=== PATIENT | male | born 1950 | race Caucasian/White ===

== ENCOUNTER 2016-10-31 11:49 | Inpatient (IN) | payer OTHER, SELFPAY ==
[2016-10-31 12:25] VITALS: BMI 21.5
[2016-10-31] MEDS ORDERED: Albuterol-Ipratrop 3 mg / 0.5 (3 ml) UD INH STA (12:29)
[2016-10-31] MEDS ORDERED: Albuterol-Ipratrop 3 mg / 0.5 (3 ml) UD ONE (12:31)
[2016-10-31 12:48] LABS: VENOUS BLOOD GAS BASE EXCESS 1.8 mmol/L (0.0-2.0); VENOUS BLOOD GAS PCO2 37 mmHg (40-60); VENOUS BLOOD PH 7.45 (7.32-7.43)
--- NOTE | 2016-10-31 12:53 | ED PDOC ---
HPI: Chest Pain Time Seen by Provider: 10/31/16 12:10 Chief Complaint (Nursing): Chest Pain Chief Complaint (Provider): Chest Pain History Per: Patient History/Exam Limitations: no limitations Onset/Duration Of Symptoms: Hrs (x1 hour prior to arrival) Current Symptoms Are (Timing): Still Present Severity: Moderate Quality: Pressure Associated Symptoms: Dyspnea, Other (associated b/l leg swelling, chills, dry cough, fever; denies nausea). denies: Nausea Additional Complaint(s): Preet Brown is a 66 year old male, with a past medical history of asthma, congestive heart failure, chronic obstructive pulmonary disease, pulmonary embolism, and pneumonia, who presents to the emergency department for the evaluation of left-sided chest pain, that the patient has been experiencing since this morning (10/31/2016). Pain is described as a heavy pressure inclusive of labored breathing. Associated shortness of breath, bilateral leg swelling that has been present for 1 month, chills, dry cough, and a fever are currently present. Denies nausea. Of note, patient reports that he ran out of his Albuterol pump today, which he uses for his chronic obstructive pulmonary disease. Patient has also had a rash for "a long time". PMD: none specified - Risk Factors PE Risk Factors: Pos: Previous PE, CHF Neg: Recent Major Surgery, Previous DVT Past Medical History Reviewed: Historical Data, Nursing Documentation, Vital Signs Vital Signs: Last Vital Signs Temp 99.2 F 10/31/16 15:11 Pulse 105 H 10/31/16 15:31 Resp 25 H 10/31/16 15:31 BP 144/83 10/31/16 15:31 Pulse Ox 98 10/31/16 15:31 - Medical History PMH: Asthma, CHF, COPD, Pneumonia, Pulmonary Embolism Denies: Chronic Kidney Disease - Surgical History Surgical History: No Surg Hx - Family History Family History: States: [place], Diabetes - Living Arrangements Living Arrangements: Other (non-domicile) - Social History Current smoker - smoking cessation education provided: Yes (1/2 a cigarette a day) Alcohol: Occasional - Immunization History Hx Tetanus Toxoid Vaccination: No Hx Influenza Vaccination: No Hx Pneumococcal Vaccination: No - Home Medications Home Medications: Ambulatory Orders Medication Instructions Recorded Albuterol HFA [Ventolin HFA 90 2 puff IH Q4H PRN 06/03/16 mcg/actuation (8 g)] Budesonide/Formoterol Fumarate 2 puff IH Q12H 06/03/16 [Symbicort 160-4.5 Mcg Inhaler] Montelukast [Singulair] 10 mg PO HS 06/03/16 Tiotropium [Spiriva] 18 mcg IH DAILY 06/03/16 Furosemide [Lasix] 40 mg PO DAILY #0 tab 06/07/16 Levofloxacin [Levaquin] 500 mg PO DAILY #7 tablet 06/07/16 Valsartan [Diovan] 160 mg PO DAILY #0 tab 06/07/16 amLODIPine [Norvasc] 5 mg PO DAILY #0 tab 06/07/16 guaiFENesin [Mucinex [place]] 600 mg PO Q12 #20 tab 06/07/16 Albuterol HFA [Ventolin HFA 90 2 puff IH Q4H #1 puff 08/15/16 mcg/actuation (8 g)] Azithromycin [Zithromax] 250 mg PO DAILY #6 tab 08/15/16 Methylprednisolone [Medrol Dose 4 mg PO DAILY #21 tab 08/15/16 Pack (21 tabs)] - Allergies Allergies/Adverse Reactions: Allergies Allergy/AdvReac Type Severity Reaction Status Date / Time No Known Allergies Allergy Verified 02/08/16 14:22 Review of Systems ROS Statement: Except As Marked, All Systems Reviewed And Found Negative Constitutional: Positive for: Fever, Chills Cardiovascular: Positive for: Chest Pain (left-sided), Edema (b/l leg swelling for x1 month) Respiratory: Positive for: Cough, Shortness of Breath. Negative for: Sputum Gastrointestinal: Negative for: Nausea Skin: Positive for: Rash Physical Exam - Reviewed Nursing Documentation Reviewed: Yes Vital Signs Reviewed: Yes - Physical Exam Appears: Positive for: Non-toxic, No Acute Distress Head Exam: Positive for: ATRAUMATIC, NORMOCEPHALIC Skin: Positive for: Normal Color, Warm, Dry, Rash (multiple diffuse plaque lesions, chronic) Neck: Positive for: Normal, Painless ROM Cardiovascular/Chest: Positive for: Regular Rate, Rhythm, Tachycardia. Negative for: Chest Non Tender (chest wall tenderness) Respiratory: Positive for: Wheezing (b/l expiratory, diffuse wheezing), Respiratory Distress (mild). Negative for: Normal Breath Sounds (b/l coarse breath sounds) Gastrointestinal/Abdominal: Positive for: Normal Exam, Soft. Negative for: Tenderness, Distended Extremity: Positive for: Normal ROM, Swelling (b/l legs, non-pitting; stasis dermatitis) Neurologic/Psych: Positive for: Alert, Oriented - Laboratory Results Result Diagrams: 10/31/16 12:45 10/31/16 14:20 - ECG ECG: Positive for: Interpreted By Me, Viewed By Me, Discussed With Lace Stripper ECG Rhythm: Positive for: Normal QRS, Normal ST Segment, Sinus Tachycardia Rate: 125 O2 Sat by Pulse Oximetry: 94 (RA) Pulse Ox Interpretation: Normal Medical Decision Making Medical Decision Makin:10 Initial Impression: chest pain and shortness of breath w/ fever Differential Diagnoses include, but are not limited to pneumonia, influenza, chronic obstructive pulmonary disease exacerbation, and congestive heart failure. Initial Plan: * Chest X-Ray * EKG * Venous Blood Gas Shock Panel * CBC * BMP * B-Type Natriuretic Peptide * Troponin I * Influenza A/B * Blood Culture * Albuterol/Ipratropium 3 ml INH * SOLU-Medrol 125 mg IVP * Reevaluation 12:17 EKG read, rate at 125. Normal QRS, Normal ST Segment, Sinus Tachycardia. Scribe Attestation: Documented by Andry Duarte, acting as a scribe for Maverick Hsu MD. Provider Scribe Attestation: All medical record entries made by the Scribe were at my direction and personally dictated by me. I have reviewed the chart and agree that the record accurately reflects my personal performance of the history, physical exam, medical decision making, and the department course for this patient. I have also personally directed, reviewed, and agree with the discharge instructions and disposition. Disposition - Clinical Impression Clinical Impression: Pneumonia, COPD exacerbation, Sepsis - Patient ED Disposition Is Patient to be Admitted: Yes Discussed With DrFrancis: Nahun Liang Doctor Will See Patient In The: ED Counseled Patient/Family Regarding: Studies Performed, Diagnosis - Disposition Disposition Time: 15:00 Condition: FAIR - Pt Status Changed To: Hospital Disposition Of: Inpatient - Admit Certification Admit to Inpatient:: After my assessment, the patient will require hospitalization for at least two midnights. This is because of the severity of symptoms shown, intensity of services needed, and/or the medical risk in this patient being treated as an outpatient. - POA Present On Arrival: None Core Measure Indicators: Pneumonia
[2016-10-31 14:05] LABS: BASO # 0.1 K/uL (0.0-0.2); BASO % 0.4 % (0.0-2.0); EOS # 0.2 K/uL (0.0-0.7); EOS % 1.2 % (0.0-4.0); HEMATOCRIT 34.5 % (35.0-51.0); LYMPH # 2.3 K/uL (1.0-4.3); LYMPH % 16.6 % (20.0-40.0); MEAN CELL VOLUME 83.5 fl (80.0-94.0); MEAN CORPUSCULAR HEMOGLOBIN 28.5 pg (27.0-31.0); MEAN CORPUSCULAR HGB CONC 34.2 g/dL (33.0-37.0); MEAN PLATELET VOLUME 8.4 fl (7.2-11.7); MONO # 1.2 K/uL (0.0-0.8); MONO % 8.4 % (0.0-10.0); NEUT # 10.1 K/uL (1.8-7.0); NEUT % 73.4 % (50.0-75.0); NRBC % 0.1 % (0.0-0.0); RED CELL DISTRIBUTION WIDTH 15.8 % (11.5-14.5); WHITE BLOOD COUNT 13.8 K/uL (4.8-10.8)
[2016-10-31] MEDS ORDERED: Sodium Chloride 0.9% 1,000 ML IV STA (14:45)
[2016-10-31 14:55] LABS: BLOOD UREA NITROGEN 15 mg/dl (9-20); CALCIUM 8.2 mg/dL (8.4-10.2); CARBON DIOXIDE 22 mmol/L (22-30); CHLORIDE 107 mmol/L (98-107); GFR AFRICAN-AMERICAN > 60; GLUCOSE,RANDOM 113 mg/dL (75-110); POTASSIUM 4.3 MMOL/L (3.6-5.0); SODIUM 142 mmol/l (132-148)
--- NOTE | 2016-10-31 15:29 | RAD ---
PROCEDURE: CHEST RADIOGRAPH, 1 VIEW HISTORY: chest pain COMPARISON: 08/15/2016. FINDINGS: LUNGS: Clear. PLEURA: No pneumothorax or pleural fluid seen. CARDIOVASCULAR: No radiographic findings to suggest acute or significant cardiovascular disease. OSSEOUS STRUCTURES: No significant abnormalities. Old healed right rib fractures. VISUALIZED UPPER ABDOMEN: Normal. OTHER FINDINGS: None. IMPRESSION: No active disease. No acute/significant interval changes.
[2016-10-31] MEDS ORDERED: Albuterol-Ipratrop 3 mg / 0.5 (3 ml) UD INH PRN (17:10)
--- NOTE | 2016-10-31 17:55 | CP.PCM.HP ---
History of Present Illness - History of Present Illness History of Present Illness: Pt is a 66 year old male, with a past medical history of COPD , hypertension, asthma, pulmonary embolism (not on anticoagulation because of history of hematoma), presented to the emergency department for the evaluation of left- sided chest pain, that started this morning. Pain is described as a heavy pressure not changed with movement associated with inclusive shortness of breath. States everything hurts, also reports bilateral leg swelling that has been present for 1 month, chills, dry cough, and a fever are currently present. Denies nausea, vomiting, dizziness. Of note, pt also has a diffuse rash appears raised and dry and scabbed, pt reports he has had the rash for over a month, but told nurse he has had it for a couple of weeks. No other complaints otherwise PCP- Last seen in [facility] in 2011 Present on Admission - Present on Admission Any Indicators Present on Admission: No Review of Systems - Review of Systems All systems: reviewed and no additional remarkable complaints except Review of Systems: Per HPI Past Patient History - Infectious Disease Hx of Infectious Diseases: None - Tetanus Immunizations Tetanus Immunization: Unknown - Past Medical History & Family History Past Medical History?: Yes - Past Social History Smoking Status: Former Smoker Alcohol: Occasional - CARDIAC Hx Congestive Heart Failure: Yes - PULMONARY Hx Asthma: Yes Hx Chronic Obstructive Pulmonary Disease (COPD): Yes Hx Pneumonia: Yes Hx Pulmonary Embolism: Yes - NEUROLOGICAL Hx Neurological Disorder: No - HEENT Hx HEENT Problems: No - RENAL Hx Chronic Kidney Disease: No - ENDOCRINE/METABOLIC Hx Endocrine Disorders: No - HEMATOLOGICAL/ONCOLOGICAL Hx Blood Disorders: No - INTEGUMENTARY Hx Dermatological Problems: No - MUSCULOSKELETAL/RHEUMATOLOGICAL Hx Musculoskeletal Disorders: No Hx Falls: No - GASTROINTESTINAL Hx Gastrointestinal Disorders: Yes Other/Comment: GI bleeding on last admission while on anti-coagulation - GENITOURINARY/GYNECOLOGICAL Hx Genitourinary Disorders: No - PSYCHIATRIC Hx Psychophysiologic Disorder: No Hx Substance Use: No - SURGICAL HISTORY Hx Surgeries: No - ANESTHESIA Hx Anesthesia: No Meds Allergies/Adverse Reactions: Allergies Allergy/AdvReac Type Severity Reaction Status Date / Time No Known Allergies Allergy Verified 02/08/16 14:22 Physical Exam - Constitutional Appears: No Acute Distress - Head Exam Head Exam: NORMOCEPHALIC - Eye Exam Eye Exam: Normal appearance - ENT Exam ENT Exam: Mucous Membranes Moist - Respiratory Exam Respiratory Exam: Prolonged Expiratory Phase, Wheezes - Cardiovascular Exam Cardiovascular Exam: Tachycardia, +S1, +S2. absent: Systolic Murmur - GI/Abdominal Exam GI & Abdominal Exam: Normal Bowel Sounds, Soft. absent: Tenderness - Extremities Exam Extremities exam: Positive for: pedal edema. Negative for: calf tenderness Additional comments: Upper and lower extremity lesions- diffused lesion, dry, some are raised , others appear to be healing scars - Neurological Exam Neurological exam: Alert, Oriented x3 - Skin Skin Exam: Dry, Rash Results - Vital Signs Recent Vital Signs: Last Vital Signs Temp 98.9 F 10/31/16 17:49 Pulse 102 H 10/31/16 17:49 Resp 23 10/31/16 17:49 BP 138/73 10/31/16 17:49 Pulse Ox 97 10/31/16 17:36 - Labs Result Diagrams: 10/31/16 12:45 10/31/16 14:20 Assessment & Plan - Assessment and Plan (Free Text) Assessment: 66 y/o male with history of COPD, PE and bladder hematoma admitted for clinical pneumonia as no Xray finding of active disease Plan: 1. Pneumonia- CAP clinical diagnosis, no active disease on Xray Started on levaquin in ED, will continue pt currently afebrile, monitor vitals 2. Upper and Lower extremity lesions DDX include : Lichen planus vs chronic plaque psoriasis If lichen planus- hepatitis planel ordered / follow up if psoriasis - consider starting petrolatum Consider Dermatology consult, as pt may need a biopsy 3. COPD exacerbation duonebs levaquine IV, steroids IV currently on 80mg Q12hrs 4. Leg swelling Echo from 05/2016 showed EF of 65% most likely venous insufficiency lasix 40mg daily 3.History of Pulmonary embolism diagnosed with PE on previous admission pt was initially anticoagulated but developed huge retroperitoneal hematoma on the left side there is no indication for IVC filter 4.Screening for diabetes Last HgbA1c was 7.2 was not started on treatment, repeat A1c ordered for AM, follow up 5. Tachycardia if it persist consider changing albuterol to Xopenex with improvement 6. Retroperitoneal hematoma -chronic pelvic Us showed stable hematoma in front of urinary bladder, 05/2016 7.Hypertension Diovan 160 mg daily Norvasc 5 mg daily 8. DVt prophylaxis SCD, given history of hematoma
[2016-10-31 18:32] LABS: RBC URINE < 1 /hpf (0-3); URINE BILIRUBIN NEGATIVE (NEGATIVE); URINE BLOOD NEGATIVE (NEGATIVE); URINE COLOR YELLOW (YELLOW); URINE GLUCOSE (UA) NEG (Normal); URINE KETONE NEGATIVE (NEGATIVE); URINE LEUKOCYTE ESTERASE NEG Leu/uL (Negative); URINE PROTEIN 100 mg/dL (NEGATIVE); URINE UROBILINOGEN 0.2-1.0 mg/dL (0.2-1.0); WBC URINE < 1 /hpf (0-5)
--- NOTE | 2016-10-31 19:16 | CARD ---
APPROVED REPORT EKG Measurement Heart [id number] <Conclusion> Sinus tachycardia Otherwise normal ECG
[2016-10-31] MEDS: methylPREDNISolone 80 MG in Sodium Chloride 0.9% 50 ML IVPB SCH (22:20)
[2016-11-01 07:25] LABS: HEMATOCRIT 35.7 % (35.0-51.0); MEAN CELL VOLUME 84.3 fl (80.0-94.0); MEAN CORPUSCULAR HEMOGLOBIN 27.9 pg (27.0-31.0); MEAN CORPUSCULAR HGB CONC 33.1 g/dL (33.0-37.0); WHITE BLOOD COUNT 10.5 K/uL (4.8-10.8)
[2016-11-01 08:09] LABS: ALKALINE PHOSPHATASE 59 U/L (38-126); ALT/SGPT 18 U/L (21-72); AST/SGOT 18 U/L (17-59); BILIRUBIN,TOTAL 0.6 mg/dl (0.2-1.3); BLOOD UREA NITROGEN 19 mg/dl (9-20); CALCIUM 8.3 mg/dL (8.4-10.2); CARBON DIOXIDE 23 mmol/L (22-30); CHLORIDE 107 mmol/L (98-107); CHOLESTEROL 153 mg/dL (0-199); GFR AFRICAN-AMERICAN > 60; GLUCOSE,RANDOM 175 mg/dL (75-110); POTASSIUM 4.3 MMOL/L (3.6-5.0); SODIUM 142 mmol/l (132-148); TOTAL PROTEIN 6.7 G/DL (6.3-8.2)
[2016-11-01 08:11] LABS: ALB/GLOB RATIO 0.9 (1.0-2.1)
[2016-11-01] MEDS ORDERED: Enoxaparin 40 mg Syringe SC SCH (09:00)
[2016-11-01] MEDS: methylPREDNISolone 80 MG in Sodium Chloride 0.9% 50 ML IVPB SCH ×2 (09:32→21:34)
[2016-11-01] MEDS: Tiotropium 18 mcg Cap For Inhalation IH SCH (10:00)
--- NOTE | 2016-11-01 10:57 | CP.PCM.PN ---
Subjective - Date & Time of Evaluation Date of Evaluation: 11/01/16 Time of Evaluation: 08:15 - Subjective Subjective: The patient is a 66 y/o man w/ a PMH of COPD, HTN, asthma, pulmonary embolism ( not on anticoagulation because of history of hematoma), presented to the ED for evaluation of left-sided chest pain, that started this morning prior to admission. The patient was seen this morning. There are no acute events overnight. The patient is not in acute distress. The patient reports some chest pain but is more concerned about his shortness of breath. The patient did report that he was able to sleep better. The patient reports his skin rash has been going on for "a couple of weeks". The patient denies headaches, dizziness, abdominal pain, nausea, vomiting, diarrhea, dysuria, and fevers. Objective - Vital Signs/Intake and Output Vital Signs (last 24 hours): Temp Pulse Resp BP Pulse Ox 97.6 F 92 H 18 149/79 98 11/01/16 08:00 11/01/16 09:31 11/01/16 08:00 11/01/16 09:31 11/01/16 08:00 - Medications Medications: Current Medications Albuterol/Ipratropium (Duoneb 3 Mg/0.5 Mg (3 Ml) Ud) 3 ml INH RQ4 PRN PRN Reason: Shortness of Breath Amlodipine Besylate (Norvasc) 5 mg PO DAILY [facility] Last Admin: 11/01/16 09:31 Dose: 5 mg Furosemide (Lasix) 40 mg PO DAILY [facility] Last Admin: 11/01/16 09:31 Dose: 40 mg Methylprednisolone 80 mg/ (Sodium Chloride) 51.28 mls @ 100 mls/hr IVPB Q12 [facility] Last Admin: 11/01/16 09:32 Dose: 100 mls/hr Levofloxacin/Dextrose (Levaquin 500mg) 100 mls @ 100 mls/hr IVPB DAILY [facility] Last Admin: 11/01/16 10:00 Dose: 100 mls/hr Montelukast Sodium (Singulair) 10 mg PO HS [facility] Last Admin: 10/31/16 22:21 Dose: 10 mg Tiotropium [place] (Spiriva) 18 mcg IH DAILY [facility] Last Admin: 11/01/16 10:00 Dose: 18 mcg Valsartan (Diovan) 160 mg PO DAILY [facility] Last Admin: 11/01/16 09:30 Dose: 160 mg - Labs Labs: 11/01/16 06:30 11/01/16 06:30 - Constitutional Appears: No Acute Distress - Head Exam Head Exam: ATRAUMATIC, NORMOCEPHALIC - ENT Exam ENT Exam: Mucous Membranes Moist - Respiratory Exam Respiratory Exam: Prolonged Expiratory Phase, Rhonchi, Wheezes. absent: Accessory Muscle Use, Chest Wall Tenderness, Respiratory Distress, Stridor - Cardiovascular Exam Cardiovascular Exam: REGULAR RHYTHM. absent: Tachycardia - GI/Abdominal Exam GI & Abdominal Exam: Soft, Normal Bowel Sounds. absent: Distended, Tenderness - Extremities Exam Extremities Exam: Pedal Edema. absent: Calf Tenderness, Tenderness - Neurological Exam Neurological Exam: Alert, Awake, Oriented x3 - Skin Skin Exam: Dry Additional comments: Upper and lower extremity lesions, and back: dry, silvery, some skin colored, some raised, some healing scars, no pain when peeled off, no bleeding Assessment and Plan - Assessment and Plan (Free Text) Assessment: The patient is a 66 y/o man with PMH of COPD, PE and bladder hematoma admitted for clinical pneumonia. Plan: 1. Pneumonia, CAP - clinical diagnosis - CXR 10/31/2016: no active disease - On levaquin 500 mg IV daily - currently afebrile, monitor vitals 2. Skin lesions (back, upper and lower extremities) - DDX include : Lichen planus vs chronic plaque psoriasis - follow up hepatitis panel - Consider biopsy of skin lesion - Start Clobetasol topical BID 3. COPD exacerbation - Duonebs Q4 - levaquin 500 mg IV daily - methylprednisolone 80 mg IV Q12h - started home medications monteleukast 10 mg PO HS and Tiotropium bromide 18 mcg IH daily 4. Lower Extremity Edema - Echo 05/2016: EF of 65%, LV normal size, thickness, function; very mild aortic stenosis, trivial mitral regurgitation, mild aortic regurgitation, and trace tricuspid regurgitation - most likely venous insufficiency - lasix 40mg daily 5. History of Pulmonary embolism - diagnosed with PE on previous admission - initially anti-coagulated but developed huge retroperitoneal hematoma on the left side - no indication for IVC filter 6. Screening for diabetes - Last HgbA1c was 7.2 (05/02/2016) - not started on treatment - Follow up repeat A1c 7. Retroperitoneal hematoma - chronic - pelvic Us showed stable hematoma in front of urinary bladder, 05/2016 8. Hypertension - stable - Home medication restarted, Diovan 160 mg daily and Norvasc 5 mg daily 9. DVT prophylaxis - SCD, given history of hematoma
[2016-11-01] MEDS: Albuterol-Ipratrop 3 mg / 0.5 (3 ml) UD INH SCH ×5 (11:59→23:42)
[2016-11-02] MEDS: Albuterol-Ipratrop 3 mg / 0.5 (3 ml) UD INH SCH ×5 (04:57→19:15)
--- NOTE | 2016-11-02 07:30 | CP.PCM.PN ---
Subjective - Date & Time of Evaluation Date of Evaluation: 11/02/16 Time of Evaluation: 07:28 - Subjective Subjective: The patient is a 66 y/o man w/ a PMH of COPD, HTN, asthma, pulmonary embolism ( not on anticoagulation because of history of hematoma), presented to the ED for evaluation of left-sided chest pain, that started the morning prior to admission. The patient was seen this morning. There are no acute events overnight. The patient is not in acute distress. The patient is laying in bed and saturating at 96% on room air. The patient reports improvement with breathing but still has some non-productive cough. The patient reports he received last treatment around 04:00. The patient denies headaches, dizziness, abdominal pain, nausea, vomiting, diarrhea, dysuria, and fevers. Objective - Vital Signs/Intake and Output Vital Signs (last 24 hours): Temp Pulse Resp BP Pulse Ox 97.8 F 85 20 134/65 96 11/02/16 05:16 11/02/16 05:16 11/02/16 05:16 11/02/16 05:16 11/02/16 05:16 - Medications Medications: Current Medications Albuterol/Ipratropium (Duoneb 3 Mg/0.5 Mg (3 Ml) Ud) 3 ml INH RQ4 [facility] Last Admin: 11/02/16 04:57 Dose: 3 ml Amlodipine Besylate (Norvasc) 5 mg PO DAILY [facility] Last Admin: 11/01/16 09:31 Dose: 5 mg Clobetasol Propionate (Temovate Cream) 1 applic TOP BID [facility] Last Admin: 11/01/16 17:02 Dose: 1 applic Furosemide (Lasix) 40 mg PO DAILY [facility] Methylprednisolone 80 mg/ (Sodium Chloride) 51.28 mls @ 100 mls/hr IVPB Q12 [facility] Last Admin: 11/01/16 21:34 Dose: 100 mls/hr Levofloxacin/Dextrose (Levaquin 500mg) 100 mls @ 100 mls/hr IVPB DAILY [facility] Last Admin: 11/01/16 10:00 Dose: 100 mls/hr Montelukast Sodium (Singulair) 10 mg PO HS [facility] Last Admin: 11/01/16 21:34 Dose: 10 mg Tiotropium [place] (Spiriva) 18 mcg IH DAILY [facility] Last Admin: 11/01/16 10:00 Dose: 18 mcg Valsartan (Diovan) 160 mg PO DAILY [facility] Last Admin: 11/01/16 09:30 Dose: 160 mg - Labs Labs: 11/01/16 06:30 11/01/16 06:30 - Constitutional Appears: No Acute Distress - Head Exam Head Exam: ATRAUMATIC, NORMOCEPHALIC - ENT Exam ENT Exam: Mucous Membranes Moist - Respiratory Exam Respiratory Exam: Prolonged Expiratory Phase, Rhonchi. absent: Accessory Muscle Use, Chest Wall Tenderness, Respiratory Distress, Stridor Additional comments: less wheeze compared to yesterday but still rhonchorous with transmitted upper airway sounds bilaterally - Cardiovascular Exam Cardiovascular Exam: REGULAR RHYTHM. absent: Tachycardia - GI/Abdominal Exam GI & Abdominal Exam: Soft, Normal Bowel Sounds. absent: Distended, Tenderness - Extremities Exam Extremities Exam: Pedal Edema. absent: Calf Tenderness, Tenderness - Neurological Exam Neurological Exam: Alert, Awake, Oriented x3 - Skin Skin Exam: Dry Additional comments: generalized skin lesions remain unchanged, patient received clobetasol cream Assessment and Plan - Assessment and Plan (Free Text) Assessment: The patient is a 66 y/o man with PMH of COPD, PE and bladder hematoma admitted for clinical pneumonia. Plan: 1. Pneumonia, CAP - clinical diagnosis - CXR 10/31/2016: no active disease - Day 2: levaquin 500 mg IV daily - currently afebrile, monitor vitals - influenza A/B negative - blood and urine culture show no growth 2. Skin lesions (back, upper and lower extremities) - DDX include : Lichen planus vs chronic plaque psoriasis - hepatitis panel negative - Consider biopsy of skin lesion - On Clobetasol topical BID 3. COPD exacerbation - Duonebs Q4 - levaquin 500 mg IV daily - Day 2: methylprednisolone 80 mg IV Q12h - home medications: monteleukast 10 mg PO HS and Tiotropium bromide 18 mcg IH daily 4. Lower Extremity Edema - Echo 05/2016: EF of 65%, LV normal size, thickness, function; very mild aortic stenosis, trivial mitral regurgitation, mild aortic regurgitation, and trace tricuspid regurgitation - most likely venous insufficiency - lasix 40mg daily 5. Screening for diabetes - Last HgbA1c was 7.2 (05/02/2016) - not started on treatment - repeat HgA1c 6.4 6. Hypertension - stable - Home medication: Diovan 160 mg daily and Norvasc 5 mg daily 7. DVT prophylaxis - SCD, due to history of hematoma - Pelvic U/S 05/2016: stable hematoma in front of urinary bladder - diagnosed with PE on previous admission - initially anti-coagulated but developed huge retroperitoneal hematoma on the left side - no indication for IVC filter
[2016-11-02] MEDS: methylPREDNISolone 80 MG in Sodium Chloride 0.9% 50 ML IVPB SCH ×2 (08:20→22:00)
[2016-11-02] MEDS: Tiotropium 18 mcg Cap For Inhalation IH SCH (09:21)
[2016-11-03] MEDS: Albuterol-Ipratrop 3 mg / 0.5 (3 ml) UD INH SCH ×7 (00:46→23:42)
--- NOTE | 2016-11-03 07:45 | CP.PCM.PN ---
Subjective - Date & Time of Evaluation Date of Evaluation: 11/03/16 Time of Evaluation: 07:05 - Subjective Subjective: The patient is a 66 y/o man w/ a PMH of COPD, HTN, asthma, pulmonary embolism ( not on anticoagulation because of history of hematoma), presented to the ED for evaluation of left-sided chest pain, that started the morning prior to admission. The patient was seen this morning. There are no acute events overnight. The patient is not in acute distress. The patient is laying in bed and saturating at 100% on NC 2L. The patient reports improvement with breathing but still continues to have non-productive cough. The patient reports he received last treatment around 04:00. The patient also started complaining of some dysuria that started last night. The patient denies headaches, dizziness, abdominal pain, nausea, vomiting, diarrhea, and fevers. Objective - Vital Signs/Intake and Output Vital Signs (last 24 hours): Temp Pulse Resp BP Pulse Ox 97.3 F L 83 18 145/73 100 11/03/16 05:00 11/03/16 05:00 11/03/16 05:00 11/03/16 05:00 11/03/16 05:00 - Medications Medications: Current Medications Albuterol/Ipratropium (Duoneb 3 Mg/0.5 Mg (3 Ml) Ud) 3 ml INH RQ4 [facility] Last Admin: 11/03/16 05:19 Dose: 3 ml Amlodipine Besylate (Norvasc) 5 mg PO DAILY [facility] Last Admin: 11/02/16 09:21 Dose: 5 mg Clobetasol Propionate (Temovate Cream) 1 applic TOP BID [facility] Last Admin: 11/02/16 16:44 Dose: Not Given Furosemide (Lasix) 40 mg PO DAILY [facility] Last Admin: 11/02/16 09:20 Dose: 40 mg Methylprednisolone 80 mg/ (Sodium Chloride) 51.28 mls @ 100 mls/hr IVPB Q12 [facility] Last Admin: 11/02/16 22:00 Dose: 100 mls/hr Levofloxacin/Dextrose (Levaquin 500mg) 100 mls @ 100 mls/hr IVPB DAILY [facility] Last Admin: 11/02/16 09:20 Dose: 100 mls/hr Montelukast Sodium (Singulair) 10 mg PO HS [facility] Last Admin: 11/02/16 22:00 Dose: 10 mg Tiotropium [place] (Spiriva) 18 mcg IH DAILY [facility] Last Admin: 11/02/16 09:21 Dose: 18 mcg Valsartan (Diovan) 160 mg PO DAILY [facility] Last Admin: 11/02/16 09:19 Dose: 160 mg - Labs Labs: 11/01/16 06:30 11/01/16 06:30 - Constitutional Appears: No Acute Distress - Head Exam Head Exam: ATRAUMATIC, NORMOCEPHALIC - ENT Exam ENT Exam: Mucous Membranes Moist - Respiratory Exam Respiratory Exam: Prolonged Expiratory Phase, Rhonchi, Wheezes. absent: Accessory Muscle Use, Chest Wall Tenderness, Decreased Breath Sounds, Rales, Respiratory Distress, Stridor Additional comments: diffuse rhonchi and wheeze - Cardiovascular Exam Cardiovascular Exam: REGULAR RHYTHM. absent: Tachycardia - GI/Abdominal Exam GI & Abdominal Exam: Soft, Normal Bowel Sounds. absent: Distended, Tenderness - Extremities Exam Extremities Exam: absent: Calf Tenderness, Tenderness Additional comments: diffuse, scaly, dry, bilateral upper and lower extremity skin lesions improved with clobetasol - Neurological Exam Neurological Exam: Alert, Awake, Oriented x3 - Skin Skin Exam: Dry, Warm Additional comments: diffuse skin lesions on back, chest, abdomen, bilateral upper and lower extremities Assessment and Plan - Assessment and Plan (Free Text) Assessment: The patient is a 66 y/o man with PMH of COPD, PE and bladder hematoma being treated for community acquired pneumonia and COPD exacerbation Plan: 1. Pneumonia, CAP - Day 3: levaquin 500 mg IV daily - consider switch IV to PO levaquin - remains afebrile - influenza A/B negative - blood and urine culture show no growth 2. Skin lesions (back, upper and lower extremities) - DDX include : Lichen planus vs chronic plaque psoriasis - hepatitis panel negative - Consider biopsy of skin lesion - Clobetasol topical BID 3. COPD exacerbation - Duonebs Q4 - levaquin 500 mg IV daily - Day 3: methylprednisolone 80 mg IV Q12h - Reduced methylprednisolone to 40 mg IV Q12h - home medications: monteleukast 10 mg PO HS and Tiotropium bromide 18 mcg IH daily 4. Dysuria - started last night - follow up UA and urine culture 5. Lower Extremity Edema - Echo 05/2016: EF of 65%, LV normal size, thickness, function; very mild aortic stenosis, trivial mitral regurgitation, mild aortic regurgitation, and trace tricuspid regurgitation - most likely venous insufficiency - lasix 40 mg daily 6. Hyperglycemia - HgA1c 6.4 - on methylprednisolone 80 mg IV Q12h 7. Hypertension - stable - Home medication: Diovan 160 mg daily and Norvasc 5 mg daily 8. DVT prophylaxis - SCD, due to history of hematoma - Pelvic U/S 05/2016: stable hematoma in front of urinary bladder - diagnosed with PE on previous admission - initially anti-coagulated but developed huge retroperitoneal hematoma on the left side - no indication for IVC filter
[2016-11-03] MEDS: Tiotropium 18 mcg Cap For Inhalation IH SCH (09:35)
[2016-11-03] MEDS: methylPREDNISolone 40 MG in Sodium Chloride 0.9% 50 ML IVPB SCH (21:46)
[2016-11-03] MEDS: guaiFENesin 600 mg ER Tab PO SCH (21:50)
[2016-11-04] MEDS: Albuterol-Ipratrop 3 mg / 0.5 (3 ml) UD INH SCH ×4 (04:53→15:23)
--- NOTE | 2016-11-04 08:54 | CP.PCM.PN ---
Subjective - Date & Time of Evaluation Date of Evaluation: 11/04/16 Time of Evaluation: 07:25 - Subjective Subjective: The patient is a 66 y/o man w/ a PMH of COPD, HTN, asthma, pulmonary embolism ( not on anticoagulation because of history of hematoma), presented to the ED for evaluation of left-sided chest pain, that started the morning prior to admission. The patient was seen this morning. There are no acute events overnight. The patient is not in acute distress. The patient is laying in bed and saturating at 98% on room air. The patient reports improvement with breathing but still continues to have non-productive cough. Patient denies anything coming up even after mucinex. The patient continues to complain of some dysuria that started 2 nights ago. The patient denies headaches, dizziness, abdominal pain, nausea, vomiting, diarrhea, and fevers. Objective - Vital Signs/Intake and Output Vital Signs (last 24 hours): Temp Pulse Resp BP Pulse Ox 97.8 F 72 18 125/67 98 11/04/16 08:26 11/04/16 08:26 11/04/16 08:26 11/04/16 08:26 11/04/16 08:26 - Medications Medications: Current Medications Albuterol/Ipratropium (Duoneb 3 Mg/0.5 Mg (3 Ml) Ud) 3 ml INH RQ4 [facility] Last Admin: 11/04/16 07:51 Dose: 3 ml Amlodipine Besylate (Norvasc) 5 mg PO DAILY [facility] Last Admin: 11/03/16 09:35 Dose: 5 mg Clobetasol Propionate (Temovate Cream) 1 applic TOP BID [facility] Last Admin: 11/03/16 18:09 Dose: 1 applic Furosemide (Lasix) 40 mg PO DAILY [facility] Last Admin: 11/03/16 09:34 Dose: 40 mg Guaifenesin (Mucinex [place]) 1,200 mg PO Q12 [facility] Last Admin: 11/03/16 21:50 Dose: 1,200 mg Methylprednisolone 40 mg/ (Sodium Chloride) 50.64 mls @ 100 mls/hr IVPB Q12 [facility] Last Admin: 11/03/16 21:46 Dose: 100 mls/hr Levofloxacin (Levaquin) 500 mg PO DAILY [facility] Montelukast Sodium (Singulair) 10 mg PO HS [facility] Last Admin: 11/03/16 21:44 Dose: 10 mg Tiotropium [place] (Spiriva) 18 mcg IH DAILY [facility] Last Admin: 11/03/16 09:35 Dose: 18 mcg Valsartan (Diovan) 160 mg PO DAILY [facility] Last Admin: 11/03/16 09:34 Dose: 160 mg - Labs Labs: 11/01/16 06:30 11/01/16 06:30 - Constitutional Appears: No Acute Distress - Head Exam Head Exam: ATRAUMATIC, NORMOCEPHALIC - ENT Exam ENT Exam: Mucous Membranes Moist - Respiratory Exam Respiratory Exam: Prolonged Expiratory Phase, Rhonchi, Wheezes. absent: Accessory Muscle Use, Chest Wall Tenderness, Decreased Breath Sounds, Respiratory Distress, Stridor - Cardiovascular Exam Cardiovascular Exam: REGULAR RHYTHM. absent: Tachycardia - GI/Abdominal Exam GI & Abdominal Exam: Soft, Normal Bowel Sounds. absent: Distended, Tenderness - Extremities Exam Extremities Exam: absent: Calf Tenderness, Pedal Edema, Tenderness Additional comments: diffuse, scaly, dry, bilateral upper and lower extremity skin lesions continues to with clobetasol - Neurological Exam Neurological Exam: Alert, Awake, Oriented x3 - Skin Skin Exam: Dry, Intact Additional comments: diffuse skin lesions on back, chest, abdomen, bilateral upper and lower extremities Assessment and Plan - Assessment and Plan (Free Text) Assessment: The patient is a 66 y/o man with PMH of COPD, PE and bladder hematoma being treated for community acquired pneumonia and COPD exacerbation Plan: 1. Pneumonia, CAP - Day 4: levaquin 500 mg PO daily - remains afebrile - influenza A/B negative - blood and urine culture show no growth 2. Skin lesions (back, upper and lower extremities) - DDX include : Lichen planus vs chronic plaque psoriasis - hepatitis panel negative - Consider biopsy of skin lesion - Clobetasol topical BID 3. COPD exacerbation - Duonebs Q4 - levaquin 500 mg IV daily - Day 4: methylprednisolone 40 mg IV Q12h - home medications: monteleukast 10 mg PO HS and Tiotropium bromide 18 mcg IH daily 4. Dysuria - 2 nights ago - follow up UA and urine culture 5. Lower Extremity Edema - Echo 05/2016: EF of 65%, LV normal size, thickness, function; very mild aortic stenosis, trivial mitral regurgitation, mild aortic regurgitation, and trace tricuspid regurgitation - most likely venous insufficiency - lasix 40 mg daily 6. Hyperglycemia - HgA1c 6.4 - on methylprednisolone 80 mg IV Q12h 7. Hypertension - stable - Home medication: Diovan 160 mg daily and Norvasc 5 mg daily 8. DVT prophylaxis - SCD, due to history of hematoma - Pelvic U/S 05/2016: stable hematoma in front of urinary bladder - diagnosed with PE on previous admission - initially anti-coagulated but developed huge retroperitoneal hematoma on the left side - no indication for IVC filter
[2016-11-04] MEDS ORDERED: levoFLOXacin 500 MG TAB PO SCH (09:00)
[2016-11-04] MEDS: methylPREDNISolone 40 MG in Sodium Chloride 0.9% 50 ML IVPB SCH (10:25)
[2016-11-04] MEDS: guaiFENesin 600 mg ER Tab PO SCH (10:26)
[2016-11-04] MEDS: Tiotropium 18 mcg Cap For Inhalation IH SCH (10:27)
[2016-11-04 11:56] LABS: RBC URINE < 1 /hpf (0-3); URINE BILIRUBIN NEGATIVE (NEGATIVE); URINE BLOOD NEGATIVE (NEGATIVE); URINE COLOR YELLOW (YELLOW); URINE GLUCOSE (UA) >=500 mg/dL (Normal); URINE KETONE NEGATIVE (NEGATIVE); URINE LEUKOCYTE ESTERASE NEG Leu/uL (Negative); URINE PROTEIN NEGATIVE (NEGATIVE); URINE UROBILINOGEN 0.2-1.0 mg/dL (0.2-1.0); WBC URINE < 1 /hpf (0-5)
--- NOTE | 2016-11-04 14:45 | CP.PCM.DIS ---
Provider - Provider Date of Admission: 10/31/16 15:36 Attending physician: Tennille Tavares MD Time Spent in preparation of Discharge (in minutes): 30 Diagnosis - Discharge Diagnosis (1) COPD exacerbation Status: Acute Priority: High (2) Community acquired bacterial pneumonia Status: Acute Hospital Course - Lab Results Lab Results: Micro Results 10/31/16 18:00 Urine Urine Culture - Final No Growth (<1,000 CFU/ML) Most Recent Lab Values WBC 10.5 K/uL (4.8-10.8) 11/01/16 06:30 RBC 4.24 Mil/uL (4.40-5.90) L 11/01/16 06:30 Hgb 11.8 g/dL (12.0-18.0) L 11/01/16 06:30 Hct 35.7 % (35.0-51.0) 11/01/16 06:30 MCV 84.3 fl (80.0-94.0) 11/01/16 06:30 MCH 27.9 pg (27.0-31.0) 11/01/16 06:30 MCHC 33.1 g/dL (33.0-37.0) 11/01/16 06:30 RDW 16.0 % (11.5-14.5) H 11/01/16 06:30 Plt Count 240 K/uL (130-400) 11/01/16 06:30 MPV 8.4 fl (7.2-11.7) 10/31/16 12:45 Neut % (Auto) 73.4 % (50.0-75.0) 10/31/16 12:45 Lymph % (Auto) 16.6 % (20.0-40.0) L 10/31/16 12:45 [place] % (Auto) 8.4 % (0.0-10.0) 10/31/16 12:45 Eos % (Auto) 1.2 % (0.0-4.0) 10/31/16 12:45 Baso % (Auto) 0.4 % (0.0-2.0) 10/31/16 12:45 Neut # 10.1 K/uL (1.8-7.0) H 10/31/16 12:45 Lymph # 2.3 K/uL (1.0-4.3) 10/31/16 12:45 [place] # 1.2 K/uL (0.0-0.8) H 10/31/16 12:45 Eos # 0.2 K/uL (0.0-0.7) 10/31/16 12:45 Baso # 0.1 K/uL (0.0-0.2) 10/31/16 12:45 pO2 44 mm/Hg (30-55) 10/31/16 12:26 VBG pH 7.45 (7.32-7.43) H 10/31/16 12:26 VBG pCO2 37 mmHg (40-60) L 10/31/16 12:26 VBG HCO3 25.9 mmol/L 10/31/16 12:26 VBG Total CO2 26.8 mmol/L (22-28) 10/31/16 12:26 VBG O2 Sat (Calc) 88.1 % (40-65) H 10/31/16 12:26 VBG Base Excess 1.8 mmol/L (0.0-2.0) 10/31/16 12:26 VBG Potassium 4.3 mmol/L (3.6-5.2) 10/31/16 12:26 A-a O2 Difference 59.0 mm/Hg 10/31/16 12:26 Sodium 138.0 mmol/L (132-148) 10/31/16 12:26 Chloride 109.0 mmol/L (98-107) H 10/31/16 12:26 Glucose 99 mg/dL (75-110) 10/31/16 12:26 Lactate 1.7 mmol/L (0.7-2.1) 10/31/16 12:26 FiO2 21.0 % 10/31/16 12:26 Blood Gas Comments Vbg 10/31/16 12:26 Crit Value Called To dr tahir martinez 10/31/16 12:26 Crit Value Called By 15 10/31/16: Crit Value Read Back Y 10/31/16 12: Blood Gas Notified Time 1247 10/31/16 12:26 Sodium 142 mmol/l (132-148) 11/01/16 06:30 Potassium 4.3 MMOL/L (3.6-5.0) 11/01/16 06:30 Chloride 107 mmol/L (98-107) 11/01/16 06:30 Carbon Dioxide 23 mmol/L (22-30) 11/01/16 06:30 Anion Gap 17 (10-20) 11/01/16 06:30 BUN 19 mg/dl (9-20) 11/01/16 06:30 Creatinine 0.8 mg/dL (0.8-1.5) 11/01/16 06:30 Est GFR ( Amer) > 60 11/01/16 06:30 Est GFR (Non-Af Amer) > 60 11/01/16 06:30 POC Glucose (mg/dL) 283 mg/dL (65-110) H 11/04/16 11:26 Random Glucose 175 mg/dL (75-110) H 11/01/16 06:30 Hemoglobin A1c 6.4 % (4.2-6.5) 11/01/16 10:40 Calcium 8.3 mg/dL (8.4-10.2) L 11/01/16 06:30 Total Bilirubin 0.6 mg/dl (0.2-1.3) 11/01/16 06:30 AST 18 U/L (17-59) 11/01/16 06:30 ALT 18 U/L (21-72) L 11/01/16 06:30 Alkaline Phosphatase 59 U/L (38-126) 11/01/16 06:30 Troponin I < 0.0120 ng/mL (0.00-0.120) 11/01/16 05:30 NT-Pro-B Natriuret Pep 501 pg/ml (0-900) 10/31/16 14:20 Total Protein 6.7 G/DL (6.3-8.2) 11/01/16 06:30 Albumin 3.1 g/dL (3.5-5.0) L 11/01/16 06:30 Globulin 3.6 gm/dL (2.2-3.9) 11/01/16 06:30 Albumin/Globulin Ratio 0.9 (1.0-2.1) L 11/01/16 06:30 Triglycerides 45 mg/DL (0-149) D 11/01/16 06:30 Cholesterol 153 mg/dL (0-199) 11/01/16 06:30 LDL Cholesterol Direct 87 mg/dL (0-129) 11/01/16 06:30 HDL Cholesterol 44 MG/DL (30-70) 11/01/16 06:30 Venous Blood Potassium 4.3 mmol/L (3.6-5.2) 10/31/16 12:26 Urine Color Yellow (YELLOW) 11/04/16 11:30 Urine Clarity Clear (Clear) 11/04/16 11:30 Urine pH 6.0 (5.0-8.0) 11/04/16 11:30 Ur Specific [place]on 1.021 (1.003-1.030) 11/04/16 11:30 Urine Protein Negative mg/dL (NEGATIVE) 11/04/16 11:30 Urine Glucose (UA) >=500 mg/dL (Normal) 11/04/16 11:30 Urine Ketones Negative mg/dL (NEGATIVE) 11/04/16 11:30 Urine Blood Negative (NEGATIVE) 11/04/16 11:30 Urine Nitrate Negative (NEGATIVE) 11/04/16 11:30 Urine Bilirubin Negative (NEGATIVE) 11/04/16 11:30 Urine Urobilinogen 0.2-1.0 mg/dL (0.2-1.0) 11/04/16 11:30 Ur Leukocyte Esterase Neg Chad/uL (Negative) 11/04/16 11:30 Urine RBC (Auto) < 1 /hpf (0-3) 11/04/16 11:30 Urine Microscopic WBC < 1 /hpf (0-5) 11/04/16 11:30 Ur Squamous Epith Cells < 1 /hpf (0-5) 11/04/16 11:30 Hepatitis A IgM Ab Negative (NEGATIVE) 11/01/16 06:30 Hep Bs Antigen Negative (NEGATIVE) 11/01/16 06:30 Hep B Core IgM Ab Negative (NEGATIVE) 11/01/16 06:30 Hepatitis C Antibody Negative (NEGATIVE) 11/01/16 06:30 Influenza Typ A,B (EIA) Negative for flu a/b (NEGATIVE) 10/31/16 12:20 - Hospital Course Hospital Course: The patient is a 66 y/o man with PMH of COPD, PE and bladder hematoma being treated for community acquired pneumonia and COPD exacerbation. The patient was seen in the ED and started on IV levaquin for CAP. The patient also received duonebs and IV steroids for COPD exacerbation. The patient had a CXR which showed no active disease; however, the patient had a COPD exacerbation and is severe in nature thus continuing the antibiotic (COPD Group D GOLD staging). The patient received duoneb treatment Q4 hours with improvement. The patient also had a diffuse dry, scaly rash that covered his back, torso, upper, and lower extremities. The patient was given clobetasol cream which provided relief and improvement. The patient also began to complain of mild dysuria 2 days after admission but vitals, physical exam, and repeat UA and urine culture show no signs of infection. The patient was counseled to avoid acidic foods and drinks that may cause dysuria when initiating urination. The patient will be discharged on a prednisone 20 mg PO taper (2 tabs daily for 4 days then1 tab daily for 5 days and then stop). The patient was counseled to re -apply for his benefits in order to receive his other home health maintenance medications. The patient is improved and has returned to respiratory baseline and the skin rash has improved with clobetasol cream. The patient has been seen , examined, and deemed medically fit with no contraindication for discharge home. The patient is to follow up with the [facility] for health maintenance. - Date & Time of H&P Date of H&P: 10/31/16 Time of H&P: 17:55 Discharge Exam - Head Exam Head Exam: ATRAUMATIC, NORMOCEPHALIC - Eye Exam Eye Exam: EOMI Pupil Exam: PERRL - ENT Exam ENT Exam: Mucous Membranes Moist - Respiratory Exam Respiratory Exam: Prolonged Expiratory Phase, Rhonchi, Wheezes. absent: Accessory Muscle Use, Chest Wall Tenderness, Decreased Breath Sounds, Respiratory Distress, Stridor - Cardiovascular Exam Cardiovascular Exam: REGULAR RHYTHM. absent: Tachycardia - GI/Abdominal Exam GI & Abdominal Exam: Normal Bowel Sounds, Soft. absent: Distended, Tenderness - Extremities Exam Additional comments: diffuse, scaly, dry, bilateral upper and lower extremity skin lesions continues to improve with clobetasol - Neurological Exam Neurological exam: Alert, Oriented x3 Additional comments: ambulates with assistance of cane - Skin Skin Exam: Dry, Intact Discharge Plan - Follow Up Plan Condition: IMPROVED Disposition: HOME/ ROUTINE Instructions: Community Acquired Pneumonia (DC) Referrals: [facility] [Outside]
[2016-11-04 15:55] VITALS: BP 122/76; PULSE 101; RESP 20; TEMP 97.5; O2SAT 98
== END 2016-11-04 18:25 | disposition home or self-care (01) | DRG 541 ==
LOC: H.ER 11:49 → H.ERHOLD 15:36 → H.TEL 18:26
PROVIDERS: ADMIT Family Medicine Geriatric Medicine; ATTEND Family Medicine Geriatric Medicine
DX: J44.0 Chronic obstructive pulmonary disease with (acute) lower respiratory infection (principal); J15.9 Unspecified bacterial pneumonia; I11.0 Hypertensive heart disease with heart failure; I50.9 Heart failure, unspecified; J44.1 Chronic obstructive pulmonary disease with (acute) exacerbation; J45.909 Unspecified asthma, uncomplicated; I87.2 Venous insufficiency (chronic) (peripheral); Z86.711 Personal history of pulmonary embolism; F17.200 Nicotine dependence, unspecified, uncomplicated; R30.0 Dysuria; R73.9 Hyperglycemia, unspecified; L98.9 Disorder of the skin and subcutaneous tissue, unspecified; R00.0 Tachycardia, unspecified

== ENCOUNTER 2017-02-13 11:07 | Observation (INO) | payer MEDICAID, SELFPAY ==
[2017-02-13 11:07] VITALS: BMI 27.4
[2017-02-13 11:24] VITALS: TEMP 98.9
[2017-02-13] MEDS ORDERED: Albuterol-Ipratrop 3 mg / 0.5 (3 ml) UD INH STA ×2 (11:53)
--- NOTE | 2017-02-13 12:04 | ED PDOC ---
HPI: SOB/CHF/COPD Time Seen by Provider: 02/13/17 11:44 Chief Complaint (Nursing): Chest Pain Chief Complaint (Provider): shortness of breath History Per: Patient History/Exam Limitations: no limitations Onset/Duration Of Symptoms: Mins (x 20) Additional Complaint(s): Preet Borwn is a 66 year old male, with a previous medical history of COPD, who presents to the ED with complaints of shortness of breath, sore throat and bilateral leg swelling which started 20 minutes prior to [place]. Patient denies any fever, coughing or chest pain. PMD: none provided Past Medical History Reviewed: Historical Data, Nursing Documentation, Vital Signs Vital Signs: Last Vital Signs Temp 98.9 F 02/13/17 19:21 Pulse 97 H 02/13/17 19:21 Resp 18 02/13/17 19:21 BP 148/87 02/13/17 19:21 Pulse Ox 100 02/13/17 19:21 - Medical History PMH: Asthma, CHF, COPD, Pneumonia, Pulmonary Embolism Denies: HIV, Chronic Kidney Disease - Family History Family History: States: Unknown Family Hx, [place], Diabetes - Immunization History Hx Tetanus Toxoid Vaccination: No Hx Influenza Vaccination: No Hx Pneumococcal Vaccination: No - Home Medications Home Medications: Ambulatory Orders Medication Instructions Recorded Albuterol HFA [Ventolin HFA 90 2 puff IH H5IADIL #1 puff 01/11/17 mcg/actuation (8 g)] Ammonium Lactate 12% [Lac-Hydrin 12 % TOP BID #1 01/11/17 12% Lotion (225 g)] Betamethasone Valerate 0.1% 0.1 % TOP BID #1 bottle 01/11/17 Ergocalciferol [Drisdol 50,000 1 cap PO Q7D #30 cap 01/11/17 Intl Units Cap] Fluticasone Propionate [Flovent 0.11 mg IH DAILY #1 ml 01/11/17 Hfa] Lisinopril [Prinivil] 10 mg PO DAILY #30 tablet 01/11/17 amLODIPine [Norvasc] 5 mg PO DAILY #30 tab 01/11/17 metFORMIN [glucOPHAGE] 500 mg PO BID #60 tab 01/11/17 Albuterol HFA [Ventolin HFA 90 2 puff IH [id number] PRN #1 bottle 02/13/17 mcg/actuation (8 g)] - Allergies Allergies/Adverse Reactions: Allergies Allergy/AdvReac Type Severity Reaction Status Date / Time No Known Allergies Allergy Verified 12/18/16 18:49 Review of Systems ROS Statement: Except As Marked, All Systems Reviewed And Found Negative Constitutional: Negative for: Fever, Chills ENT: Positive for: Throat Pain Cardiovascular: Negative for: Chest Pain Respiratory: Positive for: Shortness of Breath. Negative for: Cough Musculoskeletal: Positive for: Other (bilateral leg swelling ) Physical Exam - Reviewed Nursing Documentation Reviewed: Yes Vital Signs Reviewed: Yes - Physical Exam Appears: Positive for: Well, Non-toxic, No Acute Distress Head Exam: Positive for: ATRAUMATIC, NORMAL INSPECTION, NORMOCEPHALIC Skin: Positive for: Normal Color, Warm, Dry Eye Exam: Positive for: Normal appearance, EOMI, PERRL ENT: Positive for: Normal ENT Inspection Neck: Positive for: Normal, Painless ROM, Supple Cardiovascular/Chest: Positive for: Regular Rate, Rhythm Respiratory: Positive for: Wheezing (bilateral) Gastrointestinal/Abdominal: Positive for: Normal Exam, Bowel Sounds, Soft. Negative for: Tenderness Back: Positive for: Normal Inspection Extremity: Positive for: Normal ROM, Other (bilateral lower extremities with chronic hyperpigmented hypertrophic skin changes. ). Negative for: Calf Tenderness, Deformity Neurologic/Psych: Positive for: Alert, Oriented. Negative for: Motor/Sensory Deficits - Laboratory Results Result Diagrams: 02/13/17 12:39 02/13/17 12:39 - ECG O2 Sat by Pulse Oximetry: 98 (RA) Pulse Ox Interpretation: Normal Medical Decision Making Medical Decision Making: Initial Impression: COPD exacerbation Initial Plan: * EKG * D-dimer * Troponin I * CXR * PTT * PT * medrol * duo-neb * peak flow pre/post treatment * US duplex lower extremities * reevaluation Scribe Attestation: Documented by Ana Brown, acting as a scribe for Ana Baxter MD. Provider Scribe Attestation: All medical record entries made by the Scribe were at my direction and personally dictated by me. I have reviewed the chart and agree that the record accurately reflects my personal performance of the history, physical exam, medical decision making, and the department course for this patient. I have also personally directed, reviewed, and agree with the discharge instructions and disposition. ED OBSERVATION Date of observation admission: 02/13/17 Time of observation admission: 13:00 - Observation admission statement Patient is being placed in observation because:: Patient is pending CT and repeat troponin. - Progress Note Progress Note: 02/13/17 16:[address] CT chest read. 02/13/17 18:15 Stable and resting comfortably. Disposition - Clinical Impression Clinical Impression: COPD (chronic obstructive pulmonary disease) - Patient ED Disposition Is Patient to be Admitted: No - Disposition Disposition Time: 19:00 Condition: STABLE
[2017-02-13] MEDS ORDERED: Albuterol-Ipratrop 3 mg / 0.5 (3 ml) UD ONE (12:48)
[2017-02-13 12:52] LABS: BASO # 0.1 K/uL (0.0-0.2); BASO % 0.9 % (0.0-2.0); EOS # 0.3 K/uL (0.0-0.7); EOS % 2.6 % (0.0-4.0); HEMATOCRIT 38.8 % (35.0-51.0); LYMPH % 27.8 % (20.0-40.0); MEAN CELL VOLUME 86.6 fl (80.0-94.0); MEAN CORPUSCULAR HEMOGLOBIN 28.2 pg (27.0-31.0); MEAN CORPUSCULAR HGB CONC 32.6 g/dL (33.0-37.0); MEAN PLATELET VOLUME 8.6 fl (7.2-11.7); MONO # 1.4 K/uL (0.0-0.8); MONO % 12.8 % (0.0-10.0); NEUT % 55.9 % (50.0-75.0); RED CELL DISTRIBUTION WIDTH 15.5 % (11.5-14.5); WHITE BLOOD COUNT 10.7 K/uL (4.8-10.8)
[2017-02-13 13:08] LABS: ALKALINE PHOSPHATASE 59 U/L (38-126); ALT/SGPT 23 U/L (21-72); AST/SGOT 27 U/L (17-59); BILIRUBIN,TOTAL 0.5 mg/dl (0.2-1.3); BLOOD UREA NITROGEN 12 mg/dl (9-20); CALCIUM 9.2 mg/dL (8.4-10.2); CARBON DIOXIDE 25 mmol/L (22-30); CHLORIDE 107 mmol/L (98-107); GFR AFRICAN-AMERICAN > 60; GLUCOSE,RANDOM 93 mg/dL (75-110); POTASSIUM 4.2 MMOL/L (3.6-5.0); SODIUM 140 mmol/l (132-148); TOTAL PROTEIN 7.3 G/DL (6.3-8.2)
[2017-02-13 13:10] LABS: PARTIAL THROMBOPLASTIN TIME 29.2 Seconds (25.6-37.1)
--- NOTE | 2017-02-13 14:04 | RAD ---
HISTORY: SOB COMPARISON: 11/22/2016 TECHNIQUE: Chest PA and lateral FINDINGS: LUNGS: No active pulmonary disease. PLEURA: No significant pleural effusion identified. No pneumothorax apparent. CARDIOVASCULAR: Normal. OSSEOUS STRUCTURES: No significant abnormalities. VISUALIZED UPPER ABDOMEN: Normal. OTHER FINDINGS: None. IMPRESSION: No active disease.
[2017-02-13] MEDS ORDERED: Iodixanol 320 MG/ML 100 ML BOTTLE IV ONE (14:34)
[2017-02-13] MEDS ORDERED: Sodium Chloride 0.9% 50 ML IV ONE (14:34)
[2017-02-13 19:26] VITALS: BP 148/87; PULSE 97; RESP 18
--- NOTE | 2017-02-14 08:37 | CT ---
PROCEDURE: CT Chest with contrast (Pulmonary Angiogram) HISTORY: SOB COMPARISON: None available. TECHNIQUE: Axial computed tomography images were obtained of the chest in the pulmonary arterial phase of enhancement. Coronal and sagittal reformatted images were created and reviewed. Intravenous contrast dose: 100 cc of Omnipaque 350 Radiation dose: Total exam DLP = 465 mGy-cm. This CT exam was performed using one or more of the following dose reduction techniques: Automated exposure control, adjustment of the mA and/or kV according to patient size, and/or use of iterative reconstruction technique. FINDINGS: PULMONARY ARTERIES: Unremarkable. No pulmonary embolism. AORTA: No acute findings. No thoracic aortic aneurysm. LUNGS: Paraseptal bullous emphysema. 3 millimeter right lower lobe nodule for which 1 year follow-up is recommended. PLEURAL SPACES: Unremarkable. No effusion or pneuomothorax. HEART: Unremarkable. No cardiomegaly. No significant pericardial effusion. LYMPH NODES: No lymphadenopathy. BONES, CHEST WALL: Unremarkable. No fracture or destructive lesion OTHER FINDINGS: Unremarkable. IMPRESSION: Paraseptal bullous emphysema. 3 millimeter right lower lobe nodule for which 1 year follow-up is recommended. No pulmonary embolism.
--- NOTE | 2017-02-14 13:20 | CARD ---
APPROVED REPORT EKG Measurement Heart [id number] <Conclusion> Sinus tachycardia Cannot rule out Inferior infarct, age undetermined-not diagnostic Abnormal ECG
[2017-02-14 16:08] VITALS: O2SAT 98
--- NOTE | 2017-02-15 09:53 | US ---
PROCEDURE: Bilateral lower extremity venous duplex Doppler. HISTORY: BLE swelling COMPARISON: 06/03/2016 and 04/14/2016. TECHNIQUE: Bilateral common femoral, superficial femoral, popliteal and posterior tibial veins were evaluated. Flow was assessed with color Doppler, compressibility, assessment of phasic flow and augmentation response. FINDINGS: COMMON FEMORAL VEIN: Right CFV: Unremarkable. Left CFV: Unremarkable. SUPERFICIAL FEMORAL VEIN: Right SFV: Unremarkable. Left SFV: Unremarkable. POPLITEAL VEIN: Right Popliteal: Unremarkable. Left Popliteal: Unremarkable. POSTERIOR TIBIAL VEIN: Right PTV: Unremarkable. Left PTV: Unremarkable. OTHER FINDINGS: None. IMPRESSION: No evidence of deep venous thrombosis.
== END 2017-02-13 19:21 | disposition home or self-care (01) ==
LOC: H.ER 11:07 → H.EROBSV 16:34
PROVIDERS: ADMIT Emergency Medicine; ATTEND Emergency Medicine
DX: J44.1 Chronic obstructive pulmonary disease with (acute) exacerbation (principal); I50.9 Heart failure, unspecified; Z86.711 Personal history of pulmonary embolism; Z87.01 Personal history of pneumonia (recurrent); Z79.899 Other long term (current) drug therapy; J02.9 Acute pharyngitis, unspecified; M79.89 Other specified soft tissue disorders
CPT/HCPCS: 71020; 71275; 80053; 84484; 85025; 85378; 85610; 85730; 93005; 93970; 94150; 94640; 96374; 99285; G0378; J2930; Q9967

== ENCOUNTER 2017-03-29 12:04 | Inpatient (IN) | payer OTHER ==
[2017-03-29 12:04] VITALS: BMI 27.4
[2017-03-29] MEDS ORDERED: Albuterol-Ipratrop 3 mg / 0.5 (3 ml) UD ONE ×2 (12:18→13:37)
[2017-03-29] MEDS ORDERED: Albuterol-Ipratrop 3 mg / 0.5 (3 ml) UD INH STA ×2 (12:25→12:26)
[2017-03-29 13:19] LABS: BASO # 0.1 K/uL (0.0-0.2); BASO % 0.5 % (0.0-2.0); EOS # 0.3 K/uL (0.0-0.7); EOS % 2.4 % (0.0-4.0); HEMATOCRIT 34.1 % (35.0-51.0); LYMPH # 2.8 K/uL (1.0-4.3); LYMPH % 21.7 % (20.0-40.0); MEAN CELL VOLUME 86.8 fl (80.0-94.0); MEAN CORPUSCULAR HGB CONC 32.3 g/dL (33.0-37.0); MEAN PLATELET VOLUME 7.9 fl (7.2-11.7); MONO # 1.3 K/uL (0.0-0.8); MONO % 9.9 % (0.0-10.0); NEUT # 8.5 K/uL (1.8-7.0); NEUT % 65.5 % (50.0-75.0); NRBC % 0.1 % (0.0-0.0)
[2017-03-29 13:22] LABS: ALKALINE PHOSPHATASE 57 U/L (38-126); ALT/SGPT 25 U/L (21-72); AST/SGOT 38 U/L (17-59); BILIRUBIN,TOTAL 0.6 mg/dl (0.2-1.3); BLOOD UREA NITROGEN 9 mg/dl (9-20); CALCIUM 8.6 mg/dL (8.4-10.2); CARBON DIOXIDE 22 mmol/L (22-30); CHLORIDE 107 mmol/L (98-107); GFR AFRICAN-AMERICAN > 60; GLUCOSE,RANDOM 92 mg/dL (75-110); SODIUM 142 mmol/l (132-148); TOTAL PROTEIN 7.1 G/DL (6.3-8.2)
[2017-03-29 13:24] LABS: POTASSIUM 4.5 MMOL/L (3.6-5.0)
--- NOTE | 2017-03-29 13:25 | ED PDOC ---
HPI: SOB/CHF/COPD Time Seen by Provider: 03/29/17 12:21 Chief Complaint (Nursing): Shortness Of Breath Chief Complaint (Provider): Shortness of breath History Per: Patient History/Exam Limitations: no limitations Onset/Duration Of Symptoms: Days (4-5) Additional Complaint(s): Patient is a 66 y/o male with a past medical history of chronic obstructive pulmonary disease, hypertension, and diabetes, presenting to the emergency department for shortness of breath with associated wheezing, productive cough, and generalized weakness ongoing for 4-5 days. Denies taking medication at home , pain, and other complaints. PCP: none provided. Past Medical History Reviewed: Historical Data, Nursing Documentation, Vital Signs Vital Signs: Last Vital Signs Temp 98 F 04/02/17 12:00 Pulse 86 04/02/17 12:00 Resp 20 04/02/17 12:00 BP 123/65 04/02/17 12:00 Pulse Ox 96 04/02/17 12:00 - Medical History PMH: Asthma, CHF, COPD, Diabetes, HTN, Pneumonia, Pulmonary Embolism Denies: HIV, Chronic Kidney Disease - Surgical History Surgical History: No Surg Hx - Family History Family History: States: Unknown Family Hx, MD, Diabetes - Immunization History Hx Tetanus Toxoid Vaccination: No Hx Influenza Vaccination: No Hx Pneumococcal Vaccination: No - Home Medications Home Medications: Ambulatory Orders Medication Instructions Recorded No Known Home Med 03/29/17 - Allergies Allergies/Adverse Reactions: Allergies Allergy/AdvReac Type Severity Reaction Status Date / Time No Known Allergies Allergy Verified 12/18/16 18:49 Review of Systems ROS Statement: Except As Marked, All Systems Reviewed And Found Negative Respiratory: Positive for: Cough, Shortness of Breath, Wheezing Neurological: Positive for: Weakness (generalized) Physical Exam - Reviewed Nursing Documentation Reviewed: Yes Vital Signs Reviewed: Yes - Physical Exam Appears: Positive for: Non-toxic, No Acute Distress Head Exam: Positive for: ATRAUMATIC, NORMAL INSPECTION, NORMOCEPHALIC Skin: Positive for: Warm, Dry (with psoriatic changes to skin, diffusely with light lichenification of lower extremities) Eye Exam: Positive for: Normal appearance Neck: Positive for: Normal, Painless ROM, Supple Cardiovascular/Chest: Positive for: Regular Rate, Rhythm. Negative for: Murmur Respiratory: Positive for: Accessory Muscle Use, Wheezing (bilateral), Respiratory Distress (mild) Extremity: Positive for: Normal ROM. Negative for: Pedal Edema Neurologic/Psych: Positive for: Alert, Oriented (x3) - Laboratory Results Result Diagrams: 04/01/17 18:20 04/01/17 18:20 Medical Decision Making Medical Decision Making: Time: 13:14 Initial impression: Shortness of breath. Will pursue workup for pneumonia and respiratory failure. Initial plan: Labs Chest X-Ray Tylenol 650 mg PO Right Hip X-ray Reevaluation Time: 14:06 --Patient will be admitted inpatient for severe sepsis, clinical pneumonia with COPD exacerbation, and respiratory failure, under the service of Dr. Silverio Guzman Time: 14:43 Chest X-Ray: FINDINGS: LUNGS: No active pulmonary disease. PLEURA: No significant pleural effusion identified. No pneumothorax apparent. CARDIOVASCULAR: Normal. OSSEOUS STRUCTURES: No significant abnormalities. VISUALIZED UPPER ABDOMEN: Normal. OTHER FINDINGS: None. IMPRESSION: No active disease. Scribe Attestation: Documented by Stephanie Gifford & Shobha Fowler, acting as a scribe for Beau Espinoza DO. Provider Scribe Attestation: All medical record entries made by the Scribe were at my direction and personally dictated by me. I have reviewed the chart and agree that the record accurately reflects my personal performance of the history, physical exam, medical decision making, and the department course for this patient. I have also personally directed, reviewed, and agree with the discharge instructions and disposition. Disposition - Clinical Impression Clinical Impression: COPD exacerbation, Pneumonia, Severe sepsis - Patient ED Disposition Is Patient to be Admitted: Yes Counseled Patient/Family Regarding: Studies Performed, Diagnosis - Disposition Disposition Time: 14:41 Condition: GUARDED - Pt Status Changed To: Hospital Disposition Of: Inpatient - Admit Certification Admit to Inpatient:: After my assessment, the patient will require hospitalization for at least two midnights. This is because of the severity of symptoms shown, intensity of services needed, and/or the medical risk in this patient being treated as an outpatient. - POA Present On Arrival: Poor Glycemic Control
[2017-03-29 13:50] LABS: VENOUS BLOOD GAS PCO2 43 mmHg (40-60); VENOUS BLOOD PH 7.38 (7.32-7.43)
[2017-03-29] MEDS ORDERED: Sodium Chloride 0.9% 1,000 ML IV STA (14:07)
[2017-03-29] MEDS ORDERED: Azithromycin 500 MG in Sodium Chloride 0.9% 250 ML IVPB STA (14:08)
[2017-03-29] MEDS ORDERED: cefTRIAXone (Rocephin) 1 gm Inj ONE (14:27)
--- NOTE | 2017-03-29 14:45 | RAD ---
HISTORY: cough COMPARISON: No prior. TECHNIQUE: Chest PA and lateral FINDINGS: LUNGS: No active pulmonary disease. PLEURA: No significant pleural effusion identified. No pneumothorax apparent. CARDIOVASCULAR: Normal. OSSEOUS STRUCTURES: No significant abnormalities. VISUALIZED UPPER ABDOMEN: Normal. OTHER FINDINGS: None. IMPRESSION: No active disease.
[2017-03-29 15:07] LABS: RBC URINE 5 /hpf (0-3); URINE BILIRUBIN NEGATIVE (NEGATIVE); URINE BLOOD SMALL (NEGATIVE); URINE COLOR YELLOW (YELLOW); URINE GLUCOSE (UA) NEG (Normal); URINE KETONE NEGATIVE (NEGATIVE); URINE LEUKOCYTE ESTERASE NEG Leu/uL (Negative); URINE PROTEIN 30 mg/dL (NEGATIVE); URINE UROBILINOGEN 0.2-1.0 mg/dL (0.2-1.0); WBC URINE < 1 /hpf (0-5)
[2017-03-29] MEDS ORDERED: Albuterol-Ipratrop 3 mg / 0.5 (3 ml) UD INH PRN (15:19)
--- NOTE | 2017-03-29 16:12 | CP.PCM.HP ---
History of Present Illness - History of Present Illness History of Present Illness: 66 year old male, homeless with a past medical history of COPD , hypertension, asthma, pulmonary embolism (not on anticoagulation because of history of retroperotineal hematoma) s/p IVC filter, psoriasis who presents to ED c/o worsening baseline short of breath since today morning, associated with subjective fever, chills, chest pain with inspiration, productive cough associated with brown/green sputum, nausea followed with 2 times non bloody vomits, and 1 episode of non bloody diarrhea yesterday. PMD none PMHx - CPOD, DM, HTN, Asthma, PE (IVC filter), psoriasis Meds - does not take any because he does not have money to fill them Allergies - NKDA Surg - none Fam Hx - unknown Social - 30 pack year history quit 1 year ago used to smoke 3-4 packs a day, used to drink a lot, denies drug use. he stays at a friends house during the week [facility] [place] [facility]. he goes to the [facility] daily for meals and walks there. ED course: VS: 99.8 F, HR: 134, RR: 24 PE: diffuse, bilateral wheezes and rhonchi, no rales skin changes, dry skin, chronic edema b/l lower ext Psoriasis plaques all over body on trunk and all extremities Labs: WBC: 13.0, CBC: 11.0/34.1, lactate: 2.2 CXR: no active disease treatment:duoneb x 2, solu-medrol 125 mg IVP once, Rocephin 1 gm IV once, Azithromycin 500 mg once Present on Admission - Present on Admission Any Indicators Present on Admission: No History of DVT/PE: Yes Review of Systems - Review of Systems All systems: reviewed and no additional remarkable complaints except (as per HPI ) Past Patient History - Infectious Disease Hx of Infectious Diseases: None - Tetanus Immunizations Tetanus Immunization: Unknown - Past Medical History & Family History Past Medical History?: Yes - Past Social History Smoking Status: Former Smoker - CARDIAC Hx Congestive Heart Failure: Yes Hx Hypertension: Yes - PULMONARY Hx Asthma: Yes Hx Chronic Obstructive Pulmonary Disease (COPD): Yes Hx Pneumonia: Yes Hx Pulmonary Embolism: Yes - NEUROLOGICAL Hx Neurological Disorder: No - HEENT Hx HEENT Problems: No - RENAL Hx Chronic Kidney Disease: No - ENDOCRINE/METABOLIC Hx Endocrine Disorders: No - HEMATOLOGICAL/ONCOLOGICAL Hx Human Immunodeficiency Virus (HIV): No - INTEGUMENTARY Hx Dermatological Problems: Yes (GENERALIZED SKIN RASH) - MUSCULOSKELETAL/RHEUMATOLOGICAL Hx Musculoskeletal Disorders: Yes Hx Falls: Yes - GASTROINTESTINAL Hx Gastrointestinal Disorders: Yes Other/Comment: GI bleeding on last admission while on anti-coagulation - GENITOURINARY/GYNECOLOGICAL Hx Genitourinary Disorders: No - PSYCHIATRIC Hx Psychophysiologic Disorder: No Hx Substance Use: No - SURGICAL HISTORY Hx Surgeries: No - ANESTHESIA Hx Anesthesia: No Meds Allergies/Adverse Reactions: Allergies Allergy/AdvReac Type Severity Reaction Status Date / Time No Known Allergies Allergy Verified 12/18/16 18:49 Physical Exam - Constitutional Appears: No Acute Distress - ENT Exam ENT Exam: Mucous Membranes Moist - Respiratory Exam Respiratory Exam: Rhonchi, Wheezes, NORMAL BREATHING PATTERN. absent: Rales - Cardiovascular Exam Cardiovascular Exam: REGULAR RHYTHM, +S1, +S2 - GI/Abdominal Exam GI & Abdominal Exam: Normal Bowel Sounds, Soft. absent: Distended, Guarding, Tenderness - Extremities Exam Extremities exam: Positive for: pedal edema Additional comments: see skin exam - Neurological Exam Neurological exam: Alert, Oriented x3 Results - Vital Signs Recent Vital Signs: Last Vital Signs Temp 99.8 F H 03/29/17 12:09 Pulse 134 H 03/29/17 12:09 Resp 26 H 03/29/17 13:34 BP 146/63 03/29/17 12:09 Pulse Ox - Labs Result Diagrams: 03/29/17 13:00 03/29/17 13:00 Labs: Laboratory Results - last 24 hr 03/29/17 14:56 Urine Color Yellow Urine Clarity Clear Urine pH 5.0 Ur Specific [place] 1.014 Urine Protein 30 Urine Glucose (UA) Neg Urine Ketones Negative Urine Blood Small Urine Nitrate Negative Urine Bilirubin Negative Urine Urobilinogen 0.2-1.0 Ur Leukocyte Esterase Neg Urine RBC (Auto) 5 H Urine Microscopic WBC < 1 Assessment & Plan - Assessment and Plan (Free Text) Assessment: 66 year old male, homeless with a past medical history of COPD , hypertension, asthma, pulmonary embolism s/p IVC admitted with COPD exacerbation and SIRS. Plan: COPD exacerbation -Increased baseline SOB, productive cough -admit to hospital consider NC @ 2 -3 LPM if oxygen Sat < 94 % -c/w Duoneb inh TID -c/w duoneb Q6 PRN -c/w Rocephin 1 gm IVP daily -c/w Azithromycin 1 gm IVP daily -c/w Solumetrol 40 mg Q 8 hours f/u respiratory status Systemic inflammatory Response Syndrome -low grade fever 100.9(>100.4 F), tachy 130 (>90), RR: 24(>20) -leukocytosis 13.0 (> 12) -first lactate was 2.2, and repeat lactate was 1.8 ( wnl) -CXR: showed no active disease -UA: pos for small blood, but no nitrate, no leukocyte esterase, WBC normal -c/w antibiotics f/u urine Cx f/u blood Cx f/u procalcitonin HTN -re- assume home lisinopril 10 mg Po daily -hold amlodipine to keep SBP < 140, but >120, also pt has a chronic lower extremities edema -f/u BP DM type 2 Last HgbA1C was 6.7 % on 12/19/16 patient has not been taking any medication re-assumed Metformin 500 mg BID Hold Glipizide 5 mg for now f/u accucheck Upper and Lower extremity, trunk, lesions -Most likely Psoriasis chronic plaque -ammonium lactate 12 % TOP TID re-evaluate DVT prophylaxis s/p IVC filter - Date & Time Date: 03/29/17 Time: 14:00
[2017-03-29] MEDS ORDERED: Azithromycin 500 MG IV IVPB ONE (16:13)
[2017-03-29 16:35] LABS: VENOUS BLOOD GAS PCO2 36 mmHg (40-60)
[2017-03-29 17:48] LABS: THYROID STIMULATING HORMONE 0.5 mIU/ML (0.46-4.68)
[2017-03-29] MEDS: Insulin Lispro (humaLOG) 100 Units/ml Inj SC SCH ×2 (18:43→23:00)
[2017-03-29] MEDS: Albuterol-Ipratrop 3 mg / 0.5 (3 ml) UD INH SCH (21:11)
[2017-03-30] MEDS: methylPREDNISolone 40 MG in Sodium Chloride 0.9% 50 ML IVPB SCH ×3 (02:00→17:35)
[2017-03-30] MEDS: Insulin Lispro (humaLOG) 100 Units/ml Inj SC SCH ×4 (06:44→21:42)
[2017-03-30 07:23] LABS: HEMATOCRIT 34.7 % (35.0-51.0); MEAN CELL VOLUME 86.4 fl (80.0-94.0); MEAN CORPUSCULAR HEMOGLOBIN 28.6 pg (27.0-31.0); MEAN CORPUSCULAR HGB CONC 33.1 g/dL (33.0-37.0); RED CELL DISTRIBUTION WIDTH 16.1 % (11.5-14.5); WHITE BLOOD COUNT 9.7 K/uL (4.8-10.8)
[2017-03-30] MEDS: Albuterol-Ipratrop 3 mg / 0.5 (3 ml) UD INH SCH ×3 (07:32→19:19)
[2017-03-30 07:33] LABS: ALB/GLOB RATIO 0.9 (1.0-2.1); ALKALINE PHOSPHATASE 61 U/L (38-126); ALT/SGPT 23 U/L (21-72); AST/SGOT 27 U/L (17-59); BILIRUBIN,TOTAL 0.4 mg/dl (0.2-1.3); BLOOD UREA NITROGEN 15 mg/dl (9-20); CALCIUM 8.3 mg/dL (8.4-10.2); CARBON DIOXIDE 25 mmol/L (22-30); CHLORIDE 106 mmol/L (98-107); GFR AFRICAN-AMERICAN > 60; GLUCOSE,RANDOM 180 mg/dL (75-110); POTASSIUM 4.4 MMOL/L (3.6-5.0); SODIUM 141 mmol/l (132-148); TOTAL PROTEIN 6.8 G/DL (6.3-8.2)
[2017-03-30] MEDS: Pantoprazole 40 mg EC Tab PO SCH (08:45)
--- NOTE | 2017-03-30 08:58 | CARD ---
APPROVED REPORT EKG Measurement Heart [id number] <Conclusion> Sinus tachycardia Otherwise normal ECG
--- NOTE | 2017-03-30 12:24 | CP.PCM.PN ---
Subjective - Date & Time of Evaluation Date of Evaluation: 03/30/17 Time of Evaluation: 07:50 - Subjective Subjective: Patient seen and examined in telemetry unit this morning. Still SOB, and c/o productive cough, and chest pain with inspiration and cough. Afebrile, but still tachycardic, however improving No events reported overnight Objective - Vital Signs/Intake and Output Vital Signs (last 24 hours): Temp Pulse Resp BP Pulse Ox 97.9 F 99 H 18 154/77 H 98 03/30/17 12:18 03/30/17 12:18 03/30/17 12:18 03/30/17 12:18 03/30/17 12:18 Intake and Output: 03/30/17 03/30/17 06:59 18:59 Intake Total 50 Output Total 300 Balance -250 - Medications Medications: Current Medications Acetaminophen (Tylenol 325mg Tab) 650 mg PO Q6 PRN PRN Reason: Fever >100.4 F Albuterol/Ipratropium (Duoneb 3 Mg/0.5 Mg (3 Ml) Ud) 3 ml INH RTID [facility] Last Admin: 03/30/17 07:32 Dose: 3 ml Albuterol/Ipratropium (Duoneb 3 Mg/0.5 Mg (3 Ml) Ud) 3 ml INH RQ6 PRN PRN Reason: Shortness of Breath Enoxaparin Sodium (Lovenox) 40 mg SC DAILY JE[facility]Y PRN Reason: Protocol Glipizide (Glucotrol) 5 mg PO ACB [facility] Hydrochlorothiazide (Hydrodiuril) 25 mg PO DAILY [facility] Azithromycin 500 mg/ Sodium (Chloride) 250 mls @ 250 mls/hr IVPB DAILY [facility] Ceftriaxone Sodium 1 gm/ (Sodium Chloride) 100 mls @ 100 mls/hr IVPB DAILY [facility] Last Admin: 03/30/17 10:30 Dose: 100 mls/hr Methylprednisolone 40 mg/ (Sodium Chloride) 50 mls @ 100 mls/hr IVPB Q8 [facility] Last Admin: 03/30/17 02:00 Dose: 100 mls/hr Insulin Human Lispro (Humalog) 0 units SC ACHS [facility] PRN Reason: Protocol Last Admin: 03/30/17 06:44 Dose: 2 u Lactic Acid (Lac-Hydrin 12% Lotion (225 G)) 1 applic TOP TID PRN PRN Reason: itch Last Admin: 03/30/17 08:46 Dose: 1 applic Metformin HCl (Glucophage) 500 mg PO BIDWM [facility]FFRE[facility] Last Admin: 03/30/17 08:45 Dose: 500 mg Pantoprazole Sodium (Protonix Ec Tab) 40 mg PO DAILY [facility] Last Admin: 03/30/17 08:45 Dose: 40 mg - Labs Labs: 03/30/17 06:25 03/30/17 06:25 PT 13.3 Seconds (9.8-13.1) H 03/29/17 13:16 INR 1.3 (0.9-1.2) H 03/29/17 13:16 APTT 31.0 Seconds (25.6-37.1) 03/29/17 13:16 - Constitutional Appears: No Acute Distress - ENT Exam ENT Exam: Mucous Membranes Moist - Respiratory Exam Respiratory Exam: Rhonchi, Wheezes, NORMAL BREATHING PATTERN. absent: Rales - Cardiovascular Exam Cardiovascular Exam: Tachycardia, REGULAR RHYTHM, +S1, +S2 - GI/Abdominal Exam GI & Abdominal Exam: Soft, Normal Bowel Sounds. absent: Distended, Firm, Guarding, Rigid, Tenderness - Extremities Exam Extremities Exam: Pedal Edema. absent: Calf Tenderness - Neurological Exam Neurological Exam: Alert, Awake, Oriented x3 - Additional Findings Additional findings: scaly plaques all over body on trunk and all extremities Assessment and Plan - Assessment and Plan (Free Text) Assessment: 66 year old male, homeless with a past medical history of COPD , hypertension, asthma, pulmonary embolism s/p IVC admitted with COPD exacerbation and SIRS. Plan: COPD exacerbation -Increased baseline SOB, productive cough Afebrile, still Tachy consider NC @ 2 LPM -c/w Duoneb inh TID -c/w duoneb Q6 PRN -c/w Rocephin 1 gm IVP daily -c/w Azithromycin 1 gm IVP daily -c/w Solumetrol 40 mg Q 8 hours, consider decrease frequency to Q12 tomorrow c/w Pantoprazole 40 mg PO while in steroid f/u respiratory status Consider ID consult if pt spikes fevers in current treatment, based in his previous h/o recent antibiotic use. Systemic inflammatory Response Syndrome improving -low grade fever 100.9(>100.4 F), tachy 130 (>90), RR: 24(>20) -resolved leukocytosis , today WBC : 9.7 -repeat lactate was wnl -procalcitonin WNL -CXR: showed no active disease -UA: pos for small blood, but no nitrate, no leukocyte esterase, WBC normal -c/w antibiotics f/u urine Cx f/u blood Cx HTN -discontinue home lisinopril because common side effects is cough -discontinue amlodipine because chronic lower extremities edema start Hydrochlorotiazide 25 mg PO daily -f/u BP DM type 2 Last HgbA1C was 6.7 % on 12/19/16 GFR >60, normal BUN/Cr patient has not been taking any medication c/w Metformin 500 mg BID c/w Glipizide 5 mg for now f/u accucheck Upper and Lower extremity, trunk, lesions -Most likely Psoriasis chronic plaque -ammonium lactate 12 % TOP TID re-evaluate DVT prophylaxis lovenox 40 mg SC daily
[2017-03-30] MEDS: Azithromycin 500 MG in Sodium Chloride 0.9% 250 ML IVPB SCH (13:51)
[2017-03-30] MEDS: Enoxaparin 40 mg Syringe SC SCH (13:54)
[2017-03-30] MEDS ORDERED: Dextrose 50% SYRINGE Inj (50 ml) IV PRN (16:25)
[2017-03-30] MEDS ORDERED: Glucagon Recombinant 1 mg Inj IM PRN (16:25)
[2017-03-30 21:18] LABS: FT3 3.81 pg/mL (2.77-5.27)
[2017-03-31] MEDS: methylPREDNISolone 40 MG in Sodium Chloride 0.9% 50 ML IVPB SCH ×4 (00:33→21:43)
[2017-03-31] MEDS: Albuterol-Ipratrop 3 mg / 0.5 (3 ml) UD INH SCH ×3 (07:56→19:26)
[2017-03-31] MEDS: Insulin Lispro (humaLOG) 100 Units/ml Inj SC SCH (10:09)
[2017-03-31] MEDS: Enoxaparin 40 mg Syringe SC SCH (10:10)
[2017-03-31] MEDS: Pantoprazole 40 mg EC Tab PO SCH (10:11)
--- NOTE | 2017-03-31 10:25 | CP.PCM.PN ---
Subjective - Date & Time of Evaluation Date of Evaluation: 03/31/17 Time of Evaluation: 07:20 - Subjective Subjective: Patient seen and examined in telemetry unit this morning. Patient still c/o short of breath, wheezing and productive cough, however slowly improving. C/O 2 episodes of non bloody diarrheas yesterday, followed by a normal consistency stools. Afebrile, slightly Tachy Had one hypoglycemic episode yesterday Objective - Vital Signs/Intake and Output Vital Signs (last 24 hours): Temp Pulse Resp BP Pulse Ox 98.1 F 108 H 18 149/78 96 03/31/17 08:00 03/31/17 08:00 03/31/17 08:00 03/31/17 08:00 03/31/17 08:00 - Medications Medications: Current Medications Acetaminophen (Tylenol 325mg Tab) 650 mg PO Q6 PRN PRN Reason: Fever >100.4 F Albuterol/Ipratropium (Duoneb 3 Mg/0.5 Mg (3 Ml) Ud) 3 ml INH RTID [facility] Last Admin: 03/31/17 07:56 Dose: 3 ml Albuterol/Ipratropium (Duoneb 3 Mg/0.5 Mg (3 Ml) Ud) 3 ml INH RQ6 PRN PRN Reason: Shortness of Breath Last Admin: 03/31/17 06:13 Dose: 3 ml Dextrose (Dextrose 50% Inj) 0 ml IV STAT PRN; Protocol PRN Reason: Hyglycemia Protocol Dextrose (Glutose 15) 0 gm PO ONCE PRN; Protocol PRN Reason: Hypoglycemia Protocol Enoxaparin Sodium (Lovenox) 40 mg SC DAILY JEFFREY PRN Reason: Protocol Last Admin: 03/31/17 10:10 Dose: 40 mg Glucagon (Glucagen Diagnostic Kit) 0 mg IM STAT PRN; Protocol PRN Reason: Hypoglycemia Protocol Hydrochlorothiazide (Hydrodiuril) 25 mg PO DAILY [facility] Last Admin: 03/31/17 10:10 Dose: 25 mg Azithromycin 500 mg/ Sodium (Chloride) 250 mls @ 250 mls/hr IVPB DAILY [facility] Last Admin: 03/30/17 13:51 Dose: 250 mls/hr Ceftriaxone Sodium 1 gm/ (Sodium Chloride) 100 mls @ 100 mls/hr IVPB DAILY [facility] Last Admin: 03/30/17 10:30 Dose: 100 mls/hr Methylprednisolone 40 mg/ (Sodium Chloride) 50 mls @ 100 mls/hr IVPB Q12H [facility] Last Admin: 03/31/17 10:18 Dose: Not Given Insulin Human Lispro (Humalog) 0 units SC ACHS [facility]FFREY PRN Reason: Protocol Last Admin: 03/31/17 10:09 Dose: 2 u Lactic Acid (Lac-Hydrin 12% Lotion (225 G)) 1 applic TOP TID PRN PRN Reason: itch Last Admin: 03/31/17 10:16 Dose: 1 applic Metformin HCl (Glucophage) 500 mg PO BIDWM [facility] Last Admin: 03/31/17 10:08 Dose: 500 mg Pantoprazole Sodium (Protonix Ec Tab) 40 mg PO DAILY [facility] Last Admin: 03/31/17 10:11 Dose: 40 mg - Labs Labs: 03/30/17 06:25 03/30/17 06:25 PT 13.3 Seconds (9.8-13.1) H 03/29/17 13:16 INR 1.3 (0.9-1.2) H 03/29/17 13:16 APTT 31.0 Seconds (25.6-37.1) 03/29/17 13:16 - Constitutional Appears: No Acute Distress - ENT Exam ENT Exam: Mucous Membranes Moist - Respiratory Exam Respiratory Exam: Rhonchi, Wheezes (diffuse and bilateral), NORMAL BREATHING PATTERN - Cardiovascular Exam Cardiovascular Exam: Tachycardia, REGULAR RHYTHM, +S1, +S2 - GI/Abdominal Exam GI & Abdominal Exam: Soft, Normal Bowel Sounds Additional comments: Diffuse mild tenderness to palpation, no rebound tenderness, no guarding or rigidity noted. - Extremities Exam Extremities Exam: Pedal Edema. absent: Calf Tenderness Additional comments: bilateral lower extremities edema, no pitting noted - Neurological Exam Neurological Exam: Alert, Awake, Oriented x3 - Skin Additional comments: scaly plaques all over body on trunk and all extremities Assessment and Plan - Assessment and Plan (Free Text) Assessment: 66 year old male, homeless with a past medical history of COPD , hypertension, asthma, pulmonary embolism s/p IVC admitted with COPD exacerbation and SIRS, now slowly improving. Plan: COPD exacerbation -Increased baseline SOB, productive cough Afebrile, still Tachy consider NC @ 2 LPM -c/w Duoneb inh TID -c/w duoneb Q6 PRN -c/w Rocephin 1 gm IVP daily -c/w Azithromycin 1 gm IVP daily -decrease Solumetrol frequency from 40 mg Q 8 hours to Q 12 hours, continue titrating down steriods f/u respiratory status Consider ID consult if pt spikes fevers in current treatment, based in his previous h/o recent antibiotic use. Systemic inflammatory Response Syndrome continue improving slightly tachy, but could be 2/2 albuterol side effects -on admission low grade fever 100.9(>100.4 F), tachy 130 (>90), RR: 24(>20) -c/w antibiotics -resolved leukocytosis , today WBC : 9.7 -repeat lactate was wnl -procalcitonin WNL -CXR: showed no active disease -UA: pos for small blood, but no nitrate, no leukocyte esterase, WBC normal -Blood culture showed no growth in 24 hours -f/u urine Cx Diarrheas afebrile no leukocytosis 2 episodes of diarrheas yesterday BUN/Cr yesterday WNL will f/u HTN improving -discontinue home lisinopril because common side effects is cough -discontinue amlodipine because chronic lower extremities edema c/w Hydrochlorotiazide 25 mg PO daily -f/u BP DM type 2 episode of hypoglycemia yesterday Last HgbA1C was 6.7 % on 12/19/16 GFR >60, normal BUN/Cr patient has not been taking any medication c/w Metformin 500 mg BID c/w Insulin Lispro as per protocol Low dose c/w Hypoglycemic protocol c/w Diabetic diet discontinue Glipizide 5 mg for now f/u accucheck Upper and Lower extremity, trunk, lesions -Most likely Psoriasis chronic plaque -ammonium lactate 12 % TOP TID re-evaluate DVT prophylaxis lovenox 40 mg SC daily
[2017-03-31] MEDS: Azithromycin 500 MG in Sodium Chloride 0.9% 250 ML IVPB SCH (12:06)
[2017-03-31] MEDS: Insulin Regular 100 units/ml SC SCH ×3 (12:07→21:42)
[2017-04-01] MEDS: Insulin Regular 100 units/ml SC SCH ×4 (06:34→23:01)
[2017-04-01] MEDS: Albuterol-Ipratrop 3 mg / 0.5 (3 ml) UD INH SCH ×3 (07:55→19:36)
[2017-04-01] MEDS: Enoxaparin 40 mg Syringe SC SCH (08:57)
[2017-04-01] MEDS: methylPREDNISolone 40 MG in Sodium Chloride 0.9% 50 ML IVPB SCH (11:54)
[2017-04-01] MEDS: Azithromycin 500 MG in Sodium Chloride 0.9% 250 ML IVPB SCH (12:34)
--- NOTE | 2017-04-01 15:48 | CP.PCM.PN ---
Subjective - Date & Time of Evaluation Date of Evaluation: 04/01/17 Time of Evaluation: 07:45 - Subjective Subjective: Patient was seen and examined in telemetry unit this morning. Still c/o SOB, wheezing, and productive cough, however slowly improving. Denies new episodes of diarrheas Afebrile, with episodes of being tachy, and slightly elevated BP, 97-99 % oxygen sat in 2 LPM via NC Objective - Vital Signs/Intake and Output Vital Signs (last 24 hours): Temp Pulse Resp BP Pulse Ox 98.7 F 98 H 18 149/79 97 04/01/17 12:50 04/01/17 12:50 04/01/17 12:50 04/01/17 12:50 04/01/17 12:50 - Medications Medications: Current Medications Acetaminophen (Tylenol 325mg Tab) 650 mg PO Q6 PRN PRN Reason: Fever >100.4 F Albuterol/Ipratropium (Duoneb 3 Mg/0.5 Mg (3 Ml) Ud) 3 ml INH RTID [facility] Last Admin: 04/01/17 13:46 Dose: 3 ml Albuterol/Ipratropium (Duoneb 3 Mg/0.5 Mg (3 Ml) Ud) 3 ml INH RQ6 PRN PRN Reason: Shortness of Breath Last Admin: 03/31/17 06:13 Dose: 3 ml Dextrose (Dextrose 50% Inj) 0 ml IV STAT PRN; Protocol PRN Reason: Hyglycemia Protocol Dextrose (Glutose 15) 0 gm PO ONCE PRN; Protocol PRN Reason: Hypoglycemia Protocol Enoxaparin Sodium (Lovenox) 40 mg SC DAILY [facility] PRN Reason: Protocol Last Admin: 04/01/17 08:57 Dose: 40 mg Glucagon (Glucagen Diagnostic Kit) 0 mg IM STAT PRN; Protocol PRN Reason: Hypoglycemia Protocol Guaifenesin/Codeine Phosphate (Robitussin W/Codeine) 10 ml PO Q8 [facility] Hydrochlorothiazide (Microzide) 12.5 mg PO DAILY [facility] Azithromycin 500 mg/ Sodium (Chloride) 250 mls @ 250 mls/hr IVPB DAILY [facility] Last Admin: 04/01/17 12:34 Dose: 250 mls/hr Ceftriaxone Sodium 1 gm/ (Sodium Chloride) 100 mls @ 100 mls/hr IVPB DAILY [facility] Last Admin: 04/01/17 10:45 Dose: 100 mls/hr Methylprednisolone 40 mg/ (Sodium Chloride) 50 mls @ 100 mls/hr IVPB DAILY [facility] Insulin Human Regular (Humulin R) 0 units SC ACHS [facility] PRN Reason: Protocol Last Admin: 04/01/17 13:03 Dose: Not Given Lactic Acid (Lac-Hydrin 12% Lotion (225 G)) 1 applic TOP TID PRN PRN Reason: itch Last Admin: 04/01/17 09:00 Dose: 1 applic Metformin HCl (Glucophage) 500 mg PO BIDWM [facility] Last Admin: 04/01/17 08:56 Dose: 500 mg Metoprolol Tartrate (Lopressor) 12.5 mg PO Q12 [facility] - Labs Labs: 03/30/17 06:25 03/30/17 06:25 PT 13.3 Seconds (9.8-13.1) H 03/29/17 13:16 INR 1.3 (0.9-1.2) H 03/29/17 13:16 APTT 31.0 Seconds (25.6-37.1) 03/29/17 13:16 - Additional Findings Additional findings: Constitutional Appears: No Acute Distress - ENT Exam ENT Exam: Mucous Membranes Moist - Respiratory Exam Respiratory Exam: Rhonchi, Wheezes (diffuse and bilateral), NORMAL BREATHING PATTERN - Cardiovascular Exam Cardiovascular Exam: Tachycardia, REGULAR RHYTHM, +S1, +S2 - GI/Abdominal Exam GI & Abdominal Exam: Soft, Normal Bowel Sounds Additional comments: Diffuse mild tenderness to palpation, no rebound tenderness, no guarding or rigidity noted. - Extremities Exam Extremities Exam: Pedal Edema. absent: Calf Tenderness Additional comments: bilateral lower extremities edema, no pitting noted. Improving - Neurological Exam Neurological Exam: Alert, Awake, Oriented x3 - Skin Additional comments: scaly plaques all over body on trunk and all extremities Assessment and Plan - Assessment and Plan (Free Text) Assessment: 66 year old male, homeless with a past medical history of COPD , hypertension, asthma, pulmonary embolism s/p IVC admitted with COPD exacerbation and SIRS, now slowly improving. Plan: COPD exacerbation slowly improvement -Increased baseline SOB, productive cough Afebrile, still Tachy consider NC @ 2 LPM -c/w Duoneb inh TID -c/w duoneb Q6 PRN -c/w Rocephin 1 gm IVP daily day #3 -c/w Azithromycin 1 gm IVP daily day #3 -decrease Solumetrol frequency from 40 mg Q 12 hours to daily, switch to PO Prednisone tomorrow and taper down f/u respiratory status Pulmonology consult appreciated, Dr. Beckwith, f/u recommendations Systemic inflammatory Response Syndrome resolving afebrile, no leukocytosis slightly tachy, possible 2/2 albuterol side effects -on admission low grade fever 100.9(>100.4 F), tachy 130 (>90), RR: 24(>20) -c/w antibiotics -repeat lactate was wnl -procalcitonin WNL -CXR: showed no active disease -UA: pos for small blood, but no nitrate, no leukocyte esterase, WBC normal -Blood culture showed no growth in 24 hours -f/u urine Cx Diarrheas resolved without intervention afebrile no leukocytosis 2 episodes of diarrheas yesterday BUN/Cr yesterday WNL will f/u while in house HTN slightly elevated since yesterday -decreased Hydrochlorotiazide from 25 mg to 12.5 mg PO daily -start Metoprolol T. 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
[2017-04-01] MEDS: guaiFENesin-Codeine 100-10mg/5ml Syrup (5 ml) UD PO SCH (17:55)
[2017-04-01 18:54] LABS: HEMATOCRIT 40.4 % (35.0-51.0); MEAN CELL VOLUME 86.2 fl (80.0-94.0); MEAN CORPUSCULAR HEMOGLOBIN 27.9 pg (27.0-31.0); MEAN CORPUSCULAR HGB CONC 32.4 g/dL (33.0-37.0); WHITE BLOOD COUNT 9.4 K/uL (4.8-10.8)
[2017-04-01 19:06] LABS: BLOOD UREA NITROGEN 21 mg/dl (9-20); CALCIUM 8.5 mg/dL (8.4-10.2); CARBON DIOXIDE 23 mmol/L (22-30); CHLORIDE 98 mmol/L (98-107); GFR AFRICAN-AMERICAN > 60; GLUCOSE,RANDOM 185 mg/dL (75-110); POTASSIUM 4.1 MMOL/L (3.6-5.0); SODIUM 138 mmol/l (132-148)
[2017-04-02] MEDS: guaiFENesin-Codeine 100-10mg/5ml Syrup (5 ml) UD PO SCH ×3 (00:08→16:45)
[2017-04-02] MEDS: Insulin Regular 100 units/ml SC SCH ×4 (07:08→21:57)
[2017-04-02] MEDS: Albuterol-Ipratrop 3 mg / 0.5 (3 ml) UD INH SCH ×3 (07:58→19:27)
--- NOTE | 2017-04-02 08:43 | CP.PCM.PN ---
Subjective - Date & Time of Evaluation Date of Evaluation: 04/02/17 Time of Evaluation: 07:35 - Subjective Subjective: Patient seen and examined in Telemetry unit this morning. Still c/o SOB, wheezing and productive cough, however slowly improving. No significant changes in respiratory status compared with yesterday. Afebrile, HR and BP improving Had an uneventful night Objective - Vital Signs/Intake and Output Vital Signs (last 24 hours): Temp Pulse Resp BP Pulse Ox 97.8 F 83 20 126/68 95 04/02/17 08:00 04/02/17 08:00 04/02/17 08:00 04/02/17 08:00 04/02/17 08:00 - Medications Medications: Current Medications Acetaminophen (Tylenol 325mg Tab) 650 mg PO Q6 PRN PRN Reason: Fever >100.4 F Albuterol/Ipratropium (Duoneb 3 Mg/0.5 Mg (3 Ml) Ud) 3 ml INH RTID [facility] Last Admin: 04/02/17 07:58 Dose: 3 ml Albuterol/Ipratropium (Duoneb 3 Mg/0.5 Mg (3 Ml) Ud) 3 ml INH RQ6 PRN PRN Reason: Shortness of Breath Last Admin: 03/31/17 06:13 Dose: 3 ml Dextrose (Dextrose 50% Inj) 0 ml IV STAT PRN; Protocol PRN Reason: Hyglycemia Protocol Dextrose (Glutose 15) 0 gm PO ONCE PRN; Protocol PRN Reason: Hypoglycemia Protocol Enoxaparin Sodium (Lovenox) 40 mg SC DAILY [facility] PRN Reason: Protocol Last Admin: 04/01/17 08:57 Dose: 40 mg Glucagon (Glucagen Diagnostic Kit) 0 mg IM STAT PRN; Protocol PRN Reason: Hypoglycemia Protocol Guaifenesin/Codeine Phosphate (Robitussin W/Codeine) 10 ml PO Q8 [facility] Last Admin: 04/02/17 00:08 Dose: 10 ml Hydrochlorothiazide (Microzide) 12.5 mg PO DAILY [facility] Azithromycin 500 mg/ Sodium (Chloride) 250 mls @ 250 mls/hr IVPB DAILY [facility] Last Admin: 04/01/17 12:34 Dose: 250 mls/hr Ceftriaxone Sodium 1 gm/ (Sodium Chloride) 100 mls @ 100 mls/hr IVPB DAILY [facility] Last Admin: 04/01/17 10:45 Dose: 100 mls/hr Methylprednisolone 40 mg/ (Sodium Chloride) 50 mls @ 100 mls/hr IVPB DAILY [facility] Insulin Human Regular (Humulin R) 0 units SC ACHS [facility] PRN Reason: Protocol Last Admin: 04/02/17 07:08 Dose: Not Given Lactic Acid (Lac-Hydrin 12% Lotion (225 G)) 1 applic TOP TID PRN PRN Reason: itch Last Admin: 04/01/17 09:00 Dose: 1 applic Metformin HCl (Glucophage) 500 mg PO BIDWM [facility] Last Admin: 04/01/17 17:52 Dose: 500 mg Metoprolol Tartrate (Lopressor) 12.5 mg PO Q12 [facility] Last Admin: 04/01/17 20:44 Dose: 12.5 mg - Labs Labs: 04/01/17 18:20 04/01/17 18:20 PT 13.3 Seconds (9.8-13.1) H 03/29/17 13:16 INR 1.3 (0.9-1.2) H 03/29/17 13:16 APTT 31.0 Seconds (25.6-37.1) 03/29/17 13:16 - Additional Findings Additional findings: Constitutional Appears: No Acute Distress - ENT Exam ENT Exam: Mucous Membranes Moist - Respiratory Exam Respiratory Exam: Rhonchi, Wheezes (diffuse and bilateral), NORMAL BREATHING PATTERN - Cardiovascular Exam Cardiovascular Exam: Tachycardia, REGULAR RHYTHM, +S1, +S2 - GI/Abdominal Exam GI & Abdominal Exam: Soft, Normal Bowel Sounds Additional comments: Diffuse mild tenderness to palpation, no rebound tenderness, no guarding or rigidity noted. - Extremities Exam Extremities Exam: Pedal Edema. absent: Calf Tenderness Additional comments: bilateral lower extremities edema, no pitting noted. Improving - Neurological Exam Neurological Exam: Alert, Awake, Oriented x3 - Skin Additional comments: scaly plaques all over body on trunk and all extremities Assessment and Plan - Assessment and Plan (Free Text) Assessment: 66 year old male, homeless with a past medical history of COPD , hypertension, asthma, pulmonary embolism s/p IVC admitted with COPD exacerbation and SIRS, now slowly improving. Plan: COPD exacerbation slowly improvement Afebrile, HR improving - NC @ 2 LPM -c/w Duoneb inh TID -c/w duoneb Q6 PRN -c/w Rocephin 1 gm IVP daily day #4 -c/w Azithromycin 1 gm IVP daily day #4 -decrease Solumetrol frequency from 40 mg Q 12 hours to daily, switch to PO Prednisone tomorrow and taper down f/u respiratory status Pulmonology consult appreciated, Dr. Beckwith, f/u recommendations Systemic inflammatory Response Syndrome resolving afebrile, no leukocytosis slightly tachy, possible 2/2 albuterol side effects -on admission low grade fever 100.9(>100.4 F), tachy 130 (>90), RR: 24(>20) -c/w antibiotics -repeat lactate was wnl -procalcitonin WNL -CXR: showed no active disease -UA: pos for small blood, but no nitrate, no leukocyte esterase, WBC normal -Blood culture showed no growth in 24 hours -f/u urine Cx HTN improving -c/w Hydrochlorotiazide 12.5 mg PO daily -c/w Metoprolol T. 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
[2017-04-02] MEDS ORDERED: methylPREDNISolone 40 MG in Sodium Chloride 0.9% 50 ML IVPB SCH (09:00)
[2017-04-02] MEDS: Enoxaparin 40 mg Syringe SC SCH (09:20)
[2017-04-02] MEDS: Azithromycin 500 MG in Sodium Chloride 0.9% 250 ML IVPB SCH (10:00)
[2017-04-02] MEDS ORDERED: Sodium Chloride 3% for Inhalation 4 ML VIAL.NEB IH PRN (12:51)
[2017-04-02] MEDS ORDERED: Influenza Vaccine 18yr & older 0.5 ML/45 MCG SYR IM ONE (17:00)
[2017-04-02] MEDS: Acetylcysteine 20% Inhal Soln (4ml) INH SCH (19:27)
[2017-04-02] MEDS: methylPREDNISolone 60 MG in Sodium Chloride 0.9% 50 ML IVPB SCH (21:59)
--- NOTE | 2017-04-02 22:52 | CON ---
HISTORY OF PRESENT ILLNESS: The patient is a 66-year-old homeless male, who was referred for pulmonary evaluation after he was admitted with shortness of breath, exercise intolerance and cough for the past several days prior to presentation. PAST MEDICAL HISTORY: He has a past medical history of chronic obstructive pulmonary disease, hypertension, pulmonary emboli in the past, status post IVC filter placement, psoriasis of all extremities. He indicates that he has been coughing up brownish-green sputum for the past several days and also has had a bloody diarrhea for the past several days. FAMILY HISTORY: Non-revealing. SOCIAL HISTORY: He quit smoking about 3 months ago, does not use drugs and is homeless. REVIEW OF SYSTEMS: Remarkable for shortness of breath, exercise intolerance and skin rash. PHYSICAL EXAMINATION: GENERAL: The patient is alert, oriented, feels short of breath at rest and mild exertion. VITAL SIGNS: Blood pressure of 126/68, pulse of 83, respiratory rate 20 to 22 per minute. He is afebrile. O2 sat 95% on nasal cannula oxygen. SKIN: Scaly rashes of psoriasis. HEENT: JVP flat. Mouth shows poor hygiene. LUNGS: Poor aeration with audible rales and wheezing. HEART: S1 and S2. ABDOMEN: Soft, nontender. No organomegaly. EXTREMITIES: No edema or cyanosis, but shows scaly rash of psoriasis. CENTRAL NERVOUS SYSTEM: Grossly intact. LABORATORY DATA: Chest x-ray shows no acute cardiopulmonary pathology. EKG, sinus tachycardia, otherwise unremarkable. WBC 9.4, hemoglobin 13.1 and platelet count down to 65,000. Sodium 138, potassium 4.1, BUN 21, and creatinine of 1.1, glucose 198. ABG: pH of 7.40, pCO2 of 36, pO2 of 68, O2 sat 98.3%; this is venous blood gas on room air. IMPRESSION: Acute exacerbation of chronic obstructive pulmonary disease, upper respiratory tract infection, mucus plugging of airways, psoriasis. PLAN: Intravenous steroids, intravenous antibiotics as well as bronchodilators. Would give Mucomyst to help expectorate sputum. Obtain sputum cultures as well as bronchodilators already started. We will continue to follow with you. Juan Beckwith MD [facility] # [id number]
[2017-04-03] MEDS: guaiFENesin-Codeine 100-10mg/5ml Syrup (5 ml) UD PO SCH (00:25)
[2017-04-03] MEDS: Albuterol-Ipratrop 3 mg / 0.5 (3 ml) UD INH SCH ×4 (01:02→19:31)
[2017-04-03] MEDS: Acetylcysteine 20% Inhal Soln (4ml) INH SCH ×2 (07:42→19:31)
[2017-04-03] MEDS: Enoxaparin 40 mg Syringe SC SCH (08:49)
[2017-04-03] MEDS: Insulin Regular 100 units/ml SC SCH ×4 (08:52→21:34)
[2017-04-03] MEDS: Azithromycin 500 MG in Sodium Chloride 0.9% 250 ML IVPB SCH (08:53)
[2017-04-03] MEDS: methylPREDNISolone 60 MG in Sodium Chloride 0.9% 50 ML IVPB SCH ×2 (08:56→21:36)
[2017-04-03] MEDS ORDERED: guaiFENesin-Codeine 100-10mg/5ml Syrup (5 ml) UD PO PRN (09:04)
--- NOTE | 2017-04-03 09:27 | CP.PCM.PN ---
Subjective - Date & Time of Evaluation Date of Evaluation: 04/03/17 Time of Evaluation: 08:50 - Subjective Subjective: Patient seen and examined in telemetry unit this morning. Still c/o SOB, and productive cough. Denies CP, N/V, chills, abdominal pain, diarrheas. Afebrile, rest of vital signs stable WNL had an uneventful night. Objective - Vital Signs/Intake and Output Vital Signs (last 24 hours): Temp Pulse Resp BP Pulse Ox 98.0 F 89 18 137/72 98 04/03/17 08:00 04/03/17 08:49 04/03/17 08:00 04/03/17 08:49 04/03/17 08:00 - Medications Medications: Current Medications Acetaminophen (Tylenol 325mg Tab) 650 mg PO Q6 PRN PRN Reason: Fever >100.4 F Acetylcysteine (Acetylcysteine 20%) 2 ml INH RBID [facility] Last Admin: 04/03/17 07:42 Dose: 2 ml Albuterol/Ipratropium (Duoneb 3 Mg/0.5 Mg (3 Ml) Ud) 3 ml INH RQ6 [facility] Last Admin: 04/03/17 07:46 Dose: 3 ml Clobetasol Propionate (Temovate Cream) 1 applic TOP BID [facility] Last Admin: 04/03/17 09:06 Dose: 1 applic Dextrose (Dextrose 50% Inj) 0 ml IV STAT PRN; Protocol PRN Reason: Hyglycemia Protocol Dextrose (Glutose 15) 0 gm PO ONCE PRN; Protocol PRN Reason: Hypoglycemia Protocol Enoxaparin Sodium (Lovenox) 40 mg SC DAILY [facility] PRN Reason: Protocol Last Admin: 04/03/17 08:49 Dose: 40 mg Glucagon (Glucagen Diagnostic Kit) 0 mg IM STAT PRN; Protocol PRN Reason: Hypoglycemia Protocol Guaifenesin/Codeine Phosphate (Robitussin W/Codeine) 10 ml PO Q8 PRN PRN Reason: Cough Hydrochlorothiazide (Microzide) 12.5 mg PO DAILY [facility] Last Admin: 04/03/17 08:51 Dose: 12.5 mg Azithromycin 500 mg/ Sodium (Chloride) 250 mls @ 250 mls/hr IVPB DAILY [facility] Last Admin: 04/03/17 08:53 Dose: 250 mls/hr Ceftriaxone Sodium 1 gm/ (Sodium Chloride) 100 mls @ 100 mls/hr IVPB DAILY [facility] Last Admin: 04/03/17 08:54 Dose: 100 mls/hr Methylprednisolone 60 mg/ (Sodium Chloride) 50 mls @ 100 mls/hr IVPB Q12 [facility] Last Admin: 04/03/17 08:56 Dose: 100 mls/hr Insulin Human Regular (Humulin R) 0 units SC ACHS [facility] PRN Reason: Protocol Last Admin: 04/03/17 08:52 Dose: Not Given Lactic Acid (Lac-Hydrin 12% Lotion (225 G)) 1 applic TOP TID PRN PRN Reason: itch Last Admin: 04/03/17 09:06 Dose: 1 applic Metformin HCl (Glucophage) 500 mg PO BIDWM [facility] Last Admin: 04/03/17 08:51 Dose: 500 mg Metoprolol Tartrate (Lopressor) 12.5 mg PO Q12 [facility] Last Admin: 04/03/17 08:49 Dose: 12.5 mg - Labs Labs: 04/01/17 18:20 04/01/17 18:20 PT 13.3 Seconds (9.8-13.1) H 03/29/17 13:16 INR 1.3 (0.9-1.2) H 03/29/17 13:16 APTT 31.0 Seconds (25.6-37.1) 03/29/17 13:16 - Additional Findings Additional findings: Constitutional Appears: No Acute Distress - ENT Exam ENT Exam: Mucous Membranes Moist - Respiratory Exam Respiratory Exam: Rhonchi, Wheezes (diffuse and bilateral), NORMAL BREATHING PATTERN - Cardiovascular Exam Cardiovascular Exam: REGULAR RHYTHM, +S1, +S2 - GI/Abdominal Exam GI & Abdominal Exam: Soft, Normal Bowel Sounds Additional comments: soft, no distended, no tenderness noted - Extremities Exam Extremities Exam: Pedal Edema. absent: Calf Tenderness Additional comments: bilateral lower extremities edema, no pitting noted. Improving - Neurological Exam Neurological Exam: Alert, Awake, Oriented x3 - Skin Additional comments: scaly plaques all over body on trunk and all extremities Assessment and Plan - Assessment and Plan (Free Text) Assessment: 66 year old male, homeless with a past medical history of COPD , hypertension, asthma, pulmonary embolism s/p IVC admitted with COPD exacerbation and SIRS, now slowly improving. Plan: COPD exacerbation slowly improvement Afebrile, HR wnl - NC @ 2 LPM -changed Duoneb frequency to JEFFREY Q6 as per Pumonology rec -c/w Rocephin 1 gm IVP daily day #5 -c/w Azithromycin 1 gm IVP daily day #5 -increased Solu-Metrol to 60 mg Q12 yesterday as per Pulmonology rec -started on Acetylcysteine 20 % 2 ml inh bid -start advair diskus 250/50 1 puff PO Q12 -f/u sputum cuture f/u respiratory status Dr. Beckwith on board, f/u recommendations Systemic inflammatory Response Syndrome resolved afebrile, no leukocytosis -on admission low grade fever 100.9(>100.4 F), tachy 130 (>90), RR: 24(>20) -repeat lactate was wnl -procalcitonin WNL -CXR: showed no active disease -UA: pos for small blood, but no nitrate, no leukocyte esterase, WBC normal -Blood culture showed no growth in 24 hours -f/u urine Cx HTN improving -c/w Hydrochlorotiazide 12.5 mg PO daily -c/w Metoprolol T. 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
--- NOTE | 2017-04-03 11:15 | CP.PCM.PN ---
Subjective - Date & Time of Evaluation Date of Evaluation: 04/03/17 Time of Evaluation: 11:15 - Subjective Subjective: STILL COUGHING SOB SLIGHTLY IMPROVED Objective - Vital Signs/Intake and Output Vital Signs (last 24 hours): Temp Pulse Resp BP Pulse Ox 98.0 F 89 18 137/72 98 04/03/17 09:00 04/03/17 09:00 04/03/17 09:00 04/03/17 09:00 04/03/17 09:00 - Medications Medications: Current Medications Acetaminophen (Tylenol 325mg Tab) 650 mg PO Q6 PRN PRN Reason: Fever >100.4 F Acetylcysteine (Acetylcysteine 20%) 2 ml INH RBID [facility] Last Admin: 04/03/17 07:42 Dose: 2 ml Albuterol/Ipratropium (Duoneb 3 Mg/0.5 Mg (3 Ml) Ud) 3 ml INH RQ6 [facility] Last Admin: 04/03/17 07:46 Dose: 3 ml Clobetasol Propionate (Temovate Cream) 1 applic TOP BID [facility] Last Admin: 04/03/17 09:06 Dose: 1 applic Dextrose (Dextrose 50% Inj) 0 ml IV STAT PRN; Protocol PRN Reason: Hyglycemia Protocol Dextrose (Glutose 15) 0 gm PO ONCE PRN; Protocol PRN Reason: Hypoglycemia Protocol Emollient Ointment (White Petroleum) 1 applic TP Q8 [facility] Enoxaparin Sodium (Lovenox) 40 mg SC DAILY [facility] PRN Reason: Protocol Last Admin: 04/03/17 08:49 Dose: 40 mg Glucagon (Glucagen Diagnostic Kit) 0 mg IM STAT PRN; Protocol PRN Reason: Hypoglycemia Protocol Guaifenesin/Codeine Phosphate (Robitussin W/Codeine) 10 ml PO Q8 PRN PRN Reason: Cough Hydrochlorothiazide (Microzide) 12.5 mg PO DAILY [facility] Last Admin: 04/03/17 08:51 Dose: 12.5 mg Azithromycin 500 mg/ Sodium (Chloride) 250 mls @ 250 mls/hr IVPB DAILY [facility] Last Admin: 04/03/17 08:53 Dose: 250 mls/hr Ceftriaxone Sodium 1 gm/ (Sodium Chloride) 100 mls @ 100 mls/hr IVPB DAILY [facility] Last Admin: 04/03/17 08:54 Dose: 100 mls/hr Methylprednisolone 60 mg/ (Sodium Chloride) 50 mls @ 100 mls/hr IVPB Q12 [facility] Last Admin: 04/03/17 08:56 Dose: 100 mls/hr Insulin Human Regular (Humulin R) 0 units SC ACHS [facility] PRN Reason: Protocol Last Admin: 04/03/17 08:52 Dose: Not Given Metformin HCl (Glucophage) 500 mg PO BIDWM [facility] Last Admin: 04/03/17 08:51 Dose: 500 mg Metoprolol Tartrate (Lopressor) 12.5 mg PO Q12 [facility] Last Admin: 04/03/17 08:49 Dose: 12.5 mg - Labs Labs: 04/01/17 18:20 04/01/17 18:20 PT 13.3 Seconds (9.8-13.1) H 03/29/17 13:16 INR 1.3 (0.9-1.2) H 03/29/17 13:16 APTT 31.0 Seconds (25.6-37.1) 03/29/17 13:16 - Constitutional Appears: Chronically Ill - Head Exam Head Exam: ATRAUMATIC, NORMAL INSPECTION, NORMOCEPHALIC - Eye Exam Eye Exam: EOMI, Normal appearance, PERRL Pupil Exam: NORMAL ACCOMODATION, PERRL - ENT Exam ENT Exam: Mucous Membranes Moist, Normal Exam - Neck Exam Neck Exam: Full ROM, Normal Inspection. absent: Lymphadenopathy - Respiratory Exam Respiratory Exam: Rales, Wheezes, NORMAL BREATHING PATTERN - Cardiovascular Exam Cardiovascular Exam: REGULAR RHYTHM, +S1, +S2. absent: Murmur - GI/Abdominal Exam GI & Abdominal Exam: Soft, Normal Bowel Sounds. absent: Tenderness - Rectal Exam Rectal Exam: NORMAL INSPECTION - Extremities Exam Extremities Exam: Full ROM, Normal Capillary Refill, Normal Inspection. absent : Joint Swelling, Pedal Edema - Back Exam Back Exam: NORMAL INSPECTION - Neurological Exam Neurological Exam: Alert, Awake, CN II-XII Intact, Normal Gait, Oriented x3 - Psychiatric Exam Psychiatric exam: Normal Affect, Normal Mood - Skin Skin Exam: Dry, Intact, Rash, Warm Assessment and Plan - Assessment and Plan (Free Text) Assessment: COPD EXACERBATION URI Plan: CONTINUE PRESENT RX
[2017-04-03] MEDS: White Petroleum Jar TP SCH (17:16)
[2017-04-03] MEDS: Fluticasone-Salmeterol 250-50mcg Diskus IH SCH (21:35)
[2017-04-03] MEDS: guaiFENesin 600 mg ER Tab PO SCH (21:36)
--- NOTE | 2017-04-03 22:34 | RAD ---
HISTORY: copd, b/l lower lung base crackles COMPARISON: 03/29/2017 TECHNIQUE: Chest PA and lateral FINDINGS: LUNGS: Left basilar discoid atelectatic change/ fibrosis. Questionable 5 millimeter nodular density in the right upper lobe. PLEURA: No significant pleural effusion identified. No pneumothorax apparent. CARDIOVASCULAR: Normal. OSSEOUS STRUCTURES: No significant abnormalities. VISUALIZED UPPER ABDOMEN: Normal. OTHER FINDINGS: None. IMPRESSION: Left basilar discoid atelectatic change/ fibrosis. Questionable density measuring 5 millimeters in the right upper lobe.
[2017-04-04] MEDS: Albuterol-Ipratrop 3 mg / 0.5 (3 ml) UD INH SCH ×4 (01:06→19:13)
[2017-04-04] MEDS: White Petroleum Jar TP SCH ×3 (04:19→16:46)
[2017-04-04 06:44] LABS: BASO # 0.1 K/uL (0.0-0.2); BASO % 0.5 % (0.0-2.0); HEMATOCRIT 39.3 % (35.0-51.0); LYMPH % 17.9 % (20.0-40.0); MEAN CELL VOLUME 85.7 fl (80.0-94.0); MEAN CORPUSCULAR HEMOGLOBIN 28.1 pg (27.0-31.0); MEAN CORPUSCULAR HGB CONC 32.7 g/dL (33.0-37.0); MONO # 1.3 K/uL (0.0-0.8); MONO % 11.4 % (0.0-10.0); NEUT # 7.7 K/uL (1.8-7.0); NEUT % 70.2 % (50.0-75.0); NRBC % 0.1 % (0.0-0.0); RED CELL DISTRIBUTION WIDTH 15.4 % (11.5-14.5)
[2017-04-04 06:50] LABS: ALB/GLOB RATIO 1.1 (1.0-2.1); ALKALINE PHOSPHATASE 48 U/L (38-126); ALT/SGPT 28 U/L (21-72); AST/SGOT 23 U/L (17-59); BILIRUBIN,TOTAL 0.3 mg/dl (0.2-1.3); BLOOD UREA NITROGEN 33 mg/dl (9-20); CALCIUM 8.9 mg/dL (8.4-10.2); CARBON DIOXIDE 29 mmol/L (22-30); CHLORIDE 97 mmol/L (98-107); GFR AFRICAN-AMERICAN > 60; GLUCOSE,RANDOM 169 mg/dL (75-110); POTASSIUM 4.4 MMOL/L (3.6-5.0); SODIUM 136 mmol/l (132-148); TOTAL PROTEIN 6.7 G/DL (6.3-8.2)
[2017-04-04] MEDS: Insulin Regular 100 units/ml SC SCH ×3 (07:05→16:47)
[2017-04-04] MEDS: Acetylcysteine 20% Inhal Soln (4ml) INH SCH (07:25)
[2017-04-04] MEDS: Fluticasone-Salmeterol 250-50mcg Diskus IH SCH ×2 (08:46→21:46)
[2017-04-04] MEDS: methylPREDNISolone 60 MG in Sodium Chloride 0.9% 50 ML IVPB SCH (08:48)
[2017-04-04] MEDS: Enoxaparin 40 mg Syringe SC SCH (08:48)
[2017-04-04] MEDS: guaiFENesin 600 mg ER Tab PO SCH ×2 (08:48→21:48)
--- NOTE | 2017-04-04 10:33 | CP.PCM.PN ---
Subjective - Date & Time of Evaluation Date of Evaluation: 04/04/17 Time of Evaluation: 10:39 - Subjective Subjective: SOB IMPROVED COUGH LESS AFEBRILE Objective - Vital Signs/Intake and Output Vital Signs (last 24 hours): Temp Pulse Resp BP Pulse Ox 97.8 F 83 18 130/58 L 97 04/04/17 08:00 04/04/17 08:47 04/04/17 08:00 04/04/17 08:47 04/04/17 08:00 - Medications Medications: Current Medications Acetaminophen (Tylenol 325mg Tab) 650 mg PO Q6 PRN PRN Reason: Fever >100.4 F Acetylcysteine (Acetylcysteine 20%) 2 ml INH RBID [facility] Last Admin: 04/04/17 07:25 Dose: Not Given Albuterol/Ipratropium (Duoneb 3 Mg/0.5 Mg (3 Ml) Ud) 3 ml INH RQ6 [facility] Last Admin: 04/04/17 07:24 Dose: 3 ml Azithromycin (Zithromax) 500 mg PO DAILY [facility] Last Admin: 04/04/17 08:47 Dose: 500 mg Clobetasol Propionate (Temovate Cream) 1 applic TOP BID [facility] Last Admin: 04/04/17 08:47 Dose: 1 applic Dextrose (Dextrose 50% Inj) 0 ml IV STAT PRN; Protocol PRN Reason: Hyglycemia Protocol Dextrose (Glutose 15) 0 gm PO ONCE PRN; Protocol PRN Reason: Hypoglycemia Protocol Emollient Ointment (White Petroleum) 1 applic TP Q8 [facility] Last Admin: 04/04/17 08:47 Dose: 1 applic Enoxaparin Sodium (Lovenox) 40 mg SC DAILY [facility] PRN Reason: Protocol Last Admin: 04/04/17 08:48 Dose: 40 mg Glucagon (Glucagen Diagnostic Kit) 0 mg IM STAT PRN; Protocol PRN Reason: Hypoglycemia Protocol Guaifenesin (Mucinex La) 600 mg PO Q12 [facility] Last Admin: 04/04/17 08:48 Dose: 600 mg Hydrochlorothiazide (Microzide) 12.5 mg PO DAILY [facility] Last Admin: 04/04/17 08:46 Dose: 12.5 mg Ceftriaxone Sodium 1 gm/ (Sodium Chloride) 100 mls @ 100 mls/hr IVPB DAILY [facility] Last Admin: 04/04/17 08:49 Dose: 100 mls/hr Methylprednisolone 60 mg/ (Sodium Chloride) 50 mls @ 100 mls/hr IVPB Q12 [facility] Last Admin: 04/04/17 08:48 Dose: 100 mls/hr Insulin Human Regular (Humulin R) 0 units SC ACHS [facility] PRN Reason: Protocol Last Admin: 04/04/17 07:05 Dose: 1 unit Metformin HCl (Glucophage) 500 mg PO BIDWM [facility] Last Admin: 04/04/17 08:47 Dose: 500 mg Metoprolol Tartrate (Lopressor) 12.5 mg PO Q12 [facility] Last Admin: 04/04/17 08:47 Dose: 12.5 mg Fluticasone/Salmeterol (Advair Diskus 250/50) 1 puff IH Q12 [facility] Last Admin: 04/04/17 08:46 Dose: 1 puff - Labs Labs: 04/04/17 06:00 04/04/17 06:00 PT 13.3 Seconds (9.8-13.1) H 03/29/17 13:16 INR 1.3 (0.9-1.2) H 03/29/17 13:16 APTT 31.0 Seconds (25.6-37.1) 03/29/17 13:16 - Constitutional Appears: No Acute Distress - Head Exam Head Exam: ATRAUMATIC, NORMAL INSPECTION, NORMOCEPHALIC - Eye Exam Eye Exam: EOMI, Normal appearance, PERRL Pupil Exam: NORMAL ACCOMODATION, PERRL - ENT Exam ENT Exam: Mucous Membranes Moist, Normal Exam - Neck Exam Neck Exam: Full ROM, Normal Inspection. absent: Lymphadenopathy - Respiratory Exam Respiratory Exam: Decreased Breath Sounds, Prolonged Expiratory Phase, Rales, Wheezes, NORMAL BREATHING PATTERN - Cardiovascular Exam Cardiovascular Exam: REGULAR RHYTHM, +S1, +S2. absent: Murmur - GI/Abdominal Exam GI & Abdominal Exam: Soft, Normal Bowel Sounds. absent: Tenderness - Rectal Exam Rectal Exam: NORMAL INSPECTION - Extremities Exam Extremities Exam: Full ROM, Normal Capillary Refill, Normal Inspection. absent : Joint Swelling, Pedal Edema - Back Exam Back Exam: NORMAL INSPECTION - Neurological Exam Neurological Exam: Alert, Awake, CN II-XII Intact, Normal Gait, Oriented x3 - Psychiatric Exam Psychiatric exam: Normal Affect, Normal Mood - Skin Skin Exam: Dry, Intact, Normal Color, Warm Assessment and Plan - Assessment and Plan (Free Text) Assessment: COPD CLINICALLY IMPROVING Plan: D/C IV STEROIDS AND CONTINUE PO OK TO D/C IN AM FROM THE PULMONARY VIEW POINT WILL SIGN OFF CASE AND SEE AGAIN AT YOUR REQUEST
--- NOTE | 2017-04-04 14:07 | CP.PCM.PN ---
Subjective - Date & Time of Evaluation Date of Evaluation: 04/04/17 Time of Evaluation: 14:05 - Subjective Subjective: overnight, IV access lost. Skin doing better. Breathing improved. Denies chest pain, SOB,abd pain. last BM 3 days ago. making urine. Objective - Vital Signs/Intake and Output Vital Signs (last 24 hours): Temp Pulse Resp BP Pulse Ox 98.4 F 65 18 134/66 99 04/04/17 11:38 04/04/17 11:38 04/04/17 11:38 04/04/17 11:38 04/04/17 11:38 - Medications Medications: Current Medications Acetaminophen (Tylenol 325mg Tab) 650 mg PO Q6 PRN PRN Reason: Fever >100.4 F Albuterol/Ipratropium (Duoneb 3 Mg/0.5 Mg (3 Ml) Ud) 3 ml INH RQ6 [facility] Last Admin: 04/04/17 07:24 Dose: 3 ml Azithromycin (Zithromax) 500 mg PO DAILY [facility] Last Admin: 04/04/17 08:47 Dose: 500 mg Clobetasol Propionate (Temovate Cream) 1 applic TOP BID [facility] Last Admin: 04/04/17 08:47 Dose: 1 applic Dextrose (Dextrose 50% Inj) 0 ml IV STAT PRN; Protocol PRN Reason: Hyglycemia Protocol Dextrose (Glutose 15) 0 gm PO ONCE PRN; Protocol PRN Reason: Hypoglycemia Protocol Emollient Ointment (White Petroleum) 1 applic TP Q8 [facility] Last Admin: 04/04/17 08:47 Dose: 1 applic Enoxaparin Sodium (Lovenox) 40 mg SC DAILY [facility] PRN Reason: Protocol Last Admin: 04/04/17 08:48 Dose: 40 mg Glucagon (Glucagen Diagnostic Kit) 0 mg IM STAT PRN; Protocol PRN Reason: Hypoglycemia Protocol Guaifenesin (Mucinex La) 600 mg PO Q12 [facility] Last Admin: 04/04/17 08:48 Dose: 600 mg Hydrochlorothiazide (Microzide) 12.5 mg PO DAILY [facility] Last Admin: 04/04/17 08:46 Dose: 12.5 mg Insulin Human Regular (Humulin R) 0 units SC ACHS [facility] PRN Reason: Protocol Last Admin: 04/04/17 13:18 Dose: Not Given Metformin HCl (Glucophage) 500 mg PO BIDWM [facility] Last Admin: 04/04/17 08:47 Dose: 500 mg Metoprolol Tartrate (Lopressor) 12.5 mg PO Q12 [facility] Last Admin: 04/04/17 08:47 Dose: 12.5 mg Prednisone (Prednisone Tab) 30 mg PO DAILY [facility] Last Admin: 04/04/17 11:04 Dose: Not Given Fluticasone/Salmeterol (Advair Diskus 250/50) 1 puff IH Q12 [facility] Last Admin: 04/04/17 08:46 Dose: 1 puff - Labs Labs: 04/04/17 06:00 04/04/17 06:00 PT 13.3 Seconds (9.8-13.1) H 03/29/17 13:16 INR 1.3 (0.9-1.2) H 03/29/17 13:16 APTT 31.0 Seconds (25.6-37.1) 03/29/17 13:16 - Constitutional Appears: Well, No Acute Distress - Head Exam Head Exam: ATRAUMATIC, NORMAL INSPECTION - Eye Exam Eye Exam: Normal appearance - ENT Exam ENT Exam: Mucous Membranes Moist - Neck Exam Neck Exam: Full ROM, Normal Inspection - Respiratory Exam Respiratory Exam: Rhonchi, Wheezes - Cardiovascular Exam Cardiovascular Exam: REGULAR RHYTHM - GI/Abdominal Exam GI & Abdominal Exam: Soft, Normal Bowel Sounds - Back Exam Back Exam: NORMAL INSPECTION - Neurological Exam Neurological Exam: Alert, Oriented x3 - Skin Skin Exam: Dry, Rash (improved, scaling. no discharge/bleeding), Warm Assessment and Plan - Assessment and Plan (Free Text) Assessment: Assessment: 66 year old male, homeless with a past medical history of COPD , hypertension, asthma, pulmonary embolism s/p IVC admitted with COPD exacerbation Plan: Pulm cleared pt for discharge Wednesday, Pt on IV rocephin and PO azithromycin and PO steroids. will d/c tomorrow with PO steroid taper COPD exacerbation - Duoneb Q6 -c/w Rocephin 1 gm IVP daily day #6 -c/w Azithromycin PO daily day #6 -Prednisone PO -c/w Acetylcysteine 20 % 2 ml inh bid -c/w advair diskus 250/50 1 puff PO Q12 -f/u sputum cuture - Pulm Dr. Beckwith s/o on case HTN -c/w Hydrochlorotiazide 12.5 mg PO daily -c/w Metoprolol T. 12.5 mg PO BID DM type 2 -12/19/16 HgbA1C 6.7 % -c/w Metformin 500 mg BID -c/w Insulin Lispro as per protocol Low dose -accucheck Psoriasis - Clobetasol 0.05 % TOP - ammonium lactate 12 % TOP TID to UE and trunk, dont apply to fissure on LE -petroleum for LE DVT prophylaxis -lovenox 40 mg SC daily Dispo: -d/c with new meds: Meformin 500 mg BID, Hydrochlorotiazide 12.5 mg PO daily, Metoprolol T. 12.5 mg PO BID -SW consult, homeless -likely d/c Mon
[2017-04-05] MEDS: Albuterol-Ipratrop 3 mg / 0.5 (3 ml) UD INH SCH ×3 (01:01→13:09)
[2017-04-05 06:04] LABS: HEMATOCRIT 40.9 % (35.0-51.0); MEAN CELL VOLUME 86.1 fl (80.0-94.0); MEAN CORPUSCULAR HEMOGLOBIN 27.8 pg (27.0-31.0); MEAN CORPUSCULAR HGB CONC 32.3 g/dL (33.0-37.0); RED CELL DISTRIBUTION WIDTH 16.1 % (11.5-14.5); WHITE BLOOD COUNT 11.4 K/uL (4.8-10.8)
[2017-04-05 06:26] LABS: BLOOD UREA NITROGEN 31 mg/dl (9-20); CALCIUM 9.1 mg/dL (8.4-10.2); CARBON DIOXIDE 30 mmol/L (22-30); CHLORIDE 99 mmol/L (98-107); GFR AFRICAN-AMERICAN > 60; GLUCOSE,RANDOM 100 mg/dL (75-110); SODIUM 138 mmol/l (132-148)
--- NOTE | 2017-04-05 08:50 | CP.PCM.PN ---
Objective - Vital Signs/Intake and Output Vital Signs (last 24 hours): Temp Pulse Resp BP Pulse Ox 98.2 F 67 20 124/67 95 04/05/17 08:00 04/05/17 08:00 04/05/17 08:00 04/05/17 08:00 04/05/17 08:00 - Medications Medications: Current Medications Acetaminophen (Tylenol 325mg Tab) 650 mg PO Q6 PRN PRN Reason: Fever >100.4 F Albuterol/Ipratropium (Duoneb 3 Mg/0.5 Mg (3 Ml) Ud) 3 ml INH RQ6 [facility] Last Admin: 04/05/17 07:42 Dose: 3 ml Azithromycin (Zithromax) 500 mg PO DAILY [facility] Last Admin: 04/04/17 08:47 Dose: 500 mg Clobetasol Propionate (Temovate Cream) 1 applic TOP BID [facility] Last Admin: 04/04/17 16:47 Dose: 1 applic Dextrose (Dextrose 50% Inj) 0 ml IV STAT PRN; Protocol PRN Reason: Hyglycemia Protocol Dextrose (Glutose 15) 0 gm PO ONCE PRN; Protocol PRN Reason: Hypoglycemia Protocol Emollient Ointment (White Petroleum) 1 applic TP Q8 [facility] Last Admin: 04/04/17 16:46 Dose: 1 applic Enoxaparin Sodium (Lovenox) 40 mg SC DAILY [facility] PRN Reason: Protocol Last Admin: 04/04/17 08:48 Dose: 40 mg Glucagon (Glucagen Diagnostic Kit) 0 mg IM STAT PRN; Protocol PRN Reason: Hypoglycemia Protocol Guaifenesin (Mucinex La) 600 mg PO Q12 [facility] Last Admin: 04/04/17 21:48 Dose: 600 mg Hydrochlorothiazide (Microzide) 12.5 mg PO DAILY [facility] Last Admin: 04/04/17 08:46 Dose: 12.5 mg Insulin Human Regular (Humulin R) 0 units SC ACHS [facility] PRN Reason: Protocol Last Admin: 04/04/17 16:47 Dose: 1 unit Metformin HCl (Glucophage) 500 mg PO BIDWM [facility] Last Admin: 04/04/17 16:47 Dose: 500 mg Metoprolol Tartrate (Lopressor) 12.5 mg PO Q12 [facility] Last Admin: 04/04/17 21:47 Dose: 12.5 mg Prednisone (Prednisone Tab) 30 mg PO DAILY [facility] Last Admin: 04/04/17 11:04 Dose: Not Given Fluticasone/Salmeterol (Advair Diskus 250/50) 1 puff IH Q12 [facility] Last Admin: 04/04/17 21:46 Dose: 1 puff - Labs Labs: 04/05/17 05:30 04/05/17 05:30 PT 13.3 Seconds (9.8-13.1) H 03/29/17 13:16 INR 1.3 (0.9-1.2) H 03/29/17 13:16 APTT 31.0 Seconds (25.6-37.1) 03/29/17 13:16
[2017-04-05] MEDS: Fluticasone-Salmeterol 250-50mcg Diskus IH SCH (09:17)
[2017-04-05] MEDS: Enoxaparin 40 mg Syringe SC SCH (09:21)
[2017-04-05] MEDS: guaiFENesin 600 mg ER Tab PO SCH (09:21)
[2017-04-05] MEDS: Insulin Regular 100 units/ml SC SCH (09:22)
[2017-04-05] MEDS: White Petroleum Jar TP SCH (09:23)
--- NOTE | 2017-04-05 13:13 | CP.PCM.DIS ---
Provider - Provider Date of Admission: 03/29/17 14:06 Attending physician: Tennille Tavares MD Consults: Pulmonology, Dr. Beckwith Time Spent in preparation of Discharge (in minutes): 30 Diagnosis - Discharge Diagnosis (1) COPD exacerbation Status: Acute Priority: High Comment: improved. F/u with PMD as outpatient. (2) Hypertension Status: Chronic (3) Diabetes mellitus Status: Chronic Comment: type 2, f/u with PMD as outpatient. Hospital Course - Lab Results Lab Results: Micro Results 04/03/17 21:30 Sputum Gram Stain - Final 04/03/17 21:30 Sputum Sputum Culture - Preliminary Gram Negative Josse 03/29/17 15:03 Blood-Venous Blood Culture - Final NO GROWTH AFTER 5 DAYS 03/29/17 15:03 Blood-Venous Gram Stain - Final TEST NOT PERFORMED 03/29/17 15:03 Blood-Venous Blood Culture - Final NO GROWTH AFTER 5 DAYS 03/29/17 15:03 Blood-Venous Gram Stain - Final TEST NOT PERFORMED 03/29/17 14:53 Urine Urine Culture - Final No Growth (<1,000 CFU/ML) Most Recent Lab Values WBC 11.4 K/uL (4.8-10.8) H 04/05/17 05:30 RBC 4.75 Mil/uL (4.40-5.90) 04/05/17 05:30 Hgb 13.2 g/dL (12.0-18.0) 04/05/17 05:30 Hct 40.9 % (35.0-51.0) 04/05/17 05:30 MCV 86.1 fl (80.0-94.0) 04/05/17 05:30 MCH 27.8 pg (27.0-31.0) 04/05/17 05:30 MCHC 32.3 g/dL (33.0-37.0) L 04/05/17 05:30 RDW 16.1 % (11.5-14.5) H 04/05/17 05:30 Plt Count 297 K/uL (130-400) 04/05/17 05:30 MPV 8.0 fl (7.2-11.7) 04/04/17 06:00 Neut % (Auto) 70.2 % (50.0-75.0) 04/04/17 06:00 Lymph % (Auto) 17.9 % (20.0-40.0) L 04/04/17 06:00 [place] % (Auto) 11.4 % (0.0-10.0) H 04/04/17 06:00 Eos % (Auto) 0.0 % (0.0-4.0) 04/04/17 06:00 Baso % (Auto) 0.5 % (0.0-2.0) 04/04/17 06:00 Neut # 7.7 K/uL (1.8-7.0) H 04/04/17 06:00 Lymph # 2.0 K/uL (1.0-4.3) 04/04/17 06:00 [place] # 1.3 K/uL (0.0-0.8) H 04/04/17 06:00 Eos # 0.0 K/uL (0.0-0.7) 04/04/17 06:00 Baso # 0.1 K/uL (0.0-0.2) 04/04/17 06:00 PT 13.3 Seconds (9.8-13.1) H 03/29/17 13:16 INR 1.3 (0.9-1.2) H 03/29/17 13:16 APTT 31.0 Seconds (25.6-37.1) 03/29/17 13:16 pO2 68 mm/Hg (30-55) H 03/29/17 16:30 VBG pH 7.40 (7.32-7.43) 03/29/17 16:30 VBG pCO2 36 mmHg (40-60) L 03/29/17 16:30 VBG HCO3 23.3 mmol/L 03/29/17 16:30 VBG Total CO2 23.4 mmol/L (22-28) 03/29/17 16:30 VBG O2 Sat (Calc) 98.3 % (40-65) H 03/29/17 16:30 VBG Base Excess -2.0 mmol/L (0.0-2.0) L 03/29/17 16:30 VBG Potassium 3.8 mmol/L (3.6-5.2) 03/29/17 16:30 Sodium 138.0 mmol/L (132-148) 03/29/17 16:30 Chloride 109.0 mmol/L (98-107) H 03/29/17 16:30 Glucose 114 mg/dL (75-110) H 03/29/17 16:30 Lactate 1.8 mmol/L (0.7-2.1) 03/29/17 16:30 FiO2 21.0 % 03/29/17 16:30 Sodium 138 mmol/l (132-148) 04/05/17 05:30 Potassium 4.0 MMOL/L (3.6-5.0) 04/05/17 05:30 Chloride 99 mmol/L (98-107) 04/05/17 05:30 Carbon Dioxide 30 mmol/L (22-30) 04/05/17 05:30 Anion Gap 13 (10-20) 04/05/17 05:30 BUN 31 mg/dl (9-20) H 04/05/17 05:30 Creatinine 1.1 mg/dL (0.8-1.5) 04/05/17 05:30 Est GFR ( Amer) > 60 04/05/17 05:30 Est GFR (Non-Af Amer) > 60 04/05/17 05:30 POC Glucose (mg/dL) 101 mg/dL (65-110) 04/05/17 11:49 Random Glucose 100 mg/dL (75-110) 04/05/17 05:30 Calcium 9.1 mg/dL (8.4-10.2) 04/05/17 05:30 Total Bilirubin 0.3 mg/dl (0.2-1.3) 04/04/17 06:00 AST 23 U/L (17-59) 04/04/17 06:00 ALT 28 U/L (21-72) 04/04/17 06:00 Alkaline Phosphatase 48 U/L (38-126) 04/04/17 06:00 Troponin I < 0.0120 ng/mL (0.00-0.120) 03/29/17 13:00 NT-Pro-B Natriuret Pep 320 pg/ml (0-900) 03/29/17 13:00 Total Protein 6.7 G/DL (6.3-8.2) 04/04/17 06:00 Albumin 3.5 g/dL (3.5-5.0) 04/04/17 06:00 Globulin 3.1 gm/dL (2.2-3.9) 04/04/17 06:00 Albumin/Globulin Ratio 1.1 (1.0-2.1) 04/04/17 06:00 Procalcitonin 0.07 NG/ML (0.19-0.49) L 03/29/17 16:20 Free T4 1.12 ng/dL (0.78-2.19) 03/29/17 16:20 Free T3 pg/mL 3.81 pg/mL (2.77-5.27) 03/29/17 16:20 TSH 3rd Generation 0.50 mIU/ML (0.46-4.68) 03/29/17 16:20 Venous Blood Potassium 3.8 mmol/L (3.6-5.2) 03/29/17 16:30 Urine Color Yellow (YELLOW) 03/29/17 14:56 Urine Clarity Clear (Clear) 03/29/17 14:56 Urine pH 5.0 (5.0-8.0) 03/29/17 14:56 Ur Specific [place] 1.014 (1.003-1.030) 03/29/17 14:56 Urine Protein 30 mg/dL (NEGATIVE) 03/29/17 14:56 Urine Glucose (UA) Neg mg/dL (Normal) 03/29/17 14:56 Urine Ketones Negative mg/dL (NEGATIVE) 03/29/17 14:56 Urine Blood Small (NEGATIVE) 03/29/17 14:56 Urine Nitrate Negative (NEGATIVE) 03/29/17 14:56 Urine Bilirubin Negative (NEGATIVE) 03/29/17 14:56 Urine Urobilinogen 0.2-1.0 mg/dL (0.2-1.0) 03/29/17 14:56 Ur Leukocyte Esterase Neg [place]/uL (Negative) 03/29/17 14:56 Urine RBC (Auto) 5 /hpf (0-3) H 03/29/17 14:56 Urine Microscopic WBC < 1 /hpf (0-5) 03/29/17 14:56 - Hospital Course Hospital Course: 66 year old male, homeless with a past medical history of COPD , hypertension, asthma, pulmonary embolism s/p IVC admitted with COPD exacerbation and SIRS. During admission possible severe sepsis noted in ED was ruled out. Patient's symptoms were managed with Bronchodilator, Steroids, and antibiotics. Pulmonology was consulted, and doses were adjusted as per his recommendations. Patient respiratory symptoms improved significantly. Patient has been afebrile during admission. Mild leukocytosis was noted today and yesterday most likely secondary to steroids therapy. Urine culture and blood cultures negative after 5 days. We started Hctz low dose for BP management, as well as started Metoprolol T. 12.5 mg Q12 for BP control, and discontinued lisinopril because cough is a common side effect, and DC amlodipine because could be associated with pedal edema ( patient has a chronic lower extremities edema). During admission patient had one hypoglycemic episode in home glipizide, and was discontinued, but c/w metformin for DM type management. Questionable 5 mm density in the right upper lobe was mention in f/u CXR ( no mention in admission CXR), requires f/u as outpatient, and can be considered chest CT scan. Patient stable to be discharge and will f/u with PMD at [facility] on 04/16/17 at 1:40 pm. Appointment was made and given to patient. Discharge home medications Prednisone 10 mg take 2 tabs daily x 5 days, then 1 tab daily for 5 days New on admission Metformin 500 mg 1 tab BID Hctz 12.5 mg take 1 tab daily PO New on admission Metoprolol Tartrate 25 mg take 1/2 (12.5 mg) every 12 hours New on admission Simvastatin 40 mg 1 tab HS New on admission Ventolin HFA 180 mcg 2 puff inh every 4-6 hours as needed for SOB and wheezing Triamcinolone Acet 0.1 % cream apply over affected skin twice a day New med Advair Diskus 250/50 1 puff Q12 New on admission Discontinued meds on admission -Glipizide 5 mg PO daily because hypoglycemic event on admission -Lisinopril because common side effects is cough -Amlodipine because chronic edema in lower ext - Date & Time of H&P Date of H&P: 03/29/17 Time of H&P: 16:00 Discharge Exam - Head Exam Head Exam: ATRAUMATIC, NORMAL INSPECTION - Eye Exam Eye Exam: Normal appearance - ENT Exam ENT Exam: Mucous Membranes Moist - Respiratory Exam Respiratory Exam: Rhonchi (scant, diffuse rhonchi to auscultation), NORMAL BREATHING PATTERN. absent: Accessory Muscle Use, Chest Wall Tenderness, Decreased Breath Sounds, Rales, Wheezes, Respiratory Distress, Stridor - Cardiovascular Exam Cardiovascular Exam: REGULAR RHYTHM, +S1, +S2 - GI/Abdominal Exam GI & Abdominal Exam: Normal Bowel Sounds, Soft. absent: Distended, Guarding, Rigid, Tenderness - Extremities Exam Additional comments: chronic bilateral below knee no pitting edema. - Neurological Exam Neurological exam: Alert, Oriented x3 - Skin Skin Exam: Dry, Intact, Normal Color Discharge Plan - Discharge Medications Prescriptions: Albuterol HFA [Ventolin HFA 90 mcg/actuation (8 g)] 180 mcg IH PRN PRN #1 puff PRN Reason: Wheezing hydroCHLOROthiazide [Microzide] 12.5 mg PO DAILY #30 cap metFORMIN [glucOPHAGE] 500 mg PO BIDWM #60 tab Metoprolol Tartrate [Lopressor] 12.5 mg PO Q12 #30 tab predniSONE [predniSONE Tab] 10 mg PO DAILY #30 tab Simvastatin [Zocor] 40 mg PO HS #30 tablet Triamcinolone 0.1% [Triamcinolone 0.1% Cream] 0.1 % TP BID #1 tube - Follow Up Plan Condition: STABLE Disposition: HOME/ ROUTINE Patient education suggested?: Yes Instructions: COPD (Chronic Obstructive Pulmonary Disease) (DC), Community Acquired Pneumonia (DC) Additional Instructions: F/u with PMD on Apr 16 @ 1:[address] Tian at [facility] Information for Dermatology/Rheumatology specialty clinic for [facility] given. ER precautions given Referrals: [facility] [place] [Outside] Willie Lauren MD [Staff Provider] -
[2017-04-05 15:51] VITALS: BP 136/60; PULSE 92; RESP 20; TEMP 98.1; O2SAT 97
== END 2017-04-05 17:00 | disposition home or self-care (01) | DRG 541 ==
LOC: H.ER 12:04 → H.ERHOLD 14:06 → H.TEL 19:03
PROVIDERS: ADMIT Family Medicine Geriatric Medicine; ATTEND Family Medicine Geriatric Medicine
DX: J44.1 Chronic obstructive pulmonary disease with (acute) exacerbation (principal); R65.10 Systemic inflammatory response syndrome (SIRS) of non-infectious origin without acute organ dysfunction; I11.0 Hypertensive heart disease with heart failure; I50.9 Heart failure, unspecified; E11.649 Type 2 diabetes mellitus with hypoglycemia without coma; J44.0 Chronic obstructive pulmonary disease with (acute) lower respiratory infection; J06.9 Acute upper respiratory infection, unspecified; L40.9 Psoriasis, unspecified; Z79.84 Long term (current) use of oral hypoglycemic drugs; Z86.711 Personal history of pulmonary embolism; Z87.01 Personal history of pneumonia (recurrent); Z87.891 Personal history of nicotine dependence; Z59.0 Homelessness

== ENCOUNTER 2017-05-02 11:49 | Inpatient (IN) | payer OTHER, SELFPAY ==
[2017-05-02] MEDS ORDERED: Albuterol-Ipratrop 3 mg / 0.5 (3 ml) UD IH STA (12:11)
[2017-05-02] MEDS ORDERED: Albuterol-Ipratrop 3 mg / 0.5 (3 ml) UD INH STA (12:11)
[2017-05-02] MEDS ORDERED: Sodium Chloride 0.9% 500 ML IV SCH (12:15)
--- NOTE | 2017-05-02 12:20 | ED PDOC ---
HPI: SOB/CHF/COPD Time Seen by Provider: 05/02/17 12:00 Chief Complaint (Provider): Cough History Per: Patient History/Exam Limitations: no limitations Onset/Duration Of Symptoms: Days (x3) Current Symptoms Are (Timing): Still Present Exacerbating Factor(s): Coughing Current Respiratory Medications: None Associated Symptoms: Sweating, Chest Pain, Productive Cough Additional Complaint(s): Preet Brown is a 66 y/o non-domiciled male with a past medical history of asthma , COPD, and psoriasis, who presents to the ED complaining of cough with associated shortness of breath, diaphoresis, and chest pain, worsening for the past 3 days. Also reports worsening psoriasis of the upper and lower extremities. Cough has been productive of brown phlegm. Patient is not taking any home medications for relief of symptoms. Additionally, patient reports having 2 episodes of non-bloody diarrhea this morning. No vomiting, nausea, headache, dizziness, weakness, numbness, or fever. PMD: None Past Medical History Reviewed: Historical Data, Nursing Documentation, Vital Signs Vital Signs: Last Vital Signs Temp 99.2 F 05/02/17 14:32 Pulse 121 H 05/02/17 14:32 Resp 22 05/02/17 14:32 BP 118/44 L 05/02/17 14:32 Pulse Ox 95 05/02/17 14:32 - Medical History PMH: Asthma, CHF, COPD, Diabetes, HTN, Pneumonia, Pulmonary Embolism Denies: HIV, Chronic Kidney Disease Other PMH: Psoriasis - Family History Family History: States: [place], Diabetes - Immunization History Hx Tetanus Toxoid Vaccination: No Hx Influenza Vaccination: No Hx Pneumococcal Vaccination: No - Home Medications Home Medications: Ambulatory Orders Medication Instructions Recorded Albuterol HFA [Ventolin HFA 90 180 mcg IH PRN PRN #1 puff 04/05/17 mcg/actuation (8 g)] Fluticasone/Salmeterol 250/50 1 puff IH Q12 puff 04/05/17 [Advair Diskus 250/50] Metoprolol Tartrate [Lopressor] 12.5 mg PO Q12 #30 tab 04/05/17 Simvastatin [Zocor] 40 mg PO HS #30 tablet 04/05/17 Triamcinolone 0.1% [Triamcinolone 0.1 % TP BID #1 tube 04/05/17 0.1% Cream] hydroCHLOROthiazide [Microzide] 12.5 mg PO DAILY #30 cap 04/05/17 metFORMIN [glucOPHAGE] 500 mg PO BIDWM #60 tab 04/05/17 predniSONE [predniSONE Tab] 10 mg PO DAILY #30 tab 04/05/17 - Allergies Allergies/Adverse Reactions: Allergies Allergy/AdvReac Type Severity Reaction Status Date / Time No Known Allergies Allergy Verified 12/18/16 18:49 Review of Systems ROS Statement: Except As Marked, All Systems Reviewed And Found Negative Constitutional: Positive for: Sweats. Negative for: Fever Cardiovascular: Positive for: Chest Pain Respiratory: Positive for: Cough, Shortness of Breath, Sputum Gastrointestinal: Positive for: Diarrhea. Negative for: Nausea, Vomiting, Abdominal Pain, Hematochezia Musculoskeletal: Positive for: Leg Pain (due to psoriasis, chronic per patient) Neurological: Negative for: Weakness, Numbness, Headache, Dizziness Physical Exam - Reviewed Nursing Documentation Reviewed: Yes Vital Signs Reviewed: Yes - Physical Exam Appears: Positive for: Non-toxic, No Acute Distress Head Exam: Positive for: ATRAUMATIC, NORMAL INSPECTION, NORMOCEPHALIC Skin: Positive for: Normal Color, Warm, Dry Eye Exam: Positive for: EOMI, Normal appearance, PERRL ENT: Positive for: Normal ENT Inspection Neck: Positive for: Normal, Painless ROM, Supple Cardiovascular/Chest: Positive for: Tachycardia (mild). Negative for: Murmur Respiratory: Positive for: Decreased Breath Sounds, Wheezing (mild) Gastrointestinal/Abdominal: Positive for: Normal Exam, Soft. Negative for: Tenderness Extremity: Positive for: Normal ROM, Other (Diffuse psoriasis throughout body, most severe at lower legs. No discharge noted. Non-tender.). Negative for: Tenderness, Pedal Edema, Deformity Neurologic/Psych: Positive for: Alert, Oriented. Negative for: Motor/Sensory Deficits - Laboratory Results Result Diagrams: 05/02/17 12:30 05/02/17 12:30 Interpretation Of Abn Labs: no acute - ECG ECG: Positive for: Interpreted By Me, Viewed By Me ECG Rhythm: Positive for: Sinus Tachycardia O2 Sat by Pulse Oximetry: 97 (RA) Pulse Ox Interpretation: Normal - Radiology X-Ray: Read By Radiologist X-Ray Interpretation: No Acute Disease - Progress ED Course And Treament: 1449: Stable. AAOx3. Will need admit for copd exac. Noncompliant with meds. Spoke with [facility] resident. Will admit obs tele. No chest pain. Medical Decision Making Medical Decision Making: Time: 12:09 Initial Plan: --EKG --PTT --Prothrombin time --CBC --B-type natriuretic peptide --Magnesium --Phosphorous --Troponin I --CMP --Blood and urine cultures --NS IV 500 ml at 100 mls/hr --chest x-ray --Urinalysis --Pending reevaluation Time: 12:11 --Patient given Duoneb nebulizer treatments and SOLU-Medrol IV --Ordered Peak Flow pre/post treatment Time: 12:38 Chest x-ray: FINDINGS: LUNGS: There is poor expiratory effort when compared to the prior study with mild subsegmental atelectasis and volume loss although some persistent linear scarring is seen at the left lung base. No new focal infiltrate is seen. PLEURA: No significant pleural effusion identified, no pneumothorax apparent. CARDIOVASCULAR: Unchanged OSSEOUS STRUCTURES: No significant abnormalities. VISUALIZED UPPER ABDOMEN: Normal. OTHER FINDINGS: None. IMPRESSION: Mild bibasilar volume loss with mild linear platelike stable scarring at the left lung base. No pneumothorax or CHF. Scribe Attestation: Documented by Shobha Fowler, acting as a scribe for Ras Conti MD Provider Scribe Attestation: All medical record entries made by the Scribe were at my direction and personally dictated by me. I have reviewed the chart and agree that the record accurately reflects my personal performance of the history, physical exam, medical decision making, and the department course for this patient. I have also personally directed, reviewed, and agree with the discharge instructions and disposition. Disposition - Clinical Impression Clinical Impression: Acute exacerbation of chronic obstructive pulmonary disease - Patient ED Disposition Is Patient to be Admitted: Yes Counseled Patient/Family Regarding: Studies Performed, Diagnosis - Disposition Disposition Time: 14:52 Condition: FAIR - Pt Status Changed To: Hospital Disposition Of: Observation - POA Present On Arrival: None
[2017-05-02] MEDS ORDERED: Albuterol-Ipratrop 3 mg / 0.5 (3 ml) UD ONE (12:22)
[2017-05-02] MEDS: Albuterol-Ipratrop 3 mg / 0.5 (3 ml) UD IH STA ×2 (12:24→12:25)
--- NOTE | 2017-05-02 12:39 | RAD ---
HISTORY: Sepsis Patient COMPARISON: 04/03/2017 FINDINGS: LUNGS: There is poor expiratory effort when compared to the prior study with mild subsegmental atelectasis and volume loss although some persistent linear scarring is seen at the left lung base. No new focal infiltrate is seen. PLEURA: No significant pleural effusion identified, no pneumothorax apparent. CARDIOVASCULAR: Unchanged OSSEOUS STRUCTURES: No significant abnormalities. VISUALIZED UPPER ABDOMEN: Normal. OTHER FINDINGS: None. IMPRESSION: Mild bibasilar volume loss with mild linear platelike stable scarring at the left lung base. No pneumothorax or CHF.
[2017-05-02 12:51] LABS: ALKALINE PHOSPHATASE 68 U/L (38-126); ALT/SGPT 21 U/L (21-72); AST/SGOT 51 U/L (17-59); BASO % 0.5 % (0.0-2.0); BILIRUBIN,TOTAL 1.1 mg/dl (0.2-1.3); BLOOD UREA NITROGEN 10 mg/dl (9-20); CARBON DIOXIDE 22 mmol/L (22-30); CHLORIDE 105 mmol/L (98-107); EOS # 0.3 K/uL (0.0-0.7); EOS % 3.6 % (0.0-4.0); GFR AFRICAN-AMERICAN > 60; GLUCOSE,RANDOM 85 mg/dL (75-110); HEMATOCRIT 37.7 % (35.0-51.0); LYMPH # 2.9 K/uL (1.0-4.3); LYMPH % 30.9 % (20.0-40.0); MAGNESIUM 1.4 MG/DL (1.6-2.3); MEAN CELL VOLUME 84.4 fl (80.0-94.0); MEAN CORPUSCULAR HEMOGLOBIN 27.8 pg (27.0-31.0); MEAN CORPUSCULAR HGB CONC 32.9 g/dL (33.0-37.0); MEAN PLATELET VOLUME 8.7 fl (7.2-11.7); MONO # 1.4 K/uL (0.0-0.8); MONO % 14.5 % (0.0-10.0); NEUT # 4.8 K/uL (1.8-7.0); NEUT % 50.5 % (50.0-75.0); PHOSPHOROUS 3.6 mg/dl (2.5-4.5); RED CELL DISTRIBUTION WIDTH 16.6 % (11.5-14.5); SODIUM 139 mmol/l (132-148); TOTAL PROTEIN 7.8 G/DL (6.3-8.2); WHITE BLOOD COUNT 9.4 K/uL (4.8-10.8)
[2017-05-02 12:54] LABS: POTASSIUM 5.2 MMOL/L (3.6-5.0)
[2017-05-02 12:55] LABS: ABG ALLEN TEST YES; ARTERIAL BLOOD GAS HCO3 25.7 mmol/L (21-28); ARTERIAL BLOOD GAS PH 7.45 (7.35-7.45); ARTERIAL BLOOD GAS PO2 65 mm/Hg (80-100)
[2017-05-02 12:57] LABS: PARTIAL THROMBOPLASTIN TIME 30.7 Seconds (25.6-37.1)
[2017-05-02] MEDS ORDERED: Magnesium Sulfate 2 gm/50 ml 2 GM/50 ML BAG IVPB ONE (14:50)
[2017-05-02 15:02] LABS: RBC URINE 3 /hpf (0-3); URINE BILIRUBIN NEGATIVE (NEGATIVE); URINE BLOOD NEGATIVE (NEGATIVE); URINE COLOR YELLOW (YELLOW); URINE GLUCOSE (UA) NEG (Normal); URINE KETONE TRACE mg/dL (NEGATIVE); URINE LEUKOCYTE ESTERASE NEG Leu/uL (Negative); URINE PROTEIN 100 mg/dL (NEGATIVE); URINE UROBILINOGEN 0.2-1.0 mg/dL (0.2-1.0); WBC URINE 1 /hpf (0-5)
[2017-05-02] MEDS ORDERED: Magnesium Sulfate 2 gm/50 ml 2 GM/50 ML BAG ONE (16:01)
--- NOTE | 2017-05-02 16:32 | CP.PCM.HP ---
History of Present Illness - History of Present Illness History of Present Illness: 66 yo ,m, homeless, PMhx/o, COPD , HTN, Athma, PE (not on anticoagulation because of history of retroperitoneal hematoma) s/p IVC filter, psoriasis who presents to ED by himself c/o shortness of breath on exertion started today in the afternoon 12 pm while he was walking down a hill 3 blocks, associated with chest pain left side, radiated to left arm, 5/10 in intensity in ER,not alleviating or aggravating factor, not related with inspiration. He also reports productive cough with brown color expectoration started 4 days ago with increased sputum volume, transparent the first day and now brown color, associated with subjective fever started yesterday night and this morning. Patient also reports 1 nonbillious nonbloddy vomiting yesterday and 2 nonbloddy diarrheas yesterday. He denies orthopnea, PND, leg swelling, leg trauma, nausea, pyrosis, hemoptysis, recent travel. Reports last episode of chest pain 2 months ago. Patient reports has not been taking his medications for the last 2 days and showed me albuterol and symbicort pump empty. Reports has been living in a senior care for the last 2 year PMD none PMHx - CPOD, DM, HTN, Asthma, PE (IVC filter), psoriasis Meds: Has not been taking meds for the last 2 days as per patient. Symbicort inh and albuterol inh. Allergies - NKDA Surg - none Fam Hx - unknown Social - 30 pack year history quit 1 year ago used to smoke 3-4 packs a day, used to drink a lot, denies drug use. Living in a senior care. ED course VS: BP: 118/44 HR: 121 Temp: 99.2 O2 sat 95 RR: 22 PE: Chest: Patient AAO x 3, able to talk in full sentences in not acute respiratory distress. Diminished breath sound right lung base, rhonchi on whole expiration ant and post chest. rales right lung base CV: Reproducible chest pain. RRR, +S1, S2 Tachycardia 120 skin: skin changes, dry skin, Psoriasis plaques all over body on trunk and all extremities Labs: 9.4 >12.4/37.7<222 CMP normal. M.4 troponin x1 neg Imaging: CXR: Mild bibasilar volume loss with mild linear platelike stable scarring at the left lung base. no pneumothorax or CHF ECG: Sinus tachycardia HR: 124 Meds: Duoneb x 3. Solumedrol 125 mg IV, MG sulfate. Present on Admission - Present on Admission Any Indicators Present on Admission: No History of DVT/PE: Yes History of Uncontrolled Diabetes: No Urinary Catheter: No Decubitus Ulcer Present: No Review of Systems - Cardiovascular Cardiovascular: Chest Pain - Respiratory Respiratory: Dyspnea, Dyspnea on Exertion - Gastrointestinal Gastrointestinal: Diarrhea, Vomiting Past Patient History - Infectious Disease Hx of Infectious Diseases: None - Tetanus Immunizations Tetanus Immunization: Unknown - Past Medical History & Family History Past Medical History?: Yes - Past Social History Smoking Status: Former Smoker - CARDIAC Hx Congestive Heart Failure: Yes Hx Hypertension: Yes - PULMONARY Hx Asthma: Yes Hx Chronic Obstructive Pulmonary Disease (COPD): Yes Hx Pneumonia: Yes Hx Pulmonary Embolism: Yes - NEUROLOGICAL Hx Neurological Disorder: No - HEENT Hx HEENT Problems: No - RENAL Hx Chronic Kidney Disease: No - ENDOCRINE/METABOLIC Hx Diabetes Mellitus Type 2: Yes - HEMATOLOGICAL/ONCOLOGICAL Hx Human Immunodeficiency Virus (HIV): No - INTEGUMENTARY Hx Dermatological Problems: Yes (GENERALIZED SKIN PSORIASIS) Hx Psoriasis: Yes - MUSCULOSKELETAL/RHEUMATOLOGICAL Hx Musculoskeletal Disorders: No Hx Falls: No - GASTROINTESTINAL Hx Gastrointestinal Disorders: Yes Other/Comment: GI bleeding on last admission while on anti-coagulation - GENITOURINARY/GYNECOLOGICAL Hx Genitourinary Disorders: No - PSYCHIATRIC Hx Psychophysiologic Disorder: No Hx Substance Use: No - SURGICAL HISTORY Hx Surgeries: No - ANESTHESIA Hx Anesthesia: Yes Hx Anesthesia Reactions: No Hx Malignant Hyperthermia: No Meds Allergies/Adverse Reactions: Allergies Allergy/AdvReac Type Severity Reaction Status Date / Time No Known Allergies Allergy Verified 12/18/16 18:49 Physical Exam - Constitutional Appears: Non-toxic, No Acute Distress - Head Exam Head Exam: ATRAUMATIC, NORMOCEPHALIC - Eye Exam Eye Exam: Normal appearance - Neck Exam Neck exam: Positive for: Normal Inspection - Respiratory Exam Respiratory Exam: Rales, Rhonchi Additional comments: able to talk in full sentences in not acute respiratory distress. Diminished breath sound right lung base, rhonchi on whole expiration ant and post chest. rales right lung base - Cardiovascular Exam Cardiovascular Exam: Tachycardia, REGULAR RHYTHM, +S1, +S2 Additional comments: Reproducible chest pain - GI/Abdominal Exam GI & Abdominal Exam: Normal Bowel Sounds, Soft. absent: Guarding, Tenderness - Extremities Exam Extremities exam: Negative for: pedal edema, tenderness Additional comments: B/L leg with chronic lichenification of the skin and psoriasis. - Neurological Exam Neurological exam: Alert, Oriented x3 - Psychiatric Exam Psychiatric exam: Normal Affect - Skin Skin Exam: Dry Additional comments: skin changes, dry skin, Psoriasis plaques all over body on trunk and all extremities Results - Vital Signs Recent Vital Signs: Last Vital Signs Temp 99.6 F 05/02/17 15:57 Pulse 119 H 05/02/17 15:57 Resp 20 05/02/17 15:57 BP 109/65 05/02/17 15:57 Pulse Ox 100 05/02/17 15:57 - Labs Result Diagrams: 05/02/17 12:30 05/02/17 12:30 Labs: Laboratory Results - last 24 hr 05/02/17 05/02/17 05/02/17 12:19 12:30 12:30 WBC 9.4 RBC 4.47 Hgb 12.4 Hct 37.7 MCV 84.4 MCH 27.8 MCHC 32.9 L RDW 16.6 H Plt Count 222 MPV 8.7 Neut % (Auto) 50.5 Lymph % (Auto) 30.9 [place] % (Auto) 14.5 H Eos % (Auto) 3.6 Baso % (Auto) 0.5 Neut # 4.8 Lymph # 2.9 [place] # 1.4 H Eos # 0.3 Baso # 0.0 PT INR APTT pCO2 36 pO2 65 L HCO3 25.7 ABG pH 7.45 ABG Total CO2 26.1 ABG O2 Saturation 98.2 H ABG Base Excess 1.2 Slim Test Yes ABG Potassium 3.8 A-a O2 Difference 40.0 Sodium 135.0 139 Chloride 105.0 105 Glucose 102 Lactate 1.0 FiO2 21.0 Potassium 5.2 H Carbon Dioxide 22 Anion Gap 17 BUN 10 Creatinine 0.9 Est GFR ( Amer) > 60 Est GFR (Non-Af Amer) > 60 Random Glucose 85 Calcium 8.0 L Phosphorus 3.6 Magnesium 1.4 L Total Bilirubin 1.1 AST 51 ALT 21 D Alkaline Phosphatase 68 Troponin I 0.0170 NT-Pro-B Natriuret Pep 255 Total Protein 7.8 Albumin 3.9 Globulin 3.9 Albumin/Globulin Ratio 1.0 Arterial Blood Potassium 3.8 Urine Color Urine Clarity Urine pH Ur Specific [place] Urine Protein Urine Glucose (UA) Urine Ketones Urine Blood Urine Nitrate Urine Bilirubin Urine Urobilinogen Ur Leukocyte Esterase Urine RBC (Auto) Urine Microscopic WBC Hyaline Casts 05/02/17 05/02/17 12:30 14:49 WBC RBC Hgb Hct MCV MCH MCHC RDW Plt Count MPV Neut % (Auto) Lymph % (Auto) [place] % (Auto) Eos % (Auto) Baso % (Auto) Neut # Lymph # [place] # Eos # Baso # PT 13.2 H INR 1.7 H APTT 30.7 pCO2 pO2 HCO3 ABG pH ABG Total CO2 ABG O2 Saturation ABG Base Excess Slim Test ABG Potassium A-a O2 Difference Sodium Chloride Glucose Lactate FiO2 Potassium Carbon Dioxide Anion Gap BUN Creatinine Est GFR ( Amer) Est GFR (Non-Af Amer) Random Glucose Calcium Phosphorus Magnesium Total Bilirubin AST ALT Alkaline Phosphatase Troponin I NT-Pro-B Natriuret Pep Total Protein Albumin Globulin Albumin/Globulin Ratio Arterial Blood Potassium Urine Color Yellow Urine Clarity Clear Urine pH 5.0 Ur Specific [place] 1.016 Urine Protein 100 Urine Glucose (UA) Neg Urine Ketones Trace Urine Blood Negative Urine Nitrate Negative Urine Bilirubin Negative Urine Urobilinogen 0.2-1.0 Ur Leukocyte Esterase Neg Urine RBC (Auto) 3 Urine Microscopic WBC 1 Hyaline Casts 3-5 H Assessment & Plan - Assessment and Plan (Free Text) Plan: 66 yo ,m, homeless, PMhx/o, COPD , HTN, Athma, PE (not on anticoagulation because of history of retroperotineal hematoma) s/p IVC filter, psoriasis who presents to ED by himself and admitted for COPD exacerbation Assessment/Plan 1) COPD exacerbation --O2 NC 4l -Duoneb Q4h lovely -Solumedrol 40 mg Q8h -CBC nl, no fever, no leukocytosis -f/u sputum gram, culture -f/u cbc, cmp, mg, ph - CT chest 02/13 Paraeptal bullous emphysema. 3 mm righ lower lobe nodule for which 1 year f/u is recommended. no pulmonary embolism -Levofloxacin 750 mg PO daily given frequent hospitalizations for COPD exacerbations, the last one 1 month ago. 2) Chest PAin reproducible chest pain, possible costochondritis. To r/o ACS -Troponin x 1 neg in ER -F/u troponin x2 q 8h -Tylenol 650 mg PO PRN pain -F/u troponin x 2 and ECG 3) Hx/o PE and tachycardia Tachycardia could be due to albuterol treatment, consider switching to Xopenex in the AM , if HR persist 4) DM Last HgbA1C was 6.7 % on 12/19/16 Metformin 500 mg BID hold due to diarrhea yesterday -Accucheck ACHS -Insulin sliding scale medium dose protocol 5) HTN -controlled -Metoprolol Tartrate 25 mg take 1/2 (12.5 mg) every 12 hours 6) Diarrhea -had recent hospitalization 1 month ago -c diff toxin -hold metformin. reporting diarrhea yeterday 7) Psoriasis -ammonium lactate 12 % TOP TID 8) DVT prophylaxis s/p IVC filter
[2017-05-02] MEDS ORDERED: Sodium Chloride 3% for Inhalation 4 ML VIAL.NEB IH PRN (17:05)
[2017-05-02] MEDS ORDERED: methylPREDNISolone 40 MG in Sodium Chloride 0.9% 50 ML IV SCH (17:15)
[2017-05-02] MEDS ORDERED: Influenza Vaccine 18yr & older 0.5 ML/45 MCG SYR IM ONE (19:43)
[2017-05-02] MEDS ORDERED: Glucagon Recombinant 1 mg Inj IM PRN (20:20)
[2017-05-02] MEDS ORDERED: Dextrose 50% SYRINGE Inj (50 ml) IV PRN (20:20)
[2017-05-02] MEDS: Insulin Lispro (humaLOG) 100 Units/ml Inj SC SCH (22:44)
[2017-05-02] MEDS: levoFLOXacin 750 MG TAB PO SCH (22:59)
[2017-05-03] MEDS: MethylPREDNISolone 40 mg Vial IVP SCH ×2 (01:07→08:57)
[2017-05-03 05:32] LABS: BASO % 0.2 % (0.0-2.0); HEMATOCRIT 37.5 % (35.0-51.0); LYMPH # 1.1 K/uL (1.0-4.3); LYMPH % 15.2 % (20.0-40.0); MEAN CELL VOLUME 85.1 fl (80.0-94.0); MEAN CORPUSCULAR HEMOGLOBIN 27.7 pg (27.0-31.0); MEAN CORPUSCULAR HGB CONC 32.6 g/dL (33.0-37.0); MEAN PLATELET VOLUME 8.3 fl (7.2-11.7); MONO # 0.4 K/uL (0.0-0.8); MONO % 5.9 % (0.0-10.0); NEUT # 5.7 K/uL (1.8-7.0); NEUT % 78.7 % (50.0-75.0); RED CELL DISTRIBUTION WIDTH 16.2 % (11.5-14.5); WHITE BLOOD COUNT 7.3 K/uL (4.8-10.8)
[2017-05-03 06:51] LABS: ALKALINE PHOSPHATASE 59 U/L (38-126); ALT/SGPT 28 U/L (21-72); AST/SGOT 32 U/L (17-59); BILIRUBIN,TOTAL 0.4 mg/dl (0.2-1.3); BLOOD UREA NITROGEN 17 mg/dl (9-20); CALCIUM 7.9 mg/dL (8.4-10.2); CARBON DIOXIDE 26 mmol/L (22-30); CHLORIDE 104 mmol/L (98-107); GFR AFRICAN-AMERICAN > 60; GLUCOSE,RANDOM 142 mg/dL (75-110); MAGNESIUM 1.7 MG/DL (1.6-2.3); PHOSPHOROUS 2.8 mg/dl (2.5-4.5); POTASSIUM 4.5 MMOL/L (3.6-5.0); SODIUM 141 mmol/l (132-148); TOTAL PROTEIN 7.1 G/DL (6.3-8.2)
[2017-05-03] MEDS: Insulin Lispro (humaLOG) 100 Units/ml Inj SC SCH ×2 (06:56→12:16)
--- NOTE | 2017-05-03 09:59 | CP.PCM.PN ---
Subjective - Date & Time of Evaluation Date of Evaluation: 05/03/17 Time of Evaluation: 09:56 - Subjective Subjective: HD 1 S: Pt was admitted yesterday for COPD exacerbation. No acute overnight events. Pt seen and evaluated this AM by bedside. Pt feeling well this morning, breathing better with NC. Continues to endorse cough and productive sputum- brown in color. No more episodes of emesis or diarrhea since admission to hospital. Denies chest pain, palpitations, n/v/d/c. Objective - Vital Signs/Intake and Output Vital Signs (last 24 hours): Temp Pulse Resp BP Pulse Ox 97.8 F 102 H 20 155/78 H 97 05/03/17 05:00 05/03/17 09:05 05/03/17 05:00 05/03/17 09:05 05/03/17 01:00 - Medications Medications: Current Medications Acetaminophen (Tylenol 325mg Tab) 650 mg PO Q6 PRN PRN Reason: chest pain or fever >100.4 Albuterol/Ipratropium (Duoneb 3 Mg/0.5 Mg (3 Ml) Ud) 3 ml INH RQ4 PRN PRN Reason: Shortness of Breath Dextrose (Dextrose 50% Inj) 0 ml IV STAT PRN; Protocol PRN Reason: Hyglycemia Protocol Dextrose (Glutose 15) 0 gm PO ONCE PRN; Protocol PRN Reason: Hypoglycemia Protocol Glucagon (Glucagen Diagnostic Kit) 0 mg IM STAT PRN; Protocol PRN Reason: Hypoglycemia Protocol Hydrochlorothiazide (Microzide) 12.5 mg PO DAILY [facility] Last Admin: 05/03/17 08:58 Dose: 12.5 mg Insulin Human Lispro (Humalog) 0 units SC ACHS [facility] PRN Reason: Protocol Last Admin: 05/03/17 06:56 Dose: 2 u Lactic Acid (Lac-Hydrin 12% Lotion (225 G)) 1 applic TOP TID [facility] Last Admin: 05/03/17 09:04 Dose: 1 lot Levofloxacin (Levaquin) 750 mg PO DAILY@2200 [facility] Last Admin: 05/02/17 22:59 Dose: 750 mg Methylprednisolone (Solu-Medrol) 40 mg IVP Q8H [facility] Last Admin: 05/03/17 08:57 Dose: 40 mg Metoprolol Tartrate (Lopressor) 12.5 mg PO Q12 [facility] Last Admin: 05/03/17 09:05 Dose: 12.5 mg - Labs Labs: 05/03/17 04:20 05/03/17 04:20 PT 13.2 Seconds (9.8-13.1) H 05/02/17 12:30 INR 1.7 (0.9-1.2) H 05/02/17 12:30 APTT 30.7 Seconds (25.6-37.1) 05/02/17 12:30 - Constitutional Appears: Well, Non-toxic, Other (has extensive psoriasis through the upper extremities, on NC. ) - Head Exam Head Exam: ATRAUMATIC, NORMAL INSPECTION, NORMOCEPHALIC - Eye Exam Eye Exam: EOMI, Normal appearance, PERRL Pupil Exam: NORMAL ACCOMODATION, PERRL - ENT Exam ENT Exam: Mucous Membranes Moist, Normal Exam - Neck Exam Neck Exam: Full ROM, Normal Inspection. absent: Lymphadenopathy - Respiratory Exam Respiratory Exam: Clear to Ausculation Bilateral, Wheezes (audiable wheezing v/ l on inspiration and expiration. ), NORMAL BREATHING PATTERN. absent: Accessory Muscle Use, Chest Wall Tenderness, Respiratory Distress - Cardiovascular Exam Cardiovascular Exam: Tachycardia, REGULAR RHYTHM, +S1, +S2. absent: Murmur - GI/Abdominal Exam GI & Abdominal Exam: Soft, Normal Bowel Sounds. absent: Distended, Guarding, Tenderness - Rectal Exam Rectal Exam: NORMAL INSPECTION - Extremities Exam Extremities Exam: Full ROM, Normal Inspection. absent: Joint Swelling, Pedal Edema Additional comments: sig psoriasis seen throughout the lower extremities b/l - Back Exam Back Exam: NORMAL INSPECTION. absent: CVA tenderness (L), CVA tenderness (R) - Neurological Exam Neurological Exam: Alert, Awake, Normal Gait, Oriented x3 - Psychiatric Exam Psychiatric exam: Normal Affect, Normal Mood - Skin Skin Exam: Dry, Intact, Normal Color, Warm Assessment and Plan - Assessment and Plan (Free Text) Assessment: Assessment/Plan: 66 YO homeless Male with PMH of COPD, HTN, [place], PE (s/p IVC filter), psoriasis who is admitted for COPD exacerbation. Breathing improving. 1) COPD exacerbation -continue O2 4L by NC -Duoneb Q4h lovely -increase Solumedrol 80 mg Q12h -continue Levofloxacin 750 mg PO daily -pt remains afebrile fever, no leukocytosis -cmp, mg and phos wnl -CT chest 02/13 Paraeptal bullous emphysema. 3 mm righ lower lobe nodule for which 1 year f/u is recommended. No pulmonary embolism -f/u sputum gram, culture -pulmonary consult, will follow up 2) Bacteremia -pt remains afebrile, no leukocytosis -blood culture positive for gram neg rods -urine culture neg -start rocephin -continue levoflaxacin -echo ordered, will follow up -ID consullt, will follow up 3) Chest Pain, resolved -pt does not endorse chest pain this AM -Troponin x 3 neg -ekg normal sinus no ST changes -Tylenol 650 mg PO PRN pain 4) Hx of PE and tachycardia -IVC filter in place -tachycardia at 102 bpm -Tachycardia likely 2/2 to albuterol treatment, will follow up 5) DM -Last HgbA1C was 6.7 % on 12/19/16 -Metformin 500 mg BID hold due to diarrhea yesterday -Accucheck ACHS -Insulin sliding scale low dose protocol 6) HTN -controlled -Metoprolol Tartrate 25 mg take 1/2 (12.5 mg) every 12 hours 7) Diarrhea, no episodes since admission to the hospital -recent hospitalization 1 month ago -will consider c diff toxin if diarrhea persists -hold metformin for now, will follow up 8) Psoriasis -ammonium lactate 12 % TOP TID 9) DVT prophylaxis -s/p IVC filter -start Lovenox sbcu
--- NOTE | 2017-05-03 10:46 | CARD ---
APPROVED REPORT EKG Measurement Heart [id number] <Conclusion> Sinus tachycardia Otherwise normal ECG
[2017-05-03] MEDS: Albuterol-Ipratrop 3 mg / 0.5 (3 ml) UD INH PRN ×2 (13:35→20:39)
[2017-05-03] MEDS ORDERED: Dextrose 50% SYRINGE Inj (50 ml) IV PRN (14:07)
[2017-05-03] MEDS ORDERED: Glucagon Recombinant 1 mg Inj IM PRN (14:07)
[2017-05-03] MEDS: Enoxaparin 40 mg Syringe SC SCH (15:35)
[2017-05-03] MEDS: cefTRIAXone 2 GM in Dextrose 5% In Water 100 ML IVPB SCH (15:36)
[2017-05-03] MEDS ORDERED: methylPREDNISolone 80 MG in Sodium Chloride 0.9% 50 ML IVPB SCH (21:00)
[2017-05-03] MEDS: levoFLOXacin 750 MG TAB PO SCH (21:28)
[2017-05-03] MEDS: Insulin Regular 100 units/ml SC SCH (21:29)
[2017-05-04] MEDS: Insulin Regular 100 units/ml SC SCH ×4 (06:33→22:39)
--- NOTE | 2017-05-04 09:07 | CP.PCM.PN ---
Subjective - Date & Time of Evaluation Date of Evaluation: 05/04/17 Time of Evaluation: 09:05 - Subjective Subjective: HD 2 66 YO male admitted for COPD exacerbation S: No acute overnight events. Pt seen and examined by bedside this AM. Pt states that he feels better then yesterday. Pt continues to endorse productive cough, and chills overnight. Denies chest pain, palpitations, dyspnea, n/v/d/c and remains afebrile. Objective - Vital Signs/Intake and Output Vital Signs (last 24 hours): Temp Pulse Resp BP Pulse Ox 98.1 F 76 20 150/73 100 05/04/17 08:17 05/04/17 08:17 05/04/17 08:17 05/04/17 08:17 05/04/17 08:17 - Medications Medications: Current Medications Acetaminophen (Tylenol 325mg Tab) 650 mg PO Q6 PRN PRN Reason: chest pain or fever >100.4 Albuterol/Ipratropium (Duoneb 3 Mg/0.5 Mg (3 Ml) Ud) 3 ml INH RQ4 PRN PRN Reason: Shortness of Breath Last Admin: 05/03/17 20:39 Dose: 3 ml Dextrose (Dextrose 50% Inj) 0 ml IV STAT PRN; Protocol PRN Reason: Hyglycemia Protocol Dextrose (Glutose 15) 0 gm PO ONCE PRN; Protocol PRN Reason: Hypoglycemia Protocol Dextrose (Dextrose 50% Inj) 0 ml IV STAT PRN; Protocol PRN Reason: Hyglycemia Protocol Dextrose (Glutose 15) 0 gm PO ONCE PRN; Protocol PRN Reason: Hypoglycemia Protocol Enoxaparin Sodium (Lovenox) 40 mg SC DAILY [facility] PRN Reason: Protocol Last Admin: 05/03/17 15:35 Dose: 40 mg Glucagon (Glucagen Diagnostic Kit) 0 mg IM STAT PRN; Protocol PRN Reason: Hypoglycemia Protocol Glucagon (Glucagen Diagnostic Kit) 0 mg IM STAT PRN; Protocol PRN Reason: Hypoglycemia Protocol Hydrochlorothiazide (Microzide) 12.5 mg PO DAILY [facility] Last Admin: 05/03/17 08:58 Dose: 12.5 mg Ceftriaxone Sodium 2 gm/ (Dextrose) 100 mls @ 100 mls/hr IVPB DAILY [facility] PRN Reason: Protocol Last Admin: 05/03/17 15:36 Dose: 100 mls/hr Insulin Human Regular (Humulin R) 0 units SC ACHS [facility] PRN Reason: Protocol Last Admin: 05/04/17 06:33 Dose: 1 unit Lactic Acid (Lac-Hydrin 12% Lotion (225 G)) 1 applic TOP TID [facility] Last Admin: 05/03/17 13:00 Dose: 1 lot Levofloxacin (Levaquin) 750 mg PO DAILY@2200 [facility] Last Admin: 05/03/17 21:28 Dose: 750 mg Methylprednisolone (Solu-Medrol) 80 mg IV Q12 [facility] Last Admin: 05/03/17 20:44 Dose: 80 mg Metoprolol Tartrate (Lopressor) 12.5 mg PO Q12 [facility] Last Admin: 05/03/17 20:46 Dose: 12.5 mg - Labs Labs: 05/03/17 04:20 05/03/17 04:20 PT 13.2 Seconds (9.8-13.1) H 05/02/17 12:30 INR 1.7 (0.9-1.2) H 05/02/17 12:30 APTT 30.7 Seconds (25.6-37.1) 05/02/17 12:30 - Constitutional Appears: Well, No Acute Distress, Other (breathing comfortably with O2 via NC) - Head Exam Head Exam: ATRAUMATIC, NORMAL INSPECTION, NORMOCEPHALIC - Eye Exam Eye Exam: EOMI, Normal appearance, PERRL Pupil Exam: NORMAL ACCOMODATION, PERRL - ENT Exam ENT Exam: Mucous Membranes Moist - Neck Exam Neck Exam: Full ROM. absent: Lymphadenopathy - Respiratory Exam Respiratory Exam: Wheezes, NORMAL BREATHING PATTERN. absent: Respiratory Distress Additional comments: audible wheezing, on exam- wheezing b/l on expiration - Cardiovascular Exam Cardiovascular Exam: REGULAR RHYTHM, +S1, +S2 - GI/Abdominal Exam GI & Abdominal Exam: Soft, Normal Bowel Sounds. absent: Distended, Tenderness - Extremities Exam Extremities Exam: Full ROM, Normal Capillary Refill. absent: Calf Tenderness, Pedal Edema - Back Exam Back Exam: NORMAL INSPECTION. absent: CVA tenderness (L), CVA tenderness (R) - Neurological Exam Neurological Exam: Alert, Awake, Oriented x3 - Psychiatric Exam Psychiatric exam: Normal Affect, Normal Mood - Skin Skin Exam: Dry, Normal Color, Warm Assessment and Plan - Assessment and Plan (Free Text) Assessment: Assessment/Plan: 66 YO homeless Male with PMH of COPD, HTN, Dolly, PE (s/p IVC filter), psoriasis who is admitted for COPD exacerbation. Breathing continue improving. 1) COPD exacerbation -continue O2 1L by NC -Duoneb Q4h lovely -continue Solumedrol 80 mg Q12h -continue Levofloxacin 750 mg PO daily -pt remains afebrile fever, no leukocytosis -CT chest 02/13 Paraeptal bullous emphysema. 3 mm righ lower lobe nodule for which 1 year f/u is recommended. No pulmonary embolism -f/u sputum gram, culture -pulmonary consult, will follow up 2) Bacteremia -pt remains afebrile, no leukocytosis -blood culture positive for gram neg rods -urine culture neg -continue rocephin -continue levoflaxacin -ID consult appreciated, continue rocephin recs pending culture and sensitivity -echo ordered, echodense body attached to rt coronary cusp (?vegetation)-DAVID may be considered -cardiology consult, will follow up 3) Chest Pain, resolved -pt does not endorse chest pain this AM -Troponin x 3 neg -ekg normal sinus no ST changes -Tylenol 650 mg PO PRN pain 4) Hx of PE and tachycardia -IVC filter in place -tachycardia at 102 bpm -Tachycardia likely 2/2 to albuterol treatment, will follow up 5) DM -Last HgbA1C was 6.7 % on 12/19/16 -Metformin 500 mg BID hold due to diarrhea yesterday -Accucheck ACHS -Insulin sliding scale low dose protocol 6) HTN, controlled -Metoprolol Tartrate 25 mg take 1/2 (12.5 mg) every 12 hours 7) Diarrhea, resolved -no episodes since admission to the hospital -recent hospitalization 1 month ago -will consider c diff toxin if diarrhea persists -hold metformin for now, will follow up 8) Psoriasis -ammonium lactate 12 % TOP TID 9) DVT prophylaxis -s/p IVC filter -continue Lovenox sbcu
--- NOTE | 2017-05-04 09:34 | CARD ---
APPROVED REPORT EXAM: Two-dimensional and M-mode echocardiogram with Doppler and color Doppler. Other Information Quality : GoodRhythm : NSR INDICATION Infection:Subacute bacterial endocarditis 2D DIMENSIONS IVSd1.19 (0.7-1.1cm)LVDd4.55 (3.9-5.9cm) LVOT Diameter2.21 (1.8-2.4cm)PWd0.96 (0.7-1.1cm) IVSs1.70 (0.8-1.2cm)LVDs2.57 (2.5-4.0cm) FS (%) 43.5 %PWs1.46 (0.8-1.2cm) M-Mode DIMENSIONS Left Atrium (MM)5.21 (2.5-4.0cm)IVSd1.35 (0.7-1.1cm) Aortic Root3.03 (2.2-3.7cm)LVDd5.21 (4.0-5.6cm) Aortic Cusp Exc.2.09 (1.5-2.0cm)PWd1.21 (0.7-1.1cm) IVSs1.68 cmFS (%) 45 % LVDs2.85 (2.0-3.8cm)PWs1.79 cm Aortic Valve AI P 1/2 [id number] Mitral Valve MV E Mnwgwpyr67.5cm/sMV DECEL [id number] A Aqbcjkdb05.3cm/s MV [id number]/A ratio1.1MVA (PHT)3.24cm2 TDI Lateral E' Peak V8.96cm/sMedial E' Peak V8.80cm/sE/Lateral E'11.1 E/Medial E'11.3 Pulmonary Valve PV Peak Aysrazit226.5cm/s LEFT VENTRICLE The left ventricle is normal size. There is normal left ventricular wall thickness. Left ventricle systolic function is normal. The Ejection Fraction is 65-70%. There is normal LV segmental wall motion. Transmitral Doppler flow pattern is Grade I-abnormal relaxation pattern. RIGHT VENTRICLE The right ventricle is normal size. There is normal right ventricular wall thickness. The right ventricular systolic function is normal. ATRIA The left atrium size is normal. The right atrium size is normal. AORTIC VALVE Tricuspid in morphilogy There is mild to moderate aortic regurgitation. There is no aortic valvular stenosis. Echodense body attached to Rt coronary cusp (?? Vegetation) MITRAL VALVE The mitral valve is normal in structure and function. No vegetation seen on MV There is no evidence of mitral valve prolapse. There is no mitral valve stenosis. There is no mitral valve regurgitation noted. TRICUSPID VALVE The tricuspid valve is normal in structure and function. There is no tricuspid valve regurgitation noted. There is no tricuspid valve prolapse or vegetation. PULMONIC VALVE The pulmonary valve is normal in structure and function. There is no pulmonic valvular regurgitation. GREAT VESSELS The aortic root is normal in size. The IVC is normal in size and collapses >50% with inspiration. PERICARDIAL EFFUSION The pericardium appears normal. <Conclusion> The left ventricle is normal size. There is normal left ventricular wall thickness. There is normal LV segmental wall motion. Left ventricle systolic function is normal. The Ejection Fraction is 65-70%. Transmitral Doppler flow pattern is Grade I-abnormal relaxation pattern. Echodense body attached to Rt coronary cusp (?? Vegetation) DAVID may be considered if additional clarification is needed. (Dr. Hernandez was alerted)
[2017-05-04] MEDS: cefTRIAXone 2 GM in Dextrose 5% In Water 100 ML IVPB SCH (09:54)
[2017-05-04] MEDS: Enoxaparin 40 mg Syringe SC SCH (09:56)
--- NOTE | 2017-05-04 15:54 | CP.PCM.CON ---
History of Present Illness - History of Present Illness History of Present Illness: PT DENIES CONTINUED F/C, HAS COUGH AND WHEEZING. ADMITTED FOR COPD EXAC. BC ON ABX NEGATIVE. 1ST SET PRIOR TO ABX SHOWED GRAM NEG BACTEREMIA. ECHO READ AV VEGETATION. CURRENTLY AFEBRILE AND HEMODYNAMICALLY STABLE. Review of Systems - Constitutional Constitutional: As Per HPI, Fatigue. absent: Anorexia, Chills, Daytime Sleepiness, Excessive Sweating, Fever, Frequent Falls, Headache, Increased Appetite, Lethargy, Malaise, Night Sweats, Snoring, Sleep Apnea, Weight Gain, Weight Loss, Weakness, Other - EENT Eyes: As Per HPI. absent: Blind Spots, Blurred Vision, Change in Vision, Decreased Night Vision, Diplopia, Discharge, Dry Eye, Exophthalmos, Floaters, Irritation, Itchy Eyes, Loss of Peripheral Vision, Pain, Photophobia, Requires Corrective Lenses, Sees Flashes, Spots in Vision, Tunnel Vision, Other Visual Disturbances, Loss of Vision, Other Ears: As Per HPI. absent: Decreased Hearing, Ear Discharge, Ear Pain, Tinnitus , Abnormal Hearing, Disequilibrium, Dizziness, Other Nose/Mouth/Throat: As Per HPI. absent: Epistaxis, Nasal Congestion, Nasal Discharge, Nasal Obstruction, Nasal Trauma, Nose Pain, Post Nasal Drip, Sinus Pain, Sinus Pressure, Bleeding Gums, Change in Voice, Dental Pain, Dry Mouth, Dysphagia, Halitosis, Hoarsness, Lip Swelling, Mouth Lesions, Mouth Pain, Odynophagia, Sore Throat, Throat Swelling, Tongue Swelling, Facial Pain, Neck Pain, Neck Mass, Other - Cardiovascular Cardiovascular: As Per HPI. absent: Acrocyanosis, Chest Pain, Chest Pain at Rest, Chest Pain with Activity, Claudication, Diaphoresis, Dyspnea, Dyspnea on Exertion, Edema, Irregular Heart Rhythm, Pain Radiating to Arm/Neck/Jaw, Leg Edema, Leg Ulcers, Lightheadedness, Orthopnea, Palpitations, Paroxysmal Nocturnal Dyspnea, Pedal Edema, Radiating Pain, Rapid Heart Rate, Slow Heart Rate, Syncope, Other - Respiratory Respiratory: As Per HPI, Cough, Dyspnea, Wheezing. absent: Hemoptysis, Dyspnea on Exertion, Snoring, Stridor, Pain on Inspiration, Chest Congestion, Excessive Mucous Production, Change in Mucous Color, Pain with Coughing, Other - Gastrointestinal Gastrointestinal: As Per HPI. absent: Abdominal Pain, Belching, Bloating, Change in Bowel Habits, Change in Stool Character, Coffee Ground Emesis, Constipation, Cramping, Diarrhea, Dyspepsia, Dysphagia, Early Satiety, Excessive Flatus, Fecal Incontinence, Heartburn, Hematemesis, Hematochezia, Loose Stools, Melena, Nausea, Odynophagia, Temesmus, Vomiting, Other - Genitourinary Genitourinary: As Per HPI. absent: Change in Urinary Stream, Difficulty Urinating, Dysuria, Flank Pain, Hematuria, Pyuria, Nocturia, Urinary Incontinence, Urinary Frequency, Urinary Hesitance, Urinary Urgency, Voiding Freq/Small Amts, Freq UTI, Hx Renal/Bladder Calculi, Hx /Renal Surgery, Bladder Distension, Other - Reproductive: Male Reproductive:Male: As Per HPI - Musculoskeletal Musculoskeletal: As Per HPI. absent: Abnormal Gait, Arthralgias, Atrophy, Back Pain, Deformity, Joint Swelling, Limited Range of Motion, Loss of Height, Muscle Cramps, Muscle Weakness, Myalgias, Neck Pain, Numbness, Radiating Pain into Limb, Stiffness, Tingling, Other - Integumentary Integumentary: As Per HPI. absent: Acne, Alopecia, Bleeding Lesions, Change in Hair, Change in Nails, Change in Pigmentation, Changing Lesions, Dry Skin, Erythema, Furuncle, Hirsutism, Lesions, New Lesions, Non-Healing Lesions, Photosensitivity, Pruritus, Rash, Skin Pain, Skin Ulcer, Sores, Striae, Swelling , Unusual Bruising, Wounds, Jaundice, Other - Neurological Neurological: As Per HPI. absent: Abnormal Gait, Abnormal Hearing, Abnormal Movements, Abnormal Speech, Behavioral Changes, Burning Sensations, Confusion, Convulsions, Disequilibrium, Dizziness, Numbness, Focal Weakness, Frequent Falls , Headaches, Lack of Coordination, Loss of Vision, Memory Loss, Paresthesias, Radicular Pain, Restless Legs, Sensory Deficit, Syncope, Tingling, Tremor, Vertigo, Weakness, Other Visual Disturbances, Other - Psychiatric Psychiatric: As Per HPI. absent: Abnormal Sleep Pattern, Anhedonia, Anxiety, Auditory Hallucinations, Behavioral Changes, Change in Appetite, Change in Libido, Confusion, Depression, Difficulty Concentrating, Hallucinations, Homicidal Ideation, Hopelessness, Irritability, Memory Loss, Mood Swings, Panic Attacks, Paranoia, Suicidal Ideation, Visual Hallucinations, Tactile Hallucinations, Other - Endocrine Endocrine: As Per HPI. absent: Change in Body Appearance, Change in Libido, Cold Intolorance, Deepening of Voice, Excessive Sweating, Fatigue, Flushing, Heat Intolorance, Increase in Ring/Shoe/Hat Size, Palpitations, Polydipsia, Polyphagia, Polyuria, Other - Hematologic/Lymphatic Hematologic: As Per HPI. absent: Easy Bleeding, Easy Bruising, Lymphadenopathy , Other Past Patient History - Infectious Disease Hx of Infectious Diseases: None - Tetanus Immunizations Tetanus Immunization: Unknown - Past Medical History & Family History Past Medical History?: Yes - Past Social History Smoking Status: Former Smoker - CARDIAC Hx Congestive Heart Failure: Yes Hx Hypertension: Yes - PULMONARY Hx Asthma: Yes Hx Chronic Obstructive Pulmonary Disease (COPD): Yes Hx Pneumonia: Yes Hx Pulmonary Embolism: Yes - NEUROLOGICAL Hx Neurological Disorder: No - HEENT Hx HEENT Problems: No - RENAL Hx Chronic Kidney Disease: No - ENDOCRINE/METABOLIC Hx Diabetes Mellitus Type 2: Yes - HEMATOLOGICAL/ONCOLOGICAL Hx Human Immunodeficiency Virus (HIV): No - INTEGUMENTARY Hx Dermatological Problems: Yes (GENERALIZED SKIN PSORIASIS) Hx Psoriasis: Yes - MUSCULOSKELETAL/RHEUMATOLOGICAL Hx Musculoskeletal Disorders: No Hx Falls: No - GASTROINTESTINAL Hx Gastrointestinal Disorders: Yes Other/Comment: GI bleeding on last admission while on anti-coagulation - GENITOURINARY/GYNECOLOGICAL Hx Genitourinary Disorders: No - PSYCHIATRIC Hx Psychophysiologic Disorder: No Hx Substance Use: No - SURGICAL HISTORY Hx Surgeries: No - ANESTHESIA Hx Anesthesia: Yes Hx Anesthesia Reactions: No Hx Malignant Hyperthermia: No Meds Allergies/Adverse Reactions: Allergies Allergy/AdvReac Type Severity Reaction Status Date / Time No Known Allergies Allergy Verified 12/18/16 18:49 - Medications Medications: Current Medications Acetaminophen (Tylenol 325mg Tab) 650 mg PO Q6 PRN PRN Reason: chest pain or fever >100.4 Albuterol/Ipratropium (Duoneb 3 Mg/0.5 Mg (3 Ml) Ud) 3 ml INH RQ4 PRN PRN Reason: Shortness of Breath Last Admin: 05/03/17 20:39 Dose: 3 ml Dextrose (Dextrose 50% Inj) 0 ml IV STAT PRN; Protocol PRN Reason: Hyglycemia Protocol Dextrose (Glutose 15) 0 gm PO ONCE PRN; Protocol PRN Reason: Hypoglycemia Protocol Dextrose (Dextrose 50% Inj) 0 ml IV STAT PRN; Protocol PRN Reason: Hyglycemia Protocol Dextrose (Glutose 15) 0 gm PO ONCE PRN; Protocol PRN Reason: Hypoglycemia Protocol Enoxaparin Sodium (Lovenox) 40 mg SC DAILY [facility] PRN Reason: Protocol Last Admin: 05/04/17 09:56 Dose: 40 mg Glucagon (Glucagen Diagnostic Kit) 0 mg IM STAT PRN; Protocol PRN Reason: Hypoglycemia Protocol Glucagon (Glucagen Diagnostic Kit) 0 mg IM STAT PRN; Protocol PRN Reason: Hypoglycemia Protocol Hydrochlorothiazide (Microzide) 12.5 mg PO DAILY [facility] Last Admin: 05/04/17 09:57 Dose: 12.5 mg Ceftriaxone Sodium 2 gm/ (Dextrose) 100 mls @ 100 mls/hr IVPB DAILY [facility] PRN Reason: Protocol Last Admin: 05/04/17 09:54 Dose: 100 mls/hr Insulin Human Regular (Humulin R) 0 units SC ACHS [facility] PRN Reason: Protocol Last Admin: 05/04/17 13:34 Dose: 1 unit Lactic Acid (Lac-Hydrin 12% Lotion (225 G)) 1 applic TOP TID [facility] Last Admin: 05/04/17 13:31 Dose: 1 applic Levofloxacin (Levaquin) 750 mg PO DAILY@2200 [facility] Last Admin: 05/03/17 21:28 Dose: 750 mg Methylprednisolone (Solu-Medrol) 80 mg IV Q12 [facility] Last Admin: 05/04/17 10:00 Dose: 80 mg Metoprolol Tartrate (Lopressor) 12.5 mg PO Q12 [facility] Last Admin: 05/04/17 09:56 Dose: 12.5 mg Physical Exam - Constitutional Appears: Unkempt - Head Exam Head Exam: ATRAUMATIC, NORMAL INSPECTION, NORMOCEPHALIC - Eye Exam Eye Exam: EOMI, Normal appearance, PERRL Pupil Exam: NORMAL ACCOMODATION, PERRL - ENT Exam ENT Exam: Mucous Membranes Moist, Normal Exam - Neck Exam Neck exam: Positive for: Normal Inspection - Respiratory Exam Respiratory Exam: Rhonchi, Wheezes - Cardiovascular Exam Cardiovascular Exam: REGULAR RHYTHM, +S1, +S2, Systolic Murmur - GI/Abdominal Exam GI & Abdominal Exam: Normal Bowel Sounds, Soft. absent: Tenderness - Rectal Exam Rectal Exam: Deferred - Extremities Exam Extremities exam: Positive for: normal inspection - Back Exam Back exam: NORMAL INSPECTION - Neurological Exam Neurological exam: Alert, CN II-XII Intact, Normal Gait, Oriented x3, Reflexes Normal - Psychiatric Exam Psychiatric exam: Normal Affect, Normal Mood - Skin Skin Exam: Dry, Intact, Normal Color, Warm Results - Vital Signs Recent Vital Signs: Last Vital Signs Temp 97.9 F 05/04/17 12:47 Pulse 68 05/04/17 12:47 Resp 18 05/04/17 12:47 BP 142/64 05/04/17 12:47 Pulse Ox 96 05/04/17 12:47 - Labs Result Diagrams: 05/09/17 05:30 05/08/17 05:30 Labs: Laboratory Results - last 24 hr 05/03/17 05/03/17 05/04/17 17:14 21:27 06:26 POC Glucose (mg/dL) 214 H 178 H 158 H Assessment & Plan (1) Acute exacerbation of chronic obstructive pulmonary disease Status: Acute (2) Dyspnea Status: Acute (3) Elevated BUN Status: Acute (4) SIRS (systemic inflammatory response syndrome) Status: Acute (5) Hypertension Status: Chronic (6) Vitamin D deficiency Status: Chronic - Assessment and Plan (Free Text) Plan: NOT ENDOCARDITIS, RATHER CALCIFIED NCC LEAF[facility]. NO NEED FOR DAVID. WILL SIGN OFF, PLEASE RECALL IF NEEDED. THANK YOU.
--- NOTE | 2017-05-04 17:22 | CP.PCM.PN ---
Subjective - Date & Time of Evaluation Date of Evaluation: 05/04/17 Time of Evaluation: 17:18 - Subjective Subjective: I D NOTE PATIENT EXAMINED .CHART REVIEWED FULL CONSULT TO FOLLOW GRAM NEGATIVE SEPSIS AWAITING ID AND SENSITIVITY HAVE ADDED ZOSYN TO TREATMENT Objective - Vital Signs/Intake and Output Vital Signs (last 24 hours): Temp Pulse Resp BP Pulse Ox 97.7 F 64 14 164/81 H 98 05/04/17 16:59 05/04/17 16:59 05/04/17 16:59 05/04/17 16:59 05/04/17 16:59 - Medications Medications: Current Medications Acetaminophen (Tylenol 325mg Tab) 650 mg PO Q6 PRN PRN Reason: chest pain or fever >100.4 Albuterol/Ipratropium (Duoneb 3 Mg/0.5 Mg (3 Ml) Ud) 3 ml INH RQ4 PRN PRN Reason: Shortness of Breath Last Admin: 05/03/17 20:39 Dose: 3 ml Dextrose (Dextrose 50% Inj) 0 ml IV STAT PRN; Protocol PRN Reason: Hyglycemia Protocol Dextrose (Glutose 15) 0 gm PO ONCE PRN; Protocol PRN Reason: Hypoglycemia Protocol Dextrose (Dextrose 50% Inj) 0 ml IV STAT PRN; Protocol PRN Reason: Hyglycemia Protocol Dextrose (Glutose 15) 0 gm PO ONCE PRN; Protocol PRN Reason: Hypoglycemia Protocol Enoxaparin Sodium (Lovenox) 40 mg SC DAILY [facility] PRN Reason: Protocol Last Admin: 05/04/17 09:56 Dose: 40 mg Glucagon (Glucagen Diagnostic Kit) 0 mg IM STAT PRN; Protocol PRN Reason: Hypoglycemia Protocol Glucagon (Glucagen Diagnostic Kit) 0 mg IM STAT PRN; Protocol PRN Reason: Hypoglycemia Protocol Hydrochlorothiazide (Microzide) 12.5 mg PO DAILY [facility] Last Admin: 05/04/17 09:57 Dose: 12.5 mg Ceftriaxone Sodium 2 gm/ (Dextrose) 100 mls @ 100 mls/hr IVPB DAILY [facility] PRN Reason: Protocol Last Admin: 05/04/17 09:54 Dose: 100 mls/hr Insulin Human Regular (Humulin R) 0 units SC ACHS [facility] PRN Reason: Protocol Last Admin: 05/04/17 13:34 Dose: 1 unit Lactic Acid (Lac-Hydrin 12% Lotion (225 G)) 1 applic TOP TID [facility] Last Admin: 05/04/17 13:31 Dose: 1 applic Methylprednisolone (Solu-Medrol) 80 mg IV Q12 [facility] Last Admin: 05/04/17 10:00 Dose: 80 mg Metoprolol Tartrate (Lopressor) 12.5 mg PO Q12 [facility] Last Admin: 05/04/17 09:56 Dose: 12.5 mg - Labs Labs: 05/03/17 04:20 05/03/17 04:20 PT 13.2 Seconds (9.8-13.1) H 05/02/17 12:30 INR 1.7 (0.9-1.2) H 05/02/17 12:30 APTT 30.7 Seconds (25.6-37.1) 05/02/17 12:30
--- NOTE | 2017-05-04 21:09 | CP.PCM.CON ---
History of Present Illness - History of Present Illness History of Present Illness: 66 year old homeless male, previous 3 to 4 pack smoker for many years, now occasionally smokes; former heavy drinker, occasional beers on weekends, presents ith an increase in DOLAN, phegm (yellowish) wheezing, fever, and weakness. social: as per CC. NKDA, Fam Hx: non cont. Medical problems: HTN, COPD (uses albuterol.) VS: See below Head: neg adeno, neg jve. Heart: RRR ns1s2 neg M Lungs: somewhat distant bs. no C,C,E. Neuro: GNF. Labs: see below, X-ray: COPD. a/p As above: Acute resp insuff.. COPD Ex. Acute Tracheobronchitis. Plan: Patient was saturating 97% on Room Air. Remains afebrile. Cont IV abx and steroids. Nebulizations q 4 hours prn. PFT's as outpatient. f/U with [facility] [place] [facility]. signing out of case. Please call if condition changes. Past Patient History - Infectious Disease Hx of Infectious Diseases: None - Tetanus Immunizations Tetanus Immunization: Unknown - Past Medical History & Family History Past Medical History?: Yes - Past Social History Smoking Status: Former Smoker - CARDIAC Hx Congestive Heart Failure: Yes Hx Hypertension: Yes - PULMONARY Hx Asthma: Yes Hx Chronic Obstructive Pulmonary Disease (COPD): Yes Hx Pneumonia: Yes Hx Pulmonary Embolism: Yes - NEUROLOGICAL Hx Neurological Disorder: No - HEENT Hx HEENT Problems: No - RENAL Hx Chronic Kidney Disease: No - ENDOCRINE/METABOLIC Hx Diabetes Mellitus Type 2: Yes - HEMATOLOGICAL/ONCOLOGICAL Hx Human Immunodeficiency Virus (HIV): No - INTEGUMENTARY Hx Dermatological Problems: Yes (GENERALIZED SKIN PSORIASIS) Hx Psoriasis: Yes - MUSCULOSKELETAL/RHEUMATOLOGICAL Hx Musculoskeletal Disorders: No Hx Falls: No - GASTROINTESTINAL Hx Gastrointestinal Disorders: Yes Other/Comment: GI bleeding on last admission while on anti-coagulation - GENITOURINARY/GYNECOLOGICAL Hx Genitourinary Disorders: No - PSYCHIATRIC Hx Psychophysiologic Disorder: No Hx Substance Use: No - SURGICAL HISTORY Hx Surgeries: No - ANESTHESIA Hx Anesthesia: Yes Hx Anesthesia Reactions: No Hx Malignant Hyperthermia: No Meds Allergies/Adverse Reactions: Allergies Allergy/AdvReac Type Severity Reaction Status Date / Time No Known Allergies Allergy Verified 12/18/16 18:49 - Medications Medications: Current Medications Acetaminophen (Tylenol 325mg Tab) 650 mg PO Q6 PRN PRN Reason: chest pain or fever >100.4 Albuterol/Ipratropium (Duoneb 3 Mg/0.5 Mg (3 Ml) Ud) 3 ml INH RQ4 PRN PRN Reason: Shortness of Breath Last Admin: 05/03/17 20:39 Dose: 3 ml Dextrose (Dextrose 50% Inj) 0 ml IV STAT PRN; Protocol PRN Reason: Hyglycemia Protocol Dextrose (Glutose 15) 0 gm PO ONCE PRN; Protocol PRN Reason: Hypoglycemia Protocol Dextrose (Dextrose 50% Inj) 0 ml IV STAT PRN; Protocol PRN Reason: Hyglycemia Protocol Dextrose (Glutose 15) 0 gm PO ONCE PRN; Protocol PRN Reason: Hypoglycemia Protocol Enoxaparin Sodium (Lovenox) 40 mg SC DAILY [facility] PRN Reason: Protocol Last Admin: 05/04/17 09:56 Dose: 40 mg Glucagon (Glucagen Diagnostic Kit) 0 mg IM STAT PRN; Protocol PRN Reason: Hypoglycemia Protocol Glucagon (Glucagen Diagnostic Kit) 0 mg IM STAT PRN; Protocol PRN Reason: Hypoglycemia Protocol Hydrochlorothiazide (Microzide) 12.5 mg PO DAILY [facility] Last Admin: 05/04/17 09:57 Dose: 12.5 mg Ceftriaxone Sodium 2 gm/ (Dextrose) 100 mls @ 100 mls/hr IVPB DAILY JEFFREY PRN Reason: Protocol Last Admin: 05/04/17 09:54 Dose: 100 mls/hr Piperacillin Sod/Tazobactam (Sod 3.375 gm/ Sodium Chloride) 100 mls @ 100 mls/ hr IVPB Q6 [facility] PRN Reason: Protocol Insulin Human Regular (Humulin R) 0 units SC ACHS [facility] PRN Reason: Protocol Last Admin: 05/04/17 17:53 Dose: Not Given Lactic Acid (Lac-Hydrin 12% Lotion (225 G)) 1 applic TOP TID [facility] Last Admin: 05/04/17 17:53 Dose: 1 applic Methylprednisolone (Solu-Medrol) 80 mg IV Q12 [facility] Stop: 05/04/17 23:59 Last Admin: 05/04/17 10:00 Dose: 80 mg Methylprednisolone (Solu-Medrol) 60 mg IVP Q8 [facility] Metoprolol Tartrate (Lopressor) 12.5 mg PO Q12 [facility] Last Admin: 05/04/17 09:56 Dose: 12.5 mg Results - Vital Signs Recent Vital Signs: Last Vital Signs Temp 98.1 F 05/04/17 20:28 Pulse 69 05/04/17 20:28 Resp 14 05/04/17 20:28 BP 145/72 05/04/17 20:28 Pulse Ox 98 05/04/17 20:28 - Labs Result Diagrams: 05/03/17 04:20 05/03/17 04:20 Labs: Laboratory Results - last 24 hr 05/03/17 05/03/17 05/04/17 17:14 21:27 06:26 POC Glucose (mg/dL) 214 H 178 H 158 H 05/04/17 05/04/17 12:17 17:06 POC Glucose (mg/dL) 162 H 143 H
[2017-05-04] MEDS: Piperacillin/Tazobact 3.375 GM in Sodium Chloride 0.9% 100 ML IVPB SCH (21:16)
[2017-05-05] MEDS: Piperacillin/Tazobact 3.375 GM in Sodium Chloride 0.9% 100 ML IVPB SCH ×4 (05:12→23:17)
[2017-05-05] MEDS ORDERED: methylPREDNISolone 60 MG in Sodium Chloride 0.9% 50 ML IVPB SCH (09:00)
[2017-05-05] MEDS: Insulin Regular 100 units/ml SC SCH ×3 (09:26→16:43)
[2017-05-05] MEDS: MethylPREDNISolone 40 mg Vial IVP SCH ×2 (09:28→16:44)
[2017-05-05] MEDS: Enoxaparin 40 mg Syringe SC SCH (09:30)
[2017-05-05] MEDS: cefTRIAXone 2 GM in Dextrose 5% In Water 100 ML IVPB SCH (09:33)
--- NOTE | 2017-05-05 10:03 | CP.PCM.PN ---
Subjective - Date & Time of Evaluation Date of Evaluation: 05/05/17 Time of Evaluation: 10:02 - Subjective Subjective: HD 3 66 YO male admitted for COPD exacerbation S: No acute overnight events. Examined by bedside this AM. Pt endorses wheezing and productive cough. He states that he is breathing a little better. Denies chest pain, dyspnea, palpatations, n/v/d/c and remains afebrile. Objective - Vital Signs/Intake and Output Vital Signs (last 24 hours): Temp Pulse Resp BP Pulse Ox 98.1 F 74 18 152/76 H 98 05/05/17 08:00 05/05/17 09:28 05/05/17 08:00 05/05/17 09:28 05/05/17 08:00 Intake and Output: 05/05/17 05/05/17 06:59 18:59 Intake Total 100 Balance 100 - Medications Medications: Current Medications Acetaminophen (Tylenol 325mg Tab) 650 mg PO Q6 PRN PRN Reason: chest pain or fever >100.4 Last Admin: 05/04/17 21:21 Dose: 650 mg Albuterol/Ipratropium (Duoneb 3 Mg/0.5 Mg (3 Ml) Ud) 3 ml INH RQ4 PRN PRN Reason: Shortness of Breath Last Admin: 05/03/17 20:39 Dose: 3 ml Dextrose (Dextrose 50% Inj) 0 ml IV STAT PRN; Protocol PRN Reason: Hyglycemia Protocol Dextrose (Glutose 15) 0 gm PO ONCE PRN; Protocol PRN Reason: Hypoglycemia Protocol Dextrose (Dextrose 50% Inj) 0 ml IV STAT PRN; Protocol PRN Reason: Hyglycemia Protocol Dextrose (Glutose 15) 0 gm PO ONCE PRN; Protocol PRN Reason: Hypoglycemia Protocol Enoxaparin Sodium (Lovenox) 40 mg SC DAILY [facility] PRN Reason: Protocol Last Admin: 05/05/17 09:30 Dose: 40 mg Glucagon (Glucagen Diagnostic Kit) 0 mg IM STAT PRN; Protocol PRN Reason: Hypoglycemia Protocol Glucagon (Glucagen Diagnostic Kit) 0 mg IM STAT PRN; Protocol PRN Reason: Hypoglycemia Protocol Hydrochlorothiazide (Microzide) 12.5 mg PO DAILY [facility] Last Admin: 05/05/17 09:30 Dose: 12.5 mg Ceftriaxone Sodium 2 gm/ (Dextrose) 100 mls @ 100 mls/hr IVPB DAILY [facility] PRN Reason: Protocol Last Admin: 05/05/17 09:33 Dose: 100 mls/hr Piperacillin Sod/Tazobactam (Sod 3.375 gm/ Sodium Chloride) 100 mls @ 100 mls/ hr IVPB Q6 [facility] PRN Reason: Protocol Last Admin: 05/05/17 09:33 Dose: 100 mls/hr Insulin Human Regular (Humulin R) 0 units SC ACHS [facility] PRN Reason: Protocol Last Admin: 05/05/17 09:26 Dose: 1 unit Lactic Acid (Lac-Hydrin 12% Lotion (225 G)) 1 applic TOP TID [facility] Last Admin: 05/05/17 09:25 Dose: 1 applic Methylprednisolone (Solu-Medrol) 60 mg IVP Q8 [facility] Last Admin: 05/05/17 09:28 Dose: 60 mg Metoprolol Tartrate (Lopressor) 12.5 mg PO Q12 [facility] Last Admin: 05/05/17 09:28 Dose: 12.5 mg - Labs Labs: 05/03/17 04:20 05/03/17 04:20 PT 13.2 Seconds (9.8-13.1) H 05/02/17 12:30 INR 1.7 (0.9-1.2) H 05/02/17 12:30 APTT 30.7 Seconds (25.6-37.1) 05/02/17 12:30 - Constitutional Appears: Well, No Acute Distress, Other (Pt breathing comfortably in RA) - Head Exam Head Exam: ATRAUMATIC, NORMAL INSPECTION, NORMOCEPHALIC - Eye Exam Eye Exam: EOMI, Normal appearance, PERRL - ENT Exam ENT Exam: Mucous Membranes Moist - Neck Exam Neck Exam: Full ROM. absent: Lymphadenopathy - Respiratory Exam Respiratory Exam: Wheezes (audiable expiratory wheezing b/l), NORMAL BREATHING PATTERN - Cardiovascular Exam Cardiovascular Exam: REGULAR RHYTHM, +S1, +S2 - GI/Abdominal Exam GI & Abdominal Exam: Soft, Tenderness, Normal Bowel Sounds. absent: Distended - Extremities Exam Extremities Exam: Full ROM. absent: Calf Tenderness, Pedal Edema Additional comments: extensive psoriasis throughout the upper and lower extremities - Back Exam Back Exam: NORMAL INSPECTION. absent: CVA tenderness (L), CVA tenderness (R) - Neurological Exam Neurological Exam: Alert, Awake, CN II-XII Intact, Oriented x3 - Psychiatric Exam Psychiatric exam: Normal Affect, Normal Mood - Skin Skin Exam: Dry, Intact, Warm Assessment and Plan - Assessment and Plan (Free Text) Assessment: Assessment/plan: 66 YO homeless Male with PMH of COPD, HTN, Dolly, PE (s/p IVC filter), psoriasis who is admitted for COPD exacerbation. Breathing continues improving. 1) COPD exacerbation -continue O2 NC -Duoneb Q4h lovely -continue Solumedrol 60 mg Q8h -continue Levofloxacin 750 mg PO daily -pt remains afebrile fever, no leukocytosis -CT chest 02/13 Paraeptal bullous emphysema. 3 mm righ lower lobe nodule for which 1 year f/u is recommended. No pulmonary embolism -f/u sputum gram, culture -pulmonary consult appreciated, pt is optimized and continue current management. Recs include out pt PFTs. 2) Pseudomonas Bacteremia -pt remains afebrile, no leukocytosis -blood culture positive for gram neg rods -urine culture neg -d/c rocephin -continue zosyn -echo ordered, echodense body attached to rt coronary cusp (?vegetation)-DAVID may be considered -cardiology consult appreciated, not vegetations no need for DAVID. -ID consult appreciated, start cipro (D1/10) and zosyn. Will need 10 days of Cipro 3) Chest Pain, resolved -pt does not endorse chest pain this AM -Troponin x 3 neg -ekg normal sinus no ST changes -Tylenol 650 mg PO PRN pain 4) Hx of PE and tachycardia -tachycardia resolved at this time -IVC filter in place -Tachycardia likely 2/2 to albuterol treatment -will continue to monitor 5) DM -Last HgbA1C was 6.7 % on 12/19/16 -Metformin 500 mg BID hold due to diarrhea yesterday -Accucheck ACHS -Insulin sliding scale low dose protocol 6) HTN, controlled -Metoprolol Tartrate 25 mg take 1/2 (12.5 mg) every 12 hours 7) Diarrhea, resolved -no episodes since admission to the hospital -recent hospitalization 1 month ago -will consider c diff toxin if diarrhea persists -hold metformin for now, will follow up 8) Psoriasis -ammonium lactate 12 % TOP TID 9) DVT prophylaxis -s/p IVC filter -continue Lovenox sbcu
[2017-05-05] MEDS ORDERED: Petrolatum UD PAK TOP PRN (18:30)
[2017-05-05] MEDS: Albuterol-Ipratrop 3 mg / 0.5 (3 ml) UD INH PRN (19:33)
[2017-05-05] MEDS: Ciprofloxacin 400mg/200ml D5W 400 MG/200 ML BAG IVPB SCH (22:04)
[2017-05-06] MEDS: Insulin Regular 100 units/ml SC SCH ×5 (00:24→22:53)
[2017-05-06] MEDS: MethylPREDNISolone 40 mg Vial IVP SCH ×3 (02:31→16:41)
[2017-05-06] MEDS: Piperacillin/Tazobact 3.375 GM in Sodium Chloride 0.9% 100 ML IVPB SCH ×4 (05:03→21:06)
[2017-05-06] MEDS: Ciprofloxacin 400mg/200ml D5W 400 MG/200 ML BAG IVPB SCH ×2 (09:55→21:06)
[2017-05-06] MEDS: Enoxaparin 40 mg Syringe SC SCH (09:58)
--- NOTE | 2017-05-06 11:16 | CP.PCM.PN ---
Subjective - Date & Time of Evaluation Date of Evaluation: 05/06/17 Time of Evaluation: 11:15 - Subjective Subjective: HD 4 66 YO Male admitted for COPD exacerbation and pseudomonas bacteremia S: No acute overnight events. Pt is doing well this AM, seen walking around without NC. Endorses chills last night. Denies chest pain, dyspnea, palpitations , n/v/d/c and remains afebrile. Objective - Vital Signs/Intake and Output Vital Signs (last 24 hours): Temp Pulse Resp BP Pulse Ox 97.7 F 59 L 18 148/71 100 05/06/17 08:00 05/06/17 09:57 05/06/17 08:00 05/06/17 09:57 05/06/17 08:00 - Medications Medications: Current Medications Acetaminophen (Tylenol 325mg Tab) 650 mg PO Q6 PRN PRN Reason: chest pain or fever >100.4 Last Admin: 05/04/17 21:21 Dose: 650 mg Albuterol/Ipratropium (Duoneb 3 Mg/0.5 Mg (3 Ml) Ud) 3 ml INH RQ4 PRN PRN Reason: Shortness of Breath Last Admin: 05/05/17 19:33 Dose: 3 ml Dextrose (Dextrose 50% Inj) 0 ml IV STAT PRN; Protocol PRN Reason: Hyglycemia Protocol Dextrose (Glutose 15) 0 gm PO ONCE PRN; Protocol PRN Reason: Hypoglycemia Protocol Dextrose (Dextrose 50% Inj) 0 ml IV STAT PRN; Protocol PRN Reason: Hyglycemia Protocol Dextrose (Glutose 15) 0 gm PO ONCE PRN; Protocol PRN Reason: Hypoglycemia Protocol Emollient Ointment (Vaseline Oint) 1 pkt TOP BID PRN PRN Reason: Dry skin Enoxaparin Sodium (Lovenox) 40 mg SC DAILY [facility] PRN Reason: Protocol Last Admin: 05/06/17 09:58 Dose: 40 mg Glucagon (Glucagen Diagnostic Kit) 0 mg IM STAT PRN; Protocol PRN Reason: Hypoglycemia Protocol Glucagon (Glucagen Diagnostic Kit) 0 mg IM STAT PRN; Protocol PRN Reason: Hypoglycemia Protocol Hydrochlorothiazide (Microzide) 12.5 mg PO DAILY [facility] Last Admin: 05/06/17 10:02 Dose: 12.5 mg Piperacillin Sod/Tazobactam (Sod 3.375 gm/ Sodium Chloride) 100 mls @ 100 mls/ hr IVPB Q6 [facility] PRN Reason: Protocol Last Admin: 05/06/17 10:04 Dose: 100 mls/hr Ciprofloxacin (Cipro 400mg/200ml Dsw) 400 mg in 200 mls @ 200 mls/hr IVPB Q12 [facility] PRN Reason: Protocol Last Admin: 05/06/17 09:55 Dose: 200 mls/hr Insulin Human Regular (Humulin R) 0 units SC ACHS [facility] PRN Reason: Protocol Last Admin: 05/06/17 10:05 Dose: 1 unit Lactic Acid (Lac-Hydrin 12% Lotion (225 G)) 1 applic TOP TID [facility] Last Admin: 05/06/17 09:56 Dose: 1 applic Methylprednisolone (Solu-Medrol) 60 mg IVP Q8 [facility] Last Admin: 05/06/17 10:03 Dose: 60 mg Metoprolol Tartrate (Lopressor) 12.5 mg PO Q12 [facility] Last Admin: 05/06/17 09:57 Dose: 12.5 mg Triamcinolone Acetonide (Kenalog 0.1% Oint) 0 appl TOP BID [facility] Last Admin: 05/06/17 09:57 Dose: 1 appl - Labs Labs: 05/03/17 04:20 05/03/17 04:20 PT 13.2 Seconds (9.8-13.1) H 05/02/17 12:30 INR 1.7 (0.9-1.2) H 05/02/17 12:30 APTT 30.7 Seconds (25.6-37.1) 05/02/17 12:30 - Constitutional Appears: Well, No Acute Distress - Head Exam Head Exam: ATRAUMATIC, NORMAL INSPECTION, NORMOCEPHALIC - Eye Exam Eye Exam: EOMI, Normal appearance, PERRL - ENT Exam ENT Exam: Mucous Membranes Moist - Neck Exam Neck Exam: Full ROM, Normal Inspection - Respiratory Exam Respiratory Exam: Clear to Ausculation Bilateral, Wheezes (expiratory wheezing b /l), NORMAL BREATHING PATTERN. absent: Accessory Muscle Use, Chest Wall Tenderness - Cardiovascular Exam Cardiovascular Exam: REGULAR RHYTHM, +S1, +S2 - GI/Abdominal Exam GI & Abdominal Exam: Soft, Normal Bowel Sounds. absent: Guarding, Tenderness - Back Exam Back Exam: NORMAL INSPECTION. absent: CVA tenderness (L), CVA tenderness (R) - Neurological Exam Neurological Exam: Alert, Awake, CN II-XII Intact, Normal Gait, Oriented x3 - Psychiatric Exam Psychiatric exam: Normal Affect, Normal Mood - Skin Skin Exam: Dry, Intact, Normal Color, Warm Assessment and Plan - Assessment and Plan (Free Text) Assessment: Assessment/plan: 66 YO homeless Male with PMH of COPD, HTN, Dolly, PE (s/p IVC filter), psoriasis who is admitted for COPD exacerbation. Breathing continues improving, remains afebrile. 1) COPD exacerbation -continue NC prn, breathing in RA -Duoneb Q4h lovely -continue Solumedrol 60 mg Q8h -continue Levofloxacin 750 mg PO daily -pt remains afebrile fever, no leukocytosis -CT chest 02/13 Paraeptal bullous emphysema. 3 mm righ lower lobe nodule for which 1 year f/u is recommended. No pulmonary embolism -sputum culture appreciated, e. coli -pulmonary consult appreciated, pt is optimized and continue current management. Recs include out pt PFTs. 2) Pseudomonas Bacteremia -pt remains afebrile, no leukocytosis -blood culture positive for gram neg rods -urine culture neg -d/c rocephin -echo ordered, echodense body attached to rt coronary cusp (?vegetation)-DAVID may be considered -cardiology consult appreciated, not vegetations no need for DAVID. -ID consult appreciated -continue cipro (D2/10) and zosyn (D2/10). Will need 10 days of Cipro -PICC line ordered 3) Chest Pain, resolved -pt does not endorse chest pain this AM -Troponin x 3 neg -ekg normal sinus no ST changes -Tylenol 650 mg PO PRN pain 4) Hx of PE and tachycardia -tachycardia resolved at this time -IVC filter in place -Tachycardia likely 2/2 to albuterol treatment -will continue to monitor 5) DM -Last HgbA1C was 6.7 % on 12/19/16 -Metformin 500 mg BID hold due to diarrhea yesterday -Accucheck ACHS -Insulin sliding scale low dose protocol 6) HTN, controlled -Metoprolol Tartrate 25 mg take 1/2 (12.5 mg) every 12 hours 7) Diarrhea, resolved -no episodes since admission to the hospital -recent hospitalization 1 month ago -will consider c diff toxin if diarrhea persists -hold metformin for now, will follow up 8) Psoriasis -triamcinolone 0.1% -ammonium lactate 12 % TOP TID 9) DVT prophylaxis -s/p IVC filter -continue Lovenox sbcu
[2017-05-06] MEDS ORDERED: Lidocaine 1% Inj (20ml) ONE (14:10)
--- NOTE | 2017-05-06 14:43 | PCM.SURG1 ---
Surgeon's Initial Post Op Note - Surgeon's Notes Surgeon: Frankie Madrid MD Supervisor Crack Off: NONE Type of Anesthesia: Local Pre-Operative Diagnosis: Infection requiring snf IV abx Operative Findings: Patent right brachial vein Post-Operative Diagnosis: Infection requiring exterminator IV abx Operation Performed: Single lumen picc placement right brachial vein, 37 cm. Tip is in the SVC. Specimen/Specimens Removed: NOne Estimated Blood Loss: EBL {In ML}: 2 Blood Products Given: N/A Drains Used: No Drains Post-Op Condition: Fair Date of Surgery/Procedure: 05/06/17 Time of Surgery/Procedure: 14:35
--- NOTE | 2017-05-06 16:56 | VASCULAR ---
PROCEDURE: Date of procedure: 05/06/2017 Procedure: 1. Placement of a right arm PICC with ultrasound and fluoroscopic guidance, CPT 93565 2. PICC tip confirmation with spot radiograph and is in the superior vena cava Medications: 1 percent lidocaine Total Fluoro time: 4.7 seconds Radiation: 0.45 MGy EBL: 2 cc HISTORY: Infection requiring long-term IV antibiotics TECHNIQUE: Following informed consent and procedure time-out, the patient was placed supine on the interventional table and the right arm prepped and draped in the usual sterile fashion. Ultrasound showed a patent and compressible right basilic vein. After the skin was anesthetized with lidocaine, the basilic vein was accessed with micro micropuncture technique using ultrasound guidance. A guidewire was then advanced under fluoroscopic guidance into the superior vena cava. An image documenting ultrasound guidance for vascular access was permanently saved. The length of the single-lumen 4 [place] PICC was trimmed to 37 centimeters and advanced through a peel-away sheath. The PICC was position with tip of PICC confirm a spot radiograph the superior vena cava. The PICC was secured to the patient's skin. The PICC was flushed. A biopatch and sterile dressing was applied. IMPRESSION: Placement of a single-lumen 4 [place] PICC trimmed to 37 centimeters via right basilic vein. The tip of the PICC is confirmed with spot radiograph and is in the superior vena cava.
[2017-05-07] MEDS: Piperacillin/Tazobact 3.375 GM in Sodium Chloride 0.9% 100 ML IVPB SCH ×4 (04:21→21:12)
[2017-05-07] MEDS: Insulin Regular 100 units/ml SC SCH ×5 (06:36→22:00)
[2017-05-07] MEDS: Albuterol-Ipratrop 3 mg / 0.5 (3 ml) UD INH PRN (08:16)
[2017-05-07] MEDS ORDERED: methylPREDNISolone 30 MG in Sodium Chloride 0.9% 50 ML IVPB SCH (09:00)
--- NOTE | 2017-05-07 09:32 | CP.PCM.PN ---
Subjective - Date & Time of Evaluation Date of Evaluation: 05/07/17 Time of Evaluation: 09:31 - Subjective Subjective: HD 5 66 YO Male admitted for COPD exacerbation and pseudomonas bacteremia S: Pt was transferred to med/surg floor. No acute overnight events. Pt is doing well, still wheezing on expiration. Denies chest pain, dyspnea, palpitations, n/ v/d/c and remains afebrile. of note, during rounding, pt endorses some chest discomfort. 12:44- on re-evaluation pt states that he no longer has chest discomfort, no cardiac symptoms. Objective - Vital Signs/Intake and Output Vital Signs (last 24 hours): Temp Pulse Resp BP Pulse Ox 97.7 F 62 20 143/65 100 05/07/17 08:21 05/07/17 08:21 05/07/17 08:21 05/07/17 08:21 05/07/17 08:21 Intake and Output: 05/07/17 05/07/17 06:59 18:59 Intake Total 200 Output Total 200 Balance 0 - Medications Medications: Current Medications Acetaminophen (Tylenol 325mg Tab) 650 mg PO Q6 PRN PRN Reason: chest pain or fever >100.4 Last Admin: 05/04/17 21:21 Dose: 650 mg Albuterol/Ipratropium (Duoneb 3 Mg/0.5 Mg (3 Ml) Ud) 3 ml INH RQ4 PRN PRN Reason: Shortness of Breath Last Admin: 05/07/17 08:16 Dose: 3 ml Dextrose (Dextrose 50% Inj) 0 ml IV STAT PRN; Protocol PRN Reason: Hyglycemia Protocol Dextrose (Glutose 15) 0 gm PO ONCE PRN; Protocol PRN Reason: Hypoglycemia Protocol Dextrose (Dextrose 50% Inj) 0 ml IV STAT PRN; Protocol PRN Reason: Hyglycemia Protocol Dextrose (Glutose 15) 0 gm PO ONCE PRN; Protocol PRN Reason: Hypoglycemia Protocol Emollient Ointment (Vaseline Oint) 1 pkt TOP BID PRN PRN Reason: Dry skin Enoxaparin Sodium (Lovenox) 40 mg SC DAILY [facility] PRN Reason: Protocol Last Admin: 05/06/17 09:58 Dose: 40 mg Glucagon (Glucagen Diagnostic Kit) 0 mg IM STAT PRN; Protocol PRN Reason: Hypoglycemia Protocol Glucagon (Glucagen Diagnostic Kit) 0 mg IM STAT PRN; Protocol PRN Reason: Hypoglycemia Protocol Hydrochlorothiazide (Microzide) 12.5 mg PO DAILY [facility] Last Admin: 05/06/17 10:02 Dose: 12.5 mg Piperacillin Sod/Tazobactam (Sod 3.375 gm/ Sodium Chloride) 100 mls @ 100 mls/ hr IVPB Q6 [facility] PRN Reason: Protocol Last Admin: 05/07/17 04:21 Dose: 100 mls/hr Ciprofloxacin (Cipro 400mg/200ml Dsw) 400 mg in 200 mls @ 200 mls/hr IVPB Q12 [facility] PRN Reason: Protocol Last Admin: 05/06/17 21:06 Dose: 200 mls/hr Insulin Human Regular (Humulin R) 0 units SC ACHS [facility] PRN Reason: Protocol Last Admin: 05/07/17 06:36 Dose: Not Given Lactic Acid (Lac-Hydrin 12% Lotion (225 G)) 1 applic TOP TID [facility] Last Admin: 05/06/17 16:40 Dose: 1 applic Metformin HCl (Glucophage) 500 mg PO BIDWM [facility] Last Admin: 05/06/17 17:00 Dose: Not Given Methylprednisolone (Solu-Medrol) 30 mg IVP DAILY [facility] Metoprolol Tartrate (Lopressor) 12.5 mg PO Q12 [facility] Last Admin: 05/06/17 21:20 Dose: 12.5 mg Triamcinolone Acetonide (Kenalog 0.1% Oint) 0 appl TOP BID [facility] Last Admin: 05/06/17 16:39 Dose: 1 appl - Labs Labs: 05/03/17 04:20 05/03/17 04:20 PT 13.2 Seconds (9.8-13.1) H 05/02/17 12:30 INR 1.7 (0.9-1.2) H 05/02/17 12:30 APTT 30.7 Seconds (25.6-37.1) 05/02/17 12:30 - Constitutional Appears: Well, No Acute Distress, Older Than Stated Age - Head Exam Head Exam: ATRAUMATIC, NORMAL INSPECTION, NORMOCEPHALIC - Eye Exam Eye Exam: EOMI, Normal appearance, PERRL - ENT Exam ENT Exam: Mucous Membranes Moist - Neck Exam Neck Exam: Full ROM - Respiratory Exam Respiratory Exam: Wheezes (on expiration ), NORMAL BREATHING PATTERN. absent: Respiratory Distress - Cardiovascular Exam Cardiovascular Exam: REGULAR RHYTHM, +S1, +S2 - GI/Abdominal Exam GI & Abdominal Exam: Soft, Normal Bowel Sounds. absent: Distended, Tenderness - Extremities Exam Extremities Exam: Full ROM. absent: Pedal Edema, Tenderness Additional comments: extensive psoriasis b/l in the upper and lower extremities - Back Exam Back Exam: NORMAL INSPECTION. absent: CVA tenderness (L), CVA tenderness (R) - Neurological Exam Neurological Exam: Alert, Awake, CN II-XII Intact, Oriented x3 - Psychiatric Exam Psychiatric exam: Normal Affect, Normal Mood - Skin Skin Exam: Dry, Intact, Normal Color, Warm Assessment and Plan - Assessment and Plan (Free Text) Assessment: Assessment/plan: 66 YO homeless Male with PMH of COPD, HTN, Asthma, PE (s/p IVC filter), psoriasis who is admitted for COPD exacerbation. Breathing continues to improving, audible expiratory wheezing, remains afebrile. 1) COPD exacerbation, improving -continue NC prn -endorses dyspnea, stat duoneb given -Duoneb Q4h lovely -taper steriod, continue Solumedrol 30 mg Q8h -pt remains afebrile fever, no leukocytosis -sputum culture appreciated, + e. coli -pulmonary consult appreciated, pt is optimized and continue current management. Recs include out-pt PFTs. 2) Pseudomonas Bacteremia -pt remains afebrile, no leukocytosis -blood culture positive for gram neg rods -cardiology consult appreciated, no vegetations- no need for DAVID. -ID consult appreciated will cont abx -continue cipro (D3/10) and zosyn (D3/10). Will need 10 days of Cipro -PICC line ordered 3) Chest pain/discomfort -Troponin x 3 neg -ekg normal sinus no ST changes done on admission -echo (05/03), normal systolic function with EF 65-70% -pt endorses vague chest discomfort this afternoon -ekg ordered, read by me sinus bradycardia with rate of [address] changes -chest xray ordered, no acute findings, PICC line in SVC. -Tylenol 650 mg PO PRN pain 4) Hx of PE and tachycardia -tachycardia resolved at this time -IVC filter in place -Tachycardia likely 2/2 to albuterol treatment -will continue to monitor 5) DM, controlled -Last HgbA1C was 6.7 % on 12/19/16 -continue metformin 500mg BID -Accucheck ACHS -Insulin sliding scale low dose protocol 6) HTN, controlled -d/c metropolol 12.5mg q12 -will start pt on lisinopril 10mg daily 7) Psoriasis -triamcinolone 0.1% -ammonium lactate 12 % TOP TID 8) Lung Nodule -CT chest 02/13 Paraeptal bullous emphysema. 3 mm righ lower lobe nodule for which 1 year f/u is recommended. -[address] chest follow up as outpatient 9) DVT prophylaxis -s/p IVC filter -continue Lovenox sbcu
[2017-05-07] MEDS: Enoxaparin 40 mg Syringe SC SCH (10:10)
[2017-05-07] MEDS: Ciprofloxacin 400mg/200ml D5W 400 MG/200 ML BAG IVPB SCH ×2 (10:10→21:12)
[2017-05-07] MEDS: MethylPREDNISolone 40 mg Vial IVP SCH (10:16)
--- NOTE | 2017-05-07 11:33 | RAD ---
HISTORY: chest discomfort COMPARISON: 05/02/2017 FINDINGS: The right PICC line terminates in the SVC. LUNGS: The lungs are well inflated and clear. PLEURA: No significant pleural effusion identified, no pneumothorax apparent. CARDIOVASCULAR: Normal. OSSEOUS STRUCTURES: No significant abnormalities. VISUALIZED UPPER ABDOMEN: Normal. OTHER FINDINGS: None. IMPRESSION: No acute findings. The right PICC line terminates in the SVC.
[2017-05-07] MEDS ORDERED: Albuterol-Ipratrop 3 mg / 0.5 (3 ml) UD INH STA (12:39)
[2017-05-08] MEDS: Piperacillin/Tazobact 3.375 GM in Sodium Chloride 0.9% 100 ML IVPB SCH ×4 (04:40→22:09)
[2017-05-08 07:23] LABS: HEMATOCRIT 43.8 % (35.0-51.0); MEAN CELL VOLUME 85.4 fl (80.0-94.0); MEAN CORPUSCULAR HEMOGLOBIN 27.7 pg (27.0-31.0); MEAN CORPUSCULAR HGB CONC 32.5 g/dL (33.0-37.0); RED CELL DISTRIBUTION WIDTH 16.6 % (11.5-14.5); WHITE BLOOD COUNT 11.9 K/uL (4.8-10.8)
[2017-05-08 07:33] LABS: ALB/GLOB RATIO 1.1 (1.0-2.1); ALKALINE PHOSPHATASE 40 U/L (38-126); ALT/SGPT 33 U/L (21-72); AST/SGOT 20 U/L (17-59); BILIRUBIN,TOTAL 0.2 mg/dl (0.2-1.3); BLOOD UREA NITROGEN 32 mg/dl (9-20); CALCIUM 8.7 mg/dL (8.4-10.2); CARBON DIOXIDE 28 mmol/L (22-30); CHLORIDE 101 mmol/L (98-107); GFR AFRICAN-AMERICAN > 60; GLUCOSE,RANDOM 167 mg/dL (75-110); POTASSIUM 4.1 MMOL/L (3.6-5.0); SODIUM 139 mmol/l (132-148); TOTAL PROTEIN 6.4 G/DL (6.3-8.2)
[2017-05-08] MEDS: Ciprofloxacin 400mg/200ml D5W 400 MG/200 ML BAG IVPB SCH ×2 (09:47→20:49)
[2017-05-08] MEDS: Insulin Regular 100 units/ml SC SCH ×4 (09:48→22:00)
[2017-05-08] MEDS: MethylPREDNISolone 40 mg Vial IVP SCH (09:54)
[2017-05-08] MEDS: Enoxaparin 40 mg Syringe SC SCH (09:54)
--- NOTE | 2017-05-08 09:56 | CP.PCM.PN ---
Subjective - Date & Time of Evaluation Date of Evaluation: 05/08/17 Time of Evaluation: 09:53 - Subjective Subjective: pt seen and examined at bedside this morning. No acute events overnight. Labs/ vitals reviewed. Discussed stay with nursing staff. Elevated WBC to 11.9 noted, likely secondary to demargination from steroid therapy. Afebrile. Cough improving as per pt. Denies CP/SOB/palpitations, N/V/D/C. No other complaints. Objective - Vital Signs/Intake and Output Vital Signs (last 24 hours): Temp Pulse Resp BP Pulse Ox 97.6 F 65 20 111/49 L 100 05/08/17 08:57 05/08/17 08:57 05/08/17 08:57 05/08/17 08:57 05/08/17 08:57 Intake and Output: 05/08/17 05/08/17 06:59 18:59 Intake Total 540 Balance 540 - Medications Medications: Current Medications Acetaminophen (Tylenol 325mg Tab) 650 mg PO Q6 PRN PRN Reason: chest pain or fever >100.4 Last Admin: 05/04/17 21:21 Dose: 650 mg Albuterol/Ipratropium (Duoneb 3 Mg/0.5 Mg (3 Ml) Ud) 3 ml INH RQ4 PRN PRN Reason: Shortness of Breath Last Admin: 05/07/17 08:16 Dose: 3 ml Dextrose (Dextrose 50% Inj) 0 ml IV STAT PRN; Protocol PRN Reason: Hyglycemia Protocol Dextrose (Glutose 15) 0 gm PO ONCE PRN; Protocol PRN Reason: Hypoglycemia Protocol Dextrose (Dextrose 50% Inj) 0 ml IV STAT PRN; Protocol PRN Reason: Hyglycemia Protocol Dextrose (Glutose 15) 0 gm PO ONCE PRN; Protocol PRN Reason: Hypoglycemia Protocol Emollient Ointment (Vaseline Oint) 1 pkt TOP BID PRN PRN Reason: Dry skin Enoxaparin Sodium (Lovenox) 40 mg SC DAILY [facility] PRN Reason: Protocol Last Admin: 05/07/17 10:10 Dose: 40 mg Glucagon (Glucagen Diagnostic Kit) 0 mg IM STAT PRN; Protocol PRN Reason: Hypoglycemia Protocol Glucagon (Glucagen Diagnostic Kit) 0 mg IM STAT PRN; Protocol PRN Reason: Hypoglycemia Protocol Hydrochlorothiazide (Microzide) 12.5 mg PO DAILY [facility] Last Admin: 05/07/17 10:16 Dose: 12.5 mg Piperacillin Sod/Tazobactam (Sod 3.375 gm/ Sodium Chloride) 100 mls @ 100 mls/ hr IVPB Q6 [facility] PRN Reason: Protocol Last Admin: 05/08/17 04:40 Dose: 100 mls/hr Ciprofloxacin (Cipro 400mg/200ml Dsw) 400 mg in 200 mls @ 200 mls/hr IVPB Q12 [facility] PRN Reason: Protocol Last Admin: 05/08/17 09:47 Dose: 200 mls/hr Insulin Human Regular (Humulin R) 0 units SC ACHS [facility] PRN Reason: Protocol Last Admin: 05/08/17 09:48 Dose: 1 unit Lactic Acid (Lac-Hydrin 12% Lotion (225 G)) 1 applic TOP TID [facility] Last Admin: 05/07/17 17:07 Dose: 1 applic Lisinopril (Zestril) 10 mg PO DAILY [facility] Metformin HCl (Glucophage) 500 mg PO BIDWM [facility] Last Admin: 05/07/17 16:59 Dose: 500 mg Methylprednisolone (Solu-Medrol) 30 mg IVP DAILY [facility] Last Admin: 05/07/17 10:16 Dose: 30 mg Triamcinolone Acetonide (Kenalog 0.1% Oint) 0 appl TOP BID [facility] Last Admin: 05/07/17 17:08 Dose: 1 appl - Labs Labs: 05/08/17 05:30 05/08/17 05:30 PT 13.2 Seconds (9.8-13.1) H 05/02/17 12:30 INR 1.7 (0.9-1.2) H 05/02/17 12:30 APTT 30.7 Seconds (25.6-37.1) 05/02/17 12:30 - Constitutional Appears: Non-toxic, No Acute Distress, Unkempt - Head Exam Head Exam: ATRAUMATIC - Eye Exam Eye Exam: EOMI Pupil Exam: PERRL - ENT Exam ENT Exam: Mucous Membranes Moist - Neck Exam Neck Exam: Full ROM - Respiratory Exam Respiratory Exam: Wheezes (global expiratory wheezes b/l), NORMAL BREATHING PATTERN. absent: Accessory Muscle Use, Rales, Rhonchi, Respiratory Distress - Cardiovascular Exam Cardiovascular Exam: REGULAR RHYTHM, RRR, +S1, +S2. absent: Gallop, JVD, Rubs, Murmur - GI/Abdominal Exam GI & Abdominal Exam: Soft, Normal Bowel Sounds. absent: Tenderness - Extremities Exam Extremities Exam: absent: Calf Tenderness - Neurological Exam Neurological Exam: Alert, Awake, CN II-XII Intact, Oriented x3 - Skin Skin Exam: Dry, Normal Color, Rash, Warm. absent: Erythema Additional comments: extensive dry, crusting, psoriatic lesions are appreciated on both upper and lower extremities. No signs of superimposed bacterial infection, erythema, discharge, tenderness. Assessment and Plan - Assessment and Plan (Free Text) Assessment: 66 y/o male with PMHx of COPD, HTN, Asthma, PE (s/p IVC filter), psoriasis who is admitted for Psesudomonal bacteremia with secondary COPD exacerbation. IV Abx day 10/26. 1) Pseudomonas Bacteremia ABx therapy D#4 -afebrile -blood culture positive: Pseudomonas Aerginosa -f/u blood culture negative -Urine cultures negative -Cardiology consult: no vegetations- no need for DAVID. -ID consult: will cont abx cipro/zosyn. Will need 10 days therapy. -s/p PICC line insertion 2) Leukocytosis: -WBC on 05/08 is 11.9, likley secondary to demargination from COPD steroid therapy -afebrile -will continue to monitor CBC and vitals -currently on IV Abx 3) COPD exacerbation -improving -POX 99-100% on RA -continue 2L O2 via NC prn -Duoneb Q4h lovely -taper steriod, continue Solumedrol 30 mg Q8h -afebrile -sputum culture: + e. coli -pulmonary consult: pt is optimized and continue current management. Recs include out-pt PFTs. 4) Chest pain/discomfort -resolved -Troponin x 3 neg -EKG: normal sinus no ST changes done on admission -ECHO (05/03), normal systolic function with EF 65-70% -f/u EKG on 05/07: -f/u Port CXR on 05/07: no active disease, R PICC line terminates in SVC. -Tylenol 650 mg PO PRN pain 5) Hx of PE and tachycardia -normal cardiac rhythm today -IVC filter in place -Tachycardia likely 2/2 to albuterol treatment -c/w monitoring vitals 6) NIDDM2, controlled -Last HgbA1C was 6.7 % on 12/19/16 -continue metformin 500mg BID -Accucheck ACHS -Insulin sliding scale low dose protocol 7) HTN, controlled -d/dimitri metropolol 12.5mg q12 -lisinopril 10mg daily 8) Psoriasis -triamcinolone 0.1% -ammonium lactate 12 % TOP TID 9) Lung Nodule -CT chest 02/13 Paraeptal bullous emphysema. 3 mm righ lower lobe nodule for which 1 year f/u is recommended. -[address] chest follow up as outpatient 10) Prophylaxis -s/p IVC filter -continue Lovenox SC QD
[2017-05-08] MEDS ORDERED: Lactated Ringer's 1,000 ML IV SCH (12:15)
[2017-05-08] MEDS: Lactated Ringer's 1,000 ML IV SCH ×2 (12:39→22:10)
[2017-05-09] MEDS: Piperacillin/Tazobact 3.375 GM in Sodium Chloride 0.9% 100 ML IVPB SCH ×4 (04:23→22:13)
[2017-05-09 06:55] LABS: HEMATOCRIT 40.6 % (35.0-51.0); MEAN CELL VOLUME 85.3 fl (80.0-94.0); MEAN CORPUSCULAR HEMOGLOBIN 27.7 pg (27.0-31.0); MEAN CORPUSCULAR HGB CONC 32.5 g/dL (33.0-37.0); WHITE BLOOD COUNT 12.9 K/uL (4.8-10.8)
[2017-05-09] MEDS: Insulin Regular 100 units/ml SC SCH ×4 (07:30→22:15)
[2017-05-09] MEDS: Ciprofloxacin 400mg/200ml D5W 400 MG/200 ML BAG IVPB SCH ×2 (09:42→20:41)
[2017-05-09] MEDS: Enoxaparin 40 mg Syringe SC SCH (09:44)
--- NOTE | 2017-05-09 09:46 | CP.PCM.PN ---
Subjective - Date & Time of Evaluation Date of Evaluation: 05/09/17 Time of Evaluation: 09:44 - Subjective Subjective: HD 7 66 YO Male admitted for COPD exacerbation and pseudomonas bacteremia. On IV abx D 11/25 S: No acute overnight events. Pt is seen walking around his room, breathing comfortably in RA. Has expiratory wheezing at baseline. Endorses diarrhea, and vague abdominal discomfort. Two episodes of diarrhea on the last two days, no blood noted. Denies chest pain, dyspnea, palpitations, n/v/c, chills and remains afebrile. Objective - Vital Signs/Intake and Output Vital Signs (last 24 hours): Temp Pulse Resp BP Pulse Ox 97.9 F 65 20 135/67 100 05/09/17 08:28 05/09/17 08:28 05/09/17 08:28 05/09/17 08:28 05/09/17 08:28 Intake and Output: 05/09/17 05/09/17 06:59 18:59 Intake Total 880 Balance 880 - Medications Medications: Current Medications Acetaminophen (Tylenol 325mg Tab) 650 mg PO Q6 PRN PRN Reason: chest pain or fever >100.4 Last Admin: 05/04/17 21:21 Dose: 650 mg Albuterol/Ipratropium (Duoneb 3 Mg/0.5 Mg (3 Ml) Ud) 3 ml INH RQ4 PRN PRN Reason: Shortness of Breath Last Admin: 05/07/17 08:16 Dose: 3 ml Dextrose (Dextrose 50% Inj) 0 ml IV STAT PRN; Protocol PRN Reason: Hyglycemia Protocol Dextrose (Glutose 15) 0 gm PO ONCE PRN; Protocol PRN Reason: Hypoglycemia Protocol Dextrose (Dextrose 50% Inj) 0 ml IV STAT PRN; Protocol PRN Reason: Hyglycemia Protocol Dextrose (Glutose 15) 0 gm PO ONCE PRN; Protocol PRN Reason: Hypoglycemia Protocol Emollient Ointment (Vaseline Oint) 1 pkt TOP BID PRN PRN Reason: Dry skin Enoxaparin Sodium (Lovenox) 40 mg SC DAILY [facility] PRN Reason: Protocol Last Admin: 05/08/17 09:54 Dose: 40 mg Glucagon (Glucagen Diagnostic Kit) 0 mg IM STAT PRN; Protocol PRN Reason: Hypoglycemia Protocol Glucagon (Glucagen Diagnostic Kit) 0 mg IM STAT PRN; Protocol PRN Reason: Hypoglycemia Protocol Hydrochlorothiazide (Microzide) 12.5 mg PO DAILY [facility] Last Admin: 05/08/17 09:55 Dose: 12.5 mg Piperacillin Sod/Tazobactam (Sod 3.375 gm/ Sodium Chloride) 100 mls @ 100 mls/ hr IVPB Q6 [facility] PRN Reason: Protocol Last Admin: 05/09/17 09:39 Dose: 100 mls/hr Ciprofloxacin (Cipro 400mg/200ml Dsw) 400 mg in 200 mls @ 200 mls/hr IVPB Q12 [facility] PRN Reason: Protocol Last Admin: 05/09/17 09:42 Dose: 200 mls/hr Lactated Ringer's (Lactated Ringer's 500ml) 1,000 mls @ 100 mls/hr IV .Q10H [facility] Last Admin: 05/08/17 22:10 Dose: 100 mls/hr Insulin Human Regular (Humulin R) 0 units SC ACHS [facility] PRN Reason: Protocol Last Admin: 05/09/17 07:30 Dose: Not Given Lactic Acid (Lac-Hydrin 12% Lotion (225 G)) 1 applic TOP TID [facility] Last Admin: 05/08/17 17:42 Dose: 1 applic Lisinopril (Zestril) 10 mg PO DAILY [facility] Last Admin: 05/08/17 09:55 Dose: 10 mg Metformin HCl (Glucophage) 500 mg PO BIDWM [facility] Last Admin: 05/08/17 17:39 Dose: 500 mg Methylprednisolone (Solu-Medrol) 30 mg IVP DAILY [facility] Last Admin: 05/08/17 09:54 Dose: 30 mg Triamcinolone Acetonide (Kenalog 0.1% Oint) 0 appl TOP BID [facility] Last Admin: 05/08/17 17:43 Dose: 1 appl - Labs Labs: 05/09/17 05:30 05/08/17 05:30 PT 13.2 Seconds (9.8-13.1) H 05/02/17 12:30 INR 1.7 (0.9-1.2) H 05/02/17 12:30 APTT 30.7 Seconds (25.6-37.1) 05/02/17 12:30 - Constitutional Appears: Well, Older Than Stated Age - Head Exam Head Exam: ATRAUMATIC, NORMAL INSPECTION, NORMOCEPHALIC - Eye Exam Eye Exam: EOMI, Normal appearance - ENT Exam ENT Exam: Mucous Membranes Moist - Neck Exam Neck Exam: Full ROM - Respiratory Exam Respiratory Exam: Clear to Ausculation Bilateral, Wheezes (audiable wheezing at baseline, no crackles ), NORMAL BREATHING PATTERN - Cardiovascular Exam Cardiovascular Exam: REGULAR RHYTHM, +S1, +S2 - GI/Abdominal Exam GI & Abdominal Exam: Soft, Normal Bowel Sounds. absent: Distended, Tenderness - Extremities Exam Extremities Exam: Full ROM. absent: Calf Tenderness, Pedal Edema Additional comments: extensive psoriasis noted b/l in the upper and lower extremities. - Back Exam Back Exam: NORMAL INSPECTION. absent: CVA tenderness (L), CVA tenderness (R) - Neurological Exam Neurological Exam: Alert, Awake, Normal Gait, Oriented x3 - Psychiatric Exam Psychiatric exam: Normal Affect, Normal Mood - Skin Skin Exam: Dry, Intact, Warm Assessment and Plan - Assessment and Plan (Free Text) Assessment: 66 y/o male with PMHx of COPD, HTN, Asthma, PE (s/p IVC filter), psoriasis who is admitted for Psesudomonal bacteremia with secondary COPD exacerbation. IV Abx day 11/25. 1) Pseudomonas Bacteremia, afebrile -ABx therapy D#5 -blood culture positive: Pseudomonas Aerginosa -f/u blood culture negative -Urine cultures negative -Cardiology consult: no vegetations- no need for DAVID. -ID consult: will cont abx cipro/zosyn. Will need 10 days therapy. -s/p PICC line insertion -repeat blood culture ordered for AM 2) Leukocytosis, afebrile -WBC 11.9-->12.9, likely secondary to demargination from COPD steroid therapy -will continue to monitor CBC and vitals -currently on IV Abx 3) COPD exacerbation, improving -O2 98-100% on RA -continue 2L O2 via NC prn -Duoneb Q4h lovely -taper steriod, continue Solumedrol 30 mg Q8h -remains afebrile -sputum culture: + e. coli -pulmonary consult: pt is optimized and continue current management. Recs include out-pt PFTs. 4) Chest pain/discomfort, resolved -Troponin x 3 neg -EKG: normal sinus no ST changes done on admission -ECHO (05/03), normal systolic function with EF 65-70% -f/u EKG on 05/07 -Port CXR on 05/07: no active disease, R PICC line terminates in SVC. -Tylenol 650 mg PO PRN pain 5) Hx of PE and tachycardia -normal cardiac rate today -IVC filter in place -Tachycardia likely 2/2 to albuterol treatment -c/w monitoring vitals 6) NIDDM2, controlled -Last HgbA1C was 6.7 % on 12/19/16 -will d/c metformin 500mg BID -start glipizide SR 5mg -Accucheck ACHS -Insulin sliding scale low dose protocol 7) Diarrhea -likely due to metformin -d/c metformin -c. diff negative -start probiotic -will continue to monitor 8) HTN, controlled -d/dimitri metropolol 12.5mg q12 -continue lisinopril 10mg daily 9) Psoriasis -triamcinolone 0.1% -ammonium lactate 12 % TOP TID 10) Lung Nodule -CT chest 02/13 Paraeptal bullous emphysema. 3 mm righ lower lobe nodule for which 1 year f/u is recommended. -[address] chest follow up as outpatient 11) Prophylaxis -s/p IVC filter -continue Lovenox SC QD
[2017-05-09] MEDS: MethylPREDNISolone 40 mg Vial IVP SCH (10:02)
[2017-05-09] MEDS: Lactated Ringer's 1,000 ML IV SCH ×2 (10:07→22:14)
[2017-05-09] MEDS: Albuterol-Ipratrop 3 mg / 0.5 (3 ml) UD INH PRN (10:31)
[2017-05-09] MEDS: Lactobacillus Acidophilus 500 MU Cap PO SCH ×2 (17:03→17:04)
[2017-05-10] MEDS: Piperacillin/Tazobact 3.375 GM in Sodium Chloride 0.9% 100 ML IVPB SCH ×4 (04:10→21:22)
[2017-05-10] MEDS: Insulin Regular 100 units/ml SC SCH ×4 (06:35→21:33)
[2017-05-10] MEDS: Lactated Ringer's 1,000 ML IV SCH ×2 (06:49→15:01)
--- NOTE | 2017-05-10 07:32 | CP.PCM.PN ---
Subjective - Date & Time of Evaluation Date of Evaluation: 05/10/17 Time of Evaluation: 07:31 - Subjective Subjective: HD 8 66 YO Male admitted for COPD exacerbation and pseudomonas bacteremia. On IV abx D 12/26 S: No acute overnight events. Pt has audible wheezing at baseline. Pt endorses mild abdominal discomfort and had a loose BM last night. Denies chest pain, dyspnea, palpitations, n/v/d/c and remains afebrile. Objective - Vital Signs/Intake and Output Vital Signs (last 24 hours): Temp Pulse Resp BP Pulse Ox 97.6 F 90 20 116/62 100 05/10/17 00:24 05/10/17 00:24 05/10/17 00:24 05/10/17 00:24 05/10/17 00:24 - Medications Medications: Current Medications Acetaminophen (Tylenol 325mg Tab) 650 mg PO Q6 PRN PRN Reason: chest pain or fever >100.4 Last Admin: 05/04/17 21:21 Dose: 650 mg Albuterol/Ipratropium (Duoneb 3 Mg/0.5 Mg (3 Ml) Ud) 3 ml INH RQ4 PRN PRN Reason: Shortness of Breath Last Admin: 05/09/17 10:31 Dose: 3 ml Dextrose (Dextrose 50% Inj) 0 ml IV STAT PRN; Protocol PRN Reason: Hyglycemia Protocol Dextrose (Glutose 15) 0 gm PO ONCE PRN; Protocol PRN Reason: Hypoglycemia Protocol Emollient Ointment (Vaseline Oint) 1 pkt TOP BID PRN PRN Reason: Dry skin Enoxaparin Sodium (Lovenox) 40 mg SC DAILY [facility] PRN Reason: Protocol Last Admin: 05/09/17 09:44 Dose: 40 mg Glipizide (Glucotrol Xl) 5 mg PO BRK [facility] Glucagon (Glucagen Diagnostic Kit) 0 mg IM STAT PRN; Protocol PRN Reason: Hypoglycemia Protocol Hydrochlorothiazide (Microzide) 12.5 mg PO DAILY [facility] Last Admin: 05/09/17 09:44 Dose: 12.5 mg Piperacillin Sod/Tazobactam (Sod 3.375 gm/ Sodium Chloride) 100 mls @ 100 mls/ hr IVPB Q6 [facility] PRN Reason: Protocol Last Admin: 05/10/17 04:10 Dose: 100 mls/hr Ciprofloxacin (Cipro 400mg/200ml Dsw) 400 mg in 200 mls @ 200 mls/hr IVPB Q12 [facility] PRN Reason: Protocol Last Admin: 05/09/17 20:41 Dose: 200 mls/hr Lactated Ringer's (Lactated Ringer's 500ml) 1,000 mls @ 100 mls/hr IV .Q10H [facility] Last Admin: 05/10/17 06:49 Dose: 100 mls/hr Insulin Human Regular (Humulin R) 0 units SC ACHS [facility] PRN Reason: Protocol Last Admin: 05/10/17 06:35 Dose: Not Given Lactic Acid (Lac-Hydrin 12% Lotion (225 G)) 1 applic TOP TID [facility] Last Admin: 05/09/17 20:42 Dose: 1 applic Lactobacillus Acidophilus (Bacid Acidophilus) 1 cap PO BID [facility] Last Admin: 05/09/17 17:04 Dose: Not Given Lisinopril (Zestril) 10 mg PO DAILY [facility] Last Admin: 05/09/17 10:02 Dose: 10 mg Methylprednisolone (Solu-Medrol) 30 mg IVP DAILY [facility] Last Admin: 05/09/17 10:02 Dose: 30 mg Triamcinolone Acetonide (Kenalog 0.1% Oint) 0 appl TOP BID [facility] Last Admin: 05/09/17 20:41 Dose: 1 appl - Labs Labs: 05/09/17 05:30 05/08/17 05:30 PT 13.2 Seconds (9.8-13.1) H 05/02/17 12:30 INR 1.7 (0.9-1.2) H 05/02/17 12:30 APTT 30.7 Seconds (25.6-37.1) 05/02/17 12:30 - Constitutional Appears: Well, Older Than Stated Age - Head Exam Head Exam: ATRAUMATIC, NORMAL INSPECTION, NORMOCEPHALIC - Eye Exam Eye Exam: EOMI, Normal appearance, PERRL - ENT Exam ENT Exam: Mucous Membranes Moist - Neck Exam Neck Exam: Full ROM - Respiratory Exam Respiratory Exam: Clear to Ausculation Bilateral, Wheezes (b/l audiable expiratory wheezing ), NORMAL BREATHING PATTERN - Cardiovascular Exam Cardiovascular Exam: REGULAR RHYTHM, +S1, +S2 - GI/Abdominal Exam GI & Abdominal Exam: Soft, Normal Bowel Sounds. absent: Guarding, Tenderness - Extremities Exam Extremities Exam: Full ROM. absent: Pedal Edema, Tenderness Additional comments: extensive psoriasis noted in the upper and lower extremities - Back Exam Back Exam: NORMAL INSPECTION. absent: CVA tenderness (L), CVA tenderness (R) - Neurological Exam Neurological Exam: Alert, Awake, Normal Gait, Oriented x3 - Psychiatric Exam Psychiatric exam: Normal Affect, Normal Mood - Skin Skin Exam: Dry, Intact, Normal Color Assessment and Plan - Assessment and Plan (Free Text) Assessment: 66 y/o male with PMHx of COPD, HTN, Asthma, PE (s/p IVC filter), psoriasis who is admitted for Psesudomonal bacteremia with secondary COPD exacerbation. IV Abx day 12/26. 1) Pseudomonas Bacteremia, afebrile -ABx therapy D#6 -blood culture positive: Pseudomonas Aerginosa -f/u blood culture negative -Urine cultures negative -Cardiology consult: no vegetations- no need for DAVID. -ID consult: will cont abx cipro/zosyn. Will need 10 days therapy. -s/p PICC line insertion -repeat blood culture ordered, follow up 2) Leukocytosis, afebrile -WBC 11.9-->12.9, likely secondary to demargination from COPD steroid therapy -will continue to monitor CBC and vitals -currently on IV Abx 3) COPD exacerbation, improving -O2 98-100% on RA -continue 2L O2 via NC prn -Duoneb Q4h lovely -taper steriod, continue Solumedrol 30 mg daily -remains afebrile -sputum culture: + e. coli -pulmonary consult: pt is optimized and continue current management. Recs include out-pt PFTs. 4) Chest pain/discomfort, resolved -Troponin x 3 neg -EKG: normal sinus no ST changes done on admission -ECHO (05/03), normal systolic function with EF 65-70% -EKG 05/07, sinus bradycardia with rate of 55 bpm -Port CXR 05/07: no active disease, R PICC line terminates in SVC. -Tylenol 650 mg PO PRN pain 5) Hx of PE and tachycardia -normal cardiac rate today -IVC filter in place -Tachycardia likely 2/2 to albuterol treatment -c/w monitoring vitals 6) NIDDM2, controlled -Last HgbA1C was 6.7 % on 12/19/16 -will d/c metformin 500mg BID -start glipizide SR 5mg -Accucheck ACHS -Insulin sliding scale low dose protocol 7) Diarrhea -likely due to metformin -d/c metformin -c. diff negative -continue probiotic -will continue to monitor 8) HTN, controlled -d/dimitri metropolol 12.5mg q12 -continue lisinopril and Hctz daily 9) Psoriasis -triamcinolone 0.1% -ammonium lactate 12 % TOP TID 10) Lung Nodule -CT chest 02/13 Paraeptal bullous emphysema. 3 mm righ lower lobe nodule for which 1 year f/u is recommended. -[address] chest follow up as outpatient 11) Prophylaxis -s/p IVC filter -continue Lovenox SC QD
[2017-05-10] MEDS: Ciprofloxacin 400mg/200ml D5W 400 MG/200 ML BAG IVPB SCH ×2 (08:26→21:21)
[2017-05-10] MEDS: Lactobacillus Acidophilus 500 MU Cap PO SCH ×2 (08:26→16:26)
[2017-05-10] MEDS: GlipiZIDE 5 mg SR Tab PO SCH (08:26)
[2017-05-10] MEDS: Enoxaparin 40 mg Syringe SC SCH (08:27)
[2017-05-10] MEDS: MethylPREDNISolone 40 mg Vial IVP SCH (08:32)
--- NOTE | 2017-05-10 09:01 | CARD ---
APPROVED REPORT EKG Measurement Heart [id number] <Conclusion> Sinus bradycardia Otherwise normal ECG
[2017-05-10 13:50] VITALS: BMI 26.6
[2017-05-11] MEDS: Lactated Ringer's 1,000 ML IV SCH ×2 (00:45→11:07)
[2017-05-11] MEDS: Piperacillin/Tazobact 3.375 GM in Sodium Chloride 0.9% 100 ML IVPB SCH ×4 (04:00→21:21)
[2017-05-11] MEDS ORDERED: Piperacillin/Tazobact 3.375 GM in Sodium Chloride 0.9% 100 ML IVPB ONE (04:00)
[2017-05-11] MEDS: Insulin Regular 100 units/ml SC SCH ×4 (06:46→22:09)
[2017-05-11] MEDS: Ciprofloxacin 400mg/200ml D5W 400 MG/200 ML BAG IVPB SCH ×2 (08:14→20:17)
[2017-05-11] MEDS: MethylPREDNISolone 40 mg Vial IVP SCH (08:14)
[2017-05-11] MEDS: Lactobacillus Acidophilus 500 MU Cap PO SCH ×2 (08:14→16:09)
[2017-05-11] MEDS: GlipiZIDE 5 mg SR Tab PO SCH (08:15)
[2017-05-11] MEDS: Enoxaparin 40 mg Syringe SC SCH (08:15)
--- NOTE | 2017-05-11 09:28 | CP.PCM.PN ---
Subjective - Date & Time of Evaluation Date of Evaluation: 05/11/17 Time of Evaluation: 09:24 - Subjective Subjective: 66 YO Male admitted for COPD exacerbation and pseudomonas bacteremia. On IV abx D 01/25 S: No acute overnight events. Pt seen eating breakfast this AM. He states that he feel well this morning. He still has the wheezing, but breathing better then previously. Denies chest pain, dyspnea, palpitations, abdominal pain, n/v/d/c. Of note, pt states that his emergency contact is his son Luis Brown who lives in the [place], . Pt does not want son to know about his hospital admission at this time. He also has a sister named Minerva who lives in [facility] Pt lives in the [facility] [place] and lives with a friend [place] Objective - Vital Signs/Intake and Output Vital Signs (last 24 hours): Temp Pulse Resp BP Pulse Ox 97.9 F 67 18 107/61 100 05/11/17 07:30 05/11/17 07:30 05/11/17 07:30 05/11/17 07:30 05/11/17 07:30 Intake and Output: 05/11/17 05/11/17 06:59 18:59 Intake Total 200 Output Total 300 Balance -100 - Medications Medications: Current Medications Acetaminophen (Tylenol 325mg Tab) 650 mg PO Q6 PRN PRN Reason: chest pain or fever >100.4 Last Admin: 05/04/17 21:21 Dose: 650 mg Albuterol/Ipratropium (Duoneb 3 Mg/0.5 Mg (3 Ml) Ud) 3 ml INH RQ4 PRN PRN Reason: Shortness of Breath Last Admin: 05/09/17 10:31 Dose: 3 ml Dextrose (Dextrose 50% Inj) 0 ml IV STAT PRN; Protocol PRN Reason: Hyglycemia Protocol Dextrose (Glutose 15) 0 gm PO ONCE PRN; Protocol PRN Reason: Hypoglycemia Protocol Emollient Ointment (Vaseline Oint) 1 pkt TOP BID PRN PRN Reason: Dry skin Enoxaparin Sodium (Lovenox) 40 mg SC DAILY [facility] PRN Reason: Protocol Last Admin: 05/11/17 08:15 Dose: 40 mg Glipizide (Glucotrol Xl) 5 mg PO BRK [facility] Last Admin: 05/11/17 08:15 Dose: 5 mg Glucagon (Glucagen Diagnostic Kit) 0 mg IM STAT PRN; Protocol PRN Reason: Hypoglycemia Protocol Hydrochlorothiazide (Microzide) 12.5 mg PO DAILY [facility] Last Admin: 05/11/17 08:15 Dose: 12.5 mg Piperacillin Sod/Tazobactam (Sod 3.375 gm/ Sodium Chloride) 100 mls @ 100 mls/ hr IVPB Q6 [facility] PRN Reason: Protocol Last Admin: 05/11/17 09:19 Dose: 100 mls/hr Ciprofloxacin (Cipro 400mg/200ml Dsw) 400 mg in 200 mls @ 200 mls/hr IVPB Q12 [facility] PRN Reason: Protocol Last Admin: 05/11/17 08:14 Dose: 200 mls/hr Lactated Ringer's (Lactated Ringer's 500ml) 1,000 mls @ 100 mls/hr IV .Q10H [facility] Last Admin: 05/11/17 00:45 Dose: Not Given Insulin Human Regular (Humulin R) 0 units SC ACHS [facility] PRN Reason: Protocol Last Admin: 05/11/17 06:46 Dose: Not Given Lactic Acid (Lac-Hydrin 12% Lotion (225 G)) 1 applic TOP TID [facility] Last Admin: 05/11/17 08:15 Dose: 1 applic Lactobacillus Acidophilus (Bacid Acidophilus) 1 cap PO BID [facility] Last Admin: 05/11/17 08:14 Dose: 1 cap Lisinopril (Zestril) 10 mg PO DAILY [facility] Last Admin: 05/11/17 08:15 Dose: 10 mg Methylprednisolone (Solu-Medrol) 30 mg IVP DAILY [facility] Last Admin: 05/11/17 08:14 Dose: 30 mg Triamcinolone Acetonide (Kenalog 0.1% Oint) 0 appl TOP BID [facility] Last Admin: 05/11/17 08:15 Dose: 1 appl - Labs Labs: 05/09/17 05:30 05/08/17 05:30 PT 12.3 Seconds (9.8-13.1) 05/11/17 06:00 INR 1.1 (0.9-1.2) 05/11/17 06:00 APTT 26.0 Seconds (25.6-37.1) 05/11/17 06:00 - Constitutional Appears: Well, No Acute Distress - Head Exam Head Exam: ATRAUMATIC, NORMAL INSPECTION, NORMOCEPHALIC - Eye Exam Eye Exam: EOMI, Normal appearance - ENT Exam ENT Exam: Mucous Membranes Moist - Neck Exam Neck Exam: Full ROM - Respiratory Exam Respiratory Exam: Clear to Ausculation Bilateral, Wheezes (expiratory wheezing on ascultation ), NORMAL BREATHING PATTERN - Cardiovascular Exam Cardiovascular Exam: REGULAR RHYTHM, +S1, +S2 - GI/Abdominal Exam GI & Abdominal Exam: Soft, Normal Bowel Sounds. absent: Tenderness - Extremities Exam Extremities Exam: Full ROM. absent: Pedal Edema Additional comments: extensive psoriasis in upper and lower extremities, skin intact. - Back Exam Back Exam: NORMAL INSPECTION. absent: CVA tenderness (L), CVA tenderness (R) - Neurological Exam Neurological Exam: Alert, Awake, Oriented x3 - Psychiatric Exam Psychiatric exam: Normal Affect, Normal Mood - Skin Skin Exam: Dry, Intact, Warm Assessment and Plan - Assessment and Plan (Free Text) Assessment: 66 y/o male with PMHx of COPD, HTN, Asthma, PE (s/p IVC filter), psoriasis admitted for Psesudomonal bacteremia with secondary COPD exacerbation. IV Abx day 01/25. 1) Pseudomonas Bacteremia, afebrile -ABx therapy D#7 -blood culture positive: Pseudomonas Aerginosa -f/u blood culture negative -Urine cultures negative -Cardiology consult: no vegetations- no need for DAVID. -ID consult: will cont abx cipro/zosyn. Will need 10 days therapy. -s/p PICC line insertion -repeat blood culture ordered, neg 24 hrs 2) Leukocytosis, afebrile -WBC 11.9-->12.9, likely secondary to demargination from COPD steroid therapy -will continue to monitor CBC and vitals -currently on IV Abx 3) COPD exacerbation, improving -O2 98-100% on RA -continue 2L O2 via NC prn -Duoneb Q4h lovely -taper steriod, continue Solumedrol 30 mg daily -remains afebrile -sputum culture: + e. coli -pulmonary consult: pt is optimized and continue current management. Recs include out-pt PFTs. 4) Hx of PE and tachycardia -normal cardiac rate today -IVC filter in place -Tachycardia likely 2/2 to albuterol treatment -c/w monitoring vitals 5) NIDDM2, controlled -Last HgbA1C was 6.7 % on 12/19/16 -d/dimitri metformin 500mg BID -continue glipizide SR 5mg -Insulin sliding scale low dose protocol -Accucheck ACHS 6) Diarrhea, improving -likely due to metformin -d/c metformin -c. diff negative -continue probiotic -will continue to monitor 7) HTN, controlled -d/dimitri metropolol 12.5mg q12 -d/dimitri Hctz -continue lisinopril 8) Psoriasis -triamcinolone 0.1% -ammonium lactate 12 % TOP TID 9) Lung Nodule -CT chest 02/13 Paraeptal bullous emphysema. 3 mm righ lower lobe nodule for which 1 year f/u is recommended. -[address] chest follow up as outpatient 10) Prophylaxis -s/p IVC filter -continue Lovenox SC QD 11) Pt would like to be Full Code, and wants everything to be done.
[2017-05-11] MEDS: Albuterol-Ipratrop 3 mg / 0.5 (3 ml) UD INH PRN (10:18)
--- NOTE | 2017-05-11 15:54 | CP.PCM.PN ---
Subjective - Date & Time of Evaluation Date of Evaluation: 05/11/17 Time of Evaluation: 15:50 - Subjective Subjective: I D NOTE followup blood cultures are negative sputum possible colonization would continue zosyn/cipro as wbc has increased to 12 Objective - Vital Signs/Intake and Output Vital Signs (last 24 hours): Temp Pulse Resp BP Pulse Ox 97.9 F 67 18 107/61 100 05/11/17 07:30 05/11/17 07:30 05/11/17 07:30 05/11/17 07:30 05/11/17 07:30 Intake and Output: 05/11/17 05/11/17 06:59 18:59 Intake Total 200 Output Total 300 Balance -100 - Medications Medications: Current Medications Acetaminophen (Tylenol 325mg Tab) 650 mg PO Q6 PRN PRN Reason: chest pain or fever >100.4 Last Admin: 05/04/17 21:21 Dose: 650 mg Albuterol/Ipratropium (Duoneb 3 Mg/0.5 Mg (3 Ml) Ud) 3 ml INH RQ4 PRN PRN Reason: Shortness of Breath Last Admin: 05/11/17 10:18 Dose: 3 ml Dextrose (Dextrose 50% Inj) 0 ml IV STAT PRN; Protocol PRN Reason: Hyglycemia Protocol Dextrose (Glutose 15) 0 gm PO ONCE PRN; Protocol PRN Reason: Hypoglycemia Protocol Emollient Ointment (Vaseline Oint) 1 pkt TOP BID PRN PRN Reason: Dry skin Enoxaparin Sodium (Lovenox) 40 mg SC DAILY [facility] PRN Reason: Protocol Last Admin: 05/11/17 08:15 Dose: 40 mg Glipizide (Glucotrol Xl) 5 mg PO BRK [facility] Last Admin: 05/11/17 08:15 Dose: 5 mg Glucagon (Glucagen Diagnostic Kit) 0 mg IM STAT PRN; Protocol PRN Reason: Hypoglycemia Protocol Piperacillin Sod/Tazobactam (Sod 3.375 gm/ Sodium Chloride) 100 mls @ 100 mls/ hr IVPB Q6 [facility] PRN Reason: Protocol Last Admin: 05/11/17 09:19 Dose: 100 mls/hr Ciprofloxacin (Cipro 400mg/200ml Dsw) 400 mg in 200 mls @ 200 mls/hr IVPB Q12 [facility] PRN Reason: Protocol Last Admin: 05/11/17 08:14 Dose: 200 mls/hr Insulin Human Regular (Humulin R) 0 units SC ACHS [facility] PRN Reason: Protocol Last Admin: 05/11/17 11:45 Dose: Not Given Lactic Acid (Lac-Hydrin 12% Lotion (225 G)) 1 applic TOP TID [facility] Last Admin: 05/11/17 13:05 Dose: 1 applic Lactobacillus Acidophilus (Bacid Acidophilus) 1 cap PO BID [facility] Last Admin: 05/11/17 08:14 Dose: 1 cap Lisinopril (Zestril) 10 mg PO DAILY [facility] Last Admin: 05/11/17 08:15 Dose: 10 mg Methylprednisolone (Solu-Medrol) 30 mg IVP DAILY [facility] Last Admin: 05/11/17 08:14 Dose: 30 mg Triamcinolone Acetonide (Kenalog 0.1% Oint) 0 appl TOP BID [facility] Last Admin: 05/11/17 08:15 Dose: 1 appl - Labs Labs: 05/09/17 05:30 05/08/17 05:30 PT 12.3 Seconds (9.8-13.1) 05/11/17 06:00 INR 1.1 (0.9-1.2) 05/11/17 06:00 APTT 26.0 Seconds (25.6-37.1) 05/11/17 06:00
[2017-05-11] MEDS ORDERED: Piperacill/Tazo 3.375gm in Dex 3.375 GM/50 ML BAG IVPB SCH (21:00)
[2017-05-12 07:13] LABS: BASO % 0.3 % (0.0-2.0); EOS # 0.1 K/uL (0.0-0.7); EOS % 0.8 % (0.0-4.0); HEMATOCRIT 39.1 % (35.0-51.0); LYMPH # 3.4 K/uL (1.0-4.3); LYMPH % 29.8 % (20.0-40.0); MEAN CELL VOLUME 84.6 fl (80.0-94.0); MEAN CORPUSCULAR HEMOGLOBIN 27.5 pg (27.0-31.0); MEAN CORPUSCULAR HGB CONC 32.5 g/dL (33.0-37.0); MEAN PLATELET VOLUME 8.6 fl (7.2-11.7); MONO # 1.7 K/uL (0.0-0.8); MONO % 14.7 % (0.0-10.0); NEUT # 6.3 K/uL (1.8-7.0); NEUT % 54.4 % (50.0-75.0); RED CELL DISTRIBUTION WIDTH 16.4 % (11.5-14.5); WHITE BLOOD COUNT 11.5 K/uL (4.8-10.8)
[2017-05-12] MEDS: Insulin Regular 100 units/ml SC SCH ×4 (07:19→21:38)
[2017-05-12 07:32] LABS: ALB/GLOB RATIO 1.1 (1.0-2.1); ALKALINE PHOSPHATASE 31 U/L (38-126); ALT/SGPT 28 U/L (21-72); AST/SGOT 27 U/L (17-59); BILIRUBIN,TOTAL 0.3 mg/dl (0.2-1.3); BLOOD UREA NITROGEN 40 mg/dl (9-20); CALCIUM 9.3 mg/dL (8.4-10.2); CARBON DIOXIDE 29 mmol/L (22-30); CHLORIDE 103 mmol/L (98-107); GFR AFRICAN-AMERICAN > 60; GLUCOSE,RANDOM 79 mg/dL (75-110); SODIUM 141 mmol/l (132-148); TOTAL PROTEIN 6.3 G/DL (6.3-8.2)
[2017-05-12] MEDS: GlipiZIDE 5 mg SR Tab PO SCH (08:44)
[2017-05-12] MEDS: Enoxaparin 40 mg Syringe SC SCH (08:45)
[2017-05-12] MEDS: Ciprofloxacin 400mg/200ml D5W 400 MG/200 ML BAG IVPB SCH ×2 (08:46→20:09)
[2017-05-12] MEDS: Piperacillin/Tazobact 3.375 GM in Sodium Chloride 0.9% 100 ML IVPB SCH (08:51)
[2017-05-12] MEDS: Lactobacillus Acidophilus 500 MU Cap PO SCH ×2 (08:51→17:36)
[2017-05-12] MEDS: MethylPREDNISolone 40 mg Vial IVP SCH (08:51)
--- NOTE | 2017-05-12 09:13 | CP.PCM.PN ---
Subjective - Date & Time of Evaluation Date of Evaluation: 05/12/17 Time of Evaluation: 09:12 - Subjective Subjective: 66 YO Male admitted for COPD exacerbation and pseudomonas bacteremia. On IV abx D 02/25 S: no acute overnight events. Pt states that his breathing has improved. He continues to have loose stool, but are more formed than the last few days. Denies chest pain, dyspnea, palpatations, n/v/d/c and remains afebrile. Objective - Vital Signs/Intake and Output Vital Signs (last 24 hours): Temp Pulse Resp BP Pulse Ox 98.3 F 66 19 107/45 L 96 05/12/17 08:00 05/12/17 08:00 05/12/17 08:00 05/12/17 08:44 05/12/17 08:00 Intake and Output: 05/12/17 05/12/17 06:59 18:59 Intake Total 540 Balance 540 - Medications Medications: Current Medications Acetaminophen (Tylenol 325mg Tab) 650 mg PO Q6 PRN PRN Reason: chest pain or fever >100.4 Last Admin: 05/04/17 21:21 Dose: 650 mg Albuterol/Ipratropium (Duoneb 3 Mg/0.5 Mg (3 Ml) Ud) 3 ml INH RQ4 PRN PRN Reason: Shortness of Breath Last Admin: 05/11/17 10:18 Dose: 3 ml Dextrose (Dextrose 50% Inj) 0 ml IV STAT PRN; Protocol PRN Reason: Hyglycemia Protocol Dextrose (Glutose 15) 0 gm PO ONCE PRN; Protocol PRN Reason: Hypoglycemia Protocol Emollient Ointment (Vaseline Oint) 1 pkt TOP BID PRN PRN Reason: Dry skin Enoxaparin Sodium (Lovenox) 40 mg SC DAILY [facility] PRN Reason: Protocol Last Admin: 05/12/17 08:45 Dose: 40 mg Glipizide (Glucotrol Xl) 5 mg PO BRK [facility] Last Admin: 05/12/17 08:44 Dose: 5 mg Glucagon (Glucagen Diagnostic Kit) 0 mg IM STAT PRN; Protocol PRN Reason: Hypoglycemia Protocol Ciprofloxacin (Cipro 400mg/200ml Dsw) 400 mg in 200 mls @ 200 mls/hr IVPB Q12 [facility] PRN Reason: Protocol Last Admin: 05/12/17 08:46 Dose: 200 mls/hr Piperacillin Sod/Tazobactam (Sod 3.375 gm/ Sodium Chloride) 100 mls @ 100 mls/ hr IVPB Q12 [facility] PRN Reason: Protocol Last Admin: 05/12/17 08:51 Dose: 100 mls/hr Insulin Human Regular (Humulin R) 0 units SC ACHS [facility] PRN Reason: Protocol Last Admin: 05/12/17 07:19 Dose: Not Given Lactic Acid (Lac-Hydrin 12% Lotion (225 G)) 1 applic TOP TID [facility] Last Admin: 05/12/17 08:45 Dose: 1 applic Lactobacillus Acidophilus (Bacid Acidophilus) 1 cap PO BID [facility] Last Admin: 05/12/17 08:51 Dose: 1 cap Lisinopril (Zestril) 10 mg PO DAILY [facility] Last Admin: 05/12/17 08:44 Dose: Not Given Methylprednisolone (Solu-Medrol) 30 mg IVP DAILY [facility] Last Admin: 05/12/17 08:51 Dose: 30 mg Triamcinolone Acetonide (Kenalog 0.1% Oint) 0 appl TOP BID [facility] Last Admin: 05/12/17 08:45 Dose: 1 appl - Labs Labs: 05/12/17 06:00 05/12/17 06:00 PT 12.3 Seconds (9.8-13.1) 05/11/17 06:00 INR 1.1 (0.9-1.2) 05/11/17 06:00 APTT 26.0 Seconds (25.6-37.1) 05/11/17 06:00 - Constitutional Appears: Well, Older Than Stated Age - Head Exam Head Exam: ATRAUMATIC, NORMAL INSPECTION - Eye Exam Eye Exam: EOMI, Normal appearance - ENT Exam ENT Exam: Mucous Membranes Moist - Neck Exam Neck Exam: Full ROM - Respiratory Exam Respiratory Exam: Clear to Ausculation Bilateral, Wheezes (audiable wheezing b/l , improved from previous exam ), NORMAL BREATHING PATTERN. absent: Respiratory Distress - Cardiovascular Exam Cardiovascular Exam: REGULAR RHYTHM, +S1, +S2 - GI/Abdominal Exam GI & Abdominal Exam: Soft, Normal Bowel Sounds. absent: Tenderness - Extremities Exam Extremities Exam: Full ROM. absent: Pedal Edema, Tenderness Additional comments: extensive psoriasis with dry skin and flaking in the upper and lower extremities. - Back Exam Back Exam: Full ROM, NORMAL INSPECTION. absent: CVA tenderness (L), CVA tenderness (R) - Neurological Exam Neurological Exam: Alert, Awake, CN II-XII Intact, Oriented x3 - Psychiatric Exam Psychiatric exam: Normal Affect, Normal Mood - Skin Skin Exam: Dry, Intact, Normal Color, Warm Assessment and Plan - Assessment and Plan (Free Text) Assessment: 66 y/o male with PMHx of COPD, HTN, Asthma, PE (s/p IVC filter), psoriasis admitted for Psesudomonal bacteremia with secondary COPD exacerbation. IV Abx day 02/25. 1) Pseudomonas Bacteremia, afebrile -ABx therapy D#8 -blood culture positive: Pseudomonas Aerginosa -f/u blood culture negative -Urine cultures negative -Cardiology consult: no vegetations- no need for DAVID. -ID consult: will cont abx cipro/zosyn. Will need 10 days therapy. -s/p PICC line insertion -repeat blood culture ordered, neg 48 hrs 2) Leukocytosis, afebrile -WBC 11.9-->12.9-->11.4 downtrending -likely secondary to demargination from COPD steroid therapy -will continue to monitor CBC and vitals -currently on IV Abx 3) COPD exacerbation, improving -O2 98-100% on RA -continue 2L O2 via NC prn -Duoneb Q4h lovely -taper steriod, Solumedrol 20 mg daily -remains afebrile -sputum culture: + e. coli -pulmonary consult: pt is optimized and continue current management. Recs include out-pt PFTs. 4) Hx of PE and tachycardia -normal cardiac rate today -IVC filter in place -Tachycardia likely 2/2 to albuterol treatment -c/w monitoring vitals 5) NIDDM2, controlled -Last HgbA1C was 6.7 % on 12/19/16 -d/dimitri metformin 500mg BID -continue glipizide SR 5mg -Insulin sliding scale low dose protocol -Accucheck ACHS 6) Diarrhea, improving -likely due to metformin -d/dimitri metformin -c. diff negative -continue probiotic -will continue to monitor 7) HTN, controlled -d/dimitri metropolol 12.5mg q12 -d/dimitri Hctz -continue lisinopril 8) Psoriasis -triamcinolone 0.1% -ammonium lactate 12 % TOP TID 9) Lung Nodule -CT chest 02/13 Paraeptal bullous emphysema. 3 mm righ lower lobe nodule for which 1 year f/u is recommended. -[address] chest follow up as outpatient 10) Prophylaxis -s/p IVC filter -continue Lovenox SC QD
[2017-05-12] MEDS: Albuterol-Ipratrop 3 mg / 0.5 (3 ml) UD INH PRN ×2 (09:18→20:57)
[2017-05-12] MEDS: Piperacill/Tazo 3.375gm in Dex 3.375 GM/50 ML BAG IVPB SCH (21:32)
--- NOTE | 2017-05-13 08:06 | CP.PCM.PN ---
Subjective - Date & Time of Evaluation Date of Evaluation: 05/13/17 Time of Evaluation: 08:03 - Subjective Subjective: 66 YO Male admitted for COPD exacerbation and pseudomonas bacteremia. On IV abx D 03/28 S: no acute overnight events. Pt is seen breathing comfortably in room air. Last BM was this morning, well formed. Denies chest pain, dyspnea, palpatations , n/v/d/c and remains afebrile. Objective - Vital Signs/Intake and Output Vital Signs (last 24 hours): Temp Pulse Resp BP Pulse Ox 97.9 F 69 18 117/61 96 05/13/17 00:00 05/13/17 00:00 05/13/17 00:00 05/13/17 00:00 05/13/17 00:00 - Medications Medications: Current Medications Acetaminophen (Tylenol 325mg Tab) 650 mg PO Q6 PRN PRN Reason: chest pain or fever >100.4 Last Admin: 05/12/17 20:17 Dose: 650 mg Albuterol/Ipratropium (Duoneb 3 Mg/0.5 Mg (3 Ml) Ud) 3 ml INH RQ4 PRN PRN Reason: Shortness of Breath Last Admin: 05/12/17 20:57 Dose: 3 ml Dextrose (Dextrose 50% Inj) 0 ml IV STAT PRN; Protocol PRN Reason: Hyglycemia Protocol Dextrose (Glutose 15) 0 gm PO ONCE PRN; Protocol PRN Reason: Hypoglycemia Protocol Emollient Ointment (Vaseline Oint) 1 pkt TOP BID PRN PRN Reason: Dry skin Enoxaparin Sodium (Lovenox) 40 mg SC DAILY [facility] PRN Reason: Protocol Last Admin: 05/12/17 08:45 Dose: 40 mg Glipizide (Glucotrol Xl) 5 mg PO BRK [facility] Last Admin: 05/12/17 08:44 Dose: 5 mg Glucagon (Glucagen Diagnostic Kit) 0 mg IM STAT PRN; Protocol PRN Reason: Hypoglycemia Protocol Ciprofloxacin (Cipro 400mg/200ml Dsw) 400 mg in 200 mls @ 200 mls/hr IVPB Q12 [facility] PRN Reason: Protocol Last Admin: 05/12/17 20:09 Dose: 200 mls/hr Piperacillin Sod/Tazobactam Sod (Zosyn 3.375 Gm Iv Premix) 3.375 gm in 50 mls @ 50 mls/hr IVPB Q12 [facility] PRN Reason: Protocol Last Admin: 05/12/17 21:32 Dose: 50 mls/hr Insulin Human Regular (Humulin R) 0 units SC ACHS [facility] PRN Reason: Protocol Last Admin: 05/12/17 21:38 Dose: Not Given Lactic Acid (Lac-Hydrin 12% Lotion (225 G)) 1 applic TOP TID [facility] Last Admin: 05/12/17 17:39 Dose: 1 applic Lactobacillus Acidophilus (Bacid Acidophilus) 1 cap PO BID [facility] Last Admin: 05/12/17 17:36 Dose: Not Given Lisinopril (Zestril) 10 mg PO DAILY [facility] Last Admin: 05/12/17 08:44 Dose: Not Given Methylprednisolone (Solu-Medrol) 20 mg IVP DAILY [facility] Triamcinolone Acetonide (Kenalog 0.1% Oint) 0 appl TOP BID [facility] Last Admin: 05/12/17 17:40 Dose: 1 appl - Labs Labs: 05/12/17 06:00 05/12/17 06:00 PT 12.3 Seconds (9.8-13.1) 05/11/17 06:00 INR 1.1 (0.9-1.2) 05/11/17 06:00 APTT 26.0 Seconds (25.6-37.1) 05/11/17 06:00 - Constitutional Appears: Well, Older Than Stated Age - Head Exam Head Exam: ATRAUMATIC, NORMAL INSPECTION - Eye Exam Eye Exam: EOMI, Normal appearance - ENT Exam ENT Exam: Mucous Membranes Moist - Neck Exam Neck Exam: Full ROM. absent: Lymphadenopathy - Respiratory Exam Respiratory Exam: Clear to Ausculation Bilateral, Wheezes (b/l wheezing ), NORMAL BREATHING PATTERN - Cardiovascular Exam Cardiovascular Exam: REGULAR RHYTHM, +S1, +S2 - GI/Abdominal Exam GI & Abdominal Exam: Soft, Normal Bowel Sounds. absent: Distended, Guarding, Tenderness - Extremities Exam Extremities Exam: Full ROM. absent: Pedal Edema Additional comments: extensive psoriasis in skin exposed areas, skin intact. - Back Exam Back Exam: NORMAL INSPECTION. absent: CVA tenderness (L), CVA tenderness (R) - Neurological Exam Neurological Exam: Alert, Awake, Oriented x3 - Psychiatric Exam Psychiatric exam: Normal Affect, Normal Mood - Skin Skin Exam: Dry, Intact, Warm Assessment and Plan - Assessment and Plan (Free Text) Assessment: 66 y/o male with PMHx of COPD, HTN, Asthma, PE (s/p IVC filter), psoriasis admitted for Psesudomonal bacteremia with secondary COPD exacerbation. IV Abx day 03/28. 1) Pseudomonas Bacteremia, afebrile -ABx therapy D#9 -blood culture positive: Pseudomonas Aerginosa -f/u blood culture negative -Urine cultures negative -Cardiology consult: no vegetations- no need for DAVID. -ID consult: will cont abx cipro/zosyn. Will need 10 days therapy. -s/p PICC line insertion -repeat blood culture ordered, neg 72 hrs 2) Leukocytosis, afebrile -WBC 11.9-->12.9-->11.4 downtrending -likely secondary to demargination from COPD steroid therapy -will continue to monitor CBC and vitals -currently on IV Abx 3) COPD exacerbation, resolved -O2 98-100% on RA -continue 2L O2 via NC prn -Duoneb Q4h lovely -taper steroid, prednisone PO daily -remains afebrile -sputum culture: + e. coli -pulmonary consult: pt is optimized and continue current management. Recs include out-pt PFTs. 4) Hx of PE and tachycardia -normal cardiac rate today -IVC filter in place -Tachycardia likely 2/2 to albuterol treatment -c/w monitoring vitals 5) NIDDM2, controlled -Last HgbA1C was 6.7 % on 12/19/16 -d/dimitri metformin 500mg BID -Has eps of hypoglycemia, d/dimitri glipizide SR 5mg -Insulin sliding scale low dose protocol -Accucheck ACHS 6) Diarrhea, resolved -likely due to metformin -d/dimitri metformin -c. diff negative -continue probiotic -will continue to monitor 7) HTN, controlled -d/dimitri metropolol 12.5mg q12 -d/dimitri Hctz -continue lisinopril 8) Psoriasis -triamcinolone 0.1% -ammonium lactate 12 % TOP TID 9) Lung Nodule -CT chest 02/13 Paraeptal bullous emphysema. 3 mm righ lower lobe nodule for which 1 year f/u is recommended. -[address] chest follow up as outpatient 10) Prophylaxis -s/p IVC filter -continue Lovenox SC QD
[2017-05-13] MEDS: Insulin Regular 100 units/ml SC SCH ×4 (08:33→23:01)
[2017-05-13] MEDS ORDERED: methylPREDNISolone 20 MG in Sodium Chloride 0.9% 50 ML IVPB SCH (09:00)
[2017-05-13] MEDS ORDERED: MethylPREDNISolone 40 mg Vial IVP SCH (09:00)
[2017-05-13] MEDS: Lactobacillus Acidophilus 500 MU Cap PO SCH ×2 (09:00→17:23)
[2017-05-13] MEDS: Piperacill/Tazo 3.375gm in Dex 3.375 GM/50 ML BAG IVPB SCH ×2 (09:00→21:27)
[2017-05-13] MEDS: GlipiZIDE 5 mg SR Tab PO SCH (09:39)
[2017-05-13] MEDS: Enoxaparin 40 mg Syringe SC SCH (09:41)
[2017-05-13] MEDS: Ciprofloxacin 400mg/200ml D5W 400 MG/200 ML BAG IVPB SCH ×2 (09:45→22:58)
[2017-05-13] MEDS: Albuterol-Ipratrop 3 mg / 0.5 (3 ml) UD INH PRN (10:43)
--- NOTE | 2017-05-14 08:09 | CP.PCM.PN ---
<Lizett Hernandez - Last Filed: 05/14/17 12:54> Subjective - Date & Time of Evaluation Date of Evaluation: 05/14/17 Time of Evaluation: 08:07 - Subjective Subjective: 67 YO male admitted for COPD exacerbation and Pseudomonus bacterimia, abx D10/10 S: No acute overnight events. Breathing comfortably in RA. Pt states that he is feeling well this morning. Spoke to pt about taking his meds once he is discharged and to follow up in clinic. Denies chest pain, dyspnea, palpitations , n/v/d/c and remains afebrile. Objective - Vital Signs/Intake and Output Vital Signs (last 24 hours): Temp Pulse Resp BP Pulse Ox 97.9 F 73 18 123/67 98 05/14/17 00:20 05/14/17 00:20 05/14/17 00:20 05/14/17 00:20 05/14/17 00:20 - Medications Medications: Current Medications Acetaminophen (Tylenol 325mg Tab) 650 mg PO Q6 PRN PRN Reason: chest pain or fever >100.4 Last Admin: 05/12/17 20:17 Dose: 650 mg Albuterol/Ipratropium (Duoneb 3 Mg/0.5 Mg (3 Ml) Ud) 3 ml INH RQ4 PRN PRN Reason: Shortness of Breath Last Admin: 05/13/17 10:43 Dose: 3 ml Dextrose (Dextrose 50% Inj) 0 ml IV STAT PRN; Protocol PRN Reason: Hyglycemia Protocol Dextrose (Glutose 15) 0 gm PO ONCE PRN; Protocol PRN Reason: Hypoglycemia Protocol Emollient Ointment (Vaseline Oint) 1 pkt TOP BID PRN PRN Reason: Dry skin Enoxaparin Sodium (Lovenox) 40 mg SC DAILY [facility] PRN Reason: Protocol Last Admin: 05/13/17 09:41 Dose: 40 mg Glucagon (Glucagen Diagnostic Kit) 0 mg IM STAT PRN; Protocol PRN Reason: Hypoglycemia Protocol Ciprofloxacin (Cipro 400mg/200ml Dsw) 400 mg in 200 mls @ 200 mls/hr IVPB Q12 [facility] PRN Reason: Protocol Last Admin: 05/13/17 22:58 Dose: 200 mls/hr Piperacillin Sod/Tazobactam Sod (Zosyn 3.375 Gm Iv Premix) 3.375 gm in 50 mls @ 50 mls/hr IVPB Q12 [facility] PRN Reason: Protocol Last Admin: 05/13/17 21:27 Dose: 50 mls/hr Insulin Human Regular (Humulin R) 0 units SC ACHS [facility] PRN Reason: Protocol Last Admin: 05/13/17 23:01 Dose: Not Given Lactic Acid (Lac-Hydrin 12% Lotion (225 G)) 1 applic TOP TID [facility] Last Admin: 05/13/17 17:27 Dose: 1 applic Lactobacillus Acidophilus (Bacid Acidophilus) 1 cap PO BID [facility] Last Admin: 05/13/17 17:23 Dose: 1 cap Lisinopril (Zestril) 10 mg PO DAILY [facility] Last Admin: 05/13/17 09:44 Dose: 10 mg Prednisone (Prednisone Tab) 10 mg PO DAILY [facility] Triamcinolone Acetonide (Kenalog 0.1% Oint) 0 appl TOP BID [facility] Last Admin: 05/13/17 17:26 Dose: 1 appl - Labs Labs: 05/12/17 06:00 05/12/17 06:00 PT 12.3 Seconds (9.8-13.1) 05/11/17 06:00 INR 1.1 (0.9-1.2) 05/11/17 06:00 APTT 26.0 Seconds (25.6-37.1) 05/11/17 06:00 - Constitutional Appears: Well, No Acute Distress - Head Exam Head Exam: ATRAUMATIC, NORMAL INSPECTION - Eye Exam Eye Exam: EOMI, Normal appearance - ENT Exam ENT Exam: Mucous Membranes Moist, Normal Exam - Neck Exam Neck Exam: Full ROM - Respiratory Exam Respiratory Exam: Wheezes (wheezing b/l), NORMAL BREATHING PATTERN - Cardiovascular Exam Cardiovascular Exam: REGULAR RHYTHM, +S1, +S2 - GI/Abdominal Exam GI & Abdominal Exam: Soft, Normal Bowel Sounds. absent: Tenderness - Extremities Exam Extremities Exam: Full ROM Additional comments: extensive psoriasis b/l in the upper and lower extremities. Skin intact - Back Exam Back Exam: NORMAL INSPECTION. absent: CVA tenderness (L), CVA tenderness (R) - Neurological Exam Neurological Exam: Alert, Awake, CN II-XII Intact, Oriented x3 - Psychiatric Exam Psychiatric exam: Normal Affect, Normal Mood - Skin Skin Exam: Dry, Intact, Warm Assessment and Plan - Assessment and Plan (Free Text) Assessment: 66 y/o male with PMHx of COPD, HTN, Asthma, PE (s/p IVC filter), psoriasis admitted for Psesudomonal bacteremia with secondary COPD exacerbation. IV Abx day 04/27. 1) Pseudomonas Bacteremia, afebrile -ABx therapy D#10 -blood culture positive: Pseudomonas Aerginosa -repeat blood culture ordered, neg 4 days -Urine cultures negative -sputum culture +E. coli -Cardiology consult: no vegetations- no need for DAVID. -ID consult: will cont abx cipro/zosyn. Will need 10 days therapy. -per ID, Pt to be d/c with 7 more days of cipro. -s/p PICC line insertion 2) Leukocytosis, afebrile -WBC 11.9-->12.9-->11.4 downtrending -likely secondary to demargination from COPD steroid therapy -will continue to monitor CBC and vitals -currently on IV Abx 3) COPD exacerbation, resolved -O2 96-100% on RA -continue 2L O2 via NC prn -Duoneb Q4h lovely -taper steroid, prednisone PO daily -remains afebrile -sputum culture: + e. coli -pulmonary consult: pt is optimized and continue current management. Recs include out-pt PFTs. 4) Hx of PE and tachycardia -normal cardiac rate today -IVC filter in place -Tachycardia likely 2/2 to albuterol treatment -continue monitoring vitals 5) NIDDM2, controlled -Last HgbA1C was 6.7 % on 12/19/16 -d/dimitri metformin 500mg BID -Has episodes of hypoglycemia, d/dimitri glipizide SR 5mg -Insulin sliding scale low dose protocol -Accucheck ACHS 6) HTN, controlled -d/dimitri metropolol 12.5mg q12 -d/dimitri Hctz -continue lisinopril 7) Psoriasis -triamcinolone 0.1% -ammonium lactate 12 % TOP TID 8) Lung Nodule -CT chest 02/13 Paraeptal bullous emphysema. 3 mm righ lower lobe nodule for which 1 year f/u is recommended. -[address] chest follow up as outpatient 9) Prophylaxis -s/p IVC filter -continue Lovenox SC QD <Jovan,Eloina - Last Filed: 05/14/17 13:37> Objective - Vital Signs/Intake and Output Vital Signs (last 24 hours): Temp Pulse Resp BP Pulse Ox 97.9 F 73 20 115/61 98 05/14/17 08:41 05/14/17 09:55 05/14/17 08:41 05/14/17 09:55 05/14/17 08:41 - Medications Medications: Current Medications Acetaminophen (Tylenol 325mg Tab) 650 mg PO Q6 PRN PRN Reason: chest pain or fever >100.4 Last Admin: 05/12/17 20:17 Dose: 650 mg Albuterol/Ipratropium (Duoneb 3 Mg/0.5 Mg (3 Ml) Ud) 3 ml INH RQ4 PRN PRN Reason: Shortness of Breath Last Admin: 05/13/17 10:43 Dose: 3 ml Dextrose (Dextrose 50% Inj) 0 ml IV STAT PRN; Protocol PRN Reason: Hyglycemia Protocol Dextrose (Glutose 15) 0 gm PO ONCE PRN; Protocol PRN Reason: Hypoglycemia Protocol Emollient Ointment (Vaseline Oint) 1 pkt TOP BID PRN PRN Reason: Dry skin Enoxaparin Sodium (Lovenox) 40 mg SC DAILY [facility] PRN Reason: Protocol Last Admin: 05/14/17 09:54 Dose: 40 mg Glucagon (Glucagen Diagnostic Kit) 0 mg IM STAT PRN; Protocol PRN Reason: Hypoglycemia Protocol Ciprofloxacin (Cipro 400mg/200ml Dsw) 400 mg in 200 mls @ 200 mls/hr IVPB Q12 [facility] PRN Reason: Protocol Last Admin: 05/14/17 09:50 Dose: 200 mls/hr Piperacillin Sod/Tazobactam Sod (Zosyn 3.375 Gm Iv Premix) 3.375 gm in 50 mls @ 50 mls/hr IVPB Q12 [facility] PRN Reason: Protocol Last Admin: 05/14/17 09:55 Dose: 50 mls/hr Insulin Human Regular (Humulin R) 0 units SC ACHS [facility] PRN Reason: Protocol Last Admin: 05/14/17 08:24 Dose: Not Given Lactic Acid (Lac-Hydrin 12% Lotion (225 G)) 1 applic TOP TID [facility] Last Admin: 05/14/17 09:51 Dose: 1 applic Lactobacillus Acidophilus (Bacid Acidophilus) 1 cap PO BID [facility] Last Admin: 05/14/17 09:49 Dose: 1 cap Lisinopril (Zestril) 10 mg PO DAILY [facility] Last Admin: 05/14/17 09:55 Dose: 10 mg Prednisone (Prednisone Tab) 10 mg PO DAILY [facility] Last Admin: 05/14/17 09:54 Dose: 10 mg Triamcinolone Acetonide (Kenalog 0.1% Oint) 0 appl TOP BID [facility] Last Admin: 05/14/17 09:51 Dose: 1 appl - Labs Labs: 05/12/17 06:00 05/12/17 06:00 PT 12.3 Seconds (9.8-13.1) 05/11/17 06:00 INR 1.1 (0.9-1.2) 05/11/17 06:00 APTT 26.0 Seconds (25.6-37.1) 05/11/17 06:00 Attending/Attestation - Attestation I have personally seen and examined this patient.: Yes I have fully participated in the care of the patient.: Yes I have reviewed all pertinent clinical information, including history, physical exam and plan: Yes Notes (Text): 05/14/17 13:37 I have seen and examined this patient. Case discussed with resident. Agree with findings and plan.
[2017-05-14] MEDS: Insulin Regular 100 units/ml SC SCH ×4 (08:24→22:23)
[2017-05-14] MEDS: Lactobacillus Acidophilus 500 MU Cap PO SCH ×2 (09:49→17:22)
[2017-05-14] MEDS: Ciprofloxacin 400mg/200ml D5W 400 MG/200 ML BAG IVPB SCH ×2 (09:50→22:30)
[2017-05-14] MEDS: Enoxaparin 40 mg Syringe SC SCH (09:54)
[2017-05-14] MEDS: Piperacill/Tazo 3.375gm in Dex 3.375 GM/50 ML BAG IVPB SCH ×2 (09:55→21:28)
[2017-05-14 15:56] LABS: ABG ALLEN TEST YES; ARTERIAL BLOOD GAS HCO3 23.5 mmol/L (21-28); ARTERIAL BLOOD GAS O2 CAPACITY 18.5 mL/dL (16-24); ARTERIAL BLOOD GAS O2 CONTENT 18.2 ML/dL (15-23); ARTERIAL BLOOD GAS PH 7.38 (7.35-7.45); ARTERIAL BLOOD GAS PO2 80 mm/Hg (80-100); ARTERIAL BLOOD HGB O2 SAT 95.1 % (95.0-98.0); CARBOXYHEMOGLOBIN 2.2 % (0.5-1.5); HHB 1.4 % (0.0-5.0); METHEMOGLOBIN 1.4 % (0.0-3.0)
[2017-05-15] MEDS: Insulin Regular 100 units/ml SC SCH ×4 (06:55→22:00)
[2017-05-15] MEDS: Ciprofloxacin 400mg/200ml D5W 400 MG/200 ML BAG IVPB SCH ×2 (09:55→20:37)
[2017-05-15] MEDS: Lactobacillus Acidophilus 500 MU Cap PO SCH ×2 (09:55→18:06)
[2017-05-15] MEDS: Enoxaparin 40 mg Syringe SC SCH (09:56)
[2017-05-15] MEDS: Piperacill/Tazo 3.375gm in Dex 3.375 GM/50 ML BAG IVPB SCH ×2 (10:02→20:36)
--- NOTE | 2017-05-15 12:16 | CP.PCM.PN ---
<Jennifer,Vanessa - Last Filed: 05/15/17 12:24> Subjective - Date & Time of Evaluation Date of Evaluation: 05/15/17 Time of Evaluation: 09:30 - Subjective Subjective: Pt was seen and examined at bedside, laying in bed reports feeling a little tired, but otherwise breathing continues to improve, no sob, chest pain, dizziness, abdominal pain has resolved and no diarrhea. nurses notes reviewed, no acute event overnight Objective - Vital Signs/Intake and Output Vital Signs (last 24 hours): Temp Pulse Resp BP Pulse Ox 97.5 F L 104 H 18 100/55 L 100 05/15/17 07:25 05/15/17 09:59 05/15/17 07:25 05/15/17 09:59 05/15/17 07:25 - Medications Medications: Current Medications Acetaminophen (Tylenol 325mg Tab) 650 mg PO Q6 PRN PRN Reason: chest pain or fever >100.4 Last Admin: 05/12/17 20:17 Dose: 650 mg Albuterol/Ipratropium (Duoneb 3 Mg/0.5 Mg (3 Ml) Ud) 3 ml INH RQ4 PRN PRN Reason: Shortness of Breath Last Admin: 05/13/17 10:43 Dose: 3 ml Dextrose (Dextrose 50% Inj) 0 ml IV STAT PRN; Protocol PRN Reason: Hyglycemia Protocol Dextrose (Glutose 15) 0 gm PO ONCE PRN; Protocol PRN Reason: Hypoglycemia Protocol Emollient Ointment (Vaseline Oint) 1 pkt TOP BID PRN PRN Reason: Dry skin Enoxaparin Sodium (Lovenox) 40 mg SC DAILY [facility] PRN Reason: Protocol Last Admin: 05/15/17 09:56 Dose: 40 mg Glucagon (Glucagen Diagnostic Kit) 0 mg IM STAT PRN; Protocol PRN Reason: Hypoglycemia Protocol Ciprofloxacin (Cipro 400mg/200ml Dsw) 400 mg in 200 mls @ 200 mls/hr IVPB Q12 [facility] PRN Reason: Protocol Last Admin: 05/15/17 09:55 Dose: 200 mls/hr Piperacillin Sod/Tazobactam Sod (Zosyn 3.375 Gm Iv Premix) 3.375 gm in 50 mls @ 50 mls/hr IVPB Q12 [facility] PRN Reason: Protocol Last Admin: 05/15/17 10:02 Dose: 50 mls/hr Insulin Human Regular (Humulin R) 0 units SC ACHS [facility] PRN Reason: Protocol Last Admin: 05/15/17 06:55 Dose: Not Given Lactic Acid (Lac-Hydrin 12% Lotion (225 G)) 1 applic TOP TID [facility] Last Admin: 05/15/17 09:58 Dose: 1 applic Lactobacillus Acidophilus (Bacid Acidophilus) 1 cap PO BID [facility] Last Admin: 05/15/17 09:55 Dose: 1 cap Lisinopril (Zestril) 10 mg PO DAILY [facility] Last Admin: 05/15/17 09:59 Dose: Not Given Prednisone (Prednisone Tab) 10 mg PO DAILY [facility] Last Admin: 05/15/17 09:56 Dose: 10 mg Triamcinolone Acetonide (Kenalog 0.1% Oint) 0 appl TOP BID [facility] Last Admin: 05/15/17 09:58 Dose: 1 appl - Labs Labs: 05/12/17 06:00 05/12/17 06:00 PT 12.3 Seconds (9.8-13.1) 05/11/17 06:00 INR 1.1 (0.9-1.2) 05/11/17 06:00 APTT 26.0 Seconds (25.6-37.1) 05/11/17 06:00 - Constitutional Appears: Non-toxic, No Acute Distress - Eye Exam Eye Exam: Normal appearance - ENT Exam ENT Exam: Mucous Membranes Moist - Respiratory Exam Respiratory Exam: Wheezes, NORMAL BREATHING PATTERN - Cardiovascular Exam Cardiovascular Exam: REGULAR RHYTHM, +S1, +S2 - GI/Abdominal Exam GI & Abdominal Exam: Soft, Normal Bowel Sounds. absent: Tenderness - Extremities Exam Extremities Exam: absent: Calf Tenderness, Pedal Edema - Neurological Exam Neurological Exam: Alert, Awake, Oriented x3 Assessment and Plan - Assessment and Plan (Free Text) Assessment: 66 y/o male with PMHx of COPD, HTN, Asthma, PE (s/p IVC filter), psoriasis admitted for Psesudomonal bacteremia and COPD exacerbation. 1) Pseudomonas Bacteremia, afebrile -will given one more dose of IV antibiotic today -blood culture positive: Pseudomonas Aerginosa -repeat blood culture ordered, neg 4 days -Urine cultures negative -sputum culture +E. coli -Cardiology consult: no vegetations- no need for DAVID. -per ID, Pt to be d/c with 7 more days of cipro. 2) Leukocytosis, afebrile -WBC 11.9-->12.9-->11.4 downtrending, repeat CBC ordered for the AM -likely secondary to demargination from COPD steroid therapy -will continue to monitor CBC and vitals -currently on IV Abx 3) COPD exacerbation, resolved -O2 96-100% on RA -continue 2L O2 via NC prn -Duoneb Q4h lovely -continue with 10 prednisone PO daily -remains afebrile -sputum culture: + e. coli -pulmonary consult: pt is optimized and continue current management. Recs include out-pt PFTs. 4) Hx of PE and tachycardia -normal cardiac rate most of the time, episodes of tachycardia -IVC filter in place -Tachycardia likely due to albuterol treatment -continue monitoring vitals 5) NIDDM2, controlled -[facility] -Last HgbA1C was 6.7 % on 12/19/16 -d/dimitri metformin 500mg BID -Has episodes of hypoglycemia, d/dimitri glipizide SR 5mg -Insulin sliding scale low dose protocol -Pt will be discharged home with glucotrol Xl 2.5 daily 6) HTN, controlled -d/dimitri metropolol 12.5mg q12 -d/dimitri Hctz -continue lisinopril 7) Psoriasis -triamcinolone 0.1% -ammonium lactate 12 % TOP TID 8) Lung Nodule -CT chest 02/13/17 Paraeptal bullous emphysema. 3 mm righ lower lobe nodule for which 1 year f/u is recommended. -[address] chest follow up as outpatient 9) Prophylaxis -s/p IVC filter -continue Lovenox SC QD Discharge Disposition: Pt's lung exam appears to have more wheezing compared to yesterday, will observe for today and discharge in the AM if pt remain stable, <Eloina Aldana - Last Filed: 05/16/17 09:11> Objective - Vital Signs/Intake and Output Vital Signs (last 24 hours): Temp Pulse Resp BP Pulse Ox 97.9 F 64 18 110/61 99 05/16/17 07:36 05/16/17 07:36 05/16/17 07:36 05/16/17 07:36 05/16/17 07:36 - Medications Medications: Current Medications Acetaminophen (Tylenol 325mg Tab) 650 mg PO Q6 PRN PRN Reason: chest pain or fever >100.4 Last Admin: 05/12/17 20:17 Dose: 650 mg Albuterol/Ipratropium (Duoneb 3 Mg/0.5 Mg (3 Ml) Ud) 3 ml INH RQ4 PRN PRN Reason: Shortness of Breath Last Admin: 05/13/17 10:43 Dose: 3 ml Dextrose (Dextrose 50% Inj) 0 ml IV STAT PRN; Protocol PRN Reason: Hyglycemia Protocol Dextrose (Glutose 15) 0 gm PO ONCE PRN; Protocol PRN Reason: Hypoglycemia Protocol Emollient Ointment (Vaseline Oint) 1 pkt TOP BID PRN PRN Reason: Dry skin Enoxaparin Sodium (Lovenox) 40 mg SC DAILY [facility] PRN Reason: Protocol Last Admin: 05/15/17 09:56 Dose: 40 mg Glucagon (Glucagen Diagnostic Kit) 0 mg IM STAT PRN; Protocol PRN Reason: Hypoglycemia Protocol Insulin Human Regular (Humulin R) 0 units SC ACHS [facility] PRN Reason: Protocol Last Admin: 05/16/17 08:01 Dose: Not Given Lactic Acid (Lac-Hydrin 12% Lotion (225 G)) 1 applic TOP TID [facility] Last Admin: 05/15/17 18:07 Dose: 1 applic Lactobacillus Acidophilus (Bacid Acidophilus) 1 cap PO BID [facility] Last Admin: 05/15/17 18:06 Dose: 1 cap Lisinopril (Zestril) 10 mg PO DAILY [facility] Last Admin: 05/15/17 09:59 Dose: Not Given Prednisone (Prednisone Tab) 10 mg PO DAILY [facility] Last Admin: 05/15/17 09:56 Dose: 10 mg Triamcinolone Acetonide (Kenalog 0.1% Oint) 0 appl TOP BID [facility] Last Admin: 05/15/17 18:00 Dose: 1 appl - Labs Labs: 05/16/17 05:30 05/12/17 06:00 PT 12.3 Seconds (9.8-13.1) 05/11/17 06:00 INR 1.1 (0.9-1.2) 05/11/17 06:00 APTT 26.0 Seconds (25.6-37.1) 05/11/17 06:00 Attending/Attestation - Attestation I have personally seen and examined this patient.: Yes I have fully participated in the care of the patient.: Yes I have reviewed all pertinent clinical information, including history, physical exam and plan: Yes
[2017-05-16 06:58] LABS: HEMATOCRIT 38.6 % (35.0-51.0); MEAN CELL VOLUME 84.9 fl (80.0-94.0); MEAN CORPUSCULAR HEMOGLOBIN 27.8 pg (27.0-31.0); MEAN CORPUSCULAR HGB CONC 32.8 g/dL (33.0-37.0); RED CELL DISTRIBUTION WIDTH 16.6 % (11.5-14.5); WHITE BLOOD COUNT 12.6 K/uL (4.8-10.8)
[2017-05-16 07:37] VITALS: RESP 18
[2017-05-16] MEDS: Insulin Regular 100 units/ml SC SCH ×2 (08:01→13:34)
[2017-05-16] MEDS: Enoxaparin 40 mg Syringe SC SCH (09:44)
--- NOTE | 2017-05-16 10:55 | CP.PCM.DIS ---
<Lizett Hernandez - Last Filed: 05/16/17 10:55> Provider - Provider Date of Admission: 05/03/17 15:34 Attending physician: Tennille Tavares MD Primary care physician: NO FAMILY PROVIDER Time Spent in preparation of Discharge (in minutes): 30 Hospital Course - Lab Results Lab Results: Micro Results 05/10/17 05:35 Blood-Venous Blood Culture - Final NO GROWTH AFTER 5 DAYS 05/10/17 05:35 Blood-Venous Gram Stain - Final TEST NOT PERFORMED 05/02/17 12:45 Blood Blood Culture - Final NO GROWTH AFTER 5 DAYS 05/02/17 12:45 Blood Gram Stain - Final TEST NOT PERFORMED 05/04/17 08:40 Urine,Clean Catch Urine Culture - Final No Growth (<1,000 CFU/ML) 05/02/17 11:03 Sputum Gram Stain - Final 05/02/17 11:03 Sputum Sputum Culture - Final Escherichia Coli 05/02/17 12:45 Blood Blood Culture - Final Pseudomonas Aeruginosa 05/02/17 12:45 Blood Gram Stain - Final 05/02/17 14:49 Urine Urine Culture - Final No Growth (<1,000 CFU/ML) Most Recent Lab Values WBC 12.6 K/uL (4.8-10.8) H 05/16/17 05:30 RBC 4.54 Mil/uL (4.40-5.90) 05/16/17 05:30 Hgb 12.6 g/dL (12.0-18.0) 05/16/17 05:30 Hct 38.6 % (35.0-51.0) 05/16/17 05:30 MCV 84.9 fl (80.0-94.0) 05/16/17 05:30 MCH 27.8 pg (27.0-31.0) 05/16/17 05:30 MCHC 32.8 g/dL (33.0-37.0) L 05/16/17 05:30 RDW 16.6 % (11.5-14.5) H 05/16/17 05:30 Plt Count 219 K/uL (130-400) 05/16/17 05:30 MPV 8.6 fl (7.2-11.7) 05/12/17 06:00 Neut % (Auto) 54.4 % (50.0-75.0) 05/12/17 06:00 Lymph % (Auto) 29.8 % (20.0-40.0) 05/12/17 06:00 [place] % (Auto) 14.7 % (0.0-10.0) H 05/12/17 06:00 Eos % (Auto) 0.8 % (0.0-4.0) 05/12/17 06:00 Baso % (Auto) 0.3 % (0.0-2.0) 05/12/17 06:00 Neut # 6.3 K/uL (1.8-7.0) 05/12/17 06:00 Lymph # 3.4 K/uL (1.0-4.3) 05/12/17 06:00 [place] # 1.7 K/uL (0.0-0.8) H 05/12/17 06:00 Eos # 0.1 K/uL (0.0-0.7) 05/12/17 06:00 Baso # 0.0 K/uL (0.0-0.2) 05/12/17 06:00 PT 12.3 Seconds (9.8-13.1) 05/11/17 06:00 INR 1.1 (0.9-1.2) 05/11/17 06:00 APTT 26.0 Seconds (25.6-37.1) 05/11/17 06:00 pCO2 39 mm/Hg (35-45) 05/14/17 14:13 pO2 80 mm/Hg (80-100) 05/14/17 14:13 HCO3 23.5 mmol/L (21-28) 05/14/17 14:13 ABG pH 7.38 (7.35-7.45) 05/14/17 14:13 ABG Total CO2 24.3 mmol/L (22-28) 05/14/17 14:13 ABG O2 Saturation 98.5 % (95-98) H 05/14/17 14:13 ABG O2 Content 18.2 ML/dL (15-23) 05/14/17 14:13 ABG Base Excess -1.8 mmol/L (-2.0-3.0) 05/14/17 14:13 ABG Hemoglobin 13.6 g/dL (11.7-17.4) 05/14/17 14:13 ABG Carboxyhemoglobin 2.2 % (0.5-1.5) H 05/14/17 14:13 POC ABG HHb (Measured) 1.4 % (0.0-5.0) 05/14/17 14:13 ABG Methemoglobin 1.4 % (0.0-3.0) 05/14/17 14:13 ABG O2 Capacity 18.5 mL/dL (16-24) 05/14/17 14:13 Slim Test Yes 05/14/17 14:13 ABG Potassium 3.8 mmol/L (3.6-5.2) 05/02/17 12:19 A-a O2 Difference 21.0 mm/Hg 05/14/17 14:13 Hgb O2 Saturation 95.1 % (95.0-98.0) 05/14/17 14:13 Sodium 135.0 mmol/L (132-148) 05/02/17 12:19 Chloride 105.0 mmol/L (98-107) 05/02/17 12:19 Glucose 102 mg/dL (75-110) 05/02/17 12:19 Lactate 1.0 mmol/L (0.7-2.1) 05/02/17 12:19 FiO2 21.0 % 05/14/17 14:13 Sodium 141 mmol/l (132-148) 05/12/17 06:00 Potassium 4.0 MMOL/L (3.6-5.0) 05/12/17 06:00 Chloride 103 mmol/L (98-107) 05/12/17 06:00 Carbon Dioxide 29 mmol/L (22-30) 05/12/17 06:00 Anion Gap 13 (10-20) 05/12/17 06:00 BUN 40 mg/dl (9-20) H 05/12/17 06:00 Creatinine 1.3 mg/dL (0.8-1.5) 05/12/17 06:00 Est GFR ( Amer) > 60 05/12/17 06:00 Est GFR (Non-Af Amer) 55 05/12/17 06:00 POC Glucose (mg/dL) 92 mg/dL (65-110) 05/16/17 07:17 Random Glucose 79 mg/dL (75-110) 05/12/17 06:00 Calcium 9.3 mg/dL (8.4-10.2) 05/12/17 06:00 Phosphorus 2.8 mg/dl (2.5-4.5) 05/03/17 04:20 Magnesium 1.7 MG/DL (1.6-2.3) 05/03/17 04:20 Total Bilirubin 0.3 mg/dl (0.2-1.3) 05/12/17 06:00 AST 27 U/L (17-59) 05/12/17 06:00 ALT 28 U/L (21-72) 05/12/17 06:00 Alkaline Phosphatase 31 U/L (38-126) L D 05/12/17 06:00 Troponin I < 0.0120 ng/mL (0.00-0.120) 05/03/17 04:20 NT-Pro-B Natriuret Pep 255 pg/ml (0-900) 05/02/17 12:30 Total Protein 6.3 G/DL (6.3-8.2) 05/12/17 06:00 Albumin 3.3 g/dL (3.5-5.0) L 05/12/17 06:00 Globulin 3.0 gm/dL (2.2-3.9) 05/12/17 06:00 Albumin/Globulin Ratio 1.1 (1.0-2.1) 05/12/17 06:00 Arterial Blood Potassium 3.8 mmol/L (3.6-5.2) 05/02/17 12:19 Urine Color Yellow (YELLOW) 05/02/17 14:49 Urine Clarity Clear (Clear) 05/02/17 14:49 Urine pH 5.0 (5.0-8.0) 05/02/17 14:49 Ur Specific [place] 1.016 (1.003-1.030) 05/02/17 14:49 Urine Protein 100 mg/dL (NEGATIVE) 05/02/17 14:49 Urine Glucose (UA) Neg mg/dL (Normal) 05/02/17 14:49 Urine Ketones Trace mg/dL (NEGATIVE) 05/02/17 14:49 Urine Blood Negative (NEGATIVE) 05/02/17 14:49 Urine Nitrate Negative (NEGATIVE) 05/02/17 14:49 Urine Bilirubin Negative (NEGATIVE) 05/02/17 14:49 Urine Urobilinogen 0.2-1.0 mg/dL (0.2-1.0) 05/02/17 14:49 Ur Leukocyte Esterase Neg Chad/uL (Negative) 05/02/17 14:49 Urine RBC (Auto) 3 /hpf (0-3) 05/02/17 14:49 Urine Microscopic WBC 1 /hpf (0-5) 05/02/17 14:49 Hyaline Casts 3-5 /hpf (0-2) H 05/02/17 14:49 C. difficile Ag & Toxin Negative (NEGATIVE) 05/08/17 21:40 - Hospital Course Hospital Course: 66 y/o male with PMHx of COPD, HTN, Asthma, PE (s/p IVC filter), psoriasis was admitted for Psesudomonal bacteremia with secondary COPD exacerbation. Blood culture were positive for pseudomonas, s/p PICC line and IV abx cipro and zosy x 10 days, per ID recs. Pt was afebrile throughout hospital stay, and currently breathing comfortably in RA. Pt d/c home with cipro x 7days, po steroids x 7 days. Follow up in [facility] 05/20/17 @ 9:20 AM. Discharge Exam - Head Exam Head Exam: ATRAUMATIC, NORMAL INSPECTION - Eye Exam Eye Exam: EOMI, Normal appearance - ENT Exam ENT Exam: Mucous Membranes Moist - Neck Exam Neck exam: Full Rom - Respiratory Exam Respiratory Exam: Clear to PA & Lateral, Wheezes (expiratory, improved ), NORMAL BREATHING PATTERN - Cardiovascular Exam Cardiovascular Exam: REGULAR RHYTHM, +S1, +S2 - GI/Abdominal Exam GI & Abdominal Exam: Normal Bowel Sounds, Soft. absent: Distended - Extremities Exam Extremities exam: full ROM, normal inspection Additional comments: extensive psoriasis throughout upper and lower extremities, skin intact. - Back Exam Back exam: NORMAL INSPECTION. absent: CVA tenderness (L), CVA tenderness (R) - Neurological Exam Neurological exam: Alert, CN II-XII Intact, Normal Gait, Oriented x3 - Psychiatric Exam Psychiatric exam: Normal Affect, Normal Mood - Skin Skin Exam: Dry, Intact, Normal Color, Warm Discharge Plan - Discharge Medications Prescriptions: Ciprofloxacin/Ciprofloxa HCl [Ciprofloxacin] 500 mg PO BID 7 Days #14 ter GlipiZIDE SR [Glucotrol XL] 2.5 mg PO DAILY #30 tab predniSONE [predniSONE Tab] 10 mg PO DAILY #7 tab - Follow Up Plan Condition: FAIR Disposition: HOME/ ROUTINE Instructions: COPD (Chronic Obstructive Pulmonary Disease) (DC), Chronic Lung Disease and Infection Prevention (DC) Additional Instructions: Please follow at [facility], apt 05/20/17 @ 9:20AM Referrals: [facility] [Outside] FAMILY PROVIDER,NO [Primary Care Provider] - <Eloina Aldana - Last Filed: 05/17/17 11:20> Provider - Provider Date of Admission: 05/03/17 15:34 Attending physician: Teninlle Tavares MD Primary care physician: VAL FAMILY PROVIDER Hospital Course - Lab Results Lab Results: Micro Results 05/10/17 05:35 Blood-Venous Blood Culture - Final NO GROWTH AFTER 5 DAYS 05/10/17 05:35 Blood-Venous Gram Stain - Final TEST NOT PERFORMED 05/02/17 12:45 Blood Blood Culture - Final NO GROWTH AFTER 5 DAYS 05/02/17 12:45 Blood Gram Stain - Final TEST NOT PERFORMED 05/04/17 08:40 Urine,Clean Catch Urine Culture - Final No Growth (<1,000 CFU/ML) 05/02/17 11:03 Sputum Gram Stain - Final 05/02/17 11:03 Sputum Sputum Culture - Final Escherichia Coli 05/02/17 12:45 Blood Blood Culture - Final Pseudomonas Aeruginosa 05/02/17 12:45 Blood Gram Stain - Final 05/02/17 14:49 Urine Urine Culture - Final No Growth (<1,000 CFU/ML) Most Recent Lab Values WBC 12.6 K/uL (4.8-10.8) H 05/16/17 05:30 RBC 4.54 Mil/uL (4.40-5.90) 05/16/17 05:30 Hgb 12.6 g/dL (12.0-18.0) 05/16/17 05:30 Hct 38.6 % (35.0-51.0) 05/16/17 05:30 MCV 84.9 fl (80.0-94.0) 05/16/17 05:30 MCH 27.8 pg (27.0-31.0) 05/16/17 05:30 MCHC 32.8 g/dL (33.0-37.0) L 05/16/17 05:30 RDW 16.6 % (11.5-14.5) H 05/16/17 05:30 Plt Count 219 K/uL (130-400) 05/16/17 05:30 MPV 8.6 fl (7.2-11.7) 05/12/17 06:00 Neut % (Auto) 54.4 % (50.0-75.0) 05/12/17 06:00 Lymph % (Auto) 29.8 % (20.0-40.0) 05/12/17 06:00 [place] % (Auto) 14.7 % (0.0-10.0) H 05/12/17 06:00 Eos % (Auto) 0.8 % (0.0-4.0) 05/12/17 06:00 Baso % (Auto) 0.3 % (0.0-2.0) 05/12/17 06:00 Neut # 6.3 K/uL (1.8-7.0) 05/12/17 06:00 Lymph # 3.4 K/uL (1.0-4.3) 05/12/17 06:00 [place] # 1.7 K/uL (0.0-0.8) H 05/12/17 06:00 Eos # 0.1 K/uL (0.0-0.7) 05/12/17 06:00 Baso # 0.0 K/uL (0.0-0.2) 05/12/17 06:00 PT 12.3 Seconds (9.8-13.1) 05/11/17 06:00 INR 1.1 (0.9-1.2) 05/11/17 06:00 APTT 26.0 Seconds (25.6-37.1) 05/11/17 06:00 pCO2 39 mm/Hg (35-45) 05/14/17 14:13 pO2 80 mm/Hg (80-100) 05/14/17 14:13 HCO3 23.5 mmol/L (21-28) 05/14/17 14:13 ABG pH 7.38 (7.35-7.45) 05/14/17 14:13 ABG Total CO2 24.3 mmol/L (22-28) 05/14/17 14:13 ABG O2 Saturation 98.5 % (95-98) H 05/14/17 14:13 ABG O2 Content 18.2 ML/dL (15-23) 05/14/17 14:13 ABG Base Excess -1.8 mmol/L (-2.0-3.0) 05/14/17 14:13 ABG Hemoglobin 13.6 g/dL (11.7-17.4) 05/14/17 14:13 ABG Carboxyhemoglobin 2.2 % (0.5-1.5) H 05/14/17 14:13 POC ABG HHb (Measured) 1.4 % (0.0-5.0) 05/14/17 14:13 ABG Methemoglobin 1.4 % (0.0-3.0) 05/14/17 14:13 ABG O2 Capacity 18.5 mL/dL (16-24) 05/14/17 14:13 Slim Test Yes 05/14/17 14:13 ABG Potassium 3.8 mmol/L (3.6-5.2) 05/02/17 12:19 A-a O2 Difference 21.0 mm/Hg 05/14/17 14:13 Hgb O2 Saturation 95.1 % (95.0-98.0) 05/14/17 14:13 Sodium 135.0 mmol/L (132-148) 05/02/17 12:19 Chloride 105.0 mmol/L (98-107) 05/02/17 12:19 Glucose 102 mg/dL (75-110) 05/02/17 12:19 Lactate 1.0 mmol/L (0.7-2.1) 05/02/17 12:19 FiO2 21.0 % 05/14/17 14:13 Sodium 141 mmol/l (132-148) 05/12/17 06:00 Potassium 4.0 MMOL/L (3.6-5.0) 05/12/17 06:00 Chloride 103 mmol/L (98-107) 05/12/17 06:00 Carbon Dioxide 29 mmol/L (22-30) 05/12/17 06:00 Anion Gap 13 (10-20) 05/12/17 06:00 BUN 40 mg/dl (9-20) H 05/12/17 06:00 Creatinine 1.3 mg/dL (0.8-1.5) 05/12/17 06:00 Est GFR ( Amer) > 60 05/12/17 06:00 Est GFR (Non-Af Amer) 55 05/12/17 06:00 POC Glucose (mg/dL) 91 mg/dL (65-110) 05/16/17 10:46 Random Glucose 79 mg/dL (75-110) 05/12/17 06:00 Calcium 9.3 mg/dL (8.4-10.2) 05/12/17 06:00 Phosphorus 2.8 mg/dl (2.5-4.5) 05/03/17 04:20 Magnesium 1.7 MG/DL (1.6-2.3) 05/03/17 04:20 Total Bilirubin 0.3 mg/dl (0.2-1.3) 05/12/17 06:00 AST 27 U/L (17-59) 05/12/17 06:00 ALT 28 U/L (21-72) 05/12/17 06:00 Alkaline Phosphatase 31 U/L (38-126) L D 05/12/17 06:00 Troponin I < 0.0120 ng/mL (0.00-0.120) 05/03/17 04:20 NT-Pro-B Natriuret Pep 255 pg/ml (0-900) 05/02/17 12:30 Total Protein 6.3 G/DL (6.3-8.2) 05/12/17 06:00 Albumin 3.3 g/dL (3.5-5.0) L 05/12/17 06:00 Globulin 3.0 gm/dL (2.2-3.9) 05/12/17 06:00 Albumin/Globulin Ratio 1.1 (1.0-2.1) 05/12/17 06:00 Arterial Blood Potassium 3.8 mmol/L (3.6-5.2) 05/02/17 12:19 Urine Color Yellow (YELLOW) 05/02/17 14:49 Urine Clarity Clear (Clear) 05/02/17 14:49 Urine pH 5.0 (5.0-8.0) 05/02/17 14:49 Ur Specific [place] 1.016 (1.003-1.030) 05/02/17 14:49 Urine Protein 100 mg/dL (NEGATIVE) 05/02/17 14:49 Urine Glucose (UA) Neg mg/dL (Normal) 05/02/17 14:49 Urine Ketones Trace mg/dL (NEGATIVE) 05/02/17 14:49 Urine Blood Negative (NEGATIVE) 05/02/17 14:49 Urine Nitrate Negative (NEGATIVE) 05/02/17 14:49 Urine Bilirubin Negative (NEGATIVE) 05/02/17 14:49 Urine Urobilinogen 0.2-1.0 mg/dL (0.2-1.0) 05/02/17 14:49 Ur Leukocyte Esterase Neg Chad/uL (Negative) 05/02/17 14:49 Urine RBC (Auto) 3 /hpf (0-3) 05/02/17 14:49 Urine Microscopic WBC 1 /hpf (0-5) 05/02/17 14:49 Hyaline Casts 3-5 /hpf (0-2) H 05/02/17 14:49 C. difficile Ag & Toxin Negative (NEGATIVE) 05/08/17 21:40 Attending/Attestation - Attestation I have personally seen and examined this patient.: Yes I have fully participated in the care of the patient.: Yes I have reviewed all pertinent clinical information, including history, physical exam and plan: Yes Notes (Text): 05/17/17 11:20 patient seen and examined. case discussed with resident. agree with findings and plan.
[2017-05-16] MEDS: Lactobacillus Acidophilus 500 MU Cap PO SCH (13:33)
[2017-05-16 16:06] VITALS: BP 110/72; PULSE 78; TEMP 97.6; O2SAT 96
--- NOTE | 2017-05-18 13:37 | PQF GENQUE ---
Dr. Tavares documentation of sirs, bacteremia and sepsis are present on medical record. After study what is the final diagnosis for this case? This form is a permanent part of the medical record Clarification of your documentation is requested to better reflect the severity of illness and intensity of treatment of your patient. Indicators present [] Specify: [] [] Specify: [] [] Specify: [] [] Specify: [] Location in the medical record that reflects the above clinical findings: [] Treatment Provided: [] PHYSICIAN'S RESPONSE Psaeudomonas bacteremia Based on your medical judgment of the clinical indicators outlined above please clarify the following: [] Practitioner response [] If unable to determine, please check the box, sign and date. Present On Admission (POA) Indicator: [] Present at the time of admission [] Not present at the time of admission [] Clinically Undetermined In responding to this query, please exercise your independent professional judgment. The fact that a question is asked does not imply that any particular answer is desired or expected. Thank you for your clarification on this documentation. If you have any questions please call:[ ] * Thank you, [ ]Madeline Lake 3rd grade reading teacher MELVIN
== END 2017-05-16 17:45 | disposition home or self-care (01) | DRG 541 ==
LOC: SUPCPDRO 11:49 → H.ER 11:49 → H.ERHOLD 14:59 → H.TEL 17:42 → OBSVTOIN 05-03 15:34 → H.MEDSURG1 05-06 18:30
PROVIDERS: ADMIT Family Medicine Geriatric Medicine; ATTEND Family Medicine Geriatric Medicine
PROC: 3E0234Z Introduction of Serum, Toxoid and Vaccine into Muscle, Percutaneous Approach (ICD-10-PCS; principal; 2017-05-03)
PROC: 02HV33Z Insertion of Infusion Device into Superior Vena Cava, Percutaneous Approach (ICD-10-PCS; 2017-05-06)
DX: J44.1 Chronic obstructive pulmonary disease with (acute) exacerbation (principal); R78.81 Bacteremia; I11.0 Hypertensive heart disease with heart failure; K52.1 Toxic gastroenteritis and colitis; I50.9 Heart failure, unspecified; E11.9 Type 2 diabetes mellitus without complications; B96.5 Pseudomonas (aeruginosa) (mallei) (pseudomallei) as the cause of diseases classified elsewhere; R00.1 Bradycardia, unspecified; E55.9 Vitamin D deficiency, unspecified; L40.9 Psoriasis, unspecified; Z23 Encounter for immunization; J45.909 Unspecified asthma, uncomplicated; Z86.711 Personal history of pulmonary embolism; Z91.14 Patient's other noncompliance with medication regimen; Z87.891 Personal history of nicotine dependence; Z59.0 Homelessness; R91.1 Solitary pulmonary nodule; T38.3X5A Adverse effect of insulin and oral hypoglycemic [antidiabetic] drugs, initial encounter

== ENCOUNTER 2017-06-25 13:30 | Inpatient (IN) | payer SELFPAY ==
[2017-06-25 13:30] VITALS: BMI 26.6
[2017-06-25] MEDS ORDERED: Albuterol-Ipratrop 3 mg / 0.5 (3 ml) UD IH STA ×3 (13:52→13:53)
--- NOTE | 2017-06-25 13:56 | ED PDOC ---
HPI: SOB/CHF/COPD Time Seen by Provider: 06/25/17 13:48 Chief Complaint (Nursing): Shortness Of Breath History Per: Patient Onset/Duration Of Symptoms: Days (3) Current Symptoms Are (Timing): Still Present Current Respiratory Medications: See Home Med List Severity: Moderate Pain Scale Rating Of: 2 Associated Symptoms: Productive Cough. denies: Fever Additional Complaint(s): Cough productive green sputum assoc with SOB and chest apin when coughing. denies fever. Past Medical History Vital Signs: Last Vital Signs Temp 99 F 06/25/17 13:46 Pulse 122 H 06/25/17 13:46 Resp 24 06/25/17 14:28 BP 147/87 06/25/17 13:46 Pulse Ox 97 06/25/17 13:55 - Medical History PMH: Asthma, CHF, COPD, Diabetes, HTN, Pneumonia, Pulmonary Embolism Denies: HIV, Chronic Kidney Disease - Family History Family History: States: [place], Diabetes - Immunization History Hx Tetanus Toxoid Vaccination: No Hx Influenza Vaccination: No Hx Pneumococcal Vaccination: No - Home Medications Home Medications: Ambulatory Orders Medication Instructions Recorded GlipiZIDE SR [Glucotrol XL] 2.5 mg PO DAILY #30 tab 05/16/17 Lisinopril [Zestril] 10 mg PO DAILY tab 05/16/17 - Allergies Allergies/Adverse Reactions: Allergies Allergy/AdvReac Type Severity Reaction Status Date / Time No Known Allergies Allergy Verified 06/25/17 13:45 Review of Systems ROS Statement: Except As Marked, All Systems Reviewed And Found Negative Cardiovascular: Positive for: Chest Pain Respiratory: Positive for: Cough, Shortness of Breath, Sputum Physical Exam - Reviewed Nursing Documentation Reviewed: Yes Vital Signs Reviewed: Yes - Physical Exam Appears: Positive for: Non-toxic, No Acute Distress Head Exam: Positive for: ATRAUMATIC, NORMAL INSPECTION, NORMOCEPHALIC Skin: Positive for: Normal Color, Warm, DRY Eye Exam: Positive for: EOMI, Normal appearance, PERRL ENT: Positive for: Normal ENT Inspection Neck: Positive for: Normal, Painless ROM Cardiovascular/Chest: Positive for: Regular Rate, Rhythm Respiratory: Positive for: Rhonchi, Wheezing. Negative for: Respiratory Distress Gastrointestinal/Abdominal: Positive for: Normal Exam, Bowel Sounds, Soft Back: Positive for: Normal Inspection Extremity: Positive for: Normal ROM Neurologic/Psych: Positive for: Alert, Oriented - Laboratory Results Result Diagrams: 06/25/17 14:25 06/25/17 14:25 - ECG O2 Sat by Pulse Oximetry: 97 Disposition - Clinical Impression Clinical Impression: Acute exacerbation of chronic obstructive pulmonary disease - Patient ED Disposition Is Patient to be Admitted: Yes - Disposition Disposition Time: 14:50 Condition: FAIR Forms: [facility] (Greek) - Pt Status Changed To: Hospital Disposition Of: Observation - POA Present On Arrival: None
[2017-06-25] MEDS ORDERED: Albuterol-Ipratrop 3 mg / 0.5 (3 ml) UD ONE (14:06)
[2017-06-25 14:30] LABS: VENOUS BLOOD GAS BASE EXCESS 2.9 mmol/L (0.0-2.0); VENOUS BLOOD GAS PCO2 52 mmHg (40-60); VENOUS BLOOD PH 7.36 (7.32-7.43)
[2017-06-25 14:34] LABS: BASO # 0.1 K/uL (0.0-0.2); EOS # 0.2 K/uL (0.0-0.7); EOS % 1.5 % (0.0-4.0); HEMATOCRIT 37.9 % (35.0-51.0); LYMPH # 2.2 K/uL (1.0-4.3); LYMPH % 15.6 % (20.0-40.0); MEAN CELL VOLUME 86.5 fl (80.0-94.0); MEAN CORPUSCULAR HEMOGLOBIN 28.1 pg (27.0-31.0); MEAN CORPUSCULAR HGB CONC 32.5 g/dL (33.0-37.0); MEAN PLATELET VOLUME 8.6 fl (7.2-11.7); MONO # 1.3 K/uL (0.0-0.8); MONO % 9.2 % (0.0-10.0); NEUT # 10.2 K/uL (1.8-7.0); NEUT % 72.7 % (50.0-75.0); RED CELL DISTRIBUTION WIDTH 16.8 % (11.5-14.5); WHITE BLOOD COUNT 14.1 K/uL (4.8-10.8)
[2017-06-25 14:43] LABS: ALB/GLOB RATIO 1.1 (1.0-2.1); ALKALINE PHOSPHATASE 70 U/L (38-126); ALT/SGPT 19 U/L (21-72); AST/SGOT 29 U/L (17-59); BILIRUBIN,TOTAL 0.9 mg/dl (0.2-1.3); BLOOD UREA NITROGEN 16 mg/dl (9-20); CALCIUM 8.8 mg/dL (8.4-10.2); CARBON DIOXIDE 27 mmol/L (22-30); CHLORIDE 103 mmol/L (98-107); GFR AFRICAN-AMERICAN > 60; GLUCOSE,RANDOM 115 mg/dL (75-110); POTASSIUM 4.4 MMOL/L (3.6-5.0); SODIUM 139 mmol/l (132-148); TOTAL PROTEIN 7.6 G/DL (6.3-8.2)
--- NOTE | 2017-06-25 14:56 | RAD ---
HISTORY: cough COMPARISON: 05/07/2017 TECHNIQUE: Chest PA and lateral FINDINGS: LUNGS: No active pulmonary disease. PLEURA: No significant pleural effusion identified. No pneumothorax apparent. CARDIOVASCULAR: Normal. OSSEOUS STRUCTURES: No significant abnormalities. VISUALIZED UPPER ABDOMEN: Normal. OTHER FINDINGS: None. IMPRESSION: No active disease.
[2017-06-25] MEDS ORDERED: Sodium Chloride 3% for Inhalation 4 ML VIAL.NEB IH PRN (15:18)
[2017-06-25] MEDS ORDERED: Albuterol-Ipratrop 3 mg / 0.5 (3 ml) UD INH PRN ×2 (17:12→17:55)
--- NOTE | 2017-06-25 17:41 | CP.PCM.HP ---
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 Pt describes the pain as a tightness, and denies that the pain radiates to any other part of his body. Pt admits to a chronic cough with green-yellow sputum, and says that his chest pain occurs every time he coughs. Pt admits to two bouts of vomiting two days ago. Pt denies fever, chills, nausea, diarrhea, or constipation. Pt admits to lower abdominal pain and tenderness, as well as burning on urination with increased frequency and volume. Pt denies any groin pain or abnormal discharge. Pt also states his legs often swell, but do not cause him any pain. PMD: pt denies following up with any PMD, formerly went to [facility] PSH: IVC filter placement All: NKDA Social: former smoker, quit 1 yr ago. Formerly smoked 3-4 packs/day. Former alcohol abuser. Denies illicit drug use Family: sister with diabetes. no hx of heart dz or cancer Next of kin: son, lives in [place] ED course VS: T 99 HR 122 BP 147/87 RR 18 O2 sat 96 RA PE: Chest: Patient AAO x 3, (+) rhonchi, wheezing, (-) respiratory distress CV: RRR, +S1, S2 Tachycardia 120 Labs: 14.1>12.3/37.9<217. CMP normal. Troponin negative x1. Imaging: CXR shows no active disease ECG: sinus tachycardia HR 122 Meds: Duoneb, Solumedrol 125mg IVP -Blood culture -Urine dipstick Present on Admission - Present on Admission Any Indicators Present on Admission: No History of DVT/PE: Yes Review of Systems - Constitutional Constitutional: absent: Weakness - EENT Eyes: absent: Blurred Vision, Change in Vision Nose/Mouth/Throat: absent: Sore Throat - Cardiovascular Cardiovascular: Chest Pain, Leg Edema. absent: Palpitations - Respiratory Respiratory: Cough, Wheezing. absent: Hemoptysis - Gastrointestinal Gastrointestinal: Abdominal Pain. absent: Constipation, Diarrhea, Nausea - Genitourinary Genitourinary: Flank Pain, Urinary Frequency, Urinary Urgency - Musculoskeletal Musculoskeletal: Joint Swelling. absent: Muscle Cramps, Muscle Weakness, Tingling - Neurological Neurological: absent: Confusion, Dizziness, Syncope - Psychiatric Psychiatric: absent: Anxiety, Depression Past Patient History - Infectious Disease Hx of Infectious Diseases: None - Tetanus Immunizations Tetanus Immunization: Unknown - Past Medical History & Family History Past Medical History?: Yes - Past Social History Smoking Status: Former Smoker - CARDIAC Hx Congestive Heart Failure: Yes Hx Hypertension: Yes - PULMONARY Hx Asthma: Yes Hx Chronic Obstructive Pulmonary Disease (COPD): Yes Hx Pneumonia: Yes Hx Pulmonary Embolism: Yes - NEUROLOGICAL Hx Neurological Disorder: No - HEENT Hx HEENT Problems: No - RENAL Hx Chronic Kidney Disease: No - ENDOCRINE/METABOLIC Hx Endocrine Disorders: Yes Hx Diabetes Mellitus Type 2: Yes - HEMATOLOGICAL/ONCOLOGICAL Hx Human Immunodeficiency Virus (HIV): No - INTEGUMENTARY Hx Dermatological Problems: Yes (GENERALIZED SKIN PSORIASIS) Hx Psoriasis: Yes - MUSCULOSKELETAL/RHEUMATOLOGICAL Hx Musculoskeletal Disorders: No Hx Falls: No - GASTROINTESTINAL Hx Gastrointestinal Disorders: Yes Other/Comment: GI bleeding on last admission while on anti-coagulation - GENITOURINARY/GYNECOLOGICAL Hx Genitourinary Disorders: No - PSYCHIATRIC Hx Psychophysiologic Disorder: No Hx Substance Use: No - SURGICAL HISTORY Hx Surgeries: No - ANESTHESIA Hx Anesthesia: Yes Hx Anesthesia Reactions: No Hx Malignant Hyperthermia: No Meds Allergies/Adverse Reactions: Allergies Allergy/AdvReac Type Severity Reaction Status Date / Time No Known Allergies Allergy Verified 06/25/17 13:45 Physical Exam - Constitutional Appears: Well, Non-toxic, No Acute Distress - Head Exam Head Exam: ATRAUMATIC, NORMOCEPHALIC - Eye Exam Eye Exam: EOMI, Normal appearance Pupil Exam: PERRL - ENT Exam ENT Exam: Normal Exam - Neck Exam Neck exam: Positive for: Full Rom, Normal Inspection. Negative for: Lymphadenopathy, Tenderness - Respiratory Exam Respiratory Exam: Rhonchi, Wheezes. absent: Respiratory Distress - Cardiovascular Exam Cardiovascular Exam: REGULAR RHYTHM, +S1, +S2. absent: JVD - GI/Abdominal Exam GI & Abdominal Exam: Normal Bowel Sounds, Soft, Tenderness Additional comments: lower abdominal tenderness on moderate to deep palpation - Rectal Exam Rectal Exam: Deferred - Extremities Exam Extremities exam: Positive for: normal capillary refill, normal inspection, pedal pulses present. Negative for: calf tenderness - Neurological Exam Neurological exam: Alert, Oriented x3 - Psychiatric Exam Psychiatric exam: Normal Affect, Normal Mood - Skin Additional comments: -psoriatic plaques noted to all four extremities and trunk -lichenification with xerosis noted to bilateral lower extremities Results - Vital Signs Recent Vital Signs: Last Vital Signs Temp 99 F 06/25/17 13:46 Pulse 120 H 06/25/17 17:29 Resp 20 06/25/17 17:29 BP 149/78 06/25/17 17:29 Pulse Ox 95 06/25/17 17:29 - Labs Result Diagrams: 06/25/17 14:25 06/25/17 14:25 Labs: Laboratory Results - last 24 hr 06/25/17 06/25/17 06/25/17 13:52 14:25 14:25 WBC 14.1 H RBC 4.38 L Hgb 12.3 Hct 37.9 MCV 86.5 MCH 28.1 MCHC 32.5 L RDW 16.8 H Plt Count 217 MPV 8.6 Neut % (Auto) 72.7 Lymph % (Auto) 15.6 L [place] % (Auto) 9.2 Eos % (Auto) 1.5 Baso % (Auto) 1.0 Neut # 10.2 H Lymph # 2.2 [place] # 1.3 H Eos # 0.2 Baso # 0.1 pO2 27 L VBG pH 7.36 VBG pCO2 52 VBG HCO3 26.0 VBG Total CO2 31.0 H VBG O2 Sat (Calc) 56.0 VBG Base Excess 2.9 H VBG Potassium 4.1 Sodium 141.0 139 Chloride 105.0 103 Glucose 118 H Lactate 1.8 FiO2 21.0 Potassium 4.4 Carbon Dioxide 27 Anion Gap 13 BUN 16 Creatinine 0.9 Est GFR ( Amer) > 60 Est GFR (Non-Af Amer) > 60 Random Glucose 115 H Calcium 8.8 Total Bilirubin 0.9 AST 29 ALT 19 L D Alkaline Phosphatase 70 Troponin I 0.0140 Total Protein 7.6 Albumin 4.0 Globulin 3.7 Albumin/Globulin Ratio 1.1 Venous Blood Potassium 4.1 Assessment & Plan - Assessment and Plan (Free Text) Plan: 66 y/o male with PMHx of COPD, HTN, Asthma, PE (s/p IVC filter), psoriasis admitted for COPD exacerbation with shortness of breath and cough with associated chest pain 1) Leukocytosis, afebrile -WBC 14.1 -continue to monitor CBC and vitals -Start Levofloxacin 750mg PO -Blood cx ordered; pt has history of pseudomonas bacteremia on last admission, D /C 05/16 -f/u UA, urine cx 2) COPD exacerbation -O2 96 on RA -continue Duoneb Q4h lovely -Taper steroid, prednisone PO daily -remains afebrile -Sputum culture pending 3) Dysuria -f/u UA, urine cx -continue Levofloxacin 4) Hx of PE and tachycardia -HR 122 OA -IVC filter in place -Tachycardia likely 2/2 to albuterol treatment -c/w monitoring vitals 5) NIDDM2 -Last HgbA1C was 6.7 % on 12/19/16 -new A1C ordered -Insulin sliding scale low dose protocol -Has history of hypoglycemic episodes on previous admissions -Accucheck ACHS 6) Hypertension -continue home meds (Lisinopril) 7) Psoriasis -ammonium lactate 12 % TOP TID 8) Lung Nodule -CT chest 02/13/2017 Paraeptal bullous emphysema. 3 mm right lower lobe nodule for which 1 year f/u is recommended. -[address] chest f/u as outpatient 9) DVT Prophylaxis -s/p IVC filter placement -Heparin 5000 SC
[2017-06-25] MEDS ORDERED: Dextrose 50% SYRINGE Inj (50 ml) IV PRN (17:44)
[2017-06-25] MEDS ORDERED: Glucagon Recombinant 1 mg Inj IM PRN (17:44)
[2017-06-25] MEDS ORDERED: Pneumococcal 23-Valent Vaccine IM ONE (21:19)
[2017-06-25] MEDS: Fluticasone-Salmeterol 250-50mcg Diskus IH SCH (21:39)
[2017-06-25] MEDS ORDERED: Insulin Regular 100 units/ml SC SCH (22:00)
[2017-06-25] MEDS: Insulin Regular 100 units/ml SC SCH (22:49)
[2017-06-25] MEDS: Albuterol-Ipratrop 3 mg / 0.5 (3 ml) UD INH SCH (23:08)
[2017-06-26] MEDS ORDERED: MethylPREDNISolone 40 mg Vial IVP SCH (01:00)
[2017-06-26] MEDS ORDERED: methylPREDNISolone 60 MG in Sodium Chloride 0.9% 50 ML IVPB SCH (01:00)
[2017-06-26] MEDS: Albuterol-Ipratrop 3 mg / 0.5 (3 ml) UD INH SCH ×5 (04:41→19:35)
[2017-06-26] MEDS: Insulin Regular 100 units/ml SC SCH ×4 (06:38→21:11)
[2017-06-26 07:43] LABS: HEMATOCRIT 37.1 % (35.0-51.0); LYMPH # 1.2 K/uL (1.0-4.3); LYMPH % 8.2 % (20.0-40.0); MEAN CELL VOLUME 86.3 fl (80.0-94.0); MEAN CORPUSCULAR HEMOGLOBIN 27.8 pg (27.0-31.0); MEAN CORPUSCULAR HGB CONC 32.2 g/dL (33.0-37.0); MEAN PLATELET VOLUME 8.8 fl (7.2-11.7); MONO # 0.6 K/uL (0.0-0.8); MONO % 4.1 % (0.0-10.0); NEUT # 12.6 K/uL (1.8-7.0); NEUT % 87.7 % (50.0-75.0); PLATELET COUNT 228 K/uL (130-400); RED CELL DISTRIBUTION WIDTH 16.2 % (11.5-14.5); WHITE BLOOD COUNT 14.4 K/uL (4.8-10.8)
[2017-06-26 07:49] LABS: ALKALINE PHOSPHATASE 69 U/L (38-126); ALT/SGPT 30 U/L (21-72); AST/SGOT 23 U/L (17-59); BILIRUBIN,TOTAL 0.7 mg/dl (0.2-1.3); BLOOD UREA NITROGEN 20 mg/dl (9-20); CALCIUM 9.1 mg/dL (8.4-10.2); CARBON DIOXIDE 28 mmol/L (22-30); CHLORIDE 103 mmol/L (98-107); GFR AFRICAN-AMERICAN > 60; GLUCOSE,RANDOM 164 mg/dL (75-110); POTASSIUM 4.2 MMOL/L (3.6-5.0); SODIUM 141 mmol/l (132-148); TOTAL PROTEIN 7.2 G/DL (6.3-8.2)
[2017-06-26] MEDS ORDERED: Albuterol 0.083% Inhal Sol (2.5 mg/3 mL) UD INH PRN (07:59)
--- NOTE | 2017-06-26 09:07 | CARD ---
APPROVED REPORT EKG Measurement Heart [id number] <Conclusion> Sinus tachycardia Otherwise normal ECG
[2017-06-26] MEDS: Fluticasone-Salmeterol 250-50mcg Diskus IH SCH ×2 (09:15→21:10)
[2017-06-26] MEDS: GlipiZIDE 2.5 mg SR Tab PO SCH (09:16)
[2017-06-26 09:17] LABS: NEUTROPHIL 83 % (42-75); TOTAL CELLS COUNTED 100
[2017-06-26] MEDS: levoFLOXacin 750 MG TAB PO SCH (09:17)
--- NOTE | 2017-06-26 10:12 | CP.PCM.PN ---
Subjective - Date & Time of Evaluation Date of Evaluation: 06/26/17 Time of Evaluation: 10:12 - Subjective Subjective: - Patient seen at bedside, had just finished nebulizer treatment. States he did not sleep well overnight, because of recurrent coughing. Was having trouble breathing. - Denies any fever, chills , nausea or vomiting Objective - Vital Signs/Intake and Output Vital Signs (last 24 hours): Temp Pulse Resp BP Pulse Ox 97.5 F L 103 H 20 139/69 98 06/26/17 08:16 06/26/17 08:16 06/26/17 08:16 06/26/17 08:16 06/26/17 08:16 - Medications Medications: Current Medications Albuterol Sulfate (Albuterol 0.083% Inhal Susan (2.5 Mg/3 Ml) Ud) 2.5 mg INH RQ4 PRN PRN Reason: Shortness of Breath Albuterol/Ipratropium (Duoneb 3 Mg/0.5 Mg (3 Ml) Ud) 3 ml INH RQ4 [facility] Last Admin: 06/26/17 07:45 Dose: 3 ml Dextrose (Dextrose 50% Inj) 0 ml IV STAT PRN; Protocol PRN Reason: Hypoglycemia Protocol Dextrose (Glutose 15) 0 gm PO ONCE PRN; Protocol PRN Reason: Hypoglycemia Protocol Glipizide (Glucotrol Xl) 2.5 mg PO BRK [facility] Last Admin: 06/26/17 09:16 Dose: 2.5 mg Glucagon (Glucagen Diagnostic Kit) 0 mg IM STAT PRN; Protocol PRN Reason: Hypoglycemia Protocol Heparin Sodium (Porcine) (Heparin) 5,000 units SC Q12 [facility] PRN Reason: Protocol Last Admin: 06/26/17 09:16 Dose: 5,000 units Insulin Human Regular (Humulin R) 0 units SC ACHS [facility] PRN Reason: Protocol Last Admin: 06/26/17 06:38 Dose: 1 u Lactic Acid (Lac-Hydrin 12% Lotion (225 G)) 1 applic TOP TID [facility] Last Admin: 06/26/17 09:18 Dose: 1 applic Levofloxacin (Levaquin) 750 mg PO DAILY [facility] Last Admin: 06/26/17 09:17 Dose: 750 mg Lisinopril (Zestril) 10 mg PO DAILY [facility] Last Admin: 06/26/17 09:17 Dose: 10 mg Methylprednisolone (Solu-Medrol) 60 mg IVP Q12 [facility] Last Admin: 06/26/17 09:17 Dose: 60 mg Fluticasone/Salmeterol (Advair Diskus 250/50) 1 puff IH Q12 [facility] Last Admin: 06/26/17 09:15 Dose: 1 puff - Labs Labs: 06/26/17 05:30 06/26/17 05:30 - Constitutional Appears: No Acute Distress - Head Exam Head Exam: NORMAL INSPECTION - Eye Exam Eye Exam: Normal appearance - ENT Exam ENT Exam: Mucous Membranes Moist - Respiratory Exam Respiratory Exam: Rhonchi, Wheezes - Cardiovascular Exam Cardiovascular Exam: Tachycardia, +S1, +S2 - GI/Abdominal Exam GI & Abdominal Exam: Soft, Normal Bowel Sounds. absent: Tenderness - Extremities Exam Extremities Exam: Normal Inspection - Neurological Exam Neurological Exam: Alert, Awake, Oriented x3 - Skin Skin Exam: Normal Color, Warm Assessment and Plan - Assessment and Plan (Free Text) Assessment: Plan: 66 y/o male with PMHx of COPD, HTN, Asthma, PE (s/p IVC filter), psoriasis admitted for COPD exacerbation with shortness of breath and cough with associated chest pain 1) Leukocytosis, afebrile -WBC 14.1 stable - Possibly secondary to demargination from steroids - Levofloxacin 750mg PO ( day 1) -Blood cx ordered; pt has history of pseudomonas bacteremia on last admission, D /C 05/16 -f/u UA, urine cx 2) COPD exacerbation -O2 98 on RA -continue Duoneb Q4h lovely - prednisone 60 Q12 -remains afebrile -Sputum culture pending 3) Dysuria -f/u UA, urine cx -continue Levofloxacin 4) Hx of PE and tachycardia -HR 103 -IVC filter in place -Tachycardia likely 2/2 to albuterol treatment -c/w monitoring vitals 5) NIDDM2 -Last HgbA1C was 6.7 % on 12/19/16 -new A1C ordered - Glipizide 2.5 PO daily -Insulin sliding scale low dose protocol -Has history of hypoglycemic episodes on previous admissions -Accucheck ACHS 6) Hypertension -continue home meds (Lisinopril) 7) Psoriasis -ammonium lactate 12 % TOP TID 8) Lung Nodule -CT chest 02/13/2017 Paraeptal bullous emphysema. 3 mm right lower lobe nodule for which 1 year f/u is recommended. -[address] chest f/u as outpatient 9) DVT Prophylaxis -s/p IVC filter placement -Heparin 5000 SC
[2017-06-26 11:59] LABS: RBC URINE 1 /hpf (0-3); URINE BILIRUBIN NEGATIVE (NEGATIVE); URINE BLOOD SMALL (NEGATIVE); URINE COLOR YELLOW (YELLOW); URINE GLUCOSE (UA) 150 mg/dL (Normal); URINE KETONE NEGATIVE (NEGATIVE); URINE LEUKOCYTE ESTERASE NEG Leu/uL (Negative); URINE PROTEIN 100 mg/dL (NEGATIVE); URINE UROBILINOGEN 0.2-1.0 mg/dL (0.2-1.0); WBC URINE < 1 /hpf (0-5)
--- NOTE | 2017-06-26 14:08 | CON ---
HISTORY OF PRESENT ILLNESS: Mr. Preet Brown is a 67-year-old male who was referred for pulmonary evaluation because of acute exacerbation of chronic obstructive pulmonary disease. The patient describes chest congestion with cough for the past several weeks prior to presentation associated with chest tightness and yellow-green sputum. He was admitted via the emergency room because of acute exacerbation of chronic obstructive pulmonary disease and referred for pulmonary consultation. He indicates that he has not smoked cigarettes for the past 2 months, but has had a history of chronic obstructive pulmonary disease, pulmonary embolism, status post IVC filter placement, diabetes mellitus, hypertension and psoriasis of skin with recurrent cough and chest tightness. He is noncompliant to therapy and indicates that he lives with a friend and does not want to go home until at least Wednesday of next week because his friend has to go to work. He continues to have cough that is productive of thick, tenacious sputum. PHYSICAL EXAMINATION: GENERAL: The patient is alert, oriented, appears dyspneic on mild exertion, continues to have cough. VITAL SIGNS: Blood pressure of 140/87 with a respiratory rate of 18 to 20 per minute, O2 sats 96% on room air. SKIN: Shows poor turgor with psoriatic arthritis changes and dry scaly rash. HEENT: Mouth shows fair hygiene with mucous engorgement of pharynx. NECK: JVP flat. LUNGS: Coarse bilateral rales with scattered wheezing and dullness, both lung bases. HEART: S1 and S2. EXTREMITIES: Show scaly changes with edema of lower extremities. LABORATORY DATA: Chest x-ray shows no acute cardiopulmonary pathology. EKG, tachycardic, but regular rhythm. VBG: PH 7.36, pCO2 of 52, pO2 of 27, O2 saturation of 56%. WBC 14.4, hemoglobin 12.0, platelet count of 228,000. Sodium 141, potassium 4.2, BUN of 20, creatinine 0.8, glucose of 173. IMPRESSION: Clinical picture appears to be due to acute exacerbation of chronic obstructive pulmonary disease with noncompliance to medication; history of pulmonary emboli in the past, status post inferior vena cava filter placement; upper respiratory tract infection. One suggests aerosolized bronchodilators, intravenous steroids with sputum for Gram stain and cultures. Pancultures to be obtained. We will continue therapy as ordered including aerosolized bronchodilators and oxygen therapy. We will continue to follow with you. Further therapy will depend on findings. Juan Beckwith MD [facility] # [id number]
[2017-06-26] MEDS: Acetylcysteine 20% Inhal Soln (4ml) INH SCH (19:35)
[2017-06-27] MEDS: Albuterol-Ipratrop 3 mg / 0.5 (3 ml) UD INH SCH ×6 (00:18→19:33)
[2017-06-27] MEDS: Insulin Regular 100 units/ml SC SCH ×4 (07:05→21:35)
[2017-06-27] MEDS: Acetylcysteine 20% Inhal Soln (4ml) INH SCH ×2 (07:57→19:32)
[2017-06-27] MEDS: Fluticasone-Salmeterol 250-50mcg Diskus IH SCH ×2 (09:09→21:20)
[2017-06-27] MEDS: GlipiZIDE 2.5 mg SR Tab PO SCH (09:10)
[2017-06-27] MEDS: levoFLOXacin 750 MG TAB PO SCH (09:12)
--- NOTE | 2017-06-27 10:02 | CP.PCM.PN ---
Subjective - Date & Time of Evaluation Date of Evaluation: 06/27/17 Time of Evaluation: 10:02 - Subjective Subjective: STILL COUGHING SOB PERSISTS Objective - Vital Signs/Intake and Output Vital Signs (last 24 hours): Temp Pulse Resp BP Pulse Ox 98.4 F 81 20 138/57 L 94 L 06/27/17 08:14 06/27/17 08:14 06/27/17 08:14 06/27/17 08:14 06/27/17 08:14 - Medications Medications: Current Medications Acetylcysteine (Acetylcysteine 20%) 2 ml INH RBID [facility] Last Admin: 06/27/17 07:57 Dose: 2 ml Albuterol/Ipratropium (Duoneb 3 Mg/0.5 Mg (3 Ml) Ud) 3 ml INH RQ4 [facility] Last Admin: 06/27/17 07:43 Dose: 3 ml Dextrose (Dextrose 50% Inj) 0 ml IV STAT PRN; Protocol PRN Reason: Hypoglycemia Protocol Dextrose (Glutose 15) 0 gm PO ONCE PRN; Protocol PRN Reason: Hypoglycemia Protocol Glipizide (Glucotrol Xl) 2.5 mg PO BRK [facility] Last Admin: 06/27/17 09:10 Dose: 2.5 mg Glucagon (Glucagen Diagnostic Kit) 0 mg IM STAT PRN; Protocol PRN Reason: Hypoglycemia Protocol Heparin Sodium (Porcine) (Heparin) 5,000 units SC Q12 [facility] PRN Reason: Protocol Last Admin: 06/27/17 09:10 Dose: 5,000 units Insulin Human Regular (Humulin R) 0 units SC ACHS [facility] PRN Reason: Protocol Last Admin: 06/27/17 07:05 Dose: 2 u Lactic Acid (Lac-Hydrin 12% Lotion (225 G)) 1 applic TOP TID [facility] Last Admin: 06/27/17 09:18 Dose: 1 applic Levofloxacin (Levaquin) 750 mg PO DAILY [facility] Last Admin: 06/27/17 09:12 Dose: 750 mg Lisinopril (Zestril) 10 mg PO DAILY [facility] Last Admin: 06/26/17 09:17 Dose: 10 mg Methylprednisolone (Solu-Medrol) 60 mg IVP Q12 [facility] Last Admin: 06/27/17 09:14 Dose: 60 mg Fluticasone/Salmeterol (Advair Diskus 250/50) 1 puff IH Q12 [facility] Last Admin: 06/27/17 09:09 Dose: 1 puff - Labs Labs: 06/26/17 05:30 06/26/17 05:30 - Constitutional Appears: Chronically Ill - Head Exam Head Exam: ATRAUMATIC, NORMAL INSPECTION, NORMOCEPHALIC - Eye Exam Eye Exam: EOMI, Normal appearance, PERRL Pupil Exam: NORMAL ACCOMODATION, PERRL - ENT Exam ENT Exam: Mucous Membranes Moist, Normal Exam - Neck Exam Neck Exam: Full ROM, Normal Inspection. absent: Lymphadenopathy - Respiratory Exam Respiratory Exam: Decreased Breath Sounds, Prolonged Expiratory Phase, Rales, Wheezes, NORMAL BREATHING PATTERN - Cardiovascular Exam Cardiovascular Exam: REGULAR RHYTHM, +S1, +S2. absent: Murmur - GI/Abdominal Exam GI & Abdominal Exam: Soft, Normal Bowel Sounds. absent: Tenderness - Rectal Exam Rectal Exam: NORMAL INSPECTION - Extremities Exam Extremities Exam: Full ROM, Normal Capillary Refill, Normal Inspection. absent : Joint Swelling, Pedal Edema - Back Exam Back Exam: NORMAL INSPECTION - Neurological Exam Neurological Exam: Alert, Awake, CN II-XII Intact, Normal Gait, Oriented x3 - Psychiatric Exam Psychiatric exam: Normal Affect, Normal Mood - Skin Skin Exam: Dry, Rash Assessment and Plan - Assessment and Plan (Free Text) Assessment: ACUTE EXAC OF COPD PSOARIASIS URI Plan: CONTINUE PRESENT RX
--- NOTE | 2017-06-27 10:12 | CP.PCM.PN ---
Subjective - Date & Time of Evaluation Date of Evaluation: 06/27/17 Time of Evaluation: 09:10 - Subjective Subjective: Patient seen and examined at bedside. No acute events overnight. Continues to cough and be SOB. No chest pain. Tolerating PO well. Denies any fever, chills, nausea or vomiting. Pulmonary on board. Noted left groin mass x 1 day. Painful when cough/urinates. No hematuria, testicular pain. Objective - Vital Signs/Intake and Output Vital Signs (last 24 hours): Temp Pulse Resp BP Pulse Ox 98.4 F 81 20 138/57 L 94 L 06/27/17 08:14 06/27/17 08:14 06/27/17 08:14 06/27/17 08:14 06/27/17 08:14 - Medications Medications: Current Medications Acetylcysteine (Acetylcysteine 20%) 2 ml INH RBID [facility] Last Admin: 06/27/17 07:57 Dose: 2 ml Albuterol/Ipratropium (Duoneb 3 Mg/0.5 Mg (3 Ml) Ud) 3 ml INH RQ4 [facility] Last Admin: 06/27/17 07:43 Dose: 3 ml Dextrose (Dextrose 50% Inj) 0 ml IV STAT PRN; Protocol PRN Reason: Hypoglycemia Protocol Dextrose (Glutose 15) 0 gm PO ONCE PRN; Protocol PRN Reason: Hypoglycemia Protocol Glipizide (Glucotrol Xl) 2.5 mg PO BRK [facility] Last Admin: 06/27/17 09:10 Dose: 2.5 mg Glucagon (Glucagen Diagnostic Kit) 0 mg IM STAT PRN; Protocol PRN Reason: Hypoglycemia Protocol Heparin Sodium (Porcine) (Heparin) 5,000 units SC Q12 [facility] PRN Reason: Protocol Last Admin: 06/27/17 09:10 Dose: 5,000 units Insulin Human Regular (Humulin R) 0 units SC ACHS [facility] PRN Reason: Protocol Last Admin: 06/27/17 07:05 Dose: 2 u Lactic Acid (Lac-Hydrin 12% Lotion (225 G)) 1 applic TOP TID [facility] Last Admin: 06/27/17 09:18 Dose: 1 applic Levofloxacin (Levaquin) 750 mg PO DAILY [facility] Last Admin: 06/27/17 09:12 Dose: 750 mg Lisinopril (Zestril) 10 mg PO DAILY [facility] Last Admin: 06/26/17 09:17 Dose: 10 mg Methylprednisolone (Solu-Medrol) 60 mg IVP Q12 [facility] Last Admin: 06/27/17 09:14 Dose: 60 mg Fluticasone/Salmeterol (Advair Diskus 250/50) 1 puff IH Q12 [facility] Last Admin: 06/27/17 09:09 Dose: 1 puff - Labs Labs: 06/26/17 05:30 06/26/17 05:30 - Constitutional Appears: Non-toxic, No Acute Distress, Chronically Ill - Head Exam Head Exam: ATRAUMATIC, NORMAL INSPECTION, NORMOCEPHALIC - Respiratory Exam Respiratory Exam: Rhonchi, Wheezes, NORMAL BREATHING PATTERN - Cardiovascular Exam Cardiovascular Exam: REGULAR RHYTHM, +S1, +S2. absent: Murmur - GI/Abdominal Exam GI & Abdominal Exam: Soft, Hernia (left groin, non-reducible, non-tender), Normal Bowel Sounds. absent: Tenderness - Neurological Exam Neurological Exam: Alert, Awake - Psychiatric Exam Psychiatric exam: Normal Affect, Normal Mood - Skin Skin Exam: Dry, Rash Assessment and Plan - Assessment and Plan (Free Text) Assessment: 66 y/o male with PMHx of COPD, HTN, Asthma, PE (s/p IVC filter), psoriasis admitted for COPD exacerbation with shortness of breath and cough. 1) SIRS - due to elevated WBC, and tachycardia - No obvious source of infection - WBC elevated Possibly secondary to demargination from steroids - Tachycardia improved, possibly worsened by albuterol - c/w Levofloxacin 750mg PO ( day 2) - Blood cx ordered; pt has history of pseudomonas bacteremia on last admission, D/C 05/16 - f/u urine/blood/sputum cx (NGTD) 2) COPD exacerbation - O2 98 on RA - continue Duoneb Q4h lovely - increased prednisone 60 to q8h - remains afebrile - Sputum culture NGTD 3) Hx of PE and tachycardia -HR normalized -IVC filter in place -Tachycardia likely 2/2 to albuterol treatment -c/w monitoring vitals 4) NIDDM2 -Last HgbA1C was 6.2 -Glipizide 2.5 PO daily -Insulin sliding scale low dose protocol -Has history of hypoglycemic episodes on previous admissions -Accucheck ACHS 5) Hypertension -continue home meds (Lisinopril) 6) Psoriasis -ammonium lactate 12 % TOP TID 7) Lung Nodule -CT chest 02/13/2017 Paraeptal bullous emphysema. 3 mm right lower lobe nodule for which 1 year f/u is recommended. -[address] chest f/u as outpatient 8) Left groin mass - Likely hernia, inguinal - Surgery consulted, recommends CT abd/pelvis with PO contrast for further evaluation 9) DVT Prophylaxis -s/p IVC filter placement -Heparin 5000 SC q8h
[2017-06-27] MEDS ORDERED: Iohexol 240 (50 ml) PO ONE (15:25)
[2017-06-28] MEDS: Albuterol-Ipratrop 3 mg / 0.5 (3 ml) UD INH SCH ×6 (00:12→19:29)
[2017-06-28 05:19] LABS: HEMATOCRIT 37.5 % (35.0-51.0); MEAN CELL VOLUME 86.8 fl (80.0-94.0); MEAN CORPUSCULAR HEMOGLOBIN 27.5 pg (27.0-31.0); MEAN CORPUSCULAR HGB CONC 31.7 g/dL (33.0-37.0); RED CELL DISTRIBUTION WIDTH 16.5 % (11.5-14.5); WHITE BLOOD COUNT 13.4 K/uL (4.8-10.8)
[2017-06-28 05:24] LABS: POTASSIUM 3.6 MMOL/L (3.6-5.0)
[2017-06-28 05:29] LABS: BLOOD UREA NITROGEN 23 mg/dl (9-20); CARBON DIOXIDE 31 mmol/L (22-30); CHLORIDE 100 mmol/L (98-107); GFR AFRICAN-AMERICAN > 60; GLUCOSE,RANDOM 257 mg/dL (75-110); SODIUM 139 mmol/l (132-148)
[2017-06-28 05:30] LABS: PARTIAL THROMBOPLASTIN TIME 28.3 Seconds (25.6-37.1)
[2017-06-28] MEDS ORDERED: Iohexol 240 (50 ml) PO ONE (06:00)
[2017-06-28] MEDS: Insulin Regular 100 units/ml SC SCH ×4 (06:33→22:00)
--- NOTE | 2017-06-28 07:13 | CP.PCM.CON ---
<Karen Dumont - Last Filed: 06/28/17 07:10> History of Present Illness - History of Present Illness History of Present Illness: GENERAL SURGERY CONSULT NOTE FOR DR. ZULETA 67yo M with PMHx of COPD,DM, HTN, PE with IVC filter (not on penitentiary anticoagulation due to history of retroperitoneal hematoma), psoriasis and asthma was admitted for COPD exacerbation on 06/25. Patient also reports lower abdominal pain for a couple days. He first noticed a possible inguinal hernia yesterday. He states it hurts when he coughs. He is passing flatus. Last BM yesterday - was watery. PMHx: COPD,DM, HTN, PE with IVC filter (not on penitentiary anticoagulation due to history of retroperitoneal hematoma), psoriasis and asthma PSH: IVC filter placement All: NKDA Social: former smoker, quit 1 yr ago. Formerly smoked 3-4 packs/day. Former alcohol abuser - drank 1/2 gallon vodka daily + beers. Denies illicit drug use Review of Systems - Review of Systems All systems: reviewed and no additional remarkable complaints except (as per HPI ) Past Patient History - Infectious Disease Hx of Infectious Diseases: None - Tetanus Immunizations Tetanus Immunization: Unknown - Past Medical History & Family History Past Medical History?: Yes - Past Social History Smoking Status: Former Smoker - CARDIAC Hx Congestive Heart Failure: Yes Hx Hypertension: Yes - PULMONARY Hx Asthma: Yes Hx Chronic Obstructive Pulmonary Disease (COPD): Yes Hx Pneumonia: Yes Hx Pulmonary Embolism: Yes - NEUROLOGICAL Hx Neurological Disorder: No - HEENT Hx HEENT Problems: No - RENAL Hx Chronic Kidney Disease: No - ENDOCRINE/METABOLIC Hx Endocrine Disorders: Yes Hx Diabetes Mellitus Type 2: Yes - HEMATOLOGICAL/ONCOLOGICAL Hx Human Immunodeficiency Virus (HIV): No - INTEGUMENTARY Hx Dermatological Problems: Yes (GENERALIZED SKIN PSORIASIS) Hx Psoriasis: Yes - MUSCULOSKELETAL/RHEUMATOLOGICAL Hx Musculoskeletal Disorders: No Hx Falls: No - GASTROINTESTINAL Hx Gastrointestinal Disorders: Yes Other/Comment: GI bleeding on last admission while on anti-coagulation - GENITOURINARY/GYNECOLOGICAL Hx Genitourinary Disorders: No - PSYCHIATRIC Hx Psychophysiologic Disorder: No Hx Substance Use: No - SURGICAL HISTORY Hx Surgeries: No - ANESTHESIA Hx Anesthesia: Yes Hx Anesthesia Reactions: No Hx Malignant Hyperthermia: No Meds Allergies/Adverse Reactions: Allergies Allergy/AdvReac Type Severity Reaction Status Date / Time No Known Allergies Allergy Verified 12/08/17 13:45 - Medications Medications: Current Medications Acetylcysteine (Acetylcysteine 20%) 2 ml INH RBID [facility] Last Admin: 06/27/17 19:32 Dose: 2 ml Albuterol/Ipratropium (Duoneb 3 Mg/0.5 Mg (3 Ml) Ud) 3 ml INH RQ4 [facility] Last Admin: 06/28/17 04:41 Dose: 3 ml Dextrose (Dextrose 50% Inj) 0 ml IV STAT PRN; Protocol PRN Reason: Hypoglycemia Protocol Dextrose (Glutose 15) 0 gm PO ONCE PRN; Protocol PRN Reason: Hypoglycemia Protocol Glipizide (Glucotrol Xl) 2.5 mg PO BRK [facility] Last Admin: 06/27/17 09:10 Dose: 2.5 mg Glucagon (Glucagen Diagnostic Kit) 0 mg IM STAT PRN; Protocol PRN Reason: Hypoglycemia Protocol Heparin Sodium (Porcine) (Heparin) 5,000 units SC Q8 [facility] PRN Reason: Protocol Last Admin: 06/28/17 00:42 Dose: 5,000 units Insulin Human Regular (Humulin R) 0 units SC ACHS [facility] PRN Reason: Protocol Last Admin: 06/28/17 06:33 Dose: Not Given Lactic Acid (Lac-Hydrin 12% Lotion (225 G)) 1 applic TOP TID [facility] Last Admin: 06/27/17 17:07 Dose: 1 applic Levofloxacin (Levaquin) 750 mg PO DAILY [facility] Last Admin: 06/27/17 09:12 Dose: 750 mg Lisinopril (Zestril) 10 mg PO DAILY [facility] Last Admin: 06/27/17 12:28 Dose: 10 mg Methylprednisolone (Solu-Medrol) 60 mg IVP Q8 [facility] Last Admin: 06/28/17 00:42 Dose: 60 mg Fluticasone/Salmeterol (Advair Diskus 250/50) 1 puff IH Q12 [facility] Last Admin: 06/27/17 21:20 Dose: 1 puff Physical Exam - Constitutional Appears: Non-toxic, No Acute Distress, Unkempt - Head Exam Head Exam: ATRAUMATIC, NORMAL INSPECTION - Respiratory Exam Respiratory Exam: NORMAL BREATHING PATTERN. absent: Respiratory Distress - Cardiovascular Exam Cardiovascular Exam: +S1, +S2 - GI/Abdominal Exam GI & Abdominal Exam: Hernia (left inguinal hernia, reducible), Soft, Tenderness (mild lower abdominal tenderness). absent: Distended, Firm, Guarding, Rebound, Rigid - Neurological Exam Neurological exam: Alert - Psychiatric Exam Psychiatric exam: Normal Affect, Normal Mood - Skin Skin Exam: Normal Color, Warm Results - Vital Signs Recent Vital Signs: Last Vital Signs Temp 97.6 F 06/28/17 05:02 Pulse 94 H 06/28/17 05:02 Resp 18 06/28/17 05:02 BP 155/76 H 06/28/17 05:02 Pulse Ox 95 06/28/17 05:02 - Labs Result Diagrams: 06/28/17 04:20 06/28/17 04:20 Labs: Laboratory Results - last 24 hr 06/26/17 06/27/17 06/27/17 05:30 10:46 15:34 WBC RBC Hgb Hct MCV MCH MCHC RDW Plt Count PT INR APTT Sodium Potassium Chloride Carbon Dioxide Anion Gap BUN Creatinine Est GFR ( Amer) Est GFR (Non-Af Amer) POC Glucose (mg/dL) 200 H 274 H Random Glucose Hemoglobin A1c 6.2 Calcium 06/27/17 06/28/17 06/28/17 21:31 04:20 04:20 WBC 13.4 H RBC 4.32 L Hgb 11.9 L Hct 37.5 MCV 86.8 MCH 27.5 MCHC 31.7 L RDW 16.5 H Plt Count 236 PT 13.0 INR 1.2 APTT 28.3 Sodium Potassium Chloride Carbon Dioxide Anion Gap BUN Creatinine Est GFR ( Amer) Est GFR (Non-Af Amer) POC Glucose (mg/dL) 234 H Random Glucose Hemoglobin A1c Calcium 06/28/17 04:20 WBC RBC Hgb Hct MCV MCH MCHC RDW Plt Count PT INR APTT Sodium 139 Potassium 3.6 Chloride 100 Carbon Dioxide 31 H Anion Gap 12 BUN 23 H Creatinine 1.2 Est GFR ( Amer) > 60 Est GFR (Non-Af Amer) > 60 POC Glucose (mg/dL) Random Glucose 257 H Hemoglobin A1c Calcium 9.0 Assessment & Plan - Assessment and Plan (Free Text) Assessment: 67yo M with PMHx of COPD,DM, HTN, PE with IVC filter (not on [facility] anticoagulation due to history of retroperitoneal hematoma), psoriasis and asthma was admitted for COPD exacerbation and was found to have possible left inguinal hernia - CT Abd/Pelvis with PO contrast ordered to evaluate abdominal pain and possible left inguinal hernia - Serial abdominal exams - Medical management per primary team - Discussed plan with Dr. Song Dumont PGY-3 <Benigno Zuleta - Last Filed: 06/28/17 16:06> Meds - Medications Medications: Current Medications Acetylcysteine (Acetylcysteine 20%) 2 ml INH RBID [facility] Last Admin: 06/28/17 07:26 Dose: 2 ml Albuterol/Ipratropium (Duoneb 3 Mg/0.5 Mg (3 Ml) Ud) 3 ml INH RQ4 [facility] Last Admin: 06/28/17 15:57 Dose: 3 ml Dextrose (Dextrose 50% Inj) 0 ml IV STAT PRN; Protocol PRN Reason: Hypoglycemia Protocol Dextrose (Glutose 15) 0 gm PO ONCE PRN; Protocol PRN Reason: Hypoglycemia Protocol Glipizide (Glucotrol Xl) 2.5 mg PO BRK [facility] Last Admin: 06/28/17 11:41 Dose: 2.5 mg Glucagon (Glucagen Diagnostic Kit) 0 mg IM STAT PRN; Protocol PRN Reason: Hypoglycemia Protocol Heparin Sodium (Porcine) (Heparin) 5,000 units SC Q8 [facility] PRN Reason: Protocol Last Admin: 06/28/17 11:41 Dose: 5,000 units Insulin Human Regular (Humulin R) 0 units SC ACHS [facility] PRN Reason: Protocol Last Admin: 06/28/17 06:33 Dose: Not Given Lactic Acid (Lac-Hydrin 12% Lotion (225 G)) 1 applic TOP TID [facility] Last Admin: 06/28/17 11:45 Dose: 1 applic Levofloxacin (Levaquin) 750 mg PO DAILY [facility] Last Admin: 06/28/17 11:45 Dose: 750 mg Lisinopril (Zestril) 10 mg PO DAILY [facility] Last Admin: 06/28/17 11:42 Dose: 10 mg Methylprednisolone (Solu-Medrol) 60 mg IVP Q8 [facility] Last Admin: 06/28/17 11:42 Dose: 60 mg Fluticasone/Salmeterol (Advair Diskus 250/50) 1 puff IH Q12 [facility] Last Admin: 06/28/17 11:40 Dose: 1 puff Results - Vital Signs Recent Vital Signs: Last Vital Signs Temp 97.5 F L 06/28/17 15:28 Pulse 79 06/28/17 15:28 Resp 20 06/28/17 15:28 BP 165/81 H 06/28/17 15:28 Pulse Ox 97 06/28/17 15:28 - Labs Result Diagrams: 06/28/17 04:20 06/28/17 04:20 Labs: Laboratory Results - last 24 hr 06/27/17 06/28/17 06/28/17 21:31 04:20 04:20 WBC 13.4 H RBC 4.32 L Hgb 11.9 L Hct 37.5 MCV 86.8 MCH 27.5 MCHC 31.7 L RDW 16.5 H Plt Count 236 PT 13.0 INR 1.2 APTT 28.3 Sodium Potassium Chloride Carbon Dioxide Anion Gap BUN Creatinine Est GFR ( Amer) Est GFR (Non-Af Amer) POC Glucose (mg/dL) 234 H Random Glucose Calcium 06/28/17 06/28/17 06/28/17 04:20 05:05 11:08 WBC RBC Hgb Hct MCV MCH MCHC RDW Plt Count PT INR APTT Sodium 139 Potassium 3.6 Chloride 100 Carbon Dioxide 31 H Anion Gap 12 BUN 23 H Creatinine 1.2 Est GFR ( Amer) > 60 Est GFR (Non-Af Amer) > 60 POC Glucose (mg/dL) 248 H 187 H Random Glucose 257 H Calcium 9.0 Attending/Attestation - Attestation I have personally seen and examined this patient.: Yes I have fully participated in the care of the patient.: Yes I have reviewed all pertinent clinical information: Yes Notes (Text): Pt was seen and examined at bedside Agree with above note and assessment Pt with COPD exacerbation with Left inguinal hernia Reducible left Inguinal hernia Labs and radiology reviewed Ass: Reducible left inguinal hernia Plan : CT scan of A/P C/w current mx Plan d.w pt in detail Risk and benefit explained in detail.
[2017-06-28] MEDS: Acetylcysteine 20% Inhal Soln (4ml) INH SCH (07:26)
--- NOTE | 2017-06-28 09:00 | CP.PCM.PN ---
Subjective - Date & Time of Evaluation Date of Evaluation: 06/28/17 Time of Evaluation: 09:00 - Subjective Subjective: STILL COUGHING C/O EXERTIONAL DYSPNEA Objective - Vital Signs/Intake and Output Vital Signs (last 24 hours): Temp Pulse Resp BP Pulse Ox 97.9 F 79 18 145/68 96 06/28/17 07:52 06/28/17 07:52 06/28/17 07:52 06/28/17 07:52 06/28/17 07:52 - Medications Medications: Current Medications Acetylcysteine (Acetylcysteine 20%) 2 ml INH RBID [facility] Last Admin: 06/28/17 07:26 Dose: 2 ml Albuterol/Ipratropium (Duoneb 3 Mg/0.5 Mg (3 Ml) Ud) 3 ml INH RQ4 [facility] Last Admin: 06/28/17 07:26 Dose: 3 ml Dextrose (Dextrose 50% Inj) 0 ml IV STAT PRN; Protocol PRN Reason: Hypoglycemia Protocol Dextrose (Glutose 15) 0 gm PO ONCE PRN; Protocol PRN Reason: Hypoglycemia Protocol Glipizide (Glucotrol Xl) 2.5 mg PO BRK [facility] Last Admin: 06/27/17 09:10 Dose: 2.5 mg Glucagon (Glucagen Diagnostic Kit) 0 mg IM STAT PRN; Protocol PRN Reason: Hypoglycemia Protocol Heparin Sodium (Porcine) (Heparin) 5,000 units SC Q8 [facility] PRN Reason: Protocol Last Admin: 06/28/17 00:42 Dose: 5,000 units Insulin Human Regular (Humulin R) 0 units SC ACHS [facility] PRN Reason: Protocol Last Admin: 06/28/17 06:33 Dose: Not Given Lactic Acid (Lac-Hydrin 12% Lotion (225 G)) 1 applic TOP TID [facility] Last Admin: 06/27/17 17:07 Dose: 1 applic Levofloxacin (Levaquin) 750 mg PO DAILY [facility] Last Admin: 06/27/17 09:12 Dose: 750 mg Lisinopril (Zestril) 10 mg PO DAILY [facility] Last Admin: 06/27/17 12:28 Dose: 10 mg Methylprednisolone (Solu-Medrol) 60 mg IVP Q8 [facility] Last Admin: 06/28/17 00:42 Dose: 60 mg Fluticasone/Salmeterol (Advair Diskus 250/50) 1 puff IH Q12 [facility] Last Admin: 06/27/17 21:20 Dose: 1 puff - Labs Labs: 06/28/17 04:20 06/28/17 04:20 PT 13.0 Seconds (9.8-13.1) 06/28/17 04:20 INR 1.2 (0.9-1.2) 06/28/17 04:20 APTT 28.3 Seconds (25.6-37.1) 06/28/17 04:20 - Constitutional Appears: Chronically Ill - Head Exam Head Exam: ATRAUMATIC, NORMAL INSPECTION, NORMOCEPHALIC - Eye Exam Eye Exam: EOMI, Normal appearance, PERRL Pupil Exam: NORMAL ACCOMODATION, PERRL - ENT Exam ENT Exam: Mucous Membranes Moist, Normal Exam - Neck Exam Neck Exam: Full ROM, Normal Inspection. absent: Lymphadenopathy - Respiratory Exam Respiratory Exam: Decreased Breath Sounds, Prolonged Expiratory Phase, Rales, Wheezes, NORMAL BREATHING PATTERN - Cardiovascular Exam Cardiovascular Exam: REGULAR RHYTHM, +S1, +S2. absent: Murmur - GI/Abdominal Exam GI & Abdominal Exam: Soft, Normal Bowel Sounds. absent: Tenderness - Rectal Exam Rectal Exam: NORMAL INSPECTION - Extremities Exam Extremities Exam: Full ROM, Normal Capillary Refill, Normal Inspection. absent : Joint Swelling, Pedal Edema - Back Exam Back Exam: NORMAL INSPECTION - Neurological Exam Neurological Exam: Alert, Awake, CN II-XII Intact, Normal Gait, Oriented x3 - Psychiatric Exam Psychiatric exam: Normal Affect, Normal Mood - Skin Skin Exam: Dry, Rash, Warm Assessment and Plan - Assessment and Plan (Free Text) Assessment: ACUTE EXAC OF COPD PSOARIASIS ESBL IN SPUTUM Plan: CONTINUE PRESENT RX MAY NEED INFECTIOUS DZ EVAL
--- NOTE | 2017-06-28 09:21 | CP.PCM.PN ---
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 Pt says his cough is persistent and constant, and every time he coughs he feels a pain in his chest. Pt says he tries to sleep upright but this worsens his cough. Pt says he is still experiencing shortness of breath and is using the nebulizer often. Pt says he has still been coughing up some yellow sputum, less since admission. Pt says he had two episodes of non-bloody vomiting yesterday after meals. Pt has not had anything to eat or drink since, and is aware that he should hold off from food and drink until after his CT scan today. Pt says he is not having groin pain at rest but when he going to urinate it is very painful. Pt denies having any fever, chills, diarrhea or constipation. Objective - Vital Signs/Intake and Output Vital Signs (last 24 hours): Temp Pulse Resp BP Pulse Ox 97.9 F 79 18 145/68 96 06/28/17 07:52 06/28/17 07:52 06/28/17 07:52 06/28/17 07:52 06/28/17 07:52 - Medications Medications: Current Medications Acetylcysteine (Acetylcysteine 20%) 2 ml INH RBID [facility] Last Admin: 06/28/17 07:26 Dose: 2 ml Albuterol/Ipratropium (Duoneb 3 Mg/0.5 Mg (3 Ml) Ud) 3 ml INH RQ4 [facility] Last Admin: 06/28/17 07:26 Dose: 3 ml Dextrose (Dextrose 50% Inj) 0 ml IV STAT PRN; Protocol PRN Reason: Hypoglycemia Protocol Dextrose (Glutose 15) 0 gm PO ONCE PRN; Protocol PRN Reason: Hypoglycemia Protocol Glipizide (Glucotrol Xl) 2.5 mg PO BRK [facility] Last Admin: 06/27/17 09:10 Dose: 2.5 mg Glucagon (Glucagen Diagnostic Kit) 0 mg IM STAT PRN; Protocol PRN Reason: Hypoglycemia Protocol Heparin Sodium (Porcine) (Heparin) 5,000 units SC Q8 [facility] PRN Reason: Protocol Last Admin: 06/28/17 00:42 Dose: 5,000 units Insulin Human Regular (Humulin R) 0 units SC ACHS [facility] PRN Reason: Protocol Last Admin: 06/28/17 06:33 Dose: Not Given Lactic Acid (Lac-Hydrin 12% Lotion (225 G)) 1 applic TOP TID [facility] Last Admin: 06/27/17 17:07 Dose: 1 applic Levofloxacin (Levaquin) 750 mg PO DAILY [facility] Last Admin: 06/27/17 09:12 Dose: 750 mg Lisinopril (Zestril) 10 mg PO DAILY [facility] Last Admin: 06/27/17 12:28 Dose: 10 mg Methylprednisolone (Solu-Medrol) 60 mg IVP Q8 [facility] Last Admin: 06/28/17 00:42 Dose: 60 mg Fluticasone/Salmeterol (Advair Diskus 250/50) 1 puff IH Q12 [facility] Last Admin: 06/27/17 21:20 Dose: 1 puff - Labs Labs: 06/28/17 04:20 06/28/17 04:20 PT 13.0 Seconds (9.8-13.1) 06/28/17 04:20 INR 1.2 (0.9-1.2) 06/28/17 04:20 APTT 28.3 Seconds (25.6-37.1) 06/28/17 04:20 - Constitutional Appears: Well, Non-toxic, No Acute Distress - Head Exam Head Exam: ATRAUMATIC, NORMOCEPHALIC - Eye Exam Eye Exam: Normal appearance Pupil Exam: PERRL - ENT Exam ENT Exam: Normal Exam - Neck Exam Neck Exam: Full ROM, Normal Inspection - Respiratory Exam Respiratory Exam: Rhonchi, Wheezes. absent: Chest Wall Tenderness - Cardiovascular Exam Cardiovascular Exam: REGULAR RHYTHM, +S1, +S2. absent: JVD - GI/Abdominal Exam GI & Abdominal Exam: Soft, Hernia Additional comments: non-tender left groin hernia - Rectal Exam Rectal Exam: Deferred - Neurological Exam Neurological Exam: Alert, Awake, Oriented x3 - Psychiatric Exam Psychiatric exam: Normal Affect, Normal Mood Assessment and Plan - Assessment and Plan (Free Text) Plan: 1) SIRS - due to elevated WBC and tachycardia on admission - Sputum cx (+) for E. coli - Tachycardia normalized, initial elevation in HR possibly worsened by albuterol - c/w Levofloxacin 750mg PO (day 3) - Blood cx ordered; pt has history of pseudomonas bacteremia on last admission, D/C 05/16 -Blood cx NGTD - ID on board Dr. Alonso, await further recommendations 2) COPD exacerbation - O2 95 on RA - continue Duoneb Q4h lovely - Prednisone dose increased to 60mg IV q8h - remains afebrile - Sputum culture (+) ESBL E. coli - Pulmonary on consult Dr. Beckwith, recommends Acetylcysteine 3) Left groin mass - pt NPO today prior to CT scan - CT abd/pelvis with PO contrast: Small bilateral inguinal hernias left side of which is larger than right and contains a in unobstructed short segment of the distal descending colon and mesenteric fat. The right inguinal hernia and umbilical hernia containing small amount of fat. In situ IVC filter. Urinary bladder is incompletely distended which in part accounts for thick-walled appearance. Muscular hypertrophy may contribute. Rule out cystitis or other intrinsic wall abnormality. 4) Hx of PE and tachycardia -HR normalized at this time -IVC filter in place -Tachycardia likely 2/2 to albuterol treatment -c/w monitoring vitals 5) NIDDM2 -HgA1C 6.2 -Glipizide 2.5 PO daily -Insulin sliding scale low dose protocol -Has history of hypoglycemic episodes on previous admissions -Accucheck ACHS 6) Hypertension -continue Lisinopril 7) Psoriasis -ammonium lactate cream 12 % TOP TID 8) Lung Nodule -CT chest 02/13/2017 Paraeptal bullous emphysema. 3 mm right lower lobe nodule for which 1 year f/u is recommended. -[address] chest f/u as outpatient 9) DVT Prophylaxis -s/p IVC filter placement -Heparin 5000 SC q8h
[2017-06-28] MEDS: Fluticasone-Salmeterol 250-50mcg Diskus IH SCH ×2 (11:40→20:55)
[2017-06-28] MEDS: GlipiZIDE 2.5 mg SR Tab PO SCH (11:41)
[2017-06-28] MEDS: levoFLOXacin 750 MG TAB PO SCH (11:45)
--- NOTE | 2017-06-28 12:10 | CT ---
PROCEDURE: CT abdomen pelvis dated 06/28/2017 HISTORY: Left groin mass COMPARISON: No prior study available for comparison TECHNIQUE: Contiguous helical/transaxial images of the abdomen and pelvis. Oral contrast was administered. No IV contrast given. Coronal and Sagittal reformats generated. Radiation dose: Total exam DLP = 1 mGy-cm. This CT exam was performed using one or more of the following dose reduction techniques: Automated exposure control, adjustment of the mA and/or kV according to patient size, and/or use of iterative reconstruction technique. Radiation dose: Total exam DLP = 792.09 mGy-cm. FINDINGS: LOWER THORAX: Minor scarring changes seen in the right posteromedial lung base, right middle lobe and lingular regions. No effusion or basilar pneumothorax. Heart size within range of normal. No significant pericardial effusion. LIVER: The liver exhibits normal size measuring approximately 17 cm in CC dimension. No obvious hepatic mass collection or calcification. GALLBLADDER AND BILE DUCTS: The gallbladder appears incompletely distended likely due to nonfasting state. No obvious intraluminal gallbladder calculi. The. PANCREAS: The pancreas appears grossly unremarkable without masses collections or calcifications. No significant pancreatic ductal dilatation. SPLEEN: Spleen exhibits normal size and attenuation pattern without mass collection or calcification. ADRENALS: No adrenal masses. KIDNEYS AND URETERS: Kidneys demonstrate relatively symmetric size. No evidence of nephrolithiasis or hydronephrosis. No obvious renal masses or collections seen on this noncontrast study. BLADDER: Urinary bladder is incompletely distended which may account for thick-walled appearance. Muscular hypertrophy presumably contributes. Cystitis in a male patient less likely in absence of pertinent clinical history. Other intrinsic/invasive wall lesion not cannot be excluded. REPRODUCTIVE: Prostate gland measures approximately 3.3 cm. Prostatic calcifications are present. APPENDIX: The appendix is not seen with complete certainty however no inflammatory changes right lower quadrant of the abdomen. BOWEL: An evaluation of the bowel is somewhat limited due to incomplete opacification. The stomach is nondistended which accounts for thick-walled appearance however the possibility of a gastritis cannot be excluded. PERITONEUM: Unremarkable. No fluid collection. No free air. There is small fat containing umbilical hernia. . Bilateral inguinal hernias are present left-side of which is larger and contains a small amount of mesenteric fat and nonobstructed bowel ( a short segment of the distal descending/ proximal sigmoid colon. . The right inguinal hernia contains small amount of fat LYMPH NODES: Unremarkable. No enlarged lymph nodes. VASCULATURE: Partially calcified atherosclerotic plaque seen along the abdominal aorta and iliac arteries. . Suspect mild localized dilatation of the right anterolateral border of the distal abdominal aorta/iliac artery junction. . In situ IVC filter. BONES: No acute compression fractures no retropulsed fragments. OTHER FINDINGS: None. IMPRESSION: Small bilateral inguinal hernias left side of which is larger than right and contains a in unobstructed short segment of the distal descending colon and mesenteric fat. The right inguinal hernia and umbilical hernia containing small amount of fat. In situ IVC filter. Urinary bladder is incompletely distended which in part accounts for thick-walled appearance. Muscular hypertrophy may contribute. Rule out cystitis or other intrinsic wall abnormality. See above discussion for additional details and findings.
[2017-06-28] MEDS ORDERED: Meropenem 1 GM in Sodium Chloride 0.9% 100 ML IVPB SCH (16:15)
--- NOTE | 2017-06-28 16:25 | CP.PCM.PN ---
Subjective - Date & Time of Evaluation Date of Evaluation: 06/28/17 Time of Evaluation: 16:22 - Subjective Subjective: I D NOTE PATIENT EXAMINED ,CHART REVIEWED DISCUSSED c Objective - Vital Signs/Intake and Output Vital Signs (last 24 hours): Temp Pulse Resp BP Pulse Ox 97.5 F L 79 20 165/81 H 97 06/28/17 15:28 06/28/17 15:28 06/28/17 15:28 06/28/17 15:28 06/28/17 15:28 - Medications Medications: Current Medications Acetylcysteine (Acetylcysteine 20%) 2 ml INH RBID [facility] Last Admin: 06/28/17 07:26 Dose: 2 ml Albuterol/Ipratropium (Duoneb 3 Mg/0.5 Mg (3 Ml) Ud) 3 ml INH RQ4 [facility] Last Admin: 06/28/17 15:57 Dose: 3 ml Dextrose (Dextrose 50% Inj) 0 ml IV STAT PRN; Protocol PRN Reason: Hypoglycemia Protocol Dextrose (Glutose 15) 0 gm PO ONCE PRN; Protocol PRN Reason: Hypoglycemia Protocol Glipizide (Glucotrol Xl) 2.5 mg PO BRK [facility] Last Admin: 06/28/17 11:41 Dose: 2.5 mg Glucagon (Glucagen Diagnostic Kit) 0 mg IM STAT PRN; Protocol PRN Reason: Hypoglycemia Protocol Heparin Sodium (Porcine) (Heparin) 5,000 units SC Q8 [facility] PRN Reason: Protocol Last Admin: 06/28/17 11:41 Dose: 5,000 units Meropenem 1 gm/ Sodium (Chloride) 100 mls @ 100 mls/hr IVPB Q12H [facility] PRN Reason: Protocol Insulin Human Regular (Humulin R) 0 units SC ACHS [facility] PRN Reason: Protocol Last Admin: 06/28/17 06:33 Dose: Not Given Lactic Acid (Lac-Hydrin 12% Lotion (225 G)) 1 applic TOP TID [facility] Last Admin: 06/28/17 11:45 Dose: 1 applic Levofloxacin (Levaquin) 750 mg PO DAILY [facility] Last Admin: 06/28/17 11:45 Dose: 750 mg Lisinopril (Zestril) 10 mg PO DAILY [facility] Last Admin: 06/28/17 11:42 Dose: 10 mg Methylprednisolone (Solu-Medrol) 60 mg IVP Q8 [facility] Last Admin: 06/28/17 11:42 Dose: 60 mg Fluticasone/Salmeterol (Advair Diskus 250/50) 1 puff IH Q12 [facility] Last Admin: 06/28/17 11:40 Dose: 1 puff - Labs Labs: 06/28/17 04:20 06/28/17 04:20 PT 13.0 Seconds (9.8-13.1) 06/28/17 04:20 INR 1.2 (0.9-1.2) 06/28/17 04:20 APTT 28.3 Seconds (25.6-37.1) 06/28/17 04:20
[2017-06-28] MEDS: Meropenem 1 GM in Sodium Chloride 0.9% 100 ML IVPB SCH (20:54)
[2017-06-29] MEDS: Albuterol-Ipratrop 3 mg / 0.5 (3 ml) UD INH SCH ×6 (00:57→19:44)
--- NOTE | 2017-06-29 02:30 | CON ---
HISTORY OF PRESENT ILLNESS: The patient is a 67-year-old male, who I have seen before on multiple occasion. He has past medical history of COPD, diabetes, hypertension, and pulmonary embolus with an IVC filter. He has a history of retroperitoneal hematoma; therefore, he has not been on anticoagulation. He has history also of asthma. At this time, he was admitted with exacerbation of COPD with shortness of breath and chest pain. He has a productive cough with greenish yellow sputum, and does have chest pain every time he coughs. History of smoking, he quit 1 year ago, and he smoked prior to that 3 to 4 packs a day; also a former alcohol abuser; no history of drug use. PHYSICAL EXAMINATION: GENERAL: He is alert. VITAL SIGNS: His temperature is 99. His pulse is 122, blood pressure 147/87, respiratory rate 18 to 20, O2 sat is 96. HEENT: Within normal limits. NECK: Supple. LUNGS: He has some wheezing bilaterally. HEART: Regular sinus rhythm. ABDOMEN: Positive bowel sounds. EXTREMITIES: He has psoriatic plaques noted all over the extremities. He has some mild peripheral edema. LABORATORY DATA: White count is 14.1. Troponin is negative. Chest x-ray does not show any active disease. Creatinine is 1.2, GFR is greater than 60; blood sugars are all elevated, all over 200 except for one which is 187. Urine is essentially negative. Microbiology shows the sputum has persistent ESBL positive E. coli, becoming more resistant. On his last admission, he had the same, but he also had a positive blood culture for Pseudomonas aeruginosa. IMPRESSION: At the present time, we will be treating with steroids as previously started, and I have started him on meropenem 1 g IV piggyback q. 12 hours. I have to follow this carefully as we may create a more multidrug resistant Escherichia coli. Pankaj Alonso MD
[2017-06-29 05:41] LABS: BASO % 0.1 % (0.0-2.0); HEMATOCRIT 37.9 % (35.0-51.0); LYMPH # 0.8 K/uL (1.0-4.3); LYMPH % 7.4 % (20.0-40.0); MEAN CELL VOLUME 86.5 fl (80.0-94.0); MEAN CORPUSCULAR HGB CONC 32.4 g/dL (33.0-37.0); MEAN PLATELET VOLUME 8.6 fl (7.2-11.7); MONO # 0.8 K/uL (0.0-0.8); MONO % 7.8 % (0.0-10.0); NEUT # 8.8 K/uL (1.8-7.0); NEUT % 84.7 % (50.0-75.0); NRBC % 0.1 % (0.0-0.0); RED CELL DISTRIBUTION WIDTH 16.3 % (11.5-14.5); WHITE BLOOD COUNT 10.4 K/uL (4.8-10.8)
[2017-06-29 05:51] LABS: BLOOD UREA NITROGEN 32 mg/dl (9-20); CALCIUM 8.9 mg/dL (8.4-10.2); CARBON DIOXIDE 34 mmol/L (22-30); CHLORIDE 96 mmol/L (98-107); GFR AFRICAN-AMERICAN > 60; GLUCOSE,RANDOM 362 mg/dL (75-110); POTASSIUM 4.7 MMOL/L (3.6-5.0); SODIUM 137 mmol/l (132-148)
[2017-06-29] MEDS: Insulin Regular 100 units/ml SC SCH ×4 (06:38→21:30)
[2017-06-29] MEDS: Acetylcysteine 20% Inhal Soln (4ml) INH SCH ×2 (08:03→19:45)
[2017-06-29] MEDS: GlipiZIDE 2.5 mg SR Tab PO SCH (09:00)
[2017-06-29] MEDS: Meropenem 1 GM in Sodium Chloride 0.9% 100 ML IVPB SCH ×2 (09:00→21:00)
--- NOTE | 2017-06-29 09:04 | CP.PCM.PN ---
Subjective - Date & Time of Evaluation Date of Evaluation: 06/29/17 Time of Evaluation: 08:59 - Subjective Subjective: 67 y/o male seen at bedside this morning, eating breakfast without hesitation. Pt admits to one bout of vomiting with nausea yesterday after dinner but is currently tolerating his diet well and feeling hungry. Pt admits to persistent cough with associated chest pain. Pt states overall his shortness of breath is improving, and he feels better than when he came into the hospital. Pt also says he still feels pain in his lower abdomen and groin. Pt denies fever, chills , diarrhea or constipation. Objective - Vital Signs/Intake and Output Vital Signs (last 24 hours): Temp Pulse Resp BP Pulse Ox 98 F 73 20 156/75 H 97 06/29/17 08:29 06/29/17 08:29 06/29/17 08:29 06/29/17 08:29 06/29/17 08:29 - Medications Medications: Current Medications Acetylcysteine (Acetylcysteine 20%) 2 ml INH RBID [facility] Last Admin: 06/29/17 08:03 Dose: 2 ml Albuterol/Ipratropium (Duoneb 3 Mg/0.5 Mg (3 Ml) Ud) 3 ml INH RQ4 [facility] Last Admin: 06/29/17 08:03 Dose: 3 ml Dextrose (Dextrose 50% Inj) 0 ml IV STAT PRN; Protocol PRN Reason: Hypoglycemia Protocol Dextrose (Glutose 15) 0 gm PO ONCE PRN; Protocol PRN Reason: Hypoglycemia Protocol Glipizide (Glucotrol Xl) 2.5 mg PO BRK [facility] Last Admin: 06/28/17 11:41 Dose: 2.5 mg Glucagon (Glucagen Diagnostic Kit) 0 mg IM STAT PRN; Protocol PRN Reason: Hypoglycemia Protocol Heparin Sodium (Porcine) (Heparin) 5,000 units SC Q8 [facility] PRN Reason: Protocol Last Admin: 06/29/17 00:13 Dose: 5,000 units Meropenem 1 gm/ Sodium (Chloride) 100 mls @ 100 mls/hr IVPB Q12@0800,2000 [facility] PRN Reason: Protocol Last Admin: 06/28/17 20:54 Dose: 100 mls/hr Insulin Human Regular (Humulin R) 0 units SC ACHS [facility] PRN Reason: Protocol Last Admin: 06/29/17 06:38 Dose: 5 u Lactic Acid (Lac-Hydrin 12% Lotion (225 G)) 1 applic TOP TID [facility] Last Admin: 06/28/17 18:44 Dose: 1 applic Levofloxacin (Levaquin) 750 mg PO DAILY [facility] Last Admin: 06/28/17 11:45 Dose: 750 mg Lisinopril (Zestril) 10 mg PO DAILY [facility] Last Admin: 06/28/17 11:42 Dose: 10 mg Methylprednisolone (Solu-Medrol) 60 mg IVP Q8 [facility] Last Admin: 06/29/17 00:13 Dose: 60 mg Fluticasone/Salmeterol (Advair Diskus 250/50) 1 puff IH Q12 [facility] Last Admin: 06/28/17 20:55 Dose: 1 puff - Labs Labs: 06/29/17 04:20 06/29/17 04:20 PT 13.0 Seconds (9.8-13.1) 06/28/17 04:20 INR 1.2 (0.9-1.2) 06/28/17 04:20 APTT 28.3 Seconds (25.6-37.1) 06/28/17 04:20 - Constitutional Appears: Well, Non-toxic, No Acute Distress - Head Exam Head Exam: ATRAUMATIC, NORMOCEPHALIC - Eye Exam Eye Exam: PERRL Pupil Exam: PERRL - ENT Exam ENT Exam: Mucous Membranes Moist, Normal Exam - Neck Exam Neck Exam: Full ROM, Normal Inspection - Respiratory Exam Respiratory Exam: Rales, Rhonchi, Wheezes. absent: Respiratory Distress - Cardiovascular Exam Cardiovascular Exam: REGULAR RHYTHM, +S1, +S2. absent: JVD - GI/Abdominal Exam GI & Abdominal Exam: Soft, Tenderness, Hernia, Normal Bowel Sounds - Rectal Exam Rectal Exam: Deferred - Extremities Exam Extremities Exam: Normal Capillary Refill. absent: Calf Tenderness - Neurological Exam Neurological Exam: Alert, Awake, Oriented x3 - Psychiatric Exam Psychiatric exam: Normal Affect, Normal Mood - Skin Skin Exam: Dry, Intact Additional comments: lichenification to bilateral lower extremities psoriatic plaques noted to extensor surface of all 4 extremities Assessment and Plan - Assessment and Plan (Free Text) Plan: 1) SIRS - due to elevated WBC and tachycardia on admission - WBC decreasing, now at 10.4 - Sputum cx (+) for E. coli - Tachycardia normalized, initial elevation in HR possibly worsened by albuterol - c/w Levofloxacin 750mg PO (day 4) - ID on board Dr. Alonso - Meropenem added for likely drug resistant E.coli in sputum - Blood cx NGTD; pt has history of pseudomonas bacteremia on last admission, D/ C 05/16 2) COPD exacerbation - O2 95 on RA - continue Duoneb Q4h lovely - Prednisone dose tapered down to 60mg q12 - pt remains afebrile - Sputum culture (+) ESBL E. coli - Pulmonary on consult Dr. Beckwith, recommends Acetylcysteine 3) Left groin mass - pt NPO today prior to CT scan - CT abd/pelvis with PO contrast: Small bilateral inguinal hernias left side of which is larger than right and contains a in unobstructed short segment of the distal descending colon and mesenteric fat. The right inguinal hernia and umbilical hernia containing small amount of fat. In situ IVC filter. Urinary bladder is incompletely distended which in part accounts for thick-walled appearance. Muscular hypertrophy may contribute. Rule out cystitis or other intrinsic wall abnormality. -surgery on consult, to consider doing outpatient surgery 4) Hx of PE and tachycardia -HR normalized at this time -IVC filter in place -Tachycardia likely 2/2 to albuterol treatment -c/w monitoring vitals 5) NIDDM2 -HgA1C 6.2 -Glipizide 2.5 PO daily -Insulin sliding scale low dose protocol -Has history of hypoglycemic episodes on previous admissions -Accucheck ACHS 6) Hypertension -Lisinopril dose increased -continue to monitor 7) Psoriasis -ammonium lactate cream 12 % TOP TID 8) Lung Nodule -CT chest 02/13/2017 Paraeptal bullous emphysema. 3 mm right lower lobe nodule for which 1 year f/u is recommended. -[address] chest f/u as outpatient 9) DVT Prophylaxis -s/p IVC filter placement -Heparin 5000 SC q8h
--- NOTE | 2017-06-29 09:09 | CP.PCM.PN ---
<Celso Sweeney - Last Filed: 06/29/17 09:17> Subjective - Date & Time of Evaluation Date of Evaluation: 06/29/17 Time of Evaluation: 09:08 - Subjective Subjective: General Surgery Progress Note for Dr. Zuleta This patient was seen and examined this AM at bedside. Patient is currently in a contact precaution room due to ESBL in his sputum. Otherwise the patient describes mild abdominal pain in a belt like distribution. He reports subjective fevers overnight with no recorded fevers. Denies any nausea vomiting or diarrhea. Objective - Vital Signs/Intake and Output Vital Signs (last 24 hours): Temp Pulse Resp BP Pulse Ox 98 F 73 20 156/75 H 97 06/29/17 08:29 06/29/17 08:29 06/29/17 08:29 06/29/17 08:29 06/29/17 08:29 - Medications Medications: Current Medications Acetylcysteine (Acetylcysteine 20%) 2 ml INH RBID [facility] Last Admin: 06/29/17 08:03 Dose: 2 ml Albuterol/Ipratropium (Duoneb 3 Mg/0.5 Mg (3 Ml) Ud) 3 ml INH RQ4 [facility] Last Admin: 06/29/17 08:03 Dose: 3 ml Dextrose (Dextrose 50% Inj) 0 ml IV STAT PRN; Protocol PRN Reason: Hypoglycemia Protocol Dextrose (Glutose 15) 0 gm PO ONCE PRN; Protocol PRN Reason: Hypoglycemia Protocol Glipizide (Glucotrol Xl) 2.5 mg PO BRK [facility] Last Admin: 06/28/17 11:41 Dose: 2.5 mg Glucagon (Glucagen Diagnostic Kit) 0 mg IM STAT PRN; Protocol PRN Reason: Hypoglycemia Protocol Heparin Sodium (Porcine) (Heparin) 5,000 units SC Q8 [facility] PRN Reason: Protocol Last Admin: 06/29/17 00:13 Dose: 5,000 units Meropenem 1 gm/ Sodium (Chloride) 100 mls @ 100 mls/hr IVPB Q12@0800,2000 [facility] PRN Reason: Protocol Last Admin: 06/28/17 20:54 Dose: 100 mls/hr Insulin Human Regular (Humulin R) 0 units SC ACHS [facility] PRN Reason: Protocol Last Admin: 06/29/17 06:38 Dose: 5 u Lactic Acid (Lac-Hydrin 12% Lotion (225 G)) 1 applic TOP TID [facility] Last Admin: 06/28/17 18:44 Dose: 1 applic Levofloxacin (Levaquin) 750 mg PO DAILY [facility] Last Admin: 06/28/17 11:45 Dose: 750 mg Lisinopril (Zestril) 10 mg PO DAILY [facility] Last Admin: 06/28/17 11:42 Dose: 10 mg Methylprednisolone (Solu-Medrol) 60 mg IVP Q12 [facility] Fluticasone/Salmeterol (Advair Diskus 250/50) 1 puff IH Q12 [facility] Last Admin: 06/28/17 20:55 Dose: 1 puff - Labs Labs: 06/29/17 04:20 06/29/17 04:20 PT 13.0 Seconds (9.8-13.1) 06/28/17 04:20 INR 1.2 (0.9-1.2) 06/28/17 04:20 APTT 28.3 Seconds (25.6-37.1) 06/28/17 04:20 - Constitutional Appears: Non-toxic, No Acute Distress - Head Exam Head Exam: ATRAUMATIC, NORMOCEPHALIC - Eye Exam Eye Exam: EOMI - ENT Exam ENT Exam: Mucous Membranes Moist - Respiratory Exam Respiratory Exam: NORMAL BREATHING PATTERN - Cardiovascular Exam Cardiovascular Exam: REGULAR RHYTHM, +S1, +S2 - GI/Abdominal Exam GI & Abdominal Exam: Soft. absent: Firm, Guarding, Rigid, Tenderness - Neurological Exam Neurological Exam: Alert, Awake - Psychiatric Exam Psychiatric exam: Normal Affect, Normal Mood - Skin Skin Exam: Dry, Intact Assessment and Plan - Assessment and Plan (Free Text) Assessment: This is a 67M admitted for a COPD exacerbation who is ESBL positive in his sputum, who also has bilateral inguinal hernias and an umbilical hernia. - Will consider outpatient surgery - Recommend pulmonary workup including pulmonary function testing, Chest CT, ABG D/W Dr. Song Sweeney PGY2 <Benigno Zuleta - Last Filed: 07/01/17 17:46> Objective - Vital Signs/Intake and Output Vital Signs (last 24 hours): Temp Pulse Resp BP Pulse Ox 97 F L 81 20 152/57 H 98 07/01/17 15:58 07/01/17 15:58 07/01/17 15:58 07/01/17 15:58 07/01/17 15:58 - Medications Medications: Current Medications Acetylcysteine (Acetylcysteine 20%) 2 ml INH RBID [facility] Last Admin: 07/01/17 08:07 Dose: 2 ml Albuterol/Ipratropium (Duoneb 3 Mg/0.5 Mg (3 Ml) Ud) 3 ml INH RQ4 [facility] Last Admin: 07/01/17 15:38 Dose: 3 ml Dextrose (Dextrose 50% Inj) 0 ml IV STAT PRN; Protocol PRN Reason: Hypoglycemia Protocol Dextrose (Glutose 15) 0 gm PO ONCE PRN; Protocol PRN Reason: Hypoglycemia Protocol Glipizide (Glucotrol Xl) 2.5 mg PO BRK [facility] Last Admin: 07/01/17 10:08 Dose: 2.5 mg Glucagon (Glucagen Diagnostic Kit) 0 mg IM STAT PRN; Protocol PRN Reason: Hypoglycemia Protocol Heparin Sodium (Porcine) (Heparin) 5,000 units SC Q8 [facility] PRN Reason: Protocol Last Admin: 07/01/17 16:21 Dose: 5,000 units Meropenem 1 gm/ Sodium (Chloride) 100 mls @ 100 mls/hr IVPB Q12@0800,2000 [facility] PRN Reason: Protocol Last Admin: 07/01/17 10:08 Dose: 100 mls/hr Insulin Detemir (Levemir) 10 units SC HS [facility] Last Admin: 06/30/17 22:51 Dose: 10 units Insulin Human Regular (Humulin R) 0 units SC ACHS [facility] PRN Reason: Protocol Last Admin: 07/01/17 16:24 Dose: 4 units Lactic Acid (Lac-Hydrin 12% Lotion (225 G)) 1 applic TOP TID [facility] Last Admin: 07/01/17 16:25 Dose: 1 applic Levofloxacin (Levaquin) 750 mg PO DAILY [facility] Last Admin: 07/01/17 10:07 Dose: 750 mg Lisinopril (Zestril) 20 mg PO DAILY [facility] Last Admin: 07/01/17 10:07 Dose: 20 mg Methylprednisolone (Solu-Medrol) 40 mg IVP Q12 [facility] Last Admin: 07/01/17 10:07 Dose: 40 mg Promethazine HCl/Codeine (Phenergan/Codeine Oral Syrup) 5 ml PO Q6 PRN PRN Reason: Cough Fluticasone/Salmeterol (Advair Diskus 250/50) 1 puff IH Q12 [facility] Last Admin: 07/01/17 10:06 Dose: 1 puff - Labs Labs: 07/01/17 04:40 07/01/17 04:40 PT 13.0 Seconds (9.8-13.1) 06/28/17 04:20 INR 1.2 (0.9-1.2) 06/28/17 04:20 APTT 28.3 Seconds (25.6-37.1) 06/28/17 04:20 Attending/Attestation - Attestation I have personally seen and examined this patient.: Yes I have fully participated in the care of the patient.: Yes I have reviewed all pertinent clinical information, including history, physical exam and plan: Yes Notes (Text): Pt was seen and examined at bedside Agree with above note and assessment Pt with COPD exacerbation B/L inguinal hernia repair as out pt Please get CT scan of chest, ABG and PFT as preop work up Plan d.w primary team Plan d.w pt in detail f/u as out pt
--- NOTE | 2017-06-29 09:10 | CP.PCM.PN ---
Subjective - Date & Time of Evaluation Date of Evaluation: 06/29/17 Time of Evaluation: 09:11 - Subjective Subjective: CONTINUES TO COUGH SOB LESS Objective - Vital Signs/Intake and Output Vital Signs (last 24 hours): Temp Pulse Resp BP Pulse Ox 98 F 73 20 156/75 H 97 06/29/17 08:29 06/29/17 08:29 06/29/17 08:29 06/29/17 08:29 06/29/17 08:29 - Medications Medications: Current Medications Acetylcysteine (Acetylcysteine 20%) 2 ml INH RBID [facility] Last Admin: 06/29/17 08:03 Dose: 2 ml Albuterol/Ipratropium (Duoneb 3 Mg/0.5 Mg (3 Ml) Ud) 3 ml INH RQ4 [facility] Last Admin: 06/29/17 08:03 Dose: 3 ml Dextrose (Dextrose 50% Inj) 0 ml IV STAT PRN; Protocol PRN Reason: Hypoglycemia Protocol Dextrose (Glutose 15) 0 gm PO ONCE PRN; Protocol PRN Reason: Hypoglycemia Protocol Glipizide (Glucotrol Xl) 2.5 mg PO BRK [facility] Last Admin: 06/28/17 11:41 Dose: 2.5 mg Glucagon (Glucagen Diagnostic Kit) 0 mg IM STAT PRN; Protocol PRN Reason: Hypoglycemia Protocol Heparin Sodium (Porcine) (Heparin) 5,000 units SC Q8 [facility] PRN Reason: Protocol Last Admin: 06/29/17 00:13 Dose: 5,000 units Meropenem 1 gm/ Sodium (Chloride) 100 mls @ 100 mls/hr IVPB Q12@0800,2000 [facility] PRN Reason: Protocol Last Admin: 06/28/17 20:54 Dose: 100 mls/hr Insulin Human Regular (Humulin R) 0 units SC ACHS [facility] PRN Reason: Protocol Last Admin: 06/29/17 06:38 Dose: 5 u Lactic Acid (Lac-Hydrin 12% Lotion (225 G)) 1 applic TOP TID [facility] Last Admin: 06/28/17 18:44 Dose: 1 applic Levofloxacin (Levaquin) 750 mg PO DAILY [facility] Last Admin: 06/28/17 11:45 Dose: 750 mg Lisinopril (Zestril) 10 mg PO DAILY [facility] Last Admin: 06/28/17 11:42 Dose: 10 mg Methylprednisolone (Solu-Medrol) 60 mg IVP Q12 [facility] Fluticasone/Salmeterol (Advair Diskus 250/50) 1 puff IH Q12 [facility] Last Admin: 06/28/17 20:55 Dose: 1 puff - Labs Labs: 06/29/17 04:20 06/29/17 04:20 PT 13.0 Seconds (9.8-13.1) 06/28/17 04:20 INR 1.2 (0.9-1.2) 06/28/17 04:20 APTT 28.3 Seconds (25.6-37.1) 06/28/17 04:20 - Constitutional Appears: Chronically Ill - Head Exam Head Exam: ATRAUMATIC, NORMAL INSPECTION, NORMOCEPHALIC - Eye Exam Eye Exam: EOMI, Normal appearance, PERRL Pupil Exam: NORMAL ACCOMODATION, PERRL - ENT Exam ENT Exam: Mucous Membranes Moist, Normal Exam - Neck Exam Neck Exam: Full ROM, Normal Inspection. absent: Lymphadenopathy - Respiratory Exam Respiratory Exam: Decreased Breath Sounds, Rales, Wheezes, NORMAL BREATHING PATTERN - Cardiovascular Exam Cardiovascular Exam: REGULAR RHYTHM, +S1, +S2. absent: Murmur - GI/Abdominal Exam GI & Abdominal Exam: Soft, Normal Bowel Sounds. absent: Tenderness - Rectal Exam Rectal Exam: NORMAL INSPECTION - Extremities Exam Extremities Exam: Full ROM, Normal Capillary Refill, Normal Inspection. absent : Joint Swelling, Pedal Edema - Back Exam Back Exam: NORMAL INSPECTION - Neurological Exam Neurological Exam: Alert, Awake, CN II-XII Intact, Normal Gait, Oriented x3 - Psychiatric Exam Psychiatric exam: Normal Affect, Normal Mood - Skin Skin Exam: Dry, Rash Assessment and Plan - Assessment and Plan (Free Text) Assessment: COPD EXAC URI PSOARIASIS Plan: CONTINUE PRESENT RX
[2017-06-29] MEDS: Fluticasone-Salmeterol 250-50mcg Diskus IH SCH ×3 (10:06→21:17)
[2017-06-29] MEDS: levoFLOXacin 750 MG TAB PO SCH (10:09)
[2017-06-29] MEDS ORDERED: Insulin Detemir 100 Units/ml Inj SC SCH (22:00)
[2017-06-30] MEDS: Albuterol-Ipratrop 3 mg / 0.5 (3 ml) UD INH SCH ×6 (00:47→19:06)
[2017-06-30 05:56] LABS: BASO % 0.1 % (0.0-2.0); HEMATOCRIT 39.5 % (35.0-51.0); LYMPH # 1.1 K/uL (1.0-4.3); MEAN CELL VOLUME 86.5 fl (80.0-94.0); MEAN CORPUSCULAR HGB CONC 32.4 g/dL (33.0-37.0); MEAN PLATELET VOLUME 8.7 fl (7.2-11.7); MONO # 0.8 K/uL (0.0-0.8); MONO % 9.3 % (0.0-10.0); NEUT # 6.8 K/uL (1.8-7.0); NEUT % 77.6 % (50.0-75.0); NRBC % 0.2 % (0.0-0.0); RED CELL DISTRIBUTION WIDTH 16.2 % (11.5-14.5); WHITE BLOOD COUNT 8.7 K/uL (4.8-10.8)
[2017-06-30 06:24] LABS: BLOOD UREA NITROGEN 34 mg/dl (9-20); CALCIUM 8.5 mg/dL (8.4-10.2); CARBON DIOXIDE 33 mmol/L (22-30); CHLORIDE 98 mmol/L (98-107); GFR AFRICAN-AMERICAN > 60; GLUCOSE,RANDOM 385 mg/dL (75-110); POTASSIUM 4.4 MMOL/L (3.6-5.0); SODIUM 136 mmol/l (132-148)
[2017-06-30] MEDS: Insulin Regular 100 units/ml SC SCH ×4 (06:36→22:49)
[2017-06-30] MEDS: Acetylcysteine 20% Inhal Soln (4ml) INH SCH ×2 (07:56→19:06)
--- NOTE | 2017-06-30 08:32 | CP.PCM.PN ---
Subjective - Date & Time of Evaluation Date of Evaluation: 06/30/17 Time of Evaluation: 08:32 - Subjective Subjective: 67 y/o male seen at bedside this morning, resting in bedside chair. Pt says he feels better overall today and is coughing less. Pt says he slept well and did not feel as short of breath as the previous nights. Pt admits to one bout of green-yellow sputum after dinner yesterday but denies any nausea or vomiting over the last 24 hours. Pt denies diarrhea, constipation or abdominal pain, but admits to groin pain when he urinates or presses on it. Pt denies F/C. Objective - Vital Signs/Intake and Output Vital Signs (last 24 hours): Temp Pulse Resp BP Pulse Ox 97.2 F L 78 18 145/83 97 06/30/17 08:02 06/30/17 08:02 06/30/17 08:02 06/30/17 08:02 06/30/17 08:02 - Medications Medications: Current Medications Acetylcysteine (Acetylcysteine 20%) 2 ml INH RBID [facility] Last Admin: 06/30/17 07:56 Dose: 2 ml Albuterol/Ipratropium (Duoneb 3 Mg/0.5 Mg (3 Ml) Ud) 3 ml INH RQ4 [facility] Last Admin: 06/30/17 07:57 Dose: 3 ml Dextrose (Dextrose 50% Inj) 0 ml IV STAT PRN; Protocol PRN Reason: Hypoglycemia Protocol Dextrose (Glutose 15) 0 gm PO ONCE PRN; Protocol PRN Reason: Hypoglycemia Protocol Glipizide (Glucotrol Xl) 2.5 mg PO BRK [facility] Last Admin: 06/29/17 09:00 Dose: 2.5 mg Glucagon (Glucagen Diagnostic Kit) 0 mg IM STAT PRN; Protocol PRN Reason: Hypoglycemia Protocol Heparin Sodium (Porcine) (Heparin) 5,000 units SC Q8 [facility] PRN Reason: Protocol Last Admin: 06/30/17 00:54 Dose: 5,000 units Meropenem 1 gm/ Sodium (Chloride) 100 mls @ 100 mls/hr IVPB Q12@0800,2000 [facility] PRN Reason: Protocol Last Admin: 06/29/17 21:00 Dose: 100 mls/hr Insulin Detemir (Levemir) 5 units SC HS [facility] Last Admin: 06/29/17 21:29 Dose: 5 u Insulin Human Regular (Humulin R) 0 units SC ACHS [facility] PRN Reason: Protocol Last Admin: 06/30/17 06:36 Dose: 4 u Lactic Acid (Lac-Hydrin 12% Lotion (225 G)) 1 applic TOP TID [facility] Last Admin: 06/29/17 17:34 Dose: 1 applic Levofloxacin (Levaquin) 750 mg PO DAILY [facility] Last Admin: 06/29/17 10:09 Dose: 750 mg Lisinopril (Zestril) 20 mg PO DAILY [facility] Methylprednisolone (Solu-Medrol) 60 mg IVP Q12 [facility] Last Admin: 06/29/17 21:11 Dose: 60 mg Fluticasone/Salmeterol (Advair Diskus 250/50) 1 puff IH Q12 [facility] Last Admin: 06/29/17 21:17 Dose: 1 puff - Labs Labs: 06/30/17 04:30 06/30/17 04:30 PT 13.0 Seconds (9.8-13.1) 06/28/17 04:20 INR 1.2 (0.9-1.2) 06/28/17 04:20 APTT 28.3 Seconds (25.6-37.1) 06/28/17 04:20 - Constitutional Appears: Well, Non-toxic, No Acute Distress - Head Exam Head Exam: ATRAUMATIC, NORMOCEPHALIC - Eye Exam Eye Exam: Normal appearance Pupil Exam: NORMAL ACCOMODATION, PERRL - ENT Exam ENT Exam: Mucous Membranes Moist, Normal Exam - Neck Exam Neck Exam: Full ROM, Normal Inspection. absent: Tenderness - Respiratory Exam Respiratory Exam: Rhonchi, Wheezes. absent: Chest Wall Tenderness, Respiratory Distress - Cardiovascular Exam Cardiovascular Exam: REGULAR RHYTHM, +S1, +S2. absent: JVD - GI/Abdominal Exam GI & Abdominal Exam: Soft, Normal Bowel Sounds - Rectal Exam Rectal Exam: Deferred - Extremities Exam Extremities Exam: Normal Capillary Refill, Normal Inspection. absent: Calf Tenderness - Neurological Exam Neurological Exam: Alert, Awake, Oriented x3 - Psychiatric Exam Psychiatric exam: Normal Affect, Normal Mood - Skin Skin Exam: Dry, Intact, Normal Color Additional comments: psoriatic plaques to all 4 extremities at extensor surfaces chronic lichenification noted to bilateral lower extremities Assessment and Plan - Assessment and Plan (Free Text) Assessment: 1) SIRS - due to elevated WBC and tachycardia on admission - WBC decreasing, now at 8.7 - Sputum cx (+) for E. coli - Tachycardia normalized, initial elevation in HR possibly worsened by albuterol - c/w Levofloxacin 750mg PO (day 5) - ID on board Dr. Alonso - Meropenem added for likely drug resistant E.coli in sputum - Blood cx NGTD; pt has history of pseudomonas bacteremia on last admission, D/ C 05/16 2) COPD exacerbation - O2 97 on RA - continue Duoneb Q4h lovely - Prednisone dose tapered down to 60mg q12 - pt remains afebrile - Sputum culture (+) ESBL E. coli - new sputum culture ordered today - Pulmonary on consult Dr. Beckwith, recommends Acetylcysteine -await further recs 3) Left groin mass - CT abd/pelvis with PO contrast: Small bilateral inguinal hernias left side of which is larger than right and contains a in unobstructed short segment of the distal descending colon and mesenteric fat. The right inguinal hernia and umbilical hernia containing small amount of fat. In situ IVC filter. Urinary bladder is incompletely distended which in part accounts for thick-walled appearance. Muscular hypertrophy may contribute. Rule out cystitis or other intrinsic wall abnormality. -surgery on consult, to consider doing outpatient surgery 4) Hx of PE and tachycardia -HR normalized at this time -IVC filter in place -Tachycardia likely 2/2 to albuterol treatment -c/w monitoring vitals 5) NIDDM2 -HgA1C 6.2 -Glipizide 2.5 PO daily -Insulin coverage scale adjusted to medium dose protocol for better glycemic control -low dose Levemir added yesterday due to hyperglycemia from steroids -Has history of hypoglycemic episodes on previous admissions -Accucheck ACHS 6) Hypertension -Lisinopril dose increased -continue to monitor 7) Psoriasis -ammonium lactate cream 12 % TOP TID 8) Lung Nodule -CT chest 02/13/2017 Paraeptal bullous emphysema. 3 mm right lower lobe nodule for which 1 year f/u is recommended. -[address] chest f/u as outpatient 9) DVT Prophylaxis -s/p IVC filter placement -Heparin 5000 SC q8h
[2017-06-30] MEDS: GlipiZIDE 2.5 mg SR Tab PO SCH (09:00)
[2017-06-30] MEDS: Fluticasone-Salmeterol 250-50mcg Diskus IH SCH ×2 (09:13→20:38)
[2017-06-30] MEDS: levoFLOXacin 750 MG TAB PO SCH (09:14)
[2017-06-30] MEDS: Meropenem 1 GM in Sodium Chloride 0.9% 100 ML IVPB SCH ×2 (09:14→20:39)
[2017-06-30] MEDS ORDERED: Sodium Chloride 3% for Inhalation 4 ML VIAL.NEB IH PRN (10:18)
--- NOTE | 2017-06-30 10:40 | CP.PCM.PN ---
Subjective - Date & Time of Evaluation Date of Evaluation: 06/30/17 Time of Evaluation: 10:40 - Subjective Subjective: continues to have productive cough and shortness of breath Objective - Vital Signs/Intake and Output Vital Signs (last 24 hours): Temp Pulse Resp BP Pulse Ox 97.2 F L 78 18 145/83 97 06/30/17 08:02 06/30/17 09:15 06/30/17 08:02 06/30/17 09:15 06/30/17 08:02 - Medications Medications: Current Medications Acetylcysteine (Acetylcysteine 20%) 2 ml INH RBID [facility] Last Admin: 06/30/17 07:56 Dose: 2 ml Albuterol/Ipratropium (Duoneb 3 Mg/0.5 Mg (3 Ml) Ud) 3 ml INH RQ4 [facility] Last Admin: 06/30/17 07:57 Dose: 3 ml Dextrose (Dextrose 50% Inj) 0 ml IV STAT PRN; Protocol PRN Reason: Hypoglycemia Protocol Dextrose (Glutose 15) 0 gm PO ONCE PRN; Protocol PRN Reason: Hypoglycemia Protocol Glipizide (Glucotrol Xl) 2.5 mg PO BRK [facility] Last Admin: 06/30/17 09:00 Dose: 2.5 mg Glucagon (Glucagen Diagnostic Kit) 0 mg IM STAT PRN; Protocol PRN Reason: Hypoglycemia Protocol Heparin Sodium (Porcine) (Heparin) 5,000 units SC Q8 [facility] PRN Reason: Protocol Last Admin: 06/30/17 09:14 Dose: 5,000 units Meropenem 1 gm/ Sodium (Chloride) 100 mls @ 100 mls/hr IVPB Q12@0800,2000 [facility] PRN Reason: Protocol Last Admin: 06/30/17 09:14 Dose: 100 mls/hr Insulin Detemir (Levemir) 5 units SC HS [facility] Last Admin: 06/29/17 21:29 Dose: 5 u Insulin Human Regular (Humulin R) 0 units SC ACHS [facility] PRN Reason: Protocol Lactic Acid (Lac-Hydrin 12% Lotion (225 G)) 1 applic TOP TID [facility] Last Admin: 06/30/17 09:18 Dose: 1 applic Levofloxacin (Levaquin) 750 mg PO DAILY [facility] Last Admin: 06/30/17 09:14 Dose: 750 mg Lisinopril (Zestril) 20 mg PO DAILY [facility] Last Admin: 06/30/17 09:15 Dose: 20 mg Methylprednisolone (Solu-Medrol) 60 mg IVP Q12 [facility] Last Admin: 06/30/17 09:15 Dose: 60 mg Fluticasone/Salmeterol (Advair Diskus 250/50) 1 puff IH Q12 [facility] Last Admin: 06/30/17 09:13 Dose: 1 puff - Labs Labs: 06/30/17 04:30 06/30/17 04:30 PT 13.0 Seconds (9.8-13.1) 06/28/17 04:20 INR 1.2 (0.9-1.2) 06/28/17 04:20 APTT 28.3 Seconds (25.6-37.1) 06/28/17 04:20 - Constitutional Appears: Chronically Ill - Head Exam Head Exam: ATRAUMATIC, NORMAL INSPECTION, NORMOCEPHALIC - Eye Exam Eye Exam: EOMI, Normal appearance, PERRL Pupil Exam: NORMAL ACCOMODATION, PERRL - ENT Exam ENT Exam: Mucous Membranes Moist, Normal Exam - Neck Exam Neck Exam: Full ROM, Normal Inspection. absent: Lymphadenopathy - Respiratory Exam Respiratory Exam: Decreased Breath Sounds, Rales, Wheezes, NORMAL BREATHING PATTERN - Cardiovascular Exam Cardiovascular Exam: REGULAR RHYTHM, +S1, +S2. absent: Murmur - GI/Abdominal Exam GI & Abdominal Exam: Soft, Normal Bowel Sounds. absent: Tenderness - Rectal Exam Rectal Exam: NORMAL INSPECTION - Extremities Exam Extremities Exam: Full ROM, Normal Capillary Refill, Normal Inspection. absent : Joint Swelling, Pedal Edema - Back Exam Back Exam: NORMAL INSPECTION - Neurological Exam Neurological Exam: Alert, Awake, CN II-XII Intact, Normal Gait, Oriented x3 - Psychiatric Exam Psychiatric exam: Normal Affect, Normal Mood - Skin Skin Exam: Dry, Rash Assessment and Plan - Assessment and Plan (Free Text) Assessment: copd exac uri psoariasis Plan: continue current rx
[2017-06-30] MEDS: Sodium Chloride 0.9% 1,000 ML IV SCH ×2 (17:22→18:36)
--- NOTE | 2017-06-30 17:29 | CT ---
PROCEDURE: CT Chest without contrast HISTORY: Preop. Exacerbation of COPD. COMPARISON: 06/25/2017 two-view chest TECHNIQUE: Contiguous axial images were obtained through the chest without intravenous contrast enhancement. Sagittal and coronal reconstructions were performed. Radiation dose (DLP): 731.73 mGy-cm. This CT exam was performed using one or more of the following dose reduction techniques: Automated exposure control, adjustment of the mA and/or kV according to patient size, and/or use of iterative reconstruction technique. FINDINGS: LUNGS: Scarring at the lung bases. Hyperinflation. Evidence of centrilobular emphysematous change primarily in the apices right greater than left. MEDIASTINUM: Unremarkable thoracic aorta. No aneurysm. Normal sized heart. Dilated main pulmonary artery 3.3 cm consistent with pulmonary arterial hypertension. No lymphadenopathy. PLEURA: No pleural fluid. No pneumothorax. BONES: No fracture. No destructive lesion. UPPER ABDOMEN: Grossly unremarkable. OTHER FINDINGS: None. IMPRESSION: No active pulmonary disease. Emphysematous changes identified. Dilated main pulmonary artery consistent with pulmonary arterial hypertension.
[2017-06-30 18:37] LABS: BLOOD UREA NITROGEN 30 mg/dl (9-20); CALCIUM 8.6 mg/dL (8.4-10.2); CARBON DIOXIDE 31 mmol/L (22-30); CHLORIDE 98 mmol/L (98-107); GFR AFRICAN-AMERICAN > 60; POTASSIUM 4.1 MMOL/L (3.6-5.0); SODIUM 135 mmol/l (132-148)
[2017-06-30 18:41] LABS: GLUCOSE,RANDOM 410 mg/dL (75-110)
[2017-06-30] MEDS: MethylPREDNISolone 40 mg Vial IVP SCH (20:40)
[2017-06-30] MEDS ORDERED: Insulin Detemir 100 Units/ml Inj SC SCH (22:00)
[2017-06-30] MEDS: Insulin Detemir 100 Units/ml Inj SC SCH (22:51)
[2017-07-01] MEDS: Albuterol-Ipratrop 3 mg / 0.5 (3 ml) UD INH SCH ×7 (00:14→23:48)
[2017-07-01 02:30] LABS: RBC URINE 2 /hpf (0-3); URINE BILIRUBIN NEGATIVE (NEGATIVE); URINE BLOOD NEGATIVE (NEGATIVE); URINE COLOR STRAW (YELLOW); URINE GLUCOSE (UA) >=500 mg/dL (Normal); URINE KETONE NEGATIVE (NEGATIVE); URINE LEUKOCYTE ESTERASE NEG Leu/uL (Negative); URINE PROTEIN NEGATIVE (NEGATIVE); URINE UROBILINOGEN 0.2-1.0 mg/dL (0.2-1.0); WBC URINE < 1 /hpf (0-5)
[2017-07-01 05:41] LABS: BASO % 0.2 % (0.0-2.0); EOS % 0.1 % (0.0-4.0); HEMATOCRIT 37.8 % (35.0-51.0); LYMPH # 1.9 K/uL (1.0-4.3); LYMPH % 13.5 % (20.0-40.0); MEAN CORPUSCULAR HGB CONC 32.6 g/dL (33.0-37.0); MEAN PLATELET VOLUME 8.5 fl (7.2-11.7); MONO # 1.6 K/uL (0.0-0.8); MONO % 11.2 % (0.0-10.0); NEUT # 10.6 K/uL (1.8-7.0); NRBC % 0.2 % (0.0-0.0); WHITE BLOOD COUNT 14.1 K/uL (4.8-10.8)
[2017-07-01 05:51] LABS: BLOOD UREA NITROGEN 29 mg/dl (9-20); CALCIUM 8.7 mg/dL (8.4-10.2); CARBON DIOXIDE 32 mmol/L (22-30); CHLORIDE 99 mmol/L (98-107); GFR AFRICAN-AMERICAN > 60; GLUCOSE,RANDOM 261 mg/dL (75-110); POTASSIUM 4.5 MMOL/L (3.6-5.0); SODIUM 136 mmol/l (132-148)
[2017-07-01] MEDS: Insulin Regular 100 units/ml SC SCH ×4 (06:56→22:49)
[2017-07-01] MEDS: Acetylcysteine 20% Inhal Soln (4ml) INH SCH ×2 (08:07→20:16)
--- NOTE | 2017-07-01 09:15 | CP.PCM.PN ---
Subjective - Date & Time of Evaluation Date of Evaluation: 07/01/17 Time of Evaluation: 09:15 - Subjective Subjective: 67 y/o male seen this morning resting comfortably in bed. Pt says he slept poorly last night as his breathing was irregular and switching from slow to fast , back and forth. Pt says he was coughing up sputum last night that is now brown and white in appearance as compared to green-yellow on initial admission. Pt says his chest pain has decreased slightly. Pt admits to feeling nauseous and having one episode of non bloody vomiting after dinner last night. Pt also states his groin and lower abdomen are very tender, and cause him pain when he urinates or presses on it. Pt denies headache, fever, or chills. Objective - Vital Signs/Intake and Output Vital Signs (last 24 hours): Temp Pulse Resp BP Pulse Ox 97.7 F 72 20 135/69 95 07/01/17 08:09 07/01/17 08:09 07/01/17 08:09 07/01/17 08:09 07/01/17 08:09 - Medications Medications: Current Medications Acetylcysteine (Acetylcysteine 20%) 2 ml INH RBID [facility] Last Admin: 07/01/17 08:07 Dose: 2 ml Albuterol/Ipratropium (Duoneb 3 Mg/0.5 Mg (3 Ml) Ud) 3 ml INH RQ4 [facility] Last Admin: 07/01/17 08:07 Dose: 3 ml Dextrose (Dextrose 50% Inj) 0 ml IV STAT PRN; Protocol PRN Reason: Hypoglycemia Protocol Dextrose (Glutose 15) 0 gm PO ONCE PRN; Protocol PRN Reason: Hypoglycemia Protocol Glipizide (Glucotrol Xl) 2.5 mg PO BRK [facility] Last Admin: 06/30/17 09:00 Dose: 2.5 mg Glucagon (Glucagen Diagnostic Kit) 0 mg IM STAT PRN; Protocol PRN Reason: Hypoglycemia Protocol Heparin Sodium (Porcine) (Heparin) 5,000 units SC Q8 [facility] PRN Reason: Protocol Last Admin: 07/01/17 00:48 Dose: 5,000 units Meropenem 1 gm/ Sodium (Chloride) 100 mls @ 100 mls/hr IVPB Q12@0800,2000 [facility] PRN Reason: Protocol Last Admin: 06/30/17 20:39 Dose: 100 mls/hr Sodium Chloride (Sodium Chloride 0.9%) 1,000 mls @ 999 mls/hr IV .Q1H1M [facility] Stop: 07/01/17 17:16 Last Admin: 06/30/17 18:36 Dose: Not Given Insulin Detemir (Levemir) 10 units SC HS [facility] Last Admin: 06/30/17 22:51 Dose: 10 units Insulin Human Regular (Humulin R) 0 units SC ACHS [facility] PRN Reason: Protocol Last Admin: 07/01/17 06:56 Dose: 4 units Lactic Acid (Lac-Hydrin 12% Lotion (225 G)) 1 applic TOP TID [facility] Last Admin: 06/30/17 16:01 Dose: 1 applic Levofloxacin (Levaquin) 750 mg PO DAILY [facility] Last Admin: 06/30/17 09:14 Dose: 750 mg Lisinopril (Zestril) 20 mg PO DAILY [facility] Last Admin: 06/30/17 09:15 Dose: 20 mg Methylprednisolone (Solu-Medrol) 40 mg IVP Q12 [facility] Last Admin: 06/30/17 20:40 Dose: 40 mg Fluticasone/Salmeterol (Advair Diskus 250/50) 1 puff IH Q12 [facility] Last Admin: 06/30/17 20:38 Dose: 1 puff - Labs Labs: 07/01/17 04:40 07/01/17 04:40 PT 13.0 Seconds (9.8-13.1) 06/28/17 04:20 INR 1.2 (0.9-1.2) 06/28/17 04:20 APTT 28.3 Seconds (25.6-37.1) 06/28/17 04:20 - Constitutional Appears: Well, Non-toxic, No Acute Distress - Head Exam Head Exam: ATRAUMATIC, NORMOCEPHALIC - Eye Exam Eye Exam: Normal appearance Pupil Exam: NORMAL ACCOMODATION, PERRL - ENT Exam ENT Exam: Mucous Membranes Moist - Neck Exam Neck Exam: Full ROM, Normal Inspection. absent: Tenderness - Respiratory Exam Respiratory Exam: Rhonchi, Wheezes. absent: Respiratory Distress Additional comments: heavy wheezing and rhonchi present breathing is not labored - Cardiovascular Exam Cardiovascular Exam: REGULAR RHYTHM, +S1, +S2 - GI/Abdominal Exam GI & Abdominal Exam: Soft, Normal Bowel Sounds - Rectal Exam Rectal Exam: Deferred - Neurological Exam Neurological Exam: Alert, Awake, Oriented x3 - Psychiatric Exam Psychiatric exam: Normal Affect, Normal Mood - Skin Skin Exam: Dry, Normal Color Additional comments: psoriatic plaques to all 4 extremities on extensor surfaces skin lichenification with xerosis noted to bilateral lower extremities Assessment and Plan - Assessment and Plan (Free Text) Assessment: 1) SIRS - due to elevated WBC and tachycardia on admission - WBC up to 14.1 from 8.7, likely due to steroid therapy - Sputum cx (+) for E. coli; new sputum culture pending - Tachycardia normalized, initial elevation in HR possibly worsened by albuterol - c/w Levofloxacin 750mg PO (day 6) - ID on board Dr. Alonso - Meropenem added for likely drug resistant E.coli in sputum - Blood cx NGTD; pt has history of pseudomonas bacteremia on last admission, D/ C 05/16 2) COPD exacerbation - O2 95 on RA today - continue Duoneb Q4h lovely - Prednisone dose tapered down further to 40mg q12 - pt remains afebrile - Sputum culture (+) ESBL E. coli - new sputum culture pending -start Phenergan/Codeine oral syrup PRN for cough - Pulmonary on consult Dr. Beckwith, recommends Acetylcysteine -await further recs 3) Left groin mass - CT abd/pelvis with PO contrast: Small bilateral inguinal hernias left side of which is larger than right and contains a in unobstructed short segment of the distal descending colon and mesenteric fat. The right inguinal hernia and umbilical hernia containing small amount of fat. In situ IVC filter. Urinary bladder is incompletely distended which in part accounts for thick-walled appearance. Muscular hypertrophy may contribute. Rule out cystitis or other intrinsic wall abnormality. -surgery on consult, to consider doing outpatient surgery 4) Hx of PE and tachycardia -HR remains WNL x 4 days -IVC filter in place -Tachycardia likely 2/2 to albuterol treatment -c/w monitoring vitals 5) NIDDM2 -HgA1C 6.2 -Glipizide 2.5 PO daily -Insulin coverage scale adjusted to medium dose protocol for better glycemic control -low dose Levemir added yesterday due to hyperglycemia from steroids -Has history of hypoglycemic episodes on previous admissions -Accucheck ACHS 6) Hypertension -Lisinopril dose increased -continue to monitor 7) Psoriasis -ammonium lactate cream 12 % TOP TID 8) Lung Nodule -CT chest 02/13/2017 Paraeptal bullous emphysema. 3 mm right lower lobe nodule for which 1 year f/u is recommended. -[address] chest f/u as outpatient -CT chest repeated 06/30/17: emphysematous changes identified, dilated main pulmonary artery consistent with pulmonary artery hypertension 9) DVT Prophylaxis -s/p IVC filter placement -Heparin 5000 SC q8h
[2017-07-01] MEDS: Fluticasone-Salmeterol 250-50mcg Diskus IH SCH ×2 (10:06→20:22)
[2017-07-01] MEDS: levoFLOXacin 750 MG TAB PO SCH (10:07)
[2017-07-01] MEDS: MethylPREDNISolone 40 mg Vial IVP SCH ×2 (10:07→20:23)
[2017-07-01] MEDS: Meropenem 1 GM in Sodium Chloride 0.9% 100 ML IVPB SCH ×2 (10:08→20:24)
[2017-07-01] MEDS: GlipiZIDE 2.5 mg SR Tab PO SCH (10:08)
[2017-07-01] MEDS ORDERED: Promethazine/Cod 6.25mg-10mg/5ml Syr UD PO PRN (13:48)
[2017-07-01] MEDS: Insulin Detemir 100 Units/ml Inj SC SCH (22:50)
[2017-07-02] MEDS: Albuterol-Ipratrop 3 mg / 0.5 (3 ml) UD INH SCH ×4 (04:35→19:18)
[2017-07-02 05:21] LABS: BASO % 0.3 % (0.0-2.0); EOS % 0.1 % (0.0-4.0); HEMATOCRIT 38.1 % (35.0-51.0); LYMPH # 1.7 K/uL (1.0-4.3); LYMPH % 12.9 % (20.0-40.0); MEAN CELL VOLUME 86.1 fl (80.0-94.0); MEAN CORPUSCULAR HEMOGLOBIN 27.8 pg (27.0-31.0); MEAN CORPUSCULAR HGB CONC 32.3 g/dL (33.0-37.0); MEAN PLATELET VOLUME 8.6 fl (7.2-11.7); MONO # 1.2 K/uL (0.0-0.8); MONO % 8.8 % (0.0-10.0); NEUT # 10.4 K/uL (1.8-7.0); NEUT % 77.9 % (50.0-75.0); NRBC % 0.1 % (0.0-0.0); RED CELL DISTRIBUTION WIDTH 16.5 % (11.5-14.5); WHITE BLOOD COUNT 13.3 K/uL (4.8-10.8)
[2017-07-02 06:26] LABS: ALKALINE PHOSPHATASE 43 U/L (38-126); ALT/SGPT 32 U/L (21-72); AST/SGOT 23 U/L (17-59); BILIRUBIN,TOTAL 0.3 mg/dl (0.2-1.3); BLOOD UREA NITROGEN 32 mg/dl (9-20); CARBON DIOXIDE 31 mmol/L (22-30); CHLORIDE 99 mmol/L (98-107); GFR AFRICAN-AMERICAN > 60; GLUCOSE,RANDOM 286 mg/dL (75-110); POTASSIUM 4.7 MMOL/L (3.6-5.0); SODIUM 135 mmol/l (132-148); TOTAL PROTEIN 6.3 G/DL (6.3-8.2)
[2017-07-02] MEDS: Insulin Regular 100 units/ml SC SCH ×4 (06:55→22:11)
[2017-07-02] MEDS: Acetylcysteine 20% Inhal Soln (4ml) INH SCH ×2 (08:03→19:18)
--- NOTE | 2017-07-02 09:13 | CP.PCM.PN ---
Subjective - Date & Time of Evaluation Date of Evaluation: 07/02/17 Time of Evaluation: 09:11 - Subjective Subjective: 67 y/o male seen at bedside, eating breakfast at time of visit. Pt denies any episodes of vomiting in last 24 hours. Pt denies F/C/N. Pt admits to persistent CP and SOB but says it was significantly milder since yesterday. Pt admits to sleeping well with less coughing and sputum production. Pt admits to continuous groin and lower abdominal pain, increased on urination. Pt denies diarrhea or constipation. Objective - Vital Signs/Intake and Output Vital Signs (last 24 hours): Temp Pulse Resp BP Pulse Ox 98.4 F 79 18 129/64 100 07/02/17 08:00 07/02/17 08:00 07/02/17 08:00 07/02/17 08:00 07/02/17 08:00 - Medications Medications: Current Medications Acetylcysteine (Acetylcysteine 20%) 2 ml INH RBID [facility] Last Admin: 07/02/17 08:03 Dose: 2 ml Albuterol/Ipratropium (Duoneb 3 Mg/0.5 Mg (3 Ml) Ud) 3 ml INH RQ4 [facility] Last Admin: 07/02/17 08:03 Dose: 3 ml Dextrose (Dextrose 50% Inj) 0 ml IV STAT PRN; Protocol PRN Reason: Hypoglycemia Protocol Dextrose (Glutose 15) 0 gm PO ONCE PRN; Protocol PRN Reason: Hypoglycemia Protocol Glipizide (Glucotrol Xl) 2.5 mg PO BRK [facility] Last Admin: 07/01/17 10:08 Dose: 2.5 mg Glucagon (Glucagen Diagnostic Kit) 0 mg IM STAT PRN; Protocol PRN Reason: Hypoglycemia Protocol Heparin Sodium (Porcine) (Heparin) 5,000 units SC Q8 [facility] PRN Reason: Protocol Last Admin: 07/02/17 00:35 Dose: 5,000 units Meropenem 1 gm/ Sodium (Chloride) 100 mls @ 100 mls/hr IVPB Q12@0800,2000 [facility] PRN Reason: Protocol Last Admin: 07/01/17 20:24 Dose: 100 mls/hr Insulin Detemir (Levemir) 10 units SC HS [facility] Last Admin: 07/01/17 22:50 Dose: 10 units Insulin Human Regular (Humulin R) 0 units SC ACHS [facility] PRN Reason: Protocol Last Admin: 07/02/17 06:55 Dose: 3 units Lactic Acid (Lac-Hydrin 12% Lotion (225 G)) 1 applic TOP TID [facility] Last Admin: 07/01/17 16:25 Dose: 1 applic Levofloxacin (Levaquin) 750 mg PO DAILY [facility] Last Admin: 07/01/17 10:07 Dose: 750 mg Lisinopril (Zestril) 20 mg PO DAILY [facility] Last Admin: 07/01/17 10:07 Dose: 20 mg Methylprednisolone (Solu-Medrol) 40 mg IVP Q12 [facility] Last Admin: 07/01/17 20:23 Dose: 40 mg Promethazine HCl/Codeine (Phenergan/Codeine Oral Syrup) 5 ml PO Q6 PRN PRN Reason: Cough Fluticasone/Salmeterol (Advair Diskus 250/50) 1 puff IH Q12 [facility] Last Admin: 07/01/17 20:22 Dose: 1 puff - Labs Labs: 07/02/17 04:25 07/02/17 04:25 PT 13.0 Seconds (9.8-13.1) 06/28/17 04:20 INR 1.2 (0.9-1.2) 06/28/17 04:20 APTT 28.3 Seconds (25.6-37.1) 06/28/17 04:20 - Constitutional Appears: Well, Non-toxic, No Acute Distress - Head Exam Head Exam: ATRAUMATIC, NORMOCEPHALIC - Eye Exam Eye Exam: EOMI, Normal appearance Pupil Exam: PERRL - ENT Exam ENT Exam: Mucous Membranes Moist, Normal Exam - Neck Exam Neck Exam: Full ROM, Normal Inspection. absent: Tenderness - Respiratory Exam Respiratory Exam: Rhonchi, Wheezes. absent: Respiratory Distress Additional comments: heavy wheezing and rhonchi present breathing is not labored - Cardiovascular Exam Cardiovascular Exam: REGULAR RHYTHM, +S1, +S2. absent: JVD - GI/Abdominal Exam GI & Abdominal Exam: Soft, Tenderness, Normal Bowel Sounds Additional comments: lower abdominal and groin tenderness to palpation - Rectal Exam Rectal Exam: Deferred - Extremities Exam Extremities Exam: Normal Capillary Refill, Normal Inspection. absent: Calf Tenderness - Neurological Exam Neurological Exam: Alert, Awake, Oriented x3 - Psychiatric Exam Psychiatric exam: Normal Affect, Normal Mood - Skin Skin Exam: Dry, Intact, Warm Additional comments: psoriatic plaques to all 4 extremities on extensor surfaces skin lichenification with xerosis noted to bilateral lower extremities Assessment and Plan - Assessment and Plan (Free Text) Assessment: 1) SIRS, resolving - elevated WBC and tachycardia on admission - afebrile throughout admission - WBC 13.3, likely due to steroid therapy - Sputum cx (+) for E. coli; new sputum culture pending - Tachycardia normalized, initial elevation in HR possibly worsened by albuterol - ID on board Dr. Alonso -per ID, pt is likely colonized with MDR E.Coli --> Meropenem and Levofloxacin discontinued - Blood cx NGTD; pt has history of pseudomonas bacteremia on last admission, D/ C 05/16 2) COPD exacerbation - O2 100 on RA today - continue Duoneb Q4h lovely - Prednisone tapered down to 20mg q12 - pt remains afebrile - Sputum culture (+) ESBL E. coli; repeat cx pending - Phenergan/Codeine oral syrup PRN for cough - Pulmonary on consult Dr. Beckwith 3) Left groin mass - CT abd/pelvis with PO contrast: Small bilateral inguinal hernias left side of which is larger than right and contains a in unobstructed short segment of the distal descending colon and mesenteric fat. The right inguinal hernia and umbilical hernia containing small amount of fat. In situ IVC filter. -surgery on consult, to consider doing outpatient surgery 4) Hx of PE and tachycardia -HR normalized -IVC filter in place -Tachycardia likely 2/2 to albuterol treatment -will monitor 5) NIDDM2 -HgA1C 6.2 -Glipizide 2.5 PO daily -Insulin coverage scale medium dose protocol -Levemir 10 units bedtime insulin -Has hx of hypoglycemic episodes on previous admissions -Accucheck ACHS 6) Hypertension -continue Lisinopril -will monitor 7) Psoriasis -ammonium lactate cream 12 % TOP TID 8) Lung Nodule -CT chest 02/13/2017 Paraeptal bullous emphysema. 3 mm right lower lobe nodule for which 1 year f/u is recommended. -[address] chest f/u as outpatient -CT chest repeated 06/30/17: emphysematous changes identified, dilated main pulmonary artery consistent with pulmonary artery hypertension 9) DVT Prophylaxis -s/p IVC filter placement -Heparin 5000 SC q8h
[2017-07-02] MEDS: MethylPREDNISolone 40 mg Vial IVP SCH (09:31)
[2017-07-02] MEDS: Meropenem 1 GM in Sodium Chloride 0.9% 100 ML IVPB SCH (09:31)
[2017-07-02] MEDS: levoFLOXacin 750 MG TAB PO SCH (09:31)
[2017-07-02] MEDS: GlipiZIDE 2.5 mg SR Tab PO SCH (09:32)
[2017-07-02] MEDS: Fluticasone-Salmeterol 250-50mcg Diskus IH SCH ×2 (09:33→20:17)
[2017-07-02] MEDS ORDERED: MethylPREDNISolone 40 mg Vial IVP SCH (10:30)
--- NOTE | 2017-07-02 10:57 | CP.PCM.PN ---
Subjective - Date & Time of Evaluation Date of Evaluation: 07/02/17 Time of Evaluation: 10:55 - Subjective Subjective: I D NOTE UPON REVIEW OF MICRO,HE IS OBVIOUSLY COLONIZED AND DOUBT THAT WE WILL BE ABLE TO CLEAR AND IS AFEBRILE AND CT OF CHEST SHOWS NO ACTIVE DISEASE ,WIIL D/C MEROPENEM Objective - Vital Signs/Intake and Output Vital Signs (last 24 hours): Temp Pulse Resp BP Pulse Ox 98.4 F 79 18 129/64 100 07/02/17 08:00 07/02/17 08:00 07/02/17 08:00 07/02/17 08:00 07/02/17 08:00 - Medications Medications: Current Medications Acetylcysteine (Acetylcysteine 20%) 2 ml INH RBID [facility] Last Admin: 07/02/17 08:03 Dose: 2 ml Albuterol/Ipratropium (Duoneb 3 Mg/0.5 Mg (3 Ml) Ud) 3 ml INH RQ6 [facility] Dextrose (Dextrose 50% Inj) 0 ml IV STAT PRN; Protocol PRN Reason: Hypoglycemia Protocol Dextrose (Glutose 15) 0 gm PO ONCE PRN; Protocol PRN Reason: Hypoglycemia Protocol Glipizide (Glucotrol Xl) 2.5 mg PO BRK [facility] Last Admin: 07/02/17 09:32 Dose: 2.5 mg Glucagon (Glucagen Diagnostic Kit) 0 mg IM STAT PRN; Protocol PRN Reason: Hypoglycemia Protocol Heparin Sodium (Porcine) (Heparin) 5,000 units SC Q8 [facility] PRN Reason: Protocol Last Admin: 07/02/17 09:32 Dose: 5,000 units Meropenem 1 gm/ Sodium (Chloride) 100 mls @ 100 mls/hr IVPB Q12@0800,2000 [facility] PRN Reason: Protocol Last Admin: 07/02/17 09:31 Dose: 100 mls/hr Insulin Detemir (Levemir) 10 units SC HS [facility] Last Admin: 07/01/17 22:50 Dose: 10 units Insulin Human Regular (Humulin R) 0 units SC ACHS [facility] PRN Reason: Protocol Last Admin: 07/02/17 06:55 Dose: 3 units Lactic Acid (Lac-Hydrin 12% Lotion (225 G)) 1 applic TOP TID [facility] Last Admin: 07/02/17 09:34 Dose: 1 applic Levofloxacin (Levaquin) 750 mg PO DAILY [facility] Last Admin: 07/02/17 09:31 Dose: 750 mg Lisinopril (Zestril) 20 mg PO DAILY [facility] Last Admin: 07/01/17 10:07 Dose: 20 mg Prednisone (Prednisone Tab) 20 mg PO BID [facility] Promethazine HCl/Codeine (Phenergan/Codeine Oral Syrup) 5 ml PO Q6 PRN PRN Reason: Cough Last Admin: 07/02/17 09:31 Dose: 5 ml Promethazine HCl/Codeine (Phenergan/Codeine Oral Syrup) 5 ml PO BID [facility] Fluticasone/Salmeterol (Advair Diskus 250/50) 1 puff IH Q12 [facility] Last Admin: 07/02/17 09:33 Dose: 1 puff - Labs Labs: 07/02/17 04:25 07/02/17 04:25 PT 13.0 Seconds (9.8-13.1) 06/28/17 04:20 INR 1.2 (0.9-1.2) 06/28/17 04:20 APTT 28.3 Seconds (25.6-37.1) 06/28/17 04:20
[2017-07-02] MEDS: Promethazine/Cod 6.25mg-10mg/5ml Syr UD PO SCH ×2 (11:04→17:38)
--- NOTE | 2017-07-02 13:41 | CP.PCM.PN ---
Subjective - Date & Time of Evaluation Date of Evaluation: 07/02/17 Time of Evaluation: 13:41 - Subjective Subjective: OOB TO CHAIR SOB IMPROVING STILL COUGHING Objective - Vital Signs/Intake and Output Vital Signs (last 24 hours): Temp Pulse Resp BP Pulse Ox 98.1 F 74 20 137/71 100 07/02/17 13:00 07/02/17 13:00 07/02/17 13:00 07/02/17 13:00 07/02/17 13:00 - Medications Medications: Current Medications Acetylcysteine (Acetylcysteine 20%) 2 ml INH RBID [facility] Last Admin: 07/02/17 08:03 Dose: 2 ml Albuterol/Ipratropium (Duoneb 3 Mg/0.5 Mg (3 Ml) Ud) 3 ml INH RQ6 [facility] Dextrose (Dextrose 50% Inj) 0 ml IV STAT PRN; Protocol PRN Reason: Hypoglycemia Protocol Dextrose (Glutose 15) 0 gm PO ONCE PRN; Protocol PRN Reason: Hypoglycemia Protocol Glipizide (Glucotrol Xl) 2.5 mg PO BRK [facility] Last Admin: 07/02/17 09:32 Dose: 2.5 mg Glucagon (Glucagen Diagnostic Kit) 0 mg IM STAT PRN; Protocol PRN Reason: Hypoglycemia Protocol Heparin Sodium (Porcine) (Heparin) 5,000 units SC Q8 [facility] PRN Reason: Protocol Last Admin: 07/02/17 09:32 Dose: 5,000 units Insulin Detemir (Levemir) 10 units SC HS [facility] Last Admin: 07/01/17 22:50 Dose: 10 units Insulin Human Regular (Humulin R) 0 units SC ACHS [facility] PRN Reason: Protocol Last Admin: 07/02/17 06:55 Dose: 3 units Lactic Acid (Lac-Hydrin 12% Lotion (225 G)) 1 applic TOP TID [facility] Last Admin: 07/02/17 09:34 Dose: 1 applic Levofloxacin (Levaquin) 750 mg PO DAILY [facility] Last Admin: 07/02/17 09:31 Dose: 750 mg Lisinopril (Zestril) 20 mg PO DAILY [facility] Last Admin: 07/01/17 10:07 Dose: 20 mg Prednisone (Prednisone Tab) 20 mg PO BID [facility] Promethazine HCl/Codeine (Phenergan/Codeine Oral Syrup) 5 ml PO Q6 PRN PRN Reason: Cough Last Admin: 07/02/17 09:31 Dose: 5 ml Promethazine HCl/Codeine (Phenergan/Codeine Oral Syrup) 5 ml PO BID [facility] Fluticasone/Salmeterol (Advair Diskus 250/50) 1 puff IH Q12 [facility] Last Admin: 07/02/17 09:33 Dose: 1 puff - Labs Labs: 07/02/17 04:25 07/02/17 04:25 PT 13.0 Seconds (9.8-13.1) 06/28/17 04:20 INR 1.2 (0.9-1.2) 06/28/17 04:20 APTT 28.3 Seconds (25.6-37.1) 06/28/17 04:20 - Constitutional Appears: Chronically Ill - Head Exam Head Exam: ATRAUMATIC, NORMAL INSPECTION, NORMOCEPHALIC - Eye Exam Eye Exam: EOMI, Normal appearance, PERRL Pupil Exam: NORMAL ACCOMODATION, PERRL - ENT Exam ENT Exam: Mucous Membranes Moist, Normal Exam - Neck Exam Neck Exam: Full ROM, Normal Inspection. absent: Lymphadenopathy - Respiratory Exam Respiratory Exam: Decreased Breath Sounds, Rales, Wheezes, NORMAL BREATHING PATTERN - Cardiovascular Exam Cardiovascular Exam: REGULAR RHYTHM, +S1, +S2. absent: Murmur - GI/Abdominal Exam GI & Abdominal Exam: Soft, Normal Bowel Sounds. absent: Tenderness - Rectal Exam Rectal Exam: NORMAL INSPECTION - Extremities Exam Extremities Exam: Full ROM, Normal Capillary Refill, Normal Inspection. absent : Joint Swelling, Pedal Edema - Back Exam Back Exam: NORMAL INSPECTION - Neurological Exam Neurological Exam: Alert, Awake, CN II-XII Intact, Normal Gait, Oriented x3 - Psychiatric Exam Psychiatric exam: Normal Affect, Normal Mood - Skin Skin Exam: Rash Assessment and Plan - Assessment and Plan (Free Text) Assessment: ACUTE EXAC OF COPD-IMPROVING PSOARIASIS URI Plan: TAPER STEROIDS
[2017-07-02] MEDS ORDERED: Insulin Detemir 100 Units/ml Inj SC SCH (22:00)
[2017-07-03] MEDS: Albuterol-Ipratrop 3 mg / 0.5 (3 ml) UD INH SCH ×2 (01:00→07:34)
[2017-07-03] MEDS: Acetylcysteine 20% Inhal Soln (4ml) INH SCH (07:34)
[2017-07-03 07:58] VITALS: PULSE 69; RESP 14
[2017-07-03] MEDS: Insulin Regular 100 units/ml SC SCH ×2 (08:30→12:03)
[2017-07-03] MEDS: Fluticasone-Salmeterol 250-50mcg Diskus IH SCH (08:47)
[2017-07-03] MEDS: GlipiZIDE 2.5 mg SR Tab PO SCH (08:48)
[2017-07-03] MEDS: Promethazine/Cod 6.25mg-10mg/5ml Syr UD PO SCH (08:49)
[2017-07-03] MEDS: levoFLOXacin 750 MG TAB PO SCH (08:49)
--- NOTE | 2017-07-03 11:32 | CP.PCM.DIS ---
Provider - Provider Date of Admission: 06/26/17 14:46 Attending physician: Tennille Tavares MD Time Spent in preparation of Discharge (in minutes): 30 Hospital Course - Lab Results Lab Results: Micro Results 07/01/17 19:10 Sputum Gram Stain - Final 06/25/17 14:25 Blood-Venous Blood Culture - Final NO GROWTH AFTER 5 DAYS 06/25/17 14:25 Blood-Venous Gram Stain - Final TEST NOT PERFORMED 06/26/17 11:53 Sputum Gram Stain - Final 06/26/17 11:53 Sputum Sputum Culture - Final Escherichia Coli 06/26/17 11:33 Urine,Clean Catch Urine Culture - Final No Growth (<1,000 CFU/ML) Most Recent Lab Values WBC 13.3 K/uL (4.8-10.8) H 07/02/17 04:25 RBC 4.42 Mil/uL (4.40-5.90) 07/02/17 04:25 Hgb 12.3 g/dL (12.0-18.0) 07/02/17 04:25 Hct 38.1 % (35.0-51.0) 07/02/17 04:25 MCV 86.1 fl (80.0-94.0) 07/02/17 04:25 MCH 27.8 pg (27.0-31.0) 07/02/17 04:25 MCHC 32.3 g/dL (33.0-37.0) L 07/02/17 04:25 RDW 16.5 % (11.5-14.5) H 07/02/17 04:25 Plt Count 269 K/uL (130-400) 07/02/17 04:25 MPV 8.6 fl (7.2-11.7) 07/02/17 04:25 Neut % (Auto) 77.9 % (50.0-75.0) H 07/02/17 04:25 Lymph % (Auto) 12.9 % (20.0-40.0) L 07/02/17 04:25 [place] % (Auto) 8.8 % (0.0-10.0) 07/02/17 04:25 Eos % (Auto) 0.1 % (0.0-4.0) 07/02/17 04:25 Baso % (Auto) 0.3 % (0.0-2.0) 07/02/17 04:25 Neut # 10.4 K/uL (1.8-7.0) H 07/02/17 04:25 Lymph # 1.7 K/uL (1.0-4.3) 07/02/17 04:25 [place] # 1.2 K/uL (0.0-0.8) H 07/02/17 04:25 Eos # 0.0 K/uL (0.0-0.7) 07/02/17 04:25 Baso # 0.0 K/uL (0.0-0.2) 07/02/17 04:25 Neutrophils % (Manual) 83 % (42-75) H 06/26/17 05:30 Band Neutrophils % 2 % (0-2) 06/26/17 05:30 Lymphocytes % (Manual) 10 % (20-50) L 06/26/17 05:30 Monocytes % (Manual) 5 % (0-10) 06/26/17 05:30 Platelet Estimate Normal (NORMAL) 06/26/17 05:30 Hypochromasia (manual) Slight 06/26/17 05:30 Anisocytosis (manual) Slight 06/26/17 05:30 PT 13.0 Seconds (9.8-13.1) 06/28/17 04:20 INR 1.2 (0.9-1.2) 06/28/17 04:20 APTT 28.3 Seconds (25.6-37.1) 06/28/17 04:20 pO2 27 mm/Hg (30-55) L 06/25/17 13:52 VBG pH 7.36 (7.32-7.43) 06/25/17 13:52 VBG pCO2 52 mmHg (40-60) 06/25/17 13:52 VBG HCO3 26.0 mmol/L 06/25/17 13:52 VBG Total CO2 31.0 mmol/L (22-28) H 06/25/17 13:52 VBG O2 Sat (Calc) 56.0 % (40-65) 06/25/17 13:52 VBG Base Excess 2.9 mmol/L (0.0-2.0) H 06/25/17 13:52 VBG Potassium 4.1 mmol/L (3.6-5.2) 06/25/17 13:52 Sodium 141.0 mmol/L (132-148) 06/25/17 13:52 Chloride 105.0 mmol/L (98-107) 06/25/17 13:52 Glucose 118 mg/dL (75-110) H 06/25/17 13:52 Lactate 1.8 mmol/L (0.7-2.1) 06/25/17 13:52 FiO2 21.0 % 06/25/17 13:52 Sodium 135 mmol/l (132-148) 07/02/17 04:25 Potassium 4.7 MMOL/L (3.6-5.0) 07/02/17 04:25 Chloride 99 mmol/L (98-107) 07/02/17 04:25 Carbon Dioxide 31 mmol/L (22-30) H 07/02/17 04:25 Anion Gap 10 (10-20) 07/02/17 04:25 BUN 32 mg/dl (9-20) H 07/02/17 04:25 Creatinine 1.1 mg/dl (0.8-1.5) 07/02/17 04:25 Est GFR ( Amer) > 60 07/02/17 04:25 Est GFR (Non-Af Amer) > 60 07/02/17 04:25 POC Glucose (mg/dL) 219 mg/dL (65-110) H 07/03/17 05:31 Random Glucose 286 mg/dL (75-110) H 07/02/17 04:25 Hemoglobin A1c 6.2 % (4.2-6.5) 06/26/17 05:30 Calcium 9.0 mg/dL (8.4-10.2) 07/02/17 04:25 Total Bilirubin 0.3 mg/dl (0.2-1.3) 07/02/17 04:25 AST 23 U/L (17-59) 07/02/17 04:25 ALT 32 U/L (21-72) 07/02/17 04:25 Alkaline Phosphatase 43 U/L (38-126) 07/02/17 04:25 Troponin I 0.0140 ng/mL (0.00-0.120) 06/25/17 14:25 Total Protein 6.3 G/DL (6.3-8.2) 07/02/17 04:25 Albumin 3.2 g/dL (3.5-5.0) L 07/02/17 04:25 Globulin 3.1 gm/dL (2.2-3.9) 07/02/17 04:25 Albumin/Globulin Ratio 1.0 (1.0-2.1) 07/02/17 04:25 Venous Blood Potassium 4.1 mmol/L (3.6-5.2) 06/25/17 13:52 Urine Color Straw (YELLOW) 07/01/17 02:15 Urine Clarity Clear (Clear) 07/01/17 02:15 Urine pH 6.0 (5.0-8.0) 07/01/17 02:15 Ur Specific [place] 1.023 (1.003-1.030) 07/01/17 02:15 Urine Protein Negative mg/dL (NEGATIVE) 07/01/17 02:15 Urine Glucose (UA) >=500 mg/dL (Normal) 07/01/17 02:15 Urine Ketones Negative mg/dL (NEGATIVE) 07/01/17 02:15 Urine Blood Negative (NEGATIVE) 07/01/17 02:15 Urine Nitrate Negative (NEGATIVE) 07/01/17 02:15 Urine Bilirubin Negative (NEGATIVE) 07/01/17 02:15 Urine Urobilinogen 0.2-1.0 mg/dL (0.2-1.0) 07/01/17 02:15 Ur Leukocyte Esterase Neg [place]/uL (Negative) 07/01/17 02:15 Urine RBC (Auto) 2 /hpf (0-3) 07/01/17 02:15 Urine Microscopic WBC < 1 /hpf (0-5) 07/01/17 02:15 - Hospital Course Hospital Course: 67 y/o male with PMHx of COPD , DM, HTN, PE with IVC filter (not on usp anticoagulation due to history of retroperitoneal hematoma), psoriasis admitted for COPD exacerbation 2/2 medication non com Found to have ESBL pneumonia on sputum culture, was treated with meropenem and subsequently with levofloxacin per ID. Remained afebrile, SOB improved after duonebs, advair and prednisone taper. Cleared to [place] home today by ID and Pulmonology. Take medication as directed ER precautions given today See reconciled medication list below Discharge Exam - Head Exam Head Exam: ATRAUMATIC, NORMOCEPHALIC - Eye Exam Eye Exam: Normal appearance Pupil Exam: PERRL - ENT Exam ENT Exam: Mucous Membranes Moist - Respiratory Exam Respiratory Exam: Rhonchi, Wheezes. absent: Accessory Muscle Use - Cardiovascular Exam Cardiovascular Exam: +S1, +S2 - GI/Abdominal Exam GI & Abdominal Exam: Normal Bowel Sounds, Soft. absent: Tenderness - Extremities Exam Extremities exam: full ROM, normal inspection - Neurological Exam Neurological exam: Alert, Oriented x3 - Psychiatric Exam Psychiatric exam: Normal Affect, Normal Mood - Skin Skin Exam: Dry, Normal Color, Warm Discharge Plan - Discharge Medications Prescriptions: Albuterol HFA [Ventolin HFA 90 mcg/actuation (8 g)] 2 puff IH [id number] PRN 30 Days #1 inh PRN Reason: Shortness Of Breath Fluticasone/Salmeterol 250/50 [Advair Diskus 250/50] 1 puff IH Q12 30 Days puff GlipiZIDE SR [Glucotrol XL] 2.5 mg PO DAILY #30 tab GlipiZIDE SR [Glucotrol XL] 2.5 mg PO BRK #30 tab Lisinopril [Zestril] 10 mg PO DAILY #30 tab Lisinopril [Zestril] 20 mg PO DAILY #30 tab predniSONE [predniSONE Tab] 10 mg PO BID 4 Days tab Promethazine/Codeine [Phenergan/Codeine Oral Syrup] 5 ml PO BID PRN #1 bottle PRN Reason: Cough And Congestion - Follow Up Plan Condition: FAIR Disposition: HOME/ ROUTINE
[2017-07-03 12:22] VITALS: BP 116/55; TEMP 97.5; O2SAT 95
== END 2017-07-03 14:37 | disposition home or self-care (01) | DRG 88 ==
LOC: H.ER 13:30 → H.ERHOLD 14:49 → UNDOADMOB 15:10 → H.ERHOLD 15:10 → H.TEL 18:42 → OBSVTOIN 06-26 14:46 → H.TEL 06-28 19:48
PROVIDERS: ADMIT Family Medicine Geriatric Medicine; ATTEND Family Medicine Geriatric Medicine
DX: J44.1 Chronic obstructive pulmonary disease with (acute) exacerbation (principal); I27.21 Secondary pulmonary arterial hypertension; I11.0 Hypertensive heart disease with heart failure; E11.65 Type 2 diabetes mellitus with hyperglycemia; I50.9 Heart failure, unspecified; J45.901 Unspecified asthma with (acute) exacerbation; J06.9 Acute upper respiratory infection, unspecified; K40.20 Bilateral inguinal hernia, without obstruction or gangrene, not specified as recurrent; K42.9 Umbilical hernia without obstruction or gangrene; L40.9 Psoriasis, unspecified; T38.0X5A Adverse effect of glucocorticoids and synthetic analogues, initial encounter; Z79.4 Long term (current) use of insulin; Z79.899 Other long term (current) drug therapy; Z83.3 Family history of diabetes mellitus; Z86.711 Personal history of pulmonary embolism; Z87.01 Personal history of pneumonia (recurrent); Z87.891 Personal history of nicotine dependence; Z91.14 Patient's other noncompliance with medication regimen; Z91.19 Patient's noncompliance with other medical treatment and regimen; R00.0 Tachycardia, unspecified; R19.09 Other intra-abdominal and pelvic swelling, mass and lump; R91.1 Solitary pulmonary nodule; B96.20 Unspecified Escherichia coli [E. coli] as the cause of diseases classified elsewhere; Z16.24 Resistance to multiple antibiotics

== ENCOUNTER 2017-10-18 16:17 | Inpatient (IN) | payer SELFPAY ==
[2017-10-18 16:17] VITALS: BMI 26.6
--- NOTE | 2017-10-18 16:46 | ED PDOC ---
HPI: SOB/CHF/COPD Time Seen by Provider: 10/18/17 16:43 Chief Complaint (Nursing): Shortness Of Breath Chief Complaint (Provider): SOB History Per: Patient Additional Complaint(s): 67-year-old male with history of COPD presents to emergency Department with shortness of breath that started earlier today. Patient has also had a cough for about one week. He denies fever or chills. Patient denies any chest pain except when excessively coughing. Patient states he ran out of albuterol inhaler yesterday. He admits to being noncompliant with his hypertension meds. PMD: [facility] Past Medical History Reviewed: Historical Data, Nursing Documentation, Vital Signs Vital Signs: Last Vital Signs Temp 97.6 F 10/18/17 16:25 Pulse 100 H 10/18/17 16:25 Resp 20 10/18/17 16:25 BP 182/68 H 10/18/17 16:25 Pulse Ox 97 10/18/17 17:53 - Medical History PMH: Asthma, CHF, COPD, Diabetes, HTN - Surgical History Other surgeries: clot removed from left leg - Family History Family History: States: [place], Diabetes - Living Arrangements Living Arrangements: With Family - Social History Current smoker - smoking cessation education provided: No Ex-Smoker (has not smoked in the last 12 months): Yes (quit several years ago) - Immunization History Hx Tetanus Toxoid Vaccination: No Hx Influenza Vaccination: No Hx Pneumococcal Vaccination: No - Home Medications Home Medications: Ambulatory Orders Medication Instructions Recorded Ammonium Lactate 12% [Lac-Hydrin 1 applic TOP TID bottle 07/03/17 12% Lotion (225 g)] Promethazine/Codeine 5 ml PO BID PRN #1 bottle 07/03/17 [Phenergan/Codeine Oral Syrup] Acidoph/L.bulg/Bif.b/S.thermop 1 tab PO DAILY #7 tab 08/02/17 [Bacid Probiotic 5%-80%-10%-5%] Albuterol HFA [Ventolin HFA 90 2 puff IH [id number] PRN 30 Days #1 08/02/17 mcg/actuation (8 g)] inh Fluticasone/Salmeterol 250/50 1 puff IH Q12 30 Days puff 08/02/17 [Advair Diskus 250/50] GlipiZIDE SR [Glucotrol XL] 5 mg PO DAILY #30 tab 08/02/17 Lisinopril [Zestril] 5 mg PO DAILY #30 tab 08/02/17 Sulfamethoxazole/Trimethoprim 1 each PO Q12H #14 tablet 08/02/17 [Bactrim 400-80 mg Tablet] - Allergies Allergies/Adverse Reactions: Allergies Allergy/AdvReac Type Severity Reaction Status Date / Time No Known Allergies Allergy Verified 07/09/17 21:54 Wells Criteria for PE - Wells Criteria for Pulmonary Embolism Clinical Signs and Symptoms of DVT: No P.E is #1 Diagnosis, or Equally Likely: No Heart Rate >100: No Immobilization at least 3 days;Surgery previous 4 weeks: No Previous, objectively diagnosed PE or DVT: No Hemoptysis: No Malignancy w/treatment within 6 months, or palliative: No Total Score: 0 Review of Systems ROS Statement: Except As Marked, All Systems Reviewed And Found Negative Constitutional: Negative for: Fever, Chills, Weakness Cardiovascular: Positive for: Chest Pain (when coughing). Negative for: Palpitations Respiratory: Positive for: Cough, Shortness of Breath, SOB with Exertion, Wheezing Gastrointestinal: Negative for: Nausea, Vomiting Neurological: Negative for: Headache, Dizziness Physical Exam - Reviewed Nursing Documentation Reviewed: Yes Vital Signs Reviewed: Yes - Physical Exam Appears: Positive for: Well, Non-toxic, No Acute Distress Skin: Positive for: Rash (psoriatic rash noted, no acute infection) Eye Exam: Positive for: Normal appearance Cardiovascular/Chest: Positive for: Regular Rate, Rhythm Respiratory: Positive for: Wheezing (bilateral inspiratory and expiratory wheezing), Respiratory Distress (mild) Gastrointestinal/Abdominal: Positive for: Soft. Negative for: Tenderness, Distended, Guarding, Rebound Extremity: Positive for: Normal ROM Neurologic/Psych: Positive for: Alert, Oriented - Laboratory Results Result Diagrams: 10/18/17 17:40 10/18/17 17:40 - ECG Interpretation Of ECG: NSR 85 bpm, no acute changes, reviewed by PA and ED attending O2 Sat by Pulse Oximetry: 97 Pulse Ox Interpretation: Normal - Other Rad CXR X-Ray: Interpreted by Me, Viewed By Me X-Ray Interpretation: no acute finding Nebulizer Treatments/Peak Flow - Duonebs Number of Bronchodilator Doses given?: 3 (duoneb) - Steroid Treatment Steroid: IV (125 mg IV solumedrol) - Clinical Response Clinical Response: Unchanged Medical Decision Making Medical Decision Makin67 year old with COPD exacerbation Plan: EKG CXR CBC CMP Trop IVF Duoneb x 3 IV solumedrol Patient still feels short of breath and is wheezing despite meds given in ED. Tachycardia and elevated BP also noted. Case was discussed with family practice resident, patient will be admitted. Patient is aware of and agrees with admission. Disposition - Clinical Impression Clinical Impression: Acute exacerbation of chronic obstructive pulmonary disease - Patient ED Disposition Is Patient to be Admitted: Yes - Disposition Disposition Time: 19:07 Condition: FAIR Forms: [employer] ([place]) - Pt Status Changed To: Hospital Disposition Of: Observation - POA Present On Arrival: None Results - Lab Results Lab Results: 10/18/17 10/18/17 17:40 17:40 WBC 9.7 RBC 4.08 L Hgb 11.2 L Hct 34.1 L MCV 83.5 D MCH 27.5 MCHC 33.0 RDW 16.4 H Plt Count 271 MPV 9.3 Neut % (Auto) 47.9 L Lymph % (Auto) 33.3 [place] % (Auto) 11.3 H Eos % (Auto) 6.3 H Baso % (Auto) 1.2 Neut # (Auto) 4.6 Lymph # (Auto) 3.2 [place] # (Auto) 1.1 H Eos # (Auto) 0.6 Baso # (Auto) 0.1 Sodium 143 Potassium 4.7 Chloride 107 Carbon Dioxide 22 Anion Gap 19 BUN 16 Creatinine 1.0 Est GFR ( Amer) > 60 Est GFR (Non-Af Amer) > 60 Random Glucose 81 Calcium 8.8 Total Bilirubin 0.6 AST 32 ALT 21 D Alkaline Phosphatase 59 Troponin I < 0.0120 Total Protein 8.1 Albumin 3.5 Globulin 4.6 H Albumin/Globulin Ratio 0.8 L
[2017-10-18] MEDS ORDERED: Sodium Chloride 0.9% 1,000 ML IV STA (16:58)
[2017-10-18] MEDS ORDERED: Albuterol-Ipratrop 3 mg / 0.5 (3 ml) UD INH STA (16:58)
[2017-10-18] MEDS ORDERED: Albuterol-Ipratrop 3 mg / 0.5 (3 ml) UD ONE (17:13)
--- NOTE | 2017-10-18 17:14 | RAD ---
HISTORY: COPD COMPARISON: 06/25/2017 two-view chest. 06/30/2017 CT thorax FINDINGS: LUNGS: No active pulmonary disease. PLEURA: No significant pleural effusion identified, no pneumothorax apparent. CARDIOVASCULAR: No radiographic findings to suggest acute or significant cardiovascular disease. OSSEOUS STRUCTURES: No significant abnormalities. VISUALIZED UPPER ABDOMEN: Normal. OTHER FINDINGS: None. IMPRESSION: No active disease. No significant interval change compared to the prior examination(s).
[2017-10-18 17:51] LABS: BASO # 0.1 K/uL (0.0-0.2); BASO % 1.2 % (0.0-2.0); EOS # 0.6 K/uL (0.0-0.7); EOS % 6.3 % (0.0-4.0); HEMOGLOBIN 11.2 g/dL (12.0-18.0); LYMPH # 3.2 K/uL (1.0-4.3); LYMPH % 33.3 % (20.0-40.0); MEAN CELL VOLUME 83.5 fl (80.0-94.0); MEAN CORPUSCULAR HEMOGLOBIN 27.5 pg (27.0-31.0); MEAN PLATELET VOLUME 9.3 fl (7.2-11.7); MONO # 1.1 K/uL (0.0-0.8); MONO % 11.3 % (0.0-10.0); NEUT # 4.6 K/uL (1.8-7.0); NEUT % 47.9 % (50.0-75.0); RBC 4.08 Mil/uL (4.40-5.90); RED CELL DISTRIBUTION WIDTH 16.4 % (11.5-14.5); WHITE BLOOD COUNT 9.7 K/uL (4.8-10.8)
[2017-10-18 18:01] LABS: ALB/GLOB RATIO 0.8 (1.0-2.1); ALBUMIN 3.5 g/dL (3.5-5.0); CALCIUM 8.8 mg/dL (8.4-10.2); GFR AFRICAN-AMERICAN > 60; GFR NON-AFRICAN AMERICAN > 60
[2017-10-18 18:08] LABS: ALT/SGPT 21 U/L (21-72); AST/SGOT 32 U/L (17-59); BLOOD UREA NITROGEN 16 mg/dl (9-20)
--- NOTE | 2017-10-18 20:58 | CP.PCM.HP ---
History of Present Illness - History of Present Illness History of Present Illness: 67 y/o male undomiciled with PMHx of COPD, DM, HTN, PE with IVC filter (not on nursing home anticoagulation due to history of retroperitoneal hematoma), psoriasis and asthma presents to ED complaining of 2 days history of nasal congestion, green/yellow rhinorrhea, cough with green/brownish phlegm production , increased in SOB and wheezing. Also patient reports subjective fever last night. Patient is not taking any medications at this time to manage his chronic medical conditions. Patient also states he has had burning sensation on urination, associated with dark urine for the last couple of days. Denies blood in urine. Reports few days of watery non bloody diarrheas, associated with diffuse abdominal pain. Last time he had diarrheas was yesterday x 2. Denies nausea, vomiting, blood in stools. However has been tolerating PO. Full code PMD: pt denies following up with any PMD, NO notes were found in [facility] Allergies: NKDA PSH: IVC filter placement Social: former smoker, quit 1 yr ago. Formerly smoked 3-4 packs/day. Former alcohol abuser. Denies illicit drug use Family: sister with diabetes. no hx of heart dz or cancer Next of kin: son, lives in [place] ER course: VS:afebrile, tachy 101 PE: diffuse bilateral wheezing and Rhonchi on auscultation. No rales abd: mild diffuse tenderness to palpation, no rebound noted, no rigidity or guarding labs: CBC, CMP, troponin I x 1 (neg) EKG: sinus tachycardia CXR: no active disease treatment: duoneb 9 ml inh, methyprednisolone 125 mg IV once, IV fluids Present on Admission - Present on Admission Any Indicators Present on Admission: No History of DVT/PE: Yes History of Uncontrolled Diabetes: No Urinary Catheter: No Decubitus Ulcer Present: No Review of Systems - Review of Systems All systems: reviewed and no additional remarkable complaints except (as per HPI ) Past Patient History - Infectious Disease Hx of Infectious Diseases: None - Tetanus Immunizations Tetanus Immunization: Unknown - Past Medical History & Family History Past Medical History?: Yes - Past Social History Smoking Status: Former Smoker - CARDIAC Hx Congestive Heart Failure: Yes Hx Hypertension: Yes - PULMONARY Hx Asthma: Yes Hx Chronic Obstructive Pulmonary Disease (COPD): Yes - NEUROLOGICAL Hx Neurological Disorder: No - HEENT Hx HEENT Problems: No - RENAL Hx Chronic Kidney Disease: No - ENDOCRINE/METABOLIC Hx Diabetes Mellitus Type 2: Yes - HEMATOLOGICAL/ONCOLOGICAL Hx Human Immunodeficiency Virus (HIV): No - INTEGUMENTARY Hx Dermatological Problems: Yes (GENERALIZED SKIN PSORIASIS) Hx Psoriasis: Yes - MUSCULOSKELETAL/RHEUMATOLOGICAL Hx Musculoskeletal Disorders: No Hx Falls: No - GASTROINTESTINAL Hx Gastrointestinal Disorders: Yes Other/Comment: GI bleeding - GENITOURINARY/GYNECOLOGICAL Hx Genitourinary Disorders: No - PSYCHIATRIC Hx Psychophysiologic Disorder: No Hx Substance Use: No - SURGICAL HISTORY Other/Comment: IVC Filter - ANESTHESIA Hx Anesthesia: Yes Hx Anesthesia Reactions: No Hx Malignant Hyperthermia: No Meds Allergies/Adverse Reactions: Allergies Allergy/AdvReac Type Severity Reaction Status Date / Time No Known Allergies Allergy Verified 10/18/17 19:45 Physical Exam - Constitutional Appears: Non-toxic, No Acute Distress - Eye Exam Eye Exam: Normal appearance - ENT Exam ENT Exam: Mucous Membranes Moist - Respiratory Exam Respiratory Exam: Chest Wall Tenderness, Rhonchi, Wheezes, NORMAL BREATHING PATTERN. absent: Rales - Cardiovascular Exam Cardiovascular Exam: Tachycardia, REGULAR RHYTHM, +S1, +S2 - GI/Abdominal Exam GI & Abdominal Exam: Soft, Tenderness (mild diffuse tenderness to palpation, but not rebound noted, not rigidity or guarding noted) - Extremities Exam Extremities exam: Negative for: calf tenderness, pedal edema - Back Exam Back exam: NORMAL INSPECTION. absent: CVA tenderness (L), CVA tenderness (R) - Neurological Exam Neurological exam: Alert, Oriented x3 - Psychiatric Exam Psychiatric exam: Normal Affect, Normal Mood - Skin Skin Exam: Dry, Intact, Normal Color Additional comments: psoriatic plaques noted to all four extremities and trunk -lichenification with xerosis noted to bilateral lower extremities Results - Vital Signs Recent Vital Signs: Last Vital Signs Temp 97.8 F 10/18/17 20:56 Pulse 107 H 10/18/17 20:56 Resp 20 10/18/17 20:56 BP 150/75 10/18/17 20:56 Pulse Ox 97 10/18/17 20:56 - Labs Result Diagrams: 10/18/17 17:40 10/18/17 17:40 Labs: Laboratory Results - last 24 hr 10/18/17 10/18/17 17:40 17:40 WBC 9.7 RBC 4.08 L Hgb 11.2 L Hct 34.1 L MCV 83.5 D MCH 27.5 MCHC 33.0 RDW 16.4 H Plt Count 271 MPV 9.3 Neut % (Auto) 47.9 L Lymph % (Auto) 33.3 [place] % (Auto) 11.3 H Eos % (Auto) 6.3 H Baso % (Auto) 1.2 Neut # (Auto) 4.6 Lymph # (Auto) 3.2 [place] # (Auto) 1.1 H Eos # (Auto) 0.6 Baso # (Auto) 0.1 Sodium 143 Potassium 4.7 Chloride 107 Carbon Dioxide 22 Anion Gap 19 BUN 16 Creatinine 1.0 Est GFR ( Amer) > 60 Est GFR (Non-Af Amer) > 60 Random Glucose 81 Calcium 8.8 Total Bilirubin 0.6 AST 32 ALT 21 D Alkaline Phosphatase 59 Troponin I < 0.0120 Total Protein 8.1 Albumin 3.5 Globulin 4.6 H Albumin/Globulin Ratio 0.8 L Assessment & Plan - Assessment and Plan (Free Text) Assessment: 67 y/o male with PMHx of COPD, DM, HTN, PE with IVC filter , psoriasis and Asthma admitted with COPD exacerbation. Plan: COPD exacerbation -could be a combination with Asthma exacerbation -afebrile, tachy ( most likely 2/2 albuterol in duoneb) -no leukocytosis -increase in SOB, cough with sputum production -Oxygen by NC at 2 LPM if oxygen sat < 94 % or as needed for SOB -Xopenex and Ipratropium INh Q 6 JEFFREY -Solumedrol 60 mg IV daily -start Levofloxacin 750 mg IV daily ( pt has risk factors for complicated COPD) -start advair diskus 250/50 Q12 for control -check influenza A and B -acetylcysteine 20 % 2 ml inh BID -repeat CBC in AM -elevated eosinophils in CBC -CXR reported as no active disease -Pulmonology consult as needed H/o Asthma -could be in exacerbation or in combination with COPD exacerbation -elevated eosinophils in CBC -Xopenex and Ipratropium INh Q 6 JEFFREY -Solumedrol 60 mg IV daily -start advair diskus 250/50 Q12 for control -Pulmonology consult as needed Dysuria -urinalysis -maintain PO hydration Diarrheas -associated with abd pain -could be 2/2 viral infection -check stool leukocytes, culture, FOBT HTN -as per other admissions patient was taking lisinopril 10 mg PO daily -resume lisinopril Upper and Lower extremity, trunk, lesions -Most likely Psoriasis chronic plaque -start triamcinolone 0.1 % BID -start ammonium lactate 12 % TOP TID -re-evaluate NIDDM2, controlled -Last HgbA1C was 6.2 % on 06/26/17 -unclear which PO hypoglycemic is taking at this time. [facility] metformin, glipizide, insulin in different admissions ( in different hospitals) -Accucheck ACHS -Insulin sliding scale low dose protocol for now -hypoglycemic protocol History of Left Inguinal Hernia -non reducible -no clinical evidence of strangulation at this time -Will need general surgery consult for follow up for possible repair as outpatient -testicular ultrasound done on 07/10/17 reported a left inguinal hernia -consider repeat US as needed Prophylaxis -s/p IVC filter( seen in abdominal/pelvis CT scan done on 06/28/17) -Lovenox SC QD - Date & Time Date: 10/18/17 Time: 20:45
[2017-10-18] MEDS ORDERED: Glucagon Recombinant 1 mg Inj IM PRN (21:03)
[2017-10-18] MEDS ORDERED: Dextrose 50% SYRINGE Inj (50 ml) IV PRN (21:03)
[2017-10-18] MEDS ORDERED: Albuterol-Ipratrop 3 mg / 0.5 (3 ml) UD INH PRN (21:04)
[2017-10-18] MEDS ORDERED: Azithromycin 500 MG in Sodium Chloride 0.9% 250 ML IVPB SCH (21:59)
[2017-10-19] MEDS ORDERED: Albuterol-Ipratrop 3 mg / 0.5 (3 ml) UD INH SCH
[2017-10-19] MEDS: Ipratropium 0.02% Inhal Soln (0.5 mg/2.5 ml) UD IH SCH ×4 (01:00→19:23)
[2017-10-19] MEDS: Triamcinolone 0.1% Orabase TUBE MM SCH ×3 (02:00→16:53)
[2017-10-19 06:10] LABS: BASO % 0.1 % (0.0-2.0); HEMOGLOBIN 11.3 g/dL (12.0-18.0); LYMPH # 1.3 K/uL (1.0-4.3); LYMPH % 17.5 % (20.0-40.0); MEAN CELL VOLUME 82.8 fl (80.0-94.0); MEAN CORPUSCULAR HEMOGLOBIN 27.5 pg (27.0-31.0); MEAN CORPUSCULAR HGB CONC 33.2 g/dL (33.0-37.0); MEAN PLATELET VOLUME 9.1 fl (7.2-11.7); MONO # 0.2 K/uL (0.0-0.8); MONO % 2.2 % (0.0-10.0); NEUT % 80.2 % (50.0-75.0); RBC 4.1 Mil/uL (4.40-5.90); WHITE BLOOD COUNT 7.5 K/uL (4.8-10.8)
[2017-10-19] MEDS: Insulin Regular 100 units/ml SC SCH ×4 (06:38→23:11)
[2017-10-19] MEDS: Acetylcysteine 20% Inhal Soln (4ml) INH SCH ×2 (07:51→19:23)
[2017-10-19] MEDS ORDERED: Levalbuterol 0.63 MG/3 ML Inhal Soln UD INH SCH (08:00)
[2017-10-19] MEDS ORDERED: methylPREDNISolone 60 MG in Sodium Chloride 0.9% 50 ML IV SCH (09:00)
[2017-10-19] MEDS ORDERED: Azithromycin 500 MG in Sodium Chloride 0.9% 250 ML IVPB SCH (09:00)
[2017-10-19] MEDS ORDERED: levoFLOXacin 750 mg in D5W 150 ML BAG IVPB SCH (09:00)
[2017-10-19] MEDS ORDERED: Tiotropium 18 mcg Cap For Inhalation INH SCH (09:00)
--- NOTE | 2017-10-19 09:03 | CP.PCM.PN ---
Subjective - Date & Time of Evaluation Date of Evaluation: 10/19/17 Time of Evaluation: 08:30 - Subjective Subjective: Pt seen and examined at bedside enjoying breakfast. Reports slight SOB but significantly improved from admission s/p nebulized and supplemental O2. Reports continued phlegmatous cough with green/brown sputum. Denies CP/N/V. Objective - Vital Signs/Intake and Output Vital Signs (last 24 hours): Temp Pulse Resp BP Pulse Ox 97.6 F 92 H 18 145/75 98 10/19/17 08:00 10/19/17 08:00 10/19/17 08:00 10/19/17 08:00 10/19/17 08:00 - Medications Medications: Current Medications Acetylcysteine (Acetylcysteine 20%) 2 ml INH RBID [facility] Last Admin: 10/19/17 07:51 Dose: 2 ml Dextrose (Dextrose 50% Inj) 0 ml IV STAT PRN; Protocol PRN Reason: Hypoglycemia Protocol Dextrose (Glutose 15) 0 gm PO ONCE PRN; Protocol PRN Reason: Hypoglycemia Protocol Enoxaparin Sodium (Lovenox) 40 mg SC DAILY [facility] PRN Reason: Protocol Glucagon (Glucagen Diagnostic Kit) 0 mg IM STAT PRN; Protocol PRN Reason: Hypoglycemia Protocol Levofloxacin/Dextrose (Levaquin 750mg) 750 mg in 150 mls @ 100 mls/hr IVPB DAILY [facility] Insulin Human Regular (Humulin R) 0 units SC ACHS [facility] PRN Reason: Protocol Last Admin: 10/19/17 06:38 Dose: 1 unit Ipratropium [place] (Atrovent) 0.5 mg IH RQ6 [facility] Last Admin: 10/19/17 07:51 Dose: 0.5 mg Lactic Acid (Lac-Hydrin 12% Lotion (225 G)) 1 applic TOP TID [facility] Levalbuterol HCl (Xopenex) 0.63 mg INH RQ8 [facility] Last Admin: 10/19/17 07:51 Dose: 0.63 mg Lisinopril (Zestril) 10 mg PO DAILY [facility] Methylprednisolone (Solu-Medrol) 60 mg IV DAILY [facility] Fluticasone/Salmeterol (Advair Diskus 250/50) 1 puff IH Q12 [facility] Triamcinolone Acetonide (Kenalog 0.1% In Orabase) 1 appl MM BID [facility] Last Admin: 10/19/17 02:00 Dose: 1 appl - Labs Labs: 10/19/17 04:20 10/18/17 17:40 - Constitutional Appears: Well, No Acute Distress - Eye Exam Eye Exam: EOMI - Neck Exam Neck Exam: Full ROM - Respiratory Exam Respiratory Exam: Rhonchi, Wheezes Additional comments: 2 L NC. - Cardiovascular Exam Cardiovascular Exam: REGULAR RHYTHM, +S1, +S2 - GI/Abdominal Exam GI & Abdominal Exam: Soft, Hernia, Normal Bowel Sounds. absent: Tenderness - Extremities Exam Extremities Exam: Full ROM - Neurological Exam Neurological Exam: Alert, Awake, CN II-XII Intact, Oriented x3 - Psychiatric Exam Psychiatric exam: Normal Affect, Normal Mood Assessment and Plan - Assessment and Plan (Free Text) Plan: 67 y/o male with PMHx of COPD, DM, HTN, PE with IVC filter, psoriasis and Asthma admitted with COPD exacerbation. COPD exacerbation -could be a combination with Asthma exacerbation -afebrile, no leukocytosis -increase in SOB, cough with sputum production -Oxygen by NC at 2 LPM if oxygen sat < 94 % or as needed for SOB -Xopenex and Ipratropium INh Q 4 [facility] -Solumedrol 60 mg IV daily -start Levofloxacin 750 mg IV daily (pt has risk factors for complicated COPD) -start advair diskus 250/50 Q12 for control -influenza A and B: neg for both -acetylcysteine 20 % 2 ml inh BID -elevated eosinophils in CBC -CXR reported as no active disease -Pulmonology consult appreciated -Sputum culture -f/u CBC in AM H/o Asthma -could be in exacerbation or in combination with COPD exacerbation -elevated eosinophils in CBC on admission, resolved. -Xopenex and Ipratropium INh Q 4 [facility] -Solumedrol 60 mg IV daily -start advair diskus 250/50 Q12 for control -Pulmonology consult appreciated Dysuria -urinalysis: pending -maintain PO hydration Diarrhea -associated with abd pain -could be 2/2 viral infection -stool leukocytes, culture, FOBT: pending HTN -as per other admissions patient was taking lisinopril 10 mg PO daily -resume lisinopril Upper and Lower extremity, trunk, lesions -Most likely Psoriasis chronic plaque -start triamcinolone 0.1 % BID -start ammonium lactate 12 % TOP TID -re-evaluate NIDDM2, controlled -Last HgbA1C was 6.2 % on 06/26/17 -unclear which PO hypoglycemic is taking at this time. [facility] was in metformin, glipizide, insulin in different admissions (in different hospitals) -Accucheck ACHS -Insulin sliding scale low dose protocol for now -hypoglycemic protocol -f/u hgba1c History of Left Inguinal Hernia -non reducible -no clinical evidence of strangulation at this time -Will need general surgery consult for follow up for possible repair as outpatient -testicular ultrasound done on 07/10/17 reported a left inguinal hernia -consider repeat US as needed Prophylaxis -s/p IVC filter (seen in abdominal/pelvis CT scan done on 06/28/17) -Lovenox SC QD
[2017-10-19] MEDS: Enoxaparin 40 mg Syringe SC SCH (09:30)
[2017-10-19] MEDS: Fluticasone-Salmeterol 250-50mcg Diskus IH SCH ×2 (09:30→22:40)
[2017-10-19] MEDS ORDERED: Sodium Chloride 3% for Inhalation 4 ML VIAL.NEB IH PRN (11:50)
[2017-10-19 14:55] LABS: ABG ALLEN TEST YES; ARTERIAL BLOOD GAS HCO3 25.1 mmol/L (21-28); ARTERIAL BLOOD GAS HEMOGLOBIN 11.5 g/dL (11.7-17.4); ARTERIAL BLOOD GAS O2 CAPACITY 15.9 mL/dL (16-24); ARTERIAL BLOOD GAS O2 CONTENT 15.8 ML/dL (15-23); ARTERIAL BLOOD GAS O2 SAT 99.3 % (95-98); ARTERIAL BLOOD GAS PCO2 38 mm/Hg (35-45); ARTERIAL BLOOD GAS PH 7.42 (7.35-7.45); ARTERIAL BLOOD GAS PO2 104 mm/Hg (80-100); ARTERIAL BLOOD GAS TCO2 25.8 mmol/L (22-28)
[2017-10-19] MEDS: Levalbuterol 0.63 MG/3 ML Inhal Soln UD INH SCH ×2 (14:59→19:23)
[2017-10-19 23:48] LABS: URINE BILIRUBIN NEGATIVE (NEGATIVE); URINE BLOOD NEGATIVE (NEGATIVE); URINE CLARITY CLEAR (Clear); URINE COLOR STRAW (YELLOW); URINE GLUCOSE (UA) 50 mg/dL (Normal); URINE LEUKOCYTE ESTERASE NEG Leu/uL (Negative); URINE PROTEIN NEGATIVE (NEGATIVE); URINE UROBILINOGEN 0.2-1.0 mg/dL (0.2-1.0)
[2017-10-20] MEDS: Levalbuterol 0.63 MG/3 ML Inhal Soln UD INH SCH ×2 (00:14→04:53)
[2017-10-20] MEDS: Ipratropium 0.02% Inhal Soln (0.5 mg/2.5 ml) UD IH SCH ×2 (00:14→04:53)
[2017-10-20 05:42] LABS: BASO % 0.3 % (0.0-2.0); HEMOGLOBIN 10.9 g/dL (12.0-18.0); LYMPH # 2.9 K/uL (1.0-4.3); LYMPH % 21.2 % (20.0-40.0); MEAN CELL VOLUME 83.6 fl (80.0-94.0); MEAN CORPUSCULAR HEMOGLOBIN 27.2 pg (27.0-31.0); MEAN CORPUSCULAR HGB CONC 32.5 g/dL (33.0-37.0); MEAN PLATELET VOLUME 8.8 fl (7.2-11.7); MONO # 1.2 K/uL (0.0-0.8); MONO % 8.8 % (0.0-10.0); NEUT # 9.6 K/uL (1.8-7.0); NEUT % 69.7 % (50.0-75.0); RBC 4.01 Mil/uL (4.40-5.90); RED CELL DISTRIBUTION WIDTH 16.2 % (11.5-14.5); WHITE BLOOD COUNT 13.7 K/uL (4.8-10.8)
[2017-10-20 06:40] LABS: BLOOD UREA NITROGEN 27 mg/dl (9-20); CALCIUM 8.6 mg/dL (8.4-10.2); GFR AFRICAN-AMERICAN > 60; GFR NON-AFRICAN AMERICAN > 60
[2017-10-20] MEDS ORDERED: Albuterol-Ipratrop 3 mg / 0.5 (3 ml) UD INH PRN (07:27)
[2017-10-20] MEDS: Acetylcysteine 20% Inhal Soln (4ml) INH SCH ×2 (08:08→19:10)
--- NOTE | 2017-10-20 09:02 | CP.PCM.PN ---
Subjective - Date & Time of Evaluation Date of Evaluation: 10/20/17 Time of Evaluation: 07:40 - Subjective Subjective: Preet was seen and evaluated at bedside resting. Reports continued SOB with productive brown sputum. Reports improvement in psoriatic dermal pruritis. Denies CP at rest, N/V. Continued diarrhea and dysuria. Tolerating po diet. Objective - Vital Signs/Intake and Output Vital Signs (last 24 hours): Temp Pulse Resp BP Pulse Ox 98.1 F 77 20 129/58 L 100 10/20/17 08:33 10/20/17 08:33 10/20/17 08:33 10/20/17 08:33 10/20/17 08:33 - Medications Medications: Current Medications Acetylcysteine (Acetylcysteine 20%) 2 ml INH RBID [facility] Last Admin: 10/19/17 19:23 Dose: Not Given Albuterol/Ipratropium (Duoneb 3 Mg/0.5 Mg (3 Ml) Ud) 3 ml INH RQID [facility] Dextrose (Dextrose 50% Inj) 0 ml IV STAT PRN; Protocol PRN Reason: Hypoglycemia Protocol Dextrose (Glutose 15) 0 gm PO ONCE PRN; Protocol PRN Reason: Hypoglycemia Protocol Enoxaparin Sodium (Lovenox) 40 mg SC DAILY [facility] PRN Reason: Protocol Last Admin: 10/19/17 09:30 Dose: 40 mg Glucagon (Glucagen Diagnostic Kit) 0 mg IM STAT PRN; Protocol PRN Reason: Hypoglycemia Protocol Levofloxacin/Dextrose (Levaquin 750mg) 750 mg in 150 mls @ 100 mls/hr IVPB DAILY [facility] Last Admin: 10/19/17 09:36 Dose: 100 mls/hr Insulin Human Regular (Humulin R) 0 units SC ACHS [facility] PRN Reason: Protocol Last Admin: 10/19/17 23:11 Dose: Not Given Lactic Acid (Lac-Hydrin 12% Lotion (225 G)) 1 applic TOP TID [facility] Last Admin: 10/19/17 16:53 Dose: 1 applic Lisinopril (Zestril) 10 mg PO DAILY [facility] Last Admin: 10/19/17 09:29 Dose: 10 mg Methylprednisolone (Solu-Medrol) 60 mg IV DAILY [facility] Last Admin: 10/19/17 09:36 Dose: 60 mg Fluticasone/Salmeterol (Advair Diskus 250/50) 1 puff IH Q12 [facility] Last Admin: 10/19/17 22:40 Dose: 1 puff Triamcinolone Acetonide (Kenalog 0.1% In Orabase) 1 appl MM BID [facility] Last Admin: 10/19/17 16:53 Dose: 1 appl - Labs Labs: 10/20/17 04:20 10/20/17 04:20 - Constitutional Appears: Well, No Acute Distress - Eye Exam Eye Exam: EOMI - Respiratory Exam Respiratory Exam: Rhonchi, Wheezes - Cardiovascular Exam Cardiovascular Exam: REGULAR RHYTHM, +S1, +S2 - GI/Abdominal Exam GI & Abdominal Exam: Soft, Normal Bowel Sounds. absent: Tenderness - Back Exam Back Exam: absent: CVA tenderness (L), CVA tenderness (R) - Neurological Exam Neurological Exam: Alert, Awake, CN II-XII Intact, Oriented x3 - Psychiatric Exam Psychiatric exam: Normal Affect, Normal Mood Assessment and Plan - Assessment and Plan (Free Text) Plan: 67 y/o male with PMHx of COPD, DM, HTN, PE with IVC filter, psoriasis and Asthma admitted with COPD exacerbation. COPD exacerbation -could be a combination with Asthma exacerbation -afebrile, no leukocytosis -increase in SOB, cough with sputum production -Oxygen by NC at 2 LPM if oxygen sat < 94 % or as needed for SOB -Duoneb 3ml RQID -Solumedrol 60 mg IV daily -Levofloxacin 750 mg IV daily (pt has risk factors for complicated COPD) -influenza A and B: neg for both -acetylcysteine 20 % 2 ml inh BID -elevated eosinophils in CBC; resolved -CXR reported as no active disease -Pulmonology consult appreciated; pending -Sputum culture: pending -alpha 1 anti trypsin: pending H/o Asthma -could be in exacerbation or in combination with COPD exacerbation -elevated eosinophils in CBC on admission, resolved. -Duoneb 3ml RQID -Solumedrol 60 mg IV daily -Pulmonology consult appreciated Dysuria -urinalysis: neg -maintain PO hydration Diarrhea -associated with abd pain -could be 2/2 viral infection -stool leukocytes, culture: pending -FOBT: negative HTN -as per other admissions patient was taking lisinopril 10 mg PO daily -resume lisinopril Upper and Lower extremity, trunk, lesions -Most likely Psoriasis chronic plaque -start triamcinolone 0.1 % BID -start ammonium lactate 12 % TOP TID -re-evaluate NIDDM2, controlled -Last HgbA1C was 6.2 % on 06/26/17 -unclear which PO hypoglycemic is taking at this time. As per records in [facility] was in metformin, glipizide, insulin in different admissions (in different hospitals) -Accucheck ACHS -Insulin sliding scale low dose protocol for now -hypoglycemic protocol -f/u hgba1c: pending History of Left Inguinal Hernia -non reducible -no clinical evidence of strangulation at this time -Will follow up for possible repair as outpatient with gen surg -testicular ultrasound done on 07/10/17 reported a left inguinal hernia -consider repeat US Prophylaxis -s/p IVC filter (seen in abdominal/pelvis CT scan done on 06/28/17) -Lovenox SC QD
[2017-10-20] MEDS: Enoxaparin 40 mg Syringe SC SCH (10:25)
[2017-10-20] MEDS: Insulin Regular 100 units/ml SC SCH ×3 (10:25→21:53)
[2017-10-20] MEDS: Triamcinolone 0.1% Orabase TUBE MM SCH ×2 (10:25→16:58)
[2017-10-20] MEDS: Fluticasone-Salmeterol 250-50mcg Diskus IH SCH ×2 (10:26→21:48)
[2017-10-20] MEDS: Albuterol-Ipratrop 3 mg / 0.5 (3 ml) UD INH SCH ×3 (11:08→19:07)
[2017-10-20] MEDS: guaiFENesin 600 mg ER Tab PO SCH (21:48)
--- NOTE | 2017-10-20 21:52 | CP.PCM.CON ---
History of Present Illness - History of Present Illness History of Present Illness: Acute Resp Insuff. Former Heavy smoker. s/ no plumoarny sx O/ VS Stable O2 Sat was 95% on Room Air Head: Neg [place] Pos [place] Heart: Ns1s2, RRR, neg m Lungs: distant bs, mod expiratory wheezing Abdo: s, nt, pos bs Ext: no c,c,e Neuro: Grossly non focal A/P Cont nebulized treatments and steriods. Change Rx to PO and f/u at Pulmonary clinic. PUD and DVT Px. PFT's as inpatient. Signing out of case; patient is very stable. Reconsult PRN Past Patient History - Infectious Disease Hx of Infectious Diseases: None - Tetanus Immunizations Tetanus Immunization: Unknown - Past Medical History & Family History Past Medical History?: Yes - Past Social History Smoking Status: Former Smoker - CARDIAC Hx Congestive Heart Failure: Yes Hx Hypertension: Yes - PULMONARY Hx Asthma: Yes Hx Chronic Obstructive Pulmonary Disease (COPD): Yes - NEUROLOGICAL Hx Neurological Disorder: No - HEENT Hx HEENT Problems: No - RENAL Hx Chronic Kidney Disease: No - ENDOCRINE/METABOLIC Hx Diabetes Mellitus Type 2: Yes - HEMATOLOGICAL/ONCOLOGICAL Hx Human Immunodeficiency Virus (HIV): No - INTEGUMENTARY Hx Dermatological Problems: Yes (GENERALIZED SKIN PSORIASIS) Hx Psoriasis: Yes - MUSCULOSKELETAL/RHEUMATOLOGICAL Hx Musculoskeletal Disorders: No Hx Falls: No - GASTROINTESTINAL Hx Gastrointestinal Disorders: Yes Other/Comment: GI bleeding - GENITOURINARY/GYNECOLOGICAL Hx Genitourinary Disorders: No - PSYCHIATRIC Hx Psychophysiologic Disorder: No Hx Substance Use: No - SURGICAL HISTORY Other/Comment: IVC Filter - ANESTHESIA Hx Anesthesia: Yes Hx Anesthesia Reactions: No Hx Malignant Hyperthermia: No Meds Allergies/Adverse Reactions: Allergies Allergy/AdvReac Type Severity Reaction Status Date / Time No Known Allergies Allergy Verified 10/18/17 19:45 - Medications Medications: Current Medications Acetylcysteine (Acetylcysteine 20%) 2 ml INH RBID [facility] Last Admin: 10/20/17 08:08 Dose: Not Given Albuterol/Ipratropium (Duoneb 3 Mg/0.5 Mg (3 Ml) Ud) 3 ml INH RQID [facility] Last Admin: 10/20/17 19:07 Dose: 3 ml Dextrose (Dextrose 50% Inj) 0 ml IV STAT PRN; Protocol PRN Reason: Hypoglycemia Protocol Dextrose (Glutose 15) 0 gm PO ONCE PRN; Protocol PRN Reason: Hypoglycemia Protocol Enoxaparin Sodium (Lovenox) 40 mg SC DAILY [facility] PRN Reason: Protocol Last Admin: 10/20/17 10:25 Dose: 40 mg Glucagon (Glucagen Diagnostic Kit) 0 mg IM STAT PRN; Protocol PRN Reason: Hypoglycemia Protocol Guaifenesin (Mucinex [place]) 600 mg PO Q12 [facility] Last Admin: 10/20/17 21:48 Dose: 600 mg Levofloxacin/Dextrose (Levaquin 750mg) 750 mg in 150 mls @ 100 mls/hr IVPB DAILY [facility] Last Admin: 10/20/17 10:23 Dose: 100 mls/hr Insulin Human Regular (Humulin R) 0 units SC ACHS [facility] PRN Reason: Protocol Last Admin: 10/20/17 16:55 Dose: Not Given Lactic Acid (Lac-Hydrin 12% Lotion (225 G)) 1 applic TOP TID [facility] Last Admin: 10/20/17 16:57 Dose: 1 applic Lisinopril (Zestril) 10 mg PO DAILY [facility] Last Admin: 10/20/17 10:26 Dose: 10 mg Prednisone (Prednisone Tab) 40 mg PO DAILY [facility] Fluticasone/Salmeterol (Advair Diskus 250/50) 1 puff IH Q12 [facility] Last Admin: 10/20/17 21:48 Dose: 1 puff Triamcinolone Acetonide (Kenalog 0.1% In Orabase) 1 appl MM BID [facility] Last Admin: 10/20/17 16:58 Dose: 1 appl Results - Vital Signs Recent Vital Signs: Last Vital Signs Temp 97.4 F L 10/20/17 20:07 Pulse 75 10/20/17 20:07 Resp 20 10/20/17 20:07 BP 147/70 10/20/17 20:07 Pulse Ox 99 10/20/17 20:07 - Labs Result Diagrams: 10/20/17 04:20 10/20/17 04:20 Labs: Laboratory Results - last 24 hr 10/18/17 10/19/17 10/19/17 22:00 22:12 23:40 WBC RBC Hgb Hct MCV MCH MCHC RDW Plt Count MPV Neut % (Auto) Lymph % (Auto) [place] % (Auto) Eos % (Auto) Baso % (Auto) Neut # (Auto) Lymph # (Auto) [place] # (Auto) Eos # (Auto) Baso # (Auto) Sodium Potassium Chloride Carbon Dioxide Anion Gap BUN Creatinine Est GFR ( Amer) Est GFR (Non-Af Amer) POC Glucose (mg/dL) 143 H Random Glucose Hemoglobin A1c Calcium Urine Color Straw Urine Clarity Clear Urine pH 6.0 Ur Specific [place] 1.011 Urine Protein Negative Urine Glucose (UA) 50 Urine Ketones Negative Urine Blood Negative Urine Nitrate Negative Urine Bilirubin Negative Urine Urobilinogen 0.2-1.0 Ur Leukocyte Esterase Neg Urine Microscopic WBC < 1 Stool Leukocytes, Qual Negative 10/20/17 10/20/17 10/20/17 04:20 04:20 04:20 WBC 13.7 H D RBC 4.01 L Hgb 10.9 L Hct 33.5 L MCV 83.6 MCH 27.2 MCHC 32.5 L RDW 16.2 H Plt Count 241 MPV 8.8 Neut % (Auto) 69.7 Lymph % (Auto) 21.2 [place] % (Auto) 8.8 Eos % (Auto) 0.0 Baso % (Auto) 0.3 Neut # (Auto) 9.6 H Lymph # (Auto) 2.9 [place] # (Auto) 1.2 H Eos # (Auto) 0.0 Baso # (Auto) 0.0 Sodium 142 Potassium 4.4 Chloride 104 Carbon Dioxide 24 Anion Gap 18 BUN 27 H Creatinine 1.0 Est GFR ( Amer) > 60 Est GFR (Non-Af Amer) > 60 POC Glucose (mg/dL) Random Glucose 150 H Hemoglobin A1c 5.9 Calcium 8.6 Urine Color Urine Clarity Urine pH Ur Specific [place] Urine Protein Urine Glucose (UA) Urine Ketones Urine Blood Urine Nitrate Urine Bilirubin Urine Urobilinogen Ur Leukocyte Esterase Urine Microscopic WBC Stool Leukocytes, Qual 10/20/17 10/20/17 05:31 11:09 WBC RBC Hgb Hct MCV MCH MCHC RDW Plt Count MPV Neut % (Auto) Lymph % (Auto) [place] % (Auto) Eos % (Auto) Baso % (Auto) Neut # (Auto) Lymph # (Auto) [place] # (Auto) Eos # (Auto) Baso # (Auto) Sodium Potassium Chloride Carbon Dioxide Anion Gap BUN Creatinine Est GFR ( Amer) Est GFR (Non-Af Amer) POC Glucose (mg/dL) 114 H 100 Random Glucose Hemoglobin A1c Calcium Urine Color Urine Clarity Urine pH Ur Specific [place] Urine Protein Urine Glucose (UA) Urine Ketones Urine Blood Urine Nitrate Urine Bilirubin Urine Urobilinogen Ur Leukocyte Esterase Urine Microscopic WBC Stool Leukocytes, Qual
[2017-10-21 06:26] LABS: HEMOGLOBIN 11.8 g/dL (12.0-18.0); MEAN CELL VOLUME 82.7 fl (80.0-94.0); MEAN CORPUSCULAR HGB CONC 32.6 g/dL (33.0-37.0); RBC 4.36 Mil/uL (4.40-5.90); RED CELL DISTRIBUTION WIDTH 16.1 % (11.5-14.5); WHITE BLOOD COUNT 12.8 K/uL (4.8-10.8)
[2017-10-21] MEDS: Insulin Regular 100 units/ml SC SCH ×3 (06:44→17:04)
[2017-10-21 06:51] LABS: ALB/GLOB RATIO 0.8 (1.0-2.1); ALBUMIN 3.5 g/dL (3.5-5.0); ALT/SGPT 28 U/L (21-72); AST/SGOT 26 U/L (17-59); BLOOD UREA NITROGEN 31 mg/dl (9-20); CALCIUM 9.1 mg/dL (8.4-10.2); GFR AFRICAN-AMERICAN > 60; GFR NON-AFRICAN AMERICAN > 60
[2017-10-21] MEDS: Acetylcysteine 20% Inhal Soln (4ml) INH SCH (07:14)
[2017-10-21] MEDS: Albuterol-Ipratrop 3 mg / 0.5 (3 ml) UD INH SCH ×3 (07:14→15:46)
[2017-10-21] MEDS: guaiFENesin 600 mg ER Tab PO SCH (08:11)
[2017-10-21] MEDS: Fluticasone-Salmeterol 250-50mcg Diskus IH SCH (08:12)
[2017-10-21] MEDS: Triamcinolone 0.1% Orabase TUBE MM SCH ×2 (08:12→17:04)
[2017-10-21] MEDS: Enoxaparin 40 mg Syringe SC SCH (08:13)
--- NOTE | 2017-10-21 11:16 | CP.PCM.DIS ---
Provider - Provider Date of Admission: 10/19/17 15:23 Attending physician: Fanny Cash MD Time Spent in preparation of Discharge (in minutes): 20 Diagnosis - Discharge Diagnosis (1) Acute exacerbation of chronic obstructive pulmonary disease Status: Acute Hospital Course - Lab Results Lab Results: Micro Results 10/20/17 18:31 Sputum Gram Stain - Final Most Recent Lab Values WBC 12.8 K/uL (4.8-10.8) H 10/21/17 05:50 RBC 4.36 Mil/uL (4.40-5.90) L 10/21/17 05:50 Hgb 11.8 g/dL (12.0-18.0) L 10/21/17 05:50 Hct 36.1 % (35.0-51.0) 10/21/17 05:50 MCV 82.7 fl (80.0-94.0) 10/21/17 05:50 MCH 27.0 pg (27.0-31.0) 10/21/17 05:50 MCHC 32.6 g/dL (33.0-37.0) L 10/21/17 05:50 RDW 16.1 % (11.5-14.5) H 10/21/17 05:50 Plt Count 264 K/uL (130-400) 10/21/17 05:50 MPV 8.8 fl (7.2-11.7) 10/20/17 04:20 Neut % (Auto) 69.7 % (50.0-75.0) 10/20/17 04:20 Lymph % (Auto) 21.2 % (20.0-40.0) 10/20/17 04:20 [place] % (Auto) 8.8 % (0.0-10.0) 10/20/17 04:20 Eos % (Auto) 0.0 % (0.0-4.0) 10/20/17 04:20 Baso % (Auto) 0.3 % (0.0-2.0) 10/20/17 04:20 Neut # (Auto) 9.6 K/uL (1.8-7.0) H 10/20/17 04:20 Lymph # (Auto) 2.9 K/uL (1.0-4.3) 10/20/17 04:20 [place] # (Auto) 1.2 K/uL (0.0-0.8) H 10/20/17 04:20 Eos # (Auto) 0.0 K/uL (0.0-0.7) 10/20/17 04:20 Baso # (Auto) 0.0 K/uL (0.0-0.2) 10/20/17 04:20 pCO2 38 mm/Hg (35-45) 10/19/17 14:50 pO2 104 mm/Hg (80-100) H 10/19/17 14:50 HCO3 25.1 mmol/L (21-28) 10/19/17 14:50 ABG pH 7.42 (7.35-7.45) 10/19/17 14:50 ABG Total CO2 25.8 mmol/L (22-28) 10/19/17 14:50 ABG O2 Saturation 99.3 % (95-98) H 10/19/17 14:50 ABG O2 Content 15.8 ML/dL (15-23) 10/19/17 14:50 ABG Base Excess 0.2 mmol/L (-2.0-3.0) 10/19/17 14:50 ABG Hemoglobin 11.5 g/dL (11.7-17.4) L 10/19/17 14:50 ABG Carboxyhemoglobin 1.8 % (0.5-1.5) H 10/19/17 14:50 POC ABG HHb (Measured) 0.7 % (0.0-5.0) 10/19/17 14:50 ABG Methemoglobin 0.8 % (0.0-3.0) 10/19/17 14:50 ABG O2 Capacity 15.9 mL/dL (16-24) L 10/19/17 14:50 Slim Test Yes 10/19/17 14:50 A-a O2 Difference 48.0 mm/Hg 10/19/17 14:50 Hgb O2 Saturation 96.8 % (95.0-98.0) 10/19/17 14:50 FiO2 28.0 % 10/19/17 14:50 Sodium 142 mmol/l (132-148) 10/21/17 05:50 Potassium 4.9 MMOL/L (3.6-5.0) 10/21/17 05:50 Chloride 104 mmol/L (98-107) 10/21/17 05:50 Carbon Dioxide 24 mmol/L (22-30) 10/21/17 05:50 Anion Gap 19 (10-20) 10/21/17 05:50 BUN 31 mg/dl (9-20) H 10/21/17 05:50 Creatinine 1.1 mg/dl (0.8-1.5) 10/21/17 05:50 Est GFR ( Amer) > 60 10/21/17 05:50 Est GFR (Non-Af Amer) > 60 10/21/17 05:50 POC Glucose (mg/dL) 165 mg/dL (65-110) H 10/21/17 10:57 Random Glucose 106 mg/dL (75-110) 10/21/17 05:50 Hemoglobin A1c 5.9 % (4.2-6.5) 10/20/17 04:20 Calcium 9.1 mg/dL (8.4-10.2) 10/21/17 05:50 Total Bilirubin 0.4 mg/dl (0.2-1.3) 10/21/17 05:50 AST 26 U/L (17-59) 10/21/17 05:50 ALT 28 U/L (21-72) 10/21/17 05:50 Alkaline Phosphatase 46 U/L (38-126) 10/21/17 05:50 Troponin I < 0.0120 ng/mL (0.00-0.120) 10/18/17 17:40 Total Protein 7.8 G/DL (6.3-8.2) 10/21/17 05:50 Albumin 3.5 g/dL (3.5-5.0) 10/21/17 05:50 Globulin 4.2 gm/dL (2.2-3.9) H 10/21/17 05:50 Albumin/Globulin Ratio 0.8 (1.0-2.1) L 10/21/17 05:50 Nlsya-5-Tydfhtasbfo 123 mg/dL (83-199) 10/20/17 04:20 Urine Color Straw (YELLOW) 10/19/17 23:40 Urine Clarity Clear (Clear) 10/19/17 23:40 Urine pH 6.0 (5.0-8.0) 10/19/17 23:40 Ur Specific [place] 1.011 (1.003-1.030) 10/19/17 23:40 Urine Protein Negative mg/dL (NEGATIVE) 10/19/17 23:40 Urine Glucose (UA) 50 mg/dL (Normal) 10/19/17 23:40 Urine Ketones Negative mg/dL (NEGATIVE) 10/19/17 23:40 Urine Blood Negative (NEGATIVE) 10/19/17 23:40 Urine Nitrate Negative (NEGATIVE) 10/19/17 23:40 Urine Bilirubin Negative (NEGATIVE) 10/19/17 23:40 Urine Urobilinogen 0.2-1.0 mg/dL (0.2-1.0) 10/19/17 23:40 Ur Leukocyte Esterase Neg [place]/uL (Negative) 10/19/17 23:40 Urine Microscopic WBC < 1 /hpf (0-5) 10/19/17 23:40 Stool Occult Blood Negative (NEGATIVE) 10/19/17 16:12 Stool Leukocytes, Qual Negative (NEGATIVE) 10/18/17 22:00 Influenza Typ A,B (EIA) Negative for flu a/b (NEGATIVE) 10/18/17 21:45 - Hospital Course Hospital Course: 67 y/o male with PMHx of COPD, DM, HTN, PE with IVC filter, psoriasis and Asthma admitted with Asthma/COPD exacerbation. Pt was stable on duoneb and seen by Pulmonology Dr. Guerrero; Continued home meds and stable. Added Levofloxacin 750 mg q 7 days (sent for 4 day PO course to [facility] along with mucinex #15) Pt symptoms significantly improved compared to admission; Pt able to tolerate PO diet, verbally communicates without audible wheezing or shortness of breath. 6 minute walk test without significant desaturation. Discharge Exam - Eye Exam Eye Exam: EOMI - ENT Exam ENT Exam: Mucous Membranes Moist - Respiratory Exam Respiratory Exam: Wheezes - Cardiovascular Exam Cardiovascular Exam: +S1, +S2 - GI/Abdominal Exam GI & Abdominal Exam: Normal Bowel Sounds, Soft. absent: Tenderness - Neurological Exam Neurological exam: Alert, CN II-XII Intact, Oriented x3 - Psychiatric Exam Psychiatric exam: Normal Affect, Normal Mood Discharge Plan - Discharge Medications Prescriptions: Albuterol/Ipratropium [Duoneb 3 mg/0.5 mg (3 ml) UD] 3 ml INH RQID 30 Days #120 neb Ammonium Lactate 12% [Lac-Hydrin 12% Lotion (225 g)] 1 applic TOP TID #1 bottle guaiFENesin [Mucinex LA] 600 mg PO Q12 #60 tab Guaifenesin [Mucinex] 600 mg PO DAILY #15 tab.er.12h Levofloxacin [Levaquin] 750 mg PO DAILY 4 Days #4 tablet Lisinopril [Zestril] 10 mg PO DAILY #30 tab Methylprednisolone [Medrol Dose Pack (21 tabs)] 4 mg PO DAILY #21 mg - Follow Up Plan Condition: FAIR Disposition: HOME/ ROUTINE Patient education suggested?: Yes Instructions: Chronic Obstructive Pulmonary Disease (COPD), Including Emphysema , Exacerbation of COPD Additional Instructions: Please follow up with Dr. Meehan on 10/28/2017 at 03:00 at [facility]
[2017-10-21 16:13] VITALS: BP 126/85; PULSE 78; RESP 18; TEMP 97.9; O2SAT 99
== END 2017-10-21 18:00 | disposition home or self-care (01) | DRG 88 ==
LOC: H.ER 16:17 → H.ERHOLD 19:03 → H.TEL 20:55 → OBSVTOIN 10-19 15:23 → H.TEL 10-20 09:50
PROVIDERS: ADMIT Family Medicine; ATTEND Family Medicine
PROC: 3E0F73Z Introduction of Anti-inflammatory into Respiratory Tract, Via Natural or Artificial Opening (ICD-10-PCS; principal; 2017-10-19)
DX: J44.1 Chronic obstructive pulmonary disease with (acute) exacerbation (principal); I11.0 Hypertensive heart disease with heart failure; I50.9 Heart failure, unspecified; E11.9 Type 2 diabetes mellitus without complications; L40.9 Psoriasis, unspecified; K27.9 Peptic ulcer, site unspecified, unspecified as acute or chronic, without hemorrhage or perforation; R19.7 Diarrhea, unspecified; Z91.14 Patient's other noncompliance with medication regimen; Z87.891 Personal history of nicotine dependence; Z86.711 Personal history of pulmonary embolism

== ENCOUNTER 2017-12-12 14:41 | Inpatient (IN) | payer SELFPAY ==
[2017-12-12 14:41] VITALS: BMI 26.6
[2017-12-12] MEDS ORDERED: Albuterol-Ipratrop 3 mg / 0.5 (3 ml) UD INH STA ×3 (15:23→19:17)
[2017-12-12] MEDS ORDERED: Albuterol-Ipratrop 3 mg / 0.5 (3 ml) UD ONE ×3 (15:39→19:41)
--- NOTE | 2017-12-12 15:39 | ED PDOC ---
HPI: Chest Pain Time Seen by Provider: 12/12/17 15:11 Chief Complaint (Nursing): Chest Pain Chief Complaint (Provider): Chest Pain History Per: Patient History/Exam Limitations: no limitations Onset/Duration Of Symptoms: Days (x3 days) Additional Complaint(s): 67 y/o male presents to the ED complaining of chest pain and shortness of breath x 3 days. Reports cough x 2 days with yellow sputum and subjective fever last night. Patient is also complaining of bilateral leg swelling. Patient has been in the ED multiple times. Denies any further medical complaints. PMD: none Past Medical History Reviewed: Historical Data, Nursing Documentation, Vital Signs Vital Signs: Last Vital Signs Temp 98.1 F 12/12/17 18:21 Pulse 77 12/12/17 18:21 Resp 20 12/12/17 18:21 BP 138/82 12/12/17 18:21 Pulse Ox 97 12/12/17 18:21 - Medical History PMH: Asthma, CHF, COPD, Diabetes, HTN, Pneumonia, Pulmonary Embolism Denies: HIV, Chronic Kidney Disease - Surgical History Other surgeries: IVC filter - Family History Family History: States: [place], Diabetes - Social History Current smoker - smoking cessation education provided: No (Former Smoker) Alcohol: None Drugs: Denies - Immunization History Hx Tetanus Toxoid Vaccination: No Hx Influenza Vaccination: No Hx Pneumococcal Vaccination: No - Home Medications Home Medications: Ambulatory Orders Medication Instructions Recorded No Known Home Med 12/12/17 - Allergies Allergies/Adverse Reactions: Allergies Allergy/AdvReac Type Severity Reaction Status Date / Time No Known Allergies Allergy Verified 12/12/17 14:45 Review of Systems ROS Statement: Except As Marked, All Systems Reviewed And Found Negative (As per HPI, otherwise negative) Constitutional: Positive for: Fever (subjective) Cardiovascular: Positive for: Chest Pain Respiratory: Positive for: Cough (with yellow sputum), Shortness of Breath Musculoskeletal: Positive for: Leg Pain (bilateral leg swelling) Physical Exam - Reviewed Nursing Documentation Reviewed: Yes Vital Signs Reviewed: Yes - Physical Exam Appears: Positive for: Non-toxic, No Acute Distress Head Exam: Positive for: ATRAUMATIC, NORMAL INSPECTION, NORMOCEPHALIC Skin: Positive for: Normal Color, Warm, Dry Eye Exam: Positive for: EOMI, Normal appearance, PERRL ENT: Positive for: Normal ENT Inspection Neck: Positive for: Normal, Painless ROM Cardiovascular/Chest: Positive for: Tachycardia (but has regular rhythm). Negative for: Murmur Respiratory: Positive for: Wheezing (bilateral). Negative for: Accessory Muscle Use, Respiratory Distress (Patient is speaking in full sentences) Gastrointestinal/Abdominal: Positive for: Normal Exam, Soft. Negative for: Tenderness Back: Positive for: Normal Inspection Extremity: Positive for: Pedal Edema (+1 pitting edema bilaterally) Neurologic/Psych: Positive for: Alert, Oriented (x3) - Laboratory Results Result Diagrams: 12/12/17 15:38 12/12/17 15:38 - ECG Interpretation Of ECG: ST @ 111, no ST-T changes. O2 Sat by Pulse Oximetry: 100 (RA) Pulse Ox Interpretation: Normal Medical Decision Making Medical Decision Making: Time: 15:23 Initial Impression: chest pain and shortness of breath Differential diagnosis: CHF, COPD, CAD Plan: EKG BNP CMP Troponin I Urine dipstick CBC w/ differential PTT Prothrombin time Chest x-ray Albuterol/Ipratropium 3ml INH Methylprednisolone 125mg IVP Blood culture Peak flow pre/post tx Urinalysis US duplex lower extremity Reevaluation Time: 16:26 Chest x-ray FINDINGS: LUNGS: The lungs are well inflated and clear. PLEURA: No pneumothorax or pleural fluid seen. CARDIOVASCULAR: Normal. Within normal limits OSSEOUS STRUCTURES: Within normal limits for the patient's age. There is an old fracture deformity in the right posterior 9th rib. VISUALIZED UPPER ABDOMEN: Normal. OTHER FINDINGS: None. IMPRESSION: No active pulmonary disease. Time: 17:00 Extremity US FINDINGS: COMMON FEMORAL VEIN: Right CFV: Normal color flow, compressibility and augmentation response. Left CFV: Normal color flow, compressibility and augmentation response. SUPERFICIAL FEMORAL VEIN: Right SFV: Normal color flow, compressibility and augmentation response. Left SFV: Normal color flow, compressibility and augmentation response. POPLITEAL VEIN: Right Popliteal: Normal color flow, compressibility and augmentation response. Left Popliteal: Normal color flow, compressibility and augmentation response. POSTERIOR TIBIAL VEIN: Right PTV: Normal color flow, compressibility and augmentation response. Left PTV: Normal color flow, compressibility and augmentation response. OTHER FINDINGS: None. IMPRESSION: No evidence of deep venous thrombosis. Scribe Attestation: Documented by Steve Ramires acting as a scribe for Ana Baxter MD. Scribe Attestation: All medical record entries made by the Scribe were at my direction and personally dictated by me. I have reviewed the chart and agree that the record accurately reflects my personal performance of the history, physical exam, medical decision making, and the department course for this patient. I have also personally directed, reviewed, and agree with the discharge instructions and disposition. Disposition - Clinical Impression Clinical Impression: COPD exacerbation - Patient ED Disposition Is Patient to be Admitted: Yes - Disposition Disposition Time: 19:19 Condition: GUARDED - Pt Status Changed To: Hospital Disposition Of: Inpatient - Admit Certification Admit to Inpatient:: After my assessment, the patient will require hospitalization for at least two midnights. This is because of the severity of symptoms shown, intensity of services needed, and/or the medical risk in this patient being treated as an outpatient. - POA Present On Arrival: None
[2017-12-12 15:43] LABS: BASO # 0.1 K/uL (0.0-0.2); BASO % 0.8 % (0.0-2.0); EOS # 0.6 K/uL (0.0-0.7); EOS % 5.8 % (0.0-4.0); HEMOGLOBIN 12.4 g/dL (12.0-18.0); LYMPH # 3.6 K/uL (1.0-4.3); LYMPH % 33.9 % (20.0-40.0); MEAN CELL VOLUME 82.3 fl (80.0-94.0); MEAN CORPUSCULAR HEMOGLOBIN 27.2 pg (27.0-31.0); MEAN PLATELET VOLUME 8.9 fl (7.2-11.7); MONO # 1.4 K/uL (0.0-0.8); MONO % 13.3 % (0.0-10.0); NEUT % 46.2 % (50.0-75.0); NRBC % 0.1 % (0.0-0.0); RBC 4.55 Mil/uL (4.40-5.90); RED CELL DISTRIBUTION WIDTH 15.6 % (11.5-14.5); WHITE BLOOD COUNT 10.8 K/uL (4.8-10.8)
[2017-12-12 15:51] LABS: ALBUMIN 3.7 g/dL (3.5-5.0); ALT/SGPT 29 U/L (21-72); AST/SGOT 32 U/L (17-59); BLOOD UREA NITROGEN 22 mg/dl (9-20); CALCIUM 9.2 mg/dL (8.4-10.2); GFR AFRICAN-AMERICAN > 60; GFR NON-AFRICAN AMERICAN > 60
[2017-12-12 16:03] LABS: B-TYPE NATRIURETIC PEPTIDE 192 pg/ml (0-900)
[2017-12-12 16:10] LABS: INR 1.2 (0.9-1.2); PARTIAL THROMBOPLASTIN TIME 28.2 Seconds (25.6-37.1); PROTHROMBIN TIME 12.9 Seconds (9.8-13.1)
--- NOTE | 2017-12-12 16:28 | RAD ---
PROCEDURE: CHEST RADIOGRAPH, 1 VIEW HISTORY: Chest pain COMPARISON: 10/18/2017. FINDINGS: LUNGS: The lungs are well inflated and clear. PLEURA: No pneumothorax or pleural fluid seen. CARDIOVASCULAR: Normal. Within normal limits OSSEOUS STRUCTURES: Within normal limits for the patient's age. There is an old fracture deformity in the right posterior 9th rib. VISUALIZED UPPER ABDOMEN: Normal. OTHER FINDINGS: None. IMPRESSION: No active pulmonary disease.
[2017-12-12 16:36] LABS: URINE BILIRUBIN NEGATIVE (NEGATIVE); URINE BLOOD NEGATIVE (NEGATIVE); URINE CLARITY CLEAR (Clear); URINE COLOR YELLOW (YELLOW); URINE GLUCOSE (UA) NEG (Normal); URINE LEUKOCYTE ESTERASE NEG Leu/uL (Negative); URINE PROTEIN NEGATIVE (NEGATIVE); URINE UROBILINOGEN 0.2-1.0 mg/dL (0.2-1.0)
--- NOTE | 2017-12-12 17:01 | US ---
PROCEDURE: Bilateral lower extremity venous duplex Doppler. HISTORY: BLE swelling COMPARISON: None available. TECHNIQUE: Bilateral common femoral, superficial femoral, popliteal and posterior tibial veins were evaluated. Flow was assessed with color Doppler, compressibility, assessment of phasic flow and augmentation response. FINDINGS: COMMON FEMORAL VEIN: Right CFV: Normal color flow, compressibility and augmentation response. Left CFV: Normal color flow, compressibility and augmentation response. SUPERFICIAL FEMORAL VEIN: Right SFV: Normal color flow, compressibility and augmentation response. Left SFV: Normal color flow, compressibility and augmentation response. POPLITEAL VEIN: Right Popliteal: Normal color flow, compressibility and augmentation response. Left Popliteal: Normal color flow, compressibility and augmentation response. POSTERIOR TIBIAL VEIN: Right PTV: Normal color flow, compressibility and augmentation response. Left PTV: Normal color flow, compressibility and augmentation response. OTHER FINDINGS: None. IMPRESSION: No evidence of deep venous thrombosis.
--- NOTE | 2017-12-12 20:12 | CP.PCM.HP ---
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 He also reports left side chest pain started today, not radiated, no pleuritic and b/l swelling noticed for the last 3 days. Patient reports subjective fever noticed today. Patient reports cough more frequent and more severe SOB since today. He denies nausea, vomiting, diarrhea, abdominal pain, dysuria, recent travel, leg pain. He reports not using any medication at this moment and states he does not have a PMD. PMD: NO PMD. No notes from clinic found in [facility] Allergies: NKDA Meds: No taking any medications PSH: IVC filter placement Social: former smoker, quit 1 yr ago. Formerly smoked 3-4 packs/day. Former alcohol abuser. Denies illicit drug use Family: sister with diabetes. no hx of heart dz or cancer Next of kin: son, lives in [place] Full code ED course VS: RR: 22 HR: 103 BP: 143/76 02 sat:97 Labs: CBC: 10.8>12.4<251 CMP: BUN 22, probmp normal. trop x 1 neg. EKG: sinus tachy Imaging: CXR: no infiltrate. No active disease. Meds: Duoneb x 3. Solumedrol 125 mg IV Present on Admission - Present on Admission Any Indicators Present on Admission: Yes History of DVT/PE: Yes History of Uncontrolled Diabetes: No Urinary Catheter: No Decubitus Ulcer Present: No Review of Systems - Review of Systems All systems: reviewed and no additional remarkable complaints except - Cardiovascular Cardiovascular: Chest Pain - Respiratory Respiratory: Cough, Dyspnea, Wheezing Past Patient History - Infectious Disease Hx of Infectious Diseases: None - Tetanus Immunizations Tetanus Immunization: Unknown - Past Medical History & Family History Past Medical History?: Yes - Past Social History Alcohol: None Drugs: Denies - CARDIAC Hx Congestive Heart Failure: Yes Hx Hypertension: Yes - PULMONARY Hx Asthma: Yes Hx Chronic Obstructive Pulmonary Disease (COPD): Yes Hx Pneumonia: Yes Hx Pulmonary Embolism: Yes - NEUROLOGICAL Hx Neurological Disorder: No - HEENT Hx HEENT Problems: No - RENAL Hx Chronic Kidney Disease: No - ENDOCRINE/METABOLIC Hx Diabetes Mellitus Type 2: Yes - HEMATOLOGICAL/ONCOLOGICAL Hx Human Immunodeficiency Virus (HIV): No - INTEGUMENTARY Hx Dermatological Problems: Yes (GENERALIZED SKIN PSORIASIS) Hx Psoriasis: Yes - MUSCULOSKELETAL/RHEUMATOLOGICAL Hx Musculoskeletal Disorders: No Hx Falls: No - GASTROINTESTINAL Hx Gastrointestinal Disorders: Yes Other/Comment: GI bleeding - GENITOURINARY/GYNECOLOGICAL Hx Genitourinary Disorders: No - PSYCHIATRIC Hx Psychophysiologic Disorder: No Hx Substance Use: No - SURGICAL HISTORY Other/Comment: IVC Filter - ANESTHESIA Hx Anesthesia: Yes Hx Anesthesia Reactions: No Hx Malignant Hyperthermia: No Meds Allergies/Adverse Reactions: Allergies Allergy/AdvReac Type Severity Reaction Status Date / Time No Known Allergies Allergy Verified 12/12/17 14:45 Physical Exam - Constitutional Appears: Non-toxic - Head Exam Head Exam: ATRAUMATIC, NORMOCEPHALIC - Eye Exam Eye Exam: Normal appearance - ENT Exam ENT Exam: Mucous Membranes Moist - Respiratory Exam Respiratory Exam: Wheezes. absent: Rales, Rhonchi Additional comments: b/l lung cramer wheezing expiratory - Cardiovascular Exam Cardiovascular Exam: REGULAR RHYTHM, +S1, +S2 - GI/Abdominal Exam GI & Abdominal Exam: Normal Bowel Sounds, Soft. absent: Guarding, Tenderness - Extremities Exam Extremities exam: Positive for: pedal edema (b/l 1 + ). Negative for: calf tenderness - Neurological Exam Neurological exam: Alert, Oriented x3 - Psychiatric Exam Psychiatric exam: Normal Affect - Additional Findings Additional findings: scaly dry plaques in distribution arms and legs. no infection, no wound, no discharge Results - Vital Signs Recent Vital Signs: Last Vital Signs Temp 98.1 F 12/12/17 18:21 Pulse 77 12/12/17 18:21 Resp 20 12/12/17 18:21 BP 138/82 12/12/17 18:21 Pulse Ox 97 12/12/17 18:21 - Labs Result Diagrams: 12/12/17 15:38 12/12/17 15:38 Labs: Laboratory Results - last 24 hr 12/12/17 12/12/17 12/12/17 15:38 15:38 15:38 WBC 10.8 RBC 4.55 Hgb 12.4 Hct 37.4 MCV 82.3 MCH 27.2 MCHC 33.0 RDW 15.6 H Plt Count 251 MPV 8.9 Neut % (Auto) 46.2 L Lymph % (Auto) 33.9 [place] % (Auto) 13.3 H Eos % (Auto) 5.8 H Baso % (Auto) 0.8 Neut # (Auto) 5.0 Lymph # (Auto) 3.6 [place] # (Auto) 1.4 H Eos # (Auto) 0.6 Baso # (Auto) 0.1 PT 12.9 INR 1.2 APTT 28.2 Sodium 140 Potassium 4.3 Chloride 105 Carbon Dioxide 19 L Anion Gap 20 BUN 22 H Creatinine 1.0 Est GFR ( Amer) > 60 Est GFR (Non-Af Amer) > 60 Random Glucose 92 Calcium 9.2 Total Bilirubin 0.6 AST 32 ALT 29 Alkaline Phosphatase 81 Troponin I < 0.0120 NT-Pro-B Natriuret Pep 192 Total Protein 7.5 Albumin 3.7 Globulin 3.8 Albumin/Globulin Ratio 1.0 Urine Color Urine Clarity Urine pH Ur Specific [place] Urine Protein Urine Glucose (UA) Urine Ketones Urine Blood Urine Nitrate Urine Bilirubin Urine Urobilinogen Ur Leukocyte Esterase Urine RBC (Auto) Urine Microscopic WBC 12/12/17 16:26 WBC RBC Hgb Hct MCV MCH MCHC RDW Plt Count MPV Neut % (Auto) Lymph % (Auto) [place] % (Auto) Eos % (Auto) Baso % (Auto) Neut # (Auto) Lymph # (Auto) [place] # (Auto) Eos # (Auto) Baso # (Auto) PT INR APTT Sodium Potassium Chloride Carbon Dioxide Anion Gap BUN Creatinine Est GFR ( Amer) Est GFR (Non-Af Amer) Random Glucose Calcium Total Bilirubin AST ALT Alkaline Phosphatase Troponin I NT-Pro-B Natriuret Pep Total Protein Albumin Globulin Albumin/Globulin Ratio Urine Color Yellow Urine Clarity Clear Urine pH 6.0 Ur Specific [place] 1.013 Urine Protein Negative Urine Glucose (UA) Neg Urine Ketones Negative Urine Blood Negative Urine Nitrate Negative Urine Bilirubin Negative Urine Urobilinogen 0.2-1.0 Ur Leukocyte Esterase Neg Urine RBC (Auto) 1 Urine Microscopic WBC < 1 Assessment & Plan - Assessment and Plan (Free Text) Plan: Assessment/Plan 1) COPD exacerbation -Admit tele -s/p duoneb ED, solumedrol 125 mg IV -c/w solumedrol 60 mg Q 12h -c/w duoneb q4h PRN SOB -O2 4l -CXR no active disease -change in color, amount sputum, high risk for infection -will cover with Levaquin 750 mg IV daily -fa/u sputum cx, blood cx 2) DM -controlled -last hgb a1c 5.9 on 11/03 -not on medication -SSI, hypoglycemia protocol 3) HTN -Controlled w/o meds 4) Hx/o PE -2 years ago -IVC filter 5) Psoriasis -sin lesions over arms and legs -not on treatment now. 6) DVT Prophylaxis Lovenox 40 mg sc daily
[2017-12-12] MEDS ORDERED: Sodium Chloride 3% for Inhalation 4 ML VIAL.NEB IH PRN (20:13)
[2017-12-12] MEDS ORDERED: Albuterol-Ipratrop 3 mg / 0.5 (3 ml) UD INH PRN (20:20)
[2017-12-12] MEDS ORDERED: Glucagon Recombinant 1 mg Inj IM PRN (20:41)
[2017-12-12] MEDS ORDERED: Dextrose 50% SYRINGE Inj (50 ml) IV PRN (20:41)
[2017-12-12] MEDS ORDERED: levoFLOXacin 750 mg in D5W 150 ML BAG IVPB SCH (20:45)
[2017-12-12] MEDS ORDERED: levoFLOXacin 750 mg in D5W 750 MG/150 ML BAG IVPB SCH (21:00)
[2017-12-12 22:07] LABS: ABG ALLEN TEST YES; ARTERIAL BLOOD GAS HCO3 22.8 mmol/L (21-28); ARTERIAL BLOOD GAS HEMOGLOBIN 13.3 g/dL (11.7-17.4); ARTERIAL BLOOD GAS O2 CAPACITY 18.1 mL/dL (16-24); ARTERIAL BLOOD GAS O2 CONTENT 17.8 ML/dL (15-23); ARTERIAL BLOOD GAS O2 SAT 98.4 % (95-98); ARTERIAL BLOOD GAS PCO2 36 mm/Hg (35-45); ARTERIAL BLOOD GAS PH 7.39 (7.35-7.45); ARTERIAL BLOOD GAS PO2 86 mm/Hg (80-100); ARTERIAL BLOOD GAS TCO2 22.9 mmol/L (22-28)
[2017-12-12] MEDS: Insulin Lispro (humaLOG) 100 Units/ml Inj SC SCH (22:30)
[2017-12-13] MEDS: Albuterol-Ipratrop 3 mg / 0.5 (3 ml) UD INH SCH ×6 (00:12→19:25)
[2017-12-13 06:03] LABS: BASO # 0.1 K/uL (0.0-0.2); HEMOGLOBIN 12.2 g/dL (12.0-18.0); LYMPH # 1.4 K/uL (1.0-4.3); LYMPH % 18.2 % (20.0-40.0); MEAN CELL VOLUME 81.8 fl (80.0-94.0); MEAN CORPUSCULAR HGB CONC 33.1 g/dL (33.0-37.0); MEAN PLATELET VOLUME 8.8 fl (7.2-11.7); MONO # 0.4 K/uL (0.0-0.8); MONO % 4.7 % (0.0-10.0); NEUT # 6.1 K/uL (1.8-7.0); NEUT % 76.1 % (50.0-75.0); RBC 4.5 Mil/uL (4.40-5.90); RED CELL DISTRIBUTION WIDTH 15.2 % (11.5-14.5)
[2017-12-13 06:33] LABS: BLOOD UREA NITROGEN 27 mg/dl (9-20); GFR AFRICAN-AMERICAN > 60; GFR NON-AFRICAN AMERICAN > 60
[2017-12-13 06:34] LABS: ALBUMIN 3.6 g/dL (3.5-5.0); ALT/SGPT 29 U/L (21-72); AST/SGOT 26 U/L (17-59)
[2017-12-13] MEDS: Insulin Lispro (humaLOG) 100 Units/ml Inj SC SCH ×4 (08:00→22:31)
[2017-12-13] MEDS ORDERED: methylPREDNISolone 60 MG in Sodium Chloride 0.9% 50 ML IV SCH (09:00)
[2017-12-13] MEDS: Enoxaparin 40 mg Syringe SC SCH (09:28)
--- NOTE | 2017-12-13 09:57 | CP.PCM.PN ---
Subjective - Date & Time of Evaluation Date of Evaluation: 12/13/17 Time of Evaluation: 08:00 - Subjective Subjective: 67 y/o M seen and evaluated by bedside. Pt reports no much improvement after all the therapies given. Pt reports still coughing, SOB and wheezing. Pt is able to speak and eat slowly. Pt denies chills, palpitations, nausea, diarrhea or peripheral edema. Objective - Vital Signs/Intake and Output Vital Signs (last 24 hours): Temp Pulse Resp BP Pulse Ox 98.3 F 75 20 130/62 97 12/13/17 08:05 12/13/17 08:05 12/13/17 08:05 12/13/17 08:05 12/13/17 08:05 - Medications Medications: Current Medications Acetaminophen (Tylenol 325mg Tab) 650 mg PO Q6 PRN PRN Reason: Pain, Mild (1-3) Acetaminophen (Tylenol 325mg Tab) 650 mg PO Q6 PRN PRN Reason: Fever >100.4 F Albuterol/Ipratropium (Duoneb 3 Mg/0.5 Mg (3 Ml) Ud) 3 ml INH RQ4 [facility] Last Admin: 12/13/17 07:16 Dose: 3 ml Dextrose (Dextrose 50% Inj) 0 ml IV STAT PRN; Protocol PRN Reason: Hypoglycemia Protocol Dextrose (Glutose 15) 0 gm PO ONCE PRN; Protocol PRN Reason: Hypoglycemia Protocol Enoxaparin Sodium (Lovenox) 40 mg SC DAILY [facility] PRN Reason: Protocol Last Admin: 12/13/17 09:28 Dose: 40 mg Glucagon (Glucagen Diagnostic Kit) 0 mg IM STAT PRN; Protocol PRN Reason: Hypoglycemia Protocol Levofloxacin/Dextrose (Levaquin 750mg) 750 mg in 150 mls @ 100 mls/hr IVPB DAILY@2100 [facility] Last Admin: 12/12/17 21:52 Dose: 100 mls/hr Insulin Human Lispro (Humalog) 0 units SC ACHS [facility] PRN Reason: Protocol Last Admin: 12/13/17 08:00 Dose: Not Given Methylprednisolone (Solu-Medrol) 60 mg IV Q8H [facility] Last Admin: 12/13/17 05:15 Dose: 60 mg Ondansetron HCl (Zofran Inj) 4 mg IVP Q6 PRN PRN Reason: Nausea/Vomiting - Labs Labs: 12/13/17 04:30 12/13/17 04:30 PT 12.9 Seconds (9.8-13.1) 12/12/17 15:38 INR 1.2 (0.9-1.2) 12/12/17 15:38 APTT 28.2 Seconds (25.6-37.1) 12/12/17 15:38 - Constitutional Appears: Confused, Chronically Ill - Head Exam Head Exam: NORMAL INSPECTION - Eye Exam Eye Exam: EOMI - ENT Exam ENT Exam: Mucous Membranes Dry - Neck Exam Neck Exam: Full ROM. absent: Meningismus - Respiratory Exam Respiratory Exam: Rales, Rhonchi, Wheezes - Cardiovascular Exam Cardiovascular Exam: +S1, +S2 - GI/Abdominal Exam GI & Abdominal Exam: Soft, Normal Bowel Sounds. absent: Guarding, Tenderness - Extremities Exam Extremities Exam: Full ROM. absent: Calf Tenderness - Neurological Exam Neurological Exam: Alert, Awake, Oriented x3 - Skin Additional comments: Presence of scattered large psoriatic lesions on extremities. Assessment and Plan - Assessment and Plan (Free Text) Assessment: 67 y/o M , PMHx/o COPD, DM, HTN, PE with IVC filter and asthma, admitted for evaluation and management of severe COPD exacerbation. COPD exacerbation -Stable, still wheezing. -Hx of Asthma, may also be combined w/ asthmatic exacerbation. -Solumedrol 60 mg Q8H, Duoneb Q4H, O2 by nasal canula at 2 L/min -CXR yesterday - no active disease -Pt with a previous Hx of ESBL and MRSA infections. -Based on previous sputum Cx, will change IV Levaquin to IV Zosyn. -Pulmonology consult, Dr Pugh. -F/U sputum Cx and pulmonology recommendations. Bacteremia -Pt with a previous Hx of ESBL and MRSA infections. -Blood Cx preliminary showed bacteremia. See full report -ID consult, Dr Alonso. DM 2 - at goal -Last Hgb a1c 5.9 on 10/20/17 -Not on medication -SSI, hypoglycemia protocol Essential HTN -Stable for now. -Monitor BP. History of Pulmonary Embolism -IVC filter in place -2 years ago. Psoriasis -start triamcinolone 0.1 % BID -start ammonium lactate 12 % TOP TID DVT Prophylaxis -Lovenox 40 mg sc daily
[2017-12-13] MEDS: Piperacillin/Tazobact 3.375 GM in Sodium Chloride 0.9% 100 ML IVPB SCH ×2 (14:20→22:37)
--- NOTE | 2017-12-13 15:37 | CP.PCM.PN ---
Subjective - Date & Time of Evaluation Date of Evaluation: 12/13/17 Time of Evaluation: 15:40 - Subjective Subjective: I D NOTE PATIENT EXAMINED ,CHART REVIEWED INCLUDING PAST RECORDS REPEAT CULTURES ORDERED VANCOMYCIN ADDED TO RX MAY CONSIDER MEROPENEM VS ZOSYN BASED ON CLINICAL COURSE Objective - Vital Signs/Intake and Output Vital Signs (last 24 hours): Temp Pulse Resp BP Pulse Ox 97.8 F 102 H 20 150/77 96 12/13/17 11:52 12/13/17 11:52 12/13/17 11:52 12/13/17 11:52 12/13/17 11:52 - Medications Medications: Current Medications Acetaminophen (Tylenol 325mg Tab) 650 mg PO Q6 PRN PRN Reason: Pain, Mild (1-3) Acetaminophen (Tylenol 325mg Tab) 650 mg PO Q6 PRN PRN Reason: Fever >100.4 F Albuterol/Ipratropium (Duoneb 3 Mg/0.5 Mg (3 Ml) Ud) 3 ml INH RQ4 [facility] Last Admin: 12/13/17 15:13 Dose: 3 ml Dextrose (Dextrose 50% Inj) 0 ml IV STAT PRN; Protocol PRN Reason: Hypoglycemia Protocol Dextrose (Glutose 15) 0 gm PO ONCE PRN; Protocol PRN Reason: Hypoglycemia Protocol Enoxaparin Sodium (Lovenox) 40 mg SC DAILY [facility] PRN Reason: Protocol Last Admin: 12/13/17 09:28 Dose: 40 mg Glucagon (Glucagen Diagnostic Kit) 0 mg IM STAT PRN; Protocol PRN Reason: Hypoglycemia Protocol Piperacillin Sod/Tazobactam (Sod 3.375 gm/ Sodium Chloride) 100 mls @ 100 mls/ hr IVPB Q8H [facility] PRN Reason: Protocol Last Admin: 12/13/17 14:20 Dose: 100 mls/hr Vancomycin HCl 750 mg/ Sodium (Chloride) 250 mls @ 166.667 mls/hr IVPB Q12 [facility] PRN Reason: Protocol Insulin Human Lispro (Humalog) 0 units SC ACHS [facility] PRN Reason: Protocol Last Admin: 12/13/17 11:30 Dose: 4 units Lactic Acid (Lac-Hydrin 12% Lotion (225 G)) 1 applic TOP TID [facility] Methylprednisolone (Solu-Medrol) 60 mg IV Q8H [facility] Last Admin: 12/13/17 14:00 Dose: 60 mg Ondansetron HCl (Zofran Inj) 4 mg IVP Q6 PRN PRN Reason: Nausea/Vomiting Pantoprazole Sodium (Protonix Ec Tab) 40 mg PO DAILY [facility] Triamcinolone Acetonide (Kenalog 0.1% Oint) 1 appl TOP BID [facility] - Labs Labs: 12/13/17 04:30 12/13/17 04:30 PT 12.9 Seconds (9.8-13.1) 12/12/17 15:38 INR 1.2 (0.9-1.2) 12/12/17 15:38 APTT 28.2 Seconds (25.6-37.1) 12/12/17 15:38
--- NOTE | 2017-12-13 16:05 | CP.PCM.CON ---
History of Present Illness - History of Present Illness History of Present Illness: CC: COPD Exacerbation. Pulmonary consult for a 67 y/o M, Hx of HTN, CHF, IVC filter, PE, Multiple admissions for exacerbation of COPD/Asthma to [facility]. 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 Worsening symptoms: C/O legs swelling b/l x 3 days and CP L side, non radiated , subjective fever today. Aggravated factor: Not on medications, Pt does not have a PMD. Pt denied: Dizziness, syncope, numbness, palpitations, n/v/d, abdominal pain, urinary symptoms, sick contact, recent travel out of [facility]. CXR showed: No active disease. EKG: Sinus tachycardia, possible inferior infarct, age undetermined. ExT U-S: No DVT. Review of Systems - Constitutional Constitutional: Fever (subjective) - EENT Eyes: Other (negative) Ears: Other (negative) Nose/Mouth/Throat: Other (negative) - Cardiovascular Cardiovascular: Chest Pain, Leg Edema, Rapid Heart Rate - Respiratory Respiratory: Cough, Dyspnea, Wheezing, Change in Mucous Color - Gastrointestinal Gastrointestinal: Other (negative) - Genitourinary Genitourinary: Other (negative) - Musculoskeletal Musculoskeletal: Other (negative) - Integumentary Integumentary: Other (negative) - Neurological Neurological: Other (negative) - Psychiatric Psychiatric: Other (negative) - Endocrine Endocrine: Other (negative) - Hematologic/Lymphatic Hematologic: Other (negative) Past Patient History - Infectious Disease Hx of Infectious Diseases: None - Tetanus Immunizations Tetanus Immunization: Unknown - Past Medical History & Family History Past Medical History?: Yes Pertinent Family History: Sister DM, other CA - Past Social History Smoking Status: Former Smoker (heavy ( 3-4 PPD) quit 1 yr ago.) Alcohol: None Drugs: Other (Former alcohol abuse.) - CARDIAC Hx Cardiac Disorders: Yes Hx Congestive Heart Failure: Yes Hx Hypertension: Yes - PULMONARY Hx Respiratory Disorders: Yes Hx Asthma: Yes Hx Chronic Obstructive Pulmonary Disease (COPD): Yes Hx Pneumonia: Yes Hx Pulmonary Embolism: Yes - NEUROLOGICAL Hx Neurological Disorder: No - HEENT Hx HEENT Problems: No - RENAL Hx Chronic Kidney Disease: No - ENDOCRINE/METABOLIC Hx Endocrine Disorders: Yes Hx Diabetes Mellitus Type 2: Yes - HEMATOLOGICAL/ONCOLOGICAL Hx Blood Disorders: No Hx Human Immunodeficiency Virus (HIV): No - INTEGUMENTARY Hx Dermatological Problems: Yes (GENERALIZED SKIN PSORIASIS) Hx Psoriasis: Yes - MUSCULOSKELETAL/RHEUMATOLOGICAL Hx Musculoskeletal Disorders: No Hx Falls: No - GASTROINTESTINAL Hx Gastrointestinal Disorders: Yes Other/Comment: GI bleeding - GENITOURINARY/GYNECOLOGICAL Hx Genitourinary Disorders: No - PSYCHIATRIC Hx Psychophysiologic Disorder: No Hx Substance Use: No - SURGICAL HISTORY Hx Surgeries: Yes Other/Comment: IVC Filter - ANESTHESIA Hx Anesthesia: Yes Hx Anesthesia Reactions: No Hx Malignant Hyperthermia: No Meds Allergies/Adverse Reactions: Allergies Allergy/AdvReac Type Severity Reaction Status Date / Time No Known Allergies Allergy Verified 12/12/17 14:45 - Medications Medications: Current Medications Acetaminophen (Tylenol 325mg Tab) 650 mg PO Q6 PRN PRN Reason: Pain, Mild (1-3) Acetaminophen (Tylenol 325mg Tab) 650 mg PO Q6 PRN PRN Reason: Fever >100.4 F Albuterol/Ipratropium (Duoneb 3 Mg/0.5 Mg (3 Ml) Ud) 3 ml INH RQ4 [facility] Last Admin: 12/13/17 15:13 Dose: 3 ml Dextrose (Dextrose 50% Inj) 0 ml IV STAT PRN; Protocol PRN Reason: Hypoglycemia Protocol Dextrose (Glutose 15) 0 gm PO ONCE PRN; Protocol PRN Reason: Hypoglycemia Protocol Enoxaparin Sodium (Lovenox) 40 mg SC DAILY JE[facility]RE[facility] PRN Reason: Protocol Last Admin: 12/13/17 09:28 Dose: 40 mg Glucagon (Glucagen Diagnostic Kit) 0 mg IM STAT PRN; Protocol PRN Reason: Hypoglycemia Protocol Piperacillin Sod/Tazobactam (Sod 3.375 gm/ Sodium Chloride) 100 mls @ 100 mls/ hr IVPB Q8H [facility]FF[facility] PRN Reason: Protocol Last Admin: 12/13/17 14:20 Dose: 100 mls/hr Vancomycin HCl 750 mg/ Sodium (Chloride) 250 mls @ 166.667 mls/hr IVPB Q12 [facility] PRN Reason: Protocol Insulin Human Lispro (Humalog) 0 units SC ACHS [facility] PRN Reason: Protocol Last Admin: 12/13/17 11:30 Dose: 4 units Lactic Acid (Lac-Hydrin 12% Lotion (225 G)) 1 applic TOP TID [facility] Methylprednisolone (Solu-Medrol) 60 mg IV Q8H [facility] Last Admin: 12/13/17 14:00 Dose: 60 mg Ondansetron HCl (Zofran Inj) 4 mg IVP Q6 PRN PRN Reason: Nausea/Vomiting Pantoprazole Sodium (Protonix Ec Tab) 40 mg PO DAILY [facility] Triamcinolone Acetonide (Kenalog 0.1% Oint) 1 appl TOP BID [facility] Physical Exam - Constitutional Appears: Chronically Ill - Head Exam Head Exam: NORMAL INSPECTION - Eye Exam Eye Exam: PERRL - ENT Exam ENT Exam: Normal Exam - Neck Exam Neck exam: Positive for: Normal Inspection - Respiratory Exam Respiratory Exam: Decreased Breath Sounds, Wheezes (b/l) - Cardiovascular Exam Cardiovascular Exam: REGULAR RHYTHM - GI/Abdominal Exam GI & Abdominal Exam: Soft - Extremities Exam Additional comments: Edema L/E - Back Exam Back exam: NORMAL INSPECTION - Neurological Exam Neurological exam: Alert, Oriented x3 - Psychiatric Exam Psychiatric exam: Normal Mood - Skin Additional comments: scaly dry plaques arms and legs Results - Vital Signs Recent Vital Signs: Last Vital Signs Temp 97.8 F 12/13/17 11:52 Pulse 102 H 12/13/17 11:52 Resp 20 12/13/17 11:52 BP 150/77 12/13/17 11:52 Pulse Ox 96 12/13/17 11:52 reviewed Petty - Labs Result Diagrams: 12/15/17 05:55 12/15/17 05:55 Labs: Laboratory Results - last 24 hr 12/12/17 12/12/17 12/12/17 15:38 16:26 20:13 WBC RBC Hgb Hct MCV MCH MCHC RDW Plt Count MPV Neut % (Auto) Lymph % (Auto) Hunt % (Auto) Eos % (Auto) Baso % (Auto) Neut # (Auto) Lymph # (Auto) Hunt # (Auto) Eos # (Auto) Baso # (Auto) PT 12.9 INR 1.2 APTT 28.2 pCO2 pO2 HCO3 ABG pH ABG Total CO2 ABG O2 Saturation ABG O2 Content ABG Base Excess ABG Hemoglobin ABG Carboxyhemoglobin POC ABG HHb (Measured) ABG Methemoglobin ABG O2 Capacity Slim Test A-a O2 Difference Hgb O2 Saturation FiO2 Sodium Potassium Chloride Carbon Dioxide Anion Gap BUN Creatinine Est GFR ( Amer) Est GFR (Non-Af Amer) POC Glucose (mg/dL) 139 H Random Glucose Calcium Total Bilirubin AST ALT Alkaline Phosphatase Troponin I Total Protein Albumin Globulin Albumin/Globulin Ratio Urine Color Yellow Urine Clarity Clear Urine pH 6.0 Ur Specific [place] 1.013 Urine Protein Negative Urine Glucose (UA) Neg Urine Ketones Negative Urine Blood Negative Urine Nitrate Negative Urine Bilirubin Negative Urine Urobilinogen 0.2-1.0 Ur Leukocyte Esterase Neg Urine RBC (Auto) 1 Urine Microscopic WBC < 1 12/12/17 12/12/17 12/12/17 21:24 22:00 23:30 WBC RBC Hgb Hct MCV MCH MCHC RDW Plt Count MPV Neut % (Auto) Lymph % (Auto) Hunt % (Auto) Eos % (Auto) Baso % (Auto) Neut # (Auto) Lymph # (Auto) Hunt # (Auto) Eos # (Auto) Baso # (Auto) PT INR APTT pCO2 36 pO2 86 HCO3 22.8 ABG pH 7.39 ABG Total CO2 22.9 ABG O2 Saturation 98.4 H ABG O2 Content 17.8 ABG Base Excess -2.7 L ABG Hemoglobin 13.3 ABG Carboxyhemoglobin 2.4 H POC ABG HHb (Measured) 1.5 ABG Methemoglobin 1.2 ABG O2 Capacity 18.1 Slim Test Yes A-a O2 Difference 19.0 Hgb O2 Saturation 94.9 L FiO2 21.0 Sodium Potassium Chloride Carbon Dioxide Anion Gap BUN Creatinine Est GFR ( Amer) Est GFR (Non-Af Amer) POC Glucose (mg/dL) 201 H Random Glucose Calcium Total Bilirubin AST ALT Alkaline Phosphatase Troponin I < 0.0120 Total Protein Albumin Globulin Albumin/Globulin Ratio Urine Color Urine Clarity Urine pH Ur Specific [place] Urine Protein Urine Glucose (UA) Urine Ketones Urine Blood Urine Nitrate Urine Bilirubin Urine Urobilinogen Ur Leukocyte Esterase Urine RBC (Auto) Urine Microscopic WBC 12/13/17 12/13/17 12/13/17 04:30 04:30 05:40 WBC 8.0 RBC 4.50 Hgb 12.2 Hct 36.8 MCV 81.8 MCH 27.0 MCHC 33.1 RDW 15.2 H Plt Count 246 MPV 8.8 Neut % (Auto) 76.1 H Lymph % (Auto) 18.2 L Hunt % (Auto) 4.7 Eos % (Auto) 0.0 Baso % (Auto) 1.0 Neut # (Auto) 6.1 Lymph # (Auto) 1.4 Hunt # (Auto) 0.4 Eos # (Auto) 0.0 Baso # (Auto) 0.1 PT INR APTT pCO2 pO2 HCO3 ABG pH ABG Total CO2 ABG O2 Saturation ABG O2 Content ABG Base Excess ABG Hemoglobin ABG Carboxyhemoglobin POC ABG HHb (Measured) ABG Methemoglobin ABG O2 Capacity Slim Test A-a O2 Difference Hgb O2 Saturation FiO2 Sodium 140 Potassium 4.2 Chloride 103 Carbon Dioxide 22 Anion Gap 19 BUN 27 H Creatinine 1.0 Est GFR ( Amer) > 60 Est GFR (Non-Af Amer) > 60 POC Glucose (mg/dL) 144 H Random Glucose 147 H Calcium 9.0 Total Bilirubin 0.3 AST 26 ALT 29 Alkaline Phosphatase 68 Troponin I Total Protein 7.3 Albumin 3.6 Globulin 3.7 Albumin/Globulin Ratio 1.0 Urine Color Urine Clarity Urine pH Ur Specific [place] Urine Protein Urine Glucose (UA) Urine Ketones Urine Blood Urine Nitrate Urine Bilirubin Urine Urobilinogen Ur Leukocyte Esterase Urine RBC (Auto) Urine Microscopic WBC 12/13/17 12/13/17 11:27 15:45 WBC RBC Hgb Hct MCV MCH MCHC RDW Plt Count MPV Neut % (Auto) Lymph % (Auto) Hunt % (Auto) Eos % (Auto) Baso % (Auto) Neut # (Auto) Lymph # (Auto) Hunt # (Auto) Eos # (Auto) Baso # (Auto) PT INR APTT pCO2 pO2 HCO3 ABG pH ABG Total CO2 ABG O2 Saturation ABG O2 Content ABG Base Excess ABG Hemoglobin ABG Carboxyhemoglobin POC ABG HHb (Measured) ABG Methemoglobin ABG O2 Capacity Slim Test A-a O2 Difference Hgb O2 Saturation FiO2 Sodium Potassium Chloride Carbon Dioxide Anion Gap BUN Creatinine Est GFR ( Amer) Est GFR (Non-Af Amer) POC Glucose (mg/dL) 262 H 143 H Random Glucose Calcium Total Bilirubin AST ALT Alkaline Phosphatase Troponin I Total Protein Albumin Globulin Albumin/Globulin Ratio Urine Color Urine Clarity Urine pH Ur Specific [place] Urine Protein Urine Glucose (UA) Urine Ketones Urine Blood Urine Nitrate Urine Bilirubin Urine Urobilinogen Ur Leukocyte Esterase Urine RBC (Auto) Urine Microscopic WBC reviewed J.P. - EKG Data EKG comments: reviewed J.P. - Imaging and Cardiology Venous US Status: Report reviewed by me (Petty) Chest x-ray Status: Report reviewed by me (Petty) Assessment & Plan (1) COPD exacerbation Status: Acute Priority: High (2) History of pulmonary embolus (PE) Status: Chronic Priority: Medium - Assessment and Plan (Free Text) Plan: F/U Sputum C-S, Blood C-S , continue current abx IV, Duoneb, Solu-Medrol, Robitussin DM, Lovenox and rest of Tx. - Date & Time Date: 12/13/17 Time: 13:00
[2017-12-13] MEDS: Pantoprazole 40 mg EC Tab PO SCH (16:47)
[2017-12-13] MEDS: Acetylcysteine 20% Inhal Soln (4ml) INH SCH (22:46)
[2017-12-14] MEDS: Albuterol-Ipratrop 3 mg / 0.5 (3 ml) UD INH SCH ×6 (00:23→19:04)
[2017-12-14] MEDS: guaiFENesin DM 200 mg-20 mg/10 ml UD PO PRN ×2 (02:03→21:58)
[2017-12-14] MEDS: Piperacillin/Tazobact 3.375 GM in Sodium Chloride 0.9% 100 ML IVPB SCH ×3 (02:05→21:50)
[2017-12-14 05:43] LABS: HEMOGLOBIN 11.9 g/dL (12.0-18.0); MEAN CELL VOLUME 81.3 fl (80.0-94.0); MEAN CORPUSCULAR HGB CONC 33.2 g/dL (33.0-37.0); RBC 4.4 Mil/uL (4.40-5.90); RED CELL DISTRIBUTION WIDTH 15.2 % (11.5-14.5); WHITE BLOOD COUNT 13.7 K/uL (4.8-10.8)
[2017-12-14 05:59] LABS: BLOOD UREA NITROGEN 25 mg/dl (9-20); CALCIUM 8.7 mg/dL (8.4-10.2); GFR AFRICAN-AMERICAN > 60; GFR NON-AFRICAN AMERICAN > 60
[2017-12-14] MEDS: Insulin Lispro (humaLOG) 100 Units/ml Inj SC SCH ×4 (06:33→21:40)
[2017-12-14] MEDS: Acetylcysteine 20% Inhal Soln (4ml) INH SCH ×2 (07:40→19:04)
--- NOTE | 2017-12-14 08:28 | CP.PCM.PN ---
Subjective - Date & Time of Evaluation Date of Evaluation: 12/14/17 Time of Evaluation: 07:45 - Subjective Subjective: Patient seen and examined at bedside this morning. No acute overnight events. Patient continues to have productive cough, wheezing and shortness of breath. Reports he is feeling slightly better with the treatment regimen. Pt is on 2L NC oxygen and able to speak without shortness of breath. Tolerating PO. Report dysuria for 2 months. Denies hematuria, urinary frequency, flank pain, nausea/ vomiting/fever/chills. Denies chest pain, headache, dizziness or focal weakness. Objective - Vital Signs/Intake and Output Vital Signs (last 24 hours): Temp Pulse Resp BP Pulse Ox 98.2 F 103 H 18 119/57 L 97 12/14/17 07:51 12/14/17 07:51 12/14/17 07:51 12/14/17 07:51 12/14/17 07:51 - Medications Medications: Current Medications Acetaminophen (Tylenol 325mg Tab) 650 mg PO Q6 PRN PRN Reason: Pain, Mild (1-3) Acetaminophen (Tylenol 325mg Tab) 650 mg PO Q6 PRN PRN Reason: Fever >100.4 F Acetylcysteine (Acetylcysteine 20%) 2 ml INH RBID [facility] Last Admin: 12/14/17 07:40 Dose: 2 ml Albuterol/Ipratropium (Duoneb 3 Mg/0.5 Mg (3 Ml) Ud) 3 ml INH RQ4 [facility] Last Admin: 12/14/17 07:40 Dose: 3 ml Dextrose (Dextrose 50% Inj) 0 ml IV STAT PRN; Protocol PRN Reason: Hypoglycemia Protocol Dextrose (Glutose 15) 0 gm PO ONCE PRN; Protocol PRN Reason: Hypoglycemia Protocol Enoxaparin Sodium (Lovenox) 40 mg SC DAILY [facility] PRN Reason: Protocol Last Admin: 12/13/17 09:28 Dose: 40 mg Glucagon (Glucagen Diagnostic Kit) 0 mg IM STAT PRN; Protocol PRN Reason: Hypoglycemia Protocol Guaifenesin/Dextromethorphan (Robitussin Dm) 10 ml PO Q6 PRN PRN Reason: Cough Last Admin: 12/14/17 02:03 Dose: 10 ml Piperacillin Sod/Tazobactam (Sod 3.375 gm/ Sodium Chloride) 100 mls @ 100 mls/ hr IVPB Q8H [facility] PRN Reason: Protocol Last Admin: 12/14/17 02:05 Dose: 100 mls/hr Vancomycin HCl 750 mg/ Sodium (Chloride) 250 mls @ 166.667 mls/hr IVPB Q12 [facility] PRN Reason: Protocol Last Admin: 12/13/17 22:36 Dose: 166.667 mls/hr Insulin Human Lispro (Humalog) 0 units SC ACHS [facility] PRN Reason: Protocol Last Admin: 12/14/17 06:33 Dose: 2 units Lactic Acid (Lac-Hydrin 12% Lotion (225 G)) 1 applic TOP TID [facility] Last Admin: 12/13/17 16:44 Dose: 1 applic Methylprednisolone (Solu-Medrol) 60 mg IV Q8H [facility] Last Admin: 12/14/17 06:32 Dose: 60 mg Ondansetron HCl (Zofran Inj) 4 mg IVP Q6 PRN PRN Reason: Nausea/Vomiting Pantoprazole Sodium (Protonix Ec Tab) 40 mg PO DAILY [facility] Last Admin: 12/13/17 16:47 Dose: 40 mg Triamcinolone Acetonide (Kenalog 0.1% Oint) 1 appl TOP BID [facility] Last Admin: 12/13/17 16:46 Dose: 1 applic - Labs Labs: 12/14/17 05:20 12/14/17 05:20 PT 12.9 Seconds (9.8-13.1) 12/12/17 15:38 INR 1.2 (0.9-1.2) 12/12/17 15:38 APTT 28.2 Seconds (25.6-37.1) 12/12/17 15:38 - Constitutional Appears: Non-toxic, No Acute Distress, Chronically Ill - Head Exam Head Exam: NORMAL INSPECTION - Eye Exam Eye Exam: Normal appearance - ENT Exam ENT Exam: Mucous Membranes Moist - Neck Exam Neck Exam: Normal Inspection - Respiratory Exam Respiratory Exam: Prolonged Expiratory Phase, Wheezes (diffuse), NORMAL BREATHING PATTERN. absent: Accessory Muscle Use, Rhonchi, Respiratory Distress - Cardiovascular Exam Cardiovascular Exam: REGULAR RHYTHM, RRR, +S1, +S2 - GI/Abdominal Exam GI & Abdominal Exam: Soft, Normal Bowel Sounds. absent: Tenderness - Extremities Exam Extremities Exam: Normal Inspection. absent: Calf Tenderness, Pedal Edema - Neurological Exam Neurological Exam: Alert, Awake - Psychiatric Exam Psychiatric exam: Normal Affect, Normal Mood - Skin Additional comments: Scattered psoriatic lesions on extremities Assessment and Plan - Assessment and Plan (Free Text) Assessment: 67 year old male with PMHx of COPD, DMII, HTN, PE with IVC filter admitted for bacteremia and severe COPD exacerbation 1. Gram positive cocci bacteremia -Pt with a previous Hx of ESBL and MRSA infections. -Blood Cx on 12/12/17: Gram positive cocci in clusters -Leukocytosis( wbc 13.7 today) likely secondary to solumedrol -ID consult, Dr Alonso appreciated. -Continue with vancomycin 750 mg IVP q12 (day 2) -Continue with Zosyn 3.375 gm IVPB q8 (day 2) -f/u vanco trough level 2. COPD exacerbation -Stable, still wheezing. -Hx of Asthma, may also be combined w/ asthmatic exacerbation. -Solumedrol 60 mg Q8H, Duoneb Q4H, O2 by nasal canula at 2 L/min -CXR on 12/12/17 - no active disease -Pt with a previous Hx of ESBL and MRSA infections. -Special Librarian Dr Pugh on board -F/U sputum Cx 3. DM 2 - at goal -Last Hgb a1c 5.9 on 10/20/17 -Not on medication -SSI, hypoglycemia protocol 4. Essential HTN -Stable for now. -Monitor BP. 5. History of Pulmonary Embolism -IVC filter in place -2 years ago. 6. Psoriasis -c/w triamcinolone 0.1 % BID -c/w ammonium lactate 12 % TOP TID 7. Dysuria -UA neg on 12/12/17 -f/u UA and urine c&s 8. DVT Prophylaxis -Lovenox 40 mg sc daily 9. Code status -Full code
[2017-12-14] MEDS: Pantoprazole 40 mg EC Tab PO SCH (10:08)
[2017-12-14] MEDS: Enoxaparin 40 mg Syringe SC SCH (10:08)
--- NOTE | 2017-12-14 10:18 | CARD ---
APPROVED REPORT EKG Measurement Heart [id number] <Conclusion> Sinus tachycardia Possible Inferior infarct, age undetermined Abnormal ECG
[2017-12-14] MEDS: Cholecalciferol 1,000 INTLU TAB PO SCH (13:11)
--- NOTE | 2017-12-14 18:50 | CARD ---
APPROVED REPORT EXAM: Two-dimensional and M-mode echocardiogram with Doppler and color Doppler. Other Information Quality : GoodRhythm : NSR INDICATION Infection:Subacute bacterial endocarditis 2D DIMENSIONS IVSd1.39 (0.7-1.1cm)LVDd4.42 (3.9-5.9cm) LVOT Diameter2.06 (1.8-2.4cm)PWd0.94 (0.7-1.1cm) IVSs1.51 (0.8-1.2cm)LVDs2.69 (2.5-4.0cm) FS (%) 39.2 %PWs1.65 (0.8-1.2cm) M-Mode DIMENSIONS Left Atrium (MM)5.03 (2.5-4.0cm)IVSd1.16 (0.7-1.1cm) Aortic Root3.34 (2.2-3.7cm)LVDd6.38 (4.0-5.6cm) Aortic Cusp Exc.2.38 (1.5-2.0cm)PWd0.97 (0.7-1.1cm) IVSs1.56 cmFS (%) 54 % LVDs2.94 (2.0-3.8cm)PWs1.81 cm Mitral Valve MV E Dujavouo493.8cm/sMV DECEL [id number] A Eaydnmcc70.7cm/s MV DNF19fvT/A ratio1.4MVA (PHT)3.85cm2 TDI Lateral E' Peak V10.51cm/sMedial E' Peak V11.16cm/sE/Lateral E'12.3 E/Medial E'11.5 Pulmonary Valve PV Peak Yhcjnzvr237.7cm/s Tricuspid Valve TR Peak Gqrhhvbs074qv/sRAP [id number] Peak Gr.44mmHg [id number] LEFT VENTRICLE The left ventricle is normal in size on the 2D study. There is normal left ventricular wall thickness. The left ventricular function is normal. The left ventricular ejection fraction is - 75%. There is normal LV segmental wall motion. The left ventricular diastolic function is normal. No left ventricle thrombus noted on this study. There is no ventricular septal defect visualized. There is no left ventricular aneurysm. There is no mass noted in the left ventricle. RIGHT VENTRICLE The right ventricle is normal size. There is normal right ventricular wall thickness. The right ventricular systolic function is normal. ATRIA The left atrium is mildly dilated. There is no thrombus suspected in the left atrium. The right atrium size is normal. The interatrial septum is intact with no evidence for an atrial septal defect. AORTIC VALVE There is an echogenic body attached to the aortic valve. There is mild to moderate aortic regurgitation. There is no aortic valvular stenosis. There is an echogenic body attached to the aortic valve that was seen on the 05/03/2017 study. MITRAL VALVE The mitral valve is normal in structure. There is no evidence of mitral valve prolapse. There is no mitral valve stenosis. Mitral regurgitation is trace. TRICUSPID VALVE The tricuspid valve is normal in structure. There is mild to moderate tricuspid regurgitation. Right ventricular systolic pressure is estimated at 56 mmHg. There is no tricuspid valve prolapse or vegetation. There is no tricuspid valve stenosis. PULMONIC VALVE The pulmonary valve is normal in structure. There is no pulmonic valvular regurgitation. GREAT VESSELS The aortic root is normal in size. The IVC collapses <50% with inspiration. PERICARDIAL EFFUSION The pericardium appears normal. There is no pleural effusion. <Conclusion> The left ventricle is normal in size on the 2D study. There is normal left ventricular wall thickness. The left ventricular function is normal. The left ventricular ejection fraction is - 75%. The left atrium is mildly dilated. There is an echogenic body attached to the aortic valve that was seen on the 05/03/2017 study. The mitral and tricuspid valves are normal. There is mild to moderate regurgitation of both the aortic and tricuspid valves. Please correlate clinically.
[2017-12-15] MEDS: Albuterol-Ipratrop 3 mg / 0.5 (3 ml) UD INH SCH ×7 (00:45→23:36)
--- NOTE | 2017-12-15 01:48 | CON ---
DATE: INFECTIOUS DISEASE CONSULTATION HISTORY OF PRESENT ILLNESS: This is a 67-year-old homeless male, who I have seen before, who has a past medical history of COPD, DM, hypertension,and pulmonary embolus with IVC filter. Apparently, he is not on anticoagulation due to history of retroperitoneal hematoma 2 years ago. Also has a history of psoriasis which is over all of his extremities. The patient came to the ER with productive cough, which started few days prior to admission, which was productive. He has short of breath and wheezing. The patient was living in a longterm and it is very difficult for him to get his medications and take them.. He has, on admission, left-sided chest pain with no radiation and some pleuritic chest pain. The patient has noted fever on the day of admission, which is 12/12/2017. His cough is increasing in severity also. No nausea or vomiting. Obviously, he does not have a PMD. He has no known allergies and as stated above that he had difficulty taking medication, he is not taking his medications. He quitted smoking a year ago and he smoked 3-4 packs a day. He states that there is a history of alcohol abuse also, no drug use. PHYSICAL EXAMINATION: GENERAL: The patient is alert, cooperative, pleasant, and oriented to time and place. HEENT: Within normal limits. Atraumatic and normocephalic. NECK: Supple. LUNGS: He has bilateral rhonchi. He definitely has expiratory wheezing. HEART: Regular sinus rhythm. ABDOMEN: Soft. Positive bowel sounds. EXTREMITIES: Has 1+ pedal edema. No calf tenderness. Has psoriatic lesion all over his upper and lower extremities, scaly dry plaques, they do not appear to be infected. LABORATORY DATA: Microbiology; the reason that I am seeing the patient that his blood culture on 12/12/2017 shows Gram-positive cocci and clusters. There is no identification yet, but I would image it would be Staph. Echocardiogram has been ordered. His white count is 13.7 which is increased since admission which possibly may be due to the steroid, platelet count 249, hemoglobin 11.9, and 76 polys. Chemistry: creatinine 1.2, GFR is greater than 60, and procalcitonin is 0.25. Again cultures are pending. IMPRESSION AND PLAN: Staphylococcal sepsis rule out contaminant in view of chills and positive history of fever. At this point in time, agree with the treatment of vancomycin and Zosyn. Thank you, we will follow this patient with you. Pankaj Alonso MD [facility]
[2017-12-15] MEDS: Piperacillin/Tazobact 3.375 GM in Sodium Chloride 0.9% 100 ML IVPB SCH ×3 (06:30→22:28)
[2017-12-15] MEDS: Insulin Lispro (humaLOG) 100 Units/ml Inj SC SCH ×4 (06:31→22:00)
[2017-12-15 06:51] LABS: HEMOGLOBIN 11.4 g/dL (12.0-18.0); MEAN CELL VOLUME 81.4 fl (80.0-94.0); MEAN CORPUSCULAR HGB CONC 33.1 g/dL (33.0-37.0); RBC 4.23 Mil/uL (4.40-5.90); WHITE BLOOD COUNT 14.4 K/uL (4.8-10.8)
[2017-12-15 07:11] LABS: LDL CHOLESTEROL 94 mg/dL (0-129)
[2017-12-15 07:32] LABS: BLOOD UREA NITROGEN 32 mg/dl (9-20); CALCIUM 8.5 mg/dL (8.4-10.2); GFR AFRICAN-AMERICAN > 60; GFR NON-AFRICAN AMERICAN > 60; HDL CHOLESTEROL 30 MG/DL (30-70)
[2017-12-15] MEDS: Acetylcysteine 20% Inhal Soln (4ml) INH SCH ×2 (07:45→20:18)
--- NOTE | 2017-12-15 08:52 | CP.PCM.PN ---
Subjective - Date & Time of Evaluation Date of Evaluation: 12/15/17 Time of Evaluation: 07:45 - Subjective Subjective: Patient seen and examined this morning. No acute overnight events. Patient continues to have productive cough but reports shortness of breath and wheezing improved with tx. States he can ambulate w/o shortness of breath but require O2 afterward. Tolerating PO. Report dysuria for 2 months. Denies hematuria, urinary frequency, flank pain, nausea/vomiting/fever/chills. Denies chest pain, headache, dizziness or focal weakness. Objective - Vital Signs/Intake and Output Vital Signs (last 24 hours): Temp Pulse Resp BP Pulse Ox 97.8 F 80 18 131/62 100 12/15/17 08:00 12/15/17 08:00 12/15/17 08:00 12/15/17 08:00 12/15/17 08:00 - Medications Medications: Current Medications Acetaminophen (Tylenol 325mg Tab) 650 mg PO Q6 PRN PRN Reason: Pain, Mild (1-3) Acetaminophen (Tylenol 325mg Tab) 650 mg PO Q6 PRN PRN Reason: Fever >100.4 F Acetylcysteine (Acetylcysteine 20%) 2 ml INH RBID [facility] Last Admin: 12/14/17 19:04 Dose: 2 ml Albuterol/Ipratropium (Duoneb 3 Mg/0.5 Mg (3 Ml) Ud) 3 ml INH RQ4 [facility] Last Admin: 12/15/17 05:24 Dose: 3 ml Cholecalciferol (Vitamin D) 2,000 intlu PO DAILY [facility] Last Admin: 12/14/17 13:11 Dose: 2,000 intlu Dextrose (Dextrose 50% Inj) 0 ml IV STAT PRN; Protocol PRN Reason: Hypoglycemia Protocol Dextrose (Glutose 15) 0 gm PO ONCE PRN; Protocol PRN Reason: Hypoglycemia Protocol Enoxaparin Sodium (Lovenox) 40 mg SC DAILY [facility] PRN Reason: Protocol Last Admin: 12/14/17 10:08 Dose: 40 mg Glucagon (Glucagen Diagnostic Kit) 0 mg IM STAT PRN; Protocol PRN Reason: Hypoglycemia Protocol Guaifenesin/Dextromethorphan (Robitussin Dm) 10 ml PO Q6 PRN PRN Reason: Cough Last Admin: 12/14/17 21:58 Dose: 10 ml Vancomycin HCl 750 mg/ Sodium (Chloride) 250 mls @ 166.667 mls/hr IVPB Q12 [facility] PRN Reason: Protocol Last Admin: 12/14/17 21:44 Dose: 166.667 mls/hr Piperacillin Sod/Tazobactam (Sod 3.375 gm/ Sodium Chloride) 100 mls @ 100 mls/ hr IVPB Q8@0630,1430,2230 [facility] PRN Reason: Protocol Last Admin: 12/15/17 06:30 Dose: 100 mls/hr Insulin Human Lispro (Humalog) 0 units SC ACHS [facility] PRN Reason: Protocol Last Admin: 12/15/17 06:31 Dose: 3 units Lactic Acid (Lac-Hydrin 12% Lotion (225 G)) 1 applic TOP TID [facility] Last Admin: 12/14/17 18:00 Dose: 1 applic Methylprednisolone (Solu-Medrol) 60 mg IV Q8H [facility] Last Admin: 12/15/17 06:29 Dose: 60 mg Ondansetron HCl (Zofran Inj) 4 mg IVP Q6 PRN PRN Reason: Nausea/Vomiting Pantoprazole Sodium (Protonix Ec Tab) 40 mg PO DAILY [facility] Last Admin: 12/14/17 10:08 Dose: 40 mg Triamcinolone Acetonide (Kenalog 0.1% Oint) 1 appl TOP BID [facility] Last Admin: 12/14/17 18:01 Dose: 1 applic - Labs Labs: 12/15/17 05:55 12/15/17 05:55 PT 12.9 Seconds (9.8-13.1) 12/12/17 15:38 INR 1.2 (0.9-1.2) 12/12/17 15:38 APTT 28.2 Seconds (25.6-37.1) 12/12/17 15:38 - Additional Findings Additional findings: - Constitutional Appears: Non-toxic, No Acute Distress, Chronically Ill - Head Exam Head Exam: NORMAL INSPECTION - Eye Exam Eye Exam: Normal appearance - ENT Exam ENT Exam: Mucous Membranes Moist - Neck Exam Neck Exam: Normal Inspection - Respiratory Exam Respiratory Exam: Prolonged Expiratory Phase, Wheezes (diffuse), NORMAL BREATHING PATTERN. absent: Accessory Muscle Use, Rhonchi, Respiratory Distress - Cardiovascular Exam Cardiovascular Exam: REGULAR RHYTHM, RRR, +S1, +S2 - GI/Abdominal Exam GI & Abdominal Exam: Soft, Normal Bowel Sounds. absent: Tenderness - Extremities Exam Extremities Exam: Normal Inspection. absent: Calf Tenderness, Pedal Edema - Neurological Exam Neurological Exam: Alert, Awake - Psychiatric Exam Psychiatric exam: Normal Affect, Normal Mood - Skin Additional comments: Scattered psoriatic lesions on extremities Assessment and Plan - Assessment and Plan (Free Text) Assessment: 67 year old male with PMHx of COPD, DMII, HTN, PE with IVC filter admitted for gram positive cocci bacteremia and severe COPD exacerbation 1. Gram positive cocci bacteremia -Pt with a previous Hx of ESBL and MRSA infections. -Blood Cx on 12/12/17: Gram positive cocci in clusters -Leukocytosis( wbc 14.4 today) likely secondary to solumedrol -ID consult, Dr Alonso appreciated. -ECHO:There is an echogenic body attached to the aortic valve that was seen on the 05/03/18 study. -Continue with vancomycin 750 mg IVP q12 (day 3) -Continue with Zosyn 3.375 gm IVPB q8 (day 3) -f/u vanco trough level -f/u cardio recommendation. 2. COPD exacerbation -Stable, still wheezing. -Hx of Asthma, may also be combined w/ asthmatic exacerbation. -Solumedrol 60 mg Q8H, Duoneb Q4H, O2 by nasal canula at 2 L/min -CXR on 12/12/17 - no active disease -Pt with a previous Hx of ESBL and MRSA infections. -[employer] Worker Dr Pugh on board -Sputum Cx: gram negative malik 3. DM 2 - at goal -Last Hgb a1c 5.9 on 10/20/17 -Not on medication -SSI, hypoglycemia protocol 4. Essential HTN -Stable for now. -Monitor BP. 5. History of Pulmonary Embolism -IVC filter in place -2 years ago. 6. Psoriasis -c/w triamcinolone 0.1 % BID -c/w ammonium lactate 12 % TOP TID 7. Dysuria -UA neg on 12/12/17 -f/u UA and urine c&s 8. DVT Prophylaxis -Lovenox 40 mg sc daily 9. Code status -Full code
[2017-12-15] MEDS: Cholecalciferol 1,000 INTLU TAB PO SCH (09:39)
[2017-12-15] MEDS: Enoxaparin 40 mg Syringe SC SCH (09:39)
[2017-12-15] MEDS: Pantoprazole 40 mg EC Tab PO SCH (09:40)
--- NOTE | 2017-12-15 10:54 | CP.PCM.PN ---
Subjective - Date & Time of Evaluation Date of Evaluation: 12/15/17 Time of Evaluation: 10:45 - Subjective Subjective: I D NOTE ECHOCARDIOGRAM SHOWS VEGETATION HAS POSITIVE BLOOD CULTURES (GRAM POS COCCI IN CLUSTERS) PER DISCUSSION c FP RESIDENTS CARDIOLOGY CONSULT ORDERED CONTINUE VANCOMYCIN /ZOSYN FOR PRESENT,MAY CONSIDER CHANGE TO A CARBAPENEM(MEROPENEM)PENDING CULTURE RESULTS Objective - Vital Signs/Intake and Output Vital Signs (last 24 hours): Temp Pulse Resp BP Pulse Ox 97.8 F 80 18 131/62 100 12/15/17 08:00 12/15/17 08:00 12/15/17 08:00 12/15/17 08:00 12/15/17 08:00 - Medications Medications: Current Medications Acetaminophen (Tylenol 325mg Tab) 650 mg PO Q6 PRN PRN Reason: Pain, Mild (1-3) Acetaminophen (Tylenol 325mg Tab) 650 mg PO Q6 PRN PRN Reason: Fever >100.4 F Acetylcysteine (Acetylcysteine 20%) 2 ml INH RBID [facility] Last Admin: 12/14/17 19:04 Dose: 2 ml Albuterol/Ipratropium (Duoneb 3 Mg/0.5 Mg (3 Ml) Ud) 3 ml INH RQ4 [facility] Last Admin: 12/15/17 05:24 Dose: 3 ml Cholecalciferol (Vitamin D) 2,000 intlu PO DAILY [facility] Last Admin: 12/15/17 09:39 Dose: 2,000 intlu Dextrose (Dextrose 50% Inj) 0 ml IV STAT PRN; Protocol PRN Reason: Hypoglycemia Protocol Dextrose (Glutose 15) 0 gm PO ONCE PRN; Protocol PRN Reason: Hypoglycemia Protocol Enoxaparin Sodium (Lovenox) 40 mg SC DAILY [facility] PRN Reason: Protocol Last Admin: 12/15/17 09:39 Dose: 40 mg Glucagon (Glucagen Diagnostic Kit) 0 mg IM STAT PRN; Protocol PRN Reason: Hypoglycemia Protocol Guaifenesin/Dextromethorphan (Robitussin Dm) 10 ml PO Q6 PRN PRN Reason: Cough Last Admin: 12/14/17 21:58 Dose: 10 ml Vancomycin HCl 750 mg/ Sodium (Chloride) 250 mls @ 166.667 mls/hr IVPB Q12 [facility] PRN Reason: Protocol Last Admin: 12/15/17 09:38 Dose: 166.667 mls/hr Piperacillin Sod/Tazobactam (Sod 3.375 gm/ Sodium Chloride) 100 mls @ 100 mls/ hr IVPB Q8@0630,1430,2230 [facility] PRN Reason: Protocol Last Admin: 12/15/17 06:30 Dose: 100 mls/hr Insulin Detemir (Levemir) 5 units SC HS [facility] Insulin Human Lispro (Humalog) 0 units SC ACHS [facility] PRN Reason: Protocol Last Admin: 12/15/17 06:31 Dose: 3 units Lactic Acid (Lac-Hydrin 12% Lotion (225 G)) 1 applic TOP TID [facility] Last Admin: 12/15/17 09:40 Dose: 1 applic Methylprednisolone (Solu-Medrol) 60 mg IV Q12H [facility] Last Admin: 12/15/17 09:50 Dose: 60 mg Ondansetron HCl (Zofran Inj) 4 mg IVP Q6 PRN PRN Reason: Nausea/Vomiting Pantoprazole Sodium (Protonix Ec Tab) 40 mg PO DAILY [facility] Last Admin: 12/15/17 09:40 Dose: 40 mg Triamcinolone Acetonide (Kenalog 0.1% Oint) 1 appl TOP BID [facility] Last Admin: 12/15/17 09:40 Dose: 1 applic - Labs Labs: 12/15/17 05:55 12/15/17 05:55 PT 12.9 Seconds (9.8-13.1) 12/12/17 15:38 INR 1.2 (0.9-1.2) 12/12/17 15:38 APTT 28.2 Seconds (25.6-37.1) 12/12/17 15:38
[2017-12-15] MEDS: guaiFENesin DM 200 mg-20 mg/10 ml UD PO PRN (14:09)
[2017-12-15] MEDS ORDERED: Simethicone 80 mg Chewtab PO PRN (14:26)
--- NOTE | 2017-12-15 16:00 | CP.PCM.PN ---
Subjective - Date & Time of Evaluation Date of Evaluation: 12/15/17 Time of Evaluation: 10:40 - Subjective Subjective: F/U COPD Exacerbation. productive cough , no SOB , no DOLAN Objective - Vital Signs/Intake and Output Vital Signs (last 24 hours): Temp Pulse Resp BP Pulse Ox 97.9 F 83 20 148/74 97 12/15/17 15:35 12/15/17 15:35 12/15/17 15:35 12/15/17 15:35 12/15/17 15:35 - Medications Medications: Current Medications Acetaminophen (Tylenol 325mg Tab) 650 mg PO Q6 PRN PRN Reason: Pain, Mild (1-3) Acetaminophen (Tylenol 325mg Tab) 650 mg PO Q6 PRN PRN Reason: Fever >100.4 F Acetylcysteine (Acetylcysteine 20%) 2 ml INH RBID [facility] Last Admin: 12/15/17 07:45 Dose: 2 ml Albuterol/Ipratropium (Duoneb 3 Mg/0.5 Mg (3 Ml) Ud) 3 ml INH RQ4 [facility] Last Admin: 12/15/17 15:32 Dose: 3 ml Cholecalciferol (Vitamin D) 2,000 intlu PO DAILY [facility] Last Admin: 12/15/17 09:39 Dose: 2,000 intlu Dextrose (Dextrose 50% Inj) 0 ml IV STAT PRN; Protocol PRN Reason: Hypoglycemia Protocol Dextrose (Glutose 15) 0 gm PO ONCE PRN; Protocol PRN Reason: Hypoglycemia Protocol Enoxaparin Sodium (Lovenox) 40 mg SC DAILY [facility] PRN Reason: Protocol Last Admin: 12/15/17 09:39 Dose: 40 mg Glucagon (Glucagen Diagnostic Kit) 0 mg IM STAT PRN; Protocol PRN Reason: Hypoglycemia Protocol Guaifenesin/Dextromethorphan (Robitussin Dm) 10 ml PO Q6 PRN PRN Reason: Cough Last Admin: 12/15/17 14:09 Dose: 10 ml Vancomycin HCl 750 mg/ Sodium (Chloride) 250 mls @ 166.667 mls/hr IVPB Q12 [facility] PRN Reason: Protocol Last Admin: 12/15/17 09:38 Dose: 166.667 mls/hr Piperacillin Sod/Tazobactam (Sod 3.375 gm/ Sodium Chloride) 100 mls @ 100 mls/ hr IVPB Q8@0630,1430,2230 [facility] PRN Reason: Protocol Last Admin: 12/15/17 14:08 Dose: 100 mls/hr Insulin Detemir (Levemir) 5 units SC HS [facility] Insulin Human Lispro (Humalog) 0 units SC ACHS [facility] PRN Reason: Protocol Last Admin: 12/15/17 12:08 Dose: 4 units Lactic Acid (Lac-Hydrin 12% Lotion (225 G)) 1 applic TOP TID [facility] Last Admin: 12/15/17 13:10 Dose: 1 applic Methylprednisolone (Solu-Medrol) 60 mg IV Q12H [facility] Last Admin: 12/15/17 09:50 Dose: 60 mg Ondansetron HCl (Zofran Inj) 4 mg IVP Q6 PRN PRN Reason: Nausea/Vomiting Pantoprazole Sodium (Protonix Ec Tab) 40 mg PO DAILY [facility] Last Admin: 12/15/17 09:40 Dose: 40 mg Saccharomyces Boulardii (Florastor) 250 mg PO BID [facility] Simethicone (Mylicon Chew Tab) 80 mg PO PCHS PRN PRN Reason: Flatulence Triamcinolone Acetonide (Kenalog 0.1% Oint) 1 appl TOP BID [facility] Last Admin: 12/15/17 09:40 Dose: 1 applic - Labs Labs: 12/15/17 05:55 12/15/17 05:55 PT 12.9 Seconds (9.8-13.1) 12/12/17 15:38 INR 1.2 (0.9-1.2) 12/12/17 15:38 APTT 28.2 Seconds (25.6-37.1) 12/12/17 15:38 - Constitutional Appears: Chronically Ill - Head Exam Head Exam: NORMAL INSPECTION - Eye Exam Eye Exam: PERRL - ENT Exam ENT Exam: Normal Exam - Neck Exam Neck Exam: Normal Inspection - Respiratory Exam Respiratory Exam: Decreased Breath Sounds, Wheezes (b/l) - Cardiovascular Exam Cardiovascular Exam: REGULAR RHYTHM - GI/Abdominal Exam GI & Abdominal Exam: Soft - Extremities Exam Additional comments: Edema L/E - Back Exam Back Exam: NORMAL INSPECTION - Neurological Exam Neurological Exam: Alert, Oriented x3 Additional comments: no focal motor/sensory deficit - Psychiatric Exam Psychiatric exam: Normal Mood - Skin Skin Exam: Warm Additional comments: Scaly dry plaques arms and legs Assessment and Plan (1) COPD exacerbation Status: Acute (2) History of pulmonary embolus (PE) Status: Chronic - Assessment and Plan (Free Text) Plan: CT Chest , continue DuoNeb , Mucomyst , Solu Medrol , ID f/u , Blood C-S G (+ ) cocci , ECHO vegetations , Patient on Zosyn Vanco
--- NOTE | 2017-12-15 17:06 | CT ---
PROCEDURE: CT Chest without contrast HISTORY: Exacerbation of COPD. COMPARISON: 06/30/2017 TECHNIQUE: Contiguous axial images were obtained through the chest without intravenous contrast enhancement. Sagittal and coronal reconstructions were performed. Radiation dose (DLP): 544.37 mGy-cm. This CT exam was performed using one or more of the following dose reduction techniques: Automated exposure control, adjustment of the mA and/or kV according to patient size, and/or use of iterative reconstruction technique. FINDINGS: LUNGS: No infiltrates, nodules or masses. Stable hyperinflation, emphysematous change. MEDIASTINUM: Unremarkable thoracic aorta. No aneurysm. Normal sized heart. Stable dilatation the main pulmonary artery. No lymphadenopathy. PLEURA: No pleural fluid. No pneumothorax. BONES: No fracture. No destructive lesion. UPPER ABDOMEN: Grossly unremarkable. OTHER FINDINGS: None. IMPRESSION: No active pulmonary disease. No significant interval change compared to the prior examination(s).
[2017-12-15] MEDS: Saccharomyces Boulardi 250 mg Cap PO SCH (18:12)
[2017-12-15] MEDS: Insulin Detemir 100 Units/ml Inj SC SCH (22:30)
[2017-12-16] MEDS: Albuterol-Ipratrop 3 mg / 0.5 (3 ml) UD INH SCH ×5 (04:45→19:44)
[2017-12-16] MEDS: Piperacillin/Tazobact 3.375 GM in Sodium Chloride 0.9% 100 ML IVPB SCH ×3 (05:30→21:43)
[2017-12-16] MEDS: Insulin Lispro (humaLOG) 100 Units/ml Inj SC SCH ×4 (06:30→22:36)
[2017-12-16] MEDS: Acetylcysteine 20% Inhal Soln (4ml) INH SCH (07:56)
--- NOTE | 2017-12-16 08:12 | CP.PCM.PN ---
Subjective - Date & Time of Evaluation Date of Evaluation: 12/16/17 Time of Evaluation: 07:35 - Subjective Subjective: Patient seen and examined this morning. No acute overnight events. Patient continues to have productive cough and shortness of breath but improving with tx On 2.5 L O2 intermittently. Tolerating PO. Denies chest pain, headache, dizziness or focal weakness. Denies abdominal pain, nausea/vomiting/fever/ chills. Pt is placed on NPO for possible DAVID as per cardiology. Objective - Vital Signs/Intake and Output Vital Signs (last 24 hours): Temp Pulse Resp BP Pulse Ox 98.0 F 81 18 132/54 L 97 12/16/17 07:46 12/16/17 07:46 12/16/17 07:46 12/16/17 07:46 12/16/17 07:46 - Medications Medications: Current Medications Acetaminophen (Tylenol 325mg Tab) 650 mg PO Q6 PRN PRN Reason: Pain, Mild (1-3) Acetaminophen (Tylenol 325mg Tab) 650 mg PO Q6 PRN PRN Reason: Fever >100.4 F Acetylcysteine (Acetylcysteine 20%) 2 ml INH RBID [facility] Last Admin: 12/16/17 07:56 Dose: 2 ml Albuterol/Ipratropium (Duoneb 3 Mg/0.5 Mg (3 Ml) Ud) 3 ml INH RQ4 [facility] Last Admin: 12/16/17 07:56 Dose: 3 ml Cholecalciferol (Vitamin D) 2,000 intlu PO DAILY [facility] Last Admin: 12/15/17 09:39 Dose: 2,000 intlu Dextrose (Dextrose 50% Inj) 0 ml IV STAT PRN; Protocol PRN Reason: Hypoglycemia Protocol Dextrose (Glutose 15) 0 gm PO ONCE PRN; Protocol PRN Reason: Hypoglycemia Protocol Enoxaparin Sodium (Lovenox) 40 mg SC DAILY [facility] PRN Reason: Protocol Last Admin: 12/15/17 09:39 Dose: 40 mg Glucagon (Glucagen Diagnostic Kit) 0 mg IM STAT PRN; Protocol PRN Reason: Hypoglycemia Protocol Guaifenesin/Dextromethorphan (Robitussin Dm) 10 ml PO Q6 PRN PRN Reason: Cough Last Admin: 12/15/17 14:09 Dose: 10 ml Vancomycin HCl 750 mg/ Sodium (Chloride) 250 mls @ 166.667 mls/hr IVPB Q12 [facility] PRN Reason: Protocol Last Admin: 12/15/17 21:18 Dose: 166.667 mls/hr Piperacillin Sod/Tazobactam (Sod 3.375 gm/ Sodium Chloride) 100 mls @ 100 mls/ hr IVPB Q8@0630,1430,2230 [facility] PRN Reason: Protocol Last Admin: 12/16/17 05:30 Dose: 100 mls/hr Insulin Detemir (Levemir) 5 units SC HS [facility] Last Admin: 12/15/17 22:30 Dose: 5 units Insulin Human Lispro (Humalog) 0 units SC ACHS [facility] PRN Reason: Protocol Last Admin: 12/16/17 06:30 Dose: Not Given Lactic Acid (Lac-Hydrin 12% Lotion (225 G)) 1 applic TOP TID [facility] Last Admin: 12/15/17 18:12 Dose: 1 applic Methylprednisolone (Solu-Medrol) 60 mg IV Q12H [facility] Last Admin: 12/15/17 21:15 Dose: 60 mg Ondansetron HCl (Zofran Inj) 4 mg IVP Q6 PRN PRN Reason: Nausea/Vomiting Pantoprazole Sodium (Protonix Ec Tab) 40 mg PO DAILY [facility] Last Admin: 12/15/17 09:40 Dose: 40 mg Saccharomyces Boulardii (Florastor) 250 mg PO BID [facility] Last Admin: 12/15/17 18:12 Dose: 250 mg Simethicone (Mylicon Chew Tab) 80 mg PO [facility] PRN PRN Reason: Flatulence Triamcinolone Acetonide (Kenalog 0.1% Oint) 1 appl TOP BID [facility] Last Admin: 12/15/17 18:13 Dose: 1 applic - Labs Labs: 12/15/17 05:55 12/15/17 05:55 PT 12.9 Seconds (9.8-13.1) 12/12/17 15:38 INR 1.2 (0.9-1.2) 12/12/17 15:38 APTT 28.2 Seconds (25.6-37.1) 12/12/17 15:38 - Additional Findings Additional findings: - Constitutional Appears: Non-toxic, No Acute Distress, Chronically Ill - Head Exam Head Exam: NORMAL INSPECTION - Eye Exam Eye Exam: Normal appearance - ENT Exam ENT Exam: Mucous Membranes Moist - Neck Exam Neck Exam: Normal Inspection - Respiratory Exam Respiratory Exam: Prolonged Expiratory Phase, Wheezes (diffuse), NORMAL BREATHING PATTERN. absent: Accessory Muscle Use, Rhonchi, Respiratory Distress - Cardiovascular Exam Cardiovascular Exam: REGULAR RHYTHM, RRR, +S1, +S2 - GI/Abdominal Exam GI & Abdominal Exam: Soft, Normal Bowel Sounds. absent: Tenderness - Extremities Exam Extremities Exam: Normal Inspection. absent: Calf Tenderness, Pedal Edema - Neurological Exam Neurological Exam: Alert, Awake - Psychiatric Exam Psychiatric exam: Normal Affect, Normal Mood - Skin Additional comments: Scattered psoriatic lesions on extremities ( improving) Assessment and Plan - Assessment and Plan (Free Text) Assessment: 67 year old male with PMHx of COPD, DMII, HTN, PE with IVC filter admitted for coag neg staph bacteremia and severe COPD exacerbation 1. Coag neg staph bacteremia with possible endocarditis -Pt with a previous Hx of ESBL and MRSA infections. -Blood Cx on 12/12/17: Gram positive cocci in clusters -Leukocytosis( wbc 14.4 today) likely secondary to solumedrol -ID consult, Dr Alonso appreciated. -ECHO:There is an echogenic body attached to the aortic valve that was seen on the 05/03/18 study. -Continue with vancomycin 750 mg IVP q12 (day 4) -Continue with Zosyn 3.375 gm IVPB q8 (day 4) -Vanco trough level: 8.4 today -Pt is on NPO for possible DAVID as per cardio 2. COPD exacerbation -Stable, still wheezing. -Hx of Asthma, may also be combined w/ asthmatic exacerbation. -Solumedrol 60 mg Q8H, Duoneb Q4H, O2 by nasal canula at 2 L/min -CXR on 12/12/17 - no active disease -Pt with a previous Hx of ESBL and MRSA infections. -[employer] Advisor Dr Pugh on board -Sputum Cx: E. coli sensitive to zosyn 3. DM 2 - at goal -Last Hgb a1c 5.9 on 10/20/17 -Not on medication -SSI, hypoglycemia protocol 4. Essential HTN -Stable for now. -Monitor BP. 5. History of Pulmonary Embolism -IVC filter in place -2 years ago. 6. Psoriasis -c/w triamcinolone 0.1 % BID -c/w ammonium lactate 12 % TOP TID 7. Dysuria -UA neg on 12/12/17 -f/u UA and urine c&s 8. DVT Prophylaxis -Lovenox 40 mg sc daily 9. Code status -Full code
[2017-12-16] MEDS: Saccharomyces Boulardi 250 mg Cap PO SCH ×2 (10:09→18:05)
[2017-12-16] MEDS: Enoxaparin 40 mg Syringe SC SCH (10:10)
[2017-12-16] MEDS: Pantoprazole 40 mg EC Tab PO SCH (10:12)
[2017-12-16] MEDS: Cholecalciferol 1,000 INTLU TAB PO SCH (10:15)
--- NOTE | 2017-12-16 13:16 | CP.PCM.PN ---
Subjective - Date & Time of Evaluation Date of Evaluation: 12/16/17 - Subjective Subjective: F/U COPD Exacerbation cough productive , no AD , no SOB , ambulating without SOB Objective - Vital Signs/Intake and Output Vital Signs (last 24 hours): Temp Pulse Resp BP Pulse Ox 98.4 F 99 H 18 137/72 100 12/16/17 11:47 12/16/17 11:47 12/16/17 11:47 12/16/17 11:47 12/16/17 11:47 - Medications Medications: Current Medications Acetaminophen (Tylenol 325mg Tab) 650 mg PO Q6 PRN PRN Reason: Pain, Mild (1-3) Acetaminophen (Tylenol 325mg Tab) 650 mg PO Q6 PRN PRN Reason: Fever >100.4 F Acetylcysteine (Acetylcysteine 20%) 2 ml INH RBID [facility] Last Admin: 12/16/17 07:56 Dose: 2 ml Albuterol/Ipratropium (Duoneb 3 Mg/0.5 Mg (3 Ml) Ud) 3 ml INH RQ4 [facility] Last Admin: 12/16/17 11:08 Dose: 3 ml Cholecalciferol (Vitamin D) 2,000 intlu PO DAILY [facility] Last Admin: 12/16/17 10:15 Dose: 2,000 intlu Dextrose (Dextrose 50% Inj) 0 ml IV STAT PRN; Protocol PRN Reason: Hypoglycemia Protocol Dextrose (Glutose 15) 0 gm PO ONCE PRN; Protocol PRN Reason: Hypoglycemia Protocol Glucagon (Glucagen Diagnostic Kit) 0 mg IM STAT PRN; Protocol PRN Reason: Hypoglycemia Protocol Guaifenesin/Dextromethorphan (Robitussin Dm) 10 ml PO Q6 PRN PRN Reason: Cough Last Admin: 12/15/17 14:09 Dose: 10 ml Vancomycin HCl 750 mg/ Sodium (Chloride) 250 mls @ 166.667 mls/hr IVPB Q12 [facility] PRN Reason: Protocol Last Admin: 12/16/17 10:14 Dose: 166.667 mls/hr Piperacillin Sod/Tazobactam (Sod 3.375 gm/ Sodium Chloride) 100 mls @ 100 mls/ hr IVPB Q8@0630,1430,2230 [facility] PRN Reason: Protocol Last Admin: 12/16/17 05:30 Dose: 100 mls/hr Insulin Detemir (Levemir) 5 units SC HS [facility] Last Admin: 12/15/17 22:30 Dose: 5 units Insulin Human Lispro (Humalog) 0 units SC ACHS [facility] PRN Reason: Protocol Last Admin: 12/16/17 06:30 Dose: Not Given Lactic Acid (Lac-Hydrin 12% Lotion (225 G)) 1 applic TOP TID [facility] Last Admin: 12/16/17 10:10 Dose: 1 applic Methylprednisolone (Solu-Medrol) 60 mg IV Q12H [facility] Last Admin: 12/16/17 10:12 Dose: 60 mg Ondansetron HCl (Zofran Inj) 4 mg IVP Q6 PRN PRN Reason: Nausea/Vomiting Pantoprazole Sodium (Protonix Ec Tab) 40 mg PO DAILY [facility] Last Admin: 12/16/17 10:12 Dose: 40 mg Promethazine HCl/Codeine (Phenergan/Codeine Oral Syrup) 5 ml PO Q6 [facility] Saccharomyces Boulardii (Florastor) 250 mg PO BID [facility] Last Admin: 12/16/17 10:09 Dose: 250 mg Simethicone (Mylicon Chew Tab) 80 mg PO [facility] PRN PRN Reason: Flatulence Triamcinolone Acetonide (Kenalog 0.1% Oint) 1 appl TOP BID [facility] Last Admin: 12/16/17 10:09 Dose: 1 applic - Labs Labs: 12/15/17 05:55 12/15/17 05:55 PT 12.9 Seconds (9.8-13.1) 12/12/17 15:38 INR 1.2 (0.9-1.2) 12/12/17 15:38 APTT 28.2 Seconds (25.6-37.1) 12/12/17 15:38 - Constitutional Appears: Chronically Ill - Head Exam Head Exam: NORMAL INSPECTION - Eye Exam Eye Exam: PERRL - ENT Exam ENT Exam: Normal Exam - Neck Exam Neck Exam: Normal Inspection - Respiratory Exam Respiratory Exam: Decreased Breath Sounds (at bases), Rhonchi - Cardiovascular Exam Cardiovascular Exam: REGULAR RHYTHM - GI/Abdominal Exam GI & Abdominal Exam: Soft, Normal Bowel Sounds - Extremities Exam Additional comments: Edema L/E - Back Exam Back Exam: NORMAL INSPECTION - Neurological Exam Neurological Exam: Alert, Oriented x3. absent: Motor Sensory Deficit - Psychiatric Exam Psychiatric exam: Normal Mood - Skin Skin Exam: Warm Additional comments: Scaly dry plaques arms and legs. Assessment and Plan (1) COPD exacerbation Status: Acute (2) History of pulmonary embolus (PE) Status: Chronic - Assessment and Plan (Free Text) Plan: CT Chest , Lungs hyperinflation , emphysematous change , no active pulmonary disease , continue DuoNeb , Mucomyst , Vanco ,Zosyn , Solu Medrol, Patient with Sputum E Coli on Zosyn , treated for Staph coag neg bacteriemia and possible endocarditis
--- NOTE | 2017-12-16 15:13 | CP.PCM.CON ---
History of Present Illness - History of Present Illness History of Present Illness: PT ADMITTED FOR RECURRENT RESP INFXN. BC X 2 SHOWED COAG NEG STAPH. SPUTUM CULTURES SHOWED RECURRENT E COLI. PRIOR ADMISSIONS SHOWED 1 CULTURE POSITIVE FOR MRSA IN BLOOD. HE HAS HAD SEVERAL SPUTUM CULTURES REVEALING DIFFERENT ORGANISMS. ECHO REPORTS AN ECHODENSITY IN AV AREA. PT STATES HE HAS HAD CONTINUED COUGH, FEVER, SOB SINCE PRIOR ADMISSION. DENIES IVDA. I DO NOT BELIEVE THIS IS ENDOCARDITIS. THE AV LEAFLET CALCIFICATION HAS NOT CHANGED IN SIZE, NOR HAS THE SEVERITY OF THE AI. THE VALVE INTEGRITY IS MAINTAINED, WHICH WOULD NOT BE THE CASE IF HE HAD ENDOCARDITIS FOR 6-8 MONTHS. ADDITIONALLY HIS BC HAVE CLEARED ON ABX. 6 WEEKS OF ABX WILL BE CHALLENGING GIVEN HOMELESS STATUS. I WOULD NOT RECOMMEND SURGICAL INTERVENTION FOR SUCH A LESION. DAVID IS NOT INDICATED GIVEN THAT ABOVE, ALSO I DO NOT THINK IT WILL PRIMARY CARE COORDINATOR. CONSIDER BLOOD CULTURE WHILE ON ABX. PTS BC ARE COAG NEG STAPH WHICH OFTEN IS CONTAMINANT. Review of Systems - Constitutional Constitutional: As Per HPI, Fatigue, Fever. absent: Anorexia, Chills, Daytime Sleepiness, Excessive Sweating, Frequent Falls, Headache, Increased Appetite, Lethargy, Malaise, Night Sweats, Snoring, Sleep Apnea, Weight Gain, Weight Loss , Weakness, Other - EENT Eyes: As Per HPI. absent: Blind Spots, Blurred Vision, Change in Vision, Decreased Night Vision, Diplopia, Discharge, Dry Eye, Exophthalmos, Floaters, Irritation, Itchy Eyes, Loss of Peripheral Vision, Pain, Photophobia, Requires Corrective Lenses, Sees Flashes, Spots in Vision, Tunnel Vision, Other Visual Disturbances, Loss of Vision, Other Ears: As Per HPI. absent: Decreased Hearing, Ear Discharge, Ear Pain, Tinnitus , Abnormal Hearing, Disequilibrium, Dizziness, Other Nose/Mouth/Throat: As Per HPI. absent: Epistaxis, Nasal Congestion, Nasal Discharge, Nasal Obstruction, Nasal Trauma, Nose Pain, Post Nasal Drip, Sinus Pain, Sinus Pressure, Bleeding Gums, Change in Voice, Dental Pain, Dry Mouth, Dysphagia, Halitosis, Hoarsness, Lip Swelling, Mouth Lesions, Mouth Pain, Odynophagia, Sore Throat, Throat Swelling, Tongue Swelling, Facial Pain, Neck Pain, Neck Mass, Other - Cardiovascular Cardiovascular: As Per HPI, Chest Pain, Dyspnea on Exertion. absent: Acrocyanosis, Chest Pain at Rest, Chest Pain with Activity, Claudication, Diaphoresis, Dyspnea, Edema, Irregular Heart Rhythm, Pain Radiating to Arm/Neck/ Jaw, Leg Edema, Leg Ulcers, Lightheadedness, Orthopnea, Palpitations, Paroxysmal Nocturnal Dyspnea, Pedal Edema, Radiating Pain, Rapid Heart Rate, Slow Heart Rate, Syncope, Other - Respiratory Respiratory: As Per HPI, Cough, Dyspnea on Exertion, Chest Congestion, Excessive Mucous Production, Change in Mucous Color. absent: Dyspnea, Hemoptysis, Wheezing, Snoring, Stridor, Pain on Inspiration, Pain with Coughing , Other - Gastrointestinal Gastrointestinal: As Per HPI. absent: Abdominal Pain, Belching, Bloating, Change in Bowel Habits, Change in Stool Character, Coffee Ground Emesis, Constipation, Cramping, Diarrhea, Dyspepsia, Dysphagia, Early Satiety, Excessive Flatus, Fecal Incontinence, Heartburn, Hematemesis, Hematochezia, Loose Stools, Melena, Nausea, Odynophagia, Temesmus, Vomiting, Other - Genitourinary Genitourinary: As Per HPI. absent: Change in Urinary Stream, Difficulty Urinating, Dysuria, Flank Pain, Hematuria, Pyuria, Nocturia, Urinary Incontinence, Urinary Frequency, Urinary Hesitance, Urinary Urgency, Voiding Freq/Small Amts, Freq UTI, Hx Renal/Bladder Calculi, Hx /Renal Surgery, Bladder Distension, Other - Reproductive: Male Reproductive:Male: As Per HPI - Musculoskeletal Musculoskeletal: As Per HPI. absent: Abnormal Gait, Arthralgias, Atrophy, Back Pain, Deformity, Joint Swelling, Limited Range of Motion, Loss of Height, Muscle Cramps, Muscle Weakness, Myalgias, Neck Pain, Numbness, Radiating Pain into Limb, Stiffness, Tingling, Other - Integumentary Integumentary: As Per HPI. absent: Acne, Alopecia, Bleeding Lesions, Change in Hair, Change in Nails, Change in Pigmentation, Changing Lesions, Dry Skin, Erythema, Furuncle, Hirsutism, Lesions, New Lesions, Non-Healing Lesions, Photosensitivity, Pruritus, Rash, Skin Pain, Skin Ulcer, Sores, Striae, Swelling , Unusual Bruising, Wounds, Jaundice, Other - Neurological Neurological: As Per HPI. absent: Abnormal Gait, Abnormal Hearing, Abnormal Movements, Abnormal Speech, Behavioral Changes, Burning Sensations, Confusion, Convulsions, Disequilibrium, Dizziness, Numbness, Focal Weakness, Frequent Falls , Headaches, Lack of Coordination, Loss of Vision, Memory Loss, Paresthesias, Radicular Pain, Restless Legs, Sensory Deficit, Syncope, Tingling, Tremor, Vertigo, Weakness, Other Visual Disturbances, Other - Psychiatric Psychiatric: As Per HPI. absent: Abnormal Sleep Pattern, Anhedonia, Anxiety, Auditory Hallucinations, Behavioral Changes, Change in Appetite, Change in Libido, Confusion, Depression, Difficulty Concentrating, Hallucinations, Homicidal Ideation, Hopelessness, Irritability, Memory Loss, Mood Swings, Panic Attacks, Paranoia, Suicidal Ideation, Visual Hallucinations, Tactile Hallucinations, Other - Endocrine Endocrine: As Per HPI. absent: Change in Body Appearance, Change in Libido, Cold Intolorance, Deepening of Voice, Excessive Sweating, Fatigue, Flushing, Heat Intolorance, Increase in Ring/Shoe/Hat Size, Palpitations, Polydipsia, Polyphagia, Polyuria, Other - Hematologic/Lymphatic Hematologic: As Per HPI. absent: Easy Bleeding, Easy Bruising, Lymphadenopathy , Other Past Patient History - Infectious Disease Hx of Infectious Diseases: None - Tetanus Immunizations Tetanus Immunization: Unknown - Past Medical History & Family History Past Medical History?: Yes - Past Social History Smoking Status: Former Smoker (heavy ( 3-4 PPD) quit 1 yr ago.) Chewing Tobacco Use: No Cigar Use: No Alcohol: None Drugs: Denies, Other (Former alcohol abuse.) Home Situation {Lives}: Homeless - CARDIAC Hx Cardiac Disorders: Yes Hx Congestive Heart Failure: Yes Hx Hypertension: Yes - PULMONARY Hx Respiratory Disorders: Yes Hx Asthma: Yes Hx Chronic Obstructive Pulmonary Disease (COPD): Yes Hx Pneumonia: Yes Hx Pulmonary Embolism: Yes - NEUROLOGICAL Hx Neurological Disorder: No - HEENT Hx HEENT Problems: No - RENAL Hx Chronic Kidney Disease: No - ENDOCRINE/METABOLIC Hx Endocrine Disorders: Yes Hx Diabetes Mellitus Type 2: Yes - HEMATOLOGICAL/ONCOLOGICAL Hx Blood Disorders: No Hx Human Immunodeficiency Virus (HIV): No - INTEGUMENTARY Hx Dermatological Problems: Yes (GENERALIZED SKIN PSORIASIS) Hx Psoriasis: Yes - MUSCULOSKELETAL/RHEUMATOLOGICAL Hx Musculoskeletal Disorders: No Hx Falls: No - GASTROINTESTINAL Hx Gastrointestinal Disorders: Yes Other/Comment: GI bleeding - GENITOURINARY/GYNECOLOGICAL Hx Genitourinary Disorders: No - PSYCHIATRIC Hx Psychophysiologic Disorder: No Hx Substance Use: No - SURGICAL HISTORY Hx Surgeries: Yes Other/Comment: IVC Filter - ANESTHESIA Hx Anesthesia: Yes Hx Anesthesia Reactions: No Hx Malignant Hyperthermia: No Meds Allergies/Adverse Reactions: Allergies Allergy/AdvReac Type Severity Reaction Status Date / Time No Known Allergies Allergy Verified 12/12/17 14:45 - Medications Medications: Current Medications Acetaminophen (Tylenol 325mg Tab) 650 mg PO Q6 PRN PRN Reason: Pain, Mild (1-3) Acetaminophen (Tylenol 325mg Tab) 650 mg PO Q6 PRN PRN Reason: Fever >100.4 F Acetylcysteine (Acetylcysteine 20%) 2 ml INH RBID [facility] Last Admin: 12/16/17 07:56 Dose: 2 ml Albuterol/Ipratropium (Duoneb 3 Mg/0.5 Mg (3 Ml) Ud) 3 ml INH RQ4 [facility] Last Admin: 12/16/17 11:08 Dose: 3 ml Cholecalciferol (Vitamin D) 2,000 intlu PO DAILY [facility] Last Admin: 12/16/17 10:15 Dose: 2,000 intlu Dextrose (Dextrose 50% Inj) 0 ml IV STAT PRN; Protocol PRN Reason: Hypoglycemia Protocol Dextrose (Glutose 15) 0 gm PO ONCE PRN; Protocol PRN Reason: Hypoglycemia Protocol Glucagon (Glucagen Diagnostic Kit) 0 mg IM STAT PRN; Protocol PRN Reason: Hypoglycemia Protocol Guaifenesin/Dextromethorphan (Robitussin Dm) 10 ml PO Q6 PRN PRN Reason: Cough Last Admin: 12/15/17 14:09 Dose: 10 ml Vancomycin HCl 750 mg/ Sodium (Chloride) 250 mls @ 166.667 mls/hr IVPB Q12 [facility] PRN Reason: Protocol Last Admin: 12/16/17 10:14 Dose: 166.667 mls/hr Piperacillin Sod/Tazobactam (Sod 3.375 gm/ Sodium Chloride) 100 mls @ 100 mls/ hr IVPB Q8@0630,1430,2230 [facility] PRN Reason: Protocol Last Admin: 12/16/17 13:55 Dose: 100 mls/hr Insulin Detemir (Levemir) 5 units SC HS [facility] Last Admin: 12/15/17 22:30 Dose: 5 units Insulin Human Lispro (Humalog) 0 units SC ACHS [facility] PRN Reason: Protocol Last Admin: 12/16/17 13:51 Dose: 3 units Lactic Acid (Lac-Hydrin 12% Lotion (225 G)) 1 applic TOP TID [facility] Last Admin: 12/16/17 13:53 Dose: 1 applic Methylprednisolone (Solu-Medrol) 60 mg IV Q12H [facility] Last Admin: 12/16/17 10:12 Dose: 60 mg Ondansetron HCl (Zofran Inj) 4 mg IVP Q6 PRN PRN Reason: Nausea/Vomiting Pantoprazole Sodium (Protonix Ec Tab) 40 mg PO DAILY [facility] Last Admin: 12/16/17 10:12 Dose: 40 mg Promethazine HCl/Codeine (Phenergan/Codeine Oral Syrup) 5 ml PO Q6 [facility] Saccharomyces Boulardii (Florastor) 250 mg PO BID [facility] Last Admin: 12/16/17 10:09 Dose: 250 mg Simethicone (Mylicon Chew Tab) 80 mg PO PCHS PRN PRN Reason: Flatulence Triamcinolone Acetonide (Kenalog 0.1% Oint) 1 appl TOP BID [facility] Last Admin: 12/16/17 10:09 Dose: 1 applic Physical Exam - Constitutional Appears: No Acute Distress - Head Exam Head Exam: ATRAUMATIC, NORMAL INSPECTION, NORMOCEPHALIC - Eye Exam Eye Exam: EOMI, Normal appearance, PERRL. absent: Conjunctival injection, Nystagmus, Periorbital swelling, Periorbital tenderness, Scleral icterus Pupil Exam: NORMAL ACCOMODATION, PERRL. absent: Fixed, Irregular, Miosis, Mydriatic, Unequal - ENT Exam ENT Exam: Mucous Membranes Moist, Normal Exam. absent: Mucous Membranes Dry, Normal External Ear Exam, Normal Oropharynx, TM's Normal Bilaterally - Neck Exam Neck exam: Positive for: Normal Inspection. Negative for: Full Rom, Lymphadenopathy, Meningismus, Tenderness, Thyromegaly - Respiratory Exam Respiratory Exam: Chest Wall Tenderness, Prolonged Expiratory Phase, Rhonchi, Wheezes. absent: Accessory Muscle Use, Decreased Breath Sounds, Clear to Auscultation Bilateral, Rales, Respiratory Distress, Stridor, NORMAL BREATHING PATTERN - Cardiovascular Exam Cardiovascular Exam: REGULAR RHYTHM, +S1, +S2, Systolic Murmur. absent: Bradycardia, Tachycardia, Clicks, Diastolic murmur, Gallop, Irregular Rhythm, JVD, RRR, Rubs, +S4 - GI/Abdominal Exam GI & Abdominal Exam: Normal Bowel Sounds, Soft. absent: Bruit, Diminished Bowel Sounds, Distended, Firm, Guarding, Hernia, Hyperactive Bowel Sounds, Hypoactive Bowel Sounds, Mass, Organomegaly, Pulsatile Mass, Rebound, Rigid, Tenderness - Rectal Exam Rectal Exam: Deferred - Extremities Exam Extremities exam: Positive for: normal inspection Additional comments: NO EVIDENCE OF EMBOLIC PHENOMENON NOTED IN EXTREMITIES. - Back Exam Back exam: NORMAL INSPECTION. absent: CVA tenderness (L), CVA tenderness (R), FULL ROM, muscle spasm, paraspinal tenderness, rash noted, tenderness, vertebral tenderness - Neurological Exam Neurological exam: Alert, CN II-XII Intact, Normal Gait, Oriented x3, Reflexes Normal - Psychiatric Exam Psychiatric exam: Normal Affect, Normal Mood - Skin Skin Exam: Dry, Intact, Normal Color, Warm Results - Vital Signs Recent Vital Signs: Last Vital Signs Temp 98.4 F 12/16/17 11:47 Pulse 99 H 12/16/17 11:47 Resp 18 12/16/17 11:47 BP 137/72 12/16/17 11:47 Pulse Ox 100 12/16/17 11:47 - Labs Result Diagrams: 12/15/17 05:55 12/15/17 05:55 Labs: Laboratory Results - last 24 hr 12/15/17 12/15/17 12/15/17 10:52 16:23 20:58 ESR POC Glucose (mg/dL) 260 H 187 H 198 H Vancomycin Trough 12/16/17 12/16/17 12/16/17 05:50 06:00 09:11 ESR 14 POC Glucose (mg/dL) 152 H Vancomycin Trough 8.4 12/16/17 10:41 ESR POC Glucose (mg/dL) 239 H Vancomycin Trough Assessment & Plan (1) Bacteremia due to coagulase-negative Staphylococcus Status: Acute (2) COPD exacerbation Status: Acute Priority: High (3) Bronchitis Status: Acute (4) Pleurisy Status: Acute (5) Hx pulmonary embolism Status: Resolved Priority: High - Assessment and Plan (Free Text) Plan: I REVIEWED THE CURRENT ECHO AND SEVERAL PRIOR ECHOS. PT HAS CALCIFIED AV LEAFLETS, NCC APPEARS MORE CALCIFIED AND RESTRICTED THAN RIGHT AND LEFT CUSPS. THERE IS MILD CENTRAL JET AI WHICH HAS NOT CHANGED OVER PAST 8 MONTHS. PTS B/ C HAVE REVEALED DIFFERENT ORGANISMS ON DIFFERENT ADMISSIONS. ALL BC'S HAVE C
[2017-12-16 16:10] LABS: URINE BILIRUBIN NEGATIVE (NEGATIVE); URINE BLOOD NEGATIVE (NEGATIVE); URINE CLARITY CLEAR (Clear); URINE COLOR YELLOW (YELLOW); URINE GLUCOSE (UA) NEG (Normal); URINE LEUKOCYTE ESTERASE NEG Leu/uL (Negative); URINE PROTEIN 30 mg/dL (NEGATIVE); URINE UROBILINOGEN 0.2-1.0 mg/dL (0.2-1.0)
[2017-12-16] MEDS: Promethazine/Cod 6.25mg-10mg/5ml Syr UD PO SCH ×2 (18:11→23:37)
--- NOTE | 2017-12-16 20:18 | CP.PCM.PN ---
Subjective - Date & Time of Evaluation Date of Evaluation: 12/16/17 Time of Evaluation: 20:02 - Subjective Subjective: I D NOTE CONTNUES TO HAVE POS BLOOD CULTURES FOR STAPH COAG NEG DISCUSSED C CARDIOLOGY CONCERNING ECHO %RX WILL REVIEWDRNATALIA TOMORROW CONTINUE VANCO/ZOSYN FOR PRESENT Objective - Vital Signs/Intake and Output Vital Signs (last 24 hours): Temp Pulse Resp BP Pulse Ox 97.5 F L 92 H 18 157/79 H 99 12/16/17 15:38 12/16/17 15:38 12/16/17 15:38 12/16/17 15:38 12/16/17 15:38 - Medications Medications: Current Medications Acetaminophen (Tylenol 325mg Tab) 650 mg PO Q6 PRN PRN Reason: Pain, Mild (1-3) Acetaminophen (Tylenol 325mg Tab) 650 mg PO Q6 PRN PRN Reason: Fever >100.4 F Acetylcysteine (Acetylcysteine 20%) 2 ml INH RBID [facility] Last Admin: 12/16/17 07:56 Dose: 2 ml Albuterol/Ipratropium (Duoneb 3 Mg/0.5 Mg (3 Ml) Ud) 3 ml INH RQ4 [facility] Last Admin: 12/16/17 19:44 Dose: 3 ml Cholecalciferol (Vitamin D) 2,000 intlu PO DAILY [facility] Last Admin: 12/16/17 10:15 Dose: 2,000 intlu Dextrose (Dextrose 50% Inj) 0 ml IV STAT PRN; Protocol PRN Reason: Hypoglycemia Protocol Dextrose (Glutose 15) 0 gm PO ONCE PRN; Protocol PRN Reason: Hypoglycemia Protocol Glucagon (Glucagen Diagnostic Kit) 0 mg IM STAT PRN; Protocol PRN Reason: Hypoglycemia Protocol Guaifenesin/Dextromethorphan (Robitussin Dm) 10 ml PO Q6 PRN PRN Reason: Cough Last Admin: 12/15/17 14:09 Dose: 10 ml Vancomycin HCl 750 mg/ Sodium (Chloride) 250 mls @ 166.667 mls/hr IVPB Q12 [facility] PRN Reason: Protocol Last Admin: 12/16/17 10:14 Dose: 166.667 mls/hr Piperacillin Sod/Tazobactam (Sod 3.375 gm/ Sodium Chloride) 100 mls @ 100 mls/ hr IVPB Q8@0630,1430,2230 [facility] PRN Reason: Protocol Last Admin: 12/16/17 13:55 Dose: 100 mls/hr Insulin Detemir (Levemir) 5 units SC HS [facility] Last Admin: 12/15/17 22:30 Dose: 5 units Insulin Human Lispro (Humalog) 0 units SC ACHS [facility] PRN Reason: Protocol Last Admin: 12/16/17 18:06 Dose: 6 units Lactic Acid (Lac-Hydrin 12% Lotion (225 G)) 1 applic TOP TID [facility] Last Admin: 12/16/17 18:08 Dose: 1 applic Methylprednisolone (Solu-Medrol) 60 mg IV Q12H [facility] Last Admin: 12/16/17 10:12 Dose: 60 mg Ondansetron HCl (Zofran Inj) 4 mg IVP Q6 PRN PRN Reason: Nausea/Vomiting Pantoprazole Sodium (Protonix Ec Tab) 40 mg PO DAILY [facility] Last Admin: 12/16/17 10:12 Dose: 40 mg Promethazine HCl/Codeine (Phenergan/Codeine Oral Syrup) 5 ml PO Q6 [facility] Last Admin: 12/16/17 18:11 Dose: 5 ml Saccharomyces Boulardii (Florastor) 250 mg PO BID [facility] Last Admin: 12/16/17 18:05 Dose: 250 mg Simethicone (Mylicon Chew Tab) 80 mg PO [facility] PRN PRN Reason: Flatulence Triamcinolone Acetonide (Kenalog 0.1% Oint) 1 appl TOP BID [facility] Last Admin: 12/16/17 18:07 Dose: 1 applic - Labs Labs: 12/15/17 05:55 12/15/17 05:55 PT 12.9 Seconds (9.8-13.1) 12/12/17 15:38 INR 1.2 (0.9-1.2) 12/12/17 15:38 APTT 28.2 Seconds (25.6-37.1) 12/12/17 15:38
[2017-12-16] MEDS: Insulin Detemir 100 Units/ml Inj SC SCH (22:37)
[2017-12-17] MEDS: Albuterol-Ipratrop 3 mg / 0.5 (3 ml) UD INH SCH ×7 (00:02→23:49)
[2017-12-17] MEDS: Promethazine/Cod 6.25mg-10mg/5ml Syr UD PO SCH ×3 (05:09→18:20)
[2017-12-17] MEDS: Piperacillin/Tazobact 3.375 GM in Sodium Chloride 0.9% 100 ML IVPB SCH ×2 (05:34→13:30)
[2017-12-17] MEDS: Insulin Lispro (humaLOG) 100 Units/ml Inj SC SCH ×4 (07:23→21:25)
[2017-12-17] MEDS: Acetylcysteine 20% Inhal Soln (4ml) INH SCH ×2 (08:12→19:27)
--- NOTE | 2017-12-17 09:38 | CP.PCM.PN ---
Subjective - Date & Time of Evaluation Date of Evaluation: 12/17/17 Time of Evaluation: 09:35 - Subjective Subjective: Patient was seen and examined this morning. Patient reports breathing difficulties overnight specially on bed, on and off 2L NC, feels better upright on chair and gets short of breath after few steps. Reports good appetite, no issue voiding. Objective - Vital Signs/Intake and Output Vital Signs (last 24 hours): Temp Pulse Resp BP Pulse Ox 97.7 F 82 18 128/69 99 12/17/17 07:59 12/17/17 07:59 12/17/17 07:59 12/17/17 07:59 12/17/17 07:59 - Medications Medications: Current Medications Acetaminophen (Tylenol 325mg Tab) 650 mg PO Q6 PRN PRN Reason: Pain, Mild (1-3) Acetaminophen (Tylenol 325mg Tab) 650 mg PO Q6 PRN PRN Reason: Fever >100.4 F Acetylcysteine (Acetylcysteine 20%) 2 ml INH RBID [facility] Last Admin: 12/17/17 08:12 Dose: 2 ml Albuterol/Ipratropium (Duoneb 3 Mg/0.5 Mg (3 Ml) Ud) 3 ml INH RQ4 [facility] Last Admin: 12/17/17 08:13 Dose: 3 ml Cholecalciferol (Vitamin D) 2,000 intlu PO DAILY [facility] Last Admin: 12/16/17 10:15 Dose: 2,000 intlu Dextrose (Dextrose 50% Inj) 0 ml IV STAT PRN; Protocol PRN Reason: Hypoglycemia Protocol Dextrose (Glutose 15) 0 gm PO ONCE PRN; Protocol PRN Reason: Hypoglycemia Protocol Glucagon (Glucagen Diagnostic Kit) 0 mg IM STAT PRN; Protocol PRN Reason: Hypoglycemia Protocol Guaifenesin/Dextromethorphan (Robitussin Dm) 10 ml PO Q6 PRN PRN Reason: Cough Last Admin: 12/15/17 14:09 Dose: 10 ml Vancomycin HCl 750 mg/ Sodium (Chloride) 250 mls @ 166.667 mls/hr IVPB Q12 [facility] PRN Reason: Protocol Last Admin: 12/16/17 21:21 Dose: 166.667 mls/hr Piperacillin Sod/Tazobactam (Sod 3.375 gm/ Sodium Chloride) 100 mls @ 100 mls/ hr IVPB Q8@0630,1430,2230 [facility] PRN Reason: Protocol Last Admin: 12/17/17 05:34 Dose: 100 mls/hr Insulin Detemir (Levemir) 5 units SC HS [facility] Last Admin: 12/16/17 22:37 Dose: 5 units Insulin Human Lispro (Humalog) 0 units SC ACHS [facility] PRN Reason: Protocol Last Admin: 12/17/17 07:23 Dose: 3 units Lactic Acid (Lac-Hydrin 12% Lotion (225 G)) 1 applic TOP TID [facility] Last Admin: 12/16/17 18:08 Dose: 1 applic Methylprednisolone (Solu-Medrol) 60 mg IV Q12H [facility] Last Admin: 12/16/17 21:14 Dose: 60 mg Ondansetron HCl (Zofran Inj) 4 mg IVP Q6 PRN PRN Reason: Nausea/Vomiting Pantoprazole Sodium (Protonix Ec Tab) 40 mg PO DAILY [facility] Last Admin: 12/16/17 10:12 Dose: 40 mg Promethazine HCl/Codeine (Phenergan/Codeine Oral Syrup) 5 ml PO Q6 [facility] Last Admin: 12/17/17 05:09 Dose: 5 ml Saccharomyces Boulardii (Florastor) 250 mg PO BID [facility] Last Admin: 12/16/17 18:05 Dose: 250 mg Simethicone (Mylicon Chew Tab) 80 mg PO [facility] PRN PRN Reason: Flatulence Triamcinolone Acetonide (Kenalog 0.1% Oint) 1 appl TOP BID [facility] Last Admin: 12/16/17 18:07 Dose: 1 applic - Labs Labs: 12/15/17 05:55 12/15/17 05:55 PT 12.9 Seconds (9.8-13.1) 12/12/17 15:38 INR 1.2 (0.9-1.2) 12/12/17 15:38 APTT 28.2 Seconds (25.6-37.1) 12/12/17 15:38 - Constitutional Appears: No Acute Distress - Head Exam Head Exam: NORMAL INSPECTION - Eye Exam Eye Exam: Normal appearance - ENT Exam ENT Exam: Mucous Membranes Moist - Neck Exam Neck Exam: Normal Inspection - Respiratory Exam Respiratory Exam: Decreased Breath Sounds (b/l), Wheezes - Cardiovascular Exam Cardiovascular Exam: REGULAR RHYTHM - GI/Abdominal Exam GI & Abdominal Exam: Soft - Extremities Exam Extremities Exam: Normal Capillary Refill - Back Exam Back Exam: NORMAL INSPECTION - Neurological Exam Neurological Exam: Alert, Awake, Oriented x3 - Psychiatric Exam Psychiatric exam: Normal Affect - Skin Skin Exam: Normal Color (with psoriatic skin rash) Assessment and Plan - Assessment and Plan (Free Text) Assessment: A/P: 67 y/o old male with PMHx of COPD, DMII, HTN, PE with IVC filter admitted for coag neg staph bacteremia and severe COPD exacerbation Coag neg staph bacteremia -Afebrile -Pt with a previous Hx of ESBL and MRSA infections. -Blood Cx on 12/12/17: Coag neg Staph -Leukocytosis (wbc 14.4, 12/15) likely secondary to solumedrol -ID consult, Dr Alonso appreciated. -ECHO:There is an echogenic body attached to the aortic valve that was seen on the 05/03/18 study. -Continue with Vancomycin 750 mg IVP q12 (day 4, started on 12/14) -Continue with Zosyn 3.375 gm IVPB q8 (day 4, started on 12/14) -Vanco trough level: 8.4 on 12/16 -As per Cardio, no DAVID at this point, endocarditis unlikely -F/u blood Cx on abx (Bcx on 12/14,No growth after 3 days) COPD exacerbation -Saturating above 98% on 2L NC -B/l Wheezing, hx of asthma -C/w Solumedrol 60 mg Q8H, Duoneb Q4H, O2 by nasal canula at 2 L/min -CXR on 12/12/17 - No active disease -Chest CT 12/15/17- No active disease -Pt with a previous Hx of ESBL and MRSA infections -[facility] Dr Pugh on board -Sputum Cx: E. coli sensitive to zosyn DM 2 - at goal -Last Hgb a1c 5.9 on 10/20/17 -Blood sugar in 200s -Levemir increased 3U, 8U now -SSI, hypoglycemia protocol Essential HTN -Stable for now -Monitor BP History of Pulmonary Embolism -IVC filter in place -2 years ago Psoriasis -c/w triamcinolone 0.1 % BID -c/w ammonium lactate 12 % TOP TID Dysuria -Improved -UA neg 12/16 -f/u urine c&s DVT Prophylaxis -Lovenox 40 mg sc daily Code status -Full code
[2017-12-17] MEDS: Saccharomyces Boulardi 250 mg Cap PO SCH ×2 (09:50→18:17)
[2017-12-17] MEDS: Pantoprazole 40 mg EC Tab PO SCH (09:51)
[2017-12-17] MEDS: Cholecalciferol 1,000 INTLU TAB PO SCH (09:56)
--- NOTE | 2017-12-17 14:13 | CP.PCM.PN ---
Subjective - Date & Time of Evaluation Date of Evaluation: 12/17/17 Time of Evaluation: 12:40 - Subjective Subjective: F/U COPD Exacerbation. Objective - Vital Signs/Intake and Output Vital Signs (last 24 hours): Temp Pulse Resp BP Pulse Ox 97.8 F 78 18 141/67 100 12/17/17 12:00 12/17/17 12:00 12/17/17 12:00 12/17/17 12:00 12/17/17 12:00 - Medications Medications: Current Medications Acetaminophen (Tylenol 325mg Tab) 650 mg PO Q6 PRN PRN Reason: Pain, Mild (1-3) Acetaminophen (Tylenol 325mg Tab) 650 mg PO Q6 PRN PRN Reason: Fever >100.4 F Acetylcysteine (Acetylcysteine 20%) 2 ml INH RBID [facility] Last Admin: 12/17/17 08:12 Dose: 2 ml Albuterol/Ipratropium (Duoneb 3 Mg/0.5 Mg (3 Ml) Ud) 3 ml INH RQ4 [facility] Last Admin: 12/17/17 11:36 Dose: 3 ml Cholecalciferol (Vitamin D) 2,000 intlu PO DAILY [facility] Last Admin: 12/17/17 09:56 Dose: 2,000 intlu Dextrose (Dextrose 50% Inj) 0 ml IV STAT PRN; Protocol PRN Reason: Hypoglycemia Protocol Dextrose (Glutose 15) 0 gm PO ONCE PRN; Protocol PRN Reason: Hypoglycemia Protocol Enoxaparin Sodium (Lovenox) 40 mg SC DAILY [facility] PRN Reason: Protocol Glucagon (Glucagen Diagnostic Kit) 0 mg IM STAT PRN; Protocol PRN Reason: Hypoglycemia Protocol Guaifenesin/Dextromethorphan (Robitussin Dm) 10 ml PO Q6 PRN PRN Reason: Cough Last Admin: 12/15/17 14:09 Dose: 10 ml Vancomycin HCl 750 mg/ Sodium (Chloride) 250 mls @ 166.667 mls/hr IVPB Q12 [facility] PRN Reason: Protocol Last Admin: 12/17/17 09:54 Dose: 166.667 mls/hr Piperacillin Sod/Tazobactam (Sod 3.375 gm/ Sodium Chloride) 100 mls @ 100 mls/ hr IVPB Q8@0630,1430,2230 [facility] PRN Reason: Protocol Last Admin: 12/17/17 13:30 Dose: 100 mls/hr Insulin Detemir (Levemir) 8 units SC HS [facility] Insulin Human Lispro (Humalog) 0 units SC ACHS [facility] PRN Reason: Protocol Last Admin: 12/17/17 13:14 Dose: 3 units Lactic Acid (Lac-Hydrin 12% Lotion (225 G)) 1 applic TOP TID [facility] Last Admin: 12/17/17 13:16 Dose: 1 applic Methylprednisolone (Solu-Medrol) 60 mg IV Q12H [facility] Last Admin: 12/17/17 09:52 Dose: 60 mg Ondansetron HCl (Zofran Inj) 4 mg IVP Q6 PRN PRN Reason: Nausea/Vomiting Promethazine HCl/Codeine (Phenergan/Codeine Oral Syrup) 5 ml PO Q6 [facility] Last Admin: 12/17/17 09:58 Dose: 5 ml Saccharomyces Boulardii (Florastor) 250 mg PO BID [facility] Last Admin: 12/17/17 09:50 Dose: 250 mg Simethicone (Mylicon Chew Tab) 80 mg PO PCHS PRN PRN Reason: Flatulence Triamcinolone Acetonide (Kenalog 0.1% Oint) 1 appl TOP BID [facility] Last Admin: 12/17/17 09:51 Dose: 1 applic - Labs Labs: 12/15/17 05:55 12/15/17 05:55 PT 12.9 Seconds (9.8-13.1) 12/12/17 15:38 INR 1.2 (0.9-1.2) 12/12/17 15:38 APTT 28.2 Seconds (25.6-37.1) 12/12/17 15:38 - Constitutional Appears: Chronically Ill - Head Exam Head Exam: NORMAL INSPECTION - Eye Exam Eye Exam: PERRL - ENT Exam ENT Exam: Normal Exam - Neck Exam Neck Exam: Normal Inspection - Respiratory Exam Respiratory Exam: Decreased Breath Sounds, Rhonchi - Cardiovascular Exam Cardiovascular Exam: REGULAR RHYTHM - GI/Abdominal Exam GI & Abdominal Exam: Soft - Extremities Exam Additional comments: Edema L/E - Back Exam Back Exam: NORMAL INSPECTION - Neurological Exam Neurological Exam: Alert, Oriented x3 - Psychiatric Exam Psychiatric exam: Normal Mood - Skin Skin Exam: Warm Additional comments: Scaly dry plaques arm and legs Assessment and Plan (1) COPD exacerbation Status: Acute (2) History of pulmonary embolus (PE) Status: Chronic
--- NOTE | 2017-12-17 17:25 | CP.PCM.PN ---
Subjective - Date & Time of Evaluation Date of Evaluation: 12/17/17 Time of Evaluation: 17:23 - Subjective Subjective: CONT SOB REPEAT BC X 2 NEG Objective - Vital Signs/Intake and Output Vital Signs (last 24 hours): Temp Pulse Resp BP Pulse Ox 98.3 F 92 H 18 152/73 H 97 12/17/17 16:01 12/17/17 16:01 12/17/17 16:01 12/17/17 16:01 12/17/17 16:01 - Medications Medications: Current Medications Acetaminophen (Tylenol 325mg Tab) 650 mg PO Q6 PRN PRN Reason: Pain, Mild (1-3) Acetaminophen (Tylenol 325mg Tab) 650 mg PO Q6 PRN PRN Reason: Fever >100.4 F Acetylcysteine (Acetylcysteine 20%) 2 ml INH RBID [facility] Last Admin: 12/17/17 08:12 Dose: 2 ml Albuterol/Ipratropium (Duoneb 3 Mg/0.5 Mg (3 Ml) Ud) 3 ml INH RQ4 [facility] Last Admin: 12/17/17 15:50 Dose: 3 ml Cholecalciferol (Vitamin D) 2,000 intlu PO DAILY [facility] Last Admin: 12/17/17 09:56 Dose: 2,000 intlu Dextrose (Dextrose 50% Inj) 0 ml IV STAT PRN; Protocol PRN Reason: Hypoglycemia Protocol Dextrose (Glutose 15) 0 gm PO ONCE PRN; Protocol PRN Reason: Hypoglycemia Protocol Enoxaparin Sodium (Lovenox) 40 mg SC DAILY [facility] PRN Reason: Protocol Glucagon (Glucagen Diagnostic Kit) 0 mg IM STAT PRN; Protocol PRN Reason: Hypoglycemia Protocol Guaifenesin/Dextromethorphan (Robitussin Dm) 10 ml PO Q6 PRN PRN Reason: Cough Last Admin: 12/15/17 14:09 Dose: 10 ml Vancomycin HCl 750 mg/ Sodium (Chloride) 250 mls @ 166.667 mls/hr IVPB Q12 [facility] PRN Reason: Protocol Last Admin: 12/17/17 09:54 Dose: 166.667 mls/hr Insulin Detemir (Levemir) 8 units SC HS [facility] Insulin Human Lispro (Humalog) 0 units SC ACHS [facility] PRN Reason: Protocol Last Admin: 12/17/17 13:14 Dose: 3 units Lactic Acid (Lac-Hydrin 12% Lotion (225 G)) 1 applic TOP TID [facility] Last Admin: 12/17/17 13:16 Dose: 1 applic Methylprednisolone (Solu-Medrol) 60 mg IV Q12H [facility] Last Admin: 12/17/17 09:52 Dose: 60 mg Ondansetron HCl (Zofran Inj) 4 mg IVP Q6 PRN PRN Reason: Nausea/Vomiting Promethazine HCl/Codeine (Phenergan/Codeine Oral Syrup) 5 ml PO Q6 [facility] Last Admin: 12/17/17 09:58 Dose: 5 ml Saccharomyces Boulardii (Florastor) 250 mg PO BID [facility] Last Admin: 12/17/17 09:50 Dose: 250 mg Simethicone (Mylicon Chew Tab) 80 mg PO [facility] PRN PRN Reason: Flatulence Triamcinolone Acetonide (Kenalog 0.1% Oint) 1 appl TOP BID [facility] Last Admin: 12/17/17 09:51 Dose: 1 applic - Labs Labs: 12/15/17 05:55 12/15/17 05:55 PT 12.9 Seconds (9.8-13.1) 12/12/17 15:38 INR 1.2 (0.9-1.2) 12/12/17 15:38 APTT 28.2 Seconds (25.6-37.1) 12/12/17 15:38 - Constitutional Appears: Well - Head Exam Head Exam: ATRAUMATIC, NORMAL INSPECTION, NORMOCEPHALIC - Eye Exam Eye Exam: EOMI, Normal appearance, PERRL. absent: Conjunctival injection, Nystagmus, Periorbital swelling, Periorbital tenderness, Scleral icterus Pupil Exam: NORMAL ACCOMODATION, PERRL - ENT Exam ENT Exam: Mucous Membranes Moist, Normal Exam. absent: Mucous Membranes Dry, Normal External Ear Exam, Normal Oropharynx, TM's Normal Bilaterally - Neck Exam Neck Exam: Full ROM, Normal Inspection. absent: Lymphadenopathy, Meningismus, Tenderness, Thyromegaly - Respiratory Exam Respiratory Exam: Decreased Breath Sounds, Rhonchi, NORMAL BREATHING PATTERN - Cardiovascular Exam Cardiovascular Exam: REGULAR RHYTHM, +S1, +S2, Murmur. absent: Bradycardia, Tachycardia, Clicks, Diastolic murmur, Gallop, Irregular Rhythm, JVD, RRR, Rubs , +S4 - GI/Abdominal Exam GI & Abdominal Exam: Soft, Normal Bowel Sounds. absent: Bruit, Distended, Firm , Guarding, Rigid, Tenderness, Diminished Bowel Sounds, Hernia, Hyperactive Bowel Sounds, Hypoactive Bowel Sounds, Organomegaly, Pulsatile Mass, Rebound, Mass - Rectal Exam Rectal Exam: Deferred - Extremities Exam Extremities Exam: Full ROM, Normal Capillary Refill, Normal Inspection. absent : Calf Tenderness, Joint Swelling, Pedal Edema, Tenderness - Back Exam Back Exam: NORMAL INSPECTION - Neurological Exam Neurological Exam: Alert, Awake, CN II-XII Intact, Normal Gait, Oriented x3 - Psychiatric Exam Psychiatric exam: Normal Affect, Normal Mood. absent: Agitated, Anxious, Depressed, Flat Affect, Homicidal Ideation, Manic, Suicidal Ideation - Skin Skin Exam: Dry, Intact, Normal Color, Warm. absent: Abrasion, Cyanosis, Diaphoretic, Erythema, Mottled, Pallor, Pallor, Petechiae, Rash, Urticaria, Vesicles Assessment and Plan (1) Bacteremia due to coagulase-negative Staphylococcus Status: Acute (2) COPD exacerbation Status: Acute (3) Bronchitis Status: Acute (4) Pleurisy Status: Acute (5) Hx pulmonary embolism Status: Resolved - Assessment and Plan (Free Text) Plan: BC X 2 NEG ON ABX. DOUBT ENDOCARDITIS. WILL D/W ID.
[2017-12-17] MEDS: Enoxaparin 40 mg Syringe SC SCH (18:19)
[2017-12-17] MEDS: Insulin Detemir 100 Units/ml Inj SC SCH (21:27)
[2017-12-18] MEDS: Promethazine/Cod 6.25mg-10mg/5ml Syr UD PO SCH ×5 (00:10→23:49)
[2017-12-18] MEDS: Albuterol-Ipratrop 3 mg / 0.5 (3 ml) UD INH SCH ×6 (05:05→23:20)
[2017-12-18] MEDS: Insulin Lispro (humaLOG) 100 Units/ml Inj SC SCH ×4 (06:40→22:21)
[2017-12-18 07:27] LABS: HEMOGLOBIN 12.3 g/dL (12.0-18.0); LYMPH # 2.1 K/uL (1.0-4.3); MEAN CELL VOLUME 81.4 fl (80.0-94.0); MEAN CORPUSCULAR HEMOGLOBIN 26.9 pg (27.0-31.0); MEAN PLATELET VOLUME 9.2 fl (7.2-11.7); MONO % 7.6 % (0.0-10.0); NEUT # 10.1 K/uL (1.8-7.0); NEUT % 76.4 % (50.0-75.0); NRBC % 0.1 % (0.0-0.0); RBC 4.58 Mil/uL (4.40-5.90); RED CELL DISTRIBUTION WIDTH 15.2 % (11.5-14.5); WHITE BLOOD COUNT 13.2 K/uL (4.8-10.8)
[2017-12-18] MEDS: Acetylcysteine 20% Inhal Soln (4ml) INH SCH ×2 (07:30→19:04)
[2017-12-18 07:41] LABS: ALT/SGPT 31 U/L (21-72); AST/SGOT 16 U/L (17-59); BLOOD UREA NITROGEN 33 mg/dl (9-20); CALCIUM 8.1 mg/dL (8.4-10.2); GFR AFRICAN-AMERICAN > 60; GFR NON-AFRICAN AMERICAN > 60
[2017-12-18] MEDS: Cholecalciferol 1,000 INTLU TAB PO SCH (08:47)
[2017-12-18] MEDS: guaiFENesin DM 200 mg-20 mg/10 ml UD PO PRN ×2 (08:47→22:23)
[2017-12-18] MEDS: Saccharomyces Boulardi 250 mg Cap PO SCH ×2 (08:47→16:57)
[2017-12-18] MEDS: Enoxaparin 40 mg Syringe SC SCH (08:47)
--- NOTE | 2017-12-18 11:34 | CP.PCM.PN ---
Subjective - Date & Time of Evaluation Date of Evaluation: 12/18/17 Time of Evaluation: 11:34 - Subjective Subjective: MARLA by bedside. NAEO Sitting in chair, complains of some SOB while walking. No f/c/n/v/cp. willing to start some PT today Objective - Vital Signs/Intake and Output Vital Signs (last 24 hours): Temp Pulse Resp BP Pulse Ox 97.6 F 86 18 146/64 100 12/18/17 08:18 12/18/17 08:18 12/18/17 08:18 12/18/17 08:18 12/18/17 08:18 - Medications Medications: Current Medications Acetaminophen (Tylenol 325mg Tab) 650 mg PO Q6 PRN PRN Reason: Pain, Mild (1-3) Acetaminophen (Tylenol 325mg Tab) 650 mg PO Q6 PRN PRN Reason: Fever >100.4 F Acetylcysteine (Acetylcysteine 20%) 2 ml INH RBID [facility] Last Admin: 12/18/17 07:30 Dose: 2 ml Albuterol/Ipratropium (Duoneb 3 Mg/0.5 Mg (3 Ml) Ud) 3 ml INH RQ4 [facility] Last Admin: 12/18/17 11:19 Dose: 3 ml Cholecalciferol (Vitamin D) 2,000 intlu PO DAILY [facility] Last Admin: 12/18/17 08:47 Dose: 2,000 intlu Dextrose (Dextrose 50% Inj) 0 ml IV STAT PRN; Protocol PRN Reason: Hypoglycemia Protocol Dextrose (Glutose 15) 0 gm PO ONCE PRN; Protocol PRN Reason: Hypoglycemia Protocol Enoxaparin Sodium (Lovenox) 40 mg SC DAILY [facility] PRN Reason: Protocol Last Admin: 12/18/17 08:47 Dose: 40 mg Glucagon (Glucagen Diagnostic Kit) 0 mg IM STAT PRN; Protocol PRN Reason: Hypoglycemia Protocol Guaifenesin/Dextromethorphan (Robitussin Dm) 10 ml PO Q6 PRN PRN Reason: Cough Last Admin: 12/18/17 08:47 Dose: 10 ml Vancomycin HCl 750 mg/ Sodium (Chloride) 250 mls @ 166.667 mls/hr IVPB Q12 [facility] PRN Reason: Protocol Last Admin: 12/18/17 08:50 Dose: 166.667 mls/hr Piperacillin Sod/Tazobactam (Sod 2.25 gm/ Sodium Chloride) 100 mls @ 100 mls/ hr IVPB Q6 [facility] PRN Reason: Protocol Insulin Detemir (Levemir) 8 units SC HS [facility] Last Admin: 12/17/17 21:27 Dose: 8 u Insulin Human Lispro (Humalog) 0 units SC ACHS [facility] PRN Reason: Protocol Last Admin: 12/18/17 06:40 Dose: 3 units Lactic Acid (Lac-Hydrin 12% Lotion (225 G)) 1 applic TOP TID [facility] Last Admin: 12/18/17 08:53 Dose: 1 applic Methylprednisolone (Solu-Medrol) 60 mg IV Q12H [facility] Last Admin: 12/18/17 08:49 Dose: 60 mg Ondansetron HCl (Zofran Inj) 4 mg IVP Q6 PRN PRN Reason: Nausea/Vomiting Promethazine HCl/Codeine (Phenergan/Codeine Oral Syrup) 5 ml PO Q6 [facility] Last Admin: 12/18/17 10:22 Dose: 5 ml Saccharomyces Boulardii (Florastor) 250 mg PO BID [facility] Last Admin: 12/18/17 08:47 Dose: 250 mg Simethicone (Mylicon Chew Tab) 80 mg PO P[facility] PRN PRN Reason: Flatulence Last Admin: 12/18/17 08:47 Dose: 80 mg Triamcinolone Acetonide (Kenalog 0.1% Oint) 1 appl TOP BID [facility] Last Admin: 12/18/17 08:53 Dose: 1 applic - Labs Labs: 12/18/17 05:50 12/18/17 05:50 PT 12.9 Seconds (9.8-13.1) 12/12/17 15:38 INR 1.2 (0.9-1.2) 12/12/17 15:38 APTT 28.2 Seconds (25.6-37.1) 12/12/17 15:38 - Constitutional Appears: Non-toxic, No Acute Distress - Head Exam Head Exam: ATRAUMATIC, NORMOCEPHALIC - Eye Exam Eye Exam: EOMI - ENT Exam ENT Exam: Mucous Membranes Moist - Neck Exam Neck Exam: Full ROM - Respiratory Exam Respiratory Exam: Rhonchi, Wheezes. absent: Accessory Muscle Use, Respiratory Distress, Stridor - Cardiovascular Exam Cardiovascular Exam: +S1, +S2 - GI/Abdominal Exam GI & Abdominal Exam: Soft. absent: Tenderness - Extremities Exam Extremities Exam: Full ROM, Normal Inspection - Neurological Exam Neurological Exam: Alert, Awake, Oriented x3 - Psychiatric Exam Psychiatric exam: Normal Affect, Normal Mood - Skin Skin Exam: Dry, Normal Color, Warm Assessment and Plan - Assessment and Plan (Free Text) Plan: 67 y/o old male with PMHx of COPD, DMII, HTN, PE with IVC filter admitted for coag neg staph bacteremia and severe COPD exacerbation Coag neg staph bacteremia -Afebrile -Pt with a previous Hx of ESBL and MRSA infections. -Blood Cx on 12/12/17: Coag neg Staph -Leukocytosis likely secondary to solumedrol -ID consult, Dr Alonso appreciated. -ECHO:There is an echogenic body attached to the aortic valve that was seen on the 05/03/18 study. -Continue with Vancomycin 750 mg IVP q12 (day 5, started on 12/14) -Continue with Zosyn 3.375 gm IVPB q8 (day 5, started on 12/14) -taper solumedrol -Vanco trough level: 8.4 on 12/16 -As per Cardio, no DAVID at this point, endocarditis unlikely -F/u blood Cx on abx (Bcx on 12/14,No growth after 3 days) COPD exacerbation -Saturating above 98% on 2L NC -B/l Wheezing, hx of asthma -Solumedrol taper, Duoneb Q4H, O2 by nasal canula at 2 L/min -CXR on 12/12/17 - No active disease -Chest CT 12/15/17- No active disease -Pt with a previous Hx of ESBL and MRSA infections -[employer]gage [employer] Dr Pugh on board -Sputum Cx: E. coli sensitive to zosyn DM 2 - at goal -Last Hgb a1c 5.9 on 10/20/17 -Blood sugar in 200s -Levemir increased 3U, 8U now -SSI, hypoglycemia protocol Essential HTN -Stable for now -Monitor BP History of Pulmonary Embolism -IVC filter in place -2 years ago Psoriasis -c/w triamcinolone 0.1 % BID -c/w ammonium lactate 12 % TOP TID Dysuria -Improved -UA neg 12/16 -f/u urine c&s DVT Prophylaxis -Lovenox 40 mg sc daily Code status -Full code
--- NOTE | 2017-12-18 15:59 | CP.PCM.PN ---
Subjective - Date & Time of Evaluation Date of Evaluation: 12/18/17 Time of Evaluation: 14:20 - Subjective Subjective: F/U COPD Exacerbation. Pt with productive cough, yellowish phlegms, no SOB at rest, DOLAN Objective - Vital Signs/Intake and Output Vital Signs (last 24 hours): Temp Pulse Resp BP Pulse Ox 97.8 F 94 H 18 117/57 L 97 12/18/17 12:32 12/18/17 12:32 12/18/17 12:32 12/18/17 12:32 12/18/17 12:32 - Medications Medications: Current Medications Acetaminophen (Tylenol 325mg Tab) 650 mg PO Q6 PRN PRN Reason: Pain, Mild (1-3) Acetaminophen (Tylenol 325mg Tab) 650 mg PO Q6 PRN PRN Reason: Fever >100.4 F Acetylcysteine (Acetylcysteine 20%) 2 ml INH RBID [facility] Last Admin: 12/18/17 07:30 Dose: 2 ml Albuterol/Ipratropium (Duoneb 3 Mg/0.5 Mg (3 Ml) Ud) 3 ml INH RQ4 [facility] Last Admin: 12/18/17 15:05 Dose: 3 ml Cholecalciferol (Vitamin D) 2,000 intlu PO DAILY [facility] Last Admin: 12/18/17 08:47 Dose: 2,000 intlu Dextrose (Dextrose 50% Inj) 0 ml IV STAT PRN; Protocol PRN Reason: Hypoglycemia Protocol Dextrose (Glutose 15) 0 gm PO ONCE PRN; Protocol PRN Reason: Hypoglycemia Protocol Enoxaparin Sodium (Lovenox) 40 mg SC DAILY [facility] PRN Reason: Protocol Last Admin: 12/18/17 08:47 Dose: 40 mg Glucagon (Glucagen Diagnostic Kit) 0 mg IM STAT PRN; Protocol PRN Reason: Hypoglycemia Protocol Guaifenesin/Dextromethorphan (Robitussin Dm) 10 ml PO Q6 PRN PRN Reason: Cough Last Admin: 12/18/17 08:47 Dose: 10 ml Vancomycin HCl 750 mg/ Sodium (Chloride) 250 mls @ 166.667 mls/hr IVPB Q12 [facility] PRN Reason: Protocol Last Admin: 12/18/17 08:50 Dose: 166.667 mls/hr Piperacillin Sod/Tazobactam (Sod 2.25 gm/ Sodium Chloride) 100 mls @ 100 mls/ hr IVPB Q6 [facility] PRN Reason: Protocol Last Admin: 12/18/17 12:10 Dose: 100 mls/hr Insulin Detemir (Levemir) 8 units SC HS [facility] Last Admin: 12/17/17 21:27 Dose: 8 u Insulin Human Lispro (Humalog) 0 units SC ACHS [facility] PRN Reason: Protocol Last Admin: 12/18/17 12:11 Dose: 2 units Lactic Acid (Lac-Hydrin 12% Lotion (225 G)) 1 applic TOP TID [facility] Last Admin: 12/18/17 12:13 Dose: 1 applic Methylprednisolone (Solu-Medrol) 40 mg IV DAILY [facility] Ondansetron HCl (Zofran Inj) 4 mg IVP Q6 PRN PRN Reason: Nausea/Vomiting Promethazine HCl/Codeine (Phenergan/Codeine Oral Syrup) 5 ml PO Q6 [facility] Last Admin: 12/18/17 10:22 Dose: 5 ml Saccharomyces Boulardii (Florastor) 250 mg PO BID [facility] Last Admin: 12/18/17 08:47 Dose: 250 mg Simethicone (Mylicon Chew Tab) 80 mg PO [facility] PRN PRN Reason: Flatulence Last Admin: 12/18/17 08:47 Dose: 80 mg Triamcinolone Acetonide (Kenalog 0.1% Oint) 1 appl TOP BID [facility] Last Admin: 12/18/17 08:53 Dose: 1 applic - Labs Labs: 12/18/17 05:50 12/18/17 05:50 PT 12.9 Seconds (9.8-13.1) 12/12/17 15:38 INR 1.2 (0.9-1.2) 12/12/17 15:38 APTT 28.2 Seconds (25.6-37.1) 12/12/17 15:38 - Constitutional Appears: Chronically Ill - Head Exam Head Exam: NORMAL INSPECTION - Eye Exam Eye Exam: PERRL - ENT Exam ENT Exam: Normal Exam - Neck Exam Neck Exam: Normal Inspection - Respiratory Exam Respiratory Exam: Decreased Breath Sounds, Rhonchi - Cardiovascular Exam Cardiovascular Exam: REGULAR RHYTHM - GI/Abdominal Exam GI & Abdominal Exam: Soft - Extremities Exam Additional comments: Edema L/E - Back Exam Back Exam: NORMAL INSPECTION - Neurological Exam Neurological Exam: Alert, Oriented x3 - Psychiatric Exam Psychiatric exam: Normal Mood - Skin Skin Exam: Warm Additional comments: Scaly shawn plaques arms and legs Assessment and Plan (1) COPD exacerbation Status: Acute (2) History of pulmonary embolus (PE) Status: Chronic - Assessment and Plan (Free Text) Plan: Decreased Solu-medrol to 40 mg IV , Cardiology no endocarditis , Staph coag neg bacteriemia on Vanco, sputum E Coli on Zosyn
[2017-12-18] MEDS: Insulin Detemir 100 Units/ml Inj SC SCH (22:22)
[2017-12-19] MEDS: Promethazine/Cod 6.25mg-10mg/5ml Syr UD PO SCH ×3 (04:25→18:02)
[2017-12-19] MEDS: Albuterol-Ipratrop 3 mg / 0.5 (3 ml) UD INH SCH ×6 (05:34→19:27)
[2017-12-19] MEDS: Insulin Lispro (humaLOG) 100 Units/ml Inj SC SCH ×4 (06:33→21:49)
[2017-12-19] MEDS: Acetylcysteine 20% Inhal Soln (4ml) INH SCH ×2 (07:50→19:27)
[2017-12-19 08:08] LABS: MEAN CELL VOLUME 81.9 fl (80.0-94.0); MEAN CORPUSCULAR HEMOGLOBIN 26.8 pg (27.0-31.0); MEAN CORPUSCULAR HGB CONC 32.7 g/dL (33.0-37.0); RBC 4.49 Mil/uL (4.40-5.90); RED CELL DISTRIBUTION WIDTH 15.3 % (11.5-14.5); WHITE BLOOD COUNT 15.4 K/uL (4.8-10.8)
[2017-12-19 08:33] LABS: ALB/GLOB RATIO 1.1 (1.0-2.1); ALT/SGPT 29 U/L (21-72); AST/SGOT 23 U/L (17-59); BLOOD UREA NITROGEN 31 mg/dl (9-20); GFR AFRICAN-AMERICAN > 60; GFR NON-AFRICAN AMERICAN > 60
[2017-12-19] MEDS: Saccharomyces Boulardi 250 mg Cap PO SCH ×2 (09:16→18:00)
[2017-12-19] MEDS: MethylPREDNISolone 40 mg Vial IV SCH (09:17)
[2017-12-19] MEDS: Enoxaparin 40 mg Syringe SC SCH (09:17)
[2017-12-19] MEDS: Cholecalciferol 1,000 INTLU TAB PO SCH (09:18)
--- NOTE | 2017-12-19 12:00 | CP.PCM.PN ---
Subjective - Date & Time of Evaluation Date of Evaluation: 12/19/17 Time of Evaluation: 09:30 - Subjective Subjective: Patient was seen and examined this morning at bedside. Patient was laying comfortable on bed, elevated head. Patient reports breathing difficulties overnight but comfortable on 2L NC. Reports intermittent dizziness on exertion , denies chest pain, abdominal pain or urinary symptoms. Good appetite, no issue voiding or BMs. Objective - Vital Signs/Intake and Output Vital Signs (last 24 hours): Temp Pulse Resp BP Pulse Ox 98.2 F 80 18 136/62 100 12/19/17 08:13 12/19/17 09:00 12/19/17 08:13 12/19/17 08:13 12/19/17 08:13 - Medications Medications: Current Medications Acetaminophen (Tylenol 325mg Tab) 650 mg PO Q6 PRN PRN Reason: Pain, Mild (1-3) Acetaminophen (Tylenol 325mg Tab) 650 mg PO Q6 PRN PRN Reason: Fever >100.4 F Acetylcysteine (Acetylcysteine 20%) 2 ml INH RBID [facility] Last Admin: 12/19/17 07:50 Dose: 2 ml Albuterol/Ipratropium (Duoneb 3 Mg/0.5 Mg (3 Ml) Ud) 3 ml INH RQ4 [facility] Last Admin: 12/19/17 11:54 Dose: Not Given Cholecalciferol (Vitamin D) 2,000 intlu PO DAILY [facility] Last Admin: 12/19/17 09:18 Dose: 2,000 intlu Dextrose (Dextrose 50% Inj) 0 ml IV STAT PRN; Protocol PRN Reason: Hypoglycemia Protocol Dextrose (Glutose 15) 0 gm PO ONCE PRN; Protocol PRN Reason: Hypoglycemia Protocol Enoxaparin Sodium (Lovenox) 40 mg SC DAILY [facility] PRN Reason: Protocol Last Admin: 12/19/17 09:17 Dose: 40 mg Glucagon (Glucagen Diagnostic Kit) 0 mg IM STAT PRN; Protocol PRN Reason: Hypoglycemia Protocol Guaifenesin/Dextromethorphan (Robitussin Dm) 10 ml PO Q6 PRN PRN Reason: Cough Last Admin: 12/18/17 22:23 Dose: 10 ml Vancomycin HCl 750 mg/ Sodium (Chloride) 250 mls @ 166.667 mls/hr IVPB Q12 [facility] PRN Reason: Protocol Last Admin: 12/19/17 09:20 Dose: 166.667 mls/hr Piperacillin Sod/Tazobactam (Sod 2.25 gm/ Sodium Chloride) 100 mls @ 100 mls/ hr IVPB Q6 [facility] PRN Reason: Protocol Last Admin: 12/19/17 09:19 Dose: 100 mls/hr Insulin Detemir (Levemir) 8 units SC HS [facility] Last Admin: 12/18/17 22:22 Dose: 8 u Insulin Human Lispro (Humalog) 0 units SC ACHS [facility] PRN Reason: Protocol Last Admin: 12/19/17 06:33 Dose: Not Given Lactic Acid (Lac-Hydrin 12% Lotion (225 G)) 1 applic TOP TID [facility] Methylprednisolone (Solu-Medrol) 40 mg IV DAILY [facility] Last Admin: 12/19/17 09:17 Dose: 40 mg Ondansetron HCl (Zofran Inj) 4 mg IVP Q6 PRN PRN Reason: Nausea/Vomiting Promethazine HCl/Codeine (Phenergan/Codeine Oral Syrup) 5 ml PO Q6 [facility] Last Admin: 12/19/17 09:23 Dose: 5 ml Saccharomyces Boulardii (Florastor) 250 mg PO BID [facility] Last Admin: 12/19/17 09:16 Dose: 250 mg Simethicone (Mylicon Chew Tab) 80 mg PO [facility] PRN PRN Reason: Flatulence Last Admin: 12/18/17 08:47 Dose: 80 mg Triamcinolone Acetonide (Kenalog 0.1% Oint) 1 appl TOP BID [facility] Last Admin: 12/19/17 09:28 Dose: 1 applic - Labs Labs: 12/19/17 06:20 12/19/17 06:20 PT 12.9 Seconds (9.8-13.1) 12/12/17 15:38 INR 1.2 (0.9-1.2) 12/12/17 15:38 APTT 28.2 Seconds (25.6-37.1) 12/12/17 15:38 - Constitutional Appears: No Acute Distress - Head Exam Head Exam: NORMAL INSPECTION - Eye Exam Eye Exam: Normal appearance - ENT Exam ENT Exam: Mucous Membranes Moist - Neck Exam Neck Exam: Normal Inspection - Respiratory Exam Respiratory Exam: Decreased Breath Sounds, Wheezes - Cardiovascular Exam Cardiovascular Exam: REGULAR RHYTHM - GI/Abdominal Exam GI & Abdominal Exam: Soft, Normal Bowel Sounds - Extremities Exam Additional comments: psoriatic skin rash, no edema - Back Exam Back Exam: NORMAL INSPECTION - Neurological Exam Neurological Exam: Alert, Awake, Oriented x3 - Psychiatric Exam Psychiatric exam: Normal Affect - Skin Skin Exam: Normal Color ((psoriatic skin rash)) Assessment and Plan - Assessment and Plan (Free Text) Assessment: A/P: 67 y/o old male with PMHx of COPD, DMII, HTN, PE with IVC filter admitted for coag neg staph bacteremia and severe COPD exacerbation Coag neg staph bacteremia -Afebrile -Pt with a previous Hx of ESBL and MRSA infections. -Blood Cx on 12/12/17: Coag neg Staph -Leukocytosis likely secondary to solumedrol -ID consult, Dr Alonso appreciated. -ECHO:There is an echogenic body attached to the aortic valve that was seen on the 05/03/18 study. -Continue with Vancomycin 750 mg IVP q12 (day 6, started on 12/14) -Continue with Zosyn 3.375 gm IVPB q8 (day 6, started on 12/14) -taper solumedrol on 40 daily (will taper more tomorrow) -Vanco trough level: 8.4 on 12/16 -As per Cardio, no DAVID at this point, endocarditis unlikely -F/u blood Cx on abx (Bcx on 12/14,No growth after 5 days) -Bcx 12/16: NGPD, f/u -Follow up Vanco Trough tomorrow COPD exacerbation -Saturating above 98% on 2L NC -B/l Wheezing, hx of asthma -Solumedrol taper, Duoneb Q4H, O2 by nasal canula at 2 L/min -CXR on 12/12/17 - No active disease -Chest CT 12/15/17- No active disease -Pt with a previous Hx of ESBL and MRSA infections -[employer] Dr Pugh on board -Sputum Cx: E. coli sensitive to zosyn -[place] Solumedrol slowly DM 2 - at goal -Last Hgb a1c 5.9 on 10/20/17 -Accucheck -C/w Levemir -SSI, hypoglycemia protocol Essential HTN -Stable for now -Monitor BP History of Pulmonary Embolism -IVC filter in place -2 years ago Psoriasis -c/w triamcinolone 0.1 % BID -c/w ammonium lactate 12 % TOP TID Dysuria -Improved -UA neg 12/16 -Urine c&s, negative, final DVT Prophylaxis -Lovenox 40 mg sc daily Code status -Full code
--- NOTE | 2017-12-19 16:18 | CP.PCM.PN ---
Subjective - Date & Time of Evaluation Date of Evaluation: 12/19/17 Time of Evaluation: 16:15 - Subjective Subjective: I D NOTE DISCUSSED c CARDIOLOGY WHO HAS REVIEWED PATIENTs ECHOCARDIOGRAMS .NOT ENDOCARDITIS WBC HAS INCREASED HAVE BEEN TREATING c antonella s IMPROVEMENT HAVE STARTED MEROPENEM Objective - Vital Signs/Intake and Output Vital Signs (last 24 hours): Temp Pulse Resp BP Pulse Ox 98.4 F 75 18 148/73 100 12/19/17 12:22 12/19/17 12:22 12/19/17 12:22 12/19/17 12:22 12/19/17 12:22 - Medications Medications: Current Medications Acetaminophen (Tylenol 325mg Tab) 650 mg PO Q6 PRN PRN Reason: Pain, Mild (1-3) Acetaminophen (Tylenol 325mg Tab) 650 mg PO Q6 PRN PRN Reason: Fever >100.4 F Acetylcysteine (Acetylcysteine 20%) 2 ml INH RBID [facility] Last Admin: 12/19/17 07:50 Dose: 2 ml Albuterol/Ipratropium (Duoneb 3 Mg/0.5 Mg (3 Ml) Ud) 3 ml INH RQ4 [facility] Last Admin: 12/19/17 15:32 Dose: 3 ml Cholecalciferol (Vitamin D) 2,000 intlu PO DAILY [facility] Last Admin: 12/19/17 09:18 Dose: 2,000 intlu Dextrose (Dextrose 50% Inj) 0 ml IV STAT PRN; Protocol PRN Reason: Hypoglycemia Protocol Dextrose (Glutose 15) 0 gm PO ONCE PRN; Protocol PRN Reason: Hypoglycemia Protocol Enoxaparin Sodium (Lovenox) 40 mg SC DAILY [facility] PRN Reason: Protocol Last Admin: 12/19/17 09:17 Dose: 40 mg Glucagon (Glucagen Diagnostic Kit) 0 mg IM STAT PRN; Protocol PRN Reason: Hypoglycemia Protocol Guaifenesin/Dextromethorphan (Robitussin Dm) 10 ml PO Q6 PRN PRN Reason: Cough Last Admin: 12/18/17 22:23 Dose: 10 ml Vancomycin HCl 750 mg/ Sodium (Chloride) 250 mls @ 166.667 mls/hr IVPB Q12 [facility] PRN Reason: Protocol Last Admin: 12/19/17 09:20 Dose: 166.667 mls/hr Piperacillin Sod/Tazobactam (Sod 2.25 gm/ Sodium Chloride) 100 mls @ 100 mls/ hr IVPB Q6 [facility] PRN Reason: Protocol Last Admin: 12/19/17 09:19 Dose: 100 mls/hr Insulin Detemir (Levemir) 8 units SC HS [facility] Last Admin: 12/18/17 22:22 Dose: 8 u Insulin Human Lispro (Humalog) 0 units SC ACHS [facility] PRN Reason: Protocol Last Admin: 12/19/17 12:55 Dose: Not Given Lactic Acid (Lac-Hydrin 12% Lotion (225 G)) 1 applic TOP TID [facility] Methylprednisolone (Solu-Medrol) 40 mg IV DAILY [facility] Last Admin: 12/19/17 09:17 Dose: 40 mg Ondansetron HCl (Zofran Inj) 4 mg IVP Q6 PRN PRN Reason: Nausea/Vomiting Saccharomyces Boulardii (Florastor) 250 mg PO BID [facility] Last Admin: 12/19/17 09:16 Dose: 250 mg Simethicone (Mylicon Chew Tab) 80 mg PO PC PRN PRN Reason: Flatulence Last Admin: 12/18/17 08:47 Dose: 80 mg Triamcinolone Acetonide (Kenalog 0.1% Oint) 1 appl TOP BID [facility] Last Admin: 12/19/17 09:28 Dose: 1 applic - Labs Labs: 12/19/17 06:20 12/19/17 06:20 PT 12.9 Seconds (9.8-13.1) 12/12/17 15:38 INR 1.2 (0.9-1.2) 12/12/17 15:38 APTT 28.2 Seconds (25.6-37.1) 12/12/17 15:38
--- NOTE | 2017-12-19 19:39 | CP.PCM.PN ---
Subjective - Date & Time of Evaluation Date of Evaluation: 12/19/17 Time of Evaluation: 14:30 - Subjective Subjective: F/U COPD Exacerbation. cough productive , mild SOB at rest , relieved with O2 Objective - Vital Signs/Intake and Output Vital Signs (last 24 hours): Temp Pulse Resp BP Pulse Ox 98 F 80 18 142/65 99 12/19/17 16:51 12/19/17 16:51 12/19/17 16:51 12/19/17 16:51 12/19/17 16:51 Intake and Output: 12/19/17 12/20/17 18:59 06:59 Intake Total 1450 Balance 1450 - Medications Medications: Current Medications Acetaminophen (Tylenol 325mg Tab) 650 mg PO Q6 PRN PRN Reason: Pain, Mild (1-3) Acetaminophen (Tylenol 325mg Tab) 650 mg PO Q6 PRN PRN Reason: Fever >100.4 F Acetylcysteine (Acetylcysteine 20%) 2 ml INH RBID [facility] Last Admin: 12/19/17 19:27 Dose: 2 ml Albuterol/Ipratropium (Duoneb 3 Mg/0.5 Mg (3 Ml) Ud) 3 ml INH RQ4 [facility] Last Admin: 12/19/17 19:27 Dose: 3 ml Cholecalciferol (Vitamin D) 2,000 intlu PO DAILY [facility] Last Admin: 12/19/17 09:18 Dose: 2,000 intlu Dextrose (Dextrose 50% Inj) 0 ml IV STAT PRN; Protocol PRN Reason: Hypoglycemia Protocol Dextrose (Glutose 15) 0 gm PO ONCE PRN; Protocol PRN Reason: Hypoglycemia Protocol Enoxaparin Sodium (Lovenox) 40 mg SC DAILY [facility] PRN Reason: Protocol Last Admin: 12/19/17 09:17 Dose: 40 mg Glucagon (Glucagen Diagnostic Kit) 0 mg IM STAT PRN; Protocol PRN Reason: Hypoglycemia Protocol Guaifenesin/Dextromethorphan (Robitussin Dm) 10 ml PO Q6 PRN PRN Reason: Cough Last Admin: 12/18/17 22:23 Dose: 10 ml Vancomycin HCl 750 mg/ Sodium (Chloride) 250 mls @ 166.667 mls/hr IVPB Q12 [facility] PRN Reason: Protocol Last Admin: 12/19/17 09:20 Dose: 166.667 mls/hr Meropenem 1 gm/ Sodium (Chloride) 100 mls @ 100 mls/hr IVPB Q12 [facility] PRN Reason: Protocol Insulin Detemir (Levemir) 8 units SC HS [facility] Last Admin: 12/18/17 22:22 Dose: 8 u Insulin Human Lispro (Humalog) 0 units SC ACHS [facility] PRN Reason: Protocol Last Admin: 12/19/17 18:00 Dose: 3 units Lactic Acid (Lac-Hydrin 12% Lotion (225 G)) 1 applic TOP TID [facility] Last Admin: 12/19/17 17:59 Dose: 1 applic Methylprednisolone (Solu-Medrol) 40 mg IV DAILY [facility] Last Admin: 12/19/17 09:17 Dose: 40 mg Ondansetron HCl (Zofran Inj) 4 mg IVP Q6 PRN PRN Reason: Nausea/Vomiting Saccharomyces Boulardii (Florastor) 250 mg PO BID [facility] Last Admin: 12/19/17 18:00 Dose: 250 mg Simethicone (Mylicon Chew Tab) 80 mg PO [facility] PRN PRN Reason: Flatulence Last Admin: 12/18/17 08:47 Dose: 80 mg Triamcinolone Acetonide (Kenalog 0.1% Oint) 1 appl TOP BID [facility] Last Admin: 12/19/17 18:01 Dose: 1 applic - Labs Labs: 12/19/17 06:20 12/19/17 06:20 PT 12.9 Seconds (9.8-13.1) 12/12/17 15:38 INR 1.2 (0.9-1.2) 12/12/17 15:38 APTT 28.2 Seconds (25.6-37.1) 12/12/17 15:38 - Constitutional Appears: Chronically Ill - Head Exam Head Exam: NORMAL INSPECTION - Eye Exam Eye Exam: PERRL - ENT Exam ENT Exam: Normal Exam - Neck Exam Neck Exam: Normal Inspection - Respiratory Exam Respiratory Exam: Decreased Breath Sounds, Rhonchi - Cardiovascular Exam Cardiovascular Exam: REGULAR RHYTHM - GI/Abdominal Exam GI & Abdominal Exam: Soft - Extremities Exam Additional comments: Edema b/l L/E - Back Exam Back Exam: NORMAL INSPECTION - Neurological Exam Neurological Exam: Alert, Oriented x3 - Psychiatric Exam Psychiatric exam: Normal Mood - Skin Skin Exam: Warm Additional comments: Scaly dry plaques arms and legs Assessment and Plan (1) COPD exacerbation Status: Acute (2) History of pulmonary embolus (PE) Status: Chronic - Assessment and Plan (Free Text) Plan: continue Duoneb , Mucomyst , WBC up , Staph coag neg bacteriemia , on Vanco , sputum E Coli , Zosyn DC , started on Merren
[2017-12-19] MEDS: Insulin Detemir 100 Units/ml Inj SC SCH (21:58)
[2017-12-19] MEDS: Meropenem 1 GM in Sodium Chloride 0.9% 100 ML IVPB SCH (21:59)
[2017-12-20] MEDS: Albuterol-Ipratrop 3 mg / 0.5 (3 ml) UD INH SCH ×7 (00:37→23:24)
[2017-12-20 05:27] LABS: HEMOGLOBIN 11.6 g/dL (12.0-18.0); MEAN CELL VOLUME 82.1 fl (80.0-94.0); MEAN CORPUSCULAR HGB CONC 32.9 g/dL (33.0-37.0); RBC 4.3 Mil/uL (4.40-5.90); RED CELL DISTRIBUTION WIDTH 15.3 % (11.5-14.5); WHITE BLOOD COUNT 11.7 K/uL (4.8-10.8)
[2017-12-20 05:51] LABS: ALBUMIN 2.8 g/dL (3.5-5.0); ALT/SGPT 27 U/L (21-72); AST/SGOT 30 U/L (17-59); BLOOD UREA NITROGEN 29 mg/dl (9-20); CALCIUM 7.7 mg/dL (8.4-10.2); GFR AFRICAN-AMERICAN > 60; GFR NON-AFRICAN AMERICAN > 60
[2017-12-20] MEDS: Insulin Lispro (humaLOG) 100 Units/ml Inj SC SCH ×4 (06:33→22:12)
[2017-12-20] MEDS: Acetylcysteine 20% Inhal Soln (4ml) INH SCH ×2 (07:37→19:43)
[2017-12-20] MEDS: Meropenem 1 GM in Sodium Chloride 0.9% 100 ML IVPB SCH ×2 (09:04→21:58)
[2017-12-20] MEDS: MethylPREDNISolone 40 mg Vial IV SCH (09:06)
[2017-12-20] MEDS: Saccharomyces Boulardi 250 mg Cap PO SCH ×2 (09:06→18:27)
[2017-12-20] MEDS: Cholecalciferol 1,000 INTLU TAB PO SCH (09:06)
[2017-12-20] MEDS: Enoxaparin 40 mg Syringe SC SCH (09:06)
--- NOTE | 2017-12-20 09:19 | CP.PCM.PN ---
Subjective - Date & Time of Evaluation Date of Evaluation: 12/20/17 Time of Evaluation: 08:00 - Subjective Subjective: Patient seen and examined at bedside. Patient was sleeping comfortably w/o NC, reports SOB overnight and used on and off 2L NC. Patient reports one episode of vomiting last night after dinner and 2 loose watery stool this morning w/o any nausea or GI discomfort this morning. patient denies any fever, chills, chest pain, urinary symptoms or weakness. Objective - Vital Signs/Intake and Output Vital Signs (last 24 hours): Temp Pulse Resp BP Pulse Ox 98.1 F 81 20 139/67 99 12/20/17 08:22 12/20/17 08:22 12/20/17 08:22 12/20/17 08:22 12/20/17 08:22 - Medications Medications: Current Medications Acetaminophen (Tylenol 325mg Tab) 650 mg PO Q6 PRN PRN Reason: Pain, Mild (1-3) Acetaminophen (Tylenol 325mg Tab) 650 mg PO Q6 PRN PRN Reason: Fever >100.4 F Acetylcysteine (Acetylcysteine 20%) 2 ml INH RBID [facility] Last Admin: 12/20/17 07:37 Dose: 2 ml Albuterol/Ipratropium (Duoneb 3 Mg/0.5 Mg (3 Ml) Ud) 3 ml INH RQ4 [facility] Last Admin: 12/20/17 07:36 Dose: 3 ml Cholecalciferol (Vitamin D) 2,000 intlu PO DAILY [facility] Last Admin: 12/20/17 09:06 Dose: 2,000 intlu Dextrose (Dextrose 50% Inj) 0 ml IV STAT PRN; Protocol PRN Reason: Hypoglycemia Protocol Dextrose (Glutose 15) 0 gm PO ONCE PRN; Protocol PRN Reason: Hypoglycemia Protocol Enoxaparin Sodium (Lovenox) 40 mg SC DAILY [facility] PRN Reason: Protocol Last Admin: 12/20/17 09:06 Dose: 40 mg Glucagon (Glucagen Diagnostic Kit) 0 mg IM STAT PRN; Protocol PRN Reason: Hypoglycemia Protocol Guaifenesin/Dextromethorphan (Robitussin Dm) 10 ml PO Q6 PRN PRN Reason: Cough Last Admin: 12/18/17 22:23 Dose: 10 ml Vancomycin HCl 750 mg/ Sodium (Chloride) 250 mls @ 166.667 mls/hr IVPB Q12 [facility] PRN Reason: Protocol Last Admin: 12/20/17 09:03 Dose: 166.667 mls/hr Meropenem 1 gm/ Sodium (Chloride) 100 mls @ 100 mls/hr IVPB Q12 [facility] PRN Reason: Protocol Last Admin: 12/20/17 09:04 Dose: 100 mls/hr Insulin Detemir (Levemir) 8 units SC HS [facility] Last Admin: 12/19/17 21:58 Dose: 8 u Insulin Human Lispro (Humalog) 0 units SC ACHS [facility] PRN Reason: Protocol Last Admin: 12/20/17 06:33 Dose: Not Given Lactic Acid (Lac-Hydrin 12% Lotion (225 G)) 1 applic TOP TID [facility] Last Admin: 12/20/17 09:07 Dose: 1 applic Methylprednisolone (Solu-Medrol) 40 mg IV DAILY [facility] Last Admin: 12/20/17 09:06 Dose: 40 mg Ondansetron HCl (Zofran Inj) 4 mg IVP Q6 PRN PRN Reason: Nausea/Vomiting Saccharomyces Boulardii (Florastor) 250 mg PO BID [facility] Last Admin: 12/20/17 09:06 Dose: 250 mg Simethicone (Mylicon Chew Tab) 80 mg PO [facility] PRN PRN Reason: Flatulence Last Admin: 12/18/17 08:47 Dose: 80 mg Triamcinolone Acetonide (Kenalog 0.1% Oint) 1 appl TOP BID [facility] Last Admin: 12/20/17 09:07 Dose: 1 applic - Labs Labs: 12/20/17 04:50 12/20/17 04:50 PT 12.9 Seconds (9.8-13.1) 12/12/17 15:38 INR 1.2 (0.9-1.2) 12/12/17 15:38 APTT 28.2 Seconds (25.6-37.1) 12/12/17 15:38 - Constitutional Appears: No Acute Distress - Head Exam Head Exam: NORMAL INSPECTION - Eye Exam Eye Exam: Normal appearance - ENT Exam ENT Exam: Mucous Membranes Moist - Neck Exam Neck Exam: Normal Inspection - Respiratory Exam Respiratory Exam: Decreased Breath Sounds, Wheezes - Cardiovascular Exam Cardiovascular Exam: REGULAR RHYTHM, +S1, +S2 - GI/Abdominal Exam GI & Abdominal Exam: Soft, Normal Bowel Sounds - Extremities Exam Additional comments: Psoriatic skin changes - Back Exam Back Exam: absent: CVA tenderness (L), CVA tenderness (R) - Neurological Exam Neurological Exam: Alert, Awake, Oriented x3 - Psychiatric Exam Psychiatric exam: Normal Affect - Skin Skin Exam: Dry, Intact, Normal Color, Warm Assessment and Plan - Assessment and Plan (Free Text) Assessment: A/P: 67 y/o old male with PMHx of COPD, DMII, HTN, PE with IVC filter admitted for coag neg staph bacteremia and severe COPD exacerbation Coag neg staph bacteremia -Afebrile -Pt with a previous Hx of ESBL and MRSA infections. -Blood Cx on 12/12/17: Coag neg Staph -Leukocytosis likely secondary to solumedrol -ID consult, Dr Alonso appreciated. -ECHO:There is an echogenic body attached to the aortic valve that was seen on the 05/03/18 study. -Echo on 12/14: No endocarditis -Continue with Vancomycin 750 mg IVP q12 (day 7, started on 12/14) -S/p Zosyn 3.375 gm IVPB q8 (6day , started on 12/14, d/c on 12/19) -Started on Meropenem 1g Q12 hours, day 1 (started on 12/19 evening) -taper solumedrol on 40 daily (will taper more tomorrow) -Vanco trough level: 8.4 on 12/16 -Vanc trough level: 9.4 on 12/20 -As per Cardio, no DAVID at this point, endocarditis unlikely -F/u blood Cx on abx (Bcx on 12/14,No growth after 5 days) -Bcx 12/15 and 12/16: NGPD, f/u COPD exacerbation -Saturating above 98% on 2L NC -B/l Wheezing, hx of asthma -Solumedrol taper IV, Duoneb Q4H, O2 by nasal canula at 2 L/min -CXR on 12/12/17 - No active disease -Chest CT 12/15/17- No active disease -Pt with a previous Hx of ESBL and MRSA infections -Hospice Clinical Manager Dr Pugh on board -Sputum Cx: E. coli sensitive to zosyn -Collette IV Solumedrol slowly, will consider PO prednisolone from tomorrow DM 2 - at goal -Last Hgb a1c 5.9 on 10/20/17 -Accucheck -C/w Levemir will adjust the dose with Steroid tapering -SSI, hypoglycemia protocol Essential HTN -Stable for now -Monitor BP History of Pulmonary Embolism -IVC filter in place -2 years ago Psoriasis -c/w triamcinolone 0.1 % BID -c/w ammonium lactate 12 % TOP TID Dysuria -Improved -UA neg 12/16 -Urine c&s, negative, final DVT Prophylaxis -Lovenox 40 mg sc daily Code status -Full code
--- NOTE | 2017-12-20 16:02 | CP.PCM.PN ---
Subjective - Date & Time of Evaluation Date of Evaluation: 12/20/17 Time of Evaluation: 10:40 - Subjective Subjective: F/U COPD Exacerbation no SOB at rest off O2, DOLAN ,cough withh yellowish flegm , episode of vomiting after dinner last night , 2 loose BM today Objective - Vital Signs/Intake and Output Vital Signs (last 24 hours): Temp Pulse Resp BP Pulse Ox 97.2 F L 78 18 137/69 100 12/20/17 12:09 12/20/17 12:12/20/17 12:12/20/17 12:12/20/17 12:09 - Medications Medications: Current Medications Acetaminophen (Tylenol 325mg Tab) 650 mg PO Q6 PRN PRN Reason: Pain, Mild (1-3) Acetaminophen (Tylenol 325mg Tab) 650 mg PO Q6 PRN PRN Reason: Fever >100.4 F Acetylcysteine (Acetylcysteine 20%) 2 ml INH RBID [facility] Last Admin: 12/20/17 07:37 Dose: 2 ml Albuterol/Ipratropium (Duoneb 3 Mg/0.5 Mg (3 Ml) Ud) 3 ml INH RQ4 [facility] Last Admin: 12/20/17 15:40 Dose: 3 ml Cholecalciferol (Vitamin D) 2,000 intlu PO DAILY [facility] Last Admin: 12/20/17 09:06 Dose: 2,000 intlu Dextrose (Dextrose 50% Inj) 0 ml IV STAT PRN; Protocol PRN Reason: Hypoglycemia Protocol Dextrose (Glutose 15) 0 gm PO ONCE PRN; Protocol PRN Reason: Hypoglycemia Protocol Glucagon (Glucagen Diagnostic Kit) 0 mg IM STAT PRN; Protocol PRN Reason: Hypoglycemia Protocol Guaifenesin/Dextromethorphan (Robitussin Dm) 10 ml PO Q6 PRN PRN Reason: Cough Last Admin: 12/18/17 22:23 Dose: 10 ml Vancomycin HCl 750 mg/ Sodium (Chloride) 250 mls @ 166.667 mls/hr IVPB Q12 [facility] PRN Reason: Protocol Last Admin: 12/20/17 09:03 Dose: 166.667 mls/hr Meropenem 1 gm/ Sodium (Chloride) 100 mls @ 100 mls/hr IVPB Q12 [facility] PRN Reason: Protocol Last Admin: 12/20/17 09:04 Dose: 100 mls/hr Insulin Detemir (Levemir) 8 units SC HS [facility] Last Admin: 12/19/17 21:58 Dose: 8 u Insulin Human Lispro (Humalog) 0 units SC [facility] PRN Reason: Protocol Last Admin: 12/20/17 13:00 Dose: Not Given Lactic Acid (Lac-Hydrin 12% Lotion (225 G)) 1 applic TOP TID [facility] Last Admin: 12/20/17 09:07 Dose: 1 applic Ondansetron HCl (Zofran Inj) 4 mg IVP Q6 PRN PRN Reason: Nausea/Vomiting Prednisone (Prednisone Tab) 40 mg PO DAILY [facility] Saccharomyces Boulardii (Florastor) 250 mg PO BID [facility] Last Admin: 12/20/17 09:06 Dose: 250 mg Simethicone (Mylicon Chew Tab) 80 mg PO [facility] PRN PRN Reason: Flatulence Last Admin: 12/18/17 08:47 Dose: 80 mg Triamcinolone Acetonide (Kenalog 0.1% Oint) 1 appl TOP BID [facility] Last Admin: 12/20/17 09:07 Dose: 1 applic - Labs Labs: 12/20/17 04:50 12/20/17 04:50 PT 12.9 Seconds (9.8-13.1) 12/12/17 15:38 INR 1.2 (0.9-1.2) 12/12/17 15:38 APTT 28.2 Seconds (25.6-37.1) 12/12/17 15:38 - Constitutional Appears: Chronically Ill - Head Exam Head Exam: NORMAL INSPECTION - Eye Exam Eye Exam: PERRL - ENT Exam ENT Exam: Normal Exam - Neck Exam Neck Exam: Normal Inspection - Respiratory Exam Respiratory Exam: Decreased Breath Sounds, Rhonchi (B/L ) - Cardiovascular Exam Cardiovascular Exam: REGULAR RHYTHM - GI/Abdominal Exam GI & Abdominal Exam: Soft - Extremities Exam Additional comments: Edema L/E - Back Exam Back Exam: NORMAL INSPECTION - Neurological Exam Neurological Exam: Alert, Oriented x3 - Psychiatric Exam Psychiatric exam: Normal Mood - Skin Skin Exam: Warm Additional comments: Scaly dry plaques Arms and Legs Assessment and Plan (1) COPD exacerbation Status: Acute (2) History of pulmonary embolus (PE) Status: Chronic - Assessment and Plan (Free Text) Plan: Patient on Vanco , Christine , DuoNeb , DuoNeb , Mucomyst and rest of treatment
[2017-12-20] MEDS: guaiFENesin DM 200 mg-20 mg/10 ml UD PO PRN (18:28)
[2017-12-20] MEDS: Insulin Detemir 100 Units/ml Inj SC SCH ×2 (22:00→22:11)
[2017-12-21] MEDS: Albuterol-Ipratrop 3 mg / 0.5 (3 ml) UD INH SCH ×6 (04:58→23:22)
[2017-12-21 05:44] LABS: HEMOGLOBIN 11.3 g/dL (12.0-18.0); MEAN CELL VOLUME 82.3 fl (80.0-94.0); MEAN CORPUSCULAR HEMOGLOBIN 26.9 pg (27.0-31.0); MEAN CORPUSCULAR HGB CONC 32.7 g/dL (33.0-37.0); RBC 4.2 Mil/uL (4.40-5.90); RED CELL DISTRIBUTION WIDTH 15.4 % (11.5-14.5)
[2017-12-21] MEDS: Insulin Lispro (humaLOG) 100 Units/ml Inj SC SCH ×4 (07:00→21:56)
[2017-12-21] MEDS: Acetylcysteine 20% Inhal Soln (4ml) INH SCH ×2 (07:40→19:15)
--- NOTE | 2017-12-21 08:44 | CP.PCM.PN ---
Subjective - Date & Time of Evaluation Date of Evaluation: 12/21/17 Time of Evaluation: 07:20 - Subjective Subjective: Patient seen and examined this morning. Patient was c/o watery diarrhea last night, no bleeding, reports breathing difficulties, on and off 2L o2. Denies any chest pain, abdominal pain or urinary symptoms. Objective - Vital Signs/Intake and Output Vital Signs (last 24 hours): Temp Pulse Resp BP Pulse Ox 98.1 F 72 18 129/67 100 12/21/17 08:12 12/21/17 08:12 12/21/17 08:12 12/21/17 08:12 12/21/17 08:12 - Medications Medications: Current Medications Acetaminophen (Tylenol 325mg Tab) 650 mg PO Q6 PRN PRN Reason: Pain, Mild (1-3) Acetaminophen (Tylenol 325mg Tab) 650 mg PO Q6 PRN PRN Reason: Fever >100.4 F Acetylcysteine (Acetylcysteine 20%) 2 ml INH RBID [facility] Last Admin: 12/21/17 07:40 Dose: Not Given Albuterol/Ipratropium (Duoneb 3 Mg/0.5 Mg (3 Ml) Ud) 3 ml INH RQ4 [facility] Last Admin: 12/21/17 07:41 Dose: 3 ml Cholecalciferol (Vitamin D) 2,000 intlu PO DAILY [facility] Last Admin: 12/20/17 09:06 Dose: 2,000 intlu Dextrose (Dextrose 50% Inj) 0 ml IV STAT PRN; Protocol PRN Reason: Hypoglycemia Protocol Dextrose (Glutose 15) 0 gm PO ONCE PRN; Protocol PRN Reason: Hypoglycemia Protocol Glucagon (Glucagen Diagnostic Kit) 0 mg IM STAT PRN; Protocol PRN Reason: Hypoglycemia Protocol Guaifenesin/Dextromethorphan (Robitussin Dm) 10 ml PO Q6 PRN PRN Reason: Cough Last Admin: 12/20/17 18:28 Dose: 10 ml Vancomycin HCl 750 mg/ Sodium (Chloride) 250 mls @ 166.667 mls/hr IVPB Q12 [facility] PRN Reason: Protocol Last Admin: 12/20/17 22:02 Dose: 166.667 mls/hr Meropenem 1 gm/ Sodium (Chloride) 100 mls @ 100 mls/hr IVPB Q12 [facility] PRN Reason: Protocol Last Admin: 12/20/17 21:58 Dose: 100 mls/hr Insulin Detemir (Levemir) 8 units SC HS [facility] Last Admin: 12/20/17 22:11 Dose: 8 u Insulin Human Lispro (Humalog) 0 units SC ACHS [facility] PRN Reason: Protocol Last Admin: 12/21/17 07:00 Dose: 2 units Lactic Acid (Lac-Hydrin 12% Lotion (225 G)) 1 applic TOP TID [facility] Last Admin: 12/20/17 18:26 Dose: 1 applic Ondansetron HCl (Zofran Inj) 4 mg IVP Q6 PRN PRN Reason: Nausea/Vomiting Prednisone (Prednisone Tab) 40 mg PO DAILY [facility] Saccharomyces Boulardii (Florastor) 250 mg PO BID [facility] Last Admin: 12/20/17 18:27 Dose: 250 mg Simethicone (Mylicon Chew Tab) 80 mg PO [facility] PRN PRN Reason: Flatulence Last Admin: 12/18/17 08:47 Dose: 80 mg Triamcinolone Acetonide (Kenalog 0.1% Oint) 1 appl TOP BID [facility] Last Admin: 12/20/17 18:25 Dose: 1 applic - Labs Labs: 12/21/17 04:20 12/20/17 04:50 PT 12.9 Seconds (9.8-13.1) 12/12/17 15:38 INR 1.2 (0.9-1.2) 12/12/17 15:38 APTT 28.2 Seconds (25.6-37.1) 12/12/17 15:38 - Constitutional Appears: No Acute Distress - Head Exam Head Exam: NORMAL INSPECTION - Eye Exam Eye Exam: Normal appearance - Respiratory Exam Respiratory Exam: Decreased Breath Sounds, Wheezes. absent: Chest Wall Tenderness - Cardiovascular Exam Cardiovascular Exam: REGULAR RHYTHM - GI/Abdominal Exam GI & Abdominal Exam: Soft, Normal Bowel Sounds - Extremities Exam Additional comments: Psoriatic skin changes - Neurological Exam Neurological Exam: Alert, Awake, Oriented x3 - Psychiatric Exam Psychiatric exam: Normal Affect Assessment and Plan - Assessment and Plan (Free Text) Assessment: A/P: 67 y/o old male with PMHx of COPD, DMII, HTN, PE with IVC filter admitted for coag neg staph bacteremia and severe COPD exacerbation Coag neg staph bacteremia -Afebrile -Pt with a previous Hx of ESBL and MRSA infections. -Blood Cx on 12/12/17: Coag neg Staph -Leukocytosis likely secondary to solumedrol -ID consult, Dr Alonso appreciated. -ECHO:There is an echogenic body attached to the aortic valve that was seen on the 05/03/18 study. -Echo on 12/14: No endocarditis -Continue with Vancomycin 750 mg IVP q12 (day 8, started on 12/14) -S/p Zosyn 3.375 gm IVPB q8 (6day , started on 12/14, d/c on 12/19) -Started on Meropenem 1g Q12 hours, day 2 (started on 12/19 evening) -Vanco trough level: 8.4 on 12/16 -Vanc trough level: 9.4 on 12/20 -As per Cardio, no DAVID at this point, endocarditis unlikely -Bcx 12/14, 12/15 and 12/16: No growth COPD exacerbation -Saturating above 98% on 2L NC -B/l Wheezing, hx of asthma -Solumedrol taper IV, Duoneb Q4H, O2 by nasal canula at 2 L/min -CXR on 12/12/17 - No active disease -Chest CT 12/15/17- No active disease -Pt with a previous Hx of ESBL and MRSA infections -Line Fixer Dr Pugh on board -Sputum Cx: E. coli sensitive to zosyn -IV Solumedrol changed to Prednosone 40mg PO (12/21/17) Water diarrhea -C/w florastor 250mg BID -F/u Stool C-diff DM 2 - at goal -Last Hgb a1c 5.9 on 10/20/17 -Accucheck -C/w Levemir 8, will adjust the dose with Steroid tapering -SSI, hypoglycemia protocol Essential HTN -Stable for now -Monitor BP History of Pulmonary Embolism -IVC filter in place -2 years ago Psoriasis -c/w triamcinolone 0.1 % BID -c/w ammonium lactate 12 % TOP TID Dysuria -Improved -UA neg 12/16 -Urine c&s, negative, final DVT Prophylaxis -Lovenox 40 mg sc daily Code status -Full code
[2017-12-21] MEDS: Saccharomyces Boulardi 250 mg Cap PO SCH ×2 (09:52→16:21)
[2017-12-21] MEDS: Meropenem 1 GM in Sodium Chloride 0.9% 100 ML IVPB SCH ×2 (09:52→21:59)
[2017-12-21] MEDS: Cholecalciferol 1,000 INTLU TAB PO SCH (09:55)
--- NOTE | 2017-12-21 14:31 | CP.PCM.PN ---
Subjective - Date & Time of Evaluation Date of Evaluation: 12/21/17 Time of Evaluation: 12:00 - Subjective Subjective: F/U COPD Exacerbation. no SOB , no DOLAN off O2 today , cough with scanty yellowish sputum , diarrhea last night Objective - Vital Signs/Intake and Output Vital Signs (last 24 hours): Temp Pulse Resp BP Pulse Ox 98.0 F 68 20 137/70 98 12/21/17 12:00 12/21/17 12:00 12/21/17 12:00 12/21/17 12:00 12/21/17 12:00 - Medications Medications: Current Medications Acetaminophen (Tylenol 325mg Tab) 650 mg PO Q6 PRN PRN Reason: Pain, Mild (1-3) Acetaminophen (Tylenol 325mg Tab) 650 mg PO Q6 PRN PRN Reason: Fever >100.4 F Acetylcysteine (Acetylcysteine 20%) 2 ml INH RBID [facility] Last Admin: 12/21/17 07:40 Dose: Not Given Albuterol/Ipratropium (Duoneb 3 Mg/0.5 Mg (3 Ml) Ud) 3 ml INH RQ4 [facility] Last Admin: 12/21/17 11:21 Dose: 3 ml Cholecalciferol (Vitamin D) 2,000 intlu PO DAILY [facility] Last Admin: 12/21/17 09:55 Dose: 2,000 intlu Dextrose (Dextrose 50% Inj) 0 ml IV STAT PRN; Protocol PRN Reason: Hypoglycemia Protocol Dextrose (Glutose 15) 0 gm PO ONCE PRN; Protocol PRN Reason: Hypoglycemia Protocol Glucagon (Glucagen Diagnostic Kit) 0 mg IM STAT PRN; Protocol PRN Reason: Hypoglycemia Protocol Guaifenesin/Dextromethorphan (Robitussin Dm) 10 ml PO Q6 PRN PRN Reason: Cough Last Admin: 12/20/17 18:28 Dose: 10 ml Vancomycin HCl 750 mg/ Sodium (Chloride) 250 mls @ 166.667 mls/hr IVPB Q12 [facility] PRN Reason: Protocol Last Admin: 12/21/17 09:54 Dose: 166.667 mls/hr Meropenem 1 gm/ Sodium (Chloride) 100 mls @ 100 mls/hr IVPB Q12 [facility] PRN Reason: Protocol Last Admin: 12/21/17 09:52 Dose: 100 mls/hr Insulin Detemir (Levemir) 8 units SC HS [facility] Last Admin: 12/20/17 22:11 Dose: 8 u Insulin Human Lispro (Humalog) 0 units SC ACHS [facility] PRN Reason: Protocol Last Admin: 12/21/17 12:32 Dose: Not Given Lactic Acid (Lac-Hydrin 12% Lotion (225 G)) 1 applic TOP TID [facility] Last Admin: 12/21/17 12:33 Dose: 1 applic Ondansetron HCl (Zofran Inj) 4 mg IVP Q6 PRN PRN Reason: Nausea/Vomiting Prednisone (Prednisone Tab) 40 mg PO DAILY [facility] Last Admin: 12/21/17 09:53 Dose: 40 mg Saccharomyces Boulardii (Florastor) 250 mg PO BID [facility] Last Admin: 12/21/17 09:52 Dose: 250 mg Simethicone (Mylicon Chew Tab) 80 mg PO [facility] PRN PRN Reason: Flatulence Last Admin: 12/18/17 08:47 Dose: 80 mg Triamcinolone Acetonide (Kenalog 0.1% Oint) 1 appl TOP BID [facility] Last Admin: 12/21/17 09:10 Dose: 1 applic - Labs Labs: 12/21/17 04:20 12/20/17 04:50 PT 12.9 Seconds (9.8-13.1) 12/12/17 15:38 INR 1.2 (0.9-1.2) 12/12/17 15:38 APTT 28.2 Seconds (25.6-37.1) 12/12/17 15:38 - Constitutional Appears: Chronically Ill - Head Exam Head Exam: NORMAL INSPECTION - Eye Exam Eye Exam: PERRL - ENT Exam ENT Exam: Normal Exam - Neck Exam Neck Exam: Normal Inspection - Respiratory Exam Respiratory Exam: Decreased Breath Sounds, Rhonchi (b/l) - Cardiovascular Exam Cardiovascular Exam: REGULAR RHYTHM - GI/Abdominal Exam GI & Abdominal Exam: Soft, Normal Bowel Sounds - Extremities Exam Additional comments: Edema L/E - Back Exam Back Exam: NORMAL INSPECTION - Neurological Exam Neurological Exam: Alert, Oriented x3 - Psychiatric Exam Psychiatric exam: Normal Mood - Skin Skin Exam: Warm Additional comments: Scaly dry plaques arms and legs. Assessment and Plan (1) COPD exacerbation Status: Acute (2) History of pulmonary embolus (PE) Status: Chronic - Assessment and Plan (Free Text) Plan: continue Duoneb , Mucomyst , on Merren , Vanco , sputum E Coli, bacteriemia Staph coag neg
[2017-12-21] MEDS: Insulin Detemir 100 Units/ml Inj SC SCH (21:58)
[2017-12-22] MEDS: Albuterol-Ipratrop 3 mg / 0.5 (3 ml) UD INH SCH ×6 (04:57→23:36)
[2017-12-22 06:30] LABS: BASO % 0.2 % (0.0-2.0); EOS # 0.1 K/uL (0.0-0.7); EOS % 0.8 % (0.0-4.0); HEMOGLOBIN 11.5 g/dL (12.0-18.0); LYMPH # 4.3 K/uL (1.0-4.3); MEAN CELL VOLUME 81.5 fl (80.0-94.0); MEAN CORPUSCULAR HGB CONC 33.2 g/dL (33.0-37.0); MEAN PLATELET VOLUME 8.7 fl (7.2-11.7); MONO # 1.7 K/uL (0.0-0.8); NEUT # 6.9 K/uL (1.8-7.0); NRBC % 0.2 % (0.0-0.0); RBC 4.26 Mil/uL (4.40-5.90); RED CELL DISTRIBUTION WIDTH 15.3 % (11.5-14.5); WHITE BLOOD COUNT 13.1 K/uL (4.8-10.8)
[2017-12-22 07:29] LABS: ALBUMIN 2.9 g/dL (3.5-5.0); ALT/SGPT 21 U/L (21-72); AST/SGOT 46 U/L (17-59); BLOOD UREA NITROGEN 32 mg/dl (9-20); CALCIUM 8.3 mg/dL (8.4-10.2); GFR AFRICAN-AMERICAN > 60; GFR NON-AFRICAN AMERICAN > 60
[2017-12-22] MEDS: Acetylcysteine 20% Inhal Soln (4ml) INH SCH ×2 (08:05→19:11)
--- NOTE | 2017-12-22 10:25 | RAD ---
HISTORY: COPD, fever COMPARISON: 10/19/2007 chest x-ray and CT angio PE study 11/22/2016 TECHNIQUE: Chest PA and lateral FINDINGS: LUNGS: Bandlike discoid atelectasis and/or fibrosis left inferolateral lung new since October 2017 the infrahilar bronchovascular markings and/or peribronchial thickening appearance is slightly increased at each medial lung base. No more extensive consolidation appreciated PLEURA: No significant pleural effusion identified. No pneumothorax apparent. CARDIOVASCULAR: Top-normal heart size. The relative prominence to the right hilum is attributed to prominent right pulmonary artery per angio contrast enhanced study correlate OSSEOUS STRUCTURES: No significant abnormalities. VISUALIZED UPPER ABDOMEN: Normal. OTHER FINDINGS: None. IMPRESSION: Interval discoid atelectasis and/or fibrosis both lung bases left greater than right. Interval increased infrahilar bronchovascular markings/peribronchial thickening -can be seen with bronchitis and/or peribronchial nonspecific inflammatory changes. Currently, no more significant dense consolidation appreciated Prominent right pulmonary artery as referenced above
[2017-12-22] MEDS: Insulin Lispro (humaLOG) 100 Units/ml Inj SC SCH ×4 (10:26→21:39)
[2017-12-22] MEDS: Meropenem 1 GM in Sodium Chloride 0.9% 100 ML IVPB SCH (10:31)
[2017-12-22] MEDS: Cholecalciferol 1,000 INTLU TAB PO SCH (10:32)
[2017-12-22] MEDS: Saccharomyces Boulardi 250 mg Cap PO SCH ×2 (10:32→16:41)
--- NOTE | 2017-12-22 10:43 | CP.PCM.PN ---
Subjective - Date & Time of Evaluation Date of Evaluation: 12/22/17 Time of Evaluation: 07:50 - Subjective Subjective: Patient was seen and examined this morning at bedside. NAD, patient reports one watery BM last night, and Fever of 103 at midnight but denies any N/V, abdominal pain, or urianry symptoms. Tolerating PO intake. Objective - Vital Signs/Intake and Output Vital Signs (last 24 hours): Temp Pulse Resp BP Pulse Ox 98.4 F 67 20 144/77 100 12/22/17 07:59 12/22/17 07:59 12/22/17 07:59 12/22/17 07:59 12/22/17 07:59 - Medications Medications: Current Medications Acetaminophen (Tylenol 325mg Tab) 650 mg PO Q6 PRN PRN Reason: Pain, Mild (1-3) Last Admin: 12/22/17 00:19 Dose: 650 mg Acetaminophen (Tylenol 325mg Tab) 650 mg PO Q6 PRN PRN Reason: Fever >100.4 F Acetylcysteine (Acetylcysteine 20%) 2 ml INH RBID [facility] Last Admin: 12/22/17 08:05 Dose: Not Given Albuterol/Ipratropium (Duoneb 3 Mg/0.5 Mg (3 Ml) Ud) 3 ml INH RQ4 [facility] Last Admin: 12/22/17 08:04 Dose: 3 ml Cholecalciferol (Vitamin D) 2,000 intlu PO DAILY [facility] Last Admin: 12/22/17 10:32 Dose: 2,000 intlu Dextrose (Dextrose 50% Inj) 0 ml IV STAT PRN; Protocol PRN Reason: Hypoglycemia Protocol Dextrose (Glutose 15) 0 gm PO ONCE PRN; Protocol PRN Reason: Hypoglycemia Protocol Glucagon (Glucagen Diagnostic Kit) 0 mg IM STAT PRN; Protocol PRN Reason: Hypoglycemia Protocol Guaifenesin/Dextromethorphan (Robitussin Dm) 10 ml PO Q6 PRN PRN Reason: Cough Last Admin: 12/20/17 18:28 Dose: 10 ml Vancomycin HCl 750 mg/ Sodium (Chloride) 250 mls @ 166.667 mls/hr IVPB Q12 [facility] PRN Reason: Protocol Last Admin: 12/21/17 22:02 Dose: 166.667 mls/hr Meropenem 1 gm/ Sodium (Chloride) 100 mls @ 100 mls/hr IVPB Q12 [facility] PRN Reason: Protocol Last Admin: 12/22/17 10:31 Dose: 100 mls/hr Insulin Detemir (Levemir) 8 units SC HS [facility] Last Admin: 12/21/17 21:58 Dose: 8 unit Insulin Human Lispro (Humalog) 0 units SC ACHS [facility] PRN Reason: Protocol Last Admin: 12/22/17 10:26 Dose: Not Given Lactic Acid (Lac-Hydrin 12% Lotion (225 G)) 1 applic TOP TID [facility] Last Admin: 12/22/17 10:30 Dose: 1 applic Ondansetron HCl (Zofran Inj) 4 mg IVP Q6 PRN PRN Reason: Nausea/Vomiting Prednisone (Prednisone Tab) 20 mg PO DAILY [facility] Saccharomyces Boulardii (Florastor) 250 mg PO BID [facility] Last Admin: 12/22/17 10:32 Dose: 250 mg Simethicone (Mylicon Chew Tab) 80 mg PO [facility] PRN PRN Reason: Flatulence Last Admin: 12/18/17 08:47 Dose: 80 mg Triamcinolone Acetonide (Kenalog 0.1% Oint) 1 appl TOP BID [facility] Last Admin: 12/22/17 10:31 Dose: 1 applic - Labs Labs: 12/22/17 05:25 12/22/17 05:25 PT 12.9 Seconds (9.8-13.1) 12/12/17 15:38 INR 1.2 (0.9-1.2) 12/12/17 15:38 APTT 28.2 Seconds (25.6-37.1) 12/12/17 15:38 - Constitutional Appears: No Acute Distress - Head Exam Head Exam: ATRAUMATIC, NORMAL INSPECTION, NORMOCEPHALIC - Eye Exam Eye Exam: EOMI, Normal appearance Pupil Exam: NORMAL ACCOMODATION - ENT Exam ENT Exam: Mucous Membranes Moist - Neck Exam Neck Exam: Full ROM - Respiratory Exam Respiratory Exam: Decreased Breath Sounds, Wheezes - Cardiovascular Exam Cardiovascular Exam: REGULAR RHYTHM - GI/Abdominal Exam GI & Abdominal Exam: Soft, Normal Bowel Sounds - Extremities Exam Additional comments: Psoriatic skin changes - Back Exam Back Exam: absent: CVA tenderness (L), CVA tenderness (R) - Neurological Exam Neurological Exam: Alert, Awake, Oriented x3 - Psychiatric Exam Psychiatric exam: Normal Affect, Normal Mood - Skin Additional comments: Psoriatic skin changes Assessment and Plan - Assessment and Plan (Free Text) Assessment: A/P: 67 y/o old male with PMHx of COPD, DMII, HTN, PE with IVC filter admitted for coag neg staph bacteremia and severe COPD exacerbation Coag neg staph bacteremia -Afebrile -Pt with a previous Hx of ESBL and MRSA infections. -Blood Cx on 12/12/17: Coag neg Staph -Leukocytosis likely secondary to solumedrol -ID consult, Dr Alonso appreciated. -ECHO:There is an echogenic body attached to the aortic valve that was seen on the 05/03/18 study. -Echo on 12/14: No endocarditis -Continue with Vancomycin 750 mg IVP q12 (day 9, started on 12/14) -S/p Zosyn 3.375 gm IVPB q8 (6day , started on 12/14, d/c on 12/19) -Continue Meropenem 1g Q12 hours, day 3 (started on 12/19 evening) -Vanco trough level: 8.4 on 12/16 -Vanc trough level: 9.4 on 12/20 -Vanc trough level: 8.7 on 12/21 -As per Cardio, no DAVID at this point, endocarditis unlikely -Bcx 12/14, 12/15 and 12/16: No growth -Will follow ID recommendations for Antibiotics COPD exacerbation -Saturating above 98% on 2L NC -B/l Wheezing, hx of asthma -Solumedrol taper IV, Duoneb Q4H, O2 by nasal canula at 2 L/min -CXR on 12/12/17 - No active disease -Chest CT 12/15/17- No active disease -Pt with a previous Hx of ESBL and MRSA infections -Hair Designer Dr Pugh on board -Sputum Cx: E. coli sensitive to zosyn -IV Solumedrol changed to Prednosone 40mg PO (12/21/17) -Consider Tapering Prednosone 20mg PO today Fever unknown etiology - 103 fever midnight 12/22/17 - Follow up UA, Ucx and Bcx - CXR f/u - ID notified, will follow recommendations Water diarrhea -C/w florastor 250mg BID -F/u Stool C-diff -F/u ID recommendations DM 2 - at goal -Last Hgb a1c 5.9 on 10/20/17 -Accucheck -C/w Levemir 8, will adjust the dose with Steroid tapering -SSI, hypoglycemia protocol Essential HTN -Stable for now -Monitor BP History of Pulmonary Embolism -IVC filter in place -2 years ago Psoriasis -c/w triamcinolone 0.1 % BID -c/w ammonium lactate 12 % TOP TID Dysuria -Improved -UA neg 12/16 -Urine c&s, negative, final DVT Prophylaxis -Lovenox 40 mg sc daily Code status -Full code
--- NOTE | 2017-12-22 16:04 | CP.PCM.PN ---
Subjective - Date & Time of Evaluation Date of Evaluation: 12/22/17 Time of Evaluation: 11:20 - Subjective Subjective: F/U COPD Exacerbation. Pt is not using O2 at rest, but with SOB while [place] today [place] oxygen Objective - Vital Signs/Intake and Output Vital Signs (last 24 hours): Temp Pulse Resp BP Pulse Ox 98.1 F 90 20 107/60 100 12/22/17 15:44 12/22/17 15:44 12/22/17 15:44 12/22/17 15:44 12/22/17 15:44 - Medications Medications: Current Medications Acetaminophen (Tylenol 325mg Tab) 650 mg PO Q6 PRN PRN Reason: Pain, Mild (1-3) Last Admin: 12/22/17 00:19 Dose: 650 mg Acetaminophen (Tylenol 325mg Tab) 650 mg PO Q6 PRN PRN Reason: Fever >100.4 F Acetylcysteine (Acetylcysteine 20%) 2 ml INH RBID [facility] Last Admin: 12/22/17 08:05 Dose: Not Given Albuterol/Ipratropium (Duoneb 3 Mg/0.5 Mg (3 Ml) Ud) 3 ml INH RQ4 [facility] Last Admin: 12/22/17 15:30 Dose: 3 ml Cholecalciferol (Vitamin D) 2,000 intlu PO DAILY [facility] Last Admin: 12/22/17 10:32 Dose: 2,000 intlu Dextrose (Dextrose 50% Inj) 0 ml IV STAT PRN; Protocol PRN Reason: Hypoglycemia Protocol Dextrose (Glutose 15) 0 gm PO ONCE PRN; Protocol PRN Reason: Hypoglycemia Protocol Glucagon (Glucagen Diagnostic Kit) 0 mg IM STAT PRN; Protocol PRN Reason: Hypoglycemia Protocol Guaifenesin/Dextromethorphan (Robitussin Dm) 10 ml PO Q6 PRN PRN Reason: Cough Last Admin: 12/20/17 18:28 Dose: 10 ml Vancomycin HCl 750 mg/ Sodium (Chloride) 250 mls @ 166.667 mls/hr IVPB Q12 [facility] PRN Reason: Protocol Last Admin: 12/22/17 10:41 Dose: 166.667 mls/hr Insulin Detemir (Levemir) 8 units SC HS [facility] Last Admin: 12/21/17 21:58 Dose: 8 unit Insulin Human Lispro (Humalog) 0 units SC ACHS [facility] PRN Reason: Protocol Last Admin: 12/22/17 11:45 Dose: Not Given Lactic Acid (Lac-Hydrin 12% Lotion (225 G)) 1 applic TOP TID [facility] Last Admin: 12/22/17 10:30 Dose: 1 applic Ondansetron HCl (Zofran Inj) 4 mg IVP Q6 PRN PRN Reason: Nausea/Vomiting Prednisone (Prednisone Tab) 20 mg PO DAILY [facility] Saccharomyces Boulardii (Florastor) 250 mg PO BID [facility] Last Admin: 12/22/17 10:32 Dose: 250 mg Simethicone (Mylicon Chew Tab) 80 mg PO [facility] PRN PRN Reason: Flatulence Last Admin: 12/18/17 08:47 Dose: 80 mg Triamcinolone Acetonide (Kenalog 0.1% Oint) 1 appl TOP BID [facility] Last Admin: 12/22/17 10:31 Dose: 1 applic - Labs Labs: 12/22/17 05:25 12/22/17 05:25 PT 12.9 Seconds (9.8-13.1) 12/12/17 15:38 INR 1.2 (0.9-1.2) 12/12/17 15:38 APTT 28.2 Seconds (25.6-37.1) 12/12/17 15:38 - Constitutional Appears: No Acute Distress, Chronically Ill - Head Exam Head Exam: NORMAL INSPECTION - Eye Exam Eye Exam: PERRL - ENT Exam ENT Exam: Normal Exam - Neck Exam Neck Exam: Normal Inspection - Respiratory Exam Respiratory Exam: Decreased Breath Sounds, Rhonchi (b/l) - Cardiovascular Exam Cardiovascular Exam: REGULAR RHYTHM - GI/Abdominal Exam GI & Abdominal Exam: Soft, Normal Bowel Sounds - Extremities Exam Additional comments: Edema L/E - Back Exam Back Exam: NORMAL INSPECTION - Neurological Exam Neurological Exam: Alert, Oriented x3 - Psychiatric Exam Psychiatric exam: Normal Mood - Skin Skin Exam: Warm Assessment and Plan (1) COPD exacerbation Status: Acute (2) History of pulmonary embolus (PE) Status: Chronic - Assessment and Plan (Free Text) Plan: Continue Vanco and rest of Tx.
[2017-12-22] MEDS: Insulin Detemir 100 Units/ml Inj SC SCH (21:39)
[2017-12-22 22:45] LABS: URINE CLARITY CLEAR (Clear); URINE COLOR STRAW (YELLOW); URINE GLUCOSE (UA) NEG (Normal)
[2017-12-22 22:46] LABS: URINE BILIRUBIN NEGATIVE (NEGATIVE); URINE BLOOD NEGATIVE (NEGATIVE); URINE LEUKOCYTE ESTERASE NEG Leu/uL (Negative); URINE PROTEIN NEGATIVE (NEGATIVE); URINE UROBILINOGEN 0.2-1.0 mg/dL (0.2-1.0)
[2017-12-23] MEDS: Albuterol-Ipratrop 3 mg / 0.5 (3 ml) UD INH SCH ×6 (03:14→23:22)
[2017-12-23 06:39] LABS: HEMOGLOBIN 11.8 g/dL (12.0-18.0); MEAN CELL VOLUME 83.1 fl (80.0-94.0); MEAN CORPUSCULAR HEMOGLOBIN 26.4 pg (27.0-31.0); MEAN CORPUSCULAR HGB CONC 31.7 g/dL (33.0-37.0); RBC 4.46 Mil/uL (4.40-5.90); RED CELL DISTRIBUTION WIDTH 15.2 % (11.5-14.5); WHITE BLOOD COUNT 12.3 K/uL (4.8-10.8)
[2017-12-23] MEDS: Insulin Lispro (humaLOG) 100 Units/ml Inj SC SCH ×4 (06:39→21:55)
[2017-12-23 07:22] LABS: ALBUMIN 2.8 g/dL (3.5-5.0); ALT/SGPT 27 U/L (21-72); AST/SGOT 20 U/L (17-59); BLOOD UREA NITROGEN 27 mg/dl (9-20); CALCIUM 8.3 mg/dL (8.4-10.2); GFR AFRICAN-AMERICAN > 60; GFR NON-AFRICAN AMERICAN > 60
[2017-12-23] MEDS: Saccharomyces Boulardi 250 mg Cap PO SCH ×2 (08:15→17:49)
[2017-12-23] MEDS: Acetylcysteine 20% Inhal Soln (4ml) INH SCH ×2 (08:15→19:13)
[2017-12-23] MEDS: Cholecalciferol 1,000 INTLU TAB PO SCH (08:16)
--- NOTE | 2017-12-23 10:01 | CP.PCM.PN ---
Subjective - Date & Time of Evaluation Date of Evaluation: 12/23/17 Time of Evaluation: 07:00 - Subjective Subjective: Patient seen and examined this morning. NAD, patient reports whole night w/o oxygen use and able to walk in room with improved symptoms. Patient reports 2 loose BM last night (C-diff negative yesterday) denies any bleeding, n/v/f/c, chest pain, SOB, abdominal pain, urinary symptoms or weakness. Objective - Vital Signs/Intake and Output Vital Signs (last 24 hours): Temp Pulse Resp BP Pulse Ox 97.6 F 73 20 136/78 96 12/23/17 08:15 12/23/17 08:15 12/23/17 08:15 12/23/17 08:15 12/23/17 08:15 - Medications Medications: Current Medications Acetaminophen (Tylenol 325mg Tab) 650 mg PO Q6 PRN PRN Reason: Pain, Mild (1-3) Last Admin: 12/22/17 00:19 Dose: 650 mg Acetaminophen (Tylenol 325mg Tab) 650 mg PO Q6 PRN PRN Reason: Fever >100.4 F Acetylcysteine (Acetylcysteine 20%) 2 ml INH RBID [facility] Last Admin: 12/23/17 08:15 Dose: 2 ml Albuterol/Ipratropium (Duoneb 3 Mg/0.5 Mg (3 Ml) Ud) 3 ml INH RQ4 [facility] Last Admin: 12/23/17 08:15 Dose: 3 ml Cholecalciferol (Vitamin D) 2,000 intlu PO DAILY [facility] Last Admin: 12/23/17 08:16 Dose: 2,000 intlu Dextrose (Dextrose 50% Inj) 0 ml IV STAT PRN; Protocol PRN Reason: Hypoglycemia Protocol Dextrose (Glutose 15) 0 gm PO ONCE PRN; Protocol PRN Reason: Hypoglycemia Protocol Glucagon (Glucagen Diagnostic Kit) 0 mg IM STAT PRN; Protocol PRN Reason: Hypoglycemia Protocol Guaifenesin/Dextromethorphan (Robitussin Dm) 10 ml PO Q6 PRN PRN Reason: Cough Last Admin: 12/20/17 18:28 Dose: 10 ml Vancomycin HCl 750 mg/ Sodium (Chloride) 250 mls @ 166.667 mls/hr IVPB Q12 [facility] PRN Reason: Protocol Last Admin: 12/23/17 08:16 Dose: 166.667 mls/hr Insulin Detemir (Levemir) 8 units SC HS [facility] Last Admin: 12/22/17 21:39 Dose: Not Given Insulin Human Lispro (Humalog) 0 units SC [facility] PRN Reason: Protocol Last Admin: 12/23/17 06:39 Dose: Not Given Lactic Acid (Lac-Hydrin 12% Lotion (225 G)) 1 applic TOP TID [facility] Last Admin: 12/23/17 08:18 Dose: 1 applic Ondansetron HCl (Zofran Inj) 4 mg IVP Q6 PRN PRN Reason: Nausea/Vomiting Prednisone (Prednisone Tab) 20 mg PO DAILY [facility] Last Admin: 12/23/17 08:16 Dose: 20 mg Saccharomyces Boulardii (Florastor) 250 mg PO BID [facility] Last Admin: 12/23/17 08:15 Dose: 250 mg Simethicone (Mylicon Chew Tab) 80 mg PO [facility] PRN PRN Reason: Flatulence Last Admin: 12/18/17 08:47 Dose: 80 mg Triamcinolone Acetonide (Kenalog 0.1% Oint) 1 appl TOP BID [facility] Last Admin: 12/23/17 08:18 Dose: 1 applic - Labs Labs: 12/23/17 06:45 12/23/17 04:00 PT 12.9 Seconds (9.8-13.1) 12/12/17 15:38 INR 1.2 (0.9-1.2) 12/12/17 15:38 APTT 28.2 Seconds (25.6-37.1) 12/12/17 15:38 - Constitutional Appears: No Acute Distress - Head Exam Head Exam: NORMAL INSPECTION - Eye Exam Eye Exam: Normal appearance Pupil Exam: NORMAL ACCOMODATION - ENT Exam ENT Exam: Mucous Membranes Moist - Neck Exam Neck Exam: Normal Inspection - Respiratory Exam Respiratory Exam: Decreased Breath Sounds, Wheezes - Cardiovascular Exam Cardiovascular Exam: REGULAR RHYTHM - GI/Abdominal Exam GI & Abdominal Exam: Soft, Normal Bowel Sounds - Extremities Exam Additional comments: Psoriatic skin changes - Back Exam Back Exam: absent: CVA tenderness (L), CVA tenderness (R) - Neurological Exam Neurological Exam: Alert, Awake, Oriented x3 - Psychiatric Exam Psychiatric exam: Normal Affect, Normal Mood - Skin Additional comments: Psoriatic skin changes Assessment and Plan - Assessment and Plan (Free Text) Assessment: A/P: 67 y/o old male with PMHx of COPD, DMII, HTN, PE with IVC filter admitted for coag neg staph bacteremia and severe COPD exacerbation Coag neg staph bacteremia -Afebrile -Pt with a previous Hx of ESBL and MRSA infections. -Blood Cx on 12/12/17: Coag neg Staph -Leukocytosis likely secondary to solumedrol -ID consult, Dr Alonso appreciated. -ECHO:There is an echogenic body attached to the aortic valve that was seen on the 05/03/18 study. -Echo on 12/14: No endocarditis -Continue with Vancomycin 750 mg IVP q12 (day 10, started on 12/14) -S/p Zosyn 3.375 gm IVPB q8 (6day , started on 12/14, d/c on 12/19) -S/p Meropenem 1g Q12 hours, day 3 (started on 12/19 evening) -Vanco trough level: 8.4 on 12/16 -Vanc trough level: 9.4 on 12/20 -Vanc trough level: 8.7 on 12/21 -As per Cardio, no DAVID at this point, endocarditis unlikely -Bcx 12/14, 12/15 and 12/16: No growth -Will follow ID recommendations for Antibiotics (Possibly one more day IV vanco ) -Admit to Medsurg COPD exacerbation -Saturating above 98% on 2L NC -B/l Wheezing, hx of asthma -Solumedrol taper IV, Duoneb Q4H, O2 by nasal canula at 2 L/min -CXR on 12/12/17 - No active disease -Chest CT 12/15/17- No active disease -Pt with a previous Hx of ESBL and MRSA infections -Gallery Intern Dr Pugh on board -Sputum Cx: E. coli sensitive to zosyn -IV Solumedrol changed to Prednosone 40mg PO (12/21/17) -Prednosone 40mg changed to Prednosone 20mg PO today (12/23) Fever - 103 fever midnight 12/22/17 - Bcx 12/22 no growth - CXR 12/22 reviewed - ID aware, will follow recommendations Water diarrhea -C/w florastor 250mg BID -Stool C-diff negative (12/22) -F/u ID recommendations DM 2 - at goal -Last Hgb a1c 5.9 on 10/20/17 -Accucheck -C/w Levemir 8, will adjust the dose with Steroid tapering -SSI, hypoglycemia protocol Essential HTN -Stable for now -Monitor BP History of Pulmonary Embolism -IVC filter in place -2 years ago Psoriasis -c/w triamcinolone 0.1 % BID -c/w ammonium lactate 12 % TOP TID Dysuria -Improved -UA neg 12/16 -Urine c&s, negative, final DVT Prophylaxis -Lovenox 40 mg sc daily Code status -Full code
--- NOTE | 2017-12-23 14:26 | CP.PCM.PN ---
Subjective - Date & Time of Evaluation Date of Evaluation: 12/23/17 Time of Evaluation: 11:50 - Subjective Subjective: F/U COPD. Pt with no SOB, no DOLAN, mild DOLAN walking [place], not using O2. Objective - Vital Signs/Intake and Output Vital Signs (last 24 hours): Temp Pulse Resp BP Pulse Ox 98.2 F 73 18 125/74 98 12/23/17 12:21 12/23/17 12:21 12/23/17 12:21 12/23/17 12:21 12/23/17 12:21 - Medications Medications: Current Medications Acetaminophen (Tylenol 325mg Tab) 650 mg PO Q6 PRN PRN Reason: Pain, Mild (1-3) Last Admin: 12/22/17 00:19 Dose: 650 mg Acetaminophen (Tylenol 325mg Tab) 650 mg PO Q6 PRN PRN Reason: Fever >100.4 F Acetylcysteine (Acetylcysteine 20%) 2 ml INH RBID [facility] Last Admin: 12/23/17 08:15 Dose: 2 ml Albuterol/Ipratropium (Duoneb 3 Mg/0.5 Mg (3 Ml) Ud) 3 ml INH RQ4 [facility] Last Admin: 12/23/17 11:48 Dose: 3 ml Cholecalciferol (Vitamin D) 2,000 intlu PO DAILY [facility] Last Admin: 12/23/17 08:16 Dose: 2,000 intlu Dextrose (Dextrose 50% Inj) 0 ml IV STAT PRN; Protocol PRN Reason: Hypoglycemia Protocol Dextrose (Glutose 15) 0 gm PO ONCE PRN; Protocol PRN Reason: Hypoglycemia Protocol Glucagon (Glucagen Diagnostic Kit) 0 mg IM STAT PRN; Protocol PRN Reason: Hypoglycemia Protocol Guaifenesin/Dextromethorphan (Robitussin Dm) 10 ml PO Q6 PRN PRN Reason: Cough Last Admin: 12/20/17 18:28 Dose: 10 ml Vancomycin HCl 750 mg/ Sodium (Chloride) 250 mls @ 166.667 mls/hr IVPB Q12 [facility] PRN Reason: Protocol Last Admin: 12/23/17 08:16 Dose: 166.667 mls/hr Insulin Detemir (Levemir) 8 units SC HS [facility] Last Admin: 12/22/17 21:39 Dose: Not Given Insulin Human Lispro (Humalog) 0 units SC ACHS [facility] PRN Reason: Protocol Last Admin: 12/23/17 10:53 Dose: Not Given Lactic Acid (Lac-Hydrin 12% Lotion (225 G)) 1 applic TOP TID [facility] Last Admin: 12/23/17 12:14 Dose: Not Given Ondansetron HCl (Zofran Inj) 4 mg IVP Q6 PRN PRN Reason: Nausea/Vomiting Prednisone (Prednisone Tab) 20 mg PO DAILY [facility] Last Admin: 12/23/17 08:16 Dose: 20 mg Saccharomyces Boulardii (Florastor) 250 mg PO BID [facility] Last Admin: 12/23/17 08:15 Dose: 250 mg Simethicone (Mylicon Chew Tab) 80 mg PO [facility] PRN PRN Reason: Flatulence Last Admin: 12/18/17 08:47 Dose: 80 mg Triamcinolone Acetonide (Kenalog 0.1% Oint) 1 appl TOP BID [facility] Last Admin: 12/23/17 08:18 Dose: 1 applic - Labs Labs: 12/23/17 06:45 12/23/17 04:00 PT 12.9 Seconds (9.8-13.1) 12/12/17 15:38 INR 1.2 (0.9-1.2) 12/12/17 15:38 APTT 28.2 Seconds (25.6-37.1) 12/12/17 15:38 - Constitutional Appears: Chronically Ill - Head Exam Head Exam: NORMAL INSPECTION - Eye Exam Eye Exam: PERRL - ENT Exam ENT Exam: Normal Exam - Neck Exam Neck Exam: Normal Inspection - Respiratory Exam Respiratory Exam: Decreased Breath Sounds (at bases), Rhonchi (b/l) - Cardiovascular Exam Cardiovascular Exam: REGULAR RHYTHM - GI/Abdominal Exam GI & Abdominal Exam: Soft, Normal Bowel Sounds - Extremities Exam Additional comments: Edema L/E - Back Exam Back Exam: NORMAL INSPECTION - Neurological Exam Neurological Exam: Alert, Oriented x3 - Psychiatric Exam Psychiatric exam: Normal Mood - Skin Skin Exam: Warm Additional comments: Scaly dry plaques arms and legs Assessment and Plan (1) COPD exacerbation Status: Acute (2) History of pulmonary embolus (PE) Status: Chronic - Assessment and Plan (Free Text) Plan: Continue Vanco, Duoneb and rest of Tx.
[2017-12-23] MEDS: Enoxaparin 40 mg Syringe SC SCH (17:48)
[2017-12-23] MEDS: Insulin Detemir 100 Units/ml Inj SC SCH (21:11)
[2017-12-24] MEDS: Albuterol-Ipratrop 3 mg / 0.5 (3 ml) UD INH SCH ×4 (05:01→15:18)
[2017-12-24 06:23] LABS: HEMOGLOBIN 11.8 g/dL (12.0-18.0); MEAN CELL VOLUME 82.1 fl (80.0-94.0); MEAN CORPUSCULAR HEMOGLOBIN 26.9 pg (27.0-31.0); MEAN CORPUSCULAR HGB CONC 32.8 g/dL (33.0-37.0); RBC 4.36 Mil/uL (4.40-5.90); WHITE BLOOD COUNT 13.4 K/uL (4.8-10.8)
[2017-12-24 06:36] LABS: ALB/GLOB RATIO 1.1 (1.0-2.1); ALT/SGPT 26 U/L (21-72); AST/SGOT 20 U/L (17-59); BLOOD UREA NITROGEN 30 mg/dl (9-20); CALCIUM 8.4 mg/dL (8.4-10.2); GFR AFRICAN-AMERICAN > 60; GFR NON-AFRICAN AMERICAN > 60
[2017-12-24] MEDS: Insulin Lispro (humaLOG) 100 Units/ml Inj SC SCH ×2 (06:39→11:56)
[2017-12-24] MEDS: Acetylcysteine 20% Inhal Soln (4ml) INH SCH (07:43)
[2017-12-24] MEDS ORDERED: Enoxaparin 40 mg Syringe SC SCH (09:00)
[2017-12-24] MEDS: Enoxaparin 40 mg Syringe SC SCH (09:56)
[2017-12-24] MEDS: Saccharomyces Boulardi 250 mg Cap PO SCH (09:56)
[2017-12-24] MEDS: Cholecalciferol 1,000 INTLU TAB PO SCH (09:56)
--- NOTE | 2017-12-24 12:39 | CP.PCM.DIS ---
<Kaila Ramires - Last Filed: 12/24/17 18:27> Provider - Provider Date of Admission: 12/12/17 19:19 Attending physician: Tennille Tavares MD Primary care physician: None Consults: Cardio, Dr.Saleh RM, Dr. Celeste Rodríguez, Dr. Pugh Time Spent in preparation of Discharge (in minutes): 40 Diagnosis - Discharge Diagnosis (1) Acute exacerbation of chronic obstructive pulmonary disease Status: Acute (2) Bacteremia due to coagulase-negative Staphylococcus Status: Acute (3) Diabetes Status: Chronic (4) Diarrhea Status: Resolved (5) Dysuria Status: Resolved (6) Hx pulmonary embolism Status: Resolved Priority: High Hospital Course - Lab Results Lab Results: Micro Results 12/22/17 08:41 Blood-Venous Blood Culture - Preliminary NO GROWTH AFTER 48 HOURS 12/22/17 08:31 Blood-Venous Blood Culture - Preliminary NO GROWTH AFTER 48 HOURS 12/22/17 22:29 Urine,Clean Catch Urine Culture - Final No Growth (<1,000 CFU/ML) 12/16/17 19:25 Blood Blood Culture - Final NO GROWTH AFTER 5 DAYS 12/16/17 19:25 Blood Gram Stain - Final TEST NOT PERFORMED 12/15/17 09:00 Blood Blood Culture - Final NO GROWTH AFTER 5 DAYS 12/14/17 08:20 Blood Blood Culture - Final NO GROWTH AFTER 5 DAYS 12/14/17 08:20 Blood Gram Stain - Final TEST NOT PERFORMED 12/13/17 13:39 Blood Blood Culture - Final NO GROWTH AFTER 5 DAYS 12/13/17 13:39 Blood Gram Stain - Final TEST NOT PERFORMED 12/16/17 15:47 Urine,Clean Catch Urine Culture - Final No Growth (<1,000 CFU/ML) 12/13/17 18:54 Sputum Gram Stain - Final 12/13/17 18:54 Sputum Sputum Culture - Final Escherichia Coli 12/12/17 15:38 Blood-Venous Blood Culture - Final Coagulase Neg Staphylococcus 12/12/17 15:38 Blood-Venous Gram Stain - Final 12/12/17 15:38 Blood-Venous S.aureus & Coag-Neg Staph PNA FISH - Final 12/12/17 15:38 Blood-Venous Blood Culture - Final Coagulase Neg Staphylococcus 12/12/17 15:38 Blood-Venous Gram Stain - Final Most Recent Lab Values WBC 13.4 K/uL (4.8-10.8) H 12/24/17 05:50 RBC 4.36 Mil/uL (4.40-5.90) L 12/24/17 05:50 Hgb 11.8 g/dL (12.0-18.0) L 12/24/17 05:50 Hct 35.8 % (35.0-51.0) 12/24/17 05:50 MCV 82.1 fl (80.0-94.0) 12/24/17 05:50 MCH 26.9 pg (27.0-31.0) L 12/24/17 05:50 MCHC 32.8 g/dL (33.0-37.0) L 12/24/17 05:50 RDW 15.0 % (11.5-14.5) H 12/24/17 05:50 Plt Count 222 K/uL (130-400) 12/24/17 05:50 MPV 8.7 fl (7.2-11.7) 12/22/17 05:25 Neut % (Auto) 53.0 % (50.0-75.0) 12/22/17 05:25 Lymph % (Auto) 33.0 % (20.0-40.0) 12/22/17 05:25 [place] % (Auto) 13.0 % (0.0-10.0) H 12/22/17 05:25 Eos % (Auto) 0.8 % (0.0-4.0) 12/22/17 05:25 Baso % (Auto) 0.2 % (0.0-2.0) 12/22/17 05:25 Neut # (Auto) 6.9 K/uL (1.8-7.0) 12/22/17 05:25 Lymph # (Auto) 4.3 K/uL (1.0-4.3) 12/22/17 05:25 [place] # (Auto) 1.7 K/uL (0.0-0.8) H 12/22/17 05:25 Eos # (Auto) 0.1 K/uL (0.0-0.7) 12/22/17 05:25 Baso # (Auto) 0.0 K/uL (0.0-0.2) 12/22/17 05:25 ESR 14 mm/hr (0-20) 12/16/17 06:00 PT 12.9 Seconds (9.8-13.1) 12/12/17 15:38 INR 1.2 (0.9-1.2) 12/12/17 15:38 APTT 28.2 Seconds (25.6-37.1) 12/12/17 15:38 pCO2 36 mm/Hg (35-45) 12/12/17 22:00 pO2 86 mm/Hg (80-100) 12/12/17 22:00 HCO3 22.8 mmol/L (21-28) 12/12/17 22:00 ABG pH 7.39 (7.35-7.45) 12/12/17 22:00 ABG Total CO2 22.9 mmol/L (22-28) 12/12/17 22:00 ABG O2 Saturation 98.4 % (95-98) H 12/12/17 22:00 ABG O2 Content 17.8 ML/dL (15-23) 12/12/17 22:00 ABG Base Excess -2.7 mmol/L (-2.0-3.0) L 12/12/17 22:00 ABG Hemoglobin 13.3 g/dL (11.7-17.4) 12/12/17 22:00 ABG Carboxyhemoglobin 2.4 % (0.5-1.5) H 12/12/17 22:00 POC ABG HHb (Measured) 1.5 % (0.0-5.0) 12/12/17 22:00 ABG Methemoglobin 1.2 % (0.0-3.0) 12/12/17 22:00 ABG O2 Capacity 18.1 mL/dL (16-24) 12/12/17 22:00 Slim Test Yes 12/12/17 22:00 A-a O2 Difference 19.0 mm/Hg 12/12/17 22:00 Hgb O2 Saturation 94.9 % (95.0-98.0) L 12/12/17 22:00 FiO2 21.0 % 12/12/17 22:00 Sodium 137 mmol/l (132-148) 12/24/17 05:50 Potassium 4.4 MMOL/L (3.6-5.0) 12/24/17 05:50 Chloride 102 mmol/L (98-107) 12/24/17 05:50 Carbon Dioxide 31 mmol/L (22-30) H 12/24/17 05:50 Anion Gap 8 (10-20) L 12/24/17 05:50 BUN 30 mg/dl (9-20) H 12/24/17 05:50 Creatinine 0.9 mg/dl (0.8-1.5) 12/24/17 05:50 Est GFR ( Amer) > 60 12/24/17 05:50 Est GFR (Non-Af Amer) > 60 12/24/17 05:50 POC Glucose (mg/dL) 110 mg/dL (65-110) 12/24/17 10:49 Random Glucose 87 mg/dL (75-110) 12/24/17 05:50 Calcium 8.4 mg/dL (8.4-10.2) 12/24/17 05:50 Total Bilirubin 0.3 mg/dl (0.2-1.3) 12/24/17 05:50 AST 20 U/L (17-59) 12/24/17 05:50 ALT 26 U/L (21-72) 12/24/17 05:50 Alkaline Phosphatase 52 U/L (38-126) 12/24/17 05:50 Troponin I < 0.0120 ng/mL (0.00-0.120) 12/12/17 23:30 NT-Pro-B Natriuret Pep 192 pg/ml (0-900) 12/12/17 15:38 Total Protein 5.9 G/DL (6.3-8.2) L 12/24/17 05:50 Albumin 3.0 g/dL (3.5-5.0) L 12/24/17 05:50 Globulin 2.8 gm/dL (2.2-3.9) 12/24/17 05:50 Albumin/Globulin Ratio 1.1 (1.0-2.1) 12/24/17 05:50 Triglycerides 102 mg/DL (0-149) D 12/15/17 05:55 Cholesterol 153 mg/dL (0-199) 12/15/17 05:55 LDL Cholesterol Direct 94 mg/dL (0-129) 05/30/18 05:55 HDL Cholesterol 30 MG/DL (30-70) 12/15/17 05:55 Procalcitonin 0.05 NG/ML (0.19-0.49) L 12/13/17 13:39 Urine Color Straw (YELLOW) 12/22/17 22:29 Urine Clarity Clear (Clear) 12/22/17 22:29 Urine pH 6.0 (5.0-8.0) 12/22/17 22:29 Ur Specific [place] 1.012 (1.003-1.030) 12/22/17 22:29 Urine Protein Negative mg/dL (NEGATIVE) 12/22/17 22:29 Urine Glucose (UA) Neg mg/dL (Normal) 12/22/17 22:29 Urine Ketones Negative mg/dL (NEGATIVE) 12/22/17 22:29 Urine Blood Negative (NEGATIVE) 12/22/17 22:29 Urine Nitrate Negative (NEGATIVE) 12/22/17 22:29 Urine Bilirubin Negative (NEGATIVE) 12/22/17 22:29 Urine Urobilinogen 0.2-1.0 mg/dL (0.2-1.0) 12/22/17 22:29 Ur Leukocyte Esterase Neg Chad/uL (Negative) 12/22/17 22:29 Urine RBC (Auto) 1 /hpf (0-3) 12/22/17 22:29 Urine Microscopic WBC < 1 /hpf (0-5) 12/22/17 22:29 Vancomycin Trough 8.7 ug/mL (5.0-10.0) 12/21/17 21:00 C. difficile Ag & Toxin Negative (NEGATIVE) 12/22/17 22:30 - Hospital Course Hospital Course: 67 y/o old male with PMHx of COPD, DMII, HTN, Psoriasis, PE with IVC filter and previous Hx of ESBL and MRSA infections admitted for coag neg staph bacteremia and severe COPD exacerbation. After admission, Cardio, Pulmonary and ID were consulted. ECHO:There is an echogenic body attached to the aortic valve that was seen on the 05/03/18 study, Echo on 12/14: No endocarditis, Sputum Cx: + E. coli . Patient is s/p Vanco, Zosyn and Meropenem, New blood cultures on antibiotics are negative for any growth. Patient's respiratory symptoms treated with Solumedrol, Prednosone, and Duoneb. Patient was found with negative UA, Ucx and C-diff during admission. Patient was discharged home with Prednosone 20mg PO daily for 3 days followed by 10mg for 3 days, and follow up with PMD. Discharge Exam - Head Exam Head Exam: NORMAL INSPECTION - Eye Exam Eye Exam: Normal appearance Pupil Exam: NORMAL ACCOMODATION - ENT Exam ENT Exam: Mucous Membranes Moist - Respiratory Exam Respiratory Exam: Decreased Breath Sounds, Wheezes. absent: Chest Wall Tenderness - Cardiovascular Exam Cardiovascular Exam: REGULAR RHYTHM - GI/Abdominal Exam GI & Abdominal Exam: Normal Bowel Sounds - Back Exam Back exam: absent: CVA tenderness (L), CVA tenderness (R) - Neurological Exam Neurological exam: Alert, CN II-XII Intact, Oriented x3 - Psychiatric Exam Psychiatric exam: Normal Affect, Normal Mood - Skin Additional comments: Psoriatic skin changes Discharge Plan - Discharge Medications Prescriptions: Albuterol HFA [Ventolin HFA 90 mcg/actuation (8 g)] 2 puff IH [id number] #1 inhaler Tiotropium [Spiriva] 18 mcg IH DAILY 30 Days cap - Follow Up Plan Condition: GUARDED Disposition: HOME/ ROUTINE Instructions: Prednisolone (Systemic), Exacerbation of COPD (DC) Additional Instructions: follow up with primary MD 1 week prednisone taper script provided albuterol and spiriva transmitted to pharmacy Referrals: [facility] [Outside] Pankaj Alonso MD [Medical Doctor] - Tesfaye Pugh MD [Staff Provider] - <Eloina Aldana - Last Filed: 12/25/17 09:06> Provider - Provider Date of Admission: 12/12/17 19:19 Attending physician: Tennille Tavraes MD Hospital Course - Lab Results Lab Results: Micro Results 12/22/17 08:41 Blood-Venous Blood Culture - Preliminary NO GROWTH AFTER 48 HOURS 12/22/17 08:31 Blood-Venous Blood Culture - Preliminary NO GROWTH AFTER 48 HOURS 12/22/17 22:29 Urine,Clean Catch Urine Culture - Final No Growth (<1,000 CFU/ML) 12/16/17 19:25 Blood Blood Culture - Final NO GROWTH AFTER 5 DAYS 12/16/17 19:25 Blood Gram Stain - Final TEST NOT PERFORMED 12/15/17 09:00 Blood Blood Culture - Final NO GROWTH AFTER 5 DAYS 12/14/17 08:20 Blood Blood Culture - Final NO GROWTH AFTER 5 DAYS 12/14/17 08:20 Blood Gram Stain - Final TEST NOT PERFORMED 12/13/17 13:39 Blood Blood Culture - Final NO GROWTH AFTER 5 DAYS 12/13/17 13:39 Blood Gram Stain - Final TEST NOT PERFORMED 12/16/17 15:47 Urine,Clean Catch Urine Culture - Final No Growth (<1,000 CFU/ML) 12/13/17 18:54 Sputum Gram Stain - Final 12/13/17 18:54 Sputum Sputum Culture - Final Escherichia Coli 12/12/17 15:38 Blood-Venous Blood Culture - Final Coagulase Neg Staphylococcus 12/12/17 15:38 Blood-Venous Gram Stain - Final 12/12/17 15:38 Blood-Venous S.aureus & Coag-Neg Staph PNA FISH - Final 12/12/17 15:38 Blood-Venous Blood Culture - Final Coagulase Neg Staphylococcus 12/12/17 15:38 Blood-Venous Gram Stain - Final Most Recent Lab Values WBC 13.4 K/uL (4.8-10.8) H 12/24/17 05:50 RBC 4.36 Mil/uL (4.40-5.90) L 12/24/17 05:50 Hgb 11.8 g/dL (12.0-18.0) L 12/24/17 05:50 Hct 35.8 % (35.0-51.0) 12/24/17 05:50 MCV 82.1 fl (80.0-94.0) 12/24/17 05:50 MCH 26.9 pg (27.0-31.0) L 12/24/17 05:50 MCHC 32.8 g/dL (33.0-37.0) L 12/24/17 05:50 RDW 15.0 % (11.5-14.5) H 12/24/17 05:50 Plt Count 222 K/uL (130-400) 12/24/17 05:50 MPV 8.7 fl (7.2-11.7) 12/22/17 05:25 Neut % (Auto) 53.0 % (50.0-75.0) 12/22/17 05:25 Lymph % (Auto) 33.0 % (20.0-40.0) 12/22/17 05:25 [place] % (Auto) 13.0 % (0.0-10.0) H 12/22/17 05:25 Eos % (Auto) 0.8 % (0.0-4.0) 12/22/17 05:25 Baso % (Auto) 0.2 % (0.0-2.0) 12/22/17 05:25 Neut # (Auto) 6.9 K/uL (1.8-7.0) 12/22/17 05:25 Lymph # (Auto) 4.3 K/uL (1.0-4.3) 12/22/17 05:25 [place] # (Auto) 1.7 K/uL (0.0-0.8) H 12/22/17 05:25 Eos # (Auto) 0.1 K/uL (0.0-0.7) 12/22/17 05:25 Baso # (Auto) 0.0 K/uL (0.0-0.2) 12/22/17 05:25 ESR 14 mm/hr (0-20) 12/16/17 06:00 PT 12.9 Seconds (9.8-13.1) 12/12/17 15:38 INR 1.2 (0.9-1.2) 12/12/17 15:38 APTT 28.2 Seconds (25.6-37.1) 12/12/17 15:38 pCO2 36 mm/Hg (35-45) 12/12/17 22:00 pO2 86 mm/Hg (80-100) 12/12/17 22:00 HCO3 22.8 mmol/L (21-28) 12/12/17 22:00 ABG pH 7.39 (7.35-7.45) 12/12/17 22:00 ABG Total CO2 22.9 mmol/L (22-28) 12/12/17 22:00 ABG O2 Saturation 98.4 % (95-98) H 12/12/17 22:00 ABG O2 Content 17.8 ML/dL (15-23) 12/12/17 22:00 ABG Base Excess -2.7 mmol/L (-2.0-3.0) L 12/12/17 22:00 ABG Hemoglobin 13.3 g/dL (11.7-17.4) 12/12/17 22:00 ABG Carboxyhemoglobin 2.4 % (0.5-1.5) H 12/12/17 22:00 POC ABG HHb (Measured) 1.5 % (0.0-5.0) 12/12/17 22:00 ABG Methemoglobin 1.2 % (0.0-3.0) 12/12/17 22:00 ABG O2 Capacity 18.1 mL/dL (16-24) 12/12/17 22:00 Slim Test Yes 12/12/17 22:00 A-a O2 Difference 19.0 mm/Hg 12/12/17 22:00 Hgb O2 Saturation 94.9 % (95.0-98.0) L 12/12/17 22:00 FiO2 21.0 % 12/12/17 22:00 Sodium 137 mmol/l (132-148) 12/24/17 05:50 Potassium 4.4 MMOL/L (3.6-5.0) 12/24/17 05:50 Chloride 102 mmol/L (98-107) 12/24/17 05:50 Carbon Dioxide 31 mmol/L (22-30) H 12/24/17 05:50 Anion Gap 8 (10-20) L 12/24/17 05:50 BUN 30 mg/dl (9-20) H 12/24/17 05:50 Creatinine 0.9 mg/dl (0.8-1.5) 12/24/17 05:50 Est GFR ( Amer) > 60 12/24/17 05:50 Est GFR (Non-Af Amer) > 60 12/24/17 05:50 POC Glucose (mg/dL) 135 mg/dL (65-110) H 12/24/17 15:56 Random Glucose 87 mg/dL (75-110) 12/24/17 05:50 Calcium 8.4 mg/dL (8.4-10.2) 12/24/17 05:50 Total Bilirubin 0.3 mg/dl (0.2-1.3) 12/24/17 05:50 AST 20 U/L (17-59) 12/24/17 05:50 ALT 26 U/L (21-72) 12/24/17 05:50 Alkaline Phosphatase 52 U/L (38-126) 12/24/17 05:50 Troponin I < 0.0120 ng/mL (0.00-0.120) 12/12/17 23:30 NT-Pro-B Natriuret Pep 192 pg/ml (0-900) 12/12/17 15:38 Total Protein 5.9 G/DL (6.3-8.2) L 12/24/17 05:50 Albumin 3.0 g/dL (3.5-5.0) L 12/24/17 05:50 Globulin 2.8 gm/dL (2.2-3.9) 12/24/17 05:50 Albumin/Globulin Ratio 1.1 (1.0-2.1) 12/24/17 05:50 Triglycerides 102 mg/DL (0-149) D 12/15/17 05:55 Cholesterol 153 mg/dL (0-199) 12/15/17 05:55 LDL Cholesterol Direct 94 mg/dL (0-129) 12/15/17 05:55 HDL Cholesterol 30 MG/DL (30-70) 12/15/17 05:55 Procalcitonin 0.05 NG/ML (0.19-0.49) L 12/13/17 13:39 Urine Color Straw (YELLOW) 12/22/17 22:29 Urine Clarity Clear (Clear) 12/22/17 22:29 Urine pH 6.0 (5.0-8.0) 12/22/17 22:29 Ur Specific [place] 1.012 (1.003-1.030) 12/22/17 22:29 Urine Protein Negative mg/dL (NEGATIVE) 12/22/17 22:29 Urine Glucose (UA) Neg mg/dL (Normal) 12/22/17 22:29 Urine Ketones Negative mg/dL (NEGATIVE) 12/22/17 22:29 Urine Blood Negative (NEGATIVE) 12/22/17 22:29 Urine Nitrate Negative (NEGATIVE) 12/22/17 22:29 Urine Bilirubin Negative (NEGATIVE) 12/22/17 22:29 Urine Urobilinogen 0.2-1.0 mg/dL (0.2-1.0) 12/22/17 22:29 Ur Leukocyte Esterase Neg Chad/uL (Negative) 12/22/17 22:29 Urine RBC (Auto) 1 /hpf (0-3) 12/22/17 22:29 Urine Microscopic WBC < 1 /hpf (0-5) 12/22/17 22:29 Vancomycin Trough 8.7 ug/mL (5.0-10.0) 12/21/17 21:00 C. difficile Ag & Toxin Negative (NEGATIVE) 12/22/17 22:30 Attending/Attestation - Attestation I have personally seen and examined this patient.: Yes I have fully participated in the care of the patient.: Yes I have reviewed all pertinent clinical information, including history, physical exam and plan: Yes Notes (Text): 12/25/17 09:05 Attestation - ATTENDING STATEMENT - Patient seen and examined. Agree with findings and plan.
[2017-12-24 16:00] VITALS: BP 139/74; PULSE 86; RESP 18; TEMP 98.5; O2SAT 97
== END 2017-12-24 17:05 | disposition home or self-care (01) | DRG 541 ==
LOC: H.ER 14:41 → H.ERHOLD 19:19 → H.TEL 20:46 → H.MEDSURG1 12-23 15:00
PROVIDERS: ADMIT Family Medicine Geriatric Medicine; ATTEND Family Medicine Geriatric Medicine
PROC: 3E0F73Z Introduction of Anti-inflammatory into Respiratory Tract, Via Natural or Artificial Opening (ICD-10-PCS; principal; 2017-12-12)
DX: J44.1 Chronic obstructive pulmonary disease with (acute) exacerbation (principal); R78.81 Bacteremia; J45.901 Unspecified asthma with (acute) exacerbation; I11.0 Hypertensive heart disease with heart failure; I50.9 Heart failure, unspecified; B95.7 Other staphylococcus as the cause of diseases classified elsewhere; Z86.14 Personal history of Methicillin resistant Staphylococcus aureus infection; B96.89 Other specified bacterial agents as the cause of diseases classified elsewhere; E11.9 Type 2 diabetes mellitus without complications; L40.9 Psoriasis, unspecified; R09.1 Pleurisy; R30.0 Dysuria; R19.7 Diarrhea, unspecified; B96.20 Unspecified Escherichia coli [E. coli] as the cause of diseases classified elsewhere; Z16.39 Resistance to other specified antimicrobial drug; Z86.711 Personal history of pulmonary embolism; Z87.01 Personal history of pneumonia (recurrent); Z87.891 Personal history of nicotine dependence; Z59.0 Homelessness

== ENCOUNTER 2018-01-16 10:52 | Inpatient (IN) | payer SELFPAY ==
[2018-01-16] MEDS ORDERED: Levalbuterol 0.63 MG/3 ML Inhal Soln UD ONE (11:17)
[2018-01-16] MEDS ORDERED: Levalbuterol 1.25 MG/3 ML Inhal Soln UD INH SCH (11:25)
--- NOTE | 2018-01-16 11:27 | ED PDOC ---
HPI: General Adult Time Seen by Provider: 01/16/18 11:05 Chief Complaint (Nursing): Shortness Of Breath Additional Complaint(s): 67 y/o M c PMHx COPD/asthma p/w shortness of breath x 1 hour that feels similar to previous asthma exacerbations. Patient states very hot outside (100 degree day) which contributed. Also reports cough and low grade fever. Denies chest pain, leg swelling, previous intubations. Past Medical History - Medical History PMH: Asthma, CHF, COPD (asthma), Diabetes, HTN, Hypercholesterolemia, Pneumonia , Pulmonary Embolism Denies: HIV, Chronic Kidney Disease - Family History Family History: States: [place], Diabetes - Immunization History Hx Tetanus Toxoid Vaccination: No Hx Influenza Vaccination: No Hx Pneumococcal Vaccination: No - Home Medications Home Medications: Ambulatory Orders Medication Instructions Recorded Albuterol HFA [Ventolin HFA 90 2 puff IH [id number] #1 inhaler 12/24/17 mcg/actuation (8 g)] Insulin Detemir [Levemir] 8 units SC HS vial 12/24/17 Tiotropium [Spiriva] 18 mcg IH DAILY 30 Days cap 12/24/17 Triamcinolone 0.1% [Kenalog 0.1% 1 appl TOP BID tube 12/24/17 Oint] guaiFENesin/Dextromethorphan 10 ml PO Q6 PRN udc 12/24/17 [Robitussin DM] predniSONE [predniSONE Tab] 20 mg PO DAILY tab 12/24/17 - Allergies Allergies/Adverse Reactions: Allergies Allergy/AdvReac Type Severity Reaction Status Date / Time No Known Allergies Allergy Verified 12/12/17 14:45 Review of Systems ROS Statement: Except As Marked, All Systems Reviewed And Found Negative Constitutional: Negative for: Fever Cardiovascular: Negative for: Chest Pain Physical Exam - Physical Exam Comments: Gen: NAD Head: NC Eyes: No scleral icterus ENT: MMM Neck: Supple Chest: No tenderness CV: Tachycardic rate Lungs: Wheezing b/l Abd: Soft, NT Back: No CVA tenderness Extremities: No edema Skin: No rash Neuro: Alert, no focal deficit - Laboratory Results Result Diagrams: 01/16/18 11:30 01/16/18 11:30 Medical Decision Making Medical Decision Making: Patient continues to have shortness of breath and wheezing. Will keep for COPD exacerbation. Disposition - Clinical Impression Clinical Impression: COPD exacerbation - Disposition Disposition Time: 14:12 Condition: FAIR Forms: [facility] (Yi) - Pt Status Changed To: Hospital Disposition Of: Observation
[2018-01-16] MEDS: Levalbuterol 0.63 MG/3 ML Inhal Soln UD IH SCH ×3 (11:30→12:12)
[2018-01-16 11:58] LABS: BASO # 0.1 K/uL (0.0-0.2); BASO % 0.9 % (0.0-2.0); EOS # 0.3 K/uL (0.0-0.7); EOS % 4.1 % (0.0-4.0); HEMOGLOBIN 12.7 g/dL (12.0-18.0); LYMPH # 2.9 K/uL (1.0-4.3); LYMPH % 36.6 % (20.0-40.0); MEAN CORPUSCULAR HEMOGLOBIN 26.9 pg (27.0-31.0); MEAN CORPUSCULAR HGB CONC 33.6 g/dL (33.0-37.0); MEAN PLATELET VOLUME 8.1 fl (7.2-11.7); MONO # 1.1 K/uL (0.0-0.8); MONO % 14.3 % (0.0-10.0); NEUT # 3.5 K/uL (1.8-7.0); NEUT % 44.1 % (50.0-75.0); NRBC % 0.1 % (0.0-0.0); RBC 4.7 Mil/uL (4.40-5.90); RED CELL DISTRIBUTION WIDTH 14.5 % (11.5-14.5)
[2018-01-16 12:15] LABS: ALBUMIN 3.4 g/dL (3.5-5.0); ALT/SGPT 16 U/L (21-72); AST/SGOT 24 U/L (17-59); BLOOD UREA NITROGEN 15 mg/dl (9-20); CALCIUM 8.6 mg/dL (8.4-10.2); GFR AFRICAN-AMERICAN > 60; GFR NON-AFRICAN AMERICAN > 60
--- NOTE | 2018-01-16 13:33 | RAD ---
HISTORY: dyspnea COMPARISON: No prior. TECHNIQUE: Chest PA and lateral FINDINGS: LUNGS: See below6 PLEURA: No significant pleural effusion identified. No pneumothorax apparent. CARDIOVASCULAR: Normal. OSSEOUS STRUCTURES: No significant abnormalities. VISUALIZED UPPER ABDOMEN: Normal. OTHER FINDINGS: None. IMPRESSION: Mild disc code at Jv at the left base..
[2018-01-16] MEDS ORDERED: Albuterol-Ipratrop 3 mg / 0.5 (3 ml) UD INH PRN (15:40)
--- NOTE | 2018-01-16 15:51 | CP.PCM.HP ---
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 He reports intermittent brownish/yellowish sputum production as well as chest tightness. He reports similar symptoms in past exacerbations. He reports he went to ambulate in the streets and park this afternoon but after a certain time he became short of breath. He also reports he began coughing and wheezing. The cough is phelgmous sounding with intermittent brownish/yellowish sputum production. He denies any hemoptysis, CP , palpitations, left arm/jaw pain. No other complaints. PMD: NO PMD. No notes from clinic found in [facility] Allergies: NKDA Meds: No taking any medications PSHx: IVC filter placement SocialHx: former smoker, quit 1 yr ago. Formerly smoked 3-4 packs/day. Former alcohol abuser. Denies illicit drug use FamilyHx: sister with diabetes. no hx of heart dz or cancer Next of kin: son, lives in [place] Code status: Full code ED course: Vitals: stable Labs -CBC: wnl -CMP: wnl Imaging -CXR: bibasilar atelactsis, no infectious process identified Treatment -Xopenex x3 Q15min -Solu-medrol 125mg IVP Present on Admission - Present on Admission Any Indicators Present on Admission: Yes History of DVT/PE: Yes History of Uncontrolled Diabetes: No Urinary Catheter: No Decubitus Ulcer Present: No History Surgical Site Infection Following: None Review of Systems - Constitutional Constitutional: As Per HPI. absent: Chills, Excessive Sweating, Fever, Headache - EENT Eyes: As Per HPI. absent: Blurred Vision, Change in Vision, Diplopia Nose/Mouth/Throat: Nasal Congestion, Nasal Discharge, Post Nasal Drip. absent: Sinus Pain, Sinus Pressure, Bleeding Gums, Hoarsness, Mouth Pain, Odynophagia, Sore Throat, Tongue Swelling, Facial Pain, Neck Pain - Cardiovascular Cardiovascular: Dyspnea, Pedal Edema. absent: Chest Pain at Rest, Chest Pain with Activity, Claudication, Diaphoresis, Dyspnea on Exertion, Edema, Irregular Heart Rhythm, Pain Radiating to Arm/Neck/Jaw, Lightheadedness, Palpitations - Respiratory Respiratory: Cough, Dyspnea, Dyspnea on Exertion, Wheezing, Chest Congestion, Excessive Mucous Production, Change in Mucous Color. absent: Hemoptysis, Snoring, Stridor, Pain on Inspiration, Pain with Coughing - Gastrointestinal Gastrointestinal: absent: Abdominal Pain, Coffee Ground Emesis, Constipation, Diarrhea, Melena, Nausea, Vomiting - Musculoskeletal Musculoskeletal: As Per HPI - Neurological Neurological: As Per HPI - Psychiatric Psychiatric: As Per HPI Past Patient History - Infectious Disease Hx of Infectious Diseases: None - Tetanus Immunizations Tetanus Immunization: Unknown - Past Medical History & Family History Past Medical History?: Yes Past Family History: Reviewed and not pertinent - Past Social History Smoking Status: Former Smoker Alcohol: None Drugs: Denies Home Situation {Lives}: Homeless - CARDIAC Hx Congestive Heart Failure: Yes Hx Hypercholesterolemia: Yes Hx Hypertension: Yes - PULMONARY Hx Asthma: Yes Hx Chronic Obstructive Pulmonary Disease (COPD): Yes (asthma) Hx Pneumonia: Yes Hx Pulmonary Embolism: Yes - NEUROLOGICAL Hx Neurological Disorder: No - HEENT Hx HEENT Problems: No - RENAL Hx Chronic Kidney Disease: No - ENDOCRINE/METABOLIC Hx Diabetes Mellitus Type 2: Yes - HEMATOLOGICAL/ONCOLOGICAL Hx Human Immunodeficiency Virus (HIV): No - INTEGUMENTARY Hx Dermatological Problems: Yes (GENERALIZED SKIN PSORIASIS) Hx Psoriasis: Yes - MUSCULOSKELETAL/RHEUMATOLOGICAL Hx Musculoskeletal Disorders: No Hx Falls: No - GASTROINTESTINAL Hx Gastrointestinal Disorders: Yes Other/Comment: GI bleeding - GENITOURINARY/GYNECOLOGICAL Hx Genitourinary Disorders: No - PSYCHIATRIC Hx Psychophysiologic Disorder: No Hx Substance Use: No - SURGICAL HISTORY Hx Surgeries: Yes Other/Comment: IVC Filter - ANESTHESIA Hx Anesthesia: Yes Hx Anesthesia Reactions: No Hx Malignant Hyperthermia: No Meds Allergies/Adverse Reactions: Allergies Allergy/AdvReac Type Severity Reaction Status Date / Time No Known Allergies Allergy Verified 12/12/17 14:45 Physical Exam - Constitutional Appears: Non-toxic, No Acute Distress - Head Exam Head Exam: ATRAUMATIC, NORMAL INSPECTION, NORMOCEPHALIC - Eye Exam Eye Exam: EOMI, Normal appearance, PERRL Pupil Exam: NORMAL ACCOMODATION, PERRL - ENT Exam ENT Exam: Mucous Membranes Moist - Neck Exam Neck exam: Negative for: Lymphadenopathy - Respiratory Exam Respiratory Exam: Decreased Breath Sounds, Prolonged Expiratory Phase, Rhonchi, Wheezes, NORMAL BREATHING PATTERN. absent: Accessory Muscle Use, Clear to Auscultation Bilateral, Rales, Respiratory Distress Additional comments: b/l wheezes, rhonci. Diffuse in both lung cramer. Decreased air entry b/l. - Cardiovascular Exam Cardiovascular Exam: REGULAR RHYTHM, RRR, +S1, +S2. absent: Tachycardia, JVD, Rubs, Systolic Murmur - GI/Abdominal Exam GI & Abdominal Exam: Normal Bowel Sounds, Soft. absent: Tenderness - Extremities Exam Extremities exam: Positive for: normal capillary refill, pedal edema, pedal pulses present - Neurological Exam Neurological exam: Alert, CN II-XII Intact, Normal Gait, Oriented x3, Reflexes Normal - Psychiatric Exam Psychiatric exam: Normal Affect, Normal Mood - Skin Skin Exam: Rash (chronic psoriatic lesions, w/o signs of bacterial superinfection) Results - Labs Result Diagrams: 01/16/18 11:30 01/16/18 11:30 Labs: Laboratory Results - last 24 hr 01/16/18 01/16/18 11:30 11:30 WBC 8.0 RBC 4.70 Hgb 12.7 Hct 37.6 MCV 80.0 D MCH 26.9 L MCHC 33.6 RDW 14.5 Plt Count 286 MPV 8.1 Neut % (Auto) 44.1 L Lymph % (Auto) 36.6 Baca % (Auto) 14.3 H Eos % (Auto) 4.1 H Baso % (Auto) 0.9 Neut # (Auto) 3.5 Lymph # (Auto) 2.9 Baca # (Auto) 1.1 H Eos # (Auto) 0.3 Baso # (Auto) 0.1 Sodium 142 Potassium 3.7 Chloride 108 H Carbon Dioxide 22 Anion Gap 16 BUN 15 Creatinine 1.0 Est GFR ( Amer) > 60 Est GFR (Non-Af Amer) > 60 Random Glucose 160 H Calcium 8.6 Total Bilirubin 0.4 AST 24 ALT 16 L D Alkaline Phosphatase 76 Total Protein 6.9 Albumin 3.4 L Globulin 3.4 Albumin/Globulin Ratio 1.0 Assessment & Plan - Assessment and Plan (Free Text) Assessment: 67 y/o male with extensive medical history admitted for acute COPD exacerbation. Plan: 1) Acute COPD exacerbation -Admit tele -s/p Xopenex x3 and 125mg Solu-medrol in ED -c/w solumedrol 60 mg Q 12h -Duo-nebs RQID -Duo-neb q6H PRN SOB -O2 via NC, 2L, titrate to maintain POX >92% -CXR no active disease -due to increased sputum production/purulence start Abx -Rocephin 1gm QD -Azithromycin 500mg IV QD 2) NIDDM2 -controlled -last hgb a1c 5.9 on 10/2017 -not on any home medications -Lispo correction scale, hypoglycemia protocol 3) History of Hypertension -asymptomatic -Controlled w/o meds -monitor vitals 4) Hx/o PE -2 years ago -IVC filter in place -DVT ppx while on floors 5) Psoriasis -chronic -not on treatment 6) DVT Prophylaxis -CrCl: 69 mL/min (adjusted) -Lovenox 40 mg sc daily 7) Code Status: -Full Code 8) Diet -Heart healthy <Eloina Aldana - Last Filed: 01/17/18 08:15> Results - Vital Signs Recent Vital Signs: Last Vital Signs Temp 97.7 F 01/17/18 07:57 Pulse 112 H 01/17/18 07:57 Resp 18 01/17/18 07:57 BP 143/72 01/17/18 07:57 Pulse Ox 100 01/17/18 07:57 - Labs Result Diagrams: 01/17/18 05:10 01/17/18 05:10 Labs: Laboratory Results - last 24 hr 01/16/18 01/16/18 01/16/18 11:30 11:30 16:24 WBC 8.0 RBC 4.70 Hgb 12.7 Hct 37.6 MCV 80.0 D MCH 26.9 L MCHC 33.6 RDW 14.5 Plt Count 286 MPV 8.1 Neut % (Auto) 44.1 L Lymph % (Auto) 36.6 Baca % (Auto) 14.3 H Eos % (Auto) 4.1 H Baso % (Auto) 0.9 Neut # (Auto) 3.5 Lymph # (Auto) 2.9 Baca # (Auto) 1.1 H Eos # (Auto) 0.3 Baso # (Auto) 0.1 Sodium 142 Potassium 3.7 Chloride 108 H Carbon Dioxide 22 Anion Gap 16 BUN 15 Creatinine 1.0 Est GFR ( Amer) > 60 Est GFR (Non-Af Amer) > 60 POC Glucose (mg/dL) 153 H Random Glucose 160 H Calcium 8.6 Total Bilirubin 0.4 AST 24 ALT 16 L D Alkaline Phosphatase 76 Total Protein 6.9 Albumin 3.4 L Globulin 3.4 Albumin/Globulin Ratio 1.0 01/16/18 01/17/18 01/17/18 21:31 05:10 05:10 WBC 8.8 RBC 4.71 Hgb 12.4 Hct 38.1 MCV 80.8 MCH 26.4 L MCHC 32.7 L RDW 15.0 H Plt Count 289 MPV Neut % (Auto) Lymph % (Auto) Baca % (Auto) Eos % (Auto) Baso % (Auto) Neut # (Auto) Lymph # (Auto) Baca # (Auto) Eos # (Auto) Baso # (Auto) Sodium 143 Potassium 4.5 Chloride 106 Carbon Dioxide 24 Anion Gap 18 BUN 21 H Creatinine 1.0 Est GFR ( Amer) > 60 Est GFR (Non-Af Amer) > 60 POC Glucose (mg/dL) 181 H Random Glucose 219 H Calcium 8.7 Total Bilirubin 0.4 AST 27 ALT 17 L Alkaline Phosphatase 71 Total Protein 7.2 Albumin 3.5 Globulin 3.7 Albumin/Globulin Ratio 1.0 01/17/18 05:11 WBC RBC Hgb Hct MCV MCH MCHC RDW Plt Count MPV Neut % (Auto) Lymph % (Auto) Baca % (Auto) Eos % (Auto) Baso % (Auto) Neut # (Auto) Lymph # (Auto) Baca # (Auto) Eos # (Auto) Baso # (Auto) Sodium Potassium Chloride Carbon Dioxide Anion Gap BUN Creatinine Est GFR ( Amer) Est GFR (Non-Af Amer) POC Glucose (mg/dL) 250 H Random Glucose Calcium Total Bilirubin AST ALT Alkaline Phosphatase Total Protein Albumin Globulin Albumin/Globulin Ratio Attending/Attestation - Attestation I have fully participated in the care of the patient.: Yes I have reviewed all pertinent clinical information: Yes Notes (Text): 01/17/18 08:14 Case discussed at length. Chart reviewed. Agree with findings and plan.
[2018-01-16] MEDS ORDERED: Sodium Chloride 3% for Inhalation 4 ML VIAL.NEB IH PRN (16:07)
[2018-01-16] MEDS: Albuterol-Ipratrop 3 mg / 0.5 (3 ml) UD INH SCH ×2 (16:56→19:09)
[2018-01-16] MEDS: Insulin Lispro (humaLOG) 100 Units/ml Inj SC SCH ×2 (17:06→21:34)
[2018-01-16] MEDS: Azithromycin 500 MG in Sodium Chloride 0.9% 250 ML IVPB SCH (17:07)
[2018-01-16] MEDS ORDERED: methylPREDNISolone 60 MG in Sodium Chloride 0.9% 50 ML IVPB SCH (21:00)
[2018-01-17 05:36] LABS: HEMOGLOBIN 12.4 g/dL (12.0-18.0); MEAN CELL VOLUME 80.8 fl (80.0-94.0); MEAN CORPUSCULAR HEMOGLOBIN 26.4 pg (27.0-31.0); MEAN CORPUSCULAR HGB CONC 32.7 g/dL (33.0-37.0); RBC 4.71 Mil/uL (4.40-5.90); WHITE BLOOD COUNT 8.8 K/uL (4.8-10.8)
[2018-01-17 06:06] LABS: ALBUMIN 3.5 g/dL (3.5-5.0); ALT/SGPT 17 U/L (21-72); AST/SGOT 27 U/L (17-59); BLOOD UREA NITROGEN 21 mg/dl (9-20); CALCIUM 8.7 mg/dL (8.4-10.2); GFR AFRICAN-AMERICAN > 60; GFR NON-AFRICAN AMERICAN > 60
[2018-01-17] MEDS: Insulin Lispro (humaLOG) 100 Units/ml Inj SC SCH ×4 (06:41→21:58)
[2018-01-17] MEDS: Albuterol-Ipratrop 3 mg / 0.5 (3 ml) UD INH SCH ×4 (07:26→19:09)
--- NOTE | 2018-01-17 08:33 | CP.PCM.PN ---
Subjective - Date & Time of Evaluation Date of Evaluation: 01/17/18 Time of Evaluation: 08:30 - Subjective Subjective: 67 y/o homeless male w/ pmhx of COPD, NIDDM2, HTN, PE with IVC filter c/o of acute onset SOB with episodically phelgmous to dry cough. He reports intermittent brownish/yellowish sputum production as well as chest tightness. He reports similar symptoms in past exacerbations. The cough is phelgmous sounding with intermittent brownish/yellowish sputum production. He denies any hemoptysis, CP, palpitations, left arm/jaw pain. Patient seen and examined at bedside. Objective - Vital Signs/Intake and Output Vital Signs (last 24 hours): Temp Pulse Resp BP Pulse Ox 97.7 F 112 H 18 143/72 100 01/17/18 07:57 01/17/18 07:57 01/17/18 07:57 01/17/18 07:57 01/17/18 07:57 - Medications Medications: Current Medications Albuterol/Ipratropium (Duoneb 3 Mg/0.5 Mg (3 Ml) Ud) 3 ml INH RQID [facility] Last Admin: 01/17/18 07:26 Dose: 3 ml Albuterol/Ipratropium (Duoneb 3 Mg/0.5 Mg (3 Ml) Ud) 3 ml INH RQ4 PRN PRN Reason: Shortness of Breath Enoxaparin Sodium (Lovenox) 40 mg SC DAILY [facility] PRN Reason: Protocol Azithromycin 500 mg/ Sodium (Chloride) 250 mls @ 250 mls/hr IVPB DAILY [facility] PRN Reason: Protocol Last Admin: 01/16/18 17:07 Dose: 250 mls/hr Ceftriaxone Sodium 1 gm/ (Sodium Chloride) 100 mls @ 100 mls/hr IVPB DAILY [facility] PRN Reason: Protocol Last Admin: 01/16/18 17:08 Dose: 100 mls/hr Insulin Human Lispro (Humalog) 0 units SC ACHS [facility] PRN Reason: Protocol Last Admin: 01/17/18 06:41 Dose: 4 units Methylprednisolone (Solu-Medrol) 60 mg IV Q12 [facility] Last Admin: 01/16/18 21:33 Dose: 60 mg - Labs Labs: 01/17/18 05:10 01/17/18 05:10 - Constitutional Appears: No Acute Distress, Other (Coughing, nasal cannula in place. ) - Respiratory Exam Respiratory Exam: Rales, Rhonchi, Wheezes. absent: Stridor Additional comments: Cough, Dyspnea, Chest Congestion, Excessive Mucous Production, Change in Mucous Color. absent: Hemoptysis, Snoring, Pain on Inspiration, Pain with Coughing - Cardiovascular Exam Cardiovascular Exam: REGULAR RHYTHM, +S1, +S2 - GI/Abdominal Exam GI & Abdominal Exam: Soft, Normal Bowel Sounds - Skin Additional comments: pruritic psoriatic rash on both arms Assessment and Plan - Assessment and Plan (Free Text) Assessment: 67 y/o male with extensive medical history admitted for acute COPD exacerbation. Plan: 1) Acute COPD exacerbation -s/p Xopenex x3 and 125mg Solu-medrol in ED -c/w solumedrol 60 mg Q 12h -Duo-nebs RQID -Duo-neb q6H PRN SOB -O2 via NC, 2L, titrate to maintain POX >92% -CXR no active disease -due to increased sputum production/purulence start Abx -Rocephin 1gm QD -switching Azithromycin 500mg IV QD to PO 2) NIDDM2 -controlled -last hgb a1c 5.9 on 10/2017 -not on any home medications -Lispo correction scale, hypoglycemia protocol 3) History of Hypertension -asymptomatic -Controlled w/o meds -monitor vitals 4) Hx/o PE -2 years ago -IVC filter in place -DVT ppx while on floors 5) Psoriasis -chronic -not on treatment 6) DVT Prophylaxis -CrCl: 69 mL/min (adjusted) -Lovenox 40 mg sc daily 7) Code Status: -Full Code 8) Diet -Heart healthy
[2018-01-17] MEDS: Azithromycin 500 MG in Sodium Chloride 0.9% 250 ML IVPB SCH (08:45)
[2018-01-17] MEDS: Enoxaparin 40 mg Syringe SC SCH (22:06)
[2018-01-18 05:39] LABS: HEMOGLOBIN 12.1 g/dL (12.0-18.0); MEAN CORPUSCULAR HEMOGLOBIN 25.8 pg (27.0-31.0); MEAN CORPUSCULAR HGB CONC 31.9 g/dL (33.0-37.0); RBC 4.69 Mil/uL (4.40-5.90); RED CELL DISTRIBUTION WIDTH 14.8 % (11.5-14.5)
[2018-01-18 06:00] LABS: ALB/GLOB RATIO 1.1 (1.0-2.1); ALBUMIN 3.6 g/dL (3.5-5.0); ALT/SGPT 30 U/L (21-72); AST/SGOT 31 U/L (17-59); BLOOD UREA NITROGEN 22 mg/dl (9-20); CALCIUM 8.4 mg/dL (8.4-10.2); GFR AFRICAN-AMERICAN > 60; GFR NON-AFRICAN AMERICAN > 60
[2018-01-18] MEDS: Albuterol-Ipratrop 3 mg / 0.5 (3 ml) UD INH SCH ×4 (08:10→19:19)
--- NOTE | 2018-01-18 09:35 | CP.PCM.PN ---
Subjective - Date & Time of Evaluation Date of Evaluation: 01/18/18 Time of Evaluation: 09:33 - Subjective Subjective: 67 y/o homeless male w/ pmhx of COPD, NIDDM2, HTN, PE with IVC filter c/o of acute onset SOB with episodically phelgmous to dry cough. He reports intermittent brownish/yellowish sputum production as well as chest tightness. He reports similar symptoms in past exacerbations. The cough is phelgmous sounding with intermittent brownish/yellowish sputum production. He denies any hemoptysis, CP, palpitations, left arm/jaw pain. Patient seen and examined at bedside. He reports improvement in cough. Objective - Vital Signs/Intake and Output Vital Signs (last 24 hours): Temp Pulse Resp BP Pulse Ox 97.7 F 92 H 18 149/81 100 01/18/18 08:32 01/18/18 08:32 01/18/18 08:32 01/18/18 08:32 01/18/18 08:32 - Medications Medications: Current Medications Albuterol/Ipratropium (Duoneb 3 Mg/0.5 Mg (3 Ml) Ud) 3 ml INH RQID [facility] Last Admin: 01/18/18 08:10 Dose: 3 ml Albuterol/Ipratropium (Duoneb 3 Mg/0.5 Mg (3 Ml) Ud) 3 ml INH RQ4 PRN PRN Reason: Shortness of Breath Azithromycin (Zithromax) 250 mg PO DAILY [facility] PRN Reason: Protocol Stop: 01/21/18 09:01 Enoxaparin Sodium (Lovenox) 40 mg SC DAILY [facility] PRN Reason: Protocol Last Admin: 01/17/18 22:06 Dose: 40 mg Ceftriaxone Sodium 1 gm/ (Sodium Chloride) 100 mls @ 100 mls/hr IVPB DAILY [facility] PRN Reason: Protocol Last Admin: 01/17/18 08:44 Dose: 100 mls/hr Insulin Human Lispro (Humalog) 0 units SC ACHS [facility] PRN Reason: Protocol Last Admin: 01/17/18 21:58 Dose: 2 units Lactic Acid (Lac-Hydrin 12% Lotion (225 G)) 1 applic TOP TID [facility] Last Admin: 01/17/18 17:24 Dose: 1 applic Methylprednisolone (Solu-Medrol) 60 mg IV Q12 [facility] Last Admin: 01/17/18 21:57 Dose: 60 mg - Labs Labs: 01/18/18 04:20 01/18/18 04:20 - Constitutional Appears: Well, No Acute Distress - Respiratory Exam Respiratory Exam: Rales, Rhonchi, Wheezes - Cardiovascular Exam Cardiovascular Exam: REGULAR RHYTHM, +S1, +S2 - GI/Abdominal Exam GI & Abdominal Exam: Soft, Normal Bowel Sounds. absent: Distended, Tenderness - Neurological Exam Neurological Exam: Alert, Awake, Oriented x3 - Skin Skin Exam: Rash Additional comments: Psoriatic rash on bilateral forearms Assessment and Plan - Assessment and Plan (Free Text) Assessment: Assessment: 67 y/o male with extensive medical history admitted for acute COPD exacerbation. Plan: 1) Acute COPD exacerbation -s/p Xopenex x3 and 125mg Solu-medrol in ED -c/w solumedrol 60 mg IV Q 12h -Duo-nebs RQID -Duo-neb q6H PRN SOB -O2 via NC, 2L, titrate to maintain POX >92% -due to increased sputum production/purulence start Abx -gram stain showed rare gram+ bacili; culture pending -Rocephin 100mL/hr -cont Azithromycin 500mg IV QD to PO 2) Leukocytosis -WBC 16.0 -afebrile -likley steroid induced -awaiting sputum cultures 3) NIDDM2 -controlled -last hgb a1c 5.9 on 10/2017 -not on any home medications -Lispo correction scale, hypoglycemia protocol 4) History of Hypertension -asymptomatic -Controlled w/o meds -monitor vitals 5) Hx/o PE -2 years ago -IVC filter in place -DVT ppx while on floors 6) Psoriasis -chronic -pruritic bilateral forearm rash -started on Lac-hydrin 2% lotion 1 application TID 7) DVT Prophylaxis -CrCl: 69 mL/min (adjusted) -Lovenox 40 mg sc daily 8) Code Status: -Full Code 9) Diet -Heart healthy
[2018-01-18] MEDS: Insulin Lispro (humaLOG) 100 Units/ml Inj SC SCH ×4 (09:48→22:44)
[2018-01-18] MEDS: Enoxaparin 40 mg Syringe SC SCH (09:55)
[2018-01-19 05:50] LABS: HEMOGLOBIN 12.3 g/dL (12.0-18.0); MEAN CELL VOLUME 80.5 fl (80.0-94.0); MEAN CORPUSCULAR HEMOGLOBIN 26.2 pg (27.0-31.0); MEAN CORPUSCULAR HGB CONC 32.6 g/dL (33.0-37.0); RBC 4.7 Mil/uL (4.40-5.90); RED CELL DISTRIBUTION WIDTH 14.8 % (11.5-14.5); WHITE BLOOD COUNT 15.4 K/uL (4.8-10.8)
[2018-01-19 05:56] LABS: BLOOD UREA NITROGEN 20 mg/dl (9-20); CALCIUM 8.5 mg/dL (8.4-10.2); GFR AFRICAN-AMERICAN > 60; GFR NON-AFRICAN AMERICAN > 60
[2018-01-19] MEDS: Insulin Lispro (humaLOG) 100 Units/ml Inj SC SCH ×4 (07:06→22:00)
[2018-01-19] MEDS: Albuterol-Ipratrop 3 mg / 0.5 (3 ml) UD INH SCH ×4 (07:53→19:30)
--- NOTE | 2018-01-19 09:01 | CP.PCM.PN ---
Subjective - Date & Time of Evaluation Date of Evaluation: 01/19/18 Time of Evaluation: 09:00 - Subjective Subjective: 67 y/o homeless male w/ pmhx of COPD, NIDDM2, HTN, PE with IVC filter c/o of acute onset SOB with episodically phelgmous to dry cough. He reports intermittent brownish/yellowish sputum production as well as chest tightness. He reports similar symptoms in past exacerbations. The cough is phelgmous sounding with intermittent brownish/yellowish sputum production. He denies any hemoptysis, CP, palpitations, left arm/jaw pain. Patient seen and examined at bedside. [address], cough is improving. Objective - Vital Signs/Intake and Output Vital Signs (last 24 hours): Temp Pulse Resp BP Pulse Ox 97.6 F 90 18 169/88 H 100 01/19/18 08:17 01/19/18 08:17 01/19/18 08:17 01/19/18 08:17 01/19/18 08:17 - Medications Medications: Current Medications Albuterol/Ipratropium (Duoneb 3 Mg/0.5 Mg (3 Ml) Ud) 3 ml INH RQID [facility] Last Admin: 01/19/18 07:53 Dose: 3 ml Albuterol/Ipratropium (Duoneb 3 Mg/0.5 Mg (3 Ml) Ud) 3 ml INH RQ4 PRN PRN Reason: Shortness of Breath Azithromycin (Zithromax) 250 mg PO DAILY [facility] PRN Reason: Protocol Stop: 01/21/18 09:01 Last Admin: 01/18/18 09:55 Dose: 250 mg Enoxaparin Sodium (Lovenox) 40 mg SC DAILY [facility] PRN Reason: Protocol Last Admin: 01/18/18 09:55 Dose: 40 mg Ceftriaxone Sodium 1 gm/ (Sodium Chloride) 100 mls @ 100 mls/hr IVPB DAILY [facility] PRN Reason: Protocol Last Admin: 01/18/18 09:49 Dose: 100 mls/hr Insulin Human Lispro (Humalog) 0 units SC ACHS [facility] PRN Reason: Protocol Last Admin: 01/19/18 07:06 Dose: 3 units Lactic Acid (Lac-Hydrin 12% Lotion (225 G)) 1 applic TOP TID [facility] Last Admin: 01/18/18 16:58 Dose: 1 applic Methylprednisolone (Solu-Medrol) 60 mg IV Q12 [facility] Last Admin: 01/18/18 21:03 Dose: 60 mg - Labs Labs: 01/19/18 04:20 01/19/18 04:20 - Constitutional Appears: No Acute Distress - ENT Exam ENT Exam: Mucous Membranes Moist - Respiratory Exam Respiratory Exam: Rales, Rhonchi, Wheezes - Cardiovascular Exam Cardiovascular Exam: REGULAR RHYTHM, +S1, +S2 - GI/Abdominal Exam GI & Abdominal Exam: Soft, Normal Bowel Sounds. absent: Tenderness - Neurological Exam Neurological Exam: Alert, Awake, Oriented x3 - Skin Skin Exam: Dry, Warm Additional comments: scaley patches of skin; psoriatic rash Assessment and Plan - Assessment and Plan (Free Text) Assessment: 67 y/o male with extensive medical history admitted for acute COPD exacerbation. Plan: 1) Acute COPD exacerbation -s/p Xopenex x3 and 125mg Solu-medrol in ED -decreasing solumedrol 60 mg IV Q 12h to 40mg IV BID -Duo-nebs RQID -Duo-neb q6H PRN SOB -O2 via NC, 2L, titrate to maintain POX >92% -due to increased sputum production/purulence start Abx -gram stain showed rare gram+ bacili; culture pending -Rocephin 1gm QD -cont Azithromycin 500mg IV QD to PO 2) Leukocytosis -WBC 16.0 7/3, 15.4 today -afebrile -likely steroid induced -awaiting sputum cultures 3) NIDDM2 -controlled -last hgb a1c 5.9 on 10/2017 -not on any home medications -Lispo correction scale, hypoglycemia protocol 4) History of Hypertension -asymptomatic -Controlled w/o meds -monitor vitals 5) Hx/o PE -2 years ago -IVC filter in place -DVT ppx while on floors 6) Psoriasis -chronic -pruritic bilateral forearm rash -started on Lac-hydrin 2% lotion 1 application TID 7) DVT Prophylaxis -CrCl: 69 mL/min (adjusted) -Lovenox 40 mg sc daily 8) Code Status: -Full Code 9) Diet -Heart healthy
[2018-01-19] MEDS: Enoxaparin 40 mg Syringe SC SCH (09:52)
[2018-01-19] MEDS ORDERED: MethylPREDNISolone 40 mg Vial IV SCH (11:10)
[2018-01-20 05:27] LABS: HEMOGLOBIN 12.5 g/dL (12.0-18.0); MEAN CELL VOLUME 80.8 fl (80.0-94.0); MEAN CORPUSCULAR HEMOGLOBIN 26.1 pg (27.0-31.0); MEAN CORPUSCULAR HGB CONC 32.3 g/dL (33.0-37.0); RBC 4.78 Mil/uL (4.40-5.90); RED CELL DISTRIBUTION WIDTH 14.7 % (11.5-14.5)
[2018-01-20 06:13] LABS: ALB/GLOB RATIO 1.1 (1.0-2.1); ALBUMIN 3.3 g/dL (3.5-5.0); ALT/SGPT 27 U/L (21-72); AST/SGOT 20 U/L (17-59); BLOOD UREA NITROGEN 23 mg/dl (9-20); CALCIUM 8.2 mg/dL (8.4-10.2); GFR AFRICAN-AMERICAN > 60; GFR NON-AFRICAN AMERICAN > 60
[2018-01-20] MEDS: Albuterol-Ipratrop 3 mg / 0.5 (3 ml) UD INH SCH ×4 (07:39→20:28)
--- NOTE | 2018-01-20 09:51 | CP.PCM.PN ---
Subjective - Date & Time of Evaluation Date of Evaluation: 01/20/18 Time of Evaluation: 09:48 - Subjective Subjective: 67 y/o homeless male w/ pmhx of COPD, NIDDM2, HTN, PE with IVC filter c/o of acute onset SOB with episodically phelgmous to dry cough. He reports intermittent brownish/yellowish sputum production as well as chest tightness. He reports similar symptoms in past exacerbations. The cough is phelgmous sounding with intermittent brownish/yellowish sputum production. Patient was sleeping comfortably, woke up and stated that his cough and breathing are improving, but continues to have purulent sputum. He denies dyspnea and chest pain. Objective - Vital Signs/Intake and Output Vital Signs (last 24 hours): Temp Pulse Resp BP Pulse Ox 97.4 F L 86 20 147/76 99 01/20/18 08:16 01/20/18 08:16 01/20/18 08:16 01/20/18 08:16 01/20/18 08:16 - Medications Medications: Current Medications Albuterol/Ipratropium (Duoneb 3 Mg/0.5 Mg (3 Ml) Ud) 3 ml INH RQID [facility] Last Admin: 01/20/18 07:39 Dose: 3 ml Albuterol/Ipratropium (Duoneb 3 Mg/0.5 Mg (3 Ml) Ud) 3 ml INH RQ4 PRN PRN Reason: Shortness of Breath Azithromycin (Zithromax) 250 mg PO DAILY [facility] PRN Reason: Protocol Stop: 01/21/18 09:01 Last Admin: 01/19/18 09:54 Dose: 250 mg Enoxaparin Sodium (Lovenox) 40 mg SC DAILY [facility] PRN Reason: Protocol Last Admin: 01/19/18 09:52 Dose: 40 mg Insulin Human Lispro (Humalog) 0 units SC ACHS [facility] PRN Reason: Protocol Last Admin: 01/19/18 22:00 Dose: Not Given Lactic Acid (Lac-Hydrin 12% Lotion (225 G)) 1 applic TOP TID [facility] Last Admin: 01/19/18 17:04 Dose: 1 applic Prednisone (Prednisone Tab) 40 mg PO BID [facility] Last Admin: 01/19/18 21:30 Dose: 40 mg - Labs Labs: 01/20/18 05:00 01/20/18 05:00 - Constitutional Appears: Well, No Acute Distress - ENT Exam ENT Exam: Mucous Membranes Moist - Respiratory Exam Respiratory Exam: Rhonchi, Wheezes - Cardiovascular Exam Cardiovascular Exam: REGULAR RHYTHM, +S1, +S2 - GI/Abdominal Exam GI & Abdominal Exam: Soft, Normal Bowel Sounds. absent: Tenderness - Extremities Exam Extremities Exam: Normal Inspection. absent: Pedal Edema - Neurological Exam Neurological Exam: Alert, Awake, Oriented x3 - Skin Skin Exam: Dry, Intact, Warm Assessment and Plan - Assessment and Plan (Free Text) Assessment: 67 y/o male with extensive medical history admitted for acute COPD exacerbation. Plan: 1) Acute COPD exacerbation -s/p Xopenex x3 and 125mg Solu-medrol in ED -prednisone 40mg IV BID, tapering to one dose tomorrow -Duo-nebs RQID -Duo-neb q6H PRN SOB -O2 via NC, 2L, titrate to maintain POX >92% -due to increased sputum production/purulence start Abx -gram stain showed rare gram+ bacili; culture showed Proteus Mirablis -cont Azithromycin 250 PO QD 2) Leukocytosis -WBC 16.0 -afebrile -likely steroid induced -+sputum culture for P. Mirablis 3) NIDDM2 -controlled -last hgb a1c 5.9 on 10/2017 -not on any home medications -Lispo correction scale, hypoglycemia protocol 4) History of Hypertension -asymptomatic -Controlled w/o meds -monitor vitals 5) Hx/o PE -2 years ago -IVC filter in place -DVT ppx while on floors 6) Psoriasis -chronic -pruritic bilateral forearm rash -started on Lac-hydrin 2% lotion 1 application TID 7) DVT Prophylaxis -CrCl: 69 mL/min (adjusted) -Lovenox 40 mg sc daily 8) Code Status: -Full Code 9) Diet -Heart healthy
[2018-01-20] MEDS: Enoxaparin 40 mg Syringe SC SCH (10:12)
[2018-01-20] MEDS: Insulin Lispro (humaLOG) 100 Units/ml Inj SC SCH ×3 (13:45→22:20)
[2018-01-21 06:01] LABS: HEMOGLOBIN 12.7 g/dL (12.0-18.0); MEAN CELL VOLUME 80.4 fl (80.0-94.0); MEAN CORPUSCULAR HGB CONC 32.3 g/dL (33.0-37.0); RBC 4.88 Mil/uL (4.40-5.90); RED CELL DISTRIBUTION WIDTH 14.6 % (11.5-14.5); WHITE BLOOD COUNT 14.9 K/uL (4.8-10.8)
[2018-01-21 06:28] LABS: ALB/GLOB RATIO 1.1 (1.0-2.1); ALBUMIN 3.2 g/dL (3.5-5.0); ALT/SGPT 28 U/L (21-72); AST/SGOT 28 U/L (17-59); BLOOD UREA NITROGEN 26 mg/dl (9-20); CALCIUM 8.4 mg/dL (8.4-10.2); GFR AFRICAN-AMERICAN > 60; GFR NON-AFRICAN AMERICAN > 60
[2018-01-21] MEDS: Insulin Lispro (humaLOG) 100 Units/ml Inj SC SCH ×3 (07:06→17:09)
[2018-01-21] MEDS: Albuterol-Ipratrop 3 mg / 0.5 (3 ml) UD INH SCH ×3 (07:39→15:39)
[2018-01-21] MEDS: Enoxaparin 40 mg Syringe SC SCH (10:13)
[2018-01-21] MEDS ORDERED: Fluticasone-Salmeterol 500-50mcg Diskus IH SCH (10:45)
--- NOTE | 2018-01-21 15:49 | CP.PCM.DIS ---
Provider - Provider Date of Admission: 01/17/18 12:23 Attending physician: Tennille Tavares MD Primary care physician: Dr. Hills Time Spent in preparation of Discharge (in minutes): 35 Hospital Course - Lab Results Lab Results: Micro Results 01/17/18 14:00 Sputum Gram Stain - Final 01/17/18 14:00 Sputum Sputum Culture - Final Proteus Mirabilis Most Recent Lab Values WBC 14.9 K/uL (4.8-10.8) H 01/21/18 05:24 RBC 4.88 Mil/uL (4.40-5.90) 01/21/18 05:24 Hgb 12.7 g/dL (12.0-18.0) 01/21/18 05:24 Hct 39.2 % (35.0-51.0) 01/21/18 05:24 MCV 80.4 fl (80.0-94.0) 01/21/18 05:24 MCH 26.0 pg (27.0-31.0) L 01/21/18 05:24 MCHC 32.3 g/dL (33.0-37.0) L 01/21/18 05:24 RDW 14.6 % (11.5-14.5) H 01/21/18 05:24 Plt Count 274 K/uL (130-400) 01/21/18 05:24 MPV 8.1 fl (7.2-11.7) 01/16/18 11:30 Neut % (Auto) 44.1 % (50.0-75.0) L 01/16/18 11:30 Lymph % (Auto) 36.6 % (20.0-40.0) 01/16/18 11:30 [place] % (Auto) 14.3 % (0.0-10.0) H 01/16/18 11:30 Eos % (Auto) 4.1 % (0.0-4.0) H 01/16/18 11:30 Baso % (Auto) 0.9 % (0.0-2.0) 01/16/18 11:30 Neut # (Auto) 3.5 K/uL (1.8-7.0) 01/16/18 11:30 Lymph # (Auto) 2.9 K/uL (1.0-4.3) 01/16/18 11:30 [place] # (Auto) 1.1 K/uL (0.0-0.8) H 01/16/18 11:30 Eos # (Auto) 0.3 K/uL (0.0-0.7) 01/16/18 11:30 Baso # (Auto) 0.1 K/uL (0.0-0.2) 01/16/18 11:30 Sodium 138 mmol/l (132-148) 01/21/18 05:24 Potassium 4.2 MMOL/L (3.6-5.0) 01/21/18 05:24 Chloride 101 mmol/L (98-107) 01/21/18 05:24 Carbon Dioxide 29 mmol/L (22-30) 01/21/18 05:24 Anion Gap 12 (10-20) 01/21/18 05:24 BUN 26 mg/dl (9-20) H 01/21/18 05:24 Creatinine 0.9 mg/dl (0.8-1.5) 01/21/18 05:24 Est GFR ( Amer) > 60 01/21/18 05:24 Est GFR (Non-Af Amer) > 60 01/21/18 05:24 POC Glucose (mg/dL) 129 mg/dL (65-110) H 01/21/18 11:16 Random Glucose 118 mg/dL (75-110) H 01/21/18 05:24 Calcium 8.4 mg/dL (8.4-10.2) 01/21/18 05:24 Total Bilirubin 0.4 mg/dl (0.2-1.3) 01/21/18 05:24 AST 28 U/L (17-59) 01/21/18 05:24 ALT 28 U/L (21-72) 01/21/18 05:24 Alkaline Phosphatase 54 U/L (38-126) 01/21/18 05:24 Total Protein 6.1 G/DL (6.3-8.2) L 01/21/18 05:24 Albumin 3.2 g/dL (3.5-5.0) L 01/21/18 05:24 Globulin 2.9 gm/dL (2.2-3.9) 01/21/18 05:24 Albumin/Globulin Ratio 1.1 (1.0-2.1) 01/21/18 05:24 - Hospital Course Hospital Course: 67 y/o homeless male former smoker with a PMHx/o COPD, NIDDM2, HTN, PE with IVC filter was admitted for COPD exacerbation. 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 His sputum cultures were positive for Proteus mirablis. He was given 2L O2 via NC, Xopenex x3 Q15min and Solu-medrol 125mg IVP in the ED, and started on IV azithromycin and ceftriaxone. He was later switched to azithromycin 250 mg PO, continued on ceftriaxone and o2, and started on Solu-Mederol 60 mg IV Q12, which was eventually taperd down to 40 mg PO BID then 40mg QD. Once stabilized, he was sent home with a prescription to taper steroids further. - Date & Time of H&P Date of H&P: 01/16/18 Time of H&P: 15:45 Discharge Exam - Head Exam Head Exam: ATRAUMATIC, NORMAL INSPECTION, NORMOCEPHALIC - ENT Exam ENT Exam: Mucous Membranes Moist - Respiratory Exam Respiratory Exam: Rhonchi, Wheezes. absent: Respiratory Distress - Cardiovascular Exam Cardiovascular Exam: REGULAR RHYTHM, +S1, +S2 - GI/Abdominal Exam GI & Abdominal Exam: Normal Bowel Sounds, Soft. absent: Distended - Extremities Exam Extremities exam: normal inspection - Neurological Exam Neurological exam: Alert, Oriented x3 - Skin Skin Exam: Dry, Intact, Warm Discharge Plan - Follow Up Plan Condition: GOOD Patient education suggested?: Yes Instructions: Inhalers, Exacerbation of COPD (DC) Additional Instructions: follow up with [facility] within 1 week any worsening of symptoms, such as worsening breathing, cough or increased mucous return to ER Referrals: [facility] [Outside]
[2018-01-21 16:06] VITALS: BP 122/68; PULSE 83; RESP 20; TEMP 98; O2SAT 99
== END 2018-01-21 17:15 | disposition home or self-care (01) | DRG 88 ==
LOC: H.ER 10:52 → H.ERHOLD 14:10 → H.TEL 15:58 → OBSVTOIN 01-17 12:23
PROVIDERS: ADMIT Family Medicine Geriatric Medicine; ATTEND Family Medicine Geriatric Medicine
DX: J44.1 Chronic obstructive pulmonary disease with (acute) exacerbation (principal); E11.9 Type 2 diabetes mellitus without complications; E78.00 Pure hypercholesterolemia, unspecified; Z86.711 Personal history of pulmonary embolism; Z59.0 Homelessness; L40.9 Psoriasis, unspecified; Z87.891 Personal history of nicotine dependence; T38.0X5A Adverse effect of glucocorticoids and synthetic analogues, initial encounter; D72.829 Elevated white blood cell count, unspecified; I10 Essential (primary) hypertension

== ENCOUNTER 2018-02-11 16:34 | Inpatient (IN) | payer SELFPAY ==
[2018-02-11] MEDS ORDERED: Albuterol-Ipratrop 3 mg / 0.5 (3 ml) UD INH STA ×2 (17:12)
[2018-02-11] MEDS ORDERED: Sodium Chloride 0.9% 500 ML IV STA (17:12)
--- NOTE | 2018-02-11 17:34 | ED PDOC ---
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 Patient also reports a productive cough and congestion and states chest pain is due to SOB. Patient further states symptoms are similar to previous episodes of COPD. He denies any fever, chills, nausea, vomit, diarrhea, abdominal pain, headache, dizziness, weakness, numbness or tingling. No further medical complaints. Patient is non domicile. PMD: None provided. Past Medical History Reviewed: Historical Data, Nursing Documentation, Vital Signs Vital Signs: Last Vital Signs Temp 99.1 F 02/11/18 16:46 Pulse 85 02/11/18 16:46 Resp 20 02/11/18 16:46 BP 137/70 02/11/18 16:46 Pulse Ox 99 02/11/18 18:18 - Medical History PMH: Asthma, CHF, COPD (asthma), Diabetes, HTN, Hypercholesterolemia, Pneumonia Denies: HIV, Chronic Kidney Disease - Surgical History Surgical History: No Surg Hx - Family History Family History: States: [place], Diabetes - Immunization History Hx Tetanus Toxoid Vaccination: No Hx Influenza Vaccination: No Hx Pneumococcal Vaccination: No - Home Medications Home Medications: Ambulatory Orders Medication Instructions Recorded Albuterol HFA [Ventolin HFA 90 2 puff IH Q4 PRN #1 inh 02/09/18 mcg/actuation (8 g)] Budesonide [Pulmicort Respules] 0.5 mg INH RQ12 30 Days #60 neb 02/09/18 Montelukast [Singulair] 10 mg PO HS #30 tab 02/09/18 predniSONE [predniSONE Tab] 20 mg PO DAILY 5 Days tab 02/09/18 - Allergies Allergies/Adverse Reactions: Allergies Allergy/AdvReac Type Severity Reaction Status Date / Time No Known Allergies Allergy Verified 02/04/18 19:29 Review of Systems ROS Statement: Except As Marked, All Systems Reviewed And Found Negative Constitutional: Negative for: Fever, Chills ENT: Positive for: Nose Congestion Cardiovascular: Positive for: Chest Pain Respiratory: Positive for: Cough, Shortness of Breath Gastrointestinal: Negative for: Nausea, Vomiting, Abdominal Pain, Diarrhea Neurological: Negative for: Weakness, Numbness (tingling), Headache, Dizziness Physical Exam - Reviewed Nursing Documentation Reviewed: Yes Vital Signs Reviewed: Yes - Physical Exam Appears: Positive for: Non-toxic Head Exam: Positive for: ATRAUMATIC, NORMAL INSPECTION, NORMOCEPHALIC Skin: Positive for: Normal Color, Warm, Dry Eye Exam: Positive for: Normal appearance, EOMI, PERRL ENT: Positive for: Nasal Congestion Neck: Positive for: Painless ROM Cardiovascular/Chest: Positive for: Regular Rate, Rhythm. Negative for: Murmur Respiratory: Positive for: Decreased Breath Sounds, Wheezing (b/l). Negative for: Accessory Muscle Use Gastrointestinal/Abdominal: Positive for: Normal Exam, Soft. Negative for: Tenderness Back: Positive for: Normal Inspection. Negative for: L CVA Tenderness, R CVA Tenderness Extremity: Positive for: Normal ROM (upper and lower extremities), Other ( Chronic venous stasis b/l ). Negative for: Tenderness, Deformity Neurologic/Psych: Positive for: Alert, Oriented. Negative for: Motor/Sensory Deficits - Laboratory Results Result Diagrams: 02/11/18 18:06 - ECG O2 Sat by Pulse Oximetry: 99 (RA) Pulse Ox Interpretation: Normal - Progress ED Course And Treament: 1850: Dr. Hsu to take over care. Fu on labs. Medical Decision Making Medical Decision Making: Time: 17:05 Initial Impression: COPD exacerbation Initial Plan: --VBG --EKG --B-Type Natriuretic Peptide --CMP --Troponin I --CBC w/ differential --PTT --PT --Chest portable [RAD] --Duoneb 3 ml INH --Sodium Chloride 500 ml IV 100 mls/hr --Reevaluation 17:38 CXR FINDINGS: LUNGS: No active pulmonary disease. PLEURA: No significant pleural effusion identified, no pneumothorax apparent. CARDIOVASCULAR: No radiographic findings to suggest acute or significant cardiovascular disease. OSSEOUS STRUCTURES: No significant abnormalities. VISUALIZED UPPER ABDOMEN: Normal. OTHER FINDINGS: None. IMPRESSION: No active disease. No significant interval change compared to the prior examination(s). ----- Scribe Attestation: Documented by Fazal Mccray, acting as a scribe for aRs Conti MD. Provider Scribe Attestation: All medical record entries made by the Scribe were at my direction and personally dictated by me. I have reviewed the chart and agree that the record accurately reflects my personal performance of the history, physical exam, medical decision making, and the department course for this patient. I have also personally directed, reviewed, and agree with the discharge instructions and disposition. Disposition - Clinical Impression Clinical Impression: COPD exacerbation - Patient ED Disposition Is Patient to be Admitted: Transfer of Care - Disposition Disposition Time: 18:50 Condition: FAIR Patient Signed Over To: Maverick Hsu
--- NOTE | 2018-02-11 17:46 | RAD ---
Date of service: 02/11/2018 HISTORY: Dyspnea. COMPARISON: 01/16/2018. FINDINGS: LUNGS: No active pulmonary disease. PLEURA: No significant pleural effusion identified, no pneumothorax apparent. CARDIOVASCULAR: No radiographic findings to suggest acute or significant cardiovascular disease. OSSEOUS STRUCTURES: No significant abnormalities. VISUALIZED UPPER ABDOMEN: Normal. OTHER FINDINGS: None. IMPRESSION: No active disease. No significant interval change compared to the prior examination(s).
[2018-02-11] MEDS ORDERED: Albuterol-Ipratrop 3 mg / 0.5 (3 ml) UD ONE (17:50)
[2018-02-11] MEDS: Albuterol-Ipratrop 3 mg / 0.5 (3 ml) UD IH STA ×2 (18:12→18:30)
[2018-02-11 18:14] LABS: BASO # 0.1 K/uL (0.0-0.2); BASO % 0.5 % (0.0-2.0); EOS # 0.2 K/uL (0.0-0.7); EOS % 1.9 % (0.0-4.0); HEMOGLOBIN 12.7 g/dL (12.0-18.0); LYMPH % 24.1 % (20.0-40.0); MEAN CELL VOLUME 80.9 fl (80.0-94.0); MEAN CORPUSCULAR HEMOGLOBIN 26.2 pg (27.0-31.0); MEAN CORPUSCULAR HGB CONC 32.4 g/dL (33.0-37.0); MEAN PLATELET VOLUME 8.3 fl (7.2-11.7); MONO # 1.4 K/uL (0.0-0.8); MONO % 11.6 % (0.0-10.0); NEUT # 7.6 K/uL (1.8-7.0); NEUT % 61.9 % (50.0-75.0); NRBC % 0.1 % (0.0-0.0); RBC 4.83 Mil/uL (4.40-5.90); RED CELL DISTRIBUTION WIDTH 16.3 % (11.5-14.5); WHITE BLOOD COUNT 12.2 K/uL (4.8-10.8)
[2018-02-11 18:29] LABS: PARTIAL THROMBOPLASTIN TIME 23.4 Seconds (25.6-37.1); PROTHROMBIN TIME 11.1 Seconds (9.8-13.1)
[2018-02-11 18:59] LABS: ABG ALLEN TEST YES; ARTERIAL BLOOD GAS O2 SAT 100.5 % (95-98); ARTERIAL BLOOD GAS PCO2 37 mm/Hg (35-45); ARTERIAL BLOOD GAS PH 7.48 (7.35-7.45); ARTERIAL BLOOD GAS PO2 96 mm/Hg (80-100); ARTERIAL BLOOD GAS TCO2 28.7 mmol/L (22-28)
--- NOTE | 2018-02-11 19:05 | ED PDOC ---
- Laboratory Results Result Diagrams: 02/11/18 18:06 02/11/18 18:50 - ECG O2 Sat by Pulse Oximetry: 99 (RA) Medical Decision Making Medical Decision Makin:00 -Patient endorsed to provider by Dr. Conti pending labs, troponin and reevaluation. 20:52 -On reevaluation patient reports no improvement and is still short of breath, wheezing and coughing. 21:02 -[facility] for chest pain and COPD exacerbation. Disposition Discussed With : Kelvin Chung Counseled Patient/Family Regarding: Studies Performed, Diagnosis - Clinical Impression Clinical Impression: COPD exacerbation, Chest pain - POA Present On Arrival: None - Disposition Disposition: Hospitalized as Observation Patient Disposition Time: 21:00 Condition: FAIR
[2018-02-11 19:23] LABS: ALB/GLOB RATIO 1.2 (1.0-2.1); ALBUMIN 3.2 g/dL (3.5-5.0); ALT/SGPT 30 U/L (21-72); AST/SGOT 26 U/L (17-59); BLOOD UREA NITROGEN 43 mg/dl (9-20); CALCIUM 8.2 mg/dL (8.4-10.2); GFR AFRICAN-AMERICAN > 60; GFR NON-AFRICAN AMERICAN > 60
[2018-02-11 19:24] LABS: B-TYPE NATRIURETIC PEPTIDE 341 pg/ml (0-900)
--- NOTE | 2018-02-11 21:33 | CP.PCM.HP ---
<SheldonKelvin - Last Filed: 02/12/18 05:23> History of Present Illness - History of Present Illness History of Present Illness: Hx taken from patient and medical records Full code PMD: None(Patient has been referred multiple times to 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 Patient has multiple ER and short hosp admission to [facility] and [facility] due to similar symptoms. Patient states that he was not taking any medication and that he ran out of the albuterol inh 2 days ago. States that Yesterday he felt warm and had chills. He also c/o chest tightness that radiates to his "whole left hemiabdomen" and worsen with deep inspiration. He reports similar symptoms in past exacerbations. He denies palpitations, left arm/jaw pain, vomiting or nausea. No other complaints. PMD: NO PMD. No notes from clinic found in [facility] Allergies: NKDA Meds: No taking any medications PSHx: IVC filter placement SocialHx: former smoker, quit 1 yr ago. Formerly smoked 3-4 packs/day. Former alcohol abuser. Denies illicit drug use FamilyHx: sister with diabetes. no hx of heart dz or cancer Next of kin: son, lives in [place] Present on Admission - Present on Admission Any Indicators Present on Admission: No Review of Systems - Review of Systems All systems: reviewed and no additional remarkable complaints except (Those described on HPI) Past Patient History - Infectious Disease Hx of Infectious Diseases: None - Tetanus Immunizations Tetanus Immunization: Unknown - Past Medical History & Family History Past Medical History?: Yes - Past Social History Smoking Status: Former Smoker Alcohol: Occasional Drugs: Denies Home Situation {Lives}: Homeless - CARDIAC Hx Hypercholesterolemia: Yes Hx Hypertension: Yes - PULMONARY Hx Chronic Obstructive Pulmonary Disease (COPD): Yes Hx Pneumonia: Yes - NEUROLOGICAL Hx Neurological Disorder: No - HEENT Hx HEENT Problems: No - RENAL Hx Chronic Kidney Disease: No - ENDOCRINE/METABOLIC Hx Endocrine Disorders: Yes Hx Diabetes Mellitus Type 2: Yes - HEMATOLOGICAL/ONCOLOGICAL Hx Human Immunodeficiency Virus (HIV): No - INTEGUMENTARY Hx Dermatological Problems: Yes (GENERALIZED SKIN PSORIASIS) Hx Psoriasis: Yes - MUSCULOSKELETAL/RHEUMATOLOGICAL Hx Musculoskeletal Disorders: No Hx Falls: No - GASTROINTESTINAL Hx Gastrointestinal Disorders: Yes Other/Comment: GI bleeding - GENITOURINARY/GYNECOLOGICAL Hx Genitourinary Disorders: No - PSYCHIATRIC Hx Psychophysiologic Disorder: No Hx Substance Use: No - SURGICAL HISTORY Hx Surgeries: Yes Other/Comment: IVC Filter - ANESTHESIA Hx Anesthesia: Yes Hx Anesthesia Reactions: No Hx Malignant Hyperthermia: No Meds Allergies/Adverse Reactions: Allergies Allergy/AdvReac Type Severity Reaction Status Date / Time No Known Allergies Allergy Verified 02/04/18 19:29 Physical Exam - Constitutional Appears: Non-toxic, In Acute Distress (MIld SOB), Other (Disheveled) - Head Exam Head Exam: ATRAUMATIC, NORMAL INSPECTION - Eye Exam Eye Exam: EOMI, PERRL - ENT Exam ENT Exam: Mucous Membranes Moist - Neck Exam Neck exam: Positive for: Full Rom. Negative for: Lymphadenopathy, Tenderness - Respiratory Exam Respiratory Exam: Wheezes (B/L), Respiratory Distress (Mild), NORMAL BREATHING PATTERN. absent: Accessory Muscle Use, Chest Wall Tenderness, Decreased Breath Sounds, Rales, Rhonchi - Cardiovascular Exam Cardiovascular Exam: REGULAR RHYTHM, +S1, +S2. absent: Gallop, Systolic Murmur - GI/Abdominal Exam GI & Abdominal Exam: Normal Bowel Sounds, Soft. absent: Distended, Firm, Rebound, Rigid - Extremities Exam Extremities exam: Positive for: normal capillary refill, pedal edema (Mild). Negative for: calf tenderness - Neurological Exam Neurological exam: Alert, CN II-XII Intact, Oriented x3 - Psychiatric Exam Psychiatric exam: Normal Affect, Normal Mood - Skin Skin Exam: Dry, Rash, Warm Results - Vital Signs Recent Vital Signs: Last Vital Signs Temp 99.1 F 02/11/18 16:46 Pulse 85 02/11/18 16:46 Resp 20 02/11/18 16:46 BP 137/70 02/11/18 16:46 Pulse Ox 99 02/11/18 21:03 - Labs Result Diagrams: 02/11/18 18:06 02/11/18 18:50 Labs: Laboratory Results - last 24 hr 02/11/18 02/11/18 02/11/18 18:06 18:06 18:47 WBC 12.2 H RBC 4.83 Hgb 12.7 Hct 39.1 MCV 80.9 MCH 26.2 L MCHC 32.4 L RDW 16.3 H Plt Count 240 MPV 8.3 Neut % (Auto) 61.9 Lymph % (Auto) 24.1 [place] % (Auto) 11.6 H Eos % (Auto) 1.9 Baso % (Auto) 0.5 Neut # (Auto) 7.6 H Lymph # (Auto) 3.0 [place] # (Auto) 1.4 H Eos # (Auto) 0.2 Baso # (Auto) 0.1 PT 11.1 INR 1.0 APTT 23.4 L pCO2 37 pO2 96 HCO3 28.0 ABG pH 7.48 H ABG Total CO2 28.7 H ABG O2 Saturation 100.5 H ABG Base Excess 4.0 H Slim Test Yes ABG Potassium 4.0 A-a O2 Difference 7.0 Sodium 133.0 Chloride 101.0 Glucose 141 H Lactate 0.7 FiO2 21.0 Potassium Carbon Dioxide Anion Gap BUN Creatinine Est GFR ( Amer) Est GFR (Non-Af Amer) Random Glucose Calcium Magnesium Total Bilirubin AST ALT Alkaline Phosphatase Troponin I NT-Pro-B Natriuret Pep Total Protein Albumin Globulin Albumin/Globulin Ratio Arterial Blood Potassium 4.0 02/11/18 18:50 WBC RBC Hgb Hct MCV MCH MCHC RDW Plt Count MPV Neut % (Auto) Lymph % (Auto) [place] % (Auto) Eos % (Auto) Baso % (Auto) Neut # (Auto) Lymph # (Auto) [place] # (Auto) Eos # (Auto) Baso # (Auto) PT INR APTT pCO2 pO2 HCO3 ABG pH ABG Total CO2 ABG O2 Saturation ABG Base Excess Slim Test ABG Potassium A-a O2 Difference Sodium 135 Chloride 101 Glucose Lactate FiO2 Potassium 4.5 Carbon Dioxide 27 Anion Gap 12 BUN 43 H Creatinine 1.2 Est GFR ( Amer) > 60 Est GFR (Non-Af Amer) > 60 Random Glucose 110 Calcium 8.2 L Magnesium 2.0 Total Bilirubin 0.4 AST 26 ALT 30 Alkaline Phosphatase 57 Troponin I 0.0200 NT-Pro-B Natriuret Pep 341 Total Protein 5.9 L Albumin 3.2 L Globulin 2.7 Albumin/Globulin Ratio 1.2 Arterial Blood Potassium Assessment & Plan - Assessment and Plan (Free Text) Assessment: 67 y/o male with extensive medical history admitted for acute COPD exacerbation. Plan: Acute COPD exacerbation bronchitis type -Admit tele for Obs -Wheezing but stable -s/p Duoneb x3 and 125mg Solu-medrol in ED -c/w solumedrol 60 mg Q8h and taper as needed -IV NS maintenance -Duo-nebs q4h PRN -Guaifenesin Q12h -O2 via NC, 2L PRN -CXR no active disease -Due to increased sputum production/purulence start Augmentin 875mg Q12h Leukocytosis -Chronic -Likely steroids side effect(Patient has multiple ER visits and short hosp admissions where he has been given steroids) Chest pain -Acute, likely due to coughing, Bronchitis -Trop x1 normal -EKG NSR -F/U trops x2 NIDDM2 -controlled -last hgb a1c 5.9 on 10/2017 -not on any home medications -ACB, Hypoglycemia protocol, ISS low dose History of Hypertension -asymptomatic -Controlled w/o meds -monitor vitals Psoriasis -chronic -not on treatment -Apply lac-hydrin to legs and arms Prophylaxis -DVT: Lovenox 40 mg sc HS -AAD: Florastor <Eloina Aldana - Last Filed: 02/12/18 09:09> Results - Vital Signs Recent Vital Signs: Last Vital Signs Temp 97.5 F L 02/12/18 08:00 Pulse 74 02/12/18 08:00 Resp 22 02/12/18 08:00 BP 165/78 H 02/12/18 08:00 Pulse Ox 96 02/12/18 08:00 - Labs Result Diagrams: 02/12/18 05:20 02/12/18 05:20 Labs: Laboratory Results - last 24 hr 02/11/18 02/11/18 02/11/18 18:06 18:06 18:47 WBC 12.2 H RBC 4.83 Hgb 12.7 Hct 39.1 MCV 80.9 MCH 26.2 L MCHC 32.4 L RDW 16.3 H Plt Count 240 MPV 8.3 Neut % (Auto) 61.9 Lymph % (Auto) 24.1 [place] % (Auto) 11.6 H Eos % (Auto) 1.9 Baso % (Auto) 0.5 Neut # (Auto) 7.6 H Lymph # (Auto) 3.0 [place] # (Auto) 1.4 H Eos # (Auto) 0.2 Baso # (Auto) 0.1 PT 11.1 INR 1.0 APTT 23.4 L pCO2 37 pO2 96 HCO3 28.0 ABG pH 7.48 H ABG Total CO2 28.7 H ABG O2 Saturation 100.5 H ABG Base Excess 4.0 H Slim Test Yes ABG Potassium 4.0 A-a O2 Difference 7.0 Sodium 133.0 Chloride 101.0 Glucose 141 H Lactate 0.7 FiO2 21.0 Potassium Carbon Dioxide Anion Gap BUN Creatinine Est GFR ( Amer) Est GFR (Non-Af Amer) Random Glucose Calcium Magnesium Total Bilirubin AST ALT Alkaline Phosphatase Troponin I NT-Pro-B Natriuret Pep Total Protein Albumin Globulin Albumin/Globulin Ratio Arterial Blood Potassium 4.0 02/11/18 02/12/18 02/12/18 18:50 01:14 05:20 WBC 12.9 H RBC 4.75 Hgb 12.5 Hct 38.7 MCV 81.6 MCH 26.3 L MCHC 32.3 L RDW 15.9 H Plt Count 233 MPV Neut % (Auto) Lymph % (Auto) [place] % (Auto) Eos % (Auto) Baso % (Auto) Neut # (Auto) Lymph # (Auto) [place] # (Auto) Eos # (Auto) Baso # (Auto) PT INR APTT pCO2 pO2 HCO3 ABG pH ABG Total CO2 ABG O2 Saturation ABG Base Excess Slim Test ABG Potassium A-a O2 Difference Sodium 135 Chloride 101 Glucose Lactate FiO2 Potassium 4.5 Carbon Dioxide 27 Anion Gap 12 BUN 43 H Creatinine 1.2 Est GFR ( Amer) > 60 Est GFR (Non-Af Amer) > 60 Random Glucose 110 Calcium 8.2 L Magnesium 2.0 Total Bilirubin 0.4 AST 26 ALT 30 Alkaline Phosphatase 57 Troponin I 0.0200 0.0120 NT-Pro-B Natriuret Pep 341 Total Protein 5.9 L Albumin 3.2 L Globulin 2.7 Albumin/Globulin Ratio 1.2 Arterial Blood Potassium 02/12/18 02/12/18 05:20 05:20 WBC RBC Hgb Hct MCV MCH MCHC RDW Plt Count MPV Neut % (Auto) Lymph % (Auto) [place] % (Auto) Eos % (Auto) Baso % (Auto) Neut # (Auto) Lymph # (Auto) [place] # (Auto) Eos # (Auto) Baso # (Auto) PT INR APTT pCO2 pO2 HCO3 ABG pH ABG Total CO2 ABG O2 Saturation ABG Base Excess Slim Test ABG Potassium A-a O2 Difference Sodium 136 Chloride 102 Glucose Lactate FiO2 Potassium 4.6 Carbon Dioxide 24 Anion Gap 15 BUN 33 H Creatinine 0.9 Est GFR ( Amer) > 60 Est GFR (Non-Af Amer) > 60 Random Glucose 384 H Calcium 8.2 L Magnesium Total Bilirubin AST ALT Alkaline Phosphatase Troponin I < 0.0120 NT-Pro-B Natriuret Pep Total Protein Albumin Globulin Albumin/Globulin Ratio Arterial Blood Potassium Attending/Attestation - Attestation I have personally seen and examined this patient.: Yes I have fully participated in the care of the patient.: Yes I have reviewed all pertinent clinical information: Yes
[2018-02-11] MEDS: Amoxicillin-Clav 875-125 mg Tab PO SCH (23:12)
[2018-02-11] MEDS: Budesonide 0.5 mg/2 ml Inhal Susp UD INH SCH (23:12)
[2018-02-11] MEDS: guaiFENesin 600 mg ER Tab PO SCH (23:21)
[2018-02-12] MEDS ORDERED: methylPREDNISolone 60 MG in Sodium Chloride 0.9% 50 ML IVPB SCH (01:00)
[2018-02-12] MEDS ORDERED: Albuterol-Ipratrop 3 mg / 0.5 (3 ml) UD ONE ×2 (01:14→09:23)
[2018-02-12] MEDS: Albuterol-Ipratrop 3 mg / 0.5 (3 ml) UD INH PRN ×2 (01:18→09:24)
[2018-02-12 07:22] LABS: HEMOGLOBIN 12.5 g/dL (12.0-18.0); MEAN CELL VOLUME 81.6 fl (80.0-94.0); MEAN CORPUSCULAR HEMOGLOBIN 26.3 pg (27.0-31.0); MEAN CORPUSCULAR HGB CONC 32.3 g/dL (33.0-37.0); RBC 4.75 Mil/uL (4.40-5.90); RED CELL DISTRIBUTION WIDTH 15.9 % (11.5-14.5); WHITE BLOOD COUNT 12.9 K/uL (4.8-10.8)
[2018-02-12] MEDS ORDERED: Sodium Chloride 3% for Inhalation 4 ML VIAL.NEB IH PRN (07:30)
[2018-02-12 07:38] LABS: BLOOD UREA NITROGEN 33 mg/dl (9-20); CALCIUM 8.2 mg/dL (8.4-10.2); GFR AFRICAN-AMERICAN > 60; GFR NON-AFRICAN AMERICAN > 60
[2018-02-12] MEDS ORDERED: Amoxicillin-Clav 875-125 mg Tab PO ONE (09:24)
[2018-02-12] MEDS: Amoxicillin-Clav 875-125 mg Tab PO SCH ×2 (09:25→22:09)
[2018-02-12] MEDS: Sodium Chloride 0.9% 1,000 ML IV SCH (09:26)
[2018-02-12] MEDS: guaiFENesin 600 mg ER Tab PO SCH ×2 (09:59→21:23)
[2018-02-12] MEDS: Budesonide 0.5 mg/2 ml Inhal Susp UD INH SCH (09:59)
[2018-02-12] MEDS ORDERED: Glucagon Recombinant 1 mg Inj IM PRN (10:27)
[2018-02-12] MEDS ORDERED: Dextrose 50% SYRINGE Inj (50 ml) IV PRN (10:27)
--- NOTE | 2018-02-12 11:28 | CP.PCM.PN ---
<Shailesh Ramires - Last Filed: 02/12/18 12:37> Subjective - Date & Time of Evaluation Date of Evaluation: 02/12/18 Time of Evaluation: 09:20 - Subjective Subjective: Patient evaluated and examined at bedside in AM. SOB improved from yesterday with Duoneb and solumedrol but still has SOB and wheezing. Cough productive of brownish/greenish sputum. CXR with no acute disease. Chest pain present on left side of chest and left upper abdomen. Troponins x 3 WNL and EKG NSR. Patient also reports dysuria and blood in urine after urination. Denies fever, chills, nausea, vomiting, diarrhea, constipation, back pain or LE edema. Objective - Vital Signs/Intake and Output Vital Signs (last 24 hours): Temp Pulse Resp BP Pulse Ox 97.5 F L 74 22 165/78 H 96 02/12/18 10:40 02/12/18 10:40 02/12/18 10:40 02/12/18 10:40 02/12/18 08:00 Intake and Output: 02/12/18 02/12/18 06:59 18:59 Intake Total 1999 Balance 1999 - Medications Medications: Current Medications Acetaminophen (Tylenol 325mg Tab) 650 mg PO Q6 PRN PRN Reason: Pain, Mild (1-3) Albuterol/Ipratropium (Duoneb 3 Mg/0.5 Mg (3 Ml) Ud) 3 ml INH RQ4 [facility] Amoxicillin/Clavulanate Potassium (Augmentin 875 Mg-125 Mg Tab) 1 tab PO Q12 [facility] PRN Reason: Protocol Last Admin: 02/12/18 09:25 Dose: 1 tab Budesonide (Pulmicort Respules) 0.5 mg INH Q12H [facility] Last Admin: 02/12/18 09:59 Dose: 0.5 mg Dextrose (Dextrose 50% Inj) 0 ml IV STAT PRN; Protocol PRN Reason: Hypoglycemia Protocol Dextrose (Glutose 15) 0 gm PO ONCE PRN; Protocol PRN Reason: Hypoglycemia Protocol Enoxaparin Sodium (Lovenox) 40 mg SC HS [facility] PRN Reason: Protocol Famotidine (Pepcid) 20 mg PO BID [facility] Last Admin: 02/12/18 09:30 Dose: 20 mg Glucagon (Glucagen Diagnostic Kit) 0 mg IM STAT PRN; Protocol PRN Reason: Hypoglycemia Protocol Hunterfenesin (Mucinex La) 600 mg PO Q12 [facility] Last Admin: 02/12/18 09:59 Dose: 600 mg Sodium Chloride (Sodium Chloride 0.9%) 1,000 mls @ 110 mls/hr IV .Q9H6M [facility] Last Admin: 02/12/18 09:26 Dose: 110 mls/hr Insulin Human Lispro (Humalog) 0 units SC ACHS [facility] PRN Reason: Protocol Lactic Acid (Lac-Hydrin 12% Lotion (225 G)) 1 applic TOP BID [facility] Last Admin: 02/12/18 09:29 Dose: 12 % Methylprednisolone (Solu-Medrol) 60 mg IV Q8H [facility] Last Admin: 02/12/18 10:01 Dose: 60 mg Montelukast Sodium (Singulair) 10 mg PO HS [facility] Last Admin: 02/11/18 23:12 Dose: 10 mg - Labs Labs: 02/12/18 05:20 02/12/18 05:20 PT 11.1 Seconds (9.8-13.1) 02/11/18 18:06 INR 1.0 (0.9-1.2) 02/11/18 18:06 APTT 23.4 Seconds (25.6-37.1) L 02/11/18 18:06 - Constitutional Appears: Non-toxic, No Acute Distress - Head Exam Head Exam: ATRAUMATIC, NORMAL INSPECTION, NORMOCEPHALIC - Eye Exam Eye Exam: EOMI, Normal appearance, PERRL Pupil Exam: NORMAL ACCOMODATION, PERRL - ENT Exam ENT Exam: Mucous Membranes Moist Additional comments: White plaques on buccal mucosa. - Neck Exam Neck Exam: absent: Tenderness - Respiratory Exam Respiratory Exam: Chest Wall Tenderness, Wheezes. absent: Accessory Muscle Use , Decreased Breath Sounds, Rales Additional comments: Left sided chest wall tenderness - Cardiovascular Exam Cardiovascular Exam: REGULAR RHYTHM, +S1, +S2. absent: Murmur - GI/Abdominal Exam GI & Abdominal Exam: Soft, Normal Bowel Sounds. absent: Distended, Firm, Guarding, Rigid - Back Exam Back Exam: absent: CVA tenderness (L), CVA tenderness (R) - Neurological Exam Neurological Exam: Alert, Awake, Oriented x3 - Psychiatric Exam Psychiatric exam: Normal Affect, Normal Mood - Skin Skin Exam: Dry, Intact, Normal Color Additional comments: Hyperpigmented patch of B/L UE and LE with multiple silvery dry plaque. Assessment and Plan - Assessment and Plan (Free Text) Assessment: 67 y/o homeless male with a PMHx/o COPD, NIDDM2, HTN, PE with IVC filter admitted for acute COPD exacerbation. Plan: Acute COPD exacerbation bronchitis type -Admit to Med/surg -Wheezing but stable -s/p Duoneb x3 and 125mg Solu-medrol in ED -IV NS maintenance -Duo-nebs q4h [facility] -c/w solumedrol 60 mg Q8h and taper as needed - Albuterol Q4hr prn -Guaifenesin Q12h -O2 via NC, 2L PRN -CXR no active disease -Due to increased sputum production/purulence start Augmentin 875mg Q12h -Will monitor CBC, CMP Leukocytosis -Chronic -Last WBC 12.9 -Likely steroids side effect(Patient has multiple ER visits and short hosp admissions where he has been given steroids) Chest pain -Acute, + tenderness -likely due to coughing, costochondritis and Bronchitis -Trop x3 normal -EKG NSR -Tylenol 650 mg Q6hr PRN Dysuria -UA Ordered -Urine culture Ordered -GC/Chlamydia Ordered -F/U UA/UC/GC/Chl Hypertension -asymptomatic -Lisinopril 5 mg PO JEFFREY -monitor vitals Oral Thrush - Nystatin 5 mg PO swish and swallow - Will monitor NIDDM2 -controlled -last hgb a1c 7.3 on 01/2018 -not on any home medications -ACB, Hypoglycemia protocol, ISS low dose Psoriasis -chronic -not on treatment -Apply lac-hydrin to legs and arms Prophylaxis -DVT: Lovenox 40 mg sc HS -AAD: Florastor <Eloina Aldana - Last Filed: 02/13/18 09:04> Objective - Vital Signs/Intake and Output Vital Signs (last 24 hours): Temp Pulse Resp BP Pulse Ox 97.9 F 79 20 146/72 99 02/13/18 08:24 02/13/18 08:49 02/13/18 08:24 02/13/18 08:49 02/13/18 08:24 - Medications Medications: Current Medications Acetaminophen (Tylenol 325mg Tab) 650 mg PO Q6 PRN PRN Reason: Pain, Mild (1-3) Albuterol Sulfate (Albuterol 0.083% Inhal Susan (2.5 Mg/3 Ml) Ud) 2.5 mg INH RQ4 PRN PRN Reason: Shortness of Breath Albuterol/Ipratropium (Duoneb 3 Mg/0.5 Mg (3 Ml) Ud) 3 ml INH RQ4 [facility] Last Admin: 02/13/18 07:10 Dose: 3 ml Amoxicillin/Clavulanate Potassium (Augmentin 875 Mg-125 Mg Tab) 1 tab PO Q12 [facility] PRN Reason: Protocol Last Admin: 02/13/18 08:48 Dose: 1 tab Budesonide (Pulmicort Respules) 0.5 mg INH RBID [facility] Last Admin: 02/13/18 07:09 Dose: 0.5 mg Dextrose (Dextrose 50% Inj) 0 ml IV STAT PRN; Protocol PRN Reason: Hypoglycemia Protocol Dextrose (Glutose 15) 0 gm PO ONCE PRN; Protocol PRN Reason: Hypoglycemia Protocol Enoxaparin Sodium (Lovenox) 40 mg SC HS [facility] PRN Reason: Protocol Last Admin: 02/12/18 21:18 Dose: 40 mg Famotidine (Pepcid) 20 mg PO BID [facility] Last Admin: 02/13/18 08:50 Dose: 20 mg Glucagon (Glucagen Diagnostic Kit) 0 mg IM STAT PRN; Protocol PRN Reason: Hypoglycemia Protocol Guaifenesin (Mucinex La) 600 mg PO Q12 [facility] Last Admin: 02/13/18 08:49 Dose: 600 mg Sodium Chloride (Sodium Chloride 0.9%) 1,000 mls @ 110 mls/hr IV .Q9H6M [facility] Last Admin: 02/13/18 01:30 Dose: Not Given Insulin Human Lispro (Humalog) 0 units SC ACHS [facility] PRN Reason: Protocol Last Admin: 02/13/18 08:48 Dose: 3 units Lactic Acid (Lac-Hydrin 12% Lotion (225 G)) 1 applic TOP BID [facility] Last Admin: 02/12/18 17:40 Dose: 12 % Lisinopril (Zestril) 5 mg PO DAILY [facility] Last Admin: 02/13/18 08:49 Dose: 5 mg Methylprednisolone (Solu-Medrol) 60 mg IV Q8H [facility] Last Admin: 02/13/18 01:37 Dose: 60 mg Montelukast Sodium (Singulair) 10 mg PO HS [facility] Last Admin: 02/12/18 21:17 Dose: 10 mg Nystatin (Nystatin Oral Susp) 5 ml PO QID [facility] Last Admin: 02/13/18 08:49 Dose: 5 ml - Labs Labs: 02/12/18 05:20 02/12/18 05:20 PT 11.1 Seconds (9.8-13.1) 02/11/18 18:06 INR 1.0 (0.9-1.2) 02/11/18 18:06 APTT 23.4 Seconds (25.6-37.1) L 02/11/18 18:06 Attending/Attestation - Attestation I have personally seen and examined this patient.: Yes I have fully participated in the care of the patient.: Yes I have reviewed all pertinent clinical information, including history, physical exam and plan: Yes Notes (Text): 02/13/18 09:03 Attending Note - ATTESTATION - Patient seen and examined. lungs diffuse exp wheezes. CV RSR Discussed with resident. Agree with findings and plan.
[2018-02-12] MEDS ORDERED: Albuterol 0.083% Inhal Sol (2.5 mg/3 mL) UD INH PRN (12:19)
[2018-02-12] MEDS ORDERED: Nystatin 100,000 Units/ml Oral Susp 5 ml UD PO SCH (13:00)
[2018-02-12] MEDS: Nystatin 100,000 Units/ml Oral Susp 5 ml UD PO SCH ×3 (14:34→21:17)
--- NOTE | 2018-02-12 14:54 | CARD ---
APPROVED REPORT Date of service: 02/11/2018 EKG Measurement Heart [id number] <Conclusion> Normal sinus rhythm Normal ECG
[2018-02-12] MEDS: Albuterol-Ipratrop 3 mg / 0.5 (3 ml) UD INH SCH ×3 (15:21→23:57)
[2018-02-12] MEDS: Insulin Lispro (humaLOG) 100 Units/ml Inj SC SCH ×2 (17:37→21:41)
[2018-02-12] MEDS: Enoxaparin 40 mg Syringe SC SCH (21:18)
[2018-02-13] MEDS: Sodium Chloride 0.9% 1,000 ML IV SCH ×3 (01:30→20:57)
[2018-02-13] MEDS: Albuterol-Ipratrop 3 mg / 0.5 (3 ml) UD INH SCH ×5 (04:36→19:55)
[2018-02-13] MEDS: Budesonide 0.5 mg/2 ml Inhal Susp UD INH SCH ×3 (07:09→19:54)
--- NOTE | 2018-02-13 07:58 | CP.PCM.PN ---
<Jesus Jenkins - Last Filed: 02/13/18 11:03> Subjective - Date & Time of Evaluation Date of Evaluation: 02/13/18 Time of Evaluation: 08:25 - Subjective Subjective: Patient seen and examined this morning at bedside. There are no acute events overnight, NAD. Patient reports breathing is improved but continues to have productive cough which patient reports is also improved. Patient reports dysuria improved and denies hematuria. Patient denies headaches, chest pain, SOB, abdominal pain, nausea, vomiting, diarrhea, or fever. Objective - Vital Signs/Intake and Output Vital Signs (last 24 hours): Temp Pulse Resp BP Pulse Ox 97.7 F 89 20 152/76 H 98 02/12/18 23:21 02/12/18 23:21 02/12/18 23:21 02/12/18 23:21 02/12/18 23:21 - Medications Medications: Current Medications Acetaminophen (Tylenol 325mg Tab) 650 mg PO Q6 PRN PRN Reason: Pain, Mild (1-3) Albuterol Sulfate (Albuterol 0.083% Inhal Susan (2.5 Mg/3 Ml) Ud) 2.5 mg INH RQ4 PRN PRN Reason: Shortness of Breath Albuterol/Ipratropium (Duoneb 3 Mg/0.5 Mg (3 Ml) Ud) 3 ml INH RQ4 [facility] Last Admin: 02/13/18 07:10 Dose: 3 ml Amoxicillin/Clavulanate Potassium (Augmentin 875 Mg-125 Mg Tab) 1 tab PO Q12 [facility] PRN Reason: Protocol Last Admin: 02/12/18 22:09 Dose: 1 tab Budesonide (Pulmicort Respules) 0.5 mg INH Q12H [facility] Last Admin: 02/13/18 07:09 Dose: 0.5 mg Dextrose (Dextrose 50% Inj) 0 ml IV STAT PRN; Protocol PRN Reason: Hypoglycemia Protocol Dextrose (Glutose 15) 0 gm PO ONCE PRN; Protocol PRN Reason: Hypoglycemia Protocol Enoxaparin Sodium (Lovenox) 40 mg SC HS [facility] PRN Reason: Protocol Last Admin: 02/12/18 21:18 Dose: 40 mg Famotidine (Pepcid) 20 mg PO BID [facility] Last Admin: 02/12/18 17:35 Dose: 20 mg Glucagon (Glucagen Diagnostic Kit) 0 mg IM STAT PRN; Protocol PRN Reason: Hypoglycemia Protocol Guaifenesin (Mucinex La) 600 mg PO Q12 [facility] Last Admin: 02/12/18 21:23 Dose: 600 mg Sodium Chloride (Sodium Chloride 0.9%) 1,000 mls @ 110 mls/hr IV .Q9H6M [facility] Last Admin: 02/13/18 01:30 Dose: Not Given Insulin Human Lispro (Humalog) 0 units SC ACHS [facility] PRN Reason: Protocol Last Admin: 02/12/18 21:41 Dose: Not Given Lactic Acid (Lac-Hydrin 12% Lotion (225 G)) 1 applic TOP BID [facility] Last Admin: 02/12/18 17:40 Dose: 12 % Lisinopril (Zestril) 5 mg PO DAILY [facility] Last Admin: 02/12/18 14:00 Dose: 5 mg Methylprednisolone (Solu-Medrol) 60 mg IV Q8H [facility] Last Admin: 02/13/18 01:37 Dose: 60 mg Montelukast Sodium (Singulair) 10 mg PO HS [facility] Last Admin: 02/12/18 21:17 Dose: 10 mg Nystatin (Nystatin Oral Susp) 5 ml PO QID [facility] Last Admin: 02/12/18 21:17 Dose: 5 ml - Labs Labs: 02/12/18 05:20 02/12/18 05:20 PT 11.1 Seconds (9.8-13.1) 02/11/18 18:06 INR 1.0 (0.9-1.2) 02/11/18 18:06 APTT 23.4 Seconds (25.6-37.1) L 02/11/18 18:06 - Constitutional Appears: Non-toxic, No Acute Distress - Head Exam Head Exam: ATRAUMATIC, NORMAL INSPECTION, NORMOCEPHALIC - Eye Exam Eye Exam: Normal appearance - ENT Exam ENT Exam: Mucous Membranes Moist - Neck Exam Neck Exam: Full ROM. absent: Tenderness - Respiratory Exam Respiratory Exam: Chest Wall Tenderness (mild tendneress), Wheezes. absent: Accessory Muscle Use, Decreased Breath Sounds, Rales, Rhonchi, Respiratory Distress - Cardiovascular Exam Cardiovascular Exam: REGULAR RHYTHM, +S1, +S2. absent: Tachycardia - GI/Abdominal Exam GI & Abdominal Exam: Soft, Normal Bowel Sounds. absent: Distended, Tenderness - Extremities Exam Extremities Exam: absent: Calf Tenderness - Neurological Exam Neurological Exam: Alert, Awake, Normal Gait, Oriented x3 - Skin Skin Exam: Dry, Intact Additional comments: Hyperpigmented patch of B/L UE and LE with multiple silvery dry plaque. Assessment and Plan - Assessment and Plan (Free Text) Assessment: 67 y/o man w/ pmh of COPD, NIDDM2, HTN, PE with IVC filter admitted for acute COPD exacerbation. Plan: Acute COPD exacerbation bronchitis type - afebrile, non-tachycardic, BP stable - Wheezing but stable - IVF NS @ 110mL/hr maintenance - c/w Duo-nebs q4h INH JEFFREY - c/w solumedrol 60 mg IV Q12h - c/w Albuterol Q4hr INH prn - c/w Guaifenesin 600 mg PO Q12h - O2 via NC, 2L PRN - CXR no active disease - c/w Augmentin 875mg Q12h day 3 - Due to increased sputum production/purulence Leukocytosis - Chronic - Last WBC 12.9 - Likely steroids side effect(Patient has multiple ER visits and short hosp admissions where he has been given steroids) Chest pain - reproducible on palpation - likely due to coughing, costochondritis and Bronchitis - Trop x3 normal - EKG NSR - Tylenol 650 mg Q6hr PRN Dysuria - UA Ordered - Urine culture Ordered - GC/Chlamydia Ordered - F/U UA/UC/GC/Chl Hypertension - asymptomatic - Lisinopril 5 mg PO JEFFREY - continue to monitor Oral Thrush - Nystatin 5 mg PO swish and swallow - Will monitor NIDDM2 - last hgb a1c 7.3 on 01/2018 - start metformin 500 mg PO BID w/ meals - accucheck ACHS - insulin correction scale - hypoglycemic protocol Psoriasis - chronic - not on treatment - Apply lac-hydrin to legs and arms Prophylaxis - DVT: Lovenox 40 mg sc HS - AAD: Florastor <Eloina Aldana - Last Filed: 02/14/18 08:27> Objective - Vital Signs/Intake and Output Vital Signs (last 24 hours): Temp Pulse Resp BP Pulse Ox 98.3 F 87 19 154/81 H 100 02/14/18 07:55 02/14/18 07:55 02/14/18 07:55 07/30/18 07:55 02/14/18 07:55 - Medications Medications: Current Medications Acetaminophen (Tylenol 325mg Tab) 650 mg PO Q6 PRN PRN Reason: Pain, Mild (1-3) Albuterol Sulfate (Albuterol 0.083% Inhal Susan (2.5 Mg/3 Ml) Ud) 2.5 mg INH RQ4 PRN PRN Reason: Shortness of Breath Albuterol/Ipratropium (Duoneb 3 Mg/0.5 Mg (3 Ml) Ud) 3 ml INH RQ4 [facility] Last Admin: 02/14/18 07:59 Dose: 3 ml Budesonide (Pulmicort Respules) 0.5 mg INH RBID [facility] Last Admin: 02/14/18 07:59 Dose: 0.5 mg Dextrose (Dextrose 50% Inj) 0 ml IV STAT PRN; Protocol PRN Reason: Hypoglycemia Protocol Dextrose (Glutose 15) 0 gm PO ONCE PRN; Protocol PRN Reason: Hypoglycemia Protocol Enoxaparin Sodium (Lovenox) 40 mg SC HS [facility] PRN Reason: Protocol Last Admin: 02/13/18 21:23 Dose: 40 mg Famotidine (Pepcid) 20 mg PO BID [facility] Last Admin: 02/14/18 08:16 Dose: 20 mg Glucagon (Glucagen Diagnostic Kit) 0 mg IM STAT PRN; Protocol PRN Reason: Hypoglycemia Protocol Guaifenesin (Mucinex La) 600 mg PO Q12 [facility] Last Admin: 02/14/18 08:15 Dose: 600 mg Sodium Chloride (Sodium Chloride 0.9%) 1,000 mls @ 110 mls/hr IV .Q9H6M [facility] Last Admin: 02/14/18 05:39 Dose: Not Given Insulin Human Lispro (Humalog) 0 units SC ACHS [facility] PRN Reason: Protocol Last Admin: 02/14/18 08:14 Dose: 4 units Lactic Acid (Lac-Hydrin 12% Lotion (225 G)) 1 applic TOP BID [facility] Last Admin: 02/14/18 08:19 Dose: 1 applic Levofloxacin (Levaquin) 500 mg PO DAILY [facility] PRN Reason: Protocol Last Admin: 02/14/18 08:17 Dose: 500 mg Lisinopril (Zestril) 5 mg PO DAILY [facility] Last Admin: 02/14/18 08:16 Dose: 5 mg Metformin HCl (Glucophage) 500 mg PO BIDWM [facility] Last Admin: 02/14/18 08:14 Dose: 500 mg Methylprednisolone (Solu-Medrol) 60 mg IV Q12 [facility] Last Admin: 02/14/18 08:18 Dose: 60 mg Montelukast Sodium (Singulair) 10 mg PO HS [facility] Last Admin: 02/13/18 21:23 Dose: 10 mg Nystatin (Nystatin Oral Susp) 5 ml PO QID [facility] Last Admin: 02/14/18 08:17 Dose: 5 ml - Labs Labs: 02/14/18 05:45 02/14/18 05:45 PT 11.1 Seconds (9.8-13.1) 02/11/18 18:06 INR 1.0 (0.9-1.2) 02/11/18 18:06 APTT 23.4 Seconds (25.6-37.1) L 02/11/18 18:06 Attending/Attestation - Attestation I have personally seen and examined this patient.: Yes I have fully participated in the care of the patient.: Yes I have reviewed all pertinent clinical information, including history, physical exam and plan: Yes Notes (Text): 02/14/18 08:27 Attending Note - improved air exchange on exam. patient reports some improvement. Start metformin for NIDDM.
[2018-02-13] MEDS: Amoxicillin-Clav 875-125 mg Tab PO SCH (08:48)
[2018-02-13] MEDS: Insulin Lispro (humaLOG) 100 Units/ml Inj SC SCH ×5 (08:48→21:13)
[2018-02-13] MEDS: guaiFENesin 600 mg ER Tab PO SCH ×2 (08:49→21:22)
[2018-02-13] MEDS: Nystatin 100,000 Units/ml Oral Susp 5 ml UD PO SCH ×4 (08:49→21:23)
[2018-02-13 16:00] LABS: URINE BILIRUBIN NEGATIVE (NEGATIVE); URINE BLOOD SMALL (NEGATIVE); URINE CLARITY CLEAR (Clear); URINE COLOR STRAW (YELLOW); URINE GLUCOSE (UA) >=500 mg/dL (Normal); URINE LEUKOCYTE ESTERASE NEG Leu/uL (Negative); URINE PROTEIN NEGATIVE (NEGATIVE); URINE UROBILINOGEN 0.2-1.0 mg/dL (0.2-1.0)
[2018-02-13] MEDS ORDERED: levoFLOXacin 500 MG TAB PO STA (20:30)
[2018-02-13] MEDS: Enoxaparin 40 mg Syringe SC SCH (21:23)
[2018-02-14] MEDS: Albuterol-Ipratrop 3 mg / 0.5 (3 ml) UD INH SCH ×6 (00:09→19:46)
[2018-02-14] MEDS: Sodium Chloride 0.9% 1,000 ML IV SCH ×3 (05:39→23:00)
[2018-02-14 06:36] LABS: HEMOGLOBIN 11.9 g/dL (12.0-18.0); MEAN CELL VOLUME 80.3 fl (80.0-94.0); MEAN CORPUSCULAR HEMOGLOBIN 26.8 pg (27.0-31.0); MEAN CORPUSCULAR HGB CONC 33.3 g/dL (33.0-37.0); RBC 4.45 Mil/uL (4.40-5.90); RED CELL DISTRIBUTION WIDTH 16.5 % (11.5-14.5); WHITE BLOOD COUNT 12.6 K/uL (4.8-10.8)
[2018-02-14 07:16] LABS: BLOOD UREA NITROGEN 27 mg/dl (9-20); CALCIUM 8.9 mg/dL (8.4-10.2); GFR AFRICAN-AMERICAN > 60; GFR NON-AFRICAN AMERICAN > 60
[2018-02-14] MEDS: Budesonide 0.5 mg/2 ml Inhal Susp UD INH SCH ×2 (07:59→19:46)
[2018-02-14] MEDS: Insulin Lispro (humaLOG) 100 Units/ml Inj SC SCH ×4 (08:14→21:31)
[2018-02-14] MEDS: guaiFENesin 600 mg ER Tab PO SCH ×2 (08:15→21:30)
[2018-02-14] MEDS: Nystatin 100,000 Units/ml Oral Susp 5 ml UD PO SCH ×4 (08:17→21:31)
[2018-02-14] MEDS ORDERED: levoFLOXacin 500 MG TAB PO SCH (09:00)
--- NOTE | 2018-02-14 11:22 | CP.PCM.PN ---
Subjective - Date & Time of Evaluation Date of Evaluation: 02/14/18 Time of Evaluation: 07:30 - Subjective Subjective: Patient evaluated and examined at bedside in AM. No acute distress. No acute events overnight. Patient still has cough, chest tenderness and SOB. SOB improving but worsens with lying down. Head elevation helps. Denies any fever, chills, headache, dizziness, abdominal pain, N/V/D/C. Objective - Vital Signs/Intake and Output Vital Signs (last 24 hours): Temp Pulse Resp BP Pulse Ox 98.3 F 87 19 154/81 H 100 02/14/18 07:55 02/14/18 07:55 02/14/18 07:55 02/14/18 07:55 02/14/18 07:55 - Medications Medications: Current Medications Acetaminophen (Tylenol 325mg Tab) 650 mg PO Q6 PRN PRN Reason: Pain, Mild (1-3) Albuterol Sulfate (Albuterol 0.083% Inhal Susan (2.5 Mg/3 Ml) Ud) 2.5 mg INH RQ4 PRN PRN Reason: Shortness of Breath Albuterol/Ipratropium (Duoneb 3 Mg/0.5 Mg (3 Ml) Ud) 3 ml INH RQ4 [facility] Last Admin: 02/14/18 11:13 Dose: 3 ml Budesonide (Pulmicort Respules) 0.5 mg INH RBID [facility] Last Admin: 02/14/18 07:59 Dose: 0.5 mg Dextrose (Dextrose 50% Inj) 0 ml IV STAT PRN; Protocol PRN Reason: Hypoglycemia Protocol Dextrose (Glutose 15) 0 gm PO ONCE PRN; Protocol PRN Reason: Hypoglycemia Protocol Enoxaparin Sodium (Lovenox) 40 mg SC HS [facility] PRN Reason: Protocol Last Admin: 02/13/18 21:23 Dose: 40 mg Famotidine (Pepcid) 20 mg PO BID [facility] Last Admin: 02/14/18 08:16 Dose: 20 mg Glucagon (Glucagen Diagnostic Kit) 0 mg IM STAT PRN; Protocol PRN Reason: Hypoglycemia Protocol Guaifenesin (Mucinex La) 600 mg PO Q12 [facility] Last Admin: 02/14/18 08:15 Dose: 600 mg Sodium Chloride (Sodium Chloride 0.9%) 1,000 mls @ 110 mls/hr IV .Q9H6M [facility] Last Admin: 02/14/18 05:39 Dose: Not Given Piperacillin Sod/Tazobactam (Sod 3.375 gm/ Sodium Chloride) 100 mls @ 100 mls/ hr IVPB Q12 [facility] PRN Reason: Protocol Insulin Human Lispro (Humalog) 0 units SC ACHS [facility] PRN Reason: Protocol Last Admin: 02/14/18 08:14 Dose: 4 units Lactic Acid (Lac-Hydrin 12% Lotion (225 G)) 1 applic TOP BID [facility] Last Admin: 02/14/18 08:19 Dose: 1 applic Lisinopril (Zestril) 5 mg PO DAILY [facility] Last Admin: 02/14/18 08:16 Dose: 5 mg Metformin HCl (Glucophage) 500 mg PO BIDWM [facility] Last Admin: 02/14/18 08:14 Dose: 500 mg Methylprednisolone (Solu-Medrol) 60 mg IV Q12 [facility] Last Admin: 02/14/18 08:18 Dose: 60 mg Montelukast Sodium (Singulair) 10 mg PO HS [facility] Last Admin: 02/13/18 21:23 Dose: 10 mg Nystatin (Nystatin Oral Susp) 5 ml PO QID [facility] Last Admin: 02/14/18 08:17 Dose: 5 ml - Labs Labs: 02/14/18 05:45 02/14/18 05:45 PT 11.1 Seconds (9.8-13.1) 02/11/18 18:06 INR 1.0 (0.9-1.2) 02/11/18 18:06 APTT 23.4 Seconds (25.6-37.1) L 02/11/18 18:06 - Constitutional Appears: Non-toxic, No Acute Distress - Head Exam Head Exam: ATRAUMATIC, NORMAL INSPECTION, NORMOCEPHALIC - Eye Exam Eye Exam: EOMI, Normal appearance, PERRL Pupil Exam: NORMAL ACCOMODATION, PERRL - ENT Exam ENT Exam: Mucous Membranes Moist - Respiratory Exam Respiratory Exam: Chest Wall Tenderness, Decreased Breath Sounds, Clear to Ausculation Bilateral, Prolonged Expiratory Phase, Wheezes. absent: Accessory Muscle Use, Respiratory Distress - Cardiovascular Exam Cardiovascular Exam: REGULAR RHYTHM, +S1, +S2. absent: Murmur - GI/Abdominal Exam GI & Abdominal Exam: Soft, Normal Bowel Sounds. absent: Distended, Guarding, Rigid, Tenderness - Extremities Exam Extremities Exam: absent: Calf Tenderness, Tenderness - Back Exam Back Exam: NORMAL INSPECTION. absent: CVA tenderness (L), CVA tenderness (R) - Neurological Exam Neurological Exam: Alert, Awake, Oriented x3 - Psychiatric Exam Psychiatric exam: Normal Affect, Normal Mood - Skin Skin Exam: Dry, Intact, Normal Color Additional comments: Hyperpigmented patches on UE and LE Assessment and Plan - Assessment and Plan (Free Text) Assessment: 67 y/o man w/ pmh of COPD, NIDDM2, HTN, PE with IVC filter, noncompliant with medication admitted for acute COPD exacerbation. Plan: Acute COPD exacerbation bronchitis type - afebrile, non-tachycardic, BP stable - Wheezing but stable - IVF NS @ 110mL/hr maintenance - c/w Duo-nebs q4h INH JEFFREY - c/w solumedrol 60 mg IV Q12h - c/w Albuterol Q4hr INH prn - c/w Guaifenesin 600 mg PO Q12h - O2 via NC, 2L PRN - CXR no active disease - Sputum culture: ESBL E. Coli sensitive to Zoysn - Started on Piperacilin/Tazobactum 3.375 gm in 100 ml Q6hr - D/C Levofloxacin - Monitor vitals Q8hr Leukocytosis - Chronic - Last WBC 12.6 - Likely steroids side effect(Patient has multiple ER visits and short hosp admissions where he has been given steroids) Chest pain - reproducible on palpation - likely due to costochondritis secondary to coughing and bronchitis - Trop x3 normal - EKG NSR - Tylenol 650 mg Q6hr PRN Dysuria/Hematuria - UA >500 glucose, Small blood - Urine culture pending - GC/Chlamydia pending Hypertension - asymptomatic - Lisinopril 5 mg PO JEFFREY - continue to monitor vitals Q8hr Oral Thrush - Improving - Nystatin 5 mg PO swish and swallow - Will monitor NIDDM2 - last hgb a1c 7.3 on 01/2018 - start metformin 500 mg PO BID w/ meals - accucheck ACHS - insulin correction scale - hypoglycemic protocol Psoriasis - chronic - not on treatment - Apply lac-hydrin to legs and arms Prophylaxis - DVT: Lovenox 40 mg sc HS - AAD: Florastor
[2018-02-14] MEDS: Piperacillin/Tazobact 3.375 GM in Sodium Chloride 0.9% 100 ML IVPB SCH ×2 (15:09→21:29)
[2018-02-14] MEDS ORDERED: Piperacillin/Tazobact 3.375 GM in Sodium Chloride 0.9% 100 ML IVPB SCH (21:00)
[2018-02-14] MEDS: Enoxaparin 40 mg Syringe SC SCH (21:30)
[2018-02-15] MEDS: Albuterol-Ipratrop 3 mg / 0.5 (3 ml) UD INH SCH ×6 (01:05→19:36)
[2018-02-15] MEDS: Piperacillin/Tazobact 3.375 GM in Sodium Chloride 0.9% 100 ML IVPB SCH ×2 (03:31→09:08)
[2018-02-15] MEDS: Budesonide 0.5 mg/2 ml Inhal Susp UD INH SCH ×2 (07:48→19:36)
[2018-02-15] MEDS: Insulin Lispro (humaLOG) 100 Units/ml Inj SC SCH ×4 (08:08→21:29)
[2018-02-15] MEDS: Nystatin 100,000 Units/ml Oral Susp 5 ml UD PO SCH ×4 (08:09→21:23)
[2018-02-15] MEDS: guaiFENesin 600 mg ER Tab PO SCH ×2 (08:10→21:23)
[2018-02-15] MEDS: Sodium Chloride 0.9% 1,000 ML IV SCH ×2 (08:11→16:14)
[2018-02-15] MEDS ORDERED: POLYETHYLENE GLYCOL 3350 17 GM/Dose PACKET PO ONE (08:56)
[2018-02-15 09:19] LABS: HEMOGLOBIN 12.2 g/dL (12.0-18.0); MEAN CELL VOLUME 80.7 fl (80.0-94.0); MEAN CORPUSCULAR HEMOGLOBIN 26.6 pg (27.0-31.0); MEAN CORPUSCULAR HGB CONC 32.9 g/dL (33.0-37.0); RBC 4.6 Mil/uL (4.40-5.90); RED CELL DISTRIBUTION WIDTH 16.4 % (11.5-14.5); WHITE BLOOD COUNT 11.8 K/uL (4.8-10.8)
[2018-02-15 09:30] LABS: BLOOD UREA NITROGEN 31 mg/dl (9-20); CALCIUM 9.1 mg/dL (8.4-10.2); GFR AFRICAN-AMERICAN > 60; GFR NON-AFRICAN AMERICAN > 60
--- NOTE | 2018-02-15 11:52 | CP.PCM.CON ---
History of Present Illness - History of Present Illness History of Present Illness: Infectious Disease Consultation Note- asked to see this patient at the request of family practice team for ESBL sputum cx. 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 Patient has had multiple ER and short hosp admission to [facility] and [facility] due to similar symptoms. Patient states that he was not taking any medication and that he ran out of the albuterol inh 2 days prior to admission. pt. states he has been having cough with brownish/thick phlegm along with sob and congestion. He also states he has been having dysurea with dark foul smelling urine for past few days. He denies any diarrhea or nausea or vomiting. denies any chest pain. Pt. states he feels better today compared to 2 days ago when he was admitted. I'm asked to see the patient now because he is found to have ESBL e.coli sputum cx. PMD: NO PMD. Allergies: NKDA Meds: No taking any medications PSHx: IVC filter placement SocialHx: former smoker, quit 1 yr ago. Formerly smoked 3-4 packs/day. Former alcohol abuser. Denies illicit drug use FamilyHx: sister with diabetes. no hx of heart dz or cancer Next of kin: son, lives in [place] Review of Systems - Review of Systems Review of Systems: ROS- as per HPI. Past Patient History - Infectious Disease Hx of Infectious Diseases: None - Tetanus Immunizations Tetanus Immunization: Unknown - Past Medical History & Family History Past Medical History?: Yes - Past Social History Smoking Status: Former Smoker Drugs: Denies - PULMONARY Hx Respiratory Disorders: Yes Hx Chronic Obstructive Pulmonary Disease (COPD): Yes - NEUROLOGICAL Hx Neurological Disorder: No - HEENT Hx HEENT Problems: No - RENAL Hx Chronic Kidney Disease: No - ENDOCRINE/METABOLIC Hx Endocrine Disorders: Yes Hx Diabetes Mellitus Type 2: Yes - HEMATOLOGICAL/ONCOLOGICAL Hx Blood Disorders: No - INTEGUMENTARY Hx Dermatological Problems: Yes (GENERALIZED SKIN PSORIASIS) - MUSCULOSKELETAL/RHEUMATOLOGICAL Hx Musculoskeletal Disorders: No Hx Falls: No - GASTROINTESTINAL Hx Gastrointestinal Disorders: Yes Other/Comment: GI bleeding - GENITOURINARY/GYNECOLOGICAL Hx Genitourinary Disorders: No - PSYCHIATRIC Hx Psychophysiologic Disorder: No Hx Substance Use: No - SURGICAL HISTORY Hx Surgeries: Yes Other/Comment: IVC Filter - ANESTHESIA Hx Anesthesia: Yes Hx Anesthesia Reactions: No Hx Malignant Hyperthermia: No Meds Allergies/Adverse Reactions: Allergies Allergy/AdvReac Type Severity Reaction Status Date / Time No Known Allergies Allergy Verified 02/04/18 19:29 - Medications Medications: Current Medications Acetaminophen (Tylenol 325mg Tab) 650 mg PO Q6 PRN PRN Reason: Pain, Mild (1-3) Albuterol Sulfate (Albuterol 0.083% Inhal Susan (2.5 Mg/3 Ml) Ud) 2.5 mg INH RQ4 PRN PRN Reason: Shortness of Breath Albuterol/Ipratropium (Duoneb 3 Mg/0.5 Mg (3 Ml) Ud) 3 ml INH RQ4 [facility] Last Admin: 02/15/18 11:13 Dose: 3 ml Budesonide (Pulmicort Respules) 0.5 mg INH RBID [facility] Last Admin: 02/15/18 07:48 Dose: 0.5 mg Dextrose (Dextrose 50% Inj) 0 ml IV STAT PRN; Protocol PRN Reason: Hypoglycemia Protocol Dextrose (Glutose 15) 0 gm PO ONCE PRN; Protocol PRN Reason: Hypoglycemia Protocol Enoxaparin Sodium (Lovenox) 40 mg SC HS [facility] PRN Reason: Protocol Last Admin: 02/14/18 21:30 Dose: 40 mg Famotidine (Pepcid) 20 mg PO BID [facility] Last Admin: 02/15/18 08:10 Dose: 20 mg Glucagon (Glucagen Diagnostic Kit) 0 mg IM STAT PRN; Protocol PRN Reason: Hypoglycemia Protocol Guaifenesin (Mucinex La) 600 mg PO Q12 [facility] Last Admin: 02/15/18 08:10 Dose: 600 mg Sodium Chloride (Sodium Chloride 0.9%) 1,000 mls @ 110 mls/hr IV .Q9H6M [facility] Last Admin: 02/15/18 08:11 Dose: Not Given Piperacillin Sod/Tazobactam (Sod 3.375 gm/ Sodium Chloride) 100 mls @ 100 mls/ hr IVPB Q6 [facility] PRN Reason: Protocol Last Admin: 02/15/18 09:08 Dose: 100 mls/hr Insulin Human Lispro (Humalog) 0 units SC ACHS [facility] PRN Reason: Protocol Last Admin: 02/15/18 08:08 Dose: 4 units Lactic Acid (Lac-Hydrin 12% Lotion (225 G)) 1 applic TOP BID [facility] Last Admin: 02/15/18 08:07 Dose: 1 applic Lisinopril (Zestril) 5 mg PO DAILY [facility] Last Admin: 02/15/18 08:12 Dose: 5 mg Metformin HCl (Glucophage) 500 mg PO BIDWM [facility] Last Admin: 02/15/18 08:10 Dose: 500 mg Methylprednisolone (Solu-Medrol) 60 mg IV Q12 [facility] Last Admin: 02/15/18 08:11 Dose: 60 mg Montelukast Sodium (Singulair) 10 mg PO HS [facility] Last Admin: 02/14/18 21:31 Dose: 10 mg Nystatin (Nystatin Oral Susp) 5 ml PO QID [facility] Last Admin: 02/15/18 08:09 Dose: 5 ml Physical Exam - Constitutional Appears: No Acute Distress - Head Exam Head Exam: ATRAUMATIC - Eye Exam Eye Exam: EOMI - ENT Exam ENT Exam: Normal Oropharynx - Neck Exam Neck exam: Positive for: Full Rom - Respiratory Exam Respiratory Exam: NORMAL BREATHING PATTERN Additional comments: coarse cough no wheezing some scattered rhonchi - Cardiovascular Exam Cardiovascular Exam: RRR, +S1, +S2 - GI/Abdominal Exam GI & Abdominal Exam: Normal Bowel Sounds, Soft Additional comments: NT, ND - Extremities Exam Additional comments: No edema B/L LE - Neurological Exam Neurological exam: Alert, Oriented x3 Results - Vital Signs Recent Vital Signs: Last Vital Signs Temp 98.1 F 02/15/18 07:47 Pulse 89 02/15/18 07:47 Resp 19 02/15/18 07:47 BP 175/90 H 02/15/18 07:47 Pulse Ox 95 02/15/18 07:47 - Labs Result Diagrams: 02/15/18 08:30 02/15/18 08:30 Labs: Laboratory Results - last 24 hr 02/14/18 02/14/18 02/15/18 16:17 20:58 05:27 WBC RBC Hgb Hct MCV MCH MCHC RDW Plt Count Sodium Potassium Chloride Carbon Dioxide Anion Gap BUN Creatinine Est GFR ( Amer) Est GFR (Non-Af Amer) POC Glucose (mg/dL) 238 H 366 H 269 H Random Glucose Calcium 02/15/18 02/15/18 02/15/18 08:30 08:30 10:49 WBC 11.8 H RBC 4.60 Hgb 12.2 Hct 37.1 MCV 80.7 MCH 26.6 L MCHC 32.9 L RDW 16.4 H Plt Count 219 Sodium 135 Potassium 4.6 Chloride 99 Carbon Dioxide 27 Anion Gap 14 BUN 31 H Creatinine 0.8 Est GFR ( Amer) > 60 Est GFR (Non-Af Amer) > 60 POC Glucose (mg/dL) 232 H Random Glucose 262 H Calcium 9.1 Laboratory Results - last 72 hr 02/12/18 02/12/18 02/12/18 15:50 15:53 21:20 WBC RBC Hgb Hct MCV MCH MCHC RDW Plt Count Sodium Potassium Chloride Carbon Dioxide Anion Gap BUN Creatinine Est GFR ( Amer) Est GFR (Non-Af Amer) POC Glucose (mg/dL) 285 H 223 H Random Glucose Calcium Urine Color Straw Urine Clarity Clear Urine pH 6.0 Ur Specific Normanna 1.015 Urine Protein Negative Urine Glucose (UA) >=500 Urine Ketones Negative Urine Blood Small Urine Nitrate Negative Urine Bilirubin Negative Urine Urobilinogen 0.2-1.0 Ur Leukocyte Esterase Neg Urine RBC (Auto) 1 Urine Microscopic WBC 1 02/13/18 02/13/18 02/13/18 05:21 10:53 16:35 WBC RBC Hgb Hct MCV MCH MCHC RDW Plt Count Sodium Potassium Chloride Carbon Dioxide Anion Gap BUN Creatinine Est GFR ( Amer) Est GFR (Non-Af Amer) POC Glucose (mg/dL) 241 H 363 H 350 H Random Glucose Calcium Urine Color Urine Clarity Urine pH Ur Specific Normanna Urine Protein Urine Glucose (UA) Urine Ketones Urine Blood Urine Nitrate Urine Bilirubin Urine Urobilinogen Ur Leukocyte Esterase Urine RBC (Auto) Urine Microscopic WBC 02/13/18 02/14/18 02/14/18 20:59 05:18 05:45 WBC 12.6 H RBC 4.45 Hgb 11.9 L Hct 35.7 MCV 80.3 MCH 26.8 L MCHC 33.3 RDW 16.5 H Plt Count 224 Sodium Potassium Chloride Carbon Dioxide Anion Gap BUN Creatinine Est GFR ( Amer) Est GFR (Non-Af Amer) POC Glucose (mg/dL) 167 H 297 H Random Glucose Calcium Urine Color Urine Clarity Urine pH Ur Specific Normanna Urine Protein Urine Glucose (UA) Urine Ketones Urine Blood Urine Nitrate Urine Bilirubin Urine Urobilinogen Ur Leukocyte Esterase Urine RBC (Auto) Urine Microscopic WBC 02/14/18 02/14/18 02/14/18 05:45 10:42 16:17 WBC RBC Hgb Hct MCV MCH MCHC RDW Plt Count Sodium 137 Potassium 4.6 Chloride 102 Carbon Dioxide 29 Anion Gap 11 BUN 27 H Creatinine 0.8 Est GFR ( Amer) > 60 Est GFR (Non-Af Amer) > 60 POC Glucose (mg/dL) 256 H 238 H Random Glucose 269 H Calcium 8.9 Urine Color Urine Clarity Urine pH Ur Specific Normanna Urine Protein Urine Glucose (UA) Urine Ketones Urine Blood Urine Nitrate Urine Bilirubin Urine Urobilinogen Ur Leukocyte Esterase Urine RBC (Auto) Urine Microscopic WBC 02/14/18 02/15/18 02/15/18 20:58 05:27 08:30 WBC 11.8 H RBC 4.60 Hgb 12.2 Hct 37.1 MCV 80.7 MCH 26.6 L MCHC 32.9 L RDW 16.4 H Plt Count 219 Sodium Potassium Chloride Carbon Dioxide Anion Gap BUN Creatinine Est GFR ( Amer) Est GFR (Non-Af Amer) POC Glucose (mg/dL) 366 H 269 H Random Glucose Calcium Urine Color Urine Clarity Urine pH Ur Specific Normanna Urine Protein Urine Glucose (UA) Urine Ketones Urine Blood Urine Nitrate Urine Bilirubin Urine Urobilinogen Ur Leukocyte Esterase Urine RBC (Auto) Urine Microscopic WBC 02/15/18 02/15/18 08:30 10:49 WBC RBC Hgb Hct MCV MCH MCHC RDW Plt Count Sodium 135 Potassium 4.6 Chloride 99 Carbon Dioxide 27 Anion Gap 14 BUN 31 H Creatinine 0.8 Est GFR ( Amer) > 60 Est GFR (Non-Af Amer) > 60 POC Glucose (mg/dL) 232 H Random Glucose 262 H Calcium 9.1 Urine Color Urine Clarity Urine pH Ur Specific Normanna Urine Protein Urine Glucose (UA) Urine Ketones Urine Blood Urine Nitrate Urine Bilirubin Urine Urobilinogen Ur Leukocyte Esterase Urine RBC (Auto) Urine Microscopic WBC Microbiology 02/12/18 10:00 Sputum Gram Stain - Final 02/12/18 10:00 Sputum Sputum Culture - Final Escherichia Coli Microbiology 02/05/18 03:57 Urine Urine Culture - Final No Growth (<1,000 CFU/ML) 02/04/18 16:40 Blood Blood Culture - Final 02/04/18 16:40 Blood Gram Stain - Final NO GROWTH AFTER 5 DAYS TEST NOT PERFORMED 02/04/18 15:00 Blood Blood Culture - Final 02/04/18 15:00 Blood Gram Stain - Final NO GROWTH AFTER 5 DAYS TEST NOT PERFORMED 01/17/18 14:00 Sputum Gram Stain - Final 01/17/18 14:00 Sputum Sputum Culture - Final Proteus Mirabilis 12/13/17 18:54 Sputum Gram Stain - Final 12/13/17 18:54 Sputum Sputum Culture - Final Escherichia Coli Accession No. : [id number] Patient Name / ID : JACK BOWMAN / [id number] Exam Date : 02/11/2018 17:24:15 ( Approved ) Study Comment : Sex / Age : M / 67Y Creator : cooper rogers Dictator : Alessandro Rodrigues MD Fish Warden : Retail Manager : Alessandro Rodrigues MD Approver2 : Report Date : 02/11/2018 17:38:49 My Comment : Date of service: 02/11/2018 HISTORY: Dyspnea. COMPARISON: 01/16/2018. FINDINGS: LUNGS: No active pulmonary disease. PLEURA: No significant pleural effusion identified, no pneumothorax apparent. CARDIOVASCULAR: No radiographic findings to suggest acute or significant cardiovascular disease. OSSEOUS STRUCTURES: No significant abnormalities. VISUALIZED UPPER ABDOMEN: Normal. OTHER FINDINGS: None. IMPRESSION: No active disease. No significant interval change compared to the prior examination(s). Assessment & Plan (1) COPD exacerbation Status: Acute Priority: High (2) Dyspnea Status: Acute (3) Sputum culture positive for ESBL E. coli Status: Acute - Assessment and Plan (Free Text) Assessment: A/P- 67 year old male with multiple medical conditions including COPD, DM II admitted with copd exacerbation after recent d/c from hospital. pt. is afebrile minimal leukocytosis which could also be secondary partially to steroids that he was on as well. CXR no active disease as per report. sputum cx- light growth ESBL e.coli Plan- no sign of sepsis , however, in light of his multiple recent admissions and COPD exacerbation and advise to give short course of either meropenem or ertapenem to treat the ESBL e.coli in soutum cx. nebs and COPD treatment as per primary team. All above d/w patient at length and he verbalizes full understanding of all above and agrees with above plan of care. Thank you for allowing me to take part in the care of this patient.
--- NOTE | 2018-02-15 11:55 | CP.PCM.PN ---
Subjective - Date & Time of Evaluation Date of Evaluation: 02/15/18 Time of Evaluation: 08:00 - Subjective Subjective: Patient evaluated and examined at bedside in AM. NAD. No acute events overnight. SOB improved. Cough with brownish sputum and Chest wall pain still present. Denies any headache, dizziness, SOB, nausea, vomiting, constipation, diarrhea, back pain or dysuria. Continue with IV abx. ID on board. Objective - Vital Signs/Intake and Output Vital Signs (last 24 hours): Temp Pulse Resp BP Pulse Ox 98.1 F 89 19 175/90 H 95 02/15/18 07:47 02/15/18 07:47 02/15/18 07:47 02/15/18 07:47 02/15/18 07:47 - Medications Medications: Current Medications Acetaminophen (Tylenol 325mg Tab) 650 mg PO Q6 PRN PRN Reason: Pain, Mild (1-3) Albuterol Sulfate (Albuterol 0.083% Inhal Susan (2.5 Mg/3 Ml) Ud) 2.5 mg INH RQ4 PRN PRN Reason: Shortness of Breath Albuterol/Ipratropium (Duoneb 3 Mg/0.5 Mg (3 Ml) Ud) 3 ml INH RQ4 [facility] Last Admin: 02/15/18 11:13 Dose: 3 ml Budesonide (Pulmicort Respules) 0.5 mg INH RBID [facility] Last Admin: 02/15/18 07:48 Dose: 0.5 mg Dextrose (Dextrose 50% Inj) 0 ml IV STAT PRN; Protocol PRN Reason: Hypoglycemia Protocol Dextrose (Glutose 15) 0 gm PO ONCE PRN; Protocol PRN Reason: Hypoglycemia Protocol Enoxaparin Sodium (Lovenox) 40 mg SC HS [facility] PRN Reason: Protocol Last Admin: 02/14/18 21:30 Dose: 40 mg Famotidine (Pepcid) 20 mg PO BID [facility] Last Admin: 02/15/18 08:10 Dose: 20 mg Glucagon (Glucagen Diagnostic Kit) 0 mg IM STAT PRN; Protocol PRN Reason: Hypoglycemia Protocol Guaifenesin (Mucinex La) 600 mg PO Q12 [facility] Last Admin: 02/15/18 08:10 Dose: 600 mg Sodium Chloride (Sodium Chloride 0.9%) 1,000 mls @ 110 mls/hr IV .Q9H6M [facility] Last Admin: 02/15/18 08:11 Dose: Not Given Piperacillin Sod/Tazobactam (Sod 3.375 gm/ Sodium Chloride) 100 mls @ 100 mls/ hr IVPB Q6 [facility] PRN Reason: Protocol Last Admin: 02/15/18 09:08 Dose: 100 mls/hr Insulin Human Lispro (Humalog) 0 units SC ACHS [facility] PRN Reason: Protocol Last Admin: 02/15/18 08:08 Dose: 4 units Lactic Acid (Lac-Hydrin 12% Lotion (225 G)) 1 applic TOP BID [facility] Last Admin: 02/15/18 08:07 Dose: 1 applic Lisinopril (Zestril) 5 mg PO DAILY [facility] Last Admin: 02/15/18 08:12 Dose: 5 mg Metformin HCl (Glucophage) 500 mg PO BIDWM [facility] Last Admin: 02/15/18 08:10 Dose: 500 mg Methylprednisolone (Solu-Medrol) 60 mg IV Q12 [facility] Last Admin: 02/15/18 08:11 Dose: 60 mg Montelukast Sodium (Singulair) 10 mg PO HS [facility] Last Admin: 02/14/18 21:31 Dose: 10 mg Nystatin (Nystatin Oral Susp) 5 ml PO QID [facility] Last Admin: 02/15/18 08:09 Dose: 5 ml - Labs Labs: 02/15/18 08:30 02/15/18 08:30 PT 11.1 Seconds (9.8-13.1) 02/11/18 18:06 INR 1.0 (0.9-1.2) 02/11/18 18:06 APTT 23.4 Seconds (25.6-37.1) L 02/11/18 18:06 - Constitutional Appears: Well, Non-toxic, No Acute Distress - Head Exam Head Exam: ATRAUMATIC, NORMAL INSPECTION, NORMOCEPHALIC - Eye Exam Eye Exam: EOMI, Normal appearance, PERRL Pupil Exam: NORMAL ACCOMODATION, PERRL - ENT Exam ENT Exam: Mucous Membranes Moist - Neck Exam Neck Exam: Full ROM - Respiratory Exam Respiratory Exam: Chest Wall Tenderness, Prolonged Expiratory Phase, Wheezes. absent: Accessory Muscle Use, Respiratory Distress - Cardiovascular Exam Cardiovascular Exam: REGULAR RHYTHM, +S1, +S2. absent: Murmur - GI/Abdominal Exam GI & Abdominal Exam: Soft, Hernia, Normal Bowel Sounds Additional comments: Midline supraumbilical nontender swelling, Hard in consistency, mobile increase in size with coughing. - Exam Exam: Scrotal Swelling Additional comments: Left inguinal swelling, irreducible, nontender without any erythema - Extremities Exam Extremities Exam: absent: Calf Tenderness, Pedal Edema, Tenderness - Back Exam Back Exam: absent: CVA tenderness (L), CVA tenderness (R), tenderness - Neurological Exam Neurological Exam: Alert, Awake, Oriented x3 - Psychiatric Exam Psychiatric exam: Normal Affect, Normal Mood - Skin Skin Exam: Dry, Intact Additional comments: Hypwerpigmentation of RLQ and LLQ area Hyperpigmented patch on B/L UE and LE Assessment and Plan - Assessment and Plan (Free Text) Assessment: 67 y/o man w/ pmh of COPD, NIDDM2, HTN, PE with IVC filter, noncompliant with medication admitted for acute COPD exacerbation. Plan: Acute COPD exacerbation bronchitis type - afebrile, non-tachycardic, BP stable - Wheezing but stable - IVF NS @ 110mL/hr maintenance - c/w Duo-nebs q4h INH [facility] - c/w solumedrol 60 mg IV Q12h - c/w Albuterol Q4hr INH prn - c/w Guaifenesin 600 mg PO Q12h - O2 via NC, 2L PRN - CXR no active disease - Sputum culture: ESBL E. Coli sensitive to Zoysn - C/W Piperacilin/Tazobactum 3.375 gm in 100 ml Q6hr - ID Consult on board: Will follow recommendations - Monitor vitals Q8hr Leukocytosis - Chronic, Improving - Last WBC 11.8 - Likely steroids side effect(Patient has multiple ER visits and short hosp admissions where he has been given steroids) Chest pain - reproducible on palpation - likely due to costochondritis secondary to coughing and bronchitis - Trop x3 normal - EKG NSR - Tylenol 650 mg Q6hr PRN Dysuria/Hematuria - UA >500 glucose, Small blood - Urine culture pending - GC/Chlamydia pending Hypertension - asymptomatic - Lisinopril 5 mg PO [facility] - continue to monitor vitals Q8hr Oral Thrush - Resolved - Nystatin 5 mg PO swish and swallow - Will monitor NIDDM2 - last hgb a1c 7.3 on 01/2018 - start metformin 500 mg PO BID w/ meals - accucheck ACHS - insulin correction scale - hypoglycemic protocol Left inguinal hernia - Asymptomatic - Outpatient F/U with surgery. Psoriasis - Chronic - not on treatment - Apply lac-hydrin to legs and arms Prophylaxis - DVT: Lovenox 40 mg sc HS - AAD: Florastor
[2018-02-15] MEDS: Meropenem 1 GM in Sodium Chloride 0.9% 100 ML IVPB SCH (17:39)
[2018-02-15] MEDS: Enoxaparin 40 mg Syringe SC SCH (21:23)
[2018-02-16] MEDS: Albuterol-Ipratrop 3 mg / 0.5 (3 ml) UD INH SCH ×7 (00:06→23:41)
[2018-02-16] MEDS: Meropenem 1 GM in Sodium Chloride 0.9% 100 ML IVPB SCH ×3 (01:15→16:18)
[2018-02-16] MEDS: Sodium Chloride 0.9% 1,000 ML IV SCH ×2 (02:30→13:26)
[2018-02-16] MEDS: Budesonide 0.5 mg/2 ml Inhal Susp UD INH SCH ×2 (07:48→19:02)
[2018-02-16] MEDS: Cholecalciferol 1,000 INTLU TAB PO SCH (08:32)
[2018-02-16] MEDS: guaiFENesin 600 mg ER Tab PO SCH ×2 (08:32→21:13)
[2018-02-16] MEDS: Insulin Lispro (humaLOG) 100 Units/ml Inj SC SCH ×4 (08:33→22:24)
[2018-02-16] MEDS: MethylPREDNISolone 40 mg Vial IV SCH ×2 (08:34→21:14)
[2018-02-16] MEDS: Nystatin 100,000 Units/ml Oral Susp 5 ml UD PO SCH ×4 (08:34→21:13)
[2018-02-16 10:33] LABS: SQUAMOUS EPITHIAL < 1 /hpf (0-5); URINE BILIRUBIN NEGATIVE (NEGATIVE); URINE BLOOD NEGATIVE (NEGATIVE); URINE CLARITY CLEAR (Clear); URINE COLOR STRAW (YELLOW); URINE GLUCOSE (UA) >=500 mg/dL (Normal); URINE LEUKOCYTE ESTERASE NEG Leu/uL (Negative); URINE PROTEIN NEGATIVE (NEGATIVE); URINE UROBILINOGEN 0.2-1.0 mg/dL (0.2-1.0)
--- NOTE | 2018-02-16 12:15 | CP.PCM.PN ---
Subjective - Date & Time of Evaluation Date of Evaluation: 02/16/18 Time of Evaluation: 12:13 - Subjective Subjective: Patient seen and examined at bedside, coughing. He states that his cough and chest pain are improving but still present. He c/o difficulty sleeping at night due to cough. Patient denies headache, dizziness, n/v/c/d. Patient's charts, labs, and nurse notes reviewed. Objective - Vital Signs/Intake and Output Vital Signs (last 24 hours): Temp Pulse Resp BP Pulse Ox 97.8 F 86 19 167/77 H 97 02/16/18 07:50 02/16/18 07:50 02/16/18 07:50 02/16/18 07:50 02/16/18 07:50 - Medications Medications: Current Medications Acetaminophen (Tylenol 325mg Tab) 650 mg PO Q6 PRN PRN Reason: Pain, Mild (1-3) Albuterol Sulfate (Albuterol 0.083% Inhal Susan (2.5 Mg/3 Ml) Ud) 2.5 mg INH RQ4 PRN PRN Reason: Shortness of Breath Albuterol/Ipratropium (Duoneb 3 Mg/0.5 Mg (3 Ml) Ud) 3 ml INH RQ4 [facility] Last Admin: 02/16/18 11:00 Dose: 3 ml Budesonide (Pulmicort Respules) 0.5 mg INH RBID [facility] Last Admin: 02/16/18 07:48 Dose: 0.5 mg Cholecalciferol (Vitamin D) 2,000 intlu PO DAILY [facility] Last Admin: 02/16/18 08:32 Dose: 2,000 intlu Cyanocobalamin (Vitamin B12 1000 Mcg Tab) 1,000 mcg PO DAILY [facility] Last Admin: 02/16/18 08:33 Dose: 1,000 mcg Dextrose (Dextrose 50% Inj) 0 ml IV STAT PRN; Protocol PRN Reason: Hypoglycemia Protocol Dextrose (Glutose 15) 0 gm PO ONCE PRN; Protocol PRN Reason: Hypoglycemia Protocol Enoxaparin Sodium (Lovenox) 40 mg SC HS [facility] PRN Reason: Protocol Last Admin: 02/15/18 21:23 Dose: 40 mg Famotidine (Pepcid) 20 mg PO BID [facility] Last Admin: 02/16/18 08:33 Dose: 20 mg Glucagon (Glucagen Diagnostic Kit) 0 mg IM STAT PRN; Protocol PRN Reason: Hypoglycemia Protocol Guaifenesin (Mucinex La) 600 mg PO Q12 [facility] Last Admin: 02/16/18 08:32 Dose: 600 mg Sodium Chloride (Sodium Chloride 0.9%) 1,000 mls @ 110 mls/hr IV .Q9H6M [facility] Last Admin: 02/16/18 02:30 Dose: Not Given Meropenem 1 gm/ Sodium (Chloride) 100 mls @ 100 mls/hr IVPB Q8 [facility] PRN Reason: Protocol Last Admin: 02/16/18 11:09 Dose: 100 mls/hr Insulin Human Lispro (Humalog) 0 units SC ACHS [facility] PRN Reason: Protocol Last Admin: 02/16/18 08:33 Dose: 3 units Lactic Acid (Lac-Hydrin 12% Lotion (225 G)) 1 applic TOP BID [facility] Last Admin: 02/16/18 08:34 Dose: 1 applic Lisinopril (Zestril) 5 mg PO DAILY [facility] Last Admin: 02/16/18 08:32 Dose: 5 mg Metformin HCl (Glucophage) 500 mg PO BIDWM [facility] Last Admin: 02/16/18 08:33 Dose: 500 mg Methylprednisolone (Solu-Medrol) 40 mg IV Q12 [facility] Last Admin: 02/16/18 08:34 Dose: 40 mg Montelukast Sodium (Singulair) 10 mg PO HS [facility] Last Admin: 02/15/18 21:23 Dose: 10 mg Nystatin (Nystatin Oral Susp) 5 ml PO QID [facility] Last Admin: 02/16/18 08:34 Dose: 5 ml - Labs Labs: 02/15/18 08:30 02/15/18 08:30 PT 11.1 Seconds (9.8-13.1) 02/11/18 18:06 INR 1.0 (0.9-1.2) 02/11/18 18:06 APTT 23.4 Seconds (25.6-37.1) L 02/11/18 18:06 - Constitutional Appears: No Acute Distress, Older Than Stated Age, Chronically Ill - Head Exam Head Exam: NORMAL INSPECTION - Eye Exam Eye Exam: Normal appearance - ENT Exam ENT Exam: Mucous Membranes Moist - Respiratory Exam Respiratory Exam: Chest Wall Tenderness, Rhonchi, Wheezes. absent: Clear to Ausculation Bilateral - Cardiovascular Exam Cardiovascular Exam: REGULAR RHYTHM, RRR, +S1, +S2 - GI/Abdominal Exam GI & Abdominal Exam: Soft, Normal Bowel Sounds. absent: Distended, Tenderness - Extremities Exam Extremities Exam: absent: Pedal Edema, Tenderness - Neurological Exam Neurological Exam: Alert, Altered, Awake, Oriented x3 - Psychiatric Exam Psychiatric exam: Normal Affect - Skin Skin Exam: Dry, Intact, Warm Assessment and Plan - Assessment and Plan (Free Text) Assessment: Assessment: 67 y/o homeless man w/ pmh of COPD, NIDDM2, HTN, PE with IVC filter, noncompliant with medication admitted for acute COPD exacerbation. Plan: Acute COPD exacerbation bronchitis type - Wheezing persists - IVF NS @ 110mL/hr maintenance - c/w meropenem 100mL/hr, Zosyn d/c, Duo-nebs q4h INH [facility], solumedrol 60 mg IV Q12h, Albuterol Q4hr INH prn, Guaifenesin 600 mg PO Q12h, O2 via NC, 2L PRN - CXR no active disease - Sputum culture: ESBL E. Coli - ID Consult on board: Will follow recommendations Leukocytosis - fImproving - Last WBC 11.8 - Likely steroids side effect(Patient has multiple ER visits and short hosp admissions where he has been given steroids) Chest pain - reproducible on palpation - likely due to costochondritis secondary to coughing and bronchitis - Trop x3 normal - EKG NSR - Tylenol 650 mg Q6hr PRN Dysuria/Hematuria - UA >500 glucose, Small blood - Urine culture pending - GC/Chlamydia pending Hypertension - asymptomatic - Lisinopril 5 mg PO [facility] - monitor BP Oral Thrush - Resolved - Nystatin 5 mg PO swish and swallow (day 5) - Will monitor NIDDM2 -uncontrolled, was not on medications at home - last hgb a1c 7.3 on 01/2018 - metformin 500 mg PO BID w/ meals - accucheck ACHS - insulin coverage scale - hypoglycemic protocol in place Left inguinal hernia - Asymptomatic - Outpatient F/U with surgery. Psoriasis - Chronic - not on treatment - Apply lac-hydrin to legs and arms Prophylaxis - DVT: Lovenox 40 mg sc HS - AAD: Florastor
[2018-02-16] MEDS: Enoxaparin 40 mg Syringe SC SCH (21:14)
[2018-02-17] MEDS: Meropenem 1 GM in Sodium Chloride 0.9% 100 ML IVPB SCH ×3 (00:22→17:35)
[2018-02-17] MEDS: Albuterol-Ipratrop 3 mg / 0.5 (3 ml) UD INH SCH ×6 (04:24→23:58)
[2018-02-17] MEDS: Insulin Lispro (humaLOG) 100 Units/ml Inj SC SCH ×4 (06:47→21:57)
[2018-02-17] MEDS: Budesonide 0.5 mg/2 ml Inhal Susp UD INH SCH ×2 (07:40→20:02)
[2018-02-17] MEDS: Nystatin 100,000 Units/ml Oral Susp 5 ml UD PO SCH ×4 (08:59→21:42)
[2018-02-17] MEDS: guaiFENesin 600 mg ER Tab PO SCH ×2 (09:01→21:02)
[2018-02-17] MEDS: MethylPREDNISolone 40 mg Vial IV SCH (09:02)
[2018-02-17] MEDS: Cholecalciferol 1,000 INTLU TAB PO SCH (09:02)
--- NOTE | 2018-02-17 09:34 | CP.PCM.PN ---
Subjective - Date & Time of Evaluation Date of Evaluation: 02/17/18 Time of Evaluation: 09:31 - Subjective Subjective: Patient seen and examined at bedside, coughing and wheezing. Admits to chest pain w/ cough. Denies palpitations, dizziness, n/v/d/c. Objective - Vital Signs/Intake and Output Vital Signs (last 24 hours): Temp Pulse Resp BP Pulse Ox 97.5 F L 89 20 100/62 91 L 02/17/18 08:17 02/17/18 09:00 02/17/18 08:17 02/17/18 09:00 02/17/18 08:17 - Medications Medications: Current Medications Acetaminophen (Tylenol 325mg Tab) 650 mg PO Q6 PRN PRN Reason: Pain, Mild (1-3) Albuterol Sulfate (Albuterol 0.083% Inhal Susan (2.5 Mg/3 Ml) Ud) 2.5 mg INH RQ4 PRN PRN Reason: Shortness of Breath Albuterol/Ipratropium (Duoneb 3 Mg/0.5 Mg (3 Ml) Ud) 3 ml INH RQ4 [facility] Last Admin: 02/17/18 07:39 Dose: 3 ml Budesonide (Pulmicort Respules) 0.5 mg INH RBID [facility] Last Admin: 02/17/18 07:40 Dose: 0.5 mg Cholecalciferol (Vitamin D) 2,000 intlu PO DAILY [facility] Last Admin: 02/17/18 09:02 Dose: 2,000 intlu Cyanocobalamin (Vitamin B12 1000 Mcg Tab) 1,000 mcg PO DAILY [facility] Last Admin: 02/17/18 09:02 Dose: 1,000 mcg Dextrose (Dextrose 50% Inj) 0 ml IV STAT PRN; Protocol PRN Reason: Hypoglycemia Protocol Dextrose (Glutose 15) 0 gm PO ONCE PRN; Protocol PRN Reason: Hypoglycemia Protocol Enoxaparin Sodium (Lovenox) 40 mg SC HS [facility] PRN Reason: Protocol Last Admin: 02/16/18 21:14 Dose: 40 mg Famotidine (Pepcid) 20 mg PO BID [facility] Last Admin: 02/17/18 09:02 Dose: 20 mg Glucagon (Glucagen Diagnostic Kit) 0 mg IM STAT PRN; Protocol PRN Reason: Hypoglycemia Protocol Guaifenesin (Mucinex La) 600 mg PO Q12 [facility] Last Admin: 02/17/18 09:01 Dose: 600 mg Sodium Chloride (Sodium Chloride 0.9%) 1,000 mls @ 110 mls/hr IV .Q9H6M [facility] Last Admin: 02/16/18 13:26 Dose: Not Given Meropenem 1 gm/ Sodium (Chloride) 100 mls @ 100 mls/hr IVPB Q8 [facility] PRN Reason: Protocol Last Admin: 02/17/18 09:00 Dose: 100 mls/hr Insulin Human Lispro (Humalog) 0 units SC ACHS [facility] PRN Reason: Protocol Last Admin: 02/17/18 06:47 Dose: 6 units Lactic Acid (Lac-Hydrin 12% Lotion (225 G)) 1 applic TOP BID [facility] Last Admin: 02/17/18 09:03 Dose: 1 applic Lisinopril (Zestril) 5 mg PO DAILY [facility] Last Admin: 02/17/18 09:00 Dose: 5 mg Metformin HCl (Glucophage) 500 mg PO BIDWM [facility] Last Admin: 02/17/18 08:03 Dose: 500 mg Methylprednisolone (Solu-Medrol) 40 mg IV Q12 [facility] Last Admin: 02/17/18 09:02 Dose: 40 mg Montelukast Sodium (Singulair) 10 mg PO HS [facility] Last Admin: 02/16/18 21:13 Dose: 10 mg Nystatin (Nystatin Oral Susp) 5 ml PO QID [facility] Last Admin: 02/17/18 08:59 Dose: 5 ml - Labs Labs: 02/15/18 08:30 02/15/18 08:30 PT 11.1 Seconds (9.8-13.1) 02/11/18 18:06 INR 1.0 (0.9-1.2) 02/11/18 18:06 APTT 23.4 Seconds (25.6-37.1) L 02/11/18 18:06 - Constitutional Appears: No Acute Distress, Older Than Stated Age - Head Exam Head Exam: ATRAUMATIC - Eye Exam Eye Exam: Normal appearance - ENT Exam ENT Exam: Mucous Membranes Moist - Respiratory Exam Respiratory Exam: Chest Wall Tenderness, Rhonchi, Wheezes. absent: Clear to Ausculation Bilateral, NORMAL BREATHING PATTERN - Cardiovascular Exam Cardiovascular Exam: REGULAR RHYTHM, RRR, +S1 - GI/Abdominal Exam GI & Abdominal Exam: Soft, Normal Bowel Sounds. absent: Tenderness - Extremities Exam Extremities Exam: Normal Inspection. absent: Pedal Edema, Tenderness - Back Exam Back Exam: NORMAL INSPECTION - Neurological Exam Neurological Exam: Alert, Awake, Oriented x3 - Psychiatric Exam Psychiatric exam: Normal Affect, Normal Mood - Skin Skin Exam: Dry, Intact, Warm Assessment and Plan - Assessment and Plan (Free Text) Assessment: 67 y/o homeless man w/ pmh of COPD, NIDDM2, HTN, PE with IVC filter, noncompliant with medication admitted for acute COPD exacerbation. Plan: Acute COPD exacerbation bronchitis type - Wheezing persists - will taper steroids, solumedrol 20 mg IV Q12h ordered - c/w meropenem 100mL/hr day #3, 5 more days, Duo-nebs q4h INH [facility], Albuterol Q4hr INH prn, Guaifenesin 600 mg PO Q12h, O2 via NC, 2L PRN - CXR no active disease - Sputum culture: ESBL E. Coli - ID Consult on board: Will follow recommendations Leukocytosis - Improving - Last WBC 11.8 - Likely steroids side effect(Patient has multiple ER visits and short hosp admissions where he has been given steroids) -CBC ordered, will monitor Chest pain - reproducible on palpation - likely due to costochondritis secondary to coughing and bronchitis - Trop x3 normal - EKG NSR - Tylenol 650 mg Q6hr PRN Dysuria/Hematuria - UA >500 glucose, Small blood - Urine culture pending - GC/Chlamydia pending Hypertension - asymptomatic - Lisinopril 5 mg PO JEFFREY - monitor BP Oral Thrush - Resolved - Nystatin 5 mL PO swish and swallow (day 6/7) - Will monitor NIDDM2 -uncontrolled, was not on medications at home - Levemir 5 units SC QHS added - last hgb a1c 7.3 on 01/2018 - metformin 500 mg PO BID and insulin coverage scale - accucheck ACHS - hypoglycemic protocol in place Left inguinal hernia - Asymptomatic - Outpatient F/U with surgery. Psoriasis - Chronic - not on treatment - Apply lac-hydrin to legs and arms Prophylaxis - DVT: Lovenox 40 mg sc HS - AAD: Florastor
[2018-02-17] MEDS ORDERED: methylPREDNISolone 20 MG in Sodium Chloride 0.9% 50 ML IVPB SCH (21:00)
[2018-02-17] MEDS: MethylPREDNISolone 40 mg Vial IVP SCH (21:03)
[2018-02-17] MEDS: Enoxaparin 40 mg Syringe SC SCH (21:44)
[2018-02-17] MEDS: Insulin Detemir 100 Units/ml Inj SC SCH (21:59)
[2018-02-18] MEDS: Meropenem 1 GM in Sodium Chloride 0.9% 100 ML IVPB SCH ×3 (01:03→16:18)
[2018-02-18] MEDS: Albuterol-Ipratrop 3 mg / 0.5 (3 ml) UD INH SCH ×5 (04:44→23:56)
[2018-02-18 06:13] LABS: BASO % 0.2 % (0.0-2.0); HEMOGLOBIN 12.2 g/dL (12.0-18.0); LYMPH # 0.9 K/uL (1.0-4.3); LYMPH % 7.9 % (20.0-40.0); MEAN CELL VOLUME 81.5 fl (80.0-94.0); MEAN CORPUSCULAR HEMOGLOBIN 26.2 pg (27.0-31.0); MEAN CORPUSCULAR HGB CONC 32.2 g/dL (33.0-37.0); MEAN PLATELET VOLUME 8.4 fl (7.2-11.7); MONO # 0.7 K/uL (0.0-0.8); MONO % 5.9 % (0.0-10.0); NEUT # 10.2 K/uL (1.8-7.0); PLATELET COUNT 197 K/uL (130-400); RBC 4.64 Mil/uL (4.40-5.90); RED CELL DISTRIBUTION WIDTH 16.5 % (11.5-14.5); WHITE BLOOD COUNT 11.9 K/uL (4.8-10.8)
[2018-02-18 06:32] LABS: ALB/GLOB RATIO 1.2 (1.0-2.1); ALBUMIN 3.2 g/dL (3.5-5.0); ALT/SGPT 29 U/L (21-72); AST/SGOT 21 U/L (17-59); BLOOD UREA NITROGEN 42 mg/dl (9-20); CALCIUM 9.2 mg/dL (8.4-10.2); GFR AFRICAN-AMERICAN > 60; GFR NON-AFRICAN AMERICAN > 60
[2018-02-18] MEDS: Budesonide 0.5 mg/2 ml Inhal Susp UD INH SCH ×2 (07:15→19:31)
[2018-02-18] MEDS: Insulin Lispro (humaLOG) 100 Units/ml Inj SC SCH ×4 (10:06→22:30)
[2018-02-18] MEDS: guaiFENesin 600 mg ER Tab PO SCH ×2 (10:07→21:11)
[2018-02-18] MEDS: Nystatin 100,000 Units/ml Oral Susp 5 ml UD PO SCH ×4 (10:07→21:11)
[2018-02-18] MEDS: Cholecalciferol 1,000 INTLU TAB PO SCH (10:08)
[2018-02-18] MEDS: MethylPREDNISolone 40 mg Vial IVP SCH ×2 (10:08→21:10)
[2018-02-18 10:23] LABS: LYMPHOCYTE 8 % (20-50); MONOCYTE 7 % (0-10); NEUTROPHIL 85 % (42-75); PLATELET ESTIMATE NORMAL (NORMAL); TOTAL CELLS COUNTED 100
[2018-02-18 10:24] LABS: ANISOCYTOSIS SLIGHT; LARGE PLATELETS PRESENT; OVALOCYTES MODERATE
--- NOTE | 2018-02-18 13:26 | CP.PCM.PN ---
Subjective - Date & Time of Evaluation Date of Evaluation: 02/18/18 Time of Evaluation: 13:23 - Subjective Subjective: Patient seen and examined. He sitting in chair w/ O2 NC. He states that he feels that his symptoms are improving but that he continues to have cough, wheezing, and chest pain, which he describes as "heavy inside and tightness." He denies difficulty breathing, dizziness, headaches, numbness/tingling. Objective - Vital Signs/Intake and Output Vital Signs (last 24 hours): Temp Pulse Resp BP Pulse Ox 97.7 F 75 20 131/65 62 L 02/18/18 08:20 02/18/18 10:09 02/18/18 08:20 02/18/18 12:00 02/18/18 12:00 - Medications Medications: Current Medications Acetaminophen (Tylenol 325mg Tab) 650 mg PO Q6 PRN PRN Reason: Pain, Mild (1-3) Albuterol Sulfate (Albuterol 0.083% Inhal Susan (2.5 Mg/3 Ml) Ud) 2.5 mg INH RQ4 PRN PRN Reason: Shortness of Breath Albuterol/Ipratropium (Duoneb 3 Mg/0.5 Mg (3 Ml) Ud) 3 ml INH RQ4 [facility] Budesonide (Pulmicort Respules) 0.5 mg INH RBID [facility] Last Admin: 02/18/18 07:15 Dose: 0.5 mg Dextrose (Dextrose 50% Inj) 0 ml IV STAT PRN; Protocol PRN Reason: Hypoglycemia Protocol Dextrose (Glutose 15) 0 gm PO ONCE PRN; Protocol PRN Reason: Hypoglycemia Protocol Enoxaparin Sodium (Lovenox) 40 mg SC HS [facility] PRN Reason: Protocol Last Admin: 02/17/18 21:44 Dose: 40 mg Famotidine (Pepcid) 20 mg PO BID [facility] Last Admin: 02/18/18 10:08 Dose: 20 mg Fluconazole (Diflucan) 200 mg PO DAILY [facility] PRN Reason: Protocol Last Admin: 02/18/18 13:17 Dose: 200 mg Glucagon (Glucagen Diagnostic Kit) 0 mg IM STAT PRN; Protocol PRN Reason: Hypoglycemia Protocol Guaifenesin (Mucinex La) 600 mg PO Q12 [facility] Last Admin: 02/18/18 10:07 Dose: 600 mg Meropenem 1 gm/ Sodium (Chloride) 100 mls @ 100 mls/hr IVPB Q8 [facility] PRN Reason: Protocol Last Admin: 02/18/18 10:07 Dose: 100 mls/hr Insulin Detemir (Levemir) 5 units SC [facility] Last Admin: 02/17/18 21:59 Dose: 5 u Insulin Human Lispro (Humalog) 0 units SC ACHS [facility] PRN Reason: Protocol Last Admin: 02/18/18 13:18 Dose: 2 units Lactic Acid (Lac-Hydrin 12% Lotion (225 G)) 1 applic TOP BID [facility] Last Admin: 02/18/18 10:17 Dose: 1 applic Lisinopril (Zestril) 5 mg PO DAILY [facility] Last Admin: 02/18/18 10:09 Dose: 5 mg Metformin HCl (Glucophage) 500 mg PO BIDWM [facility] Last Admin: 02/18/18 10:05 Dose: 500 mg Methylprednisolone (Solu-Medrol) 20 mg IVP Q12H [facility] Last Admin: 02/18/18 10:08 Dose: 20 mg Montelukast Sodium (Singulair) 10 mg PO [facility] Last Admin: 02/17/18 21:42 Dose: 10 mg Nystatin (Nystatin Oral Susp) 5 ml PO QID [facility] Last Admin: 02/18/18 13:18 Dose: 5 ml - Labs Labs: 02/18/18 05:40 02/18/18 05:40 PT 11.1 Seconds (9.8-13.1) 02/11/18 18:06 INR 1.0 (0.9-1.2) 02/11/18 18:06 APTT 23.4 Seconds (25.6-37.1) L 02/11/18 18:06 - Constitutional Appears: No Acute Distress - Respiratory Exam Respiratory Exam: Rhonchi, Wheezes - Cardiovascular Exam Cardiovascular Exam: REGULAR RHYTHM, RRR, +S1, +S2 - GI/Abdominal Exam GI & Abdominal Exam: Soft, Normal Bowel Sounds. absent: Tenderness - Extremities Exam Extremities Exam: Normal Inspection. absent: Pedal Edema, Tenderness - Neurological Exam Neurological Exam: Alert, Awake, Oriented x3 - Psychiatric Exam Psychiatric exam: Normal Affect - Skin Skin Exam: Dry, Warm Assessment and Plan - Assessment and Plan (Free Text) Assessment: Assessment: 67 y/o homeless man w/ pmh of COPD, NIDDM2, HTN, PE with IVC filter, noncompliant with medication admitted for acute COPD exacerbation. Plan: Acute COPD exacerbation bronchitis type - Wheezing persists - c/w solumedrol 20 mg IV Q12h, meropenem 100mL/hr day #4, 4 more days, Duo- nebs q4h INH [facility], Albuterol Q4hr INH prn, Guaifenesin 600 mg PO Q12h, O2 via NC , 2L PRN - CXR no active disease - Sputum culture: ESBL E. Coli - ID Consult on board: Will follow recommendations Leukocytosis - Improving - Last WBC 11.9 - Likely steroids side effect(Patient has multiple ER visits and short hosp admissions where he has been given steroids) - Will monitor Chest pain - reproducible on palpation - likely due to costochondritis secondary to coughing and bronchitis - Trop x3 normal - EKG NSR - Tylenol 650 mg Q6hr PRN Dysuria/Hematuria - UA >500 glucose and budding yeast - Started Fluconazole 200mg PO QD day 1 - awaiting urine cultures, will check sensitivity Hypertension - asymptomatic - Lisinopril 5 mg PO JEFFREY - monitor BP Oral Thrush - Resolved - Nystatin 5 mL PO swish and swallow (one more day) - Will monitor NIDDM2 -uncontrolled, was not on medications at home - Levemir 5 units SC QHS added - last hgb a1c 7.3 on 01/2018 - metformin 500 mg PO BID and insulin coverage scale - accucheck ACHS - hypoglycemic protocol in place Left inguinal hernia - Asymptomatic - Outpatient F/U with surgery. Psoriasis - Chronic - not on treatment - Apply lac-hydrin to legs and arms Prophylaxis - DVT: Lovenox 40 mg sc HS - AAD: Florastor
--- NOTE | 2018-02-18 18:37 | CP.PCM.PN ---
Subjective - Date & Time of Evaluation Date of Evaluation: 02/18/18 Time of Evaluation: 18:37 - Subjective Subjective: Id note- Pt. seen and examined today. Pt. states he feels better but he still has cough and some sob . denies any fever. Objective - Vital Signs/Intake and Output Vital Signs (last 24 hours): Temp Pulse Resp BP Pulse Ox 98.2 F 73 20 136/77 100 02/18/18 16:26 02/18/18 16:26 02/18/18 16:26 02/18/18 16:26 02/18/18 16:26 - Medications Medications: Current Medications Acetaminophen (Tylenol 325mg Tab) 650 mg PO Q6 PRN PRN Reason: Pain, Mild (1-3) Albuterol Sulfate (Albuterol 0.083% Inhal Susan (2.5 Mg/3 Ml) Ud) 2.5 mg INH RQ4 PRN PRN Reason: Shortness of Breath Albuterol/Ipratropium (Duoneb 3 Mg/0.5 Mg (3 Ml) Ud) 3 ml INH RQ4 [facility] Last Admin: 02/18/18 15:42 Dose: 3 ml Budesonide (Pulmicort Respules) 0.5 mg INH RBID [facility] Last Admin: 02/18/18 07:15 Dose: 0.5 mg Dextrose (Dextrose 50% Inj) 0 ml IV STAT PRN; Protocol PRN Reason: Hypoglycemia Protocol Dextrose (Glutose 15) 0 gm PO ONCE PRN; Protocol PRN Reason: Hypoglycemia Protocol Enoxaparin Sodium (Lovenox) 40 mg SC HS [facility] PRN Reason: Protocol Last Admin: 02/17/18 21:44 Dose: 40 mg Famotidine (Pepcid) 20 mg PO BID [facility] Last Admin: 02/18/18 16:18 Dose: 20 mg Fluconazole (Diflucan) 200 mg PO DAILY [facility] PRN Reason: Protocol Last Admin: 02/18/18 13:17 Dose: 200 mg Glucagon (Glucagen Diagnostic Kit) 0 mg IM STAT PRN; Protocol PRN Reason: Hypoglycemia Protocol Guaifenesin (Mucinex La) 600 mg PO Q12 [facility] Last Admin: 02/18/18 10:07 Dose: 600 mg Meropenem 1 gm/ Sodium (Chloride) 100 mls @ 100 mls/hr IVPB Q8 [facility] PRN Reason: Protocol Last Admin: 02/18/18 16:18 Dose: 100 mls/hr Insulin Detemir (Levemir) 5 units SC [facility] Last Admin: 02/17/18 21:59 Dose: 5 u Insulin Human Lispro (Humalog) 0 units SC [facility] PRN Reason: Protocol Last Admin: 02/18/18 16:13 Dose: 1 units Lactic Acid (Lac-Hydrin 12% Lotion (225 G)) 1 applic TOP BID [facility] Last Admin: 02/18/18 16:12 Dose: 1 applic Lisinopril (Zestril) 5 mg PO DAILY [facility] Last Admin: 02/18/18 10:09 Dose: 5 mg Metformin HCl (Glucophage) 500 mg PO BIDWM [facility] Last Admin: 02/18/18 16:11 Dose: 500 mg Methylprednisolone (Solu-Medrol) 20 mg IVP Q12H [facility] Last Admin: 02/18/18 10:08 Dose: 20 mg Montelukast Sodium (Singulair) 10 mg PO HS [facility] Last Admin: 02/17/18 21:42 Dose: 10 mg Nystatin (Nystatin Oral Susp) 5 ml PO QID [facility] Last Admin: 02/18/18 16:11 Dose: 5 ml - Labs Labs: - Additional Findings Additional findings: - Constitutional Appears: No Acute Distress - Head Exam Head Exam: ATRAUMATIC - Eye Exam Eye Exam: EOMI - ENT Exam ENT Exam: Normal Oropharynx - Neck Exam Neck exam: Positive for: Full Rom - Respiratory Exam Respiratory Exam: NORMAL BREATHING PATTERN Additional comments: no wheezing some scattered rhonchi - Cardiovascular Exam Cardiovascular Exam: RRR, +S1, +S2 - GI/Abdominal Exam GI & Abdominal Exam: Normal Bowel Sounds, Soft Additional comments: NT, ND - Extremities Exam Additional comments: No edema B/L LE - Neurological Exam Neurological exam: Alert, Oriented x 3 Laboratory Results - last 72 hr 02/12/18 02/15/18 02/16/18 08:48 21:24 06:07 WBC RBC Hgb Hct MCV MCH MCHC RDW Plt Count MPV Neut % (Auto) Lymph % (Auto) Sharkey % (Auto) Eos % (Auto) Baso % (Auto) Neut # (Auto) Lymph # (Auto) Sharkey # (Auto) Eos # (Auto) Baso # (Auto) Neutrophils % (Manual) Lymphocytes % (Manual) Monocytes % (Manual) Platelet Estimate Large Platelets Anisocytosis (manual) Macrocytosis (manual) Ovalocytes Sodium Potassium Chloride Carbon Dioxide Anion Gap BUN Creatinine Est GFR ( Amer) Est GFR (Non-Af Amer) POC Glucose (mg/dL) 238 H 224 H Random Glucose Calcium Total Bilirubin AST ALT Alkaline Phosphatase Total Protein Albumin Globulin Albumin/Globulin Ratio Urine Color Urine Clarity Urine pH Ur Specific Bunn Urine Protein Urine Glucose (UA) Urine Ketones Urine Blood Urine Nitrate Urine Bilirubin Urine Urobilinogen Ur Leukocyte Esterase Urine RBC (Auto) Urine Microscopic WBC Ur Squamous Epith Cells Urine Yeast (Budding) C.trachomatis RNA (TMA) Not detected N.gonorrhoeae RNA (TMA) Not detected 02/16/18 02/16/18 02/16/18 10:24 10:55 15:48 WBC RBC Hgb Hct MCV MCH MCHC RDW Plt Count MPV Neut % (Auto) Lymph % (Auto) Sharkey % (Auto) Eos % (Auto) Baso % (Auto) Neut # (Auto) Lymph # (Auto) Sharkey # (Auto) Eos # (Auto) Baso # (Auto) Neutrophils % (Manual) Lymphocytes % (Manual) Monocytes % (Manual) Platelet Estimate Large Platelets Anisocytosis (manual) Macrocytosis (manual) Ovalocytes Sodium Potassium Chloride Carbon Dioxide Anion Gap BUN Creatinine Est GFR ( Amer) Est GFR (Non-Af Amer) POC Glucose (mg/dL) 239 H 360 H Random Glucose Calcium Total Bilirubin AST ALT Alkaline Phosphatase Total Protein Albumin Globulin Albumin/Globulin Ratio Urine Color Straw Urine Clarity Clear Urine pH 6.0 Ur Specific Bunn 1.009 Urine Protein Negative Urine Glucose (UA) >=500 Urine Ketones Negative Urine Blood Negative Urine Nitrate Negative Urine Bilirubin Negative Urine Urobilinogen 0.2-1.0 Ur Leukocyte Esterase Neg Urine RBC (Auto) 3 Urine Microscopic WBC 1 Ur Squamous Epith Cells < 1 Urine Yeast (Budding) Many H C.trachomatis RNA (TMA) N.gonorrhoeae RNA (TMA) 02/16/18 02/17/18 02/17/18 22:11 06:08 10:47 WBC RBC Hgb Hct MCV MCH MCHC RDW Plt Count MPV Neut % (Auto) Lymph % (Auto) Sharkey % (Auto) Eos % (Auto) Baso % (Auto) Neut # (Auto) Lymph # (Auto) Sharkey # (Auto) Eos # (Auto) Baso # (Auto) Neutrophils % (Manual) Lymphocytes % (Manual) Monocytes % (Manual) Platelet Estimate Large Platelets Anisocytosis (manual) Macrocytosis (manual) Ovalocytes Sodium Potassium Chloride Carbon Dioxide Anion Gap BUN Creatinine Est GFR ( Amer) Est GFR (Non-Af Amer) POC Glucose (mg/dL) 244 H 315 H 146 H Random Glucose Calcium Total Bilirubin AST ALT Alkaline Phosphatase Total Protein Albumin Globulin Albumin/Globulin Ratio Urine Color Urine Clarity Urine pH Ur Specific Bunn Urine Protein Urine Glucose (UA) Urine Ketones Urine Blood Urine Nitrate Urine Bilirubin Urine Urobilinogen Ur Leukocyte Esterase Urine RBC (Auto) Urine Microscopic WBC Ur Squamous Epith Cells Urine Yeast (Budding) C.trachomatis RNA (TMA) N.gonorrhoeae RNA (TMA) 02/17/18 02/17/18 02/18/18 15:40 21:44 05:07 WBC RBC Hgb Hct MCV MCH MCHC RDW Plt Count MPV Neut % (Auto) Lymph % (Auto) Sharkey % (Auto) Eos % (Auto) Baso % (Auto) Neut # (Auto) Lymph # (Auto) Sharkey # (Auto) Eos # (Auto) Baso # (Auto) Neutrophils % (Manual) Lymphocytes % (Manual) Monocytes % (Manual) Platelet Estimate Large Platelets Anisocytosis (manual) Macrocytosis (manual) Ovalocytes Sodium Potassium Chloride Carbon Dioxide Anion Gap BUN Creatinine Est GFR ( Amer) Est GFR (Non-Af Amer) POC Glucose (mg/dL) 351 H 107 279 H Random Glucose Calcium Total Bilirubin AST ALT Alkaline Phosphatase Total Protein Albumin Globulin Albumin/Globulin Ratio Urine Color Urine Clarity Urine pH Ur Specific Bunn Urine Protein Urine Glucose (UA) Urine Ketones Urine Blood Urine Nitrate Urine Bilirubin Urine Urobilinogen Ur Leukocyte Esterase Urine RBC (Auto) Urine Microscopic WBC Ur Squamous Epith Cells Urine Yeast (Budding) C.trachomatis RNA (TMA) N.gonorrhoeae RNA (TMA) 02/18/18 02/18/18 02/18/18 05:40 05:40 10:50 WBC 11.9 H RBC 4.64 Hgb 12.2 Hct 37.8 MCV 81.5 MCH 26.2 L MCHC 32.2 L RDW 16.5 H Plt Count 197 MPV 8.4 Neut % (Auto) 86.0 H Lymph % (Auto) 7.9 L Sharkey % (Auto) 5.9 Eos % (Auto) 0.0 Baso % (Auto) 0.2 Neut # (Auto) 10.2 H Lymph # (Auto) 0.9 L Sharkey # (Auto) 0.7 Eos # (Auto) 0.0 Baso # (Auto) 0.0 Neutrophils % (Manual) 85 H Lymphocytes % (Manual) 8 L Monocytes % (Manual) 7 Platelet Estimate Normal Large Platelets Present Anisocytosis (manual) Slight Macrocytosis (manual) Slight Ovalocytes Moderate Sodium 134 Potassium 4.7 Chloride 95 L Carbon Dioxide 32 H Anion Gap 12 BUN 42 H Creatinine 0.8 Est GFR ( Amer) > 60 Est GFR (Non-Af Amer) > 60 POC Glucose (mg/dL) 161 H Random Glucose 259 H Calcium 9.2 Total Bilirubin 0.8 AST 21 ALT 29 Alkaline Phosphatase 45 Total Protein 5.8 L Albumin 3.2 L Globulin 2.7 Albumin/Globulin Ratio 1.2 Urine Color Urine Clarity Urine pH Ur Specific Bunn Urine Protein Urine Glucose (UA) Urine Ketones Urine Blood Urine Nitrate Urine Bilirubin Urine Urobilinogen Ur Leukocyte Esterase Urine RBC (Auto) Urine Microscopic WBC Ur Squamous Epith Cells Urine Yeast (Budding) C.trachomatis RNA (TMA) N.gonorrhoeae RNA (TMA) 02/18/18 16:10 WBC RBC Hgb Hct MCV MCH MCHC RDW Plt Count MPV Neut % (Auto) Lymph % (Auto) Sharkey % (Auto) Eos % (Auto) Baso % (Auto) Neut # (Auto) Lymph # (Auto) Sharkey # (Auto) Eos # (Auto) Baso # (Auto) Neutrophils % (Manual) Lymphocytes % (Manual) Monocytes % (Manual) Platelet Estimate Large Platelets Anisocytosis (manual) Macrocytosis (manual) Ovalocytes Sodium Potassium Chloride Carbon Dioxide Anion Gap BUN Creatinine Est GFR ( Amer) Est GFR (Non-Af Amer) POC Glucose (mg/dL) 151 H Random Glucose Calcium Total Bilirubin AST ALT Alkaline Phosphatase Total Protein Albumin Globulin Albumin/Globulin Ratio Urine Color Urine Clarity Urine pH Ur Specific Bunn Urine Protein Urine Glucose (UA) Urine Ketones Urine Blood Urine Nitrate Urine Bilirubin Urine Urobilinogen Ur Leukocyte Esterase Urine RBC (Auto) Urine Microscopic WBC Ur Squamous Epith Cells Urine Yeast (Budding) C.trachomatis RNA (TMA) N.gonorrhoeae RNA (TMA) Microbiology 02/12/18 10:00 Sputum Gram Stain - Final 02/12/18 10:00 Sputum Sputum Culture - Final Escherichia Coli Assessment and Plan (1) COPD exacerbation Status: Acute (2) Dyspnea Status: Acute (3) Sputum culture positive for ESBL E. coli Status: Acute - Assessment and Plan (Free Text) Assessment: A/P- 67 year old male with multiple medical conditions including COPD, DM II admitted with copd exacerbation after recent d/c from hospital. pt. is afebrile minimal leukocytosis has reoslved. sputum cx- light growth ESBL e.coli Plan- continue with IV meropenm to treat the ESBL e.coli sputum cx and copd exacerbation.day #4. advise 1 more day of IV meropenem. nebs and COPD treatment as per primary team.
[2018-02-18] MEDS: Enoxaparin 40 mg Syringe SC SCH (21:10)
[2018-02-18] MEDS: Insulin Detemir 100 Units/ml Inj SC SCH (22:36)
[2018-02-19] MEDS: Meropenem 1 GM in Sodium Chloride 0.9% 100 ML IVPB SCH ×3 (00:50→17:18)
[2018-02-19] MEDS: Albuterol-Ipratrop 3 mg / 0.5 (3 ml) UD INH SCH ×6 (05:08→23:46)
[2018-02-19] MEDS: Budesonide 0.5 mg/2 ml Inhal Susp UD INH SCH ×2 (07:11→19:50)
[2018-02-19] MEDS: MethylPREDNISolone 40 mg Vial IVP SCH (09:25)
[2018-02-19] MEDS: guaiFENesin 600 mg ER Tab PO SCH ×2 (09:25→21:14)
[2018-02-19] MEDS: Nystatin 100,000 Units/ml Oral Susp 5 ml UD PO SCH ×4 (09:25→21:13)
[2018-02-19] MEDS: Insulin Lispro (humaLOG) 100 Units/ml Inj SC SCH ×4 (09:26→21:55)
--- NOTE | 2018-02-19 10:11 | CP.PCM.PN ---
Subjective - Date & Time of Evaluation Date of Evaluation: 02/19/18 Time of Evaluation: 08:05 - Subjective Subjective: Patient seen and examined at bedside. Reports productive cough and chest congestion. Denies chest pain or SOB. Tolerating diet and ambulating without difficulty. Objective - Vital Signs/Intake and Output Vital Signs (last 24 hours): Temp Pulse Resp BP Pulse Ox 97.7 F 73 20 122/65 100 02/19/18 08:18 02/19/18 08:18 02/19/18 08:18 02/19/18 08:18 02/19/18 08:18 - Medications Medications: Current Medications Acetaminophen (Tylenol 325mg Tab) 650 mg PO Q6 PRN PRN Reason: Pain, Mild (1-3) Albuterol Sulfate (Albuterol 0.083% Inhal Susan (2.5 Mg/3 Ml) Ud) 2.5 mg INH RQ4 PRN PRN Reason: Shortness of Breath Albuterol/Ipratropium (Duoneb 3 Mg/0.5 Mg (3 Ml) Ud) 3 ml INH RQ4 JEFFREY Last Admin: 02/19/18 07:10 Dose: 3 ml Budesonide (Pulmicort Respules) 0.5 mg INH RBID [facility] Last Admin: 02/19/18 07:11 Dose: 0.5 mg Dextrose (Dextrose 50% Inj) 0 ml IV STAT PRN; Protocol PRN Reason: Hypoglycemia Protocol Dextrose (Glutose 15) 0 gm PO ONCE PRN; Protocol PRN Reason: Hypoglycemia Protocol Enoxaparin Sodium (Lovenox) 40 mg SC HS JEFFREY PRN Reason: Protocol Last Admin: 02/18/18 21:10 Dose: 40 mg Famotidine (Pepcid) 20 mg PO BID [facility] Last Admin: 02/19/18 09:27 Dose: 20 mg Fluconazole (Diflucan) 200 mg PO DAILY JEFFREY PRN Reason: Protocol Last Admin: 02/19/18 09:26 Dose: 200 mg Glucagon (Glucagen Diagnostic Kit) 0 mg IM STAT PRN; Protocol PRN Reason: Hypoglycemia Protocol Guaifenesin (Mucinex La) 600 mg PO Q12 [facility] Last Admin: 02/19/18 09:25 Dose: 600 mg Meropenem 1 gm/ Sodium (Chloride) 100 mls @ 100 mls/hr IVPB Q8 JEFFREY PRN Reason: Protocol Last Admin: 02/19/18 09:24 Dose: 100 mls/hr Insulin Detemir (Levemir) 5 units SC [facility] Last Admin: 02/18/18 22:36 Dose: 5 u Insulin Human Lispro (Humalog) 0 units SC [facility] PRN Reason: Protocol Last Admin: 02/19/18 09:26 Dose: 3 units Lactic Acid (Lac-Hydrin 12% Lotion (225 G)) 1 applic TOP BID [facility] Last Admin: 02/19/18 09:26 Dose: 1 applic Lisinopril (Zestril) 5 mg PO DAILY [facility] Last Admin: 02/19/18 09:27 Dose: 5 mg Metformin HCl (Glucophage) 500 mg PO BIDWM [facility] Last Admin: 02/19/18 09:25 Dose: 500 mg Methylprednisolone (Solu-Medrol) 20 mg IVP Q12H [facility] Last Admin: 02/19/18 09:25 Dose: 20 mg Montelukast Sodium (Singulair) 10 mg PO [facility] Last Admin: 02/18/18 21:11 Dose: 10 mg Nystatin (Nystatin Oral Susp) 5 ml PO QID [facility] Last Admin: 02/19/18 09:25 Dose: 5 ml - Labs Labs: 02/18/18 05:40 02/18/18 05:40 PT 11.1 Seconds (9.8-13.1) 02/11/18 18:06 INR 1.0 (0.9-1.2) 02/11/18 18:06 APTT 23.4 Seconds (25.6-37.1) L 02/11/18 18:06 - Constitutional Appears: No Acute Distress - Head Exam Head Exam: ATRAUMATIC, NORMOCEPHALIC - Eye Exam Eye Exam: EOMI Pupil Exam: PERRL - ENT Exam ENT Exam: Mucous Membranes Moist - Neck Exam Neck Exam: Full ROM. absent: Lymphadenopathy - Respiratory Exam Respiratory Exam: Wheezes (moderate diffuse expiratory wheeze throughout, minimal inspiratory wheeze) - Cardiovascular Exam Cardiovascular Exam: REGULAR RHYTHM, +S1, +S2 - GI/Abdominal Exam GI & Abdominal Exam: Soft, Normal Bowel Sounds (obese). absent: Tenderness - Extremities Exam Extremities Exam: Full ROM - Neurological Exam Neurological Exam: Alert, Awake, CN II-XII Intact, Oriented x3 - Psychiatric Exam Psychiatric exam: Normal Affect, Normal Mood - Skin Skin Exam: Dry, Warm Assessment and Plan - Assessment and Plan (Free Text) Assessment: 67 yr old M admitted for acute COPD exacerbation with PMHx including COPD, NIDDM2, HTN, PE with IVC filter. Patient currently receiving IV antibiotics for ESBL positive sputum culture. Plan: Acute COPD exacerbation bronchitis type -Wheezing persists, O2 saturation improving -will taper steroids to Prednisone 40 mg PO QD, start Mucomyst -continue meropenem 100mL/hr day #5/5 upon last dose today, Duo-nebs q4h INH JEFFREY , Guaifenesin 600 mg PO Q12h, supplemental O2 via NC-2L PRN -CXR no active disease -Sputum culture: ESBL E. Coli -ID Consult on board: Will follow recommendations Leukocytosis - Improving - Last WBC 11.9 - Likely steroids side effect(Patient has multiple ER visits and short hosp admissions where he has been given steroids) - Will monitor Chest pain - reproducible on palpation - likely due to costochondritis secondary to coughing and bronchitis - Trop x3 normal - EKG NSR - Tylenol 650 mg Q6hr PRN Dysuria/Hematuria - UA >500 glucose and budding yeast - Started Fluconazole 200mg PO QD day 2 - awaiting urine cultures, will check sensitivity Hypertension - asymptomatic - Lisinopril 5 mg PO JEFFREY - monitor BP Oral Thrush - Resolved - Nystatin 5 mL PO swish and swallow-last day today - Will monitor NIDDM2 -uncontrolled, was not on medications at home - Levemir 5 units SC QHS added - last hgb a1c 7.3 on 01/2018 - metformin 500 mg PO BID and insulin coverage scale - accucheck ACHS - hypoglycemic protocol in place Left inguinal hernia - Asymptomatic - Outpatient F/U with surgery. Psoriasis - Chronic - not on treatment - Apply lac-hydrin to legs and arms Prophylaxis - DVT: Lovenox 40 mg sc HS - AAD: Florastor
[2018-02-19] MEDS ORDERED: Acetylcysteine 20% Inhal Soln (4ml) PO SCH (12:30)
[2018-02-19] MEDS: Acetylcysteine 20% Inhal Soln (4ml) INH SCH (19:50)
[2018-02-19] MEDS: Enoxaparin 40 mg Syringe SC SCH (21:13)
[2018-02-19] MEDS: Insulin Detemir 100 Units/ml Inj SC SCH (21:55)
[2018-02-20] MEDS: Meropenem 1 GM in Sodium Chloride 0.9% 100 ML IVPB SCH (01:33)
[2018-02-20 07:56] LABS: BASO % 0.3 % (0.0-2.0); LYMPH # 1.3 K/uL (1.0-4.3); LYMPH % 8.9 % (20.0-40.0); MEAN CELL VOLUME 80.5 fl (80.0-94.0); MEAN CORPUSCULAR HEMOGLOBIN 26.6 pg (27.0-31.0); MEAN PLATELET VOLUME 8.4 fl (7.2-11.7); MONO # 0.9 K/uL (0.0-0.8); MONO % 6.2 % (0.0-10.0); NEUT # 12.4 K/uL (1.8-7.0); NEUT % 84.6 % (50.0-75.0); RBC 4.88 Mil/uL (4.40-5.90); RED CELL DISTRIBUTION WIDTH 16.7 % (11.5-14.5); WHITE BLOOD COUNT 14.6 K/uL (4.8-10.8)
[2018-02-20] MEDS: Albuterol-Ipratrop 3 mg / 0.5 (3 ml) UD INH SCH ×4 (08:04→19:02)
[2018-02-20] MEDS: Budesonide 0.5 mg/2 ml Inhal Susp UD INH SCH ×2 (08:04→19:02)
[2018-02-20] MEDS: Acetylcysteine 20% Inhal Soln (4ml) INH SCH ×3 (08:04→19:01)
[2018-02-20 08:12] LABS: BLOOD UREA NITROGEN 52 mg/dl (9-20); CALCIUM 9.3 mg/dL (8.4-10.2); GFR AFRICAN-AMERICAN > 60; GFR NON-AFRICAN AMERICAN > 60
[2018-02-20] MEDS: guaiFENesin 600 mg ER Tab PO SCH ×2 (08:29→21:29)
[2018-02-20] MEDS: Insulin Lispro (humaLOG) 100 Units/ml Inj SC SCH ×4 (08:34→23:25)
--- NOTE | 2018-02-20 15:01 | CP.PCM.PN ---
Subjective - Date & Time of Evaluation Date of Evaluation: 02/20/18 Time of Evaluation: 14:58 - Subjective Subjective: Patient sitting up in chair w/ bouts of productive cough. He states that he coughs up sputum that is brownish-yellowish in color. He states that he continues to have chest pain, difficultly breathing and cough. . He declined the acetylcysteine a few times as it made him vomit in the past. He is able to ambulate independently from chair to restroom. Objective - Vital Signs/Intake and Output Vital Signs (last 24 hours): Temp Pulse Resp BP Pulse Ox 97.9 F 78 19 136/75 100 02/20/18 07:37 02/20/18 07:37 02/20/18 07:37 02/20/18 07:37 02/20/18 07:37 - Medications Medications: Current Medications Acetaminophen (Tylenol 325mg Tab) 650 mg PO Q6 PRN PRN Reason: Pain, Mild (1-3) Acetylcysteine (Acetylcysteine 20%) 2 ml INH RBID [facility] Stop: 02/21/18 08:01 Last Admin: 02/20/18 12:01 Dose: 2 ml Albuterol/Ipratropium (Duoneb 3 Mg/0.5 Mg (3 Ml) Ud) 3 ml INH RQ4 [facility] Last Admin: 02/20/18 12:02 Dose: 3 ml Budesonide (Pulmicort Respules) 0.5 mg INH RBID [facility] Last Admin: 02/20/18 08:04 Dose: 0.5 mg Dextrose (Dextrose 50% Inj) 0 ml IV STAT PRN; Protocol PRN Reason: Hypoglycemia Protocol Dextrose (Glutose 15) 0 gm PO ONCE PRN; Protocol PRN Reason: Hypoglycemia Protocol Enoxaparin Sodium (Lovenox) 40 mg SC HS [facility] PRN Reason: Protocol Last Admin: 02/19/18 21:13 Dose: 40 mg Famotidine (Pepcid) 20 mg PO BID [facility] Last Admin: 02/20/18 08:29 Dose: 20 mg Fluconazole (Diflucan) 200 mg PO DAILY [facility] PRN Reason: Protocol Last Admin: 02/20/18 08:29 Dose: 200 mg Glucagon (Glucagen Diagnostic Kit) 0 mg IM STAT PRN; Protocol PRN Reason: Hypoglycemia Protocol Guaifenesin (Mucinex La) 600 mg PO Q12 [facility] Last Admin: 08/05/18 08:29 Dose: 600 mg Insulin Detemir (Levemir) 5 units SC HS [facility] Last Admin: 02/19/18 21:55 Dose: 5 u Insulin Human Lispro (Humalog) 0 units SC [facility] PRN Reason: Protocol Last Admin: 02/20/18 12:19 Dose: 2 units Lactic Acid (Lac-Hydrin 12% Lotion (225 G)) 1 applic TOP BID [facility] Last Admin: 02/20/18 08:30 Dose: 1 applic Lisinopril (Zestril) 5 mg PO DAILY [facility] Last Admin: 02/20/18 08:29 Dose: 5 mg Metformin HCl (Glucophage) 500 mg PO BIDWM [facility] Last Admin: 02/20/18 08:29 Dose: 500 mg Montelukast Sodium (Singulair) 10 mg PO HS [facility] Last Admin: 02/19/18 21:14 Dose: 10 mg Prednisone (Prednisone Tab) 40 mg PO DAILY [facility] Last Admin: 02/20/18 08:29 Dose: 40 mg - Labs Labs: 02/20/18 05:30 02/20/18 05:30 PT 11.1 Seconds (9.8-13.1) 02/11/18 18:06 INR 1.0 (0.9-1.2) 02/11/18 18:06 APTT 23.4 Seconds (25.6-37.1) L 02/11/18 18:06 - Constitutional Appears: No Acute Distress, Older Than Stated Age - Eye Exam Eye Exam: Normal appearance - ENT Exam ENT Exam: Mucous Membranes Moist - Respiratory Exam Respiratory Exam: Rhonchi, Wheezes. absent: Respiratory Distress - Cardiovascular Exam Cardiovascular Exam: RRR, +S1, +S2 - GI/Abdominal Exam GI & Abdominal Exam: Soft, Normal Bowel Sounds. absent: Tenderness - Extremities Exam Extremities Exam: Normal Inspection. absent: Joint Swelling, Pedal Edema, Tenderness - Neurological Exam Neurological Exam: Alert, Awake, Oriented x3 - Psychiatric Exam Psychiatric exam: Normal Affect, Normal Mood - Skin Skin Exam: Dry, Intact, Warm Assessment and Plan - Assessment and Plan (Free Text) Assessment: Assessment: 67 y/o male who was admitted for acute COPD exacerbation with PMHx including COPD, NIDDM2, HTN, PE with IVC filter. Completed IV abx rx for ESBL Plan: Acute COPD exacerbation bronchitis type -Wheezing persists, O2 saturation improving -c/w Prednisone 40 mg PO QD and Mucomyst -Duo-nebs q4h INH JEFFREY, Guaifenesin 600 mg PO Q12h, supplemental O2 via NC-2L PRN -CXR no active disease -Sputum culture: ESBL E. Coli s/p 5 days of meropenem -ID Consult on board: Will follow recommendations Leukocytosis - wbcs 14.6 today, patient is afebrile - will culture sputum again - Likely steroids side effect(Patient has multiple ER visits and short hosp admissions where he has been given steroids) - Will monitor Chest pain - reproducible on palpation - likely due to costochondritis secondary to coughing and bronchitis - Trop x3 normal - EKG NSR - Tylenol 650 mg Q6hr PRN Dysuria/Hematuria - UA >500 glucose and budding yeast - c/w Fluconazole 200mg PO QD day 3 - awaiting urine cultures, will check sensitivity Hypertension -chronic uncontrolled - asymptomatic - Lisinopril 5 mg PO JEFFREY - monitor BP and consider adjusting medications NIDDM2 -uncontrolled, was not on medications at home - Levemir 5 units SC QHS added - last hgb a1c 7.3 on 01/2018 - metformin 500 mg PO BID and insulin coverage scale - accucheck ACHS - hypoglycemic protocol in place Left inguinal hernia - Asymptomatic - Outpatient F/U with surgery. Psoriasis - Chronic - not on treatment - Apply lac-hydrin to legs and arms Prophylaxis - DVT: Lovenox 40 mg sc HS - AAD: Florastor
[2018-02-20] MEDS ORDERED: Sodium Chloride 3% for Inhalation 4 ML VIAL.NEB IH PRN (15:08)
[2018-02-20] MEDS: Enoxaparin 40 mg Syringe SC SCH (21:28)
[2018-02-20] MEDS: Insulin Detemir 100 Units/ml Inj SC SCH (23:25)
[2018-02-21] MEDS: Albuterol-Ipratrop 3 mg / 0.5 (3 ml) UD INH SCH ×3 (00:38→07:40)
[2018-02-21] MEDS: Budesonide 0.5 mg/2 ml Inhal Susp UD INH SCH (07:39)
[2018-02-21] MEDS: Acetylcysteine 20% Inhal Soln (4ml) INH SCH (07:40)
[2018-02-21] MEDS: guaiFENesin 600 mg ER Tab PO SCH (09:10)
[2018-02-21] MEDS: Insulin Lispro (humaLOG) 100 Units/ml Inj SC SCH ×3 (09:11→16:56)
--- NOTE | 2018-02-21 09:47 | CP.PCM.DIS ---
Provider - Provider Date of Admission: 02/13/18 08:48 Attending physician: Tennille Tavares MD Consults: Dr. Alexandra Time Spent in preparation of Discharge (in minutes): 30 Diagnosis - Discharge Diagnosis (1) COPD exacerbation Status: Resolved Priority: Medium (2) Chest pain Status: Resolved Priority: Low (3) Sputum culture positive for ESBL E. coli Status: Acute Priority: Low (4) UTI symptoms Status: Acute Priority: Low Hospital Course - Lab Results Lab Results: Micro Results 02/12/18 10:00 Sputum Gram Stain - Final 02/12/18 10:00 Sputum Sputum Culture - Final Escherichia Coli Most Recent Lab Values WBC 14.6 K/uL (4.8-10.8) H 02/20/18 05:30 RBC 4.88 Mil/uL (4.40-5.90) 02/20/18 05:30 Hgb 13.0 g/dL (12.0-18.0) 02/20/18 05:30 Hct 39.3 % (35.0-51.0) 02/20/18 05:30 MCV 80.5 fl (80.0-94.0) 02/20/18 05:30 MCH 26.6 pg (27.0-31.0) L 02/20/18 05:30 MCHC 33.0 g/dL (33.0-37.0) 02/20/18 05:30 RDW 16.7 % (11.5-14.5) H 02/20/18 05:30 Plt Count 194 K/uL (130-400) 02/20/18 05:30 MPV 8.4 fl (7.2-11.7) 02/20/18 05:30 Neut % (Auto) 84.6 % (50.0-75.0) H 02/20/18 05:30 Lymph % (Auto) 8.9 % (20.0-40.0) L 02/20/18 05:30 Hale % (Auto) 6.2 % (0.0-10.0) 02/20/18 05:30 Eos % (Auto) 0.0 % (0.0-4.0) 02/20/18 05:30 Baso % (Auto) 0.3 % (0.0-2.0) 02/20/18 05:30 Neut # (Auto) 12.4 K/uL (1.8-7.0) H 02/20/18 05:30 Lymph # (Auto) 1.3 K/uL (1.0-4.3) 02/20/18 05:30 Hale # (Auto) 0.9 K/uL (0.0-0.8) H 02/20/18 05:30 Eos # (Auto) 0.0 K/uL (0.0-0.7) 02/20/18 05:30 Baso # (Auto) 0.0 K/uL (0.0-0.2) 02/20/18 05:30 Neutrophils % (Manual) 85 % (42-75) H 02/18/18 05:40 Lymphocytes % (Manual) 8 % (20-50) L 02/18/18 05:40 Monocytes % (Manual) 7 % (0-10) 02/18/18 05:40 Platelet Estimate Normal (NORMAL) 02/18/18 05:40 Large Platelets Present 02/18/18 05:40 Anisocytosis (manual) Slight 02/18/18 05:40 Macrocytosis (manual) Slight 02/18/18 05:40 Ovalocytes Moderate 02/18/18 05:40 PT 11.1 Seconds (9.8-13.1) 02/11/18 18:06 INR 1.0 (0.9-1.2) 02/11/18 18:06 APTT 23.4 Seconds (25.6-37.1) L 02/11/18 18:06 pCO2 37 mm/Hg (35-45) 02/11/18 18:47 pO2 96 mm/Hg (80-100) 02/11/18 18:47 HCO3 28.0 mmol/L (21-28) 02/11/18 18:47 ABG pH 7.48 (7.35-7.45) H 02/11/18 18:47 ABG Total CO2 28.7 mmol/L (22-28) H 02/11/18 18:47 ABG O2 Saturation 100.5 % (95-98) H 02/11/18 18:47 ABG Base Excess 4.0 mmol/L (-2.0-3.0) H 02/11/18 18:47 Slim Test Yes 02/11/18 18:47 ABG Potassium 4.0 mmol/L (3.6-5.2) 02/11/18 18:47 A-a O2 Difference 7.0 mm/Hg 02/11/18 18:47 Sodium 133.0 mmol/L (132-148) 02/11/18 18:47 Chloride 101.0 mmol/L (98-107) 02/11/18 18:47 Glucose 141 mg/dL (75-110) H 02/11/18 18:47 Lactate 0.7 mmol/L (0.7-2.1) 02/11/18 18:47 FiO2 21.0 % 02/11/18 18:47 Sodium 134 mmol/l (132-148) 02/20/18 05:30 Potassium 4.7 MMOL/L (3.6-5.0) 02/20/18 05:30 Chloride 97 mmol/L (98-107) L 02/20/18 05:30 Carbon Dioxide 29 mmol/L (22-30) 02/20/18 05:30 Anion Gap 13 (10-20) 02/20/18 05:30 BUN 52 mg/dl (9-20) H 02/20/18 05:30 Creatinine 1.0 mg/dl (0.8-1.5) 02/20/18 05:30 Est GFR ( Amer) > 60 02/20/18 05:30 Est GFR (Non-Af Amer) > 60 02/20/18 05:30 POC Glucose (mg/dL) 305 mg/dL (65-110) H 02/19/18 16:26 Random Glucose 175 mg/dL (75-110) H 02/20/18 05:30 Calcium 9.3 mg/dL (8.4-10.2) 02/20/18 05:30 Magnesium 2.0 MG/DL (1.6-2.3) 02/11/18 18:50 Total Bilirubin 0.8 mg/dl (0.2-1.3) 02/18/18 05:40 AST 21 U/L (17-59) 02/18/18 05:40 ALT 29 U/L (21-72) 02/18/18 05:40 Alkaline Phosphatase 45 U/L (38-126) 02/18/18 05:40 Troponin I < 0.0120 ng/mL (0.00-0.120) 02/12/18 05:20 NT-Pro-B Natriuret Pep 341 pg/ml (0-900) 02/11/18 18:50 Total Protein 5.8 G/DL (6.3-8.2) L 02/18/18 05:40 Albumin 3.2 g/dL (3.5-5.0) L 02/18/18 05:40 Globulin 2.7 gm/dL (2.2-3.9) 02/18/18 05:40 Albumin/Globulin Ratio 1.2 (1.0-2.1) 02/18/18 05:40 Arterial Blood Potassium 4.0 mmol/L (3.6-5.2) 02/11/18 18:47 Urine Color Straw (YELLOW) 02/16/18 10:24 Urine Clarity Clear (Clear) 02/16/18 10:24 Urine pH 6.0 (5.0-8.0) 02/16/18 10:24 Ur Specific Martin 1.009 (1.003-1.030) 02/16/18 10:24 Urine Protein Negative mg/dL (NEGATIVE) 02/16/18 10:24 Urine Glucose (UA) >=500 mg/dL (Normal) 02/16/18 10:24 Urine Ketones Negative mg/dL (NEGATIVE) 02/16/18 10:24 Urine Blood Negative (NEGATIVE) 02/16/18 10:24 Urine Nitrate Negative (NEGATIVE) 02/16/18 10:24 Urine Bilirubin Negative (NEGATIVE) 02/16/18 10:24 Urine Urobilinogen 0.2-1.0 mg/dL (0.2-1.0) 02/16/18 10:24 Ur Leukocyte Esterase Neg Chad/uL (Negative) 02/16/18 10:24 Urine RBC (Auto) 3 /hpf (0-3) 02/16/18 10:24 Urine Microscopic WBC 1 /hpf (0-5) 02/16/18 10:24 Ur Squamous Epith Cells < 1 /hpf (0-5) 02/16/18 10:24 Urine Yeast (Budding) Many /hpf (NEGATIVE) H 02/16/18 10:24 C.trachomatis RNA (TMA) Not detected (Not Detected) 02/12/18 08:48 N.gonorrhoeae RNA (TMA) Not detected (Not Detected) 02/12/18 08:48 - Hospital Course Hospital Course: 67 yr old M who was admitted for acute COPD exacerbation with PMHx including COPD, NIDDM2, HTN, PE with IVC filter. During this admission patient had a positive sputum culture for ESBL E. Coli treated with 5 day course of IV Meropenem. Patient respiratory status improved with with nebulized albuterol treatments, mucomyst INH, IV steroids tapered to PO, supplemental O2 via nasal cannula. Patient also had yeast UTI and oral thrush, treated with antifungal agents. During admission patient had elevated BP and was started on Lisinorpil 5mg PO QD, this medication was not prescribed on discharge as patient had low BP values (103/60 mmHg on last day prior to discharge), will monitor BP as outpatient. Patient was discharged stable with instructions to follow up with PMD at [facility] within 1 week, take medications as prescribed. Medications: -Prednisone 20mg PO QD x 3 days -Fluconazole 200mg PO QD x 14 days -Metformin 500mg PO BID with meals x 30 days -Ventolin HFA inhaler 90 mcg/actuation 2 puff INH Q4 PRN shortness of breath -Advair Diskus 500/50 1 puff IH Q12 JEFFREY -Montelukast 10mg PO QHS - Date & Time of H&P Date of H&P: 02/11/18 Time of H&P: 21:33 Discharge Exam - Head Exam Head Exam: ATRAUMATIC, NORMOCEPHALIC - Eye Exam Eye Exam: EOMI - ENT Exam ENT Exam: Mucous Membranes Moist - Neck Exam Neck exam: Full Rom - Respiratory Exam Respiratory Exam: Wheezes (diffuse, expiratory), NORMAL BREATHING PATTERN. absent: Rales, Rhonchi - Cardiovascular Exam Cardiovascular Exam: REGULAR RHYTHM, +S1, +S2 - GI/Abdominal Exam GI & Abdominal Exam: Normal Bowel Sounds, Soft. absent: Tenderness - Extremities Exam Extremities exam: full ROM, pedal pulses present - Neurological Exam Neurological exam: Alert, CN II-XII Intact, Oriented x3 - Psychiatric Exam Psychiatric exam: Normal Affect, Normal Mood - Skin Skin Exam: Dry, Normal Color, Warm Discharge Plan - Discharge Medications Prescriptions: Albuterol HFA [Ventolin HFA 90 mcg/actuation (8 g)] 2 puff INH RQ4 PRN #1 inhaler PRN Reason: Shortness Of Breath Fluconazole [Diflucan] 200 mg PO DAILY #10 tab Fluticasone/Salmeterol 500/50 [Advair Diskus 500/50] 1 puff IH Q12 #1 dsk metFORMIN [glucOPHAGE] 500 mg PO BIDWM #60 tab predniSONE [Prednisone] 20 mg PO DAILY #6 tab - Follow Up Plan Condition: FAIR Disposition: HOME/ ROUTINE Patient education suggested?: Yes Instructions: Chest Pain (DC), Exacerbation of COPD (DC) Additional Instructions: -Follow up at [facility] : appointment Wednesday02/25/18 at 2:20pm -Take medications as prescribed -ER precautions reviewed including any concerns, worsening or persistent chest pain, SOB, fevers, chills, nausea, vomiting. Referrals: [facility] [place] [Outside]
[2018-02-21] MEDS ORDERED: Albuterol-Ipratrop 3 mg / 0.5 (3 ml) UD INH PRN ×2 (10:53→11:47)
[2018-02-21] MEDS ORDERED: Albuterol HFA 90 mcg/actuation (8 g) INH PRN (10:54)
[2018-02-21] MEDS ORDERED: Fluticasone-Salmeterol 500-50mcg Diskus IH SCH (11:00)
[2018-02-21] MEDS ORDERED: Albuterol-Ipratrop 3 mg / 0.5 (3 ml) UD ONE (11:50)
[2018-02-21 16:11] VITALS: BP 121/66; PULSE 78; RESP 18; TEMP 97.8; O2SAT 96
--- NOTE | 2018-02-21 17:16 | CP.PCM.PN ---
Subjective - Date & Time of Evaluation Date of Evaluation: 02/21/18 Time of Evaluation: 13:00 - Subjective Subjective: ID note- pt. seen and examined today. He states he feels better. still has some cough but no phlegm, denies any fever. breathing better. Objective - Vital Signs/Intake and Output Vital Signs (last 24 hours): Temp Pulse Resp BP Pulse Ox 97.8 F 78 18 121/66 96 02/21/18 16:08 02/21/18 16:08 02/21/18 16:08 02/21/18 16:08 02/21/18 16:08 - Medications Medications: Current Medications Acetaminophen (Tylenol 325mg Tab) 650 mg PO Q6 PRN PRN Reason: Pain, Mild (1-3) Albuterol (Ventolin Hfa 90 Mcg/Actuation (8 G)) 2 puff INH RQ4 PRN PRN Reason: Shortness of Breath Albuterol/Ipratropium (Duoneb 3 Mg/0.5 Mg (3 Ml) Ud) 3 ml INH RQ4 PRN PRN Reason: Shortness of Breath Last Admin: 02/21/18 12:00 Dose: 3 ml Dextrose (Dextrose 50% Inj) 0 ml IV STAT PRN; Protocol PRN Reason: Hypoglycemia Protocol Dextrose (Glutose 15) 0 gm PO ONCE PRN; Protocol PRN Reason: Hypoglycemia Protocol Enoxaparin Sodium (Lovenox) 40 mg SC HS JEFFREY PRN Reason: Protocol Last Admin: 02/20/18 21:28 Dose: 40 mg Famotidine (Pepcid) 20 mg PO BID [facility] Last Admin: 02/21/18 16:56 Dose: 20 mg Fluconazole (Diflucan) 200 mg PO DAILY JEFFREY PRN Reason: Protocol Last Admin: 02/21/18 09:09 Dose: 200 mg Glucagon (Glucagen Diagnostic Kit) 0 mg IM STAT PRN; Protocol PRN Reason: Hypoglycemia Protocol Guaifenesin (Mucinex La) 600 mg PO Q12 [facility] Last Admin: 02/21/18 09:10 Dose: 600 mg Insulin Detemir (Levemir) 5 units SC HS [facility] Last Admin: 02/20/18 23:25 Dose: 5 u Insulin Human Lispro (Humalog) 0 units SC [facility] PRN Reason: Protocol Last Admin: 02/21/18 16:56 Dose: Not Given Lactic Acid (Lac-Hydrin 12% Lotion (225 G)) 1 applic TOP BID [facility] Last Admin: 02/21/18 16:56 Dose: 1 applic Lisinopril (Zestril) 5 mg PO DAILY [facility] Last Admin: 02/21/18 09:09 Dose: 5 mg Metformin HCl (Glucophage) 500 mg PO BIDWM [facility] Last Admin: 02/21/18 16:57 Dose: 500 mg Montelukast Sodium (Singulair) 10 mg PO HS [facility] Last Admin: 02/20/18 21:29 Dose: 10 mg Prednisone (Prednisone Tab) 40 mg PO DAILY [facility] Last Admin: 02/21/18 09:09 Dose: 40 mg Fluticasone/Salmeterol (Advair Diskus 500/50) 1 puff IH Q12 [facility] Last Admin: 02/21/18 11:43 Dose: 1 puff - Labs Labs: - Additional Findings Additional findings: - Constitutional Appears: No Acute Distress - Head Exam Head Exam: ATRAUMATIC - Eye Exam Eye Exam: EOMI - ENT Exam ENT Exam: Normal Oropharynx - Neck Exam Neck exam: Positive for: Full Rom - Respiratory Exam Respiratory Exam: NORMAL BREATHING PATTERN Additional comments: no wheezing better aeration B/l - Cardiovascular Exam Cardiovascular Exam: RRR, +S1, +S2 - GI/Abdominal Exam GI & Abdominal Exam: Normal Bowel Sounds, Soft Additional comments: NT, ND - Extremities Exam Additional comments: No edema B/L LE - Neurological Exam Neurological exam: Alert, Oriented x 3 Laboratory Results - last 72 hr 02/18/18 02/19/18 02/19/18 22:33 05:33 11:43 WBC RBC Hgb Hct MCV MCH MCHC RDW Plt Count MPV Neut % (Auto) Lymph % (Auto) [place] % (Auto) Eos % (Auto) Baso % (Auto) Neut # (Auto) Lymph # (Auto) [place] # (Auto) Eos # (Auto) Baso # (Auto) Sodium Potassium Chloride Carbon Dioxide Anion Gap BUN Creatinine Est GFR ( Amer) Est GFR (Non-Af Amer) POC Glucose (mg/dL) 189 H 204 H 164 H Random Glucose Calcium 02/19/18 02/19/18 02/20/18 16:26 21:23 05:30 WBC 14.6 H RBC 4.88 Hgb 13.0 Hct 39.3 MCV 80.5 MCH 26.6 L MCHC 33.0 RDW 16.7 H Plt Count 194 MPV 8.4 Neut % (Auto) 84.6 H Lymph % (Auto) 8.9 L [place] % (Auto) 6.2 Eos % (Auto) 0.0 Baso % (Auto) 0.3 Neut # (Auto) 12.4 H Lymph # (Auto) 1.3 [place] # (Auto) 0.9 H Eos # (Auto) 0.0 Baso # (Auto) 0.0 Sodium Potassium Chloride Carbon Dioxide Anion Gap BUN Creatinine Est GFR ( Amer) Est GFR (Non-Af Amer) POC Glucose (mg/dL) 305 H 162 H Random Glucose Calcium 02/20/18 02/20/18 02/20/18 05:30 05:42 10:32 WBC RBC Hgb Hct MCV MCH MCHC RDW Plt Count MPV Neut % (Auto) Lymph % (Auto) [place] % (Auto) Eos % (Auto) Baso % (Auto) Neut # (Auto) Lymph # (Auto) [place] # (Auto) Eos # (Auto) Baso # (Auto) Sodium 134 Potassium 4.7 Chloride 97 L Carbon Dioxide 29 Anion Gap 13 BUN 52 H Creatinine 1.0 Est GFR ( Amer) > 60 Est GFR (Non-Af Amer) > 60 POC Glucose (mg/dL) 236 H 177 H Random Glucose 175 H Calcium 9.3 02/20/18 02/20/18 02/21/18 15:49 22:29 10:48 WBC RBC Hgb Hct MCV MCH MCHC RDW Plt Count MPV Neut % (Auto) Lymph % (Auto) [place] % (Auto) Eos % (Auto) Baso % (Auto) Neut # (Auto) Lymph # (Auto) [place] # (Auto) Eos # (Auto) Baso # (Auto) Sodium Potassium Chloride Carbon Dioxide Anion Gap BUN Creatinine Est GFR ( Amer) Est GFR (Non-Af Amer) POC Glucose (mg/dL) 347 H 240 H 118 H Random Glucose Calcium Microbiology 02/12/18 10:00 Sputum Gram Stain - Final 02/12/18 10:00 Sputum Sputum Culture - Final Escherichia Coli Assessment and Plan (1) COPD exacerbation Status: Resolved (2) Dyspnea Status: Acute (3) Sputum culture positive for ESBL E. coli Status: Acute - Assessment and Plan (Free Text) Assessment: A/P- 67 year old male with multiple medical conditions including COPD, DM II admitted with copd exacerbation after recent d/c from hospital. pt. is afebrile minimal leukocytosis could be from prednisone as well sputum cx- light growth ESBL e.coli Plan- completed 5 days of IV meropnem for e.coli ESBl sputumcx. nebs and COPD treatment as per primary team. can be d/c on oral augmentin for 7 days. f/u with [facility] in [place] and have repeat WBC done in few days. All above d/w DR.Pierre Guzman .
== END 2018-02-21 18:15 | disposition home or self-care (01) | DRG 88 ==
LOC: H.ER 16:34 → H.ERHOLD 21:00 → H.MEDSURG1 02-12 10:48 → OBSVTOIN 02-13 08:48 → H.MEDSURG1 02-17 14:10
PROVIDERS: ADMIT Family Medicine Geriatric Medicine; ATTEND Family Medicine Geriatric Medicine
DX: J44.1 Chronic obstructive pulmonary disease with (acute) exacerbation (principal); B37.0 Candidal stomatitis; B37.49 Other urogenital candidiasis; I10 Essential (primary) hypertension; E11.9 Type 2 diabetes mellitus without complications; B96.20 Unspecified Escherichia coli [E. coli] as the cause of diseases classified elsewhere; E78.00 Pure hypercholesterolemia, unspecified; L40.9 Psoriasis, unspecified; D72.828 Other elevated white blood cell count; Z16.12 Extended spectrum beta lactamase (ESBL) resistance; Z91.14 Patient's other noncompliance with medication regimen; K40.90 Unilateral inguinal hernia, without obstruction or gangrene, not specified as recurrent; Z87.891 Personal history of nicotine dependence; Z87.01 Personal history of pneumonia (recurrent); Z79.84 Long term (current) use of oral hypoglycemic drugs; Z59.0 Homelessness

== ENCOUNTER 2018-03-04 16:15 | Inpatient (IN) | payer SELFPAY ==
[2018-03-04 16:27] VITALS: BMI 27.5
[2018-03-04] MEDS ORDERED: Albuterol-Ipratrop 3 mg / 0.5 (3 ml) UD IH STA ×2 (16:27→16:28)
[2018-03-04] MEDS ORDERED: Albuterol-Ipratrop 3 mg / 0.5 (3 ml) UD INH STA (16:27)
[2018-03-04] MEDS ORDERED: Albuterol-Ipratrop 3 mg / 0.5 (3 ml) UD ONE ×2 (16:28)
[2018-03-04] MEDS ORDERED: Sodium Chloride 0.9% 500 ML IV SCH (16:30)
--- NOTE | 2018-03-04 16:31 | ED PDOC ---
HPI: Chest Pain Time Seen by Provider: 03/04/18 16:26 Chief Complaint (Nursing): Chest Pain Chief Complaint (Provider): SOB and chest pain History Per: Patient History/Exam Limitations: no limitations Onset/Duration Of Symptoms: Mins (x20 [employer]) Current Symptoms Are (Timing): Still Present Additional Complaint(s): Preet Brown is a 67 year old male, with a past medical history of CHF and COPD, who presents to the emergency department complaining of chest pain and shortness of breath onset x20 min prior to arrival. Patient also reports cough, congestion and runny nose. Patient states he was walking, coming out of the [facility] at onset of symptoms. He reports not taking his medications. He denies any leg swelling, fever, chills, nausea, vomit, diarrhea, headache, dizziness, numbness, weakness or other medical complaints. PMD: None provided. Past Medical History Reviewed: Historical Data, Nursing Documentation, Vital Signs Vital Signs: Last Vital Signs Temp 97.9 F 03/04/18 17:44 Pulse 98 H 03/04/18 17:44 Resp 22 03/04/18 17:44 BP 146/80 03/04/18 17:44 Pulse Ox 97 03/04/18 17:44 - Medical History PMH: Asthma, CHF, COPD, Diabetes, HTN, Hypercholesterolemia, Pneumonia Denies: HIV, Chronic Kidney Disease - Surgical History Surgical History: No Surg Hx - Family History Family History: States: [place], Diabetes - Immunization History Hx Tetanus Toxoid Vaccination: No Hx Influenza Vaccination: No Hx Pneumococcal Vaccination: No - Home Medications Home Medications: Ambulatory Orders Medication Instructions Recorded Albuterol HFA [Ventolin HFA 90 2 puff INH RQ4 PRN #1 inhaler 02/21/18 mcg/actuation (8 g)] Amoxicillin/Clavulanate [Augmentin 1 tab PO Q12 #10 tab 02/21/18 875 MG-125 MG] Fluconazole [Diflucan] 200 mg PO DAILY #10 tab 02/21/18 Fluticasone/Salmeterol 500/50 1 puff IH Q12 #1 dsk 02/21/18 [Advair Diskus 500/50] metFORMIN [glucOPHAGE] 500 mg PO BIDWM #60 tab 02/21/18 predniSONE [Prednisone] 20 mg PO DAILY #6 tab 08/06/18 - Allergies Allergies/Adverse Reactions: Allergies Allergy/AdvReac Type Severity Reaction Status Date / Time No Known Allergies Allergy Verified 02/04/18 19:29 Review of Systems ROS Statement: Except As Marked, All Systems Reviewed And Found Negative Constitutional: Negative for: Fever, Chills ENT: Positive for: Nose Discharge (runny nose), Nose Congestion Cardiovascular: Positive for: Chest Pain Respiratory: Positive for: Cough, Shortness of Breath Gastrointestinal: Negative for: Nausea, Vomiting, Diarrhea Neurological: Negative for: Weakness, Numbness, Headache, Dizziness Physical Exam - Reviewed Nursing Documentation Reviewed: Yes Vital Signs Reviewed: Yes - Physical Exam Appears: Positive for: Uncomfortable Head Exam: Positive for: ATRAUMATIC, NORMAL INSPECTION, NORMOCEPHALIC Skin: Positive for: Normal Color, Warm, Dry Eye Exam: Positive for: Normal appearance, EOMI, PERRL Neck: Positive for: Painless ROM Cardiovascular/Chest: Positive for: Tachycardia. Negative for: Edema, Murmur Respiratory: Positive for: Wheezing (bilaterally). Negative for: Respiratory Distress Gastrointestinal/Abdominal: Positive for: Normal Exam, Soft. Negative for: Tenderness Back: Positive for: Normal Inspection. Negative for: L CVA Tenderness, R CVA Tenderness Extremity: Positive for: Normal ROM (upper and lower extremities), Other ( Chronic venous stasis). Negative for: Tenderness, Calf Tenderness, Deformity, Swelling Neurologic/Psych: Positive for: Alert, Oriented. Negative for: Motor/Sensory Deficits - Laboratory Results Result Diagrams: 03/04/18 16:47 03/04/18 16:47 Interpretation Of Abn Labs: 40 bun. 2.4 lactate - ECG ECG: Positive for: Interpreted By Me, Viewed By Me ECG Rhythm: Positive for: Normal QRS, Sinus Tachycardia - Radiology X-Ray: Interpreted by Me, Viewed By Me - Progress ED Course And Treament: 1758: Spoke with [facility] resident. Will admit tele obs. COPD exacerbation. Pt. improving but still with wheezes. - Critical Care Total Time (In Min): 30 Documented Critical Care: Time excludes all time spent performint seperately billable procedures Medical Decision Making Medical Decision Making: Time: 16:26 Initial Impression: COPD exacerbation Initial Plan: --ABG --EKG --B-Type Natriuretic Peptide --CMP --Magnesium --Phosphorus --Troponin I --Urine dip --CBC w/ differential --PTT --PT --Chest portable [RAD] --Duoneb 3ml IH --Duoneb 3 ml IH --Duoneb 3 ml IH --SOLU-medrol 125 mg IVP --Sodium Chloride 500 ml IV 125 mls/hr --Blood culture --Peak flow pre/post Tx --Reevaluation EKG: Sinus tachycardia ----- Scribe Attestation: Documented by Fazal Mccray, acting as a scribe for Ras Conti MD. Provider Scribe Attestation: All medical record entries made by the Scribe were at my direction and personally dictated by me. I have reviewed the chart and agree that the record accurately reflects my personal performance of the history, physical exam, medical decision making, and the department course for this patient. I have also personally directed, reviewed, and agree with the discharge instructions and disposition. Disposition - Clinical Impression Clinical Impression: COPD exacerbation - Patient ED Disposition Is Patient to be Admitted: Yes - Disposition Disposition Time: 18:14 Condition: STABLE - POA Present On Arrival: None
[2018-03-04 16:50] LABS: BASO # 0.1 K/uL (0.0-0.2); BASO % 1.2 % (0.0-2.0); EOS % 0.1 % (0.0-4.0); HEMOGLOBIN 12.6 g/dL (12.0-18.0); LYMPH # 2.2 K/uL (1.0-4.3); LYMPH % 21.5 % (20.0-40.0); MEAN CELL VOLUME 81.2 fl (80.0-94.0); MEAN CORPUSCULAR HEMOGLOBIN 26.8 pg (27.0-31.0); MEAN CORPUSCULAR HGB CONC 33.1 g/dL (33.0-37.0); MEAN PLATELET VOLUME 8.2 fl (7.2-11.7); MONO # 0.6 K/uL (0.0-0.8); MONO % 5.5 % (0.0-10.0); NEUT # 7.2 K/uL (1.8-7.0); NEUT % 71.7 % (50.0-75.0); NRBC % 0.2 % (0.0-0.0); RBC 4.68 Mil/uL (4.40-5.90); RED CELL DISTRIBUTION WIDTH 17.8 % (11.5-14.5); WHITE BLOOD COUNT 10.1 K/uL (4.8-10.8)
[2018-03-04 16:58] LABS: ABG ALLEN TEST YES; ARTERIAL BLOOD GAS HCO3 27.2 mmol/L (21-28); ARTERIAL BLOOD GAS O2 SAT 99.8 % (95-98); ARTERIAL BLOOD GAS PCO2 35 mm/Hg (35-45); ARTERIAL BLOOD GAS PH 7.48 (7.35-7.45); ARTERIAL BLOOD GAS PO2 181 mm/Hg (80-100); ARTERIAL BLOOD GAS TCO2 27.2 mmol/L (22-28)
[2018-03-04 17:07] LABS: PROTHROMBIN TIME 11.1 Seconds (9.8-13.1)
[2018-03-04 17:08] LABS: ALB/GLOB RATIO 1.3 (1.0-2.1); ALBUMIN 3.7 g/dL (3.5-5.0); ALT/SGPT 36 U/L (21-72); AST/SGOT 23 U/L (17-59); BLOOD UREA NITROGEN 40 mg/dl (9-20); CALCIUM 8.8 mg/dL (8.4-10.2); GFR NON-AFRICAN AMERICAN > 60
[2018-03-04 17:10] LABS: PARTIAL THROMBOPLASTIN TIME 20.2 Seconds (25.6-37.1)
[2018-03-04 17:11] LABS: B-TYPE NATRIURETIC PEPTIDE 427 pg/ml (0-900)
[2018-03-04] MEDS ORDERED: Sodium Chloride 0.9% 500 ML IV STA (17:22)
[2018-03-04] MEDS ORDERED: Aspirin 325 mg EC Tablets PO ONE (18:44)
--- NOTE | 2018-03-04 18:46 | CP.PCM.HP ---
History of Present Illness - History of Present Illness History of Present Illness: 67 y/o homeless male with a PMHx/o COPD, NIDDM2, HTN, PE with IVC filter (not on longterm anticoagulation due to history of retroperitoneal hematoma 2years ago), psoriasis, presents to ED c/o SBO started today while patient was [place] the park, associated with productive cough with brown color expectoration, left side precordial chest pain reproducible radiated to left arm , no pleuritic 9/10 intensity. He also reports runny nose, subjective fever for the last 2 days associated with sweating, dysuria, bad smell urine x 2 days. Patient lives in a snf, had recent hospitalization 02/11/18 for COPD exacerbation, reports not to be taking any medications or rescue inhalers. On my evaluation in ED patient AAOx3 in mild respiratory distress, able to speak in full sentences, retracting, audible wheezing, reports feeling better after duoneb treatment, O2 sat 96 on NC 3 L, and on room air during 40 sec 95%. PMD: NO PMD. No notes from clinic found in [facility]. Only telephone encounters trying to contact patient Allergies: NKDA Meds: No taking any medications PSHx: IVC filter placement SocialHx: former smoker, quit 1 yr ago. Formerly smoked 3-4 packs/day. Former alcohol abuser. Denies illicit drug use FamilyHx: sister with diabetes. no hx of heart dz or cancer Next of kin: son, lives in [place] Patient status: full code Ed course: VS: RR: 22. BP: 146/80 HR: 98 O2 sat 97 PE: diminished breath sound bilateral, bibasal rales, wheezing on all expiration Labs: CBC normal. CMP BUN 40/0.9 glucose 298 Mg 1.5 .Trop NL, Probmp NL. ABG PH : 7.48 lactate 2.4 Imaging: EKG sinus tachy. -CXR: new infiltrates RLL as compared with last CXR interpretated by ia Meds: Duoneb x 3, Aspirin 325 mg, Solu-medrol 125 mg IV, NS 500ml IV 125 ml/h Present on Admission - Present on Admission Any Indicators Present on Admission: No History of DVT/PE: Yes History of Uncontrolled Diabetes: No Urinary Catheter: No Decubitus Ulcer Present: No Review of Systems - Review of Systems All systems: reviewed and no additional remarkable complaints except - Cardiovascular Cardiovascular: Chest Pain - Respiratory Respiratory: Cough, Dyspnea - Genitourinary Genitourinary: Dysuria Past Patient History - Infectious Disease Hx of Infectious Diseases: None - Tetanus Immunizations Tetanus Immunization: Unknown - Past Medical History & Family History Past Medical History?: Yes - Past Social History Smoking Status: Former Smoker - CARDIAC Hx Congestive Heart Failure: Yes Hx Hypercholesterolemia: Yes Hx Hypertension: Yes - PULMONARY Hx Asthma: Yes Hx Chronic Obstructive Pulmonary Disease (COPD): Yes Hx Pneumonia: Yes - NEUROLOGICAL Hx Neurological Disorder: No - HEENT Hx HEENT Problems: No - RENAL Hx Chronic Kidney Disease: No - ENDOCRINE/METABOLIC Hx Endocrine Disorders: Yes Hx Diabetes Mellitus Type 2: Yes - HEMATOLOGICAL/ONCOLOGICAL Hx Human Immunodeficiency Virus (HIV): No - INTEGUMENTARY Hx Dermatological Problems: Yes (GENERALIZED SKIN PSORIASIS) - MUSCULOSKELETAL/RHEUMATOLOGICAL Hx Musculoskeletal Disorders: No Hx Falls: No - GASTROINTESTINAL Hx Gastrointestinal Disorders: Yes Other/Comment: GI bleeding - GENITOURINARY/GYNECOLOGICAL Hx Genitourinary Disorders: No - PSYCHIATRIC Hx Psychophysiologic Disorder: No Hx Substance Use: No - SURGICAL HISTORY Hx Surgeries: Yes Other/Comment: IVC Filter - ANESTHESIA Hx Anesthesia: Yes Hx Anesthesia Reactions: No Hx Malignant Hyperthermia: No Meds Allergies/Adverse Reactions: Allergies Allergy/AdvReac Type Severity Reaction Status Date / Time No Known Allergies Allergy Verified 02/04/18 19:29 Physical Exam - Constitutional Appears: Non-toxic, In Acute Distress (mild respiratory distress) - Head Exam Head Exam: ATRAUMATIC, NORMOCEPHALIC - Eye Exam Eye Exam: Normal appearance - ENT Exam ENT Exam: Mucous Membranes Moist - Neck Exam Neck exam: Positive for: Normal Inspection - Respiratory Exam Respiratory Exam: Decreased Breath Sounds, Prolonged Expiratory Phase, Rales, Wheezes - Cardiovascular Exam Cardiovascular Exam: REGULAR RHYTHM, +S1, +S2 - GI/Abdominal Exam GI & Abdominal Exam: Normal Bowel Sounds, Soft. absent: Guarding, Rebound - Extremities Exam Extremities exam: Negative for: pedal edema - Back Exam Back exam: NORMAL INSPECTION - Neurological Exam Neurological exam: Alert, Oriented x3 - Psychiatric Exam Psychiatric exam: Normal Affect, Normal Mood - Skin Skin Exam: Normal Color Results - Vital Signs Recent Vital Signs: Last Vital Signs Temp 97.9 F 03/04/18 17:44 Pulse 106 H 03/04/18 17:59 Resp 22 03/04/18 17:59 BP 145/80 03/04/18 17:59 Pulse Ox 96 03/04/18 17:59 - Labs Result Diagrams: 03/04/18 16:47 03/04/18 16:47 Labs: Laboratory Results - last 24 hr 03/04/18 03/04/18 03/04/18 16:47 16:47 16:47 WBC 10.1 RBC 4.68 Hgb 12.6 Hct 38.0 MCV 81.2 MCH 26.8 L MCHC 33.1 RDW 17.8 H Plt Count 241 MPV 8.2 Neut % (Auto) 71.7 Lymph % (Auto) 21.5 [place] % (Auto) 5.5 Eos % (Auto) 0.1 Baso % (Auto) 1.2 Neut # (Auto) 7.2 H Lymph # (Auto) 2.2 [place] # (Auto) 0.6 Eos # (Auto) 0.0 Baso # (Auto) 0.1 PT 11.1 INR 1.0 APTT 20.2 L pCO2 pO2 HCO3 ABG pH ABG Total CO2 ABG O2 Saturation ABG Base Excess Slim Test ABG Potassium A-a O2 Difference Glucose Lactate FiO2 Blood Gas Comments Crit Value Called To Crit Value Called By Crit Value Read Back Blood Gas Notified Time Sodium 137 Potassium 4.6 Chloride 105 Carbon Dioxide 25 Anion Gap 12 BUN 40 H Creatinine 0.9 Est GFR ( Amer) > 60 Est GFR (Non-Af Amer) > 60 Random Glucose 298 H Calcium 8.8 Phosphorus 3.1 Magnesium 1.5 L Total Bilirubin 0.5 AST 23 ALT 36 Alkaline Phosphatase 57 Troponin I 0.0180 NT-Pro-B Natriuret Pep 427 Total Protein 6.5 Albumin 3.7 Globulin 2.8 Albumin/Globulin Ratio 1.3 Arterial Blood Potassium 03/04/18 16:48 WBC RBC Hgb Hct MCV MCH MCHC RDW Plt Count MPV Neut % (Auto) Lymph % (Auto) [place] % (Auto) Eos % (Auto) Baso % (Auto) Neut # (Auto) Lymph # (Auto) [place] # (Auto) Eos # (Auto) Baso # (Auto) PT INR APTT pCO2 35 pO2 181 H HCO3 27.2 ABG pH 7.48 H ABG Total CO2 27.2 ABG O2 Saturation 99.8 H ABG Base Excess 2.8 Slim Test Yes ABG Potassium 3.9 A-a O2 Difference 60.0 Glucose 307 H Lactate 2.4 H FiO2 40.0 Blood Gas Comments Lac=2.4 Crit Value Called To micha Gomez Crit Value Called By 22 Crit Value Read Back Y Blood Gas Notified Time 1658 Sodium 137.0 Potassium Chloride 105.0 Carbon Dioxide Anion Gap BUN Creatinine Est GFR ( Amer) Est GFR (Non-Af Amer) Random Glucose Calcium Phosphorus Magnesium Total Bilirubin AST ALT Alkaline Phosphatase Troponin I NT-Pro-B Natriuret Pep Total Protein Albumin Globulin Albumin/Globulin Ratio Arterial Blood Potassium 3.9 Assessment & Plan - Assessment and Plan (Free Text) Plan: 67 y/o homeless male with a PMHx/o COPD, NIDDM2, HTN, PE with IVC filter (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 2) HAP -recent hospitalization 02/11/18 -purulent sputum, fever, rales -CXR: new infiltrates RLL as compared with last CXR -will cover with Vanco /Zosyn empiric -f/u sputum cx, blood cx 3)Dysuria -pending UA on my evaluation -Urine cx -f/u ua, urine cx 4) Dehydration -BUN/cr 40/0.9 -NS 500ml given ED -Maintenance NS 110 ml/h -f/u CMP 5) chest pain -reproducible EKG sinus tachycardia -troponin x 1 normal, will f/u 1 trop more. 6) HTN -no on hypertensive medications 7) DM Hgba1c 7.3 on 02/07/18 -c/w metformin -Accucheck ACHS 8) Psoriasis -controlled 9) DVT Prophylaxis -Lovenox 40 mg sc daily
[2018-03-04] MEDS ORDERED: Sodium Chloride 3% for Inhalation 4 ML VIAL.NEB IH PRN (18:52)
[2018-03-04] MEDS ORDERED: Sodium Chloride 0.9% 1,000 ML IV SCH (21:30)
[2018-03-04] MEDS ORDERED: methylPREDNISolone 60 MG in Sodium Chloride 0.9% 50 ML IV SCH (23:00)
[2018-03-04] MEDS: Piperacillin/Tazobact 3.375 GM in Sodium Chloride 0.9% 100 ML IVPB SCH (23:29)
[2018-03-05] MEDS: Piperacillin/Tazobact 3.375 GM in Sodium Chloride 0.9% 100 ML IVPB SCH ×4 (04:30→21:05)
[2018-03-05] MEDS ORDERED: Dextrose 50% SYRINGE Inj (50 ml) IV PRN (05:15)
[2018-03-05] MEDS ORDERED: Glucagon Recombinant 1 mg Inj IM PRN (05:15)
[2018-03-05] MEDS: Albuterol-Ipratrop 3 mg / 0.5 (3 ml) UD INH SCH ×6 (05:21→19:07)
[2018-03-05] MEDS: Insulin Lispro (humaLOG) 100 Units/ml Inj SC SCH ×5 (05:46→22:42)
[2018-03-05 07:02] LABS: BASO % 0.2 % (0.0-2.0); HEMOGLOBIN 11.4 g/dL (12.0-18.0); LYMPH # 1.1 K/uL (1.0-4.3); LYMPH % 11.2 % (20.0-40.0); MEAN CELL VOLUME 81.5 fl (80.0-94.0); MEAN CORPUSCULAR HEMOGLOBIN 26.7 pg (27.0-31.0); MEAN CORPUSCULAR HGB CONC 32.7 g/dL (33.0-37.0); MEAN PLATELET VOLUME 7.9 fl (7.2-11.7); MONO # 0.5 K/uL (0.0-0.8); MONO % 5.2 % (0.0-10.0); NEUT # 8.2 K/uL (1.8-7.0); NEUT % 83.4 % (50.0-75.0); NRBC % 0.1 % (0.0-0.0); RBC 4.27 Mil/uL (4.40-5.90); RED CELL DISTRIBUTION WIDTH 17.8 % (11.5-14.5); WHITE BLOOD COUNT 9.8 K/uL (4.8-10.8)
[2018-03-05 07:17] LABS: ALB/GLOB RATIO 1.3 (1.0-2.1); ALBUMIN 3.3 g/dL (3.5-5.0); ALT/SGPT 25 U/L (21-72); AST/SGOT 22 U/L (17-59); BLOOD UREA NITROGEN 29 mg/dl (9-20); CALCIUM 8.8 mg/dL (8.4-10.2); GFR NON-AFRICAN AMERICAN > 60
--- NOTE | 2018-03-05 07:41 | CARD ---
APPROVED REPORT Date of service: 03/04/2018 <Conclusion> Sinus tachycardia Possible Lateral infarct, age undetermined Cannot rule out Inferior infarct, age undetermined Abnormal ECG
[2018-03-05] MEDS ORDERED: Sodium Chloride 0.9% 1,000 ML IV SCH ×2 (08:15)
[2018-03-05] MEDS: Enoxaparin 40 mg Syringe SC SCH (09:00)
--- NOTE | 2018-03-05 09:59 | CP.PCM.PN ---
Subjective - Date & Time of Evaluation Date of Evaluation: 03/05/18 Time of Evaluation: 09:56 - Subjective Subjective: Patient sitting upright in chair. Breathing is still a little labored but improved from yesterday. Still having audible expiratory wheezing, +wet cough. Duoneb treatments are helping, feels breathing is more comfortable with O2 via NC on. He is ambulating to bathroom. Denies any headache, dizziness, chest pain , nausea, vomiting, diarrhea. Objective - Vital Signs/Intake and Output Vital Signs (last 24 hours): Temp Pulse Resp BP Pulse Ox 97.5 F L 70 18 164/84 H 99 03/05/18 05:00 03/05/18 05:23 03/05/18 05:00 03/05/18 05:00 03/05/18 05:00 - Medications Medications: Current Medications Acetaminophen (Tylenol 325mg Tab) 650 mg PO Q6 PRN PRN Reason: Pain, Mild (1-3) Acetaminophen (Tylenol 325mg Tab) 650 mg PO Q6 PRN PRN Reason: Fever >100.4 F Albuterol/Ipratropium (Duoneb 3 Mg/0.5 Mg (3 Ml) Ud) 3 ml INH RQ4 [facility] Last Admin: 03/05/18 08:01 Dose: 3 ml Amlodipine Besylate (Norvasc) 5 mg PO DAILY [facility] Dextrose (Dextrose 50% Inj) 0 ml IV STAT PRN; Protocol PRN Reason: Hypoglycemia Protocol Dextrose (Glutose 15) 0 gm PO ONCE PRN; Protocol PRN Reason: Hypoglycemia Protocol Enoxaparin Sodium (Lovenox) 40 mg SC DAILY [facility] PRN Reason: Protocol Last Admin: 03/05/18 09:00 Dose: 40 mg Glucagon (Glucagen Diagnostic Kit) 0 mg IM STAT PRN; Protocol PRN Reason: Hypoglycemia Protocol Sodium Chloride (Sodium Chloride 0.9%) 500 mls @ 125 mls/hr IV .Q4H [facility] Last Admin: 03/04/18 16:34 Dose: 125 mls/hr Vancomycin HCl 1,250 mg/ (Sodium Chloride) 250 mls @ 125 mls/hr IVPB Q12 [facility] PRN Reason: Protocol Last Admin: 03/05/18 09:02 Dose: 125 mls/hr Piperacillin Sod/Tazobactam (Sod 3.375 gm/ Sodium Chloride) 100 mls @ 100 mls/ hr IVPB Q6 [facility] PRN Reason: Protocol Last Admin: 03/05/18 09:02 Dose: 100 mls/hr Sodium Chloride (Sodium Chloride 0.9%) 1,000 mls @ 200 mls/hr IV .Q5H [facility] Stop: 03/06/18 08:13 Last Admin: 03/05/18 09:00 Dose: 200 mls/hr Insulin Human Lispro (Humalog) 0 units SC ACHS [facility] PRN Reason: Protocol Last Admin: 03/05/18 06:49 Dose: Not Given Ketorolac Tromethamine (Toradol) 15 mg IVP Q6 PRN PRN Reason: Pain, moderate (4-7) Methylprednisolone (Solu-Medrol) 60 mg IV Q8H [facility] Last Admin: 03/05/18 09:01 Dose: 60 mg Ondansetron HCl (Zofran Inj) 4 mg IVP Q6 PRN PRN Reason: Nausea/Vomiting - Labs Labs: 03/05/18 06:17 03/05/18 06:17 PT 11.1 Seconds (9.8-13.1) 03/04/18 16:47 INR 1.0 03/04/18 16:47 APTT 20.2 Seconds (25.6-37.1) L 03/04/18 16:47 - Constitutional Appears: Non-toxic (calm, cooperative with exam) - Head Exam Head Exam: ATRAUMATIC, NORMAL INSPECTION, NORMOCEPHALIC - Eye Exam Eye Exam: Normal appearance - Neck Exam Neck Exam: Full ROM - Respiratory Exam Respiratory Exam: Prolonged Expiratory Phase, Wheezes (diffusely), Respiratory Distress (mild). absent: Accessory Muscle Use, Decreased Breath Sounds - Cardiovascular Exam Cardiovascular Exam: REGULAR RHYTHM, +S1, +S2. 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 Patient clinically appears to be improving however he now has worsening lactate. Sepsis Criteria : on admission - RR >20, Lactate 2.4, tachycardia, Hospital Acquired PNA #Sepsis 2/2 to to Hospital Acquired Pneumonia -Worsening Lactate - Now 4.0 up from 2.4 -1L NS bolus this AM, NS at 200 cc/hr after, will recheck lactate. -On zosyn/vanco due to recent hospitalization 02/11/18, w/ sputum culture + ESBL -f/u sputum cx, blood cx, urine cx -repeat lactate this afternoon #) COPD exacerbation -c/w duoneb inh q4h lovely -decrease solumedrol 60 mg TID to BID -O2 NL 4L #) HAP -recent hospitalization 02/11/18, w/ purulent sputum -CXR: new infiltrates RLL as compared with last CXR -will cover with Vanco /Zosyn empiric -f/u sputum cx, blood cx #)Dysuria -pending UA and Urine cx collection this AM. -f/u ua, urine cx #) Dehydration -BUN/cr 40/0.9 -1L bolus of NS, 200cc maintenance -f/u CMP #) HTN -not on hypertensive medications at home -start amlodipine 5 mg #) Type 2 Diabetes -uncontrolled, Hgba1c 7.3 on 02/07/18 -c/w metformin -Accucheck ACHS -sliding scale ordered due to FS >300 #) DVT Prophylaxis -Lovenox 40 mg sc daily #) Left sided chest pain -reproducible -EKG sinus tachycardia -troponin x 2 -resolved
--- NOTE | 2018-03-05 12:57 | RAD ---
Date of service: 03/04/2018 HISTORY: Sepsis Patient COMPARISON: 02/11/2018 FINDINGS: LUNGS: No active pulmonary disease. PLEURA: No significant pleural effusion identified, no pneumothorax apparent. CARDIOVASCULAR: Normal. OSSEOUS STRUCTURES: No significant abnormalities. VISUALIZED UPPER ABDOMEN: Normal. OTHER FINDINGS: None. IMPRESSION: No active disease.
[2018-03-05 15:43] LABS: BLOOD UREA NITROGEN 27 mg/dl (9-20); CALCIUM 8.1 mg/dL (8.4-10.2); GFR NON-AFRICAN AMERICAN > 60
[2018-03-05 17:29] LABS: URINE BILIRUBIN NEGATIVE (NEGATIVE); URINE BLOOD SMALL (NEGATIVE); URINE CLARITY CLEAR (Clear); URINE COLOR YELLOW (YELLOW); URINE GLUCOSE (UA) >=500 mg/dL (Normal); URINE LEUKOCYTE ESTERASE NEG Leu/uL (Negative); URINE PROTEIN 30 mg/dL (NEGATIVE); URINE UROBILINOGEN 0.2-1.0 mg/dL (0.2-1.0)
[2018-03-06] MEDS ORDERED: Sodium Chloride 0.9% 1,000 ML IV SCH ×2 (00:05→10:00)
[2018-03-06] MEDS: Albuterol-Ipratrop 3 mg / 0.5 (3 ml) UD INH SCH ×6 (00:59→19:28)
[2018-03-06] MEDS: Piperacillin/Tazobact 3.375 GM in Sodium Chloride 0.9% 100 ML IVPB SCH ×4 (03:00→21:48)
[2018-03-06 05:39] LABS: BASO % 0.2 % (0.0-2.0); HEMOGLOBIN 11.4 g/dL (12.0-18.0); LYMPH % 10.1 % (20.0-40.0); MEAN CELL VOLUME 81.1 fl (80.0-94.0); MEAN CORPUSCULAR HEMOGLOBIN 27.2 pg (27.0-31.0); MEAN CORPUSCULAR HGB CONC 33.5 g/dL (33.0-37.0); MEAN PLATELET VOLUME 7.9 fl (7.2-11.7); MONO # 0.8 K/uL (0.0-0.8); MONO % 7.6 % (0.0-10.0); NEUT # 8.3 K/uL (1.8-7.0); NEUT % 82.1 % (50.0-75.0); NRBC % 0.1 % (0.0-0.0); RBC 4.21 Mil/uL (4.40-5.90); RED CELL DISTRIBUTION WIDTH 17.7 % (11.5-14.5); WHITE BLOOD COUNT 10.1 K/uL (4.8-10.8)
[2018-03-06 05:42] LABS: BLOOD UREA NITROGEN 24 mg/dl (9-20); CALCIUM 8.6 mg/dL (8.4-10.2); GFR NON-AFRICAN AMERICAN > 60
[2018-03-06] MEDS: Insulin Lispro (humaLOG) 100 Units/ml Inj SC SCH ×4 (06:32→21:42)
[2018-03-06] MEDS: Enoxaparin 40 mg Syringe SC SCH (09:10)
[2018-03-06] MEDS: Magnesium Oxide 400 mg Tab UD PO SCH ×2 (09:11→17:09)
--- NOTE | 2018-03-06 10:55 | CP.PCM.PN ---
Subjective - Date & Time of Evaluation Date of Evaluation: 03/06/18 Time of Evaluation: 09:25 - Subjective Subjective: Patient seen and evaluated during morning rounds. Patient sitting in bed comfortably. Improvement in SOB. Denies any dyspnea at rest. Patient reports cough with greenish sputum. Reproducible chest pain present. Dysuria and lower abdominal pain present. Denies any fever, chills, nausea, vomiting, diarrhea, urinary frequency or urgency, edema of lower extremity, headache or dizziness. Insurance documentation continues to be an issue for outpatient medication adherence. Needs social work nurse eval. Objective - Vital Signs/Intake and Output Vital Signs (last 24 hours): Temp Pulse Resp BP Pulse Ox 97.8 F 86 16 152/86 H 100 03/06/18 08:00 03/06/18 09:10 03/06/18 08:00 03/06/18 09:10 03/06/18 08:00 - Medications Medications: Current Medications Acetaminophen (Tylenol 325mg Tab) 650 mg PO Q6 PRN PRN Reason: Pain, Mild (1-3) Acetaminophen (Tylenol 325mg Tab) 650 mg PO Q6 PRN PRN Reason: Fever >100.4 F Albuterol/Ipratropium (Duoneb 3 Mg/0.5 Mg (3 Ml) Ud) 3 ml INH RQ4 [facility] Last Admin: 03/06/18 07:38 Dose: 3 ml Amlodipine Besylate (Norvasc) 5 mg PO DAILY [facility] Last Admin: 03/06/18 09:10 Dose: 5 mg Dextrose (Dextrose 50% Inj) 0 ml IV STAT PRN; Protocol PRN Reason: Hypoglycemia Protocol Dextrose (Glutose 15) 0 gm PO ONCE PRN; Protocol PRN Reason: Hypoglycemia Protocol Enoxaparin Sodium (Lovenox) 40 mg SC DAILY [facility] PRN Reason: Protocol Last Admin: 03/06/18 09:10 Dose: 40 mg Glucagon (Glucagen Diagnostic Kit) 0 mg IM STAT PRN; Protocol PRN Reason: Hypoglycemia Protocol Vancomycin HCl 1,250 mg/ (Sodium Chloride) 250 mls @ 125 mls/hr IVPB Q12 [facility] PRN Reason: Protocol Last Admin: 03/05/18 21:05 Dose: 125 mls/hr Piperacillin Sod/Tazobactam (Sod 3.375 gm/ Sodium Chloride) 100 mls @ 100 mls/ hr IVPB Q6 [facility] PRN Reason: Protocol Last Admin: 03/06/18 09:15 Dose: 100 mls/hr Sodium Chloride (Sodium Chloride 0.9%) 1,000 mls @ 120 mls/hr IV .Q8H20M [facility] Stop: 03/07/18 12:00 Insulin Human Lispro (Humalog) 0 units SC ACHS [facility] PRN Reason: Protocol Last Admin: 03/06/18 06:32 Dose: 6 units Ketorolac Tromethamine (Toradol) 15 mg IVP Q6 PRN PRN Reason: Pain, moderate (4-7) Magnesium Oxide (Mag-Ox) 400 mg PO BID [facility] Stop: 03/06/18 17:01 Last Admin: 03/06/18 09:11 Dose: 400 mg Ondansetron HCl (Zofran Inj) 4 mg IVP Q6 PRN PRN Reason: Nausea/Vomiting - Labs Labs: 03/06/18 04:38 03/06/18 04:38 PT 11.1 Seconds (9.8-13.1) 03/04/18 16:47 INR 1.0 03/04/18 16:47 APTT 20.2 Seconds (25.6-37.1) L 03/04/18 16:47 - Constitutional Appears: Well, Non-toxic, No Acute Distress - Head Exam Head Exam: ATRAUMATIC, NORMAL INSPECTION, NORMOCEPHALIC - Eye Exam Eye Exam: PERRL - ENT Exam ENT Exam: Mucous Membranes Moist - Neck Exam Neck Exam: absent: Lymphadenopathy - Respiratory Exam Respiratory Exam: Chest Wall Tenderness, Prolonged Expiratory Phase, Wheezes. absent: Accessory Muscle Use, Clear to Ausculation Bilateral, Rhonchi, Respiratory Distress - Cardiovascular Exam Cardiovascular Exam: REGULAR RHYTHM, +S1, +S2. absent: Murmur - GI/Abdominal Exam GI & Abdominal Exam: Soft, Tenderness, Normal Bowel Sounds. 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 Plan: Sepsis 2/2 to to Hospital Acquired Pneumonia -Lactate Trending down - 4.0>3.6>2.4 today -Will D/C NS -On zosyn/vanco due to recent hospitalization 02/11/18, w/ sputum culture + ESBL -C/W Vancomycin 1250 mg Q12 hr, Day # 2 -C/W Zosyn 3.375 Q6hr IVP, Day # 2 -f/u sputum cx, blood cx, urine cx -Will monitor vitals, labs COPD exacerbation -Improving -c/w duoneb inh q4h lovely -decrease solumedrol 60 mg BID to QD -O2 NL 4L PRN HAP -recent hospitalization 02/11/18, w/ purulent sputum -CXR: new infiltrates RLL as compared with last CXR -will cover with Vanco /Zosyn empiric -f/u sputum cx, blood cx Dysuria -UA + Glocose >500 and Small Blood, Negative for Chad, Nitrate -f/u urine cx Dehydration -Improving -BUN/cr 24/0.8 -f/u CMP HTN -Uncontrolled -Most likely due to nonadherance -start amlodipine 5 mg -Will monitor vitals Type 2 Diabetes -uncontrolled, Hgba1c 7.3 on 02/07/18 -c/w metformin -Accucheck ACHS -sliding scale ordered due to FS >300 DVT Prophylaxis -Lovenox 40 mg sc daily Left sided chest pain -reproducible -EKG sinus tachycardia -troponin x 2 -resolved Diet -Consistent carbohydrate diet Code status -Full code
[2018-03-07] MEDS: Albuterol-Ipratrop 3 mg / 0.5 (3 ml) UD INH SCH ×6 (00:50→19:15)
[2018-03-07] MEDS: Piperacillin/Tazobact 3.375 GM in Sodium Chloride 0.9% 100 ML IVPB SCH ×2 (04:47→09:00)
[2018-03-07] MEDS: Insulin Lispro (humaLOG) 100 Units/ml Inj SC SCH ×4 (06:34→22:04)
--- NOTE | 2018-03-07 08:26 | CP.PCM.PN ---
Subjective - Date & Time of Evaluation Date of Evaluation: 03/07/18 Time of Evaluation: 07:25 - Subjective Subjective: Patient seen and examined at bedside during morning rounds in telemetry. Patient reports an episode of SOB overnight which improved after duoneb treatment. Did not sleep well last night due to cough and SOB. Patient expectorating cough with yellowish productive sputum. No SOB at rest. Denies any chest pain, abdominal pain, N/V/D/C. Dysuria, frequency, urgency improving. Tolerating oral fluids and diet well. Objective - Vital Signs/Intake and Output Vital Signs (last 24 hours): Temp Pulse Resp BP Pulse Ox 97.7 F 90 18 149/73 98 03/07/18 08:10 03/07/18 08:10 03/07/18 08:10 03/07/18 08:10 03/07/18 08:10 - Medications Medications: Current Medications Acetaminophen (Tylenol 325mg Tab) 650 mg PO Q6 PRN PRN Reason: Pain, Mild (1-3) Acetaminophen (Tylenol 325mg Tab) 650 mg PO Q6 PRN PRN Reason: Fever >100.4 F Albuterol/Ipratropium (Duoneb 3 Mg/0.5 Mg (3 Ml) Ud) 3 ml INH RQ4 [facility] Last Admin: 03/07/18 07:43 Dose: 3 ml Amlodipine Besylate (Norvasc) 5 mg PO DAILY [facility] Last Admin: 03/06/18 09:10 Dose: 5 mg Dextrose (Dextrose 50% Inj) 0 ml IV STAT PRN; Protocol PRN Reason: Hypoglycemia Protocol Dextrose (Glutose 15) 0 gm PO ONCE PRN; Protocol PRN Reason: Hypoglycemia Protocol Enoxaparin Sodium (Lovenox) 40 mg SC DAILY [facility] PRN Reason: Protocol Last Admin: 03/06/18 09:10 Dose: 40 mg Glucagon (Glucagen Diagnostic Kit) 0 mg IM STAT PRN; Protocol PRN Reason: Hypoglycemia Protocol Vancomycin HCl 1,250 mg/ (Sodium Chloride) 250 mls @ 125 mls/hr IVPB Q12 [facility] PRN Reason: Protocol Last Admin: 03/06/18 21:42 Dose: 125 mls/hr Piperacillin Sod/Tazobactam (Sod 3.375 gm/ Sodium Chloride) 100 mls @ 100 mls/ hr IVPB Q6 [facility] PRN Reason: Protocol Last Admin: 03/07/18 04:47 Dose: 100 mls/hr Insulin Human Lispro (Humalog) 0 units SC ACHS [facility] PRN Reason: Protocol Last Admin: 03/07/18 06:34 Dose: 8 units Ketorolac Tromethamine (Toradol) 15 mg IVP Q6 PRN PRN Reason: Pain, moderate (4-7) Lactic Acid (Lac-Hydrin 12% Lotion (225 G)) 1 applic TOP TID PRN PRN Reason: Dry skin Ondansetron HCl (Zofran Inj) 4 mg IVP Q6 PRN PRN Reason: Nausea/Vomiting - Labs Labs: 03/06/18 04:38 03/06/18 04:38 PT 11.1 Seconds (9.8-13.1) 03/04/18 16:47 INR 1.0 03/04/18 16:47 APTT 20.2 Seconds (25.6-37.1) L 03/04/18 16:47 - Constitutional Appears: Well, Non-toxic, No Acute Distress - Head Exam Head Exam: ATRAUMATIC, NORMAL INSPECTION, NORMOCEPHALIC - Eye Exam Eye Exam: Normal appearance - ENT Exam ENT Exam: Mucous Membranes Moist Additional comments: Post nasal drip - Respiratory Exam Respiratory Exam: Chest Wall Tenderness, Prolonged Expiratory Phase, Wheezes. absent: Accessory Muscle Use, Respiratory Distress - Cardiovascular Exam Cardiovascular Exam: REGULAR RHYTHM, +S1, +S2. absent: Murmur - GI/Abdominal Exam GI & Abdominal Exam: Soft, Normal Bowel Sounds. absent: Guarding, Rigid, Tenderness - Extremities Exam Extremities Exam: absent: Pedal Edema, Tenderness - Neurological Exam Neurological Exam: Alert, Awake, Oriented x3 - Psychiatric Exam Psychiatric exam: Normal Affect, Normal Mood - Skin Skin Exam: Dry, Intact Additional comments: Hyperpigmentation of B/L UE and LE skin Assessment and Plan - Assessment and Plan (Free Text) Assessment: 67 year old undomiciled male with a PMHx of COPD, NIDDM2, HTN, PE with IVC filter (not on longterm anticoagulation due to history of retroperitoneal hematoma 2years ago), psoriasis admitted for COPD exacerbation and Hospital Acquired Pneumonia. Plan: COPD exacerbation -Worsening dyspnea and sputum volume -O2 NL 4L -C/w duoneb inh q4h lovely -C/W Prednisone 60 mg QD -Start flonase, and Mucinex 600 mg PO Q12 hr for cough -Mucomist INH BID LOVELY -Will monitor vitals Sepsis 2/2 to to Hospital Acquired Pneumonia -Afebrile -CXR 03/04/18: No active disease -Lactate Trending down - 4.0> 3.4 >2.6 -Will D/C NS, Tolerating oral fluids well. -D/C vacno/zosyn, Patient has been afebrile, no leukocytosis. -Negative: Blood culture 48 hrs, Urine culture -Sputum Gram stain rare gram + cocci, Culture pending -Will monitor vitals, labs Dysuria -Improving -UA + Glocose >500 and Small Blood, Negative for Chad, Nitrate -Urine Cx negative Dehydration -Improving -BUN/cr 24/0.8 -Will monitor status HTN -Controlled -C/W amlodipine 5 mg -Will monitor vitals Type 2 Diabetes -uncontrolled, Hgba1c 7.3 on 02/07/18 -c/w metformin -Start Levemir 10 units HS -Accucheck ACHS -sliding scale ordered due to FS >300 DVT Prophylaxis -Lovenox 40 mg sc daily Left sided chest pain -reproducible -EKG sinus tachycardia -troponin x 2 -resolved Diet -Consistent carbohydrate diet Code status -Full code
[2018-03-07] MEDS: Enoxaparin 40 mg Syringe SC SCH (09:01)
[2018-03-07] MEDS: guaiFENesin 600 mg ER Tab PO SCH ×2 (13:00→22:04)
[2018-03-07] MEDS: Magnesium Oxide 400 mg Tab UD PO SCH ×2 (14:00→17:27)
[2018-03-07] MEDS: Acetylcysteine 10% 4 ML IH SCH (19:15)
[2018-03-07] MEDS ORDERED: Insulin Detemir 100 Units/ml Inj SC SCH (22:00)
[2018-03-08] MEDS: Albuterol-Ipratrop 3 mg / 0.5 (3 ml) UD INH SCH ×5 (00:03→15:15)
[2018-03-08 00:23] VITALS: RESP 18
[2018-03-08] MEDS: Acetylcysteine 10% 4 ML IH SCH (07:16)
[2018-03-08] MEDS: Insulin Lispro (humaLOG) 100 Units/ml Inj SC SCH ×2 (09:39→12:38)
[2018-03-08] MEDS: Enoxaparin 40 mg Syringe SC SCH (09:41)
[2018-03-08] MEDS: Magnesium Oxide 400 mg Tab UD PO SCH (09:42)
[2018-03-08] MEDS: guaiFENesin 600 mg ER Tab PO SCH (09:43)
--- NOTE | 2018-03-08 11:37 | CP.PCM.DIS ---
Provider - Provider Date of Admission: 03/06/18 11:03 Attending physician: Tennille Tavares MD Time Spent in preparation of Discharge (in minutes): 15 Diagnosis - Discharge Diagnosis (1) COPD exacerbation Status: Acute (2) Diabetes mellitus Status: Chronic (3) Hypertension Status: Chronic Hospital Course - Lab Results Lab Results: Micro Results 03/04/18 16:37 Blood Blood Culture - Preliminary NO GROWTH AFTER 3 DAYS 03/06/18 09:45 Sputum Gram Stain - Final 03/05/18 17:21 Urine,Clean Catch Urine Culture - Final No Growth (<1,000 CFU/ML) 03/05/18 09:44 Sputum Gram Stain - Final 03/05/18 09:44 Sputum Sputum Culture - Final Most Recent Lab Values WBC 10.1 K/uL (4.8-10.8) 03/06/18 04:38 RBC 4.21 Mil/uL (4.40-5.90) L 03/06/18 04:38 Hgb 11.4 g/dL (12.0-18.0) L 03/06/18 04:38 Hct 34.1 % (35.0-51.0) L 03/06/18 04:38 MCV 81.1 fl (80.0-94.0) 03/06/18 04:38 MCH 27.2 pg (27.0-31.0) 03/06/18 04:38 MCHC 33.5 g/dL (33.0-37.0) 03/06/18 04:38 RDW 17.7 % (11.5-14.5) H 03/06/18 04:38 Plt Count 193 K/uL (130-400) 03/06/18 04:38 MPV 7.9 fl (7.2-11.7) 03/06/18 04:38 Neut % (Auto) 82.1 % (50.0-75.0) H 03/06/18 04:38 Lymph % (Auto) 10.1 % (20.0-40.0) L 03/06/18 04:38 [place] % (Auto) 7.6 % (0.0-10.0) 03/06/18 04:38 Eos % (Auto) 0.0 % (0.0-4.0) 03/06/18 04:38 Baso % (Auto) 0.2 % (0.0-2.0) 03/06/18 04:38 Neut # (Auto) 8.3 K/uL (1.8-7.0) H 03/06/18 04:38 Lymph # (Auto) 1.0 K/uL (1.0-4.3) 03/06/18 04:38 [place] # (Auto) 0.8 K/uL (0.0-0.8) 03/06/18 04:38 Eos # (Auto) 0.0 K/uL (0.0-0.7) 03/06/18 04:38 Baso # (Auto) 0.0 K/uL (0.0-0.2) 03/06/18 04:38 PT 11.1 Seconds (9.8-13.1) 03/04/18 16:47 INR 1.0 03/04/18 16:47 APTT 20.2 Seconds (25.6-37.1) L 03/04/18 16:47 pCO2 35 mm/Hg (35-45) 03/04/18 16:48 pO2 181 mm/Hg (80-100) H 03/04/18 16:48 HCO3 27.2 mmol/L (21-28) 03/04/18 16:48 ABG pH 7.48 (7.35-7.45) H 03/04/18 16:48 ABG Total CO2 27.2 mmol/L (22-28) 03/04/18 16:48 ABG O2 Saturation 99.8 % (95-98) H 03/04/18 16:48 ABG Base Excess 2.8 mmol/L (-2.0-3.0) 03/04/18 16:48 Slim Test Yes 03/04/18 16:48 ABG Potassium 3.9 mmol/L (3.6-5.2) 03/04/18 16:48 A-a O2 Difference 60.0 mm/Hg 03/04/18 16:48 Sodium 137.0 mmol/L (132-148) 03/04/18 16:48 Chloride 105.0 mmol/L (98-107) 03/04/18 16:48 Glucose 307 mg/dL (75-110) H 03/04/18 16:48 Lactate 2.4 mmol/L (0.7-2.1) H 03/04/18 16:48 FiO2 40.0 % 03/04/18 16:48 Blood Gas Comments Lac=2.4 03/04/18 16:48 Crit Value Called To micha Gomez 03/04/18 16:48 Crit Value Called By 03/04/18 16:48 Crit Value Read Back Y 03/04/18 16:48 Blood Gas Notified Time 1658 03/04/18 16:48 Sodium 137 mmol/l (132-148) 03/06/18 04:38 Potassium 4.3 MMOL/L (3.6-5.0) 03/06/18 04:38 Chloride 104 mmol/L (98-107) 03/06/18 04:38 Carbon Dioxide 27 mmol/L (22-30) 03/06/18 04:38 Anion Gap 10 (10-20) 03/06/18 04:38 BUN 24 mg/dl (9-20) H 03/06/18 04:38 Creatinine 0.8 mg/dl (0.8-1.5) 03/06/18 04:38 Est GFR ( Amer) > 60 03/06/18 04:38 Est GFR (Non-Af Amer) > 60 03/06/18 04:38 POC Glucose (mg/dL) 205 mg/dL (65-110) H 03/08/18 10:57 Random Glucose 341 mg/dL (75-110) H 03/06/18 04:38 Lactic Acid 2.6 MMOL/L (0.7-2.1) H 03/06/18 04:38 Calcium 8.6 mg/dL (8.4-10.2) 03/06/18 04:38 Phosphorus 3.2 mg/dl (2.5-4.5) 03/06/18 04:38 Magnesium 1.2 MG/DL (1.6-2.3) L 03/07/18 09:30 Total Bilirubin 0.4 mg/dl (0.2-1.3) 03/05/18 06:17 AST 22 U/L (17-59) 03/05/18 06:17 ALT 25 U/L (21-72) 03/05/18 06:17 Alkaline Phosphatase 51 U/L (38-126) 03/05/18 06:17 Troponin I 0.0140 ng/mL (0.00-0.120) 03/05/18 00:36 NT-Pro-B Natriuret Pep 427 pg/ml (0-900) 03/04/18 16:47 Total Protein 5.7 G/DL (6.3-8.2) L 03/05/18 06:17 Albumin 3.3 g/dL (3.5-5.0) L 03/05/18 06:17 Globulin 2.5 gm/dL (2.2-3.9) 03/05/18 06:17 Albumin/Globulin Ratio 1.3 (1.0-2.1) 03/05/18 06:17 Arterial Blood Potassium 3.9 mmol/L (3.6-5.2) 03/04/18 16:48 Urine Color Yellow (YELLOW) 03/05/18 17:21 Urine Clarity Clear (Clear) 03/05/18 17:21 Urine pH 5.0 (5.0-8.0) 03/05/18 17:21 Ur Specific [place] 1.028 (1.003-1.030) 03/05/18 17:21 Urine Protein 30 mg/dL (NEGATIVE) 03/05/18 17:21 Urine Glucose (UA) >=500 mg/dL (Normal) 03/05/18 17:21 Urine Ketones Negative mg/dL (NEGATIVE) 03/05/18 17:21 Urine Blood Small (NEGATIVE) 03/05/18 17:21 Urine Nitrate Negative (NEGATIVE) 03/05/18 17:21 Urine Bilirubin Negative (NEGATIVE) 03/05/18 17:21 Urine Urobilinogen 0.2-1.0 mg/dL (0.2-1.0) 03/05/18 17:21 Ur Leukocyte Esterase Neg Chad/uL (Negative) 03/05/18 17:21 Urine RBC (Auto) 2 /hpf (0-3) 03/05/18 17:21 Urine Microscopic WBC < 1 /hpf (0-5) 03/05/18 17:21 Vancomycin Trough 15.1 ug/mL (5.0-10.0) H 03/06/18 09:41 HIV 1&2 Ag/Ab, 4th Gen Nonreactive (Nonreactive) 03/05/18 15:00 - Hospital Course Hospital Course: 67 y/o homeless male with a PMHx/o COPD, NIDDM2, HTN, PE with IVC filter, psoriasis, presents to ED c/o shortness of breath, cough and reproducible chest pain. In ED patient received Duoneb x 3, Solumedrol 125 mg IV in ED with improvement in status. EKG consistent with sinus tachycardia but no acute ST changes. CXR: No acute disease. Labs monitored. Patient remained afebrile with no leukocytosis, improved with duoneb, O2, solumedrol, mucomist, flonase. Patient discharged on Albuterol PRN, Amlodipine 5 mg daily, advair, metformin 500 mg BID and Prednisone 40 mg. Patient to F/U at [facility] on 03/11/18 at 3.00. Discharge Medications Albuterol HFA [Ventolin HFA 90 mcg/actuation (8 g)] 2 puff INH RQ4 PRN #1 inhaler PRN Reason: Shortness Of Breath amLODIPine [Norvasc] 5 mg PO DAILY #30 tab Fluticasone/Salmeterol 500/50 [Advair Diskus 500/50] 1 puff IH Q12 #1 dsk metFORMIN [glucOPHAGE] 500 mg PO BIDWM #60 tab predniSONE [predniSONE Tab] 40 mg PO DAILY 3 Days #3 tab Discharge Exam - Head Exam Head Exam: ATRAUMATIC, NORMAL INSPECTION, NORMOCEPHALIC - Eye Exam Eye Exam: Normal appearance - ENT Exam ENT Exam: Mucous Membranes Moist Additional comments: Bilateral nasal polyp - Respiratory Exam Respiratory Exam: Wheezes. absent: Accessory Muscle Use, Chest Wall Tenderness , Decreased Breath Sounds, Prolonged Expiratory Phase, Respiratory Distress - GI/Abdominal Exam GI & Abdominal Exam: Normal Bowel Sounds, Soft. absent: Guarding, Rigid, Tenderness - Extremities Exam Additional comments: No pedal edema, calf tenderness - Back Exam Back exam: absent: CVA tenderness (L), CVA tenderness (R) - Neurological Exam Neurological exam: Alert, Oriented x3 - Psychiatric Exam Psychiatric exam: Normal Affect, Normal Mood - Skin Skin Exam: Dry, Intact Additional comments: hyperpigmented, dry skin B/L UE and LE Discharge Plan - Discharge Medications Prescriptions: Albuterol HFA [Ventolin HFA 90 mcg/actuation (8 g)] 2 puff INH RQ4 PRN #1 inhaler PRN Reason: Shortness Of Breath amLODIPine [Norvasc] 5 mg PO DAILY #30 tab Fluticasone/Salmeterol 500/50 [Advair Diskus 500/50] 1 puff IH Q12 #1 dsk metFORMIN [glucOPHAGE] 500 mg PO BIDWM #60 tab predniSONE [predniSONE Tab] 40 mg PO DAILY 3 Days #3 tab - Follow Up Plan Condition: STABLE Disposition: HOME/ ROUTINE Patient education suggested?: Yes Instructions: Chronic Obstructive Pulmonary Disease (COPD), Including Emphysema , Exacerbation of COPD Additional Instructions: Follow up at [facility] at 3:00 PM on 03/11/18. Referrals: [facility] [place] [Outside]
[2018-03-08 16:06] VITALS: BP 157/83; PULSE 112; TEMP 97.9; O2SAT 99
--- NOTE | 2018-03-11 16:27 | PQF ---
PROVIDER RESPONSE TEXT: Patient did not have sepsis REVIEWER QUERY TEXT: Documentation Clarification Your help is requested in clarifying the following clinical documentation. Sepsis documented in progr ess notes but not in Discharge Summary. If you can please further specify in the medical record and d ischarge summary if pt had a diagnosis of sepsis. The patient's Clinical Indicators include: Sepsis documented in progress notes dated 03/05,03/06 and 03/07. Query created by: Madeline Lake on 03/09/2018 2:01 PM Electronically signed by: Tennille Tavares MD 03/11/2018 4:24 PM
== END 2018-03-08 16:50 | disposition home or self-care (01) | DRG 541 ==
LOC: H.ER 16:15 → H.ERHOLD 17:58 → H.TEL 23:05 → OBSVTOIN 03-06 11:03
PROVIDERS: ADMIT Family Medicine Geriatric Medicine; ATTEND Family Medicine Geriatric Medicine
DX: J44.0 Chronic obstructive pulmonary disease with (acute) lower respiratory infection (principal); J18.9 Pneumonia, unspecified organism; E11.65 Type 2 diabetes mellitus with hyperglycemia; E86.0 Dehydration; J44.1 Chronic obstructive pulmonary disease with (acute) exacerbation; L40.9 Psoriasis, unspecified; Y95 Nosocomial condition; Z59.0 Homelessness; Z87.891 Personal history of nicotine dependence; E78.00 Pure hypercholesterolemia, unspecified; Z86.711 Personal history of pulmonary embolism; R00.0 Tachycardia, unspecified; R30.0 Dysuria; I10 Essential (primary) hypertension

== ENCOUNTER 2018-04-01 16:25 | Inpatient (IN) | payer OTHER, SELFPAY ==
[2018-04-01 16:25] VITALS: BMI 27.5
[2018-04-01] MEDS ORDERED: Albuterol-Ipratrop 3 mg / 0.5 (3 ml) UD INH STA ×3 (17:46→17:47)
[2018-04-01] MEDS ORDERED: Albuterol-Ipratrop 3 mg / 0.5 (3 ml) UD ONE (18:18)
[2018-04-01 18:19] LABS: ABG ALLEN TEST YES; ARTERIAL BLOOD GAS HCO3 27.4 mmol/L (21-28); ARTERIAL BLOOD GAS HEMOGLOBIN 11.3 g/dL (11.7-17.4); ARTERIAL BLOOD GAS O2 CAPACITY 15.1 mL/dL (16-24); ARTERIAL BLOOD GAS O2 CONTENT 15.1 ML/dL (15-23); ARTERIAL BLOOD GAS O2 SAT 99.8 % (95-98); ARTERIAL BLOOD GAS PCO2 37 mm/Hg (35-45); ARTERIAL BLOOD GAS PH 7.47 (7.35-7.45); ARTERIAL BLOOD GAS PO2 78 mm/Hg (80-100)
[2018-04-01 18:22] LABS: BASO # 0.1 K/uL (0.0-0.2); BASO % 0.9 % (0.0-2.0); EOS # 0.1 K/uL (0.0-0.7); EOS % 1.1 % (0.0-4.0); HEMOGLOBIN 11.2 g/dL (12.0-18.0); LYMPH # 3.5 K/uL (1.0-4.3); LYMPH % 35.9 % (20.0-40.0); MEAN CELL VOLUME 82.2 fl (80.0-94.0); MEAN CORPUSCULAR HEMOGLOBIN 27.1 pg (27.0-31.0); MEAN PLATELET VOLUME 8.5 fl (7.2-11.7); MONO # 1.5 K/uL (0.0-0.8); MONO % 15.4 % (0.0-10.0); NEUT # 4.5 K/uL (1.8-7.0); NEUT % 46.7 % (50.0-75.0); NRBC % 0.1 % (0.0-0.0); RBC 4.15 Mil/uL (4.40-5.90); RED CELL DISTRIBUTION WIDTH 19.1 % (11.5-14.5); WHITE BLOOD COUNT 9.8 K/uL (4.8-10.8)
--- NOTE | 2018-04-01 18:25 | RAD ---
Date of service: 04/01/2018 PROCEDURE: CHEST RADIOGRAPH, 1 VIEW HISTORY: dyspnea COMPARISON: 03/04/2018. FINDINGS: LUNGS: Clear. PLEURA: No pneumothorax or pleural fluid seen. CARDIOVASCULAR: No radiographic findings to suggest acute or significant cardiovascular disease. OSSEOUS STRUCTURES: No significant abnormalities. VISUALIZED UPPER ABDOMEN: Normal. OTHER FINDINGS: None. IMPRESSION: No active disease. No acute/significant interval changes.
[2018-04-01 18:37] LABS: BLOOD UREA NITROGEN 14 mg/dl (9-20); CALCIUM 8.6 mg/dL (8.4-10.2); GFR NON-AFRICAN AMERICAN > 60
--- NOTE | 2018-04-01 19:07 | ED PDOC ---
HPI: SOB/CHF/COPD Time Seen by Provider: 04/01/18 17:12 Chief Complaint (Nursing): Shortness Of Breath Chief Complaint (Provider): Shortness Of Breath History Per: Patient History/Exam Limitations: no limitations Onset/Duration Of Symptoms: Days (x1) Current Symptoms Are (Timing): Still Present Additional Complaint(s): 67 year old male with pmHx of COPD, PE and DVT, arrives to ED with complaint of difficulty breathing associated with chest pain, nonproductive cough, wheezing, dizziness, chills and tactile fever. Patient states he had outdoor exposure all day but took no breathing treatments, pumps, or other medication for relief. He denies any vomiting, diarrhea, or syncope. Patient has had multiple hospital admission for similar complaints. PMD: [facility] Past Medical History Reviewed: Historical Data, Nursing Documentation, Vital Signs Vital Signs: Last Vital Signs Temp 97.5 F L 04/02/18 16:12 Pulse 74 04/02/18 16:12 Resp 20 04/02/18 16:12 BP 96/53 L 04/02/18 16:12 Pulse Ox 97 04/02/18 16:25 - Medical History PMH: Asthma, CHF, COPD, Diabetes, HTN, Hypercholesterolemia, Pneumonia, Pulmonary Embolism Denies: HIV, Chronic Kidney Disease - Surgical History Other surgeries: IVC filter - Family History Family History: States: [place], Diabetes - Social History Current smoker - smoking cessation education provided: No Ex-Smoker (has not smoked in the last 12 months): Yes - Immunization History Hx Tetanus Toxoid Vaccination: No Hx Influenza Vaccination: No Hx Pneumococcal Vaccination: No - Home Medications Home Medications: Ambulatory Orders Medication Instructions Recorded Albuterol HFA [Ventolin HFA 90 2 puff INH RQ4 PRN #1 inhaler 03/08/18 mcg/actuation (8 g)] Fluticasone Propionate [Flonase] 2 spr VADIM DAILY bottle 03/08/18 Fluticasone/Salmeterol 500/50 1 puff IH Q12 #1 dsk 03/08/18 [Advair Diskus 500/50] amLODIPine [Norvasc] 5 mg PO DAILY #30 tab 03/08/18 metFORMIN [glucOPHAGE] 500 mg PO BIDWM #60 tab 03/08/18 predniSONE [predniSONE Tab] 40 mg PO DAILY 3 Days #3 tab 03/08/18 - Allergies Allergies/Adverse Reactions: Allergies Allergy/AdvReac Type Severity Reaction Status Date / Time No Known Allergies Allergy Verified 04/01/18 16:38 Wells Criteria for PE - Wells Criteria for Pulmonary Embolism Clinical Signs and Symptoms of DVT: No P.E is #1 Diagnosis, or Equally Likely: No Heart Rate >100: No Immobilization at least 3 days;Surgery previous 4 weeks: No Previous, objectively diagnosed PE or DVT: Yes (IVC filter) Hemoptysis: No Malignancy w/treatment within 6 months, or palliative: No Total Score: 1.5 Review of Systems ROS Statement: Except As Marked, All Systems Reviewed And Found Negative Constitutional: Positive for: Fever (tactile), Chills Cardiovascular: Positive for: Chest Pain Respiratory: Positive for: Cough (nonproductive), Shortness of Breath, Wheezing Gastrointestinal: Negative for: Vomiting, Diarrhea Neurological: Positive for: Dizziness. Negative for: Other (syncope) Physical Exam - Reviewed Nursing Documentation Reviewed: Yes Vital Signs Reviewed: Yes - Physical Exam Appears: Positive for: Uncomfortable Head Exam: Positive for: ATRAUMATIC, NORMAL INSPECTION, NORMOCEPHALIC Skin: Positive for: Normal Color Eye Exam: Positive for: Normal appearance ENT: Positive for: Normal ENT Inspection Neck: Positive for: Normal Cardiovascular/Chest: Positive for: Regular Rate, Rhythm, Chest Non Tender, Tachycardia (with regular rhythm). Negative for: Murmur Respiratory: Positive for: Accessory Muscle Use, Wheezing (diffuse, expiratory bilaterally), Respiratory Distress (mildly) Gastrointestinal/Abdominal: Positive for: Normal Exam, Soft. Negative for: Tenderness Extremity: Positive for: Normal ROM (upper/lower), Pedal Edema (chronic and nonpitting with chronic stasis dermatitis bilaterally) Neurologic/Psych: Positive for: Alert, Oriented. Negative for: Motor/Sensory Deficits - Laboratory Results Result Diagrams: 04/01/18 18:10 04/01/18 18:10 - ECG O2 Sat by Pulse Oximetry: 97 (RA) Pulse Ox Interpretation: Normal Nebulizer Treatments/Peak Flow - Duonebs Number of Bronchodilator Doses given?: 3 - Steroid Treatment Steroid: IV - Clinical Response Clinical Response: Unchanged Medical Decision Making Medical Decision Making: Initial Impression: Chest pain; dyspnea with wheezing Differential Diagnosis: COPD exacerbation, pneumonia, CHF, Initial Plan: * Lab * EKG * CXR * Duoneb 3ml INH Time: --CXR: negative for fracture or active disease. Scribe Attestation: Documented by Amy Mederos, acting as a scribe for Maverick Hsu MD. Provider Scribe Attestation: All medical record entries made by the Scribe were at my direction and personally dictated by me. I have reviewed the chart and agree that the record accurately reflects my personal performance of the history, physical exam, medical decision making, and the department course for this patient. I have also personally directed, reviewed, and agree with the discharge instructions and disposition. Disposition - Clinical Impression Clinical Impression: COPD exacerbation Discussed With : Lida Fernandes Doctor Will See Patient In The: ED Counseled Patient/Family Regarding: Studies Performed, Diagnosis - Disposition Disposition Time: 20:00 Condition: FAIR - Pt Status Changed To: Hospital Disposition Of: Observation - POA Present On Arrival: None
[2018-04-01 19:20] LABS: B-TYPE NATRIURETIC PEPTIDE 381 pg/ml (0-900)
[2018-04-01] MEDS ORDERED: levoFLOXacin 500 mg in D5W 500 MG/100 ML BAG IVPB STA (19:57)
--- NOTE | 2018-04-01 21:04 | CP.PCM.HP ---
<Stephany Steele - Last Filed: 04/01/18 23:26> History of Present Illness - History of Present Illness History of Present Illness: 67 yr old homeless M presents to ED with complaint of SOB with chest pain, wheezing, nonproductive cough, fevers and chills worsening x 2 days. PMHx includes COPD, NIDDM type 2, HTN, PE s/p IVC filter (not on anticoagulation) and psoriasis. Patient reports he was outside in the park all day and his SOB persisted and worsened. He is not taking any medication (by mouth or inhaled). Patient reports additional symptoms including watery eyes, dysuria and malodorous urine. Denies hematuria, nausea, vomiting, diarrhea, weakness or left upper extremity pain. Chest pain is 5/10, dull ache, worsens with deep breaths. Patient sleeps in a correction or in his friends house ocassionally. PMD: None (patient has missed all appointments at [facility], has not gone once) PMHx: COPD, NIDDM type 2, HTN, PE s/p IVC filter-2014 (not on anticoagulation), hx of retroperitoneal hematoma (2014) and psoriasis SurgHx: IVC filter FMHx: no family hx of heart disease or cancer, sister has diabetes SocHx: former smoker (30 pack years, quit 1 yr ago), former Etoh abuse (last drink in 04/2017), denies drug use; is homeless, sometimes sleeps in his friends house Medications: none Allergies: NKDA ED course: BP 149/74 mmHg, HR 109, Temp 98.1 F, Resp rate 24, SpO2 97% on room air -CXR: no active disease -EKG: sinus tachycardia at 112 bpm, no significant ST-T changes -CBC: wnl -ABG: pH 7.47, pCO2 37, pO2 78, HCO3 27.4, O2 sat 99.8% -CMP: Na 141, K+ 3.9, CL 107, HCO3 26, AG 12, BUN 14/Cr 0.7, Est GFR > 60, troponin < 0.0120 -proBNP 381 -ED treatment: Duoneb x 3, supplemental O2-high flow via nasal cannula, Methylprednisolone 125mg IV once, Levofloxacin 500mg IV once Present on Admission - Present on Admission Any Indicators Present on Admission: Yes History of DVT/PE: Yes History of Uncontrolled Diabetes: Yes Urinary Catheter: No Decubitus Ulcer Present: No History Surgical Site Infection Following: None Review of Systems - Constitutional Constitutional: Chills, Fever. absent: Headache, Weakness - EENT Eyes: absent: Change in Vision Ears: Dizziness Nose/Mouth/Throat: absent: Nasal Congestion, Sore Throat - Cardiovascular Cardiovascular: Chest Pain, Pedal Edema. absent: Palpitations, Syncope - Respiratory Respiratory: Cough (nonproductive), Wheezing, Chest Congestion, Pain with Coughing. absent: Hemoptysis, Excessive Mucous Production - Gastrointestinal Gastrointestinal: absent: Abdominal Pain, Diarrhea, Nausea, Vomiting - Genitourinary Genitourinary: Dysuria (with malodorous urine). absent: Difficulty Urinating, Hematuria - Musculoskeletal Musculoskeletal: Back Pain (bilateral lower). absent: Numbness, Tingling - Integumentary Integumentary: Change in Pigmentation (LE), Dry Skin - Neurological Neurological: Dizziness. absent: Abnormal Speech, Confusion, Syncope, Weakness - Psychiatric Psychiatric: absent: Anxiety - Endocrine Endocrine: absent: Polydipsia, Polyphagia, Polyuria - Hematologic/Lymphatic Hematologic: absent: Easy Bleeding, Easy Bruising Past Patient History - Infectious Disease Hx of Infectious Diseases: None - Tetanus Immunizations Tetanus Immunization: Unknown - Past Medical History & Family History Past Medical History?: Yes - Past Social History Smoking Status: Former Smoker - CARDIAC Hx Congestive Heart Failure: Yes Hx Hypercholesterolemia: Yes Hx Hypertension: Yes - PULMONARY Hx Asthma: Yes Hx Chronic Obstructive Pulmonary Disease (COPD): Yes Hx Pneumonia: Yes Hx Pulmonary Embolism: Yes - NEUROLOGICAL Hx Neurological Disorder: No - HEENT Hx HEENT Problems: No - RENAL Hx Chronic Kidney Disease: No - ENDOCRINE/METABOLIC Hx Endocrine Disorders: Yes Hx Diabetes Mellitus Type 2: Yes - HEMATOLOGICAL/ONCOLOGICAL Hx Human Immunodeficiency Virus (HIV): No - INTEGUMENTARY Hx Dermatological Problems: Yes (GENERALIZED SKIN PSORIASIS) - MUSCULOSKELETAL/RHEUMATOLOGICAL Hx Musculoskeletal Disorders: No Hx Falls: No - GASTROINTESTINAL Hx Gastrointestinal Disorders: Yes Other/Comment: GI bleeding - GENITOURINARY/GYNECOLOGICAL Hx Genitourinary Disorders: No - PSYCHIATRIC Hx Psychophysiologic Disorder: No Hx Substance Use: No - SURGICAL HISTORY Hx Surgeries: Yes Other/Comment: IVC Filter - ANESTHESIA Hx Anesthesia: Yes Hx Anesthesia Reactions: No Hx Malignant Hyperthermia: No Meds Allergies/Adverse Reactions: Allergies Allergy/AdvReac Type Severity Reaction Status Date / Time No Known Allergies Allergy Verified 04/01/18 16:38 Physical Exam - Constitutional Appears: No Acute Distress, Unkempt, Older Than Stated Age - Head Exam Head Exam: ATRAUMATIC, NORMOCEPHALIC - Eye Exam Eye Exam: EOMI, PERRL (teary eyes ). absent: Scleral icterus - ENT Exam ENT Exam: Mucous Membranes Moist - Neck Exam Neck exam: Positive for: Full Rom. Negative for: Lymphadenopathy - Respiratory Exam Respiratory Exam: Decreased Breath Sounds (bilateral lower quadrants), Wheezes ( expiratory, diffuse bilaterally). absent: Rales, Rhonchi - Cardiovascular Exam Cardiovascular Exam: Tachycardia, +S1, +S2 - GI/Abdominal Exam GI & Abdominal Exam: Normal Bowel Sounds, Soft (obese), Tenderness (mild-in all quadrants) - Extremities Exam Extremities exam: Positive for: full ROM, pedal edema (nonpitting), pedal pulses present. Negative for: tenderness - Neurological Exam Neurological exam: Alert, CN II-XII Intact, Oriented x3 - Psychiatric Exam Psychiatric exam: Normal Affect, Normal Mood - Skin Skin Exam: Dry, Warm (bilateral LE venous stasis changes, hyperpigmented scaly/ dry skin) Results - Vital Signs Recent Vital Signs: Last Vital Signs Temp 98.1 F 04/01/18 16:38 Pulse 109 H 04/01/18 16:38 Resp 24 04/01/18 20:30 BP 149/74 04/01/18 16:38 Pulse Ox 97 04/01/18 19:36 - Labs Result Diagrams: 04/01/18 18:10 04/01/18 18:10 Labs: Laboratory Results - last 24 hr 04/01/18 04/01/18 04/01/18 18:07 18:10 18:10 WBC 9.8 RBC 4.15 L Hgb 11.2 L Hct 34.1 L MCV 82.2 MCH 27.1 MCHC 33.0 RDW 19.1 H Plt Count 193 MPV 8.5 Neut % (Auto) 46.7 L Lymph % (Auto) 35.9 Brown % (Auto) 15.4 H Eos % (Auto) 1.1 Baso % (Auto) 0.9 Neut # (Auto) 4.5 Lymph # (Auto) 3.5 Brown # (Auto) 1.5 H Eos # (Auto) 0.1 Baso # (Auto) 0.1 pCO2 37 pO2 78 L HCO3 27.4 ABG pH 7.47 H ABG Total CO2 28.0 ABG O2 Saturation 99.8 H ABG O2 Content 15.1 ABG Base Excess 3.2 H ABG Hemoglobin 11.3 L ABG Carboxyhemoglobin 2.7 H POC ABG HHb (Measured) 0.2 ABG Methemoglobin 2.3 ABG O2 Capacity 15.1 L Slim Test Yes A-a O2 Difference 25.0 Hgb O2 Saturation 94.8 L FiO2 21.0 Sodium 141 Potassium 3.9 Chloride 107 Carbon Dioxide 26 Anion Gap 12 BUN 14 Creatinine 0.7 L Est GFR ( Amer) > 60 Est GFR (Non-Af Amer) > 60 Random Glucose 99 Calcium 8.6 Troponin I < 0.0120 NT-Pro-B Natriuret Pep 381 Assessment & Plan - Assessment and Plan (Free Text) Assessment: 67 yr old M admitted for acute COPD exacerbation and chest pain with PMHx COPD, NIDDM type 2, HTN, PE s/p IVC filter-2014 (not on anticoagulation), hx of retroperitoneal hematoma (2014) and psoriasis. Acute COPD exacerbation -acute on chronic -Admit to medsurg -CXR: no active disease -Methylprednisolone 60 mg Q8H -Duo-nebs Q4h JEFFREY; Duonebs Q2 PRN for SOB -Azithromycin 250mg PO QD -supplemental O2 via high flow nasal cannula to keep SpO2 >94% Chest pain -Acute, likely due to coughing vs r/o ACS -troponin negative x 1 -EKG: sinus tachycardia -f/u serial troponins NIDDM Type 2 -chronic, uncontrolled -HbA1c 7.3 on 02/07/18 -not on any home medications -POC glucose ACHS -Moderate dose regular insulin coverage scale -low carbohydrate/heart healthy/low sodium diet History of Hypertension -chronic, controlled -not on any home medications -monitor BP Psoriasis -chronic -no treatment -Lac-hydrin 12% lotion TOP TID to legs and arms BID Hx PE -chronic-2014 -has IVC filter DVT Prophylaxis -Lovenox 40mg SC QD - Date & Time Date: 04/01/18 Time: 21:01 <Lida Fernandes - Last Filed: 04/02/18 06:52> Results - Vital Signs Recent Vital Signs: Last Vital Signs Temp 97.7 F 04/02/18 00:06 Pulse 104 H 04/02/18 00:33 Resp 22 04/02/18 05:14 BP 158/89 H 04/02/18 00:06 Pulse Ox 94 L 04/02/18 00:06 - Labs Result Diagrams: 04/01/18 18:10 04/01/18 18:10 Labs: Laboratory Results - last 24 hr 04/01/18 04/01/18 04/01/18 18:07 18:10 18:10 WBC 9.8 RBC 4.15 L Hgb 11.2 L Hct 34.1 L MCV 82.2 MCH 27.1 MCHC 33.0 RDW 19.1 H Plt Count 193 MPV 8.5 Neut % (Auto) 46.7 L Lymph % (Auto) 35.9 Brown % (Auto) 15.4 H Eos % (Auto) 1.1 Baso % (Auto) 0.9 Neut # (Auto) 4.5 Lymph # (Auto) 3.5 Brown # (Auto) 1.5 H Eos # (Auto) 0.1 Baso # (Auto) 0.1 pCO2 37 pO2 78 L HCO3 27.4 ABG pH 7.47 H ABG Total CO2 28.0 ABG O2 Saturation 99.8 H ABG O2 Content 15.1 ABG Base Excess 3.2 H ABG Hemoglobin 11.3 L ABG Carboxyhemoglobin 2.7 H POC ABG HHb (Measured) 0.2 ABG Methemoglobin 2.3 ABG O2 Capacity 15.1 L Slim Test Yes A-a O2 Difference 25.0 Hgb O2 Saturation 94.8 L FiO2 21.0 Sodium 141 Potassium 3.9 Chloride 107 Carbon Dioxide 26 Anion Gap 12 BUN 14 Creatinine 0.7 L Est GFR ( Amer) > 60 Est GFR (Non-Af Amer) > 60 POC Glucose (mg/dL) Random Glucose 99 Calcium 8.6 Troponin I < 0.0120 NT-Pro-B Natriuret Pep 381 Urine Color Urine Clarity Urine pH Ur Specific [place] Urine Protein Urine Glucose (UA) Urine Ketones Urine Blood Urine Nitrate Urine Bilirubin Urine Urobilinogen Ur Leukocyte Esterase Urine RBC (Auto) Urine Microscopic WBC Ur Squamous Epith Cells 04/01/18 04/01/18 04/02/18 22:10 23:22 05:45 WBC RBC Hgb Hct MCV MCH MCHC RDW Plt Count MPV Neut % (Auto) Lymph % (Auto) Brown % (Auto) Eos % (Auto) Baso % (Auto) Neut # (Auto) Lymph # (Auto) Brown # (Auto) Eos # (Auto) Baso # (Auto) pCO2 pO2 HCO3 ABG pH ABG Total CO2 ABG O2 Saturation ABG O2 Content ABG Base Excess ABG Hemoglobin ABG Carboxyhemoglobin POC ABG HHb (Measured) ABG Methemoglobin ABG O2 Capacity Slim Test A-a O2 Difference Hgb O2 Saturation FiO2 Sodium Potassium Chloride Carbon Dioxide Anion Gap BUN Creatinine Est GFR ( Amer) Est GFR (Non-Af Amer) POC Glucose (mg/dL) 207 H 390 H Random Glucose Calcium Troponin I NT-Pro-B Natriuret Pep Urine Color Yellow Urine Clarity Clear Urine pH 5.0 Ur Specific [place] 1.023 Urine Protein 100 Urine Glucose (UA) 150 Urine Ketones Negative Urine Blood Negative Urine Nitrate Negative Urine Bilirubin Negative Urine Urobilinogen 0.2-1.0 Ur Leukocyte Esterase Neg Urine RBC (Auto) 2 Urine Microscopic WBC 1 Ur Squamous Epith Cells < 1 Attending/Attestation - Attestation I have personally seen and examined this patient.: Yes I have fully participated in the care of the patient.: Yes I have reviewed all pertinent clinical information: Yes Notes (Text): 04/02/18 06:51 Seen, examined, discussed with resident Dr. Stephany Steele, agree with findings and plan as above.
[2018-04-01] MEDS ORDERED: Glucagon Recombinant 1 mg Inj IM PRN (21:37)
[2018-04-01] MEDS ORDERED: Dextrose 50% SYRINGE Inj (50 ml) IV PRN (21:37)
[2018-04-01] MEDS ORDERED: levoFLOXacin 500 mg in D5W 500 MG/100 ML BAG IVPB ONE (21:52)
[2018-04-01 23:28] LABS: SQUAMOUS EPITHIAL < 1 /hpf (0-5); URINE BILIRUBIN NEGATIVE (NEGATIVE); URINE BLOOD NEGATIVE (NEGATIVE); URINE CLARITY CLEAR (Clear); URINE COLOR YELLOW (YELLOW); URINE GLUCOSE (UA) 150 mg/dL (Normal); URINE LEUKOCYTE ESTERASE NEG Leu/uL (Negative); URINE PROTEIN 100 mg/dL (NEGATIVE); URINE UROBILINOGEN 0.2-1.0 mg/dL (0.2-1.0)
[2018-04-02] MEDS ORDERED: Albuterol-Ipratrop 3 mg / 0.5 (3 ml) UD INH PRN
[2018-04-02] MEDS: Albuterol-Ipratrop 3 mg / 0.5 (3 ml) UD INH SCH ×8 (00:32→23:59)
[2018-04-02] MEDS ORDERED: levoFLOXacin 500 mg in D5W 500 MG/100 ML BAG IVPB SCH (09:00)
[2018-04-02] MEDS ORDERED: Azithromycin 250 MG in Sodium Chloride 0.9% 250 ML IVPB SCH (09:00)
[2018-04-02] MEDS: Insulin Regular 100 units/ml SC SCH ×4 (09:00→21:23)
[2018-04-02] MEDS: Enoxaparin 40 mg Syringe SC SCH (09:01)
--- NOTE | 2018-04-02 10:55 | CP.PCM.PN ---
<Sultan Dominic - Last Filed: 04/02/18 11:02> Subjective - Date & Time of Evaluation Date of Evaluation: 04/02/18 Time of Evaluation: 10:20 - Subjective Subjective: Patient see and examined this morning. NAD, afebrile. Patient reports shortness of breath improved with high flow oxygen. Denies chest pain, fever, chills, nausea, vomiting, headache or dizziness. Objective - Vital Signs/Intake and Output Vital Signs (last 24 hours): Temp Pulse Resp BP Pulse Ox 97.8 F 111 H 18 153/79 H 99 04/02/18 07:58 04/02/18 07:58 04/02/18 08:00 04/02/18 07:58 04/02/18 07:58 - Medications Medications: Current Medications Acetaminophen (Tylenol 325mg Tab) 650 mg PO Q6 PRN PRN Reason: Pain, moderate (4-7) Albuterol/Ipratropium (Duoneb 3 Mg/0.5 Mg (3 Ml) Ud) 3 ml INH RQ4 [facility] Last Admin: 04/02/18 08:00 Dose: 3 ml Albuterol/Ipratropium (Duoneb 3 Mg/0.5 Mg (3 Ml) Ud) 3 ml INH RQ2 PRN PRN Reason: Shortness of Breath Azithromycin (Zithromax) 250 mg PO DAILY [facility] Last Admin: 04/02/18 09:02 Dose: 250 mg Dextrose (Dextrose 50% Inj) 0 ml IV STAT PRN; Protocol PRN Reason: Hypoglycemia Protocol Dextrose (Glutose 15) 0 gm PO ONCE PRN; Protocol PRN Reason: Hypoglycemia Protocol Enoxaparin Sodium (Lovenox) 40 mg SC DAILY [facility] PRN Reason: Protocol Last Admin: 04/02/18 09:01 Dose: 40 mg Glucagon (Glucagen Diagnostic Kit) 0 mg IM STAT PRN; Protocol PRN Reason: Hypoglycemia Protocol Insulin Human Regular (Humulin R) 0 units SC ACHS [facility] PRN Reason: Protocol Last Admin: 04/02/18 09:00 Dose: 8 units Lactic Acid (Lac-Hydrin 12% Lotion (225 G)) 1 applic TOP TID [facility] Last Admin: 04/02/18 09:01 Dose: 1 applic Methylprednisolone (Solu-Medrol) 60 mg IVP Q8 [facility] Last Admin: 04/02/18 09:10 Dose: 60 mg Montelukast Sodium (Singulair) 10 mg PO HS [facility] - Labs Labs: 04/01/18 18:10 04/01/18 18:10 - Constitutional Appears: Non-toxic, No Acute Distress - Head Exam Head Exam: ATRAUMATIC, NORMAL INSPECTION - Eye Exam Eye Exam: EOMI, Normal appearance - ENT Exam ENT Exam: Mucous Membranes Moist - Neck Exam Neck Exam: Full ROM, Normal Inspection. absent: Meningismus - Respiratory Exam Respiratory Exam: Decreased Breath Sounds (b/l lower lung field with occassional crackles. Mild diffuse expiratory wheezing with prolong expiratory phase.) - Cardiovascular Exam Cardiovascular Exam: REGULAR RHYTHM, RRR, +S1, +S2 - GI/Abdominal Exam GI & Abdominal Exam: Soft, Normal Bowel Sounds. absent: Tenderness - Extremities Exam Extremities Exam: Pedal Edema (non pitting). absent: Calf Tenderness - Back Exam Back Exam: absent: CVA tenderness (L), CVA tenderness (R) - Neurological Exam Neurological Exam: Alert, Awake, Oriented x3 - Psychiatric Exam Psychiatric exam: Normal Affect, Normal Mood - Skin Skin Exam: Dry ( hyperpigmented scaly/dry skin on B/L lower extremitites.) Assessment and Plan - Assessment and Plan (Free Text) Assessment: Assessment: 67 yr old Male with PMHx COPD, NIDDM type 2, HTN, PE s/p IVC filter-2014 (not on anticoagulation), hx of retroperitoneal hematoma (2014) and psoriasis admitted for acute COPD exacerbation and chest pain Acute COPD exacerbation -acute on chronic -CXR: no active disease -Change methylprednisolone to 40 mg Q8H from 60 mg. -Duo-nebs Q4h JEFFREY; Duonebs Q2 PRN for SOB -c/w Azithromycin 250mg PO QD -supplemental O2 via high flow nasal cannula to keep SpO2 >94% Chest pain (resolved) -Acute, likely due to coughing vs r/o ACS -troponin negative x 1 -EKG: sinus tachycardia Dysuria -UA is negative -f/u urine c&s NIDDM Type 2 -chronic, uncontrolled -HbA1c 7.3 on 02/07/18 -not on any home medications -POC glucose ACHS -Moderate dose regular insulin coverage scale -low carbohydrate/heart healthy/low sodium diet History of Hypertension -chronic, controlled -not on any home medications -monitor BP Psoriasis -chronic -no treatment -Lac-hydrin 12% lotion TOP TID to legs and arms BID Hx PE -chronic-2014 -has IVC filter DVT Prophylaxis -Lovenox 40mg SC QD <Muriel Lamas - Last Filed: 04/02/18 14:58> Objective - Vital Signs/Intake and Output Vital Signs (last 24 hours): Temp Pulse Resp BP Pulse Ox 97.8 F 111 H 16 153/79 H 99 04/02/18 07:58 04/02/18 07:58 04/02/18 11:45 04/02/18 07:58 04/02/18 07:58 - Medications Medications: Current Medications Acetaminophen (Tylenol 325mg Tab) 650 mg PO Q6 PRN PRN Reason: Pain, moderate (4-7) Albuterol/Ipratropium (Duoneb 3 Mg/0.5 Mg (3 Ml) Ud) 3 ml INH RQ4 [facility] Last Admin: 04/02/18 11:45 Dose: 3 ml Albuterol/Ipratropium (Duoneb 3 Mg/0.5 Mg (3 Ml) Ud) 3 ml INH RQ2 PRN PRN Reason: Shortness of Breath Azithromycin (Zithromax) 250 mg PO DAILY [facility] Last Admin: 04/02/18 09:02 Dose: 250 mg Dextrose (Dextrose 50% Inj) 0 ml IV STAT PRN; Protocol PRN Reason: Hypoglycemia Protocol Dextrose (Glutose 15) 0 gm PO ONCE PRN; Protocol PRN Reason: Hypoglycemia Protocol Enoxaparin Sodium (Lovenox) 40 mg SC DAILY [facility] PRN Reason: Protocol Last Admin: 04/02/18 09:01 Dose: 40 mg Glucagon (Glucagen Diagnostic Kit) 0 mg IM STAT PRN; Protocol PRN Reason: Hypoglycemia Protocol Insulin Human Regular (Humulin R) 0 units SC ACHS [facility] PRN Reason: Protocol Last Admin: 04/02/18 12:39 Dose: 6 units Lactic Acid (Lac-Hydrin 12% Lotion (225 G)) 1 applic TOP TID [facility] Last Admin: 04/02/18 12:38 Dose: 1 applic Methylprednisolone (Solu-Medrol) 40 mg IVP Q8 [facility] Last Admin: 04/02/18 12:19 Dose: Not Given Montelukast Sodium (Singulair) 10 mg PO HS [facility] - Labs Labs: 04/01/18 18:10 04/01/18 18:10 Attending/Attestation - Attestation I have personally seen and examined this patient.: Yes I have fully participated in the care of the patient.: Yes I have reviewed all pertinent clinical information, including history, physical exam and plan: Yes Notes (Text): DM type II with Hyperglycemia sec to Steroids - start Levemir while in the hospital, restart Metformin
[2018-04-02] MEDS: MethylPREDNISolone 40 mg Vial IVP SCH ×2 (12:19→16:44)
--- NOTE | 2018-04-02 17:33 | CARD ---
APPROVED REPORT Date of service: 04/01/2018 <Conclusion> Sinus tachycardia Otherwise normal ECG
[2018-04-02] MEDS: Insulin Detemir 100 Units/ml Inj SC SCH (21:22)
[2018-04-03] MEDS: MethylPREDNISolone 40 mg Vial IVP SCH ×3 (01:54→21:27)
[2018-04-03] MEDS ORDERED: Insulin Regular 100 units/ml SC ONE (02:47)
--- NOTE | 2018-04-03 03:16 | CP.PCM.PCO ---
Addendum entered and electronically signed by Cody Marcial MD 04/03/18 03:16: Called by RN as patient's Accucheck was noted to be 500+. Saw and evaluated patient at bedside. Patient comfortable, alert and oriented, complaining of mild left groin pain x 3 days. On exam, left inguinal hernia appreciated- non reducible, mildly tender to palpation, no skin changes. Lung exam notable for diffuse wheezing, no rales. Pt coughing intermittently but otherwise breathing comfortably. Pt denies n/v and has been having BM daily. Advised RN to give 4 units Humalin as per protocol and started pt on NS @100cc/hr. Will repeat accucheck in 3 hours. Hyperglycemia likely an effect of steroid tx. Vitals otherwise stable. Encouraged pt to use High Flow O2 consistently as he was removing it. Discussed case with my senior, Dr. Longoria. Cody Marcial, PGY2 Original Note:
[2018-04-03] MEDS: Sodium Chloride 0.9% 1,000 ML IV SCH ×2 (03:29→03:39)
[2018-04-03] MEDS: Albuterol-Ipratrop 3 mg / 0.5 (3 ml) UD INH SCH ×6 (05:04→23:04)
[2018-04-03 06:15] LABS: HEMOGLOBIN 10.5 g/dL (12.0-18.0); MEAN CELL VOLUME 81.9 fl (80.0-94.0); MEAN CORPUSCULAR HEMOGLOBIN 26.9 pg (27.0-31.0); MEAN CORPUSCULAR HGB CONC 32.9 g/dL (33.0-37.0); RBC 3.9 Mil/uL (4.40-5.90); RED CELL DISTRIBUTION WIDTH 19.2 % (11.5-14.5); WHITE BLOOD COUNT 14.9 K/uL (4.8-10.8)
[2018-04-03 06:33] LABS: BLOOD UREA NITROGEN 17 mg/dl (9-20); CALCIUM 8.9 mg/dL (8.4-10.2); GFR NON-AFRICAN AMERICAN > 60
[2018-04-03] MEDS ORDERED: Insulin Detemir 100 Units/ml Inj SC STA (07:54)
--- NOTE | 2018-04-03 08:56 | CP.PCM.PN ---
<Sejal Cardenas - Last Filed: 04/03/18 12:28> Subjective - Date & Time of Evaluation Date of Evaluation: 04/03/18 Time of Evaluation: 08:56 - Subjective Subjective: Patient seen and examined at bedside with Dr. Lamas. He is sitting comfortably eating breakfast. He states that he has pain in his groin area that began on this hospital admission, only tender to palpation. He reports good appetite and states he feels he can breath a bit better. Denies chest pain, shortness of breath, nausea, vomiting, diarrhea, dysuria, frequency and urgency. Objective - Vital Signs/Intake and Output Vital Signs (last 24 hours): Temp Pulse Resp BP Pulse Ox 97.7 F 115 H 18 137/70 97 04/03/18 07:56 04/03/18 07:56 04/03/18 08:31 04/03/18 07:56 04/03/18 07:56 - Medications Medications: Current Medications Acetaminophen (Tylenol 325mg Tab) 650 mg PO Q6 PRN PRN Reason: Pain, moderate (4-7) Albuterol/Ipratropium (Duoneb 3 Mg/0.5 Mg (3 Ml) Ud) 3 ml INH RQ4 [facility] Last Admin: 04/03/18 08:04 Dose: 3 ml Albuterol/Ipratropium (Duoneb 3 Mg/0.5 Mg (3 Ml) Ud) 3 ml INH RQ2 PRN PRN Reason: Shortness of Breath Azithromycin (Zithromax) 250 mg PO DAILY [facility] Last Admin: 04/02/18 09:02 Dose: 250 mg Dextrose (Dextrose 50% Inj) 0 ml IV STAT PRN; Protocol PRN Reason: Hypoglycemia Protocol Dextrose (Glutose 15) 0 gm PO ONCE PRN; Protocol PRN Reason: Hypoglycemia Protocol Enoxaparin Sodium (Lovenox) 40 mg SC DAILY [facility] PRN Reason: Protocol Last Admin: 04/02/18 09:01 Dose: 40 mg Glucagon (Glucagen Diagnostic Kit) 0 mg IM STAT PRN; Protocol PRN Reason: Hypoglycemia Protocol Sodium Chloride (Sodium Chloride 0.9%) 1,000 mls @ 100 mls/hr IV .Q10H [facility] Stop: 04/04/18 03:14 Last Admin: 04/03/18 03:39 Dose: Not Given Insulin Detemir (Levemir) 6 units SC [facility] Last Admin: 04/02/18 21:22 Dose: 6 u Insulin Human Regular (Humulin R) 0 units SC [facility] PRN Reason: Protocol Last Admin: 04/02/18 21:23 Dose: 4 units Lactic Acid (Lac-Hydrin 12% Lotion (225 G)) 1 applic TOP TID [facility] Last Admin: 04/02/18 16:43 Dose: 1 applic Metformin HCl (Glucophage) 1,000 mg PO BIDWM [facility] Methylprednisolone (Solu-Medrol) 40 mg IVP Q12 [facility] Montelukast Sodium (Singulair) 10 mg PO [facility] Last Admin: 04/02/18 21:21 Dose: 10 mg - Labs Labs: 04/03/18 04:38 04/03/18 04:38 - Constitutional Appears: Well, Non-toxic, No Acute Distress - Head Exam Head Exam: NORMAL INSPECTION - Respiratory Exam Respiratory Exam: Decreased Breath Sounds, Wheezes (Minor Expiratory wheeze;), NORMAL BREATHING PATTERN. absent: Respiratory Distress - Cardiovascular Exam Cardiovascular Exam: Tachycardia, REGULAR RHYTHM, +S1, +S2. absent: Gallop, JVD , Rubs, +S4, Murmur - GI/Abdominal Exam GI & Abdominal Exam: Distended, Soft, Normal Bowel Sounds. absent: Firm, Guarding, Tenderness, Pulsatile Mass, Rebound - Exam Exam: absent: Circumcision, NORMAL INSPECTION (non-reducible inguinal hernia present on the left side. Tender to palpation. ), Uretheral Discharge External exam: Swelling (Prominent left scrotal swelling- inguinal hernia. ). absent: Erythema, Lacerations, Lesions - Extremities Exam Extremities Exam: Normal Inspection. absent: Calf Tenderness, Pedal Edema - Neurological Exam Neurological Exam: Alert, Awake - Psychiatric Exam Psychiatric exam: Normal Affect, Normal Mood - Skin Skin Exam: Dry, Intact, Normal Color, Warm Assessment and Plan - Assessment and Plan (Free Text) Assessment: 67 yr old Male with PMHx COPD, NIDDM type 2, HTN, PE s/p IVC filter-2014 (not on anticoagulation), hx of retroperitoneal hematoma (2014) and psoriasis admitted for acute COPD exacerbation and chest pain and found to have non- reducible inguinal hernia on physical exam. Plan: Acute COPD exacerbation -acute on chronic -CXR: no active disease -Change methylprednisolone to 40 mg Q8H to Methylprednisolone 40mg Q12h. -Duo-nebs Q4h JEFFREY; Duonebs Q2 PRN for SOB -c/w Azithromycin 250mg PO QD -High flow NC discontinued. Patient is now on NC 2L. Incarcerated Inguinal hernia - Previous CT abd and pelvis 06/2017 demonstrated small bilateral inguinal hernias (left larger than the right) & contains unobstructed short segment of distal descending colon and mesenteric fat. Testicular U/S at that same time demonstrated a left inguinal hernia. - Surgery recommendations appreciated- Possible OR later today pending CT scan results - F/U CT abd/pelvis with oral contrast - NPO - Analgesics/ anti-emetics PRN - Monitor Bowel function. Chest pain (resolved) -Acute, likely due to coughing vs r/o ACS -troponin negative x 1 -EKG: sinus tachycardia NIDDM Type 2 -chronic, uncontrolled -HbA1c 7.3 on 02/07/18 -not on any home medications -POC glucose ACHS -Moderate dose regular insulin coverage scale -low carbohydrate/heart healthy/low sodium diet - Metformin increased to 1000mg BID with food. - Stat dose of Levemir 6 units given this morning for glucose level of ~320. History of Hypertension -chronic, controlled -not on any home medications -monitor BP Psoriasis -chronic -no treatment -Lac-hydrin 12% lotion TOP TID to legs and arms BID Hx PE -chronic-2014 -has IVC filter DVT Prophylaxis -Lovenox 40mg SC QD <Muriel Lamas - Last Filed: 04/03/18 16:14> Objective - Vital Signs/Intake and Output Vital Signs (last 24 hours): Temp Pulse Resp BP Pulse Ox 97.6 F 115 H 20 152/71 H 100 04/03/18 13:00 04/03/18 13:00 04/03/18 13:00 04/03/18 13:00 04/03/18 13:00 - Medications Medications: Current Medications Acetaminophen (Tylenol 325mg Tab) 650 mg PO Q6 PRN PRN Reason: Pain, moderate (4-7) Albuterol/Ipratropium (Duoneb 3 Mg/0.5 Mg (3 Ml) Ud) 3 ml INH RQ4 [facility] Last Admin: 04/03/18 15:44 Dose: 3 ml Albuterol/Ipratropium (Duoneb 3 Mg/0.5 Mg (3 Ml) Ud) 3 ml INH RQ2 PRN PRN Reason: Shortness of Breath Azithromycin (Zithromax) 250 mg PO DAILY [facility] Last Admin: 04/03/18 09:17 Dose: 250 mg Dextrose (Dextrose 50% Inj) 0 ml IV STAT PRN; Protocol PRN Reason: Hypoglycemia Protocol Dextrose (Glutose 15) 0 gm PO ONCE PRN; Protocol PRN Reason: Hypoglycemia Protocol Enoxaparin Sodium (Lovenox) 40 mg SC DAILY [facility] PRN Reason: Protocol Last Admin: 04/03/18 09:16 Dose: 40 mg Glucagon (Glucagen Diagnostic Kit) 0 mg IM STAT PRN; Protocol PRN Reason: Hypoglycemia Protocol Sodium Chloride (Sodium Chloride 0.9%) 1,000 mls @ 100 mls/hr IV .Q10H [facility] Stop: 04/04/18 03:14 Last Admin: 04/03/18 03:39 Dose: Not Given Insulin Detemir (Levemir) 6 units SC [facility] Last Admin: 04/02/18 21:22 Dose: 6 u Insulin Human Regular (Humulin R) 0 units SC [facility] PRN Reason: Protocol Last Admin: 04/03/18 12:59 Dose: 6 units Lactic Acid (Lac-Hydrin 12% Lotion (225 G)) 1 applic TOP TID [facility] Last Admin: 04/03/18 12:58 Dose: Not Given Metformin HCl (Glucophage) 1,000 mg PO BIDWM [facility] Last Admin: 04/03/18 09:45 Dose: 1,000 mg Methylprednisolone (Solu-Medrol) 40 mg IVP Q12 [facility] Last Admin: 04/03/18 09:16 Dose: 40 mg Montelukast Sodium (Singulair) 10 mg PO HS [facility] Last Admin: 04/02/18 21:21 Dose: 10 mg - Labs Labs: 04/03/18 04:38 04/03/18 04:38 Attending/Attestation - Attestation I have personally seen and examined this patient.: Yes I have fully participated in the care of the patient.: Yes I have reviewed all pertinent clinical information, including history, physical exam and plan: Yes Notes (Text): ? Incarcerated Left Inguinal Hernia - pt complained of left groin pain at site of inguinal area - CT of the Abd/Pelvis: Increase in size of large inguinal area , with more colon, into the hernia defect - Surgery consulted- pt was seen by Dr Parker and he was able to reduce the hernia - will cont to monitor overnight - will plan for outpt Repair of hernia COPD exacerbation, improving - decrease IV Solumedrol to 40 q 12 -O2 changed to nasal cannula at 2 LPM
[2018-04-03] MEDS: Enoxaparin 40 mg Syringe SC SCH (09:16)
[2018-04-03] MEDS: Insulin Regular 100 units/ml SC SCH ×4 (09:19→22:00)
--- NOTE | 2018-04-03 11:23 | CP.PCM.CON ---
<Jonathan Piper - Last Filed: 04/03/18 15:43> History of Present Illness - History of Present Illness History of Present Illness: General Surgery Consult Note for Dr. Parker Reason for consult: Incarcerated Left inguinal hernia 67 M with PMH tht includes COPD, DM, HTN, PE s/p IVC filter and psoriasis presents with Left groin pain and mass. Patient was admitted on 04/01 for COPD exacerbation. Patient was seen and evaluated on the choi. Patient reports that pain began suddenly around 4 AM. Patient reports to having pain in his groin in the past but not this bad. He denies ever having hernia or a bulge in either groin. Patient tried to eat breakfast but experienced an episode of nausea/ vomiting afterwarss. Patient states he has not eaten since. He reports flatus and a normal BM yesterday. He rates pain as moderate to severe. He describes pain as constant and sharp located on left groin without radiation. Movement/ palpation/positions aggravates symptoms while sitting still can alleviate it. Admits to fever/chills, chest pain, SOB. Denies palpitations, diarrhea, incontinence, urinary symptoms, skin changes. PMD: Denies PMH: COPD, DM, HTN, PE s/p IVC filter-2014, history of retroperitoneal hematoma in 2014, psoriasis Meds: As per MAR ALL: NKDA PSH: IVC filter FH: DM Social: former smoker - 30 pack yr history, quit 1 yr ago; former EtOH abuse - last drink in 04/2017; denies illicit drug use; homeless Review of Systems - Review of Systems All systems: reviewed and no additional remarkable complaints except (as per HPI ) Past Patient History - Infectious Disease Hx of Infectious Diseases: None - Tetanus Immunizations Tetanus Immunization: Unknown - Past Medical History & Family History Past Medical History?: Yes - Past Social History Smoking Status: Former Smoker - CARDIAC Hx Congestive Heart Failure: Yes Hx Hypercholesterolemia: Yes Hx Hypertension: Yes - PULMONARY Hx Asthma: Yes Hx Chronic Obstructive Pulmonary Disease (COPD): Yes Hx Pneumonia: Yes Hx Pulmonary Embolism: Yes - NEUROLOGICAL Hx Neurological Disorder: No - HEENT Hx HEENT Problems: No - RENAL Hx Chronic Kidney Disease: No - ENDOCRINE/METABOLIC Hx Endocrine Disorders: Yes Hx Diabetes Mellitus Type 2: Yes - HEMATOLOGICAL/ONCOLOGICAL Hx Human Immunodeficiency Virus (HIV): No - INTEGUMENTARY Hx Dermatological Problems: Yes (GENERALIZED SKIN PSORIASIS) - MUSCULOSKELETAL/RHEUMATOLOGICAL Hx Falls: No - GASTROINTESTINAL Hx Gastrointestinal Disorders: Yes Other/Comment: GI bleeding - GENITOURINARY/GYNECOLOGICAL Hx Genitourinary Disorders: No - PSYCHIATRIC Hx Substance Use: No - SURGICAL HISTORY Hx Surgeries: Yes Other/Comment: IVC Filter - ANESTHESIA Hx Anesthesia: Yes Hx Anesthesia Reactions: No Hx Malignant Hyperthermia: No Meds Allergies/Adverse Reactions: Allergies Allergy/AdvReac Type Severity Reaction Status Date / Time No Known Allergies Allergy Verified 04/01/18 16:38 - Medications Medications: Current Medications Acetaminophen (Tylenol 325mg Tab) 650 mg PO Q6 PRN PRN Reason: Pain, moderate (4-7) Albuterol/Ipratropium (Duoneb 3 Mg/0.5 Mg (3 Ml) Ud) 3 ml INH RQ4 [facility] Last Admin: 04/03/18 08:04 Dose: 3 ml Albuterol/Ipratropium (Duoneb 3 Mg/0.5 Mg (3 Ml) Ud) 3 ml INH RQ2 PRN PRN Reason: Shortness of Breath Azithromycin (Zithromax) 250 mg PO DAILY [facility] Last Admin: 04/03/18 09:17 Dose: 250 mg Dextrose (Dextrose 50% Inj) 0 ml IV STAT PRN; Protocol PRN Reason: Hypoglycemia Protocol Dextrose (Glutose 15) 0 gm PO ONCE PRN; Protocol PRN Reason: Hypoglycemia Protocol Enoxaparin Sodium (Lovenox) 40 mg SC DAILY [facility] PRN Reason: Protocol Last Admin: 04/03/18 09:16 Dose: 40 mg Glucagon (Glucagen Diagnostic Kit) 0 mg IM STAT PRN; Protocol PRN Reason: Hypoglycemia Protocol Sodium Chloride (Sodium Chloride 0.9%) 1,000 mls @ 100 mls/hr IV .Q10H [facility] Stop: 04/04/18 03:14 Last Admin: 04/03/18 03:39 Dose: Not Given Insulin Detemir (Levemir) 6 units SC HS [facility] Last Admin: 04/02/18 21:22 Dose: 6 u Insulin Human Regular (Humulin R) 0 units SC ACHS [facility] PRN Reason: Protocol Last Admin: 04/03/18 09:19 Dose: 6 units Lactic Acid (Lac-Hydrin 12% Lotion (225 G)) 1 applic TOP TID [facility] Last Admin: 04/03/18 09:15 Dose: 1 applic Metformin HCl (Glucophage) 1,000 mg PO BIDWM [facility] Last Admin: 04/03/18 09:45 Dose: 1,000 mg Methylprednisolone (Solu-Medrol) 40 mg IVP Q12 [facility] Last Admin: 04/03/18 09:16 Dose: 40 mg Montelukast Sodium (Singulair) 10 mg PO HS [facility] Last Admin: 04/02/18 21:21 Dose: 10 mg Physical Exam - Constitutional Appears: No Acute Distress - Head Exam Head Exam: ATRAUMATIC, NORMOCEPHALIC - Eye Exam Eye Exam: EOMI, Normal appearance Pupil Exam: PERRL - ENT Exam ENT Exam: Mucous Membranes Moist - Neck Exam Neck exam: Positive for: Normal Inspection - Respiratory Exam Respiratory Exam: NORMAL BREATHING PATTERN - Cardiovascular Exam Cardiovascular Exam: Tachycardia (115bpm), REGULAR RHYTHM - GI/Abdominal Exam GI & Abdominal Exam: Hernia (L inguinal hernia; non-reducible), Soft, Tenderness (left groin). absent: Distended, Firm, Guarding, Rebound, Rigid - Exam Additional comments: Left side of scrotum enlarged with bulge from inguinal hernia, TTP - Extremities Exam Extremities exam: Positive for: normal capillary refill Additional comments: L groin tenderness with bulge into Left scrotum; no bruising or skin changes noted - Back Exam Back exam: absent: CVA tenderness (L), CVA tenderness (R) - Neurological Exam Neurological exam: Alert, Normal Gait, Oriented x3 - Psychiatric Exam Psychiatric exam: Normal Affect, Normal Mood - Skin Skin Exam: Dry, Intact, Normal Color, Warm Results - Vital Signs Recent Vital Signs: Last Vital Signs Temp 97.7 F 04/03/18 07:56 Pulse 115 H 04/03/18 07:56 Resp 18 04/03/18 08:31 BP 137/70 04/03/18 07:56 Pulse Ox 97 04/03/18 07:56 - Labs Result Diagrams: 04/03/18 04:38 04/03/18 04:38 Labs: Laboratory Results - last 24 hr 04/02/18 04/02/18 04/03/18 15:47 21:21 02:29 WBC RBC Hgb Hct MCV MCH MCHC RDW Plt Count Sodium Potassium Chloride Carbon Dioxide Anion Gap BUN Creatinine Est GFR ( Amer) Est GFR (Non-Af Amer) POC Glucose (mg/dL) 299 H 450 H* > 500 H* Random Glucose Calcium Prostate Specific Ag 04/03/18 04/03/18 04/03/18 04:38 04:38 06:56 WBC 14.9 H D RBC 3.90 L Hgb 10.5 L Hct 31.9 L MCV 81.9 MCH 26.9 L MCHC 32.9 L RDW 19.2 H Plt Count 201 Sodium 141 Potassium 4.2 Chloride 106 Carbon Dioxide 27 Anion Gap 12 BUN 17 Creatinine 0.9 Est GFR ( Amer) > 60 Est GFR (Non-Af Amer) > 60 POC Glucose (mg/dL) 321 H Random Glucose 462 H* D Calcium 8.9 Prostate Specific Ag 0.638 04/03/18 11:08 WBC RBC Hgb Hct MCV MCH MCHC RDW Plt Count Sodium Potassium Chloride Carbon Dioxide Anion Gap BUN Creatinine Est GFR ( Amer) Est GFR (Non-Af Amer) POC Glucose (mg/dL) 310 H Random Glucose Calcium Prostate Specific Ag Assessment & Plan - Assessment and Plan (Free Text) Assessment: 67 M who presents with incarcerated Left inguinal hernia Plan: -NPO -Monitor for bowel function -Serial abdominal exams -Analgesics/anti-emetics PRN -f/u CT abd/pelvis with oral contrast -Hernia was reduced at bedsid hilario Dr. Parker -No surgical interventin needed at this time -Will plan for elective surgery after resolution of COPD exacerbation -Discussed with Dr. Elena Piper PGY2 - Date & Time Date: 04/03/18 Time: 11:40 <Bradley Parker - Last Filed: 04/03/18 16:04> History of Present Illness - History of Present Illness History of Present Illness: Patient was seen and examined at the bedside. Agree with resident's note above. Meds - Medications Medications: Current Medications Acetaminophen (Tylenol 325mg Tab) 650 mg PO Q6 PRN PRN Reason: Pain, moderate (4-7) Albuterol/Ipratropium (Duoneb 3 Mg/0.5 Mg (3 Ml) Ud) 3 ml INH RQ4 [facility] Last Admin: 04/03/18 15:44 Dose: 3 ml Albuterol/Ipratropium (Duoneb 3 Mg/0.5 Mg (3 Ml) Ud) 3 ml INH RQ2 PRN PRN Reason: Shortness of Breath Azithromycin (Zithromax) 250 mg PO DAILY [facility] Last Admin: 04/03/18 09:17 Dose: 250 mg Dextrose (Dextrose 50% Inj) 0 ml IV STAT PRN; Protocol PRN Reason: Hypoglycemia Protocol Dextrose (Glutose 15) 0 gm PO ONCE PRN; Protocol PRN Reason: Hypoglycemia Protocol Enoxaparin Sodium (Lovenox) 40 mg SC DAILY [facility] PRN Reason: Protocol Last Admin: 04/03/18 09:16 Dose: 40 mg Glucagon (Glucagen Diagnostic Kit) 0 mg IM STAT PRN; Protocol PRN Reason: Hypoglycemia Protocol Sodium Chloride (Sodium Chloride 0.9%) 1,000 mls @ 100 mls/hr IV .Q10H [facility] Stop: 04/04/18 03:14 Last Admin: 04/03/18 03:39 Dose: Not Given Insulin Detemir (Levemir) 6 units SC [facility] Last Admin: 04/02/18 21:22 Dose: 6 u Insulin Human Regular (Humulin R) 0 units SC [facility] PRN Reason: Protocol Last Admin: 04/03/18 12:59 Dose: 6 units Lactic Acid (Lac-Hydrin 12% Lotion (225 G)) 1 applic TOP TID [facility] Last Admin: 04/03/18 12:58 Dose: Not Given Metformin HCl (Glucophage) 1,000 mg PO BIDWM [facility] Last Admin: 04/03/18 09:45 Dose: 1,000 mg Methylprednisolone (Solu-Medrol) 40 mg IVP Q12 [facility] Last Admin: 04/03/18 09:16 Dose: 40 mg Montelukast Sodium (Singulair) 10 mg PO [facility] Last Admin: 04/02/18 21:21 Dose: 10 mg Physical Exam - GI/Abdominal Exam Additional comments: soft, mildly tender over left inguinal region, ND, BS+, no rebound, no guarding , reducible left inguinal hernia Results - Vital Signs Recent Vital Signs: Last Vital Signs Temp 97.6 F 04/03/18 13:00 Pulse 115 H 04/03/18 13:00 Resp 20 04/03/18 13:00 BP 152/71 H 04/03/18 13:00 Pulse Ox 100 04/03/18 13:00 - Labs Result Diagrams: 04/03/18 04:38 09/16/18 04:38 Labs: Laboratory Results - last 24 hr 04/02/18 04/03/18 04/03/18 21:21 02:29 04:38 WBC 14.9 H D RBC 3.90 L Hgb 10.5 L Hct 31.9 L MCV 81.9 MCH 26.9 L MCHC 32.9 L RDW 19.2 H Plt Count 201 Sodium Potassium Chloride Carbon Dioxide Anion Gap BUN Creatinine Est GFR ( Amer) Est GFR (Non-Af Amer) POC Glucose (mg/dL) 450 H* > 500 H* Random Glucose Calcium Prostate Specific Ag 04/03/18 04/03/18 04/03/18 04:38 06:56 11:08 WBC RBC Hgb Hct MCV MCH MCHC RDW Plt Count Sodium 141 Potassium 4.2 Chloride 106 Carbon Dioxide 27 Anion Gap 12 BUN 17 Creatinine 0.9 Est GFR ( Amer) > 60 Est GFR (Non-Af Amer) > 60 POC Glucose (mg/dL) 321 H 310 H Random Glucose 462 H* D Calcium 8.9 Prostate Specific Ag 0.638 - Imaging and Cardiology CT scan - abdomen Status: Image reviewed by me, Report reviewed by me Assessment & Plan - Assessment and Plan (Free Text) Assessment: 67 y.o. male with reducible left inguinal hernia Plan: - Start diet - No general surgery intervention at present time secondary to hernia being reduced - Patient will require left inguinal hernia repair on the elective bases once his COPD exacerbation improves - Will follow
[2018-04-03] MEDS ORDERED: Iohexol 240 (50 ml) PO ONE (11:44)
--- NOTE | 2018-04-03 15:16 | CT ---
Date of service: 04/03/2018 PROCEDURE: CT Abdomen and Pelvis with Oral contrast. HISTORY: incarcerated left inguinal hernia COMPARISON: 06/28/2017 TECHNIQUE: Contiguous axial images of the abdomen and pelvis. Oral contrast was administered. No IV contrast given. Coronal and Sagittal reformats generated. Radiation dose: Total exam DLP = 842 mGy-cm. This CT exam was performed using one or more of the following dose reduction techniques: Automated exposure control, adjustment of the mA and/or kV according to patient size, and/or use of iterative reconstruction technique. FINDINGS: LOWER THORAX: Mild chronic interstitial changes and scarring are seen at the lung bases. Mild left and right subtle pleural thickening is not excluded. No definite effusion is seen. Pulmonary arteries are prominent suggesting pulmonary artery hypertension. No pericardial effusion is noted although the heart is enlarged. LIVER: Noncontrast images of the liver show no evidence of new focal liver mass or intrahepatic ductal dilatation. GALLBLADDER AND BILE DUCTS: Unremarkable. PANCREAS: Unremarkable. No mass. No ductal dilatation. SPLEEN: Unremarkable. No splenomegaly. ADRENALS: Unremarkable. KIDNEYS AND URETERS: Kidney show no evidence of hydronephrosis, perinephric change, or calculus. Caval filter is identified in the infrarenal portion of the IVC and in adequate position. BLADDER: Grossly unremarkable. REPRODUCTIVE: Unremarkable. APPENDIX: No right lower quadrant inflammatory process is appreciated. BOWEL: There is interval increase in previously noted left inguinal hernia with increased left colon extending into the hernia and into the superior aspect of the left hemiscrotum. No appreciable bowel wall thickening or bowel obstruction is seen seen. Stable small fat containing right inguinal hernia and fat containing umbilical hernia. No colonic wall thickening is seen. No small bowel obstruction is noted. Moderate residual fecal debris noted in the colon. Visualized distal esophagus and stomach are unchanged as well as the duodenum. PERITONEUM: No ascites seen. No free air noted. LYMPH NODES: Unremarkable. No enlarged lymph nodes. VASCULATURE: Unchanged. BONES: No fracture or destructive lesion. OTHER FINDINGS: None. IMPRESSION: Interval increase of large left inguinal hernia with increased left colon and sigmoid colon extending into the hernia defect and superior left hemiscrotum. No appreciable bowel wall ischemia or bowel wall thickening noted. No free air seen. No bowel obstruction.
[2018-04-03] MEDS: Insulin Detemir 100 Units/ml Inj SC SCH (21:34)
[2018-04-04] MEDS: Albuterol-Ipratrop 3 mg / 0.5 (3 ml) UD INH SCH ×7 (04:56→23:23)
[2018-04-04 06:29] LABS: HEMOGLOBIN 10.4 g/dL (12.0-18.0); MEAN CELL VOLUME 80.6 fl (80.0-94.0); MEAN CORPUSCULAR HGB CONC 33.5 g/dL (33.0-37.0); RBC 3.88 Mil/uL (4.40-5.90); WHITE BLOOD COUNT 14.9 K/uL (4.8-10.8)
[2018-04-04 06:46] LABS: BLOOD UREA NITROGEN 20 mg/dl (9-20); GFR NON-AFRICAN AMERICAN > 60
--- NOTE | 2018-04-04 07:34 | CP.PCM.PN ---
Addendum entered and electronically signed by Sejal Cardenas MD 10:51: Lovenox Held for now and patient is NPO for possible OR for inguinal hernia. Original Note: <Sejal Cardenas - Last Filed: 04/04/18 09:53> Subjective - Date & Time of Evaluation Date of Evaluation: 04/04/18 Time of Evaluation: 07:34 - Subjective Subjective: Patient seen and examined at bedside with Dr. Lamas. He is sitting comfortably in his chair eating oatmeal. He states he has good appetite and reports BM yesterday, soft and formed. He states that the surgeon came yesterday and put the hernia "back into his body". He reports that it came back out and it hurts him when he touches the surrounding area. Denies testicular pain, urethral discharge, fevers, chills, chest pain, shortness of breath, abdominal pain, dysuria, frequency and urgency. Patient is at Moderate to high risk for surgery due to COPD and previous history of P.E, can proceed with surgery. Patient understands the risks. Last intake of food: 7:30 a.m. - 2 spoons of oatmeal. Objective - Vital Signs/Intake and Output Vital Signs (last 24 hours): Temp Pulse Resp BP Pulse Ox 97.8 F 116 H 20 126/63 98 04/04/18 05:00 04/04/18 05:00 04/04/18 05:00 04/04/18 05:00 04/04/18 05:00 Intake and Output: 04/04/18 04/04/18 06:59 18:59 Intake Total 30 Balance 30 - Medications Medications: Current Medications Acetaminophen (Tylenol 325mg Tab) 650 mg PO Q6 PRN PRN Reason: Pain, moderate (4-7) Albuterol/Ipratropium (Duoneb 3 Mg/0.5 Mg (3 Ml) Ud) 3 ml INH RQ4 [facility] Last Admin: 04/04/18 04:56 Dose: 3 ml Albuterol/Ipratropium (Duoneb 3 Mg/0.5 Mg (3 Ml) Ud) 3 ml INH RQ2 PRN PRN Reason: Shortness of Breath Azithromycin (Zithromax) 250 mg PO DAILY [facility] Last Admin: 04/03/18 09:17 Dose: 250 mg Dextrose (Dextrose 50% Inj) 0 ml IV STAT PRN; Protocol PRN Reason: Hypoglycemia Protocol Dextrose (Glutose 15) 0 gm PO ONCE PRN; Protocol PRN Reason: Hypoglycemia Protocol Enoxaparin Sodium (Lovenox) 40 mg SC DAILY [facility] PRN Reason: Protocol Last Admin: 04/03/18 09:16 Dose: 40 mg Glucagon (Glucagen Diagnostic Kit) 0 mg IM STAT PRN; Protocol PRN Reason: Hypoglycemia Protocol Insulin Detemir (Levemir) 6 units SC [facility] Last Admin: 04/03/18 21:34 Dose: 6 u Insulin Human Regular (Humulin R) 0 units SC ACHS [facility] PRN Reason: Protocol Last Admin: 04/03/18 22:00 Dose: Not Given Lactic Acid (Lac-Hydrin 12% Lotion (225 G)) 1 applic TOP TID [facility] Last Admin: 04/03/18 12:58 Dose: Not Given Metformin HCl (Glucophage) 1,000 mg PO BIDWM [facility] Last Admin: 04/03/18 16:35 Dose: 1,000 mg Methylprednisolone (Solu-Medrol) 40 mg IVP Q12 [facility] Last Admin: 04/03/18 21:27 Dose: 40 mg Montelukast Sodium (Singulair) 10 mg PO HS [facility] Last Admin: 04/03/18 21:33 Dose: 10 mg Saccharomyces Boulardii (Florastor) 250 mg PO BID [facility] - Labs Labs: 04/04/18 06:05 04/04/18 06:05 - Constitutional Appears: Well, Non-toxic, No Acute Distress - Respiratory Exam Respiratory Exam: Decreased Breath Sounds, Wheezes (Expiratory wheezes globally) . absent: Chest Wall Tenderness, Prolonged Expiratory Phase, Rales, Rhonchi, Respiratory Distress, Stridor - Cardiovascular Exam Cardiovascular Exam: Tachycardia, REGULAR RHYTHM, +S1, +S2. absent: Gallop, JVD , Rubs, Murmur - GI/Abdominal Exam GI & Abdominal Exam: Distended, Soft, Normal Bowel Sounds. absent: Guarding, Rigid, Tenderness, Rebound - Exam Exam: Scrotal Swelling (Non-reducible inguinal hernia on the left side. Tender to palpation. ). absent: Circumcision, Uretheral Discharge External exam: NORMAL EXTERNAL EXAM, Swelling. absent: Ecchymosis, Erythema, Lacerations, Lesions - Extremities Exam Additional comments: bilateral psoriasis present on both arms and legs. - Neurological Exam Neurological Exam: Alert, Awake - Psychiatric Exam Psychiatric exam: Normal Affect, Normal Mood - Skin Skin Exam: Dry, Intact, Normal Color, Warm Assessment and Plan - Assessment and Plan (Free Text) Assessment: 67 yr old Male with PMHx COPD, NIDDM type 2, HTN, PE s/p IVC filter-2014 (not on anticoagulation), hx of retroperitoneal hematoma (2014) and psoriasis admitted for acute COPD exacerbation and chest pain and found to have non- reducible inguinal hernia on physical exam. Plan: Acute COPD exacerbation -acute on chronic -CXR: no active disease -Change methylprednisolone to 40 mg Q8H to Methylprednisolone 40mg Q12h. -Duo-nebs Q3h [facility]; Duonebs Q2 PRN for SOB -c/w Azithromycin 250mg PO QD -Patient is now on NC 2L. Saturates 99% on RA. Incarcerated Inguinal hernia - Patient at moderate to high risk for surgery due to COPD and previous history of PE, can proceed to surgery. Patient was made aware of risks but still wants the surgery to be performed. - Previous CT abd and pelvis 04/04: demonstrates large left inguinal hernia with increased left colon and sigmoid colon extending into hernia defect. No bowel ischemia. - Surgery recommendations appreciated- scheduled for surgery today, 04/04 - NPO - Analgesics/ anti-emetics PRN - Monitor Bowel function. Chest pain (resolved) -Acute, likely due to coughing vs r/o ACS -troponin negative x 1 -EKG: sinus tachycardia - ECHO 11/2017: Mild -moderate Mitral regurgitation. Echogenic body attached to the aortic valve- unchanged from previous study 04/2017. NIDDM Type 2 -chronic, uncontrolled -HbA1c 7.3 on 02/07/18 -not on any home medications -POC glucose ACHS -Moderate dose regular insulin coverage scale -low carbohydrate/heart healthy/low sodium diet - Metformin increased to 1000mg BID with food. History of Hypertension -chronic, controlled -not on any home medications -monitor BP Psoriasis -chronic -Lac-hydrin 12% lotion TOP TID to legs and arms BID Hx PE -chronic-2014 -has IVC filter DVT Prophylaxis -Lovenox 40mg SC QD <Muriel Lamas - Last Filed: 09/17/18 18:37> Objective - Vital Signs/Intake and Output Vital Signs (last 24 hours): Temp Pulse Resp BP Pulse Ox 98 F 111 H 18 147/75 94 L 04/04/18 16:27 04/04/18 16:27 04/04/18 16:27 04/04/18 16:27 04/04/18 16:27 Intake and Output: 04/04/18 04/04/18 06:59 18:59 Intake Total 30 Balance 30 - Medications Medications: Current Medications Acetaminophen (Tylenol 325mg Tab) 650 mg PO Q6 PRN PRN Reason: Pain, moderate (4-7) Albuterol/Ipratropium (Duoneb 3 Mg/0.5 Mg (3 Ml) Ud) 3 ml INH RQ2 PRN PRN Reason: Shortness of Breath Albuterol/Ipratropium (Duoneb 3 Mg/0.5 Mg (3 Ml) Ud) 3 ml INH RQ3 [facility] Last Admin: 04/04/18 13:26 Dose: 3 ml Azithromycin (Zithromax) 250 mg PO DAILY [facility] Last Admin: 04/04/18 09:27 Dose: Not Given Dextrose (Dextrose 50% Inj) 0 ml IV STAT PRN; Protocol PRN Reason: Hypoglycemia Protocol Dextrose (Glutose 15) 0 gm PO ONCE PRN; Protocol PRN Reason: Hypoglycemia Protocol Enoxaparin Sodium (Lovenox) 40 mg SC DAILY [facility] PRN Reason: Protocol Last Admin: 04/04/18 08:06 Dose: Not Given Glucagon (Glucagen Diagnostic Kit) 0 mg IM STAT PRN; Protocol PRN Reason: Hypoglycemia Protocol Sodium Chloride (Sodium Chloride 0.9%) 1,000 mls @ 100 mls/hr IV .Q10H [facility] Stop: 04/05/18 10:42 Last Admin: 04/04/18 11:12 Dose: 100 mls/hr Insulin Detemir (Levemir) 8 units SC HS [facility] Insulin Human Regular (Humulin R) 0 units SC ACHS [facility] PRN Reason: Protocol Last Admin: 04/04/18 17:11 Dose: 10 units Lactic Acid (Lac-Hydrin 12% Lotion (225 G)) 1 applic TOP TID [facility] Last Admin: 04/04/18 17:12 Dose: 1 applic Metformin HCl (Glucophage) 1,000 mg PO BIDWM [facility] Last Admin: 04/04/18 17:11 Dose: 1,000 mg Methylprednisolone (Solu-Medrol) 40 mg IVP Q12 [facility] Last Admin: 04/04/18 09:30 Dose: 40 mg Metoprolol Tartrate (Lopressor) 12.5 mg PO Q12 [facility] Montelukast Sodium (Singulair) 10 mg PO HS [facility] Last Admin: 04/03/18 21:33 Dose: 10 mg Saccharomyces Boulardii (Florastor) 250 mg PO BID [facility] Last Admin: 04/04/18 17:11 Dose: 250 mg - Labs Labs: 04/04/18 06:05 04/04/18 06:05 Attending/Attestation - Attestation I have personally seen and examined this patient.: Yes I have fully participated in the care of the patient.: Yes I have reviewed all pertinent clinical information, including history, physical exam and plan: Yes Notes (Text): Incarcerated Hernia - Dr Parker was able to reduce hernia yesterday however today bowel loops again went into the inguinal hernia. - Plan was for surgery to repair hernia however due to pt's poor resp condition, Surgical team would like pt to be optimized , recommended Pulmonary evaluation - Dr Parker again was able to reduce the hernia and plan is for Surgery in am - Dr Baker consulted for further Pulmonary mgt -optimization for surgery - DR Gorman consulted for pre op cardiac eval - Pt is mod to high surgical risk for any surgery due to his co morbidities - hx of severe COPD, hx of PE - NPO from [place] - Hold Metformin and Lovenox - cont IV Solumedrol, RTC Duoneb
[2018-04-04] MEDS: Enoxaparin 40 mg Syringe SC SCH (08:06)
[2018-04-04] MEDS: Saccharomyces Boulardi 250 mg Cap PO SCH ×2 (08:25→17:11)
--- NOTE | 2018-04-04 08:26 | CP.PCM.PN ---
<Toney Louis - Last Filed: 04/04/18 08:19> Subjective - Date & Time of Evaluation Date of Evaluation: 04/04/18 Time of Evaluation: 06:50 - Subjective Subjective: General Surgery Pt seen and examined. Pt reports hernia came back out some overnight causing some pain but not as bad as before. Partially reduced at bedside. Afebrile. No other complaints at this time. Objective - Vital Signs/Intake and Output Vital Signs (last 24 hours): Temp Pulse Resp BP Pulse Ox 97.8 F 116 H 20 126/63 98 04/04/18 05:00 04/04/18 05:00 04/04/18 05:00 04/04/18 05:00 04/04/18 05:00 Intake and Output: 04/04/18 04/04/18 06:59 18:59 Intake Total 30 Balance 30 - Medications Medications: Current Medications Acetaminophen (Tylenol 325mg Tab) 650 mg PO Q6 PRN PRN Reason: Pain, moderate (4-7) Albuterol/Ipratropium (Duoneb 3 Mg/0.5 Mg (3 Ml) Ud) 3 ml INH RQ4 [facility] Last Admin: 04/04/18 08:13 Dose: 3 ml Albuterol/Ipratropium (Duoneb 3 Mg/0.5 Mg (3 Ml) Ud) 3 ml INH RQ2 PRN PRN Reason: Shortness of Breath Azithromycin (Zithromax) 250 mg PO DAILY [facility] Last Admin: 04/03/18 09:17 Dose: 250 mg Dextrose (Dextrose 50% Inj) 0 ml IV STAT PRN; Protocol PRN Reason: Hypoglycemia Protocol Dextrose (Glutose 15) 0 gm PO ONCE PRN; Protocol PRN Reason: Hypoglycemia Protocol Enoxaparin Sodium (Lovenox) 40 mg SC DAILY [facility] PRN Reason: Protocol Last Admin: 04/04/18 08:06 Dose: Not Given Glucagon (Glucagen Diagnostic Kit) 0 mg IM STAT PRN; Protocol PRN Reason: Hypoglycemia Protocol Insulin Detemir (Levemir) 6 units SC HS [facility] Last Admin: 04/03/18 21:34 Dose: 6 u Insulin Human Regular (Humulin R) 0 units SC ACHS [facility] PRN Reason: Protocol Last Admin: 04/03/18 22:00 Dose: Not Given Lactic Acid (Lac-Hydrin 12% Lotion (225 G)) 1 applic TOP TID [facility] Last Admin: 04/03/18 12:58 Dose: Not Given Metformin HCl (Glucophage) 1,000 mg PO BIDWM [facility] Last Admin: 04/03/18 16:35 Dose: 1,000 mg Methylprednisolone (Solu-Medrol) 40 mg IVP Q12 [facility] Last Admin: 04/03/18 21:27 Dose: 40 mg Montelukast Sodium (Singulair) 10 mg PO HS [facility] Last Admin: 04/03/18 21:33 Dose: 10 mg Saccharomyces Boulardii (Florastor) 250 mg PO BID [facility] - Labs Labs: 04/04/18 06:05 04/04/18 06:05 - Constitutional Appears: Non-toxic, No Acute Distress - Head Exam Head Exam: ATRAUMATIC, NORMOCEPHALIC - Eye Exam Eye Exam: EOMI. absent: Scleral icterus - Respiratory Exam Respiratory Exam: NORMAL BREATHING PATTERN. absent: Respiratory Distress - Cardiovascular Exam Cardiovascular Exam: RRR, +S1, +S2 - GI/Abdominal Exam GI & Abdominal Exam: Soft, Hernia (L inguinal). absent: Distended, Firm, Guarding, Rigid, Tenderness, Rebound - Neurological Exam Neurological Exam: Alert, Awake, Oriented x3 - Skin Skin Exam: Dry, Warm Assessment and Plan - Assessment and Plan (Free Text) Assessment: 67M with partially reducible left inguinal hernia Plan: NPO for now Hold Lovenox Apply ice pack to L inguinal area Possible OR if hernia keeps recurring/becomes irreducible D/W Dr. Elena Louis PGY4 <Bradley Parker - Last Filed: 04/04/18 16:58> Subjective - Date & Time of Evaluation Time of Evaluation: 14:00 - Subjective Subjective: Patient was seen and examined at the bedside. Agree with resident's note above. I have fully reduced the hernia at the bedside. Objective - Vital Signs/Intake and Output Vital Signs (last 24 hours): Temp Pulse Resp BP Pulse Ox 98 F 111 H 18 147/75 94 L 04/04/18 16:27 04/04/18 16:27 04/04/18 16:27 04/04/18 16:27 04/04/18 16:27 Intake and Output: 04/04/18 04/04/18 06:59 18:59 Intake Total 30 Balance 30 - Medications Medications: Current Medications Acetaminophen (Tylenol 325mg Tab) 650 mg PO Q6 PRN PRN Reason: Pain, moderate (4-7) Albuterol/Ipratropium (Duoneb 3 Mg/0.5 Mg (3 Ml) Ud) 3 ml INH RQ2 PRN PRN Reason: Shortness of Breath Albuterol/Ipratropium (Duoneb 3 Mg/0.5 Mg (3 Ml) Ud) 3 ml INH RQ3 [facility] Last Admin: 04/04/18 13:26 Dose: 3 ml Azithromycin (Zithromax) 250 mg PO DAILY [facility] Last Admin: 04/04/18 09:27 Dose: Not Given Dextrose (Dextrose 50% Inj) 0 ml IV STAT PRN; Protocol PRN Reason: Hypoglycemia Protocol Dextrose (Glutose 15) 0 gm PO ONCE PRN; Protocol PRN Reason: Hypoglycemia Protocol Enoxaparin Sodium (Lovenox) 40 mg SC DAILY [facility] PRN Reason: Protocol Last Admin: 04/04/18 08:06 Dose: Not Given Glucagon (Glucagen Diagnostic Kit) 0 mg IM STAT PRN; Protocol PRN Reason: Hypoglycemia Protocol Sodium Chloride (Sodium Chloride 0.9%) 1,000 mls @ 100 mls/hr IV .Q10H [facility] Stop: 04/05/18 10:42 Last Admin: 04/04/18 11:12 Dose: 100 mls/hr Insulin Detemir (Levemir) 6 units SC [facility] Last Admin: 04/03/18 21:34 Dose: 6 u Insulin Human Regular (Humulin R) 0 units SC ACHS [facility] PRN Reason: Protocol Last Admin: 04/04/18 12:26 Dose: Not Given Lactic Acid (Lac-Hydrin 12% Lotion (225 G)) 1 applic TOP TID [facility] Last Admin: 04/04/18 12:29 Dose: 1 applic Metformin HCl (Glucophage) 1,000 mg PO BIDWM [facility] Last Admin: 04/04/18 08:26 Dose: Not Given Methylprednisolone (Solu-Medrol) 40 mg IVP Q12 [facility] Last Admin: 04/04/18 09:30 Dose: 40 mg Metoprolol Tartrate (Lopressor) 12.5 mg PO Q12 [facility] Montelukast Sodium (Singulair) 10 mg PO HS [facility] Last Admin: 04/03/18 21:33 Dose: 10 mg Saccharomyces Boulardii (Florastor) 250 mg PO BID [facility] Last Admin: 04/04/18 08:25 Dose: Not Given - Labs Labs: 04/04/18 06:05 04/04/18 06:05 Assessment and Plan - Assessment and Plan (Free Text) Plan: - NPO after midnight - pulmonary clearance - Plan for hernia repair tomorrow - Will follow
[2018-04-04] MEDS: Insulin Regular 100 units/ml SC SCH ×4 (08:29→21:20)
[2018-04-04] MEDS: MethylPREDNISolone 40 mg Vial IVP SCH ×2 (09:30→21:11)
[2018-04-04] MEDS: Sodium Chloride 0.9% 1,000 ML IV SCH (11:12)
--- NOTE | 2018-04-04 16:05 | CP.PCM.CON ---
History of Present Illness - History of Present Illness History of Present Illness: 67 y/o male c/o chest tightness x many months. pt states it decreases with nebulizer treatment. does not increase with ambulation. no radiation to shoulder or neck. tightness is substernal. pt with chronic chough and wheeze. pt scheduled for hernia repair in am. trop x 1 is negative. echo in november revealed normal ef and nml wall motion. Review of Systems - Review of Systems Systems not reviewed;Unavailable: Respiratory Distress Past Patient History - Infectious Disease Hx of Infectious Diseases: None - Tetanus Immunizations Tetanus Immunization: Unknown - Past Medical History & Family History Past Medical History?: Yes - Past Social History Smoking Status: Former Smoker - CARDIAC Hx Congestive Heart Failure: Yes Hx Hypercholesterolemia: Yes Hx Hypertension: Yes - PULMONARY Hx Asthma: Yes Hx Chronic Obstructive Pulmonary Disease (COPD): Yes Hx Pneumonia: Yes Hx Pulmonary Embolism: Yes - NEUROLOGICAL Hx Neurological Disorder: No - HEENT Hx HEENT Problems: No - RENAL Hx Chronic Kidney Disease: No - ENDOCRINE/METABOLIC Hx Endocrine Disorders: Yes Hx Diabetes Mellitus Type 2: Yes - HEMATOLOGICAL/ONCOLOGICAL Hx Human Immunodeficiency Virus (HIV): No - INTEGUMENTARY Hx Dermatological Problems: Yes (GENERALIZED SKIN PSORIASIS) - MUSCULOSKELETAL/RHEUMATOLOGICAL Hx Falls: No - GASTROINTESTINAL Hx Gastrointestinal Disorders: Yes Other/Comment: GI bleeding - GENITOURINARY/GYNECOLOGICAL Hx Genitourinary Disorders: No - PSYCHIATRIC Hx Substance Use: No - SURGICAL HISTORY Hx Surgeries: Yes Other/Comment: IVC Filter - ANESTHESIA Hx Anesthesia: Yes Hx Anesthesia Reactions: No Hx Malignant Hyperthermia: No Meds Home Medications: Home Medication List Medication Instructions Recorded Confirmed Type Acetaminophen [Tylenol 325mg tab] 650 mg PO Q6 PRN tab 04/04/18 Rx Albuterol HFA [Ventolin HFA 90 2 puff INH RQ4 PRN #1 inhaler 04/04/18 Rx mcg/actuation (8 g)] Albuterol/Ipratropium [Duoneb 3 3 ml INH RQ4 neb 04/04/18 Rx mg/0.5 mg (3 ml) UD] Ammonium Lactate 12% [Lac-Hydrin 1 applic TOP TID bottle 04/04/18 Rx 12% Lotion (225 g)] Azithromycin [Zithromax] 250 mg PO DAILY #5 tab 04/04/18 Rx Fluticasone/Salmeterol 500/50 1 puff IH Q12 #1 dsk 04/04/18 Rx [Advair Diskus 500/50] Methylprednisolone [Medrol Dose 4 mg PO ASDIR #21 mg 04/04/18 Rx Pack (21 tabs)] Montelukast [Singulair] 10 mg PO HS #30 tab 04/04/18 Rx amLODIPine [Norvasc] 5 mg PO DAILY #30 tab 04/04/18 Rx metFORMIN [glucOPHAGE] 500 mg PO BIDWM #60 tab 04/04/18 Rx Allergies/Adverse Reactions: Allergies Allergy/AdvReac Type Severity Reaction Status Date / Time No Known Allergies Allergy Verified 04/01/18 16:38 - Medications Medications: Current Medications Acetaminophen (Tylenol 325mg Tab) 650 mg PO Q6 PRN PRN Reason: Pain, moderate (4-7) Albuterol/Ipratropium (Duoneb 3 Mg/0.5 Mg (3 Ml) Ud) 3 ml INH RQ2 PRN PRN Reason: Shortness of Breath Albuterol/Ipratropium (Duoneb 3 Mg/0.5 Mg (3 Ml) Ud) 3 ml INH RQ3 [facility] Last Admin: 04/04/18 13:26 Dose: 3 ml Azithromycin (Zithromax) 250 mg PO DAILY [facility] Last Admin: 04/04/18 09:27 Dose: Not Given Dextrose (Dextrose 50% Inj) 0 ml IV STAT PRN; Protocol PRN Reason: Hypoglycemia Protocol Dextrose (Glutose 15) 0 gm PO ONCE PRN; Protocol PRN Reason: Hypoglycemia Protocol Enoxaparin Sodium (Lovenox) 40 mg SC DAILY [facility] PRN Reason: Protocol Last Admin: 04/04/18 08:06 Dose: Not Given Glucagon (Glucagen Diagnostic Kit) 0 mg IM STAT PRN; Protocol PRN Reason: Hypoglycemia Protocol Sodium Chloride (Sodium Chloride 0.9%) 1,000 mls @ 100 mls/hr IV .Q10H [facility] Stop: 04/05/18 10:42 Last Admin: 04/04/18 11:12 Dose: 100 mls/hr Insulin Detemir (Levemir) 6 units SC HS [facility] Last Admin: 04/03/18 21:34 Dose: 6 u Insulin Human Regular (Humulin R) 0 units SC ACHS [facility] PRN Reason: Protocol Last Admin: 04/04/18 12:26 Dose: Not Given Lactic Acid (Lac-Hydrin 12% Lotion (225 G)) 1 applic TOP TID [facility] Last Admin: 04/04/18 12:29 Dose: 1 applic Metformin HCl (Glucophage) 1,000 mg PO BIDWM [facility] Last Admin: 04/04/18 08:26 Dose: Not Given Methylprednisolone (Solu-Medrol) 40 mg IVP Q12 [facility] Last Admin: 04/04/18 09:30 Dose: 40 mg Montelukast Sodium (Singulair) 10 mg PO HS [facility] Last Admin: 04/03/18 21:33 Dose: 10 mg Saccharomyces Boulardii (Florastor) 250 mg PO BID [facility] Last Admin: 04/04/18 08:25 Dose: Not Given Physical Exam - Constitutional Appears: Non-toxic - Head Exam Head Exam: ATRAUMATIC, NORMAL INSPECTION, NORMOCEPHALIC - Eye Exam Eye Exam: EOMI, Normal appearance, PERRL Pupil Exam: NORMAL ACCOMODATION, PERRL - ENT Exam ENT Exam: Mucous Membranes Moist, Normal Exam - Neck Exam Neck exam: Positive for: Normal Inspection - Respiratory Exam Respiratory Exam: Prolonged Expiratory Phase, Rhonchi, Wheezes. absent: Accessory Muscle Use, Chest Wall Tenderness, Decreased Breath Sounds, Clear to Auscultation Bilateral, Rales, Respiratory Distress, Stridor, NORMAL BREATHING PATTERN - Cardiovascular Exam Cardiovascular Exam: Tachycardia, Diastolic murmur, +S1, +S2, Systolic Murmur - GI/Abdominal Exam GI & Abdominal Exam: Normal Bowel Sounds, Soft - Rectal Exam Rectal Exam: Deferred - Extremities Exam Extremities exam: Positive for: normal inspection - Back Exam Back exam: NORMAL INSPECTION - Neurological Exam Neurological exam: Alert, CN II-XII Intact, Normal Gait, Oriented x3, Reflexes Normal - Psychiatric Exam Psychiatric exam: Normal Affect, Normal Mood - Skin Skin Exam: Dry, Intact, Normal Color, Warm Results - Vital Signs Recent Vital Signs: Last Vital Signs Temp 98.7 F 04/04/18 13:11 Pulse 111 H 04/04/18 13:11 Resp 19 04/04/18 13:11 BP 138/66 04/04/18 13:11 Pulse Ox 95 04/04/18 13:11 - Labs Result Diagrams: 04/04/18 06:05 04/04/18 06:05 Labs: Laboratory Results - last 24 hr 04/03/18 04/03/18 04/04/18 16:32 21:23 05:29 WBC RBC Hgb Hct MCV MCH MCHC RDW Plt Count Sodium Potassium Chloride Carbon Dioxide Anion Gap BUN Creatinine Est GFR ( Amer) Est GFR (Non-Af Amer) POC Glucose (mg/dL) 218 H 217 H 279 H Random Glucose Calcium 04/04/18 04/04/18 04/04/18 06:05 06:05 11:11 WBC 14.9 H RBC 3.88 L Hgb 10.4 L Hct 31.2 L MCV 80.6 MCH 27.0 MCHC 33.5 RDW 19.0 H Plt Count 219 Sodium 140 Potassium 4.7 Chloride 105 Carbon Dioxide 31 H Anion Gap 9 L BUN 20 Creatinine 0.8 Est GFR ( Amer) > 60 Est GFR (Non-Af Amer) > 60 POC Glucose (mg/dL) 238 H Random Glucose 260 H Calcium 9.0 Assessment & Plan (1) Chest pain, mid sternal Status: Acute (2) Pre-operative cardiovascular examination Status: Acute (3) COPD exacerbation Status: Acute (4) Hernia Status: Acute (5) Hx pulmonary embolism Status: Resolved Priority: High - Assessment and Plan (Free Text) Plan: PTS COMPLAINTS APPEAR TO BE DUE TO PULM ETIOLOGY. WOULD REPEAT EKG AND TROP X 1. PT MAY PROCEED TO OR FROM CARDIAC STANDPOINT IF TROP NEGATIVE AND EKG UNCHANGED. USE BB FOR HR AND BP CONTROL.
[2018-04-04] MEDS: Insulin Detemir 100 Units/ml Inj SC SCH (21:21)
--- NOTE | 2018-04-04 22:16 | CP.PCM.CON ---
History of Present Illness - History of Present Illness History of Present Illness: Called to clear this 67 y/o male for hernia repair surgery. He has a history of COPD. Quit smoking many years ago, has a 30 pack year history of smoking. He can walk 1 to 1 and 1/2 miles without stopping. Uses a NEDRA for SOB when it occurs. NKDA. Fam Hx Non Cont. Subjective: DOLAN after waling more that a mile, alleviated by NEDRA. No other Pulmonary Sx. ROS: as above. Labs: see below. VSS Stable. Head: Normocephalic, no lesions. Nose: Mucosa normal, no obstruction. Throat: Clear, no exudates, no lesions. Neck: Supple, no masses, no thyromegaly, no bruits. Chest: Lungs Mild Exp Wheezing. No crackles nor Rhonchi. . Heart: RR, no murmurs, no rubs, no gallops. Abdomen: Soft, no tenderness, no masses, BS normal. Extremities: FROM, no deformities, no edema, no erythema. Neuro: Physiological, no localizing findings. Chest X-ray was clear. Patient was saturating 97 % on Room Air. Patient is optimized for his hernia surgery. I would give pre and post nebulized Duoneb. If surgery does not object, would give 80 mg of IV Solumdedrol prior to surgery. DVT prophylaxis. Please call again if any post op complications arise. Dr. Asher Baker [phone] Past Patient History - Infectious Disease Hx of Infectious Diseases: None - Tetanus Immunizations Tetanus Immunization: Unknown - Past Medical History & Family History Past Medical History?: Yes - Past Social History Smoking Status: Former Smoker - CARDIAC Hx Congestive Heart Failure: Yes Hx Hypercholesterolemia: Yes Hx Hypertension: Yes - PULMONARY Hx Asthma: Yes Hx Chronic Obstructive Pulmonary Disease (COPD): Yes Hx Pneumonia: Yes Hx Pulmonary Embolism: Yes - NEUROLOGICAL Hx Neurological Disorder: No - HEENT Hx HEENT Problems: No - RENAL Hx Chronic Kidney Disease: No - ENDOCRINE/METABOLIC Hx Endocrine Disorders: Yes Hx Diabetes Mellitus Type 2: Yes - HEMATOLOGICAL/ONCOLOGICAL Hx Human Immunodeficiency Virus (HIV): No - INTEGUMENTARY Hx Dermatological Problems: Yes (GENERALIZED SKIN PSORIASIS) - MUSCULOSKELETAL/RHEUMATOLOGICAL Hx Falls: No - GASTROINTESTINAL Hx Gastrointestinal Disorders: Yes Other/Comment: GI bleeding - GENITOURINARY/GYNECOLOGICAL Hx Genitourinary Disorders: No - PSYCHIATRIC Hx Substance Use: No - SURGICAL HISTORY Hx Surgeries: Yes Other/Comment: IVC Filter - ANESTHESIA Hx Anesthesia: Yes Hx Anesthesia Reactions: No Hx Malignant Hyperthermia: No Meds Home Medications: Home Medication List Medication Instructions Recorded Confirmed Type Acetaminophen [Tylenol 325mg tab] 650 mg PO Q6 PRN tab 04/04/18 Rx Albuterol HFA [Ventolin HFA 90 2 puff INH RQ4 PRN #1 inhaler 04/04/18 Rx mcg/actuation (8 g)] Albuterol/Ipratropium [Duoneb 3 3 ml INH RQ4 neb 04/04/18 Rx mg/0.5 mg (3 ml) UD] Ammonium Lactate 12% [Lac-Hydrin 1 applic TOP TID bottle 04/04/18 Rx 12% Lotion (225 g)] Azithromycin [Zithromax] 250 mg PO DAILY #5 tab 04/04/18 Rx Fluticasone/Salmeterol 500/50 1 puff IH Q12 #1 dsk 04/04/18 Rx [Advair Diskus 500/50] Methylprednisolone [Medrol Dose 4 mg PO ASDIR #21 mg 04/04/18 Rx Pack (21 tabs)] Montelukast [Singulair] 10 mg PO HS #30 tab 04/04/18 Rx amLODIPine [Norvasc] 5 mg PO DAILY #30 tab 04/04/18 Rx metFORMIN [glucOPHAGE] 500 mg PO BIDWM #60 tab 04/04/18 Rx Allergies/Adverse Reactions: Allergies Allergy/AdvReac Type Severity Reaction Status Date / Time No Known Allergies Allergy Verified 04/01/18 16:38 - Medications Medications: Current Medications Acetaminophen (Tylenol 325mg Tab) 650 mg PO Q6 PRN PRN Reason: Pain, moderate (4-7) Albuterol/Ipratropium (Duoneb 3 Mg/0.5 Mg (3 Ml) Ud) 3 ml INH RQ2 PRN PRN Reason: Shortness of Breath Albuterol/Ipratropium (Duoneb 3 Mg/0.5 Mg (3 Ml) Ud) 3 ml INH RQ3 [facility] Last Admin: 04/04/18 19:56 Dose: 3 ml Azithromycin (Zithromax) 250 mg PO DAILY [facility] Last Admin: 04/04/18 09:27 Dose: Not Given Dextrose (Dextrose 50% Inj) 0 ml IV STAT PRN; Protocol PRN Reason: Hypoglycemia Protocol Dextrose (Glutose 15) 0 gm PO ONCE PRN; Protocol PRN Reason: Hypoglycemia Protocol Enoxaparin Sodium (Lovenox) 40 mg SC DAILY [facility] PRN Reason: Protocol Last Admin: 04/04/18 08:06 Dose: Not Given Glucagon (Glucagen Diagnostic Kit) 0 mg IM STAT PRN; Protocol PRN Reason: Hypoglycemia Protocol Sodium Chloride (Sodium Chloride 0.9%) 1,000 mls @ 100 mls/hr IV .Q10H [facility] Stop: 04/05/18 10:42 Last Admin: 04/04/18 11:12 Dose: 100 mls/hr Insulin Detemir (Levemir) 8 units SC [facility] Last Admin: 04/04/18 21:21 Dose: 8 units Insulin Human Regular (Humulin R) 0 units SC ACHS [facility] PRN Reason: Protocol Last Admin: 04/04/18 21:20 Dose: Not Given Lactic Acid (Lac-Hydrin 12% Lotion (225 G)) 1 applic TOP TID [facility] Last Admin: 04/04/18 17:12 Dose: 1 applic Metformin HCl (Glucophage) 1,000 mg PO BIDWM [facility] Last Admin: 04/04/18 17:11 Dose: 1,000 mg Methylprednisolone (Solu-Medrol) 40 mg IVP Q12 [facility] Last Admin: 04/04/18 21:11 Dose: 40 mg Metoprolol Tartrate (Lopressor) 12.5 mg PO Q12 [facility] Last Admin: 04/04/18 22:00 Dose: 12.5 mg Montelukast Sodium (Singulair) 10 mg PO [facility] Last Admin: 04/04/18 21:10 Dose: 10 mg Saccharomyces Boulardii (Florastor) 250 mg PO BID [facility] Last Admin: 04/04/18 17:11 Dose: 250 mg Results - Vital Signs Recent Vital Signs: Last Vital Signs Temp 98 F 04/04/18 16:27 Pulse 110 H 04/04/18 22:00 Resp 18 04/04/18 16:27 BP 142/74 04/04/18 22:00 Pulse Ox 94 L 04/04/18 16:27 - Labs Result Diagrams: 04/04/18 06:05 04/04/18 06:05 Labs: Laboratory Results - last 24 hr 04/04/18 04/04/18 04/04/18 05:29 06:05 06:05 WBC 14.9 H RBC 3.88 L Hgb 10.4 L Hct 31.2 L MCV 80.6 MCH 27.0 MCHC 33.5 RDW 19.0 H Plt Count 219 Sodium 140 Potassium 4.7 Chloride 105 Carbon Dioxide 31 H Anion Gap 9 L BUN 20 Creatinine 0.8 Est GFR ( Amer) > 60 Est GFR (Non-Af Amer) > 60 POC Glucose (mg/dL) 279 H Random Glucose 260 H Calcium 9.0 Troponin I 04/04/18 04/04/18 04/04/18 11:11 16:10 16:16 WBC RBC Hgb Hct MCV MCH MCHC RDW Plt Count Sodium Potassium Chloride Carbon Dioxide Anion Gap BUN Creatinine Est GFR ( Amer) Est GFR (Non-Af Amer) POC Glucose (mg/dL) 238 H 418 H* Random Glucose Calcium Troponin I 0.0330 04/04/18 04/04/18 18:38 21:17 WBC RBC Hgb Hct MCV MCH MCHC RDW Plt Count Sodium Potassium Chloride Carbon Dioxide Anion Gap BUN Creatinine Est GFR ( Amer) Est GFR (Non-Af Amer) POC Glucose (mg/dL) 380 H 277 H Random Glucose Calcium Troponin I
[2018-04-05] MEDS: Albuterol-Ipratrop 3 mg / 0.5 (3 ml) UD INH SCH ×8 (02:55→22:24)
[2018-04-05 06:58] LABS: HEMOGLOBIN 10.9 g/dL (12.0-18.0); MEAN CELL VOLUME 81.7 fl (80.0-94.0); MEAN CORPUSCULAR HEMOGLOBIN 26.9 pg (27.0-31.0); MEAN CORPUSCULAR HGB CONC 32.9 g/dL (33.0-37.0); RBC 4.05 Mil/uL (4.40-5.90); RED CELL DISTRIBUTION WIDTH 18.7 % (11.5-14.5); WHITE BLOOD COUNT 13.4 K/uL (4.8-10.8)
[2018-04-05 07:01] LABS: PROTHROMBIN TIME 11.3 Seconds (9.8-13.1)
[2018-04-05 07:04] LABS: PARTIAL THROMBOPLASTIN TIME 26.1 Seconds (25.6-37.1)
[2018-04-05] MEDS: Insulin Regular 100 units/ml SC SCH ×5 (07:14→22:03)
[2018-04-05 07:49] LABS: BLOOD UREA NITROGEN 19 mg/dl (9-20); CALCIUM 9.1 mg/dL (8.4-10.2); GFR NON-AFRICAN AMERICAN > 60
[2018-04-05] MEDS: MethylPREDNISolone 40 mg Vial IVP SCH ×2 (08:42→21:00)
[2018-04-05] MEDS ORDERED: Magnesium Sulfate 1 gm in D5W 1 GM/100 ML BAG IVPB ONE (09:00)
--- NOTE | 2018-04-05 09:13 | CP.PCM.PN ---
Subjective - Date & Time of Evaluation Date of Evaluation: 04/05/18 Time of Evaluation: 09:12 - Subjective Subjective: Patient seen and examined at bedside with Dr. Leos. He is lying down comfortably on his bed, currently on 2L NC of oxygen. Patient states his breathing is okay and he only complains of left groin pain related to his left inguinal hernia. He denies chest pain, shortness of breath, abdominal pain, nausea, vomiting, dysuria, frequency and urgency. Patient has been NPO since midnight for surgical procedure today. Objective - Vital Signs/Intake and Output Vital Signs (last 24 hours): Temp Pulse Resp BP Pulse Ox 98.5 F 97 H 20 155/80 H 98 04/05/18 08:38 04/05/18 08:38 04/05/18 08:38 04/05/18 08:38 04/05/18 08:38 - Medications Medications: Current Medications Acetaminophen (Tylenol 325mg Tab) 650 mg PO Q6 PRN PRN Reason: Pain, moderate (4-7) Albuterol/Ipratropium (Duoneb 3 Mg/0.5 Mg (3 Ml) Ud) 3 ml INH RQ2 PRN PRN Reason: Shortness of Breath Albuterol/Ipratropium (Duoneb 3 Mg/0.5 Mg (3 Ml) Ud) 3 ml INH RQ3 [facility] Last Admin: 04/05/18 07:49 Dose: 3 ml Azithromycin (Zithromax) 250 mg PO DAILY [facility] Last Admin: 04/04/18 09:27 Dose: Not Given Dextrose (Dextrose 50% Inj) 0 ml IV STAT PRN; Protocol PRN Reason: Hypoglycemia Protocol Dextrose (Glutose 15) 0 gm PO ONCE PRN; Protocol PRN Reason: Hypoglycemia Protocol Enoxaparin Sodium (Lovenox) 40 mg SC DAILY [facility] PRN Reason: Protocol Last Admin: 04/04/18 08:06 Dose: Not Given Glucagon (Glucagen Diagnostic Kit) 0 mg IM STAT PRN; Protocol PRN Reason: Hypoglycemia Protocol Sodium Chloride (Sodium Chloride 0.9%) 1,000 mls @ 100 mls/hr IV .Q10H [facility] Stop: 04/05/18 10:42 Last Admin: 04/04/18 11:12 Dose: 100 mls/hr Magnesium Sulfate/Dextrose (Magnesium Sulfate 1 Gm/100 Ml D5w) 1 gm in 100 mls @ 100 mls/hr IVPB ONCE ONE PRN Reason: 1 GM/HR Stop: 04/05/18 09:59 Insulin Detemir (Levemir) 8 units SC [facility] Last Admin: 04/04/18 21:21 Dose: 8 units Insulin Human Regular (Humulin R) 0 units SC [facility] PRN Reason: Protocol Last Admin: 04/05/18 07:14 Dose: Not Given Lactic Acid (Lac-Hydrin 12% Lotion (225 G)) 1 applic TOP TID [facility] Last Admin: 04/05/18 08:41 Dose: 1 applic Metformin HCl (Glucophage) 1,000 mg PO BIDWM [facility] Last Admin: 04/04/18 17:11 Dose: 1,000 mg Methylprednisolone (Solu-Medrol) 40 mg IVP Q12 [facility] Last Admin: 04/05/18 08:42 Dose: 40 mg Metoprolol Tartrate (Lopressor) 12.5 mg PO Q12 [facility] Last Admin: 04/05/18 08:38 Dose: 12.5 mg Montelukast Sodium (Singulair) 10 mg PO [facility] Last Admin: 04/04/18 21:10 Dose: 10 mg Saccharomyces Boulardii (Florastor) 250 mg PO BID [facility] Last Admin: 04/04/18 17:11 Dose: 250 mg - Labs Labs: 04/05/18 06:35 04/05/18 06:35 PT 11.3 Seconds (9.8-13.1) 04/05/18 06:35 INR 1.0 04/05/18 06:35 APTT 26.1 Seconds (25.6-37.1) 04/05/18 06:35 - Constitutional Appears: Well, Non-toxic, No Acute Distress - Head Exam Head Exam: NORMAL INSPECTION - ENT Exam ENT Exam: Mucous Membranes Moist - Respiratory Exam Respiratory Exam: Decreased Breath Sounds, Wheezes (expiratory wheezing appreciated ). absent: Chest Wall Tenderness, Rales, Rhonchi, Stridor - Cardiovascular Exam Cardiovascular Exam: Tachycardia, REGULAR RHYTHM, +S1, +S2. absent: Diastolic murmur, Gallop, JVD, Rubs, +S4 - GI/Abdominal Exam GI & Abdominal Exam: Distended, Soft, Normal Bowel Sounds. absent: Firm, Guarding, Rigid, Tenderness, Mass, Organomegaly, Rebound - Extremities Exam Extremities Exam: Normal Inspection (Psoriasis present on bilateral upper and lower extremities;). absent: Calf Tenderness, Joint Swelling, Pedal Edema, Tenderness - Neurological Exam Neurological Exam: Alert, Awake, Oriented x3 - Psychiatric Exam Psychiatric exam: Normal Affect, Normal Mood - Skin Skin Exam: Dry, Warm Assessment and Plan - Assessment and Plan (Free Text) Assessment: 67 yr old Male with PMHx COPD, NIDDM type 2, HTN, PE s/p IVC filter-2014 (not on anticoagulation), hx of retroperitoneal hematoma (2014) and psoriasis admitted for acute COPD exacerbation and chest pain and found to have non- reducible inguinal hernia on physical exam. Plan: 1. Acute COPD exacerbation -acute on chronic -CXR: no active disease -Change methylprednisolone to 40 mg Q8H to Methylprednisolone 40mg Q12h. -Duo-nebs Q3h [facility]; Duonebs Q2 PRN for SOB -c/w Azithromycin 250mg PO QD -Patient is now on NC 2L. Saturates 99% on RA. 2. Incarcerated Inguinal hernia - Patient at moderate to high risk for surgery due to COPD and previous history of PE, can proceed to surgery. Patient was made aware of risks but still wants the surgery to be performed. - Previous CT abd and pelvis 04/04: demonstrates large left inguinal hernia with increased left colon and sigmoid colon extending into hernia defect. No bowel ischemia. - Surgery recommendations appreciated- scheduled for surgery today, 04/05 - NPO - Analgesics/ anti-emetics PRN - Monitor Bowel function. - Pulm rec's appreciated- Patient will recieve Duonebs prior to surgery and afterward. He will also recieve Solumedrol 80mg IVP prior to surgery. 3. Chest pain (resolved) -Acute, likely due to coughing vs r/o ACS -troponin negative x 1 -EKG: sinus tachycardia - ECHO 11/2017: Mild -moderate Mitral regurgitation. Echogenic body attached to the aortic valve- unchanged from previous study 04/2017. - Cardiology rec's appreciated- Pt may proceed with surgery from a cardiac standpoint. 4. NIDDM Type 2 -chronic, uncontrolled - Recent glucose readings ranging 277-320 possibly secondary to solumedrol and patient is currently NPO for left inguinal surgery. -HbA1c 7.3 on 02/07/18 -not on any home medications -POC glucose ACHS -Moderate dose regular insulin coverage scale - Pt on Levemir 8 units HS. -NPO- restart low carbohydrate/heart healthy/low sodium diet after surgery is performed. - Metformin Held, restart 04/06/18. - Continue to monitor Glucose levels. 5. Hypomagnesemia - Repleted with Mg sulfate 1 gm. 6. History of Hypertension -chronic, controlled -not on any home medications -monitor BP 7. Psoriasis -chronic -Lac-hydrin 12% lotion TOP TID to legs and arms BID 8. Hx PE -chronic-2014 -has IVC filter 9. DVT Prophylaxis -Lovenox Held because of surgery.
--- NOTE | 2018-04-05 09:14 | CARD ---
APPROVED REPORT Date of service: 04/04/2018 <Conclusion> Sinus tachycardia Cannot rule out Inferior infarct, age undetermined Abnormal ECG
[2018-04-05] MEDS ORDERED: SODIUM CHLORIDE 0.9% IV PRN (10:03)
[2018-04-05] MEDS: Saccharomyces Boulardi 250 mg Cap PO SCH ×2 (10:03→18:01)
[2018-04-05] MEDS ORDERED: METHYLPREDNISOLONE IV PRN (10:03)
--- NOTE | 2018-04-05 12:35 | CP.PCM.PN ---
Subjective - Date & Time of Evaluation Date of Evaluation: 04/05/18 Time of Evaluation: 12:28 - Subjective Subjective: General Surgery Pt seen and examined this AM. Pt reports his hernia bulge reappeared this AM after trying to have a BM. (-) tender. Pt seen by pulm and cardio and he is cleared for surgery. Pt has been NPO. Labs and vitals noted. Low mag noted. PE Gen: Pt laying in bed in nad Skin: warm and dry Cardio: s1s2 RRR Lungs: (+) expiratory wheezes throughout. (-) tachypnea Abd: Soft, NTND. Left inguinal hernia extending into left testicle. (+) reduced at bedside manually Extr: (-) calf tenderness bilaterally, (+) hyperpigmentation of bilateral LEs A/P Left inguinal hernia Pt for OR today Medicine to premedicate pt per pulm's recommendations Objective - Vital Signs/Intake and Output Vital Signs (last 24 hours): Temp Pulse Resp BP Pulse Ox 98.5 F 97 H 20 155/80 H 98 04/05/18 08:38 04/05/18 08:38 04/05/18 08:38 04/05/18 08:38 04/05/18 08:38 - Medications Medications: Current Medications Acetaminophen (Tylenol 325mg Tab) 650 mg PO Q6 PRN PRN Reason: Pain, moderate (4-7) Albuterol/Ipratropium (Duoneb 3 Mg/0.5 Mg (3 Ml) Ud) 3 ml INH RQ2 PRN PRN Reason: Shortness of Breath Albuterol/Ipratropium (Duoneb 3 Mg/0.5 Mg (3 Ml) Ud) 3 ml INH RQ3 [facility] Last Admin: 04/05/18 10:39 Dose: 3 ml Azithromycin (Zithromax) 250 mg PO DAILY [facility] Last Admin: 04/05/18 10:03 Dose: Not Given Dextrose (Dextrose 50% Inj) 0 ml IV STAT PRN; Protocol PRN Reason: Hypoglycemia Protocol Dextrose (Glutose 15) 0 gm PO ONCE PRN; Protocol PRN Reason: Hypoglycemia Protocol Enoxaparin Sodium (Lovenox) 40 mg SC DAILY [facility] PRN Reason: Protocol Last Admin: 04/04/18 08:06 Dose: Not Given Glucagon (Glucagen Diagnostic Kit) 0 mg IM STAT PRN; Protocol PRN Reason: Hypoglycemia Protocol Insulin Detemir (Levemir) 8 units SC [facility] Last Admin: 04/04/18 21:21 Dose: 8 units Insulin Human Regular (Humulin R) 0 units SC [facility] PRN Reason: Protocol Last Admin: 04/05/18 11:29 Dose: Not Given Lactic Acid (Lac-Hydrin 12% Lotion (225 G)) 1 applic TOP TID [facility] Last Admin: 04/05/18 08:41 Dose: 1 applic Metformin HCl (Glucophage) 1,000 mg PO BIDWM [facility] Last Admin: 04/04/18 17:11 Dose: 1,000 mg Methylprednisolone (Solu-Medrol) 40 mg IVP Q12 [facility] Last Admin: 04/05/18 08:42 Dose: 40 mg Methylprednisolone (Solu-Medrol) 80 mg IVP ONCE PRN PRN Reason: Wheezing Metoprolol Tartrate (Lopressor) 12.5 mg PO Q12 [facility] Last Admin: 04/05/18 08:38 Dose: 12.5 mg Montelukast Sodium (Singulair) 10 mg PO [facility] Last Admin: 04/04/18 21:10 Dose: 10 mg Saccharomyces Boulardii (Florastor) 250 mg PO BID [facility] Last Admin: 04/05/18 10:03 Dose: Not Given - Labs Labs: 04/05/18 06:35 04/05/18 06:35 PT 11.3 Seconds (9.8-13.1) 04/05/18 06:35 INR 1.0 04/05/18 06:35 APTT 26.1 Seconds (25.6-37.1) 04/05/18 06:35
[2018-04-05] MEDS: Sodium Chloride 0.9% 1,000 ML IV SCH (12:48)
[2018-04-05] MEDS ORDERED: Propofol 10 mg/ml Inj (20 ML) ONE (16:34)
[2018-04-05] MEDS ORDERED: Succinylcholine 200 mg/10 ml Inj IV ONE (16:35)
[2018-04-05] MEDS ORDERED: Midazolam 2 MG/2 ML VIAL ONE (16:35)
[2018-04-05] MEDS ORDERED: Neostigmine 1:1000 (1 mg/ml) Inj ONE (16:35)
[2018-04-05] MEDS ORDERED: Lidocaine 1% 5ml Abboject ONE (16:35)
[2018-04-05] MEDS ORDERED: Rocuronium 10 mg/ml (5 ml) ONE (16:35)
[2018-04-05] MEDS ORDERED: Lidocaine 4% (Laryng-O-Jet) Kit MM ONE (16:35)
[2018-04-05] MEDS ORDERED: Lactated Ringer's 1,000 ML IV ONE (16:51)
[2018-04-05] MEDS ORDERED: ceFAZolin IV 1 gm in Dextrose 2 GM/100 ML BAG IVPB ONE (17:07)
[2018-04-05] MEDS ORDERED: Bupivacaine HCl 0.5% PF (30 ml) Inj ONE (18:30)
[2018-04-05] MEDS ORDERED: Oxycodone/Acetaminophen 5/325 mg Tab PO PRN (18:56)
[2018-04-05] MEDS ORDERED: HYDROmorphone 0.5 mg/0.5 ml ISec IVP PRN (18:56)
[2018-04-05] MEDS ORDERED: Lactated Ringer's 1,000 ML IV SCH (19:00)
--- NOTE | 2018-04-05 19:00 | PCM.SURG1 ---
Surgeon's Initial Post Op Note - Surgeon's Notes Surgeon: Dr. Parker Stock Parts Fabricator: Veronique [id number] Type of Anesthesia: General Endo, Local Anesthesia Administered By: Dr. Diaz Pre-Operative Diagnosis: Left ingunial hernia (sliding hernia) Operative Findings: Left ingunial hernia (sliding hernia) Post-Operative Diagnosis: Left ingunial hernia (sliding hernia) Operation Performed: Repair of Left ingunial hernia with plug & patch mesh Specimen/Specimens Removed: Lipoma of cord, hernia sac Estimated Blood Loss: EBL {In ML}: 5 Blood Products Given: N/A Drains Used: No Drains Post-Op Condition: Good Date of Surgery/Procedure: 04/05/18 Time of Surgery/Procedure: 19:00
[2018-04-05] MEDS: Oxycodone/Acetaminophen 5/325 mg Tab PO PRN (20:51)
[2018-04-05] MEDS: Insulin Detemir 100 Units/ml Inj SC SCH (22:05)
[2018-04-06] MEDS: Albuterol-Ipratrop 3 mg / 0.5 (3 ml) UD INH SCH ×8 (01:08→23:56)
[2018-04-06 06:30] LABS: HEMOGLOBIN 11.3 g/dL (12.0-18.0); MEAN CORPUSCULAR HEMOGLOBIN 26.9 pg (27.0-31.0); MEAN CORPUSCULAR HGB CONC 33.3 g/dL (33.0-37.0); RBC 4.19 Mil/uL (4.40-5.90); RED CELL DISTRIBUTION WIDTH 18.6 % (11.5-14.5); WHITE BLOOD COUNT 13.5 K/uL (4.8-10.8)
[2018-04-06] MEDS: Insulin Regular 100 units/ml SC SCH ×4 (06:34→21:57)
[2018-04-06] MEDS: Oxycodone/Acetaminophen 5/325 mg Tab PO PRN ×2 (06:37→20:18)
[2018-04-06 06:41] LABS: BLOOD UREA NITROGEN 23 mg/dl (9-20); CALCIUM 9.3 mg/dL (8.4-10.2); GFR NON-AFRICAN AMERICAN > 60
[2018-04-06] MEDS ORDERED: Artificial Tears Opht Soln OU PRN (07:48)
--- NOTE | 2018-04-06 08:32 | OP ---
PROCEDURE DATE: 04/05/18 PREOPERATIVE DIAGNOSIS: Left inguinal hernia. POSTOPERATIVE DIAGNOSIS: Indirect sliding left inguinal hernia. PROCEDURE: Repair of the left inguinal hernia in a plug and patch fashion. SURGEON: Bradley Pakrer MD OWNER PROFESSIONAL ENGINEER: Jonathan Piper DO ANESTHESIA: General endotracheal intubation. INTRAVENOUS FLUIDS: Crystalloids. ESTIMATED BLOOD LOSS: 5 mL. INTRAOPERATIVE FINDINGS: Sliding indirect left inguinal hernia. SPECIMEN: Hernia sac and lipoma of the cord. BRIEF HISTORY: The patient is a very pleasant 67-year-old gentleman who was admitted to [facility] for CHF exacerbation; however secondary to his CHF exacerbation and excessive coughing, the patient developed left inguinal hernia that was reducible. However, the hernia would keep on popping out and investigations with a CAT scan, it appeared that the sigmoid colon was hernia defect. The patient was cleared by Cardiology as well as Pulmonology and was taken to the operating room for above stated procedure. All the risks and benefits of the procedure were explained to the patient. With the patient having a full understanding of all the risks and benefits involved, informed consent was obtained and the patient was taken to the operating room for the above stated procedure. DESCRIPTION OF PROCEDURE: The patient was brought into the operating room and placed supine on the operating table. Bilateral Flowtron boots were applied to the patient's lower extremities. After successful induction of anesthesia and successful endotracheal intubation by the anesthesia team, the patient's left groin was shaved and prepped with ChloraPrep stick and draped in a standard surgical fashion. Prior to the beginning of the procedure, the patient received prophylactic Ancef antibiotic. Time-out was called in the room, and everyone in the room were in agreement. Using a 15-blade scalpel knife, approximately 5-cm incision was made in the left groin in an oblique fashion. Subsequent to that, dissection was carried down with electrocautery for the dermis and subcutaneous tissues and for the Sarath's fascia until the fibers of the external oblique muscle were encountered. Once the fibers of the external oblique muscles were encountered, a small сергей was made with 15-blade scalpel knife along the fibers of the external oblique and subsequent to that using Metzenbaum scissors, the roof of the inguinal canal was opened up. At this point in time, two mosquito clamps were placed on superior edge of the external oblique and inferior edge of the external oblique, and the flaps were raised. At this point in time, the hernia sac and the cord structures were encountered. The hernia sac and the cord structures were mobilized with blunt dissection with the finger. Once the cord was mobilized over the hernia sac, a [place] drain was placed around the structures. At this point in time, our attention was then turned to the hernia sac. Hernia sac was dissected off the cord structures preserving the pampiniform plexus as well as vas deferens. Once the hernia sac was completely dissected off all the way down to the internal inguinal ring, the hernia sac was opened and contents of the hernia sac were examined. The sigmoid colon appeared to be viable and without any signs of ischemia or strangulation. The colon was reduced back into the abdominal cavity. At this point in time, the hernia sac was twisted. Two ligating 2-0 Vicryl sutures were placed right at the base of the hernia sac and tied off. At this point in time, the hernia sac was dissected off above the sutures and passed off to the Mtz stand as a specimen. Upon further dissection, we encountered the lipoma of the cord that was dissected off and passed off to the Mtz stand as a specimen. At this point in time, upon inspection of the internal inguinal ring, we made a decision to use extra large plug. The plug was wetted and introduced into the internal inguinal ring and secured superiorly, laterally, and medially with interrupted 3-0 Vicryl sutures. Once this was accomplished, the mesh was tailored to cover the floor of the inguinal canal, and a 2-0 Vicryl suture on UR-6 needle was placed in the pubic tubercle and secured to the apex of the mesh. Subsequent to that, the mesh was secured inferiorly to the shelving edge of the inguinal ligament and superiorly to the conjoint tendon. At this point in time, the ears of the mesh were brought around the cord structures, and one stitch was done to secure the ears of the mesh behind the cord structures. At this point in time, the wound was irrigated and dried. Hemostasis was confirmed. External oblique muscle was closed with a running 3-0 Vicryl suture. Once this was accomplished, several interrupted 3-0 Vicryl sutures were used to approximate the Sarath's fascia. Subsequent to that, several deep dermal sutures with 3-0 Vicryl were placed in a deep dermal layer to approximate the tissues, and the wound was injected with 20 mL of Marcaine local anesthetic. Subsequent to that, the skin was closed with a 4-0 Monocryl suture in a running subcuticular fashion. At the end of the procedure, the incision was washed and dried. Dermabond was applied to the site of the incision. The patient was successfully extubated by the anesthesia team, transferred to the stretcher, and taken to the recovery room in a stable condition. At the end of the procedure, all the instrument counts, needles, and sponges were correct. Bradley Parker MD
[2018-04-06] MEDS: Enoxaparin 40 mg Syringe SC SCH (08:33)
[2018-04-06] MEDS: Saccharomyces Boulardi 250 mg Cap PO SCH ×2 (08:33→16:31)
[2018-04-06] MEDS: MethylPREDNISolone 40 mg Vial IVP SCH ×2 (08:33→20:19)
--- NOTE | 2018-04-06 10:19 | CP.PCM.PN ---
Subjective - Date & Time of Evaluation Date of Evaluation: 04/06/18 Time of Evaluation: 09:15 - Subjective Subjective: Patient evaluated at bedside with Dr. Leos. He is sitting comfortably and on 2L NC. He reports feeling well today and reports 6/10 groin pain after surgery. He states that he has voided well and feels gasey but denies BM since yesterday. Denies fevers, chills, shortness of breath, nausea, vomiting, leg pain, chest pain, dysuria, frequency and urgency. Objective - Vital Signs/Intake and Output Vital Signs (last 24 hours): Temp Pulse Resp BP Pulse Ox 97.8 F 85 20 159/80 H 97 04/06/18 08:51 04/06/18 08:51 04/06/18 08:51 04/06/18 08:51 04/06/18 08:51 - Medications Medications: Current Medications Acetaminophen (Tylenol 325mg Tab) 650 mg PO Q6 PRN PRN Reason: Pain, moderate (4-7) Albuterol/Ipratropium (Duoneb 3 Mg/0.5 Mg (3 Ml) Ud) 3 ml INH RQ2 PRN PRN Reason: Shortness of Breath Last Admin: 04/05/18 19:08 Dose: 3 ml Albuterol/Ipratropium (Duoneb 3 Mg/0.5 Mg (3 Ml) Ud) 3 ml INH RQ3 [facility] Last Admin: 04/06/18 08:03 Dose: 3 ml Artificial Tears (Artificial Tears) 2 drop OU Q6 PRN PRN Reason: Dry eyes Last Admin: 04/06/18 09:27 Dose: 2 drop Azithromycin (Zithromax) 250 mg PO DAILY [facility] Last Admin: 04/06/18 08:33 Dose: 250 mg Dextrose (Dextrose 50% Inj) 0 ml IV STAT PRN; Protocol PRN Reason: Hypoglycemia Protocol Dextrose (Glutose 15) 0 gm PO ONCE PRN; Protocol PRN Reason: Hypoglycemia Protocol Enoxaparin Sodium (Lovenox) 40 mg SC DAILY [facility] PRN Reason: Protocol Last Admin: 04/06/18 08:33 Dose: 40 mg Glucagon (Glucagen Diagnostic Kit) 0 mg IM STAT PRN; Protocol PRN Reason: Hypoglycemia Protocol Lactated Ringer's (Lactated Ringer's) 1,000 mls @ 100 mls/hr IV .Q10H [facility] Insulin Detemir (Levemir) [address] [facility] Last Admin: 04/05/18 22:05 Dose: 8 units Insulin Human Regular (Humulin R) 0 units SC [facility] PRN Reason: Protocol Last Admin: 04/06/18 06:34 Dose: 4 units Lactic Acid (Lac-Hydrin 12% Lotion (225 G)) 1 applic TOP TID [facility] Last Admin: 04/06/18 08:33 Dose: 1 applic Metformin HCl (Glucophage) 1,000 mg PO BIDWM [facility] Last Admin: 04/04/18 17:11 Dose: 1,000 mg Methylprednisolone (Solu-Medrol) 40 mg IVP Q12 [facility] Last Admin: 04/06/18 08:33 Dose: 40 mg Metoprolol Tartrate (Lopressor) 12.5 mg PO Q12 [facility] Last Admin: 04/06/18 08:32 Dose: 12.5 mg Montelukast Sodium (Singulair) [address] [facility] Last Admin: 04/05/18 21:00 Dose: 10 mg Morphine Sulfate (Morphine) 2 mg IVP Q4 PRN PRN Reason: Pain, severe (8-10) Last Admin: 04/06/18 03:40 Dose: 2 mg Oxycodone/Acetaminophen (Percocet 5/325 Mg Tab) 1 tab PO Q4 PRN PRN Reason: Pain, Mild (1-3) Stop: 04/08/18 18:57 Oxycodone/Acetaminophen (Percocet 5/325 Mg Tab) 2 tab PO Q4 PRN PRN Reason: Pain, moderate (4-7) Stop: 04/08/18 18:57 Last Admin: 04/06/18 06:37 Dose: 2 tab Saccharomyces Boulardii (Florastor) 250 mg PO BID [facility] Last Admin: 04/06/18 08:33 Dose: 250 mg - Labs Labs: 04/06/18 06:02 04/06/18 06:02 PT 11.3 Seconds (9.8-13.1) 04/05/18 06:35 INR 1.0 04/05/18 06:35 APTT 26.1 Seconds (25.6-37.1) 04/05/18 06:35 - Constitutional Appears: Well, Non-toxic, No Acute Distress - ENT Exam ENT Exam: Mucous Membranes Moist - Respiratory Exam Respiratory Exam: Decreased Breath Sounds, Prolonged Expiratory Phase, Wheezes ( Global expiratory wheeze. ). absent: Chest Wall Tenderness, Rales, Rhonchi, Respiratory Distress, Stridor Additional comments: coughing on inspiration - Cardiovascular Exam Cardiovascular Exam: REGULAR RHYTHM, RRR, +S1, +S2. absent: Diastolic murmur, JVD, Murmur - GI/Abdominal Exam GI & Abdominal Exam: Distended, Soft, Normal Bowel Sounds. absent: Firm, Guarding, Tenderness, Rebound - Exam Exam: NORMAL INSPECTION (Patient has a scrotal support in place. Non-tender, non-erythematous. ) - Extremities Exam Extremities Exam: Full ROM. absent: Calf Tenderness (chronic bilateral upper and lower extremity psoariasis. ) - Neurological Exam Neurological Exam: Alert, Awake - Psychiatric Exam Psychiatric exam: Normal Affect, Normal Mood - Skin Skin Exam: Dry, Intact Assessment and Plan - Assessment and Plan (Free Text) Assessment: 67 yr old Male with PMHx COPD, NIDDM type 2, HTN, PE s/p IVC filter-2014 (not on anticoagulation), hx of retroperitoneal hematoma (2014) and psoriasis admitted for acute COPD exacerbation and chest pain and found to have non- reducible inguinal hernia on physical exam is now s/p Left inguinal hernia repair with plug & patch mesh Plan: 1. Acute COPD exacerbation -acute on chronic -CXR: no active disease -Continue Methylprednisolone 40mg Q12h. -Duo-nebs Q3h JEFF[facility]; Duonebs Q2 PRN for SOB -c/w Azithromycin 250mg PO QD -Patient is now on NC 2L. Saturates 99% on RA. - Mucinex LA 600mg BID added for expectorant 2. Incarcerated Inguinal hernia S/P Repair of Left ingunial hernia with plug & patch mesh - Patient tolerated procedure well. - Analgesics/ anti-emetics PRN - Monitor Bowel function. - currently on heart healthy diet. 3. Chest pain (resolved) -Acute, likely due to coughing vs r/o ACS -troponin negative x 1 -EKG: sinus tachycardia - ECHO 11/2017: Mild -moderate Mitral regurgitation. Echogenic body attached to the aortic valve- unchanged from previous study 04/2017. 4. NIDDM Type 2 -chronic, uncontrolled -Recent glucose readings ranging 277-320 possibly secondary to solumedrol. -HbA1c 7.3 on 02/07/18 -not on any home medications -POC glucose ACHS -Moderate dose regular insulin coverage scale - Change Levemir 8 units HS to Levemir 10 U HS. - Metformin restarted. - Continue to monitor Glucose levels. 5. Hypomagnesemia - Resolved. 6. History of Hypertension -chronic, controlled -Amlodipine 5mg po Daily started. -monitor BP 7. Psoriasis -chronic -Lac-hydrin 12% lotion TOP TID to legs and arms BID 8. Hx PE -chronic-2015 -has IVC filter 9. DVT Prophylaxis -Lovenox 40 mg SC Daily.
[2018-04-06] MEDS ORDERED: Insulin Detemir 100 Units/ml Inj SC SCH (10:25)
--- NOTE | 2018-04-06 11:16 | CP.PCM.PN ---
Subjective - Date & Time of Evaluation Date of Evaluation: 04/06/18 Time of Evaluation: 11:00 - Subjective Subjective: Patient was seen and examined at the bedside. Reports some pantera-incisional pain , tolerating regular diet. Objective - Vital Signs/Intake and Output Vital Signs (last 24 hours): Temp Pulse Resp BP Pulse Ox 97.8 F 85 20 159/80 H 97 04/06/18 08:51 04/06/18 08:51 04/06/18 08:51 04/06/18 08:51 04/06/18 08:51 - Medications Medications: Current Medications Acetaminophen (Tylenol 325mg Tab) 650 mg PO Q6 PRN PRN Reason: Pain, moderate (4-7) Albuterol/Ipratropium (Duoneb 3 Mg/0.5 Mg (3 Ml) Ud) 3 ml INH RQ2 PRN PRN Reason: Shortness of Breath Last Admin: 04/05/18 19:08 Dose: 3 ml Albuterol/Ipratropium (Duoneb 3 Mg/0.5 Mg (3 Ml) Ud) 3 ml INH RQ3 JEFFRE[facility] Last Admin: 04/06/18 11:04 Dose: 3 ml Amlodipine Besylate (Norvasc) 5 mg PO DAILY [facility] Artificial Tears (Artificial Tears) 2 drop OU Q6 PRN PRN Reason: Dry eyes Last Admin: 04/06/18 09:27 Dose: 2 drop Azithromycin (Zithromax) 250 mg PO DAILY [facility] Last Admin: 04/06/18 08:33 Dose: 250 mg Dextrose (Dextrose 50% Inj) 0 ml IV STAT PRN; Protocol PRN Reason: Hypoglycemia Protocol Dextrose (Glutose 15) 0 gm PO ONCE PRN; Protocol PRN Reason: Hypoglycemia Protocol Enoxaparin Sodium (Lovenox) 40 mg SC DAILY [facility] PRN Reason: Protocol Last Admin: 04/06/18 08:33 Dose: 40 mg Glucagon (Glucagen Diagnostic Kit) 0 mg IM STAT PRN; Protocol PRN Reason: Hypoglycemia Protocol Guaifenesin (Mucinex La) 600 mg PO Q12 [facility] Lactated Ringer's (Lactated Ringer's) 1,000 mls @ 100 mls/hr IV .Q10H [facility] Insulin Detemir (Levemir) 10 units SC HS [facility] Insulin Human Regular (Humulin R) 0 units SC ACHS [facility] PRN Reason: Protocol Last Admin: 04/06/18 06:34 Dose: 4 units Lactic Acid (Lac-Hydrin 12% Lotion (225 G)) 1 applic TOP TID [facility] Last Admin: 04/06/18 08:33 Dose: 1 applic Metformin HCl (Glucophage) 1,000 mg PO BIDWM [facility] Last Admin: 04/04/18 17:11 Dose: 1,000 mg Methylprednisolone (Solu-Medrol) 40 mg IVP Q12 [facility] Last Admin: 04/06/18 08:33 Dose: 40 mg Metoprolol Tartrate (Lopressor) 12.5 mg PO Q12 [facility] Last Admin: 04/06/18 08:32 Dose: 12.5 mg Montelukast Sodium (Singulair) 10 mg PO HS [facility] Last Admin: 04/05/18 21:00 Dose: 10 mg Morphine Sulfate (Morphine) 2 mg IVP Q4 PRN PRN Reason: Pain, severe (8-10) Last Admin: 04/06/18 03:40 Dose: 2 mg Oxycodone/Acetaminophen (Percocet 5/325 Mg Tab) 1 tab PO Q4 PRN PRN Reason: Pain, Mild (1-3) Stop: 04/08/18 18:57 Oxycodone/Acetaminophen (Percocet 5/325 Mg Tab) 2 tab PO Q4 PRN PRN Reason: Pain, moderate (4-7) Stop: 04/08/18 18:57 Last Admin: 04/06/18 06:37 Dose: 2 tab Saccharomyces Boulardii (Florastor) 250 mg PO BID [facility] Last Admin: 04/06/18 08:33 Dose: 250 mg - Labs Labs: 04/06/18 06:02 04/06/18 06:02 PT 11.3 Seconds (9.8-13.1) 04/05/18 06:35 INR 1.0 04/05/18 06:35 APTT 26.1 Seconds (25.6-37.1) 04/05/18 06:35 - Constitutional Appears: Well, Non-toxic, No Acute Distress - Head Exam Head Exam: ATRAUMATIC, NORMAL INSPECTION, NORMOCEPHALIC - Eye Exam Eye Exam: EOMI, Normal appearance, PERRL Pupil Exam: NORMAL ACCOMODATION, PERRL - ENT Exam ENT Exam: Mucous Membranes Moist, Normal Exam - Neck Exam Neck Exam: Full ROM, Normal Inspection - Respiratory Exam Respiratory Exam: Rhonchi - Cardiovascular Exam Cardiovascular Exam: REGULAR RHYTHM, +S1, +S2 - GI/Abdominal Exam GI & Abdominal Exam: Soft, Normal Bowel Sounds Additional comments: pantera-incisional tenderness, ND, BS+, no rebound, no guarding, no evidence of hernia recurrence, incision clean, no erythema, no drainage, dermobond in place - Rectal Exam Rectal Exam: Deferred - Extremities Exam Extremities Exam: Full ROM, Normal Inspection - Neurological Exam Neurological Exam: Alert, Awake, Oriented x3 - Psychiatric Exam Psychiatric exam: Normal Affect - Skin Skin Exam: Dry, Intact, Warm Assessment and Plan - Assessment and Plan (Free Text) Assessment: 67 y.o. male s/p left inguinal hernia repair with mesh Plan: - Regular diet - Pain control - Insentive spirometry - DVT ppx - Out of bed and ambulate - No heavy lifting for 4 weeks - Patient will follow up with me in the office in 10 days to 2 weeks for post- op visit - Continue care as per medical team - General surgery will sign off - Please re-consult as needed
[2018-04-06] MEDS: guaiFENesin 600 mg ER Tab PO SCH (20:18)
[2018-04-07] MEDS: Oxycodone/Acetaminophen 5/325 mg Tab PO PRN ×2 (03:47→16:54)
[2018-04-07] MEDS: Albuterol-Ipratrop 3 mg / 0.5 (3 ml) UD INH SCH ×7 (04:28→23:22)
[2018-04-07] MEDS: Insulin Regular 100 units/ml SC SCH ×4 (06:49→22:04)
[2018-04-07 07:08] LABS: HEMOGLOBIN 11.4 g/dL (12.0-18.0); MEAN CELL VOLUME 81.1 fl (80.0-94.0); MEAN CORPUSCULAR HEMOGLOBIN 27.4 pg (27.0-31.0); MEAN CORPUSCULAR HGB CONC 33.8 g/dL (33.0-37.0); RBC 4.14 Mil/uL (4.40-5.90); RED CELL DISTRIBUTION WIDTH 18.6 % (11.5-14.5); WHITE BLOOD COUNT 11.1 K/uL (4.8-10.8)
[2018-04-07 07:28] LABS: BLOOD UREA NITROGEN 32 mg/dl (9-20); CALCIUM 9.1 mg/dL (8.4-10.2); GFR NON-AFRICAN AMERICAN > 60
[2018-04-07 08:08] VITALS: RESP 20
[2018-04-07] MEDS: Saccharomyces Boulardi 250 mg Cap PO SCH ×2 (08:43→16:32)
[2018-04-07] MEDS: Enoxaparin 40 mg Syringe SC SCH (08:44)
[2018-04-07] MEDS: guaiFENesin 600 mg ER Tab PO SCH ×2 (08:45→21:42)
[2018-04-07] MEDS: MethylPREDNISolone 40 mg Vial IVP SCH ×2 (08:45→21:45)
--- NOTE | 2018-04-07 10:37 | CP.PCM.DIS ---
<Sejal Cardenas - Last Filed: 04/08/18 10:53> Provider - Provider Date of Admission: 04/03/18 15:01 Attending physician: Lida Fernandes DO Primary care physician: GAHaroon Consults: General Surgery: Dr. Parker. Pulmonary- Dr. Baker Cardiology- Dr. Gorman Time Spent in preparation of Discharge (in minutes): 30 Diagnosis - Discharge Diagnosis (1) COPD exacerbation Status: Acute (2) Incarcerated left inguinal hernia Status: Acute Hospital Course - Lab Results Lab Results: Micro Results 04/01/18 21:47 Urine,Clean Catch Urine Culture - Final No Growth (<1,000 CFU/ML) Most Recent Lab Values WBC 11.1 K/uL (4.8-10.8) H 04/07/18 06:25 RBC 4.14 Mil/uL (4.40-5.90) L 04/07/18 06:25 Hgb 11.4 g/dL (12.0-18.0) L 04/07/18 06:25 Hct 33.6 % (35.0-51.0) L 04/07/18 06:25 MCV 81.1 fl (80.0-94.0) 04/07/18 06:25 MCH 27.4 pg (27.0-31.0) 04/07/18 06:25 MCHC 33.8 g/dL (33.0-37.0) 04/07/18 06:25 RDW 18.6 % (11.5-14.5) H 04/07/18 06:25 Plt Count 216 K/uL (130-400) 04/07/18 06:25 MPV 8.5 fl (7.2-11.7) 04/01/18 18:10 Neut % (Auto) 46.7 % (50.0-75.0) L 04/01/18 18:10 Lymph % (Auto) 35.9 % (20.0-40.0) 04/01/18 18:10 [place] % (Auto) 15.4 % (0.0-10.0) H 04/01/18 18:10 Eos % (Auto) 1.1 % (0.0-4.0) 04/01/18 18:10 Baso % (Auto) 0.9 % (0.0-2.0) 04/01/18 18:10 Neut # (Auto) 4.5 K/uL (1.8-7.0) 04/01/18 18:10 Lymph # (Auto) 3.5 K/uL (1.0-4.3) 04/01/18 18:10 [place] # (Auto) 1.5 K/uL (0.0-0.8) H 04/01/18 18:10 Eos # (Auto) 0.1 K/uL (0.0-0.7) 04/01/18 18:10 Baso # (Auto) 0.1 K/uL (0.0-0.2) 04/01/18 18:10 PT 11.3 Seconds (9.8-13.1) 04/05/18 06:35 INR 1.0 04/05/18 06:35 APTT 26.1 Seconds (25.6-37.1) 04/05/18 06:35 pCO2 37 mm/Hg (35-45) 04/01/18 18:07 pO2 78 mm/Hg (80-100) L 04/01/18 18:07 HCO3 27.4 mmol/L (21-28) 04/01/18 18:07 ABG pH 7.47 (7.35-7.45) H 04/01/18 18:07 ABG Total CO2 28.0 mmol/L (22-28) 04/01/18 18:07 ABG O2 Saturation 99.8 % (95-98) H 04/01/18 18:07 ABG O2 Content 15.1 ML/dL (15-23) 04/01/18 18:07 ABG Base Excess 3.2 mmol/L (-2.0-3.0) H 04/01/18 18:07 ABG Hemoglobin 11.3 g/dL (11.7-17.4) L 04/01/18 18:07 ABG Carboxyhemoglobin 2.7 % (0.5-1.5) H 04/01/18 18:07 POC ABG HHb (Measured) 0.2 % (0.0-5.0) 04/01/18 18:07 ABG Methemoglobin 2.3 % (0.0-3.0) 04/01/18 18:07 ABG O2 Capacity 15.1 mL/dL (16-24) L 04/01/18 18:07 Slim Test Yes 04/01/18 18:07 A-a O2 Difference 25.0 mm/Hg 04/01/18 18:07 Hgb O2 Saturation 94.8 % (95.0-98.0) L 04/01/18 18:07 FiO2 21.0 % 04/01/18 18:07 Sodium 135 mmol/l (132-148) 04/07/18 06:25 Potassium 5.0 MMOL/L (3.6-5.0) 04/07/18 06:25 Chloride 98 mmol/L (98-107) 04/07/18 06:25 Carbon Dioxide 34 mmol/L (22-30) H 04/07/18 06:25 Anion Gap 8 (10-20) L 04/07/18 06:25 BUN 32 mg/dl (9-20) H 04/07/18 06:25 Creatinine 1.0 mg/dl (0.8-1.5) 04/07/18 06:25 Est GFR ( Amer) > 60 04/07/18 06:25 Est GFR (Non-Af Amer) > 60 04/07/18 06:25 POC Glucose (mg/dL) 301 mg/dL (65-110) H 04/07/18 05:09 Random Glucose 289 mg/dL (75-110) H 04/07/18 06:25 Calcium 9.1 mg/dL (8.4-10.2) 04/07/18 06:25 Phosphorus 3.5 mg/dl (2.5-4.5) 04/05/18 06:35 Magnesium 1.5 MG/DL (1.6-2.3) L 04/05/18 06:35 Troponin I 0.0330 ng/mL (0.00-0.120) 04/04/18 16:10 NT-Pro-B Natriuret Pep 381 pg/ml (0-900) 04/01/18 18:10 Prostate Specific Ag 0.638 ng/ML (0.00-4.0) 04/03/18 04:38 Urine Color Yellow (YELLOW) 04/01/18 23:22 Urine Clarity Clear (Clear) 04/01/18 23:22 Urine pH 5.0 (5.0-8.0) 04/01/18 23:22 Ur Specific [place] 1.023 (1.003-1.030) 04/01/18 23: Urine Protein 100 mg/dL (NEGATIVE) 04/01/18: Urine Glucose (UA) 150 mg/dL (Normal) 04/01/18 23: Urine Ketones Negative mg/dL (NEGATIVE) 04/01/18 23: Urine Blood Negative (NEGATIVE) 04/01/18: Urine Nitrate Negative (NEGATIVE) 04/01/18 23: Urine Bilirubin Negative (NEGATIVE) 04/01/18: Urine Urobilinogen 0.2-1.0 mg/dL (0.2-1.0) 04/01/18: Ur Leukocyte Esterase Neg Chad/uL (Negative) 04/01/18: Urine RBC (Auto) 2 /hpf (0-3) 04/01/18: Urine Microscopic WBC 1 /hpf (0-5) 04/01/18: Ur Squamous Epith Cells < 1 /hpf (0-5) 04/01/18: - Hospital Course Hospital Course: 67 yr old homeless M with 30 pack year history presents to ED with complaint of SOB with chest pain, wheezing, nonproductive cough, fevers and chills worsening x 2 days. PMHx includes COPD, NIDDM type 2, HTN, PE s/p IVC filter (not on anticoagulation) and psoriasis. Patient [place] the [place] and his SOB persisted and worsened. He is not taking any medication (by mouth or inhaled). Patient reports additional symptoms including watery eyes, dysuria and malodorous urine. Denies hematuria, nausea, vomiting, diarrhea, weakness or left upper extremity pain. Chest pain is 5/10, dull ache, worsens with deep breaths. Patient sleeps in a group home or in his friends house ocassionally. PMHx: COPD, NIDDM type 2, HTN, PE s/p IVC filter-2014 (not on anticoagulation), hx of retroperitoneal hematoma (2014) and psoriasis ED course: BP 149/74 mmHg, HR 109, Temp 98.1 F, Resp rate 24, SpO2 97% on room air -CXR: no active disease -EKG: sinus tachycardia at 112 bpm, no significant ST-T changes -CBC: wnl; ABG: pH 7.47, pCO2 37, pO2 78, HCO3 27.4, O2 sat 99.8% -CMP: Na 141, K+ 3.9, CL 107, HCO3 26, AG 12, BUN 14/Cr 0.7, Est GFR > 60, troponin < 0.0120 -proBNP 381 -ED treatment: Duoneb x 3, supplemental O2-high flow via nasal cannula, Methylprednisolone 125mg IV once, Levofloxacin 500mg IV once Floor course: Patient was admitted for COPD exacerbation and placed on Solumedrol 60mg then was de-escalated to 40mg Q8H and then 40 mg BID. He was also given Duonebs Q4H ATC and Duonebs Q2h PRN for SOB. Patient was started on Azithromycin 250mg po Daily. He saturated 98% RA. Patient was noted to have a left incarcerated inguinal hernia. Surgery was consulted for repair. Pulmonology and Cardiology was then consulted as patient was at high risk given his COPD and comorbidities and he was cleared from both standpoints to undergo Left inguinal hernia repair surgery. Patient underwent surgery 04/06/18 (Dr. Parker) and tolerated procedure well. Diabetic management: HgA1C noted to be 7.3 (02/07/18) without home medications. He was started on Levemir 10 U HS as his glucose was ranging between 250-300. For hypertension, patient was restarted on Amlodipine 5mg po daily. Blood pressure was noted to be controlled afterwards. Patient stable for discharge. Will be discharged with Medrol dose pack and Amlodipine 5mg po daily. Patient was counseled on the importance of strict follow up with [facility] and Dr. Parker. Discharge Exam - Head Exam Head Exam: ATRAUMATIC, NORMAL INSPECTION, NORMOCEPHALIC - ENT Exam ENT Exam: Mucous Membranes Moist - Respiratory Exam Respiratory Exam: Wheezes (expiratory wheeze. ). absent: Chest Wall Tenderness , Decreased Breath Sounds, Rales, Respiratory Distress, Stridor - Cardiovascular Exam Cardiovascular Exam: REGULAR RHYTHM, RRR, +S1, +S2. absent: Clicks, Diastolic murmur, Gallop, JVD, Rubs, +S4, Systolic Murmur - GI/Abdominal Exam GI & Abdominal Exam: Distended (obese abdomen ), Normal Bowel Sounds, Soft. absent: Firm, Guarding, Mass, Rebound, Tenderness - Exam Exam: NORMAL INSPECTION (Left inguinal hernia repair scar- clean and non- draining, Non-erythematous. ) - Extremities Exam Extremities exam: normal inspection, pedal pulses present (+2 Dorsalis pedis ) Additional comments: Psoriasis noted on bilateral lower extremities. - Neurological Exam Neurological exam: Alert, Oriented x3 - Psychiatric Exam Psychiatric exam: Normal Affect, Normal Mood - Skin Skin Exam: Dry, Intact, Warm Discharge Plan - Discharge Medications Prescriptions: Albuterol HFA [Ventolin HFA 90 mcg/actuation (8 g)] 2 puff INH RQ4 PRN #1 inhaler PRN Reason: Shortness Of Breath amLODIPine [Norvasc] 5 mg PO DAILY #30 tab amLODIPine [Norvasc] 5 mg PO DAILY #30 tab Azithromycin [Zithromax] 250 mg PO DAILY #5 tab Fluticasone/Salmeterol 500/50 [Advair Diskus 500/50] 1 puff IH Q12 #1 dsk metFORMIN [glucOPHAGE] 500 mg PO BIDWM #60 tab Methylprednisolone [Medrol Dose Pack (21 tabs)] 4 mg PO ASDIR #21 mg Montelukast [Singulair] 10 mg PO HS #30 tab Prednisone [Deltasone] 40 mg PO DAILY 5 Days tablet - Follow Up Plan Condition: GOOD Disposition: HOME/ ROUTINE Patient education suggested?: Yes Instructions: Hernia Repair (DC), Laceration Repair With Glue (DC) Additional Instructions: follow up at [facility] on april 14 at 4pm, please arrive at 3:30pm to allow time to register. Referrals: [facility] [place] [Outside] Bradley Parker MD [Staff Provider] - Asher Baker MD [Staff Provider] - <Lida Fernandes - Last Filed: 04/08/18 18:15> Provider - Provider Date of Admission: 04/03/18 15:01 Attending physician: Lida Fernandes DO Diagnosis - Discharge Diagnosis (1) Acute exacerbation of chronic obstructive pulmonary disease Status: Acute Hospital Course - Lab Results Lab Results: Micro Results 04/01/18 21:47 Urine,Clean Catch Urine Culture - Final No Growth (<1,000 CFU/ML) Most Recent Lab Values WBC 11.1 K/uL (4.8-10.8) H 04/07/18 06:25 RBC 4.14 Mil/uL (4.40-5.90) L 04/07/18 06:25 Hgb 11.4 g/dL (12.0-18.0) L 04/07/18 06:25 Hct 33.6 % (35.0-51.0) L 04/07/18 06:25 MCV 81.1 fl (80.0-94.0) 04/07/18 06:25 MCH 27.4 pg (27.0-31.0) 04/07/18 06:25 MCHC 33.8 g/dL (33.0-37.0) 04/07/18 06:25 RDW 18.6 % (11.5-14.5) H 04/07/18 06:25 Plt Count 216 K/uL (130-400) 04/07/18 06:25 MPV 8.5 fl (7.2-11.7) 04/01/18 18:10 Neut % (Auto) 46.7 % (50.0-75.0) L 04/01/18 18:10 Lymph % (Auto) 35.9 % (20.0-40.0) 04/01/18 18:10 [place] % (Auto) 15.4 % (0.0-10.0) H 04/01/18 18:10 Eos % (Auto) 1.1 % (0.0-4.0) 04/01/18 18:10 Baso % (Auto) 0.9 % (0.0-2.0) 04/01/18 18:10 Neut # (Auto) 4.5 K/uL (1.8-7.0) 04/01/18 18:10 Lymph # (Auto) 3.5 K/uL (1.0-4.3) 04/01/18 18:10 [place] # (Auto) 1.5 K/uL (0.0-0.8) H 04/01/18 18:10 Eos # (Auto) 0.1 K/uL (0.0-0.7) 04/01/18 18:10 Baso # (Auto) 0.1 K/uL (0.0-0.2) 04/01/18 18:10 PT 11.3 Seconds (9.8-13.1) 04/05/18 06:35 INR 1.0 04/05/18 06:35 APTT 26.1 Seconds (25.6-37.1) 04/05/18 06:35 pCO2 37 mm/Hg (35-45) 04/01/18 18:07 pO2 78 mm/Hg (80-100) L 04/01/18 18:07 HCO3 27.4 mmol/L (21-28) 04/01/18 18:07 ABG pH 7.47 (7.35-7.45) H 04/01/18 18:07 ABG Total CO2 28.0 mmol/L (22-28) 04/01/18 18:07 ABG O2 Saturation 99.8 % (95-98) H 04/01/18 18:07 ABG O2 Content 15.1 ML/dL (15-23) 04/01/18 18:07 ABG Base Excess 3.2 mmol/L (-2.0-3.0) H 04/01/18 18:07 ABG Hemoglobin 11.3 g/dL (11.7-17.4) L 04/01/18 18:07 ABG Carboxyhemoglobin 2.7 % (0.5-1.5) H 04/01/18 18:07 POC ABG HHb (Measured) 0.2 % (0.0-5.0) 04/01/18 18:07 ABG Methemoglobin 2.3 % (0.0-3.0) 04/01/18 18:07 ABG O2 Capacity 15.1 mL/dL (16-24) L 04/01/18 18:07 Slim Test Yes 04/01/18 18:07 A-a O2 Difference 25.0 mm/Hg 04/01/18 18:07 Hgb O2 Saturation 94.8 % (95.0-98.0) L 04/01/18 18:07 FiO2 21.0 % 04/01/18 18:07 Sodium 136 mmol/l (132-148) 04/08/18 06:10 Potassium 4.6 MMOL/L (3.6-5.0) 04/08/18 06:10 Chloride 99 mmol/L (98-107) 04/08/18 06:10 Carbon Dioxide 31 mmol/L (22-30) H 04/08/18 06:10 Anion Gap 11 (10-20) 04/08/18 06:10 BUN 32 mg/dl (9-20) H 04/08/18 06:10 Creatinine 0.7 mg/dl (0.8-1.5) L 04/08/18 06:10 Est GFR ( Amer) > 60 04/08/18 06:10 Est GFR (Non-Af Amer) > 60 04/08/18 06:10 POC Glucose (mg/dL) 277 mg/dL (65-110) H 04/08/18 11:31 Random Glucose 278 mg/dL (75-110) H 04/08/18 06:10 Calcium 9.2 mg/dL (8.4-10.2) 04/08/18 06:10 Phosphorus 3.5 mg/dl (2.5-4.5) 04/05/18 06:35 Magnesium 1.5 MG/DL (1.6-2.3) L 04/05/18 06:35 Troponin I 0.0330 ng/mL (0.00-0.120) 04/04/18 16:10 NT-Pro-B Natriuret Pep 381 pg/ml (0-900) 04/01/18 18:10 Prostate Specific Ag 0.638 ng/ML (0.00-4.0) 04/03/18 04:38 Urine Color Yellow (YELLOW) 04/01/18 23:22 Urine Clarity Clear (Clear) 04/01/18 23:22 Urine pH 5.0 (5.0-8.0) 04/01/18 23:22 Ur Specific [place] 1.023 (1.003-1.030) 04/01/18 23:22 Urine Protein 100 mg/dL (NEGATIVE) 04/01/18 23:22 Urine Glucose (UA) 150 mg/dL (Normal) 04/01/18 23:22 Urine Ketones Negative mg/dL (NEGATIVE) 04/01/18 23:22 Urine Blood Negative (NEGATIVE) 04/01/18 23:22 Urine Nitrate Negative (NEGATIVE) 04/01/18 23:22 Urine Bilirubin Negative (NEGATIVE) 04/01/18 23:22 Urine Urobilinogen 0.2-1.0 mg/dL (0.2-1.0) 04/01/18 23:22 Ur Leukocyte Esterase Neg Chad/uL (Negative) 04/01/18 23:22 Urine RBC (Auto) 2 /hpf (0-3) 04/01/18 23:22 Urine Microscopic WBC 1 /hpf (0-5) 04/01/18 23:22 Ur Squamous Epith Cells < 1 /hpf (0-5) 04/01/18 23:22
--- NOTE | 2018-04-07 11:15 | CP.PCM.PN ---
<Sejal Cardenas - Last Filed: 04/07/18 11:16> Subjective - Date & Time of Evaluation Date of Evaluation: 04/07/18 Time of Evaluation: 09:00 - Subjective Subjective: Patient stable for discharge but refused to go home as he does not have a place to stay until tomorrow. He reports that he will be staying with a friend but cannot go to his friends house until tomorrow. Denies any active complaints at this time. Objective - Vital Signs/Intake and Output Vital Signs (last 24 hours): Temp Pulse Resp BP Pulse Ox 97.9 F 75 20 135/77 100 04/07/18 08:07 04/07/18 08:07 04/07/18 08:07 04/07/18 08:07 04/07/18 08:07 Intake and Output: 04/07/18 04/07/18 06:59 18:59 Output Total 1200 Balance -1200 - Medications Medications: Current Medications Acetaminophen (Tylenol 325mg Tab) 650 mg PO Q6 PRN PRN Reason: Pain, moderate (4-7) Albuterol/Ipratropium (Duoneb 3 Mg/0.5 Mg (3 Ml) Ud) 3 ml INH RQ2 PRN PRN Reason: Shortness of Breath Last Admin: 04/05/18 19:08 Dose: 3 ml Albuterol/Ipratropium (Duoneb 3 Mg/0.5 Mg (3 Ml) Ud) 3 ml INH RQ3 JEFFREY Last Admin: 04/07/18 11:05 Dose: 3 ml Amlodipine Besylate (Norvasc) 5 mg PO DAILY [facility] Last Admin: 04/07/18 08:45 Dose: 5 mg Artificial Tears (Artificial Tears) 2 drop OU Q6 PRN PRN Reason: Dry eyes Last Admin: 04/06/18 09:27 Dose: 2 drop Azithromycin (Zithromax) 250 mg PO DAILY [facility] Last Admin: 04/07/18 08:46 Dose: 250 mg Dextrose (Dextrose 50% Inj) 0 ml IV STAT PRN; Protocol PRN Reason: Hypoglycemia Protocol Dextrose (Glutose 15) 0 gm PO ONCE PRN; Protocol PRN Reason: Hypoglycemia Protocol Enoxaparin Sodium (Lovenox) 40 mg SC DAILY JEFFREY PRN Reason: Protocol Last Admin: 04/07/18 08:44 Dose: 40 mg Glucagon (Glucagen Diagnostic Kit) 0 mg IM STAT PRN; Protocol PRN Reason: Hypoglycemia Protocol Guaifenesin (Mucinex La) 600 mg PO Q12 [facility] Last Admin: 04/07/18 08:45 Dose: 600 mg Insulin Detemir (Levemir) 10 units SC [facility] Last Admin: 04/06/18 21:42 Dose: 10 units Insulin Human Regular (Humulin R) 0 units SC [facility] PRN Reason: Protocol Last Admin: 04/07/18 06:49 Dose: 6 units Lactic Acid (Lac-Hydrin 12% Lotion (225 G)) 1 applic TOP TID [facility] Last Admin: 04/07/18 08:43 Dose: 1 applic Metformin HCl (Glucophage) 1,000 mg PO BIDWM [facility] Last Admin: 04/07/18 08:43 Dose: 1,000 mg Methylprednisolone (Solu-Medrol) 40 mg IVP Q12 [facility] Last Admin: 04/07/18 08:45 Dose: 40 mg Metoprolol Tartrate (Lopressor) 12.5 mg PO Q12 [facility] Last Admin: 04/07/18 08:44 Dose: 12.5 mg Montelukast Sodium (Singulair) 10 mg PO [facility] Last Admin: 04/06/18 21:42 Dose: 10 mg Morphine Sulfate (Morphine) 2 mg IVP Q4 PRN PRN Reason: Pain, severe (8-10) Last Admin: 04/06/18 03:40 Dose: 2 mg Oxycodone/Acetaminophen (Percocet 5/325 Mg Tab) 1 tab PO Q4 PRN PRN Reason: Pain, Mild (1-3) Stop: 04/08/18 18:57 Oxycodone/Acetaminophen (Percocet 5/325 Mg Tab) 2 tab PO Q4 PRN PRN Reason: Pain, moderate (4-7) Stop: 04/08/18 18:57 Last Admin: 04/07/18 03:47 Dose: 2 tab Saccharomyces Boulardii (Florastor) 250 mg PO BID [facility] Last Admin: 04/07/18 08:43 Dose: 250 mg - Labs Labs: 04/07/18 06:25 04/07/18 06:25 PT 11.3 Seconds (9.8-13.1) 04/05/18 06:35 INR 1.0 04/05/18 06:35 APTT 26.1 Seconds (25.6-37.1) 04/05/18 06:35 - Constitutional Appears: Well, Non-toxic, No Acute Distress - ENT Exam ENT Exam: Mucous Membranes Moist - Respiratory Exam Respiratory Exam: Wheezes (Expiratory wheeze. ). absent: Decreased Breath Sounds, Prolonged Expiratory Phase, Rales, Rhonchi, Respiratory Distress, Stridor - Cardiovascular Exam Cardiovascular Exam: REGULAR RHYTHM, +S1, +S2. absent: Gallop, JVD, Rubs, +S4, Murmur - GI/Abdominal Exam GI & Abdominal Exam: Distended (obese abdomen), Soft, Normal Bowel Sounds. absent: Guarding, Rigid, Tenderness, Hernia, Mass, Organomegaly, Rebound - Exam Additional comments: Left Inguinal hernia repair incision site clean, dry and non-draining. Non- erythematous. - Extremities Exam Extremities Exam: Normal Inspection. absent: Calf Tenderness Additional comments: Bilateral extremity psoriasis present. - Neurological Exam Neurological Exam: Alert, Awake - Psychiatric Exam Psychiatric exam: Normal Affect, Normal Mood - Skin Skin Exam: Dry, Intact, Normal Color, Warm Assessment and Plan (1) COPD exacerbation Status: Acute (2) Incarcerated left inguinal hernia Status: Acute - Assessment and Plan (Free Text) Assessment: 67 yr old Male with PMHx COPD, NIDDM type 2, HTN, PE s/p IVC filter-2014 (not on anticoagulation), hx of retroperitoneal hematoma (2014) and psoriasis admitted for acute COPD exacerbation and chest pain and found to have non- reducible inguinal hernia on physical exam is now s/p Left inguinal hernia repair with plug & patch mesh. Plan: 1. Acute COPD exacerbation -acute on chronic -CXR: no active disease -Continue Methylprednisolone 40mg Q12h. -Duo-nebs Q3h JEFFREY; Duonebs Q2 PRN for SOB -c/w Azithromycin 250mg PO QD -Patient is now on NC 2L. Saturates 99% on RA. - Mucinex LA 600mg BID added for expectorant 2. Incarcerated Inguinal hernia S/P Repair of Left ingunial hernia with plug & patch mesh - Patient tolerated procedure well. - Analgesics/ anti-emetics PRN - Monitor Bowel function. - currently on heart healthy diet. 3. Chest pain (resolved) -Acute, likely due to coughing vs r/o ACS -troponin negative x 1 -EKG: sinus tachycardia - ECHO 11/2017: Mild -moderate Mitral regurgitation. Echogenic body attached to the aortic valve- unchanged from previous study 04/2017. 4. NIDDM Type 2 -chronic, uncontrolled -Recent glucose readings ranging 277-320 possibly secondary to solumedrol. -HbA1c 7.3 on 02/07/18 -not on any home medications -POC glucose ACHS -Moderate dose regular insulin coverage scale - Continue Levemir 10 U HS. - Continue Metformin - Continue to monitor Glucose levels. 5. Hypomagnesemia - Resolved. 6. History of Hypertension -chronic, controlled -Amlodipine 5mg po Daily. -monitor BP 7. Psoriasis -chronic -Lac-hydrin 12% lotion TOP TID to legs and arms BID 8. Hx PE -chronic-2015 -has IVC filter 9. DVT Prophylaxis -Lovenox 40 mg SC Daily. <Muriel Lamas - Last Filed: 04/07/18 17:24> Objective - Vital Signs/Intake and Output Vital Signs (last 24 hours): Temp Pulse Resp BP Pulse Ox 98.1 F 91 H 20 135/74 99 04/07/18 16:42 04/07/18 16:42 04/07/18 16:42 04/07/18 16:42 04/07/18 16:42 Intake and Output: 04/07/18 04/07/18 06:59 18:59 Output Total 1200 Balance -1200 - Medications Medications: Current Medications Acetaminophen (Tylenol 325mg Tab) 650 mg PO Q6 PRN PRN Reason: Pain, moderate (4-7) Albuterol/Ipratropium (Duoneb 3 Mg/0.5 Mg (3 Ml) Ud) 3 ml INH RQ2 PRN PRN Reason: Shortness of Breath Last Admin: 04/05/18 19:08 Dose: 3 ml Albuterol/Ipratropium (Duoneb 3 Mg/0.5 Mg (3 Ml) Ud) 3 ml INH RQ3 JEFFREY Last Admin: 04/07/18 16:56 Dose: 3 ml Amlodipine Besylate (Norvasc) 5 mg PO DAILY JEFFREY Last Admin: 04/07/18 08:45 Dose: 5 mg Artificial Tears (Artificial Tears) 2 drop OU Q6 PRN PRN Reason: Dry eyes Last Admin: 04/06/18 09:27 Dose: 2 drop Azithromycin (Zithromax) 250 mg PO DAILY [facility] Last Admin: 04/07/18 08:46 Dose: 250 mg Dextrose (Dextrose 50% Inj) 0 ml IV STAT PRN; Protocol PRN Reason: Hypoglycemia Protocol Dextrose (Glutose 15) 0 gm PO ONCE PRN; Protocol PRN Reason: Hypoglycemia Protocol Enoxaparin Sodium (Lovenox) 40 mg SC DAILY JEFFREY PRN Reason: Protocol Last Admin: 04/07/18 08:44 Dose: 40 mg Glucagon (Glucagen Diagnostic Kit) 0 mg IM STAT PRN; Protocol PRN Reason: Hypoglycemia Protocol Guaifenesin (Mucinex La) 600 mg PO Q12 [facility] Last Admin: 04/07/18 08:45 Dose: 600 mg Insulin Detemir (Levemir) 10 units SC [facility] Last Admin: 04/06/18 21:42 Dose: 10 units Insulin Human Regular (Humulin R) 0 units SC [facility] PRN Reason: Protocol Last Admin: 04/07/18 16:32 Dose: 4 units Lactic Acid (Lac-Hydrin 12% Lotion (225 G)) 1 applic TOP TID [facility] Last Admin: 04/07/18 16:33 Dose: 1 applic Metformin HCl (Glucophage) 1,000 mg PO BIDWM [facility] Last Admin: 04/07/18 16:32 Dose: 1,000 mg Methylprednisolone (Solu-Medrol) 40 mg IVP Q12 [facility] Last Admin: 04/07/18 08:45 Dose: 40 mg Metoprolol Tartrate (Lopressor) 12.5 mg PO Q12 [facility] Last Admin: 04/07/18 08:44 Dose: 12.5 mg Montelukast Sodium (Singulair) 10 mg PO [facility] Last Admin: 04/06/18 21:42 Dose: 10 mg Morphine Sulfate (Morphine) 2 mg IVP Q4 PRN PRN Reason: Pain, severe (8-10) Last Admin: 04/06/18 03:40 Dose: 2 mg Oxycodone/Acetaminophen (Percocet 5/325 Mg Tab) 1 tab PO Q4 PRN PRN Reason: Pain, Mild (1-3) Stop: 04/08/18 18:57 Oxycodone/Acetaminophen (Percocet 5/325 Mg Tab) 2 tab PO Q4 PRN PRN Reason: Pain, moderate (4-7) Stop: 04/08/18 18:57 Last Admin: 04/07/18 16:54 Dose: 2 tab Saccharomyces Boulardii (Florastor) 250 mg PO BID JEFFREY Last Admin: 04/07/18 16:32 Dose: 250 mg - Labs Labs: 04/07/18 06:25 04/07/18 06:25 PT 11.3 Seconds (9.8-13.1) 04/05/18 06:35 INR 1.0 04/05/18 06:35 APTT 26.1 Seconds (25.6-37.1) 04/05/18 06:35 Attending/Attestation - Attestation I have personally seen and examined this patient.: Yes I have fully participated in the care of the patient.: Yes I have reviewed all pertinent clinical information, including history, physical exam and plan: Yes
[2018-04-07] MEDS ORDERED: Insulin Detemir 100 Units/ml Inj SC SCH (17:26)
[2018-04-08 00:16] VITALS: O2SAT 96
[2018-04-08] MEDS: Albuterol-Ipratrop 3 mg / 0.5 (3 ml) UD INH SCH ×5 (02:17→13:38)
[2018-04-08 06:39] LABS: BLOOD UREA NITROGEN 32 mg/dl (9-20); CALCIUM 9.2 mg/dL (8.4-10.2); GFR NON-AFRICAN AMERICAN > 60
[2018-04-08 08:29] VITALS: BP 126/60; PULSE 109; TEMP 97.7
[2018-04-08] MEDS: MethylPREDNISolone 40 mg Vial IVP SCH (08:44)
[2018-04-08] MEDS: Insulin Regular 100 units/ml SC SCH ×2 (08:45→12:28)
[2018-04-08] MEDS: guaiFENesin 600 mg ER Tab PO SCH (08:46)
[2018-04-08] MEDS: Saccharomyces Boulardi 250 mg Cap PO SCH (08:47)
[2018-04-08] MEDS: Enoxaparin 40 mg Syringe SC SCH (08:48)
== END 2018-04-08 15:50 | disposition home or self-care (01) | DRG 161 ==
LOC: H.ER 16:25 → H.ERHOLD 20:06 → H.MEDSURG1 23:58 → OBSVTOIN 04-03 15:01 → H.MEDSURG1 04-03 15:47
PROVIDERS: ADMIT Student in an Organized Health Care Education/Training Program; ATTEND Student in an Organized Health Care Education/Training Program
PROC: 0VBG0ZZ Excision of Left Spermatic Cord, Open Approach (ICD-10-PCS; 2018-04-05)
PROC: 0YU60JZ Supplement Left Inguinal Region with Synthetic Substitute, Open Approach (ICD-10-PCS; principal; 2018-04-05 12:00)
DX: K40.30 Unilateral inguinal hernia, with obstruction, without gangrene, not specified as recurrent (principal); J44.1 Chronic obstructive pulmonary disease with (acute) exacerbation; E11.65 Type 2 diabetes mellitus with hyperglycemia; I50.9 Heart failure, unspecified; I11.0 Hypertensive heart disease with heart failure; L40.9 Psoriasis, unspecified; Z59.0 Homelessness; Z86.711 Personal history of pulmonary embolism; Z87.891 Personal history of nicotine dependence; R00.0 Tachycardia, unspecified; E78.00 Pure hypercholesterolemia, unspecified; R07.89 Other chest pain; T38.0X5A Adverse effect of glucocorticoids and synthetic analogues, initial encounter; R30.0 Dysuria; E83.42 Hypomagnesemia; D17.6 Benign lipomatous neoplasm of spermatic cord

== ENCOUNTER 2018-04-15 16:30 | Observation (INO) | payer SELFPAY ==
[2018-04-15 16:30] VITALS: BMI 27.5
[2018-04-15] MEDS ORDERED: Albuterol-Ipratrop 3 mg / 0.5 (3 ml) UD INH STA (16:58)
--- NOTE | 2018-04-15 17:01 | ED PDOC ---
HPI: Chest Pain Time Seen by Provider: 04/15/18 16:49 Chief Complaint (Nursing): Chest Pain Chief Complaint (Provider): Chest Pain Onset/Duration Of Symptoms: Other (prior to arrival ) Current Symptoms Are (Timing): Still Present Additional Complaint(s): Preet Brown is a 67 year old male who has a past medical history of COPD, asthma, CHF, Pneumonia, PE, diabetes and hypertension, who presents to the emergency department complaining of shortness of breath, cough, left sided chest pain and dizziness onset prior to arrival. Patient also reports a sore throat and difficulty swallowing ongoing for x2 days. He reported not taking treatment at home and denies any known allergies. He reports chills but denies any fever, nausea, vomit, diarrhea, headache or other medical complaints. PMD: No Provider Past Medical History Reviewed: Historical Data, Nursing Documentation, Vital Signs Vital Signs: Last Vital Signs Temp 97.4 F L 04/15/18 16:35 Pulse 103 H 04/15/18 16:35 Resp 27 H 04/15/18 16:35 BP 126/72 04/15/18 16:35 Pulse Ox 100 04/15/18 16:35 - Medical History PMH: Asthma, CHF, COPD, Diabetes, HTN, Hypercholesterolemia, Pneumonia, Pulmonary Embolism Denies: HIV, Chronic Kidney Disease - Surgical History Surgical History: No Surg Hx - Family History Family History: States: [place], Diabetes - Social History Current smoker - smoking cessation education provided: No - Immunization History Hx Tetanus Toxoid Vaccination: No Hx Influenza Vaccination: No Hx Pneumococcal Vaccination: No - Home Medications Home Medications: Ambulatory Orders Medication Instructions Recorded Fluticasone Propionate [Flonase] 2 spr VADIM DAILY bottle 03/08/18 Acetaminophen [Tylenol 325mg tab] 650 mg PO Q6 PRN tab 04/04/18 Albuterol HFA [Ventolin HFA 90 2 puff INH RQ4 PRN #1 inhaler 04/04/18 mcg/actuation (8 g)] Albuterol/Ipratropium [Duoneb 3 3 ml INH RQ4 neb 04/04/18 mg/0.5 mg (3 ml) UD] Ammonium Lactate 12% [Lac-Hydrin 1 applic TOP TID bottle 04/04/18 12% Lotion (225 g)] Fluticasone/Salmeterol 500/50 1 puff IH Q12 #1 dsk 04/04/18 [Advair Diskus 500/50] Montelukast [Singulair] 10 mg PO HS #30 tab 04/04/18 metFORMIN [glucOPHAGE] 500 mg PO BIDWM #60 tab 04/04/18 Prednisone [Deltasone] 40 mg PO DAILY 5 Days tablet 04/08/18 amLODIPine [Norvasc] 5 mg PO DAILY #30 tab 04/08/18 - Allergies Allergies/Adverse Reactions: Allergies Allergy/AdvReac Type Severity Reaction Status Date / Time No Known Allergies Allergy Verified 04/01/18 16:38 Review of Systems ROS Statement: Except As Marked, All Systems Reviewed And Found Negative Constitutional: Positive for: Chills. Negative for: Fever ENT: Positive for: Throat Pain (difficulty swallowing ) Cardiovascular: Positive for: Chest Pain Respiratory: Positive for: Cough, Shortness of Breath Gastrointestinal: Negative for: Nausea, Vomiting, Diarrhea Neurological: Positive for: Dizziness. Negative for: Headache Physical Exam - Reviewed Nursing Documentation Reviewed: Yes Vital Signs Reviewed: Yes - Physical Exam Appears: Positive for: In Acute Distress Head Exam: Positive for: ATRAUMATIC, NORMOCEPHALIC Skin: Positive for: Normal Color, Warm, Dry Eye Exam: Positive for: Normal appearance, EOMI, PERRL ENT: Positive for: Normal ENT Inspection Neck: Positive for: Normal, Painless ROM, Supple Cardiovascular/Chest: Positive for: Regular Rate, Rhythm. Negative for: Murmur Respiratory: Positive for: Wheezing (Bilateral ). Negative for: Respiratory Distress (Can speak in full sentences) Gastrointestinal/Abdominal: Positive for: Normal Exam, Soft. Negative for: Tenderness Back: Positive for: Normal Inspection. Negative for: L CVA Tenderness, R CVA Tenderness Extremity: Positive for: Normal ROM. Negative for: Calf Tenderness, Deformity, Swelling Neurologic/Psych: Positive for: Alert, Oriented (x3). Negative for: Motor/Sensory Deficits - ECG O2 Sat by Pulse Oximetry: 100 (RA) Pulse Ox Interpretation: Normal Medical Decision Making Medical Decision Making: Time: 16:49 Impression: COPD Initial Plan: --CMP --Troponin --CBC with differential --PTT --Prothrombin Time [COAG] Stat --Chest Portable [RAD} stat --[Duoneb 3 mg/0.5 mg (3 ml) UD 3ml INH STAT STA --[SOLU-Medrol] 125 mg IVP STAT STA --BLOOD CULTURE STAT --Peak Flow Pre/Post tx --Influenza A B Stat --Rapid Strep Group A Antigen STAT Scribe Attestation: Documented by Luisito Benjamin & Fazal Mccray, acting as a scribe for Ana Baxter MD. Provider Scribe Attestation: All medical record entries made by the Scribe were at my direction and personally dictated by me. I have reviewed the chart and agree that the record accurately reflects my personal performance of the history, physical exam, medical decision making, and the department course for this patient. I have also personally directed, reviewed, and agree with the discharge instructions and disposition. Disposition - Disposition Forms: [employer] (Slovenian)
[2018-04-15] MEDS ORDERED: Albuterol-Ipratrop 3 mg / 0.5 (3 ml) UD ONE (17:07)
[2018-04-15 17:23] LABS: BASO # 0.1 K/uL (0.0-0.2); BASO % 0.5 % (0.0-2.0); HEMOGLOBIN 11.8 g/dL (12.0-18.0); LYMPH # 2.6 K/uL (1.0-4.3); LYMPH % 13.8 % (20.0-40.0); MEAN CELL VOLUME 82.6 fl (80.0-94.0); MEAN CORPUSCULAR HEMOGLOBIN 26.8 pg (27.0-31.0); MEAN CORPUSCULAR HGB CONC 32.4 g/dL (33.0-37.0); MEAN PLATELET VOLUME 8.6 fl (7.2-11.7); MONO # 1.2 K/uL (0.0-0.8); MONO % 6.2 % (0.0-10.0); NEUT # 14.9 K/uL (1.8-7.0); NEUT % 79.5 % (50.0-75.0); NRBC % 0.1 % (0.0-0.0); RBC 4.4 Mil/uL (4.40-5.90); RED CELL DISTRIBUTION WIDTH 19.4 % (11.5-14.5); WHITE BLOOD COUNT 18.8 K/uL (4.8-10.8)
[2018-04-15 17:29] LABS: PROTHROMBIN TIME 11.1 Seconds (9.8-13.1)
[2018-04-15 17:32] LABS: PARTIAL THROMBOPLASTIN TIME 23.8 Seconds (25.6-37.1)
[2018-04-15 18:09] LABS: ALB/GLOB RATIO 1.2 (1.0-2.1); ALBUMIN 3.5 g/dL (3.5-5.0); ALT/SGPT 30 U/L (21-72); AST/SGOT 22 U/L (17-59); BLOOD UREA NITROGEN 48 mg/dl (9-20); CALCIUM 8.7 mg/dL (8.4-10.2); GFR NON-AFRICAN AMERICAN 51
--- NOTE | 2018-04-15 18:16 | RAD ---
Date of service: 04/15/2018 HISTORY: SOB COMPARISON: Chest radiograph dated 04/01/2018. FINDINGS: LUNGS: No active pulmonary disease. Left basilar scarring. PLEURA: No significant pleural effusion identified, no pneumothorax apparent. CARDIOVASCULAR: Atherosclerotic aortic calcifications. Cardiomediastinal silhouette stably prominent OSSEOUS STRUCTURES: Unchanged. VISUALIZED UPPER ABDOMEN: Normal. OTHER FINDINGS: None. IMPRESSION: No active disease.
--- NOTE | 2018-04-15 23:31 | CP.PCM.HP ---
History of Present Illness - History of Present Illness History of Present Illness: CC: Dyspnea and chest pain HPI: 67 y/o man w/ pmh of COPD, NIDDM type 2, HTN, PE s/p IVC filter (not on anticoagulation) and psoriasis presents to ED with complaint of SOB with chest pain, wheezing, nonproductive cough, chills worsening x 2 days. Patient also report sore throat. Patient reports he was outside and his SOB persisted and worsened. He is not taking any medication (by mouth or inhaled). Patient denies fever, hematuria, nausea, vomiting, diarrhea, weakness or left upper extremity pain. Chest pain is a dull ache, worsens with deep breaths. Patient sleeps in a retirement or in his friends house during the week. ED course: - vitals: 97.7 F, 90 beats/min, BP 165/70 mmHg, resp rate 20, O2 99% room air - CBC: 18.8>11.8/36.4 - coags: PT 11.1, INR 1.0, aPTT 23.8 - CMP: 140/4.6, 103/28, 48/1.4, glucose 221, AST 22, ALT 30, alk phos 60 - troponin: 0.0250 - CXR: no active disease - EKG: sinus tachycardia at 102 bpm, no significant ST-T changes - Duoneb x1 - Methylprednisolone 125mg IV once PMD: None (patient has missed all appointments at [facility], has not gone once) PMH: COPD, NIDDM type 2, HTN, PE s/p IVC filter-2014 (not on anticoagulation), hx of retroperitoneal hematoma (2014) and psoriasis Medications: none Allergies: NKDA PSH: IVC filter Fam: no family hx of heart disease or cancer, sister has diabetes SOC: former smoker (30 pack years, quit 1 yr ago), former Etoh abuse (last drink in 04/2017), denies drug use; is homeless, sometimes sleeps in his friends house Present on Admission - Present on Admission Any Indicators Present on Admission: Yes History of DVT/PE: Yes History of Uncontrolled Diabetes: Yes Urinary Catheter: No Decubitus Ulcer Present: No Review of Systems - Review of Systems All systems: reviewed and no additional remarkable complaints except - Constitutional Constitutional: As Per HPI, Chills. absent: Fever, Headache - EENT Eyes: absent: Change in Vision - Cardiovascular Cardiovascular: As Per HPI, Chest Pain - Respiratory Respiratory: As Per HPI, Dyspnea - Gastrointestinal Gastrointestinal: absent: Abdominal Pain, Diarrhea, Nausea, Vomiting - Genitourinary Genitourinary: absent: Dysuria - Integumentary Integumentary: absent: Rash Past Patient History - Infectious Disease Hx of Infectious Diseases: None - Tetanus Immunizations Tetanus Immunization: Unknown - Past Medical History & Family History Past Medical History?: Yes - Past Social History Smoking Status: Former Smoker - CARDIAC Hx Congestive Heart Failure: Yes Hx Hypercholesterolemia: Yes Hx Hypertension: Yes - PULMONARY Hx Asthma: Yes Hx Chronic Obstructive Pulmonary Disease (COPD): Yes Hx Pneumonia: Yes Hx Pulmonary Embolism: Yes - NEUROLOGICAL Hx Neurological Disorder: No - HEENT Hx HEENT Problems: No - RENAL Hx Chronic Kidney Disease: No - ENDOCRINE/METABOLIC Hx Endocrine Disorders: Yes Hx Diabetes Mellitus Type 2: Yes - HEMATOLOGICAL/ONCOLOGICAL Hx Human Immunodeficiency Virus (HIV): No - INTEGUMENTARY Hx Dermatological Problems: Yes (GENERALIZED SKIN PSORIASIS) - MUSCULOSKELETAL/RHEUMATOLOGICAL Hx Falls: No - GASTROINTESTINAL Hx Gastrointestinal Disorders: Yes Other/Comment: GI bleeding - GENITOURINARY/GYNECOLOGICAL Hx Genitourinary Disorders: No - PSYCHIATRIC Hx Psychophysiologic Disorder: No Hx Substance Use: No - SURGICAL HISTORY Hx Surgeries: Yes Other/Comment: IVC Filter - ANESTHESIA Hx Anesthesia: Yes Hx Anesthesia Reactions: No Hx Malignant Hyperthermia: No Meds Allergies/Adverse Reactions: Allergies Allergy/AdvReac Type Severity Reaction Status Date / Time No Known Allergies Allergy Verified 04/01/18 16:38 Physical Exam - Constitutional Appears: Non-toxic, No Acute Distress - Head Exam Head Exam: ATRAUMATIC, NORMAL INSPECTION, NORMOCEPHALIC - Eye Exam Eye Exam: Normal appearance - ENT Exam ENT Exam: Mucous Membranes Moist - Neck Exam Neck exam: Positive for: Full Rom. Negative for: Tenderness - Respiratory Exam Respiratory Exam: Decreased Breath Sounds, Wheezes (diffuse scattered). absent: Accessory Muscle Use, Rales, Rhonchi, Respiratory Distress - Cardiovascular Exam Cardiovascular Exam: REGULAR RHYTHM. absent: Tachycardia - GI/Abdominal Exam GI & Abdominal Exam: Normal Bowel Sounds, Soft. absent: Distended, Tenderness - Extremities Exam Extremities exam: Negative for: calf tenderness, pedal edema, tenderness - Neurological Exam Neurological exam: Alert, Oriented x3 - Skin Skin Exam: Dry, Intact, Warm Results - Vital Signs Recent Vital Signs: Last Vital Signs Temp 98.3 F 04/15/18 19:31 Pulse 80 04/15/18 19:21 Resp 17 04/15/18 19:21 BP 127/68 04/15/18 19:31 Pulse Ox 97 04/15/18 19:21 - Labs Result Diagrams: 04/15/18 17:18 04/15/18 17:18 Labs: Laboratory Results - last 24 hr 04/15/18 04/15/18 04/15/18 17:18 17:18 17:18 WBC 18.8 H D RBC 4.40 Hgb 11.8 L Hct 36.4 MCV 82.6 MCH 26.8 L MCHC 32.4 L RDW 19.4 H Plt Count 237 MPV 8.6 Neut % (Auto) 79.5 H Lymph % (Auto) 13.8 L [place] % (Auto) 6.2 Eos % (Auto) 0.0 Baso % (Auto) 0.5 Neut # (Auto) 14.9 H Lymph # (Auto) 2.6 [place] # (Auto) 1.2 H Eos # (Auto) 0.0 Baso # (Auto) 0.1 PT INR APTT Sodium 140 Potassium 4.6 Chloride 103 Carbon Dioxide 28 Anion Gap 14 BUN 48 H Creatinine 1.4 Est GFR ( Amer) > 60 Est GFR (Non-Af Amer) 51 Random Glucose 221 H Calcium 8.7 Total Bilirubin 0.4 AST 22 ALT 30 Alkaline Phosphatase 60 Troponin I 0.0250 Total Protein 6.5 Albumin 3.5 Globulin 3.0 Albumin/Globulin Ratio 1.2 Influenza Typ A,B (EIA) Grp A Beta Strep Ag Negative 04/15/18 04/15/18 17:18 17:18 WBC RBC Hgb Hct MCV MCH MCHC RDW Plt Count MPV Neut % (Auto) Lymph % (Auto) [place] % (Auto) Eos % (Auto) Baso % (Auto) Neut # (Auto) Lymph # (Auto) [place] # (Auto) Eos # (Auto) Baso # (Auto) PT 11.1 INR 1.0 APTT 23.8 L Sodium Potassium Chloride Carbon Dioxide Anion Gap BUN Creatinine Est GFR ( Amer) Est GFR (Non-Af Amer) Random Glucose Calcium Total Bilirubin AST ALT Alkaline Phosphatase Troponin I Total Protein Albumin Globulin Albumin/Globulin Ratio Influenza Typ A,B (EIA) Negative for flu a/b Grp A Beta Strep Ag Assessment & Plan (1) Dyspnea Status: Acute (2) Chest pain Status: Acute (3) COPD (chronic obstructive pulmonary disease) Status: Chronic (4) Hx pulmonary embolism Status: Chronic (5) DM2 (diabetes mellitus, type 2) Status: Chronic (6) HTN (hypertension) Status: Chronic (7) Psoriasis Status: Chronic - Assessment and Plan (Free Text) Assessment: 67 y/o man w/ pmh of COPD, NIDDM type 2, HTN, PE s/p IVC filter (not on anticoagulation) and psoriasis presents to ED with complaint of SOB with chest pain, wheezing, nonproductive cough, chills worsening x 2 days Plan: Dyspnea - most likely acute on chronic COPD exacerbation - vital signs stable; 97.7 F, 90 beats/min, BP 165/70 mmHg, resp rate 20, O2 99% room air - CBC: 18.8>11.8/36.4 - coags: PT 11.1, INR 1.0, aPTT 23.8 - CMP: 140/4.6, 103/28, 48/1.4, glucose 221, AST 22, ALT 30, alk phos 60 - troponin: 0.0250 - CXR: no active disease - EKG: sinus tachycardia at 102 bpm, no significant ST-T changes - Duoneb x1 - Methylprednisolone 125mg IV once - f/u CBC, CMP - f/u ABG - duoneb Q4h prn - solu-medrol 40 mg IV Q12h - azithromycin 500 mg IV daily - monitor for acute changes - admit to tele Chest pain - most likely associated w/ cough and COPD exacerbation r/o aCS - troponin: 0.0250 - f/u troponin x2 - f/u repeat EKG - monitor for acute changes COPD - poor adherence to medication - c/w ventolin, flonase, advair, singulair - monitor for acute changes Hx of PE - s/p IVC filter - not on anticoagulation DM2 - uncontrolled - poor adherence to medication - c/w metformin - insulin correction scale - hypoglycemic protocol HTN - BP elevated - c/w norvasc Psoriasis - chronic - c/w lac-hydrin Prophylactic measures - DVT: lovenox 40 mg SC daily
[2018-04-16] MEDS ORDERED: Albuterol HFA 90 mcg/actuation (8 g) INH PRN (00:07)
[2018-04-16] MEDS ORDERED: Dextrose 50% SYRINGE Inj (50 ml) IV PRN (00:22)
[2018-04-16] MEDS ORDERED: Glucagon Recombinant 1 mg Inj IM PRN (00:22)
[2018-04-16] MEDS ORDERED: Albuterol-Ipratrop 3 mg / 0.5 (3 ml) UD INH PRN (00:46)
[2018-04-16 02:01] LABS: ABG ALLEN TEST YES; ARTERIAL BLOOD GAS HCO3 24.4 mmol/L (21-28); ARTERIAL BLOOD GAS HEMOGLOBIN 11.2 g/dL (11.7-17.4); ARTERIAL BLOOD GAS O2 CAPACITY 15.4 mL/dL (16-24); ARTERIAL BLOOD GAS O2 CONTENT 15.3 ML/dL (15-23); ARTERIAL BLOOD GAS O2 SAT 99.6 % (95-98); ARTERIAL BLOOD GAS PCO2 33 mm/Hg (35-45); ARTERIAL BLOOD GAS PH 7.45 (7.35-7.45); ARTERIAL BLOOD GAS PO2 103 mm/Hg (80-100); ARTERIAL BLOOD GAS TCO2 23.9 mmol/L (22-28)
[2018-04-16] MEDS ORDERED: Influenza Vaccine (5 YR UP)/PF 60 MCG/0.5 ML SYR IM ONE (06:30)
[2018-04-16 06:36] LABS: BASO % 0.1 % (0.0-2.0); HEMOGLOBIN 10.6 g/dL (12.0-18.0); LYMPH # 1.4 K/uL (1.0-4.3); LYMPH % 8.9 % (20.0-40.0); MEAN CELL VOLUME 81.7 fl (80.0-94.0); MEAN CORPUSCULAR HEMOGLOBIN 27.2 pg (27.0-31.0); MEAN CORPUSCULAR HGB CONC 33.2 g/dL (33.0-37.0); MEAN PLATELET VOLUME 8.5 fl (7.2-11.7); MONO # 0.7 K/uL (0.0-0.8); MONO % 4.2 % (0.0-10.0); NEUT # 13.8 K/uL (1.8-7.0); NEUT % 86.8 % (50.0-75.0); NRBC % 0.2 % (0.0-0.0); PLATELET COUNT 211 K/uL (130-400); RED CELL DISTRIBUTION WIDTH 18.9 % (11.5-14.5)
[2018-04-16 06:57] LABS: ALB/GLOB RATIO 1.2 (1.0-2.1); ALBUMIN 2.9 g/dL (3.5-5.0); ALT/SGPT 30 U/L (21-72); AST/SGOT 21 U/L (17-59); BLOOD UREA NITROGEN 37 mg/dl (9-20); CALCIUM 8.3 mg/dL (8.4-10.2); GFR NON-AFRICAN AMERICAN > 60
[2018-04-16] MEDS: Azithromycin 500 MG in Sodium Chloride 0.9% 250 ML IVPB SCH (08:26)
[2018-04-16] MEDS: Fluticasone-Salmeterol 500-50mcg Diskus IH SCH ×2 (08:27→21:19)
[2018-04-16] MEDS: Insulin Lispro (humaLOG) 100 Units/ml Inj SC SCH ×4 (08:30→22:00)
[2018-04-16] MEDS: Enoxaparin 40 mg Syringe SC SCH (08:30)
[2018-04-16] MEDS ORDERED: MethylPREDNISolone 40 mg Vial IVP SCH (09:00)
[2018-04-16] MEDS ORDERED: methylPREDNISolone 40 MG in Sodium Chloride 0.9% 50 ML IVPB SCH (09:00)
--- NOTE | 2018-04-16 09:31 | CARD ---
APPROVED REPORT Date of service: 04/15/2018 EKG Measurement Heart [id number] <Conclusion> Sinus tachycardia Otherwise normal ECG
[2018-04-16 11:15] LABS: NEUTROPHIL 88 % (42-75); TOTAL CELLS COUNTED 100
[2018-04-16 11:16] LABS: ANISOCYTOSIS SLIGHT; HYPOCHROMIC SLIGHT; LYMPHOCYTE 8 % (20-50); MONOCYTE 3 % (0-10); PLATELET ESTIMATE NORMAL (NORMAL); REACTIVE LYMPHOCYTES 1 % (0-0)
--- NOTE | 2018-04-16 12:16 | CP.PCM.PN ---
Addendum entered and electronically signed by Breanna Palencia MD 04/16/18 12:26: Patient was seen and evaluated bedside . All chart and clinical data reviewed . Case discussed with resident . Agree with assessmenta nd plan 67 y/o homeless male with history COPD , not compliant with medications , with multiple hospital admissions presented for SOB and chest pain . Patient admitted with COPD exacerbation Physical exam significant : patient in some respiratory distress with prolonged expiratory phase with decreased air entry both lungs and wheezing WBc elevated to 18K--16 K CXR showed no active disease ABG 33/103/24/7/4 on FIo2 28 % Will continue current management Increase Solumedrol to 40 mg IV Q8 Duonebs RTC , Start Mucinex Continue Zithromax Continue O2 via NC Original Note: Subjective - Date & Time of Evaluation Date of Evaluation: 04/16/18 Time of Evaluation: 10:25 - Subjective Subjective: Seen at bedside in mild resp distress. Afebrile. Sporadic dry cough. No acute events since admission. Patient didn't take meds as prescribed after being DC from hosp. Objective - Vital Signs/Intake and Output Vital Signs (last 24 hours): Temp Pulse Resp BP Pulse Ox 98.6 F 78 20 114/68 98 04/16/18 08:03 04/16/18 08:29 04/16/18 08:03 04/16/18 08:29 04/16/18 08:03 - Medications Medications: Current Medications Albuterol (Ventolin Hfa 90 Mcg/Actuation (8 G)) 2 puff INH RQ4 PRN PRN Reason: Shortness of Breath Albuterol/Ipratropium (Duoneb 3 Mg/0.5 Mg (3 Ml) Ud) 3 ml INH RQ4 PRN PRN Reason: Shortness of Breath Last Admin: 04/16/18 01:30 Dose: 3 ml Albuterol/Ipratropium (Duoneb 3 Mg/0.5 Mg (3 Ml) Ud) 3 ml INH Q6H [facility] Amlodipine Besylate (Norvasc) 5 mg PO DAILY [facility] Last Admin: 04/16/18 08:29 Dose: 5 mg Benzocaine/Menthol (Cepacol Sore Throat) 1 yanick PO Q3 PRN PRN Reason: Sore Throat Dextrose (Dextrose 50% Inj) 0 ml IV STAT PRN; Protocol PRN Reason: Hypoglycemia Protocol Dextrose (Glutose 15) 0 gm PO ONCE PRN; Protocol PRN Reason: Hypoglycemia Protocol Enoxaparin Sodium (Lovenox) 40 mg SC DAILY [facility]; Protocol Last Admin: 04/16/18 08:30 Dose: 40 mg Fluticasone Propionate (Flonase) 2 spr VADIM DAILY [facility] Last Admin: 04/16/18 08:28 Dose: 2 spr Glucagon (Glucagen Diagnostic Kit) 0 mg IM STAT PRN; Protocol PRN Reason: Hypoglycemia Protocol Guaifenesin (Mucinex La) 600 mg PO Q12 [facility] Azithromycin 500 mg/ Sodium (Chloride) 250 mls @ 250 mls/hr IVPB DAILY [facility]; Protocol Last Admin: 04/16/18 08:26 Dose: 250 mls/hr Insulin Human Lispro (Humalog) 0 units SC ACHS [facility]; Protocol Last Admin: 04/16/18 08:30 Dose: 8 units Lactic Acid (Lac-Hydrin 12% Lotion (225 G)) 1 applic TOP TID [facility] Last Admin: 04/16/18 08:27 Dose: 1 applic Metformin HCl (Glucophage) 500 mg PO BIDWM [facility] Last Admin: 04/16/18 08:28 Dose: 500 mg Methylprednisolone (Solu-Medrol) 40 mg IVP Q8H [facility] Montelukast Sodium (Singulair) 10 mg PO HS [facility] Fluticasone/Salmeterol (Advair Diskus 500/50) 1 puff IH Q12 [facility] Last Admin: 04/16/18 08:27 Dose: 1 puff - Labs Labs: 04/16/18 05:45 04/16/18 05:45 PT 11.1 Seconds (9.8-13.1) 04/15/18 17:18 INR 1.0 04/15/18 17:18 APTT 23.8 Seconds (25.6-37.1) L 04/15/18 17:18 - Constitutional Appears: Non-toxic, Chronically Ill - Eye Exam Eye Exam: EOMI, PERRL - ENT Exam ENT Exam: Mucous Membranes Moist - Respiratory Exam Respiratory Exam: Decreased Breath Sounds, Wheezes. absent: Rales - Cardiovascular Exam Cardiovascular Exam: REGULAR RHYTHM, +S1, +S2 - GI/Abdominal Exam GI & Abdominal Exam: Soft, Hernia (Left inguinal hernia surgical wound, intact, dry, slightly tender and indurated around incision. NO signs of fluid collection or cellulits), Normal Bowel Sounds - Neurological Exam Neurological Exam: Alert, Awake, Oriented x3 - Psychiatric Exam Psychiatric exam: Normal Affect, Normal Mood - Skin Skin Exam: Rash (chronic, scaly rash), Warm Assessment and Plan - Assessment and Plan (Free Text) Assessment: 67 y/o man w/ pmh of COPD, NIDDM type 2, HTN, PE s/p IVC filter (not on anticoagulation) and psoriasis presents to ED with complaint of SOB with chest pain, wheezing, nonproductive cough, chills worsening x 2 days Plan: COPD exacerbation - CXR: no active disease - EKG: sinus tachycardia at 102 bpm, no significant ST-T changes - abg. Ph WNL, PO2 103, PCO2 33 - Decreased air entrance on PE - c/w duoneb Q4h prn - Start duonebs q6h sched - Increase solu-medrol 40 mg IV Q8h - c/w azithromycin 500 mg IV daily - monitor for acute changes - Start mucinex q12h Chest pain - resolved - most likely associated w/ cough and COPD exacerbation r/o aCS - troponinx2 normal S/P inguinal hernia repair 1 week ago - Stable - Hasnt f/u with Sx since DC - Wound seems healing well - Sx consult to eval patient since patient is homeless and no f/u as outpatient Hx of PE - s/p IVC filter - not on anticoagulation DM2 - uncontrolled - poor adherence to medication - c/w metformin - insulin correction scale - hypoglycemic protocol HTN - Uncotrnolled - c/w norvasc for now Psoriasis - chronic - c/w lac-hydrin Prophylactic measures - DVT: lovenox 40 mg SC daily
[2018-04-16] MEDS: Benzocaine/Menthol (Cepacol) Lozenge PO PRN ×3 (13:03→21:20)
[2018-04-16] MEDS: MethylPREDNISolone 40 mg Vial IVP SCH ×2 (13:04→21:20)
[2018-04-16] MEDS: guaiFENesin 600 mg ER Tab PO SCH ×2 (13:04→21:20)
[2018-04-16] MEDS: Albuterol-Ipratrop 3 mg / 0.5 (3 ml) UD INH SCH ×2 (13:19→19:25)
--- NOTE | 2018-04-16 15:37 | CP.PCM.CON ---
History of Present Illness - History of Present Illness History of Present Illness: GENERAL SURGERY CONSULT NOTE FOR DR. VASQUEZ 67 y/o man w/ PMHx of COPD, NIDDM type 2, HTN, PE s/p IVC filter (not on anticoagulation) and psoriasis presented to ED yesterday with complaint of SOB with chest pain, wheezing, nonproductive cough, chills worsening x 2 days. He was not taking any medication (by mouth or inhaled). He was admitted for COPD exacerbation. Surgery was consulted for followup after surgery. Patient had left inguinal hernia repair w/ mesh on 04/05/18 and had not followed up outpatient. Patient states that he is doing well after surgery. He is tolerating his diet, ambulating, having regular bowel function. States has some burning just at incision site when he tightens his belt around the area but does not have any symptoms otherwise. Patient denies fever, hematuria, nausea, vomiting, diarrhea, weakness. Patient sleeps in a longterm or in his friends house during the week. Review of Systems - Review of Systems All systems: reviewed and no additional remarkable complaints except (as per HPI) Past Patient History - Infectious Disease Hx of Infectious Diseases: None - Tetanus Immunizations Tetanus Immunization: Unknown - Past Medical History & Family History Past Medical History?: Yes - Past Social History Smoking Status: Former Smoker - CARDIAC Hx Cardiac Disorders: Yes Hx Congestive Heart Failure: Yes Hx Hypercholesterolemia: Yes Hx Hypertension: Yes - PULMONARY Hx Respiratory Disorders: Yes Hx Asthma: Yes Hx Chronic Obstructive Pulmonary Disease (COPD): Yes Hx Pneumonia: Yes Hx Pulmonary Embolism: Yes - NEUROLOGICAL Hx Neurological Disorder: No - HEENT Hx HEENT Problems: No - RENAL Hx Chronic Kidney Disease: No - ENDOCRINE/METABOLIC Hx Endocrine Disorders: Yes Hx Diabetes Mellitus Type 2: Yes - HEMATOLOGICAL/ONCOLOGICAL Hx Blood Disorders: No Hx Human Immunodeficiency Virus (HIV): No - INTEGUMENTARY Hx Dermatological Problems: Yes (GENERALIZED SKIN PSORIASIS) - MUSCULOSKELETAL/RHEUMATOLOGICAL Hx Musculoskeletal Disorders: Yes Hx Falls: No - GASTROINTESTINAL Hx Gastrointestinal Disorders: Yes Other/Comment: GI bleeding - GENITOURINARY/GYNECOLOGICAL Hx Genitourinary Disorders: No - PSYCHIATRIC Hx Psychophysiologic Disorder: No Hx Substance Use: No - SURGICAL HISTORY Hx Surgeries: Yes Other/Comment: IVC Filter - ANESTHESIA Hx Anesthesia: Yes Hx Anesthesia Reactions: No Hx Malignant Hyperthermia: No Meds Allergies/Adverse Reactions: Allergies Allergy/AdvReac Type Severity Reaction Status Date / Time No Known Allergies Allergy Verified 04/01/18 16:38 - Medications Medications: Current Medications Albuterol (Ventolin Hfa 90 Mcg/Actuation (8 G)) 2 puff INH RQ4 PRN PRN Reason: Shortness of Breath Albuterol/Ipratropium (Duoneb 3 Mg/0.5 Mg (3 Ml) Ud) 3 ml INH RQ4 PRN PRN Reason: Shortness of Breath Last Admin: 04/16/18 01:30 Dose: 3 ml Albuterol/Ipratropium (Duoneb 3 Mg/0.5 Mg (3 Ml) Ud) 3 ml INH Q6H [facility] Last Admin: 04/16/18 13:19 Dose: 3 ml Amlodipine Besylate (Norvasc) 5 mg PO DAILY [facility] Last Admin: 04/16/18 08:29 Dose: 5 mg Benzocaine/Menthol (Cepacol Sore Throat) 1 yanick PO Q3 PRN PRN Reason: Sore Throat Last Admin: 04/16/18 13:03 Dose: 1 yanick Dextrose (Dextrose 50% Inj) 0 ml IV STAT PRN; Protocol PRN Reason: Hypoglycemia Protocol Dextrose (Glutose 15) 0 gm PO ONCE PRN; Protocol PRN Reason: Hypoglycemia Protocol Enoxaparin Sodium (Lovenox) 40 mg SC DAILY [facility]; Protocol Last Admin: 04/16/18 08:30 Dose: 40 mg Fluticasone Propionate (Flonase) 2 spr VADIM DAILY [facility] Last Admin: 04/16/18 08:28 Dose: 2 spr Glucagon (Glucagen Diagnostic Kit) 0 mg IM STAT PRN; Protocol PRN Reason: Hypoglycemia Protocol Guaifenesin (Mucinex La) 600 mg PO Q12 [facility] Last Admin: 04/16/18 13:04 Dose: 600 mg Azithromycin 500 mg/ Sodium (Chloride) 250 mls @ 250 mls/hr IVPB DAILY [facility]; Protocol Last Admin: 04/16/18 08:26 Dose: 250 mls/hr Insulin Human Lispro (Humalog) 0 units SC ACHS [facility]; Protocol Last Admin: 04/16/18 12:01 Dose: Not Given Lactic Acid (Lac-Hydrin 12% Lotion (225 G)) 1 applic TOP TID [facility] Last Admin: 04/16/18 13:03 Dose: 1 applic Metformin HCl (Glucophage) 500 mg PO BIDWM [facility] Last Admin: 04/16/18 08:28 Dose: 500 mg Methylprednisolone (Solu-Medrol) 40 mg IVP Q8H [facility] Last Admin: 04/16/18 13:04 Dose: 40 mg Montelukast Sodium (Singulair) 10 mg PO HS [facility] Fluticasone/Salmeterol (Advair Diskus 500/50) 1 puff IH Q12 [facility] Last Admin: 04/16/18 08:27 Dose: 1 puff Physical Exam - Constitutional Appears: Non-toxic, No Acute Distress - Respiratory Exam Respiratory Exam: NORMAL BREATHING PATTERN (on NC). absent: Respiratory Distress - Cardiovascular Exam Cardiovascular Exam: +S1, +S2 - GI/Abdominal Exam GI & Abdominal Exam: Soft. absent: Distended, Firm, Guarding, Rebound, Rigid, Tenderness Additional comments: ecchymosis throughout abdomen likely secondary to Lovenox Left inguinal hernia incision healing well, non tender, no drainage, no erythema. Slightly firm area to lateral portion of incision, non tender. - Neurological Exam Neurological exam: Alert, CN II-XII Intact, Oriented x3 - Psychiatric Exam Psychiatric exam: Normal Affect, Normal Mood - Skin Skin Exam: Dry, Warm Additional comments: ecchymosis throughout abdomen Results - Vital Signs Recent Vital Signs: Last Vital Signs Temp 98.0 F 04/16/18 12:19 Pulse 83 04/16/18 12:19 Resp 21 04/16/18 12:19 BP 120/70 04/16/18 12:19 Pulse Ox 97 04/16/18 12:19 - Labs Result Diagrams: 04/16/18 05:45 04/16/18 05:45 Labs: Laboratory Results - last 24 hr 04/15/18 04/15/18 04/15/18 17:18 17:18 17:18 WBC 18.8 H D RBC 4.40 Hgb 11.8 L Hct 36.4 MCV 82.6 MCH 26.8 L MCHC 32.4 L RDW 19.4 H Plt Count 237 MPV 8.6 Neut % (Auto) 79.5 H Lymph % (Auto) 13.8 L Spencer % (Auto) 6.2 Eos % (Auto) 0.0 Baso % (Auto) 0.5 Neut # (Auto) 14.9 H Lymph # (Auto) 2.6 Spencer # (Auto) 1.2 H Eos # (Auto) 0.0 Baso # (Auto) 0.1 Neutrophils % (Manual) Lymphocytes % (Manual) Reactive Lymphs % Monocytes % (Manual) Platelet Estimate Hypochromasia (manual) Anisocytosis (manual) PT INR APTT pCO2 pO2 HCO3 ABG pH ABG Total CO2 ABG O2 Saturation ABG O2 Content ABG Base Excess ABG Hemoglobin ABG Carboxyhemoglobin POC ABG HHb (Measured) ABG Methemoglobin ABG O2 Capacity Slim Test A-a O2 Difference Hgb O2 Saturation FiO2 Sodium 140 Potassium 4.6 Chloride 103 Carbon Dioxide 28 Anion Gap 14 BUN 48 H Creatinine 1.4 Est GFR ( Amer) > 60 Est GFR (Non-Af Amer) 51 POC Glucose (mg/dL) Random Glucose 221 H Calcium 8.7 Total Bilirubin 0.4 AST 22 ALT 30 Alkaline Phosphatase 60 Troponin I 0.0250 Total Protein 6.5 Albumin 3.5 Globulin 3.0 Albumin/Globulin Ratio 1.2 Influenza Typ A,B (EIA) Grp A Beta Strep Ag Negative 04/15/18 04/15/18 04/16/18 17:18 17:18 01:56 WBC RBC Hgb Hct MCV MCH MCHC RDW Plt Count MPV Neut % (Auto) Lymph % (Auto) Spencer % (Auto) Eos % (Auto) Baso % (Auto) Neut # (Auto) Lymph # (Auto) Spencer # (Auto) Eos # (Auto) Baso # (Auto) Neutrophils % (Manual) Lymphocytes % (Manual) Reactive Lymphs % Monocytes % (Manual) Platelet Estimate Hypochromasia (manual) Anisocytosis (manual) PT 11.1 INR 1.0 APTT 23.8 L pCO2 33 L pO2 103 H HCO3 24.4 ABG pH 7.45 ABG Total CO2 23.9 ABG O2 Saturation 99.6 H ABG O2 Content 15.3 ABG Base Excess -0.6 ABG Hemoglobin 11.2 L ABG Carboxyhemoglobin 2.2 H POC ABG HHb (Measured) 0.4 ABG Methemoglobin 1.2 ABG O2 Capacity 15.4 L Slim Test Yes A-a O2 Difference 55.0 Hgb O2 Saturation 96.1 FiO2 28.0 Sodium Potassium Chloride Carbon Dioxide Anion Gap BUN Creatinine Est GFR ( Amer) Est GFR (Non-Af Amer) POC Glucose (mg/dL) Random Glucose Calcium Total Bilirubin AST ALT Alkaline Phosphatase Troponin I Total Protein Albumin Globulin Albumin/Globulin Ratio Influenza Typ A,B (EIA) Negative for flu a/b Grp A Beta Strep Ag 04/16/18 04/16/18 04/16/18 05:11 05:45 05:45 WBC 16.0 H RBC 3.90 L Hgb 10.6 L Hct 31.9 L MCV 81.7 MCH 27.2 MCHC 33.2 RDW 18.9 H Plt Count 211 MPV 8.5 Neut % (Auto) 86.8 H Lymph % (Auto) 8.9 L Spencer % (Auto) 4.2 Eos % (Auto) 0.0 Baso % (Auto) 0.1 Neut # (Auto) 13.8 H Lymph # (Auto) 1.4 Spencer # (Auto) 0.7 Eos # (Auto) 0.0 Baso # (Auto) 0.0 Neutrophils % (Manual) 88 H Lymphocytes % (Manual) 8 L Reactive Lymphs % 1 H Monocytes % (Manual) 3 Platelet Estimate Normal Hypochromasia (manual) Slight Anisocytosis (manual) Slight PT INR APTT pCO2 pO2 HCO3 ABG pH ABG Total CO2 ABG O2 Saturation ABG O2 Content ABG Base Excess ABG Hemoglobin ABG Carboxyhemoglobin POC ABG HHb (Measured) ABG Methemoglobin ABG O2 Capacity Slim Test A-a O2 Difference Hgb O2 Saturation FiO2 Sodium 136 Potassium 4.3 Chloride 102 Carbon Dioxide 27 Anion Gap 11 BUN 37 H Creatinine 1.0 Est GFR ( Amer) > 60 Est GFR (Non-Af Amer) > 60 POC Glucose (mg/dL) 354 H Random Glucose 349 H Calcium 8.3 L Total Bilirubin 0.4 AST 21 ALT 30 Alkaline Phosphatase 50 Troponin I Total Protein 5.5 L Albumin 2.9 L Globulin 2.5 Albumin/Globulin Ratio 1.2 Influenza Typ A,B (EIA) Grp A Beta Strep Ag 04/16/18 04/16/18 04/16/18 07:12 11:05 12:02 WBC RBC Hgb Hct MCV MCH MCHC RDW Plt Count MPV Neut % (Auto) Lymph % (Auto) Spencer % (Auto) Eos % (Auto) Baso % (Auto) Neut # (Auto) Lymph # (Auto) Spencer # (Auto) Eos # (Auto) Baso # (Auto) Neutrophils % (Manual) Lymphocytes % (Manual) Reactive Lymphs % Monocytes % (Manual) Platelet Estimate Hypochromasia (manual) Anisocytosis (manual) PT INR APTT pCO2 pO2 HCO3 ABG pH ABG Total CO2 ABG O2 Saturation ABG O2 Content ABG Base Excess ABG Hemoglobin ABG Carboxyhemoglobin POC ABG HHb (Measured) ABG Methemoglobin ABG O2 Capacity Slim Test A-a O2 Difference Hgb O2 Saturation FiO2 Sodium Potassium Chloride Carbon Dioxide Anion Gap BUN Creatinine Est GFR ( Amer) Est GFR (Non-Af Amer) POC Glucose (mg/dL) 118 H Random Glucose Calcium Total Bilirubin AST ALT Alkaline Phosphatase Troponin I 0.0140 0.0170 Total Protein Albumin Globulin Albumin/Globulin Ratio Influenza Typ A,B (EIA) Grp A Beta Strep Ag Assessment & Plan - Assessment and Plan (Free Text) Assessment: 67 y/o man w/ pmh of COPD, NIDDM type 2, HTN, PE s/p IVC filter (not on anticoagulation) and psoriasis who was admitted for COPD exacerbation. Surgery consulted for wound check s/p left inguinal hernia repair w/ mesh on 04/05/18. Plan: - Incision healing well - Ambulation encouraged - No surgical intervention needed - No need to follow up outpatient - Surgery will sign off, please re-consult as necessary - Discussed plan with Dr. Elena Dumont PGY-4
[2018-04-17] MEDS: Albuterol-Ipratrop 3 mg / 0.5 (3 ml) UD INH SCH ×2 (01:00→08:06)
[2018-04-17] MEDS: MethylPREDNISolone 40 mg Vial IVP SCH (04:57)
[2018-04-17 07:05] LABS: HEMOGLOBIN 10.7 g/dL (12.0-18.0); MEAN CELL VOLUME 83.3 fl (80.0-94.0); MEAN CORPUSCULAR HEMOGLOBIN 27.2 pg (27.0-31.0); MEAN CORPUSCULAR HGB CONC 32.6 g/dL (33.0-37.0); RBC 3.93 Mil/uL (4.40-5.90); RED CELL DISTRIBUTION WIDTH 19.5 % (11.5-14.5); WHITE BLOOD COUNT 12.8 K/uL (4.8-10.8)
[2018-04-17 07:51] LABS: BLOOD UREA NITROGEN 31 mg/dl (9-20); CALCIUM 8.6 mg/dL (8.4-10.2); GFR NON-AFRICAN AMERICAN > 60
[2018-04-17] MEDS: Enoxaparin 40 mg Syringe SC SCH (08:51)
[2018-04-17] MEDS: Azithromycin 500 MG in Sodium Chloride 0.9% 250 ML IVPB SCH (08:51)
[2018-04-17] MEDS: Fluticasone-Salmeterol 500-50mcg Diskus IH SCH (08:52)
[2018-04-17] MEDS: guaiFENesin 600 mg ER Tab PO SCH (08:52)
[2018-04-17] MEDS: Benzocaine/Menthol (Cepacol) Lozenge PO PRN (08:52)
[2018-04-17] MEDS: Insulin Lispro (humaLOG) 100 Units/ml Inj SC SCH ×2 (08:53→12:10)
--- NOTE | 2018-04-17 09:51 | CP.PCM.DIS ---
<SheldonKelvin - Last Filed: 04/17/18 12:58> Provider - Provider Date of Admission: 04/15/18 22:07 Attending physician: Lida Fernandes DO Primary care physician: No PMD Time Spent in preparation of Discharge (in minutes): 35 Diagnosis - Discharge Diagnosis (1) Acute exacerbation of chronic obstructive pulmonary disease Status: Acute Comment: Improved. Patient abg WNL. Patient is noncompliant with home meds and doesnt f/u at clinic as recommended. Stable to DC with medrol pack and mucinex (2) DM2 (diabetes mellitus, type 2) Status: Chronic Comment: Accucheck 255 at discharge. Uncontrolled due to multiple steroids treatments for COPD exacerbation. C/W Metformin 500mg BID and F/U as outpatient. (3) Status post hernia repair Status: Acute Comment: Evaluated by Surgery while admitted, healing well, they recommend no need for f/u as outpatient. (4) HTN (hypertension) Status: Chronic Comment: Stable. C/w Amlodipine Hospital Course - Lab Results Lab Results: Micro Results 04/15/18 20:00 Blood-Venous Blood Culture - Preliminary NO GROWTH AFTER 24 HOURS 04/15/18 19:25 Blood-Venous Blood Culture - Preliminary NO GROWTH AFTER 24 HOURS Most Recent Lab Values WBC 12.8 K/uL (4.8-10.8) H 04/17/18 06:41 RBC 3.93 Mil/uL (4.40-5.90) L 04/17/18 06:41 Hgb 10.7 g/dL (12.0-18.0) L 04/17/18 06:41 Hct 32.7 % (35.0-51.0) L 04/17/18 06:41 MCV 83.3 fl (80.0-94.0) 04/17/18 06:41 MCH 27.2 pg (27.0-31.0) 04/17/18 06:41 MCHC 32.6 g/dL (33.0-37.0) L 04/17/18 06:41 RDW 19.5 % (11.5-14.5) H 04/17/18 06:41 Plt Count 209 K/uL (130-400) 04/17/18 06:41 MPV 8.5 fl (7.2-11.7) 04/16/18 05:45 Neut % (Auto) 86.8 % (50.0-75.0) H 04/16/18 05:45 Lymph % (Auto) 8.9 % (20.0-40.0) L 04/16/18 05:45 [place] % (Auto) 4.2 % (0.0-10.0) 04/16/18 05:45 Eos % (Auto) 0.0 % (0.0-4.0) 04/16/18 05:45 Baso % (Auto) 0.1 % (0.0-2.0) 04/16/18 05:45 Neut # (Auto) 13.8 K/uL (1.8-7.0) H 04/16/18 05:45 Lymph # (Auto) 1.4 K/uL (1.0-4.3) 04/16/18 05:45 [place] # (Auto) 0.7 K/uL (0.0-0.8) 04/16/18 05:45 Eos # (Auto) 0.0 K/uL (0.0-0.7) 04/16/18 05:45 Baso # (Auto) 0.0 K/uL (0.0-0.2) 04/16/18 05:45 Neutrophils % (Manual) 88 % (42-75) H 04/16/18 05:45 Lymphocytes % (Manual) 8 % (20-50) L 04/16/18 05:45 Reactive Lymphs % 1 % (0-0) H 04/16/18 05:45 Monocytes % (Manual) 3 % (0-10) 04/16/18 05:45 Platelet Estimate Normal (NORMAL) 04/16/18 05:45 Hypochromasia (manual) Slight 04/16/18 05:45 Anisocytosis (manual) Slight 04/16/18 05:45 PT 11.1 Seconds (9.8-13.1) 04/15/18 17:18 INR 1.0 04/15/18 17:18 APTT 23.8 Seconds (25.6-37.1) L 04/15/18 17:18 pCO2 33 mm/Hg (35-45) L 04/16/18 01:56 pO2 103 mm/Hg (80-100) H 04/16/18 01:56 HCO3 24.4 mmol/L (21-28) 04/16/18 01:56 ABG pH 7.45 (7.35-7.45) 04/16/18 01:56 ABG Total CO2 23.9 mmol/L (22-28) 04/16/18 01:56 ABG O2 Saturation 99.6 % (95-98) H 04/16/18 01:56 ABG O2 Content 15.3 ML/dL (15-23) 04/16/18 01:56 ABG Base Excess -0.6 mmol/L (-2.0-3.0) 04/16/18 01:56 ABG Hemoglobin 11.2 g/dL (11.7-17.4) L 04/16/18 01:56 ABG Carboxyhemoglobin 2.2 % (0.5-1.5) H 04/16/18 01:56 POC ABG HHb (Measured) 0.4 % (0.0-5.0) 04/16/18 01:56 ABG Methemoglobin 1.2 % (0.0-3.0) 04/16/18 01:56 ABG O2 Capacity 15.4 mL/dL (16-24) L 04/16/18 01:56 Slim Test Yes 04/16/18 01:56 A-a O2 Difference 55.0 mm/Hg 04/16/18 01:56 Hgb O2 Saturation 96.1 % (95.0-98.0) 04/16/18 01:56 FiO2 28.0 % 04/16/18 01:56 Sodium 135 mmol/l (132-148) 04/17/18 06:41 Potassium 4.4 MMOL/L (3.6-5.0) 04/17/18 06:41 Chloride 102 mmol/L (98-107) 04/17/18 06:41 Carbon Dioxide 25 mmol/L (22-30) 04/17/18 06:41 Anion Gap 12 (10-20) 04/17/18 06:41 BUN 31 mg/dl (9-20) H 04/17/18 06:41 Creatinine 0.8 mg/dl (0.8-1.5) 04/17/18 06:41 Est GFR ( Amer) > 60 04/17/18 06:41 Est GFR (Non-Af Amer) > 60 09/30/18 06:41 POC Glucose (mg/dL) 426 mg/dL (65-110) H* 04/17/18 05:37 Random Glucose 465 mg/dL (75-110) H* D 04/17/18 06:41 Calcium 8.6 mg/dL (8.4-10.2) 04/17/18 06:41 Total Bilirubin 0.4 mg/dl (0.2-1.3) 04/16/18 05:45 AST 21 U/L (17-59) 04/16/18 05:45 ALT 30 U/L (21-72) 04/16/18 05:45 Alkaline Phosphatase 50 U/L (38-126) 04/16/18 05:45 Troponin I 0.0170 ng/mL (0.00-0.120) 04/16/18 12:02 Total Protein 5.5 G/DL (6.3-8.2) L 04/16/18 05:45 Albumin 2.9 g/dL (3.5-5.0) L 04/16/18 05:45 Globulin 2.5 gm/dL (2.2-3.9) 04/16/18 05:45 Albumin/Globulin Ratio 1.2 (1.0-2.1) 04/16/18 05:45 Influenza Typ A,B (EIA) Negative for flu a/b (NEGATIVE) 04/15/18 17:18 Grp A Beta Strep Ag Negative (NEGATIVE) 04/15/18 17:18 - Hospital Course Hospital Course: 67 y/o with Hx of COPD and DM presented to ED c/o CP and SOB. Patient is known noncompliant with meds or with outpatient f/u. He is homeless and dosnt have a place to stay over the weekends. Patient was treated with IV steroids, duonebs and Zithromax. ABG was WNL Yesterday. Patient is s/p inguinal hernia repair and was revaluated by Surgery while in the hosp who recommended no need for outpa tient f/u and c/u same instructions. Patient is stable to DC home to c/w treatment as outpatient. Rx for Medrol pack and Mucinex given to patient. To be called for appt at [facility] after DC. BS were uncontrolled during admission, patient doesnt take Metformin at home and is on steroids often due to COPD exacerbations. Advised to f/u at [facility] for primary care. DC meds: Metformin Advair Albuterol Medrolpack Mucinex Tylenol Amlodipine Montelukast Discharge Exam - Head Exam Head Exam: ATRAUMATIC, NORMAL INSPECTION, NORMOCEPHALIC - Eye Exam Eye Exam: EOMI, PERRL - Respiratory Exam Respiratory Exam: Wheezes (Questionable scattered expiratory, mild). absent: Accessory Muscle Use, Decreased Breath Sounds, Prolonged Expiratory Phase, Rales, Rhonchi, Respiratory Distress, Stridor, UNREMARKABLE (Patient seems to purposely force expiration during exam) - Cardiovascular Exam Cardiovascular Exam: REGULAR RHYTHM, +S1, +S2 - GI/Abdominal Exam GI & Abdominal Exam: Hernia (Left inguinal incision wound intact, clean and dry.), Normal Bowel Sounds, Unremarkable. absent: Guarding - Neurological Exam Neurological exam: Alert, Normal Gait, Oriented x3 - Psychiatric Exam Psychiatric exam: Normal Affect - Skin Skin Exam: Rash (scaly, chronic), Warm Discharge Plan - Discharge Medications Prescriptions: Guaifenesin [Mucinex] 600 mg PO BID #20 tab.er.12h Methylprednisolone [Medrol Dose Pack (21 tabs)] 4 mg PO ASDIR #21 mg - Follow Up Plan Condition: STABLE Disposition: HOME/ ROUTINE Patient education suggested?: Yes Additional Instructions: F/U as outpatient to establish primary care Take medications as prescribed No need to f/u with Surgery as outpatient Return to ER if worsening SOB or pain in wound area Referrals: [facility] [Outside] [facility] [place] [Outside] <Muriel Lamas - Last Filed: 04/17/18 15:44> Provider - Provider Date of Admission: 04/15/18 22:07 Attending physician: Lida Fernandes, Hospital Course - Lab Results Lab Results: Micro Results 04/15/18 17:18 Throat Group A Strep Throat Culture - Final NO BETA STREP GROUP A ISOLATED. 04/15/18 20:00 Blood-Venous Blood Culture - Preliminary NO GROWTH AFTER 24 HOURS 04/15/18 19:25 Blood-Venous Blood Culture - Preliminary NO GROWTH AFTER 24 HOURS Most Recent Lab Values WBC 12.8 K/uL (4.8-10.8) H 04/17/18 06:41 RBC 3.93 Mil/uL (4.40-5.90) L 04/17/18 06:41 Hgb 10.7 g/dL (12.0-18.0) L 04/17/18 06:41 Hct 32.7 % (35.0-51.0) L 04/17/18 06:41 MCV 83.3 fl (80.0-94.0) 04/17/18 06:41 MCH 27.2 pg (27.0-31.0) 04/17/18 06:41 MCHC 32.6 g/dL (33.0-37.0) L 04/17/18 06:41 RDW 19.5 % (11.5-14.5) H 04/17/18 06:41 Plt Count 209 K/uL (130-400) 04/17/18 06:41 MPV 8.5 fl (7.2-11.7) 04/16/18 05:45 Neut % (Auto) 86.8 % (50.0-75.0) H 04/16/18 05:45 Lymph % (Auto) 8.9 % (20.0-40.0) L 04/16/18 05:45 [place] % (Auto) 4.2 % (0.0-10.0) 04/16/18 05:45 Eos % (Auto) 0.0 % (0.0-4.0) 04/16/18 05:45 Baso % (Auto) 0.1 % (0.0-2.0) 04/16/18 05:45 Neut # (Auto) 13.8 K/uL (1.8-7.0) H 04/16/18 05:45 Lymph # (Auto) 1.4 K/uL (1.0-4.3) 04/16/18 05:45 [place] # (Auto) 0.7 K/uL (0.0-0.8) 04/16/18 05:45 Eos # (Auto) 0.0 K/uL (0.0-0.7) 04/16/18 05:45 Baso # (Auto) 0.0 K/uL (0.0-0.2) 04/16/18 05:45 Neutrophils % (Manual) 88 % (42-75) H 04/16/18 05:45 Lymphocytes % (Manual) 8 % (20-50) L 04/16/18 05:45 Reactive Lymphs % 1 % (0-0) H 04/16/18 05:45 Monocytes % (Manual) 3 % (0-10) 04/16/18 05:45 Platelet Estimate Normal (NORMAL) 04/16/18 05:45 Hypochromasia (manual) Slight 04/16/18 05:45 Anisocytosis (manual) Slight 04/16/18 05:45 PT 11.1 Seconds (9.8-13.1) 04/15/18 17:18 INR 1.0 04/15/18 17:18 APTT 23.8 Seconds (25.6-37.1) L 04/15/18 17:18 pCO2 33 mm/Hg (35-45) L 04/16/18 01:56 pO2 103 mm/Hg (80-100) H 04/16/18 01:56 HCO3 24.4 mmol/L (21-28) 04/16/18 01:56 ABG pH 7.45 (7.35-7.45) 04/16/18 01:56 ABG Total CO2 23.9 mmol/L (22-28) 04/16/18 01:56 ABG O2 Saturation 99.6 % (95-98) H 04/16/18 01:56 ABG O2 Content 15.3 ML/dL (15-23) 04/16/18 01:56 ABG Base Excess -0.6 mmol/L (-2.0-3.0) 04/16/18 01:56 ABG Hemoglobin 11.2 g/dL (11.7-17.4) L 04/16/18 01:56 ABG Carboxyhemoglobin 2.2 % (0.5-1.5) H 04/16/18 01:56 POC ABG HHb (Measured) 0.4 % (0.0-5.0) 04/16/18 01:56 ABG Methemoglobin 1.2 % (0.0-3.0) 04/16/18 01:56 ABG O2 Capacity 15.4 mL/dL (16-24) L 04/16/18 01:56 Slim Test Yes 04/16/18 01:56 A-a O2 Difference 55.0 mm/Hg 04/16/18 01:56 Hgb O2 Saturation 96.1 % (95.0-98.0) 04/16/18 01:56 FiO2 28.0 % 04/16/18 01:56 Sodium 135 mmol/l (132-148) 04/17/18 06:41 Potassium 4.4 MMOL/L (3.6-5.0) 04/17/18 06:41 Chloride 102 mmol/L (98-107) 04/17/18 06:41 Carbon Dioxide 25 mmol/L (22-30) 04/17/18 06:41 Anion Gap 12 (10-20) 04/17/18 06:41 BUN 31 mg/dl (9-20) H 04/17/18 06:41 Creatinine 0.8 mg/dl (0.8-1.5) 04/17/18 06:41 Est GFR ( Amer) > 60 04/17/18 06:41 Est GFR (Non-Af Amer) > 60 04/17/18 06:41 POC Glucose (mg/dL) 255 mg/dL (65-110) H 04/17/18 11:25 Random Glucose 465 mg/dL (75-110) H* D 04/17/18 06:41 Calcium 8.6 mg/dL (8.4-10.2) 04/17/18 06:41 Total Bilirubin 0.4 mg/dl (0.2-1.3) 04/16/18 05:45 AST 21 U/L (17-59) 04/16/18 05:45 ALT 30 U/L (21-72) 04/16/18 05:45 Alkaline Phosphatase 50 U/L (38-126) 04/16/18 05:45 Troponin I 0.0170 ng/mL (0.00-0.120) 04/16/18 12:02 Total Protein 5.5 G/DL (6.3-8.2) L 04/16/18 05:45 Albumin 2.9 g/dL (3.5-5.0) L 04/16/18 05:45 Globulin 2.5 gm/dL (2.2-3.9) 04/16/18 05:45 Albumin/Globulin Ratio 1.2 (1.0-2.1) 04/16/18 05:45 Influenza Typ A,B (EIA) Negative for flu a/b (NEGATIVE) 04/15/18 17:18 Grp A Beta Strep Ag Negative (NEGATIVE) 04/15/18 17:18 Attending/Attestation - Attestation I have personally seen and examined this patient.: Yes I have fully participated in the care of the patient.: Yes I have reviewed all pertinent clinical information, including history, physical exam and plan: Yes
[2018-04-17] MEDS ORDERED: Insulin Lispro (humaLOG) 100 Units/ml Inj SC STA (10:07)
[2018-04-17] MEDS ORDERED: Insulin Detemir 100 Units/ml Inj SC STA (10:33)
[2018-04-17] MEDS ORDERED: Albuterol-Ipratrop 3 mg / 0.5 (3 ml) UD INH SCH (14:00)
[2018-04-17 16:06] VITALS: BP 137/75; PULSE 100; RESP 20; TEMP 97.9; O2SAT 100
[2018-04-17] MEDS ORDERED: MethylPREDNISolone 40 mg Vial IVP SCH (21:00)
== END 2018-04-17 17:03 | disposition home or self-care (01) ==
LOC: H.ER 16:30 → H.ERHOLD 22:07 → MERGE 22:07 → H.TEL 04-16 00:01
PROVIDERS: ADMIT Student in an Organized Health Care Education/Training Program; ATTEND Student in an Organized Health Care Education/Training Program
DX: J44.1 Chronic obstructive pulmonary disease with (acute) exacerbation (principal); R07.9 Chest pain, unspecified; E78.00 Pure hypercholesterolemia, unspecified; I11.0 Hypertensive heart disease with heart failure; I50.9 Heart failure, unspecified; Z59.0 Homelessness; Z79.84 Long term (current) use of oral hypoglycemic drugs; Z86.711 Personal history of pulmonary embolism; Z87.01 Personal history of pneumonia (recurrent); Z87.891 Personal history of nicotine dependence; Z91.14 Patient's other noncompliance with medication regimen; L40.9 Psoriasis, unspecified; Z79.899 Other long term (current) drug therapy; E11.65 Type 2 diabetes mellitus with hyperglycemia; Z23 Encounter for immunization; T38.0X5A Adverse effect of glucocorticoids and synthetic analogues, initial encounter; Y92.239 Unspecified place in hospital as the place of occurrence of the external cause
CPT/HCPCS: 36415; 71045; 80048; 80053; 82803; 82948; 84484; 85025; 85027; 85610; 85730; 87040; 87070; 87430; 87804; 90471; 93005; 94640; 96374; 99285; G0378; J0456; J1650; J2920; J2930; Q2035

== ENCOUNTER 2018-04-24 18:44 | Observation (INO) | payer SELFPAY ==
[2018-04-24 18:45] VITALS: BMI 27.5
[2018-04-24] MEDS ORDERED: Albuterol-Ipratrop 3 mg / 0.5 (3 ml) UD INH STA (19:30)
--- NOTE | 2018-04-24 20:05 | ED PDOC ---
HPI: SOB/CHF/COPD Time Seen by Provider: 04/24/18 18:59 Chief Complaint (Nursing): Shortness Of Breath Chief Complaint (Provider): Shortness Of Breath History Per: Patient History/Exam Limitations: no limitations Onset/Duration Of Symptoms: Days (x 2) Current Symptoms Are (Timing): Still Present Quality: Pressure, "Pain" Additional Complaint(s): 67 year old male with a history of COPD, asthma, diabetes, psoriasis and PE with IVC filter presents with worsening shortness of breath, chest pain and pressure and a productive, non bloody cough. Patient has had multiple admissions for COPD exacerbation. Most recently, he was discharged from [facility] 2 days ago. Now complains of worsening shortness of breath since discharge and no improv ement with home medications. Otherwise denies fever, nausea and vomiting. PMD: none provided Past Medical History Reviewed: Historical Data, Nursing Documentation, Vital Signs Vital Signs: Last Vital Signs Temp 98.6 F 04/24/18 18:54 Pulse 97 H 04/24/18 18:54 Resp 20 04/24/18 18:54 BP 105/59 L 04/24/18 18:54 Pulse Ox 97 04/24/18 18:54 - Medical History PMH: Asthma, CHF, COPD, Diabetes, HTN, Hypercholesterolemia, Pneumonia, Pulmonary Embolism Denies: HIV, Chronic Kidney Disease - Surgical History Other surgeries: hernia repair and IVC filter - Family History Family History: States: Unknown Family Hx, [place], Diabetes Other Family History: arthritis - Social History Ex-Smoker (has not smoked in the last 12 months): Yes (heavy smoker until 1 year ago) Alcohol: None (history of alcohol abuse until 1 year ago) Drugs: Denies - Immunization History Hx Tetanus Toxoid Vaccination: No Hx Influenza Vaccination: No Hx Pneumococcal Vaccination: No - Home Medications Home Medications: Ambulatory Orders Medication Instructions Recorded RX: Fluticasone Propionate 2 spr VADIM DAILY bottle 03/08/18 [Flonase] RX: Acetaminophen [Tylenol 325mg 650 mg PO Q6 PRN tab 04/04/18 tab] RX: Albuterol HFA [Ventolin HFA 90 2 puff INH RQ4 PRN #1 inhaler 04/04/18 mcg/actuation (8 g)] RX: Ammonium Lactate 12% 1 applic TOP TID bottle 04/04/18 [Lac-Hydrin 12% Lotion (225 g)] RX: Fluticasone/Salmeterol 500/50 1 puff IH Q12 #1 dsk 04/04/18 [Advair Diskus 500/50] RX: Montelukast [Singulair] 10 mg PO HS #30 tab 04/04/18 RX: metFORMIN [glucOPHAGE] 500 mg PO BIDWM #60 tab 04/04/18 RX: amLODIPine [Norvasc] 5 mg PO DAILY #30 tab 04/08/18 RX: Guaifenesin [Mucinex] 600 mg PO BID #20 tab.er.12h 04/17/18 RX: Prednisone 10 mg PO BID #10 04/22/18 - Allergies Allergies/Adverse Reactions: Allergies Allergy/AdvReac Type Severity Reaction Status Date / Time No Known Allergies Allergy Unverified 04/24/18 18:52 Review of Systems ROS Statement: Except As Marked, All Systems Reviewed And Found Negative Cardiovascular: Positive for: Chest Pain (and pressure) Respiratory: Positive for: Cough. Negative for: Hemoptysis Physical Exam - Reviewed Nursing Documentation Reviewed: Yes Vital Signs Reviewed: Yes - Physical Exam Appears: Positive for: Non-toxic, In Acute Distress (acute respiratory distress) Head Exam: Positive for: ATRAUMATIC, NORMAL INSPECTION, NORMOCEPHALIC Skin: Positive for: Normal Color, Warm, Dry Eye Exam: Positive for: EOMI, Normal appearance, PERRL ENT: Positive for: Pharynx Is (clear, tacky mucus membranes) Neck: Positive for: Painless ROM, Supple Cardiovascular/Chest: Positive for: Regular Rate, Rhythm. Negative for: Murmur Respiratory: Positive for: Rales (diffuse), Rhonchi (diffuse), Respiratory Distress, Other (poor air movement ) Gastrointestinal/Abdominal: Positive for: Soft. Negative for: Tenderness Back: Positive for: Normal Inspection. Negative for: Decreased ROM Extremity: Positive for: Normal ROM (x 4), Pedal Edema (trace), Other (psoriatic lesions to extremities). Negative for: Swelling Lymphatic: Negative for: Adenopathy Neurologic/Psych: Positive for: Alert, Oriented. Negative for: Motor/Sensory Deficits - Laboratory Results Result Diagrams: 04/24/18 20:48 04/24/18 20:48 - ECG O2 Sat by Pulse Oximetry: 97 (RA) Pulse Ox Interpretation: Normal - Critical Care Total Time (In Min): 30 Documented Critical Care: Time excludes all time spent performint seperately billable procedures Medical Decision Making Medical Decision Makin:28 Impression: COPD exacerbation Differential diagnoses include but are not limited to: CHF, pneumonia and ACS Initial Plan: --ABG --EKG --Alcohol --BNP --CMP --Mag Phos --troponin --CBC --PTT/INR --CXR --Albuterol 9 ml INH --Solumedrol 125 mg IVP --Peak flow pre/post --Influenza AB Labs demonstrate elevated probnp. No other clinically significant abnormalities. On reeval pt continues to have diffuse expiratory wheeze and c/o chest pain. VICKIE Tafoya Hospitalist for continue management. Scribe Attestation: Documented by Makeda Aquino acting as a scribe for Beena Matute MD Provider Scribe Attestation: All medical record entries made by the Scribe were at my direction and personally dictated by me. I have reviewed the chart and agree that the record accurately reflects my personal performance of the history, physical exam, medical decision making, and the department course for this patient. I have also personally directed, reviewed, and agree with the discharge instructions and disposition. Disposition - Clinical Impression Clinical Impression: Acute exacerbation of chronic obstructive pulmonary disease Counseled Patient/Family Regarding: Studies Performed, Diagnosis - Disposition Disposition Time: 23:00 Condition: FAIR - POA Present On Arrival: None
[2018-04-24] MEDS ORDERED: Albuterol-Ipratrop 3 mg / 0.5 (3 ml) UD ONE ×2 (20:39→20:42)
[2018-04-24 20:54] LABS: BASO % 0.3 % (0.0-2.0); HEMOGLOBIN 11.2 g/dL (12.0-18.0); LYMPH # 0.8 K/uL (1.0-4.3); LYMPH % 8.5 % (20.0-40.0); MEAN CELL VOLUME 83.1 fl (80.0-94.0); MEAN CORPUSCULAR HEMOGLOBIN 27.6 pg (27.0-31.0); MEAN CORPUSCULAR HGB CONC 33.2 g/dL (33.0-37.0); MEAN PLATELET VOLUME 8.6 fl (7.2-11.7); MONO # 0.5 K/uL (0.0-0.8); MONO % 5.2 % (0.0-10.0); NEUT # 8.3 K/uL (1.8-7.0); NRBC % 0.1 % (0.0-0.0); RBC 4.07 Mil/uL (4.40-5.90); RED CELL DISTRIBUTION WIDTH 18.9 % (11.5-14.5); WHITE BLOOD COUNT 9.7 K/uL (4.8-10.8)
[2018-04-24 21:10] LABS: INR 1.1; PROTHROMBIN TIME 12.4 Seconds (9.8-13.1)
[2018-04-24 21:11] LABS: PARTIAL THROMBOPLASTIN TIME 23.9 Seconds (25.6-37.1)
[2018-04-24 21:13] LABS: ALB/GLOB RATIO 1.2 (1.0-2.1); ALBUMIN 3.2 g/dL (3.5-5.0); ALT/SGPT 34 U/L (21-72); AST/SGOT 33 U/L (17-59); BLOOD UREA NITROGEN 32 mg/dl (9-20); GFR NON-AFRICAN AMERICAN > 60
[2018-04-24 21:21] LABS: B-TYPE NATRIURETIC PEPTIDE 966 pg/ml (0-900)
[2018-04-24 21:35] LABS: ABG ALLEN TEST YES; ARTERIAL BLOOD GAS O2 SAT 95.9 % (95-98); ARTERIAL BLOOD GAS PCO2 41 mm/Hg (35-45); ARTERIAL BLOOD GAS PO2 56 mm/Hg (80-100); ARTERIAL BLOOD GAS TCO2 33.3 mmol/L (22-28)
[2018-04-24] MEDS ORDERED: Lactated Ringer's 1,000 ML IV SCH (22:45)
--- NOTE | 2018-04-24 22:51 | CP.PCM.HP ---
<Sanjiv Haynes - Last Filed: 04/24/18 23:17> History of Present Illness - History of Present Illness History of Present Illness: CC: Cough and SOB HPI: 67 y/o male, well know to our service, with a PMHx of COPD, NIDDM2, HTN, PE w IVC filter (not on AC) and psoriasis presented to [facility] ER for evaluation of worsening cough and SOB. He reports this cough started to worsened 3 days ago, and has been unrelenting. The cough has episodic phelgm production, that is yellowish in color. He reports SOB associated with the cough. He was recently admitted to [facility] for a COPD exacerbation, and when discharged, was given scripts for medications but he never filled them. He reports episodic chills. No other complaints. Denies fevers, dizziness, lightheadedness, N/V/D/C, urinary symptoms, numbness/tingling. PMD: None PMH: COPD, NIDDM2, HTN, PE s/p IVC filter-2014 (not on anticoagulation), hx of retroperitoneal hematoma (2014) and psoriasis Medications: none Allergies: NKDA PSH: IVC filter Fam: denies SOC: former smoker (30 pack years, quit 1 yr ago), former Etoh abuse (last drink in 04/2017), denies drug use; is homeless, sometimes sleeps in his friends house ED course: Vitals: T 98.6F, HR 97, BP 105/59 , RR 20 , POX: 97% 2 L NC CBC: 9.7>11.2/33.8<217 CMP: BUN/Cr: 32/0.8, BS 126 troponin: 0.0330 NT-Pro-BNP: 966 CXR EKG: sinus tachycardia at 102 bpm, no significant ST-T changes, no acute changes when compared to prior EKGs Duoneb x1 (9mL) Methylprednisolone 125mg IV once Present on Admission - Present on Admission Any Indicators Present on Admission: Yes History of DVT/PE: Yes History of Uncontrolled Diabetes: Yes Urinary Catheter: No Decubitus Ulcer Present: No Review of Systems - Review of Systems All systems: reviewed and no additional remarkable complaints except (as mentioned in HPI) Past Patient History - Infectious Disease Hx of Infectious Diseases: None - Tetanus Immunizations Tetanus Immunization: Unknown - Past Medical History & Family History Past Medical History?: Yes - Past Social History Smoking Status: Former Smoker Alcohol: None (history of alcohol abuse until 1 year ago) Drugs: Denies Home Situation {Lives}: Homeless - CARDIAC Hx Congestive Heart Failure: Yes Hx Hypercholesterolemia: Yes Hx Hypertension: Yes - PULMONARY Hx Asthma: Yes Hx Chronic Obstructive Pulmonary Disease (COPD): Yes Hx Pneumonia: Yes Hx Pulmonary Embolism: Yes - NEUROLOGICAL Hx Neurological Disorder: No - HEENT Hx HEENT Problems: No - RENAL Hx Chronic Kidney Disease: No - ENDOCRINE/METABOLIC Hx Endocrine Disorders: Yes Hx Diabetes Mellitus Type 2: Yes - HEMATOLOGICAL/ONCOLOGICAL Hx Human Immunodeficiency Virus (HIV): No - INTEGUMENTARY Hx Dermatological Problems: Yes (GENERALIZED SKIN PSORIASIS) - MUSCULOSKELETAL/RHEUMATOLOGICAL Hx Musculoskeletal Disorders: Yes Hx Falls: No - GASTROINTESTINAL Hx Gastrointestinal Disorders: Yes Other/Comment: GI bleeding - GENITOURINARY/GYNECOLOGICAL Hx Genitourinary Disorders: No - PSYCHIATRIC Hx Substance Use: No - SURGICAL HISTORY Hx Surgeries: Yes Other/Comment: IVC Filter - ANESTHESIA Hx Anesthesia: Yes Hx Anesthesia Reactions: No Hx Malignant Hyperthermia: No Meds Allergies/Adverse Reactions: Allergies Allergy/AdvReac Type Severity Reaction Status Date / Time No Known Allergies Allergy Unverified 04/24/18 18:52 Physical Exam - Constitutional Appears: Non-toxic, No Acute Distress - Head Exam Head Exam: ATRAUMATIC, NORMOCEPHALIC - Eye Exam Eye Exam: EOMI. absent: Scleral icterus Pupil Exam: PERRL - ENT Exam ENT Exam: Mucous Membranes Moist - Neck Exam Neck exam: Negative for: Lymphadenopathy - Respiratory Exam Respiratory Exam: Rhonchi, Wheezes (scattered wheezing and rhonic throughout both lung cramer). absent: Accessory Muscle Use, Decreased Breath Sounds, Rales, Respiratory Distress - Cardiovascular Exam Cardiovascular Exam: REGULAR RHYTHM, RRR, +S1, +S2. absent: Tachycardia, Irregular Rhythm, JVD, Rubs, Systolic Murmur - GI/Abdominal Exam GI & Abdominal Exam: Normal Bowel Sounds, Soft. absent: Tenderness - Extremities Exam Extremities exam: Positive for: normal capillary refill, pedal pulses present. Negative for: pedal edema Additional comments: hyperkeratosis b/l - Neurological Exam Neurological exam: Alert, CN II-XII Intact, Oriented x3 - Psychiatric Exam Psychiatric exam: Normal Affect, Normal Mood - Skin Skin Exam: Dry, Rash (chronic psoriaic lesions throughout ) Results - Vital Signs Recent Vital Signs: Last Vital Signs Temp 98.6 F 04/24/18 18:54 Pulse 97 H 04/24/18 18:54 Resp 20 04/24/18 18:54 BP 105/59 L 04/24/18 18:54 Pulse Ox 97 04/24/18 20:15 - Labs Result Diagrams: 04/24/18 20:48 04/24/18 20:48 Labs: Laboratory Results - last 24 hr 04/24/18 04/24/18 04/24/18 20:40 20:47 20:48 WBC 9.7 RBC 4.07 L Hgb 11.2 L Hct 33.8 L MCV 83.1 MCH 27.6 MCHC 33.2 RDW 18.9 H Plt Count 217 MPV 8.6 Neut % (Auto) 86.0 H Lymph % (Auto) 8.5 L [place] % (Auto) 5.2 Eos % (Auto) 0.0 Baso % (Auto) 0.3 Neut # (Auto) 8.3 H Lymph # (Auto) 0.8 L [place] # (Auto) 0.5 Eos # (Auto) 0.0 Baso # (Auto) 0.0 PT INR APTT pCO2 pO2 HCO3 ABG pH ABG Total CO2 ABG O2 Saturation ABG Base Excess Slim Test ABG Potassium A-a O2 Difference Glucose Lactate FiO2 Sodium Potassium Chloride Carbon Dioxide Anion Gap BUN Creatinine Est GFR ( Amer) Est GFR (Non-Af Amer) POC Glucose (mg/dL) 125 H Random Glucose Calcium Phosphorus Magnesium Total Bilirubin AST ALT Alkaline Phosphatase Troponin I NT-Pro-B Natriuret Pep Total Protein Albumin Globulin Albumin/Globulin Ratio Arterial Blood Potassium Alcohol, Quantitative Influenza Typ A,B (EIA) Negative for flu a/b 04/24/18 04/24/18 04/24/18 20:48 20:48 21:30 WBC RBC Hgb Hct MCV MCH MCHC RDW Plt Count MPV Neut % (Auto) Lymph % (Auto) [place] % (Auto) Eos % (Auto) Baso % (Auto) Neut # (Auto) Lymph # (Auto) [place] # (Auto) Eos # (Auto) Baso # (Auto) PT 12.4 INR 1.1 APTT 23.9 L pCO2 41 pO2 56 L HCO3 31.0 H ABG pH 7.50 H ABG Total CO2 33.3 H ABG O2 Saturation 95.9 ABG Base Excess 8.0 H Slim Test Yes ABG Potassium 3.7 A-a O2 Difference 42.0 Glucose 144 H Lactate 1.5 FiO2 21.0 Sodium 139 140.0 Potassium 4.1 Chloride 103 104.0 Carbon Dioxide 33 H Anion Gap 7 L BUN 32 H Creatinine 0.8 Est GFR ( Amer) > 60 Est GFR (Non-Af Amer) > 60 POC Glucose (mg/dL) Random Glucose 126 H Calcium 9.0 Phosphorus 3.4 Magnesium 1.7 Total Bilirubin 0.7 AST 33 ALT 34 Alkaline Phosphatase 52 Troponin I 0.0330 NT-Pro-B Natriuret Pep 966 H Total Protein 5.9 L Albumin 3.2 L Globulin 2.7 Albumin/Globulin Ratio 1.2 Arterial Blood Potassium 3.7 Alcohol, Quantitative < 10 Influenza Typ A,B (EIA) Assessment & Plan - Assessment and Plan (Free Text) Assessment: 67 y/o male with a PMHx of COPD, HTN, NIDDM2, PE (w IVC filter) and Psoriasis admitted for Acute COPD exacerbation. Plan: 1) Acute COPD Exacerbation -afebrile -normal white count -s/p 9mL duo-neb and 125mg Solu-medrol -RTC Duo-neb Q4H -IV solu-medrol 40mg TID -Resume Advair -tele monitoring -supplemental O2 via NC PRN -1 L LR @ 100mls/hr -repeat AM labs 2) NIDDM2 -uncontrolled -most recent HBA1C 8.8 -Resume metformin 500mg BID -Lispo Correction scale, medium protocol -accuchecks ACHS 3) HTN -controlled -monitor BP 4) Hx of PE with IVC Filter -Lovenox 40mg SC QD 5) Prophylaxis -lovenox 40mg SC QD 6) Diet -heart healthy/moderate carbohydrate 7) Code status -full code <Edouard Tafoya - Last Filed: 04/25/18 01:52> Results - Vital Signs Recent Vital Signs: Last Vital Signs Temp 98.6 F 04/24/18 18:54 Pulse 97 H 04/24/18 18:54 Resp 20 04/24/18 18:54 BP 105/59 L 04/24/18 18:54 Pulse Ox 97 04/24/18 20:15 - Labs Result Diagrams: 04/24/18 20:48 04/24/18 20:48 Labs: Laboratory Results - last 24 hr 04/24/18 04/24/18 04/24/18 20:40 20:47 20:48 WBC 9.7 RBC 4.07 L Hgb 11.2 L Hct 33.8 L MCV 83.1 MCH 27.6 MCHC 33.2 RDW 18.9 H Plt Count 217 MPV 8.6 Neut % (Auto) 86.0 H Lymph % (Auto) 8.5 L [place] % (Auto) 5.2 Eos % (Auto) 0.0 Baso % (Auto) 0.3 Neut # (Auto) 8.3 H Lymph # (Auto) 0.8 L [place] # (Auto) 0.5 Eos # (Auto) 0.0 Baso # (Auto) 0.0 PT INR APTT pCO2 pO2 HCO3 ABG pH ABG Total CO2 ABG O2 Saturation ABG Base Excess Slim Test ABG Potassium A-a O2 Difference Glucose Lactate FiO2 Sodium Potassium Chloride Carbon Dioxide Anion Gap BUN Creatinine Est GFR ( Amer) Est GFR (Non-Af Amer) POC Glucose (mg/dL) 125 H Random Glucose Calcium Phosphorus Magnesium Total Bilirubin AST ALT Alkaline Phosphatase Troponin I NT-Pro-B Natriuret Pep Total Protein Albumin Globulin Albumin/Globulin Ratio Arterial Blood Potassium Alcohol, Quantitative Influenza Typ A,B (EIA) Negative for flu a/b 04/24/18 04/24/18 04/24/18 20:48 20:48 21:30 WBC RBC Hgb Hct MCV MCH MCHC RDW Plt Count MPV Neut % (Auto) Lymph % (Auto) [place] % (Auto) Eos % (Auto) Baso % (Auto) Neut # (Auto) Lymph # (Auto) [place] # (Auto) Eos # (Auto) Baso # (Auto) PT 12.4 INR 1.1 APTT 23.9 L pCO2 41 pO2 56 L HCO3 31.0 H ABG pH 7.50 H ABG Total CO2 33.3 H ABG O2 Saturation 95.9 ABG Base Excess 8.0 H Slim Test Yes ABG Potassium 3.7 A-a O2 Difference 42.0 Glucose 144 H Lactate 1.5 FiO2 21.0 Sodium 139 140.0 Potassium 4.1 Chloride 103 104.0 Carbon Dioxide 33 H Anion Gap 7 L BUN 32 H Creatinine 0.8 Est GFR ( Amer) > 60 Est GFR (Non-Af Amer) > 60 POC Glucose (mg/dL) Random Glucose 126 H Calcium 9.0 Phosphorus 3.4 Magnesium 1.7 Total Bilirubin 0.7 AST 33 ALT 34 Alkaline Phosphatase 52 Troponin I 0.0330 NT-Pro-B Natriuret Pep 966 H Total Protein 5.9 L Albumin 3.2 L Globulin 2.7 Albumin/Globulin Ratio 1.2 Arterial Blood Potassium 3.7 Alcohol, Quantitative < 10 Influenza Typ A,B (EIA) Attending/Attestation - Attestation I have personally seen and examined this patient.: Yes I have fully participated in the care of the patient.: Yes I have reviewed all pertinent clinical information: Yes Notes (Text): 04/25/18 01:42 I saw,examined and discussed this patient with Dr Haynes. I agree with the assessment and plan which indicate my direct input. this is a 67 years old male with frequent ED visits and was last admitted on 04/19/18 and discharged on 04/22/18 from [facility] with dx of COPD exacerbation. He comes now to the [facility] with SOB and chest pain. He is diagnosed again with COPD and Asthma exacerbation. He will be treated with Albuterol, Ipatropium and Methylprednisolone along with Advair. Edouard Tafoya MD
[2018-04-24] MEDS ORDERED: Glucagon Recombinant 1 mg Inj IM PRN (23:05)
[2018-04-24] MEDS ORDERED: Dextrose 50% SYRINGE Inj (50 ml) IV PRN (23:05)
[2018-04-25] MEDS: MethylPREDNISolone 40 mg Vial IVP SCH ×2 (01:00→08:56)
[2018-04-25] MEDS ORDERED: methylPREDNISolone 40 MG in Sodium Chloride 0.9% 50 ML IVPB SCH (01:00)
[2018-04-25] MEDS ORDERED: Albuterol-Ipratrop 3 mg / 0.5 (3 ml) UD ONE ×4 (03:45→11:32)
[2018-04-25] MEDS: Albuterol-Ipratrop 3 mg / 0.5 (3 ml) UD INH SCH ×3 (04:08→07:18)
--- NOTE | 2018-04-25 07:12 | CP.PCM.PN ---
Objective - Vital Signs/Intake and Output Vital Signs (last 24 hours): Temp Pulse Resp BP Pulse Ox 98.9 F 89 18 129/78 100 04/25/18 04:15 04/25/18 04:15 04/25/18 04:15 04/25/18 04:15 04/25/18 04:15 - Medications Medications: Current Medications Acetaminophen (Tylenol 325mg Tab) 650 mg PO Q6 PRN PRN Reason: Fever >100.4 F Albuterol/Ipratropium (Duoneb 3 Mg/0.5 Mg (3 Ml) Ud) 3 ml INH RQ4 JEFFREY Last Admin: 04/25/18 04:08 Dose: 3 ml Amlodipine Besylate (Norvasc) 5 mg PO DAILY JEFFREY Dextrose (Dextrose 50% Inj) 0 ml IV STAT PRN; Protocol PRN Reason: Hypoglycemia Protocol Dextrose (Glutose 15) 0 gm PO ONCE PRN; Protocol PRN Reason: Hypoglycemia Protocol Enoxaparin Sodium (Lovenox) 40 mg SC DAILY JEFFREY; Protocol Glucagon (Glucagen Diagnostic Kit) 0 mg IM STAT PRN; Protocol PRN Reason: Hypoglycemia Protocol Lactated Ringer's (Lactated Ringer's) 1,000 mls @ 100 mls/hr IV .Q10H JEFFREY Stop: 04/25/18 08:44 Last Admin: 04/24/18 23:28 Dose: 100 mls/hr Insulin Human Lispro (Humalog) 0 units SC ACHS JEFFREY; Protocol Metformin HCl (Glucophage) [facility] Methylprednisolone (Solu-Medrol) 40 mg IVP Q8 JEFFREY Last Admin: 04/25/18 01:00 Dose: 40 mg Fluticasone/Salmeterol (Advair Diskus 500/50) 1 puff IH Q12 JEFFREY - Labs Labs: 04/24/18 20:48 04/24/18 20:48 PT 12.4 Seconds (9.8-13.1) 04/24/18 20:48 INR 1.1 04/24/18 20:48 APTT 23.9 Seconds (25.6-37.1) L 04/24/18 20:48
[2018-04-25] MEDS ORDERED: Insulin Lispro (humaLOG) 100 Units/ml Inj SC SCH (07:30)
--- NOTE | 2018-04-25 07:30 | ED PDOC ---
- Laboratory Results Result Diagrams: 04/24/18 20:48 04/24/18 20:48 - ECG O2 Sat by Pulse Oximetry: 94 (RA) Pulse Ox Interpretation: Abnormal Medical Decision Making Medical Decision Makin Received endorsement from Dr. Zhao. Patient is accepted to [facility], pending bed availability. Scribe Attestation: Documented by Kia Miller, acting as a scribe for Ana Baxetr MD. Provider Scribe Attestation: All medical record entries made by the Scribe were at my direction and personally dictated by me. I have reviewed the chart and agree that the record accurately reflects my personal performance of the history, physical exam, medical decision making, and the department course for this patient. I have also personally directed, reviewed, and agree with the discharge instructions and disposition.
--- NOTE | 2018-04-25 08:52 | RAD ---
Date of service: 04/24/2018 HISTORY: chest pain COMPARISON: Portable chest radiograph 04/15/2018. FINDINGS: LUNGS: Fibrotic changes are reiterated at the inferior left lung zone laterally. No alveolitis bilaterally. PLEURA: No significant pleural effusion identified, no pneumothorax apparent. CARDIOVASCULAR: Normal. OSSEOUS STRUCTURES: No significant abnormalities. VISUALIZED UPPER ABDOMEN: Normal. OTHER FINDINGS: None. IMPRESSION: No acute cardiopulmonary disease appreciable. Left basilar fibrotic changes reiterated.
[2018-04-25] MEDS ORDERED: Enoxaparin 40 mg Syringe SC SCH (09:00)
[2018-04-25] MEDS ORDERED: Fluticasone-Salmeterol 500-50mcg Diskus IH SCH (09:00)
[2018-04-25 09:03] VITALS: BP 152/86
[2018-04-25 09:38] VITALS: TEMP 97.9
--- NOTE | 2018-04-25 10:48 | CP.PCM.DIS ---
<Kaila Ramires - Last Filed: 04/25/18 11:20> Provider - Provider Date of Admission: 04/24/18 22:08 Attending physician: Edouard Tafoya Primary care physician: None Consults: None Time Spent in preparation of Discharge (in minutes): 40 Diagnosis - Discharge Diagnosis (1) COPD exacerbation Status: Acute Comment: - C/w Home medications. - C/w Steroid and Abx as prescribed. - ER precautions discussed. - C/w Azithromycin 500 mg PO BID #10, Patient was given RX from Last admission and he doesn't want another Rx, Strict instructions given regarding medications compliance. - C/w Prednisone 10 mg PO BID #10, Patient was given RX from Last admission and he doesn't want another Rx, Strict instructions given regarding medications compliance (2) Non-insulin dependent type 2 diabetes mellitus Status: Acute Comment: - C/w home medication: Metformin 500 BID (3) Hypertension Status: Acute Comment: C/w Home medication: Norvasc 5mg Hospital Course - Lab Results Lab Results: Most Recent Lab Values WBC 9.7 K/uL (4.8-10.8) 04/24/18 20:48 RBC 4.07 Mil/uL (4.40-5.90) L 04/24/18 20:48 Hgb 11.2 g/dL (12.0-18.0) L 04/24/18 20:48 Hct 33.8 % (35.0-51.0) L 04/24/18 20:48 MCV 83.1 fl (80.0-94.0) 04/24/18 20:48 MCH 27.6 pg (27.0-31.0) 04/24/18 20:48 MCHC 33.2 g/dL (33.0-37.0) 04/24/18 20:48 RDW 18.9 % (11.5-14.5) H 04/24/18 20:48 Plt Count 217 K/uL (130-400) 04/24/18 20:48 MPV 8.6 fl (7.2-11.7) 04/24/18 20:48 Neut % (Auto) 86.0 % (50.0-75.0) H 04/24/18 20:48 Lymph % (Auto) 8.5 % (20.0-40.0) L 04/24/18 20:48 [place] % (Auto) 5.2 % (0.0-10.0) 04/24/18 20:48 Eos % (Auto) 0.0 % (0.0-4.0) 04/24/18 20:48 Baso % (Auto) 0.3 % (0.0-2.0) 04/24/18 20:48 Neut # (Auto) 8.3 K/uL (1.8-7.0) H 04/24/18 20:48 Lymph # (Auto) 0.8 K/uL (1.0-4.3) L 04/24/18 20:48 [place] # (Auto) 0.5 K/uL (0.0-0.8) 04/24/18 20:48 Eos # (Auto) 0.0 K/uL (0.0-0.7) 04/24/18 20:48 Baso # (Auto) 0.0 K/uL (0.0-0.2) 04/24/18 20:48 PT 12.4 Seconds (9.8-13.1) 04/24/18 20:48 INR 1.1 04/24/18 20:48 APTT 23.9 Seconds (25.6-37.1) L 04/24/18 20:48 pCO2 41 mm/Hg (35-45) 04/24/18 21:30 pO2 56 mm/Hg (80-100) L 04/24/18 21:30 HCO3 31.0 mmol/L (21-28) H 04/24/18 21:30 ABG pH 7.50 (7.35-7.45) H 04/24/18 21:30 ABG Total CO2 33.3 mmol/L (22-28) H 04/24/18 21:30 ABG O2 Saturation 95.9 % (95-98) 04/24/18 21:30 ABG Base Excess 8.0 mmol/L (-2.0-3.0) H 04/24/18 21:30 Slim Test Yes 04/24/18 21:30 ABG Potassium 3.7 mmol/L (3.6-5.2) 04/24/18 21:30 A-a O2 Difference 42.0 mm/Hg 04/24/18 21:30 Sodium 140.0 mmol/L (132-148) 04/24/18 21:30 Chloride 104.0 mmol/L (98-107) 04/24/18 21:30 Glucose 144 mg/dL (75-110) H 04/24/18 21:30 Lactate 1.5 mmol/L (0.7-2.1) 04/24/18 21:30 FiO2 21.0 % 04/24/18 21:30 Sodium 139 mmol/l (132-148) 04/24/18 20:48 Potassium 4.1 MMOL/L (3.6-5.0) 04/24/18 20:48 Chloride 103 mmol/L (98-107) 04/24/18 20:48 Carbon Dioxide 33 mmol/L (22-30) H 04/24/18 20:48 Anion Gap 7 (10-20) L 04/24/18 20:48 BUN 32 mg/dl (9-20) H 04/24/18 20:48 Creatinine 0.8 mg/dl (0.8-1.5) 04/24/18 20:48 Est GFR ( Amer) > 60 04/24/18 20:48 Est GFR (Non-Af Amer) > 60 04/24/18 20:48 POC Glucose (mg/dL) 319 mg/dL (65-110) H 04/25/18 08:52 Random Glucose 126 mg/dL (75-110) H 04/24/18 20:48 Calcium 9.0 mg/dL (8.4-10.2) 04/24/18 20:48 Phosphorus 3.4 mg/dl (2.5-4.5) 04/24/18 20:48 Magnesium 1.7 MG/DL (1.6-2.3) 04/24/18 20:48 Total Bilirubin 0.7 mg/dl (0.2-1.3) 04/24/18 20:48 AST 33 U/L (17-59) 04/24/18 20:48 ALT 34 U/L (21-72) 04/24/18 20:48 Alkaline Phosphatase 52 U/L (38-126) 04/24/18 20:48 Troponin I 0.0330 ng/mL (0.00-0.120) 04/24/18 20:48 NT-Pro-B Natriuret Pep 966 pg/ml (0-900) H 04/24/18 20:48 Total Protein 5.9 G/DL (6.3-8.2) L 04/24/18 20:48 Albumin 3.2 g/dL (3.5-5.0) L 04/24/18 20:48 Globulin 2.7 gm/dL (2.2-3.9) 04/24/18 20:48 Albumin/Globulin Ratio 1.2 (1.0-2.1) 04/24/18 20:48 Arterial Blood Potassium 3.7 mmol/L (3.6-5.2) 04/24/18 21:30 Alcohol, Quantitative < 10 mg/dl (0-10) 04/24/18 20:48 Influenza Typ A,B (EIA) Negative for flu a/b (NEGATIVE) 04/24/18 20:47 - Hospital Course Hospital Course: 67 y/o male with a PMHx of COPD, HTN, NIDDM2, PE (w IVC filter) and Psoriasis admitted for Acute COPD exacerbation. Patient was discharged home from [facility] 3 days ago on Steroid and Azithromycin, medications were never picked up from pharmacy. Patient comes to the ER c/o worsening cough and SOB since his discharge with increased sputum production. CXR reviewed which shows no acute changes, patient is s/p Duoneb treatments and Methylpred. This morning patient was examined, NAD, Spo2 above 95% after d/c NC for 1 mins. Patient was discharged home and instructed to C/w home medications and Rx given from last admission. ER precautions discussed with the patient. New Medications: - C/w Azithromycin 500 mg PO BID #10, Patient was given RX from Last admission and he doesn't want another Rx, Strict instructions given regarding medications compliance - C/w Prednisone 10 mg PO BID #10, Patient was given RX from Last admission and he doesn't want another Rx, Strict instructions given regarding medications compliance Discharge Exam - Head Exam Head Exam: ATRAUMATIC, NORMAL INSPECTION, NORMOCEPHALIC - Eye Exam Eye Exam: EOMI, Normal appearance Pupil Exam: PERRL - ENT Exam ENT Exam: Mucous Membranes Moist - Respiratory Exam Respiratory Exam: Rhonchi, Wheezes (scattered wheezing and rhonic throughout both lung cramer). absent: Accessory Muscle Use, Chest Wall Tenderness, Decreased Breath Sounds - Cardiovascular Exam Cardiovascular Exam: REGULAR RHYTHM, RRR, +S1, +S2 - GI/Abdominal Exam GI & Abdominal Exam: Normal Bowel Sounds. absent: Distended, Rigid - Extremities Exam Additional comments: hyperkeratosis b/l - Back Exam Back exam: absent: CVA tenderness (L), CVA tenderness (R) - Neurological Exam Neurological exam: Alert, CN II-XII Intact, Oriented x3 - Skin Skin Exam: Normal Color Additional comments: chronic psoriaic lesions throughout Discharge Plan - Follow Up Plan Condition: GOOD Disposition: HOME/ ROUTINE Patient education suggested?: Yes Instructions: Chronic Obstructive Pulmonary Disease (COPD), Including Emphysema, COPD Including Emphysema (DC), Exacerbation of COPD, Inhalers, Exacerbation of COPD (DC), Medicines for Chronic Obstructive Pulmonary Disease (COPD), Risk Factors for COPD Additional Instructions: - C/w home medications - C/w Azithromycin 500 mg PO daily #10, Patient was given RX from Last admission, 2 days ago, and he doesn't want another Rx, Strict instructions given regarding medications compliance - C/w Prednisone 10 mg PO BID #10, Patient was given RX from Last admission, 2 days ago, and he doesn't want another Rx, Strict instructions given regarding medications compliance - Patient was encouraged to follow up with PMD/NHC - ER precautions discussed with the patient Referrals: [facility] [Outside] <Muriel Lamas - Last Filed: 04/25/18 14:10> Provider - Provider Date of Admission: 04/24/18 22:08 Attending physician: Edouard Tafoya [facility] Course - Lab Results Lab Results: Most Recent Lab Values WBC 9.7 K/uL (4.8-10.8) 04/24/18 20:48 RBC 4.07 Mil/uL (4.40-5.90) L 04/24/18 20:48 Hgb 11.2 g/dL (12.0-18.0) L 04/24/18 20:48 Hct 33.8 % (35.0-51.0) L 04/24/18 20:48 MCV 83.1 fl (80.0-94.0) 04/24/18 20:48 MCH 27.6 pg (27.0-31.0) 04/24/18 20:48 MCHC 33.2 g/dL (33.0-37.0) 04/24/18 20:48 RDW 18.9 % (11.5-14.5) H 04/24/18 20:48 Plt Count 217 K/uL (130-400) 04/24/18 20:48 MPV 8.6 fl (7.2-11.7) 04/24/18 20:48 Neut % (Auto) 86.0 % (50.0-75.0) H 04/24/18 20:48 Lymph % (Auto) 8.5 % (20.0-40.0) L 04/24/18 20:48 [place] % (Auto) 5.2 % (0.0-10.0) 04/24/18 20:48 Eos % (Auto) 0.0 % (0.0-4.0) 04/24/18 20:48 Baso % (Auto) 0.3 % (0.0-2.0) 04/24/18 20:48 Neut # (Auto) 8.3 K/uL (1.8-7.0) H 04/24/18 20:48 Lymph # (Auto) 0.8 K/uL (1.0-4.3) L 04/24/18 20:48 [place] # (Auto) 0.5 K/uL (0.0-0.8) 04/24/18 20:48 Eos # (Auto) 0.0 K/uL (0.0-0.7) 04/24/18 20:48 Baso # (Auto) 0.0 K/uL (0.0-0.2) 04/24/18 20:48 PT 12.4 Seconds (9.8-13.1) 04/24/18 20:48 INR 1.1 04/24/18 20:48 APTT 23.9 Seconds (25.6-37.1) L 04/24/18 20:48 pCO2 41 mm/Hg (35-45) 04/24/18 21:30 pO2 56 mm/Hg (80-100) L 04/24/18 21:30 HCO3 31.0 mmol/L (21-28) H 04/24/18 21:30 ABG pH 7.50 (7.35-7.45) H 04/24/18 21:30 ABG Total CO2 33.3 mmol/L (22-28) H 04/24/18 21:30 ABG O2 Saturation 95.9 % (95-98) 04/24/18 21:30 ABG Base Excess 8.0 mmol/L (-2.0-3.0) H 04/24/18 21:30 Slim Test Yes 04/24/18 21:30 ABG Potassium 3.7 mmol/L (3.6-5.2) 04/24/18 21:30 A-a O2 Difference 42.0 mm/Hg 04/24/18 21:30 Sodium 140.0 mmol/L (132-148) 04/24/18 21:30 Chloride 104.0 mmol/L (98-107) 04/24/18 21:30 Glucose 144 mg/dL (75-110) H 04/24/18 21:30 Lactate 1.5 mmol/L (0.7-2.1) 04/24/18 21:30 FiO2 21.0 % 04/24/18 21:30 Sodium 139 mmol/l (132-148) 04/24/18 20:48 Potassium 4.1 MMOL/L (3.6-5.0) 04/24/18 20:48 Chloride 103 mmol/L (98-107) 04/24/18 20:48 Carbon Dioxide 33 mmol/L (22-30) H 04/24/18 20:48 Anion Gap 7 (10-20) L 04/24/18 20:48 BUN 32 mg/dl (9-20) H 04/24/18 20:48 Creatinine 0.8 mg/dl (0.8-1.5) 04/24/18 20:48 Est GFR ( Amer) > 60 04/24/18 20:48 Est GFR (Non-Af Amer) > 60 04/24/18 20:48 POC Glucose (mg/dL) 319 mg/dL (65-110) H 04/25/18 08:52 Random Glucose 126 mg/dL (75-110) H 04/24/18 20:48 Calcium 9.0 mg/dL (8.4-10.2) 04/24/18 20:48 Phosphorus 3.4 mg/dl (2.5-4.5) 04/24/18 20:48 Magnesium 1.7 MG/DL (1.6-2.3) 04/24/18 20:48 Total Bilirubin 0.7 mg/dl (0.2-1.3) 04/24/18 20:48 AST 33 U/L (17-59) 04/24/18 20:48 ALT 34 U/L (21-72) 04/24/18 20:48 Alkaline Phosphatase 52 U/L (38-126) 04/24/18 20:48 Troponin I 0.0330 ng/mL (0.00-0.120) 04/24/18 20:48 NT-Pro-B Natriuret Pep 966 pg/ml (0-900) H 04/24/18 20:48 Total Protein 5.9 G/DL (6.3-8.2) L 04/24/18 20:48 Albumin 3.2 g/dL (3.5-5.0) L 04/24/18 20:48 Globulin 2.7 gm/dL (2.2-3.9) 04/24/18 20:48 Albumin/Globulin Ratio 1.2 (1.0-2.1) 04/24/18 20:48 Arterial Blood Potassium 3.7 mmol/L (3.6-5.2) 04/24/18 21:30 Alcohol, Quantitative < 10 mg/dl (0-10) 04/24/18 20:48 Influenza Typ A,B (EIA) Negative for flu a/b (NEGATIVE) 04/24/18 20:47 Attending/Attestation - Attestation I have personally seen and examined this patient.: Yes I have fully participated in the care of the patient.: Yes I have reviewed all pertinent clinical information, including history, physical exam and plan: Yes Notes (Text): COPD exacerbation - Pt received Duoneb tx and IV Solumedrol. -his symptoms improved - on Exam, still with slight wheeze however good air entry -Saturation on Room Air is 95-97% - d/c home - cont Azithro 500 mg daily x 5 days and Prednisone tapering dose, cont inhalers - ff up in the clinic myriam this week
[2018-04-25 11:54] VITALS: PULSE 88; RESP 18
--- NOTE | 2018-04-25 13:01 | CARD ---
APPROVED REPORT Date of service: 04/24/2018 EKG Measurement Heart [id number] <Conclusion> Sinus tachycardia Nonspecific ST and T wave abnormality Abnormal ECG
[2018-04-25 15:33] VITALS: O2SAT 97
== END 2018-04-25 11:45 | disposition home or self-care (01) ==
LOC: H.ER 18:44 → H.ERHOLD 22:08
PROVIDERS: ADMIT Internal Medicine; ATTEND Internal Medicine
DX: J44.1 Chronic obstructive pulmonary disease with (acute) exacerbation (principal); E11.9 Type 2 diabetes mellitus without complications; I11.0 Hypertensive heart disease with heart failure; I50.9 Heart failure, unspecified; Z86.711 Personal history of pulmonary embolism; E78.00 Pure hypercholesterolemia, unspecified; Z87.891 Personal history of nicotine dependence; L40.9 Psoriasis, unspecified; Z59.0 Homelessness; L85.9 Epidermal thickening, unspecified
CPT/HCPCS: 71045; 80053; 80320; 82803; 82948; 83735; 83880; 84100; 84484; 85025; 85610; 85730; 87040; 87804; 93005; 96372; 96374; 96376; 99285; G0378; J1650; J2920; J2930; J7120

== ENCOUNTER 2018-04-29 16:28 | Inpatient (IN) | payer SELFPAY ==
[2018-04-29 16:29] VITALS: BMI 27.5
[2018-04-29] MEDS ORDERED: Albuterol-Ipratrop 3 mg / 0.5 (3 ml) UD INH STA ×2 (16:57→18:39)
--- NOTE | 2018-04-29 17:50 | ED PDOC ---
HPI: SOB/CHF/COPD Time Seen by Provider: 04/29/18 16:53 Chief Complaint (Nursing): Shortness Of Breath Chief Complaint (Provider): Shortness of Breath History Per: Patient History/Exam Limitations: no limitations Onset/Duration Of Symptoms: Days (x1) Current Symptoms Are (Timing): Still Present Additional Complaint(s): 67 year old male presents to the ED complaining of shortness of breath for 20 minutes and midsternal chest pain. PMD: none Past Medical History Reviewed: Historical Data, Nursing Documentation, Vital Signs Vital Signs: Last Vital Signs Temp 98.0 F 04/29/18 16:35 Pulse 108 H 04/29/18 16:35 Resp 26 H 04/29/18 16:35 BP 143/73 04/29/18 16:35 Pulse Ox 98 04/29/18 16:35 - Medical History PMH: Asthma, CHF, COPD, Diabetes, HTN, Hypercholesterolemia, Pneumonia, Pulmonary Embolism Denies: HIV, Chronic Kidney Disease - Surgical History Surgical History: No Surg Hx - Family History Family History: States: Unknown Family Hx, MD, Diabetes - Immunization History Hx Tetanus Toxoid Vaccination: No Hx Influenza Vaccination: No Hx Pneumococcal Vaccination: No - Home Medications Home Medications: Ambulatory Orders Medication Instructions Recorded Fluticasone Propionate [Flonase] 2 spr VADIM DAILY bottle 03/08/18 Acetaminophen [Tylenol 325mg tab] 650 mg PO Q6 PRN tab 04/04/18 Albuterol HFA [Ventolin HFA 90 2 puff INH RQ4 PRN #1 inhaler 04/04/18 mcg/actuation (8 g)] Ammonium Lactate 12% [Lac-Hydrin 1 applic TOP TID bottle 04/04/18 12% Lotion (225 g)] Fluticasone/Salmeterol 500/50 1 puff IH Q12 #1 dsk 04/04/18 [Advair Diskus 500/50] Montelukast [Singulair] 10 mg PO HS #30 tab 04/04/18 metFORMIN [glucOPHAGE] 500 mg PO BIDWM #60 tab 04/04/18 amLODIPine [Norvasc] 5 mg PO DAILY #30 tab 04/08/18 Guaifenesin [Mucinex] 600 mg PO BID #20 tab.er.12h 04/17/18 Prednisone 10 mg PO BID #10 04/22/18 - Allergies Allergies/Adverse Reactions: Allergies Allergy/AdvReac Type Severity Reaction Status Date / Time No Known Allergies Allergy Unverified 04/29/18 16:35 Review of Systems ROS Statement: Except As Marked, All Systems Reviewed And Found Negative Cardiovascular: Positive for: Chest Pain (midsternal) Respiratory: Positive for: Shortness of Breath Physical Exam - Reviewed Nursing Documentation Reviewed: Yes Vital Signs Reviewed: Yes - Physical Exam Appears: Positive for: Non-toxic, No Acute Distress Head Exam: Positive for: ATRAUMATIC, NORMOCEPHALIC Skin: Positive for: Normal Color, Warm, Dry Eye Exam: Positive for: Normal appearance Neck: Positive for: Normal, Painless ROM Cardiovascular/Chest: Positive for: Regular Rate, Rhythm. Negative for: Murmur Respiratory: Positive for: Wheezing (audibal bilateral wheezing on auscultation). Negative for: Respiratory Distress Extremity: Positive for: Normal ROM Neurologic/Psych: Positive for: Alert, Oriented. Negative for: Motor/Sensory Deficits - ECG O2 Sat by Pulse Oximetry: 98 (RA) Pulse Ox Interpretation: Normal Medical Decision Making Medical Decision Making: Initial Impression: COPD exacerbation and chest pain Initial Plan: --ECG --CMP --Troponin stat --CBC --PTT --Prothrombin time --Chest X-ray --Albuterol 3mL INH --Methylprednisolone 125mg IV --Blood culture --Peak flow Scribe Attestation: Documented by Fady Truong acting as a scribe for Ana Baxter MD. Provider Scribe Attestation: All medical record entries made by the Scribe were at my direction and personally dictated by me. I have reviewed the chart and agree that the record accurately reflects my personal performance of the history, physical exam, medical decision making, and the department course for this patient. I have also personally directed, reviewed, and agree with the discharge instructions and disposition. Disposition - Disposition
[2018-04-29 18:08] LABS: BASO # 0.1 K/uL (0.0-0.2); BASO % 0.7 % (0.0-2.0); EOS # 0.2 K/uL (0.0-0.7); EOS % 1.6 % (0.0-4.0); HEMOGLOBIN 11.7 g/dL (12.0-18.0); LYMPH # 2.2 K/uL (1.0-4.3); LYMPH % 22.8 % (20.0-40.0); MEAN CELL VOLUME 84.7 fl (80.0-94.0); MEAN CORPUSCULAR HEMOGLOBIN 27.8 pg (27.0-31.0); MEAN CORPUSCULAR HGB CONC 32.9 g/dL (33.0-37.0); MEAN PLATELET VOLUME 8.3 fl (7.2-11.7); MONO # 0.8 K/uL (0.0-0.8); MONO % 7.6 % (0.0-10.0); NEUT # 6.7 K/uL (1.8-7.0); NEUT % 67.3 % (50.0-75.0); RBC 4.21 Mil/uL (4.40-5.90); RED CELL DISTRIBUTION WIDTH 18.6 % (11.5-14.5); WHITE BLOOD COUNT 9.9 K/uL (4.8-10.8)
--- NOTE | 2018-04-29 18:08 | RAD ---
Date of service: 04/29/2018 HISTORY: SOB COMPARISON: 04/24/2018. FINDINGS: LUNGS: No active pulmonary disease. PLEURA: No significant pleural effusion identified, no pneumothorax apparent. CARDIOVASCULAR: No radiographic findings to suggest acute or significant cardiovascular disease. OSSEOUS STRUCTURES: No significant abnormalities. VISUALIZED UPPER ABDOMEN: Normal. OTHER FINDINGS: None. IMPRESSION: No active disease. No significant interval change compared to the prior examination(s).
[2018-04-29 18:13] LABS: INR 1.1; PROTHROMBIN TIME 11.8 Seconds (9.8-13.1)
[2018-04-29 18:16] LABS: PARTIAL THROMBOPLASTIN TIME 24.2 Seconds (25.6-37.1)
[2018-04-29] MEDS ORDERED: Albuterol-Ipratrop 3 mg / 0.5 (3 ml) UD ONE ×2 (18:20→19:33)
[2018-04-29 18:32] LABS: ALB/GLOB RATIO 1.1 (1.0-2.1); ALBUMIN 3.2 g/dL (3.5-5.0); ALT/SGPT 37 U/L (21-72); AST/SGOT 21 U/L (17-59); BLOOD UREA NITROGEN 20 mg/dl (9-20); GFR NON-AFRICAN AMERICAN > 60
--- NOTE | 2018-04-29 21:37 | CP.PCM.HP ---
<Sanjiv Haynes - Last Filed: 04/29/18 21:47> History of Present Illness - History of Present Illness History of Present Illness: CC: Cough and SOB x 1day HPI: 67 y/o male, well know to our service, with a PMHx of COPD, NIDDM2, HTN, PE w IVC filter (not on AC) and psoriasis presented to [facility] ER for evaluation of worsening cough and SOB. He reports symptoms started this morning without inciting event. Reports worsening cough, increased sputum, and yellow sputum production. Denies fever/chills, headaches, changes in vision, CP/Palpitations, N/V/D/C, urinary symptoms. PMD: None PMH: COPD, NIDDM2, HTN, PE s/p IVC filter-2014 (not on anticoagulation), hx of retroperitoneal hematoma (2014) and psoriasis Medications: none Allergies: NKDA PSH: IVC filter Fam: denies SOC: former smoker (30 pack years, quit 1 yr ago), former Etoh abuse (last drink in 04/2017), denies drug use; is homeless, sometimes sleeps in his friends house Present on Admission - Present on Admission Any Indicators Present on Admission: Yes History of DVT/PE: Yes History of Uncontrolled Diabetes: Yes Urinary Catheter: No Decubitus Ulcer Present: No Past Patient History - Infectious Disease Hx of Infectious Diseases: None - Tetanus Immunizations Tetanus Immunization: Unknown - Past Medical History & Family History Past Medical History?: Yes - Past Social History Smoking Status: Former Smoker Alcohol: None Drugs: Denies Home Situation {Lives}: Homeless - CARDIAC Hx Congestive Heart Failure: Yes Hx Hypercholesterolemia: Yes Hx Hypertension: Yes - PULMONARY Hx Asthma: Yes Hx Chronic Obstructive Pulmonary Disease (COPD): Yes Hx Pneumonia: Yes Hx Pulmonary Embolism: Yes - NEUROLOGICAL Hx Neurological Disorder: No - HEENT Hx HEENT Problems: No - RENAL Hx Chronic Kidney Disease: No - ENDOCRINE/METABOLIC Hx Endocrine Disorders: Yes Hx Diabetes Mellitus Type 2: Yes - HEMATOLOGICAL/ONCOLOGICAL Hx Human Immunodeficiency Virus (HIV): No - INTEGUMENTARY Hx Dermatological Problems: Yes (GENERALIZED SKIN PSORIASIS) - MUSCULOSKELETAL/RHEUMATOLOGICAL Hx Musculoskeletal Disorders: Yes Hx Falls: No - GASTROINTESTINAL Hx Gastrointestinal Disorders: Yes Other/Comment: GI bleeding - GENITOURINARY/GYNECOLOGICAL Hx Genitourinary Disorders: No - PSYCHIATRIC Hx Psychophysiologic Disorder: No Hx Substance Use: No - SURGICAL HISTORY Hx Surgeries: Yes Other/Comment: IVC Filter - ANESTHESIA Hx Anesthesia: Yes Hx Anesthesia Reactions: No Hx Malignant Hyperthermia: No Meds Allergies/Adverse Reactions: Allergies Allergy/AdvReac Type Severity Reaction Status Date / Time No Known Allergies Allergy Unverified 04/29/18 16:35 Physical Exam - Constitutional Appears: Non-toxic, No Acute Distress, Unkempt - Head Exam Head Exam: ATRAUMATIC, NORMOCEPHALIC - Eye Exam Eye Exam: EOMI. absent: Nystagmus, Scleral icterus Pupil Exam: PERRL - ENT Exam ENT Exam: Mucous Membranes Moist - Neck Exam Neck exam: Positive for: Normal Inspection. Negative for: Lymphadenopathy - Respiratory Exam Respiratory Exam: Rhonchi, Wheezes, NORMAL BREATHING PATTERN. absent: Accessory Muscle Use, Decreased Breath Sounds, Clear to Auscultation Bilateral, Rales, Respiratory Distress - Cardiovascular Exam Cardiovascular Exam: REGULAR RHYTHM, RRR, +S1, +S2. absent: Tachycardia, Irregular Rhythm, JVD, Rubs, Systolic Murmur - GI/Abdominal Exam GI & Abdominal Exam: Normal Bowel Sounds, Soft. absent: Tenderness - Extremities Exam Extremities exam: Positive for: normal capillary refill, normal inspection, ten derness, pedal pulses present. Negative for: pedal edema - Neurological Exam Neurological exam: Alert, CN II-XII Intact, Oriented x3 - Psychiatric Exam Psychiatric exam: Normal Affect, Normal Mood - Skin Skin Exam: Dry, Rash (psoriaic lesions ), Warm Results - Vital Signs Recent Vital Signs: Last Vital Signs Temp 98.0 F 04/29/18 16:35 Pulse 108 H 04/29/18 16:35 Resp 26 H 04/29/18 16:35 BP 143/73 04/29/18 16:35 Pulse Ox 98 04/29/18 17:52 - Labs Result Diagrams: 04/29/18 18:00 04/29/18 18:00 Labs: Laboratory Results - last 24 hr 04/29/18 04/29/18 04/29/18 18:00 18:00 18:00 WBC 9.9 RBC 4.21 L Hgb 11.7 L Hct 35.6 MCV 84.7 MCH 27.8 MCHC 32.9 L RDW 18.6 H Plt Count 158 MPV 8.3 Neut % (Auto) 67.3 Lymph % (Auto) 22.8 [place] % (Auto) 7.6 Eos % (Auto) 1.6 Baso % (Auto) 0.7 Neut # (Auto) 6.7 Lymph # (Auto) 2.2 [place] # (Auto) 0.8 Eos # (Auto) 0.2 Baso # (Auto) 0.1 PT 11.8 INR 1.1 APTT 24.2 L Sodium 139 Potassium 3.0 L Chloride 104 Carbon Dioxide 29 Anion Gap 9 L BUN 20 Creatinine 0.6 L Est GFR ( Amer) > 60 Est GFR (Non-Af Amer) > 60 Random Glucose 176 H Calcium 8.0 L Total Bilirubin 0.5 AST 21 ALT 37 Alkaline Phosphatase 59 Troponin I 0.0360 Total Protein 6.3 Albumin 3.2 L Globulin 3.0 Albumin/Globulin Ratio 1.1 Assessment & Plan - Assessment and Plan (Free Text) Assessment: 67 y/o male with a PMHx of COPD, HTN, NIDDM2, PE (w IVC filter) and Psoriasis admitted for Acute COPD exacerbation. Plan: 1) Acute COPD Exacerbation -afebrile -normal white count -Duo-neb Q4H -Resume Advair -supplemental O2 via NC PRN -repeat AM labs 2) Hypokalemia: -3.0 on admission -K-runs x3 -KCl PO 20 mEq -repeat BMP in AM 3) NIDDM2 -uncontrolled -most recent HBA1C 8.8 -Resume metformin 500mg BID -Lispo Correction scale, medium protocol -accuchecks ACHS 4) HTN -controlled -monitor BP 5) Hx of PE with IVC Filter -Lovenox 40mg SC QD 6) Prophylaxis -lovenox 40mg SC QD 7) Diet -heart healthy/moderate carbohydrate 8) Code status -full code <Edouard Tafoya - Last Filed: 04/30/18 06:34> Results - Vital Signs Recent Vital Signs: Last Vital Signs Temp 98.7 F 04/30/18 05:07 Pulse 102 H 04/30/18 05:07 Resp 22 04/30/18 05:07 BP 145/74 04/30/18 05:07 Pulse Ox 100 04/30/18 05:07 - Labs Result Diagrams: 04/29/18 18:00 04/29/18 18:00 Labs: Laboratory Results - last 24 hr 1004/29/18 04/29/18 18:00 18:00 18:00 WBC 9.9 RBC 4.21 L Hgb 11.7 L Hct 35.6 MCV 84.7 MCH 27.8 MCHC 32.9 L RDW 18.6 H Plt Count 158 MPV 8.3 Neut % (Auto) 67.3 Lymph % (Auto) 22.8 [place] % (Auto) 7.6 Eos % (Auto) 1.6 Baso % (Auto) 0.7 Neut # (Auto) 6.7 Lymph # (Auto) 2.2 [place] # (Auto) 0.8 Eos # (Auto) 0.2 Baso # (Auto) 0.1 PT 11.8 INR 1.1 APTT 24.2 L Sodium 139 Potassium 3.0 L Chloride 104 Carbon Dioxide 29 Anion Gap 9 L BUN 20 Creatinine 0.6 L Est GFR ( Amer) > 60 Est GFR (Non-Af Amer) > 60 POC Glucose (mg/dL) Random Glucose 176 H Calcium 8.0 L Total Bilirubin 0.5 AST 21 ALT 37 Alkaline Phosphatase 59 Troponin I 0.0360 Total Protein 6.3 Albumin 3.2 L Globulin 3.0 Albumin/Globulin Ratio 1.1 04/30/18 05:00 WBC RBC Hgb Hct MCV MCH MCHC RDW Plt Count MPV Neut % (Auto) Lymph % (Auto) [place] % (Auto) Eos % (Auto) Baso % (Auto) Neut # (Auto) Lymph # (Auto) [place] # (Auto) Eos # (Auto) Baso # (Auto) PT INR APTT Sodium Potassium Chloride Carbon Dioxide Anion Gap BUN Creatinine Est GFR ( Amer) Est GFR (Non-Af Amer) POC Glucose (mg/dL) > 500 H* Random Glucose Calcium Total Bilirubin AST ALT Alkaline Phosphatase Troponin I Total Protein Albumin Globulin Albumin/Globulin Ratio Attending/Attestation - Attestation I have personally seen and examined this patient.: Yes I have fully participated in the care of the patient.: Yes I have reviewed all pertinent clinical information: Yes Notes (Text): 04/30/18 06:29 I Saw and examined this patient shoulder to shoulder with Dr Haynes. I agree with the assessment and plan above. This is a 67 years old male frequently seen at the ED for COPD exacerbation. On this occasion he comes with SEVERE SOB and wheezes not controlled with the three doses of Duoneb and Methylprednisone in the ED. He is admitted for continued treatment and will need older adult social work specialist to see the possibility of a skilled nursing placement. Edouard Tafoya MD Hospitalist
[2018-04-29] MEDS ORDERED: Dextrose 50% SYRINGE Inj (50 ml) IV PRN (21:39)
[2018-04-29] MEDS ORDERED: Glucagon Recombinant 1 mg Inj IM PRN (21:39)
[2018-04-29] MEDS ORDERED: Potassium Chloride 20 mEq/15 ml LIQ UD PO ONE (21:49)
[2018-04-29] MEDS ORDERED: Potassium Chloride 20 mEq ER Tab PO ONE (22:33)
[2018-04-30] MEDS: Insulin Lispro (humaLOG) 100 Units/ml Inj SC SCH ×5 (00:58→22:38)
[2018-04-30] MEDS: Albuterol-Ipratrop 3 mg / 0.5 (3 ml) UD INH SCH ×6 (02:24→18:59)
[2018-04-30] MEDS: Potassium CL 10 MEQ/50 ML 50 ML IVPB SCH ×2 (06:39→06:40)
[2018-04-30 07:06] LABS: HEMOGLOBIN 11.5 g/dL (12.0-18.0); MEAN CELL VOLUME 83.8 fl (80.0-94.0); MEAN CORPUSCULAR HEMOGLOBIN 27.5 pg (27.0-31.0); MEAN CORPUSCULAR HGB CONC 32.8 g/dL (33.0-37.0); RBC 4.19 Mil/uL (4.40-5.90); RED CELL DISTRIBUTION WIDTH 18.8 % (11.5-14.5); WHITE BLOOD COUNT 9.2 K/uL (4.8-10.8)
[2018-04-30 07:25] LABS: BLOOD UREA NITROGEN 28 mg/dl (9-20); CALCIUM 8.1 mg/dL (8.4-10.2); GFR NON-AFRICAN AMERICAN > 60
[2018-04-30] MEDS ORDERED: Insulin Regular 100 units/ml SC STA (07:41)
--- NOTE | 2018-04-30 08:20 | CP.PCM.PN ---
<Venkatesh Rosario - Last Filed: 04/30/18 10:37> Subjective - Date & Time of Evaluation Date of Evaluation: 04/30/18 Time of Evaluation: 10:19 - Subjective Subjective: Patient seen resting in his chair on nasal canula saturating well. States he did not sleep well secondary to coughing and difficulty breathing. Continues to cough during interview session. Patient has remained afebrile overnight. - Has been eating well. Denies any chest pain, N/V/D Objective - Vital Signs/Intake and Output Vital Signs (last 24 hours): Temp Pulse Resp BP Pulse Ox 98.7 F 102 H 22 145/74 100 04/30/18 05:07 04/30/18 05:07 04/30/18 05:07 04/30/18 05:07 04/30/18 05:07 - Medications Medications: Current Medications Albuterol/Ipratropium (Duoneb 3 Mg/0.5 Mg (3 Ml) Ud) 3 ml INH RQ4 [facility] Last Admin: 04/30/18 07:06 Dose: 3 ml Amlodipine Besylate (Norvasc) 5 mg PO DAILY [facility] Dextrose (Dextrose 50% Inj) 0 ml IV STAT PRN; Protocol PRN Reason: Hypoglycemia Protocol Dextrose (Glutose 15) 0 gm PO ONCE PRN; Protocol PRN Reason: Hypoglycemia Protocol Enoxaparin Sodium (Lovenox) 40 mg SC DAILY [facility]; Protocol Glipizide (Glucotrol) 10 mg PO BIDAC [facility] Glucagon (Glucagen Diagnostic Kit) 0 mg IM STAT PRN; Protocol PRN Reason: Hypoglycemia Protocol Guaifenesin (Mucinex La) 600 mg PO BID [facility] Guaifenesin/Dextromethorphan (Mucinex-Dm 600-30 Mg) 1 tab PO BID [facility] Sodium Chloride (Sodium Chloride 0.9%) 1,000 mls @ 150 mls/hr IV .Q6H40M [facility] Stop: 05/01/18 07:43 Insulin Human Lispro (Humalog) 0 units SC ACHS [facility]; Protocol Last Admin: 04/30/18 06:42 Dose: 10 units Insulin Human Regular (Humulin R) 10 units SC STAT STA Stop: 04/30/18 07:42 Metformin HCl (Glucophage) 500 mg PO BIDWM [facility] Methylprednisolone (Solu-Medrol) 40 mg IVP Q12 [facility] Montelukast Sodium (Singulair) 10 mg PO HS [facility] Fluticasone/Salmeterol (Advair Diskus 100/50) 1 puff IH Q12 [facility] Fluticasone/Salmeterol (Advair Diskus 500/50) 1 puff IH Q12 [facility] - Labs Labs: 04/30/18 06:30 04/30/18 06:30 PT 11.8 Seconds (9.8-13.1) 04/29/18 18:00 INR 1.1 04/29/18 18:00 APTT 24.2 Seconds (25.6-37.1) L 04/29/18 18:00 - Constitutional Appears: No Acute Distress, Unkempt - Head Exam Head Exam: ATRAUMATIC, NORMAL INSPECTION - Eye Exam Eye Exam: EOMI - Respiratory Exam Respiratory Exam: Rhonchi, Wheezes, NORMAL BREATHING PATTERN. absent: Respiratory Distress - Cardiovascular Exam Cardiovascular Exam: RRR, +S1, +S2 - GI/Abdominal Exam GI & Abdominal Exam: Soft. absent: Tenderness - Extremities Exam Extremities Exam: absent: Pedal Edema - Neurological Exam Neurological Exam: Alert, Awake, CN II-XII Intact, Oriented x3 - Skin Skin Exam: Dry Additional comments: psoratic lesions Assessment and Plan - Assessment and Plan (Free Text) Assessment: 67 y/o male with a PMHx of COPD, HTN, NIDDM2, PE (w IVC filter) and Psoriasis admitted for Acute COPD exacerbation. Plan: 1) Acute COPD Exacerbation -afebrile - Non compliant with home medication -normal white count -C/W Duo-neb Q4H -Resume Advair - Methylprednisone 40 mg IVP Q12 taper -supplemental O2 via NC PRN 2) NIDDM2 -uncontrolled - Blood sugar 500 this morning most likely secondary to steroids. 10 units insulin given and started on IVF -most recent HBA1C 8.8 -Resume metformin 500mg BID -Lispo Correction scale, medium protocol -accuchecks ACHS 3) HTN -controlled -monitor BP 4) Hx of PE with IVC Filter -Lovenox 40mg SC QD 5) Prophylaxis -lovenox 40mg SC QD 6) Code status -full code <Jurgen Taylor - Last Filed: 04/30/18 16:04> Objective - Vital Signs/Intake and Output Vital Signs (last 24 hours): Temp Pulse Resp BP Pulse Ox 98.2 F 108 H 20 122/62 100 04/30/18 16:02 04/30/18 16:02 04/30/18 16:02 04/30/18 16:02 04/30/18 16:02 - Medications Medications: Current Medications Albuterol/Ipratropium (Duoneb 3 Mg/0.5 Mg (3 Ml) Ud) 3 ml INH RQ4 [facility] Last Admin: 04/30/18 15:20 Dose: 3 ml Amlodipine Besylate (Norvasc) 5 mg PO DAILY [facility] Last Admin: 04/30/18 09:23 Dose: 5 mg Dextrose (Dextrose 50% Inj) 0 ml IV STAT PRN; Protocol PRN Reason: Hypoglycemia Protocol Dextrose (Glutose 15) 0 gm PO ONCE PRN; Protocol PRN Reason: Hypoglycemia Protocol Enoxaparin Sodium (Lovenox) 40 mg SC DAILY [facility]; Protocol Last Admin: 04/30/18 09:24 Dose: 40 mg Glipizide (Glucotrol) 10 mg PO BIDAC [facility] Glucagon (Glucagen Diagnostic Kit) 0 mg IM STAT PRN; Protocol PRN Reason: Hypoglycemia Protocol Guaifenesin (Mucinex La) 600 mg PO BID [facility] Last Admin: 04/30/18 11:22 Dose: 600 mg Sodium Chloride (Sodium Chloride 0.9%) 1,000 mls @ 150 mls/hr IV .Q6H40M [facility] Stop: 05/01/18 07:43 Last Admin: 04/30/18 11:26 Dose: 150 mls/hr Insulin Human Lispro (Humalog) 0 units SC ACHS [facility]; Protocol Last Admin: 04/30/18 12:10 Dose: 8 units Metformin HCl (Glucophage) 500 mg PO BIDWM [facility] Last Admin: 04/30/18 11:24 Dose: 500 mg Methylprednisolone (Solu-Medrol) 40 mg IVP Q12 [facility] Last Admin: 04/30/18 09:18 Dose: 40 mg Montelukast Sodium (Singulair) 10 mg PO HS [facility] Fluticasone/Salmeterol (Advair Diskus 500/50) 1 puff IH Q12 [facility] Last Admin: 04/30/18 11:25 Dose: 1 puff - Labs Labs: 04/30/18 06:30 04/30/18 06:30 PT 11.8 Seconds (9.8-13.1) 04/29/18 18:00 INR 1.1 04/29/18 18:00 APTT 24.2 Seconds (25.6-37.1) L 04/29/18 18:00 Attending/Attestation - Attestation I have personally seen and examined this patient.: Yes I have fully participated in the care of the patient.: Yes I have reviewed all pertinent clinical information, including history, physical exam and plan: Yes Notes (Text): 04/30/18 16:03 Patient seen and examined with resident. Case discussed and agreed with assessment and plan of management.
[2018-04-30] MEDS ORDERED: guaiFENesin-DM 600-30 mg ER Tab PO SCH (09:00)
[2018-04-30] MEDS ORDERED: methylPREDNISolone 40 MG in Sodium Chloride 0.9% 50 ML IVPB SCH (09:00)
[2018-04-30] MEDS ORDERED: Fluticasone-Salmeterol 100-50mcg Diskus IH SCH (09:00)
[2018-04-30] MEDS: MethylPREDNISolone 40 mg Vial IVP SCH ×2 (09:18→21:27)
[2018-04-30] MEDS: Enoxaparin 40 mg Syringe SC SCH (09:24)
--- NOTE | 2018-04-30 10:42 | CARD ---
APPROVED REPORT Date of service: 04/29/2018 EKG Measurement Heart [id number] [place] 130P68 [id number] <Conclusion> Sinus tachycardia Nonspecific ST and T wave abnormality Abnormal ECG
[2018-04-30] MEDS: guaiFENesin 600 mg ER Tab PO SCH ×2 (11:22→18:47)
[2018-04-30] MEDS: Fluticasone-Salmeterol 500-50mcg Diskus IH SCH ×2 (11:25→21:26)
[2018-04-30] MEDS: Sodium Chloride 0.9% 1,000 ML IV SCH ×2 (11:26→16:47)
[2018-05-01] MEDS: Albuterol-Ipratrop 3 mg / 0.5 (3 ml) UD INH SCH ×6 (00:05→19:15)
[2018-05-01] MEDS: Insulin Lispro (humaLOG) 100 Units/ml Inj SC SCH ×4 (06:57→21:28)
[2018-05-01] MEDS: Fluticasone-Salmeterol 500-50mcg Diskus IH SCH ×2 (08:38→21:22)
[2018-05-01] MEDS: guaiFENesin 600 mg ER Tab PO SCH ×2 (08:39→16:39)
[2018-05-01] MEDS: Enoxaparin 40 mg Syringe SC SCH (08:39)
[2018-05-01] MEDS: MethylPREDNISolone 40 mg Vial IVP SCH (08:41)
--- NOTE | 2018-05-01 14:00 | CP.PCM.PN ---
<Venkatesh Rosario - Last Filed: 05/01/18 14:07> Subjective - Date & Time of Evaluation Date of Evaluation: 05/01/18 Time of Evaluation: 13:55 - Subjective Subjective: 67 YO M seen resting in his chair. States he is still having difficulty with his breathing and continues to have a productive cough. Denies any fever, chills, nausea or vomiting. - Has a good appetite and has been eating well. Objective - Vital Signs/Intake and Output Vital Signs (last 24 hours): Temp Pulse Resp BP Pulse Ox 98 F 111 H 20 139/74 100 05/01/18 12:52 05/01/18 12:52 05/01/18 12:52 05/01/18 12:52 05/01/18 12:52 - Medications Medications: Current Medications Albuterol/Ipratropium (Duoneb 3 Mg/0.5 Mg (3 Ml) Ud) 3 ml INH RQ4 [facility] Last Admin: 05/01/18 11:17 Dose: 3 ml Amlodipine Besylate (Norvasc) 5 mg PO DAILY [facility] Last Admin: 05/01/18 08:40 Dose: 5 mg Dextrose (Dextrose 50% Inj) 0 ml IV STAT PRN; Protocol PRN Reason: Hypoglycemia Protocol Dextrose (Glutose 15) 0 gm PO ONCE PRN; Protocol PRN Reason: Hypoglycemia Protocol Enoxaparin Sodium (Lovenox) 40 mg SC DAILY [facility]; Protocol Last Admin: 05/01/18 08:39 Dose: 40 mg Glipizide (Glucotrol) 10 mg PO BIDAC [facility] Last Admin: 05/01/18 08:41 Dose: 10 mg Glucagon (Glucagen Diagnostic Kit) 0 mg IM STAT PRN; Protocol PRN Reason: Hypoglycemia Protocol Guaifenesin (Mucinex La) 600 mg PO BID [facility] Last Admin: 05/01/18 08:39 Dose: 600 mg Insulin Human Lispro (Humalog) 0 units SC ACHS [facility]; Protocol Last Admin: 05/01/18 12:19 Dose: 4 units Metformin HCl (Glucophage) 500 mg PO BIDWM [facility] Last Admin: 05/01/18 08:39 Dose: 500 mg Methylprednisolone (Solu-Medrol) 40 mg IVP Q12 [facility] Last Admin: 05/01/18 08:41 Dose: 40 mg Montelukast Sodium (Singulair) 10 mg PO HS [facility] Last Admin: 04/30/18 21:27 Dose: 10 mg Fluticasone/Salmeterol (Advair Diskus 500/50) 1 puff IH Q12 [facility] Last Admin: 05/01/18 08:38 Dose: 1 puff - Labs Labs: 04/30/18 06:30 04/30/18 06:30 PT 11.8 Seconds (9.8-13.1) 04/29/18 18:00 INR 1.1 04/29/18 18:00 APTT 24.2 Seconds (25.6-37.1) L 04/29/18 18:00 - Constitutional Appears: No Acute Distress - Head Exam Head Exam: NORMAL INSPECTION - Eye Exam Eye Exam: Normal appearance - Respiratory Exam Respiratory Exam: Rhonchi, Wheezes, NORMAL BREATHING PATTERN. absent: Respiratory Distress - Cardiovascular Exam Cardiovascular Exam: Tachycardia, +S1, +S2 - GI/Abdominal Exam GI & Abdominal Exam: Soft, Normal Bowel Sounds. absent: Tenderness - Extremities Exam Extremities Exam: absent: Pedal Edema - Neurological Exam Neurological Exam: Alert, Awake, Normal Gait, Oriented x3 - Skin Skin Exam: Normal Color, Warm Assessment and Plan - Assessment and Plan (Free Text) Assessment: 67 y/o male with a PMHx of COPD, HTN, NIDDM2, PE (w IVC filter) and Psoriasis admitted for Acute COPD exacerbation. Plan: 1) Acute COPD Exacerbation -afebrile - Non compliant with home medication -normal white count -C/W Duo-neb Q4H -C/W Advair - Taper Methylprednisone down to 30 mg IVP Q12 taper -supplemental O2 via NC PRN 2) NIDDM2 -uncontrolled - Blood sugar elevated most likely secondary to steroids -most recent HBA1C 8.8 -Resume metformin 500mg BID -Lispo Correction scale, medium protocol -accuchecks ACHS 3) HTN -controlled -monitor BP 4) Hx of PE with IVC Filter -Lovenox 40mg SC QD for DVT prophylaxis 5) Code status -full code <Jurgen Taylor - Last Filed: 05/01/18 16:04> Objective - Vital Signs/Intake and Output Vital Signs (last 24 hours): Temp Pulse Resp BP Pulse Ox 98 F 111 H 20 139/74 100 05/01/18 12:52 05/01/18 12:52 05/01/18 12:52 05/01/18 12:52 05/01/18 12:52 - Medications Medications: Current Medications Albuterol/Ipratropium (Duoneb 3 Mg/0.5 Mg (3 Ml) Ud) 3 ml INH RQ4 [facility] Last Admin: 05/01/18 15:18 Dose: 3 ml Amlodipine Besylate (Norvasc) 5 mg PO DAILY [facility] Last Admin: 05/01/18 08:40 Dose: 5 mg Dextrose (Dextrose 50% Inj) 0 ml IV STAT PRN; Protocol PRN Reason: Hypoglycemia Protocol Dextrose (Glutose 15) 0 gm PO ONCE PRN; Protocol PRN Reason: Hypoglycemia Protocol Enoxaparin Sodium (Lovenox) 40 mg SC DAILY [facility]; Protocol Last Admin: 05/01/18 08:39 Dose: 40 mg Glipizide (Glucotrol) 10 mg PO BIDAC [facility] Last Admin: 05/01/18 08:41 Dose: 10 mg Glucagon (Glucagen Diagnostic Kit) 0 mg IM STAT PRN; Protocol PRN Reason: Hypoglycemia Protocol Guaifenesin (Mucinex La) 600 mg PO BID [facility] Last Admin: 05/01/18 08:39 Dose: 600 mg Insulin Human Lispro (Humalog) 0 units SC ACHS [facility]; Protocol Last Admin: 05/01/18 12:19 Dose: 4 units Metformin HCl (Glucophage) 500 mg PO BIDWM [facility] Last Admin: 05/01/18 08:39 Dose: 500 mg Methylprednisolone (Solu-Medrol) 30 mg IVP Q12 [facility] Montelukast Sodium (Singulair) 10 mg PO HS [facility] Last Admin: 04/30/18 21:27 Dose: 10 mg Fluticasone/Salmeterol (Advair Diskus 500/50) 1 puff IH Q12 [facility] Last Admin: 05/01/18 08:38 Dose: 1 puff - Labs Labs: 04/30/18 06:30 04/30/18 06:30 PT 11.8 Seconds (9.8-13.1) 04/29/18 18:00 INR 1.1 04/29/18 18:00 APTT 24.2 Seconds (25.6-37.1) L 04/29/18 18:00 Attending/Attestation - Attestation I have personally seen and examined this patient.: Yes I have fully participated in the care of the patient.: Yes I have reviewed all pertinent clinical information, including history, physical exam and plan: Yes Notes (Text): 05/01/18 16:04 Patient seen and examined with resident. Case discussed and agreed with assessment and plan of management.
[2018-05-01] MEDS ORDERED: MethylPREDNISolone 40 mg Vial IVP SCH (21:00)
[2018-05-02] MEDS: Albuterol-Ipratrop 3 mg / 0.5 (3 ml) UD INH SCH ×5 (00:50→15:07)
[2018-05-02] MEDS: Insulin Lispro (humaLOG) 100 Units/ml Inj SC SCH ×3 (05:42→16:40)
[2018-05-02] MEDS: Enoxaparin 40 mg Syringe SC SCH (08:16)
[2018-05-02] MEDS: guaiFENesin 600 mg ER Tab PO SCH ×2 (08:16→16:39)
[2018-05-02] MEDS: Fluticasone-Salmeterol 500-50mcg Diskus IH SCH (08:19)
[2018-05-02] MEDS ORDERED: MethylPREDNISolone 40 mg Vial IVP SCH (09:00)
--- NOTE | 2018-05-02 13:14 | CP.PCM.DIS ---
Addendum entered by Muriel Lamas MD 05/02/18 16:01: COPD , Acute exacerbation - Pt's SOB improved - saturating 98-=100% on RA - cont home meds - Prednisone 10mg daily DM Type II with Hyperglycemia due to steroids Original Note: <Yris Chandler - Last Filed: 05/02/18 14:40> Provider - Provider Date of Admission: 04/29/18 20:33 Attending physician: Edouard Tafoya Time Spent in preparation of Discharge (in minutes): 30 Hospital Course - Lab Results Lab Results: Micro Results 04/29/18 19:01 Blood-Venous Blood Culture - Preliminary NO GROWTH AFTER 48 HOURS 04/29/18 18:00 Blood-Venous Blood Culture - Preliminary NO GROWTH AFTER 48 HOURS Most Recent Lab Values WBC 9.2 K/uL (4.8-10.8) 04/30/18 06:30 RBC 4.19 Mil/uL (4.40-5.90) L 04/30/18 06:30 Hgb 11.5 g/dL (12.0-18.0) L 04/30/18 06:30 Hct 35.2 % (35.0-51.0) 04/30/18 06:30 MCV 83.8 fl (80.0-94.0) 04/30/18 06:30 MCH 27.5 pg (27.0-31.0) 04/30/18 06:30 MCHC 32.8 g/dL (33.0-37.0) L 04/30/18 06:30 RDW 18.8 % (11.5-14.5) H 04/30/18 06:30 Plt Count 168 K/uL (130-400) 04/30/18 06:30 MPV 8.3 fl (7.2-11.7) 04/29/18 18:00 Neut % (Auto) 67.3 % (50.0-75.0) 04/29/18 18:00 Lymph % (Auto) 22.8 % (20.0-40.0) 04/29/18 18:00 [place] % (Auto) 7.6 % (0.0-10.0) 04/29/18 18:00 Eos % (Auto) 1.6 % (0.0-4.0) 04/29/18 18:00 Baso % (Auto) 0.7 % (0.0-2.0) 04/29/18 18:00 Neut # (Auto) 6.7 K/uL (1.8-7.0) 04/29/18 18:00 Lymph # (Auto) 2.2 K/uL (1.0-4.3) 04/29/18 18:00 [place] # (Auto) 0.8 K/uL (0.0-0.8) 04/29/18 18:00 Eos # (Auto) 0.2 K/uL (0.0-0.7) 04/29/18 18:00 Baso # (Auto) 0.1 K/uL (0.0-0.2) 04/29/18 18:00 PT 11.8 Seconds (9.8-13.1) 04/29/18 18:00 INR 1.1 04/29/18 18:00 APTT 24.2 Seconds (25.6-37.1) L 04/29/18 18:00 Sodium 137 mmol/l (132-148) 04/30/18 06:30 Potassium 4.0 MMOL/L (3.6-5.0) 04/30/18 06:30 Chloride 99 mmol/L (98-107) 04/30/18 06:30 Carbon Dioxide 30 mmol/L (22-30) 04/30/18 06:30 Anion Gap 12 (10-20) 04/30/18 06:30 BUN 28 mg/dl (9-20) H 04/30/18 06:30 Creatinine 0.7 mg/dl (0.8-1.5) L 04/30/18 06:30 Est GFR ( Amer) > 60 04/30/18 06:30 Est GFR (Non-Af Amer) > 60 04/30/18 06:30 POC Glucose (mg/dL) 415 mg/dL (65-110) H* 05/02/18 05:07 Random Glucose 616 mg/dL (75-110) H* D 04/30/18 06:30 Calcium 8.1 mg/dL (8.4-10.2) L 04/30/18 06:30 Total Bilirubin 0.5 mg/dl (0.2-1.3) 10/12/18 18:00 AST 21 U/L (17-59) 18 18:00 ALT 37 U/L (21-72) 04/29/18 18:00 Alkaline Phosphatase 59 U/L (38-126) 04/29/18 18:00 Troponin I 0.0360 ng/mL (0.00-0.120) 04/29/18 18:00 Total Protein 6.3 G/DL (6.3-8.2) 04/29/18 18:00 Albumin 3.2 g/dL (3.5-5.0) L 04/29/18 18:00 Globulin 3.0 gm/dL (2.2-3.9) 04/29/18 18:00 Albumin/Globulin Ratio 1.1 (1.0-2.1) 04/29/18 18:00 - Hospital Course Hospital Course: 67 y/o male with PMHx of COPD, NIDDM2, HTN, PE w IVC filter (not on AC) and psoriasis presented to [facility] ER for evaluation of Acute COPD exacerbation. He was treated with duonebs, advair, supplemental oxygen, and solumedrol. CXR showed significant pleural effusion, no active pulmonary dosease or no pneumothorax. Patient was also found to have hypokalemia, 3.0 on admission. He was given KCL 20mEq PO, and repeat levels were 4.0. Patient was seen and examined this AM with no use of accessory muscles. Patient states his breathing & cough is improved. 1) Acute COPD Exacerbation -Duo-neb -Advair -Albuterol HFA -prednisone 10mg QD x 3 days 2) Hypokalemia (Acute, resolved) 3) NIDDM2 (Chronic, uncontrolled) -Metformin 500mg BID 4) HTN (Chronic, uncontrolled) -Norvasc 5mg 5) Hx of PE with IVC Filter -Not on any medication Discharge Exam - Head Exam Head Exam: NORMAL INSPECTION - Neck Exam Neck exam: Full Rom - Respiratory Exam Additional comments: rhonchi and wheeze noted (likely patient's baseline) but no crackles or rales - Cardiovascular Exam Cardiovascular Exam: REGULAR RHYTHM, +S1, +S2 - GI/Abdominal Exam GI & Abdominal Exam: Normal Bowel Sounds, Soft. absent: Distended, Firm, Guarding - Extremities Exam Additional comments: no calf tenderness - Neurological Exam Neurological exam: Alert, CN II-XII Intact, Oriented x3 - Psychiatric Exam Psychiatric exam: Normal Mood Discharge Plan - Discharge Medications Prescriptions: Fluticasone/Salmeterol 500/50 [Advair Diskus 500/50] 1 puff IH Q12 #1 dsk Prednisone 10 mg PO DAILY 3 Days #3 tab - Follow Up Plan Condition: GOOD Disposition: HOME/ ROUTINE Patient education suggested?: Yes Instructions: Exacerbation of COPD Additional Instructions: Please follow up with Dr. Chandler at [facility] 05/06/2018 at 3pm. Please be sure to arrive 30 minutes prior. <Muriel Lamas - Last Filed: 05/02/18 16:00> Provider - Provider Date of Admission: 04/29/18 20:33 Attending physician: Edouard Tafoya [facility] Course - Lab Results Lab Results: Micro Results 04/29/18 19:01 Blood-Venous Blood Culture - Preliminary NO GROWTH AFTER 48 HOURS 04/29/18 18:00 Blood-Venous Blood Culture - Preliminary NO GROWTH AFTER 48 HOURS Most Recent Lab Values WBC 9.2 K/uL (4.8-10.8) 04/30/18 06:30 RBC 4.19 Mil/uL (4.40-5.90) L 04/30/18 06:30 Hgb 11.5 g/dL (12.0-18.0) L 04/30/18 06:30 Hct 35.2 % (35.0-51.0) 04/30/18 06:30 MCV 83.8 fl (80.0-94.0) 04/30/18 06:30 MCH 27.5 pg (27.0-31.0) 04/30/18 06:30 MCHC 32.8 g/dL (33.0-37.0) L 04/30/18 06:30 RDW 18.8 % (11.5-14.5) H 04/30/18 06:30 Plt Count 168 K/uL (130-400) 04/30/18 06:30 MPV 8.3 fl (7.2-11.7) 04/29/18 18:00 Neut % (Auto) 67.3 % (50.0-75.0) 04/29/18 18:00 Lymph % (Auto) 22.8 % (20.0-40.0) 04/29/18 18:00 [place] % (Auto) 7.6 % (0.0-10.0) 04/29/18 18:00 Eos % (Auto) 1.6 % (0.0-4.0) 04/29/18 18:00 Baso % (Auto) 0.7 % (0.0-2.0) 04/29/18 18:00 Neut # (Auto) 6.7 K/uL (1.8-7.0) 04/29/18 18:00 Lymph # (Auto) 2.2 K/uL (1.0-4.3) 04/29/18 18:00 [place] # (Auto) 0.8 K/uL (0.0-0.8) 04/29/18 18:00 Eos # (Auto) 0.2 K/uL (0.0-0.7) 04/29/18 18:00 Baso # (Auto) 0.1 K/uL (0.0-0.2) 04/29/18 18:00 PT 11.8 Seconds (9.8-13.1) 04/29/18 18:00 INR 1.1 04/29/18 18:00 APTT 24.2 Seconds (25.6-37.1) L 04/29/18 18:00 Sodium 137 mmol/l (132-148) 04/30/18 06:30 Potassium 4.0 MMOL/L (3.6-5.0) 04/30/18 06:30 Chloride 99 mmol/L (98-107) 04/30/18 06:30 Carbon Dioxide 30 mmol/L (22-30) 04/30/18 06:30 Anion Gap 12 (10-20) 04/30/18 06:30 BUN 28 mg/dl (9-20) H 04/30/18 06:30 Creatinine 0.7 mg/dl (0.8-1.5) L 04/30/18 06:30 Est GFR ( Amer) > 60 04/30/18 06:30 Est GFR (Non-Af Amer) > 60 04/30/18 06:30 POC Glucose (mg/dL) 415 mg/dL (65-110) H* 05/02/18 05:07 Random Glucose 616 mg/dL (75-110) H* D 04/30/18 06:30 Calcium 8.1 mg/dL (8.4-10.2) L 04/30/18 06:30 Total Bilirubin 0.5 mg/dl (0.2-1.3) 04/29/18 18:00 AST 21 U/L (17-59) 04/29/18 18:00 ALT 37 U/L (21-72) 04/29/18 18:00 Alkaline Phosphatase 59 U/L (38-126) 04/29/18 18:00 Troponin I 0.0360 ng/mL (0.00-0.120) 04/29/18 18:00 Total Protein 6.3 G/DL (6.3-8.2) 04/29/18 18:00 Albumin 3.2 g/dL (3.5-5.0) L 04/29/18 18:00 Globulin 3.0 gm/dL (2.2-3.9) 04/29/18 18:00 Albumin/Globulin Ratio 1.1 (1.0-2.1) 04/29/18 18:00 Attending/Attestation - Attestation I have personally seen and examined this patient.: Yes I have fully participated in the care of the patient.: Yes I have reviewed all pertinent clinical information, including history, physical exam and plan: Yes
[2018-05-02 16:06] VITALS: BP 162/80; PULSE 96; RESP 20; TEMP 97.7; O2SAT 99
== END 2018-05-02 16:45 | disposition home or self-care (01) | DRG 88 ==
LOC: H.ER 16:28 → H.ERHOLD 20:33 → H.TEL 23:14
PROVIDERS: ADMIT Internal Medicine; ATTEND Internal Medicine
DX: J44.1 Chronic obstructive pulmonary disease with (acute) exacerbation (principal); E87.6 Hypokalemia; I11.0 Hypertensive heart disease with heart failure; E11.65 Type 2 diabetes mellitus with hyperglycemia; I50.9 Heart failure, unspecified; E78.00 Pure hypercholesterolemia, unspecified; Z86.711 Personal history of pulmonary embolism; L40.9 Psoriasis, unspecified; Z59.0 Homelessness; Z91.14 Patient's other noncompliance with medication regimen; T38.0X5A Adverse effect of glucocorticoids and synthetic analogues, initial encounter; Z87.891 Personal history of nicotine dependence

== ENCOUNTER 2018-05-06 16:08 | Emergency (ER) | payer SELFPAY ==
[2018-05-06 16:08] VITALS: BMI 27.5
[2018-05-06] MEDS ORDERED: Albuterol-Ipratrop 3 mg / 0.5 (3 ml) UD INH STA ×3 (16:31→20:33)
[2018-05-06] MEDS ORDERED: Albuterol-Ipratrop 3 mg / 0.5 (3 ml) UD ONE ×2 (16:52→21:42)
--- NOTE | 2018-05-06 17:02 | RAD ---
Date of service: 05/06/2018 HISTORY: SOB COMPARISON: 04/29/2018. FINDINGS: LUNGS: No active pulmonary disease. PLEURA: No significant pleural effusion identified, no pneumothorax apparent. CARDIOVASCULAR: No atherosclerotic calcification present No radiographic findings to suggest acute or significant cardiovascular disease. OSSEOUS STRUCTURES: No significant abnormalities. VISUALIZED UPPER ABDOMEN: Normal. OTHER FINDINGS: None. IMPRESSION: No active disease. No significant interval change compared to the prior examination(s).
[2018-05-06 17:42] LABS: BASO % 0.2 % (0.0-2.0); EOS # 0.1 K/uL (0.0-0.7); EOS % 1.2 % (0.0-4.0); HEMOGLOBIN 11.7 g/dL (12.0-18.0); LYMPH # 2.3 K/uL (1.0-4.3); LYMPH % 28.1 % (20.0-40.0); MEAN CELL VOLUME 84.7 fl (80.0-94.0); MEAN CORPUSCULAR HEMOGLOBIN 27.4 pg (27.0-31.0); MEAN CORPUSCULAR HGB CONC 32.4 g/dL (33.0-37.0); MEAN PLATELET VOLUME 7.9 fl (7.2-11.7); MONO # 0.6 K/uL (0.0-0.8); MONO % 7.4 % (0.0-10.0); NEUT # 5.1 K/uL (1.8-7.0); NEUT % 63.1 % (50.0-75.0); NRBC % 0.1 % (0.0-0.0); RBC 4.27 Mil/uL (4.40-5.90); RED CELL DISTRIBUTION WIDTH 18.3 % (11.5-14.5); WHITE BLOOD COUNT 8.2 K/uL (4.8-10.8)
[2018-05-06 17:58] LABS: ALBUMIN 3.3 g/dL (3.5-5.0); ALT/SGPT 34 U/L (21-72); AST/SGOT 26 U/L (17-59); BLOOD UREA NITROGEN 17 mg/dl (9-20); GFR NON-AFRICAN AMERICAN > 60
[2018-05-06 18:05] LABS: B-TYPE NATRIURETIC PEPTIDE 260 pg/ml (0-900)
--- NOTE | 2018-05-06 20:18 | ED PDOC ---
HPI: SOB/CHF/COPD Time Seen by Provider: 05/06/18 16:32 Chief Complaint (Nursing): Shortness Of Breath Chief Complaint (Provider): Shortness Of Breath History Per: Patient History/Exam Limitations: no limitations Onset/Duration Of Symptoms: Mins Current Symptoms Are (Timing): Still Present Additional Complaint(s): Preet Brown is a 68 year old male with a past medical history of hypertension, diabetes, hypercholesterolemia, CHF and COPD who is presenting to the ED for evaluation of shortness of breath onset just prior to arrival. Patient denies any chest pain, headaches, or any other medical complaints. PMD: none provided Past Medical History Reviewed: Historical Data, Nursing Documentation, Vital Signs Vital Signs: Last Vital Signs Temp 98.1 F 05/06/18 16:23 Pulse 102 H 05/06/18 18:26 Resp 16 05/06/18 18:26 BP 160/93 H 05/06/18 16:23 Pulse Ox 96 05/06/18 18:26 - Medical History PMH: Asthma, CHF, COPD, Diabetes, HTN, Hypercholesterolemia, Pneumonia, Pulmonary Embolism Denies: HIV, Chronic Kidney Disease - Surgical History Other surgeries: IVC Filter - Family History Family History: States: Unknown Family Hx, [place], Diabetes - Social History Current smoker - smoking cessation education provided: No Ex-Smoker (has not smoked in the last 12 months): Yes Alcohol: None Drugs: Denies - Immunization History Hx Tetanus Toxoid Vaccination: No Hx Influenza Vaccination: No Hx Pneumococcal Vaccination: No - Home Medications Home Medications: Ambulatory Orders Medication Instructions Recorded Fluticasone Propionate [Flonase] 2 spr VADIM DAILY bottle 03/08/18 Acetaminophen [Tylenol 325mg tab] 650 mg PO Q6 PRN tab 04/04/18 Albuterol HFA [Ventolin HFA 90 2 puff INH RQ4 PRN #1 inhaler 04/04/18 mcg/actuation (8 g)] Ammonium Lactate 12% [Lac-Hydrin 1 applic TOP TID bottle 04/04/18 12% Lotion (225 g)] Montelukast [Singulair] 10 mg PO HS #30 tab 04/04/18 metFORMIN [glucOPHAGE] 500 mg PO BIDWM #60 tab 04/04/18 amLODIPine [Norvasc] 5 mg PO DAILY #30 tab 04/08/18 Guaifenesin [Mucinex] 600 mg PO BID #20 tab.er.12h 04/17/18 Albuterol/Ipratropium [Duoneb 3 3 ml INH RQ4 neb 05/02/18 mg/0.5 mg (3 ml) UD] Fluticasone/Salmeterol 500/50 1 puff IH Q12 #1 dsk 05/02/18 [Advair Diskus 500/50] Prednisone 10 mg PO DAILY 3 Days #3 tab 05/02/18 Albuterol HFA [Ventolin HFA 90 1 puff IH ASDIR #1 unit 05/06/18 mcg/actuation (8 g)] Prednisone 50 mg PO DAILY #5 tablet 05/06/18 - Allergies Allergies/Adverse Reactions: Allergies Allergy/AdvReac Type Severity Reaction Status Date / Time No Known Allergies Allergy Verified 05/07/18 00:13 Review of Systems ROS Statement: Except As Marked, All Systems Reviewed And Found Negative Cardiovascular: Negative for: Chest Pain Respiratory: Positive for: Shortness of Breath Physical Exam - Reviewed Nursing Documentation Reviewed: Yes Vital Signs Reviewed: Yes - Physical Exam Appears: Positive for: Non-toxic, No Acute Distress Head Exam: Positive for: ATRAUMATIC, NORMAL INSPECTION, NORMOCEPHALIC Skin: Positive for: Normal Color, Warm, DRY Eye Exam: Positive for: EOMI, Normal appearance, PERRL ENT: Positive for: Normal ENT Inspection Neck: Positive for: Normal, Painless ROM Cardiovascular/Chest: Positive for: Regular Rate, Rhythm. Negative for: Murmur Respiratory: Positive for: Wheezing Gastrointestinal/Abdominal: Positive for: Normal Exam, Soft. Negative for: Tenderness Back: Positive for: Normal Inspection Extremity: Positive for: Normal ROM. Negative for: Deformity, Swelling Neurologic/Psych: Positive for: Alert, Oriented. Negative for: Motor/Sensory Deficits - Laboratory Results Result Diagrams: 05/06/18 17:38 05/06/18 17:38 - ECG O2 Sat by Pulse Oximetry: 96 (RA) Pulse Ox Interpretation: Normal Medical Decision Making Medical Decision Making: Time: 17:38 Plan: --Troponin --Duoneb 3 ml INH --Peak Flow Pre/Post Tx patient was signed out to JULIANN Orr pending treatment, evaluation, and final disposition. Scribe Attestation: Documented by Franca Rankin, acting as a scribe for Lavern Yadav PA-C. Provider Scribe Attestation: All medical record entries made by the Scribe were at my direction and personally dictated by me. I have reviewed the chart and agree that the record accurately reflects my personal performance of the history, physical exam, medical decision making, and the department course for this patient. I have also personally directed, reviewed, and agree with the discharge instructions and disposition. Disposition - Clinical Impression Clinical Impression: COPD exacerbation - Patient ED Disposition Is Patient to be Admitted: Yes Counseled Patient/Family Regarding: Diagnosis - Disposition Referrals: [facility] [Outside] Disposition Time: 20:16 Condition: STABLE Prescriptions: Albuterol HFA [Ventolin HFA 90 mcg/actuation (8 g)] 1 puff IH ASDIR #1 unit Prednisone 50 mg PO DAILY #5 tablet Instructions: Chronic Obstructive Pulmonary Disease (COPD), Including Emphysema Forms: [employer] ([place] Islander)
[2018-05-06 20:20] VITALS: TEMP 98.3
--- NOTE | 2018-05-06 20:38 | ED PDOC ---
- Laboratory Results Result Diagrams: 05/06/18 17:38 05/06/18 17:38 - ECG O2 Sat by Pulse Oximetry: 94 Pulse Ox Interpretation: Normal Medical Decision Making Medical Decision Making: Case was signed out to automatic typewriter inspector pending reevaluation. Patient states he feels somewhat better after Solu-Medrol and DuoNeb nebs administered. Case was discussed with hospitalist for possible admission. Patient was evaluated at bedside by hospitalist Dr. Tafoya and family practice resident. Patient's presentation is consistent with his baseline, no admission indicated at this time as per Dr. Tafoya. Patient reports dysuria, urine dip is negative, culture was sent. Prescription provided for prednisone and Ventolin inhaler. Patient was referred to clinic for follow up. Disposition - Clinical Impression Clinical Impression: COPD exacerbation - POA Present On Arrival: None - Disposition Referrals: [facility] [Outside] Disposition: Routine/Home Disposition Time: 22:34 Condition: STABLE Prescriptions: Albuterol HFA [Ventolin HFA 90 mcg/actuation (8 g)] 1 puff IH ASDIR #1 unit Prednisone 50 mg PO DAILY #5 tablet Instructions: Chronic Obstructive Pulmonary Disease (COPD), Including Emphysema Forms: [employer] ([place]er)
[2018-05-06] MEDS ORDERED: Albuterol-Ipratrop 3 mg / 0.5 (3 ml) UD INH PRN (20:55)
[2018-05-06] MEDS ORDERED: Albuterol 0.083% Inhal Sol (2.5 mg/3 mL) UD INH PRN (21:00)
--- NOTE | 2018-05-06 21:05 | CP.PCM.HP ---
Past Patient History - Infectious Disease Hx of Infectious Diseases: None - Tetanus Immunizations Tetanus Immunization: Unknown - Past Medical History & Family History Past Medical History?: Yes - Past Social History Smoking Status: Former Smoker - CARDIAC Hx Congestive Heart Failure: Yes Hx Hypercholesterolemia: Yes Hx Hypertension: Yes - PULMONARY Hx Asthma: Yes Hx Chronic Obstructive Pulmonary Disease (COPD): Yes Hx Pneumonia: Yes Hx Pulmonary Embolism: Yes - NEUROLOGICAL Hx Neurological Disorder: No - HEENT Hx HEENT Problems: No - RENAL Hx Chronic Kidney Disease: No - ENDOCRINE/METABOLIC Hx Endocrine Disorders: Yes Hx Diabetes Mellitus Type 2: Yes - HEMATOLOGICAL/ONCOLOGICAL Hx Human Immunodeficiency Virus (HIV): No - INTEGUMENTARY Hx Dermatological Problems: Yes (GENERALIZED SKIN PSORIASIS) - MUSCULOSKELETAL/RHEUMATOLOGICAL Hx Musculoskeletal Disorders: Yes Hx Falls: Yes - GASTROINTESTINAL Hx Gastrointestinal Disorders: Yes Other/Comment: GI bleeding - GENITOURINARY/GYNECOLOGICAL Hx Genitourinary Disorders: No - PSYCHIATRIC Hx Psychophysiologic Disorder: No Hx Substance Use: No - SURGICAL HISTORY Hx Surgeries: Yes Other/Comment: IVC Filter - ANESTHESIA Hx Anesthesia: Yes Hx Anesthesia Reactions: No Hx Malignant Hyperthermia: No Meds Allergies/Adverse Reactions: Allergies Allergy/AdvReac Type Severity Reaction Status Date / Time No Known Allergies Allergy Unverified 05/06/18 16:15 Results - Vital Signs Recent Vital Signs: Last Vital Signs Temp 98.3 F 05/06/18 20:19 Pulse 107 H 05/06/18 20:19 Resp 20 05/06/18 20:19 BP 136/67 05/06/18 20:19 Pulse Ox 94 L 05/06/18 20:38 - Labs Result Diagrams: 05/06/18 17:38 05/06/18 17:38 Labs: Laboratory Results - last 24 hr 05/06/18 05/06/18 17:38 17:38 WBC 8.2 RBC 4.27 L Hgb 11.7 L Hct 36.2 MCV 84.7 MCH 27.4 MCHC 32.4 L RDW 18.3 H Plt Count 150 MPV 7.9 Neut % (Auto) 63.1 Lymph % (Auto) 28.1 [place] % (Auto) 7.4 Eos % (Auto) 1.2 Baso % (Auto) 0.2 Neut # (Auto) 5.1 Lymph # (Auto) 2.3 [place] # (Auto) 0.6 Eos # (Auto) 0.1 Baso # (Auto) 0.0 Sodium 136 Potassium 3.8 Chloride 101 Carbon Dioxide 31 H Anion Gap 8 L BUN 17 Creatinine 0.8 Est GFR ( Amer) > 60 Est GFR (Non-Af Amer) > 60 Random Glucose 119 H Calcium 8.0 L Total Bilirubin 0.8 AST 26 ALT 34 Alkaline Phosphatase 59 Troponin I 0.0240 NT-Pro-B Natriuret Pep 260 Total Protein 6.4 Albumin 3.3 L Globulin 3.1 Albumin/Globulin Ratio 1.0
[2018-05-06 22:35] LABS: SQUAMOUS EPITHIAL < 1 /hpf (0-5); URINE BILIRUBIN NEGATIVE (NEGATIVE); URINE BLOOD NEGATIVE (NEGATIVE); URINE CLARITY CLEAR (Clear); URINE COLOR YELLOW (YELLOW); URINE GLUCOSE (UA) 50 mg/dL (Normal); URINE LEUKOCYTE ESTERASE NEG Leu/uL (Negative); URINE PROTEIN 100 mg/dL (NEGATIVE)
[2018-05-06 23:45] VITALS: BP 132/67; PULSE 95; RESP 16
[2018-05-07] MEDS ORDERED: Fluticasone-Salmeterol 500-50mcg Diskus IH SCH (09:00)
[2018-05-07] MEDS ORDERED: Enoxaparin 40 mg Syringe SC SCH (09:00)
--- NOTE | 2018-05-07 12:09 | CARD ---
APPROVED REPORT Date of service: 05/06/2018 EKG Measurement Heart [id number] <Conclusion> Sinus tachycardia Nonspecific ST and T wave abnormality Abnormal ECG
[2018-05-14 15:58] VITALS: O2SAT 96
== END 2018-05-06 23:16 | disposition home or self-care (01) ==
LOC: H.ER 16:08 → H.ERHOLD 20:21 → UNDOADMOB 20:21 → H.ER 23:16
DX: J44.1 Chronic obstructive pulmonary disease with (acute) exacerbation (principal); R30.0 Dysuria; E11.9 Type 2 diabetes mellitus without complications; E78.00 Pure hypercholesterolemia, unspecified; I11.0 Hypertensive heart disease with heart failure; Z79.84 Long term (current) use of oral hypoglycemic drugs; Z86.711 Personal history of pulmonary embolism
CPT/HCPCS: 71045; 80053; 81003; 83880; 84484; 85025; 87086; 93005; 94640; 96374; 99285; J2930

== ENCOUNTER 2018-05-07 00:10 | Emergency (ER) | payer SELFPAY ==
[2018-05-07 00:10] VITALS: BMI 27.5
[2018-05-07 00:13] VITALS: TEMP 97.9
[2018-05-07] MEDS ORDERED: Albuterol-Ipratrop 3 mg / 0.5 (3 ml) UD INH STA (00:19)
[2018-05-07] MEDS ORDERED: Albuterol-Ipratrop 3 mg / 0.5 (3 ml) UD ONE (00:25)
--- NOTE | 2018-05-07 01:11 | ED PDOC ---
HPI: SOB/CHF/COPD Time Seen by Provider: 05/07/18 00:19 Chief Complaint (Nursing): Shortness Of Breath Chief Complaint (Provider): Shortness Of Breath History Per: Patient History/Exam Limitations: no limitations Onset/Duration Of Symptoms: Days Current Symptoms Are (Timing): Still Present Additional Complaint(s): 67 y/o homeless, [place] male with a Past medical history of COPD presents to the ER for evaluation of shortness of breath. Patient is well known to the provider in this facility for multiple visits and bed-seeking behavior. Patient was last seen and evaluated at this facility one hour prior to arrival, requesting to be admitted. Patient was evaluated by the hospitalist service and found stable for discharge. Upon discharge, patient called 911 and was brought here for further evaluation. Patient is requesting to be admitted for a place to stay. PMD: None Past Medical History Reviewed: Historical Data, Nursing Documentation, Vital Signs Vital Signs: Last Vital Signs Temp 97.9 F 05/07/18 00:11 Pulse 119 H 05/07/18 00:11 Resp 22 05/07/18 00:20 BP 145/79 05/07/18 00:11 Pulse Ox 98 05/07/18 00:59 - Medical History PMH: Asthma, CHF, COPD, Diabetes, HTN, Hypercholesterolemia, Pneumonia, Pulmonary Embolism Denies: HIV, Chronic Kidney Disease - Surgical History Surgical History: No Surg Hx - Family History Family History: States: [place], Diabetes - Living Arrangements Living Arrangements: Other (Homeless) - Immunization History Hx Tetanus Toxoid Vaccination: No Hx Influenza Vaccination: No Hx Pneumococcal Vaccination: No - Home Medications Home Medications: Ambulatory Orders Medication Instructions Recorded Fluticasone Propionate [Flonase] 2 spr VADIM DAILY bottle 03/08/18 Acetaminophen [Tylenol 325mg tab] 650 mg PO Q6 PRN tab 04/04/18 Albuterol HFA [Ventolin HFA 90 2 puff INH RQ4 PRN #1 inhaler 04/04/18 mcg/actuation (8 g)] Ammonium Lactate 12% [Lac-Hydrin 1 applic TOP TID bottle 04/04/18 12% Lotion (225 g)] Montelukast [Singulair] 10 mg PO HS #30 tab 04/04/18 metFORMIN [glucOPHAGE] 500 mg PO BIDWM #60 tab 04/04/18 amLODIPine [Norvasc] 5 mg PO DAILY #30 tab 04/08/18 Guaifenesin [Mucinex] 600 mg PO BID #20 tab.er.12h 04/17/18 Albuterol/Ipratropium [Duoneb 3 3 ml INH RQ4 neb 05/02/18 mg/0.5 mg (3 ml) UD] Fluticasone/Salmeterol 500/50 1 puff IH Q12 #1 dsk 05/02/18 [Advair Diskus 500/50] Prednisone 10 mg PO DAILY 3 Days #3 tab 05/02/18 Albuterol HFA [Ventolin HFA 90 1 puff IH ASDIR #1 unit 05/06/18 mcg/actuation (8 g)] Prednisone 50 mg PO DAILY #5 tablet 05/06/18 - Allergies Allergies/Adverse Reactions: Allergies Allergy/AdvReac Type Severity Reaction Status Date / Time No Known Allergies Allergy Verified 05/07/18 00:13 Review of Systems ROS Statement: Except As Marked, All Systems Reviewed And Found Negative Respiratory: Positive for: Shortness of Breath Physical Exam - Reviewed Nursing Documentation Reviewed: Yes Vital Signs Reviewed: Yes - Physical Exam Appears: Positive for: No Acute Distress Head Exam: Positive for: ATRAUMATIC, NORMOCEPHALIC Skin: Positive for: Normal Color, Warm, Dry Eye Exam: Positive for: Normal appearance, EOMI, PERRL Neck: Positive for: Normal, Painless ROM Cardiovascular/Chest: Positive for: Regular Rate, Rhythm. Negative for: Murmur Respiratory: Positive for: Normal Breath Sounds. Negative for: Respiratory Distress Gastrointestinal/Abdominal: Positive for: Normal Exam, Soft. Negative for: Tenderness Back: Positive for: Normal Inspection. Negative for: L CVA Tenderness, R CVA Tenderness, Vertebral Tenderness Extremity: Positive for: Normal ROM. Negative for: Pedal Edema, Deformity Neurologic/Psych: Positive for: Alert, Oriented. Negative for: Motor/Sensory Deficits - ECG O2 Sat by Pulse Oximetry: 99 (RA) Pulse Ox Interpretation: Normal Medical Decision Making Medical Decision Making: Time: 19 Impression: 67 y/o [place] homeless male with malingering behavior and COPD Plan: -- Duoneb 3 mg/0.5mg (3 ml) UD 3 ml -- Peak Flow Pre/Post Tx - Patient informed that he will be allowed to stay in the ED for the next few hours but will be discharged home. Time: 06 -- Patient is stable for discharge with a diagnosis of COPD. Scribe Attestation: Documented by Charla Slater, acting as a scribe for Maico Valerio MD. Provider Scribe Attestation: All medical record entries made by the Scribe were at my direction and personally dictated by me. I have reviewed the chart and agree that the record accurately reflects my personal performance of the history, physical exam, medical decision making, and the department course for this patient. I have also personally directed, reviewed, and agree with the discharge instructions and disposition. Disposition - Clinical Impression Clinical Impression: COPD (chronic obstructive pulmonary disease) - Patient ED Disposition Is Patient to be Admitted: No Counseled Patient/Family Regarding: Diagnosis - Disposition Disposition: Routine/Home Disposition Time: 06:07 Condition: STABLE Instructions: COPD Including Emphysema (DC) Forms: [employer] (Vietnamese)
[2018-05-07 06:29] VITALS: BP 145/80; PULSE 80; RESP 18; O2SAT 100
== END 2018-05-07 06:36 | disposition home or self-care (01) ==
LOC: H.ER 00:10
DX: J44.9 Chronic obstructive pulmonary disease, unspecified (principal); E11.9 Type 2 diabetes mellitus without complications; Z79.84 Long term (current) use of oral hypoglycemic drugs; I11.0 Hypertensive heart disease with heart failure; Z59.0 Homelessness; Z86.711 Personal history of pulmonary embolism

== ENCOUNTER 2018-07-17 13:48 | Inpatient (IN) | payer SELFPAY ==
[2018-07-17] MEDS ORDERED: Albuterol-Ipratrop 3 mg / 0.5 (3 ml) UD ONE ×2 (14:12→14:58)
[2018-07-17] MEDS ORDERED: Albuterol-Ipratrop 3 mg / 0.5 (3 ml) UD INH STA (14:39)
[2018-07-17] MEDS ORDERED: methylPREDNISolone 125 MG in Sodium Chloride 0.9% 50 ML IVPB STA (14:42)
[2018-07-17] MEDS ORDERED: Sodium Chloride 0.9% 50 ML IV ONE (14:44)
[2018-07-17] MEDS ORDERED: Iodixanol 320 MG/ML 100 ML BOTTLE IV ONE (14:44)
[2018-07-17 16:01] LABS: BASO # 0.3 K/uL (0.0-0.2); BASO % 1.6 % (0.0-2.0); EOS # 0.4 K/uL (0.0-0.7); EOS % 2.3 % (0.0-4.0); HEMOGLOBIN 11.1 g/dL (12.0-18.0); LYMPH # 2.5 K/uL (1.0-4.3); LYMPH % 14.3 % (20.0-40.0); MEAN CELL VOLUME 78.8 fl (80.0-94.0); MEAN CORPUSCULAR HEMOGLOBIN 24.8 pg (27.0-31.0); MEAN CORPUSCULAR HGB CONC 31.5 g/dL (33.0-37.0); MEAN PLATELET VOLUME 8.4 fl (7.2-11.7); MONO # 1.3 K/uL (0.0-0.8); MONO % 7.5 % (0.0-10.0); NEUT # 12.9 K/uL (1.8-7.0); NEUT % 74.3 % (50.0-75.0); RBC 4.47 Mil/uL (4.40-5.90); RED CELL DISTRIBUTION WIDTH 16.7 % (11.5-14.5)
[2018-07-17 16:17] LABS: WHITE BLOOD COUNT 17.3 K/uL (4.8-10.8)
--- NOTE | 2018-07-17 16:18 | ED PDOC ---
HPI: SOB/CHF/COPD Time Seen by Provider: 07/17/18 14:24 Chief Complaint (Nursing): Chest Pain History Per: Patient Additional Complaint(s): Pt. states yesterday he developed a cough and today wheezing, chest pain, and SOB. Has been using albuterol inhaler without relief. Further reports developing b/l lower leg atraumatic swelling 2 days ago. Pt. states cough is associated with fever and chills. Denies hemoptysis, weakness, N/V/D, rash, sick contacts, recent travel. Past Medical History Reviewed: Historical Data, Nursing Documentation, Vital Signs Vital Signs: Last Vital Signs Temp 98.3 F 07/17/18 15:04 Pulse 121 H 07/17/18 15:32 Resp 19 07/17/18 15:32 BP 139/62 07/17/18 15:32 Pulse Ox 97 07/17/18 15:32 - Medical History PMH: Asthma, CHF, COPD, Diabetes, HTN, Hypercholesterolemia, Pneumonia, Pulmon john Embolism Denies: HIV, Chronic Kidney Disease - Family History Family History: States: [place], Diabetes - Immunization History Hx Tetanus Toxoid Vaccination: No Hx Influenza Vaccination: No Hx Pneumococcal Vaccination: No - Home Medications Home Medications: Ambulatory Orders Medication Instructions Recorded Fluticasone Propionate [Flonase] 2 spr VADIM DAILY bottle 03/08/18 Acetaminophen [Tylenol 325mg tab] 650 mg PO Q6 PRN tab 04/04/18 Albuterol HFA [Ventolin HFA 90 2 puff INH RQ4 PRN #1 inhaler 04/04/18 mcg/actuation (8 g)] Ammonium Lactate 12% [Lac-Hydrin 1 applic TOP TID bottle 04/04/18 12% Lotion (225 g)] Montelukast [Singulair] 10 mg PO HS #30 tab 04/04/18 metFORMIN [glucOPHAGE] 500 mg PO BIDWM #60 tab 04/04/18 amLODIPine [Norvasc] 5 mg PO DAILY #30 tab 04/08/18 Guaifenesin [Mucinex] 600 mg PO BID #20 tab.er.12h 04/17/18 Albuterol/Ipratropium [Duoneb 3 3 ml INH RQ4 neb 05/02/18 mg/0.5 mg (3 ml) UD] Fluticasone/Salmeterol 500/50 1 puff IH Q12 #1 dsk 05/02/18 [Advair Diskus 500/50] Prednisone 10 mg PO DAILY 3 Days #3 tab 05/02/18 Albuterol HFA [Ventolin HFA 90 1 puff IH ASDIR #1 unit 05/06/18 mcg/actuation (8 g)] Prednisone 50 mg PO DAILY #5 tablet 05/06/18 - Allergies Allergies/Adverse Reactions: Allergies Allergy/AdvReac Type Severity Reaction Status Date / Time No Known Allergies Allergy Verified 05/07/18 00:13 Review of Systems ROS Statement: Except As Marked, All Systems Reviewed And Found Negative Constitutional: Positive for: Fever, Chills Respiratory: Positive for: Cough, Wheezing Physical Exam - Physical Exam Appears: Positive for: Well, Non-toxic, No Acute Distress (actively coughing, speaking in full sentences) Skin: Positive for: Normal Color, Warm. Negative for: Rash Eye Exam: Positive for: Normal appearance ENT: Positive for: Normal ENT Inspection Cardiovascular/Chest: Positive for: Tachycardia. Negative for: Murmur, Irr egularly Irregular Respiratory: Positive for: Wheezing (b/l expiratory wheezing). Negative for: Decreased Breath Sounds, Accessory Muscle Use, Respiratory Distress Pulses-Dorsalis Pedis (L): 2+ Pulses-Dorsalis Pedis (R): 2+ Extremity: Positive for: Other (b/l pitting edema of lower extremity). Negative for: Calf Tenderness (b/l) Neurologic/Psych: Positive for: Alert, Oriented (x3) - Laboratory Results Result Diagrams: 07/17/18 15:00 07/17/18 15:00 - ECG ECG: Positive for: Interpreted By Me ECG Rhythm: Positive for: Sinus Tachycardia. Negative for: ST/T Changes Rate: 122 O2 Sat by Pulse Oximetry: 97 - Progress ED Course And Treament: DuoNeb x 3, solu-medrol 125mg IV, labs, CXR, angio CTA chest ordered. Pt. placed on quality assurance monitor chassis. 1649 CXR: ? RLL infiltrate WBC: 17.5 Levaquin 500mg IV, tamiflu 75mg PO ordered. 175 Case and results d/w Dr. Taylor and arrangements made for 23 hour tele observation. Disposition - Clinical Impression Clinical Impression: COPD exacerbation, Influenza A - Patient ED Disposition Is Patient to be Admitted: Yes - Disposition Disposition Time: 17:57 Condition: FAIR
[2018-07-17 16:19] LABS: ALB/GLOB RATIO 1.1 (1.0-2.1); ALBUMIN 3.9 g/dL (3.5-5.0); ALT/SGPT 25 U/L (21-72); AST/SGOT 30 U/L (17-59); B-TYPE NATRIURETIC PEPTIDE 777 pg/ml (0-900); BLOOD UREA NITROGEN 16 mg/dl (9-20); CALCIUM 8.6 mg/dL (8.4-10.2); GFR NON-AFRICAN AMERICAN > 60
[2018-07-17 16:42] LABS: VENOUS BLOOD GAS BASE EXCESS 6.8 mmol/L (0.0-2.0); VENOUS BLOOD GAS PCO2 43 mmHg (40-60); VENOUS BLOOD GAS PO2 49 mm/Hg (30-55); VENOUS BLOOD PH 7.47 (7.32-7.43)
[2018-07-17] MEDS ORDERED: levoFLOXacin 500 mg in D5W 500 MG/100 ML BAG IVPB STA (16:57)
--- NOTE | 2018-07-17 17:07 | RAD ---
Date of service: 07/17/2018 HISTORY: Cough COMPARISON: Comparison chest dated 05/06/2018. FINDINGS: LUNGS: Mild bibasilar atelectasis and/or scarring. Developing infiltrates could be excluded with follow-up radiographs. Tiny effusions not excluded. Note that both lung apices left more so than right partially obscured by overlying facial soft tissue and mandible artifact PLEURA: As above. No pneumothorax apparent. CARDIOVASCULAR: Mild aortic atherosclerotic calcification present. Mild cardiomegaly.. Prominent right hilum. OSSEOUS STRUCTURES: No significant abnormalities. VISUALIZED UPPER ABDOMEN: Normal. OTHER FINDINGS: None. IMPRESSION: Mild bibasilar atelectasis and/or scarring. Developing infiltrates could be excluded with follow-up radiographs. Tiny effusions not excluded.. Prominent right hilum
[2018-07-17] MEDS ORDERED: levoFLOXacin 500 mg in D5W 500 MG/100 ML BAG IVPB ONE (17:44)
--- NOTE | 2018-07-17 17:44 | CT ---
Date of service: 07/17/2018 PROCEDURE: CT Chest with contrast (Pulmonary Angiogram) HISTORY: hx of PE; chest pain, SOB, leg swelling COMPARISON: Comparison made with CT scan abdomen pelvis 04/03/2018 which imaged both lung bases.. TECHNIQUE: Axial computed tomography images were obtained of the chest in the pulmonary arterial phase of enhancement. Coronal and sagittal reformatted images were created and reviewed. Intravenous contrast dose: Radiation dose: Total exam DLP = 394.07 mGy-cm. This CT exam was performed using one or more of the following dose reduction techniques: Automated exposure control, adjustment of the mA and/or kV according to patient size, and/or use of iterative reconstruction technique. FINDINGS: Study is somewhat limited due to suboptimal opacification of the pulmonary arteries. The visualized portions of the pulmonary trunk, right and left main, lobar, segmental and proximal subsegmental branches of the pulmonary arteries are fairly well opacified with no definitive filling defects seen to suggest acute central pulmonary embolus. The pulmonary trunk measures approximately 3.4 cm. PULMONARY ARTERIES: Unremarkable. No pulmonary embolism. AORTA: No acute findings. No thoracic aortic aneurysm. Ascending thoracic aorta measures approximately 3.6 cm and descending thoracic aorta measures approximately 2.6 cm. Minor aortic atherosclerotic calcification or mural plaque present. LUNGS: Centrilobular, panlobular and bullous emphysematous changes upper lobe predominance right greater than left. Mild chronic atelectasis and or scarring changes both lung bases including the lingular and middle lobe regions. There is a small approximately 4.6 mm nodule seen in the anterior inferior aspect right lower lobe best seen on axial series 5 image number [id number]. PLEURAL SPACES: Unremarkable. No effusion or pneumothorax. HEART: Heart size within range of normal however there is mild left ventricular hypertrophy. No significant pericardial effusion. LYMPH NODES: Several small nonspecific mediastinal lymph nodes are present. No significant hilar adenopathy.. The trachea is midline and patent with no large central endoluminal lesions. There is a small hiatal hernia with slight wall thickening of the distal esophagus likely due to protrusion of gastric mucosa. Esophagitis not excluded. There also appears to be mild localized wall thickening of the proximal esophagus as well. Clinical correlation recommended to determine whether follow-up endoscopy is prudent to exclude esophagitis or other intrinsic/invasive wall lesion. BONES, CHEST WALL: Mild multilevel degenerative spondylosis of the thoracic spine. OTHER FINDINGS: In situ IVC filter. IMPRESSION: Limited study demonstrating no definitive radiographic evidence of acute central pulmonary embolus. Centrilobular panlobular and bullous emphysematous changes upper lobe predominance right greater than left. Centrilobular, panlobular and bullous emphysematous changes upper lobe predominance right greater than left. Mild chronic atelectasis and or scarring changes both lung bases including the lingular and middle lobe regions. There is a small approximately 4.6 mm nodule seen in the anterior inferior aspect right lower lobe best seen on axial series 5 image number [id number].. Follow-up CT scan at 3 month interval interval recommended for further evaluation small hiatal hernia with slight wall thickening of the distal esophagus likely due to protrusion of gastric mucosa. Esophagitis not excluded. There also appears to be mild localized wall thickening of the proximal esophagus as well. Clinical correlation recommended to determine whether follow-up endoscopy is prudent to exclude esophagitis or other intrinsic/invasive wall lesion.
[2018-07-17] MEDS ORDERED: Albuterol 0.083% Inhal Sol (2.5 mg/3 mL) UD INH PRN (18:43)
--- NOTE | 2018-07-17 18:57 | CP.PCM.HP ---
<MaierYuliet - Last Filed: 07/17/18 19:49> History of Present Illness - History of Present Illness History of Present Illness: 68 y/o male, well know to our service, with a PMHx of COPD, NIDDM2, HTN, PE w IVC filter (not on AC) and psoriasis presented to the ED for evaluation of worsening cough and SOB for 1 day (today). He reports symptoms started this morning without inciting event. States cough is associated with fever and chills and also chest tightness from cough. Reports worsening cough and sob but denies sputum production. Denies fever/chills, headaches, changes in vision, Pa lpitations, diaphoresis, N/V/D/C, urinary symptoms. Of note patient reports have been using the inhaler w/o improving, patient is well known to be not compliant with home meds. On ED b/l leg swelling was noted. PMD: None provided PMH: COPD, NIDDM2, HTN, PE s/p IVC filter-2014 (not on anticoagulation), hx of retroperitoneal hematoma (2014) and psoriasis Medications: see bellow Allergies: NKDA PSH: IVC filter Fam: denies SOC: former smoker (30 pack years, quit 1 yr ago), former Etoh abuse, denies drug use; is homeless, sometimes sleeps in his friends house. Present on Admission - Present on Admission Any Indicators Present on Admission: Yes History of DVT/PE: Yes History of Uncontrolled Diabetes: Yes Urinary Catheter: No Decubitus Ulcer Present: No Review of Systems - Review of Systems All systems: reviewed and no additional remarkable complaints except (HPI) Past Patient History - Infectious Disease Hx of Infectious Diseases: None - Tetanus Immunizations Tetanus Immunization: Unknown - Past Medical History & Family History Past Medical History?: Yes - Past Social History Smoking Status: Former Smoker - CARDIAC Hx Congestive Heart Failure: Yes Hx Hypercholesterolemia: Yes Hx Hypertension: Yes - PULMONARY Hx Asthma: Yes Hx Chronic Obstructive Pulmonary Disease (COPD): Yes Hx Pneumonia: Yes Hx Pulmonary Embolism: Yes - NEUROLOGICAL Hx Neurological Disorder: No - HEENT Hx HEENT Problems: No - RENAL Hx Chronic Kidney Disease: No - ENDOCRINE/METABOLIC Hx Endocrine Disorders: Yes Hx Diabetes Mellitus Type 2: Yes - HEMATOLOGICAL/ONCOLOGICAL Hx Human Immunodeficiency Virus (HIV): No - INTEGUMENTARY Hx Dermatological Problems: Yes (GENERALIZED SKIN PSORIASIS) - MUSCULOSKELETAL/RHEUMATOLOGICAL Hx Musculoskeletal Disorders: Yes Hx Falls: Yes - GASTROINTESTINAL Hx Gastrointestinal Disorders: Yes Other/Comment: GI bleeding - GENITOURINARY/GYNECOLOGICAL Hx Genitourinary Disorders: No - PSYCHIATRIC Hx Psychophysiologic Disorder: No Hx Substance Use: No - SURGICAL HISTORY Hx Surgeries: Yes Other/Comment: IVC Filter - ANESTHESIA Hx Anesthesia: Yes Hx Anesthesia Reactions: No Hx Malignant Hyperthermia: No Meds Allergies/Adverse Reactions: Allergies Allergy/AdvReac Type Severity Reaction Status Date / Time No Known Allergies Allergy Verified 05/07/18 00:13 Physical Exam - Constitutional Appears: No Acute Distress - Head Exam Head Exam: NORMAL INSPECTION - Eye Exam Eye Exam: EOMI, PERRL - Respiratory Exam Respiratory Exam: Rhonchi, Wheezes, NORMAL BREATHING PATTERN. absent: Accessory Muscle Use, Decreased Breath Sounds, Respiratory Distress - Cardiovascular Exam Cardiovascular Exam: REGULAR RHYTHM, +S1, +S2 - GI/Abdominal Exam GI & Abdominal Exam: Normal Bowel Sounds, Soft. absent: Distended, Tenderness - Extremities Exam Additional comments: B/L leg swelling and erythema with scaly and pilling off rash noted on shins. DP/PT 2+ Results - Vital Signs Recent Vital Signs: Last Vital Signs Temp 99.1 F 07/17/18 17:40 Pulse 100 H 07/17/18 18:55 Resp 19 07/17/18 18:53 BP 125/73 07/17/18 18:53 Pulse Ox 98 07/17/18 18:53 - Labs Result Diagrams: 07/17/18 15:00 07/17/18 15:00 Labs: Laboratory Results - last 24 hr 07/17/18 07/17/18 07/17/18 14:39 15:00 15:00 WBC 17.3 H D RBC 4.47 Hgb 11.1 L Hct 35.2 MCV 78.8 L D MCH 24.8 L MCHC 31.5 L RDW 16.7 H Plt Count 335 D MPV 8.4 Neut % (Auto) 74.3 Lymph % (Auto) 14.3 L Crisp % (Auto) 7.5 Eos % (Auto) 2.3 Baso % (Auto) 1.6 Neut # (Auto) 12.9 H Lymph # (Auto) 2.5 Crisp # (Auto) 1.3 H Eos # (Auto) 0.4 Baso # (Auto) 0.3 H pO2 VBG pH VBG pCO2 VBG HCO3 VBG Total CO2 VBG O2 Sat (Calc) VBG Base Excess VBG Potassium Glucose Lactate FiO2 Sodium 137 Potassium 4.9 Chloride 98 Carbon Dioxide 29 Anion Gap 15 BUN 16 Creatinine 0.7 L Est GFR ( Amer) > 60 Est GFR (Non-Af Amer) > 60 POC Glucose (mg/dL) 93 Random Glucose 79 Calcium 8.6 Total Bilirubin 0.6 AST 30 ALT 25 Alkaline Phosphatase 46 Troponin I 0.0170 NT-Pro-B Natriuret Pep 777 Total Protein 7.3 Albumin 3.9 Globulin 3.4 Albumin/Globulin Ratio 1.1 Venous Blood Potassium Influenza Typ A,B (EIA) 07/17/18 07/17/18 07/17/18 15:00 16:37 18:03 WBC RBC Hgb Hct MCV MCH MCHC RDW Plt Count MPV Neut % (Auto) Lymph % (Auto) Crisp % (Auto) Eos % (Auto) Baso % (Auto) Neut # (Auto) Lymph # (Auto) Crisp # (Auto) Eos # (Auto) Baso # (Auto) pO2 49 VBG pH 7.47 H VBG pCO2 43 VBG HCO3 29.9 VBG Total CO2 32.6 H VBG O2 Sat (Calc) 91.7 H VBG Base Excess 6.8 H VBG Potassium 3.9 Glucose 129 H Lactate 1.1 FiO2 21.0 Sodium 133.0 Potassium Chloride 101.0 Carbon Dioxide Anion Gap BUN Creatinine Est GFR ( Amer) Est GFR (Non-Af Amer) POC Glucose (mg/dL) Random Glucose Calcium Total Bilirubin AST ALT Alkaline Phosphatase Troponin I NT-Pro-B Natriuret Pep Total Protein Albumin Globulin Albumin/Globulin Ratio Venous Blood Potassium 3.9 Influenza Typ A,B (EIA) Negative for flu a/b Pos for influenza a H Assessment & Plan - Assessment and Plan (Free Text) Assessment: 68 y/o male with a PMHx of COPD, HTN, NIDDM2, PE (w IVC filter) admitted for Acute COPD exacerbation. Plan: Acute COPD Exacerbation - afebrile, tachycardic - elevated white count: 17.3 - CXR: chronic scarring and/or atelectasis - Duo-neb - Resume Advair - solumedrol q8h - supplemental O2 via NC PRN - flu negative - labs in am Bilateral leg swelling/erythema - r/o DVT vs cellulitis vs chronic skin changes - duplex NIDDM2 - uncontrolled - most recent HBA1C 8.8 (April) - Resume metformin 500mg BID HTN - controlled - heart healthy diet - monitor BP Hx of PE with IVC Filter - Lovenox 40mg SC QD Prophylaxis - DVT: lovenox daily - GI protonix daily <Jurgen Taylor D - Last Filed: 07/21/18 10:12> Results - Vital Signs Recent Vital Signs: Last Vital Signs Temp 97.8 F 07/21/18 08:46 Pulse 99 H 07/21/18 08:46 Resp 20 07/21/18 08:46 BP 129/59 L 07/21/18 08:46 Pulse Ox 99 07/21/18 08:46 - Labs Result Diagrams: 07/20/18 05:52 07/20/18 05:52 Labs: Laboratory Results - last 24 hr 07/20/18 07/20/18 07/20/18 11:27 15:55 22:36 POC Glucose (mg/dL) 221 H 287 H 341 H 07/21/18 05:11 POC Glucose (mg/dL) 317 H Attending/Attestation - Attestation I have personally seen and examined this patient.: Yes I have fully participated in the care of the patient.: Yes I have reviewed all pertinent clinical information: Yes Notes (Text): 07/21/18 10:12 Patient seen and examined with resident. Case discussed and agreed with assessment and plan of management.
[2018-07-17] MEDS ORDERED: MethylPREDNISolone 40 mg Vial ONE (19:38)
[2018-07-17] MEDS: MethylPREDNISolone 40 mg Vial IVP SCH (19:43)
[2018-07-17 22:57] VITALS: BMI 32.6
[2018-07-17] MEDS: Fluticasone-Salmeterol 500-50mcg Diskus IH SCH (23:00)
[2018-07-18] MEDS ORDERED: methylPREDNISolone 40 MG in Sodium Chloride 0.9% 50 ML IVPB SCH (01:00)
[2018-07-18] MEDS: Albuterol-Ipratrop 3 mg / 0.5 (3 ml) UD INH SCH ×4 (02:39→19:18)
[2018-07-18] MEDS: MethylPREDNISolone 40 mg Vial IVP SCH ×3 (03:27→19:37)
[2018-07-18 04:53] LABS: BASO % 0.1 % (0.0-2.0); HEMOGLOBIN 10.2 g/dL (12.0-18.0); LYMPH # 0.9 K/uL (1.0-4.3); LYMPH % 8.2 % (20.0-40.0); MEAN CELL VOLUME 77.7 fl (80.0-94.0); MEAN CORPUSCULAR HEMOGLOBIN 25.1 pg (27.0-31.0); MEAN CORPUSCULAR HGB CONC 32.3 g/dL (33.0-37.0); MEAN PLATELET VOLUME 7.8 fl (7.2-11.7); MONO # 0.3 K/uL (0.0-0.8); MONO % 2.7 % (0.0-10.0); NEUT # 9.9 K/uL (1.8-7.0); PLATELET COUNT 314 K/uL (130-400); RBC 4.06 Mil/uL (4.40-5.90); RED CELL DISTRIBUTION WIDTH 16.5 % (11.5-14.5); WHITE BLOOD COUNT 11.2 K/uL (4.8-10.8)
[2018-07-18 05:04] LABS: BLOOD UREA NITROGEN 22 mg/dl (9-20); CALCIUM 8.3 mg/dL (8.4-10.2); GFR NON-AFRICAN AMERICAN > 60
[2018-07-18 08:17] LABS: LYMPHOCYTE 8 % (20-50); MONOCYTE 4 % (0-10); NEUTROPHIL 88 % (42-75); PLATELET ESTIMATE NORMAL (NORMAL); TOTAL CELLS COUNTED 100
[2018-07-18 08:18] LABS: ANISOCYTOSIS SLIGHT; LARGE PLATELETS PRESENT; MICROCYTOSIS SLIGHT; OVALOCYTES MODERATE
--- NOTE | 2018-07-18 09:18 | US ---
Date of service: 07/17/2018 PROCEDURE: Bilateral lower extremity venous duplex Doppler. HISTORY: b/l lower leg swelling and pain COMPARISON: Comparison made with prior study dated 12/12/2017. TECHNIQUE: Bilateral common femoral, superficial femoral, popliteal and posterior tibial veins were evaluated. Flow was assessed with color Doppler, compressibility, assessment of phasic flow and augmentation response. FINDINGS: COMMON FEMORAL VEIN: Right CFV: Unremarkable. Left CFV: Unremarkable. SUPERFICIAL FEMORAL VEIN: Right SFV: Unremarkable. Left SFV: Unremarkable. POPLITEAL VEIN: Right Popliteal: Unremarkable. Left Popliteal: Unremarkable. POSTERIOR TIBIAL VEIN: Right PTV: Not visualized therefore cannot be adequately evaluated to exclude DVT.. Left PTV: Limited evaluation. OTHER FINDINGS: None. IMPRESSION: Right posterior tibial vein not visualized and therefore cannot be adequately evaluated no evidence of deep venous thrombosis within the remaining visualized deep veins of the left lower extremity.
[2018-07-18] MEDS: Fluticasone-Salmeterol 500-50mcg Diskus IH SCH ×2 (09:24→21:06)
[2018-07-18] MEDS: Enoxaparin 40 mg Syringe SC SCH (09:29)
[2018-07-18] MEDS: Pantoprazole 40 mg EC Tab PO SCH (09:33)
--- NOTE | 2018-07-18 14:16 | CP.PCM.PN ---
<Shailesh Ramires - Last Filed: 07/18/18 14:26> Subjective - Date & Time of Evaluation Date of Evaluation: 07/18/18 Time of Evaluation: 09:45 - Subjective Subjective: Patient seen and evaluated at bedside in AM. No acute events overnight. NAD, alert, awake on O2 via NC 2L saturating at 95%. Afebrile, VSS. Continues to have cough but unable to expectorate. Denies SOB, CP, chills, rhinorrhea, ear pressure, sore thraot, abdominal pain, N/V/D. Tolerating diet well. Patient will continue to be on contact precaution. Will not be discharge due to risk to others for influenza. Objective - Vital Signs/Intake and Output Vital Signs (last 24 hours): Temp Pulse Resp BP Pulse Ox 98.2 F 88 20 112/89 97 07/18/18 12:23 07/18/18 12:23 07/18/18 12:23 07/18/18 12:23 07/18/18 12:23 - Medications Medications: Current Medications Acetaminophen (Tylenol 325mg Tab) 650 mg PO Q6 PRN PRN Reason: Pain, moderate (4-7) Albuterol Sulfate (Albuterol 0.083% Inhal Susan (2.5 Mg/3 Ml) Ud) 2.5 mg INH RQ4 PRN PRN Reason: Shortness of Breath Albuterol/Ipratropium (Duoneb 3 Mg/0.5 Mg (3 Ml) Ud) 3 ml INH RQ6 [facility] Last Admin: 07/18/18 13:53 Dose: 3 ml Amlodipine Besylate (Norvasc) 5 mg PO DAILY [facility] Last Admin: 07/18/18 09:33 Dose: 5 mg Docusate Sodium (Colace) 100 mg PO BID PRN PRN Reason: Constipation Enoxaparin Sodium (Lovenox) 40 mg SC DAILY [facility]; Protocol Last Admin: 07/18/18 09:29 Dose: 40 mg Fluticasone Propionate (Flonase) 2 spr VADIM DAILY [facility] Last Admin: 07/18/18 09:24 Dose: 2 spr Lactic Acid (Lac-Hydrin 12% Lotion (225 G)) 1 applic TOP TID [facility] Last Admin: 07/18/18 12:53 Dose: 1 applic Metformin HCl (Glucophage) 500 mg PO BIDWM [facility] Last Admin: 12/31/18 09:00 Dose: 500 mg Methylprednisolone (Solu-Medrol) 40 mg IVP Q8H [facility] Last Admin: 07/18/18 12:15 Dose: 40 mg Montelukast Sodium (Singulair) 10 mg PO HS [facility] Last Admin: 07/17/18 23:00 Dose: 10 mg Oseltamivir Phosphate (Tamiflu Cap) 75 mg PO BID [facility]; Protocol Last Admin: 07/18/18 09:34 Dose: 75 mg Pantoprazole Sodium (Protonix Ec Tab) 40 mg PO DAILY [facility] Last Admin: 07/18/18 09:33 Dose: 40 mg Fluticasone/Salmeterol (Advair Diskus 500/50) 1 puff IH Q12 [facility] Last Admin: 07/18/18 09:24 Dose: 1 puff - Labs Labs: 07/18/18 04:41 07/18/18 04:41 Assessment and Plan - Assessment and Plan (Free Text) Assessment: 68 y/o male with a PMHx of COPD, HTN, NIDDM2, PE (w IVC filter) admitted for Acute COPD exacerbation and influenza. CXR: Chronic scarring, No acute infiltrate CT Chest: Limited study demonstrating no definitive radiographic evidence of acute central pulmonary embolus. Centrilobular panlobular and bullous emphysematous changes upper lobe predominance right greater than left. Mild chronic atelectasis and or scarring changes both lung bases including the lingular and middle lobe regions. There is a small approximately 4.6 mm nodule seen in the anterior inferior aspect right lower lobe. Follow-up CT scan at 3 month interval recommended for further evaluation. Small hiatal hernia with slight wall thickening of the distal esophagus likely due to protrusion of gastric mucosa. Esophagitis not excluded. There also appears to be mild localized wall thickening of the proximal esophagus as well. Clinical correlation recommended to determine whether follow-up endoscopy is prudent to exclude esophagitis or other intrinsic/invasive wall lesion. Plan: Influenza A - Afebrile, tachycardic resolved - WBC improved form 17 to 11 - CXR: chronic scarring and/or atelectasis - First Influenza Negative, 2nd test positive 3 hrs apart - S/P Tamiflu in ED - Started on tamiflu 75 mg BID - On droplet precautions - Continue Duoneb, Advair, Solumedrol. - Monitor respiratory status Acute COPD Exacerbation - C/W Duo-neb Q6 hr [facility] - C/W Advair Q12 - Solumedrol 40 Q8h - supplemental O2 via NC PRN - Monitor respiratory status Bilateral leg swelling/erythema - Chronic - r/o DVT vs cellulitis vs chronic skin changes - duplex limited, Neg NIDDM2 - uncontrolled - most recent HBA1C 8.8 (April) - Resume metformin 500mg BID HTN - controlled - heart healthy diet - monitor BP Hx of PE with IVC Filter - Lovenox 40mg SC QD Prophylaxis - DVT: lovenox daily - GI protonix daily <Muriel Lamas - Last Filed: 07/18/18 15:51> Objective - Vital Signs/Intake and Output Vital Signs (last 24 hours): Temp Pulse Resp BP Pulse Ox 98.2 F 88 20 149/59 L 97 07/18/18 12:23 07/18/18 12:23 07/18/18 12:23 07/18/18 13:00 07/18/18 12:23 - Medications Medications: Current Medications Acetaminophen (Tylenol 325mg Tab) 650 mg PO Q6 PRN PRN Reason: Pain, moderate (4-7) Albuterol Sulfate (Albuterol 0.083% Inhal Susan (2.5 Mg/3 Ml) Ud) 2.5 mg INH RQ4 PRN PRN Reason: Shortness of Breath Albuterol/Ipratropium (Duoneb 3 Mg/0.5 Mg (3 Ml) Ud) 3 ml INH RQ6 [facility] Last Admin: 07/18/18 13:53 Dose: 3 ml Amlodipine Besylate (Norvasc) 5 mg PO DAILY [facility] Last Admin: 07/18/18 09:33 Dose: 5 mg Docusate Sodium (Colace) 100 mg PO BID PRN PRN Reason: Constipation Enoxaparin Sodium (Lovenox) 40 mg SC DAILY [facility]; Protocol Last Admin: 07/18/18 09:29 Dose: 40 mg Fluticasone Propionate (Flonase) 2 spr VADIM DAILY [facility] Last Admin: 07/18/18 09:24 Dose: 2 spr Lactic Acid (Lac-Hydrin 12% Lotion (225 G)) 1 applic TOP TID [facility] Last Admin: 07/18/18 12:53 Dose: 1 applic Metformin HCl (Glucophage) 500 mg PO BIDWM [facility] Last Admin: 07/18/18 09:00 Dose: 500 mg Methylprednisolone (Solu-Medrol) 40 mg IVP Q8H [facility] Last Admin: 07/18/18 12:15 Dose: 40 mg Montelukast Sodium (Singulair) 10 mg PO HS [facility] Last Admin: 07/17/18 23:00 Dose: 10 mg Oseltamivir Phosphate (Tamiflu Cap) 75 mg PO BID [facility]; Protocol Last Admin: 07/18/18 09:34 Dose: 75 mg Pantoprazole Sodium (Protonix Ec Tab) 40 mg PO DAILY [facility] Last Admin: 07/18/18 09:33 Dose: 40 mg Fluticasone/Salmeterol (Advair Diskus 500/50) 1 puff IH Q12 [facility] Last Admin: 07/18/18 09:24 Dose: 1 puff - Labs Labs: 07/18/18 04:41 07/18/18 04:41 Attending/Attestation - Attestation I have personally seen and examined this patient.: Yes I have fully participated in the care of the patient.: Yes I have reviewed all pertinent clinical information, including history, physical exam and plan: Yes Notes (Text): Influenza A Acute COPD exacerbation - admit pt, to keep patient in the hospital and continue Tamiflu , unable to [facility] ( might infect other prison residents )
[2018-07-19] MEDS: Albuterol-Ipratrop 3 mg / 0.5 (3 ml) UD INH SCH ×4 (00:59→19:01)
--- NOTE | 2018-07-19 02:36 | CARD ---
APPROVED REPORT Date of service: 07/17/2018 EKG Measurement Heart [id number] <Conclusion> Sinus tachycardia Otherwise normal ECG
[2018-07-19] MEDS: MethylPREDNISolone 40 mg Vial IVP SCH ×3 (03:19→21:39)
[2018-07-19 05:07] LABS: BASO % 0.2 % (0.0-2.0); HEMOGLOBIN 9.5 g/dL (12.0-18.0); LYMPH # 0.7 K/uL (1.0-4.3); LYMPH % 5.3 % (20.0-40.0); MEAN CELL VOLUME 77.9 fl (80.0-94.0); MEAN CORPUSCULAR HEMOGLOBIN 24.8 pg (27.0-31.0); MEAN CORPUSCULAR HGB CONC 31.8 g/dL (33.0-37.0); MEAN PLATELET VOLUME 7.9 fl (7.2-11.7); MONO # 0.7 K/uL (0.0-0.8); MONO % 5.2 % (0.0-10.0); NEUT # 11.3 K/uL (1.8-7.0); NEUT % 89.3 % (50.0-75.0); RBC 3.82 Mil/uL (4.40-5.90); RED CELL DISTRIBUTION WIDTH 16.7 % (11.5-14.5); WHITE BLOOD COUNT 12.7 K/uL (4.8-10.8)
[2018-07-19 05:14] LABS: BLOOD UREA NITROGEN 26 mg/dl (9-20); CALCIUM 8.4 mg/dL (8.4-10.2); GFR NON-AFRICAN AMERICAN > 60
[2018-07-19] MEDS: Fluticasone-Salmeterol 500-50mcg Diskus IH SCH ×2 (08:14→21:39)
[2018-07-19] MEDS: Enoxaparin 40 mg Syringe SC SCH (08:15)
[2018-07-19] MEDS: Pantoprazole 40 mg EC Tab PO SCH (08:16)
--- NOTE | 2018-07-19 08:56 | CP.PCM.PN ---
<Kiley Myers - Last Filed: 07/19/18 09:33> Subjective - Date & Time of Evaluation Date of Evaluation: 07/19/18 Time of Evaluation: 08:56 - Subjective Subjective: 68-year-old male seen bedside sitting up comfortably eating breakfast. As per the patient he had difficulty breathing overnight but resolved on it's own after he opened the door to his room. He is occasionally using the O2 NC but has been saturating 98% on room air and remains afebrile with stable BP. Tachycardic overnight (HR range 68-103). No complaints other than dry skin on lower extremities bilaterally. He admits to chills, cough, fatigue and malaise but denies headache, change in vision, chest pain, nausea, vomiting, dizziness, orthostatic changes, and diarrhea. Objective - Vital Signs/Intake and Output Vital Signs (last 24 hours): Temp Pulse Resp BP Pulse Ox 98.3 F 103 H 18 129/64 96 07/19/18 07:55 07/19/18 08:16 07/19/18 07:55 07/19/18 08:16 07/19/18 07:55 - Medications Medications: Current Medications Acetaminophen (Tylenol 325mg Tab) 650 mg PO Q6 PRN PRN Reason: Pain, moderate (4-7) Albuterol Sulfate (Albuterol 0.083% Inhal Susan (2.5 Mg/3 Ml) Ud) 2.5 mg INH RQ4 PRN PRN Reason: Shortness of Breath Albuterol/Ipratropium (Duoneb 3 Mg/0.5 Mg (3 Ml) Ud) 3 ml INH RQ6 [facility] Last Admin: 07/19/18 07:48 Dose: 3 ml Amlodipine Besylate (Norvasc) 5 mg PO DAILY [facility] Last Admin: 07/19/18 08:16 Dose: 5 mg Docusate Sodium (Colace) 100 mg PO BID PRN PRN Reason: Constipation Enoxaparin Sodium (Lovenox) 40 mg SC DAILY [facility]; Protocol Last Admin: 07/19/18 08:15 Dose: 40 mg Fluticasone Propionate (Flonase) 2 spr VADIM DAILY [facility] Last Admin: 07/19/18 08:14 Dose: 2 spr Lactic Acid (Lac-Hydrin 12% Lotion (225 G)) 1 applic TOP TID [facility] Last Admin: 07/19/18 08:15 Dose: 1 applic Metformin HCl (Glucophage) 500 mg PO BIDWM [facility] Last Admin: 07/19/18 08:15 Dose: 500 mg Methylprednisolone (Solu-Medrol) 40 mg IVP Q8H [facility] Last Admin: 07/19/18 03:19 Dose: 40 mg Montelukast Sodium (Singulair) 10 mg PO HS [facility] Last Admin: 07/18/18 21:06 Dose: 10 mg Oseltamivir Phosphate (Tamiflu Cap) 75 mg PO BID [facility]; Protocol Last Admin: 07/19/18 08:17 Dose: 75 mg Pantoprazole Sodium (Protonix Ec Tab) 40 mg PO DAILY [facility] Last Admin: 07/19/18 08:16 Dose: 40 mg Fluticasone/Salmeterol (Advair Diskus 500/50) 1 puff IH Q12 [facility] Last Admin: 07/19/18 08:14 Dose: 1 puff - Labs Labs: 07/19/18 04:34 07/19/18 04:34 - Constitutional Appears: Non-toxic, No Acute Distress - Head Exam Head Exam: NORMAL INSPECTION - Eye Exam Eye Exam: Normal appearance - ENT Exam ENT Exam: Mucous Membranes Moist - Neck Exam Neck Exam: Normal Inspection - Respiratory Exam Respiratory Exam: Wheezes, NORMAL BREATHING PATTERN. absent: Accessory Muscle Use - Cardiovascular Exam Cardiovascular Exam: Tachycardia, REGULAR RHYTHM, +S1, +S2 - GI/Abdominal Exam GI & Abdominal Exam: Soft. absent: Tenderness - Extremities Exam Additional comments: Chronic dry skin changes in LE, No calf tenderness - Psychiatric Exam Psychiatric exam: Normal Mood - Skin Skin Exam: Dry (b/l lower extremities; chronic), Normal Color Assessment and Plan - Assessment and Plan (Free Text) Assessment: 68 y/o male with a PMHx of COPD, HTN, NIDDM2, PE (w IVC filter) admitted for Acute COPD exacerbation and influenza A. Admitted to tele 07/17/18, transferred to med surg 07/19/18. CXR (07/17/18): Chronic scarring, No acute infiltrate CT Chest (07/17/18): Limited study demonstrating no definitive radiographic evidence of acute central pulmonary embolus. Centrilobular panlobular and bullous emphysematous changes upper lobe predominance right greater than left. Mild chronic atelectasis and or scarring changes both lung bases including the lingular and middle lobe regions. There is a small approximately 4.6 mm nodule seen in the anterior inferior aspect right lower lobe. Follow-up CT scan at 3 month interval recommended for further evaluation. Small hiatal hernia with slight wall thickening of the distal esophagus likely due to protrusion of renzo queenie mucosa. Esophagitis not excluded. There also appears to be mild localized wall thickening of the proximal esophagus as well. Clinical correlation recommended to determine whether follow-up endoscopy is prudent to exclude esophagitis or other intrinsic/invasive wall lesion. Plan: Influenza A - Afebrile, Tachycardic (HR range 68-103 overnight) - WBC 17.3 (07/17), 11.2 (07/18), 12.7 (07/19) - - New Leukocytosis (07/18-07/19) likely secondary to Solumedrol - CXR: chronic scarring and/or atelectasis - Initial Influenza Negative, follow-up test positive (3 hr interval) - Tamiflu 75 mg BID, currently day 3 - Droplet precautions - Monitor respiratory status - Patient vitally stable to be transferred to med-surg today - Cannot be discharged d/t risk of transmitting influenza to others at care home Acute COPD Exacerbation - Duo-neb Q6H - Advair Q12H - Solumedrol 40 Q8H - O2 via NC PRN - O2 Saturation 98% on room air - Monitor respiratory status Bilateral leg swelling/erythema - Chronic - Duplex limited (07/17): Neg - Ammonium lactate 12% topically TID NIDDM2 - Uncontrolled - (Apr 2018) HgA1C 8.8 - Metformin 500mg BID HTN - Controlled (BP range overnight 112-129/54-64) - Amlodipine 5 mg daily - Heart healthy diet - Monitor BP Hx of PE with IVC Filter - Lovenox 40mg SC QD Prophylaxis - DVT: lovenox daily - GI protonix daily <Muriel Lamas - Last Filed: 07/19/18 15:30> Objective - Vital Signs/Intake and Output Vital Signs (last 24 hours): Temp Pulse Resp BP Pulse Ox 97.9 F 101 H 20 134/58 L 96 07/19/18 11:13 07/19/18 11:13 07/19/18 11:13 07/19/18 11:13 07/19/18 11:13 - Medications Medications: Current Medications Acetaminophen (Tylenol 325mg Tab) 650 mg PO Q6 PRN PRN Reason: Pain, moderate (4-7) Albuterol Sulfate (Albuterol 0.083% Inhal Susan (2.5 Mg/3 Ml) Ud) 2.5 mg INH RQ4 PRN PRN Reason: Shortness of Breath Albuterol/Ipratropium (Duoneb 3 Mg/0.5 Mg (3 Ml) Ud) 3 ml INH RQ6 [facility] Last Admin: 07/19/18 13:05 Dose: 3 ml Amlodipine Besylate (Norvasc) 5 mg PO DAILY [facility] Last Admin: 07/19/18 08:16 Dose: 5 mg Docusate Sodium (Colace) 100 mg PO BID PRN PRN Reason: Constipation Enoxaparin Sodium (Lovenox) 40 mg SC DAILY [facility]; Protocol Last Admin: 07/19/18 08:15 Dose: 40 mg Fluticasone Propionate (Flonase) 2 spr VADIM DAILY [facility] Last Admin: 07/19/18 08:14 Dose: 2 spr Lactic Acid (Lac-Hydrin 12% Lotion (225 G)) 1 applic TOP TID [facility] Last Admin: 07/19/18 13:34 Dose: 1 applic Metformin HCl (Glucophage) 500 mg PO BIDWM [facility] Last Admin: 07/19/18 08:15 Dose: 500 mg Methylprednisolone (Solu-Medrol) 40 mg IVP Q8H [facility] Last Admin: 07/19/18 12:23 Dose: 40 mg Montelukast Sodium (Singulair) 10 mg PO HS [facility] Last Admin: 07/18/18 21:06 Dose: 10 mg Oseltamivir Phosphate (Tamiflu Cap) 75 mg PO BID [facility]; Protocol Last Admin: 07/19/18 08:17 Dose: 75 mg Pantoprazole Sodium (Protonix Ec Tab) 40 mg PO DAILY [facility] Last Admin: 07/19/18 08:16 Dose: 40 mg Fluticasone/Salmeterol (Advair Diskus 500/50) 1 puff IH Q12 [facility] Last Admin: 07/19/18 08:14 Dose: 1 puff - Labs Labs: 07/19/18 04:34 07/19/18 04:34 Attending/Attestation - Attestation I have personally seen and examined this patient.: Yes I have fully participated in the care of the patient.: Yes I have reviewed all pertinent clinical information, including history, physical exam and plan: Yes Notes (Text): Additional Note : 4.6 mm RLL Lung nodule - rpt CT of chest in 3 mos as rec by Radiologist
[2018-07-19 11:13] VITALS: RESP 20
[2018-07-19] MEDS ORDERED: Glucagon Recombinant 1 mg Inj IM PRN (22:06)
[2018-07-19] MEDS ORDERED: Dextrose 50% SYRINGE Inj (50 ml) IV PRN (22:06)
[2018-07-20] MEDS: Albuterol-Ipratrop 3 mg / 0.5 (3 ml) UD INH SCH ×4 (00:59→19:25)
[2018-07-20 06:06] LABS: BASO % 0.1 % (0.0-2.0); HEMOGLOBIN 9.9 g/dL (12.0-18.0); LYMPH # 0.8 K/uL (1.0-4.3); LYMPH % 7.6 % (20.0-40.0); MEAN CELL VOLUME 79.6 fl (80.0-94.0); MEAN CORPUSCULAR HEMOGLOBIN 25.4 pg (27.0-31.0); MEAN CORPUSCULAR HGB CONC 31.9 g/dL (33.0-37.0); MEAN PLATELET VOLUME 7.9 fl (7.2-11.7); MONO # 0.5 K/uL (0.0-0.8); MONO % 4.9 % (0.0-10.0); NEUT # 8.7 K/uL (1.8-7.0); NEUT % 87.4 % (50.0-75.0); RBC 3.91 Mil/uL (4.40-5.90); RED CELL DISTRIBUTION WIDTH 16.3 % (11.5-14.5)
[2018-07-20 06:19] LABS: BLOOD UREA NITROGEN 25 mg/dl (9-20); CALCIUM 8.6 mg/dL (8.4-10.2); GFR NON-AFRICAN AMERICAN > 60
[2018-07-20] MEDS: Fluticasone-Salmeterol 500-50mcg Diskus IH SCH (09:34)
[2018-07-20] MEDS: Enoxaparin 40 mg Syringe SC SCH (09:40)
[2018-07-20] MEDS: MethylPREDNISolone 40 mg Vial IVP SCH (09:41)
[2018-07-20] MEDS: Pantoprazole 40 mg EC Tab PO SCH (09:43)
--- NOTE | 2018-07-20 13:00 | CP.PCM.PN ---
<Kiley Myers - Last Filed: 07/20/18 12:11> Subjective - Date & Time of Evaluation Date of Evaluation: 07/20/18 Time of Evaluation: 09:00 - Subjective Subjective: 68-year-old male seen sitting up in chair comfortably, and as per the patient he is feeling better than yesterday. He states had difficulty breathing this morning but resolved with NC. He remains afebrile with stable BP. Tachycardic overnight (HR range 95-103). He admits to one episode of NBNB vomiting yesterday after dinner but tolerated breakfast this morning. He had (non-bloody, non- mucous) diarrhea occasionally overnight but denies loose stools today. He admits to cough, and fatigue but denies headache, change in vision, chest pain, nausea, dizziness, and orthostatic changes. Objective - Vital Signs/Intake and Output Vital Signs (last 24 hours): Temp Pulse Resp BP Pulse Ox 98.1 F 85 20 134/70 97 07/20/18 08:19 07/20/18 09:41 07/20/18 08:19 07/20/18 09:41 07/20/18 08:19 - Medications Medications: Current Medications Acetaminophen (Tylenol 325mg Tab) 650 mg PO Q6 PRN PRN Reason: Pain, moderate (4-7) Albuterol Sulfate (Albuterol 0.083% Inhal Susan (2.5 Mg/3 Ml) Ud) 2.5 mg INH RQ4 PRN PRN Reason: Shortness of Breath Albuterol/Ipratropium (Duoneb 3 Mg/0.5 Mg (3 Ml) Ud) 3 ml INH RQ6 [facility] Last Admin: 07/20/18 07:38 Dose: 3 ml Amlodipine Besylate (Norvasc) 5 mg PO DAILY [facility] Last Admin: 07/20/18 09:41 Dose: 5 mg Dextrose (Dextrose 50% Inj) 0 ml IV STAT PRN; Protocol PRN Reason: Hypoglycemia Protocol Dextrose (Glutose 15) 0 gm PO ONCE PRN; Protocol PRN Reason: Hypoglycemia Protocol Docusate Sodium (Colace) 100 mg PO BID PRN PRN Reason: Constipation Enoxaparin Sodium (Lovenox) 40 mg SC DAILY [facility]; Protocol Last Admin: 07/20/18 09:40 Dose: 40 mg Fluticasone Propionate (Flonase) 2 spr VADIM DAILY [facility] Last Admin: 07/20/18 09:41 Dose: 2 spr Glucagon (Glucagen Diagnostic Kit) 0 mg IM STAT PRN; Protocol PRN Reason: Hypoglycemia Protocol Insulin Human Regular (Humulin R) 0 units SC ACHS [facility]; Protocol Lactic Acid (Lac-Hydrin 12% Lotion (225 G)) 1 applic TOP TID [facility] Last Admin: 07/20/18 09:43 Dose: 1 applic Metformin HCl (Glucophage) 500 mg PO BIDWM [facility] Last Admin: 07/20/18 09:42 Dose: 500 mg Methylprednisolone (Solu-Medrol) 40 mg IVP Q12 [facility] Last Admin: 07/20/18 09:41 Dose: 40 mg Montelukast Sodium (Singulair) 10 mg PO HS [facility] Last Admin: 07/19/18 21:38 Dose: 10 mg Oseltamivir Phosphate (Tamiflu Cap) 75 mg PO BID [facility]; Protocol Last Admin: 07/20/18 09:42 Dose: 75 mg Pantoprazole Sodium (Protonix Ec Tab) 40 mg PO DAILY [facility] Last Admin: 07/20/18 09:43 Dose: 40 mg Fluticasone/Salmeterol (Advair Diskus 500/50) 1 puff IH Q12 [facility] Last Admin: 07/20/18 09:34 Dose: 1 puff - Labs Labs: 07/20/18 05:52 07/20/18 05:52 Assessment and Plan - Assessment and Plan (Free Text) Assessment: 68 y/o male with a PMHx of COPD, HTN, NIDDM2, PE (w IVC filter) admitted for Acute COPD exacerbation and influenza A. Admitted to tele 07/17/18, transferred to med surg 07/19/18. Plan to discharge 07/21/18 s/p 5 day course of Tamiflu. CXR (07/17/18): Chronic scarring, No acute infiltrate CT Chest (07/17/18): Limited study demonstrating no definitive radiographic evidence of acute central pulmonary embolus. Centrilobular panlobular and bullous emphysematous changes upper lobe predominance right greater than left. Mild chronic atelectasis and or scarring changes both lung bases including the lingular and middle lobe regions. There is a small approximately 4.6 mm nodule seen in the anterior inferior aspect right lower lobe. Follow-up CT scan at 3 month interval recommended for further evaluation. Small hiatal hernia with slight wall thickening of the distal esophagus likely due to protrusion of gastric mucosa. Esophagitis not excluded. There also appears to be mild localized wall thickening of the proximal esophagus as well. Clinical correlation recommended to determine whether follow-up endoscopy is prudent to exclude esophagitis or other intrinsic/invasive wall lesion. Plan: Influenza A - Afebrile, Tachycardic overnight (HR range 95-103), curently stable - WBC 17.3 (07/17), 11.2 (07/18), 12.7 (07/19), 10.0 (07/20) - CXR: chronic scarring and/or atelectasis - Initial Influenza Negative, follow-up test positive (3 hr interval) - Tamiflu 75 mg BID, currently day 4 - Droplet precautions - Monitor respiratory status - Cannot be discharged d/t risk of transmitting influenza to others at [facility] Acute COPD Exacerbation - Duo-neb Q6H - Advair Q12H - Solumedrol 40 Q8H - O2 via NC PRN - O2 Saturation >96% on room air - Monitor respiratory status Bilateral leg swelling/erythema - Chronic - Duplex limited (07/17): Neg - Ammonium lactate 12% topically TID NIDDM2 - Uncontrolled - (Apr 2018) HgA1C 8.8 - Metformin 500mg BID HTN - Controlled (BP range overnight 128-134/58-70) - Amlodipine 5 mg daily - Heart healthy diet - Monitor BP Hx of PE with IVC Filter - Lovenox 40mg SC QD Prophylaxis - DVT: lovenox daily - GI protonix daily <Muriel Lamas - Last Filed: 07/20/18 18:40> Objective - Vital Signs/Intake and Output Vital Signs (last 24 hours): Temp Pulse Resp BP Pulse Ox 98 F 98 H 20 146/65 96 07/20/18 16:37 07/20/18 16:37 07/20/18 16:37 07/20/18 16:37 07/20/18 16:37 - Medications Medications: Current Medications Acetaminophen (Tylenol 325mg Tab) 650 mg PO Q6 PRN PRN Reason: Pain, moderate (4-7) Albuterol Sulfate (Albuterol 0.083% Inhal Susan (2.5 Mg/3 Ml) Ud) 2.5 mg INH RQ4 PRN PRN Reason: Shortness of Breath Albuterol/Ipratropium (Duoneb 3 Mg/0.5 Mg (3 Ml) Ud) 3 ml INH RQ6 [facility] Last Admin: 07/20/18 13:56 Dose: 3 ml Amlodipine Besylate (Norvasc) 5 mg PO DAILY [facility] Last Admin: 07/20/18 09:41 Dose: 5 mg Dextrose (Dextrose 50% Inj) 0 ml IV STAT PRN; Protocol PRN Reason: Hypoglycemia Protocol Dextrose (Glutose 15) 0 gm PO ONCE PRN; Protocol PRN Reason: Hypoglycemia Protocol Docusate Sodium (Colace) 100 mg PO BID PRN PRN Reason: Constipation Enoxaparin Sodium (Lovenox) 40 mg SC DAILY [facility]; Protocol Last Admin: 07/20/18 09:40 Dose: 40 mg Fluticasone Propionate (Flonase) 2 spr VADIM DAILY [facility] Last Admin: 07/20/18 09:41 Dose: 2 spr Glucagon (Glucagen Diagnostic Kit) 0 mg IM STAT PRN; Protocol PRN Reason: Hypoglycemia Protocol Insulin Human Regular (Humulin R) 0 units SC ACHS [facility]; Protocol Last Admin: 07/20/18 16:53 Dose: 3 units Lactic Acid (Lac-Hydrin 12% Lotion (225 G)) 1 applic TOP TID [facility] Last Admin: 07/20/18 16:52 Dose: 1 applic Metformin HCl (Glucophage) 500 mg PO BIDWM [facility] Last Admin: 07/20/18 16:54 Dose: 500 mg Methylprednisolone (Solu-Medrol) 40 mg IVP Q12 [facility] Last Admin: 07/20/18 09:41 Dose: 40 mg Montelukast Sodium (Singulair) 10 mg PO HS [facility] Last Admin: 07/19/18 21:38 Dose: 10 mg Oseltamivir Phosphate (Tamiflu Cap) 75 mg PO BID [facility]; Protocol Last Admin: 07/20/18 16:54 Dose: 75 mg Pantoprazole Sodium (Protonix Ec Tab) 40 mg PO DAILY [facility] Last Admin: 07/20/18 09:43 Dose: 40 mg Fluticasone/Salmeterol (Advair Diskus 500/50) 1 puff IH Q12 [facility] Last Admin: 07/20/18 09:34 Dose: 1 puff - Labs Labs: 07/20/18 05:52 07/20/18 05:52
[2018-07-20] MEDS: Insulin Regular 100 units/ml SC SCH ×2 (16:50→16:53)
--- NOTE | 2018-07-21 06:51 | CP.PCM.DIS ---
<Kiley Myers - Last Filed: 07/21/18 12:21> Provider - Provider Date of Admission: 07/18/18 14:03 Attending physician: Jurgen Taylor MD Consults: 07/17/18 22:50 Pastoral Care Referral Routine Comment: Physician Instructions: Reason For Exam: information on advance directive 07/18/18 08:44 Social Work Referral Routine Comment: medication assistance(Tamiflu) Physician Instructions: Reason For Exam: medication assistance(Tamiflu) Time Spent in preparation of Discharge (in minutes): 25 Diagnosis - Discharge Diagnosis (1) COPD exacerbation Status: Acute (2) Influenza A Status: Acute Hospital Course - Lab Results Lab Results: Micro Results 07/17/18 15:00 Blood Blood Culture - Preliminary NO GROWTH AFTER 3 DAYS 07/17/18 05:00 Naris MRSA Culture (Admit) - Final MRSA NOT DETECTED Most Recent Lab Values WBC 10.0 K/uL (4.8-10.8) 07/20/18 05:52 RBC 3.91 Mil/uL (4.40-5.90) L 07/20/18 05:52 Hgb 9.9 g/dL (12.0-18.0) L 07/20/18 05:52 Hct 31.1 % (35.0-51.0) L 07/20/18 05:52 MCV 79.6 fl (80.0-94.0) L 07/20/18 05:52 MCH 25.4 pg (27.0-31.0) L 07/20/18 05:52 MCHC 31.9 g/dL (33.0-37.0) L 07/20/18 05:52 RDW 16.3 % (11.5-14.5) H 07/20/18 05:52 Plt Count 297 K/uL (130-400) 07/20/18 05:52 MPV 7.9 fl (7.2-11.7) 07/20/18 05:52 Neut % (Auto) 87.4 % (50.0-75.0) H 07/20/18 05:52 Lymph % (Auto) 7.6 % (20.0-40.0) L 07/20/18 05:52 Tyler % (Auto) 4.9 % (0.0-10.0) 07/20/18 05:52 Eos % (Auto) 0.0 % (0.0-4.0) 07/20/18 05:52 Baso % (Auto) 0.1 % (0.0-2.0) 07/20/18 05:52 Neut # (Auto) 8.7 K/uL (1.8-7.0) H 07/20/18 05:52 Lymph # (Auto) 0.8 K/uL (1.0-4.3) L 07/20/18 05:52 Tyler # (Auto) 0.5 K/uL (0.0-0.8) 07/20/18 05:52 Eos # (Auto) 0.0 K/uL (0.0-0.7) 07/20/18 05:52 Baso # (Auto) 0.0 K/uL (0.0-0.2) 07/20/18 05:52 Neutrophils % (Manual) 88 % (42-75) H 07/18/18 04:41 Lymphocytes % (Manual) 8 % (20-50) L 07/18/18 04:41 Monocytes % (Manual) 4 % (0-10) 07/18/18 04:41 Platelet Estimate Normal (NORMAL) 07/18/18 04:41 Large Platelets Present 07/18/18 04:41 Anisocytosis (manual) Slight 07/18/18 04:41 Microcytosis (manual) Slight 07/18/18 04:41 Ovalocytes Moderate 07/18/18 04:41 pO2 49 mm/Hg (30-55) 07/17/18 16:37 VBG pH 7.47 (7.32-7.43) H 07/17/18 16:37 VBG pCO2 43 mmHg (40-60) 07/17/18 16:37 VBG HCO3 29.9 mmol/L 07/17/18 16:37 VBG Total CO2 32.6 mmol/L (22-28) H 07/17/18 16:37 VBG O2 Sat (Calc) 91.7 % (40-65) H 07/17/18 16:37 VBG Base Excess 6.8 mmol/L (0.0-2.0) H 07/17/18 16:37 VBG Potassium 3.9 mmol/L (3.6-5.2) 07/17/18 16:37 Sodium 133.0 mmol/L (132-148) 07/17/18 16:37 Chloride 101.0 mmol/L (98-107) 07/17/18 16:37 Glucose 129 mg/dL (75-110) H 07/17/18 16:37 Lactate 1.1 mmol/L (0.7-2.1) 07/17/18 16:37 FiO2 21.0 % 07/17/18 16:37 Sodium 138 mmol/l (132-148) 07/20/18 05:52 Potassium 4.3 MMOL/L (3.6-5.0) 07/20/18 05:52 Chloride 100 mmol/L (98-107) 07/20/18 05:52 Carbon Dioxide 29 mmol/L (22-30) 07/20/18 05:52 Anion Gap 13 (10-20) 07/20/18 05:52 BUN 25 mg/dl (9-20) H 07/20/18 05:52 Creatinine 0.9 mg/dl (0.8-1.5) 07/20/18 05:52 Est GFR ( Amer) > 60 07/20/18 05:52 Est GFR (Non-Af Amer) > 60 07/20/18 05:52 POC Glucose (mg/dL) 317 mg/dL (65-110) H 07/21/18 05:11 Random Glucose 292 mg/dL (75-110) H 07/20/18 05:52 Hemoglobin A1c 7.0 % (4.2-6.5) H D 07/18/18 04:41 Calcium 8.6 mg/dL (8.4-10.2) 07/20/18 05:52 Total Bilirubin 0.6 mg/dl (0.2-1.3) 07/17/18 15:00 AST 30 U/L (17-59) 07/17/18 15:00 ALT 25 U/L (21-72) 07/17/18 15:00 Alkaline Phosphatase 46 U/L (38-126) 07/17/18 15:00 Troponin I 0.0170 ng/mL (0.00-0.120) 07/17/18 15:00 NT-Pro-B Natriuret Pep 777 pg/ml (0-900) 07/17/18 15:00 Total Protein 7.3 G/DL (6.3-8.2) 07/17/18 15:00 Albumin 3.9 g/dL (3.5-5.0) 07/17/18 15:00 Globulin 3.4 gm/dL (2.2-3.9) 07/17/18 15:00 Albumin/Globulin Ratio 1.1 (1.0-2.1) 07/17/18 15:00 Venous Blood Potassium 3.9 mmol/L (3.6-5.2) 07/17/18 16:37 Influenza Typ A,B (EIA) Pos for influenza a (NEGATIVE) H 07/17/18 18:03 - Hospital Course Hospital Course: 68 y/o male with a PMHx of COPD, HTN, NIDDM2, PE (w IVC filter) admitted for Acute COPD exacerbation and influenza A (Initial Influenza Negative, follow-up test positive in 3 hr interval). Admitted to tele 07/17/18, transferred to med surg 07/19/18. COPD exacerbation treated with Duo-neb Q6H, Advair Q12H, Solumedrol 40 Q8H, O2 via NC PRN (O2 Sat >96% on RA). CXR (07/17/18): Chronic scarring, No acute infiltrate CT Chest (07/17/18): Limited study demonstrating no definitive radiographic evidence of acute central pulmonary embolus. Centrilobular panlobular and bullous emphysematous changes upper lobe predominance right greater than left. Mild chronic atelectasis and or scarring changes both lung bases including the lingular and middle lobe regions. There is a small approximately 4.6 mm nodule seen in the anterior inferior aspect right lower lobe. Follow-up CT scan at 3 month interval recommended for further evaluation. Small hiatal hernia with slight wall thickening of the distal esophagus likely due to protrusion of gastric mucosa. Esophagitis not excluded. There also appears to be mild localized wall thickening of the proximal esophagus as well. Clinical correlation recommended to determine whether follow-up endoscopy is prudent to exclude esophagitis or other intrinsic/invasive wall lesion. Patient clinically improved, vitally stable, normal WBC [17.3 (07/17), 11.2 (07/18), 12.7 (07/19), 10.0 (07/20)]. Discharged s/p 5 day course of Tamiflu. Medrol dose cheryl prescribed and patient instructed to reume all home medications. Discharge Exam - Head Exam Head Exam: NORMAL INSPECTION - Eye Exam Eye Exam: Normal appearance - Respiratory Exam Respiratory Exam: Wheezes, NORMAL BREATHING PATTERN. absent: Respiratory Distress - Cardiovascular Exam Cardiovascular Exam: REGULAR RHYTHM, +S1, +S2 - GI/Abdominal Exam GI & Abdominal Exam: Soft. absent: Tenderness - Extremities Exam Extremities exam: normal inspection - Neurological Exam Neurological exam: Alert, Normal Gait, Oriented x3 - Psychiatric Exam Psychiatric exam: Normal Affect, Normal Mood - Skin Skin Exam: Dry, Intact, Normal Color, Warm Discharge Plan - Discharge Medications Prescriptions: Methylprednisolone [Medrol Dose Pack (21 tabs)] 4 mg PO ASDIR #21 mg - Follow Up Plan Condition: FAIR Disposition: HOME/ ROUTINE Instructions: Chronic Obstructive Pulmonary Disease (COPD), Including Emphysema, Flu, Adult (DC) Additional Instructions: Follow up with [facility] within 1 week Referrals: [facility] [Provider Group] <Jurgen Taylor - Last Filed: 07/21/18 16:04> Provider - Provider Date of Admission: 07/18/18 14:03 Attending physician: Jurgen Taylor MD Consults: 07/17/18 22:50 Pastoral Care Referral Routine Comment: Physician Instructions: Reason For Exam: information on advance directive 07/18/18 08:44 Social Work Referral Routine Comment: medication assistance(Tamiflu) Physician Instructions: Reason For Exam: medication assistance(Tamiflu) Hospital Course - Lab Results Lab Results: Micro Results 07/17/18 15:00 Blood Blood Culture - Preliminary NO GROWTH AFTER 4 DAYS 07/17/18 05:00 Naris MRSA Culture (Admit) - Final MRSA NOT DETECTED Most Recent Lab Values WBC 10.0 K/uL (4.8-10.8) 07/20/18 05:52 RBC 3.91 Mil/uL (4.40-5.90) L 07/20/18 05:52 Hgb 9.9 g/dL (12.0-18.0) L 07/20/18 05:52 Hct 31.1 % (35.0-51.0) L 07/20/18 05:52 MCV 79.6 fl (80.0-94.0) L 07/20/18 05:52 MCH 25.4 pg (27.0-31.0) L 07/20/18 05:52 MCHC 31.9 g/dL (33.0-37.0) L 07/20/18 05:52 RDW 16.3 % (11.5-14.5) H 07/20/18 05:52 Plt Count 297 K/uL (130-400) 07/20/18 05:52 MPV 7.9 fl (7.2-11.7) 07/20/18 05:52 Neut % (Auto) 87.4 % (50.0-75.0) H 07/20/18 05:52 Lymph % (Auto) 7.6 % (20.0-40.0) L 07/20/18 05:52 Tyler % (Auto) 4.9 % (0.0-10.0) 07/20/18 05:52 Eos % (Auto) 0.0 % (0.0-4.0) 07/20/18 05:52 Baso % (Auto) 0.1 % (0.0-2.0) 07/20/18 05:52 Neut # (Auto) 8.7 K/uL (1.8-7.0) H 07/20/18 05:52 Lymph # (Auto) 0.8 K/uL (1.0-4.3) L 07/20/18 05:52 Tyler # (Auto) 0.5 K/uL (0.0-0.8) 07/20/18 05:52 Eos # (Auto) 0.0 K/uL (0.0-0.7) 07/20/18 05:52 Baso # (Auto) 0.0 K/uL (0.0-0.2) 07/20/18 05:52 Neutrophils % (Manual) 88 % (42-75) H 07/18/18 04:41 Lymphocytes % (Manual) 8 % (20-50) L 07/18/18 04:41 Monocytes % (Manual) 4 % (0-10) 07/18/18 04:41 Platelet Estimate Normal (NORMAL) 07/18/18 04:41 Large Platelets Present 07/18/18 04:41 Anisocytosis (manual) Slight 07/18/18 04:41 Microcytosis (manual) Slight 07/18/18 04:41 Ovalocytes Moderate 07/18/18 04:41 pO2 49 mm/Hg (30-55) 07/17/18 16:37 VBG pH 7.47 (7.32-7.43) H 07/17/18 16:37 VBG pCO2 43 mmHg (40-60) 07/17/18 16:37 VBG HCO3 29.9 mmol/L 07/17/18 16:37 VBG Total CO2 32.6 mmol/L (22-28) H 07/17/18 16:37 VBG O2 Sat (Calc) 91.7 % (40-65) H 07/17/18 16:37 VBG Base Excess 6.8 mmol/L (0.0-2.0) H 07/17/18 16:37 VBG Potassium 3.9 mmol/L (3.6-5.2) 07/17/18 16:37 Sodium 133.0 mmol/L (132-148) 07/17/18 16:37 Chloride 101.0 mmol/L (98-107) 07/17/18 16:37 Glucose 129 mg/dL (75-110) H 07/17/18 16:37 Lactate 1.1 mmol/L (0.7-2.1) 07/17/18 16:37 FiO2 21.0 % 07/17/18 16:37 Sodium 138 mmol/l (132-148) 07/20/18 05:52 Potassium 4.3 MMOL/L (3.6-5.0) 07/20/18 05:52 Chloride 100 mmol/L (98-107) 07/20/18 05:52 Carbon Dioxide 29 mmol/L (22-30) 07/20/18 05:52 Anion Gap 13 (10-20) 07/20/18 05:52 BUN 25 mg/dl (9-20) H 07/20/18 05:52 Creatinine 0.9 mg/dl (0.8-1.5) 07/20/18 05:52 Est GFR ( Amer) > 60 07/20/18 05:52 Est GFR (Non-Af Amer) > 60 07/20/18 05:52 POC Glucose (mg/dL) 295 mg/dL (65-110) H 07/21/18 11:05 Random Glucose 292 mg/dL (75-110) H 07/20/18 05:52 Hemoglobin A1c 7.0 % (4.2-6.5) H D 07/18/18 04:41 Calcium 8.6 mg/dL (8.4-10.2) 07/20/18 05:52 Total Bilirubin 0.6 mg/dl (0.2-1.3) 07/17/18 15:00 AST 30 U/L (17-59) 07/17/18 15:00 ALT 25 U/L (21-72) 07/17/18 15:00 Alkaline Phosphatase 46 U/L (38-126) 07/17/18 15:00 Troponin I 0.0170 ng/mL (0.00-0.120) 07/17/18 15:00 NT-Pro-B Natriuret Pep 777 pg/ml (0-900) 07/17/18 15:00 Total Protein 7.3 G/DL (6.3-8.2) 07/17/18 15:00 Albumin 3.9 g/dL (3.5-5.0) 07/17/18 15:00 Globulin 3.4 gm/dL (2.2-3.9) 07/17/18 15:00 Albumin/Globulin Ratio 1.1 (1.0-2.1) 07/17/18 15:00 Venous Blood Potassium 3.9 mmol/L (3.6-5.2) 07/17/18 16:37 Influenza Typ A,B (EIA) Pos for influenza a (NEGATIVE) H 07/17/18 18:03 Attending/Attestation - Attestation I have personally seen and examined this patient.: Yes I have fully participated in the care of the patient.: Yes I have reviewed all pertinent clinical information, including history, physical exam and plan: Yes Notes (Text): 07/21/18 16:03 Patient seen and examined with resident. Case discussed and agreed with assessment. Patient took his last dose of Tamiflu and was discharged in stable condition.
[2018-07-21] MEDS: Albuterol-Ipratrop 3 mg / 0.5 (3 ml) UD INH SCH ×2 (07:14→13:31)
[2018-07-21] MEDS: Insulin Regular 100 units/ml SC SCH ×3 (07:48→12:00)
[2018-07-21] MEDS: Enoxaparin 40 mg Syringe SC SCH (09:47)
[2018-07-21] MEDS: Fluticasone-Salmeterol 500-50mcg Diskus IH SCH (09:48)
[2018-07-21] MEDS: MethylPREDNISolone 40 mg Vial IVP SCH (09:48)
[2018-07-21] MEDS: Pantoprazole 40 mg EC Tab PO SCH (09:49)
[2018-07-21 16:26] VITALS: BP 136/68; PULSE 105; TEMP 97.5; O2SAT 95
== END 2018-07-21 17:00 | disposition home or self-care (01) | DRG 140 ==
LOC: H.ER 13:48 → H.ERHOLD 17:57 → H.ICU/CCU 20:51 → OBSVTOIN 07-18 14:03 → H.TEL 07-18 20:33 → H.MEDSURG1 07-19 10:40
DX: J44.1 Chronic obstructive pulmonary disease with (acute) exacerbation (principal); I11.0 Hypertensive heart disease with heart failure; I50.9 Heart failure, unspecified; E11.65 Type 2 diabetes mellitus with hyperglycemia; J10.1 Influenza due to other identified influenza virus with other respiratory manifestations; Z86.711 Personal history of pulmonary embolism; R91.1 Solitary pulmonary nodule; L40.9 Psoriasis, unspecified; Z79.84 Long term (current) use of oral hypoglycemic drugs; E78.00 Pure hypercholesterolemia, unspecified; K44.9 Diaphragmatic hernia without obstruction or gangrene; Z87.891 Personal history of nicotine dependence; Z59.0 Homelessness; M79.89 Other specified soft tissue disorders

== ENCOUNTER 2018-08-10 15:55 | Observation (INO) | payer SELFPAY ==
[2018-08-10 15:55] VITALS: BMI 32.6
[2018-08-10] MEDS ORDERED: Albuterol-Ipratrop 3 mg / 0.5 (3 ml) UD INH STA ×3 (17:09→18:05)
[2018-08-10] MEDS ORDERED: Albuterol-Ipratrop 3 mg / 0.5 (3 ml) UD ONE ×3 (17:29→21:51)
--- NOTE | 2018-08-10 17:37 | ED PDOC ---
HPI: SOB/CHF/COPD Time Seen by Provider: 08/10/18 16:39 Chief Complaint (Nursing): Shortness Of Breath Chief Complaint (Provider): Shortness Of Breath History Per: Patient History/Exam Limitations: no limitations Onset/Duration Of Symptoms: Days (x 2) Current Symptoms Are (Timing): Still Present Current Respiratory Medications: Albuterol Associated Symptoms: Fever, Chest Pain Additional Complaint(s): 68 year old male with a history of CHF, COPD, bronchitis and DM presents to the ED with cough, subjective fever and chest pain for the last two days. Patient reports chronic leg swelling and used nebulizer treatment without relief. Denies other complaints. PMD: none provided Past Medical History Reviewed: Historical Data, Nursing Documentation, Vital Signs Vital Signs: Last Vital Signs Temp 98.4 F 08/10/18 16:04 Pulse 117 H 08/10/18 16:04 Resp 22 08/10/18 16:04 BP 105/64 08/10/18 16:04 Pulse Ox 98 08/10/18 17:00 - Medical History PMH: Asthma, CHF, COPD, Diabetes, HTN, Hypercholesterolemia, Pneumonia, Pulmonary Embolism Denies: HIV, Chronic Kidney Disease - Surgical History Surgical History: No Surg Hx - Family History Family History: States: Unknown Family Hx, [place], Diabetes - Immunization History Hx Tetanus Toxoid Vaccination: No Hx Influenza Vaccination: No Hx Pneumococcal Vaccination: No - Home Medications Home Medications: Ambulatory Orders Medication Instructions Recorded RX: Albuterol HFA [Ventolin HFA 90 2 puff INH Q4 PRN 08/10/18 mcg/actuation (8 g)] - Allergies Allergies/Adverse Reactions: Allergies Allergy/AdvReac Type Severity Reaction Status Date / Time No Known Allergies Allergy Verified 05/07/18 00:13 Review of Systems ROS Statement: Except As Marked, All Systems Reviewed And Found Negative Constitutional: Positive for: Fever. Negative for: Chills Cardiovascular: Positive for: Chest Pain. Negative for: Palpitations Respiratory: Positive for: Cough Gastrointestinal: Negative for: Nausea, Vomiting, Abdominal Pain, Diarrhea Genitourinary Male: Negative for: Dysuria, Frequency, Incontinence Musculoskeletal: Negative for: Leg Pain Physical Exam - Reviewed Nursing Documentation Reviewed: Yes Vital Signs Reviewed: Yes - Physical Exam Appears: Positive for: Non-toxic, No Acute Distress Head Exam: Positive for: ATRAUMATIC, NORMAL INSPECTION, NORMOCEPHALIC Skin: Positive for: Normal Color, Warm, Dry Eye Exam: Positive for: EOMI, Normal appearance, PERRL Neck: Positive for: Normal, Painless ROM, Supple Cardiovascular/Chest: Positive for: Regular Rate, Rhythm. Negative for: Murmur Respiratory: Positive for: Wheezing (bilaterally). Negative for: Respiratory Distress Gastrointestinal/Abdominal: Positive for: Normal Exam, Soft. Negative for: Tenderness Back: Positive for: Normal Inspection. Negative for: L CVA Tenderness, R CVA Tenderness Extremity: Positive for: Normal ROM (x 4), Swelling (chronic bilateral leg ) Neurologic/Psych: Positive for: Alert, Oriented (x 3). Negative for: Motor/Sensory Deficits - Laboratory Results Result Diagrams: 08/11/18 05:25 08/11/18 05:25 - ECG ECG: Positive for: Interpreted By Me, Viewed By Me ECG Rhythm: Positive for: Normal QRS, Normal ST Segment, Sinus Tachycardia. Negative for: ST/T Changes Rate: 109 O2 Sat by Pulse Oximetry: 98 (RA) Pulse Ox Interpretation: Normal - Radiology X-Ray: Read By Radiologist X-Ray Interpretation: No Acute Disease - Progress Re-evaluation Time: 18:30 Condition: Re-examined, Improving,but remains with symptoms Medical Decision Making Medical Decision Makin:09 Impression: COPD exacerbation r/o pneumonia Initial Plan: --CBC --BNP --Troponin --BMP --CXR --Duoneb 3 ml INH --Duoneb 3 ml INH --Duoneb 3 ml INH --Peak flow pre/post --Peak flow pre/post --Peak flow pre/post --Solumedrol 125 mg IVP Scribe Attestation: Documented by Makeda Aquino acting as a scribe for Maverick Hsu MD Provider Scribe Attestation: All medical record entries made by the Scribe were at my direction and personally dictated by me. I have reviewed the chart and agree that the record accurately reflects my personal performance of the history, physical exam, me dical decision making, and the department course for this patient. I have also personally directed, reviewed, and agree with the discharge instructions and disposition. Disposition - Clinical Impression Clinical Impression: COPD (chronic obstructive pulmonary disease), COPD exacerbation - Patient ED Disposition Is Patient to be Admitted: Yes Discussed With : Jurgen Taylor Doctor Will See Patient In The: ED - Disposition Disposition Time: 18:30 Condition: FAIR - Pt Status Changed To: Hospital Disposition Of: Observation - POA Present On Arrival: None
[2018-08-10 18:05] LABS: BASO # 0.1 K/uL (0.0-0.2); BASO % 1.2 % (0.0-2.0); EOS # 0.2 K/uL (0.0-0.7); EOS % 2.1 % (0.0-4.0); HEMOGLOBIN 9.2 g/dL (12.0-18.0); LYMPH # 2.8 K/uL (1.0-4.3); LYMPH % 25.6 % (20.0-40.0); MEAN CORPUSCULAR HEMOGLOBIN 24.1 pg (27.0-31.0); MEAN CORPUSCULAR HGB CONC 32.2 g/dL (33.0-37.0); MEAN PLATELET VOLUME 7.8 fl (7.2-11.7); MONO # 1.8 K/uL (0.0-0.8); MONO % 16.8 % (0.0-10.0); NEUT # 5.9 K/uL (1.8-7.0); NEUT % 54.3 % (50.0-75.0); RBC 3.8 Mil/uL (4.40-5.90); RED CELL DISTRIBUTION WIDTH 17.2 % (11.5-14.5); WHITE BLOOD COUNT 10.8 K/uL (4.8-10.8)
--- NOTE | 2018-08-10 18:09 | RAD ---
Date of service: 08/10/2018 PROCEDURE: CHEST RADIOGRAPH, 1 VIEW HISTORY: chest pain COMPARISON: Chest radiograph dated 07/17/2018.. FINDINGS: LUNGS: Clear. PLEURA: No pneumothorax or pleural fluid seen. CARDIOVASCULAR: Aortic atherosclerotic calcifications. Cardiomediastinal silhouette stably enlarged. OSSEOUS STRUCTURES: Unchanged. VISUALIZED UPPER ABDOMEN: Normal. OTHER FINDINGS: None. IMPRESSION: No active disease.
[2018-08-10 18:10] LABS: BLOOD UREA NITROGEN 16 mg/dl (9-20); CALCIUM 8.6 mg/dL (8.4-10.2); GFR NON-AFRICAN AMERICAN > 60
[2018-08-10 18:22] LABS: B-TYPE NATRIURETIC PEPTIDE 308 pg/ml (0-900)
[2018-08-10] MEDS ORDERED: levoFLOXacin 500 mg in D5W 500 MG/100 ML BAG IVPB STA (18:59)
[2018-08-10] MEDS ORDERED: Albuterol 0.083% Inhal Sol (2.5 mg/3 mL) UD INH PRN (19:10)
--- NOTE | 2018-08-10 19:24 | CP.PCM.HP ---
<Erwin Meehan - Last Filed: 08/10/18 19:12> History of Present Illness - History of Present Illness History of Present Illness: 68 y/oM with a PMHx of COPD, NIDDM2, HTN, PE w IVC filter (not on AC) and psoriasis presented to the ED complaining of severe SOB, productive cough with very thick green sputum, sore throat, subjective fever and bilateral rib pain due to persistent cough. Symptoms aggravated last night, did not improve with inhaler and nebulizer treatment. Pt also reports his b/l leg edema has aggravated. Pt denies headaches, changes in vision, dizziness, hearing deficit, palpitations, diaphoresis, N/V/D/C, urinary symptoms or rash. PMD: None provided Allergies: NKDA -PMH: COPD, NIDDM2, HTN, PE s/p IVC filter-2014 (not on anticoagulation), hx of retroperitoneal hematoma (2014) and Psoriasis -PSH: IVC filter -Fam: denies -SOC: former smoker (30 pack years, quit 1 yr ago), former Etoh abuse, denies drug use; is homeless, sometimes sleeps in his friends house. At ED: --Vital signs: only remarkable for tachycardia --CBC showed a Hgb 9.2, MCV 75, RDW 17-high. --BMP was WNL, troponin neg, Pro-BNP was WNL. --CXR: No active disease. --Albuterol 3mL x3 and IV Solu-Medrol 125mg was administered. Present on Admission - Present on Admission Any Indicators Present on Admission: Yes History of DVT/PE: Yes History of Uncontrolled Diabetes: Yes Urinary Catheter: No Decubitus Ulcer Present: No Review of Systems - Review of Systems All systems: reviewed and no additional remarkable complaints except (as per HPI) Past Patient History - Infectious Disease Hx of Infectious Diseases: None - Tetanus Immunizations Tetanus Immunization: Unknown - Past Medical History & Family History Past Medical History?: Yes - Past Social History Smoking Status: Former Smoker - CARDIAC Hx Congestive Heart Failure: Yes Hx Hypercholesterolemia: Yes Hx Hypertension: Yes - PULMONARY Hx Asthma: Yes Hx Chronic Obstructive Pulmonary Disease (COPD): Yes Hx Pneumonia: Yes Hx Pulmonary Embolism: Yes - NEUROLOGICAL Hx Neurological Disorder: No - HEENT Hx HEENT Problems: No - RENAL Hx Chronic Kidney Disease: No - ENDOCRINE/METABOLIC Hx Endocrine Disorders: Yes Hx Diabetes Mellitus Type 2: Yes - HEMATOLOGICAL/ONCOLOGICAL Hx Human Immunodeficiency Virus (HIV): No - INTEGUMENTARY Hx Dermatological Problems: Yes Hx Psoriasis: Yes - MUSCULOSKELETAL/RHEUMATOLOGICAL Hx Musculoskeletal Disorders: No Hx Falls: Yes (6 years ago) - GASTROINTESTINAL Hx Gastrointestinal Disorders: Yes Other/Comment: GI bleeding - GENITOURINARY/GYNECOLOGICAL Hx Genitourinary Disorders: No - PSYCHIATRIC Hx Psychophysiologic Disorder: No Hx Substance Use: No - SURGICAL HISTORY Hx Surgeries: Yes Other/Comment: IVC Filter - ANESTHESIA Hx Anesthesia: Yes Hx Anesthesia Reactions: No Hx Malignant Hyperthermia: No Meds Allergies/Adverse Reactions: Allergies Allergy/AdvReac Type Severity Reaction Status Date / Time No Known Allergies Allergy Verified 05/07/18 00:13 Physical Exam - Constitutional Appears: No Acute Distress - Head Exam Head Exam: ATRAUMATIC, NORMAL INSPECTION - Eye Exam Eye Exam: EOMI, Normal appearance - Neck Exam Neck exam: Positive for: Full Rom, Normal Inspection. Negative for: Lymphadenopathy, Meningismus - Respiratory Exam Respiratory Exam: Rhonchi (diffuse), Wheezes (diffuse), NORMAL BREATHING PATTERN. absent: Accessory Muscle Use, Respiratory Distress - Cardiovascular Exam Cardiovascular Exam: Tachycardia, +S1, +S2 - GI/Abdominal Exam GI & Abdominal Exam: Soft. absent: Distended, Guarding, Tenderness - Extremities Exam Extremities exam: Positive for: full ROM, pedal edema. Negative for: calf tenderness, normal inspection (B/l lower leg swelling, presence of very dry desquamative/exfoliative dermatitis.) - Neurological Exam Neurological exam: Alert, Oriented x3 - Skin Additional comments: Dry psoriasis lesions on bilateral arms. Results - Vital Signs Recent Vital Signs: Last Vital Signs Temp 98.4 F 08/10/18 16:04 Pulse 109 H 08/10/18 18:16 Resp 22 08/10/18 16:04 BP 105/64 08/10/18 16:04 Pulse Ox 98 08/10/18 18:16 - Labs Result Diagrams: 08/10/18 17:40 08/10/18 17:40 Labs: Laboratory Results - last 24 hr 08/10/18 08/10/18 17:40 17:40 WBC 10.8 RBC 3.80 L Hgb 9.2 L Hct 28.5 L MCV 75.0 L D MCH 24.1 L MCHC 32.2 L RDW 17.2 H Plt Count 289 MPV 7.8 Neut % (Auto) 54.3 Lymph % (Auto) 25.6 Brooke % (Auto) 16.8 H Eos % (Auto) 2.1 Baso % (Auto) 1.2 Neut # (Auto) 5.9 Lymph # (Auto) 2.8 Brooke # (Auto) 1.8 H Eos # (Auto) 0.2 Baso # (Auto) 0.1 Sodium 137 Potassium 4.1 Chloride 103 Carbon Dioxide 26 Anion Gap 12 BUN 16 Creatinine 1.2 Est GFR ( Amer) > 60 Est GFR (Non-Af Amer) > 60 Random Glucose 91 Calcium 8.6 Troponin I 0.0140 NT-Pro-B Natriuret Pep 308 Assessment & Plan - Assessment and Plan (Free Text) Assessment: 68 y/o male with a PMHx of COPD, HTN, NIDDM2, PE (w IVC filter) admitted for management of COPD exacerbation. --CXR: no active disease. PLAN: >Acute COPD Exacerbation --Afebrile, tachycardia, NO leukocytosis --Home meds resumed: Advair and Montelukast --Duoneb RQID --Albuterol PRN RQ4 --Solumedrol 60mg Q8H --O2 via NC PRN --Levofloxacin 500mg IV daily --F/U AM labs. >NIDDM2 --Chronic --Last HbA1c 7.0 on 07/18/18 --Resume metformin 500mg BID >HTN --Controlled --Heart healthy diet - monitor BP >Hx of PE with IVC Filter --Lovenox 40mg SC QD >Prophylaxis - DVT: lovenox daily Case discussed with Dr Brandon Oscar PGY-2 - Date & Time Date: 08/10/18 Time: 19:42 <Jurgen Taylor - Last Filed: 08/11/18 09:51> Results - Vital Signs Recent Vital Signs: Last Vital Signs Temp 97.9 F 08/11/18 08:36 Pulse 101 H 08/11/18 08:36 Resp 20 08/11/18 08:36 BP 119/62 08/11/18 08:36 Pulse Ox 95 08/11/18 08:36 - Labs Result Diagrams: 08/11/18 05:25 08/11/18 05:25 Labs: Laboratory Results - last 24 hr 08/10/18 08/10/18 08/10/18 17:40 17:40 22:13 WBC 10.8 RBC 3.80 L Hgb 9.2 L Hct 28.5 L MCV 75.0 L D MCH 24.1 L MCHC 32.2 L RDW 17.2 H Plt Count 289 MPV 7.8 Neut % (Auto) 54.3 Lymph % (Auto) 25.6 Brooke % (Auto) 16.8 H Eos % (Auto) 2.1 Baso % (Auto) 1.2 Neut # (Auto) 5.9 Lymph # (Auto) 2.8 Brooke # (Auto) 1.8 H Eos # (Auto) 0.2 Baso # (Auto) 0.1 Sodium 137 Potassium 4.1 Chloride 103 Carbon Dioxide 26 Anion Gap 12 BUN 16 Creatinine 1.2 Est GFR ( Amer) > 60 Est GFR (Non-Af Amer) > 60 POC Glucose (mg/dL) 264 H Random Glucose 91 Calcium 8.6 Troponin I 0.0140 NT-Pro-B Natriuret Pep 308 08/10/18 08/11/18 08/11/18 22:54 05:25 05:25 WBC 9.6 RBC 3.95 L Hgb 9.4 L Hct 29.8 L MCV 75.5 L MCH 23.8 L MCHC 31.5 L RDW 17.2 H Plt Count 291 MPV 7.8 Neut % (Auto) 86.8 H Lymph % (Auto) 10.5 L Brooke % (Auto) 2.6 Eos % (Auto) 0.0 Baso % (Auto) 0.1 Neut # (Auto) 8.4 H Lymph # (Auto) 1.0 Brooke # (Auto) 0.3 Eos # (Auto) 0.0 Baso # (Auto) 0.0 Sodium 138 Potassium 4.0 Chloride 104 Carbon Dioxide 24 Anion Gap 14 BUN 19 Creatinine 1.1 Est GFR ( Amer) > 60 Est GFR (Non-Af Amer) > 60 POC Glucose (mg/dL) 236 H Random Glucose 208 H Calcium 8.7 Troponin I NT-Pro-B Natriuret Pep 08/11/18 05:28 WBC RBC Hgb Hct MCV MCH MCHC RDW Plt Count MPV Neut % (Auto) Lymph % (Auto) Brooke % (Auto) Eos % (Auto) Baso % (Auto) Neut # (Auto) Lymph # (Auto) Brooke # (Auto) Eos # (Auto) Baso # (Auto) Sodium Potassium Chloride Carbon Dioxide Anion Gap BUN Creatinine Est GFR ( Amer) Est GFR (Non-Af Amer) POC Glucose (mg/dL) 199 H Random Glucose Calcium Troponin I NT-Pro-B Natriuret Pep Attending/Attestation - Attestation I have personally seen and examined this patient.: Yes I have fully participated in the care of the patient.: Yes I have reviewed all pertinent clinical information: Yes Notes (Text): 08/11/18 09:50 Patient seen and examined with resident. Case discussed and agreed with assessm ent and plan of management.
[2018-08-10] MEDS: Albuterol-Ipratrop 3 mg / 0.5 (3 ml) UD INH SCH (21:51)
[2018-08-10] MEDS ORDERED: Glucagon Recombinant 1 mg Inj IM PRN (23:31)
[2018-08-10] MEDS ORDERED: Dextrose 50% SYRINGE Inj (50 ml) IV PRN (23:31)
[2018-08-10] MEDS: Fluticasone-Salmeterol 500-50mcg Diskus IH SCH (23:36)
[2018-08-11] MEDS ORDERED: methylPREDNISolone 60 MG in Sodium Chloride 0.9% 50 ML IVPB SCH (01:00)
[2018-08-11 07:07] LABS: BASO % 0.1 % (0.0-2.0); HEMOGLOBIN 9.4 g/dL (12.0-18.0); LYMPH % 10.5 % (20.0-40.0); MEAN CELL VOLUME 75.5 fl (80.0-94.0); MEAN CORPUSCULAR HEMOGLOBIN 23.8 pg (27.0-31.0); MEAN CORPUSCULAR HGB CONC 31.5 g/dL (33.0-37.0); MEAN PLATELET VOLUME 7.8 fl (7.2-11.7); MONO # 0.3 K/uL (0.0-0.8); MONO % 2.6 % (0.0-10.0); NEUT # 8.4 K/uL (1.8-7.0); NEUT % 86.8 % (50.0-75.0); RBC 3.95 Mil/uL (4.40-5.90); RED CELL DISTRIBUTION WIDTH 17.2 % (11.5-14.5); WHITE BLOOD COUNT 9.6 K/uL (4.8-10.8)
[2018-08-11 07:21] LABS: BLOOD UREA NITROGEN 19 mg/dl (9-20); CALCIUM 8.7 mg/dL (8.4-10.2); GFR NON-AFRICAN AMERICAN > 60
[2018-08-11] MEDS ORDERED: levoFLOXacin 500 mg in D5W 500 MG/100 ML BAG IVPB SCH (09:00)
[2018-08-11] MEDS: Fluticasone-Salmeterol 500-50mcg Diskus IH SCH ×2 (09:12→21:50)
[2018-08-11] MEDS: Enoxaparin 40 mg Syringe SC SCH (09:13)
[2018-08-11] MEDS: Albuterol-Ipratrop 3 mg / 0.5 (3 ml) UD INH SCH ×3 (11:42→19:09)
--- NOTE | 2018-08-11 11:49 | CP.PCM.PN ---
Subjective - Date & Time of Evaluation Date of Evaluation: 08/11/18 Time of Evaluation: 11:49 - Subjective Subjective: 68 y/o male with a PMHx of COPD, NIDDM2, HTN, PE w IVC filter (not on AC) seen and evaluated at bedside due to complaints of severe shortness of breath, cough and sore throat. Patient states his symptoms worsened yesterday. Patient reports productive cough with thick green sputum. Pt denies headaches, fever, nausea, vomiting, urinary symptoms at this time Objective - Vital Signs/Intake and Output Vital Signs (last 24 hours): Temp Pulse Resp BP Pulse Ox 97.9 F 101 H 20 119/62 95 08/11/18 08:36 08/11/18 08:36 08/11/18 08:36 08/11/18 08:36 08/11/18 08:36 - Medications Medications: Current Medications Albuterol Sulfate (Albuterol 0.083% Inhal Susan (2.5 Mg/3 Ml) Ud) 2.5 mg INH RQ4 PRN PRN Reason: Shortness of Breath Last Admin: 08/11/18 05:23 Dose: 2.5 mg Albuterol/Ipratropium (Duoneb 3 Mg/0.5 Mg (3 Ml) Ud) 3 ml INH RQID JEFFREY Last Admin: 08/11/18 11:42 Dose: 3 ml Dextrose (Dextrose 50% Inj) 0 ml IV STAT PRN; Protocol PRN Reason: Hypoglycemia Protocol Dextrose (Glutose 15) 0 gm PO ONCE PRN; Protocol PRN Reason: Hypoglycemia Protocol Enoxaparin Sodium (Lovenox) 40 mg SC DAILY JEFFREY; Protocol Last Admin: 08/11/18 09:13 Dose: 40 mg Glucagon (Glucagen Diagnostic Kit) 0 mg IM STAT PRN; Protocol PRN Reason: Hypoglycemia Protocol Levofloxacin/Dextrose (Levaquin 500mg) 500 mg in 100 mls @ 100 mls/hr IVPB DAILY JEFFREY; Protocol Insulin Human Lispro (Humalog) 0 units SC ACCU-CHECK JEFFREY; Protocol Lactic Acid (Lac-Hydrin 12% Lotion (225 G)) 1 applic TOP TID JEFFREY Last Admin: 08/11/18 09:13 Dose: 1 applic Metformin HCl (Glucophage) 500 mg PO BIDWM JEFFREY Last Admin: 08/11/18 09:12 Dose: 500 mg Methylprednisolone (Solu-Medrol) 60 mg IV Q8H [facility] Last Admin: 08/11/18 04:55 Dose: 60 mg Montelukast Sodium (Singulair) 10 mg PO HS [facility] Last Admin: 08/10/18 23:36 Dose: 10 mg Fluticasone/Salmeterol (Advair Diskus 500/50) 1 puff IH Q12 [facility] Last Admin: 08/11/18 09:12 Dose: 1 puff - Labs Labs: 08/11/18 05:25 08/11/18 05:25 - Constitutional Appears: Well, Non-toxic, No Acute Distress - Head Exam Head Exam: ATRAUMATIC, NORMOCEPHALIC - Eye Exam Eye Exam: Normal appearance, PERRL - ENT Exam ENT Exam: Mucous Membranes Moist - Neck Exam Neck Exam: Full ROM. absent: Lymphadenopathy - Respiratory Exam Respiratory Exam: Rhonchi, Wheezes, NORMAL BREATHING PATTERN. absent: Accessory Muscle Use, Decreased Breath Sounds - Cardiovascular Exam Cardiovascular Exam: Tachycardia, +S1, +S2 - GI/Abdominal Exam GI & Abdominal Exam: Soft, Normal Bowel Sounds. absent: Firm, Guarding, Rigid - Neurological Exam Neurological Exam: Alert, Awake, Oriented x3 - Psychiatric Exam Psychiatric exam: Normal Affect, Normal Mood Assessment and Plan - Assessment and Plan (Free Text) Assessment: 68 y/o male with a PMHx of COPD, HTN, NIDDM2, PE (w IVC filter) admitted for management of COPD exacerbation. Plan: Acute COPD Exacerbation - Afebrile, tachycardia, No leukocytosis - Home meds resumed: Advair and Montelukast - Duoneb RQID - Albuterol PRN RQ4 - Solumedrol 60mg Q8H - O2 via NC PRN - Levofloxacin 500mg IV daily NIDDM2 - Chronic - Last HbA1c 7.0 on 07/18/18 - Metformin 500mg BID HTN - Controlled - Heart healthy diet - monitor BP Hx of PE with IVC Filter Lovenox 40 mg DAILY DVT Prophylaxis Lovenox 40 mg DAILY
[2018-08-11] MEDS: Insulin Lispro (humaLOG) 100 Units/ml Inj SC SCH ×4 (13:06→23:23)
--- NOTE | 2018-08-11 14:00 | CARD ---
APPROVED REPORT Date of service: 08/10/2018 EKG Measurement Heart [id number] <Conclusion> Sinus tachycardia Otherwise normal ECG
[2018-08-11] MEDS: levoFLOXacin 500 mg in D5W 500 MG/100 ML BAG IVPB SCH (15:15)
[2018-08-11 15:28] LABS: ABG ALLEN TEST YES; ARTERIAL BLOOD GAS HCO3 26.2 mmol/L (21-28); ARTERIAL BLOOD GAS HEMOGLOBIN 9.1 g/dL (11.7-17.4); ARTERIAL BLOOD GAS O2 CAPACITY 12.7 mL/dL (16-24); ARTERIAL BLOOD GAS O2 CONTENT 12.6 ML/dL (15-23); ARTERIAL BLOOD GAS O2 SAT 99.4 % (95-98); ARTERIAL BLOOD GAS PCO2 38 mm/Hg (35-45); ARTERIAL BLOOD GAS PH 7.44 (7.35-7.45); ARTERIAL BLOOD GAS PO2 85 mm/Hg (80-100)
[2018-08-12] MEDS: Albuterol-Ipratrop 3 mg / 0.5 (3 ml) UD INH SCH ×2 (07:41→11:16)
[2018-08-12 08:09] VITALS: BP 118/56; PULSE 110; RESP 20; TEMP 97.8; O2SAT 97
[2018-08-12] MEDS: Fluticasone-Salmeterol 500-50mcg Diskus IH SCH (08:46)
[2018-08-12] MEDS: Enoxaparin 40 mg Syringe SC SCH (08:47)
[2018-08-12] MEDS: levoFLOXacin 500 mg in D5W 500 MG/100 ML BAG IVPB SCH (08:47)
[2018-08-12] MEDS: Insulin Lispro (humaLOG) 100 Units/ml Inj SC SCH ×2 (08:48→12:06)
--- NOTE | 2018-08-12 08:49 | CP.PCM.DIS ---
Provider - Provider Date of Admission: 08/10/18 18:51 Attending physician: Jurgen Taylor MD Primary care physician: none provided by patient Consults: 08/11/18 09:00 Social Work Referral Routine Comment: Patient is homeless Physician Instructions: Reason For Exam: Patient is homeless Time Spent in preparation of Discharge (in minutes): 30 Hospital Course - Lab Results Lab Results: Most Recent Lab Values WBC 9.6 K/uL (4.8-10.8) 08/11/18 05:25 RBC 3.95 Mil/uL (4.40-5.90) L 08/11/18 05:25 Hgb 9.4 g/dL (12.0-18.0) L 08/11/18 05:25 Hct 29.8 % (35.0-51.0) L 08/11/18 05:25 MCV 75.5 fl (80.0-94.0) L 08/11/18 05:25 MCH 23.8 pg (27.0-31.0) L 08/11/18 05:25 MCHC 31.5 g/dL (33.0-37.0) L 08/11/18 05:25 RDW 17.2 % (11.5-14.5) H 08/11/18 05:25 Plt Count 291 K/uL (130-400) 08/11/18 05:25 MPV 7.8 fl (7.2-11.7) 08/11/18 05:25 Neut % (Auto) 86.8 % (50.0-75.0) H 08/11/18 05:25 Lymph % (Auto) 10.5 % (20.0-40.0) L 08/11/18 05:25 Stone % (Auto) 2.6 % (0.0-10.0) 08/11/18 05:25 Eos % (Auto) 0.0 % (0.0-4.0) 08/11/18 05:25 Baso % (Auto) 0.1 % (0.0-2.0) 08/11/18 05:25 Neut # (Auto) 8.4 K/uL (1.8-7.0) H 08/11/18 05:25 Lymph # (Auto) 1.0 K/uL (1.0-4.3) 08/11/18 05:25 Stone # (Auto) 0.3 K/uL (0.0-0.8) 08/11/18 05:25 Eos # (Auto) 0.0 K/uL (0.0-0.7) 08/11/18 05:25 Baso # (Auto) 0.0 K/uL (0.0-0.2) 08/11/18 05:25 pCO2 38 mm/Hg (35-45) 08/11/18 15:20 pO2 85 mm/Hg (80-100) 08/11/18 15:20 HCO3 26.2 mmol/L (21-28) 08/11/18 15:20 ABG pH 7.44 (7.35-7.45) 08/11/18 15:20 ABG Total CO2 27.0 mmol/L (22-28) 08/11/18 15:20 ABG O2 Saturation 99.4 % (95-98) H 08/11/18 15:20 ABG O2 Content 12.6 ML/dL (15-23) L 08/11/18 15:20 ABG Base Excess 1.6 mmol/L (-2.0-3.0) 08/11/18 15:20 ABG Hemoglobin 9.1 g/dL (11.7-17.4) L 08/11/18 15:20 ABG Carboxyhemoglobin 1.1 % (0.5-1.5) 08/11/18 15:20 POC ABG HHb (Measured) 0.6 % (0.0-5.0) 08/11/18 15:20 ABG Methemoglobin 1.0 % (0.0-3.0) 08/11/18 15:20 ABG O2 Capacity 12.7 mL/dL (16-24) L 08/11/18 15:20 Slim Test Yes 08/11/18 15:20 A-a O2 Difference 17.0 mm/Hg 08/11/18 15:20 Hgb O2 Saturation 97.2 % (95.0-98.0) 08/11/18 15:20 FiO2 21.0 % 08/11/18 15:20 Sodium 138 mmol/l (132-148) 08/11/18 05:25 Potassium 4.0 MMOL/L (3.6-5.0) 08/11/18 05:25 Chloride 104 mmol/L (98-107) 08/11/18 05:25 Carbon Dioxide 24 mmol/L (22-30) 08/11/18 05:25 Anion Gap 14 (10-20) 08/11/18 05:25 BUN 19 mg/dl (9-20) 08/11/18 05:25 Creatinine 1.1 mg/dl (0.8-1.5) 08/11/18 05:25 Est GFR ( Amer) > 60 08/11/18 05:25 Est GFR (Non-Af Amer) > 60 08/11/18 05:25 POC Glucose (mg/dL) 243 mg/dL (65-110) H 08/12/18 05:17 Random Glucose 208 mg/dL (75-110) H 08/11/18 05:25 Calcium 8.7 mg/dL (8.4-10.2) 08/11/18 05:25 Troponin I 0.0140 ng/mL (0.00-0.120) 08/10/18 17:40 NT-Pro-B Natriuret Pep 308 pg/ml (0-900) 08/10/18 17:40 - Hospital Course Hospital Course: 68 y/o male with a PMHx of COPD, HTN, NIDDM2, PE (w IVC filter) admitted for Acute COPD exacerbation with shortness of breath and productive cough. Patient CXR showed no active disease, ABG normal. Patient treated with high dose So lumedrol IV 60 mg IV Q8 , Duonebs, O2 vi aNC and Levaquine IV empirically. Patient clinically improved, vitally stable, normal WBC [10.8 (08/10), 9.6 (08/11)]. Medrol dose cheryl prescribed and patient instructed to resume all home medications. - Date & Time of H&P Date of H&P: 08/12/18 Time of H&P: 08:54 Discharge Exam - Head Exam Head Exam: ATRAUMATIC, NORMAL INSPECTION, NORMOCEPHALIC - Eye Exam Eye Exam: Normal appearance, PERRL - ENT Exam ENT Exam: Mucous Membranes Moist - Neck Exam Neck exam: Full Rom - Respiratory Exam Respiratory Exam: Rhonchi, Wheezes, Respiratory Distress, NORMAL BREATHING PATTERN - Cardiovascular Exam Cardiovascular Exam: REGULAR RHYTHM, +S1, +S2 - GI/Abdominal Exam GI & Abdominal Exam: Normal Bowel Sounds. absent: Distended, Firm, Guarding - Back Exam Back exam: absent: CVA tenderness (L), CVA tenderness (R) - Neurological Exam Neurological exam: Alert, Oriented x3 - Psychiatric Exam Psychiatric exam: Normal Affect, Normal Mood - Skin Skin Exam: Normal Color Discharge Plan - Discharge Medications Prescriptions: Methylprednisolone [Medrol Dose Pack (21 tabs)] 4 mg PO ASDIR #21 mg - Follow Up Plan Condition: FAIR Disposition: HOME/ ROUTINE Patient education suggested?: Yes Instructions: Exacerbation of COPD (DC) Additional Instructions: follow up with primary MD 1 week Referrals: [facility] [place] [Outside]
== END 2018-08-12 14:46 | disposition home or self-care (01) ==
LOC: H.ER 15:55 → H.ERHOLD 18:51 → H.MEDSURG1 22:27
DX: J44.1 Chronic obstructive pulmonary disease with (acute) exacerbation (principal); I50.9 Heart failure, unspecified; I11.0 Hypertensive heart disease with heart failure; D63.8 Anemia in other chronic diseases classified elsewhere; E11.9 Type 2 diabetes mellitus without complications; E78.00 Pure hypercholesterolemia, unspecified; F17.200 Nicotine dependence, unspecified, uncomplicated; Z86.711 Personal history of pulmonary embolism; Z87.01 Personal history of pneumonia (recurrent); Z79.84 Long term (current) use of oral hypoglycemic drugs; Z59.0 Homelessness
CPT/HCPCS: 36415; 71045; 80048; 82803; 82948; 83880; 84484; 85025; 93005; 94150; 94640; 96365; 96366; 96372; 96375; 96376; 99285; G0378; J1650; J2930

== ENCOUNTER 2018-09-20 11:59 | Observation (INO) | payer SELFPAY ==
[2018-09-20 11:59] VITALS: BMI 32.6
[2018-09-20] MEDS ORDERED: Albuterol-Ipratrop 3 mg / 0.5 (3 ml) UD ONE ×2 (12:49→16:25)
[2018-09-20] MEDS ORDERED: Albuterol-Ipratrop 3 mg / 0.5 (3 ml) UD INH STA ×2 (13:01→13:02)
--- NOTE | 2018-09-20 13:29 | ED PDOC ---
HPI: SOB/CHF/COPD Time Seen by Provider: 09/20/18 12:30 Chief Complaint (Nursing): Shortness Of Breath Chief Complaint (Provider): Shortness Of Breath Additional Complaint(s): Preet Brown is a 68 year old male with a past medical history of COPD, who presents to the emergency department complaining of pinching chest pain, onset x1 day. Patient is also complaining of shortness of breath, cough and bilateral leg swelling. patient is well known to Ed staff for bed seeking behavior. PMD: no provider Past Medical History Vital Signs: Last Vital Signs Temp 98.5 F 09/20/18 12:06 Pulse 115 H 09/20/18 12:06 Resp 24 09/20/18 12:06 BP 145/80 09/20/18 12:06 Pulse Ox 100 09/20/18 12:06 - Medical History PMH: Asthma, CHF, COPD, Diabetes, HTN, Hypercholesterolemia, Pneumonia, Pulmonary Embolism Denies: HIV, Chronic Kidney Disease - Family History Family History: States: Unknown Family Hx, VA, Diabetes - Immunization History Hx Tetanus Toxoid Vaccination: No Hx Influenza Vaccination: No Hx Pneumococcal Vaccination: No - Home Medications Home Medications: Ambulatory Orders Medication Instructions Recorded Albuterol HFA [Ventolin HFA 90 2 puff INH Q4 PRN 08/10/18 mcg/actuation (8 g)] Fluticasone/Salmeterol 500/50 1 puff IH Q12 puff 08/12/18 [Advair Diskus 500/50] metFORMIN [glucOPHAGE] 500 mg PO BIDWM tab 08/12/18 - Allergies Allergies/Adverse Reactions: Allergies Allergy/AdvReac Type Severity Reaction Status Date / Time No Known Allergies Allergy Verified 09/20/18 12:06 Physical Exam - Reviewed Nursing Documentation Reviewed: Yes Vital Signs Reviewed: Yes - Physical Exam Appears: Positive for: Non-toxic Head Exam: Positive for: ATRAUMATIC, NORMOCEPHALIC Skin: Positive for: Normal Color, Warm, Dry Cardiovascular/Chest: Positive for: Tachycardia (regular rhythm) Respiratory: Positive for: Wheezing (bilaterally), Respiratory Distress (moderate) Extremity: Positive for: Other (chronic skin changes ). Negative for: Swelling - Laboratory Results Result Diagrams: 09/20/18 14:30 09/20/18 13:00 - ECG O2 Sat by Pulse Oximetry: 100 (RA) Pulse Ox Interpretation: Normal - Progress Re-evaluation Time: 15:00 Condition: Unchanged Medical Decision Making Medical Decision Making: Time: 1308 Impression: Chest pain and dyspnea --Differential diagnosis includes but is not limited to COPD exacerbation, bronchitis, PNA Plan: --EKG --CMP --ProBNP --Troponin I --CBC with differential --PTT --PT --Chest xray portable --Albuterol 3 ml INH x2 --Peak flow pre/post tx x2 --urinalysis --blood culture --methylPREDNISolone 125 mg IVP Time: 1351 Chest xray FINDINGS: LUNGS: The lungs are well inflated. No focal consolidation in the right lung. There is discoid atelectasis in the left lung base. PLEURA: No pleural effusions or pneumothorax. CARDIOVASCULAR: There is mild cardiomegaly. There are aortic atherosclerotic calcifications present. OSSEOUS STRUCTURES: Within normal limits for the patient's age. VISUALIZED UPPER ABDOMEN: Normal. OTHER FINDINGS: None. IMPRESSION: Discoid atelectasis in the left lung base. No lobar pneumonia. Scribe Attestation: Documented by Luisito Benjamin, acting as a scribe for Ana Baxter MD. Provider Scribe Attestation: All medical record entries made by the Scribe were at my direction and personally dictated by me. I have reviewed the chart and agree that the record accurately reflects my personal performance of the history, physical exam, medical decision making, and the department course for this patient. I have also personally directed, reviewed, and agree with the discharge instructions and disposition. Disposition - Clinical Impression Clinical Impression: COPD exacerbation, Chest pain - Patient ED Disposition Is Patient to be Admitted: Yes - Disposition Disposition Time: 15:05 Condition: STABLE Forms: [employer] (Kiswahili) - Pt Status Changed To: Hospital Disposition Of: Inpatient - Admit Certification Admit to Inpatient:: After my assessment, the patient will require hospitalization for at least two midnights. This is because of the severity of symptoms shown, intensity of services needed, and/or the medical risk in this patient being treated as an outpatient. - POA Present On Arrival: None
[2018-09-20 13:52] LABS: VENOUS BLOOD GAS BASE EXCESS 1.8 mmol/L (0.0-2.0); VENOUS BLOOD GAS PCO2 48 mmHg (40-60); VENOUS BLOOD GAS PO2 29 mm/Hg (30-55); VENOUS BLOOD PH 7.37 (7.32-7.43)
--- NOTE | 2018-09-20 13:54 | RAD ---
Date of service: 09/20/2018 HISTORY: SOB COMPARISON: 08/10/2018. FINDINGS: LUNGS: The lungs are well inflated. No focal consolidation in the right lung. There is discoid atelectasis in the left lung base. PLEURA: No pleural effusions or pneumothorax. CARDIOVASCULAR: There is mild cardiomegaly. There are aortic atherosclerotic calcifications present. OSSEOUS STRUCTURES: Within normal limits for the patient's age. VISUALIZED UPPER ABDOMEN: Normal. OTHER FINDINGS: None. IMPRESSION: Discoid atelectasis in the left lung base. No lobar pneumonia.
[2018-09-20 14:12] LABS: INR 1.3; PARTIAL THROMBOPLASTIN TIME 31.1 Seconds (25.6-37.1); PROTHROMBIN TIME 15.2 Seconds (9.8-13.1)
[2018-09-20 14:14] LABS: ALB/GLOB RATIO 0.8 (1.0-2.1); ALBUMIN 2.9 g/dL (3.5-5.0); ALT/SGPT 19 U/L (21-72); AST/SGOT 17 U/L (17-59); B-TYPE NATRIURETIC PEPTIDE 236 pg/ml (0-900); BLOOD UREA NITROGEN 11 mg/dl (9-20); CALCIUM 8.3 mg/dL (8.4-10.2); GFR NON-AFRICAN AMERICAN > 60
[2018-09-20 15:01] LABS: BASO # 0.1 K/uL (0.0-0.2); BASO % 0.7 % (0.0-2.0); EOS # 0.1 K/uL (0.0-0.7); EOS % 1.1 % (0.0-4.0); HEMOGLOBIN 8.2 g/dL (12.0-18.0); LYMPH # 2.9 K/uL (1.0-4.3); LYMPH % 30.2 % (20.0-40.0); MEAN CELL VOLUME 72.3 fl (80.0-94.0); MEAN CORPUSCULAR HGB CONC 31.8 g/dL (33.0-37.0); MEAN PLATELET VOLUME 7.8 fl (7.2-11.7); MONO % 9.9 % (0.0-10.0); NEUT # 5.7 K/uL (1.8-7.0); NEUT % 58.1 % (50.0-75.0); RBC 3.55 Mil/uL (4.40-5.90); RED CELL DISTRIBUTION WIDTH 19.7 % (11.5-14.5); WHITE BLOOD COUNT 9.7 K/uL (4.8-10.8)
--- NOTE | 2018-09-20 15:51 | CP.PCM.HP ---
<Sanjiv Haynes - Last Filed: 09/20/18 15:48> History of Present Illness - History of Present Illness History of Present Illness: CC: Cough and SOB x 1day HPI: 67 y/o male, well know to our service, with a PMHx of COPD, NIDDM2, HTN, PE w IVC filter (not on AC) and psoriasis presented to [facility] for evaluation of worsening cough and SOB. He reports symptoms started today at 2pm without inciting event while he was watching TV. Reports worsening cough, increased sputum, and yellow sputum production and assoicated sore throat. Denies any prior URI or illness. No sick contacts. Episodic chest pain with coughing. Denies fever/chills, headaches, changes in vision, hemoptysis, CP/Palpitations, N/V/D/C, urinary symptoms. ROS: 12 points reviewed, found to be negative unless otherwise noted in HPI. PMD: None PMH: COPD, NIDDM2, HTN, PE s/p IVC filter-2014 (not on anticoagulation), hx of retroperitoneal hematoma (2014) and psoriasis Medications: none Allergies: NKDA PSH: IVC filter Fam: denies SOC: former smoker (30 pack years, quit 1 yr ago), former Etoh abuse (last drink in 04/2017), denies drug use; is homeless, sometimes sleeps in his friends house Present on Admission - Present on Admission Any Indicators Present on Admission: Yes History of DVT/PE: Yes History of Uncontrolled Diabetes: No Urinary Catheter: No Decubitus Ulcer Present: No Past Patient History - Infectious Disease Hx of Infectious Diseases: None - Tetanus Immunizations Tetanus Immunization: Unknown - Past Medical History & Family History Past Medical History?: Yes - Past Social History Smoking Status: Light Smoker < 10 Cigarettes Daily - CARDIAC Hx Congestive Heart Failure: Yes Hx Hypercholesterolemia: Yes Hx Hypertension: Yes - PULMONARY Hx Asthma: Yes Hx Chronic Obstructive Pulmonary Disease (COPD): Yes Hx Pneumonia: Yes Hx Pulmonary Embolism: Yes - NEUROLOGICAL Hx Neurological Disorder: No - HEENT Hx HEENT Problems: No - RENAL Hx Chronic Kidney Disease: No - ENDOCRINE/METABOLIC Hx Endocrine Disorders: Yes Hx Diabetes Mellitus Type 2: Yes - HEMATOLOGICAL/ONCOLOGICAL Hx Human Immunodeficiency Virus (HIV): No - INTEGUMENTARY Hx Dermatological Problems: Yes Hx Psoriasis: Yes - MUSCULOSKELETAL/RHEUMATOLOGICAL Hx Musculoskeletal Disorders: No Hx Falls: No - GASTROINTESTINAL Hx Gastrointestinal Disorders: Yes Other/Comment: GI bleeding - GENITOURINARY/GYNECOLOGICAL Hx Genitourinary Disorders: No - PSYCHIATRIC Hx Psychophysiologic Disorder: No Hx Substance Use: No - SURGICAL HISTORY Hx Surgeries: Yes Other/Comment: IVC Filter - ANESTHESIA Hx Anesthesia: Yes Hx Anesthesia Reactions: No Hx Malignant Hyperthermia: No Meds Allergies/Adverse Reactions: Allergies Allergy/AdvReac Type Severity Reaction Status Date / Time No Known Allergies Allergy Verified 09/20/18 12:06 Physical Exam - Constitutional Appears: Non-toxic, No Acute Distress, Unkempt - Head Exam Head Exam: ATRAUMATIC - Eye Exam Eye Exam: EOMI, PERRL - ENT Exam ENT Exam: Mucous Membranes Moist. absent: Normal Oropharynx Additional comments: posterior pharyngeal edema, scant mucous drainage, posterior cobblestoning - Neck Exam Neck exam: Positive for: Full Rom. Negative for: Lymphadenopathy - Respiratory Exam Respiratory Exam: Decreased Breath Sounds, Clear to Auscultation Bilateral, Rhonchi, Wheezes, NORMAL BREATHING PATTERN. absent: Accessory Muscle Use, Chest Wall Tenderness, Prolonged Expiratory Phase, Rales, Respiratory Distress - Cardiovascular Exam Cardiovascular Exam: Tachycardia, REGULAR RHYTHM, RRR, +S1, +S2. absent: Irregular Rhythm, JVD, Rubs, Systolic Murmur - GI/Abdominal Exam GI & Abdominal Exam: Normal Bowel Sounds, Soft. absent: Distended, Firm, Kia ound, Rigid, Tenderness - Extremities Exam Extremities exam: Positive for: pedal pulses present. Negative for: calf tenderness, pedal edema, tenderness Additional comments: diffuse hyperkeratotic psoriatic lesions in LE - Back Exam Back exam: FULL ROM - Neurological Exam Neurological exam: Alert, CN II-XII Intact, Oriented x3 - Skin Skin Exam: Dry, Warm Additional comments: diffuse psoriatic lesions throughout Results - Vital Signs Recent Vital Signs: Last Vital Signs Temp 98.5 F 09/20/18 12:06 Pulse 115 H 09/20/18 12:06 Resp 24 09/20/18 12:06 BP 145/80 09/20/18 12:06 Pulse Ox 100 09/20/18 15:27 - Labs Result Diagrams: 09/20/18 14:30 09/20/18 13:00 Labs: Laboratory Results - last 24 hr 09/20/18 09/20/18 09/20/18 13:00 13:00 13:43 WBC RBC Hgb Hct MCV MCH MCHC RDW Plt Count MPV Neut % (Auto) Lymph % (Auto) Dane % (Auto) Eos % (Auto) Baso % (Auto) Neut # (Auto) Lymph # (Auto) Dane # (Auto) Eos # (Auto) Baso # (Auto) PT 15.2 H INR 1.3 APTT 31.1 pO2 29 L VBG pH 7.37 VBG pCO2 48 VBG HCO3 25.3 VBG Total CO2 29.2 H VBG O2 Sat (Calc) 57.9 VBG Base Excess 1.8 VBG Potassium 4.0 Glucose 94 Lactate 1.9 FiO2 21.0 Sodium 137 137.0 Potassium 4.1 Chloride 104 104.0 Carbon Dioxide 24 Anion Gap 13 BUN 11 Creatinine 0.9 Est GFR ( Amer) > 60 Est GFR (Non-Af Amer) > 60 Random Glucose 92 Calcium 8.3 L Total Bilirubin 0.5 AST 17 D ALT 19 L D Alkaline Phosphatase 66 Troponin I < 0.0120 NT-Pro-B Natriuret Pep 236 Total Protein 6.7 Albumin 2.9 L D Globulin 3.8 Albumin/Globulin Ratio 0.8 L Venous Blood Potassium 4.0 09/20/18 14:30 WBC 9.7 RBC 3.55 L Hgb 8.2 L Hct 25.7 L MCV 72.3 L D MCH 23.0 L MCHC 31.8 L RDW 19.7 H Plt Count 264 MPV 7.8 Neut % (Auto) 58.1 Lymph % (Auto) 30.2 Dane % (Auto) 9.9 Eos % (Auto) 1.1 Baso % (Auto) 0.7 Neut # (Auto) 5.7 Lymph # (Auto) 2.9 Dane # (Auto) 1.0 H Eos # (Auto) 0.1 Baso # (Auto) 0.1 PT INR APTT pO2 VBG pH VBG pCO2 VBG HCO3 VBG Total CO2 VBG O2 Sat (Calc) VBG Base Excess VBG Potassium Glucose Lactate FiO2 Sodium Potassium Chloride Carbon Dioxide Anion Gap BUN Creatinine Est GFR ( Amer) Est GFR (Non-Af Amer) Random Glucose Calcium Total Bilirubin AST ALT Alkaline Phosphatase Troponin I NT-Pro-B Natriuret Pep Total Protein Albumin Globulin Albumin/Globulin Ratio Venous Blood Potassium Assessment & Plan - Assessment and Plan (Free Text) Assessment: 67 y/o male with a PMHx of COPD, HTN, NIDDM2, PE (w IVC filter) and Psoriasis admitted for Acute COPD exacerbation. Plan: 1) Acute COPD Exacerbation -afebrile -normal WBC -EKG: sinus tachycardia, normal QTc, no acute ST changes -Duo-neb Q4H standing -Azithromycin 500mg QD -solu-medrol 60mg Q12H -Resume Advair -supplemental O2 via NC PRN -CXR: no lobar pneumonia -repeat AM labs 2) Microcytic Anemia of Unknown Etiology -Hb down to 8.2 -f/u Iron studies -occult blood -repeat CBC 3) Acute Pharyngitis -Azithromycin 500mg QD -NSAIDS -monitor -f/u strep test 4) NIDDM2 -most recent HBA1C 7.0 (06/2018) -Resume metformin 500mg BID -Lispo Correction scale, medium protocol -accuchecks ACHS 5) HTN -controlled -monitor BP 6) Hx of PE with IVC Filter -Lovenox 40mg SC QD 7) Prophylaxis -lovenox 40mg SC QD 8) Diet -heart healthy/moderate carbohydrate diet 9) Code status -full code <Lida Fernandes - Last Filed: 09/20/18 18:56> Results - Vital Signs Recent Vital Signs: Last Vital Signs Temp 97.8 F 09/20/18 17:53 Pulse 114 H 09/20/18 17:53 Resp 20 09/20/18 17:53 BP 127/64 09/20/18 17:53 Pulse Ox 100 09/20/18 17:53 - Labs Result Diagrams: 09/20/18 14:30 09/20/18 13:00 Labs: Laboratory Results - last 24 hr 09/20/18 09/20/18 09/20/18 13:00 13:00 13:43 WBC RBC Hgb Hct MCV MCH MCHC RDW Plt Count MPV Neut % (Auto) Lymph % (Auto) Dane % (Auto) Eos % (Auto) Baso % (Auto) Neut # (Auto) Lymph # (Auto) Dane # (Auto) Eos # (Auto) Baso # (Auto) PT 15.2 H INR 1.3 APTT 31.1 pO2 29 L VBG pH 7.37 VBG pCO2 48 VBG HCO3 25.3 VBG Total CO2 29.2 H VBG O2 Sat (Calc) 57.9 VBG Base Excess 1.8 VBG Potassium 4.0 Glucose 94 Lactate 1.9 FiO2 21.0 Sodium 137 137.0 Potassium 4.1 Chloride 104 104.0 Carbon Dioxide 24 Anion Gap 13 BUN 11 Creatinine 0.9 Est GFR ( Amer) > 60 Est GFR (Non-Af Amer) > 60 POC Glucose (mg/dL) Random Glucose 92 Calcium 8.3 L Ferritin Total Bilirubin 0.5 AST 17 D ALT 19 L D Alkaline Phosphatase 66 Troponin I < 0.0120 NT-Pro-B Natriuret Pep 236 Total Protein 6.7 Albumin 2.9 L D Globulin 3.8 Albumin/Globulin Ratio 0.8 L Venous Blood Potassium 4.0 Grp A Beta Strep Ag 09/20/18 09/20/18 09/20/18 14:30 16:27 16:30 WBC 9.7 RBC 3.55 L Hgb 8.2 L Hct 25.7 L MCV 72.3 L D MCH 23.0 L MCHC 31.8 L RDW 19.7 H Plt Count 264 MPV 7.8 Neut % (Auto) 58.1 Lymph % (Auto) 30.2 Dane % (Auto) 9.9 Eos % (Auto) 1.1 Baso % (Auto) 0.7 Neut # (Auto) 5.7 Lymph # (Auto) 2.9 Dane # (Auto) 1.0 H Eos # (Auto) 0.1 Baso # (Auto) 0.1 PT INR APTT pO2 VBG pH VBG pCO2 VBG HCO3 VBG Total CO2 VBG O2 Sat (Calc) VBG Base Excess VBG Potassium Glucose Lactate FiO2 Sodium Potassium Chloride Carbon Dioxide Anion Gap BUN Creatinine Est GFR ( Amer) Est GFR (Non-Af Amer) POC Glucose (mg/dL) 225 H Random Glucose Calcium Ferritin Total Bilirubin AST ALT Alkaline Phosphatase Troponin I NT-Pro-B Natriuret Pep Total Protein Albumin Globulin Albumin/Globulin Ratio Venous Blood Potassium Grp A Beta Strep Ag Negative 09/20/18 17:00 WBC RBC Hgb Hct MCV MCH MCHC RDW Plt Count MPV Neut % (Auto) Lymph % (Auto) Dane % (Auto) Eos % (Auto) Baso % (Auto) Neut # (Auto) Lymph # (Auto) Dane # (Auto) Eos # (Auto) Baso # (Auto) PT INR APTT pO2 VBG pH VBG pCO2 VBG HCO3 VBG Total CO2 VBG O2 Sat (Calc) VBG Base Excess VBG Potassium Glucose Lactate FiO2 Sodium Potassium Chloride Carbon Dioxide Anion Gap BUN Creatinine Est GFR ( Amer) Est GFR (Non-Af Amer) POC Glucose (mg/dL) Random Glucose Calcium Ferritin 78.0 Total Bilirubin AST ALT Alkaline Phosphatase Troponin I NT-Pro-B Natriuret Pep Total Protein Albumin Globulin Albumin/Globulin Ratio Venous Blood Potassium Grp A Beta Strep Ag Attending/Attestation - Attestation I have personally seen and examined this patient.: Yes I have fully participated in the care of the patient.: Yes I have reviewed all pertinent clinical information: Yes Notes (Text): 09/20/18 18:56 agree with findings and plan as above
[2018-09-20] MEDS ORDERED: methylPREDNISolone 60 MG in Sodium Chloride 0.9% 50 ML IV SCH (16:00)
[2018-09-20] MEDS ORDERED: Glucagon Recombinant 1 mg Inj IM PRN (16:05)
[2018-09-20] MEDS ORDERED: Dextrose 50% SYRINGE Inj (50 ml) IV PRN (16:05)
[2018-09-20] MEDS ORDERED: Azithromycin 500 MG IV IVPB ONE (16:24)
[2018-09-20] MEDS: Azithromycin 500 MG in Sodium Chloride 0.9% 250 ML IVPB SCH (16:25)
[2018-09-20] MEDS: Albuterol-Ipratrop 3 mg / 0.5 (3 ml) UD INH SCH ×2 (16:26→19:43)
[2018-09-20] MEDS: Insulin Lispro (humaLOG) 100 Units/ml Inj SC SCH ×2 (16:49→22:17)
--- NOTE | 2018-09-20 21:22 | CARD ---
APPROVED REPORT Date of service: 09/20/2018 EKG Measurement Heart [id number] <Conclusion> Sinus tachycardia CPT dated 08/10/18 no change Otherwise normal ECG
[2018-09-21] MEDS: Albuterol-Ipratrop 3 mg / 0.5 (3 ml) UD INH SCH ×5 (00:02→15:30)
[2018-09-21 06:00] LABS: HEMOGLOBIN 8.7 g/dL (12.0-18.0); MEAN CELL VOLUME 72.8 fl (80.0-94.0); MEAN CORPUSCULAR HEMOGLOBIN 23.3 pg (27.0-31.0); RBC 3.72 Mil/uL (4.40-5.90); RED CELL DISTRIBUTION WIDTH 19.3 % (11.5-14.5)
[2018-09-21 06:17] LABS: ALB/GLOB RATIO 0.9 (1.0-2.1); ALBUMIN 3.2 g/dL (3.5-5.0); ALT/SGPT 20 U/L (21-72); AST/SGOT 16 U/L (17-59); BLOOD UREA NITROGEN 16 mg/dl (9-20); CALCIUM 8.5 mg/dL (8.4-10.2); GFR NON-AFRICAN AMERICAN > 60
[2018-09-21] MEDS: Insulin Lispro (humaLOG) 100 Units/ml Inj SC SCH ×3 (06:51→16:23)
[2018-09-21] MEDS ORDERED: Enoxaparin 40 mg Syringe SC SCH (09:00)
[2018-09-21] MEDS: Azithromycin 500 MG in Sodium Chloride 0.9% 250 ML IVPB SCH (09:02)
[2018-09-21] MEDS ORDERED: Ammonium Lactate 12% Cream (140 g) TOP SCH (09:15)
--- NOTE | 2018-09-21 11:07 | CP.PCM.PN ---
<TruongLexi - Last Filed: 09/21/18 11:23> Subjective - Date & Time of Evaluation Date of Evaluation: 09/21/18 Time of Evaluation: 11:01 - Subjective Subjective: CC: Cough and SOB x 2day 67 y/o male, well know to our service, with a PMHx of COPD, NIDDM2, HTN, PE w IVC filter (not on AC) and psoriasis seen and evaluated at bedside evaluation of worsening cough and SOB.Denies pain. Admits to dry cough without production of phlegm. States his skin is very skin and would like some lotion for it. Denies fever/chills, headaches, changes in vision, hemoptysis, CP/Palpitations, N/V/D/C, urinary symptoms. Objective - Vital Signs/Intake and Output Vital Signs (last 24 hours): Temp Pulse Resp BP Pulse Ox 97.9 F 114 H 18 121/62 96 09/21/18 08:14 09/21/18 08:14 09/21/18 08:14 09/21/18 08:14 09/21/18 08:14 - Medications Medications: Current Medications Albuterol/Ipratropium (Duoneb 3 Mg/0.5 Mg (3 Ml) Ud) 3 ml INH RQ4 JEFFREY Last Admin: 09/21/18 07:42 Dose: 3 ml Dextrose (Dextrose 50% Inj) 0 ml IV STAT PRN; Protocol PRN Reason: Hypoglycemia Protocol Dextrose (Glutose 15) 0 gm PO ONCE PRN; Protocol PRN Reason: Hypoglycemia Protocol Enoxaparin Sodium (Lovenox) 40 mg SC DAILY JEFFREY; Protocol Last Admin: 09/21/18 09:03 Dose: 40 mg Glucagon (Glucagen Diagnostic Kit) 0 mg IM STAT PRN; Protocol PRN Reason: Hypoglycemia Protocol Azithromycin 500 mg/ Sodium (Chloride) 250 mls @ 250 mls/hr IVPB DAILY JEFFREY; Protocol Last Admin: 09/21/18 09:02 Dose: 250 mls/hr Insulin Human Lispro (Humalog) 0 units SC ACHS JEFFREY; Protocol Last Admin: 09/21/18 06:51 Dose: 4 units Lactic Acid (Lac-Hydrin 12% Lotion (225 G)) 1 applic TOP TID JEFFREY Methylprednisolone (Solu-Medrol) 60 mg IV Q12@0900,2100 JEFFREY Last Admin: 09/21/18 09:03 Dose: 60 mg - Labs Labs: 09/21/18 05:30 09/21/18 05:30 PT 15.2 Seconds (9.8-13.1) H 09/20/18 13:00 INR 1.3 09/20/18 13:00 APTT 31.1 Seconds (25.6-37.1) 09/20/18 13:00 - Constitutional Appears: Well, Non-toxic, No Acute Distress - Head Exam Head Exam: ATRAUMATIC, NORMOCEPHALIC - Eye Exam Eye Exam: Normal appearance Pupil Exam: NORMAL ACCOMODATION Additional comments: posterior pharyngeal edema, scant mucous drainage, posterior cobblestoning - ENT Exam ENT Exam: Mucous Membranes Moist - Respiratory Exam Respiratory Exam: Decreased Breath Sounds, Rales, Rhonchi, Wheezes, NORMAL BREATHING PATTERN. absent: Accessory Muscle Use - Cardiovascular Exam Cardiovascular Exam: Tachycardia, REGULAR RHYTHM, +S1, +S2. absent: Irregular Rhythm, JVD, Rubs - GI/Abdominal Exam GI & Abdominal Exam: Soft, Normal Bowel Sounds - Extremities Exam Extremities Exam: Normal Capillary Refill - Neurological Exam Neurological Exam: Alert, Awake - Skin Additional comments: diffuse psoriatic lesions in b/l upper and lower extremity Assessment and Plan - Assessment and Plan (Free Text) Assessment: 67 y/o male with a PMHx of COPD, HTN, NIDDM2, PE (w IVC filter) and Psoriasis admitted for Acute COPD exacerbation. Plan: 1) Acute COPD Exacerbation -afebrile -normal WBC -EKG: sinus tachycardia, normal QTc, no acute ST changes -Duo-neb Q4H standing -Azithromycin 500mg QD -solu-medrol 60mg Q12H -Resume Advair -supplemental O2 via NC PRN; 96% sat on room air -CXR: no lobar pneumonia 2) Microcytic Anemia of Unknown Etiology -Hb down to 8.7 -occult blood 3) Acute Pharyngitis -Azithromycin 500mg QD -NSAIDS -monitor -strep test; negative 4) NIDDM2 -most recent HBA1C 7.0 (06/2018) -Resume metformin 500mg BID -Lispo Correction scale, medium protocol -accuchecks ACHS 5) HTN -controlled -monitor BP 6) Hx of PE with IVC Filter -Lovenox 40mg SC QD 7) Prophylaxis -lovenox 40mg SC QD 8) Diet -heart healthy/moderate carbohydrate diet 9) Code status -full code <Muriel Lamas - Last Filed: 09/21/18 18:25> Objective - Vital Signs/Intake and Output Vital Signs (last 24 hours): Temp Pulse Resp BP Pulse Ox 97.8 F 113 H 20 130/64 97 09/21/18 15:39 09/21/18 15:39 09/21/18 15:39 09/21/18 15:39 09/21/18 15:39 - Labs Labs: 09/21/18 05:30 09/21/18 05:30 PT 15.2 Seconds (9.8-13.1) H 09/20/18 13:00 INR 1.3 09/20/18 13:00 APTT 31.1 Seconds (25.6-37.1) 09/20/18 13:00 Attending/Attestation - Attestation I have personally seen and examined this patient.: Yes I have fully participated in the care of the patient.: Yes I have reviewed all pertinent clinical information, including history, physical exam and plan: Yes
--- NOTE | 2018-09-21 13:11 | CP.PCM.DIS ---
<Lexi Truong - Last Filed: 09/21/18 13:09> Provider - Provider Date of Admission: 09/20/18 15:22 Attending physician: Lida Fenrandes DO Time Spent in preparation of Discharge (in minutes): 30 Diagnosis - Discharge Diagnosis (1) COPD exacerbation Status: Acute Hospital Course - Lab Results Lab Results: Micro Results 09/20/18 16:30 Throat Group A Strep Throat Culture - Final NO BETA STREP GROUP A ISOLATED. Most Recent Lab Values WBC 5.0 K/uL (4.8-10.8) 09/21/18 05:30 RBC 3.72 Mil/uL (4.40-5.90) L 09/21/18 05:30 Hgb 8.7 g/dL (12.0-18.0) L 09/21/18 05:30 Hct 27.1 % (35.0-51.0) L 09/21/18 05:30 MCV 72.8 fl (80.0-94.0) L 09/21/18 05:30 MCH 23.3 pg (27.0-31.0) L 09/21/18 05:30 MCHC 32.0 g/dL (33.0-37.0) L 09/21/18 05:30 RDW 19.3 % (11.5-14.5) H 09/21/18 05:30 Plt Count 267 K/uL (130-400) 09/21/18 05:30 MPV 7.8 fl (7.2-11.7) 09/20/18 14:30 Neut % (Auto) 58.1 % (50.0-75.0) 09/20/18 14:30 Lymph % (Auto) 30.2 % (20.0-40.0) 09/20/18 14:30 Dolores % (Auto) 9.9 % (0.0-10.0) 09/20/18 14:30 Eos % (Auto) 1.1 % (0.0-4.0) 09/20/18 14:30 Baso % (Auto) 0.7 % (0.0-2.0) 09/20/18 14:30 Neut # (Auto) 5.7 K/uL (1.8-7.0) 09/20/18 14:30 Lymph # (Auto) 2.9 K/uL (1.0-4.3) 09/20/18 14:30 Dolores # (Auto) 1.0 K/uL (0.0-0.8) H 09/20/18 14:30 Eos # (Auto) 0.1 K/uL (0.0-0.7) 09/20/18 14:30 Baso # (Auto) 0.1 K/uL (0.0-0.2) 09/20/18 14:30 PT 15.2 Seconds (9.8-13.1) H 09/20/18 13:00 INR 1.3 09/20/18 13:00 APTT 31.1 Seconds (25.6-37.1) 09/20/18 13:00 pO2 29 mm/Hg (30-55) L 09/20/18 13:43 VBG pH 7.37 (7.32-7.43) 09/20/18 13:43 VBG pCO2 48 mmHg (40-60) 09/20/18 13:43 VBG HCO3 25.3 mmol/L 09/20/18 13:43 VBG Total CO2 29.2 mmol/L (22-28) H 09/20/18 13:43 VBG O2 Sat (Calc) 57.9 % (40-65) 09/20/18 13:43 VBG Base Excess 1.8 mmol/L (0.0-2.0) 09/20/18 13:43 VBG Potassium 4.0 mmol/L (3.6-5.2) 09/20/18 13:43 Sodium 137.0 mmol/L (132-148) 09/20/18 13:43 Chloride 104.0 mmol/L (98-107) 09/20/18 13:43 Glucose 94 mg/dL (75-110) 09/20/18 13:43 Lactate 1.9 mmol/L (0.7-2.1) 09/20/18 13:43 FiO2 21.0 % 09/20/18 13:43 Sodium 140 mmol/l (132-148) 09/21/18 05:30 Potassium 4.5 MMOL/L (3.6-5.0) 09/21/18 05:30 Chloride 101 mmol/L (98-107) 09/21/18 05:30 Carbon Dioxide 26 mmol/L (22-30) 09/21/18 05:30 Anion Gap 18 (10-20) 09/21/18 05:30 BUN 16 mg/dl (9-20) 09/21/18 05:30 Creatinine 1.0 mg/dl (0.8-1.5) 09/21/18 05:30 Est GFR ( Amer) > 60 09/21/18 05:30 Est GFR (Non-Af Amer) > 60 09/21/18 05:30 POC Glucose (mg/dL) 156 mg/dL (65-110) H 09/21/18 11:14 Random Glucose 279 mg/dL (75-110) H 09/21/18 05:30 Calcium 8.5 mg/dL (8.4-10.2) 09/21/18 05:30 Transferrin 186.98 mg/dL (206-381) L 09/20/18 17:00 Ferritin 78.0 ng/Ml (17.9-464) 09/20/18 17:00 Total Bilirubin 0.2 mg/dl (0.2-1.3) 09/21/18 05:30 AST 16 U/L (17-59) L 09/21/18 05:30 ALT 20 U/L (21-72) L 09/21/18 05:30 Alkaline Phosphatase 66 U/L (38-126) 09/21/18 05:30 Troponin I < 0.0120 ng/mL (0.00-0.120) 09/20/18 13:00 NT-Pro-B Natriuret Pep 236 pg/ml (0-900) 09/20/18 13:00 Total Protein 6.6 G/DL (6.3-8.2) 09/21/18 05:30 Albumin 3.2 g/dL (3.5-5.0) L 09/21/18 05:30 Globulin 3.5 gm/dL (2.2-3.9) 09/21/18 05:30 Albumin/Globulin Ratio 0.9 (1.0-2.1) L 09/21/18 05:30 Venous Blood Potassium 4.0 mmol/L (3.6-5.2) 09/20/18 13:43 Grp A Beta Strep Ag Negative (NEGATIVE) 09/20/18 16:30 - Hospital Course Hospital Course: 67 y/o male with a PMHx of COPD, HTN, NIDDM2, PE (w IVC filter) and Psoriasis admitted for Acute COPD exacerbation. CXR showed no lobar pneumonia. Patient treated with high dose Solumedrol IV 60 mg IV Q8 , Duonebs, O2 vi aNC and Azithromycin empirically. Patient advised to follow up with PCP as outpatient Patient clinically improved, vitally stable, normal WBC. - Date & Time of H&P Date of H&P: 09/21/18 Time of H&P: 13:11 Discharge Exam - Head Exam Head Exam: ATRAUMATIC, NORMOCEPHALIC - Eye Exam Eye Exam: Normal appearance Pupil Exam: NORMAL ACCOMODATION - ENT Exam ENT Exam: Mucous Membranes Moist - Respiratory Exam Respiratory Exam: NORMAL BREATHING PATTERN - Cardiovascular Exam Cardiovascular Exam: REGULAR RHYTHM, +S1, +S2 - GI/Abdominal Exam GI & Abdominal Exam: Normal Bowel Sounds - Neurological Exam Neurological exam: Alert - Psychiatric Exam Psychiatric exam: Normal Affect Discharge Plan - Discharge Medications Prescriptions: Methylprednisolone [Medrol Dose Pack (21 tabs)] 4 mg PO ASDIR #21 mg - Follow Up Plan Condition: FAIR Instructions: Chest Pain (DC), Exacerbation of COPD (DC) Additional Instructions: follow up with primary MD in 1 week Referrals: [facility] [Outside] <Muriel Lamas - Last Filed: 09/21/18 16:30> Provider - Provider Date of Admission: 09/20/18 15:22 Attending physician: Ldia Fernandes DO Hospital Course - Lab Results Lab Results: Micro Results 09/20/18 13:30 Blood-Venous Blood Culture - Preliminary NO GROWTH AFTER 24 HOURS 09/20/18 13:00 Blood-Venous Blood Culture - Preliminary NO GROWTH AFTER 24 HOURS 09/20/18 16:30 Throat Group A Strep Throat Culture - Final NO BETA STREP GROUP A ISOLATED. Most Recent Lab Values WBC 5.0 K/uL (4.8-10.8) 09/21/18 05:30 RBC 3.72 Mil/uL (4.40-5.90) L 09/21/18 05:30 Hgb 8.7 g/dL (12.0-18.0) L 09/21/18 05:30 Hct 27.1 % (35.0-51.0) L 09/21/18 05:30 MCV 72.8 fl (80.0-94.0) L 09/21/18 05:30 MCH 23.3 pg (27.0-31.0) L 09/21/18 05:30 MCHC 32.0 g/dL (33.0-37.0) L 09/21/18 05:30 RDW 19.3 % (11.5-14.5) H 09/21/18 05:30 Plt Count 267 K/uL (130-400) 09/21/18 05:30 MPV 7.8 fl (7.2-11.7) 09/20/18 14:30 Neut % (Auto) 58.1 % (50.0-75.0) 09/20/18 14:30 Lymph % (Auto) 30.2 % (20.0-40.0) 09/20/18 14:30 Dolores % (Auto) 9.9 % (0.0-10.0) 09/20/18 14:30 Eos % (Auto) 1.1 % (0.0-4.0) 09/20/18 14:30 Baso % (Auto) 0.7 % (0.0-2.0) 09/20/18 14:30 Neut # (Auto) 5.7 K/uL (1.8-7.0) 09/20/18 14:30 Lymph # (Auto) 2.9 K/uL (1.0-4.3) 09/20/18 14:30 Dolores # (Auto) 1.0 K/uL (0.0-0.8) H 09/20/18 14:30 Eos # (Auto) 0.1 K/uL (0.0-0.7) 09/20/18 14:30 Baso # (Auto) 0.1 K/uL (0.0-0.2) 09/20/18 14:30 PT 15.2 Seconds (9.8-13.1) H 09/20/18 13:00 INR 1.3 09/20/18 13:00 APTT 31.1 Seconds (25.6-37.1) 09/20/18 13:00 pO2 29 mm/Hg (30-55) L 09/20/18 13:43 VBG pH 7.37 (7.32-7.43) 09/20/18 13:43 VBG pCO2 48 mmHg (40-60) 09/20/18 13:43 VBG HCO3 25.3 mmol/L 09/20/18 13:43 VBG Total CO2 29.2 mmol/L (22-28) H 09/20/18 13:43 VBG O2 Sat (Calc) 57.9 % (40-65) 09/20/18 13:43 VBG Base Excess 1.8 mmol/L (0.0-2.0) 09/20/18 13:43 VBG Potassium 4.0 mmol/L (3.6-5.2) 09/20/18 13:43 Sodium 137.0 mmol/L (132-148) 09/20/18 13:43 Chloride 104.0 mmol/L (98-107) 09/20/18 13:43 Glucose 94 mg/dL (75-110) 09/20/18 13:43 Lactate 1.9 mmol/L (0.7-2.1) 09/20/18 13:43 FiO2 21.0 % 09/20/18 13:43 Sodium 140 mmol/l (132-148) 09/21/18 05:30 Potassium 4.5 MMOL/L (3.6-5.0) 09/21/18 05:30 Chloride 101 mmol/L (98-107) 09/21/18 05:30 Carbon Dioxide 26 mmol/L (22-30) 09/21/18 05:30 Anion Gap 18 (10-20) 09/21/18 05:30 BUN 16 mg/dl (9-20) 09/21/18 05:30 Creatinine 1.0 mg/dl (0.8-1.5) 09/21/18 05:30 Est GFR ( Amer) > 60 09/21/18 05:30 Est GFR (Non-Af Amer) > 60 09/21/18 05:30 POC Glucose (mg/dL) 156 mg/dL (65-110) H 09/21/18 11:14 Random Glucose 279 mg/dL (75-110) H 09/21/18 05:30 Calcium 8.5 mg/dL (8.4-10.2) 09/21/18 05:30 Transferrin 186.98 mg/dL (206-381) L 09/20/18 17:00 Ferritin 78.0 ng/Ml (17.9-464) 09/20/18 17:00 Total Bilirubin 0.2 mg/dl (0.2-1.3) 09/21/18 05:30 AST 16 U/L (17-59) L 09/21/18 05:30 ALT 20 U/L (21-72) L 09/21/18 05:30 Alkaline Phosphatase 66 U/L (38-126) 09/21/18 05:30 Troponin I < 0.0120 ng/mL (0.00-0.120) 09/20/18 13:00 NT-Pro-B Natriuret Pep 236 pg/ml (0-900) 09/20/18 13:00 Total Protein 6.6 G/DL (6.3-8.2) 09/21/18 05:30 Albumin 3.2 g/dL (3.5-5.0) L 09/21/18 05:30 Globulin 3.5 gm/dL (2.2-3.9) 09/21/18 05:30 Albumin/Globulin Ratio 0.9 (1.0-2.1) L 09/21/18 05:30 Venous Blood Potassium 4.0 mmol/L (3.6-5.2) 09/20/18 13:43 Grp A Beta Strep Ag Negative (NEGATIVE) 09/20/18 16:30 Attending/Attestation - Attestation I have personally seen and examined this patient.: Yes I have fully participated in the care of the patient.: Yes I have reviewed all pertinent clinical information, including history, physical exam and plan: Yes Notes (Text): COPD exacerbation - Pt received IV Solumedrol and RTC Duoneb treatments and also IV Azithro - CXR : no infiltrate - pt markedly improved, pt seen ambulating in the unit off Oxygen, walks to the pantry without SOB, was able to take shower - will d/c pt home on PO Medrol cheryl, cont inhaled steroids and Albuterol DM type II, with hyperglycemia due to steroids - cont Metformin
[2018-09-21 15:40] VITALS: BP 130/64; PULSE 113; RESP 20; TEMP 97.8; O2SAT 97
[2018-09-21] MEDS ORDERED: MethylPREDNISolone 40 mg Vial IV SCH (21:00)
== END 2018-09-21 18:00 | disposition home or self-care (01) ==
LOC: H.ER 11:59 → INTOOBSV 15:22 → H.ERHOLD 15:22 → H.TEL 17:32
PROVIDERS: ADMIT Student in an Organized Health Care Education/Training Program; ATTEND Student in an Organized Health Care Education/Training Program
DX: J44.1 Chronic obstructive pulmonary disease with (acute) exacerbation (principal); D50.9 Iron deficiency anemia, unspecified; J02.9 Acute pharyngitis, unspecified; Z86.711 Personal history of pulmonary embolism; L40.9 Psoriasis, unspecified; I11.0 Hypertensive heart disease with heart failure; I50.9 Heart failure, unspecified; E11.65 Type 2 diabetes mellitus with hyperglycemia; T38.0X5A Adverse effect of glucocorticoids and synthetic analogues, initial encounter; Z79.84 Long term (current) use of oral hypoglycemic drugs; E78.00 Pure hypercholesterolemia, unspecified; Z59.0 Homelessness; F17.210 Nicotine dependence, cigarettes, uncomplicated
CPT/HCPCS: 36415; 71045; 80053; 82728; 82803; 82948; 83880; 84466; 84484; 85025; 85027; 85610; 85730; 87040; 87070; 87430; 93005; 94640; 96372; 96374; 99285; G0378; J0456; J1650; J2930; J7050

== ENCOUNTER 2018-10-07 11:00 | Observation (INO) | payer SELFPAY ==
[2018-10-07 11:08] VITALS: BMI 26.6
[2018-10-07] MEDS ORDERED: Albuterol-Ipratrop 3 mg / 0.5 (3 ml) UD IH STA ×2 (11:23→11:31)
[2018-10-07] MEDS ORDERED: Albuterol-Ipratrop 3 mg / 0.5 (3 ml) UD INH STA (11:23)
--- NOTE | 2018-10-07 11:49 | ED PDOC ---
HPI: SOB/CHF/COPD Time Seen by Provider: 10/07/18 11:17 Chief Complaint (Nursing): Respiratory Distress Chief Complaint (Provider): Dyspnea History Per: Patient (Preet Brown is a 68 year old male with a past medical history of COPD, who presents to the emergency department complaining of pinching chest pain, onset x1 day. Patient is also complaining of shortness of breath, cough and bilateral leg swelling. patient is well known to Ed staff for bed seeking behavior. ) History/Exam Limitations: no limitations Onset/Duration Of Symptoms: Days Current Symptoms Are (Timing): Still Present Additional Complaint(s): 68 undomiciled y/o male with a PMHx of COPD and Asthma presents to the ED for evaluation of of shortness of breath associated with chest pain. Patient christelle tionally complaining of chronic bilateral lower leg swelling. Patient notes he was on his way to the residential when he began feeling very short of breath. Patient is well known to ED staff and provider for frequent visits of the same complaints and bed seeking behavior. Chest pain similar to asthma. No nausea, vomit, diarrhea, weakness. PMD: no provider Past Medical History Reviewed: Historical Data, Nursing Documentation, Vital Signs Vital Signs: Last Vital Signs Temp 97.7 F 10/07/18 11:08 Pulse 122 H 10/07/18 11:08 Resp 20 10/07/18 11:08 BP 144/67 10/07/18 11:08 Pulse Ox 99 10/07/18 11:08 - Medical History PMH: Asthma, CHF, COPD, Diabetes, HTN, Hypercholesterolemia, Pneumonia, Pulmonary Embolism Denies: HIV, Chronic Kidney Disease Other PMH: chronic leg venous stasis - Surgical History Surgical History: No Surg Hx - Family History Family History: States: [place], Diabetes - Living Arrangements Living Arrangements: Other (undomiciled) - Immunization History Hx Tetanus Toxoid Vaccination: No Hx Influenza Vaccination: No Hx Pneumococcal Vaccination: No - Home Medications Home Medications: Ambulatory Orders Medication Instructions Recorded Albuterol HFA [Ventolin HFA 90 2 puff INH Q4 PRN 08/10/18 mcg/actuation (8 g)] Fluticasone/Salmeterol 500/50 1 puff IH Q12 puff 08/12/18 [Advair Diskus 500/50] metFORMIN [glucOPHAGE] 500 mg PO BIDWM tab 08/12/18 Methylprednisolone [Medrol Dose 4 mg PO ASDIR #21 mg 09/21/18 Pack (21 tabs)] Albuterol Sulfate [Proair Hfa] 0.09 mg IH Q6H PRN #2 inh 10/07/18 predniSONE [predniSONE Tab] 20 mg PO BID 5 Days tab 10/07/18 - Allergies Allergies/Adverse Reactions: Allergies Allergy/AdvReac Type Severity Reaction Status Date / Time No Known Allergies Allergy Verified 09/20/18 12:06 Review of Systems ROS Statement: Except As Marked, All Systems Reviewed And Found Negative Cardiovascular: Positive for: Chest Pain Respiratory: Positive for: Cough, Shortness of Breath, Wheezing Physical Exam - Reviewed Nursing Documentation Reviewed: Yes Vital Signs Reviewed: Yes - Physical Exam Appears: Positive for: Uncomfortable Head Exam: Positive for: ATRAUMATIC Skin: Positive for: Normal Color, Warm, Dry Eye Exam: Positive for: Normal appearance, EOMI, PERRL ENT: Positive for: Nasal Congestion Neck: Positive for: Normal, Painless ROM Respiratory: Positive for: Decreased Breath Sounds, Wheezing (Diffuse wheezing bilaterally), Respiratory Distress. Negative for: Accessory Muscle Use Gastrointestinal/Abdominal: Positive for: Soft. Negative for: Tenderness Back: Positive for: Normal Inspection. Negative for: L CVA Tenderness, R CVA Tenderness Extremity: Positive for: Normal ROM, Deformity (chronic venous stasis). Negative for: Tenderness, Other (gross edema) Neurological/Psych: Positive for: Awake, Alert, Oriented. Negative for: Motor/Sensory Deficits - Laboratory Results Result Diagrams: 10/07/18 11:55 10/07/18 11:55 Interpretation Of Abn Labs: 12.3 wbc - ECG ECG: Positive for: Interpreted By Me, Viewed By Me ECG Rhythm: Positive for: Normal QRS, Sinus Tachycardia (mild) O2 Sat by Pulse Oximetry: 99 (RA) Pulse Ox Interpretation: Normal - Radiology X-Ray: Read By Radiologist X-Ray Interpretation: No Acute Disease - Progress ED Course And Treament: 1405: Stable. Sleeping. Sats 99% RA. AAOx3. No wheezes. Fu with pcp. Medical Decision Making Medical Decision Making: Time: 112 Plan: -- ABG -- VBG -- EKG -- B-Type Natiuretic -- CMP -- Troponin I -- CBC with Differentials -- PTT -- Prothrombin Time -- CXR Portable -- Duoneb 3mg/0.5mg 3 ml (UD) 3 ml INH -- Duoneb 3mg/0.5mg 3 ml (UD) 3 ml INH -- Duoneb 3mg/0.5mg 3 ml (UD) 3 ml INH -- SOLU-Medrol 125 mg IVP -- Peak Flow Pre/Post Tx Scribe Attestation: Documented by Charla Slater, acting as a scribe Robyn Conti MD. Provider Scribe Attestation: All medical record entries made by the Scribe were at my direction and personally dictated by me. I have reviewed the chart and agree that the record accurately reflects my personal performance of the history, physical exam, medical decision making, and the department course for this patient. I have also personally directed, reviewed, and agree with the discharge instructions and disposition. Disposition - Clinical Impression Clinical Impression: Asthma exacerbation - Patient ED Disposition Is Patient to be Admitted: No Counseled Patient/Family Regarding: Studies Performed, Diagnosis, Need For Followup, Rx Given - Disposition Referrals: [facility] [Outside] - 10/10/18 Disposition: Routine/Home Disposition Time: 12:59 Condition: STABLE Additional Instructions: Return if not better in 3 days. Prescriptions: Albuterol Sulfate [Proair Hfa] 0.09 mg IH Q6H PRN #2 inh PRN Reason: Wheezing predniSONE [predniSONE Tab] 20 mg PO BID 5 Days tab Instructions: Asthma, Adult (DC)
[2018-10-07] MEDS ORDERED: Albuterol-Ipratrop 3 mg / 0.5 (3 ml) UD ONE ×2 (12:01→20:41)
[2018-10-07 12:08] LABS: ABG ALLEN TEST YES; ARTERIAL BLOOD GAS HCO3 27.3 mmol/L (21-28); ARTERIAL BLOOD GAS PCO2 37 mm/Hg (35-45); ARTERIAL BLOOD GAS PH 7.47 (7.35-7.45); ARTERIAL BLOOD GAS PO2 74 mm/Hg (80-100)
[2018-10-07 12:09] LABS: ARTERIAL BLOOD GAS O2 SAT 100.1 % (95-98)
[2018-10-07 12:15] LABS: BASO % 0.4 % (0.0-2.0); EOS # 0.1 K/uL (0.0-0.7); EOS % 0.5 % (0.0-4.0); HEMOGLOBIN 9.7 g/dL (12.0-18.0); LYMPH # 2.3 K/uL (1.0-4.3); LYMPH % 18.7 % (20.0-40.0); MEAN CELL VOLUME 74.1 fl (80.0-94.0); MEAN CORPUSCULAR HEMOGLOBIN 23.2 pg (27.0-31.0); MEAN CORPUSCULAR HGB CONC 31.3 g/dL (33.0-37.0); MEAN PLATELET VOLUME 7.9 fl (7.2-11.7); MONO # 0.7 K/uL (0.0-0.8); MONO % 5.4 % (0.0-10.0); NEUT # 9.2 K/uL (1.8-7.0); NRBC % 0.1 % (0.0-0.0); RBC 4.19 Mil/uL (4.40-5.90); RED CELL DISTRIBUTION WIDTH 20.6 % (11.5-14.5)
[2018-10-07 12:16] LABS: WHITE BLOOD COUNT 12.3 K/uL (4.8-10.8)
[2018-10-07 12:24] LABS: ALB/GLOB RATIO 0.8 (1.0-2.1); ALBUMIN 3.1 g/dL (3.5-5.0); ALT/SGPT 12 U/L (21-72); AST/SGOT 23 U/L (17-59); BLOOD UREA NITROGEN 18 mg/dl (9-20); CALCIUM 8.4 mg/dL (8.4-10.2); GFR NON-AFRICAN AMERICAN > 60
[2018-10-07 12:26] LABS: B-TYPE NATRIURETIC PEPTIDE 397 pg/ml (0-900)
--- NOTE | 2018-10-07 12:39 | RAD ---
Date of service: 10/07/2018 HISTORY: Dyspnea. COMPARISON: 09/20/2018. Single-view chest FINDINGS: LUNGS: Stable atelectasis/scarring left base. PLEURA: No significant pleural effusion identified, no pneumothorax apparent. CARDIOVASCULAR: Atherosclerotic calcifications identified primarily aortic arch. No radiographic findings to suggest acute or significant cardiovascular disease. OSSEOUS STRUCTURES: No significant abnormalities. VISUALIZED UPPER ABDOMEN: Normal. OTHER FINDINGS: None. IMPRESSION: No active disease. No significant interval change compared to the prior examination(s).
[2018-10-07] MEDS ORDERED: Albuterol 0.083% Inhal Sol (2.5 mg/3 mL) UD INH PRN (15:31)
--- NOTE | 2018-10-07 15:36 | CP.PCM.HP ---
<Nnamdi Olsen - Last Filed: 10/07/18 16:50> History of Present Illness - History of Present Illness History of Present Illness: 68 yo male, known to our service, with PMH of COPD, NIDDM2, HTN, PE w IVC filter and psoriasis presented to [facility] ER for evaluation of worsening cough and SOB. He reports symptoms started today in morning without inciting event. Reports worsening cough, increased sputum, and yellow sputum production and assoicated sore throat. patient report having some fever yesterday. Denies any prior URI or illness. No sick contacts. Episodic chest pain with coughing. Denies fever/chills, headaches, changes in vision, hemoptysis, CP/Palpitations, N/V/D/C, urinary symptoms. ROS: 12 points reviewed, found to be negative unless otherwise noted in HPI. PMD: None PMH: COPD, NIDDM2, HTN, PE s/p IVC filter-2014 (not on anticoagulation), hx of retroperitoneal hematoma (2014) and psoriasis Medications: none Allergies: NKDA PSH: IVC filter Fam: denies SOC: former smoker (30 pack years), former Etoh abuse (last drink in 04/2017) denies drug use; is homeless, sometimes sleeps in his friends house ED course Pt vitals 98.6 temp, 98hr, 140/78, 16RR, 99ox WBC 12.3 h/h 9.7/31.1 trop negative GLucose 212 X-ray no acute disease Patient recieved deuneb, albuterol, and oxygen Patient admitted to Telemetry under obs for further treatment of COPD exacerbation. Present on Admission - Present on Admission Any Indicators Present on Admission: No Past Patient History - Infectious Disease Hx of Infectious Diseases: None - Tetanus Immunizations Tetanus Immunization: Unknown - Past Medical History & Family History Past Medical History?: Yes - Past Social History Smoking Status: Former Smoker - CARDIAC Hx Congestive Heart Failure: Yes Hx Hypercholesterolemia: Yes Hx Hypertension: Yes - PULMONARY Hx Asthma: Yes Hx Chronic Obstructive Pulmonary Disease (COPD): Yes Hx Pneumonia: Yes Hx Pulmonary Embolism: Yes - NEUROLOGICAL Hx Neurological Disorder: Yes - HEENT Hx HEENT Problems: No - RENAL Hx Chronic Kidney Disease: No - ENDOCRINE/METABOLIC Hx Endocrine Disorders: Yes - HEMATOLOGICAL/ONCOLOGICAL Hx Human Immunodeficiency Virus (HIV): No - INTEGUMENTARY Hx Dermatological Problems: Yes Hx Eczema: Yes - MUSCULOSKELETAL/RHEUMATOLOGICAL Hx Musculoskeletal Disorders: No - GASTROINTESTINAL Hx Gastrointestinal Disorders: Yes Other/Comment: GI bleeding - GENITOURINARY/GYNECOLOGICAL Hx Genitourinary Disorders: No - PSYCHIATRIC Hx Psychophysiologic Disorder: No Hx Substance Use: No - SURGICAL HISTORY Hx Surgeries: Yes Other/Comment: IVC Filter - ANESTHESIA Hx Anesthesia: Yes Hx Anesthesia Reactions: No Hx Malignant Hyperthermia: No Meds Allergies/Adverse Reactions: Allergies Allergy/AdvReac Type Severity Reaction Status Date / Time No Known Allergies Allergy Verified 09/20/18 12:06 Physical Exam - Constitutional Appears: Well, Non-toxic, No Acute Distress - Head Exam Head Exam: ATRAUMATIC, NORMAL INSPECTION, NORMOCEPHALIC - Eye Exam Eye Exam: EOMI, Normal appearance, PERRL Pupil Exam: NORMAL ACCOMODATION, PERRL - ENT Exam ENT Exam: Mucous Membranes Moist, Normal Exam - Neck Exam Neck exam: Positive for: Normal Inspection - Respiratory Exam Respiratory Exam: Chest Wall Tenderness, Rales, Rhonchi, Stridor, NORMAL BREATHING PATTERN - Cardiovascular Exam Cardiovascular Exam: REGULAR RHYTHM, +S1, +S2 - GI/Abdominal Exam GI & Abdominal Exam: Normal Bowel Sounds, Soft - Skin Skin Exam: Warm Additional comments: Psoriasis plaque noted in all over body. Results - Vital Signs Recent Vital Signs: Last Vital Signs Temp 98.6 F 10/07/18 14:31 Pulse 103 H 10/07/18 14:31 Resp 12 10/07/18 14:31 BP 139/60 10/07/18 14:31 Pulse Ox 95 10/07/18 14:31 - Labs Result Diagrams: 10/07/18 11:55 10/07/18 11:55 Labs: Laboratory Results - last 24 hr 10/07/18 10/07/18 10/07/18 11:22 11:55 11:55 WBC 12.3 H D RBC 4.19 L Hgb 9.7 L Hct 31.1 L MCV 74.1 L MCH 23.2 L MCHC 31.3 L RDW 20.6 H Plt Count 306 MPV 7.9 Neut % (Auto) 75.0 Lymph % (Auto) 18.7 L [place] % (Auto) 5.4 Eos % (Auto) 0.5 Baso % (Auto) 0.4 Neut # (Auto) 9.2 H Lymph # (Auto) 2.3 [place] # (Auto) 0.7 Eos # (Auto) 0.1 Baso # (Auto) 0.0 pCO2 37 pO2 74 L HCO3 27.3 ABG pH 7.47 H ABG Total CO2 28.0 ABG O2 Saturation 100.1 H ABG Base Excess 3.1 H Slim Test Yes ABG Potassium 3.7 A-a O2 Difference 29.0 Sodium 141.0 143 Chloride 108.0 H 109 H Glucose 194 H Lactate 3.1 H FiO2 21.0 Potassium 4.0 Carbon Dioxide 23 Anion Gap 15 BUN 18 Creatinine 0.8 Est GFR ( Amer) > 60 Est GFR (Non-Af Amer) > 60 Random Glucose 212 H Calcium 8.4 Total Bilirubin 0.4 AST 23 ALT 12 L D Alkaline Phosphatase 60 Troponin I < 0.0120 NT-Pro-B Natriuret Pep 397 Total Protein 6.8 Albumin 3.1 L Globulin 3.7 Albumin/Globulin Ratio 0.8 L Arterial Blood Potassium 3.7 Assessment & Plan - Assessment and Plan (Free Text) Assessment: 67 y/o male with a PMHx of COPD, HTN, NIDDM2, PE (w IVC filter) and Psoriasis ad mitted for Acute COPD exacerbation. Plan: 1) Acute COPD Exacerbation -afebrile -WBC 12.3 -Duo-neb Q4H lovely -solu-medrol 60mg Q12H -Azithromycin 500mg once - Azithromycine 250mg daily starting 10/08/18 -Resume Advair -supplemental O2 via NC PRN -CXR: no lobar pneumonia -repeat AM labs 2) Microcytic Anemia of Unknown Etiology H/H 9.7/31.1 Continue monitor 3) NIDDM2 -Resume metformin 500mg BID -hypoglycemic protocol -accuchecks ACHS 4) HTN -controlled -monitor BP 5) Prophylaxis -lovenox 40mg SC QD 6) Diet -heart healthy/moderate carbohydrate diet 7) Code status -full code <Jurgen Taylor - Last Filed: 10/07/18 16:54> Results - Vital Signs Recent Vital Signs: Last Vital Signs Temp 98.6 F 10/07/18 15:48 Pulse 103 H 10/07/18 15:48 Resp 20 10/07/18 15:48 BP 168/88 H 10/07/18 15:48 Pulse Ox 98 10/07/18 15:48 - Labs Result Diagrams: 10/07/18 11:55 10/07/18 11:55 Labs: Laboratory Results - last 24 hr 10/07/18 10/07/18 10/07/18 11:22 11:55 11:55 WBC 12.3 H D RBC 4.19 L Hgb 9.7 L Hct 31.1 L MCV 74.1 L MCH 23.2 L MCHC 31.3 L RDW 20.6 H Plt Count 306 MPV 7.9 Neut % (Auto) 75.0 Lymph % (Auto) 18.7 L [place] % (Auto) 5.4 Eos % (Auto) 0.5 Baso % (Auto) 0.4 Neut # (Auto) 9.2 H Lymph # (Auto) 2.3 [place] # (Auto) 0.7 Eos # (Auto) 0.1 Baso # (Auto) 0.0 pCO2 37 pO2 74 L HCO3 27.3 ABG pH 7.47 H ABG Total CO2 28.0 ABG O2 Saturation 100.1 H ABG Base Excess 3.1 H Slim Test Yes ABG Potassium 3.7 A-a O2 Difference 29.0 Sodium 141.0 143 Chloride 108.0 H 109 H Glucose 194 H Lactate 3.1 H FiO2 21.0 Potassium 4.0 Carbon Dioxide 23 Anion Gap 15 BUN 18 Creatinine 0.8 Est GFR ( Amer) > 60 Est GFR (Non-Af Amer) > 60 Random Glucose 212 H Calcium 8.4 Total Bilirubin 0.4 AST 23 ALT 12 L D Alkaline Phosphatase 60 Troponin I < 0.0120 NT-Pro-B Natriuret Pep 397 Total Protein 6.8 Albumin 3.1 L Globulin 3.7 Albumin/Globulin Ratio 0.8 L Arterial Blood Potassium 3.7 Attending/Attestation - Attestation I have personally seen and examined this patient.: Yes I have fully participated in the care of the patient.: Yes I have reviewed all pertinent clinical information: Yes Notes (Text): 10/07/18 16:53 Patient seen and examined with resident. Case discussed and agreed with assessment and plan.
[2018-10-07] MEDS ORDERED: methylPREDNISolone 40 MG in Sodium Chloride 0.9% 50 ML IV SCH (15:45)
[2018-10-07] MEDS ORDERED: MethylPREDNISolone 40 mg Vial IVP ONE (15:45)
[2018-10-07] MEDS ORDERED: Azithromycin 500 MG in Sodium Chloride 0.9% 250 ML IVPB ONE (16:45)
[2018-10-07] MEDS ORDERED: Glucagon Recombinant 1 mg Inj IM PRN (16:48)
[2018-10-07] MEDS ORDERED: Dextrose 50% SYRINGE Inj (50 ml) IV PRN (16:48)
[2018-10-07] MEDS ORDERED: Azithromycin 500 MG IV IVPB ONE (17:23)
[2018-10-07 17:25] LABS: BLOOD UREA NITROGEN 15 mg/dl (9-20); CALCIUM 8.5 mg/dL (8.4-10.2); GFR NON-AFRICAN AMERICAN > 60
[2018-10-07 17:28] LABS: URINE BILIRUBIN NEGATIVE (NEGATIVE); URINE BLOOD NEGATIVE (NEGATIVE); URINE CLARITY CLEAR (Clear); URINE COLOR YELLOW (YELLOW); URINE GLUCOSE (UA) 50 mg/dL (NEGATIVE); URINE LEUKOCYTE ESTERASE NEG Leu/uL (Negative); URINE PROTEIN 100 mg/dL (NEGATIVE); URINE UROBILINOGEN 0.2-1.0 mg/dL (0.2-1.0)
[2018-10-07 17:30] LABS: INR 1.1; PROTHROMBIN TIME 12.3 Seconds (9.8-13.1)
[2018-10-07 17:32] LABS: PARTIAL THROMBOPLASTIN TIME 28.2 Seconds (25.6-37.1)
[2018-10-07] MEDS ORDERED: Albuterol-Ipratrop 3 mg / 0.5 (3 ml) UD INH SCH (20:00)
[2018-10-07] MEDS ORDERED: Influenza Vaccine 60 mcg/0.5 mL SYR (4YR UP) IM ONE ×2 (21:34→22:15)
--- NOTE | 2018-10-07 22:25 | CARD ---
APPROVED REPORT Date of service: 10/07/2018 EKG Measurement Heart [id number] <Conclusion> Sinus tachycardia Nonspecific ST and T wave abnormality Abnormal ECG
--- NOTE | 2018-10-08 06:46 | CP.PCM.PN ---
<Jesus Jenkins - Last Filed: 10/08/18 08:33> Subjective - Date & Time of Evaluation Date of Evaluation: 10/08/18 Time of Evaluation: 08:33 - Subjective Subjective: Patient seen and examined this morning at bedside. There are no acute events overnight, NAD. Patient reports breathing is improved but continues to have productive cough which patient reports is also improved. Patient denies headaches, chest pain, SOB, abdominal pain, nausea, vomiting, diarrhea, or fever. Objective - Vital Signs/Intake and Output Vital Signs (last 24 hours): Temp Pulse Resp BP Pulse Ox 97.7 F 105 H 20 148/72 98 10/08/18 04:57 10/08/18 04:57 10/08/18 04:57 10/08/18 04:57 10/08/18 04:57 - Medications Medications: Current Medications Acetaminophen (Tylenol 325mg Tab) 650 mg PO Q6 PRN PRN Reason: Pain, moderate (4-7) Albuterol Sulfate (Albuterol 0.083% Inhal [place] (2.5 Mg/3 Ml) Ud) 2.5 mg INH RQ4 PRN PRN Reason: Shortness of Breath Albuterol/Ipratropium (Duoneb 3 Mg/0.5 Mg (3 Ml) Ud) 3 ml INH RTID [facility] Dextrose (Dextrose 50% Inj) 0 ml IV STAT PRN; Protocol PRN Reason: Hypoglycemia Protocol Dextrose (Glutose 15) 0 gm PO ONCE PRN; Protocol PRN Reason: Hypoglycemia Protocol Enoxaparin Sodium (Lovenox) 40 mg SC DAILY [facility]; Protocol Glucagon (Glucagen Diagnostic Kit) 0 mg IM STAT PRN; Protocol PRN Reason: Hypoglycemia Protocol Azithromycin 250 mg/ Sodium (Chloride) 250 mls @ 250 mls/hr IVPB DAILY [facility]; Protocol Metformin HCl (Glucophage) 500 mg PO BIDWM [facility] Last Admin: 10/07/18 17:23 Dose: 500 mg Methylprednisolone (Solu-Medrol) 40 mg IVP Q12H [facility] - Labs Labs: 10/07/18 11:55 10/07/18 16:54 PT 12.3 Seconds (9.8-13.1) 10/07/18 16:54 INR 1.1 10/07/18 16:54 APTT 28.2 Seconds (25.6-37.1) 10/07/18 16:54 - Constitutional Appears: Non-toxic, No Acute Distress - Head Exam Head Exam: ATRAUMATIC, NORMAL INSPECTION, NORMOCEPHALIC - Eye Exam Eye Exam: EOMI, Normal appearance, PERRL - ENT Exam ENT Exam: Mucous Membranes Moist - Neck Exam Neck Exam: Full ROM. absent: Tenderness - Respiratory Exam Respiratory Exam: Rales, Rhonchi, Wheezes. absent: Accessory Muscle Use, Respiratory Distress - Cardiovascular Exam Cardiovascular Exam: REGULAR RHYTHM, +S1, +S2. absent: Tachycardia - GI/Abdominal Exam GI & Abdominal Exam: Soft, Normal Bowel Sounds. absent: Tenderness - Skin Skin Exam: Warm Additional comments: diffuse dry, psoriatic, plaque through body Assessment and Plan - Assessment and Plan (Free Text) Assessment: 68 y/o male with a PMHx of COPD, HTN, NIDDM2, PE (w IVC filter) and Psoriasis admitted for Acute COPD exacerbation. 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 - c/w lac-hydrin Microcytic Anemia of Unknown Etiology - H/H 9.7/31.1 - monitor for acute changes NIDDM2 - c/w metformin 500mg PO BID - insulin correction scale - hypoglycemic protocol - accuchecks ACHS HTN - controlled w/o medication - monitor for acute changes Prophylatic measures - DVT: lovenox 40mg SC daily Diet - heart healthy/moderate carbohydrate diet Code status - full code <Jurgen Taylor - Last Filed: 10/08/18 10:13> Objective - Vital Signs/Intake and Output Vital Signs (last 24 hours): Temp Pulse Resp BP Pulse Ox 98.2 F 92 H 18 143/73 99 10/08/18 08:03 10/08/18 09:00 10/08/18 08:03 10/08/18 08:03 10/08/18 08:03 - Medications Medications: Current Medications Acetaminophen (Tylenol 325mg Tab) 650 mg PO Q6 PRN PRN Reason: Pain, moderate (4-7) Albuterol Sulfate (Albuterol 0.083% Inhal [place] (2.5 Mg/3 Ml) Ud) 2.5 mg INH RQ4 PRN PRN Reason: Shortness of Breath Albuterol/Ipratropium (Duoneb 3 Mg/0.5 Mg (3 Ml) Ud) 3 ml INH RQ4 [facility] Benzonatate (Tessalon Perles) 200 mg PO Q8 PRN PRN Reason: Cough Dextrose (Dextrose 50% Inj) 0 ml IV STAT PRN; Protocol PRN Reason: Hypoglycemia Protocol Dextrose (Glutose 15) 0 gm PO ONCE PRN; Protocol PRN Reason: Hypoglycemia Protocol Enoxaparin Sodium (Lovenox) 40 mg SC DAILY [facility]; Protocol Last Admin: 10/08/18 08:35 Dose: 40 mg Glucagon (Glucagen Diagnostic Kit) 0 mg IM STAT PRN; Protocol PRN Reason: Hypoglycemia Protocol Guaifenesin/Dextromethorphan (Robitussin Dm) 10 ml PO Q4 PRN PRN Reason: Cough Azithromycin 250 mg/ Sodium (Chloride) 250 mls @ 250 mls/hr IVPB DAILY [facility]; Protocol Last Admin: 10/08/18 10:05 Dose: 250 mls/hr Insulin Human Lispro (Humalog) 0 units SC ACHS [facility]; Protocol Lactic Acid (Lac-Hydrin 12% Lotion (225 G)) 1 applic TOP TID [facility] Last Admin: 10/08/18 10:06 Dose: 1 applic Metformin HCl (Glucophage) 500 mg PO BIDWM [facility] Last Admin: 10/08/18 08:35 Dose: 500 mg Methylprednisolone (Solu-Medrol) 40 mg IVP Q12H [facility] Last Admin: 10/08/18 08:35 Dose: 40 mg - Labs Labs: 10/07/18 11:55 10/07/18 16:54 PT 12.3 Seconds (9.8-13.1) 10/07/18 16:54 INR 1.1 10/07/18 16:54 APTT 28.2 Seconds (25.6-37.1) 10/07/18 16:54 Attending/Attestation - Attestation I have personally seen and examined this patient.: Yes I have fully participated in the care of the patient.: Yes I have reviewed all pertinent clinical information, including history, physical exam and plan: Yes Notes (Text): 10/08/18 10:11 Patient seen and examined with resident. Case discussed and agreed with assessment.
[2018-10-08] MEDS ORDERED: guaiFENesin DM 200 mg-20 mg/10 ml UD PO PRN (08:19)
[2018-10-08] MEDS: Enoxaparin 40 mg Syringe SC SCH (08:35)
[2018-10-08] MEDS: MethylPREDNISolone 40 mg Vial IVP SCH ×2 (08:35→21:00)
[2018-10-08] MEDS ORDERED: Azithromycin 250 MG in Sodium Chloride 0.9% 250 ML IVPB SCH (09:00)
[2018-10-08] MEDS: Albuterol-Ipratrop 3 mg / 0.5 (3 ml) UD INH SCH ×4 (11:07→23:24)
[2018-10-08] MEDS: Insulin Lispro (humaLOG) 100 Units/ml Inj SC SCH ×3 (12:38→22:00)
[2018-10-09] MEDS: Albuterol-Ipratrop 3 mg / 0.5 (3 ml) UD INH SCH ×4 (04:18→15:30)
[2018-10-09 06:12] LABS: HEMOGLOBIN 9.1 g/dL (12.0-18.0); MEAN CELL VOLUME 73.7 fl (80.0-94.0); MEAN CORPUSCULAR HEMOGLOBIN 23.4 pg (27.0-31.0); MEAN CORPUSCULAR HGB CONC 31.7 g/dL (33.0-37.0); RBC 3.88 Mil/uL (4.40-5.90); RED CELL DISTRIBUTION WIDTH 20.4 % (11.5-14.5); WHITE BLOOD COUNT 8.9 K/uL (4.8-10.8)
[2018-10-09 06:31] LABS: BLOOD UREA NITROGEN 19 mg/dl (9-20); CALCIUM 8.2 mg/dL (8.4-10.2); GFR NON-AFRICAN AMERICAN > 60
[2018-10-09] MEDS: Insulin Lispro (humaLOG) 100 Units/ml Inj SC SCH ×2 (06:54→14:01)
--- NOTE | 2018-10-09 08:30 | CP.PCM.DIS ---
<Jesus Jenkins - Last Filed: 10/09/18 11:41> Provider - Provider Date of Admission: 10/07/18 14:50 Attending physician: Jurgen Taylor MD Time Spent in preparation of Discharge (in minutes): 15 Diagnosis - Discharge Diagnosis (1) COPD exacerbation Status: Acute Hospital Course - Lab Results Lab Results: Most Recent Lab Values WBC 8.9 K/uL (4.8-10.8) 10/09/18 04:25 RBC 3.88 Mil/uL (4.40-5.90) L 10/09/18 04:25 Hgb 9.1 g/dL (12.0-18.0) L 10/09/18 04:25 Hct 28.6 % (35.0-51.0) L 10/09/18 04:25 MCV 73.7 fl (80.0-94.0) L 10/09/18 04:25 MCH 23.4 pg (27.0-31.0) L 10/09/18 04:25 MCHC 31.7 g/dL (33.0-37.0) L 10/09/18 04:25 RDW 20.4 % (11.5-14.5) H 10/09/18 04:25 Plt Count 297 K/uL (130-400) 10/09/18 04:25 MPV 7.9 fl (7.2-11.7) 10/07/18 11:55 Neut % (Auto) 75.0 % (50.0-75.0) 10/07/18 11:55 Lymph % (Auto) 18.7 % (20.0-40.0) L 10/07/18 11:55 [place] % (Auto) 5.4 % (0.0-10.0) 10/07/18 11:55 Eos % (Auto) 0.5 % (0.0-4.0) 10/07/18 11:55 Baso % (Auto) 0.4 % (0.0-2.0) 10/07/18 11:55 Neut # (Auto) 9.2 K/uL (1.8-7.0) H 10/07/18 11:55 Lymph # (Auto) 2.3 K/uL (1.0-4.3) 10/07/18 11:55 [place] # (Auto) 0.7 K/uL (0.0-0.8) 10/07/18 11:55 Eos # (Auto) 0.1 K/uL (0.0-0.7) 10/07/18 11:55 Baso # (Auto) 0.0 K/uL (0.0-0.2) 10/07/18 11:55 PT 12.3 Seconds (9.8-13.1) 10/07/18 16:54 INR 1.1 10/07/18 16:54 APTT 28.2 Seconds (25.6-37.1) 10/07/18 16:54 pCO2 37 mm/Hg (35-45) 10/07/18 11:22 pO2 74 mm/Hg (80-100) L 10/07/18 11:22 HCO3 27.3 mmol/L (21-28) 10/07/18 11:22 ABG pH 7.47 (7.35-7.45) H 10/07/18 11:22 ABG Total CO2 28.0 mmol/L (22-28) 10/07/18 11:22 ABG O2 Saturation 100.1 % (95-98) H 10/07/18 11:22 ABG Base Excess 3.1 mmol/L (-2.0-3.0) H 10/07/18 11:22 Slim Test Yes 10/07/18 11:22 ABG Potassium 3.7 mmol/L (3.6-5.2) 10/07/18 11:22 A-a O2 Difference 29.0 mm/Hg 10/07/18 11:22 Sodium 141.0 mmol/L (132-148) 10/07/18 11:22 Chloride 108.0 mmol/L (98-107) H 10/07/18 11:22 Glucose 194 mg/dL (75-110) H 10/07/18 11:22 Lactate 3.1 mmol/L (0.7-2.1) H 10/07/18 11:22 FiO2 21.0 % 10/07/18 11:22 Sodium 137 mmol/l (132-148) 10/09/18 04:25 Potassium 4.6 MMOL/L (3.6-5.0) 10/09/18 04:25 Chloride 103 mmol/L (98-107) 10/09/18 04:25 Carbon Dioxide 25 mmol/L (22-30) 10/09/18 04:25 Anion Gap 14 (10-20) 10/09/18 04:25 BUN 19 mg/dl (9-20) 10/09/18 04:25 Creatinine 0.8 mg/dl (0.8-1.5) 10/09/18 04:25 Est GFR ( Amer) > 60 10/09/18 04:25 Est GFR (Non-Af Amer) > 60 10/09/18 04:25 POC Glucose (mg/dL) 260 mg/dL (65-110) H 10/09/18 06:07 Random Glucose 254 mg/dL (75-110) H 10/09/18 04:25 Lactic Acid 1.4 mmol/L (0.7-2.1) 10/07/18 16:54 Calcium 8.2 mg/dL (8.4-10.2) L 10/09/18 04:25 Total Bilirubin 0.4 mg/dl (0.2-1.3) 10/07/18 11:55 AST 23 U/L (17-59) 10/07/18 11:55 ALT 12 U/L (21-72) L D 10/07/18 11:55 Alkaline Phosphatase 60 U/L (38-126) 10/07/18 11:55 Troponin I < 0.0120 ng/mL (0.00-0.120) 10/07/18 23:45 NT-Pro-B Natriuret Pep 397 pg/ml (0-900) 10/07/18 11:55 Total Protein 6.8 G/DL (6.3-8.2) 10/07/18 11:55 Albumin 3.1 g/dL (3.5-5.0) L 10/07/18 11:55 Globulin 3.7 gm/dL (2.2-3.9) 10/07/18 11:55 Albumin/Globulin Ratio 0.8 (1.0-2.1) L 10/07/18 11:55 Arterial Blood Potassium 3.7 mmol/L (3.6-5.2) 10/07/18 11:22 Urine Color Yellow (YELLOW) 10/07/18 17:14 Urine Clarity Clear (Clear) 10/07/18 17:14 Urine pH 7.0 (5.0-8.0) 10/07/18 17:14 Ur Specific [place] 1.017 (1.003-1.030) 10/07/18 17:14 Urine Protein 100 mg/dL (NEGATIVE) 10/07/18 17:14 Urine Glucose (UA) 50 mg/dL (NEGATIVE) 10/07/18 17:14 Urine Ketones Negative mg/dL (NEGATIVE) 10/07/18 17:14 Urine Blood Negative (NEGATIVE) 10/07/18 17:14 Urine Nitrate Negative (NEGATIVE) 10/07/18 17:14 Urine Bilirubin Negative (NEGATIVE) 10/07/18 17:14 Urine Urobilinogen 0.2-1.0 mg/dL (0.2-1.0) 10/07/18 17:14 Ur Leukocyte Esterase Neg [place]/uL (Negative) 10/07/18 17:14 Urine RBC (Auto) 2 /hpf (0-3) 10/07/18 17:14 Urine Microscopic WBC < 1 /hpf (0-5) 10/07/18 17:14 - Hospital Course Hospital Course: 68 y/o man w/ PMH of COPD, HTN, NIDDM2, PE (w IVC filter) and Psoriasis admitted for Acute COPD exacerbation. CXR showed no lobar pneumonia. Patient treated with Solumedrol IV 40 mg IV Q12h, Duonebs, O2 via NC and IV Azithromycin empirically. Patient feeling better and breathing improved. No leukocytosis, afebrile, and no other signs of infection. The patient has been seen, examined, and deemed medically fit for discharge. Patient was advised to follow up with PCP as outpatient for management of chronic conditions. Discharge Exam - Head Exam Head Exam: ATRAUMATIC, NORMAL INSPECTION, NORMOCEPHALIC - Eye Exam Eye Exam: EOMI, Normal appearance, PERRL - ENT Exam ENT Exam: Mucous Membranes Moist - Respiratory Exam Respiratory Exam: Wheezes (mild scattered). absent: Rales, Rhonchi, Respiratory Distress - Cardiovascular Exam Cardiovascular Exam: REGULAR RHYTHM, RRR, +S1, +S2. absent: Tachycardia - GI/Abdominal Exam GI & Abdominal Exam: Normal Bowel Sounds, Soft. absent: Tenderness - Extremities Exam Extremities exam: normal inspection - Neurological Exam Neurological exam: Alert, Normal Gait, Oriented x3 - Skin Skin Exam: Dry Additional comments: diffuse dry, psoriatic, plaque through body Discharge Plan - Discharge Medications Prescriptions: Albuterol HFA [Ventolin HFA 90 mcg/actuation (8 g)] 2 puff INH Q4 PRN #1 inhaler PRN Reason: sob Fluticasone/Salmeterol 500/50 [Advair Diskus 500/50] 1 puff IH Q12 #1 puff metFORMIN [glucOPHAGE] 500 mg PO BIDWM #60 tab - Follow Up Plan Condition: STABLE Disposition: HOME/ ROUTINE Instructions: Asthma, Adult (DC) Additional Instructions: Return if not better in 3 days. Referrals: [facility] [Outside] - 10/10/18 <Jurgen Taylor - Last Filed: 10/09/18 13:45> Provider - Provider Date of Admission: 10/07/18 14:50 Attending physician: Jurgen Taylor MD Hospital Course - Lab Results Lab Results: Most Recent Lab Values WBC 8.9 K/uL (4.8-10.8) 10/09/18 04:25 RBC 3.88 Mil/uL (4.40-5.90) L 10/09/18 04:25 Hgb 9.1 g/dL (12.0-18.0) L 10/09/18 04:25 Hct 28.6 % (35.0-51.0) L 10/09/18 04:25 MCV 73.7 fl (80.0-94.0) L 10/09/18 04:25 MCH 23.4 pg (27.0-31.0) L 10/09/18 04:25 MCHC 31.7 g/dL (33.0-37.0) L 10/09/18 04:25 RDW 20.4 % (11.5-14.5) H 10/09/18 04:25 Plt Count 297 K/uL (130-400) 10/09/18 04:25 MPV 7.9 fl (7.2-11.7) 10/07/18 11:55 Neut % (Auto) 75.0 % (50.0-75.0) 10/07/18 11:55 Lymph % (Auto) 18.7 % (20.0-40.0) L 10/07/18 11:55 [place] % (Auto) 5.4 % (0.0-10.0) 10/07/18 11:55 Eos % (Auto) 0.5 % (0.0-4.0) 10/07/18 11:55 Baso % (Auto) 0.4 % (0.0-2.0) 10/07/18 11:55 Neut # (Auto) 9.2 K/uL (1.8-7.0) H 10/07/18 11:55 Lymph # (Auto) 2.3 K/uL (1.0-4.3) 10/07/18 11:55 [place] # (Auto) 0.7 K/uL (0.0-0.8) 10/07/18 11:55 Eos # (Auto) 0.1 K/uL (0.0-0.7) 10/07/18 11:55 Baso # (Auto) 0.0 K/uL (0.0-0.2) 10/07/18 11:55 PT 12.3 Seconds (9.8-13.1) 10/07/18 16:54 INR 1.1 10/07/18 16:54 APTT 28.2 Seconds (25.6-37.1) 10/07/18 16:54 pCO2 37 mm/Hg (35-45) 10/07/18 11:22 pO2 74 mm/Hg (80-100) L 10/07/18 11:22 HCO3 27.3 mmol/L (21-28) 10/07/18 11:22 ABG pH 7.47 (7.35-7.45) H 10/07/18 11:22 ABG Total CO2 28.0 mmol/L (22-28) 10/07/18 11:22 ABG O2 Saturation 100.1 % (95-98) H 10/07/18 11:22 ABG Base Excess 3.1 mmol/L (-2.0-3.0) H 10/07/18 11:22 Slim Test Yes 10/07/18 11:22 ABG Potassium 3.7 mmol/L (3.6-5.2) 10/07/18 11:22 A-a O2 Difference 29.0 mm/Hg 10/07/18 11:22 Sodium 141.0 mmol/L (132-148) 10/07/18 11:22 Chloride 108.0 mmol/L (98-107) H 10/07/18 11:22 Glucose 194 mg/dL (75-110) H 10/07/18 11:22 Lactate 3.1 mmol/L (0.7-2.1) H 10/07/18 11:22 FiO2 21.0 % 10/07/18 11:22 Sodium 137 mmol/l (132-148) 10/09/18 04:25 Potassium 4.6 MMOL/L (3.6-5.0) 10/09/18 04:25 Chloride 103 mmol/L (98-107) 10/09/18 04:25 Carbon Dioxide 25 mmol/L (22-30) 10/09/18 04:25 Anion Gap 14 (10-20) 10/09/18 04:25 BUN 19 mg/dl (9-20) 10/09/18 04:25 Creatinine 0.8 mg/dl (0.8-1.5) 10/09/18 04:25 Est GFR ( Amer) > 60 10/09/18 04:25 Est GFR (Non-Af Amer) > 60 10/09/18 04:25 POC Glucose (mg/dL) 205 mg/dL (65-110) H 10/09/18 11:24 Random Glucose 254 mg/dL (75-110) H 10/09/18 04:25 Lactic Acid 1.4 mmol/L (0.7-2.1) 10/07/18 16:54 Calcium 8.2 mg/dL (8.4-10.2) L 10/09/18 04:25 Total Bilirubin 0.4 mg/dl (0.2-1.3) 10/07/18 11:55 AST 23 U/L (17-59) 10/07/18 11:55 ALT 12 U/L (21-72) L D 10/07/18 11:55 Alkaline Phosphatase 60 U/L (38-126) 10/07/18 11:55 Troponin I < 0.0120 ng/mL (0.00-0.120) 10/07/18 23:45 NT-Pro-B Natriuret Pep 397 pg/ml (0-900) 10/07/18 11:55 Total Protein 6.8 G/DL (6.3-8.2) 10/07/18 11:55 Albumin 3.1 g/dL (3.5-5.0) L 10/07/18 11:55 Globulin 3.7 gm/dL (2.2-3.9) 10/07/18 11:55 Albumin/Globulin Ratio 0.8 (1.0-2.1) L 10/07/18 11:55 Arterial Blood Potassium 3.7 mmol/L (3.6-5.2) 10/07/18 11:22 Urine Color Yellow (YELLOW) 10/07/18 17:14 Urine Clarity Clear (Clear) 10/07/18 17:14 Urine pH 7.0 (5.0-8.0) 10/07/18 17:14 Ur Specific [place] 1.017 (1.003-1.030) 10/07/18 17:14 Urine Protein 100 mg/dL (NEGATIVE) 10/07/18 17:14 Urine Glucose (UA) 50 mg/dL (NEGATIVE) 10/07/18 17:14 Urine Ketones Negative mg/dL (NEGATIVE) 10/07/18 17:14 Urine Blood Negative (NEGATIVE) 10/07/18 17:14 Urine Nitrate Negative (NEGATIVE) 10/07/18 17:14 Urine Bilirubin Negative (NEGATIVE) 10/07/18 17:14 Urine Urobilinogen 0.2-1.0 mg/dL (0.2-1.0) 10/07/18 17:14 Ur Leukocyte Esterase Neg [place]/uL (Negative) 10/07/18 17:14 Urine RBC (Auto) 2 /hpf (0-3) 10/07/18 17:14 Urine Microscopic WBC < 1 /hpf (0-5) 10/07/18 17:14 Attending/Attestation - Attestation I have personally seen and examined this patient.: Yes I have fully participated in the care of the patient.: Yes I have reviewed all pertinent clinical information, including history, physical exam and plan: Yes Notes (Text): 10/09/18 13:44 Patient seen and examined with resident. Case discussed and agreed with assessment and plan. Patient discharged in stable condition.
[2018-10-09] MEDS ORDERED: Azithromycin 500 MG in Sodium Chloride 0.9% 250 ML IVPB SCH (09:00)
[2018-10-09] MEDS: Enoxaparin 40 mg Syringe SC SCH (09:03)
[2018-10-09] MEDS: MethylPREDNISolone 40 mg Vial IVP SCH (09:04)
[2018-10-09 15:55] VITALS: BP 138/61; PULSE 86; RESP 20; TEMP 98.3; O2SAT 95
== END 2018-10-09 18:00 | disposition home or self-care (01) ==
LOC: H.ER 11:00 → H.ERHOLD 14:50 → H.TEL 20:44
DX: J44.1 Chronic obstructive pulmonary disease with (acute) exacerbation (principal); Z86.711 Personal history of pulmonary embolism; Z87.891 Personal history of nicotine dependence; E78.00 Pure hypercholesterolemia, unspecified; I11.0 Hypertensive heart disease with heart failure; I50.9 Heart failure, unspecified; E11.9 Type 2 diabetes mellitus without complications; L40.9 Psoriasis, unspecified; Z79.84 Long term (current) use of oral hypoglycemic drugs; I87.8 Other specified disorders of veins; D50.9 Iron deficiency anemia, unspecified; Z59.0 Homelessness; M79.89 Other specified soft tissue disorders
CPT/HCPCS: 36415; 71045; 80048; 80053; 81003; 82803; 82948; 83605; 83880; 84484; 85025; 85027; 85610; 85730; 93005; 94640; 96365; 96372; 96375; 99285; G0378; J0456; J1650; J2920; J2930; J7050

== ENCOUNTER 2018-10-19 16:26 | Inpatient (IN) | payer SELFPAY ==
[2018-10-19] MEDS ORDERED: Albuterol-Ipratrop 3 mg / 0.5 (3 ml) UD INH STA (17:15)
[2018-10-19] MEDS ORDERED: Albuterol-Ipratrop 3 mg / 0.5 (3 ml) UD ONE ×2 (17:25→20:09)
--- NOTE | 2018-10-19 17:25 | ED PDOC ---
HPI: SOB/CHF/COPD Time Seen by Provider: 10/19/18 17:04 Chief Complaint (Nursing): Chest Pain Chief Complaint (Provider): Shortness of Breath, Chest Pain History Per: Patient History/Exam Limitations: no limitations Onset/Duration Of Symptoms: Days (x2) Current Symptoms Are (Timing): Still Present Additional Complaint(s): 68 year old male well known to the ED presents today stating that he has had shortness of breath for the past two days associated with some chest pain onset earlier today. Denies other complaints. PMD: none provided Past Medical History Reviewed: Historical Data, Nursing Documentation, Vital Signs Vital Signs: Last Vital Signs Temp 98.8 F 10/19/18 16:42 Pulse 116 H 10/19/18 16:42 Resp 18 10/19/18 16:42 BP 127/56 L 10/19/18 16:42 Pulse Ox 97 10/19/18 16:42 - Medical History PMH: Asthma, CHF, COPD, Diabetes, HTN, Hypercholesterolemia, Pneumonia, Pulmonary Embolism Denies: HIV, Chronic Kidney Disease - Surgical History Other surgeries: IVC filter - Family History Family History: States: Unknown Family Hx, [place], Diabetes - Social History Current smoker - smoking cessation education provided: No Ex-Smoker (has not smoked in the last 12 months): Yes Alcohol: None Drugs: Denies - Immunization History Hx Tetanus Toxoid Vaccination: No Hx Influenza Vaccination: No Hx Pneumococcal Vaccination: No - Home Medications Home Medications: Ambulatory Orders Medication Instructions Recorded Albuterol HFA [Ventolin HFA 90 2 puff INH Q4 PRN #1 inhaler 10/09/18 mcg/actuation (8 g)] Fluticasone/Salmeterol 500/50 1 puff IH Q12 #1 puff 10/09/18 [Advair Diskus 500/50] metFORMIN [glucOPHAGE] 500 mg PO BIDWM #60 tab 10/09/18 Ammonium Lactate 12% [Lac-Hydrin 1 applic TOP TID #1 bottle 10/21/18 12% Lotion (225 g)] Methylprednisolone [Medrol Dose 4 mg PO ASDIR #21 mg 10/21/18 Pack (21 tabs)] - Allergies Allergies/Adverse Reactions: Allergies Allergy/AdvReac Type Severity Reaction Status Date / Time No Known Allergies Allergy Verified 09/20/18 12:06 Review of Systems ROS Statement: Except As Marked, All Systems Reviewed And Found Negative Cardiovascular: Positive for: Chest Pain Respiratory: Positive for: Shortness of Breath Physical Exam - Reviewed Nursing Documentation Reviewed: Yes Vital Signs Reviewed: Yes - Physical Exam Appears: Positive for: No Acute Distress Head Exam: Positive for: ATRAUMATIC, NORMOCEPHALIC Skin: Positive for: Warm (and dry with chronic skin changes) Eye Exam: Positive for: Normal appearance Neck: Positive for: Normal, Painless ROM, Supple Cardiovascular/Chest: Positive for: Regular Rate, Rhythm, Chest Non Tender Respiratory: Positive for: Wheezing (bilateral). Negative for: Accessory Muscle Use, Respiratory Distress Gastrointestinal/Abdominal: Positive for: Normal Exam, Soft. Negative for: Tenderness Back: Positive for: Normal Inspection Extremity: Positive for: Normal ROM (all extremities) Neurological/Psych: Positive for: Awake, Alert, Oriented (x3), Gait (steady). N egative for: Motor/Sensory Deficits, Facial Droop - Laboratory Results Result Diagrams: 10/21/18 05:05 10/21/18 05:05 - ECG O2 Sat by Pulse Oximetry: 97 (RA) Pulse Ox Interpretation: Normal - Progress Re-evaluation Time: 18:00 Condition: Unchanged Medical Decision Making Medical Decision Making: Time: 171 Initial Impression: wheezing Initial Plan: --EKG --CMP --Trop I --CBC with differential --PTT / PT --CXR --Duoneb 3ml INH --SOLU-medrol 125mg IVP --Blood culture --Peak flow pre/post Scribe Attestation: Documented by Heather Zuleta, acting as a scribe for Ana Baxter MD. Provider Scribe Attestation: All medical record entries made by the Scribe were at my direction and person ally dictated by me. I have reviewed the chart and agree that the record accurately reflects my personal performance of the history, physical exam, medical decision making, and the department course for this patient. I have also personally directed, reviewed, and agree with the discharge instructions and disposition. Disposition - Clinical Impression Clinical Impression: COPD exacerbation - Disposition Disposition Time: 18:50 Condition: STABLE - Pt Status Changed To: Hospital Disposition Of: Inpatient - Admit Certification Admit to Inpatient:: After my assessment, the patient will require hospitalization for at least two midnights. This is because of the severity of symptoms shown, intensity of services needed, and/or the medical risk in this patient being treated as an outpatient. - POA Present On Arrival: None
[2018-10-19 17:55] LABS: BASO # 0.1 K/uL (0.0-0.2); BASO % 0.8 % (0.0-2.0); EOS # 0.3 K/uL (0.0-0.7); EOS % 2.8 % (0.0-4.0); HEMOGLOBIN 8.8 g/dL (12.0-18.0); LYMPH # 2.9 K/uL (1.0-4.3); LYMPH % 30.1 % (20.0-40.0); MEAN CELL VOLUME 71.8 fl (80.0-94.0); MEAN CORPUSCULAR HEMOGLOBIN 23.4 pg (27.0-31.0); MEAN CORPUSCULAR HGB CONC 32.6 g/dL (33.0-37.0); MONO % 11.1 % (0.0-10.0); NEUT # 5.2 K/uL (1.8-7.0); NEUT % 55.2 % (50.0-75.0); NRBC % 0.1 % (0.0-0.0); RBC 3.75 Mil/uL (4.40-5.90); RED CELL DISTRIBUTION WIDTH 20.7 % (11.5-14.5); WHITE BLOOD COUNT 9.5 K/uL (4.8-10.8)
[2018-10-19 18:00] LABS: INR 1.1; PROTHROMBIN TIME 12.5 Seconds (9.8-13.1)
--- NOTE | 2018-10-19 18:09 | RAD ---
Date of service: 10/19/2018 HISTORY: SOB COMPARISON: 10/07/2018, and 08/10/[address] chest without contrast report 12/15/[address] angio chest 07/17/2018 TECHNIQUE: 1 view obtained. FINDINGS: LUNGS: Left basal discoid atelectasis and/or [id number] No interval consolidation. PLEURA: No significant pleural effusion identified, no pneumothorax apparent. CARDIOVASCULAR: There is presence of aortic atherosclerotic calcification on x-ray. Minimal cardiomegaly-similar . Possible mild pulmonary venous congestion. There is relative prominence to the right hilar expected soft tissues this appearance is probably similar to the 08/10/2018 chest x-ray. Study also appears probably slightly rotated towards the left likely accentuating right hilar pulmonary vascularity here. The recent angio CT showed no are right hilar pathology here OSSEOUS STRUCTURES: No significant abnormalities. VISUALIZED UPPER ABDOMEN: Normal. OTHER FINDINGS: None. IMPRESSION: No interval consolidation. Discoid atelectasis and/or scarring at the left lung base-unchanged. Current relative prominence of the right hilar anatomy probably due to slight rotation towards the left given the unremarkabe right hilar anatomy referenced on the angio CT study. Possible mild pulmonary venous congestion. Minimal cardiomegaly-appearing similar.
[2018-10-19] MEDS ORDERED: Sodium Chloride 0.9% 500 ML IV STA (18:10)
[2018-10-19 18:18] LABS: ALB/GLOB RATIO 0.9 (1.0-2.1); ALBUMIN 3.7 g/dL (3.5-5.0); ALT/SGPT < 6 U/L (21-72); AST/SGOT 71 U/L (17-59); BLOOD UREA NITROGEN 18 mg/dl (9-20); CALCIUM 8.5 mg/dL (8.4-10.2); GFR NON-AFRICAN AMERICAN 55
[2018-10-19] MEDS ORDERED: Sodium Chloride 3% for Inhalation 4 ML VIAL.NEB IH PRN (19:32)
[2018-10-19] MEDS ORDERED: Albuterol HFA 90 mcg/actuation (8 g) INH PRN (19:53)
[2018-10-19] MEDS ORDERED: Glucagon Recombinant 1 mg Inj IM PRN (19:56)
[2018-10-19] MEDS ORDERED: Dextrose 50% SYRINGE Inj (50 ml) IV PRN (19:56)
--- NOTE | 2018-10-19 19:58 | CP.PCM.HP ---
<Kaila Ramires - Last Filed: 10/19/18 22:09> History of Present Illness - History of Present Illness History of Present Illness: 68 yo male with PMH of COPD, NIDDM2, HTN, PE w IVC filter and psoriasis presented to [facility] for evaluation of progressively worsening cough, dyspnea and chest pain for 3 days. Reports worsening cough, increased yellow sputum production and associated sore throat. Left chest pain, radiating to back, intermittent, changes with respiration, associated with dizziness and palpitations. Denies fever/chills, headaches, changes in vision, hemoptysis, N/V/D/C, urinary symptoms. Denies any blood in urine or stool in last 3 days/ but reporting seeing some blood in stool 3-4 days ago + Chronic b/l Ariana pain and edema making difficult to walk for the patient. ROS: 12 points reviewed, found to be negative unless otherwise noted in HPI. PMD: None PMH: COPD, NIDDM2, HTN, PE s/p IVC filter-2014 (not on anticoagulation), hx of retroperitoneal hematoma (2014) and psoriasis Medications: none Allergies: NKDA PSH: IVC filter FH: denies SH: former smoker (30 pack years), former Etoh abuse (last drink in 04/2017) denies drug use; is homeless, sometimes sleeps in his friends house ER Course: Afebrile, HR 116, RR 18, BP 127/56, Spo2 97% NC CBC: h/h: 8.8/26.9 Elevated d.dimer CMP: no significant abnormality EKG: sinus tachy CXR:+ congestion, see official read S/p Duoneb S/p Methypred 125 and IVF Present on Admission - Present on Admission Any Indicators Present on Admission: No History of DVT/PE: Yes Review of Systems - Review of Systems Systems not reviewed;Unavailable: Respiratory Distress - Constitutional Constitutional: absent: Excessive Sweating - EENT Eyes: absent: Blurred Vision Ears: absent: Decreased Hearing Nose/Mouth/Throat: absent: Nasal Congestion - Cardiovascular Cardiovascular: Chest Pain, Dyspnea, Dyspnea on Exertion. absent: Diaphoresis - Respiratory Respiratory: Cough, Dyspnea, Dyspnea on Exertion, Wheezing. absent: Hemoptysis - Gastrointestinal Gastrointestinal: absent: Abdominal Pain, Coffee Ground Emesis, Hematemesis, Loose Stools, Melena, Nausea, Vomiting - Genitourinary Genitourinary: absent: Difficulty Urinating - Musculoskeletal Musculoskeletal: absent: Abnormal Gait - Integumentary Integumentary: absent: Bleeding Lesions, Skin Ulcer - Neurological Neurological: Dizziness. absent: Abnormal Gait, Numbness, Headaches, Memory Loss, Sensory Deficit, Syncope, Tremor - Psychiatric Psychiatric: absent: Anxiety - Hematologic/Lymphatic Hematologic: absent: Easy Bleeding Past Patient History - Infectious Disease Hx of Infectious Diseases: None - Tetanus Immunizations Tetanus Immunization: Unknown - Past Medical History & Family History Past Medical History?: Yes - Past Social History Alcohol: None Drugs: Denies - CARDIAC Hx Congestive Heart Failure: Yes Hx Hypercholesterolemia: Yes Hx Hypertension: Yes - PULMONARY Hx Asthma: Yes Hx Chronic Obstructive Pulmonary Disease (COPD): Yes Hx Pneumonia: Yes Hx Pulmonary Embolism: Yes - NEUROLOGICAL Hx Neurological Disorder: Yes - HEENT Hx HEENT Problems: No - RENAL Hx Chronic Kidney Disease: No - ENDOCRINE/METABOLIC Hx Endocrine Disorders: Yes - HEMATOLOGICAL/ONCOLOGICAL Hx Human Immunodeficiency Virus (HIV): No - INTEGUMENTARY Hx Dermatological Problems: Yes Hx Eczema: Yes - MUSCULOSKELETAL/RHEUMATOLOGICAL Hx Musculoskeletal Disorders: No Hx Falls: No - GASTROINTESTINAL Hx Gastrointestinal Disorders: Yes Other/Comment: GI bleeding - GENITOURINARY/GYNECOLOGICAL Hx Genitourinary Disorders: No - PSYCHIATRIC Hx Psychophysiologic Disorder: No Hx Substance Use: No - SURGICAL HISTORY Hx Surgeries: Yes Other/Comment: IVC Filter - ANESTHESIA Hx Anesthesia: Yes Hx Anesthesia Reactions: No Hx Malignant Hyperthermia: No Meds Allergies/Adverse Reactions: Allergies Allergy/AdvReac Type Severity Reaction Status Date / Time No Known Allergies Allergy Verified 09/20/18 12:06 Physical Exam - Constitutional Appears: No Acute Distress - Head Exam Head Exam: ATRAUMATIC, NORMAL INSPECTION, NORMOCEPHALIC - Eye Exam Eye Exam: EOMI, Normal appearance, PERRL Pupil Exam: NORMAL ACCOMODATION - ENT Exam ENT Exam: Mucous Membranes Moist - Neck Exam Neck exam: Positive for: Normal Inspection - Respiratory Exam Respiratory Exam: Decreased Breath Sounds, Rales, Wheezes, Respiratory Distress (mild), Stridor. absent: Accessory Muscle Use - Cardiovascular Exam Cardiovascular Exam: Tachycardia, REGULAR RHYTHM, +S1, +S2 - GI/Abdominal Exam GI & Abdominal Exam: Normal Bowel Sounds, Soft. absent: Distended, Guarding, Tenderness - Extremities Exam Additional comments: diffuse hyperkeratotic psoriatic lesions in LE, extensive venous stasis skin changes b/l - Back Exam Back exam: absent: CVA tenderness (L), CVA tenderness (R) - Neurological Exam Neurological exam: Alert, Oriented x3 - Psychiatric Exam Psychiatric exam: Normal Affect - Skin Additional comments: diffuse psoriatic lesions in b/l upper and lower extremity Results - Vital Signs Recent Vital Signs: Last Vital Signs Temp 98.8 F 10/19/18 16:42 Pulse 106 H 10/19/18 19:01 Resp 19 10/19/18 19:01 BP 110/67 10/19/18 19:01 Pulse Ox 99 10/19/18 19:01 - Labs Result Diagrams: 10/19/18 17:49 10/19/18 17:49 Labs: Laboratory Results - last 24 hr 10/19/18 10/19/18 10/19/18 17:49 17:49 17:49 WBC 9.5 RBC 3.75 L Hgb 8.8 L Hct 26.9 L MCV 71.8 L MCH 23.4 L MCHC 32.6 L RDW 20.7 H Plt Count 308 MPV 8.0 Neut % (Auto) 55.2 Lymph % (Auto) 30.1 [place] % (Auto) 11.1 H Eos % (Auto) 2.8 Baso % (Auto) 0.8 Neut # (Auto) 5.2 Lymph # (Auto) 2.9 [place] # (Auto) 1.0 H Eos # (Auto) 0.3 Baso # (Auto) 0.1 PT 12.5 INR 1.1 APTT 29.0 Sodium 137 Potassium 5.1 H Chloride 102 Carbon Dioxide 26 Anion Gap 14 BUN 18 Creatinine 1.3 Est GFR ( Amer) > 60 Est GFR (Non-Af Amer) 55 Random Glucose 75 Calcium 8.5 Total Bilirubin 1.0 AST 71 H D ALT < 6 L D Alkaline Phosphatase 85 Troponin I 0.0120 Total Protein 7.6 Albumin 3.7 Globulin 3.9 Albumin/Globulin Ratio 0.9 L Assessment & Plan - Assessment and Plan (Free Text) Assessment: A/P: 67 y/o male with a PMHx of COPD, HTN, NIDDM2, PE (w IVC filter) and Psoriasis admitted for Acute COPD exacerbation and Chest pain. Acute COPD Exacerbation - CXR reviewed - Duo-neb Q6H lovely - solu-medrol 60mg IV Q12H - Azithromycin 500mg daily PO - Resume Advair - Supplemental O2 via NC PRN. Keep Spo2 > 92% Chest pain, R/o ACS or PE - Trop x 1 negative - EKG reviewed - D/dimer mildly elevated, elevated in past as well/ PE less likely - F/u Trop x 2 - F/u LEs doppler u/s - V/Q Scan ordered - No lovenox for now (no current bleeding but reports possible blood in stool a nd few drops in urine last week) Microcytic Anemia of Unknown Etiology - Chronic - Continue monitor NIDDM2 - Hold metformin 500mg BID - hypoglycemic protocol - Sliding scale - Accuchecks ACHS HTN - Controlled - Monitor BP Prophylaxis - No lovenox for now (no current bleeding but reports possible blood in stool and few drops in urine last week) Diet - heart healthy/moderate carbohydrate diet Code status - full code Case discussed with Dr. Fernandes, agrees with plan <Lida Fernandes - Last Filed: 10/20/18 15:04> Results - Vital Signs Recent Vital Signs: Last Vital Signs Temp 97.9 F 10/20/18 11:56 Pulse 105 H 10/20/18 11:56 Resp 20 10/20/18 11:56 BP 150/70 10/20/18 11:56 Pulse Ox 99 10/20/18 11:56 - Labs Result Diagrams: 10/20/18 06:00 10/20/18 06:00 Labs: Laboratory Results - last 24 hr 10/19/18 10/19/18 10/19/18 17:49 17:49 17:49 WBC 9.5 RBC 3.75 L Hgb 8.8 L Hct 26.9 L MCV 71.8 L MCH 23.4 L MCHC 32.6 L RDW 20.7 H Plt Count 308 MPV 8.0 Neut % (Auto) 55.2 Lymph % (Auto) 30.1 [place] % (Auto) 11.1 H Eos % (Auto) 2.8 Baso % (Auto) 0.8 Neut # (Auto) 5.2 Lymph # (Auto) 2.9 [place] # (Auto) 1.0 H Eos # (Auto) 0.3 Baso # (Auto) 0.1 PT 12.5 INR 1.1 APTT 29.0 D-Dimer, Quantitative 432 H Sodium 137 Potassium 5.1 H Chloride 102 Carbon Dioxide 26 Anion Gap 14 BUN 18 Creatinine 1.3 Est GFR ( Amer) > 60 Est GFR (Non-Af Amer) 55 POC Glucose (mg/dL) Random Glucose 75 Calcium 8.5 Total Bilirubin 1.0 AST 71 H D ALT < 6 L D Alkaline Phosphatase 85 Troponin I 0.0120 NT-Pro-B Natriuret Pep Total Protein 7.6 Albumin 3.7 Globulin 3.9 Albumin/Globulin Ratio 0.9 L 10/19/18 10/20/18 10/20/18 21:47 00:03 05:48 WBC RBC Hgb Hct MCV MCH MCHC RDW Plt Count MPV Neut % (Auto) Lymph % (Auto) [place] % (Auto) Eos % (Auto) Baso % (Auto) Neut # (Auto) Lymph # (Auto) [place] # (Auto) Eos # (Auto) Baso # (Auto) PT INR APTT D-Dimer, Quantitative Sodium Potassium Chloride Carbon Dioxide Anion Gap BUN Creatinine Est GFR ( Amer) Est GFR (Non-Af Amer) POC Glucose (mg/dL) 169 H 215 H Random Glucose Calcium Total Bilirubin AST ALT Alkaline Phosphatase Troponin I < 0.0120 NT-Pro-B Natriuret Pep Total Protein Albumin Globulin Albumin/Globulin Ratio 10/20/18 10/20/18 10/20/18 06:00 06:00 11:14 WBC 5.9 RBC 3.96 L Hgb 9.3 L Hct 28.7 L MCV 72.5 L MCH 23.5 L MCHC 32.4 L RDW 20.1 H Plt Count 306 MPV 7.9 Neut % (Auto) 82.1 H Lymph % (Auto) 15.4 L [place] % (Auto) 2.4 Eos % (Auto) 0.0 Baso % (Auto) 0.1 Neut # (Auto) 4.9 Lymph # (Auto) 0.9 L [place] # (Auto) 0.1 Eos # (Auto) 0.0 Baso # (Auto) 0.0 PT INR APTT D-Dimer, Quantitative Sodium 140 Potassium 4.2 Chloride 102 Carbon Dioxide 25 Anion Gap 17 BUN 19 Creatinine 1.2 Est GFR ( Amer) > 60 Est GFR (Non-Af Amer) > 60 POC Glucose (mg/dL) 291 H Random Glucose 198 H Calcium 8.8 Total Bilirubin AST ALT Alkaline Phosphatase Troponin I < 0.0120 NT-Pro-B Natriuret Pep 672 Total Protein Albumin Globulin Albumin/Globulin Ratio Attending/Attestation - Attestation I have personally seen and examined this patient.: Yes I have fully participated in the care of the patient.: Yes I have reviewed all pertinent clinical information: Yes Notes (Text): 10/20/18 15:04 Agree with findings and plan as above.
[2018-10-19] MEDS: Albuterol-Ipratrop 3 mg / 0.5 (3 ml) UD INH SCH (20:29)
[2018-10-19] MEDS ORDERED: methylPREDNISolone 60 MG in Sodium Chloride 0.9% 50 ML IVPB SCH (21:00)
[2018-10-19] MEDS: Fluticasone-Salmeterol 500-50mcg Diskus IH SCH (21:42)
[2018-10-19] MEDS ORDERED: Insulin Regular 100 units/ml ONE (21:50)
[2018-10-19] MEDS: Insulin Lispro (humaLOG) 100 Units/ml Inj SC SCH (22:00)
[2018-10-19 22:28] VITALS: BMI 33.1
[2018-10-19] MEDS ORDERED: Sodium Chloride 0.9% 500 ML IV SCH (23:45)
[2018-10-19] MEDS ORDERED: Sodium Chloride 0.9% 50 ML IV ONE (23:54)
[2018-10-19] MEDS ORDERED: Iodixanol 320 MG/ML 100 ML BOTTLE IV ONE (23:54)
[2018-10-20] MEDS ORDERED: Albuterol-Ipratrop 3 mg / 0.5 (3 ml) UD ONE (02:48)
[2018-10-20] MEDS: Albuterol-Ipratrop 3 mg / 0.5 (3 ml) UD INH SCH ×4 (02:52→19:23)
[2018-10-20] MEDS: Insulin Lispro (humaLOG) 100 Units/ml Inj SC SCH ×4 (07:01→22:05)
[2018-10-20 07:06] LABS: BASO % 0.1 % (0.0-2.0); HEMOGLOBIN 9.3 g/dL (12.0-18.0); LYMPH # 0.9 K/uL (1.0-4.3); LYMPH % 15.4 % (20.0-40.0); MEAN CELL VOLUME 72.5 fl (80.0-94.0); MEAN CORPUSCULAR HEMOGLOBIN 23.5 pg (27.0-31.0); MEAN CORPUSCULAR HGB CONC 32.4 g/dL (33.0-37.0); MEAN PLATELET VOLUME 7.9 fl (7.2-11.7); MONO # 0.1 K/uL (0.0-0.8); MONO % 2.4 % (0.0-10.0); NEUT # 4.9 K/uL (1.8-7.0); NEUT % 82.1 % (50.0-75.0); RBC 3.96 Mil/uL (4.40-5.90); RED CELL DISTRIBUTION WIDTH 20.1 % (11.5-14.5); WHITE BLOOD COUNT 5.9 K/uL (4.8-10.8)
[2018-10-20 07:17] LABS: B-TYPE NATRIURETIC PEPTIDE 672 pg/ml (0-900)
[2018-10-20 07:22] LABS: BLOOD UREA NITROGEN 19 mg/dl (9-20); CALCIUM 8.8 mg/dL (8.4-10.2); GFR NON-AFRICAN AMERICAN > 60
--- NOTE | 2018-10-20 08:13 | CARD ---
APPROVED REPORT Date of service: 10/19/2018 EKG Measurement Heart [id number] <Conclusion> Sinus tachycardia Nonspecific ST abnormality Abnormal ECG
[2018-10-20] MEDS: Fluticasone-Salmeterol 500-50mcg Diskus IH SCH ×2 (08:55→22:04)
[2018-10-20] MEDS ORDERED: Enoxaparin 40 mg Syringe SC SCH (09:00)
--- NOTE | 2018-10-20 09:32 | US ---
Date of service: 10/19/2018 PROCEDURE: Bilateral lower extremity venous duplex Doppler. HISTORY: elevated d.dimer/Chronic dyspnea COMPARISON: None available. TECHNIQUE: Bilateral common femoral, superficial femoral, popliteal and posterior tibial veins were evaluated. Flow was assessed with color Doppler, compressibility, assessment of phasic flow and augmentation response. FINDINGS: COMMON FEMORAL VEIN: Right CFV: Unremarkable. Left CFV: Unremarkable. SUPERFICIAL FEMORAL VEIN: Right SFV: Unremarkable. Left SFV: Unremarkable. POPLITEAL VEIN: Right Popliteal: Unremarkable. Left Popliteal: Unremarkable. POSTERIOR TIBIAL VEIN: Right PTV: Unremarkable. Left PTV: Limited visualization. OTHER FINDINGS: None. IMPRESSION: No evidence of deep venous thrombosis in the right or left lower extremity. The preliminary findings for this examination were reported by [facility] at 11:24 p.m. on 10/19/2018. There is concurrence of this report with the preliminary findings.
--- NOTE | 2018-10-20 11:04 | CT ---
Date of service: 10/19/2018 PROCEDURE: CT Chest with contrast (Pulmonary Angiogram) HISTORY: Mildly elevated d.dimer/Tachy/Chronic dyspnea COMPARISON: 07/17/2018 TECHNIQUE: Axial computed tomography images were obtained of the chest in the pulmonary arterial phase of enhancement. Coronal and sagittal reformatted images were created and reviewed. Intravenous contrast dose: 95 mL Visipaque 320 Radiation dose: Total exam DLP = 381.85 mGy-cm. This CT exam was performed using one or more of the following dose reduction techniques: Automated exposure control, adjustment of the mA and/or kV according to patient size, and/or use of iterative reconstruction technique. FINDINGS: PULMONARY ARTERIES: Unremarkable. No pulmonary embolism. AORTA: No acute findings. No thoracic aortic aneurysm. There is atherosclerotic calcification of the thoracic aorta. LUNGS: There is centrilobular pulmonary emphysema. There are subpleural blebs at the right apex. There is no infiltrate. There is no pulmonary mass identified. There is minimal bilateral lower lobe linear scar/atelectasis. PLEURAL SPACES: Unremarkable. No effusion or pneumothorax. HEART: Unremarkable. No cardiomegaly. No significant pericardial effusion. There is mild dilatation of the main pulmonary artery to a diameter of 3.4 cm. This may correlate with pulmonary arterial hypertension. LYMPH NODES: No lymphadenopathy. BONES, CHEST WALL: Unremarkable. No fracture or destructive lesion OTHER FINDINGS: Unremarkable. IMPRESSION: No evidence of pulmonary embolism. Centrilobular pulmonary emphysema. Mild dilatation of main pulmonary artery. The preliminary findings for this examination were reported by [facility] at 1:23 a.m. on 10/20/2018. There is concurrence of this report with the preliminary findings.
--- NOTE | 2018-10-20 13:15 | CP.PCM.PN ---
Subjective - Date & Time of Evaluation Date of Evaluation: 10/20/18 Time of Evaluation: 09:56 - Subjective Subjective: Patient was seen and examined this Am at bedside. Patient was sitting upright in chair with intermittent coughing. He denied any f/c/cp or sob. Objective - Vital Signs/Intake and Output Vital Signs (last 24 hours): Temp Pulse Resp BP Pulse Ox 97.9 F 105 H 20 150/70 99 10/20/18 11:56 10/20/18 11:56 10/20/18 11:56 10/20/18 11:56 10/20/18 11:56 - Medications Medications: Current Medications Acetaminophen (Tylenol 325mg Tab) 650 mg PO Q6 PRN PRN Reason: Fever >100.4 F Albuterol (Ventolin Hfa 90 Mcg/Actuation (8 G)) 2 puff INH Q4 PRN PRN Reason: sob Albuterol/Ipratropium (Duoneb 3 Mg/0.5 Mg (3 Ml) Ud) 3 ml INH RQ6 [facility]OV[facility] Last Admin: 10/20/18 08:10 Dose: 3 ml Azithromycin (Zithromax) 500 mg PO DAILY LOVELY; Protocol Last Admin: 10/20/18 08:56 Dose: 500 mg Dextrose (Dextrose 50% Inj) 0 ml IV STAT PRN; Protocol PRN Reason: Hypoglycemia Protocol Dextrose (Glutose 15) 0 gm PO ONCE PRN; Protocol PRN Reason: Hypoglycemia Protocol Enoxaparin Sodium (Lovenox) 40 mg SC DAILY LOVELY; Protocol Furosemide (Lasix) 40 mg IV BID [facility] Last Admin: 10/19/18 20:33 Dose: 40 mg Glucagon (Glucagen Diagnostic Kit) 0 mg IM STAT PRN; Protocol PRN Reason: Hypoglycemia Protocol Sodium Chloride (Sodium Chloride 0.9%) 500 mls @ 125 mls/hr IV .Q4H LOVELY Last Admin: 10/20/18 01:58 Dose: Not Given Ibuprofen (Motrin Tab) 400 mg PO Q6 PRN PRN Reason: Pain, moderate (4-7) Insulin Human Lispro (Humalog) 0 units SC ACHS LOVELY; Protocol Last Admin: 10/20/18 12:40 Dose: 4 units Lactic Acid (Lac-Hydrin 12% Lotion (225 G)) 1 applic TOP TID [facility] Last Admin: 10/20/18 08:55 Dose: 1 applic Metformin HCl (Glucophage) 500 mg PO BIDWM [facility] Methylprednisolone (Solu-Medrol) 60 mg IV Q12 [facility] Last Admin: 10/20/18 08:54 Dose: 60 mg Ondansetron HCl (Zofran Inj) 4 mg IVP Q6 PRN PRN Reason: Nausea/Vomiting Fluticasone/Salmeterol (Advair Diskus 500/50) 1 puff IH Q12 [facility] Last Admin: 10/20/18 08:55 Dose: 1 puff - Labs Labs: 10/20/18 06:00 10/20/18 06:00 PT 12.5 Seconds (9.8-13.1) 10/19/18 17:49 INR 1.1 10/19/18 17:49 APTT 29.0 Seconds (25.6-37.1) 10/19/18 17:49 - Constitutional Appears: Non-toxic - Head Exam Head Exam: ATRAUMATIC, NORMAL INSPECTION - ENT Exam ENT Exam: Mucous Membranes Moist - Respiratory Exam Respiratory Exam: Decreased Breath Sounds, Rhonchi Additional comments: scattered rhonchi - Cardiovascular Exam Cardiovascular Exam: REGULAR RHYTHM, +S1, +S2 - GI/Abdominal Exam GI & Abdominal Exam: Soft. absent: Guarding, Rigid, Tenderness - Extremities Exam Extremities Exam: Calf Tenderness Additional comments: hyperpigmentation of b/l extremities with scaling with tree-bark like appearance; nontender - Neurological Exam Neurological Exam: Alert, Awake, Oriented x3 - Psychiatric Exam Psychiatric exam: Normal Mood - Skin Skin Exam: Dry Assessment and Plan - Assessment and Plan (Free Text) Assessment: A/P: 67 y/o M with a PMHx of COPD, HTN, NIDDM2, PE (w IVC filter) and Psoriasis admitted for Acute COPD exacerbation and Chest pain. 1. Acute COPD Exacerbation - CXR: no interval consolidation; discoid atelectasis and/or scarring at left lung base-unchanged. Chest CT: no evidence of PE; centrilobular pulmonary emphysema; mild dilatation of main pulmonary artery. -FU physical therapy eval - C/w Duo-neb Q6H lovely - solu-medrol 60mg IV Q12H - C/w Azithromycin 500mg daily PO - Resume Advair - Supplemental O2 via NC PRN. Keep Spo2 > 92% 2. Chest pain (acute) -PE & ACS ruled out - Trop x 2 negative - EKG: sinus tachy @ rate of 121 - D/dimer: 432 - no evidence of DVT on lower extremity doppler - No lovenox for now (no current bleeding but reports possible blood in stool and few drops in urine last week) 3. Microcytic Anemia of Unknown Etiology (chronic) - Continue monitor 4. NIDDM2 - Hold metformin 500mg BID - hypoglycemic protocol - Sliding scale - Accuchecks ACHS HTN (chronic, controlled) - Monitor BP 5. Prophylaxis - No lovenox for now (no current bleeding but reports possible blood in stool and few drops in urine last week) Diet - heart healthy/moderate carbohydrate diet Code status - full code
[2018-10-21] MEDS: Albuterol-Ipratrop 3 mg / 0.5 (3 ml) UD INH SCH ×3 (00:59→13:56)
[2018-10-21 05:28] LABS: BASO % 0.1 % (0.0-2.0); HEMOGLOBIN 8.6 g/dL (12.0-18.0); LYMPH # 0.9 K/uL (1.0-4.3); LYMPH % 7.8 % (20.0-40.0); MEAN CELL VOLUME 71.5 fl (80.0-94.0); MEAN CORPUSCULAR HGB CONC 32.1 g/dL (33.0-37.0); MEAN PLATELET VOLUME 7.8 fl (7.2-11.7); MONO # 0.4 K/uL (0.0-0.8); MONO % 3.2 % (0.0-10.0); NEUT # 9.9 K/uL (1.8-7.0); NEUT % 88.9 % (50.0-75.0); PLATELET COUNT 293 K/uL (130-400); RBC 3.75 Mil/uL (4.40-5.90); RED CELL DISTRIBUTION WIDTH 19.9 % (11.5-14.5)
[2018-10-21 05:34] LABS: WHITE BLOOD COUNT 11.1 K/uL (4.8-10.8)
[2018-10-21 06:19] LABS: BLOOD UREA NITROGEN 19 mg/dl (9-20); GFR NON-AFRICAN AMERICAN > 60
[2018-10-21] MEDS: Insulin Lispro (humaLOG) 100 Units/ml Inj SC SCH ×3 (06:42→17:18)
[2018-10-21 09:02] LABS: NEUTROPHIL 89 % (42-75); TOTAL CELLS COUNTED 100
[2018-10-21 09:03] LABS: ANISOCYTOSIS SLIGHT; LYMPHOCYTE 8 % (20-50); MONOCYTE 3 % (0-10); PLATELET ESTIMATE NORMAL (NORMAL); POIKILOCYTOSIS SLIGHT
[2018-10-21] MEDS: Fluticasone-Salmeterol 500-50mcg Diskus IH SCH (09:08)
[2018-10-21 15:56] VITALS: BP 132/54; PULSE 105; RESP 18; TEMP 98
--- NOTE | 2018-10-21 17:03 | CP.PCM.DIS ---
<Yris Chandler - Last Filed: 10/21/18 17:09> Provider - Provider Date of Admission: 10/19/18 18:50 Attending physician: Lida Fernandes DO Consults: 10/20/18 04:14 Social Work Referral Routine Comment: FROM SKILLED NURSING Physician Instructions: Reason For Exam: HOMELESS Time Spent in preparation of Discharge (in minutes): 30 Hospital Course - Lab Results Lab Results: Micro Results 10/19/18 17:45 Blood Blood Culture - Preliminary NO GROWTH AFTER 24 HOURS 10/19/18 17:30 Blood Blood Culture - Preliminary NO GROWTH AFTER 24 HOURS Most Recent Lab Values WBC 11.1 K/uL (4.8-10.8) H D 10/21/18 05:05 RBC 3.75 Mil/uL (4.40-5.90) L 10/21/18 05:05 Hgb 8.6 g/dL (12.0-18.0) L 10/21/18 05:05 Hct 26.9 % (35.0-51.0) L 10/21/18 05:05 MCV 71.5 fl (80.0-94.0) L 10/21/18 05:05 MCH 23.0 pg (27.0-31.0) L 10/21/18 05:05 MCHC 32.1 g/dL (33.0-37.0) L 10/21/18 05:05 RDW 19.9 % (11.5-14.5) H 10/21/18 05:05 Plt Count 293 K/uL (130-400) 10/21/18 05:05 MPV 7.8 fl (7.2-11.7) 10/21/18 05:05 Neut % (Auto) 88.9 % (50.0-75.0) H 10/21/18 05:05 Lymph % (Auto) 7.8 % (20.0-40.0) L 10/21/18 05:05 [place] % (Auto) 3.2 % (0.0-10.0) 10/21/18 05:05 Eos % (Auto) 0.0 % (0.0-4.0) 10/21/18 05:05 Baso % (Auto) 0.1 % (0.0-2.0) 10/21/18 05:05 Neut # (Auto) 9.9 K/uL (1.8-7.0) H 10/21/18 05:05 Lymph # (Auto) 0.9 K/uL (1.0-4.3) L 10/21/18 05:05 [place] # (Auto) 0.4 K/uL (0.0-0.8) 10/21/18 05:05 Eos # (Auto) 0.0 K/uL (0.0-0.7) 10/21/18 05:05 Baso # (Auto) 0.0 K/uL (0.0-0.2) 10/21/18 05:05 Neutrophils % (Manual) 89 % (42-75) H 10/21/18 05:05 Lymphocytes % (Manual) 8 % (20-50) L 10/21/18 05:05 Monocytes % (Manual) 3 % (0-10) 10/21/18 05:05 Platelet Estimate Normal (NORMAL) 10/21/18 05:05 Poikilocytosis (manual Slight 10/21/18 05:05 Anisocytosis (manual) Slight 10/21/18 05:05 PT 12.5 Seconds (9.8-13.1) 10/19/18 17:49 INR 1.1 10/19/18 17:49 APTT 29.0 Seconds (25.6-37.1) 10/19/18 17:49 D-Dimer, Quantitative 432 ng/mlDDU (0-230) H 10/19/18 17:49 Sodium 139 mmol/l (132-148) 10/21/18 05:05 Potassium 4.6 MMOL/L (3.6-5.0) 10/21/18 05:05 Chloride 103 mmol/L (98-107) 10/21/18 05:05 Carbon Dioxide 30 mmol/L (22-30) 10/21/18 05:05 Anion Gap 11 (10-20) 10/21/18 05:05 BUN 19 mg/dl (9-20) 10/21/18 05:05 Creatinine 1.0 mg/dl (0.8-1.5) 10/21/18 05:05 Est GFR ( Amer) > 60 10/21/18 05:05 Est GFR (Non-Af Amer) > 60 10/21/18 05:05 POC Glucose (mg/dL) 123 mg/dL (65-110) H 10/21/18 16:38 Random Glucose 232 mg/dL (75-110) H 10/21/18 05:05 Calcium 9.0 mg/dL (8.4-10.2) 10/21/18 05:05 Total Bilirubin 1.0 mg/dl (0.2-1.3) 10/19/18 17:49 AST 71 U/L (17-59) H D 10/19/18 17:49 ALT < 6 U/L (21-72) L D 10/19/18 17:49 Alkaline Phosphatase 85 U/L (38-126) 10/19/18 17:49 Troponin I < 0.0120 ng/mL (0.00-0.120) 10/20/18 06:00 NT-Pro-B Natriuret Pep 672 pg/ml (0-900) 10/20/18 06:00 Total Protein 7.6 G/DL (6.3-8.2) 10/19/18 17:49 Albumin 3.7 g/dL (3.5-5.0) 10/19/18 17:49 Globulin 3.9 gm/dL (2.2-3.9) 10/19/18 17:49 Albumin/Globulin Ratio 0.9 (1.0-2.1) L 10/19/18 17:49 - Hospital Course Hospital Course: 67 y/o male with a PMHx of COPD, HTN, NIDDM2, PE (w IVC filter) and Psoriasis admitted for Acute COPD exacerbation and Chest pain. Chest CT was negative for PE. Patient seen and examined this morning, breathing comfortably. Patient was tachycardic, noted to be baseline. Patient discharge today. Discharge Exam - Head Exam Head Exam: ATRAUMATIC, NORMAL INSPECTION - Eye Exam Eye Exam: EOMI - ENT Exam ENT Exam: Mucous Membranes Moist - Respiratory Exam Respiratory Exam: Rales, Rhonchi. absent: Respiratory Distress - Cardiovascular Exam Cardiovascular Exam: Tachycardia, +S1, +S2 - GI/Abdominal Exam GI & Abdominal Exam: Normal Bowel Sounds, Soft. absent: Guarding, Rigid, Tenderness - Back Exam Additional comments: chronic venous changes - Neurological Exam Neurological exam: Alert, Oriented x3 - Psychiatric Exam Psychiatric exam: Normal Mood - Skin Skin Exam: Dry Discharge Plan - Discharge Medications Prescriptions: Ammonium Lactate 12% [Lac-Hydrin 12% Lotion (225 g)] 1 applic TOP TID #1 bottle Methylprednisolone [Medrol Dose Pack (21 tabs)] 4 mg PO ASDIR #21 mg - Follow Up Plan Condition: STABLE Disposition: HOME/ ROUTINE <Steve Taylordarek Hussein - Last Filed: 10/21/18 17:38> Provider - Provider Date of Admission: 10/19/18 18:50 Attending physician: Lida Fernandes DO Consults: 10/20/18 04:14 Social Work Referral Routine Comment: FROM SKILLED NURSING Physician Instructions: Reason For Exam: HOMELESS Hospital Course - Lab Results Lab Results: Micro Results 10/19/18 17:45 Blood Blood Culture - Preliminary NO GROWTH AFTER 24 HOURS 10/19/18 17:30 Blood Blood Culture - Preliminary NO GROWTH AFTER 24 HOURS Most Recent Lab Values WBC 11.1 K/uL (4.8-10.8) H D 10/21/18 05:05 RBC 3.75 Mil/uL (4.40-5.90) L 10/21/18 05:05 Hgb 8.6 g/dL (12.0-18.0) L 10/21/18 05:05 Hct 26.9 % (35.0-51.0) L 10/21/18 05:05 MCV 71.5 fl (80.0-94.0) L 10/21/18 05:05 MCH 23.0 pg (27.0-31.0) L 10/21/18 05:05 MCHC 32.1 g/dL (33.0-37.0) L 10/21/18 05:05 RDW 19.9 % (11.5-14.5) H 10/21/18 05:05 Plt Count 293 K/uL (130-400) 10/21/18 05:05 MPV 7.8 fl (7.2-11.7) 10/21/18 05:05 Neut % (Auto) 88.9 % (50.0-75.0) H 10/21/18 05:05 Lymph % (Auto) 7.8 % (20.0-40.0) L 10/21/18 05:05 [place] % (Auto) 3.2 % (0.0-10.0) 10/21/18 05:05 Eos % (Auto) 0.0 % (0.0-4.0) 10/21/18 05:05 Baso % (Auto) 0.1 % (0.0-2.0) 10/21/18 05:05 Neut # (Auto) 9.9 K/uL (1.8-7.0) H 10/21/18 05:05 Lymph # (Auto) 0.9 K/uL (1.0-4.3) L 10/21/18 05:05 [place] # (Auto) 0.4 K/uL (0.0-0.8) 10/21/18 05:05 Eos # (Auto) 0.0 K/uL (0.0-0.7) 10/21/18 05:05 Baso # (Auto) 0.0 K/uL (0.0-0.2) 10/21/18 05:05 Neutrophils % (Manual) 89 % (42-75) H 10/21/18 05:05 Lymphocytes % (Manual) 8 % (20-50) L 10/21/18 05:05 Monocytes % (Manual) 3 % (0-10) 10/21/18 05:05 Platelet Estimate Normal (NORMAL) 10/21/18 05:05 Poikilocytosis (manual Slight 10/21/18 05:05 Anisocytosis (manual) Slight 10/21/18 05:05 PT 12.5 Seconds (9.8-13.1) 10/19/18 17:49 INR 1.1 10/19/18 17:49 APTT 29.0 Seconds (25.6-37.1) 10/19/18 17:49 D-Dimer, Quantitative 432 ng/mlDDU (0-230) H 10/19/18 17:49 Sodium 139 mmol/l (132-148) 10/21/18 05:05 Potassium 4.6 MMOL/L (3.6-5.0) 10/21/18 05:05 Chloride 103 mmol/L (98-107) 10/21/18 05:05 Carbon Dioxide 30 mmol/L (22-30) 10/21/18 05:05 Anion Gap 11 (10-20) 10/21/18 05:05 BUN 19 mg/dl (9-20) 10/21/18 05:05 Creatinine 1.0 mg/dl (0.8-1.5) 10/21/18 05:05 Est GFR ( Amer) > 60 10/21/18 05:05 Est GFR (Non-Af Amer) > 60 10/21/18 05:05 POC Glucose (mg/dL) 123 mg/dL (65-110) H 10/21/18 16:38 Random Glucose 232 mg/dL (75-110) H 10/21/18 05:05 Calcium 9.0 mg/dL (8.4-10.2) 10/21/18 05:05 Total Bilirubin 1.0 mg/dl (0.2-1.3) 10/19/18 17:49 AST 71 U/L (17-59) H D 10/19/18 17:49 ALT < 6 U/L (21-72) L D 10/19/18 17:49 Alkaline Phosphatase 85 U/L (38-126) 10/19/18 17:49 Troponin I < 0.0120 ng/mL (0.00-0.120) 10/20/18 06:00 NT-Pro-B Natriuret Pep 672 pg/ml (0-900) 10/20/18 06:00 Total Protein 7.6 G/DL (6.3-8.2) 10/19/18 17:49 Albumin 3.7 g/dL (3.5-5.0) 10/19/18 17:49 Globulin 3.9 gm/dL (2.2-3.9) 10/19/18 17:49 Albumin/Globulin Ratio 0.9 (1.0-2.1) L 10/19/18 17:49 Attending/Attestation - Attestation I have personally seen and examined this patient.: Yes I have fully participated in the care of the patient.: Yes I have reviewed all pertinent clinical information, including history, physical exam and plan: Yes Notes (Text): 10/21/18 17:38 Patient seen and examined with resident. Case discussed and agreed with assessment. Patient discharged in stable condition.
[2018-10-23 12:32] VITALS: O2SAT 97
== END 2018-10-21 18:00 | disposition home or self-care (01) | DRG 140 ==
LOC: H.ER 16:26 → H.ERHOLD 18:50 → H.TEL 10-20 03:21
PROVIDERS: ADMIT Student in an Organized Health Care Education/Training Program; ATTEND Student in an Organized Health Care Education/Training Program
PROC: 3E0F7GC Introduction of Other Therapeutic Substance into Respiratory Tract, Via Natural or Artificial Opening (ICD-10-PCS; principal; 2018-10-20)
DX: J44.1 Chronic obstructive pulmonary disease with (acute) exacerbation (principal); I10 Essential (primary) hypertension; E11.9 Type 2 diabetes mellitus without complications; D50.9 Iron deficiency anemia, unspecified; F10.10 Alcohol abuse, uncomplicated; L30.9 Dermatitis, unspecified; L40.9 Psoriasis, unspecified; Z86.711 Personal history of pulmonary embolism; Z79.84 Long term (current) use of oral hypoglycemic drugs; Z87.01 Personal history of pneumonia (recurrent); Z87.891 Personal history of nicotine dependence; Z95.828 Presence of other vascular implants and grafts; Z79.899 Other long term (current) drug therapy; R00.0 Tachycardia, unspecified; R00.2 Palpitations; E78.00 Pure hypercholesterolemia, unspecified

== ENCOUNTER 2018-11-10 15:49 | Observation (INO) | payer SELFPAY ==
[2018-11-10 15:49] VITALS: BMI 33.1
[2018-11-10] MEDS ORDERED: Albuterol-Ipratrop 3 mg / 0.5 (3 ml) UD INH STA ×2 (16:29→16:51)
[2018-11-10] MEDS ORDERED: Albuterol-Ipratrop 3 mg / 0.5 (3 ml) UD ONE ×2 (16:39→17:16)
[2018-11-10 17:03] LABS: BASO # 0.1 K/uL (0.0-0.2); BASO % 0.7 % (0.0-2.0); EOS # 0.1 K/uL (0.0-0.7); EOS % 0.5 % (0.0-4.0); HEMOGLOBIN 9.9 g/dL (12.0-18.0); LYMPH % 26.5 % (20.0-40.0); MEAN CELL VOLUME 75.6 fl (80.0-94.0); MEAN CORPUSCULAR HGB CONC 31.7 g/dL (33.0-37.0); MEAN PLATELET VOLUME 8.1 fl (7.2-11.7); MONO # 1.2 K/uL (0.0-0.8); MONO % 10.5 % (0.0-10.0); NEUT # 6.9 K/uL (1.8-7.0); NEUT % 61.8 % (50.0-75.0); NRBC % 0.2 % (0.0-0.0); RBC 4.15 Mil/uL (4.40-5.90); RED CELL DISTRIBUTION WIDTH 23.5 % (11.5-14.5); WHITE BLOOD COUNT 11.1 K/uL (4.8-10.8)
[2018-11-10 17:22] LABS: B-TYPE NATRIURETIC PEPTIDE 431 pg/ml (0-900)
--- NOTE | 2018-11-10 17:23 | RAD ---
Date of service: 11/10/2018 HISTORY: SOB COMPARISON: Frontal chest radiograph 10/19/2018. TECHNIQUE: 1 view obtained. FINDINGS: LUNGS: No acute pulmonary disease appreciable bilaterally. Fibrotic changes reiterated left base. PLEURA: No significant pleural effusion identified, no pneumothorax apparent. CARDIOVASCULAR: Calcific atherosclerotic changes are seen related to the thoracic aorta. Normal cardiac size. No definite pulmonary vascular congestion. Stable bilateral hilar vascular anatomy again evident. OSSEOUS STRUCTURES: No significant abnormalities. VISUALIZED UPPER ABDOMEN: Normal. OTHER FINDINGS: None. IMPRESSION: No interval acute cardiopulmonary disease appreciated. Fibrotic changes again noted left base laterally.
[2018-11-10 17:39] LABS: ALB/GLOB RATIO 1.3 (1.0-2.1); ALBUMIN 3.9 g/dL (3.5-5.0); ALT/SGPT 31 U/L (21-72); AST/SGOT 24 U/L (17-59); BLOOD UREA NITROGEN 34 mg/dl (9-20); CALCIUM 8.8 mg/dL (8.4-10.2); GFR NON-AFRICAN AMERICAN > 60
--- NOTE | 2018-11-10 19:02 | ED PDOC ---
HPI: SOB/CHF/COPD Time Seen by Provider: 11/10/18 16:25 Chief Complaint (Nursing): Chest Pain Chief Complaint (Provider): Chest tightness History Per: Patient History/Exam Limitations: no limitations Current Symptoms Are (Timing): Still Present Additional Complaint(s): 68 y/o male, with a history of COPD and recent admissions for COPD exacerbation, presents to the ER complaining of chest tightness and chills. Prior charts reviewed. Patient was admitted x10 days ago at [facility] and had a CT angio performed. PMD: none Past Medical History Reviewed: Historical Data, Nursing Documentation, Vital Signs Vital Signs: Last Vital Signs Temp 98.2 F 11/10/18 15:58 Pulse 78 11/10/18 18:08 Resp 97 H 11/10/18 18:08 BP 136/78 11/10/18 18:08 Pulse Ox 100 11/10/18 15:58 - Medical History PMH: Asthma, CHF, COPD, Diabetes, HTN, Hypercholesterolemia, Pneumonia, Pulmonary Embolism Denies: HIV, Chronic Kidney Disease - Surgical History Other surgeries: IVC filter - Family History Family History: States: Unknown Family Hx, NC, Diabetes - Social History Current smoker - smoking cessation education provided: No Ex-Smoker (has not smoked in the last 12 months): Yes Alcohol: Other (Former alcohol abuse) - Immunization History Hx Tetanus Toxoid Vaccination: No Hx Influenza Vaccination: No Hx Pneumococcal Vaccination: No - Home Medications Home Medications: Ambulatory Orders Medication Instructions Recorded Albuterol HFA [Ventolin HFA 90 2 puff INH Q4 PRN #1 inhaler 11/02/18 mcg/actuation (8 g)] metFORMIN [glucOPHAGE] 500 mg PO BID #60 tab 11/02/18 - Allergies Allergies/Adverse Reactions: Allergies Allergy/AdvReac Type Severity Reaction Status Date / Time No Known Allergies Allergy Verified 11/10/18 15:57 Review of Systems ROS Statement: Except As Marked, All Systems Reviewed And Found Negative Constitutional: Positive for: Chills, Weakness (Generalized) Respiratory: Positive for: Cough, Shortness of Breath. Negative for: Hemoptysis Gastrointestinal: Negative for: Vomiting, Diarrhea Musculoskeletal: Positive for: Other (Leg swelling) Physical Exam - Reviewed Nursing Documentation Reviewed: Yes Vital Signs Reviewed: Yes - Physical Exam Appears: Positive for: Uncomfortable (dyspneic) Head Exam: Positive for: ATRAUMATIC, NORMOCEPHALIC Skin: Positive for: Normal Color, Warm, Dry Eye Exam: Positive for: Normal appearance Neck: Positive for: Normal, Painless ROM Cardiovascular/Chest: Positive for: Tachycardia Respiratory: Positive for: Wheezing (bilateral), Respiratory Distress (mild), Other (Normal oxygenation) Extremity: Positive for: Swelling (trace lower extremity edema) Neurological/Psych: Positive for: Awake, Alert, Normal Tone, dock pumper II-XII (intact) - Laboratory Results Result Diagrams: 11/11/18 04:35 11/11/18 04:35 Lab Results: Troponin I 0.0170 ng/mL (0.00-0.120) 11/10/18 16:45 NT-Pro-B Natriuret Pep 431 pg/ml (0-900) 11/10/18 16:45 Total Bilirubin 0.3 mg/dl (0.2-1.3) 11/10/18 16:45 AST 24 U/L (17-59) 11/10/18 16:45 ALT 31 U/L (21-72) 11/10/18 16:45 Alkaline Phosphatase 57 U/L (38-126) 11/10/18 16:45 Total Protein 6.8 G/DL (6.3-8.2) 11/10/18 16:45 Albumin 3.9 g/dL (3.5-5.0) 11/10/18 16:45 Globulin 3.0 gm/dL (2.2-3.9) 11/10/18 16:45 Albumin/Globulin Ratio 1.3 (1.0-2.1) 11/10/18 16:45 - ECG ECG Rhythm: Positive for: Sinus Tachycardia. Negative for: ST/T Changes Rate: 106 O2 Sat by Pulse Oximetry: 100 (RA) Pulse Ox Interpretation: Normal Medical Decision Making Medical Decision Making: Initial Impression: workup for COPD exacerbation Initial Plan: --ECG --B-type natriuretic peptide stat --CMP --Magnesium stat --Troponin stat --CBC --Chest X-ray --Dunoeb 3mL INH --Solumedrol 125mg IV --Peak flow --Reevaluate for improvement 17:19 Chest X-ray FINDINGS: LUNGS: No acute pulmonary disease appreciable bilaterally. Fibrotic changes reiterated left base. PLEURA: No significant pleural effusion identified, no pneumothorax apparent. CARDIOVASCULAR: Calcific atherosclerotic changes are seen related to the thoracic aorta. Normal cardiac size. No definite pulmonary vascular congestion. Stable bilateral hilar vascular anatomy again evident. OSSEOUS STRUCTURES: No significant abnormalities. VISUALIZED UPPER ABDOMEN: Normal. OTHER FINDINGS: None. IMPRESSION: No interval acute cardiopulmonary disease appreciated. Fibrotic changes again noted left base laterally. --------- -------- patient remained dyspneic w wheeze and mild resp distress, additional bronchodilator ordered and admit Dr Tafoya hospitalist, care was transferred approx 20:45 Scribe Attestation: Documented by Fady Truong acting as a scribe for Beau Espinoza III, DO. Provider Scribe Attestation: All medical record entries made by the Scribe were at my direction and personally dictated by me. I have reviewed the chart and agree that the record accurately reflects my personal performance of the history, physical exam, me dical decision making, and the department course for this patient. I have also personally directed, reviewed, and agree with the discharge instructions and disposition. Disposition - Clinical Impression Clinical Impression: COPD exacerbation - Patient ED Disposition Is Patient to be Admitted: Yes - Disposition Disposition Time: 20:45 Condition: STABLE - Pt Status Changed To: Hospital Disposition Of: Observation
--- NOTE | 2018-11-10 21:40 | CP.PCM.HP ---
<Yuliet Maier - Last Filed: 11/10/18 21:53> History of Present Illness - History of Present Illness History of Present Illness: 68 yo male, known to our service, with PMH of COPD, NIDDM2, HTN, PE w IVC filter and psoriasis presented to the ED c/o of worsening SOB and chest tightness x 1 day. He reports symptoms started today in morning without inciting event. Reports worsening cough, increased yellow sputum production and associated fever this morning. Denies any prior URI or illness. No sick contacts. Endorses chest pain with coughing. Denies headaches, changes in vision, hemoptysis, Palpitations, N/V/D/C, urinary symptoms. of note: patient was admitted 10 days ago at [facility] due to chest pain, had a CT angio performed that was negative for PE. ROS: 12 points reviewed, found to be negative unless otherwise noted in HPI. PMD: None PMH: COPD, NIDDM2, HTN, PE s/p IVC filter-2014 (not on anticoagulation), hx of retroperitoneal hematoma (2014) and psoriasis Medications: none Allergies: NKDA PSH: IVC filter 2014 Fam: denies SOC: former smoker (30 pack years), former Etoh abuse (reports last drink in 04/2017), denies drug use; homeless, sometimes sleeps in his friends house. Present on Admission - Present on Admission Any Indicators Present on Admission: No Past Patient History - Infectious Disease Hx of Infectious Diseases: None - Tetanus Immunizations Tetanus Immunization: Unknown - Past Medical History & Family History Past Medical History?: Yes - Past Social History Alcohol: Other (Former alcohol abuse) - CARDIAC Hx Congestive Heart Failure: Yes Hx Hypercholesterolemia: Yes Hx Hypertension: Yes - PULMONARY Hx Asthma: Yes Hx Chronic Obstructive Pulmonary Disease (COPD): Yes Hx Pneumonia: Yes Hx Pulmonary Embolism: Yes - NEUROLOGICAL Hx Neurological Disorder: No - HEENT Hx HEENT Problems: No - RENAL Hx Chronic Kidney Disease: No - ENDOCRINE/METABOLIC Hx Endocrine Disorders: Yes Hx Diabetes Mellitus Type 2: Yes - HEMATOLOGICAL/ONCOLOGICAL Hx Human Immunodeficiency Virus (HIV): No - INTEGUMENTARY Hx Dermatological Problems: Yes Hx Psoriasis: Yes - MUSCULOSKELETAL/RHEUMATOLOGICAL Hx Musculoskeletal Disorders: No Hx Falls: Yes - GASTROINTESTINAL Hx Gastrointestinal Disorders: Yes Other/Comment: GI bleeding - GENITOURINARY/GYNECOLOGICAL Hx Genitourinary Disorders: No - PSYCHIATRIC Hx Psychophysiologic Disorder: No Hx Substance Use: No - SURGICAL HISTORY Hx Surgeries: Yes Other/Comment: IVC Filter - ANESTHESIA Hx Anesthesia: Yes Hx Anesthesia Reactions: No Hx Malignant Hyperthermia: No Meds Allergies/Adverse Reactions: Allergies Allergy/AdvReac Type Severity Reaction Status Date / Time No Known Allergies Allergy Verified 11/10/18 15:57 Physical Exam - Constitutional Appears: No Acute Distress - Head Exam Head Exam: NORMAL INSPECTION - Eye Exam Eye Exam: EOMI, PERRL. absent: Nystagmus - ENT Exam ENT Exam: Mucous Membranes Moist - Respiratory Exam Respiratory Exam: NORMAL BREATHING PATTERN. absent: Accessory Muscle Use, Decreased Breath Sounds, Wheezes, Respiratory Distress - Cardiovascular Exam Cardiovascular Exam: REGULAR RHYTHM, +S1, +S2. absent: Tachycardia - GI/Abdominal Exam GI & Abdominal Exam: Normal Bowel Sounds, Soft. absent: Distended, Tenderness - Extremities Exam Extremities exam: Negative for: calf tenderness - Neurological Exam Neurological exam: Alert, CN II-XII Intact, Oriented x3 - Skin Skin Exam: Rash (Psoriasis), Warm Results - Vital Signs Recent Vital Signs: Last Vital Signs Temp 98.7 F 11/10/18 21:30 Pulse 100 H 11/10/18 21:30 Resp 18 11/10/18 21:30 BP 138/74 11/10/18 21:30 Pulse Ox 97 11/10/18 21:30 - Labs Result Diagrams: 11/10/18 16:45 11/10/18 16:45 Labs: Laboratory Results - last 24 hr 11/10/18 11/10/18 16:45 16:45 WBC 11.1 H RBC 4.15 L Hgb 9.9 L Hct 31.4 L MCV 75.6 L D MCH 24.0 L MCHC 31.7 L RDW 23.5 H Plt Count 234 MPV 8.1 Neut % (Auto) 61.8 Lymph % (Auto) 26.5 [place] % (Auto) 10.5 H Eos % (Auto) 0.5 Baso % (Auto) 0.7 Neut # (Auto) 6.9 Lymph # (Auto) 3.0 [place] # (Auto) 1.2 H Eos # (Auto) 0.1 Baso # (Auto) 0.1 Sodium 137 Potassium 3.9 Chloride 99 Carbon Dioxide 31 H Anion Gap 11 BUN 34 H Creatinine 1.0 Est GFR ( Amer) > 60 Est GFR (Non-Af Amer) > 60 Random Glucose 126 H Calcium 8.8 Magnesium 1.6 Total Bilirubin 0.3 AST 24 ALT 31 Alkaline Phosphatase 57 Troponin I 0.0170 NT-Pro-B Natriuret Pep 431 Total Protein 6.8 Albumin 3.9 Globulin 3.0 Albumin/Globulin Ratio 1.3 Assessment & Plan - Assessment and Plan (Free Text) Assessment: 68 y/o male with a PMHx of COPD, HTN, NIDDM2, PE (w IVC filter) admitted for Acute COPD exacerbation. Plan: Acute COPD Exacerbation - afebrile, tachycardic, BP wnl - leukocytosis 11.1 - CXR: no acute changes - Duo-nebs lovely - Resume Advair - solumedrol Q12h - supplemental O2 via NC PRN - labs in am NIDDM2 - h/o non compliance - last HBA1C 7.0 (10/30/18) - Resume metformin 500mg BID - sliding scale coverage - labs in am Microcytic Anemia of Unknown Etiology - Hb 9.9 - Iron studies wnl (10/30/18) - occult blood negative (10/20/18) - CBC in am HTN - controlled - not on medications - monitor BP Hx of PE with IVC Filter - Lovenox 40mg SC daily Prophylaxis - DVT: lovenox daily Case discussed with Dr Tafoya <Edouard Tafoya - Last Filed: 11/11/18 06:39> Results - Vital Signs Recent Vital Signs: Last Vital Signs Temp 98 F 11/11/18 04:45 Pulse 107 H 11/11/18 04:45 Resp 20 11/11/18 04:45 BP 143/72 11/11/18 04:45 Pulse Ox 98 11/11/18 04:45 - Labs Result Diagrams: 11/11/18 04:35 11/11/18 04:35 Labs: Laboratory Results - last 24 hr 11/10/18 11/10/18 11/11/18 16:45 16:45 04:35 WBC 11.1 H 11.6 H RBC 4.15 L 4.28 L Hgb 9.9 L 10.2 L Hct 31.4 L 32.5 L MCV 75.6 L D 75.8 L MCH 24.0 L 23.8 L MCHC 31.7 L 31.3 L RDW 23.5 H 23.4 H Plt Count 234 227 MPV 8.1 8.4 Neut % (Auto) 61.8 87.3 H Lymph % (Auto) 26.5 8.5 L [place] % (Auto) 10.5 H 4.0 Eos % (Auto) 0.5 0.0 Baso % (Auto) 0.7 0.2 Neut # (Auto) 6.9 10.2 H Lymph # (Auto) 3.0 1.0 [place] # (Auto) 1.2 H 0.5 Eos # (Auto) 0.1 0.0 Baso # (Auto) 0.1 0.0 Sodium 137 Potassium 3.9 Chloride 99 Carbon Dioxide 31 H Anion Gap 11 BUN 34 H Creatinine 1.0 Est GFR ( Amer) > 60 Est GFR (Non-Af Amer) > 60 POC Glucose (mg/dL) Random Glucose 126 H Calcium 8.8 Magnesium 1.6 Total Bilirubin 0.3 AST 24 ALT 31 Alkaline Phosphatase 57 Troponin I 0.0170 NT-Pro-B Natriuret Pep 431 Total Protein 6.8 Albumin 3.9 Globulin 3.0 Albumin/Globulin Ratio 1.3 11/11/18 11/11/18 04:35 05:15 WBC RBC Hgb Hct MCV MCH MCHC RDW Plt Count MPV Neut % (Auto) Lymph % (Auto) [place] % (Auto) Eos % (Auto) Baso % (Auto) Neut # (Auto) Lymph # (Auto) [place] # (Auto) Eos # (Auto) Baso # (Auto) Sodium 137 Potassium 4.0 Chloride 99 Carbon Dioxide 26 Anion Gap 16 BUN 36 H Creatinine 1.1 Est GFR ( Amer) > 60 Est GFR (Non-Af Amer) > 60 POC Glucose (mg/dL) 293 H Random Glucose 288 H Calcium 8.9 Magnesium Total Bilirubin 0.3 AST 26 ALT 29 Alkaline Phosphatase 56 Troponin I NT-Pro-B Natriuret Pep Total Protein 6.7 Albumin 3.9 Globulin 2.8 Albumin/Globulin Ratio 1.4 Attending/Attestation - Attestation I have personally seen and examined this patient.: Yes I have fully participated in the care of the patient.: Yes I have reviewed all pertinent clinical information: Yes Notes (Text): 11/11/18 06:31 IO saw, examined and discussed this patient with Dr Maier. I agree with the assessment and plan outlined. This is a 68 years old male with COPD noncompliant with medication, last admitted at [facility] on 10/29 and discharged 11/02 with prescription for one month of Metformin, Ventolin MDI and Prednisone 20mg daily for 7 days and to follow up with a Dr Herrera. He comes on 11/10 with a decompensated COPD. We will treat for Decompensated COPD and also and the Diabetes Mellitus. Edouard Tafoya MD
[2018-11-10] MEDS ORDERED: Albuterol HFA 90 mcg/actuation (8 g) INH PRN (21:43)
[2018-11-10] MEDS ORDERED: Dextrose 50% SYRINGE Inj (50 ml) IV PRN (22:24)
[2018-11-10] MEDS ORDERED: Glucagon Recombinant 1 mg Inj IM PRN (22:24)
[2018-11-10] MEDS: Insulin Lispro (humaLOG) 100 Units/ml Inj SC SCH (22:53)
[2018-11-11] MEDS ORDERED: Albuterol-Ipratrop 3 mg / 0.5 (3 ml) UD INH SCH (02:00)
[2018-11-11 05:42] LABS: BASO % 0.2 % (0.0-2.0); HEMOGLOBIN 10.2 g/dL (12.0-18.0); LYMPH % 8.5 % (20.0-40.0); MEAN CELL VOLUME 75.8 fl (80.0-94.0); MEAN CORPUSCULAR HEMOGLOBIN 23.8 pg (27.0-31.0); MEAN CORPUSCULAR HGB CONC 31.3 g/dL (33.0-37.0); MEAN PLATELET VOLUME 8.4 fl (7.2-11.7); MONO # 0.5 K/uL (0.0-0.8); NEUT # 10.2 K/uL (1.8-7.0); NEUT % 87.3 % (50.0-75.0); PLATELET COUNT 227 K/uL (130-400); RBC 4.28 Mil/uL (4.40-5.90); RED CELL DISTRIBUTION WIDTH 23.4 % (11.5-14.5); WHITE BLOOD COUNT 11.6 K/uL (4.8-10.8)
[2018-11-11 05:52] LABS: ALB/GLOB RATIO 1.4 (1.0-2.1); ALBUMIN 3.9 g/dL (3.5-5.0); ALT/SGPT 29 U/L (21-72); AST/SGOT 26 U/L (17-59); BLOOD UREA NITROGEN 36 mg/dl (9-20); CALCIUM 8.9 mg/dL (8.4-10.2); GFR NON-AFRICAN AMERICAN > 60
[2018-11-11] MEDS: Insulin Lispro (humaLOG) 100 Units/ml Inj SC SCH ×2 (06:25→13:18)
[2018-11-11] MEDS: Albuterol-Ipratrop 3 mg / 0.5 (3 ml) UD INH SCH ×3 (07:28→16:36)
[2018-11-11 08:47] LABS: BANDS 1 % (0-2); LYMPHOCYTE 10 % (20-50); MONOCYTE 4 % (0-10); NEUTROPHIL 85 % (42-75); PLATELET ESTIMATE NORMAL (NORMAL); TOTAL CELLS COUNTED 100
[2018-11-11 08:48] LABS: ANISOCYTOSIS MODERATE; HYPOCHROMIC SLIGHT; MICROCYTOSIS SLIGHT; OVALOCYTES SLIGHT; POIKILOCYTOSIS SLIGHT; SCHISTOCYTES SLIGHT
[2018-11-11] MEDS ORDERED: Enoxaparin 40 mg Syringe SC SCH (09:00)
[2018-11-11] MEDS ORDERED: MethylPREDNISolone 40 mg Vial IVP SCH (09:00)
--- NOTE | 2018-11-11 09:38 | CP.PCM.DIS ---
<Kelvin Chung - Last Filed: 11/11/18 10:21> Provider - Provider Date of Admission: 11/10/18 20:57 Attending physician: Edouard Tafoya Time Spent in preparation of Discharge (in minutes): 35 Diagnosis - Discharge Diagnosis (1) Acute exacerbation of chronic obstructive pulmonary disease Status: Chronic (2) Non-insulin dependent type 2 diabetes mellitus Status: Chronic Hospital Course - Lab Results Lab Results: Most Recent Lab Values WBC 11.6 K/uL (4.8-10.8) H 11/11/18 04:35 RBC 4.28 Mil/uL (4.40-5.90) L 11/11/18 04:35 Hgb 10.2 g/dL (12.0-18.0) L 11/11/18 04:35 Hct 32.5 % (35.0-51.0) L 11/11/18 04:35 MCV 75.8 fl (80.0-94.0) L 11/11/18 04:35 MCH 23.8 pg (27.0-31.0) L 11/11/18 04:35 MCHC 31.3 g/dL (33.0-37.0) L 11/11/18 04:35 RDW 23.4 % (11.5-14.5) H 11/11/18 04:35 Plt Count 227 K/uL (130-400) 11/11/18 04:35 MPV 8.4 fl (7.2-11.7) 11/11/18 04:35 Neut % (Auto) 87.3 % (50.0-75.0) H 11/11/18 04:35 Lymph % (Auto) 8.5 % (20.0-40.0) L 11/11/18 04:35 [place] % (Auto) 4.0 % (0.0-10.0) 11/11/18 04:35 Eos % (Auto) 0.0 % (0.0-4.0) 11/11/18 04:35 Baso % (Auto) 0.2 % (0.0-2.0) 11/11/18 04:35 Neut # (Auto) 10.2 K/uL (1.8-7.0) H 11/11/18 04:35 Lymph # (Auto) 1.0 K/uL (1.0-4.3) 11/11/18 04:35 [place] # (Auto) 0.5 K/uL (0.0-0.8) 11/11/18 04:35 Eos # (Auto) 0.0 K/uL (0.0-0.7) 11/11/18 04:35 Baso # (Auto) 0.0 K/uL (0.0-0.2) 11/11/18 04:35 Neutrophils % (Manual) 85 % (42-75) H 11/11/18 04:35 Band Neutrophils % 1 % (0-2) 11/11/18 04:35 Lymphocytes % (Manual) 10 % (20-50) L 11/11/18 04:35 Monocytes % (Manual) 4 % (0-10) 11/11/18 04:35 Platelet Estimate Normal (NORMAL) 11/11/18 04:35 Hypochromasia (manual) Slight 11/11/18 04:35 Poikilocytosis (manual Slight 11/11/18 04:35 Anisocytosis (manual) Moderate 11/11/18 04:35 Microcytosis (manual) Slight 11/11/18 04:35 Ovalocytes Slight 11/11/18 04:35 Schistocytes Slight 11/11/18 04:35 Sodium 137 mmol/l (132-148) 11/11/18 04:35 Potassium 4.0 MMOL/L (3.6-5.0) 11/11/18 04:35 Chloride 99 mmol/L (98-107) 11/11/18 04:35 Carbon Dioxide 26 mmol/L (22-30) 11/11/18 04:35 Anion Gap 16 (10-20) 11/11/18 04:35 BUN 36 mg/dl (9-20) H 11/11/18 04:35 Creatinine 1.1 mg/dl (0.8-1.5) 11/11/18 04:35 Est GFR ( Amer) > 60 11/11/18 04:35 Est GFR (Non-Af Amer) > 60 11/11/18 04:35 POC Glucose (mg/dL) 293 mg/dL (65-110) H 11/11/18 05:15 Random Glucose 288 mg/dL (75-110) H 11/11/18 04:35 Calcium 8.9 mg/dL (8.4-10.2) 11/11/18 04:35 Magnesium 1.6 MG/DL (1.6-2.3) 11/10/18 16:45 Total Bilirubin 0.3 mg/dl (0.2-1.3) 11/11/18 04:35 AST 26 U/L (17-59) 11/11/18 04:35 ALT 29 U/L (21-72) 11/11/18 04:35 Alkaline Phosphatase 56 U/L (38-126) 11/11/18 04:35 Troponin I 0.0170 ng/mL (0.00-0.120) 11/10/18 16:45 NT-Pro-B Natriuret Pep 431 pg/ml (0-900) 11/10/18 16:45 Total Protein 6.7 G/DL (6.3-8.2) 11/11/18 04:35 Albumin 3.9 g/dL (3.5-5.0) 11/11/18 04:35 Globulin 2.8 gm/dL (2.2-3.9) 11/11/18 04:35 Albumin/Globulin Ratio 1.4 (1.0-2.1) 11/11/18 04:35 - Hospital Course Hospital Course: 68 y/o m with known hx of COPD, T2D, noncompliant with outpatient f/u and treatment admitted overnight due to c/o SOB. Patient stated overnight and is am bulating in room this AM with no O2 and POx >95%. HR slightly elevated likely due to steroids. Patient is stable to DC home and c/w outpatient treatment. Encouraged patient to f/u at clinic and be compliant with meds. Discharge Exam - Head Exam Head Exam: NORMAL INSPECTION - Eye Exam Eye Exam: EOMI, PERRL - Respiratory Exam Respiratory Exam: NORMAL BREATHING PATTERN. absent: Decreased Breath Sounds, Respiratory Distress - Cardiovascular Exam Cardiovascular Exam: REGULAR RHYTHM, +S1, +S2. absent: Gallop - GI/Abdominal Exam GI & Abdominal Exam: Normal Bowel Sounds, Soft. absent: Tenderness - Extremities Exam Extremities exam: normal capillary refill Additional comments: dry scaly rash B/L LE - Neurological Exam Neurological exam: Alert - Psychiatric Exam Psychiatric exam: Normal Affect, Normal Mood - Skin Skin Exam: Rash (B/L LE scaly dry and also to UE and trunk), Warm Discharge Plan - Follow Up Plan Condition: STABLE Disposition: HOME/ ROUTINE Instructions: Exacerbation of COPD Additional Instructions: Please f/u as outpatient at [facility]. follow up appt at the clinic 11/17/18 4pm Take your meds as prescribed. Referrals: [facility] [place] [Outside] <Lida Fernandes - Last Filed: 11/11/18 22:17> Provider - Provider Date of Admission: 11/10/18 20:57 Attending physician: Edouard Tafoya [facility] Course - Lab Results Lab Results: Most Recent Lab Values WBC 11.6 K/uL (4.8-10.8) H 11/11/18 04:35 RBC 4.28 Mil/uL (4.40-5.90) L 11/11/18 04:35 Hgb 10.2 g/dL (12.0-18.0) L 11/11/18 04:35 Hct 32.5 % (35.0-51.0) L 11/11/18 04:35 MCV 75.8 fl (80.0-94.0) L 11/11/18 04:35 MCH 23.8 pg (27.0-31.0) L 11/11/18 04:35 MCHC 31.3 g/dL (33.0-37.0) L 11/11/18 04:35 RDW 23.4 % (11.5-14.5) H 11/11/18 04:35 Plt Count 227 K/uL (130-400) 11/11/18 04:35 MPV 8.4 fl (7.2-11.7) 11/11/18 04:35 Neut % (Auto) 87.3 % (50.0-75.0) H 11/11/18 04:35 Lymph % (Auto) 8.5 % (20.0-40.0) L 11/11/18 04:35 [place] % (Auto) 4.0 % (0.0-10.0) 11/11/18 04:35 Eos % (Auto) 0.0 % (0.0-4.0) 11/11/18 04:35 Baso % (Auto) 0.2 % (0.0-2.0) 11/11/18 04:35 Neut # (Auto) 10.2 K/uL (1.8-7.0) H 11/11/18 04:35 Lymph # (Auto) 1.0 K/uL (1.0-4.3) 11/11/18 04:35 [place] # (Auto) 0.5 K/uL (0.0-0.8) 11/11/18 04:35 Eos # (Auto) 0.0 K/uL (0.0-0.7) 11/11/18 04:35 Baso # (Auto) 0.0 K/uL (0.0-0.2) 11/11/18 04:35 Neutrophils % (Manual) 85 % (42-75) H 11/11/18 04:35 Band Neutrophils % 1 % (0-2) 11/11/18 04:35 Lymphocytes % (Manual) 10 % (20-50) L 11/11/18 04:35 Monocytes % (Manual) 4 % (0-10) 11/11/18 04:35 Platelet Estimate Normal (NORMAL) 11/11/18 04:35 Hypochromasia (manual) Slight 11/11/18 04:35 Poikilocytosis (manual Slight 11/11/18 04:35 Anisocytosis (manual) Moderate 11/11/18 04:35 Microcytosis (manual) Slight 11/11/18 04:35 Ovalocytes Slight 11/11/18 04:35 Schistocytes Slight 11/11/18 04:35 Sodium 137 mmol/l (132-148) 11/11/18 04:35 Potassium 4.0 MMOL/L (3.6-5.0) 11/11/18 04:35 Chloride 99 mmol/L (98-107) 11/11/18 04:35 Carbon Dioxide 26 mmol/L (22-30) 11/11/18 04:35 Anion Gap 16 (10-20) 11/11/18 04:35 BUN 36 mg/dl (9-20) H 11/11/18 04:35 Creatinine 1.1 mg/dl (0.8-1.5) 11/11/18 04:35 Est GFR ( Amer) > 60 11/11/18 04:35 Est GFR (Non-Af Amer) > 60 11/11/18 04:35 POC Glucose (mg/dL) 218 mg/dL (65-110) H 11/11/18 10:59 Random Glucose 288 mg/dL (75-110) H 11/11/18 04:35 Calcium 8.9 mg/dL (8.4-10.2) 11/11/18 04:35 Magnesium 1.6 MG/DL (1.6-2.3) 11/10/18 16:45 Total Bilirubin 0.3 mg/dl (0.2-1.3) 11/11/18 04:35 AST 26 U/L (17-59) 11/11/18 04:35 ALT 29 U/L (21-72) 11/11/18 04:35 Alkaline Phosphatase 56 U/L (38-126) 11/11/18 04:35 Troponin I 0.0170 ng/mL (0.00-0.120) 11/10/18 16:45 NT-Pro-B Natriuret Pep 431 pg/ml (0-900) 11/10/18 16:45 Total Protein 6.7 G/DL (6.3-8.2) 11/11/18 04:35 Albumin 3.9 g/dL (3.5-5.0) 11/11/18 04:35 Globulin 2.8 gm/dL (2.2-3.9) 11/11/18 04:35 Albumin/Globulin Ratio 1.4 (1.0-2.1) 11/11/18 04:35 Attending/Attestation - Attestation I have personally seen and examined this patient.: Yes I have fully participated in the care of the patient.: Yes I have reviewed all pertinent clinical information, including history, physical exam and plan: Yes Notes (Text): agree with findings and plan as above
--- NOTE | 2018-11-11 09:41 | CARD ---
APPROVED REPORT Date of service: 11/10/2018 EKG Measurement Heart [id number] <Conclusion> Sinus tachycardia Otherwise normal ECG
[2018-11-11 15:37] VITALS: BP 131/74; PULSE 98; RESP 20; TEMP 98.3; O2SAT 99
== END 2018-11-11 16:25 | disposition home or self-care (01) ==
LOC: H.ER 15:49 → H.ERHOLD 20:57 → H.TEL 22:07
PROVIDERS: ADMIT Internal Medicine; ATTEND Internal Medicine
DX: J44.1 Chronic obstructive pulmonary disease with (acute) exacerbation (principal); I11.0 Hypertensive heart disease with heart failure; I50.9 Heart failure, unspecified; E11.9 Type 2 diabetes mellitus without complications; E78.00 Pure hypercholesterolemia, unspecified; Z91.19 Patient's noncompliance with other medical treatment and regimen; Z86.711 Personal history of pulmonary embolism; Z87.01 Personal history of pneumonia (recurrent); Z95.828 Presence of other vascular implants and grafts; Z79.84 Long term (current) use of oral hypoglycemic drugs; Z87.891 Personal history of nicotine dependence
CPT/HCPCS: 36415; 71045; 80053; 82948; 83735; 83880; 84484; 85025; 93005; 94640; 96372; 96374; 99285; G0378; J1650; J2930

== ENCOUNTER 2018-11-23 16:39 | Emergency (ER) | payer SELFPAY ==
[2018-11-23 16:40] VITALS: BMI 33.1
[2018-11-23] MEDS ORDERED: Albuterol-Ipratrop 3 mg / 0.5 (3 ml) UD ONE ×2 (17:05→17:09)
[2018-11-23] MEDS ORDERED: Sodium Chloride 0.9% 500 ML IV STA (17:08)
[2018-11-23] MEDS ORDERED: Albuterol-Ipratrop 3 mg / 0.5 (3 ml) UD IH STA ×2 (17:08→17:10)
[2018-11-23] MEDS ORDERED: Albuterol-Ipratrop 3 mg / 0.5 (3 ml) UD INH STA (17:08)
[2018-11-23 17:28] LABS: BASO # 0.1 K/uL (0.0-0.2); BASO % 0.6 % (0.0-2.0); HEMOGLOBIN 9.8 g/dL (12.0-18.0); LYMPH # 1.2 K/uL (1.0-4.3); MEAN CELL VOLUME 76.3 fl (80.0-94.0); MEAN CORPUSCULAR HEMOGLOBIN 24.3 pg (27.0-31.0); MEAN CORPUSCULAR HGB CONC 31.9 g/dL (33.0-37.0); MEAN PLATELET VOLUME 7.8 fl (7.2-11.7); MONO # 0.5 K/uL (0.0-0.8); MONO % 4.7 % (0.0-10.0); NEUT # 8.3 K/uL (1.8-7.0); NEUT % 82.7 % (50.0-75.0); RBC 4.02 Mil/uL (4.40-5.90); RED CELL DISTRIBUTION WIDTH 22.4 % (11.5-14.5); WHITE BLOOD COUNT 10.1 K/uL (4.8-10.8)
[2018-11-23 17:35] LABS: VENOUS BLOOD GAS BASE EXCESS 1.2 mmol/L (0.0-2.0); VENOUS BLOOD GAS PCO2 44 mmHg (40-60); VENOUS BLOOD GAS PO2 47 mm/Hg (30-55); VENOUS BLOOD PH 7.39 (7.32-7.43)
[2018-11-23 17:47] LABS: INR 1.1; PROTHROMBIN TIME 12.5 Seconds (9.8-13.1)
[2018-11-23 17:49] LABS: PARTIAL THROMBOPLASTIN TIME 28.6 Seconds (25.6-37.1)
--- NOTE | 2018-11-23 17:49 | RAD ---
Date of service: 11/23/2018 HISTORY: Dyspnea COMPARISON: 11/10/2018. FINDINGS: LUNGS: No active pulmonary disease. PLEURA: No significant pleural effusion identified, no pneumothorax apparent. CARDIOVASCULAR: Atherosclerotic calcifications identified primarily aortic arch. No radiographic findings to suggest acute or significant cardiovascular disease. OSSEOUS STRUCTURES: No significant abnormalities. VISUALIZED UPPER ABDOMEN: Normal. OTHER FINDINGS: None. IMPRESSION: No active disease. No significant interval change compared to the prior examination(s).
[2018-11-23 17:50] LABS: ALB/GLOB RATIO 1.3 (1.0-2.1); ALBUMIN 3.9 g/dL (3.5-5.0); ALT/SGPT 25 U/L (21-72); AST/SGOT 29 U/L (17-59); BLOOD UREA NITROGEN 27 mg/dl (9-20); CALCIUM 8.8 mg/dL (8.4-10.2); GFR NON-AFRICAN AMERICAN > 60
[2018-11-23 18:00] LABS: B-TYPE NATRIURETIC PEPTIDE 457 pg/ml (0-900)
--- NOTE | 2018-11-23 18:02 | ED PDOC ---
HPI: SOB/CHF/COPD Time Seen by Provider: 11/23/18 16:59 Chief Complaint (Nursing): Respiratory Distress Chief Complaint (Provider): Respiratory Distress History Per: Patient History/Exam Limitations: no limitations Onset/Duration Of Symptoms: Hrs Current Symptoms Are (Timing): Still Present Additional Complaint(s): 68 year old male with pmhx of COPD and asthma presents to the ED for an evaluation of shortness of breath onset today. Patient lives in the long-term. He is well known to the providers in the facility due to multiple visits and bed- seeking behavior. Currently, patient states his medication are not working. Otherwise, he denies fever, chills, chest pain, cough, abdominal pain, nausea, vomiting, diarrhea, urinary symptoms, numbness or weakness. PMD: no family provider Past Medical History Reviewed: Historical Data, Nursing Documentation, Vital Signs Vital Signs: Last Vital Signs Temp 98.1 F 11/23/18 16:54 Pulse 100 H 11/23/18 16:54 Resp 27 H 11/23/18 16:54 BP 143/81 11/23/18 16:54 Pulse Ox 94 L 11/23/18 16:54 Primary Care Provider: Non [facility] Provider, - Medical History PMH: Asthma, CHF, COPD, Diabetes, HTN, Hypercholesterolemia, Pneumonia, Pulmonary Embolism Denies: HIV, Chronic Kidney Disease - Family History Family History: States: Unknown Family Hx, [place], Diabetes - Immunization History Hx Tetanus Toxoid Vaccination: No Hx Influenza Vaccination: No Hx Pneumococcal Vaccination: No - Home Medications Home Medications: Ambulatory Orders Medication Instructions Recorded Albuterol HFA [Ventolin HFA 90 2 puff INH Q4 PRN #1 inhaler 11/02/18 mcg/actuation (8 g)] metFORMIN [glucOPHAGE] 500 mg PO BID #60 tab 11/02/18 Albuterol Sulfate [Proair Hfa] 0.09 mg IH Q6H PRN #2 inh 11/23/18 predniSONE [predniSONE Tab] 20 mg PO BID 5 Days tab 11/23/18 - Allergies Allergies/Adverse Reactions: Allergies Allergy/AdvReac Type Severity Reaction Status Date / Time No Known Allergies Allergy Verified 11/10/18 15:57 Review of Systems ROS Statement: Except As Marked, All Systems Reviewed And Found Negative Constitutional: Negative for: Fever, Chills Cardiovascular: Negative for: Chest Pain Respiratory: Positive for: Shortness of Breath. Negative for: Cough Gastrointestinal: Negative for: Nausea, Vomiting, Abdominal Pain, Diarrhea Genitourinary Male: Negative for: Dysuria, Frequency, Incontinence Neurological: Negative for: Weakness, Numbness Physical Exam - Reviewed Nursing Documentation Reviewed: Yes Vital Signs Reviewed: Yes - Physical Exam Appears: Positive for: Non-toxic, No Acute Distress Head Exam: Positive for: ATRAUMATIC, NORMAL INSPECTION, NORMOCEPHALIC Skin: Positive for: Normal Color, Warm, Dry. Negative for: Rash Eye Exam: Positive for: EOMI, Normal appearance, PERRL ENT: Positive for: Normal ENT Inspection. Negative for: Nasal Congestion Neck: Positive for: Normal, Painless ROM, Supple. Negative for: Decreased ROM Cardiovascular/Chest: Positive for: Regular Rate, Rhythm. Negative for: Murmur Respiratory: Positive for: Decreased Breath Sounds, Wheezing (diffuse ) Gastrointestinal/Abdominal: Positive for: Normal Exam, Soft Back: Positive for: Normal Inspection Extremity: Positive for: Other (chronic vein stasis, non-tender ). Negative for: Deformity Neurological/Psych: Positive for: Awake, Alert, Normal Tone, Oriented (x3) - Laboratory Results Result Diagrams: 11/23/18 17:11/23/18 17:19 Lab Results: pO2 47 mm/Hg (30-55) 11/23/18 17:22 VBG pH 7.39 (7.32-7.43) 11/23/18 17:22 VBG pCO2 44 mmHg (40-60) 11/23/18 17:22 VBG HCO3 25.4 mmol/L 11/23/18 17:22 VBG Total CO2 28.0 mmol/L (22-28) 11/23/18 17:22 VBG O2 Sat (Calc) 87.3 % (40-65) H 11/23/18 17:22 VBG Base Excess 1.2 mmol/L (0.0-2.0) 11/23/18 17:22 VBG Potassium 4.4 mmol/L (3.6-5.2) 11/23/18 17:22 Sodium 137.0 mmol/L (132-148) 11/23/18 17:22 Chloride 103.0 mmol/L (98-107) 11/23/18 17:22 Glucose 173 mg/dL (75-110) H 05/08/19 17:22 Lactate 2.5 mmol/L (0.7-2.1) H 11/23/18 17:22 FiO2 21.0 % 11/23/18 17: PT 12.5 Seconds (9.8-13.1) 11/23/18 17: INR 1.1 11/23/18 17: APTT 28.6 Seconds (25.6-37.1) 11/23/18 17: Total Bilirubin 0.4 mg/dl (0.2-1.3) 11/23/18 17: AST 29 U/L (17-59) 11/23/18 17: ALT 25 U/L (21-72) 11/23/18 17: Alkaline Phosphatase 52 U/L (38-126) 11/23/18 17: Total Protein 6.9 G/DL (6.3-8.2) 11/23/18 17: Albumin 3.9 g/dL (3.5-5.0) 11/23/18 17: Globulin 3.0 gm/dL (2.2-3.9) 11/23/18 17: Albumin/Globulin Ratio 1.3 (1.0-2.1) 11/23/18 17:19 Interpretation Of Abn Labs: 27 bun - ECG ECG: Positive for: Interpreted By Me, Viewed By Me ECG Rhythm: Positive for: Normal QRS, Normal ST Segment, Sinus Rhythm O2 Sat by Pulse Oximetry: 94 (RA) - Radiology X-Ray: Read By Radiologist X-Ray Interpretation: No Acute Disease - Progress ED Course And Treament: 1910: Stable. AAOx3. Multiple Er visits. Speaking in full sentences with no issues. Tolerated PO. No wheezes. Fu with pcp. Medical Decision Making Medical Decision Making: Time: 1707 Plan: VBG EKG CMP B-type natriuretic peptide Troponin CBC w/ differential Normal saline 100 mls/hr Prothrombin time PTT Chest Portable [RAD] Albuterol 3ml Peak floe pre/post treatment SOLU-Medrol 125mg Scribe Attestation: Documented by Charbel Kurtz, acting as a scribe for Ras Conti MD Provider Scribe Attestation: All medical record entries made by the Scribe were at my direction and personally dictated by me. I have reviewed the chart and agree that the record accurately reflects my personal the department course for this patient. I have also personally directed, performance of the history, physical exam, medical decision making, and reviewed, and agree with the discharge instructions and disposition. Disposition - Clinical Impression Clinical Impression: COPD exacerbation - Patient ED Disposition Is Patient to be Admitted: No Counseled Patient/Family Regarding: Studies Performed, Diagnosis, Need For Followup, Rx Given - Disposition Referrals: [facility] [Outside] - 11/24/18 Disposition: Routine/Home Disposition Time: 18:00 Condition: STABLE Additional Instructions: Return if not better in 3 days. Prescriptions: Albuterol Sulfate [Proair Hfa] 0.09 mg IH Q6H PRN #2 inh PRN Reason: Wheezing predniSONE [predniSONE Tab] 20 mg PO BID 5 Days tab Instructions: Exacerbation of COPD
[2018-11-23 19:26] VITALS: BP 139/77; PULSE 89; RESP 16; TEMP 98; O2SAT 96
--- NOTE | 2018-11-24 11:35 | CARD ---
APPROVED REPORT Date of service: 11/23/2018 EKG Measurement Heart [id number] <Conclusion> Normal sinus rhythm Normal ECG
== END 2018-11-23 19:26 | disposition home or self-care (01) ==
LOC: H.ER 16:39
DX: J44.1 Chronic obstructive pulmonary disease with (acute) exacerbation (principal); E11.9 Type 2 diabetes mellitus without complications; I11.0 Hypertensive heart disease with heart failure; Z79.84 Long term (current) use of oral hypoglycemic drugs; Z79.899 Other long term (current) drug therapy; Z86.711 Personal history of pulmonary embolism; E78.00 Pure hypercholesterolemia, unspecified
CPT/HCPCS: 71045; 80053; 82803; 83880; 84484; 85025; 85610; 85730; 93005; 96374; 99283; J2930; J7040

== ENCOUNTER 2018-12-01 16:27 | Observation (INO) | payer SELFPAY ==
[2018-12-01 16:27] VITALS: BMI 33.1
--- NOTE | 2018-12-01 17:37 | ED PDOC ---
HPI: SOB/CHF/COPD Time Seen by Provider: 12/01/18 16:55 Chief Complaint (Nursing): Cough, Cold, Congestion Chief Complaint (Provider): Cough, Body Pain, Wheezing History Per: Patient History/Exam Limitations: no limitations Onset/Duration Of Symptoms: Days (x4) Current Symptoms Are (Timing): Still Present Additional Complaint(s): 68 year old male with pmhx COPD, asthma, and pneumonia presents to the ED stating "I feel like I have pneumonia." For the past four days, patient reports cough, diffuse body pain, weakness, subjective fevers, and wheezing which reminds him of previous COPD exacerbations as well. Otherwise denies chest pain and vomiting. Past Medical History Reviewed: Historical Data, Nursing Documentation, Vital Signs Vital Signs: Last Vital Signs Temp 97.5 F L 12/01/18 16:56 Pulse 104 H 12/01/18 16:56 Resp 16 12/01/18 16:56 BP 159/77 H 12/01/18 16:56 Pulse Ox 96 12/01/18 16:56 Primary Care Provider: FAMILY PROVIDER,NO - Medical History PMH: Asthma, CHF, COPD, Diabetes, HTN, Hypercholesterolemia, Pneumonia, Pulmonary Embolism Denies: HIV, Chronic Kidney Disease - Surgical History Surgical History: No Surg Hx - Family History Family History: States: [place], Diabetes - Social History Current smoker - smoking cessation education provided: No ("quit years ago") Alcohol: None ("quit years ago") Drugs: Denies - Immunization History Hx Tetanus Toxoid Vaccination: No Hx Influenza Vaccination: No Hx Pneumococcal Vaccination: No - Home Medications Home Medications: Ambulatory Orders Medication Instructions Recorded Albuterol HFA [Ventolin HFA 90 2 puff INH RQ6 PRN #1 inhaler 12/03/18 mcg/actuation (8 g)] Azithromycin [Zithromax] 500 mg PO DAILY #4 tablet 12/03/18 Cefdinir [Omnicef] 300 mg PO BID #8 cap 12/03/18 Fluticasone Propion/Salmeterol 1 puff IH Q12 #1 inhaler 12/03/18 [Airduo Resp. Fluticasone-Salmeterol 232-14] Methylprednisolone [Medrol Dose 4 mg PO ASDIR #21 mg 12/03/18 Pack (21 tabs)] metFORMIN [glucOPHAGE] 500 mg PO BID #60 tab 12/03/18 - Allergies Allergies/Adverse Reactions: Allergies Allergy/AdvReac Type Severity Reaction Status Date / Time No Known Allergies Allergy Verified 12/01/18 16:57 Review of Systems ROS Statement: Except As Marked, All Systems Reviewed And Found Negative Constitutional: Positive for: Fever (subjective), Weakness, Other (diffuse body pain) Cardiovascular: Negative for: Chest Pain Respiratory: Positive for: Cough, Wheezing Gastrointestinal: Negative for: Vomiting Physical Exam - Reviewed Nursing Documentation Reviewed: Yes Vital Signs Reviewed: Yes - Physical Exam Appears: Positive for: No Acute Distress Head Exam: Positive for: ATRAUMATIC, NORMOCEPHALIC Skin: Positive for: Normal Color, Warm Eye Exam: Positive for: Normal appearance, EOMI, PERRL ENT: Positive for: Normal ENT Inspection Neck: Positive for: Normal, Painless ROM, Supple Cardiovascular/Chest: Positive for: Tachycardia Respiratory: Positive for: Rhonchi (diffuse), Wheezing (diffuse), Other (pt on O2 NC; positive tachypnea; actively coughing) Gastrointestinal/Abdominal: Positive for: Normal Exam, Soft. Negative for: Tenderness Back: Positive for: Normal Inspection Extremity: Positive for: Normal ROM (all extremities) Neurological/Psych: Positive for: Awake, Alert, Oriented (x3) Comments: pt is obese - Laboratory Results Result Diagrams: 12/02/18 04:45 12/02/18 04:45 - ECG O2 Sat by Pulse Oximetry: 96 (NC) Pulse Ox Interpretation: Normal - Radiology X-Ray: Read By Radiologist X-Ray Interpretation: Infiltrates (right upper lobe ) - Critical Care Total Time (In Min): 45 Documented Critical Care: Time excludes all time spent performint seperately billable procedures Medical Decision Making Medical Decision Making: Time: 1722 Initial Impression: shortness of breath, wheezing r/o COPD exacerbation, r/o CHF, r/o pneumonia, r/o sepsis Initial Plan: --VBG x2 (@1722, @2022) --EKG --CMP --Magnesium and Phosphorus chemistry --CBC with differential --PT / PTT --CXR --SOLU-Medrol 125mg IVP --Blood culture --Urine culture --Patient placed on case monitor --Urinalysis --Reevaluation CXR FINDINGS: LUNGS: Subtle infiltrate in the region of the inferior right upper lobe. Mild venous congestion. PLEURA: No significant pleural effusion identified. No definite pneumothorax . CARDIOVASCULAR: Cardiomegaly. Faint atherosclerotic calcifications of an ectatic aorta. OSSEOUS STRUCTURES: Osseous demineralization. Degenerative changes. VISUALIZED UPPER ABDOMEN: Unremarkable. OTHER FINDINGS: None. IMPRESSION: Subtle infiltrate in the region of the inferior right upper lobe. Mild venous congestion. Cardiomegaly. 1953 Patient to be admitted to tele/obs as per Dr. Tafoya for commuunity acquired pneumonia and COPD exacerbation. steroids, nebs and iv abx given. lactate 1.1 Scribe Attestation: Documented by Heather Zuleta, acting as a scribe for Presley Bradford MD. Provider Scribe Attestation: All medical record entries made by the Scribe were at my direction and personally dictated by me. I have reviewed the chart and agree that the record accurately reflects my personal performance of the history, physical exam, medical decision making, and the department course for this patient. I have also personally directed, reviewed, and agree with the discharge instructions and disposition. Disposition - Clinical Impression Clinical Impression: Cough, COPD exacerbation, Pneumonia - Patient ED Disposition Is Patient to be Admitted: Yes - Disposition Disposition Time: 19:45 Condition: GUARDED
[2018-12-01] MEDS ORDERED: Albuterol-Ipratrop 3 mg / 0.5 (3 ml) UD INH STA (18:00)
[2018-12-01 18:06] LABS: BASO # 0.1 K/uL (0.0-0.2); BASO % 0.8 % (0.0-2.0); EOS # 0.1 K/uL (0.0-0.7); EOS % 0.8 % (0.0-4.0); HEMOGLOBIN 11.2 g/dL (12.0-18.0); LYMPH # 2.5 K/uL (1.0-4.3); LYMPH % 22.5 % (20.0-40.0); MEAN CELL VOLUME 77.2 fl (80.0-94.0); MEAN CORPUSCULAR HEMOGLOBIN 24.4 pg (27.0-31.0); MEAN CORPUSCULAR HGB CONC 31.6 g/dL (33.0-37.0); MEAN PLATELET VOLUME 7.7 fl (7.2-11.7); MONO # 1.7 K/uL (0.0-0.8); MONO % 15.2 % (0.0-10.0); NEUT # 6.7 K/uL (1.8-7.0); NEUT % 60.7 % (50.0-75.0); NRBC % 0.2 % (0.0-0.0); RBC 4.6 Mil/uL (4.40-5.90)
[2018-12-01 18:10] LABS: VENOUS BLOOD GAS BASE EXCESS 5.8 mmol/L (0.0-2.0); VENOUS BLOOD GAS PCO2 55 mmHg (40-60); VENOUS BLOOD GAS PO2 24 mm/Hg (30-55); VENOUS BLOOD PH 7.38 (7.32-7.43)
[2018-12-01 18:10] LABS: INR 1.1; PROTHROMBIN TIME 12.7 Seconds (9.8-13.1)
[2018-12-01 18:22] LABS: ALB/GLOB RATIO 1.2 (1.0-2.1); ALBUMIN 3.5 g/dL (3.5-5.0); ALT/SGPT 30 U/L (21-72); AST/SGOT 26 U/L (17-59); BLOOD UREA NITROGEN 22 mg/dl (9-20); CALCIUM 8.2 mg/dL (8.4-10.2); GFR NON-AFRICAN AMERICAN > 60
--- NOTE | 2018-12-01 18:43 | RAD ---
HISTORY: Sepsis Patient COMPARISON: Chest x-ray performed 11/23/18 TECHNIQUE: Chest PA and lateral, 2 views FINDINGS: LUNGS: Subtle infiltrate in the region of the inferior right upper lobe. Mild venous congestion. PLEURA: No significant pleural effusion identified. No definite pneumothorax . CARDIOVASCULAR: Cardiomegaly. Faint atherosclerotic calcifications of an ectatic aorta. OSSEOUS STRUCTURES: Osseous demineralization. Degenerative changes. VISUALIZED UPPER ABDOMEN: Unremarkable. OTHER FINDINGS: None. IMPRESSION: Subtle infiltrate in the region of the inferior right upper lobe. Mild venous congestion. Cardiomegaly.
[2018-12-01 18:59] LABS: URINE BILIRUBIN NEGATIVE (NEGATIVE); URINE BLOOD NEGATIVE (NEGATIVE); URINE CLARITY CLEAR (Clear); URINE COLOR YELLOW (YELLOW); URINE GLUCOSE (UA) NEG (NEGATIVE); URINE LEUKOCYTE ESTERASE NEG Leu/uL (Negative); URINE PROTEIN 30 mg/dL (NEGATIVE); URINE UROBILINOGEN 0.2-1.0 mg/dL (0.2-1.0)
[2018-12-01] MEDS ORDERED: Azithromycin 500 MG in Sodium Chloride 0.9% 250 ML IVPB STA (19:56)
[2018-12-01] MEDS ORDERED: Sodium Chloride 0.9% 1,000 ML IV STA (19:58)
[2018-12-01] MEDS ORDERED: Albuterol-Ipratrop 3 mg / 0.5 (3 ml) UD INH PRN ×2 (20:36→22:45)
--- NOTE | 2018-12-01 20:40 | CP.PCM.HP ---
<Lizett Hernandez - Last Filed: 12/01/18 22:18> History of Present Illness - History of Present Illness History of Present Illness: CC: dyspnea HPI: 68 YO male with PMHx of COPD, NIDDM2, HTN, PE s/p IVC filter-2014 presents to the ED for dyspnea. Patient states that he has had shortness of breath for the past 2 days, worsening today which brought him to the ED. Additionally, he has had increase in cough (productive of brown sputum) and subjective tactile fevers for the past two days. Denies chest pain and palpitations. PMD: None PMH: COPD, NIDDM2, HTN, PE s/p IVC filter-2014 (not on anticoagulation), hx of retroperitoneal hematoma (2014) and psoriasis Allergies: NKDA PSH: IVC filter 2014 Fam: denies SOC: former smoker (30 pack years), former Etoh abuse (reports last drink in 04/2017), denies drug use; homeless, sometimes sleeps in his friends house. Present on Admission - Present on Admission Any Indicators Present on Admission: No Review of Systems - Constitutional Constitutional: Chills, Fever - Cardiovascular Cardiovascular: Dyspnea. absent: Chest Pain - Respiratory Respiratory: Cough, Dyspnea - Gastrointestinal Gastrointestinal: absent: Abdominal Pain Past Patient History - Infectious Disease Hx of Infectious Diseases: None - Tetanus Immunizations Tetanus Immunization: Unknown - Past Medical History & Family History Past Medical History?: Yes - Past Social History Alcohol: None ("quit years ago") Drugs: Denies - CARDIAC Hx Congestive Heart Failure: Yes Hx Hypercholesterolemia: Yes Hx Hypertension: Yes - PULMONARY Hx Asthma: Yes Hx Chronic Obstructive Pulmonary Disease (COPD): Yes Hx Pneumonia: Yes Hx Pulmonary Embolism: Yes - NEUROLOGICAL Hx Neurological Disorder: No - HEENT Hx HEENT Problems: No - RENAL Hx Chronic Kidney Disease: No - ENDOCRINE/METABOLIC Hx Endocrine Disorders: Yes Hx Diabetes Mellitus Type 2: Yes - HEMATOLOGICAL/ONCOLOGICAL Hx Human Immunodeficiency Virus (HIV): No - INTEGUMENTARY Hx Dermatological Problems: Yes Hx Psoriasis: Yes - MUSCULOSKELETAL/RHEUMATOLOGICAL Hx Musculoskeletal Disorders: No Hx Falls: Yes - GASTROINTESTINAL Hx Gastrointestinal Disorders: Yes Other/Comment: GI bleeding - GENITOURINARY/GYNECOLOGICAL Hx Genitourinary Disorders: No - PSYCHIATRIC Hx Psychophysiologic Disorder: No Hx Substance Use: No - SURGICAL HISTORY Hx Surgeries: Yes Other/Comment: IVC Filter - ANESTHESIA Hx Anesthesia: Yes Hx Anesthesia Reactions: No Hx Malignant Hyperthermia: No Meds Allergies/Adverse Reactions: Allergies Allergy/AdvReac Type Severity Reaction Status Date / Time No Known Allergies Allergy Verified 12/01/18 16:57 Physical Exam - Constitutional Appears: Other (NC O2) - Head Exam Head Exam: NORMAL INSPECTION - ENT Exam ENT Exam: Mucous Membranes Moist - Respiratory Exam Respiratory Exam: Prolonged Expiratory Phase, Rhonchi (in the lower lobes L>R), Wheezes (audiable wheezing ), NORMAL BREATHING PATTERN. absent: Respiratory Distress - Cardiovascular Exam Cardiovascular Exam: REGULAR RHYTHM, +S1, +S2 - GI/Abdominal Exam GI & Abdominal Exam: Normal Bowel Sounds, Soft. absent: Tenderness - Extremities Exam Extremities exam: Positive for: normal inspection, pedal edema. Negative for: calf tenderness - Neurological Exam Neurological exam: Alert, Oriented x3 - Skin Additional comments: psoriasis and dry skin noted Results - Vital Signs Recent Vital Signs: Last Vital Signs Temp 97.5 F L 12/01/18 16:56 Pulse 104 H 12/01/18 16:56 Resp 16 12/01/18 16:56 BP 159/77 H 12/01/18 16:56 Pulse Ox 96 12/01/18 19:57 - Labs Result Diagrams: 12/01/18 17:50 12/01/18 17:50 Labs: Laboratory Results - last 24 hr 12/01/18 12/01/18 12/01/18 17:50 17:50 17:50 WBC 11.0 H RBC 4.60 Hgb 11.2 L Hct 35.5 MCV 77.2 L MCH 24.4 L MCHC 31.6 L RDW 22.0 H Plt Count 274 MPV 7.7 Neut % (Auto) 60.7 Lymph % (Auto) 22.5 Craven % (Auto) 15.2 H Eos % (Auto) 0.8 Baso % (Auto) 0.8 Neut # (Auto) 6.7 Lymph # (Auto) 2.5 Craven # (Auto) 1.7 H Eos # (Auto) 0.1 Baso # (Auto) 0.1 PT 12.7 INR 1.1 APTT 27.0 pO2 VBG pH VBG pCO2 VBG HCO3 VBG Total CO2 VBG O2 Sat (Calc) VBG Base Excess VBG Potassium Glucose Lactate FiO2 Sodium 137 Potassium 3.8 Chloride 101 Carbon Dioxide 29 Anion Gap 11 BUN 22 H Creatinine 0.9 Est GFR ( Amer) > 60 Est GFR (Non-Af Amer) > 60 Random Glucose 130 H Calcium 8.2 L Phosphorus 3.5 Magnesium 1.7 Total Bilirubin 0.3 AST 26 ALT 30 Alkaline Phosphatase 55 Total Protein 6.3 Albumin 3.5 Globulin 2.8 Albumin/Globulin Ratio 1.2 Venous Blood Potassium Urine Color Urine Clarity Urine pH Ur Specific Lookout Urine Protein Urine Glucose (UA) Urine Ketones Urine Blood Urine Nitrate Urine Bilirubin Urine Urobilinogen Ur Leukocyte Esterase Urine RBC (Auto) Urine Microscopic WBC Influenza Typ A,B (EIA) 12/01/18 12/01/18 12/01/18 18:07 18:45 19:51 WBC RBC Hgb Hct MCV MCH MCHC RDW Plt Count MPV Neut % (Auto) Lymph % (Auto) Craven % (Auto) Eos % (Auto) Baso % (Auto) Neut # (Auto) Lymph # (Auto) Craven # (Auto) Eos # (Auto) Baso # (Auto) PT INR APTT pO2 24 L VBG pH 7.38 VBG pCO2 55 VBG HCO3 27.9 VBG Total CO2 34.2 H VBG O2 Sat (Calc) 45.6 VBG Base Excess 5.8 H VBG Potassium 3.8 Glucose 131 H Lactate 1.1 FiO2 21.0 Sodium 138.0 Potassium Chloride 104.0 Carbon Dioxide Anion Gap BUN Creatinine Est GFR ( Amer) Est GFR (Non-Af Amer) Random Glucose Calcium Phosphorus Magnesium Total Bilirubin AST ALT Alkaline Phosphatase Total Protein Albumin Globulin Albumin/Globulin Ratio Venous Blood Potassium 3.8 Urine Color Yellow Urine Clarity Clear Urine pH 6.0 Ur Specific Lookout 1.016 Urine Protein 30 Urine Glucose (UA) Neg Urine Ketones Negative Urine Blood Negative Urine Nitrate Negative Urine Bilirubin Negative Urine Urobilinogen 0.2-1.0 Ur Leukocyte Esterase Neg Urine RBC (Auto) 2 Urine Microscopic WBC < 1 Influenza Typ A,B (EIA) Negative for flu a/b Assessment & Plan - Assessment and Plan (Free Text) Assessment: Assessment/Plan: 68 YO male with PMHx of COPD, NIDDM2, HTN, PE s/p IVC filter-2014 is admitted for COPD exacerbation and pneumonia. COPD exacerbation -Acute on chronic -c/w Duonab Q4, IV steroids, Abx -monitor respiratory status -O2 via NC as needed Pneumonia -acute, questionable infiltrate -CXR- Subtle infiltrate in the region of the inferior right upper lobe. Mild venous congestion. -c/w IV abx -sputum culture ordered -procalcitonin pending NIDDM -HbA1c 10/2018 7.0 -c/w metformin -Low sliding scale a needed HTN -controlled -not on any home meds -consider stating PO med DVT prolx -Lovenox SC <Edouard Tafoya - Last Filed: 12/01/18 22:50> Results - Vital Signs Recent Vital Signs: Last Vital Signs Temp 97.8 F 12/01/18 21:49 Pulse 88 12/01/18 21:49 Resp 18 12/01/18 21:49 BP 141/67 12/01/18 21:49 Pulse Ox 97 12/01/18 21:49 - Labs Result Diagrams: 12/01/18 17:50 12/01/18 17:50 Labs: Laboratory Results - last 24 hr 12/01/18 12/01/18 12/01/18 17:50 17:50 17:50 WBC 11.0 H RBC 4.60 Hgb 11.2 L Hct 35.5 MCV 77.2 L MCH 24.4 L MCHC 31.6 L RDW 22.0 H Plt Count 274 MPV 7.7 Neut % (Auto) 60.7 Lymph % (Auto) 22.5 Craven % (Auto) 15.2 H Eos % (Auto) 0.8 Baso % (Auto) 0.8 Neut # (Auto) 6.7 Lymph # (Auto) 2.5 Craven # (Auto) 1.7 H Eos # (Auto) 0.1 Baso # (Auto) 0.1 PT 12.7 INR 1.1 APTT 27.0 pO2 VBG pH VBG pCO2 VBG HCO3 VBG Total CO2 VBG O2 Sat (Calc) VBG Base Excess VBG Potassium Glucose Lactate FiO2 Sodium 137 Potassium 3.8 Chloride 101 Carbon Dioxide 29 Anion Gap 11 BUN 22 H Creatinine 0.9 Est GFR ( Amer) > 60 Est GFR (Non-Af Amer) > 60 Random Glucose 130 H Calcium 8.2 L Phosphorus 3.5 Magnesium 1.7 Total Bilirubin 0.3 AST 26 ALT 30 Alkaline Phosphatase 55 Total Protein 6.3 Albumin 3.5 Globulin 2.8 Albumin/Globulin Ratio 1.2 Venous Blood Potassium Urine Color Urine Clarity Urine pH Ur Specific Lookout Urine Protein Urine Glucose (UA) Urine Ketones Urine Blood Urine Nitrate Urine Bilirubin Urine Urobilinogen Ur Leukocyte Esterase Urine RBC (Auto) Urine Microscopic WBC Influenza Typ A,B (EIA) 12/01/18 12/01/18 12/01/18 18:07 18:45 19:51 WBC RBC Hgb Hct MCV MCH MCHC RDW Plt Count MPV Neut % (Auto) Lymph % (Auto) Craven % (Auto) Eos % (Auto) Baso % (Auto) Neut # (Auto) Lymph # (Auto) Craven # (Auto) Eos # (Auto) Baso # (Auto) PT INR APTT pO2 24 L VBG pH 7.38 VBG pCO2 55 VBG HCO3 27.9 VBG Total CO2 34.2 H VBG O2 Sat (Calc) 45.6 VBG Base Excess 5.8 H VBG Potassium 3.8 Glucose 131 H Lactate 1.1 FiO2 21.0 Sodium 138.0 Potassium Chloride 104.0 Carbon Dioxide Anion Gap BUN Creatinine Est GFR ( Amer) Est GFR (Non-Af Amer) Random Glucose Calcium Phosphorus Magnesium Total Bilirubin AST ALT Alkaline Phosphatase Total Protein Albumin Globulin Albumin/Globulin Ratio Venous Blood Potassium 3.8 Urine Color Yellow Urine Clarity Clear Urine pH 6.0 Ur Specific Lookout 1.016 Urine Protein 30 Urine Glucose (UA) Neg Urine Ketones Negative Urine Blood Negative Urine Nitrate Negative Urine Bilirubin Negative Urine Urobilinogen 0.2-1.0 Ur Leukocyte Esterase Neg Urine RBC (Auto) 2 Urine Microscopic WBC < 1 Influenza Typ A,B (EIA) Negative for flu a/b 12/01/18 21:51 WBC RBC Hgb Hct MCV MCH MCHC RDW Plt Count MPV Neut % (Auto) Lymph % (Auto) Craven % (Auto) Eos % (Auto) Baso % (Auto) Neut # (Auto) Lymph # (Auto) Craven # (Auto) Eos # (Auto) Baso # (Auto) PT INR APTT pO2 131 H VBG pH 7.41 VBG pCO2 41 VBG HCO3 25.9 VBG Total CO2 27.3 VBG O2 Sat (Calc) 99.9 H VBG Base Excess 1.2 VBG Potassium 3.8 Glucose 234 H Lactate 1.2 FiO2 21.0 Sodium 138.0 Potassium Chloride 104.0 Carbon Dioxide Anion Gap BUN Creatinine Est GFR ( Amer) Est GFR (Non-Af Amer) Random Glucose Calcium Phosphorus Magnesium Total Bilirubin AST ALT Alkaline Phosphatase Total Protein Albumin Globulin Albumin/Globulin Ratio Venous Blood Potassium 3.8 Urine Color Urine Clarity Urine pH Ur Specific Lookout Urine Protein Urine Glucose (UA) Urine Ketones Urine Blood Urine Nitrate Urine Bilirubin Urine Urobilinogen Ur Leukocyte Esterase Urine RBC (Auto) Urine Microscopic WBC Influenza Typ A,B (EIA) Attending/Attestation - Attestation I have personally seen and examined this patient.: Yes I have fully participated in the care of the patient.: Yes I have reviewed all pertinent clinical information: Yes Notes (Text): 12/01/18 22:39 I saw, examined and discussed this patient with Dr Hernandez. I agree with the assessment and plan outlined This is a 68 years old male with hx of Asthma, COPD who comes with SOB, cough, wheezes and congestion. The Chest X ray shows a Subtle infiltrate at inferior RUL. We will treat Asthma / COPD exacerbation and pneumonia with Albuterol, Iratropiu m, Methylprednisolone, Antibiotics and Oxygen Treat HTN and Diabetes Mellitus. Follow Procalcitonin Edouard Tafoya MD
[2018-12-01] MEDS ORDERED: Albuterol HFA 90 mcg/actuation (8 g) INH PRN (20:43)
[2018-12-01] MEDS ORDERED: cefTRIAXone (Rocephin) 1 gm Inj ONE (21:28)
[2018-12-01 22:01] LABS: VENOUS BLOOD GAS BASE EXCESS 1.2 mmol/L (0.0-2.0); VENOUS BLOOD GAS PCO2 41 mmHg (40-60); VENOUS BLOOD GAS PO2 131 mm/Hg (30-55); VENOUS BLOOD PH 7.41 (7.32-7.43)
[2018-12-01] MEDS ORDERED: Dextrose 50% SYRINGE Inj (50 ml) IV PRN (22:26)
[2018-12-01] MEDS ORDERED: Glucagon Recombinant 1 mg Inj IM PRN (22:26)
[2018-12-01] MEDS ORDERED: Sodium Chloride 3% for Inhalation 4 ML VIAL.NEB IH PRN (22:30)
[2018-12-01] MEDS ORDERED: Vancomycin 1 g Inj ONE (23:21)
[2018-12-01] MEDS ORDERED: Azithromycin 500 MG IV IVPB ONE (23:23)
[2018-12-02 06:12] LABS: BASO % 0.1 % (0.0-2.0); HEMOGLOBIN 11.7 g/dL (12.0-18.0); LYMPH % 8.2 % (20.0-40.0); MEAN CELL VOLUME 77.2 fl (80.0-94.0); MEAN CORPUSCULAR HEMOGLOBIN 24.2 pg (27.0-31.0); MEAN CORPUSCULAR HGB CONC 31.3 g/dL (33.0-37.0); MONO # 0.4 K/uL (0.0-0.8); MONO % 3.5 % (0.0-10.0); NEUT # 10.5 K/uL (1.8-7.0); NEUT % 88.2 % (50.0-75.0); NRBC % 0.2 % (0.0-0.0); PLATELET COUNT 265 K/uL (130-400); RBC 4.82 Mil/uL (4.40-5.90); RED CELL DISTRIBUTION WIDTH 22.2 % (11.5-14.5); WHITE BLOOD COUNT 11.9 K/uL (4.8-10.8)
[2018-12-02 06:19] LABS: BLOOD UREA NITROGEN 21 mg/dl (9-20); CALCIUM 8.2 mg/dL (8.4-10.2); GFR NON-AFRICAN AMERICAN > 60
[2018-12-02] MEDS: Albuterol-Ipratrop 3 mg / 0.5 (3 ml) UD INH SCH ×5 (08:17→23:18)
[2018-12-02 08:38] LABS: BASOPHIL 1 % (0-2); LYMPHOCYTE 9 % (20-50); MONOCYTE 2 % (0-10); NEUTROPHIL 88 % (42-75); TOTAL CELLS COUNTED 100
[2018-12-02 08:39] LABS: PLATELET ESTIMATE NORMAL (NORMAL)
[2018-12-02 08:40] LABS: ANISOCYTOSIS MODERATE; BURR CELLS SLIGHT; HYPOCHROMIC SLIGHT; LARGE PLATELETS PRESENT; MICROCYTOSIS SLIGHT; OVALOCYTES SLIGHT; POIKILOCYTOSIS SLIGHT; TEARDROP CELLS SLIGHT
[2018-12-02] MEDS: Enoxaparin 40 mg Syringe SC SCH (09:55)
[2018-12-02] MEDS: Insulin Regular 100 units/ml SC SCH ×4 (10:04→21:12)
--- NOTE | 2018-12-02 10:53 | CARD ---
APPROVED REPORT Date of service: 12/01/2018 EKG Measurement Heart [id number] <Conclusion> Normal sinus rhythm Nonspecific ST and T wave abnormality Abnormal ECG
--- NOTE | 2018-12-02 11:13 | CP.PCM.PN ---
<Michelle Askew - Last Filed: 12/02/18 13:46> Subjective - Date & Time of Evaluation Date of Evaluation: 12/02/18 Time of Evaluation: 11:13 - Subjective Subjective: No acute overnight events. Patient wheezing and coughing. Improvement with duonebs and zithromax. continue present management. Objective - Vital Signs/Intake and Output Vital Signs (last 24 hours): Temp Pulse Resp BP Pulse Ox 97.5 F L 86 20 137/83 100 12/02/18 07:58 12/02/18 08:17 12/02/18 07:58 12/02/18 07:58 12/02/18 07:58 - Medications Medications: Current Medications Acetaminophen (Tylenol 325mg Tab) 650 mg PO Q6 PRN PRN Reason: Fever >100.4 F Albuterol/Ipratropium (Duoneb 3 Mg/0.5 Mg (3 Ml) Ud) 3 ml INH RQ4 JEFFREY Last Admin: 12/02/18 08:17 Dose: 3 ml Albuterol/Ipratropium (Duoneb 3 Mg/0.5 Mg (3 Ml) Ud) 3 ml INH RQ2 PRN PRN Reason: Shortness of Breath Azithromycin (Zithromax) 250 mg PO DAILY JEFFREY; Protocol Stop: 12/05/18 09:01 Dextrose (Dextrose 50% Inj) 0 ml IV STAT PRN; Protocol PRN Reason: Hypoglycemia Protocol Dextrose (Glutose 15) 0 gm PO ONCE PRN; Protocol PRN Reason: Hypoglycemia Protocol Enoxaparin Sodium (Lovenox) 40 mg SC DAILY JEFFREY; Protocol Last Admin: 12/02/18 09:55 Dose: 40 mg Glucagon (Glucagen Diagnostic Kit) 0 mg IM STAT PRN; Protocol PRN Reason: Hypoglycemia Protocol Ceftriaxone Sodium 1 gm/ (Sodium Chloride) 100 mls @ 100 mls/hr IVPB DAILY JEFFREY; Protocol Last Admin: 12/02/18 09:54 Dose: 100 mls/hr Ibuprofen (Motrin Tab) 400 mg PO Q6 PRN PRN Reason: Fever >100.4 F Insulin Human Regular (Humulin R) 0 units SC ACHS JEFFREY; Protocol Last Admin: 12/02/18 10:04 Dose: 2 u Metformin HCl (Glucophage) 500 mg PO BID JEFFREY Last Admin: 12/02/18 09:55 Dose: 500 mg Methylprednisolone (Solu-Medrol) 60 mg IVP Q12 JEFFREY Last Admin: 12/02/18 09:55 Dose: 60 mg - Labs Labs: 12/02/18 04:45 12/02/18 04:45 PT 12.7 Seconds (9.8-13.1) 12/01/18 17:50 INR 1.1 12/01/18 17:50 APTT 27.0 Seconds (25.6-37.1) 12/01/18 17:50 - Constitutional Appears: In Acute Distress (mild respiratory) - Head Exam Head Exam: ATRAUMATIC, NORMAL INSPECTION, NORMOCEPHALIC - ENT Exam ENT Exam: Mucous Membranes Moist - Respiratory Exam Respiratory Exam: Prolonged Expiratory Phase, Wheezes (diffusely). absent: Rales, Stridor, NORMAL BREATHING PATTERN - Cardiovascular Exam Cardiovascular Exam: REGULAR RHYTHM, +S1, +S2 - Extremities Exam Extremities Exam: Full ROM - Neurological Exam Neurological Exam: Alert, Awake, CN II-XII Intact - Psychiatric Exam Psychiatric exam: Depressed - Skin Skin Exam: Dry, Intact Assessment and Plan - Assessment and Plan (Free Text) Assessment: 68 YO male with PMHx of COPD, NIDDM2, HTN, PE s/p IVC filter-2014 is admitted for COPD exacerbation and pneumonia. Patient improved with duonebs but still has diffuse wheezing and cough. Will continue present management. He has been afebrile. COPD exacerbation -Acute on chronic -c/w Duoneb Q4, IV steroids, Abx -monitor respiratory status -O2 via NC as needed Pneumonia -acute, questionable infiltrate - patient has hx of blebs noted in upper lobes on previous CTs -CXR- Subtle infiltrate in the region of the inferior right upper lobe. Mild venous congestion. -c/w IV abx -sputum culture ordered -procalcitonin pending NIDDM -HbA1c 10/2018 7.0 -c/w metformin -Low sliding scale a needed HTN -controlled -not on any home meds -consider stating PO med DVT prophylaxis -Lovenox SC <Muriel Lamas - Last Filed: 12/02/18 14:19> Objective - Vital Signs/Intake and Output Vital Signs (last 24 hours): Temp Pulse Resp BP Pulse Ox 97.6 F 84 20 137/75 100 12/02/18 11:44 12/02/18 11:44 12/02/18 11:44 12/02/18 11:44 12/02/18 11:44 - Medications Medications: Current Medications Acetaminophen (Tylenol 325mg Tab) 650 mg PO Q6 PRN PRN Reason: Fever >100.4 F Albuterol/Ipratropium (Duoneb 3 Mg/0.5 Mg (3 Ml) Ud) 3 ml INH RQ4 JEFFREY Last Admin: 12/02/18 11:23 Dose: 3 ml Albuterol/Ipratropium (Duoneb 3 Mg/0.5 Mg (3 Ml) Ud) 3 ml INH RQ2 PRN PRN Reason: Shortness of Breath Azithromycin (Zithromax) 250 mg PO DAILY JEFFREY; Protocol Stop: 12/05/18 09:01 Last Admin: 12/02/18 12:02 Dose: 250 mg Dextrose (Dextrose 50% Inj) 0 ml IV STAT PRN; Protocol PRN Reason: Hypoglycemia Protocol Dextrose (Glutose 15) 0 gm PO ONCE PRN; Protocol PRN Reason: Hypoglycemia Protocol Enoxaparin Sodium (Lovenox) 40 mg SC DAILY JEFFREY; Protocol Last Admin: 12/02/18 09:55 Dose: 40 mg Glucagon (Glucagen Diagnostic Kit) 0 mg IM STAT PRN; Protocol PRN Reason: Hypoglycemia Protocol Ceftriaxone Sodium 1 gm/ (Sodium Chloride) 100 mls @ 100 mls/hr IVPB DAILY JEFFREY; Protocol Last Admin: 12/02/18 09:54 Dose: 100 mls/hr Ibuprofen (Motrin Tab) 400 mg PO Q6 PRN PRN Reason: Fever >100.4 F Insulin Human Regular (Humulin R) 0 units SC ACHS JEFFREY; Protocol Last Admin: 12/02/18 13:33 Dose: 2 u Metformin HCl (Glucophage) 500 mg PO BID JEFFREY Last Admin: 12/02/18 09:55 Dose: 500 mg Methylprednisolone (Solu-Medrol) 60 mg IVP Q12 JEFFREY Last Admin: 12/02/18 09:55 Dose: 60 mg - Labs Labs: 12/02/18 04:45 12/02/18 04:45 PT 12.7 Seconds (9.8-13.1) 12/01/18 17:50 INR 1.1 12/01/18 17:50 APTT 27.0 Seconds (25.6-37.1) 12/01/18 17:50 Attending/Attestation - Attestation I have personally seen and examined this patient.: Yes I have fully participated in the care of the patient.: Yes I have reviewed all pertinent clinical information, including history, physical exam and plan: Yes Notes (Text): Acute COPD exacerbation Pneumonia prob bacterial DM type II - cont IV Solumedrol -RTC Duoneb - cont IV Ceftraixone and Azithro - will keep pt on observation for 1 more day, still with wheezing and SOB
[2018-12-02 16:30] VITALS: RESP 18
[2018-12-03] MEDS: Albuterol-Ipratrop 3 mg / 0.5 (3 ml) UD INH SCH ×4 (04:32→15:34)
[2018-12-03] MEDS: Enoxaparin 40 mg Syringe SC SCH (08:32)
[2018-12-03] MEDS: Insulin Regular 100 units/ml SC SCH ×2 (08:39→12:05)
[2018-12-03] MEDS ORDERED: MethylPREDNISolone 40 mg Vial IVP SCH (09:00)
[2018-12-03] MEDS ORDERED: Albuterol HFA 90 mcg/actuation (8 g) INH PRN (09:30)
[2018-12-03] MEDS ORDERED: FLUTICASONE PROPION/SALMETEROL 232-14 INHALER IH SCH (09:45)
--- NOTE | 2018-12-03 11:20 | CP.PCM.DIS ---
<Michelle Askew - Last Filed: 12/03/18 14:06> Provider - Provider Date of Admission: 12/01/18 19:57 Attending physician: Edouard Tafoya Time Spent in preparation of Discharge (in minutes): 35 Diagnosis - Discharge Diagnosis (1) Community acquired bacterial pneumonia Status: Acute (2) Diabetes mellitus Status: Chronic (3) HTN (hypertension) Status: Chronic (4) Homeless Status: Chronic Hospital Course - Lab Results Lab Results: Micro Results 12/02/18 15:00 Sputum Induced Gram Stain - Final 12/01/18 18:10 Blood Blood Culture - Preliminary NO GROWTH AFTER 24 HOURS 12/01/18 17:50 Blood Blood Culture - Preliminary NO GROWTH AFTER 24 HOURS Most Recent Lab Values WBC 11.9 K/uL (4.8-10.8) H 12/02/18 04:45 RBC 4.82 Mil/uL (4.40-5.90) 12/02/18 04:45 Hgb 11.7 g/dL (12.0-18.0) L 12/02/18 04:45 Hct 37.2 % (35.0-51.0) 12/02/18 04:45 MCV 77.2 fl (80.0-94.0) L 12/02/18 04:45 MCH 24.2 pg (27.0-31.0) L 12/02/18 04:45 MCHC 31.3 g/dL (33.0-37.0) L 12/02/18 04:45 RDW 22.2 % (11.5-14.5) H 12/02/18 04:45 Plt Count 265 K/uL (130-400) 12/02/18 04:45 MPV 8.0 fl (7.2-11.7) 12/02/18 04:45 Neut % (Auto) 88.2 % (50.0-75.0) H 12/02/18 04:45 Lymph % (Auto) 8.2 % (20.0-40.0) L 12/02/18 04:45 Tucker % (Auto) 3.5 % (0.0-10.0) 12/02/18 04:45 Eos % (Auto) 0.0 % (0.0-4.0) 12/02/18 04:45 Baso % (Auto) 0.1 % (0.0-2.0) 12/02/18 04:45 Neut # (Auto) 10.5 K/uL (1.8-7.0) H 12/02/18 04:45 Lymph # (Auto) 1.0 K/uL (1.0-4.3) 12/02/18 04:45 Tucker # (Auto) 0.4 K/uL (0.0-0.8) 12/02/18 04:45 Eos # (Auto) 0.0 K/uL (0.0-0.7) 12/02/18 04:45 Baso # (Auto) 0.0 K/uL (0.0-0.2) 12/02/18 04:45 Neutrophils % (Manual) 88 % (42-75) H 12/02/18 04:45 Lymphocytes % (Manual) 9 % (20-50) L 12/02/18 04:45 Monocytes % (Manual) 2 % (0-10) 12/02/18 04:45 Basophils % (Manual) 1 % (0-2) 12/02/18 04:45 Platelet Estimate Normal (NORMAL) 12/02/18 04:45 Large Platelets Present 12/02/18 04:45 Hypochromasia (manual) Slight 12/02/18 04:45 Poikilocytosis (manual Slight 12/02/18 04:45 Anisocytosis (manual) Moderate 12/02/18 04:45 Microcytosis (manual) Slight 12/02/18 04:45 Macrocytosis (manual) Slight 12/02/18 04:45 Tear Drop Cells Slight 12/02/18 04:45 Ovalocytes Slight 12/02/18 04:45 Aurora Cells Slight 12/02/18 04:45 PT 12.7 Seconds (9.8-13.1) 12/01/18 17:50 INR 1.1 12/01/18 17:50 APTT 27.0 Seconds (25.6-37.1) 12/01/18 17:50 pO2 131 mm/Hg (30-55) H 12/01/18 21:51 VBG pH 7.41 (7.32-7.43) 12/01/18 21:51 VBG pCO2 41 mmHg (40-60) 12/01/18 21:51 VBG HCO3 25.9 mmol/L 12/01/18 21:51 VBG Total CO2 27.3 mmol/L (22-28) 12/01/18 21:51 VBG O2 Sat (Calc) 99.9 % (40-65) H 12/01/18 21:51 VBG Base Excess 1.2 mmol/L (0.0-2.0) 12/01/18 21:51 VBG Potassium 3.8 mmol/L (3.6-5.2) 12/01/18 21:51 Sodium 138.0 mmol/L (132-148) 12/01/18 21:51 Chloride 104.0 mmol/L (98-107) 12/01/18 21:51 Glucose 234 mg/dL (75-110) H 12/01/18 21:51 Lactate 1.2 mmol/L (0.7-2.1) 12/01/18 21:51 FiO2 21.0 % 12/01/18 21:51 Sodium 138 mmol/l (132-148) 12/02/18 04:45 Potassium 4.4 MMOL/L (3.6-5.0) 12/02/18 04:45 Chloride 102 mmol/L (98-107) 12/02/18 04:45 Carbon Dioxide 28 mmol/L (22-30) 12/02/18 04:45 Anion Gap 12 (10-20) 12/02/18 04:45 BUN 21 mg/dl (9-20) H 12/02/18 04:45 Creatinine 0.8 mg/dl (0.8-1.5) 12/02/18 04:45 Est GFR ( Amer) > 60 12/02/18 04:45 Est GFR (Non-Af Amer) > 60 12/02/18 04:45 POC Glucose (mg/dL) 384 mg/dL (65-110) H 12/03/18 06:38 Random Glucose 249 mg/dL (75-110) H 12/02/18 04:45 Calcium 8.2 mg/dL (8.4-10.2) L 12/02/18 04:45 Phosphorus 3.5 mg/dl (2.5-4.5) 12/01/18 17:50 Magnesium 1.7 MG/DL (1.6-2.3) 12/01/18 17:50 Total Bilirubin 0.3 mg/dl (0.2-1.3) 12/01/18 17:50 AST 26 U/L (17-59) 12/01/18 17:50 ALT 30 U/L (21-72) 12/01/18 17:50 Alkaline Phosphatase 55 U/L (38-126) 12/01/18 17:50 Total Protein 6.3 G/DL (6.3-8.2) 12/01/18 17:50 Albumin 3.5 g/dL (3.5-5.0) 12/01/18 17:50 Globulin 2.8 gm/dL (2.2-3.9) 12/01/18 17:50 Albumin/Globulin Ratio 1.2 (1.0-2.1) 12/01/18 17:50 Procalcitonin < 0.05 NG/ML (0.19-0.49) L 12/01/18 05:30 Venous Blood Potassium 3.8 mmol/L (3.6-5.2) 12/01/18 21:51 Urine Color Yellow (YELLOW) 12/01/18 18:45 Urine Clarity Clear (Clear) 12/01/18 18:45 Urine pH 6.0 (5.0-8.0) 12/01/18 18:45 Ur Specific [place] 1.016 (1.003-1.030) 12/01/18 18:45 Urine Protein 30 mg/dL (NEGATIVE) 12/01/18 18:45 Urine Glucose (UA) Neg mg/dL (NEGATIVE) 12/01/18 18:45 Urine Ketones Negative mg/dL (NEGATIVE) 12/01/18 18:45 Urine Blood Negative (NEGATIVE) 12/01/18 18:45 Urine Nitrate Negative (NEGATIVE) 12/01/18 18:45 Urine Bilirubin Negative (NEGATIVE) 12/01/18 18:45 Urine Urobilinogen 0.2-1.0 mg/dL (0.2-1.0) 12/01/18 18:45 Ur Leukocyte Esterase Neg Chad/uL (Negative) 12/01/18 18:45 Urine RBC (Auto) 2 /hpf (0-3) 12/01/18 18:45 Urine Microscopic WBC < 1 /hpf (0-5) 05/16/19 18:45 Influenza Typ A,B (EIA) Negative for flu a/b (NEGATIVE) 12/01/18 19:51 - Hospital Course Hospital Course: 68 year old male with PMHx of COPD, NIDDM2, HTN, PE s/p IVC filter-2014 is admitted for COPD exacerbation and pneumonia. Patients symptoms improved with IV antibiotics and IV steroids. PAtient saturating 100% on room air, wheezing improved, cough persists. Patient is stable for discharge home with continued antibiotic treatment and steroid taper. Start advair, continue albuterol PRN. Discharge Exam - Head Exam Head Exam: ATRAUMATIC, NORMAL INSPECTION, NORMOCEPHALIC - Eye Exam Eye Exam: Normal appearance - ENT Exam ENT Exam: Mucous Membranes Moist - Respiratory Exam Respiratory Exam: Prolonged Expiratory Phase, Wheezes (diffusely). absent: Respiratory Distress - Cardiovascular Exam Cardiovascular Exam: REGULAR RHYTHM - GI/Abdominal Exam GI & Abdominal Exam: Normal Bowel Sounds, Soft. absent: Distended - Neurological Exam Neurological exam: Alert - Psychiatric Exam Psychiatric exam: Normal Affect, Normal Mood - Skin Skin Exam: Dry Discharge Plan - Discharge Medications Prescriptions: RX: Albuterol HFA [Ventolin HFA 90 mcg/actuation (8 g)] 2 puff INH RQ6 PRN #1 inhaler PRN Reason: Shortness Of Breath RX: Azithromycin [Zithromax] 500 mg PO DAILY #4 tablet Cefdinir [Omnicef] 300 mg PO BID #8 cap RX: Fluticasone Propion/Salmeterol [Airduo Resp. Fluticasone-Salmeterol 232-14] 1 puff IH Q12 #1 inhaler RX: metFORMIN [glucOPHAGE] 500 mg PO BID #60 tab Methylprednisolone [Medrol Dose Pack (21 tabs)] 4 mg PO ASDIR #21 mg - Follow Up Plan Condition: GUARDED Disposition: HOME/ ROUTINE <Muriel Lamas - Last Filed: 12/03/18 15:49> Provider - Provider Date of Admission: 12/01/18 19:57 Attending physician: Edouard Tafoya [facility] Course - Lab Results Lab Results: Micro Results 12/01/18 18:45 Urine,Clean Catch Urine Culture - Final No Growth (<1,000 CFU/ML) 12/02/18 15:00 Sputum Induced Gram Stain - Final 12/01/18 18:10 Blood Blood Culture - Preliminary NO GROWTH AFTER 24 HOURS 12/01/18 17:50 Blood Blood Culture - Preliminary NO GROWTH AFTER 24 HOURS Most Recent Lab Values WBC 11.9 K/uL (4.8-10.8) H 12/02/18 04:45 RBC 4.82 Mil/uL (4.40-5.90) 12/02/18 04:45 Hgb 11.7 g/dL (12.0-18.0) L 12/02/18 04:45 Hct 37.2 % (35.0-51.0) 12/02/18 04:45 MCV 77.2 fl (80.0-94.0) L 12/02/18 04:45 MCH 24.2 pg (27.0-31.0) L 12/02/18 04:45 MCHC 31.3 g/dL (33.0-37.0) L 12/02/18 04:45 RDW 22.2 % (11.5-14.5) H 12/02/18 04:45 Plt Count 265 K/uL (130-400) 12/02/18 04:45 MPV 8.0 fl (7.2-11.7) 12/02/18 04:45 Neut % (Auto) 88.2 % (50.0-75.0) H 12/02/18 04:45 Lymph % (Auto) 8.2 % (20.0-40.0) L 12/02/18 04:45 Tucker % (Auto) 3.5 % (0.0-10.0) 12/02/18 04:45 Eos % (Auto) 0.0 % (0.0-4.0) 12/02/18 04:45 Baso % (Auto) 0.1 % (0.0-2.0) 12/02/18 04:45 Neut # (Auto) 10.5 K/uL (1.8-7.0) H 12/02/18 04:45 Lymph # (Auto) 1.0 K/uL (1.0-4.3) 12/02/18 04:45 Tucker # (Auto) 0.4 K/uL (0.0-0.8) 12/02/18 04:45 Eos # (Auto) 0.0 K/uL (0.0-0.7) 12/02/18 04:45 Baso # (Auto) 0.0 K/uL (0.0-0.2) 12/02/18 04:45 Neutrophils % (Manual) 88 % (42-75) H 12/02/18 04:45 Lymphocytes % (Manual) 9 % (20-50) L 12/02/18 04:45 Monocytes % (Manual) 2 % (0-10) 12/02/18 04:45 Basophils % (Manual) 1 % (0-2) 12/02/18 04:45 Platelet Estimate Normal (NORMAL) 12/02/18 04:45 Large Platelets Present 12/02/18 04:45 Hypochromasia (manual) Slight 12/02/18 04:45 Poikilocytosis (manual Slight 12/02/18 04:45 Anisocytosis (manual) Moderate 12/02/18 04:45 Microcytosis (manual) Slight 12/02/18 04:45 Macrocytosis (manual) Slight 12/02/18 04:45 Tear Drop Cells Slight 12/02/18 04:45 Ovalocytes Slight 12/02/18 04:45 Brianna Cells Slight 12/02/18 04:45 PT 12.7 Seconds (9.8-13.1) 12/01/18 17:50 INR 1.1 12/01/18 17:50 APTT 27.0 Seconds (25.6-37.1) 12/01/18 17:50 pO2 131 mm/Hg (30-55) H 12/01/18 21:51 VBG pH 7.41 (7.32-7.43) 12/01/18 21:51 VBG pCO2 41 mmHg (40-60) 12/01/18 21:51 VBG HCO3 25.9 mmol/L 12/01/18 21:51 VBG Total CO2 27.3 mmol/L (22-28) 12/01/18 21:51 VBG O2 Sat (Calc) 99.9 % (40-65) H 12/01/18 21:51 VBG Base Excess 1.2 mmol/L (0.0-2.0) 12/01/18 21:51 VBG Potassium 3.8 mmol/L (3.6-5.2) 12/01/18 21:51 Sodium 138.0 mmol/L (132-148) 12/01/18 21:51 Chloride 104.0 mmol/L (98-107) 12/01/18 21:51 Glucose 234 mg/dL (75-110) H 12/01/18 21:51 Lactate 1.2 mmol/L (0.7-2.1) 12/01/18 21:51 FiO2 21.0 % 12/01/18 21:51 Sodium 138 mmol/l (132-148) 12/02/18 04:45 Potassium 4.4 MMOL/L (3.6-5.0) 12/02/18 04:45 Chloride 102 mmol/L (98-107) 12/02/18 04:45 Carbon Dioxide 28 mmol/L (22-30) 12/02/18 04:45 Anion Gap 12 (10-20) 12/02/18 04:45 BUN 21 mg/dl (9-20) H 12/02/18 04:45 Creatinine 0.8 mg/dl (0.8-1.5) 12/02/18 04:45 Est GFR ( Amer) > 60 12/02/18 04:45 Est GFR (Non-Af Amer) > 60 12/02/18 04:45 POC Glucose (mg/dL) 398 mg/dL (65-110) H 12/03/18 11:43 Random Glucose 249 mg/dL (75-110) H 12/02/18 04:45 Calcium 8.2 mg/dL (8.4-10.2) L 12/02/18 04:45 Phosphorus 3.5 mg/dl (2.5-4.5) 12/01/18 17:50 Magnesium 1.7 MG/DL (1.6-2.3) 12/01/18 17:50 Total Bilirubin 0.3 mg/dl (0.2-1.3) 12/01/18 17:50 AST 26 U/L (17-59) 12/01/18 17:50 ALT 30 U/L (21-72) 12/01/18 17:50 Alkaline Phosphatase 55 U/L (38-126) 12/01/18 17:50 Total Protein 6.3 G/DL (6.3-8.2) 12/01/18 17:50 Albumin 3.5 g/dL (3.5-5.0) 12/01/18 17:50 Globulin 2.8 gm/dL (2.2-3.9) 12/01/18 17:50 Albumin/Globulin Ratio 1.2 (1.0-2.1) 12/01/18 17:50 Procalcitonin < 0.05 NG/ML (0.19-0.49) L 12/01/18 05:30 Venous Blood Potassium 3.8 mmol/L (3.6-5.2) 12/01/18 21:51 Urine Color Yellow (YELLOW) 12/01/18 18:45 Urine Clarity Clear (Clear) 12/01/18 18:45 Urine pH 6.0 (5.0-8.0) 12/01/18 18:45 Ur Specific [place] 1.016 (1.003-1.030) 12/01/18 18:45 Urine Protein 30 mg/dL (NEGATIVE) 12/01/18 18:45 Urine Glucose (UA) Neg mg/dL (NEGATIVE) 12/01/18 18:45 Urine Ketones Negative mg/dL (NEGATIVE) 12/01/18 18:45 Urine Blood Negative (NEGATIVE) 12/01/18 18:45 Urine Nitrate Negative (NEGATIVE) 12/01/18 18:45 Urine Bilirubin Negative (NEGATIVE) 12/01/18 18:45 Urine Urobilinogen 0.2-1.0 mg/dL (0.2-1.0) 12/01/18 18:45 Ur Leukocyte Esterase Neg Chad/uL (Negative) 12/01/18 18:45 Urine RBC (Auto) 2 /hpf (0-3) 12/01/18 18:45 Urine Microscopic WBC < 1 /hpf (0-5) 12/01/18 18:45 Influenza Typ A,B (EIA) Negative for flu a/b (NEGATIVE) 12/01/18 19:51 Attending/Attestation - Attestation I have personally seen and examined this patient.: Yes I have fully participated in the care of the patient.: Yes I have reviewed all pertinent clinical information, including history, physical exam and plan: Yes Notes (Text): Acute COPD exacerbation Pneumonia prob bacterial DM type II - Pt received IV Solumedrol and RTC Duoneb - received IV Ceftriaxone and Azithro - Pt is afebrile, cough, wheezing and SOB improved - will d/c pt home on PO Medrol dose cheryl, steroid inhalers and Albuterol inhaler - change abx to PO Omnicef and Azithro - ff up FP clinic next wk
[2018-12-03 16:29] VITALS: BP 143/67; PULSE 107; TEMP 98.4
[2018-12-04 20:06] VITALS: O2SAT 96
== END 2018-12-03 17:45 | disposition home or self-care (01) ==
LOC: H.ER 16:27 → H.ERHOLD 19:57 → INTOOBSV 19:57 → H.TEL 23:39
PROVIDERS: ADMIT Internal Medicine; ATTEND Internal Medicine
DX: J15.9 Unspecified bacterial pneumonia (principal); J44.0 Chronic obstructive pulmonary disease with (acute) lower respiratory infection; J44.1 Chronic obstructive pulmonary disease with (acute) exacerbation; Z59.0 Homelessness; Z79.84 Long term (current) use of oral hypoglycemic drugs; Z86.711 Personal history of pulmonary embolism; Z87.01 Personal history of pneumonia (recurrent); Z87.891 Personal history of nicotine dependence; Z95.828 Presence of other vascular implants and grafts; F10.10 Alcohol abuse, uncomplicated; L40.9 Psoriasis, unspecified; E11.9 Type 2 diabetes mellitus without complications; Z79.51 Long term (current) use of inhaled steroids; E78.00 Pure hypercholesterolemia, unspecified; I10 Essential (primary) hypertension
CPT/HCPCS: 36415; 71046; 80048; 80053; 81003; 82803; 82948; 83735; 84100; 84145; 85025; 85610; 85730; 87040; 87070; 87086; 87804; 93005; 94640; 96365; 96366; 96372; 96375; 96376; 99285; G0378; J0456; J0696; J1650; J2930; J7050